=== PATIENT | female | born 1965 | race Caucasian/White ===

== ENCOUNTER 2016-03-31 13:11 | Emergency (ER) | payer OTHER ==
--- NOTE | 2016-03-31 14:16 | ED ---
General Adult HPI - General Chief complaint: Skin/Abscess/Foreign Body Stated complaint: hand pain/swollen Time Seen by Provider: 03/31/16 14:09 Source: patient, RN notes reviewed Mode of arrival: ambulatory Limitations: no limitations - History of Present Illness Initial comments: This is a 50-year-old female presents with right hand redness and swelling 2 days. Patient denies any known injury or hand. Patient states she woke up noticing erythema to the right hand. Patient states the last thing she was doing before she noticed the redness was moving boxes at her basement. Patient states the pain is worse with flexion and extension of the wrist. Patient denies noticing any insect bite. Patient denies any history of MRSA. Patient states she had a stroke in April and has had weakness in the right hand since then but this is not worse. Patient denies any known ALLERGIES except for to Dilaudid. Patient denies any recent fever, chills, shortness breath, chest pain, abdominal pain, nausea/vomiting/diarrhea, back pain, hematuria, headache , or visual changes, or any other complaints. - Related Data Home Medications Medication Instructions Recorded Confirmed OLANZapine [ZyPREXA] 20 mg PO HS 10/22/15 03/31/16 Topiramate [Topamax] 100 mg PO QAM 10/22/15 03/31/16 Cholecalciferol [Vitamin D3] 1,000 unit PO DAILY 02/17/16 03/31/16 Gabapentin [Neurontin] 300 mg PO TID 02/17/16 03/31/16 Insulin Glargine [Lantus] 30 unit SQ BID 02/17/16 03/31/16 metFORMIN HCL [Glucophage] 500 mg PO TID 02/17/16 03/31/16 Venlafaxine HCl [Effexor XR] 300 mg PO QAM 03/31/16 03/31/16 Previous Rx's Medication Instructions Recorded Cephalexin [Keflex] 500 mg PO Q6H 7 Days 03/31/16 Allergies Allergy/AdvReac Type Severity Reaction Status Date / Time hydromorphone HCl Allergy Unknown Rash/Hives Verified 03/31/16 14:03 [From Dilaudid] Review of Systems ROS Statement: Those systems with pertinent positive or pertinent negative responses have been documented in the HPI. ROS Other: All systems not noted in ROS Statement are negative. Past Medical History Past Medical History: CVA/TIA, Diabetes Mellitus, Hyperlipidemia, Hypertension Additional Past Medical History / Comment(s): alcoholism, HEPATITIS, gestational diabetes, stroke in 04/2015 with right sided weakness History of Any Multi-Drug Resistant Organisms: None Reported Past Surgical History: Cholecystectomy, Tonsillectomy, Tubal Ligation Additional Past Surgical History / Comment(s): eshophogus surgery Past Anesthesia/Blood Transfusion Reactions: No Reported Reaction Past Psychological History: Bipolar, Depression, PTSD Smoking Status: Current every day smoker Past Alcohol Use History: None Reported Past Drug Use History: None Reported - Past Family History Mother Additional Family Medical History / Comment(s): "[place] hunington disease" General Exam - General Exam Comments Initial Comments: General: The patient is awake and alert, in no distress, and does not appear acutely ill. Neck: The neck is supple, there is no tenderness or JVD. Cardiovascular: There is a regular rate and rhythm. No murmur, rub or gallop is appreciated. Respiratory: Lungs are clear to auscultation, respirations are non-labored, breath sounds are equal. No wheezes, stridor, rales, or rhonchi. Musculoskeletal: Limited range of motion with flexion and extension of the right wrist. Patient is able to ask next in the digits of the right hand. He is tenderness to palpation over the dorsal aspect of the right hand along the lateral and midline aspects of the right hand. There is erythema localized swelling to these areas as well. There is also erythema and tenderness over the dorsal aspect of the right wrist. Strength 4/5 and Sensation intact. Radial pulses 2+ bilaterally. Capillary refill is normal at less than 2 seconds. Neurological: A&O x 3. CN II-XII intact, There are no obvious motor or sensory deficits. Coordination appears grossly intact. Speech is normal. Skin: There is erythema, swelling, warmth and tenderness to the dorsal aspect of the right wrist and right hand extending to the MCP joints of the third through fifth digits. Skin is warm and dry and no rashes or lesions are noted. Psychiatric: Normal mood and affect. Limitations: no limitations Course Vital Signs 03/31/16 13:43 Temperature 99 F Pulse Rate 74 Respiratory 20 Rate Blood Pressure 125/79 O2 Sat by Pulse 96 Oximetry Medical Decision Making - Medical Decision Making Physical 1-year-old female presents with right hand pain 2 days. On physical exam there is erythema, swelling, warmth and tenderness to the dorsal aspect of the right wrist and right hand extending to the MCP joints of the third through fifth digits. Patient is able to flex and extend the right wrist but with limited range of motion. Strength is 4/5, she has had weakness to the right hand since her past stroke in April 2015. Sensation is intact and radial pulses are 2+ bilaterally. Capillary refill is less than 2 seconds. She is afebrile in the EC today. X-ray of the right hand was done and reviewed showing: No definite acute fracture or dislocation if symptoms persist, follow-up study in 7-10 days would be suggested. Reported by Dr. Segovia. Discussed with patient the results and the patient will be put on a course of Keflex for cellulitis. Redness was traced with a black marker. Discussed over- the-counter Tylenol and/or Motrin as needed for any pain. Asked to rest, ice/ warm compresses, elevation to the right hand. Discussed return parameters. Discussed that patient should follow up with PCP in one to 2 days or return to the [facility] for any worsening symptoms or for any further concerns. Patient was receptive to this plan and patient will be discharged home. Disposition Clinical Impression: Cellulitis Disposition: HOME SELF-CARE Condition: Good Instructions: Cellulitis (ED) Additional Instructions: Please rest, ice/warm compresses, elevate. Please finish entire course of antibiotics. Please use [id number] Tylenol or Motrin as needed for any pain. Please use medication as discussed. Please follow-up with family doctor in the next 2 days of symptoms have not improved. Please return to emergency room if the symptoms increase or worsen or for any other concerns. Prescriptions: Cephalexin [Keflex] 500 mg PO Q6H 7 Days Referrals: None,Stated [Primary Care Provider] - 1-2 days Time of Disposition: 14:45
--- NOTE | 2016-03-31 14:28 | XR ---
EXAMINATION TYPE: XR hand complete RT DATE OF EXAM: 03/31/2016 2:23 PM COMPARISON: NONE HISTORY: Right FINDINGS: The osseous structures are intact. The joint spaces are preserved and there is no acute fracture or dislocation. Diffuse osteopenia noted. IMPRESSION: 1. No definite acute fracture or dislocation if symptoms persist, follow-up study in 7 to 10 days wo uld be suggested
[2016-03-31 14:54] VITALS: RESP 20
[2016-03-31 15:15] VITALS: BP 124/78; PULSE 71; TEMP 98
== END 2016-03-31 15:15 | disposition home or self-care (01) ==
LOC: EC 13:11
DX: L03.113 Cellulitis of right upper limb (principal); I69.351 Hemiplegia and hemiparesis following cerebral infarction affecting right dominant side; Z79.899 Other long term (current) drug therapy; Z79.4 Long term (current) use of insulin; Z79.84 Long term (current) use of oral hypoglycemic drugs; Z88.5 Allergy status to narcotic agent; E11.9 Type 2 diabetes mellitus without complications; F31.9 Bipolar disorder, unspecified; F43.10 Post-traumatic stress disorder, unspecified; F17.200 Nicotine dependence, unspecified, uncomplicated
CPT/HCPCS: 99283

== ENCOUNTER 2016-06-14 19:44 | Inpatient (IN) | payer OTHER ==
[2016-06-14] MEDS: MIDAZOLAM (PF) 1 MG/ML 5 ML VIAL IV STA ×4 (19:57→21:08)
[2016-06-14] MEDS ORDERED: SODIUM CHLORIDE 0.9% 1,000 ML IV STA (20:01)
[2016-06-14] MEDS ORDERED: SODIUM CHLORIDE 0.9% 500 ML IV STA (20:01)
--- NOTE | 2016-06-14 20:07 | ED ---
General Adult HPI - General Chief complaint: Altered Mental Status Stated complaint: unresponsive Time Seen by Provider: 06/14/16 20:01 Source: old records reviewed Mode of arrival: ambulatory Limitations: altered mental status - History of Present Illness Initial comments: This is a Letty Houser dropped off in emergency room after she was found unresponsive at [facility], no history is able to be obtained, Haitians brought in cyanotic apneic and pulseless - Related Data Allergies Allergy/AdvReac Type Severity Reaction Status Date / Time Unable to Assess Allergy Verified 06/14/16 20:06 Review of Systems ROS Statement: Those systems with pertinent positive or pertinent negative responses have been documented in the HPI. ROS Other: All systems not noted in ROS Statement are negative. Past Medical History Past Medical History: Unable to Obtain History of Any Multi-Drug Resistant Organisms: None Reported Past Surgical History: Unable to Obtain Past Psychological History: No Psychological Hx Reported Smoking Status: Unknown if ever smoked Past Drug Use History: Heroin General Exam Limitations: altered mental status General appearance: lethargic, obtunded, in distress Head exam: Present: atraumatic, normocephalic, normal inspection Eye exam: Present: other ([place]) ENT exam: Present: normal exam, mucous membranes moist Neck exam: Present: normal inspection. Absent: tenderness, meningismus, lymphadenopathy Respiratory exam: Present: respiratory distress, other (Apnea). Absent: wheezes , rales, rhonchi, stridor Cardiovascular Exam: Present: regular rate, normal rhythm, normal heart sounds. Absent: systolic murmur, diastolic murmur, rubs, gallop, clicks GI/Abdominal exam: Present: soft, normal bowel sounds. Absent: distended, tenderness, guarding, rebound, rigid Extremities exam: Present: normal inspection, full ROM, normal capillary refill. Absent: tenderness, pedal edema, joint swelling, calf tenderness Back exam: Present: normal inspection Neurological exam: Present: altered Psychiatric exam: Present: depressed Skin exam: Present: cyanosis, pallor, mottled Course Vital Signs 06/14/16 06/14/16 06/14/16 19:50 20:14 20:31 Temperature 97.8 F 97.1 F L Pulse Rate 94 105 H 94 Respiratory 6 L 14 14 Rate Blood Pressure 169/85 122/58 90/54 O2 Sat by Pulse 99 100 100 Oximetry 06/14/16 20:48 Temperature Pulse Rate 98 Respiratory 14 Rate Blood Pressure 114/66 O2 Sat by Pulse 100 Oximetry - Reevaluation(s) Reevaluation #1: 06/14/16 20:04 Patient apneic, cyanotic upon arrival, patient had CPR initiated here in the emergency room secondary loss of pulse and apnea. Patient was intubated as she was not breathing. Reevaluation #2: 06/14/16 20:05 Patient did start to get circulation back with bagging and intubation as well as CPR Reevaluation #3: 06/14/16 20:05 Patient is seem initial response to Narcan Reevaluation #4: 06/14/16 20:57 Patient is not completely awaking the Narcan to be safe to be. Extubate EKG Findings - EKG Comments: EKG Findings:: EKG shows normal sinus rhythm rate of 94, CO 160, QRS 96, QTc 462 Procedures - Intubation Time Out Performed: Yes Laryngoscope: Bala Size: 4 ET Tube Size: 7 ET Tube Uncuffed: Yes Tube Secured Location: teeth Tube Placement Confirmation: visualized tube passing through cords, equal breath sounds bilaterally, no breath sounds over epigastrium Patient Tolerated Procedure: well Intubation Complications: none Medical Decision Making - Medical Decision Making Unknown aged female coming in status post suspected overdose, suspected heroin overdose, patient was apneic and cardiopulmonary arrest and will be admitted for continued monitoring and ICU care, hemodynamic support. - Lab Data Result diagrams: 06/14/16 20:00 06/14/16 20:00 Lab Results 06/14/16 06/14/16 06/14/16 Range/Units 19:50 20:00 20:00 WBC 16.1 H (3.8-10.6) k/uL RBC 4.79 (3.80-5.40) m/uL Hgb 15.0 (11.4-16.0) gm/dL Hct 45.8 (34.0-46.0) % MCV 95.6 (80.0-100.0) fL MCH 31.4 (25.0-35.0) pg MCHC 32.8 (31.0-37.0) g/dL RDW 14.3 (11.5-15.5) % Plt Count 275 (150-450) k/uL Neutrophils % 38 % Lymphocytes % 51 % Monocytes % 5 % Eosinophils % 2 % Basophils % 1 % Neutrophils # 6.1 (1.3-7.7) k/uL Lymphocytes # 8.1 H (1.0-4.8) k/uL Monocytes # 0.8 (0-1.0) k/uL Eosinophils # 0.4 (0-0.7) k/uL Basophils # 0.1 (0-0.2) k/uL PT (9.0-12.0) sec INR (<1.1) APTT (22.0-30.0) sec Sample Site ABG pH (7.35-7.45) ABG pCO2 (35-45) mmHg ABG pO2 (83-108) mmHg ABG HCO3 (21-25) mmol/L ABG Total CO2 (19-24) mmol/L ABG O2 Saturation (94-97) % ABG Base Excess mmol/L FiO2 % Sodium (137-145) mmol/L Potassium (3.5-5.1) mmol/L Chloride (98-107) mmol/L Carbon Dioxide (22-30) mmol/L Anion Gap mmol/L BUN (7-17) mg/dL Creatinine (0.52-1.04) mg/dL Est GFR (MDRD) Af Amer (>60 ml/min/1.73 sqM) Est GFR (MDRD) Non-Af (>60 ml/min/1.73 sqM) Glucose (74-99) mg/dL POC Glucose (mg/dL) 181 H (75-99) mg/dL POC Glu Assistant Professor Of Psychology ID Ani Barrera Calcium (8.4-10.2) mg/dL Phosphorus (2.5-4.5) mg/dL Magnesium (1.6-2.3) mg/dL Total Bilirubin (0.2-1.3) mg/dL AST (14-36) U/L ALT (9-52) U/L Alkaline Phosphatase (38-126) U/L Total Creatine Kinase 130 (30-135) U/L CK-MB (CK-2) 2.1 (0.0-2.4) ng/mL CK-MB (CK-2) Rel Index 1.6 Troponin I <0.012 (0.000-0.034) ng/mL Total Protein (6.3-8.2) g/dL Albumin (3.5-5.0) g/dL Urine Color Urine Appearance (Clear) Urine pH (5.0-8.0) Ur Specific [place] (1.001-1.035) Urine Protein (Negative) Urine Glucose (UA) (Negative) Urine Ketones (Negative) Urine Blood (Negative) Urine Nitrite (Negative) Urine Bilirubin (Negative) Urine Urobilinogen (<2.0) mg/dL Ur Leukocyte Esterase (Negative) Urine RBC (0-5) /hpf Urine WBC (0-5) /hpf Ur Squamous Epith Cells (0-4) /hpf Amorphous Sediment (None) /hpf Hyaline Casts (0-2) /lpf Urine Mucus (None) /hpf 06/14/16 06/14/16 06/14/16 Range/Units 20:00 20:00 20:15 WBC (3.8-10.6) k/uL RBC (3.80-5.40) m/uL Hgb (11.4-16.0) gm/dL Hct (34.0-46.0) % MCV (80.0-100.0) fL MCH (25.0-35.0) pg MCHC (31.0-37.0) g/dL RDW (11.5-15.5) % Plt Count (150-450) k/uL Neutrophils % % Lymphocytes % % Monocytes % % Eosinophils % % Basophils % % Neutrophils # (1.3-7.7) k/uL Lymphocytes # (1.0-4.8) k/uL Monocytes # (0-1.0) k/uL Eosinophils # (0-0.7) k/uL Basophils # (0-0.2) k/uL PT 10.7 (9.0-12.0) sec INR 1.1 (<1.1) APTT 25.9 (22.0-30.0) sec Sample Site LRA ABG pH 7.11 L* (7.35-7.45) ABG pCO2 53 H (35-45) mmHg ABG pO2 329 H (83-108) mmHg ABG HCO3 16 L (21-25) mmol/L ABG Total CO2 18 L (19-24) mmol/L ABG O2 Saturation 99.8 H (94-97) % ABG Base Excess 11.6 mmol/L FiO2 100 % Sodium 138 (137-145) mmol/L Potassium 4.6 (3.5-5.1) mmol/L Chloride 102 (98-107) mmol/L Carbon Dioxide 14 L (22-30) mmol/L Anion Gap 22 mmol/L BUN 16 (7-17) mg/dL Creatinine 0.83 (0.52-1.04) mg/dL Est GFR (MDRD) Af Amer >60 (>60 ml/min/1.73 sqM) Est GFR (MDRD) Non-Af >60 (>60 ml/min/1.73 sqM) Glucose 177 H (74-99) mg/dL POC Glucose (mg/dL) (75-99) mg/dL POC Glu Assistant Professor Of Psychology ID Calcium 8.8 (8.4-10.2) mg/dL Phosphorus 6.4 H (2.5-4.5) mg/dL Magnesium 1.8 (1.6-2.3) mg/dL Total Bilirubin 0.8 (0.2-1.3) mg/dL AST 111 H (14-36) U/L ALT 90 H (9-52) U/L Alkaline Phosphatase 183 H (38-126) U/L Total Creatine Kinase (30-135) U/L CK-MB (CK-2) (0.0-2.4) ng/mL CK-MB (CK-2) Rel Index Troponin I (0.000-0.034) ng/mL Total Protein 7.4 (6.3-8.2) g/dL Albumin 4.1 (3.5-5.0) g/dL Urine Color Urine Appearance (Clear) Urine pH (5.0-8.0) Ur Specific [place] (1.001-1.035) Urine Protein (Negative) Urine Glucose (UA) (Negative) Urine Ketones (Negative) Urine Blood (Negative) Urine Nitrite (Negative) Urine Bilirubin (Negative) Urine Urobilinogen (<2.0) mg/dL Ur Leukocyte Esterase (Negative) Urine RBC (0-5) /hpf Urine WBC (0-5) /hpf Ur Squamous Epith Cells (0-4) /hpf Amorphous Sediment (None) /hpf Hyaline Casts (0-2) /lpf Urine Mucus (None) /hpf 03/19/17 Range/Units 20:22 WBC (3.8-10.6) k/uL RBC (3.80-5.40) m/uL Hgb (11.4-16.0) gm/dL Hct (34.0-46.0) % MCV (80.0-100.0) fL MCH (25.0-35.0) pg MCHC (31.0-37.0) g/dL RDW (11.5-15.5) % Plt Count (150-450) k/uL Neutrophils % % Lymphocytes % % Monocytes % % Eosinophils % % Basophils % % Neutrophils # (1.3-7.7) k/uL Lymphocytes # (1.0-4.8) k/uL Monocytes # (0-1.0) k/uL Eosinophils # (0-0.7) k/uL Basophils # (0-0.2) k/uL PT (9.0-12.0) sec INR (<1.1) APTT (22.0-30.0) sec Sample Site ABG pH (7.35-7.45) ABG pCO2 (35-45) mmHg ABG pO2 (83-108) mmHg ABG HCO3 (21-25) mmol/L ABG Total CO2 (19-24) mmol/L ABG O2 Saturation (94-97) % ABG Base Excess mmol/L FiO2 % Sodium (137-145) mmol/L Potassium (3.5-5.1) mmol/L Chloride (98-107) mmol/L Carbon Dioxide (22-30) mmol/L Anion Gap mmol/L BUN (7-17) mg/dL Creatinine (0.52-1.04) mg/dL Est GFR (MDRD) Af Amer (>60 ml/min/1.73 sqM) Est GFR (MDRD) Non-Af (>60 ml/min/1.73 sqM) Glucose (74-99) mg/dL POC Glucose (mg/dL) (75-99) mg/dL POC Glu Assistant Professor Of Psychology ID Calcium (8.4-10.2) mg/dL Phosphorus (2.5-4.5) mg/dL Magnesium (1.6-2.3) mg/dL Total Bilirubin (0.2-1.3) mg/dL AST (14-36) U/L ALT (9-52) U/L Alkaline Phosphatase (38-126) U/L Total Creatine Kinase (30-135) U/L CK-MB (CK-2) (0.0-2.4) ng/mL CK-MB (CK-2) Rel Index Troponin I (0.000-0.034) ng/mL Total Protein (6.3-8.2) g/dL Albumin (3.5-5.0) g/dL Urine Color Yellow Urine Appearance Cloudy H (Clear) Urine pH 5.5 (5.0-8.0) Ur Specific [place] 1.014 (1.001-1.035) Urine Protein Trace H (Negative) Urine Glucose (UA) Negative (Negative) Urine Ketones Negative (Negative) Urine Blood Negative (Negative) Urine Nitrite Negative (Negative) Urine Bilirubin Negative (Negative) Urine Urobilinogen <2.0 (<2.0) mg/dL Ur Leukocyte Esterase Negative (Negative) Urine RBC <1 (0-5) /hpf Urine WBC 1 (0-5) /hpf Ur Squamous Epith Cells 4 (0-4) /hpf Amorphous Sediment Rare H (None) /hpf Hyaline Casts 53 H (0-2) /lpf Urine Mucus Rare H (None) /hpf - Radiology Data Radiology results: report reviewed (Chest x-ray shows positive ET tube placement ), image reviewed Critical Care Time Critical Care Time: Yes Total Critical Care Time: 65 Disposition Clinical Impression: Altered mental status, Drug overdose, Apnea, Hypoxia, Acute respiratory failure , Heroin overdose, Cardiopulmonary arrest Disposition: ADMITTED IP TO THIS [facility] Condition: Critical Referrals: None,Stated [Primary Care Provider] - 1-2 days
[2016-06-14] MEDS ORDERED: NALOXONE 0.4 MG/ML 10 ML VIAL IM STA (20:09)
[2016-06-14 20:10] LABS: Glucose,Whole Blood 181 mg/dL (75-99)
[2016-06-14 20:13] LABS: Basophils # (A) 0.1 k/uL (0-0.2); Basophils % (A) 1 %; CH 30.8; CHCM 32.4; Eosinophils # (A) 0.4 k/uL (0-0.7); Eosinophils % (A) 2 %; HCT 45.8 % (34.0-46.0); HDW 2.98; Luc # (Auto) 0.54; Luc % (Auto) 3; Lymphocytes # (A) 8.1 k/uL (1.0-4.8); Lymphocytes % (A) 51 %; MCH 31.4 pg (25.0-35.0); MCHC 32.8 g/dL (31.0-37.0); MCV 95.6 fL (80.0-100.0); Mean Platelet Volume 7.3; Monocytes # (A) 0.8 k/uL (0-1.0); Monocytes % (A) 5 %; Neutrophils # (A) 6.1 k/uL (1.3-7.7); Neutrophils % (A) 38 %; RBC 4.79 m/uL (3.80-5.40); RDW 14.3 % (11.5-15.5); WBC 16.1 k/uL (3.8-10.6); WBC (Perox) 15.68
--- NOTE | 2016-06-14 20:17 | XR ---
EXAMINATION TYPE: XR chest 1V portable DATE OF EXAM: 06/14/2016 8:10 PM COMPARISON: NONE HISTORY: Unresponsive had to be intubated TECHNIQUE: Single AP portable frontal supine view of the chest is obtained. FINDINGS: There is endotracheal tube with tip at inferior aortic knob level recommend pulling back 4 to 5 cm. Lungs are grossly clear without pleural effusion or pneumothorax seen bilaterally. Cardiac s ilhouette size is felt within normal limits. There is rib anomaly or fusion posterior right fifth and sixth ribs noted. IMPRESSION: 1. ET tube is just above nickie, recommend pulling back 4 to 5 cm. 2. No acute pulmonary process is evident.
[2016-06-14 20:19] LABS: ALT 90 U/L (9-52); AST 111 U/L (14-36); Alkaline Phosphatase 183 U/L (38-126); Anion Gap 22 mmol/L; Blood Urea Nitrogen 16 mg/dL (7-17); Calcium 8.8 mg/dL (8.4-10.2); Carbon Dioxide 14 mmol/L (22-30); Chloride 102 mmol/L (98-107); Glucose 177 mg/dL (74-99); Magnesium 1.8 mg/dL (1.6-2.3); Non-African American GFR(MDRD) >60 (>60 ml/min/1.73 sqM); Phosphorous 6.4 mg/dL (2.5-4.5); Potassium 4.6 mmol/L (3.5-5.1); Sodium 138 mmol/L (137-145); Total Bilirubin 0.8 mg/dL (0.2-1.3); Total Protein 7.4 g/dL (6.3-8.2)
[2016-06-14] MEDS ORDERED: NALOXONE 0.4 MG/ML 10 ML VIAL IVP STA (20:26)
[2016-06-14 20:30] LABS: Creatine Kinase 130 U/L (30-135)
[2016-06-14 20:32] LABS: INR 1.1 (<1.1); Prothrombin Time 10.7 sec (9.0-12.0)
[2016-06-14 20:33] LABS: Partial Thromboplastin Time 25.9 sec (22.0-30.0)
[2016-06-14 20:41] LABS: Amorphous Sediment,Urine Rare /hpf; Appearance,Urine Cloudy (Clear); Bilirubin,Urine Negative (Negative); Glucose,Urine (UA) Negative (Negative); Ketones,Urine Negative (Negative); Leukocyte Esterase,Urine Negative (Negative); Mucus,Urine Rare /hpf; Nitrite,Urine Negative (Negative); PH, Urine 5.5 (5.0-8.0); Particle Count 8005; Protein,Urine Trace (Negative); RBC,Urine <1 /hpf (0-5); Specific Gravity,Urine 1.014 (1.001-1.035); Squamous Epithelial Cell,Urine 4 /hpf (0-4); UA Billing (MACRO vs. MICRO) MICRO; Urobilinogen,Urine <2.0 mg/dL (<2.0); WBC,Urine 1 /hpf (0-5)
[2016-06-14 20:43] LABS: Creatine Kinase MB 2.1 ng/mL (0.0-2.4); Troponin I <0.012 ng/mL (0.000-0.034)
[2016-06-14] MEDS ORDERED: NALOXONE 0.4 MG/ML 1 ML VIAL IV PRN (20:53)
[2016-06-14 20:55] LABS: ABG Base Excess 11.6 mmol/L; ABG HCO3 16 mmol/L (21-25); ABG Oxygen Saturation 99.8 % (94-97); ABG PCO2 53 mmHg (35-45); ABG PH 7.11 (7.35-7.45); ABG PO2 329 mmHg (83-108); ABG TCO2 18 mmol/L (19-24)
[2016-06-14] MEDS ORDERED: MIDAZOLAM 2 MG/2 ML VIAL IV ONE (20:58)
[2016-06-14] MEDS ORDERED: fentaNYL (PF) 50 MCG/ML 2 ML AMP IV PRN (20:59)
[2016-06-14] MEDS: DEXTROSE 5%-0.45% NACL 1,000 ML IV SCH (21:07)
[2016-06-14 22:01] LABS: Glucose,Whole Blood 170 mg/dL (75-99)
[2016-06-14] MEDS ORDERED: SODIUM CHLORIDE 0.9% 1,000 ML IV ONE (22:56)
[2016-06-15] MEDS ORDERED: PROPOFOL 50 ML IV ONE (00:16)
[2016-06-15] MEDS: PROPOFOL 500 MG in EMPTY BAG 1 BAG IV SCH ×3 (00:45→07:01)
--- NOTE | 2016-06-15 02:52 | CT ---
EXAM: CT Head Without Intravenous Contrast. CLINICAL HISTORY: Altered mental status, unresponsive TECHNIQUE: Axial computed tomography images of the head/brain without intravenous contrast. CTDI is 60.30 mGy and DLP is 1090.40 mGy-cm COMPARISON: No relevant prior studies available. FINDINGS: Brain: No acute intracranial hemorrhage, loss of kamara-white differentiation, or significant mass effect. Encephalomalacia in the left cerebral hemisphere is compatible with remote insult. Subcentimeter foci of hypoattenuation in bilateral basal ganglia are nonspecific, possibly remote lacunar infarcts or prominent perivascular spaces. Ventricles: Unremarkable. No ventriculomegaly. Bones/joints: Unremarkable. No acute fracture. Soft tissues: Unremarkable. Sinuses: Mild mucosal thickening is present in the ethmoid sinuses. Mastoid air cells: Unremarkable. IMPRESSION: No acute intracranial abnormality. Chronic and involutional changes are noted.
[2016-06-15 04:31] VITALS: BMI 29.0
[2016-06-15 05:06] LABS: Basophils % (A) 1 %; CH 31.2; CHCM 33.9; Eosinophils # (A) 0.1 k/uL (0-0.7); Eosinophils % (A) 1 %; HCT 40.3 % (34.0-46.0); HGB 13.3 gm/dL (11.4-16.0); Luc # (Auto) 0.16; Luc % (Auto) 2; Lymphocytes # (A) 1.8 k/uL (1.0-4.8); Lymphocytes % (A) 26 %; MCH 30.4 pg (25.0-35.0); MCHC 32.9 g/dL (31.0-37.0); MCV 92.5 fL (80.0-100.0); Mean Platelet Volume 6.6; Monocytes # (A) 0.3 k/uL (0-1.0); Monocytes % (A) 5 %; Neutrophils # (A) 4.4 k/uL (1.3-7.7); Neutrophils % (A) 65 %; RBC 4.35 m/uL (3.80-5.40); RDW 14.4 % (11.5-15.5); WBC 6.8 k/uL (3.8-10.6); WBC (Perox) 7.01
[2016-06-15 05:20] LABS: ALT 80 U/L (9-52); AST 89 U/L (14-36); Alkaline Phosphatase 148 U/L (38-126); Anion Gap 8 mmol/L; Blood Urea Nitrogen 14 mg/dL (7-17); Calcium 7.9 mg/dL (8.4-10.2); Carbon Dioxide 24 mmol/L (22-30); Chloride 107 mmol/L (98-107); Glucose 163 mg/dL (74-99); Magnesium 1.9 mg/dL (1.6-2.3); Non-African American GFR(MDRD) >60 (>60 ml/min/1.73 sqM); Phosphorous 4.4 mg/dL (2.5-4.5); Potassium 4.2 mmol/L (3.5-5.1); Sodium 139 mmol/L (137-145); Total Bilirubin 0.6 mg/dL (0.2-1.3); Total Protein 5.8 g/dL (6.3-8.2)
[2016-06-15 05:30] LABS: ABG Base Excess -0.3 mmol/L; ABG HCO3 25 mmol/L (21-25); ABG PCO2 46 mmHg (35-45); ABG PH 7.35 (7.35-7.45); ABG PO2 123 mmHg (83-108); ABG TCO2 26 mmol/L (19-24)
[2016-06-15] MEDS: MAGNESIUM SULFATE-D5W PMX 1 GM in DEXTROSE/WATER 1 100ML.BAG IVPB SCH ×2 (06:08→07:01)
[2016-06-15] MEDS: DEXTROSE 5%-0.45% NACL 1,000 ML IV SCH (06:09)
[2016-06-15] MEDS: IPRATROPIUM-ALBUTEROL 3 ML NEB INHALATION SCH ×4 (07:06→20:24)
[2016-06-15] MEDS: PANTOPRAZOLE 40 MG/10 ML VIAL IV SCH (08:17)
[2016-06-15] MEDS: ENOXAPARIN 40 MG/0.4 ML SYRINGE SQ SCH (08:42)
[2016-06-15] MEDS ORDERED: CHLORHEXIDINE GLUCONATE 15 ML CUP MUCOUS MEM SCH (09:00)
[2016-06-15] MEDS ORDERED: LORazepam 2 MG/ML SYRINGE IV PRN ×3 (09:08)
[2016-06-15] MEDS ORDERED: THIAMINE 100 MG/ML 2 ML VIAL IM STA (09:08)
--- NOTE | 2016-06-15 09:17 | XR ---
EXAMINATION TYPE: XR chest 1V DATE OF EXAM: 06/15/2016 6:40 AM COMPARISON: Prior chest x-ray 14 June 2016 HISTORY: Intubated TECHNIQUE: Single frontal view of the chest is obtained. FINDINGS: Endotracheal tube, NG tube and overlying cardiac leads are again noted. There is no pneumo thorax or pleural effusion. Cardiomediastinal silhouette, pulmonary vascularity and trev are within n ormal limits. No focal pneumonia. IMPRESSION: Endotracheal tube is superimposed over an appropriate position.
[2016-06-15] MEDS: SODIUM CHLORIDE 0.9% 1,000 ML IV SCH ×2 (13:21→23:35)
--- NOTE | 2016-06-15 15:35 | P.CNPUL ---
History of Present Illness Consult date: 06/15/16 Requesting physician: Joel Lopez Reason for consult: other (Acute respiratory failure) Chief complaint: Unresponsiveness History of present illness: This is a 50-year-old female with history of alcohol abuse, IV drug abuse, patient was brought into the ER unresponsive. Upon arrival the patient was intubated, and she was positive for opiates. Patient remained on mechanical ventilation overnight, and her initial ABG upon intubation showed a pO2 of 329 pCO2 of 53 pH of 7.11. Follow-up ABG this morning showed a pO2 of 123 pCO2 of 46 pH of 7.35. Patient did not receive any sedation overnight, and upon my evaluation, the patient was arousable, she was given a short weaning trial at bedside, and her weaning parameters were excellent. I reviewed her chest x-ray , her labs, and I recommended extubation. In the meantime patient will be placed on Dilacor withdrawal protocol, and she will need to be monitored at least for the next 24 hours in the intensive care unit setting. No history could be obtained from the patient. Review of Systems ROS unobtainable: due to endotracheal tube Past Medical History Past Medical History: CVA/TIA, Hyperlipidemia, Hypertension, Liver Disease History of Any Multi-Drug Resistant Organisms: None Reported Past Surgical History: Cholecystectomy, Tonsillectomy, Tubal Ligation Additional Past Surgical History / Comment(s): esophageal surgery Past Psychological History: Bipolar, Depression, PTSD Smoking Status: Unknown if ever smoked Past Alcohol Use History: Abuse Past Drug Use History: Heroin Medications and Allergies Allergies Allergy/AdvReac Type Severity Reaction Status Date / Time Unable to Assess Allergy Verified 06/14/16 20:06 Physical Exam Vitals: Vital Signs Temp Pulse Resp BP Pulse Ox 06/15/16 14:00 82 19 113/55 97 06/15/16 13:00 85 17 117/60 97 06/15/16 12:00 98.7 F 86 16 110/54 97 06/15/16 11:10 69 06/15/16 11:00 21 126/63 95 06/15/16 10:57 71 06/15/16 10:50 18 126/63 94 L 06/15/16 10:40 23 126/63 93 L 06/15/16 10:30 83 28 H 117/62 96 06/15/16 10:20 82 16 117/62 97 06/15/16 10:10 93 13 117/62 99 06/15/16 10:00 75 16 124/61 99 06/15/16 09:50 90 13 124/61 99 06/15/16 09:40 75 16 124/61 98 06/15/16 09:30 78 19 114/61 97 06/15/16 09:00 76 16 133/70 96 06/15/16 08:00 99.0 F 85 22 116/59 100 06/15/16 07:25 74 06/15/16 07:07 89 06/15/16 07:00 76 16 102/57 97 06/15/16 06:00 73 16 102/60 97 06/15/16 05:00 74 16 104/62 98 06/15/16 04:00 98.4 F 77 16 101/50 97 06/15/16 03:00 79 16 91/50 96 06/15/16 02:00 105/56 98 06/15/16 01:00 98 20 117/64 97 06/15/16 00:00 98.4 F 84 16 100/52 97 06/14/16 23:00 88 16 90/47 97 06/14/16 22:00 93 20 121/61 100 06/14/16 21:52 93 17 06/14/16 21:13 97.2 F L 92 16 106/55 100 Intake and Output 06/15/16 06/15/16 06/15/16 06:59 14:59 22:59 Intake Total 1743.091 973.611 Output Total 1380 525 Balance 363.091 448.611 Intake: IV 600 800 0.9 NACL 600 Dextrose 5%-0.45% NaCl 1, 600 200 000 ml @ 100 mls/hr IV . Q10H [facility] Rx#:[id number] Intake, IV Titration 1143.091 173.611 Amount Magnesium Sulfate-D5w Pmx 100 100 1 gm In Dextrose/Water 1 100ml.bag @ 100 mls/hr IVPB Q1H [facility] Rx#: [id number] Propofol 500 mg In Empty 43.091 73.611 Bag 1 bag @ Titrate IV . Q0M [facility] Rx#:[id number] Sodium Chloride 0.9% 1, 1000 000 ml @ 999 mls/hr IV . Q1H1M ONE Rx#:[id number] Output: Urine 1380 525 Other: Voiding Method Indwelling Catheter Indwelling Catheter Weight 78.5 kg Physical Exam: Revealed a 50-year-old female in no distress HEENT:[Neck is supple.] [No neck masses.] [No thyromegaly.] [No JVD.] Chest: [Clear throughout, no crackles, no rhonchi, no wheezes.] Cardiac Exam: [Normal S1 and S2, no S3 gallop, no murmur.] Abdomen: [Soft, nontender, no megaly, no rebound, no guarding, normal bowel sounds.] Extremities: [No clubbing, no edema, no cyanosis.] Neurological Exam: Patient is arousable, and she follows simple instructions while on mechanical ventilation. Results - Laboratory Findings CBC and BMP: 06/15/16 04:13 06/15/16 04:13 ABG ABG pH 7.35 (7.35-7.45) 06/15/16 05:28 ABG pCO2 46 mmHg (35-45) H 06/15/16 05:28 ABG pO2 123 mmHg (83-108) H 06/15/16 05:28 ABG O2 Saturation 98.0 % (94-97) H 06/15/16 05:28 PT/INR, D-dimer PT 10.7 sec (9.0-12.0) 06/14/16 20:00 INR 1.1 (<1.1) 06/14/16 20:00 Abnormal lab findings: Abnormal Labs 06/14/16 06/15/16 06/15/16 21:59 04:13 05:28 ABG pCO2 46 H ABG pO2 123 H ABG Total CO2 26 H ABG O2 Saturation 98.0 H Glucose 163 H POC Glucose (mg/dL) 170 H Calcium 7.9 L AST 89 H ALT 80 H Alkaline Phosphatase 148 H Total Protein 5.8 L Albumin 3.0 L - Diagnostic Findings Chest x-ray: image reviewed (No evidence of pneumonia) Additional studies: CT of the brain was also unremarkable Assessment and Plan Plan: Impression: Acute hypercapnic respiratory failure secondary to narcotics overdose. Requiring intubation and mechanical ventilation overnight. History of alcohol abuse and IV drug abuse. Recommendation: Patient will be weaned and extubated today, however we'll continue GI and DVT prophylaxis, continue slab conditioner supervisor withdrawal protocol, and we' ll monitor in the ICU for the next 24 hours. Time with Patient: Greater than 30
[2016-06-15] MEDS: THIAMINE 100 MG TAB PO SCH (18:37)
[2016-06-16] MEDS: MORPHINE SULFATE 4 MG/ML SYRINGE IVP PRN ×5 (00:38→20:38)
[2016-06-16 05:03] LABS: Basophils % (A) 1 %; CHCM 33.5; Eosinophils # (A) 0.1 k/uL (0-0.7); Eosinophils % (A) 2 %; HCT 38.8 % (34.0-46.0); HDW 2.92; HGB 12.7 gm/dL (11.4-16.0); Luc # (Auto) 0.09; Luc % (Auto) 2; Lymphocytes # (A) 1.6 k/uL (1.0-4.8); Lymphocytes % (A) 35 %; MCH 30.5 pg (25.0-35.0); MCHC 32.8 g/dL (31.0-37.0); MCV 92.9 fL (80.0-100.0); Mean Platelet Volume 6.8; Monocytes # (A) 0.3 k/uL (0-1.0); Monocytes % (A) 6 %; Neutrophils # (A) 2.6 k/uL (1.3-7.7); Neutrophils % (A) 55 %; RBC 4.18 m/uL (3.80-5.40); RDW 14.4 % (11.5-15.5); WBC 4.7 k/uL (3.8-10.6); WBC (Perox) 5.18
[2016-06-16 05:19] LABS: ALT 67 U/L (9-52); AST 71 U/L (14-36); Alkaline Phosphatase 121 U/L (38-126); Anion Gap 5 mmol/L; Blood Urea Nitrogen 10 mg/dL (7-17); Calcium 7.8 mg/dL (8.4-10.2); Carbon Dioxide 24 mmol/L (22-30); Chloride 110 mmol/L (98-107); Glucose 168 mg/dL (74-99); Magnesium 1.8 mg/dL (1.6-2.3); Non-African American GFR(MDRD) >60 (>60 ml/min/1.73 sqM); Phosphorous 2.8 mg/dL (2.5-4.5); Potassium 3.7 mmol/L (3.5-5.1); Sodium 139 mmol/L (137-145); Total Bilirubin 0.6 mg/dL (0.2-1.3); Total Protein 5.5 g/dL (6.3-8.2)
[2016-06-16] MEDS ORDERED: Magnesium Replacement Protocol 1 EACH MISC MISCELLANE PRN (05:33)
[2016-06-16] MEDS ORDERED: Potassium Replacement Protocol 1 EACH MISC MISCELLANE PRN (05:33)
[2016-06-16] MEDS: POTASSIUM CHLORIDE 10 MEQ in WATER FOR INJECTION 1 100ML.BAG IVPB SCH ×2 (06:42→10:31)
[2016-06-16] MEDS: MAGNESIUM SULFATE-D5W PMX 1 GM in DEXTROSE/WATER 1 100ML.BAG IVPB SCH ×2 (06:42→10:31)
[2016-06-16] MEDS: IPRATROPIUM-ALBUTEROL 3 ML NEB INHALATION SCH ×4 (07:33→19:44)
[2016-06-16 09:11] LABS: Glucose,Whole Blood 201 mg/dL (75-99)
[2016-06-16] MEDS: SODIUM CHLORIDE 0.9% 1,000 ML IV SCH ×2 (10:31→17:36)
[2016-06-16] MEDS: ENOXAPARIN 40 MG/0.4 ML SYRINGE SQ SCH (10:32)
[2016-06-16] MEDS: AMOXIC-POT CLAV 875-125MG 1 EACH TAB PO SCH ×2 (10:32→20:38)
[2016-06-16] MEDS: PANTOPRAZOLE 40 MG/10 ML VIAL IV SCH (10:32)
[2016-06-16] MEDS: NICOTINE 21MG/24HR PATCH TRANSDERM SCH (10:52)
--- NOTE | 2016-06-16 11:38 | HP ---
A 50-year-old with history of alcohol abuse and IV drug use, although denied any alcohol abuse to me, came into the ER unresponsive and the patient was apparently using heroin and patient was intubated overnight and patient is clinically doing well, subsequently extubated. Today patient is CIWA protocol. I also started her on morphine for heroin withdrawal. Patient does have history of hepatitis C. The patient denied any fever, chills. Patient denied any cough, runny nose, abdominal pain, nausea, vomiting. REVIEW OF SYSTEMS: CONSTITUTIONAL: No fever, no malaise, no fatigue. HEENT: No recent visual problems or hearing problems. Denied any sore throat. CARDIOVASCULAR: No chest pain, orthopnea, PND, no palpitations, no syncope. PULMONARY: No shortness of breath, no cough, no hemoptysis. GASTROINTESTINAL: No diarrhea, no nausea, no vomiting, no abdominal pain. Normoactive bowel sounds. NEUROLOGICAL: No headaches, no weakness, no numbness. HEMATOLOGICAL: Denies any bleeding or petechiae. GENITOURINARY: Denies any burning micturition, frequency, or urgency. MUSCULOSKELETAL/RHEUMATOLOGICAL: Denies any joint pain, swelling, or any muscle pain. ENDOCRINE: Denies any polyuria or polydipsia. The rest of the 14 point review of systems is negative. PAST MEDICAL HISTORY: Significant for hyperlipidemia, hypertension, hepatitis C, chronic liver disease from hepatitis C, cholecystectomy, tonsillectomy, ( ) surgery, bipolar disorder, depression ( ), heroin abuse, although patient said she did use cocaine, but her urine cocaine is negative and alcohol abuse history, although she denied alcohol abuse history to me. FAMILY HISTORY: Significant for psychiatric problems. MEDICATIONS: None at home. ALLERGIES: None. PHYSICAL EXAMINATION: VITAL SIGNS: Temperature 98.2, pulse of 96, respiratory rate of 18, blood pressure 116/63, saturating at 99% on 3L of O2 by nasal cannula now. When I evaluated the patient, patient was on Ventimask post extubation. GENERAL: The patient is not in any acute distress. Well developed, well nourished. HEENT: Pupils are round and equally reacting to light. EOMI. No scleral icterus. No conjunctival pallor. Normocephalic, atraumatic. No pharyngeal erythema. No thyromegaly. CARDIOVASCULAR: S1 and S2 present. No murmurs, rubs, or gallops. PULMONARY: Chest is clear to auscultation, no wheezing or crackles. ABDOMEN: Soft, nontender, nondistended, normoactive bowel sounds. No palpable organomegaly. MUSCULOSKELETAL: No joint swelling or deformity. EXTREMITIES: No cyanosis, clubbing, or pedal edema. NEUROLOGICAL: Gross neurological examination did not reveal any focal deficits. SKIN: No rashes. LABORATORY DATA: CBC, CMP are significant for elevated WBC count yesterday, which is coming down. ( ) signs or symptoms of infection of this point of time and yesterday. AST and ALT are elevated and they are coming down secondary to chronic hepatitis secondary to hepatitis C with a component of acute alcoholic hepatitis. Urine drug screen is positive for opiates. ASSESSMENT AND PLAN: 1. Acute respiratory failure requiring intubation secondary to overdose on heroin. 2. Alcohol abuse. 3. Alcohol withdrawal. 4. History of alcoholic hepatitis. 5. Chronic hepatitis from hepatitis C. 6. Hepatitis C. 7. Toxic encephalopathy due to heroine over dose. PLAN: Continue to monitor the patient. Continue with IV fluids. Patient probably can be discharged tomorrow if she is breathing okay. Patient has a guardian and guarding wanting her to be discharged directly to rehabilitation program. Apparently there are some home issues that her family members themselves aid in her drug use behavior. Leukocytosis appears to be reactive. MTDD
--- NOTE | 2016-06-16 11:52 | P.PN ---
Subjective Principal diagnosis: Unresponsiveness secondary to drug overdose This is a 50-year-old female with history of alcohol abuse, IV drug abuse, patient was brought into the ER unresponsive. Upon arrival the patient was intubated, and she was positive for opiates. Patient remained on mechanical ventilation overnight, and her initial ABG upon intubation showed a pO2 of 329 pCO2 of 53 pH of 7.11. Follow-up ABG this morning showed a pO2 of 123 pCO2 of 46 pH of 7.35. Patient did not receive any sedation overnight, and upon my evaluation, the patient was arousable, she was given a short weaning trial at bedside, and her weaning parameters were excellent. I reviewed her chest x-ray , her labs, and I recommended extubation. In the meantime patient will be placed on Dilacor withdrawal protocol, and she will need to be monitored at least for the next 24 hours in the intensive care unit setting. No history could be obtained from the patient. Patient was reevaluated today on 06/16/2016, she seems to be doing quite well, tolerated the extubation well over the last 24 hours. Labs were reviewed and she had a relatively normal CBC and normal electrolytes and basic metabolic profile. Objective - Vital Signs Vital signs: Vital Signs Temp 99.2 F 06/16/16 08:00 Pulse 73 06/16/16 11:41 Resp 20 06/16/16 11:00 BP 136/67 06/16/16 11:00 Pulse Ox 97 06/16/16 11:00 Intake & Output 06/15/16 06/16/16 06/16/16 18:59 06:59 18:59 Intake Total 3736.235 4819 980 Output Total 900 913 250 Balance 473.611 387 730 Weight 78.5 kg 78.5 kg Intake: IV 1200 1300 300 0.9 NACL 1000 1300 300 Dextrose 5%-0.45% NaCl 1, 200 000 ml @ 100 mls/hr IV . Q10H [facility] Rx#:[id number] Intake, IV Titration 173.611 200 Amount Magnesium Sulfate-D5w Pmx 100 1 gm In Dextrose/Water 1 100ml.bag @ 100 mls/hr IVPB Q1H [facility] Rx#: [id number] Magnesium Sulfate-D5w Pmx 100 1 gm In Dextrose/Water 1 100ml.bag @ 100 mls/hr IVPB Q1H [facility] Rx#: [id number] Potassium Chloride 10 meq 100 In Water For Injection 1 100ml.bag @ 100 mls/hr IVPB Q1H [facility] Rx#: [id number] Propofol 500 mg In Empty 73.611 Bag 1 bag @ Titrate IV . Q0M [facility] Rx#:[id number] Oral 480 Output: Urine 900 913 250 Other: Voiding Method Indwelling Catheter Indwelling Catheter Indwelling Catheter - Exam Physical Exam: Revealed a 50-year-old female in no distress HEENT:[Neck is supple.] [No neck masses.] [No thyromegaly.] [No JVD.] Chest: [Clear throughout, no crackles, no rhonchi, no wheezes.] Cardiac Exam: [Normal S1 and S2, no S3 gallop, no murmur.] Abdomen: [Soft, nontender, no megaly, no rebound, no guarding, normal bowel sounds.] Extremities: [No clubbing, no edema, no cyanosis.] Neurological Exam: [No focal neurologic deficit.] - Labs CBC & Chem 7: 06/16/16 04:26 06/16/16 04:26 Labs: Abnormal Lab Results - Last 24 Hours (Table) 06/16/16 06/16/16 06/16/16 Range/Units 04:26 04:26 09:06 Plt Count 144 L (150-450) k/uL Chloride 110 H (98-107) mmol/L Creatinine 0.50 L (0.52-1.04) mg/dL Glucose 168 H (74-99) mg/dL POC Glucose (mg/dL) 201 H (75-99) mg/dL Calcium 7.8 L (8.4-10.2) mg/dL AST 71 H (14-36) U/L ALT 67 H (9-52) U/L Total Protein 5.5 L (6.3-8.2) g/dL Albumin 2.8 L (3.5-5.0) g/dL Microbiology - Last 24 Hours (Table) 06/15/16 01:25 Gram Stain - Preliminary Sputum Sputum Culture - Preliminary Assessment and Plan Plan: Impression: Acute hypercapnic respiratory failure secondary to narcotics overdose. Requiring intubation and mechanical ventilation overnight. Extubated on 06/15/2016, and she tolerated the extubation quite well. History of alcohol abuse and IV drug abuse. Recommendation: Continue present supportive care measures, transfer patient out of the ICU to a regular medical floor today. And possible discharge planning in the next 24 hours Time with Patient: Less than 30
[2016-06-16] MEDS: THIAMINE 100 MG TAB PO SCH ×2 (12:06→17:36)
[2016-06-16 12:11] LABS: Glucose,Whole Blood 230 mg/dL (75-99)
[2016-06-16] MEDS: INSULIN LISPRO (humaLOG) 300 UNIT/3 ML VIAL SQ SCH ×3 (14:03→20:42)
--- NOTE | 2016-06-16 16:43 | CDI ---
In responding to this query, please exercise your independent professional judgment. The [facility] Coding Staff and Clinical Documentation Specialists appreciate your assistance in clarifying documentation, maintaining compliance with coding guidelines, accurately documenting patients condition and capturing severity of illness. The fact that a question is asked does not imply that any particular answer is desired or expected. Communication forms are a method of clarifying documentation and are not made part of the Legal Health Record. Thank you in advance for your clarification. Last Revision, May 2015 Heydi Willard [address] [facility] [place] [address] Documentation Clarification Form Date: 06/16/2016 4:27:00 PM From: Capri Romero Admit Date: 06/14/2016 8:55:00 PM Patient Name: Denny De Visit Number: [id number] Discharge Date: Dr. Radha Rashid Altered mental status was documented in the ED evaluation. Patient history/risk factors: Hepatic C, Chronic liver disease, Hypertension, Bipolar disorder, Alcohol abuse, IV drug use Clinical Indicators: ED found unresponsive at a bus stop. She was cyanotic, lethargic obtunded, in distress. Vital signs 169/85 94 6 97.8 99 % Labs: wbc 16.1, Urine drug screen positive for Opiates Chest X Ray: No acute pulmonary process CT Brain: No acute intracranial abnormality Treatment: CPR initiated in ER Endotracheal Intubation/Mechanical ventilation ICU Monitoring Monitor Labs Neurovascular assessment per protocol In your professional opinion, please clarify the etiology of the altered mental status, if known. Encephalopathy (specify Type and Underlying Medical Illness) Metabolic Encephalopathy Toxic Encephalopathy Other (Specify) Other condition (please specify) Unable to determine Please document in your progress notes and discharge summary in order to capture severity of illness and risk of mortality. Include clinical findings that support your diagnosis. FYI: Press F11 to launch patient chart. Place X here if this finding has no clinical significance, is not applicable or if you are not able to provide any additional documentation. MTDD
[2016-06-16 17:44] LABS: Glucose,Whole Blood 254 mg/dL (75-99)
--- NOTE | 2016-06-16 20:40 | PN ---
DATE OF SERVICE: 06/16/2016 This 50-year-old woman was admitted with change in mental status and acute respiratory failure secondary to overdose of heroin. She is being closely monitored. Patient is mildly confused. Patient also has weakness on the right side with some history of TIA. Patient is being closely monitored. Multiple consultants, including Dr. Oshea, are following the patient closely. The most recent chest x-ray shows endotracheal tube prior to extubation. Past medical history reviewed. REVIEW OF SYSTEMS: CARDIOVASCULAR SYSTEM: No angina, palpitations. RESPIRATORY SYSTEM: Occasional cough. GI: No nausea, vomiting. : No dysuria. NERVOUS SYSTEM: As mentioned earlier. Current medications are reviewed and include: 1. DuoNeb q.i.d. and p.r.n. 2. Augmentin 875 mg p.o. b.i.d. 3. Lovenox. 4. Ativan. 5. Morphine. 6. Narcan. 7. Habitrol. 8. Vitamin B1. PHYSICAL EXAMINATION: Patient is alert and oriented x2. Pulse is 82, blood pressure 133/60, respiration 14, temperature 97.4, pulse ox 97% on 2 L. HEENT: Conjunctivae normal. Oral mucosa moist. NECK: No jugular venous distention. No carotid bruit. No lymph node enlargement. CARDIOVASCULAR: S1, S2, muffled. No S3. No S4. RESPIRATORY SYSTEM: Breath sounds diminished at the bases. A few scattered rhonchi. No crackles. ABDOMEN: Soft, obese, nontender. LEGS: No edema. No swelling. NERVOUS SYSTEM: Minimal weakness on right side. Otherwise, no other focal weakness. SKIN: No ulcer, rash, bleeding. LYMPHATICS: No lymph node palpable in neck, axilla or groin. LAB INVESTIGATIONS: WBC 4.7, hemoglobin 12.7, platelets 144. Glucose is 168. Albumin is 2.8. ASSESSMENT: 1. Acute hypercapnic hypoxic respiratory failure secondary to narcotic overdosage, status post mechanical ventilation. 2. Change in mental status, acute metabolic encephalopathy secondary to overdose. 3. History of ethanol abuse. 4. History of intravenous drug abuse. 5. Mild thrombocytopenia. 6. Increased random blood sugar and diabetes mellitus, type 2. 7. Increased AST, ALT; possibly secondary to hepatitis secondary to drug-induced. 8. Hypoalbuminemia with mild to moderate protein-calorie malnutrition. 9. History of cerebrovascular accident, transient ischemic attack, with right-sided weakness. 10. Hypertension. 11. Hyperlipidemia. 12. History of chronic liver disease. 13. History of tubal ligation. 14. History of esophageal surgery. 15. Bipolar, depression, post-traumatic stress disorder. 16. Polysubstance abuse. 17. FULL CODE. RECOMMENDATIONS AND DISCUSSION: In this 50-year-old woman who presented with multiple complex medical issues, we will monitor the patient closely, continue the current medications, continue symptomatic treatment. Repeat labs have been recommended. Otherwise, we will closely follow the LFTs and continue with the rest of the medication, including bronchodilators, DVT prophylaxis. Psychiatric consultation. Guarded prognosis because of multiple complex medical issues. Further recommendations to follow. MTDD
[2016-06-16 20:45] LABS: Glucose,Whole Blood 152 mg/dL (75-99)
[2016-06-17 01:04] LABS: Hemoglobin A1C 7.9 % (4.2-6.1)
[2016-06-17 01:54] LABS: Glucose,Whole Blood 167 mg/dL (75-99)
[2016-06-17] MEDS: SODIUM CHLORIDE 0.9% 1,000 ML IV SCH ×2 (04:20→11:30)
[2016-06-17] MEDS: MORPHINE SULFATE 4 MG/ML SYRINGE IVP PRN ×4 (04:20→11:29)
[2016-06-17 06:58] LABS: Glucose,Whole Blood 191 mg/dL (75-99)
[2016-06-17] MEDS ORDERED: PANTOPRAZOLE 40 MG TABLET PO SCH (07:30)
[2016-06-17 07:57] VITALS: BP 143/75; RESP 18; TEMP 96.6
[2016-06-17 07:58] LABS: Basophils % (A) 1 %; CH 31.2; CHCM 33.9; Eosinophils # (A) 0.1 k/uL (0-0.7); Eosinophils % (A) 3 %; HCT 36.5 % (34.0-46.0); HDW 2.85; HGB 12.5 gm/dL (11.4-16.0); Luc # (Auto) 0.11; Luc % (Auto) 3; Lymphocytes # (A) 1.2 k/uL (1.0-4.8); Lymphocytes % (A) 35 %; MCH 31.8 pg (25.0-35.0); MCHC 34.2 g/dL (31.0-37.0); MCV 92.8 fL (80.0-100.0); Mean Platelet Volume 7.6; Monocytes # (A) 0.2 k/uL (0-1.0); Monocytes % (A) 5 %; Neutrophils # (A) 1.9 k/uL (1.3-7.7); Neutrophils % (A) 53 %; RBC 3.93 m/uL (3.80-5.40); RDW 14.2 % (11.5-15.5); WBC 3.5 k/uL (3.8-10.6); WBC (Perox) 3.31
[2016-06-17] MEDS: IPRATROPIUM-ALBUTEROL 3 ML NEB INHALATION SCH ×2 (08:04→12:29)
[2016-06-17] MEDS: ENOXAPARIN 40 MG/0.4 ML SYRINGE SQ SCH (08:06)
[2016-06-17] MEDS: NICOTINE 21MG/24HR PATCH TRANSDERM SCH (08:06)
[2016-06-17] MEDS: INSULIN LISPRO (humaLOG) 300 UNIT/3 ML VIAL SQ SCH ×2 (08:06→12:08)
[2016-06-17] MEDS: AMOXIC-POT CLAV 875-125MG 1 EACH TAB PO SCH (08:06)
[2016-06-17 08:22] LABS: ALT 63 U/L (9-52); AST 64 U/L (14-36); Alkaline Phosphatase 113 U/L (38-126); Anion Gap 6 mmol/L; Blood Urea Nitrogen 9 mg/dL (7-17); Carbon Dioxide 26 mmol/L (22-30); Chloride 110 mmol/L (98-107); Glucose 187 mg/dL (74-99); Magnesium 1.5 mg/dL (1.6-2.3); Non-African American GFR(MDRD) >60 (>60 ml/min/1.73 sqM); Phosphorous 3.6 mg/dL (2.5-4.5); Potassium 3.8 mmol/L (3.5-5.1); Sodium 142 mmol/L (137-145); Total Bilirubin 0.5 mg/dL (0.2-1.3); Total Protein 5.5 g/dL (6.3-8.2)
[2016-06-17] MEDS: THIAMINE 100 MG TAB PO SCH (11:29)
[2016-06-17 12:03] LABS: Glucose,Whole Blood 178 mg/dL (75-99)
[2016-06-17 12:42] VITALS: PULSE 78
--- NOTE | 2016-06-17 17:12 | CONS ---
DATE OF CONSULTATION: REASON FOR CONSULTATION: Patient has history of bipolar disorder versus posttraumatic stress disorder. I did interview the patient medical record and her [facility] record and I did interview the patient. HISTORY OF PRESENT ILLNESS: Patient is 50-year-old white, female with history of polysubstance abuse and mental illness, patient was recently released from [facility] where she was inpatient for at least 2 weeks for rehab for her heroin. Patient stated that she did relapse just 2 days after she was released and she was brought in to the ER unresponsive. At her arrival, she was intubated and she was on mechanical ventilation overnight. I talked to the patient, who stated that she is feeling guilty about her overdose and she did not realize that she will lose her respiration and she said, "I just need to be on my psych medication." Patient stated that she has a guardian her name is Demetrice. Patient is on Social Security disability for the last 5 years, due to mental illness and according to the [facility] record, patient has been seen on a regular basis by Dr. Stockton and her last medication log was: 1. Effexor 300 mg daily. 2. Zyprexa 20 mg for sleep and as mood stabilizer at night. 3. Topamax 100 mg once a day. 4. Vitamin D3. 5. Potassium chloride. 6. Metformin 500 3 times a day. 7. Lisinopril 10 mg once a day. 8. Lasix 20 mg daily. 9. Neurontin 300 mg 3 times a day. 10. Insulin. Today patient complaining of feeling guilty about her relapse, feeling sad, no interest, indecisive. No energy, trouble sleeping at night, change in her appetite, but she denied any suicidal or homicide ideation. She denied any auditory or visual hallucination. She denied any idea of reference or thought broadcasting. She describes that she has high anxiety characterized by racing thoughts, restless feeling, irritability, and feeling on edge. Patient described extensive history of alcohol abuse, but she stated that she stopped drinking one year ago and she started using IV heroin and crack cocaine almost on daily basis. Her urine drug screen is positive for opiate. Regarding past psychiatric history, currently patient is open at [facility] and her outpatient provider is Dr. Rolando Stockton. She has multiple psychiatric hospitalization. Her last psychiatric hospitalization was 2010. Most of her diagnoses are: Major depression, recurrent, with psychotic feature, anxiety disorder. Alcohol use disorder, severe, cocaine use disorder, severe, opiate use disorder, severe, chronic viral hepatitis C, hyperlipidemia, diabetes, vitamin D deficiency and hypertension, and previous suicidal attempts, one suicide attempt with overdose in 2010. Psychotropic tried: Patient tried multiple medication including: Celexa. Wellbutrin and Abilify. Substance abuse history: As I mentioned before she has extensive history of substance abuse between alcohol, cocaine and heroin. She used to drink up to a pint and one half a day up to one year ago. Patient was recently released from [facility]. SOCIAL HISTORY: Patient moved from [place] to [place] in 2010. She has 3 children. She does not have contact with them. Currently she has been staying with her brother for the last 5 months. Patient was in low income housing January 2016 and she lost her housing due to her heroin addiction, currently she is on Social Security disability, but she has a guardian. MENTAL STATUS EXAMINATION: Patient is an overweight white female who is alert, cooperative. Her mood "I am depressed and anxious." She stated that she has been feeling, worthless. Mind is racing, irritability, inability to sleep at night as she has been off her psych medication. She denied any auditory or visual hallucinations, but she stated that she has paranoia and suspicious feeling toward people in general, she denied any active suicidal ideation or homicidal ideation. She is alert, oriented to person, place and time. Her insight and judgment are limited. IMPRESSION: 1. Major depression with psychotic feature. 2. Opium use disorder, severe. 3. Cocaine use disorder, severe. 4. Alcohol use disorder. PLAN/RECOMMENDATION: Patient denied any active suicidal ideation. She does not meet criteria for inpatient for now. However, I will restart her back on her Effexor 300 mg in the morning and Zyprexa 10 mg at bedtime. I will continue to follow up and to adjust the Zyprexa according to the symptoms. If she is medically cleared, patient can be referred [facility]. I did contact her case marriage and family social worker to inform her that the patient has been on the medical floor with overdose of heroin. Her supervisor soakers will pursue dual diagnosis treatment program. Her prognosis is guarded due to her extended history of substance abuse.
[2016-06-17] MEDS ORDERED: OLANZapine ODT 10 MG TAB PO SCH (21:00)
[2016-06-18] MEDS ORDERED: VENLAFAXINE HCL ER 150 MG CAP PO SCH (09:00)
--- NOTE | 2016-06-18 17:03 | DS ---
DATE OF ADMISSION: 06/14/2016 DATE OF DISCHARGE: 06/17/2016 FINAL DIAGNOSES: 1. Acute hypercapnic hypoxic respiratory failure secondary to narcotic overdose, status post mechanical ventilation. 2. Change in mental status, acute metabolic encephalopathy secondary to overdose. 3. History of ethanol abuse. 4. History of intravenous drug abuse. 5. Mild thrombocytopenia. 6. Increased random blood sugar and diabetes mellitus, type 2. 7. Increased AST, ALT, possibly secondary to acute hepatitis secondary to drug-induced. 8. Hypoalbuminemia with mild to moderate protein-calorie malnutrition. 9. History of cerebrovascular accident, transient ischemic attack with right-sided weakness. 10. Hypertension, essential. 11. Hyperlipidemia. 12. History of chronic liver disease. 13. Tubal ligation. 14. History of esophageal surgery. 15. Bipolar depression and post-traumatic stress disorder. 16. Polysubstance abuse. 17. FULL CODE. DISCHARGE DISPOSITION: The patient will be discharged in stable condition with guarded prognosis. HISTORY OF PRESENT ILLNESS: This 50-year-old woman with a past medical history of multiple medical problems was admitted with acute respiratory failure, narcotic overdose and multiple medical issues. Patient was treated symptomatically. Patient improved significantly. The patient had abnormal labs, including hypomagnesemia, elevated LFTs; recommend outpatient followup. The patient was also seen by Psychiatry during the hospitalization, who recommended outpatient followup. [facility] followup has been recommended. On exam, vitals are stable. CARDIOVASCULAR SYSTEM: S1, S2 muffled. ABDOMEN: Soft. NERVOUS SYSTEM: No focal deficit. DISCHARGE ADVICE AND MEDICATIONS: 1. Diet is cardiac. 2. Activity limited until followup. 3. Follow up with Dr. Zabrina Pardo. 4. Follow up with [facility] as recommended. 5. Augmentin 875 mg one p.o. b.i.d. for 5 days. 6. Vitamin D3 1000 daily. 7. Lasix 20 mg daily. 8. Neurontin 300 mg p.o. t.i.d. 9. Lantus 30 units subcutaneously at bedtime. 10. Prinivil 10 mg p.o. daily. 11. Habitrol 21 daily. 12. Zyprexa 20 mg at bedtime. 13. K-Dur 10 mEq p.o. daily. 14. Vitamin B1 100 mg p.o. daily. 15. Effexor XR 150 mg p.o. daily. 16. Glucophage 500 mg p.o. t.i.d. Once again, the patient will be discharged in stable condition with guarded prognosis.
== END 2016-06-17 15:11 | disposition home health service (06) | DRG 917 ==
LOC: EC 19:44 → 6ICU 20:55 → MERGE 20:55 → EDBD 20:55 → 4MS4W 06-16 16:57
PROVIDERS: ADMIT Hospitalist; ATTEND Hospitalist
PROC: 5A1935Z Respiratory Ventilation, Less than 24 Consecutive Hours (ICD-10-PCS; principal; 2016-06-14)
PROC: 0BH17EZ Insertion of Endotracheal Airway into Trachea, Via Natural or Artificial Opening (ICD-10-PCS; 2016-06-14)
DX: T40.1X1A Poisoning by heroin, accidental (unintentional), initial encounter (principal); J96.01 Acute respiratory failure with hypoxia; G93.41 Metabolic encephalopathy; J96.02 Acute respiratory failure with hypercapnia; E44.0 Moderate protein-calorie malnutrition; F33.3 Major depressive disorder, recurrent, severe with psychotic symptoms; F14.20 Cocaine dependence, uncomplicated; F10.239 Alcohol dependence with withdrawal, unspecified; F11.23 Opioid dependence with withdrawal; I69.951 Hemiplegia and hemiparesis following unspecified cerebrovascular disease affecting right dominant side; D69.6 Thrombocytopenia, unspecified; E11.65 Type 2 diabetes mellitus with hyperglycemia; B18.2 Chronic viral hepatitis C; E83.42 Hypomagnesemia; E55.9 Vitamin D deficiency, unspecified; E66.3 Overweight; E78.5 Hyperlipidemia, unspecified; F43.10 Post-traumatic stress disorder, unspecified; G47.00 Insomnia, unspecified; I10 Essential (primary) hypertension; Z68.27 Body mass index [BMI] 27.0-27.9, adult; Z79.899 Other long term (current) drug therapy; Z79.4 Long term (current) use of insulin; Z91.5 Personal history of self-harm
CPT/HCPCS: 31500; 36415; 36600; 43753; 51701; 51702; 70450; 71010; 80053; 80306; 81001; 82550; 82553; 82805; 83036; 83735; 84100; 84484; 85025; 85610; 85730; 87070; 87077; 87086; 87186; 87205; 92950; 93005; 94002; 94003; 94640; 94760; 96361; 96365; 96375; 99291

== ENCOUNTER 2016-08-10 12:54 | Inpatient (IN) | payer OTHER ==
[2016-08-10] MEDS ORDERED: SODIUM CHLORIDE 0.9% 1,000 ML IV STA (14:27)
[2016-08-10] MEDS ORDERED: IV VANCOMYCIN PER PHARMACY 1 EACH MISC MISCELLANE PRN (14:27)
--- NOTE | 2016-08-10 14:30 | ED ---
Skin/Abscess/FB HPI - General Chief complaint: Skin/Abscess/Foreign Body Stated complaint: Hand Infection Time Seen by Provider: 08/10/16 14:24 Source: patient, RN notes reviewed Mode of arrival: ambulatory Limitations: physical limitation - History of Present Illness Initial comments: 50-year-old female who is a heroin abuser presents for abscess to the right hand. Patient states this isn't going on for a bout 5 days. Patient states she has limited motion of the hand pain and swelling. Patient states [facility] was referred her to the hospital. Patient's fever chills this. Patient states that she was concerned due to the continued swelling and pain so she thought that she should be evaluated.Patient denies any recent fever, chills, shortness of breath, chest pain, back pain, abdominal pain, nausea vomiting, numbness or tingling, dysuria or hematuria, constipation or diarrhea, headaches or visual changes, or any other current symptoms. - Related Data Home Medications Medication Instructions Recorded Confirmed Insulin Glargine [Lantus] 30 unit SQ BID 02/17/16 08/10/16 Venlafaxine HCl [Effexor XR] 300 mg PO QAM 03/31/16 08/10/16 Cholecalciferol [Vitamin D3] 1,000 unit PO DAILY 06/16/16 08/10/16 Furosemide [Lasix] 20 mg PO DAILY 06/16/16 08/10/16 Gabapentin [Neurontin] 300 mg PO TID 06/16/16 08/10/16 Lisinopril [Prinivil] 10 mg PO DAILY 06/16/16 08/10/16 OLANZapine [ZyPREXA] 20 mg PO HS 06/16/16 08/10/16 Potassium Chloride ER [K-Dur 10] 10 meq PO DAILY 06/16/16 08/10/16 metFORMIN HCL [Glucophage] 500 mg PO TID 06/16/16 08/10/16 Previous Rx's Medication Instructions Recorded Nicotine 21Mg/24Hr Patch [Habitrol] 1 patch TRANSDERM DAILY #30 patch 06/17/16 Allergies Allergy/AdvReac Type Severity Reaction Status Date / Time hydromorphone HCl Allergy Unknown Rash/Hives Verified 08/10/16 14:33 [From Dilaudid] Review of Systems ROS Statement: Those systems with pertinent positive or pertinent negative responses have been documented in the HPI. ROS Other: All systems not noted in ROS Statement are negative. Past Medical History Past Medical History: CVA/TIA, Diabetes Mellitus, Hyperlipidemia, Hypertension, Liver Disease Additional Past Medical History / Comment(s): alcoholism, HEPATITIS, gestational diabetes, stroke in 04/2015 with right sided weakness History of Any Multi-Drug Resistant Organisms: None Reported Past Surgical History: Cholecystectomy, Tonsillectomy, Tubal Ligation Additional Past Surgical History / Comment(s): esophageal surgery Past Anesthesia/Blood Transfusion Reactions: No Reported Reaction Past Psychological History: Bipolar, Depression, PTSD Smoking Status: Current every day smoker Past Alcohol Use History: Abuse, None Reported Past Drug Use History: Heroin, None Reported - Past Family History Mother Additional Family Medical History / Comment(s): "korea hunington disease" General Exam - General Exam Comments Initial Comments: General: The patient is awake and alert, in no distress, and does not appear acutely ill. Neck: The neck is supple, there is no tenderness. Cardiovascular: There is a regular rate and rhythm. No murmur, rub or gallop is appreciated. Respiratory: Lungs are clear to auscultation, respirations are non-labored, breath sounds are equal. No wheezes, stridor, rales, or rhonchi. Musculoskeletal: Sensation intact with 2+ pulses. Infection. Vital motion of right elbow. Patient limits range of motion of right wrist due to pain with an abscess and again erythematous right hand. Patient was range motion of all fingers due to swelling and pain. Neurological: CN II-XII intact, There are no obvious motor or sensory deficits. Coordination appears grossly intact. Speech is normal. Skin: Skin is warm and dry and no rashes or lesions are noted. Psychiatric: Normal mood and affect. Limitations: physical limitation Course Vital Signs 08/10/16 13:23 Temperature 98.8 F Pulse Rate 88 Respiratory 18 Rate Blood Pressure 109/79 O2 Sat by Pulse 97 Oximetry Procedures - Procedures Initial comment: Procedure: Incision and drainage The skin overlying the abscess was prepped with Betadine, and anesthetized with 1% lidocaine without epinephrine. A #11 scalpel was then used to incise the abscess. Some purulent material was then extracted from the lesion. Wound culture obtained. Gauze dressing placed on top, The patient tolerated the procedure well. Medical Decision Making - Medical Decision Making 50-year-old female presents emergency department with a right hand cellulitis associated abscess. This admission under went I&D. We'll start patient on antibiotics and attempt to the hospital. Discussed return parameters and follow -up and outpatient family's questions. She stated that she understood the plan. - Lab Data Result diagrams: 08/10/16 15:38 Lab Results 08/10/16 Range/Units 15:38 WBC 7.9 (3.8-10.6) k/uL RBC 5.28 (3.80-5.40) m/uL Hgb 16.4 H D (11.4-16.0) gm/dL Hct 48.6 H (34.0-46.0) % MCV 92.1 (80.0-100.0) fL MCH 31.0 (25.0-35.0) pg MCHC 33.7 (31.0-37.0) g/dL RDW 12.9 (11.5-15.5) % Plt Count 126 L (150-450) k/uL Neutrophils % 65 % Lymphocytes % 27 % Monocytes % 5 % Eosinophils % 1 % Basophils % 1 % Neutrophils # 5.1 (1.3-7.7) k/uL Lymphocytes # 2.2 (1.0-4.8) k/uL Monocytes # 0.4 (0-1.0) k/uL Eosinophils # 0.1 (0-0.7) k/uL Basophils # 0.1 (0-0.2) k/uL Disposition Clinical Impression: Cellulitis of right hand, Abscess of right hand Disposition: ADMITTED IP TO THIS HOSP Condition: Stable Referrals: Venessa Marte MD [Primary Care Provider] - 1-2 days Time of Disposition: 16:15 Decision Date: 08/10/16 Decision Time: 16:15
[2016-08-10] MEDS ORDERED: VANCOMYCIN 1,500 MG in SODIUM CHLORIDE 0.9% 250 ML IVPB ONE (15:00)
[2016-08-10 15:43] LABS: Basophils # (A) 0.1 k/uL (0-0.2); Basophils % (A) 1 %; CH 31.4; CHCM 34.3; Eosinophils # (A) 0.1 k/uL (0-0.7); Eosinophils % (A) 1 %; HCT 48.6 % (34.0-46.0); HDW 2.63; Luc # (Auto) 0.12; Luc % (Auto) 2; Lymphocytes # (A) 2.2 k/uL (1.0-4.8); Lymphocytes % (A) 27 %; MCHC 33.7 g/dL (31.0-37.0); MCV 92.1 fL (80.0-100.0); Mean Platelet Volume 7.5; Monocytes # (A) 0.4 k/uL (0-1.0); Monocytes % (A) 5 %; Neutrophils # (A) 5.1 k/uL (1.3-7.7); Neutrophils % (A) 65 %; RBC 5.28 m/uL (3.80-5.40); RDW 12.9 % (11.5-15.5); WBC 7.9 k/uL (3.8-10.6); WBC (Perox) 8.19
[2016-08-10] MEDS ORDERED: NALOXONE 0.4 MG/ML 1 ML VIAL IV PRN (16:15)
[2016-08-10] MEDS ORDERED: ACETAMINOPHEN TAB 325 MG TAB PO PRN (16:15)
--- NOTE | 2016-08-10 16:21 | XR ---
EXAMINATION TYPE: XR hand complete RT DATE OF EXAM: 08/10/2016 4:06 PM CLINICAL HISTORY: Pain swelling and redness right hand for 4 days. TECHNIQUE: Frontal, lateral and oblique images of the right hand are obtained. COMPARISON: Right hand x-ray March 31, 2016 FINDINGS: Osseous structures are demineralized which is noted to lower radiographic sensitivity. The re is no acute fracture/dislocation evident in the right hand. Mild joint space loss throughout the p halanges is redemonstrated. Mild diffuse soft tissue swelling is again seen. IMPRESSION: There is no acute fracture or dislocation in the right hand. No significant change from prior.
[2016-08-10 16:31] LABS: ALT 58 U/L (9-52); AST 67 U/L (14-36); Alkaline Phosphatase 105 U/L (38-126); Anion Gap 7 mmol/L; Blood Urea Nitrogen 6 mg/dL (7-17); Calcium 8.6 mg/dL (8.4-10.2); Carbon Dioxide 28 mmol/L (22-30); Chloride 105 mmol/L (98-107); Glucose 152 mg/dL (74-99); Non-African American GFR(MDRD) >60 (>60 ml/min/1.73 sqM); Potassium 4.2 mmol/L (3.5-5.1); Sodium 140 mmol/L (137-145); Total Bilirubin 1.3 mg/dL (0.2-1.3); Total Protein 6.5 g/dL (6.3-8.2)
[2016-08-10] MEDS: SODIUM CHLORIDE 0.9% 1,000 ML IV SCH (16:39)
[2016-08-10] MEDS: KETOROLAC 30 MG/ML 1 ML VIAL IVP PRN (19:25)
[2016-08-10 20:01] LABS: HGB 16.4 gm/dL (11.4-16.0)
[2016-08-10] MEDS ORDERED: cloNIDine HCL 0.1 MG TAB PO PRN (20:14)
[2016-08-10 21:01] LABS: Glucose,Whole Blood 159 mg/dL (75-99)
[2016-08-10] MEDS: metFORMIN 500 MG TAB PO SCH (21:56)
[2016-08-10] MEDS: OLANZapine 10 MG TAB PO SCH (21:56)
[2016-08-10] MEDS: AMPICILLIN-SULBACTAM 3 GM in SODIUM CHLORIDE 0.9% 100 ML IVPB SCH (21:56)
[2016-08-10] MEDS: INSULIN LISPRO (humaLOG) 300 UNIT/3 ML VIAL SQ SCH (21:57)
[2016-08-10] MEDS: INSULIN GLARGINE 100 UNIT/ML 10 ML VIAL SQ SCH (21:57)
[2016-08-10] MEDS: GABAPENTIN 300 MG CAP PO SCH (21:57)
[2016-08-10] MEDS: HEPARIN SODIUM,PORCINE 5,000 UNIT/ML 1 ML VIAL SQ SCH (21:57)
[2016-08-11] MEDS: VANCOMYCIN 1,250 MG in SODIUM CHLORIDE 0.9% 250 ML IVPB SCH ×3 (00:11→17:21)
[2016-08-11] MEDS: AMPICILLIN-SULBACTAM 3 GM in SODIUM CHLORIDE 0.9% 100 ML IVPB SCH ×3 (05:34→19:27)
[2016-08-11] MEDS: SODIUM CHLORIDE 0.9% 1,000 ML IV SCH ×3 (05:35→17:18)
[2016-08-11 07:22] LABS: Glucose,Whole Blood 113 mg/dL (75-99)
[2016-08-11] MEDS: LISINOPRIL 10 MG TAB PO SCH (07:22)
[2016-08-11] MEDS: NICOTINE 21MG/24HR PATCH TRANSDERM SCH (08:19)
[2016-08-11] MEDS: GABAPENTIN 300 MG CAP PO SCH ×3 (08:21→20:53)
[2016-08-11] MEDS: FUROSEMIDE 20 MG TAB PO SCH (08:21)
[2016-08-11] MEDS: metFORMIN 500 MG TAB PO SCH ×3 (08:22→17:24)
[2016-08-11] MEDS: POTASSIUM CHLORIDE ER 10 MEQ TAB.ER.PRT PO SCH (08:22)
[2016-08-11] MEDS: INSULIN LISPRO (humaLOG) 300 UNIT/3 ML VIAL SQ SCH ×4 (08:23→20:54)
[2016-08-11] MEDS: HEPARIN SODIUM,PORCINE 5,000 UNIT/ML 1 ML VIAL SQ SCH ×2 (08:23→20:54)
[2016-08-11] MEDS: VENLAFAXINE HCL ER 150 MG CAP PO SCH (08:27)
[2016-08-11] MEDS: INSULIN GLARGINE 100 UNIT/ML 10 ML VIAL SQ SCH ×2 (08:34→20:53)
[2016-08-11 09:24] LABS: Basophils % (A) 1 %; CH 31.6; CHCM 34.7; Eosinophils # (A) 0.1 k/uL (0-0.7); Eosinophils % (A) 2 %; HCT 49.2 % (34.0-46.0); HDW 2.77; HGB 16.4 gm/dL (11.4-16.0); Luc # (Auto) 0.07; Luc % (Auto) 1; Lymphocytes # (A) 1.8 k/uL (1.0-4.8); Lymphocytes % (A) 33 %; MCH 30.4 pg (25.0-35.0); MCHC 33.3 g/dL (31.0-37.0); MCV 91.4 fL (80.0-100.0); Mean Platelet Volume 7.4; Monocytes # (A) 0.2 k/uL (0-1.0); Monocytes % (A) 4 %; Neutrophils # (A) 3.3 k/uL (1.3-7.7); Neutrophils % (A) 59 %; RBC 5.38 m/uL (3.80-5.40); RDW 12.6 % (11.5-15.5); WBC 5.6 k/uL (3.8-10.6); WBC (Perox) 5.22
[2016-08-11 09:46] LABS: ALT 66 U/L (9-52); AST 81 U/L (14-36); Alkaline Phosphatase 102 U/L (38-126); Anion Gap 9 mmol/L; Blood Urea Nitrogen 7 mg/dL (7-17); Calcium 8.5 mg/dL (8.4-10.2); Carbon Dioxide 24 mmol/L (22-30); Chloride 111 mmol/L (98-107); Glucose 132 mg/dL (74-99); Non-African American GFR(MDRD) >60 (>60 ml/min/1.73 sqM); Potassium 3.9 mmol/L (3.5-5.1); Sodium 144 mmol/L (137-145); Total Bilirubin 1.3 mg/dL (0.2-1.3); Total Protein 6.5 g/dL (6.3-8.2)
--- NOTE | 2016-08-11 10:15 | P.CNOR ---
History of Present Illness - [facility] Consult date: 08/11/16 Requesting physician: Giuseppe Murray Consult reason: other (Right Hand cellulitis abscess) History of present illness: Patient is a 50-year-old female seen at bedside this morning in consultation for right hand cellulitis and abscess. She is an admitted heroin user where she states she's injected drugs into her hand previously. The erythema and swelling in her right hand started approximately 5 days ago, she states. She last used 2 days ago. She has pain and swelling at the right hand. She is currently denying fever or chills. She was admitted through the emergency department last evening where a small I&D was performed and cultures were taken. Cultures are currently showing few gram-positive cocci and rare gram- negative rods. She has been on IV vancomycin and IV Unasyn since admission. She denies numbness or tingling. She denies intolerable pain. She has no other current complaints. Pertinent positives for her past medical history include insulin-dependent diabetes, hypertension, chronic smoking and substance abuse. Review of Systems All systems: negative Constitutional: Denies chills, Denies fever Eyes: denies blurred vision, denies pain Ears, nose, mouth and throat: Denies headache, Denies sore throat Cardiovascular: Denies chest pain, Denies shortness of breath Respiratory: Denies cough Gastrointestinal: Denies abdominal pain, Denies diarrhea, Denies nausea, Denies vomiting Genitourinary: Denies dysuria, Denies hematuria Musculoskeletal: Denies myalgias Integumentary: Denies pruritus, Denies rash Neurological: Denies numbness, Denies weakness Psychiatric: Denies anxiety, Denies depression Endocrine: Denies deepening of the voice, Denies weight change Past Medical History Past Medical History: CVA/TIA, Diabetes Mellitus, Hyperlipidemia, Hypertension, Liver Disease Additional Past Medical History / Comment(s): "past alcoholism quit year ago when she started heroin" , "hepatitis c", stroke in 04/2015 with right sided weakness, hx fall-most recent 1.5 weeks ago, -2016 resp failure/opiate od History of Any Multi-Drug Resistant Organisms: None Reported Past Surgical History: Cholecystectomy, Tonsillectomy, Tubal Ligation Additional Past Surgical History / Comment(s): esophageal surgery Past Anesthesia/Blood Transfusion Reactions: Motion Sickness Past Psychological History: Bipolar, Depression, PTSD Additional Psychological History / Comment(s): pt stated actually i am homeless- i staying with my brother and his girlfriend Smoking Status: Current every day smoker Past Alcohol Use History: Abuse, None Reported Additional Past Alcohol Use History / Comment(s): started smoking at age 10, smoking 1.5 -2 ppd. past alochol abuse stated quit a year ago but before that had been drinking a fifth of vodka daily for 5 years. Past Drug Use History: Heroin Additional Drug Use History / Comment(s): continues to use heroin-last time used was 08-09-16 - Past Family History Mother Additional Family Medical History / Comment(s): "chorea bill disease" Medications and Allergies Home Medications Medication Instructions Recorded Confirmed Type Insulin Glargine [Lantus] 30 unit SQ BID 02/17/16 08/10/16 History Venlafaxine HCl [Effexor XR] 300 mg PO QAM 03/31/16 08/10/16 History Cholecalciferol [Vitamin D3] 1,000 unit PO DAILY 06/16/16 08/10/16 History Furosemide [Lasix] 20 mg PO DAILY 06/16/16 08/10/16 History Gabapentin [Neurontin] 300 mg PO TID 06/16/16 08/10/16 History Lisinopril [Prinivil] 10 mg PO DAILY 06/16/16 08/10/16 History OLANZapine [ZyPREXA] 20 mg PO HS 06/16/16 08/10/16 History Potassium Chloride ER [K-Dur 10] 10 meq PO DAILY 06/16/16 08/10/16 History metFORMIN HCL [Glucophage] 500 mg PO TID 06/16/16 08/10/16 History Allergies Allergy/AdvReac Type Severity Reaction Status Date / Time hydromorphone HCl Allergy Unknown Rash/Hives Verified 08/10/16 14:33 [From Dilaudid] Physical Examination Inspection of the right hand shows mild edema at the dorsum of the hand. There is moderate erythema across the dorsum of the hand. There is a small opening where a very small I&D was performed between the second and third metacarpal. There is no active bleeding or drainage. The hand is mildly tender to touch and is warm to touch. She has full painless flexion-extension of the wrist and digits. Sensation to light touch is intact throughout the upper extremity, hand and digits. 2+ radial pulse present and less than 2 second cap refill present. Results - Labs Labs: Abnormal Lab Results - Last 24 Hours (Table) 08/10/16 08/10/16 08/10/16 Range/Units 15:38 16:00 20:59 Hgb 16.4 H D (11.4-16.0) gm/dL Hct 48.6 H (34.0-46.0) % Plt Count 126 L (150-450) k/uL Chloride (98-107) mmol/L BUN 6 L (7-17) mg/dL Creatinine 0.50 L (0.52-1.04) mg/dL Glucose 152 H (74-99) mg/dL POC Glucose (mg/dL) 159 H (75-99) mg/dL AST 67 H (14-36) U/L ALT 58 H (9-52) U/L Albumin 3.4 L (3.5-5.0) g/dL 08/11/16 08/11/16 08/11/16 Range/Units 07:15 08:33 08:33 Hgb 16.4 H (11.4-16.0) gm/dL Hct 49.2 H (34.0-46.0) % Plt Count 133 L (150-450) k/uL Chloride 111 H (98-107) mmol/L BUN (7-17) mg/dL Creatinine (0.52-1.04) mg/dL Glucose 132 H (74-99) mg/dL POC Glucose (mg/dL) 113 H (75-99) mg/dL AST 81 H (14-36) U/L ALT 66 H (9-52) U/L Albumin 3.4 L (3.5-5.0) g/dL Microbiology - Last 24 Hours (Table) 08/10/16 15:30 Gram Stain - Preliminary Hand - Right Wound Culture - Preliminary H & H 08/10/16 08/11/16 Range/Units 15:38 08:33 Hgb 16.4 H D 16.4 H (11.4-16.0) gm/dL Hct 48.6 H 49.2 H (34.0-46.0) % Result Diagrams: 08/11/16 08:33 05/16/17 08:33 - Diagnostic results Wrist/Hand x-ray: report reviewed, image reviewed (No fractures or lesions. No evidence of osteomyelitis. Mild soft tissue swelling present) Assessment and Plan (1) Abscess of right hand Status: Acute (2) Cellulitis of right hand Status: Acute Plan: While examining the patient, I was able to express a very small amount of purulent drainage. There is no fluctuance or fluid collection across the dorsum of the hand. I recommended warm soapy soaks for 10-15 minutes twice a day. She'll continue on IV vancomycin and Unasyn. We'll recheck tomorrow for improvement. If the hand worsens, we'll consider more invasive I&D and packing. The patient will be discussed with Dr. Murray. Further recommendations to follow. Time with Patient: Less than 30
--- NOTE | 2016-08-11 10:49 | HP ---
DATE OF ADMISSION: CHIEF COMPLAINT: Pain and swelling of the right dorsum of hand. HISTORY OF PRESENT ILLNESS: This 50-year-old woman with a past medical history of multiple medical problems including diabetes mellitus type 2, hypertension, hyperlipidemia, history of cerebrovascular accident, transient ischemic attack, history of alcohol, hepatitis, stroke, history of bipolar, depression, PTSD, being followed by Dr. Marte in the outpatient setting, is reporting about IV heroin for the last one year. The patient apparently lives with a brother who also uses IV heroin. The patient was noted to have pain and swelling of the right hand ongoing for 5 days. Patient had limited movement of the right hand. Patient came to [facility] and admitted for further evaluation and treatment. There is no history of fever, rigors. No history of headache, loss of consciousness, seizures, chest pain, palpitations, shortness of breath, hematochezia, melena at this time. PAST MEDICAL HISTORY: History of diabetes, hypertension, hyperlipidemia, history of alcohol, history of hepatitis, stroke, history of cholecystectomy, cerebrovascular accident, transient ischemic attack. Home medications are: 1. Effexor XR 300 mg q.a.m. 2. K-Dur 10 mEq p.o. daily. 3. Zyprexa 20 mg q.h.s. 4. Glucophage 500 mg p.o. t.i.d. 5. Habitrol 14 daily. 6. Prinivil 10 mg p.o. daily. 7. Lantus 30 units subcu b.i.d. 8. Neurontin 300 mg t.i.d. 9. Lasix 20 mg p.o. daily. 10. Vitamin D 3,000 daily. ALLERGIES: DILAUDID. FAMILY HISTORY: History of Jones's chorea. SOCIAL HISTORY: History of smoking on a daily basis. History of alcohol. History of substance abuse. REVIEW OF SYSTEMS: ENT: Diminishing vision. No diminished hearing. CARDIOVASCULAR: No angina. RESPIRATORY: No cough or hemoptysis. GI: No nausea. : No dysuria. NERVOUS SYSTEM: No numbness or weakness. ALLERGY/IMMUNOLOGY: No asthma or hayfever. MUSCULOSKELETAL: As mentioned earlier. HEMATOLOGY/ONCOLOGY: No history of anemia. ENDOCRINE: Diabetes. CONSTITUTIONAL: As mentioned earlier. DERMATOLOGY: Negative. RHEUMATOLOGY: Negative. PSYCHIATRY: As mentioned earlier. PHYSICAL EXAMINATION: Patient is alert and oriented x3. Pulse 82, blood pressure 116/81, respirations 16, temperature 99.2, pulse ox 96% on room air. HEENT: Conjunctivae normal. Oral mucosa moist. NECK: No jugular venous distention. No carotid bruit. No lymph node enlargement. CARDIOVASCULAR: S1 and S2, muffled. No S3, no S4. RESPIRATORY: Breath sounds diminished at the bases. No rhonchi, no crackles. ABDOMEN: Soft, obese, nontender. LEGS: No edema, no swelling. NERVOUS SYSTEM: Higher function as mentioned. Cranial nerves II through XII grossly intact. Moves all four limbs. No focal motor or sensory deficits. LYMPHATIC: No lymphadenopathy in the neck, axillae or groin. SKIN: Right hand is swollen and painful, erythematous, difficult to move and with an abscess and point which had incision and drainage in the ER. Lab investigations at this time shows WBC 7.5, hemoglobin 16.4 and platelets 126. Glucose 152. AST 67, ALT 58. ASSESSMENT: 1. Right arm severe abscess with previous cellulitis secondary to IV drug abuse. 2. History of heroin abuse. 3. Thrombocytopenia, multifactorial. 4. Increased hemoglobin. 5. Possibly heroin withdrawal. 6. Diabetes mellitus type 2. 7. Increased AST, ALT, possible hepatitis. 8. Hypoalbuminemia with mild to moderate protein calorie malnutrition. 9. Cerebrovascular accident, transient ischemic attack. 10. Hypertension. 11. Hyperlipidemia. 12. History of chronic liver disease secondary to alcohol and hepatitis. 13. History of cholecystectomy. 14. History of transfusion. 15. History of tubal ligation. 16. History of ( ) surgery. 17. History of bipolar depression, posttraumatic stress disorder, not otherwise specified. 18. History of nicotine dependence. 19. History of polysubstance abuse. 20. History of narcotic overdoses and mechanical ventilation recently. RECOMMENDATIONS AND DISCUSSION: In this 50-year-old woman who presented with multiple complex medical issues, we will monitor the patient closely. Continue the current medications, continue the symptomatic treatment. Otherwise, at this time broad spectrum IV antibiotics. Continue to monitor. The prognosis is extremely guarded because of multiple complex medical issues as described above. The patient has major complications with narcotics earlier. I strongly recommended rehab. shore worker will be consulted. Infectious Disease will also be consulted. Prognosis guarded because of multiple complex medical issues. Further recommendations to follow. Orthopedics will also be consulted. Copy of dictation will be forwarded to Dr. Marte, who is the primary physician.
[2016-08-11 11:26] LABS: Glucose,Whole Blood 154 mg/dL (75-99)
[2016-08-11 12:47] VITALS: BMI 28.4
[2016-08-11] MEDS: CHOLECALCIFEROL 1,000 UNIT TAB PO SCH (12:49)
[2016-08-11] MEDS: IBUPROFEN 400 MG TAB PO PRN ×2 (13:36→21:02)
--- NOTE | 2016-08-11 16:27 | CONS ---
DATE OF CONSULTATION: 08/11/2016 REASON FOR CONSULTATION: Right hand cellulitis and abscess. HISTORY OF PRESENT ILLNESS: The patient is a 50-year-old female whose past medical history is significant for IV drug use because the patient has been doing it for about a year. The patient last used by injecting in her right hand, dorsum area, about 5 days ago. A few days later the area became more swollen, more red and painful; pain described to be throbbing, about 5 out of 10, and no radiation. The patient subsequently was evaluated by the ER physician at [facility]. The patient did have I&D of the area and cultures were obtained. She was started on Unasyn and vancomycin. ID was consulted for further recommendation regarding antibiotic therapy. Patient denies having any swelling or redness in any other part of the body. The patient denies having any chest pain or shortness of breath or cough. No abdominal pain and no diarrhea. REVIEW OF SYSTEMS: CONSTITUTIONAL: Positive for weakness. No high-grade fever. EYES: No complaint. ENT: No complaint. RESPIRATORY: No complaint. CARDIOVASCULAR: No complaint. GENITOURINARY: No complaint. GASTROINTESTINAL: No complaint. MUSCULOSKELETAL: As per HPI. INTEGUMENTARY: As per HPI. PSYCHOLOGIC: No complaint. ENDOCRINE: No complaint. NEUROLOGIC: No complaint. PAST MEDICAL HISTORY: 1. CVA, TIA. 2. Diabetes mellitus. 3. Hypertension. 4. Hyperlipidemia. 5. Liver disease. PAST SURGICAL HISTORY: 1. Cholecystectomy. 2. Tonsillectomy. 3. Tubal ligation. SOCIAL HISTORY: The patient is a current everyday smoker. Denies any drinking, though did admit to IV drug use; last time more than 5 days ago. FAMILY HISTORY: Mother with history of Leelee's disease. ALLERGY: HYDROMORPHONE. CURRENT MEDICATIONS: 1. Tylenol. 2. Unasyn. 3. Vitamin D3. 4. Catapres. 5. Lasix. 6. Neurontin. 7. Heparin. 8. Motrin. 9. Lantus. 10. Humalog. 11. Toradol. 12. Zestril. 13. Glucophage. 14. Narcan. 15. Nicotine patch. 16. Zyprexa. 17. Vancomycin 1250 q.8. On examination, blood pressure is 195/98 with a pulse of 66, temperature 97.7. She is 95% on room air. General description is a middle-aged female up in the bed in no distress. No tachypnea or accessory muscle of respiration use. HEENT examination shows no pallor, no scleral icterus. Oral mucous membrane is dry. NECK: Trachea is central. No thyromegaly. LUNGS: Unlabored breathing. Clear to auscultation anteriorly. HEART: S1, S2. Regular rate and rhythm. ABDOMEN: Soft. No tenderness. EXTREMITIES: No edema of the feet. EXAMINATION OF RIGHT HAND ON DORSUM: Some swelling and redness noticed. No significant purulent drainage was noticed. Neurologically patient is awake, alert, oriented x3. Mood and affect normal. LABS: Hemoglobin is 16.4, white count 5.6 with a BUN of 7, creatinine 0.54. Liver enzymes are slightly elevated. Wound culture currently pending. DIAGNOSTIC IMPRESSION AND PLAN: Patient with right hand dorsum abscess and secondary cellulitis from IV drug use, more likely due to Gram-positive skin gage with high suspicion for possible MRSA infection. Gram-negative less likely but not entirely excluded. PLAN: 1. Vancomycin, Pharmacy to dose. Target trough of 15. To continue while waiting for the culture to finalize. 2. Will reevaluate the patient tomorrow. Depending on the culture report and the clinical response, will adjust antibiotics further. Thank you for this consultation. Will follow this patient along with you. RASHMI
[2016-08-11] MEDS: cloNIDine HCL 0.1 MG TAB PO SCH ×2 (17:21→21:08)
[2016-08-11] MEDS: KETOROLAC 30 MG/ML 1 ML VIAL IVP PRN (17:22)
[2016-08-11 17:43] LABS: Glucose,Whole Blood 118 mg/dL (75-99)
--- NOTE | 2016-08-11 18:48 | PN ---
DATE OF SERVICE: 08/11/2016 This 50-year-old woman who was admitted with a right arm severe abscess also had possible cellulitis. The patient is being closely monitored. The patient is on IV antibiotics. No chest pain. No palpitation. No fever. On examination, alert and oriented x3. Pulse 66, blood pressure 195/98, respiration 18, temperature 97.6, pulse ox 94% on room air. HEENT: Conjunctivae normal. NECK: No jugular venous distention. CARDIOVASCULAR SYSTEM: S1, S2 muffled. RESPIRATORY: Breath sounds diminished at the bases. A few scattered rhonchi and crackles. ABDOMEN: Soft, nontender. LEGS: No edema. No swelling. NERVOUS SYSTEM: No focal deficit. LABS: WBC 5.6, hemoglobin 16.4. Accu-Cheks 154. AST is 81 and ALT is 66. Albumin is 3.4. ASSESSMENT: 1. Right arm severe abscess with cellulitis, possibly secondary to IV drug abuse. 2. History of heroin abuse. 3. Thrombocytopenia, multifactorial. 4. Increased hemoglobin. 5. Possible heroin withdrawal. 6. Diabetes mellitus, type 2. 7. Increased AST, ALT; possible acute hepatitis. 8. Hypoalbuminemia with mild to moderate protein-calorie malnutrition. 9. Cerebrovascular accident, transient ischemic attack. 10. Hypertension, essential, history. 11. Hyperlipidemia. 12. History of chronic liver disease, possibly secondary to alcohol and hepatitis. 13. History of cholecystectomy. 14. History of tubal ligation. 15. History of bipolar, depression, posttraumatic stress disorder not otherwise specified. 16. History of nicotine dependence. 17. History of polysubstance abuse. 18. History of narcotic overdose and mechanical ventilation recently. 19. Hypertension. 20. FULL CODE. RECOMMENDATIONS AND DISCUSSION: I recommend to continue current medications, continue with symptomatic treatment. Otherwise, at this time will continue with IV antibiotics. Closely follow with Orthopedic Surgery. Patient is on Unasyn and vancomycin. Further recommendations to follow. Will initiate clonidine also.
[2016-08-11 20:25] LABS: Glucose,Whole Blood 155 mg/dL (75-99)
[2016-08-11] MEDS: OLANZapine 10 MG TAB PO SCH (20:53)
[2016-08-12] MEDS: AMPICILLIN-SULBACTAM 3 GM in SODIUM CHLORIDE 0.9% 100 ML IVPB SCH ×2 (00:27→05:53)
[2016-08-12] MEDS: VANCOMYCIN 1,250 MG in SODIUM CHLORIDE 0.9% 250 ML IVPB SCH ×3 (01:54→16:48)
[2016-08-12] MEDS: KETOROLAC 30 MG/ML 1 ML VIAL IVP PRN ×3 (04:40→19:28)
[2016-08-12 07:44] LABS: Glucose,Whole Blood 156 mg/dL (75-99)
[2016-08-12] MEDS: SODIUM CHLORIDE 0.9% 1,000 ML IV SCH ×3 (08:13→19:32)
[2016-08-12] MEDS: NICOTINE 21MG/24HR PATCH TRANSDERM SCH (08:15)
[2016-08-12] MEDS: INSULIN LISPRO (humaLOG) 300 UNIT/3 ML VIAL SQ SCH ×4 (08:15→20:49)
[2016-08-12] MEDS: VENLAFAXINE HCL ER 150 MG CAP PO SCH (08:16)
[2016-08-12] MEDS: metFORMIN 500 MG TAB PO SCH ×3 (08:16→17:49)
[2016-08-12] MEDS: LISINOPRIL 10 MG TAB PO SCH (08:16)
[2016-08-12] MEDS: FUROSEMIDE 20 MG TAB PO SCH (08:16)
[2016-08-12] MEDS: HEPARIN SODIUM,PORCINE 5,000 UNIT/ML 1 ML VIAL SQ SCH ×2 (08:17→20:50)
[2016-08-12] MEDS: POTASSIUM CHLORIDE ER 10 MEQ TAB.ER.PRT PO SCH (08:17)
[2016-08-12] MEDS: cloNIDine HCL 0.1 MG TAB PO SCH ×3 (08:17→20:50)
[2016-08-12] MEDS: GABAPENTIN 300 MG CAP PO SCH ×3 (08:17→20:50)
[2016-08-12] MEDS: CHOLECALCIFEROL 1,000 UNIT TAB PO SCH (08:17)
[2016-08-12] MEDS: INSULIN GLARGINE 100 UNIT/ML 10 ML VIAL SQ SCH ×2 (08:31→20:58)
[2016-08-12 09:29] LABS: Basophils % (A) 1 %; CH 31.3; CHCM 33.7; Eosinophils # (A) 0.1 k/uL (0-0.7); Eosinophils % (A) 3 %; HCT 44.3 % (34.0-46.0); HDW 2.67; HGB 14.7 gm/dL (11.4-16.0); Luc # (Auto) 0.09; Luc % (Auto) 2; Lymphocytes # (A) 1.6 k/uL (1.0-4.8); Lymphocytes % (A) 37 %; MCH 30.9 pg (25.0-35.0); MCHC 33.2 g/dL (31.0-37.0); MCV 93.3 fL (80.0-100.0); Mean Platelet Volume 7.3; Monocytes # (A) 0.2 k/uL (0-1.0); Monocytes % (A) 6 %; Neutrophils # (A) 2.2 k/uL (1.3-7.7); Neutrophils % (A) 51 %; RBC 4.75 m/uL (3.80-5.40); RDW 12.7 % (11.5-15.5); WBC 4.3 k/uL (3.8-10.6); WBC (Perox) 4.39
[2016-08-12 10:00] LABS: Anion Gap 11 mmol/L; Blood Urea Nitrogen 11 mg/dL (7-17); Calcium 8.4 mg/dL (8.4-10.2); Carbon Dioxide 23 mmol/L (22-30); Chloride 109 mmol/L (98-107); Glucose 217 mg/dL (74-99); Non-African American GFR(MDRD) >60 (>60 ml/min/1.73 sqM); Potassium 3.5 mmol/L (3.5-5.1); Sodium 143 mmol/L (137-145)
[2016-08-12 11:29] LABS: Glucose,Whole Blood 158 mg/dL (75-99)
--- NOTE | 2016-08-12 12:09 | P.PN ---
Subjective Principal diagnosis: Right hand abcess, cellulitis Patient is seen at bedside this morning. We are following her for right hand cellulitis and abcess. She has been on IV Vancomycin and Unasyn. She feels like the pain and swelling in her hand is improved. She has no new complaints today. She denies numbness or tingling. She is denying fever, chills, chest pain, or shortness of breath Objective - Vital Signs Vital signs: Vital Signs Temp 97.7 F 08/11/16 07:00 Pulse 76 08/12/16 08:00 Resp 18 08/12/16 07:00 BP 168/97 08/12/16 07:00 Pulse Ox 95 08/12/16 07:00 Intake & Output 08/11/16 08/12/16 08/12/16 18:59 06:59 18:59 Intake Total 1430 1620 Balance 1430 1620 Weight 77.6 kg Intake: Intake, IV Titration 1190 1620 Amount Ampicillin-Sulbactam 3 gm 100 300 In Sodium Chloride 0.9% 100 ml @ 100 mls/hr IVPB Q6HR [facility] Rx#:[id number] Sodium Chloride 0.9% 1, 840 1320 000 ml @ 120 mls/hr IV . Q8H20M [facility] Rx#:[id number] Vancomycin 1,250 mg In 250 Sodium Chloride 0.9% 250 ml @ 125 mls/hr IVPB Q8HR [facility] Rx#:[id number] Oral 240 Other: Voiding Method Toilet Toilet Toilet - Exam There is improved erythema and swelling across the dorsum of the hand. There is a small abcess at the area between the 2nd/3rd metacarpal as yesterday. Tenderness improved. No fluctuance or fluid collection. There has been minimal drainage. No active bleeding. Sensation and motor intact throughout the hand and digits. Less than 2 sec cap refill. - Constitutional General appearance: Present: no acute distress - Psychiatric Psychiatric: Present: A&O x's 3, appropriate affect, intact judgment & insight - Labs CBC & Chem 7: 08/12/16 08:14 08/12/16 08:14 Labs: Abnormal Lab Results - Last 24 Hours (Table) 08/11/16 08/11/16 08/12/16 Range/Units 17:41 20:24 07:40 Plt Count (150-450) k/uL Chloride (98-107) mmol/L Creatinine (0.52-1.04) mg/dL Glucose (74-99) mg/dL POC Glucose (mg/dL) 118 H 155 H 156 H (75-99) mg/dL 08/12/16 08/12/16 08/12/16 Range/Units 08:14 08:14 11:03 Plt Count 119 L (150-450) k/uL Chloride 109 H (98-107) mmol/L Creatinine 0.50 L (0.52-1.04) mg/dL Glucose 217 H (74-99) mg/dL POC Glucose (mg/dL) 158 H (75-99) mg/dL Microbiology - Last 24 Hours (Table) 08/10/16 15:30 Blood Culture Gram Stain - Preliminary Blood 08/10/16 15:30 Blood Culture - Preliminary Blood 08/10/16 15:30 Gram Stain - Preliminary Hand - Right Wound Culture - Preliminary Assessment and Plan (1) Abscess of right hand Status: Acute (2) Cellulitis of right hand Status: Acute Plan: Again, while examining the patient, I was able to express a very small amount of purulent drainage. There are signs of cellulitis improvement. She will continue with warm soapy soaks for 10-15 minutes twice a day. She'll continue on IV vancomycin and Unasyn covering the likely bacterial etiology. We'll continue to monitor improvement. If the hand worsens, we'll consider more invasive I&D and packing. Further recommendations to follow. Time with Patient: Less than 30
--- NOTE | 2016-08-12 13:16 | PN ---
A 50-year-old admitted with cellulitis of the right dorsum aspect after using heroin IV and patient is positive for hep C at home. Patient says her redness and abscess improved, although this is the first day I examined her. Cultures are still pending, apparently preliminary Gram stain is showing gram-positive cocci. REVIEW OF SYSTEMS: CARDIOVASCULAR: No chest pain, no orthopnea, no PND, no palpitations. PULMONARY: Denied any shortness of breath. No cough or hemoptysis. GASTROINTESTINAL: No diarrhea, nausea or vomiting. No abdominal pain. Normoactive bowel sounds. NEUROLOGIC: No headaches, no weakness, no numbness. DERMATOLOGIC: As described in HPI. Medications were reviewed. PHYSICAL EXAMINATION: VITAL SIGNS: Temperature 97.7, pulse of 76, respiratory rate of 18, blood pressure is 168/97, saturating at 95% on room air. GENERAL: The patient is alert and oriented x3, not in any acute distress. Well developed, well nourished. HEENT: Pupils are round and equally reacting to light. EOMI. No scleral icterus. No conjunctival pallor. Normocephalic, atraumatic. No pharyngeal erythema. No thyromegaly. CARDIOVASCULAR: S1 and S2 present. No murmurs, rubs, or gallops. PULMONARY: Chest is clear to auscultation, no wheezing or crackles. ABDOMEN: Soft, nontender, nondistended, normoactive bowel sounds. No palpable organomegaly. MUSCULOSKELETAL: No joint swelling or deformity. EXTREMITIES: No cyanosis, clubbing, or pedal edema. NEUROLOGICAL: Gross neurological examination did not reveal any focal deficits. DERMATOLOGIC EXAM: The patient has cellulitis of the right ( ) dorsal aspect with a possible small abscess in that area with surrounding redness localized of temperature. LABORATORY DATA: CBC, CMP essentially within normal limits. ASSESSMENT AND PLAN: 1. Right arm abscess and cellulitis secondary to IV drug use. Continue with vancomycin. Awaiting culture and sensitivities. Possibility of discharge tomorrow. Once we have the cultures and sensitivities, we will switch her to oral antibiotics. For now, we will continue with ( ) vancomycin. 2. History of heroin use, counseling was provided. 3. Thrombocytopenia, probably due to chronic liver disease mild secondary to hepatitis C. 4. Elevated liver enzymes secondary to hepatitis C. 5. History of cerebrovascular accident/transient ischemic attack in the past. 6. Hypertension. 7. Hyperlipidemia. 8. Bipolar disorder. For above mentioned chronic medical problems, I will go ahead and continue her home medications. Patient is on both ketorolac and ibuprofen only on p.r.n. basis because of which I am going ahead and continue those medications. Diabetes mellitus for which patient is on fairly controlled blood sugars at this point of time. Continue with present regimen of metformin and insulin.
--- NOTE | 2016-08-12 15:20 | PN ---
DATE OF SERVICE: 08/12/2016 Reason for followup is right hand cellulitis and abscess. INTERVAL HISTORY: The patient is afebrile. She is currently feeling better. Denies any worsening pain to the right hand area. No further drainage. Denies any chest pain, shortness of breath, cough. No abdominal pain or any diarrhea. On examination, blood pressure is 168/97 with a pulse of 76, temperature 98, she is 95% on room air. General description is a middle-age female, lying in bed in no distress. RESPIRATORY SYSTEM: Unlabored breathing. Clear to auscultation. HEART: S1, S2. Regular rate and rhythm. ABDOMEN: Soft, no tenderness. Right hand dorsum area with small wound, surrounding redness slightly improved. No drainage was noticed. LABS: Hemoglobin is 14.7, white count of 4.2 with a BUN of 11, creatinine 0.50. Would cultures are currently pending. Blood culture now showing a gram-positive cocci. DIAGNOSTIC IMPRESSION AND PLAN: Patient with right hand dorsum abscess from injection drug use, now with a positive blood culture. Patient to continue vancomycin, pharmacy to dose waiting for the culture to finalize. Blood pressure repeated, which showed evidence of any persistent bacteremia discontinue the Unasyn. Local wound care with Aquacel Silver. Continue supportive care.
[2016-08-12 17:27] LABS: Glucose,Whole Blood 137 mg/dL (75-99)
[2016-08-12 20:45] LABS: Glucose,Whole Blood 94 mg/dL (75-99)
[2016-08-12] MEDS: OLANZapine 10 MG TAB PO SCH (20:50)
[2016-08-13] MEDS: ceFAZolin 2 GM in SODIUM CHLORIDE 0.9% 100 ML IVPB SCH ×4 (00:01→23:20)
[2016-08-13] MEDS: KETOROLAC 30 MG/ML 1 ML VIAL IVP PRN ×4 (02:04→22:34)
[2016-08-13] MEDS: SODIUM CHLORIDE 0.9% 1,000 ML IV SCH ×3 (03:05→20:59)
[2016-08-13 07:47] LABS: Glucose,Whole Blood 104 mg/dL (75-99)
[2016-08-13] MEDS: INSULIN LISPRO (humaLOG) 300 UNIT/3 ML VIAL SQ SCH ×4 (07:55→20:57)
[2016-08-13] MEDS: NICOTINE 21MG/24HR PATCH TRANSDERM SCH (07:56)
[2016-08-13] MEDS: cloNIDine HCL 0.1 MG TAB PO SCH ×3 (07:57→20:51)
[2016-08-13] MEDS: FUROSEMIDE 20 MG TAB PO SCH (07:57)
[2016-08-13] MEDS: VENLAFAXINE HCL ER 150 MG CAP PO SCH (07:58)
[2016-08-13] MEDS: INSULIN GLARGINE 100 UNIT/ML 10 ML VIAL SQ SCH ×2 (07:58→20:56)
[2016-08-13] MEDS: GABAPENTIN 300 MG CAP PO SCH ×3 (07:58→20:50)
[2016-08-13] MEDS: LISINOPRIL 10 MG TAB PO SCH (07:58)
[2016-08-13] MEDS: metFORMIN 500 MG TAB PO SCH ×3 (07:58→17:00)
[2016-08-13] MEDS: HEPARIN SODIUM,PORCINE 5,000 UNIT/ML 1 ML VIAL SQ SCH ×2 (07:59→20:51)
[2016-08-13] MEDS: POTASSIUM CHLORIDE ER 10 MEQ TAB.ER.PRT PO SCH (08:00)
[2016-08-13 08:05] LABS: Basophils % (A) 1 %; CH 31.5; CHCM 34.1; Eosinophils # (A) 0.2 k/uL (0-0.7); Eosinophils % (A) 4 %; HCT 46.4 % (34.0-46.0); HDW 2.69; HGB 15.1 gm/dL (11.4-16.0); Luc # (Auto) 0.08; Luc % (Auto) 2; Lymphocytes # (A) 1.9 k/uL (1.0-4.8); Lymphocytes % (A) 42 %; MCH 30.1 pg (25.0-35.0); MCHC 32.5 g/dL (31.0-37.0); MCV 92.7 fL (80.0-100.0); Mean Platelet Volume 6.9; Monocytes # (A) 0.2 k/uL (0-1.0); Monocytes % (A) 5 %; Neutrophils # (A) 2.1 k/uL (1.3-7.7); Neutrophils % (A) 46 %; RDW 12.8 % (11.5-15.5); WBC 4.6 k/uL (3.8-10.6); WBC (Perox) 4.55
[2016-08-13 08:22] LABS: Anion Gap 12 mmol/L; Blood Urea Nitrogen 14 mg/dL (7-17); Calcium 8.8 mg/dL (8.4-10.2); Carbon Dioxide 21 mmol/L (22-30); Chloride 111 mmol/L (98-107); Glucose 106 mg/dL (74-99); Non-African American GFR(MDRD) >60 (>60 ml/min/1.73 sqM); Potassium 3.9 mmol/L (3.5-5.1); Sodium 144 mmol/L (137-145)
--- NOTE | 2016-08-13 09:52 | P.PN ---
Subjective Principal diagnosis: Right hand abcess, cellulitis Patient is seen at bedside this morning. We are following her for right hand cellulitis and abcess. She has been on IV Vancomycin. Unasyn has been discontinued per infectious disease. Cultures have returned with gram positive alpha hemolytic cocci. She feels like the pain and swelling in her hand continues to improve. She has no new complaints today. She denies numbness or tingling. She is denying fever, chills, chest pain, abdominal pain, diarrhea calf pain or shortness of breath. Objective - Vital Signs Vital signs: Vital Signs Temp 97.5 F L 08/13/16 07:00 Pulse 57 L 08/13/16 07:00 Resp 18 08/13/16 07:00 BP 187/86 08/13/16 07:00 Pulse Ox 97 08/13/16 07:00 Intake & Output 08/12/16 08/13/16 08/13/16 18:59 06:59 18:59 Intake Total 850 1510 Balance 850 1510 Intake: IV 100 650 Ampicillin-Sulbactam 3 gm 100 In Sodium Chloride 0.9% 100 ml @ 100 mls/hr IVPB Q6HR [facility] Rx#:[id number] Sodium Chloride 0.9% 1, 550 000 ml @ 120 mls/hr IV . Q8H20M [facility] Rx#:[id number] ceFAZolin 2 gm In Sodium 100 Chloride 0.9% 100 ml @ 100 mls/hr IVPB Q8HR [facility] Rx#:[id number] Intake, IV Titration 750 Amount Sodium Chloride 0.9% 1, 500 000 ml @ 120 mls/hr IV . Q8H20M [facility] Rx#:[id number] Vancomycin 1,250 mg In 250 Sodium Chloride 0.9% 250 ml @ 125 mls/hr IVPB Q8HR [facility] Rx#:[id number] Oral 860 Other: Voiding Method Toilet Toilet # Voids 3 - Exam There continues to be improvement with erythema and swelling across the dorsum of the hand. The erythema appears to be resolved today. New dressing in place. The abcess at the dorsum of the hand appears to be resolving and draining. Tenderness improved. No fluctuance or fluid collection. No active bleeding. Sensation and motor intact throughout the hand and digits. Less than 2 sec cap refill. - Constitutional General appearance: Present: no acute distress - Psychiatric Psychiatric: Present: A&O x's 3, appropriate affect, intact judgment & insight - Labs CBC & Chem 7: 08/13/16 07:43 08/13/16 07:43 Labs: Abnormal Lab Results - Last 24 Hours (Table) 08/12/16 08/12/16 08/12/16 Range/Units 08:14 11:03 17:25 Hct (34.0-46.0) % Plt Count (150-450) k/uL Chloride 109 H (98-107) mmol/L Carbon Dioxide (22-30) mmol/L Creatinine 0.50 L (0.52-1.04) mg/dL Glucose 217 H (74-99) mg/dL POC Glucose (mg/dL) 158 H 137 H (75-99) mg/dL 08/13/16 08/13/16 08/13/16 Range/Units 07:42 07:43 07:43 Hct 46.4 H (34.0-46.0) % Plt Count 124 L (150-450) k/uL Chloride 111 H (98-107) mmol/L Carbon Dioxide 21 L (22-30) mmol/L Creatinine (0.52-1.04) mg/dL Glucose 106 H (74-99) mg/dL POC Glucose (mg/dL) 104 H (75-99) mg/dL Microbiology - Last 24 Hours (Table) 08/10/16 15:30 Blood Culture Gram Stain - Preliminary Blood Blood Culture - Preliminary Alpha Hemolytic Streptococcus 08/10/16 15:30 Gram Stain - Preliminary Hand - Right Wound Culture - Preliminary Alpha Hemolytic Streptococcus Assessment and Plan (1) Abscess of right hand Status: Acute (2) Cellulitis of right hand Status: Acute Plan: The cellulitis across the dorsum of the hand appears to be mostly resolved. The abcess is improving. She will continue with warm soapy soaks for 10-15 minutes twice a day. Wound care/bandage per infectious disease. She'll continue on IV vancomycin per infectious disease. At this point, I don't believe surgical or invasive intervention will be required from orthopedics and thus will sign off. We will be happy to revisit the patient should it be requested. Thank you Time with Patient: Less than 30
[2016-08-13 11:08] LABS: Glucose,Whole Blood 175 mg/dL (75-99)
--- NOTE | 2016-08-13 12:52 | DS ---
DATE OF ADMISSION: 08/13/2016 DATE OF DISCHARGE: This dictation is both Progress Note and Discharge Summary. Patient is a 50-year-old admitted with cellulitis with abscess of the right dorsum aspect leading to bacteremia and sepsis and patient does have history of hepatitis C for which patient will need to follow with Gastroenterology and patient's bacteremia, patient's blood cultures were negative that were drawn from yesterday. If cleared by Infectious Disease, patient will be discharged probably on Keflex for about 10 days completing a 14-day course of therapy for bacteremia. Regarding the hand, hand abscess and cellulitis appear to have improved. Patient is otherwise, clinically doing well. REVIEW OF SYSTEMS: CARDIOVASCULAR: No chest pain, no orthopnea, no PND, no palpitations. PULMONARY: Denied any shortness of breath. No cough or hemoptysis. GASTROINTESTINAL: No diarrhea, nausea or vomiting. No abdominal pain. Normoactive bowel sounds. NEUROLOGIC: No headaches, no weakness, no numbness. Medications were reviewed. PHYSICAL EXAMINATION: Temperature 97.5, pulse of 60, respiratory rate of 18, blood pressure is 187/86, saturating at 97% on room air. GENERAL: The patient is alert and oriented x3, not in any acute distress. Well developed, well nourished. HEENT: Pupils are round and equally reacting to light. EOMI. No scleral icterus. No conjunctival pallor. Normocephalic, atraumatic. No pharyngeal erythema. No thyromegaly. CARDIOVASCULAR: S1 and S2 present. No murmurs, rubs, or gallops. PULMONARY: Chest is clear to auscultation, no wheezing or crackles. ABDOMEN: Soft, nontender, nondistended, normoactive bowel sounds. No palpable organomegaly. MUSCULOSKELETAL: No joint swelling or deformity. NEUROLOGICAL: Gross neurological examination did not reveal any focal deficits. SKIN: No rashes. EXTREMITIES: Right dorsal aspect cellulitis and abscess, significantly improved. LABORATORY DATA: Patient was mildly hyperchloremic because of the IV fluids. ASSESSMENT AND PLAN: 1. The right hand abscess with cellulitis secondary to IV drug use and patient's wound cultures and blood cultures are positive for alpha hemolytic streptococci and repeat blood cultures are so far negative. 2. History of heroin use, counseling was provided and patient will need to follow up with Gastroenterology as an outpatient for her hepatitis C. 3. Thrombocytopenia. 4. Mildly elevated liver enzymes secondary to chronic hepatitis C. 5. History of cerebrovascular accident in the past. 6. Hypertension. 7. Hyperlipidemia. 8. Bipolar disorder. Please refer to my depart summary for the list of discharge medications. DISCHARGE DIET: Cardiac diet and follow Dr. Venessa Marte in [address] to [address] Mariana Goff in about 2 to 4 weeks. Activity as tolerated. Patient will probably go to drug rehabilitation program after this hospitalization. Spent greater than 35 minutes in total discharge process.
[2016-08-13] MEDS: CHOLECALCIFEROL 1,000 UNIT TAB PO SCH (13:00)
--- NOTE | 2016-08-13 16:38 | PN ---
DATE OF SERVICE: 08/13/2016 REASON FOR FOLLOWUP: Right hand abscess cellulitis and bacteremia. INTERVAL HISTORY: The patient is afebrile. She is breathing comfortably. Denies any significant chest pain or cough and no abdominal pain or any diarrhea. On examination, blood pressure is 187/86 with a pulse of 57, temperature 97.5. She is 97% on room air. General description is a middle-aged female up in the chair in no distress. RESPIRATORY SYSTEM: Unlabored breathing. Clear to auscultation anteriorly. HEART: S1, S2. Regular rate and rhythm. ABDOMEN: Soft. No tenderness. Right hand swelling and redness have improved. LABS: Hemoglobin is 15.1, white count 4.6 with a BUN of 14, creatinine 0.56. Blood cultures repeat continue to be so far negative. DIAGNOSTIC IMPRESSION AND PLAN: Patient with alpha hemolytic strep bacteremia. Source is right hand abscess, status post spontaneous drainage. Plan is to continue the patient on cefazolin 2 grams q.8 for another 24 hours to make sure the follow-up blood cultures are negative before discharging her on oral antibiotics. Continue supportive care.
[2016-08-13 17:40] LABS: Glucose,Whole Blood 122 mg/dL (75-99)
[2016-08-13] MEDS: OLANZapine 10 MG TAB PO SCH (20:50)
[2016-08-13 20:55] LABS: Glucose,Whole Blood 148 mg/dL (75-99)
[2016-08-14] MEDS: KETOROLAC 30 MG/ML 1 ML VIAL IVP PRN ×2 (06:04→13:36)
[2016-08-14] MEDS: SODIUM CHLORIDE 0.9% 1,000 ML IV SCH ×2 (06:06→11:40)
[2016-08-14 08:16] LABS: Glucose,Whole Blood 155 mg/dL (75-99)
[2016-08-14] MEDS: cloNIDine HCL 0.1 MG TAB PO SCH (08:18)
[2016-08-14] MEDS: FUROSEMIDE 20 MG TAB PO SCH (08:18)
[2016-08-14] MEDS: INSULIN LISPRO (humaLOG) 300 UNIT/3 ML VIAL SQ SCH ×2 (08:18→11:40)
[2016-08-14] MEDS: metFORMIN 500 MG TAB PO SCH ×2 (08:18→13:37)
[2016-08-14 08:19] VITALS: RESP 18
[2016-08-14] MEDS: HEPARIN SODIUM,PORCINE 5,000 UNIT/ML 1 ML VIAL SQ SCH (08:19)
[2016-08-14] MEDS: NICOTINE 21MG/24HR PATCH TRANSDERM SCH (08:19)
[2016-08-14] MEDS: POTASSIUM CHLORIDE ER 10 MEQ TAB.ER.PRT PO SCH (08:19)
[2016-08-14] MEDS: GABAPENTIN 300 MG CAP PO SCH (08:19)
[2016-08-14] MEDS: LISINOPRIL 10 MG TAB PO SCH (08:19)
[2016-08-14] MEDS: VENLAFAXINE HCL ER 150 MG CAP PO SCH (08:20)
[2016-08-14] MEDS: INSULIN GLARGINE 100 UNIT/ML 10 ML VIAL SQ SCH (08:29)
[2016-08-14] MEDS: ceFAZolin 2 GM in SODIUM CHLORIDE 0.9% 100 ML IVPB SCH (08:29)
[2016-08-14 08:51] LABS: Basophils % (A) 1 %; CH 31.6; CHCM 35.2; Eosinophils # (A) 0.2 k/uL (0-0.7); Eosinophils % (A) 3 %; HCT 46.2 % (34.0-46.0); HDW 2.84; HGB 15.8 gm/dL (11.4-16.0); Luc # (Auto) 0.09; Luc % (Auto) 2; Lymphocytes # (A) 1.8 k/uL (1.0-4.8); Lymphocytes % (A) 36 %; MCH 30.9 pg (25.0-35.0); MCHC 34.3 g/dL (31.0-37.0); MCV 90.1 fL (80.0-100.0); Mean Platelet Volume 7.1; Monocytes # (A) 0.3 k/uL (0-1.0); Monocytes % (A) 6 %; Neutrophils # (A) 2.6 k/uL (1.3-7.7); Neutrophils % (A) 52 %; RBC 5.12 m/uL (3.80-5.40); RDW 12.5 % (11.5-15.5); WBC 4.9 k/uL (3.8-10.6); WBC (Perox) 4.56
[2016-08-14 09:05] LABS: Anion Gap 9 mmol/L; Blood Urea Nitrogen 19 mg/dL (7-17); Calcium 8.8 mg/dL (8.4-10.2); Carbon Dioxide 28 mmol/L (22-30); Chloride 105 mmol/L (98-107); Glucose 186 mg/dL (74-99); Non-African American GFR(MDRD) >60 (>60 ml/min/1.73 sqM); Potassium 4.1 mmol/L (3.5-5.1); Sodium 142 mmol/L (137-145)
[2016-08-14 11:17] LABS: Glucose,Whole Blood 123 mg/dL (75-99)
[2016-08-14] MEDS: CHOLECALCIFEROL 1,000 UNIT TAB PO SCH (13:37)
--- NOTE | 2016-08-14 14:32 | DS ---
DATE OF ADMISSION: 08/13/2016 DATE OF DISCHARGE: Patient was not discharged yesterday because we want to wait until at least 48 hours of repeat blood cultures to see if they are negative. As patient's blood cultures are negative for 2 days, patient will be discharged today. I dictated discharge summary yesterday. Please refer to that for further details. Patient was seen and examined on the day of discharge today. Vitals are stable. Patient has improvement in her cellulitis and abscess even compared to yesterday.
[2016-08-14 15:32] VITALS: BP 136/79; PULSE 68; TEMP 97.7
--- NOTE | 2016-08-14 15:47 | PN ---
DATE OF SERVICE: 08/14/2016 REASON FOR FOLLOWUP: Right hand abscess and cellulitis with bacteremia secondary to alpha hemolytic Streptococcus. INTERVAL HISTORY: The patient is afebrile. She is feeling better, breathing comfortably. Denies significant chest pain. No cough and no abdominal pain. Denies any worsening pain to the right hand area. No drainage. On examination, blood pressure is 136/79 with a pulse of 68, temperature 97.7. She is 97% on room air. General description is a middle-aged female up in the chair in no distress. RESPIRATORY SYSTEM: Unlabored breathing. Clear to auscultation anteriorly. HEART: S1, S2. Regular rate and rhythm. ABDOMEN: Soft. No tenderness. LABS: Hemoglobin is 15.8, white count 4.9. BUN of 19, creatinine 0.65. Follow-up blood culture of 08/12 has been negative. DIAGNOSTIC IMPRESSION AND PLAN: Patient with a right hand abscess and cellulitis from injection drug use. Blood culture as well as local culture positive for alpha hemolytic Strep. Follow-up blood culture has been negative. She is being switched over to Keflex 500 mg daily for another 10 days; prescription was sent to the pharmacy. Aquacel Silver dressing to the wound. Followup in the office in about a week. Continue supportive care.
== END 2016-08-14 15:43 | disposition home or self-care (01) | DRG 603 ==
LOC: EC 12:54 → 3OBS 16:14 → 5MS5E 20:01 → OBSVTOIN 08-13 07:37
PROVIDERS: ADMIT Hospitalist; ATTEND Hospitalist
DX: L02.511 Cutaneous abscess of right hand (principal); D69.6 Thrombocytopenia, unspecified; E44.0 Moderate protein-calorie malnutrition; R78.81 Bacteremia; L03.113 Cellulitis of right upper limb; E11.9 Type 2 diabetes mellitus without complications; I10 Essential (primary) hypertension; F11.10 Opioid abuse, uncomplicated; B95.4 Other streptococcus as the cause of diseases classified elsewhere; B18.2 Chronic viral hepatitis C; E78.5 Hyperlipidemia, unspecified; F10.21 Alcohol dependence, in remission; F17.200 Nicotine dependence, unspecified, uncomplicated; F31.9 Bipolar disorder, unspecified; F43.10 Post-traumatic stress disorder, unspecified; Z86.73 Personal history of transient ischemic attack (TIA), and cerebral infarction without residual deficits; Z79.4 Long term (current) use of insulin; Z79.84 Long term (current) use of oral hypoglycemic drugs; Z79.899 Other long term (current) drug therapy; Z88.5 Allergy status to narcotic agent
CPT/HCPCS: 10060; 36415; 80048; 80053; 80202; 85025; 87040; 87070; 87077; 87186; 87205; 96365; 96366; 99285

== ENCOUNTER 2016-11-02 11:07 | Emergency (ER) | payer OTHER ==
[2016-11-02 11:14] VITALS: RESP 18
[2016-11-02] MEDS ORDERED: AMPICILLIN-SULBACTAM 3 GM in SODIUM CHLORIDE 0.9% 100 ML IVPB STA (12:24)
--- NOTE | 2016-11-02 12:58 | ED ---
Skin/Abscess/FB HPI - General Chief complaint: Skin/Abscess/Foreign Body Stated complaint: hand abcess Time Seen by Provider: 11/02/16 11:35 Source: patient Mode of arrival: ambulatory Limitations: no limitations - History of Present Illness Initial comments: 50 years old lady presents with the right hand swelling, she has this abscess/ cellulitis/infection for last 4 days it has been getting An hour she is having a hard time moving her hand, any movement of the fingers and hand aggravates the pain she denies any fever or chills no drainage from the wound and she denies any trauma. Review of system is otherwise unremarkable - Related Data Home Medications Medication Instructions Recorded Confirmed Insulin Glargine [Lantus] 30 unit SQ BID 02/17/16 11/02/16 Venlafaxine HCl [Effexor XR] 300 mg PO QAM 03/31/16 11/02/16 Cholecalciferol [Vitamin D3] 1,000 unit PO DAILY 06/16/16 11/02/16 Furosemide [Lasix] 20 mg PO DAILY 06/16/16 11/02/16 Gabapentin [Neurontin] 300 mg PO TID 06/16/16 11/02/16 Lisinopril [Prinivil] 10 mg PO DAILY 06/16/16 11/02/16 OLANZapine [ZyPREXA] 20 mg PO HS 06/16/16 11/02/16 Potassium Chloride ER [K-Dur 10] 10 meq PO DAILY 06/16/16 11/02/16 metFORMIN HCL [Glucophage] 500 mg PO TID 06/16/16 11/02/16 Previous Rx's Medication Instructions Recorded Amoxic-Pot Clav 875-125Mg 1 tab PO Q12HR #10 tablet 11/02/16 [Augmentin 875-125] Allergies Allergy/AdvReac Type Severity Reaction Status Date / Time hydromorphone HCl Allergy Unknown Rash/Hives Verified 11/02/16 12:05 [From Dilaudid] Review of Systems ROS Statement: Those systems with pertinent positive or pertinent negative responses have been documented in the HPI. ROS Other: All systems not noted in ROS Statement are negative. Past Medical History Past Medical History: CVA/TIA, Diabetes Mellitus, Hyperlipidemia, Hypertension, Liver Disease Additional Past Medical History / Comment(s): "past alcoholism quit year ago when she started heroin" , "hepatitis c", stroke in 04/2015 with right sided weakness, hx fall-most recent 1.5 weeks ago, resp failure/opiate od History of Any Multi-Drug Resistant Organisms: None Reported Past Surgical History: Cholecystectomy, Tonsillectomy, Tubal Ligation Additional Past Surgical History / Comment(s): esophageal surgery Past Anesthesia/Blood Transfusion Reactions: Motion Sickness Past Psychological History: Bipolar, Depression, PTSD Smoking Status: Current every day smoker Past Alcohol Use History: Abuse, None Reported Past Drug Use History: Heroin - Past Family History Mother Additional Family Medical History / Comment(s): "chorea bill disease" General Exam - General Exam Comments Initial Comments: General: The patient is awake and alert, in no distress, and does not appear acutely ill. Skin: Skin is warm and dry and no rashes or lesions are noted. Notice a large abscess on the dorsal surface of the right hand. She located on the middle of the fourth and left metacarpals is about 4.5 cm in size measures about 5 mm elevated at this swollen, tender, warm. Her range of motion is still pretty currently no neurovascular compromise noticed Eye: Pupils are equal, round and reactive to light, extra-ocular movements are intact; there is normal conjunctiva bilaterally. Ears, nose, mouth and throat: There are moist mucous membranes and no oral lesions. Neck: The neck is supple, there is no tenderness or JVD. Cardiovascular: There is a regular rate and rhythm. No murmur, rub or gallop is appreciated. Respiratory: To auscultation bilateral, no wheezing no rhonchi no distress respiratory granado noticed Gastrointestinal: Soft, non-distended, non-tender abdomen without masses or organomegaly noted. There is no rebound or guarding present. Bowel sounds are unremarkable. Back: There is no tenderness to palpation in the midline. There is no obvious deformity. Musculoskeletal: Normal ROM, no tenderness, There is no pedal edema. There is no calf tenderness or swelling. No cords were appreciated. Neurological: CN II-XII intact, Cranial nerves III through XII are intact. There are no obvious motor or sensory deficits. Coordination appears grossly intact. Speech is normal. Psychiatric: Cooperative, appropriate mood & affect, normal judgment. Limitations: no limitations Course Vital Signs 11/02/16 11:11 Temperature 96.9 F L Pulse Rate 85 Respiratory 18 Rate Blood Pressure 131/80 O2 Sat by Pulse 98 Oximetry Procedures - Incision & Drainage Time Out Performed?: Yes Indication: Large abscess Site: hand Anesthetic Used: lidocaine 1% Amount (mLs): 4 I&D Cleaning Method: Betadine Sterile Field Used?: Yes Scalpel Used: #11 Irrigation Performed?: Yes I&D Drainage Obtained: Pus Culture Obtained?: Yes Complications: pain Patient Tolerated Procedure: well (March amount of yellow pus was squeezed out, though she had no local anesthetic she was still complaining about the pain abscess seemed to loculated, I don't think I got all 100% past. Because the pain she be started on no code given one dose of antibiotics in ER and she'll be gone home on Augmentin) Disposition Clinical Impression: Hand abscess, Encounter for incision and drainage procedure Disposition: HOME SELF-CARE Instructions: Abscess Incision and Drainage (ED) Prescriptions: Amoxic-Pot Clav 875-125Mg [Augmentin 875-125] 1 tab PO Q12HR #10 tablet Referrals: Venessa Marte MD [Primary Care Provider] - 1-2 days
[2016-11-02 14:13] VITALS: BP 130/77; PULSE 81; TEMP 98.1
== END 2016-11-02 14:15 | disposition home or self-care (01) ==
LOC: EC 11:07
DX: L02.511 Cutaneous abscess of right hand (principal); E11.9 Type 2 diabetes mellitus without complications; E78.5 Hyperlipidemia, unspecified; F31.9 Bipolar disorder, unspecified; F17.200 Nicotine dependence, unspecified, uncomplicated; Z86.73 Personal history of transient ischemic attack (TIA), and cerebral infarction without residual deficits; Z88.5 Allergy status to narcotic agent; Z79.4 Long term (current) use of insulin; Z79.84 Long term (current) use of oral hypoglycemic drugs; Z79.899 Other long term (current) drug therapy
CPT/HCPCS: 99283; 10060; 96365; 87070; 87205; 87077; 87186; J0295

== ENCOUNTER 2017-04-02 20:41 | Inpatient (IN) | payer OTHER ==
--- NOTE | 2017-04-02 21:32 | XR ---
EXAMINATION TYPE: XR ankle complete LT DATE OF EXAM: 04/02/2017 COMPARISON: NONE HISTORY: Pain TECHNIQUE: 3 views FINDINGS: There is bimalleolar fracture of the left ankle. There is 1 cm lateral subluxation of the t alus. There is also posterior subluxation of the talus. There is an Achilles calcaneal spur. IMPRESSION: Displaced bimalleolar fracture of the left ankle.
--- NOTE | 2017-04-02 21:51 | ED ---
Lower Extremity Injury HPI - General Chief Complaint: Extremity Injury, Lower Stated Complaint: Fall Time Seen by Provider: 04/02/17 20:44 Source: patient, EMS Mode of arrival: EMS Limitations: no limitations - History of Present Illness Initial Comments: 51-year-old female patient presents to the emergency department today for evaluation of left ankle pain and swelling. Patient is quite intoxicated and is unable to give adequate history. She reports that it started hurting just prior to arrival. She denies any known injury. She states she is unsure why it is hurting. States that she just stood up on it and it started to hurt. She reports it as a throbbing pain. She denies any numbness or tingling to the foot. She denies any other injuries. Patient denies any headache, neck pain, back pain, chest pain, shortness of breath, dizziness, weakness, abdominal pain , nausea, vomiting, or difficulties with bowel movements or urination. - Related Data Home Medications Medication Instructions Recorded Confirmed Venlafaxine HCl [Effexor XR] 300 mg PO QAM 03/31/16 04/02/17 Lisinopril [Prinivil] 10 mg PO DAILY 06/16/16 04/02/17 OLANZapine [ZyPREXA] 20 mg PO HS 06/16/16 04/02/17 metFORMIN HCL [Glucophage] 500 mg PO TID 06/16/16 04/02/17 Albuterol Inhaler [Ventolin Hfa 1 - 2 puff INHALATION Q4-6H PRN 04/02/17 Inhaler] Allergies Allergy/AdvReac Type Severity Reaction Status Date / Time hydromorphone HCl Allergy Unknown Rash/Hives Verified 04/02/17 21:32 [From Dilaudid] Review of Systems ROS Statement: Those systems with pertinent positive or pertinent negative responses have been documented in the HPI. ROS Other: All systems not noted in ROS Statement are negative. Past Medical History Past Medical History: CVA/TIA, Diabetes Mellitus, Hyperlipidemia, Hypertension, Liver Disease Additional Past Medical History / Comment(s): "past alcoholism quit year ago when she started heroin" , "hepatitis c", stroke in 04/2015 with right sided weakness, hx fall-most recent 1.5 weeks ago, resp failure/opiate od History of Any Multi-Drug Resistant Organisms: None Reported Past Surgical History: Cholecystectomy, Tonsillectomy, Tubal Ligation Additional Past Surgical History / Comment(s): esophageal surgery Past Anesthesia/Blood Transfusion Reactions: Motion Sickness Past Psychological History: Bipolar, Depression, PTSD Smoking Status: Current every day smoker Past Alcohol Use History: Abuse Past Drug Use History: Heroin - Past Family History Mother Additional Family Medical History / Comment(s): "chorea bill disease" General Exam Limitations: no limitations General appearance: alert, in no apparent distress, appears intoxicated, other ( This is a well-developed, well-nourished, obviously intoxicated female patient in no acute distress. Vital signs upon presentation are temperature 98.7F, pulse 94, respirations 18, blood pressure 168/108, pulse ox 96% on room air.) Head exam: Present: atraumatic, normocephalic, normal inspection Eye exam: Present: normal appearance, PERRL, EOMI. Absent: scleral icterus, conjunctival injection, periorbital swelling ENT exam: Present: normal exam, normal oropharynx, mucous membranes moist Neck exam: Present: normal inspection, full ROM, other (Nontender, no step-off, no deformity to firm midline palpation of the posterior cervical spine. Full range of motion without pain or limitation.). Absent: tenderness, meningismus, lymphadenopathy Respiratory exam: Present: normal lung sounds bilaterally, wheezes (Faint expiratory wheezing throughout all posterior lung mg). Absent: respiratory distress, rales, rhonchi, stridor Cardiovascular Exam: Present: regular rate, normal rhythm, normal heart sounds. Absent: systolic murmur, diastolic murmur, rubs, gallop, clicks GI/Abdominal exam: Present: soft, normal bowel sounds. Absent: distended, tenderness, guarding, rebound, rigid Extremities exam: Present: tenderness (Tenderness surrounding the left ankle), normal capillary refill, other (There is swelling surrounding the left ankle. Patient is tender to the medial and the lateral aspect surrounding the malleoli. Pedal and posttibial pulses are 2+ and equal bilaterally. Skin is pink, warm, and dry. Cap refills less than 3 seconds.). Absent: normal inspection, full ROM (Decreased range of motion to his left ankle related to increased pain with movement), pedal edema, joint swelling, calf tenderness Neurological exam: Present: alert, oriented X3, CN II-XII intact Psychiatric exam: Present: normal affect, normal mood Skin exam: Present: warm, dry, intact, normal color. Absent: rash Course Vital Signs 04/02/17 04/02/17 20:59 22:19 Temperature 98.7 F Pulse Rate 94 94 Respiratory 18 18 Rate Blood Pressure 168/108 154/84 O2 Sat by Pulse 96 95 Oximetry Medical Decision Making - Medical Decision Making 51-year-old female patient presented to the emergency department today complaining of left ankle pain. Physical examination did reveal some swelling surrounding the left ankle. Patient was tender over the medial and lateral malleoli. X-rays were obtained and did show a displaced bimalleolar fracture of the left ankle. My attending Dr. Carey spoke to Dr. Matt who agrees to admit patient for further evaluation. Labs, EKG, and chest xray will be obtained. Patient is alcohol dependent, we will provide for withdrawal medications. - Radiology Data Radiology results: report reviewed, image reviewed Three-view x-ray of the left ankle shows a bimalleolar fracture of the left ankle. There is 1 cm lateral subluxation of the talus. There is also posterior subluxation of the talus. There is and Achilles calcaneal spur. Impression by Dr. Menchaca shows displaced bimalleolar fracture of the left ankle. Disposition Clinical Impression: Bimalleolar fracture of left ankle Disposition: ADMITTED IP TO THIS [facility] Condition: Serious Referrals: Venessa Marte MD [Primary Care Provider] - 1-2 days Decision to Admit Reason: Admit from EC Decision Date: 04/02/17 Decision Time: 22:42
[2017-04-02] MEDS ORDERED: NALOXONE 0.4 MG/ML 1 ML VIAL IV PRN (22:34)
[2017-04-02] MEDS ORDERED: LORazepam 2 MG/ML INJ IV PRN ×2 (22:36)
[2017-04-02] MEDS ORDERED: THIAMINE 100 MG/ML 2 ML VIAL IM STA (22:36)
[2017-04-02 22:57] LABS: Basophils # (A) 0.1 k/uL (0-0.2); Basophils % (A) 1 %; Eosinophils # (A) 0.1 k/uL (0-0.7); Eosinophils % (A) 1 %; HCT 53.4 % (34.0-46.0); HGB 17.5 gm/dL (11.4-16.0); Lymphocytes # (A) 2.4 k/uL (1.0-4.8); Lymphocytes % (A) 33 %; MCHC 32.8 g/dL (31.0-37.0); MCV 94.7 fL (80.0-100.0); Mean Platelet Volume 7.5; Monocytes # (A) 0.3 k/uL (0-1.0); Monocytes % (A) 4 %; Neutrophils # (A) 4.5 k/uL (1.3-7.7); Neutrophils % (A) 60 %; Platelet Count 149 k/uL (150-450); RBC 5.64 m/uL (3.80-5.40); RDW 14.2 % (11.5-15.5); WBC 7.5 k/uL (3.8-10.6)
[2017-04-02] MEDS ORDERED: KETOROLAC 30 MG/ML 1 ML VIAL IVP STA (22:57)
[2017-04-02 23:05] LABS: INR 1.1 (<1.2); Partial Thromboplastin Time 22.4 sec (22.0-30.0); Prothrombin Time 10.8 sec (9.0-12.0)
[2017-04-02 23:06] LABS: ALT 68 U/L (9-52); AST 52 U/L (14-36); Albumin 4.3 g/dL (3.5-5.0); Alkaline Phosphatase 124 U/L (38-126); Anion Gap 14 mmol/L; Blood Urea Nitrogen 12 mg/dL (7-17); Calcium 9.7 mg/dL (8.4-10.2); Carbon Dioxide 29 mmol/L (22-30); Chloride 98 mmol/L (98-107); Potassium 4.1 mmol/L (3.5-5.1); Sodium 141 mmol/L (137-145); Total Bilirubin 0.6 mg/dL (0.2-1.3); Total Protein 7.6 g/dL (6.3-8.2)
--- NOTE | 2017-04-02 23:13 | XR ---
EXAMINATION TYPE: XR chest 2V DATE OF EXAM: 04/02/2017 COMPARISON: 06/15/2016 HISTORY: Hypertension and diabetes chest pain TECHNIQUE: Frontal and lateral views of the chest are obtained. FINDINGS: Heart and mediastinum are normal. Lungs are clear of consolidation. There is no heart fail ure. There is no pleural effusion. Bony thorax is intact. IMPRESSION: No active cardiopulmonary disease. No change. 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
[2017-04-02] MEDS: 1: MVI, ADULT NO.4 WITH VIT K 10 ML, THIAMINE 100 MG, FOLIC ACID 1 MG in SODIUM CHLORIDE IV SCH ×4 (23:19)
[2017-04-02 23:21] LABS: Alcohol 201 mg/dL
[2017-04-02 23:22] LABS: Glucose 466 mg/dL (74-99)
[2017-04-02 23:42] LABS: Glucose,Whole Blood 421 mg/dL (75-99)
[2017-04-02] MEDS ORDERED: INSULIN ASPART 100 UNIT/ML 1 ML 10 ML VIAL SQ ONE (23:52)
[2017-04-02] MEDS ORDERED: SODIUM CHLORIDE 0.9% 500 ML IV ONE (23:53)
[2017-04-03 01:23] VITALS: BMI 28.3
[2017-04-03] MEDS: MORPHINE SULFATE 5 MG/ML SYRINGE IVP PRN ×5 (01:26→23:05)
[2017-04-03 07:40] LABS: Glucose,Whole Blood 231 mg/dL (75-99)
[2017-04-03] MEDS: INSULIN ASPART 100 UNIT/ML 1 ML 10 ML VIAL SQ SCH ×4 (07:53→23:05)
--- NOTE | 2017-04-03 09:21 | P.HPOR ---
History of Present Illness H&P Date: 04/03/17 Chief Complaint: Left Ankle fracture The patient is a 51-year-old female who presented to the emergency department yesterday, 04/02/2017, with right ankle pain. She states that she fell outside yesterday and had immediate right ankle pain. She states that she may have slipped on ice but cannot remember the mechanism of injury. The patient does have a history of substance abuse with alcohol and heroin. She states that she was scheduled to be admitted to [facility] on Wednesday next week for drug rehab. X-rays were taken in the emergency department and she was found to have a displaced bimalleolar fracture. She was admitted to orthopedics for further evaluation and care. She was placed in a splint in the ER last night. Today, the patient states that her ankle is very painful. The patient states that she fractured her right ankle in the past but did not require surgical intervention. The patient does see a nurse practitioner at [facility] for her medical care and psychiatric care. She denies fever, chills, rigors, shortness breath, chest pain, and abdominal pain at this time. Review of Systems Constitutional: Reports as per HPI, Denies chills, Denies fever, Denies lethargy Cardiovascular: Denies chest pain, Denies shortness of breath Respiratory: Denies cough, Denies dyspnea Gastrointestinal: Denies abdominal pain, Denies diarrhea, Denies nausea, Denies vomiting Genitourinary: Denies urinary frequency Musculoskeletal: Reports fractures Musculoskeletal: left: ankle pain, ankle swelling, as per HPI Psychiatric: Reports as per HPI Past Medical History Past Medical History: CVA/TIA, Diabetes Mellitus, Hyperlipidemia, Hypertension, Liver Disease Additional Past Medical History / Comment(s): "past alcoholism quit year ago when she started heroin" , "hepatitis c", stroke in 04/2015 with right sided weakness, hx fall-most recent 1.5 weeks ago, resp failure/opiate od History of Any Multi-Drug Resistant Organisms: None Reported Past Surgical History: Cholecystectomy, Tonsillectomy, Tubal Ligation Additional Past Surgical History / Comment(s): esophageal surgery Past Anesthesia/Blood Transfusion Reactions: Motion Sickness Past Psychological History: Bipolar, Depression, PTSD Additional Psychological History / Comment(s): pt stated actually i am homeless- i staying with my brother and his girlfriend Smoking Status: Current every day smoker Past Alcohol Use History: Abuse Additional Past Alcohol Use History / Comment(s): started smoking at age 10, smoking 1.5 -2 ppd. past alochol abuse stated quit a year ago but before that had been drinking a fifth of vodka daily for 5 years. Past Drug Use History: Heroin Additional Drug Use History / Comment(s): continues to use heroin-last time used was 08-09-16 - Past Family History Mother Additional Family Medical History / Comment(s): "chorea bill disease" Medications and Allergies Home Medications Medication Instructions Recorded Confirmed Type Venlafaxine HCl [Effexor XR] 300 mg PO QAM 03/31/16 04/02/17 History Lisinopril [Prinivil] 10 mg PO DAILY 06/16/16 04/02/17 History OLANZapine [ZyPREXA] 20 mg PO HS 06/16/16 04/02/17 History metFORMIN HCL [Glucophage] 500 mg PO TID 06/16/16 04/02/17 History Albuterol Inhaler [Ventolin Hfa 1 - 2 puff INHALATION Q4-6H PRN 04/02/17 History Inhaler] Allergies Allergy/AdvReac Type Severity Reaction Status Date / Time hydromorphone HCl Allergy Unknown Rash/Hives Verified 04/02/17 21:32 [From Dilaudid] Physical Examination The patient is a 51-year-old female who is in no acute distress. She is alert and oriented 3. The patient's head is normocephalic atraumatic. Exam of the bilateral upper extremities reveal no deformity or pain upon range of motion. Exam of the right lower extremity reveals no obvious deformity or pain on range of motion. Exam of the left lower extremity reveals a sugar tong splint to the left lower leg. After splint was removed there is swelling and ecchymosis to the left ankle. No open wounds or blister seen. Skin is intact. New well- padded OCL posterior splint was applied. Bilateral calves are soft and nontender. She is able to wiggle her toes on the left foot. Neurological and circulatory status is intact. Results - Labs Labs: Abnormal Lab Results - Last 24 Hours (Table) 04/02/17 04/02/17 04/02/17 Range/Units 22:41 22:41 23:38 RBC 5.64 H (3.80-5.40) m/uL Hgb 17.5 H (11.4-16.0) gm/dL Hct 53.4 H (34.0-46.0) % Plt Count 149 L (150-450) k/uL Glucose 466 H* (74-99) mg/dL POC Glucose (mg/dL) 421 H (75-99) mg/dL AST 52 H (14-36) U/L ALT 68 H (9-52) U/L 04/03/17 Range/Units 06:48 RBC (3.80-5.40) m/uL Hgb (11.4-16.0) gm/dL Hct (34.0-46.0) % Plt Count (150-450) k/uL Glucose (74-99) mg/dL POC Glucose (mg/dL) 231 H (75-99) mg/dL AST (14-36) U/L ALT (9-52) U/L H & H 04/02/17 Range/Units 22:41 Hgb 17.5 H (11.4-16.0) gm/dL Hct 53.4 H (34.0-46.0) % Coagulation 04/02/17 Range/Units 22:41 INR 1.1 (<1.2) Result Diagrams: 04/02/17 22:41 04/02/17 22:41 - Diagnostic results Ankle/Foot x-ray: image reviewed (Displaced bimalleolar fracture of the left ankle there is 1 cm lateral subluxation and posterior subluxation of the talus.) Assessment and Plan (1) Fall Current Visit: Yes Status: Acute Code(s): W19.XXXA - UNSPECIFIED FALL, INITIAL ENCOUNTER SNOMED Code(s): 6210200 (2) Bimalleolar fracture of left ankle Current Visit: Yes Status: Acute Code(s): S82.842A - DISPLACED BIMALLEOLAR FRACTURE OF LEFT LOWER LEG, INIT SNOMED Code(s): 750698866 Plan: The clinical and x-ray findings were discussed with the patient. The case was discussed with Dr. Matt. The patient was placed in a new well-padded posterior OCL splint. The patient's leg is to remain elevated with ice packs. The patient may eat a regular diet today. Patient will remain nonweightbearing to the left lower extremity. Physical therapy has been ordered to assist with ambulation. The patient will require surgical intervention in the future. Depending on swelling, the patient may need rehab placement before surgical intervention can take place. The patient is unable to go home alone at this time and will need skilled rehab.
[2017-04-03] MEDS: LISINOPRIL 10 MG TAB PO SCH (09:39)
[2017-04-03] MEDS: VENLAFAXINE HCL ER 150 MG CAP PO SCH (09:39)
[2017-04-03] MEDS: metFORMIN 500 MG TAB PO SCH ×3 (09:44→23:04)
[2017-04-03] MEDS ORDERED: HYDROcodone/APAP 5-325MG 1 EACH TAB PO PRN (10:10)
[2017-04-03 11:33] LABS: Glucose,Whole Blood 197 mg/dL (75-99)
[2017-04-03] MEDS: NICOTINE 21MG/24HR PATCH TRANSDERM SCH ×2 (12:16→12:17)
[2017-04-03] MEDS: THIAMINE 100 MG TAB PO SCH ×2 (12:17→17:08)
[2017-04-03] MEDS: 1: MVI, ADULT NO.4 WITH VIT K 10 ML, THIAMINE 100 MG, FOLIC ACID 1 MG in SODIUM CHLORIDE IV SCH ×4 (12:17)
[2017-04-03] MEDS: ALBUTEROL NEBULIZED 2.5 MG/3 ML INHALATION PRN (12:27)
[2017-04-03] MEDS: LORazepam 2 MG/ML INJ IV PRN (14:41)
[2017-04-03 14:44] LABS: Hemoglobin A1C 9.3 % (4.0-6.0)
[2017-04-03] MEDS: cloNIDine HCL 0.1 MG TAB PO SCH ×2 (16:26→23:05)
[2017-04-03 16:47] LABS: Glucose,Whole Blood 167 mg/dL (75-99)
[2017-04-03 20:52] LABS: Glucose,Whole Blood 204 mg/dL (75-99)
[2017-04-03] MEDS ORDERED: OLANZapine 10 MG TAB PO SCH (21:00)
--- NOTE | 2017-04-03 22:23 | CONS ---
CONSULTATION DATE OF SERVICE: 04/03/2017. REASON FOR CONSULTATION: Advice regarding EtOH and other medical issues requested by Dr. Matt. HISTORY OF PRESENT ILLNESS: This 51-year-old woman with a past medical history of multiple medical issues, including history of CVA, TIA, diabetes mellitus, hypertension, hyperlipidemia, history of liver disease, history of being followed by Dr. Marte in the outpatient setting, also seeing [facility]. The patient apparently was supposed to be admitted into [facility]; however, the patient was drinking heavily and subsequently the patient fell and suffered a bimalleolar fracture of the left ankle and the patient admitted for further evaluation and treatment. The patient has minimal DTs at this time. There is no history of fever, rigors. No history of headache, loss of consciousness, seizures. PAST MEDICAL HISTORY: History of CVA, TIA, diabetes mellitus, hypertension, hyperlipidemia, liver disease, ETOH. MEDICATIONS PRIOR TO ADMISSION: Include home medications are: 1. Albuterol 1-2 puffs q.4-6h p.r.n. 2. Effexor XR 300 mg daily. 3. Glucophage 500 mg daily. 4. Zyprexa 20 mg. 5. Prinivil 20 mg daily. ALLERGIES: DILAUDID. FAMILY HISTORY: History of Leelee chorea. SOCIAL HISTORY: History of heroin and history of history of smoking, alcohol. REVIEW OF SYSTEMS: ENT: No diminished hearing, diminished vision. CARDIOVASCULAR: No angina, palpitations. RESPIRATORY: No cough or hemoptysis. GI: No nausea, vomiting. : No dysuria. NERVOUS: No numbness or weakness. ALLERGY/IMMUNOLOGY: No asthma or hay fever. MUSCULOSKELETAL: As mentioned earlier. HEMATOLOGY/ONCOLOGY: No history of anemia. ENDOCRINE: Diabetes mellitus. CONSTITUTIONAL: As mentioned earlier. DERMATOLOGY: Negative. RHEUMATOLOGY: Negative. PSYCHIATRY: As mentioned earlier. PHYSICAL EXAMINATION: Alert and oriented x3. Pulse is 88, blood pressure 148/81, respirations 16, temperature 98.2, pulse ox of 93% on room air. HEENT: Conjunctivae normal. Oral mucosa moist. NECK: No jugular venous distention. No carotid bruits. No lymph node enlargement. CARDIOVASCULAR: S1, S2 muffled. RESPIRATORY: Breath sounds diminished in the bases. A few scattered rhonchi. No crackles. ABDOMEN: Soft, nontender. No mass palpable. LEGS: The left leg is in a cast and is status post left ankle fracture. NERVOUS SYSTEM: Higher functions as mentioned earlier. Moves all 4 limbs. No focal motor or sensory deficits. LYMPHATIC: No lymphadenopathy in neck or axillae. SKIN: No ulcer, rash or bleeding. LABS: WBC 7.1, hemoglobin ntd. Glucose of 466. AST is 52 and ALT 68. ASSESSMENT: 1. Acute alcohol intoxication as well as delirium tremens currently. 2. Diabetes mellitus, uncontrolled. 3. Possible noncompliance. 4. Increased AST ALT with possible alcoholic hepatitis. 5. Left ankle malleolar fracture. 6. Hypertension. 7. Hyperlipidemia. 8. History of chronic liver disease. 9. History of heroin and polysubstance abuse. 11.History of bipolar depression and posttraumatic stress disorder. 12.History of nicotine dependence. RECOMMENDATIONS AND DISCUSSION: In this 51-year-old woman who presented with multiple complex medical issues, will monitor the patient closely, continue the current medical management and symptomatic treatment. I would recommend CIWA protocol, supplement vitamins and monitor closely. Otherwise, repeat labs will be ordered. Observe for DT precautions and smoking cessation advised. Patient might be rehab evaluation consult also. I would also recommend evaluation by [facility] because the patient apparently currently is homeless and is in a long term. Once again, the prognosis guarded. See orders for further details. MMODL / IJN: [id number] / RASHMI
[2017-04-03] MEDS: HEPARIN SODIUM,PORCINE 5,000 UNIT/ML 1 ML VIAL SQ SCH (23:04)
[2017-04-03] MEDS ORDERED: OLANZapine 5 MG TAB PO SCH (23:25)
[2017-04-04 00:06] LABS: Amorphous Sediment,Urine Few /hpf; Appearance,Urine Turbid (Clear); Bilirubin,Urine Negative (Negative); Blood,Urine Negative (Negative); Color,Urine Yellow; Glucose,Urine (UA) 1+ (Negative); Ketones,Urine Negative (Negative); Leukocyte Esterase,Urine Negative (Negative); Mucus,Urine Many /hpf; Nitrite,Urine Negative (Negative); PH, Urine 5.5 (5.0-8.0); Protein,Urine Trace (Negative); RBC,Urine 145 /hpf (0-5); Squamous Epithelial Cell,Urine 4 /hpf (0-4); Urobilinogen,Urine <2.0 mg/dL (<2.0)
[2017-04-04] MEDS: LORazepam 2 MG/ML INJ IV PRN ×4 (03:55→19:59)
[2017-04-04 06:50] LABS: Basophils # (A) 0.1 k/uL (0-0.2); Basophils % (A) 1 %; Eosinophils # (A) 0.2 k/uL (0-0.7); Eosinophils % (A) 2 %; HCT 42.5 % (34.0-46.0); Lymphocytes # (A) 2.5 k/uL (1.0-4.8); Lymphocytes % (A) 32 %; MCH 31.9 pg (25.0-35.0); MCHC 33.8 g/dL (31.0-37.0); MCV 94.4 fL (80.0-100.0); Mean Platelet Volume 7.8; Monocytes # (A) 0.4 k/uL (0-1.0); Monocytes % (A) 5 %; Neutrophils # (A) 4.6 k/uL (1.3-7.7); Neutrophils % (A) 58 %; Platelet Count 106 k/uL (150-450); RDW 13.8 % (11.5-15.5); WBC 7.9 k/uL (3.8-10.6)
[2017-04-04 06:56] LABS: HGB 14.4 gm/dL (11.4-16.0)
[2017-04-04 07:15] LABS: ALT 62 U/L (9-52); AST 41 U/L (14-36); Albumin 3.3 g/dL (3.5-5.0); Alkaline Phosphatase 97 U/L (38-126); Anion Gap 7 mmol/L; Blood Urea Nitrogen 10 mg/dL (7-17); Calcium 8.7 mg/dL (8.4-10.2); Carbon Dioxide 27 mmol/L (22-30); Chloride 105 mmol/L (98-107); Glucose 199 mg/dL (74-99); Potassium 4.1 mmol/L (3.5-5.1); Sodium 139 mmol/L (137-145); Total Protein 6.1 g/dL (6.3-8.2)
[2017-04-04 07:20] LABS: Glucose,Whole Blood 217 mg/dL (75-99)
[2017-04-04] MEDS: metFORMIN 500 MG TAB PO SCH ×3 (07:41→23:03)
[2017-04-04] MEDS: HEPARIN SODIUM,PORCINE 5,000 UNIT/ML 1 ML VIAL SQ SCH ×2 (07:41→20:19)
[2017-04-04] MEDS: NICOTINE 21MG/24HR PATCH TRANSDERM SCH ×2 (07:41→14:08)
[2017-04-04] MEDS: VENLAFAXINE HCL ER 150 MG CAP PO SCH (07:42)
[2017-04-04] MEDS: LISINOPRIL 10 MG TAB PO SCH (07:42)
[2017-04-04] MEDS: INSULIN ASPART 100 UNIT/ML 1 ML 10 ML VIAL SQ SCH ×4 (07:42→22:51)
[2017-04-04] MEDS: cloNIDine HCL 0.1 MG TAB PO SCH ×2 (07:42→20:20)
--- NOTE | 2017-04-04 09:25 | P.PN ---
Subjective Progress Note Date: 04/04/17 Principal diagnosis: Left ankle bilmalleolar fracture The patient is a 51-year-old female who we are following for a left bimalleolar fracture. She was placed in a new splint yesterday. The patient is currently in DTs and receiving IV Ativan. The nursing staff states that they found the patient on her knees this morning after she was trying to get out of bed on her own. No new injuries are suspected. No new complaints. Objective - Vital Signs Vital signs: Vital Signs Temp 97.8 F 04/04/17 06:53 Pulse 95 04/04/17 06:53 Resp 16 04/04/17 06:53 BP 172/83 04/04/17 06:53 Pulse Ox 93 L 04/04/17 06:53 Intake & Output 04/03/17 04/04/17 04/04/17 18:59 06:59 18:59 Intake Total 1050 800 Output Total 700 Balance 1050 100 Intake: IV 300 Mvi, Adult No.4 with Vit 300 K 10 ml Thiamine 100 mg Folic Acid 1 mg In Sodium Chloride 0.9% 1,000 ml @ 100 mls/hr IV .BY DURATION BLAIRE Rx#: [id number] Intake, IV Titration 500 800 Amount Sodium Chloride 0.9% 1, 500 800 000 ml @ 100 mls/hr IV . BY DURATION BLAIRE Rx#: [id number] Oral 250 Output: Urine 700 Other: Voiding Method Bedside Commode # Voids 3 # Bowel Movements 1 - Exam The patient does not appear in acute distress. Alert and orientated x1. Splint is clean dry and intact. She is able to wiggle her toes freely. Sensation and circulatory status is intact. No new pain the bilateral knees and mild tenderness on palpation the bilateral lateral hips. - Labs CBC & Chem 7: 04/04/17 06:03 04/04/17 06:03 Labs: Abnormal Lab Results - Last 24 Hours (Table) 04/02/17 04/03/17 04/03/17 Range/Units 22:41 11:27 16:43 Plt Count (150-450) k/uL Glucose (74-99) mg/dL POC Glucose (mg/dL) 197 H 167 H (75-99) mg/dL Hemoglobin A1c 9.3 H (4.0-6.0) % AST (14-36) U/L ALT (9-52) U/L Total Protein (6.3-8.2) g/dL Albumin (3.5-5.0) g/dL Urine Appearance (Clear) Urine Protein (Negative) Urine Glucose (UA) (Negative) Urine RBC (0-5) /hpf Amorphous Sediment (None) /hpf Urine Mucus (None) /hpf 04/03/17 04/03/17 04/04/17 Range/Units 20:42 23:30 06:03 Plt Count 106 L (150-450) k/uL Glucose (74-99) mg/dL POC Glucose (mg/dL) 204 H (75-99) mg/dL Hemoglobin A1c (4.0-6.0) % AST (14-36) U/L ALT (9-52) U/L Total Protein (6.3-8.2) g/dL Albumin (3.5-5.0) g/dL Urine Appearance Turbid H (Clear) Urine Protein Trace H (Negative) Urine Glucose (UA) 1+ H (Negative) Urine RBC 145 H (0-5) /hpf Amorphous Sediment Few H (None) /hpf Urine Mucus Many H (None) /hpf 04/04/17 04/04/17 Range/Units 06:03 07:19 Plt Count (150-450) k/uL Glucose 199 H (74-99) mg/dL POC Glucose (mg/dL) 217 H (75-99) mg/dL Hemoglobin A1c (4.0-6.0) % AST 41 H (14-36) U/L ALT 62 H (9-52) U/L Total Protein 6.1 L (6.3-8.2) g/dL Albumin 3.3 L (3.5-5.0) g/dL Urine Appearance (Clear) Urine Protein (Negative) Urine Glucose (UA) (Negative) Urine RBC (0-5) /hpf Amorphous Sediment (None) /hpf Urine Mucus (None) /hpf Assessment and Plan (1) Fall Current Visit: Yes Status: Acute Code(s): W19.XXXA - UNSPECIFIED FALL, INITIAL ENCOUNTER SNOMED Code(s): 3828141 (2) Bimalleolar fracture of left ankle Current Visit: Yes Status: Acute Code(s): S82.842A - DISPLACED BIMALLEOLAR FRACTURE OF LEFT LOWER LEG, INIT SNOMED Code(s): 821842763 Plan: The clinical and x-ray findings were discussed with the patient. The case was discussed with Dr. Matt. Continue pain control and DT management. The patient' s leg is to remain elevated with ice packs. Patient will remain nonweightbearing to the left lower extremity. Physical therapy was ordered to assist with ambulation. The patient will require surgical intervention in the future, likely on Wednesday. Depending on swelling, the patient may need rehab placement before surgical intervention can take place. The patient is unable to go home alone at this time and will need skilled rehab.
[2017-04-04] MEDS: KETOROLAC 30 MG/ML 1 ML VIAL IVP PRN (11:21)
[2017-04-04 11:24] LABS: Glucose,Whole Blood 170 mg/dL (75-99)
[2017-04-04] MEDS: 1: MVI, ADULT NO.4 WITH VIT K 10 ML, THIAMINE 100 MG, FOLIC ACID 1 MG in SODIUM CHLORIDE IV SCH ×12 (12:45→15:13)
[2017-04-04] MEDS: MORPHINE SULFATE 5 MG/ML SYRINGE IVP PRN (13:43)
[2017-04-04] MEDS: THIAMINE 100 MG TAB PO SCH ×2 (14:59→17:22)
[2017-04-04 17:05] LABS: Glucose,Whole Blood 131 mg/dL (75-99)
[2017-04-04] MEDS ORDERED: cloNIDine HCL 0.1 MG TAB PO PRN (18:48)
[2017-04-04] MEDS: ALBUTEROL NEBULIZED 2.5 MG/3 ML INHALATION PRN (19:56)
[2017-04-04 20:27] LABS: Glucose,Whole Blood 166 mg/dL (75-99)
[2017-04-05 07:10] LABS: Glucose,Whole Blood 167 mg/dL (75-99)
[2017-04-05 07:29] LABS: ALT 51 U/L (9-52); AST 36 U/L (14-36); Albumin 3.1 g/dL (3.5-5.0); Alkaline Phosphatase 88 U/L (38-126); Anion Gap 10 mmol/L; Blood Urea Nitrogen 8 mg/dL (7-17); Calcium 8.7 mg/dL (8.4-10.2); Carbon Dioxide 25 mmol/L (22-30); Chloride 107 mmol/L (98-107); Glucose 173 mg/dL (74-99); Potassium 3.8 mmol/L (3.5-5.1); Sodium 142 mmol/L (137-145); Total Protein 5.9 g/dL (6.3-8.2)
[2017-04-05 08:00] LABS: Basophils % (A) 1 %; Eosinophils # (A) 0.1 k/uL (0-0.7); Eosinophils % (A) 2 %; HCT 41.9 % (34.0-46.0); HGB 14.2 gm/dL (11.4-16.0); Lymphocytes # (A) 1.8 k/uL (1.0-4.8); Lymphocytes % (A) 32 %; MCH 31.3 pg (25.0-35.0); MCHC 33.8 g/dL (31.0-37.0); MCV 92.7 fL (80.0-100.0); Mean Platelet Volume 7.2; Monocytes # (A) 0.3 k/uL (0-1.0); Monocytes % (A) 5 %; Neutrophils # (A) 3.3 k/uL (1.3-7.7); Neutrophils % (A) 59 %; Platelet Count 101 k/uL (150-450); RBC 4.52 m/uL (3.80-5.40); WBC 5.7 k/uL (3.8-10.6)
--- NOTE | 2017-04-05 08:25 | PN ---
PROGRESS NOTE DATE OF SERVICE: 04/04/2017 This is a 51-year-old woman who was admitted with acute alcoholic intoxication, also had left ankle fracture. The patient is being closely monitored. No chest pain. No palpitations. Orthopedic Surgery is following the patient closely. The patient is going through delirium tremens. Patient is on CIWA protocol. The patient is on Ativan. The patient is alert at this time. Surgery is being planned by Orthopedic Surgery. Significant swelling was noted. No chest pain, no palpitation. PHYSICAL EXAM: Patient is arousable, oriented x2. Pulse 84, blood pressure 159/90, respiration 16, temperature 97.8, pulse ox 94% on room air. HEENT: Conjunctivae normal. Oral mucosa moist. Neck is no jugular venous distention. No lymph node enlargement. CARDIOVASCULAR SYSTEM; S1, S2, muffled. RESPIRATORY: Breath sounds diminished at the bases, a few scattered rhonchi. No crackles. ABDOMEN: Soft, nontender. LEGS: Status post fracture. NERVOUS SYSTEM: Higher functions as mentioned earlier. Moves all 4 limbs. No focal motor deficits. LYMPHATICS: No lymph node enlargement in neck or axillae. SKIN: No ulcer, rash or bleeding. LABS: CBC within normal limits. Otherwise, AST, ALT noted. Accu-Cheks are noted. ASSESSMENT: 1. Acute alcohol intoxication as well as delirium tremens, currently. 2. Diabetes mellitus type 2, uncontrolled. 3. Left ankle bimalleolar fracture and fall. 4. History of noncompliance, possibly. 5. Increased AST, ALT, possibly alcoholic hepatitis. 6. Diabetes mellitus type 2, uncontrolled. 7. Hypertension. 8. Hyperlipidemia. 9. History of chronic liver disease. 10.History of heroin and polysubstance abuse in the remote past. 11.History of bipolar depression, posttraumatic stress disorder. 12.History of nicotine dependence. RECOMMENDATION: Recommend to continue with the current management and symptomatic treatment. Otherwise, closely follow with Surgery. Continue with the DT precautions and Ativan. Otherwise, tentative plan is surgery on Wednesday with possible rehab in between to reduce swelling. Will continue to monitor. Prognosis guarded. Further recommendations to follow. MMODL / IJN: [id number] /
--- NOTE | 2017-04-05 09:03 | XR ---
Left ankle HISTORY: Fracture 2 views of the left ankle Patient's fractures and subluxation at the tibiotalar joint are again noted and somewhat obscured by overlying splint. Comminution of the medial malleolar fracture is suspected. impression: Findings are essentially stable.
[2017-04-05] MEDS: 1: MVI, ADULT NO.4 WITH VIT K 10 ML, THIAMINE 100 MG, FOLIC ACID 1 MG in SODIUM CHLORIDE IV SCH ×12 (10:34→21:51)
[2017-04-05] MEDS: HEPARIN SODIUM,PORCINE 5,000 UNIT/ML 1 ML VIAL SQ SCH ×2 (10:34→20:07)
[2017-04-05] MEDS: VENLAFAXINE HCL ER 150 MG CAP PO SCH (10:35)
[2017-04-05] MEDS: metFORMIN 500 MG TAB PO SCH ×3 (10:35→22:04)
[2017-04-05] MEDS: LISINOPRIL 10 MG TAB PO SCH (10:36)
[2017-04-05] MEDS: cloNIDine HCL 0.1 MG TAB PO SCH ×2 (10:36→20:08)
[2017-04-05] MEDS: INSULIN ASPART 100 UNIT/ML 1 ML 10 ML VIAL SQ SCH ×4 (10:58→20:08)
[2017-04-05] MEDS: KETOROLAC 30 MG/ML 1 ML VIAL IVP PRN ×2 (10:59→20:15)
[2017-04-05] MEDS: HYDROcodone/APAP 5-325MG 1 EACH TAB PO PRN ×2 (11:05→18:23)
[2017-04-05 11:40] LABS: Glucose,Whole Blood 216 mg/dL (75-99)
[2017-04-05] MEDS ORDERED: LIDOCAINE 1% INJ 10MG/ML (20 ML MDV) ONE (13:00)
--- NOTE | 2017-04-05 13:25 | P.PN ---
Subjective Progress Note Date: 04/05/17 Principal diagnosis: Bimalleolar fracture dislocation left ankle. Delirium tremens. This is a 51-year-old female who we are following regarding her bimalleolar fracture dislocation of the left ankle. Follow-up x-rays were taken today which show persistent dislocation of the ankle joint. The patient resides at [facility]. It is recommended that she remain in the hospital versus inpatient rehab prior to surgery. Dr. Lopez is recommending inpatient stay. Objective - Vital Signs Vital signs: Vital Signs Temp 97.5 F L 04/05/17 07:00 Pulse 89 04/05/17 07:00 Resp 16 04/05/17 07:00 BP 193/102 04/05/17 07:00 Pulse Ox 93 L 04/05/17 07:00 Intake & Output 04/04/17 04/05/17 04/05/17 18:59 06:59 18:59 Intake Total 120 240 Output Total 1650 Balance 120 -1650 240 Weight 77.111 kg Intake: Oral 120 240 Output: Urine 1050 Stool 600 Other: Voiding Method Bedpan Incontinent # Voids 3 1 # Bowel Movements 2 - Exam This is a 51-year-old female in no acute distress. She is quite sedated day but is arousable. She has difficulty staying awake during the exam. Exam of the left lower extremity reveals that her splint is intact. Her splint is removed today and reduction is performed a bedside. The patient does have a fracture blister about the medial malleolus. Skin is otherwise intact. Pedal pulses +2/4. She has very long, thick toenails. - Labs CBC & Chem 7: 04/05/17 06:42 04/05/17 06:42 Labs: Abnormal Lab Results - Last 24 Hours (Table) 04/04/17 04/04/17 04/05/17 Range/Units 16:46 20:07 06:42 Plt Count 101 L (150-450) k/uL Creatinine (0.52-1.04) mg/dL Glucose (74-99) mg/dL POC Glucose (mg/dL) 131 H 166 H (75-99) mg/dL Total Protein (6.3-8.2) g/dL Albumin (3.5-5.0) g/dL 04/05/17 04/05/17 04/05/17 Range/Units 06:42 06:58 11:35 Plt Count (150-450) k/uL Creatinine 0.51 L (0.52-1.04) mg/dL Glucose 173 H (74-99) mg/dL POC Glucose (mg/dL) 167 H 216 H (75-99) mg/dL Total Protein 5.9 L (6.3-8.2) g/dL Albumin 3.1 L (3.5-5.0) g/dL Microbiology - Last 24 Hours (Table) 04/03/17 23:30 Urine Culture - Final Urine,Clean Catch Assessment and Plan (1) Bimalleolar fracture of left ankle Current Visit: Yes Status: Acute Code(s): S82.842A - DISPLACED BIMALLEOLAR FRACTURE OF LEFT LOWER LEG, INIT SNOMED Code(s): 439412506 (2) Fall Current Visit: Yes Status: Acute Code(s): W19.XXXA - UNSPECIFIED FALL, INITIAL ENCOUNTER SNOMED Code(s): 2538705 Plan: The clinical and x-ray findings are discussed with the patient. As stated above , and other attempt of reduction was performed today. 10 mL of 1% lidocaine was used for hematoma block in the joint. I was able to get her foot and ankle in a more anatomic position. She is placed in a short leg splint. The patient tolerated the reduction well. I have consulted Dr. Castro for evaluation and trimming of her toenails prior to her surgical procedure on Wednesday. Time with Patient: Greater than 30 (Closed reduction performed.)
[2017-04-05] MEDS: THIAMINE 100 MG TAB PO SCH ×2 (13:46→18:21)
[2017-04-05] MEDS: NICOTINE 21MG/24HR PATCH TRANSDERM SCH (13:55)
[2017-04-05 17:27] LABS: Glucose,Whole Blood 118 mg/dL (75-99)
[2017-04-05] MEDS: OLANZapine 10 MG TAB PO SCH (20:08)
[2017-04-05 20:19] LABS: Glucose,Whole Blood 160 mg/dL (75-99)
[2017-04-06] MEDS: HYDROcodone/APAP 5-325MG 1 EACH TAB PO PRN ×2 (03:16→19:25)
[2017-04-06 07:04] LABS: Glucose,Whole Blood 151 mg/dL (75-99)
[2017-04-06] MEDS: HEPARIN SODIUM,PORCINE 5,000 UNIT/ML 1 ML VIAL SQ SCH ×2 (07:51→20:13)
[2017-04-06] MEDS: THIAMINE 100 MG TAB PO SCH ×2 (07:52→15:28)
[2017-04-06] MEDS: cloNIDine HCL 0.1 MG TAB PO SCH ×2 (07:52→20:13)
[2017-04-06] MEDS: metFORMIN 500 MG TAB PO SCH ×3 (07:53→20:13)
[2017-04-06] MEDS: NICOTINE 21MG/24HR PATCH TRANSDERM SCH (07:53)
[2017-04-06] MEDS: VENLAFAXINE HCL ER 150 MG CAP PO SCH (07:53)
[2017-04-06] MEDS: LISINOPRIL 10 MG TAB PO SCH (07:53)
[2017-04-06] MEDS: INSULIN ASPART 100 UNIT/ML 1 ML 10 ML VIAL SQ SCH ×4 (07:56→20:13)
--- NOTE | 2017-04-06 08:10 | P.PN ---
Subjective Principal diagnosis: Bimalleolar fracture dislocation left ankle. Delirium tremens. This is a 51-year-old female who we are following regarding her bimalleolar fracture dislocation of the left ankle. She is placed in a new short leg splint yesterday. The patient resides at [facility]. It is recommended by internal medicine that she remain in the hospital prior to surgery. Dr. Lopez is recommending inpatient stay. The patient has no new complaints or concerns today. States that her pain is slightly improved today. Objective - Vital Signs Vital signs: Vital Signs Temp 97.9 F 04/06/17 07:50 Pulse 72 04/06/17 07:50 Resp 16 04/06/17 07:50 BP 162/87 04/06/17 07:50 Pulse Ox 96 04/06/17 07:50 Intake & Output 04/05/17 04/06/17 04/06/17 18:59 06:59 18:59 Intake Total 990 1900 Output Total 600 3 Balance 390 1897 Weight 77.111 kg Intake: IV 750 1600 Mvi, Adult No.4 with Vit 750 1600 K 10 ml Thiamine 100 mg Folic Acid 1 mg In Sodium Chloride 0.9% 1,000 ml @ 100 mls/hr IV .BY DURATION [facility] Rx#: [id number] Oral 240 Other 300 Output: Urine 3 Stool 600 Other: Voiding Method Incontinent Incontinent # Voids 1 - Exam This is a 51-year-old female in no acute distress. She is more alert today. Exam of the left lower extremity reveals that her splint is intact. Pedal pulses +2/4. She has very long, thick toenails. - Labs CBC & Chem 7: 04/05/17 06:42 04/05/17 06:42 Labs: Abnormal Lab Results - Last 24 Hours (Table) 04/05/17 04/05/17 04/05/17 Range/Units 06:42 11:35 17:20 Plt Count 101 L (150-450) k/uL POC Glucose (mg/dL) 216 H 118 H (75-99) mg/dL 04/05/17 04/06/17 Range/Units 20:04 07:01 Plt Count (150-450) k/uL POC Glucose (mg/dL) 160 H 151 H (75-99) mg/dL Microbiology - Last 24 Hours (Table) 04/03/17 23:30 Urine Culture - Final Urine,Clean Catch Assessment and Plan (1) Bimalleolar fracture of left ankle Current Visit: Yes Status: Acute Code(s): S82.842A - DISPLACED BIMALLEOLAR FRACTURE OF LEFT LOWER LEG, INIT SNOMED Code(s): 425126208 (2) Fall Current Visit: Yes Status: Acute Code(s): W19.XXXA - UNSPECIFIED FALL, INITIAL ENCOUNTER SNOMED Code(s): 7851695 Plan: The clinical and x-ray findings are discussed with the patient. We're planning open reduction internal fixation of the left ankle on Wednesday. I have consulted Dr. Castro for evaluation and trimming of her toenails prior to her surgical procedure on Wednesday.
[2017-04-06 08:12] LABS: Basophils % (A) 1 %; Eosinophils # (A) 0.1 k/uL (0-0.7); Eosinophils % (A) 2 %; HCT 39.4 % (34.0-46.0); HGB 13.4 gm/dL (11.4-16.0); Lymphocytes # (A) 1.7 k/uL (1.0-4.8); Lymphocytes % (A) 33 %; MCH 31.4 pg (25.0-35.0); MCHC 33.9 g/dL (31.0-37.0); MCV 92.8 fL (80.0-100.0); Mean Platelet Volume 7.4; Monocytes # (A) 0.2 k/uL (0-1.0); Monocytes % (A) 5 %; Neutrophils % (A) 59 %; Platelet Count 120 k/uL (150-450); RBC 4.25 m/uL (3.80-5.40); WBC 5.1 k/uL (3.8-10.6)
[2017-04-06] MEDS: MORPHINE SULFATE 5 MG/ML SYRINGE IVP PRN ×4 (08:14→21:07)
[2017-04-06 08:19] LABS: ALT 41 U/L (9-52); AST 34 U/L (14-36); Albumin 2.9 g/dL (3.5-5.0); Alkaline Phosphatase 73 U/L (38-126); Anion Gap 8 mmol/L; Blood Urea Nitrogen 9 mg/dL (7-17); Calcium 8.5 mg/dL (8.4-10.2); Carbon Dioxide 26 mmol/L (22-30); Chloride 108 mmol/L (98-107); Glucose 144 mg/dL (74-99); Sodium 142 mmol/L (137-145); Total Bilirubin 0.7 mg/dL (0.2-1.3); Total Protein 5.6 g/dL (6.3-8.2)
[2017-04-06] MEDS: 1: MVI, ADULT NO.4 WITH VIT K 10 ML, THIAMINE 100 MG, FOLIC ACID 1 MG in SODIUM CHLORIDE IV SCH ×12 (09:12→17:02)
--- NOTE | 2017-04-06 11:05 | PN ---
PROGRESS NOTE DATE OF SERVICE: 04/05/2017 This 51-year-old woman was admitted with ankle fracture also had alcohol intoxication and currently undergoing going thru severe DT. No chest pain. No palpitations. No fever. The patient is sedated with Ativan. EXAM: Pulse 66, blood pressure 150/70, respirations 16, temperature 97.4, pulse ox 94% on room air. HEENT: Conjunctivae normal. Neck: No jugular venous distention. Cardiovascular: S1, S2. RESPIRATORY SYSTEM: Breath sounds diminished at the bases. A few scattered rhonchi and crackles. ABDOMEN: Soft, nontender. Legs status post left ankle surgery. Nervous system: No focal deficits. LABS: Glucose 173, 167. ASSESSMENT: 1. Acute alcohol intoxication as well as acute delirium tremens. 2. Diabetes type 2 uncontrolled. 3. Left ankle bimalleolar fracture and fall. 4. History of noncompliance possibly. 5. Increased AST, ALT, possibly alcoholic hepatitis. 6. Hypertension. 7. Hyperlipidemia. 8. History of chronic liver disease. 9. History of heroin and polysubstance abuse in the remote past. 10.History of bipolar depression, posttraumatic stress disorder. 11.History of nicotine dependence. RECOMMENDATIONS AND DISCUSSION: Recommend to continue current medications, continue with monitoring and symptomatic treatment. Otherwise, at this time, I recommend continue with DT precautions. Ativan. Guarded prognosis because of multiple complex medical issues. Further recommendations to follow. MMODL / MEDHATN: [id number] /
[2017-04-06 11:26] LABS: Glucose,Whole Blood 180 mg/dL (75-99)
[2017-04-06] MEDS ORDERED: IPRATROPIUM-ALBUTEROL 3 ML NEB INHALATION PRN (11:54)
[2017-04-06] MEDS: IPRATROPIUM-ALBUTEROL 3 ML NEB INHALATION SCH ×3 (12:17→20:42)
--- NOTE | 2017-04-06 15:23 | PN ---
PROGRESS NOTE DATE OF SERVICE: 04/06/2017 This is a 51-year-old woman who was admitted with acute alcohol intoxication, also had delirium tremens. The patient also has left ankle fracture. Orthopedics is planning surgery on Wednesday. No chest pain. No palpitations. No fever. Some wheezing was noted in the lungs. PHYSICAL EXAM: Alert and oriented x3. Pulse is 72, blood pressure 162/87, respiration 16, temperature 97.9, pulse ox 98% on room air. HEENT: Conjunctivae are normal. NECK: No jugular venous distension. RESPIRATORY: Breath sound diminished at the bases, a few scattered rhonchi, no crackles. Expiratory wheezing also present. ABDOMEN: Soft, nontender. No mass palpable. LEGS: Left leg fracture in cast. NERVOUS SYSTEM: No focal deficits. LABS: Platelets 120, otherwise glucose 144, albumin is 2.9. ASSESSMENT: 1. Acute alcohol intoxication as well as acute delirium tremens. 2. Acute left ankle bimalleolar fracture and fall present on admission. 3. Diabetes type 2 uncontrolled. 4. History of noncompliance, possibly. 5. Increased AST, ALT, with possible alcoholic hepatitis and possible chronic bronchitis and chronic obstructive pulmonary disease. 6. Hypertension. 7. Hyperlipidemia. 8. History of chronic liver disease. 9. History of heroin and polysubstance abuse in the remote past. 10.History of bipolar depression, posttraumatic stress disorder. 11.History of nicotine dependence. RECOMMENDATION: Recommend to continue with the current medications and symptomatic treatment. At this time, will monitor the patient closely. Otherwise, continue with Ativan protocol, CIWA protocol and surgery per Orthopedic Surgery probably on Wednesday. Further recommendations to follow. Add bronchodilators to regimen. condition for recommendation recommendations to follow. MMODL / IJN: [id number] /
[2017-04-06 17:03] LABS: Glucose,Whole Blood 122 mg/dL (75-99)
[2017-04-06 20:01] LABS: Glucose,Whole Blood 173 mg/dL (75-99)
[2017-04-06] MEDS: OLANZapine 10 MG TAB PO SCH (20:13)
[2017-04-07] MEDS: 1: MVI, ADULT NO.4 WITH VIT K 10 ML, THIAMINE 100 MG, FOLIC ACID 1 MG in SODIUM CHLORIDE IV SCH ×12 (03:25→21:58)
[2017-04-07] MEDS: MORPHINE SULFATE 5 MG/ML SYRINGE IVP PRN ×3 (05:49→21:57)
[2017-04-07 06:59] LABS: Glucose,Whole Blood 134 mg/dL (75-99)
--- NOTE | 2017-04-07 07:58 | P.PN ---
Subjective Progress Note Date: 04/07/17 Principal diagnosis: Bimalleolar fracture dislocation left ankle. Delirium tremens. This is a 51-year-old female who we are following regarding her bimalleolar fracture dislocation of the left ankle. She is placed in a new short leg splint. The patient resides at [facility]. It is recommended by internal medicine that she remain in the hospital prior to surgery. Dr. Lopez is recommending inpatient stay. The patient has no new complaints or concerns today. States that her pain is slightly improved today. Objective - Vital Signs Vital signs: Vital Signs Temp 97.6 F 04/07/17 00:25 Pulse 66 04/07/17 00:25 Resp 16 04/07/17 00:25 BP 134/72 04/07/17 00:25 Pulse Ox 92 L 04/07/17 00:25 Intake & Output 04/06/17 04/07/17 04/07/17 18:59 06:59 18:59 Intake Total 440 Balance 440 Intake: Oral 440 Other: Voiding Method Bedside Commode Bedside Commode Incontinent Incontinent # Voids 1 1 - Exam This is a 51-year-old female in no acute distress. She is more alert today. Exam of the left lower extremity reveals that her splint is intact. Pedal pulses +2/4. She has very long, thick toenails. - Labs CBC & Chem 7: 04/06/17 07:19 04/06/17 07:19 Labs: Abnormal Lab Results - Last 24 Hours (Table) 04/06/17 04/06/17 04/06/17 Range/Units 07:19 07:19 11:24 Plt Count 120 L (150-450) k/uL Chloride 108 H (98-107) mmol/L Glucose 144 H (74-99) mg/dL POC Glucose (mg/dL) 180 H (75-99) mg/dL Total Protein 5.6 L (6.3-8.2) g/dL Albumin 2.9 L (3.5-5.0) g/dL 04/06/17 04/06/17 04/07/17 Range/Units 17:00 19:57 06:57 Plt Count (150-450) k/uL Chloride (98-107) mmol/L Glucose (74-99) mg/dL POC Glucose (mg/dL) 122 H 173 H 134 H (75-99) mg/dL Total Protein (6.3-8.2) g/dL Albumin (3.5-5.0) g/dL Assessment and Plan (1) Bimalleolar fracture of left ankle Current Visit: Yes Status: Acute Code(s): S82.842A - DISPLACED BIMALLEOLAR FRACTURE OF LEFT LOWER LEG, INIT SNOMED Code(s): 492726552 (2) Fall Current Visit: Yes Status: Acute Code(s): W19.XXXA - UNSPECIFIED FALL, INITIAL ENCOUNTER SNOMED Code(s): 9280640 Plan: The clinical and x-ray findings are discussed with the patient. We're planning open reduction internal fixation of the left ankle on Wednesday. I have consulted Dr. Castro for evaluation and trimming of her toenails prior to her surgical procedure on Wednesday.
[2017-04-07 08:02] LABS: ALT 44 U/L (9-52); AST 36 U/L (14-36); Albumin 2.9 g/dL (3.5-5.0); Alkaline Phosphatase 81 U/L (38-126); Anion Gap 8 mmol/L; Blood Urea Nitrogen 7 mg/dL (7-17); Calcium 8.8 mg/dL (8.4-10.2); Carbon Dioxide 28 mmol/L (22-30); Chloride 107 mmol/L (98-107); Glucose 130 mg/dL (74-99); Potassium 4.3 mmol/L (3.5-5.1); Sodium 143 mmol/L (137-145); Total Bilirubin 0.7 mg/dL (0.2-1.3); Total Protein 5.7 g/dL (6.3-8.2)
[2017-04-07] MEDS: HEPARIN SODIUM,PORCINE 5,000 UNIT/ML 1 ML VIAL SQ SCH ×2 (08:18→21:59)
[2017-04-07] MEDS: INSULIN ASPART 100 UNIT/ML 1 ML 10 ML VIAL SQ SCH ×4 (08:18→22:02)
[2017-04-07] MEDS: NICOTINE 21MG/24HR PATCH TRANSDERM SCH (08:18)
[2017-04-07] MEDS: VENLAFAXINE HCL ER 150 MG CAP PO SCH (08:18)
[2017-04-07] MEDS: cloNIDine HCL 0.1 MG TAB PO SCH ×2 (08:19→21:58)
[2017-04-07] MEDS: metFORMIN 500 MG TAB PO SCH ×3 (08:19→21:58)
[2017-04-07] MEDS: LISINOPRIL 10 MG TAB PO SCH (08:19)
[2017-04-07 08:23] LABS: Basophils % (A) 1 %; Eosinophils # (A) 0.1 k/uL (0-0.7); Eosinophils % (A) 2 %; HCT 37.8 % (34.0-46.0); Lymphocytes % (A) 38 %; MCH 31.8 pg (25.0-35.0); MCHC 34.3 g/dL (31.0-37.0); MCV 92.7 fL (80.0-100.0); Mean Platelet Volume 8.2; Monocytes # (A) 0.3 k/uL (0-1.0); Monocytes % (A) 6 %; Neutrophils # (A) 2.7 k/uL (1.3-7.7); Neutrophils % (A) 52 %; Platelet Count 118 k/uL (150-450); RBC 4.08 m/uL (3.80-5.40); RDW 13.8 % (11.5-15.5); WBC 5.2 k/uL (3.8-10.6)
[2017-04-07] MEDS: HYDROcodone/APAP 5-325MG 1 EACH TAB PO PRN ×3 (08:25→20:00)
[2017-04-07] MEDS: IPRATROPIUM-ALBUTEROL 3 ML NEB INHALATION SCH ×4 (08:32→20:49)
[2017-04-07 11:36] LABS: Glucose,Whole Blood 228 mg/dL (75-99)
[2017-04-07] MEDS: THIAMINE 100 MG TAB PO SCH ×2 (13:06→21:58)
--- NOTE | 2017-04-07 15:47 | P.CON ---
Consult Note - . Consult date: 04/07/17 Assessment/Plan:: This consultation was performed per the request of Dr. Matt for elongated thick deformed dystrophic nails. Complaint: Left ankle fracture This patient is a 51-year-old female who presented to the emergency room yesterday 04/02/2017 with right ankle pain that she stated that she fell outside the day before and had immediate right ankle pain. She stated that she may have slipped on the ice not remember the mechanism of injury. The patient does have a history of stents abuse alcohol and heroin. She states that she was scheduled to be admitted to [place] on Wednesday for drug rehab. X-rays were taken in the emergency room department and she was found to have a displaced bimalleolar fracture. She was admitted to orthopedics for further evaluation and care. She was placed in a splint in the emergency room last evening. Today the patient states that her ankle is very painful. The patient states that she fractured her right ankle in the past but it did not require surgical intervention. does see a nurse practitioner at [facility] for her medical care and psychiatric care. Past medical history is significant for CVA/TIA, diabetes mellitus hyperlipidemia hypertension and liver cc. The patient stated that the past history of alcohol problems but quit a year ago when she started using heroin. Positive for hepatitis C [place] April 2015 Extremity physical examination revealed essentially normal color moisture temperature and texture and skin 1-year-old female the patient's nails spell were quite thick deformed very neglected and elongated(been trimmed and over 2 years consistent with onychomycosis were seen to be present one through 5 bilaterally Signs were negative Capillary refill is less than 3 seconds to all digits of both feet pulses of her right foot with regard to the dorsalis pedis and the posterior tibial arteries. The patient's left lower extremity is in a regular your splint and this was not removed during the examination motion of the patient's right foot with regard to ankle subtalar midtarsal and metatarsophalangeal joints were free mentioned unrestricted. Chest: 1. Right ankle fracture 2. 3 of CVA/TIAs 3. Diabetes mellitus 4. Hyperlipidemia 5. Hypertension 6. Liver disease 7. Alohol and heroin abuse 8. Onychomycosis This data reduce the patient's nails 1 through 5 of both feet burring was performed and antiseptic was applied, I did not hemorrhage the patient.
[2017-04-07 17:01] LABS: Glucose,Whole Blood 150 mg/dL (75-99)
--- NOTE | 2017-04-07 17:16 | P.PN ---
Subjective Patient was admitted for alcohol intoxication fall and is being treated for delirium tremens patient had an ankle fracture which is swollen patient will undergo surgical correction on Wednesday. Patient is complaining of pain in the left ankle area. Constitutional: Denied any fatigue denied any fever. Cardio vascular: denied any chest pain, palpitations Gastrointestinal denied any nausea vomiting Pulmonary: Denied any shortness of breath cough Neurologic denied any new focal deficits Objective - Vital Signs Vital signs: Vital Signs Temp 98.0 F 04/07/17 14:48 Pulse 68 04/07/17 17:06 Resp 16 04/07/17 14:48 BP 118/74 04/07/17 14:48 Pulse Ox 95 04/07/17 14:48 Intake & Output 04/06/17 04/07/17 04/07/17 18:59 06:59 18:59 Intake Total 440 800 Balance 440 800 Intake: IV 800 Mvi, Adult No.4 with Vit 800 K 10 ml Thiamine 100 mg Folic Acid 1 mg In Sodium Chloride 0.9% 1,000 ml @ 100 mls/hr IV .BY DURATION [facility] Rx#: [id number] Oral 440 Other: Voiding Method Bedside Commode Bedside Commode Bedside Commode Incontinent Incontinent Incontinent # Voids 1 1 - Exam PHYSICAL EXAMINATION: GENERAL: The patient is alert and oriented x3, not in any acute distress. Well developed, well nourished. HEENT: Pupils are round and equally reacting to light. EOMI. No scleral icterus. No conjunctival pallor. Normocephalic, atraumatic. No pharyngeal erythema. No thyromegaly. CARDIOVASCULAR: S1 and S2 present. No murmurs, rubs, or gallops. PULMONARY: Chest is clear to auscultation, no wheezing or crackles. ABDOMEN: Soft, nontender, nondistended, normoactive bowel sounds. No palpable organomegaly. MUSCULOSKELETAL: No joint swelling or deformity. EXTREMITIES: No cyanosis, clubbing, or pedal edema. NEUROLOGICAL: Gross neurological examination did not reveal any focal deficits. SKIN: No rashes. - Labs CBC & Chem 7: 04/07/17 06:30 04/07/17 06:30 Labs: Abnormal Lab Results - Last 24 Hours (Table) 04/06/17 04/07/17 04/07/17 Range/Units 19:57 06:30 06:30 Plt Count 118 L (150-450) k/uL Glucose 130 H (74-99) mg/dL POC Glucose (mg/dL) 173 H (75-99) mg/dL Total Protein 5.7 L (6.3-8.2) g/dL Albumin 2.9 L (3.5-5.0) g/dL 04/07/17 04/07/17 04/07/17 Range/Units 06:57 11:23 16:51 Plt Count (150-450) k/uL Glucose (74-99) mg/dL POC Glucose (mg/dL) 134 H 228 H 150 H (75-99) mg/dL Total Protein (6.3-8.2) g/dL Albumin (3.5-5.0) g/dL Assessment and Plan Plan: -Acute left ankle bimalleolar fracture: Pain management and DVT prophylaxis as per orthopedic surgery -Alcohol withdrawal: Patient is on Ativan 0 protocol thiamine multivitamin supplementation Hypertension well controlled with clonidine patient is on clonidine because of alcohol withdrawal related hypertension and tachycardia -Hyperlipidemia -Bipolar and depression -Nicotine dependence -History of IV drug use in the past will obtain hepatitis panel
[2017-04-07 20:40] LABS: Glucose,Whole Blood 143 mg/dL (75-99)
[2017-04-07] MEDS: OLANZapine 10 MG TAB PO SCH (21:58)
[2017-04-08] MEDS: HYDROcodone/APAP 5-325MG 1 EACH TAB PO PRN ×4 (02:13→22:21)
[2017-04-08 02:35] LABS: Hepatitis A Antibody IgM Non-Reactive (Non-Reactive); Hepatitis B Core IgM Reactive (Non-Reactive)
[2017-04-08] MEDS: MORPHINE SULFATE 5 MG/ML SYRINGE IVP PRN ×3 (03:43→12:24)
[2017-04-08 07:29] LABS: Glucose,Whole Blood 132 mg/dL (75-99)
[2017-04-08 07:33] LABS: Basophils % (A) 1 %; Eosinophils # (A) 0.1 k/uL (0-0.7); Eosinophils % (A) 1 %; HCT 36.7 % (34.0-46.0); HGB 12.4 gm/dL (11.4-16.0); Lymphocytes # (A) 1.6 k/uL (1.0-4.8); Lymphocytes % (A) 32 %; MCH 31.4 pg (25.0-35.0); MCHC 33.7 g/dL (31.0-37.0); Mean Platelet Volume 7.6; Monocytes # (A) 0.3 k/uL (0-1.0); Monocytes % (A) 6 %; Neutrophils # (A) 2.9 k/uL (1.3-7.7); Neutrophils % (A) 58 %; Platelet Count 120 k/uL (150-450); RBC 3.95 m/uL (3.80-5.40); RDW 13.5 % (11.5-15.5)
[2017-04-08 07:58] LABS: ALT 41 U/L (9-52); AST 27 U/L (14-36); Alkaline Phosphatase 88 U/L (38-126); Anion Gap 8 mmol/L; Blood Urea Nitrogen 6 mg/dL (7-17); Carbon Dioxide 27 mmol/L (22-30); Chloride 106 mmol/L (98-107); Glucose 130 mg/dL (74-99); Potassium 3.7 mmol/L (3.5-5.1); Sodium 141 mmol/L (137-145); Total Bilirubin 0.7 mg/dL (0.2-1.3); Total Protein 5.7 g/dL (6.3-8.2)
[2017-04-08] MEDS: NICOTINE 21MG/24HR PATCH TRANSDERM SCH (08:09)
[2017-04-08] MEDS: LISINOPRIL 10 MG TAB PO SCH (08:09)
[2017-04-08] MEDS: HEPARIN SODIUM,PORCINE 5,000 UNIT/ML 1 ML VIAL SQ SCH ×2 (08:09→19:54)
[2017-04-08] MEDS: cloNIDine HCL 0.1 MG TAB PO SCH ×2 (08:09→19:54)
[2017-04-08] MEDS: metFORMIN 500 MG TAB PO SCH ×3 (08:09→19:55)
[2017-04-08] MEDS: VENLAFAXINE HCL ER 150 MG CAP PO SCH (08:10)
[2017-04-08] MEDS: THIAMINE 100 MG TAB PO SCH ×2 (08:10→17:20)
[2017-04-08] MEDS: INSULIN ASPART 100 UNIT/ML 1 ML 10 ML VIAL SQ SCH ×4 (08:15→19:55)
[2017-04-08] MEDS: 1: MVI, ADULT NO.4 WITH VIT K 10 ML, THIAMINE 100 MG, FOLIC ACID 1 MG in SODIUM CHLORIDE IV SCH ×8 (08:18→09:03)
[2017-04-08] MEDS: IPRATROPIUM-ALBUTEROL 3 ML NEB INHALATION SCH ×4 (08:23→19:21)
--- NOTE | 2017-04-08 08:25 | P.PN ---
Subjective Progress Note Date: 04/08/17 Principal diagnosis: Bimalleolar fracture dislocation left ankle. Delirium tremens. This is a 51-year-old female who we are following regarding her bimalleolar fracture dislocation of the left ankle. She is placed in a new short leg splint. The patient resides at [facility]. It is recommended by internal medicine that she remain in the hospital prior to surgery. Dr. Lopez is recommending inpatient stay. The patient has no new complaints or concerns today. States that her pain is slightly improved today. She is scheduled for open reduction internal fixation of the left ankle tomorrow. Objective - Vital Signs Vital signs: Vital Signs Temp 98.1 F 04/08/17 06:13 Pulse 68 04/08/17 06:13 Resp 16 04/08/17 06:13 BP 145/77 04/08/17 06:13 Pulse Ox 93 L 04/08/17 06:13 Intake & Output 04/07/17 04/08/17 04/08/17 18:59 06:59 18:59 Intake Total 800 800 Balance 800 800 Intake: IV 800 800 Mvi, Adult No.4 with Vit 800 800 K 10 ml Thiamine 100 mg Folic Acid 1 mg In Sodium Chloride 0.9% 1,000 ml @ 100 mls/hr IV .BY DURATION [facility] Rx#: [id number] Other: Voiding Method Bedside Commode Bedside Commode Incontinent # Voids 1 - Exam This is a 51-year-old female in no acute distress. She is more alert today. Exam of the left lower extremity reveals that her splint is intact. Pedal pulses +2/4. She has very long, thick toenails. - Labs CBC & Chem 7: 04/08/17 06:52 04/08/17 06:52 Labs: Abnormal Lab Results - Last 24 Hours (Table) 04/07/17 04/07/17 04/07/17 Range/Units 06:30 06:30 11:23 Plt Count 118 L (150-450) k/uL BUN (7-17) mg/dL Creatinine (0.52-1.04) mg/dL Glucose (74-99) mg/dL POC Glucose (mg/dL) 228 H (75-99) mg/dL Total Protein (6.3-8.2) g/dL Albumin (3.5-5.0) g/dL Hep B Core IgM Ab Reactive H (Non-Reactive) Hep C IgG Ab Reactive H (Non-Reactive) 04/07/17 04/07/17 04/08/17 Range/Units 16:51 20:29 06:52 Plt Count 120 L (150-450) k/uL BUN (7-17) mg/dL Creatinine (0.52-1.04) mg/dL Glucose (74-99) mg/dL POC Glucose (mg/dL) 150 H 143 H (75-99) mg/dL Total Protein (6.3-8.2) g/dL Albumin (3.5-5.0) g/dL Hep B Core IgM Ab (Non-Reactive) Hep C IgG Ab (Non-Reactive) 04/08/17 04/08/17 Range/Units 06:52 07:23 Plt Count (150-450) k/uL BUN 6 L (7-17) mg/dL Creatinine 0.51 L (0.52-1.04) mg/dL Glucose 130 H (74-99) mg/dL POC Glucose (mg/dL) 132 H (75-99) mg/dL Total Protein 5.7 L (6.3-8.2) g/dL Albumin 3.0 L (3.5-5.0) g/dL Hep B Core IgM Ab (Non-Reactive) Hep C IgG Ab (Non-Reactive) Assessment and Plan (1) Bimalleolar fracture of left ankle Current Visit: Yes Status: Acute Code(s): S82.842A - DISPLACED BIMALLEOLAR FRACTURE OF LEFT LOWER LEG, INIT SNOMED Code(s): 051301290 (2) Fall Current Visit: Yes Status: Acute Code(s): W19.XXXA - UNSPECIFIED FALL, INITIAL ENCOUNTER SNOMED Code(s): 4026803 Plan: The clinical and x-ray findings are discussed with the patient. We're planning open reduction internal fixation of the left ankle on Wednesday. I'm planning inpatient rehab postoperatively.
[2017-04-08 11:59] LABS: Glucose,Whole Blood 174 mg/dL (75-99)
--- NOTE | 2017-04-08 11:59 | CT ---
EXAMINATION TYPE: CT ankle LT wo con DATE OF EXAM: 04/08/2017 COMPARISON: NONE HISTORY: Lt ankle fx CT DLP: 258.[address] of the left ankle with reconstruction imaging. TECHNIQUE: Unenhanced CT of the left ankle was performed with bone and soft tissue window settings greco bmitted in the axial coronal and sagittal planes. At a separate workstation 3-D TR imaging was obtai camacho. FINDINGS: Moderately displaced distal fibular fracture with comminution is noted. Displacement is estimated at 4.9 mm. Mildly comminuted medial malleolar fracture is also identified with displacement of at least 6 mm. There is also a posterior malleolar fracture with a displaced fracture component noted of appro ximately 3.9 mm. There is a disruption of the ankle mortise with the distal tibia displaced medially by approximately 9 mm. There is extensive surrounding soft tissue edema. No additional fractures are identified with absolute certainty at this time. IMPRESSION: 1. Trimalleolar fracture with disruption of the ankle mortise as discussed above.
[2017-04-08 16:55] LABS: Glucose,Whole Blood 146 mg/dL (75-99)
[2017-04-08 19:24] LABS: Glucose,Whole Blood 185 mg/dL (75-99)
[2017-04-08] MEDS: OLANZapine 10 MG TAB PO SCH (19:55)
[2017-04-08] MEDS: MORPHINE SULFATE 2 MG/ML SYRINGE IVP PRN (22:24)
[2017-04-09] MEDS: MORPHINE SULFATE 2 MG/ML SYRINGE IVP PRN ×3 (03:50→12:07)
[2017-04-09] MEDS: 1: MVI, ADULT NO.4 WITH VIT K 10 ML, THIAMINE 100 MG, FOLIC ACID 1 MG in SODIUM CHLORIDE IV SCH ×8 (05:41→18:14)
[2017-04-09 07:22] LABS: Glucose,Whole Blood 166 mg/dL (75-99)
[2017-04-09] MEDS: IPRATROPIUM-ALBUTEROL 3 ML NEB INHALATION SCH ×4 (07:59→20:01)
[2017-04-09] MEDS: LISINOPRIL 10 MG TAB PO SCH (08:13)
[2017-04-09] MEDS: VENLAFAXINE HCL ER 150 MG CAP PO SCH (08:13)
[2017-04-09] MEDS: metFORMIN 500 MG TAB PO SCH ×3 (08:13→19:59)
[2017-04-09] MEDS: cloNIDine HCL 0.1 MG TAB PO SCH ×2 (08:13→19:58)
[2017-04-09] MEDS: NICOTINE 21MG/24HR PATCH TRANSDERM SCH (08:28)
[2017-04-09] MEDS: HEPARIN SODIUM,PORCINE 5,000 UNIT/ML 1 ML VIAL SQ SCH ×2 (08:28→19:58)
[2017-04-09] MEDS: INSULIN ASPART 100 UNIT/ML 1 ML 10 ML VIAL SQ SCH ×4 (08:28→20:43)
[2017-04-09 11:12] LABS: Glucose,Whole Blood 146 mg/dL (75-99)
--- NOTE | 2017-04-09 11:48 | P.CONS ---
History of Present Illness - Reason for Consult Consult date: 04/09/17 Hepatitis B hepatitis C Requesting physician: Joel Lopez - History of Present Illness 51-year-old female with a history of alcohol abuse intravenous heroin abuse known chronic hepatitis C without treatment admitted status post fall with a bimalleolar fracture of the left ankle. Patient is scheduled for OR today. Consultation requested for reactive hepatitis C antibody as well as hepatitis B surface antigen. Last usage of heroin was September 2016. She actively drinks alcohol fifth of liquor vodka daily. Hemoglobin 12.4. MCV 93. Platelet 120. White count 5.0. INR 1.1. Total bilirubin 0.7. AST 36. ALT 44. Alkaline phosphatase 81. Hepatitis A IgM antibody nonreactive. Hepatitis B surface antigen reactive. Hepatitis B core IgM antibody reactive. Hepatitis C IgG antibody reactive. Review of previous medical records hepatitis C viral RNA detected September 2015 1, [phone]. Hepatitis B screen negative September 2015. Review of Systems Constitutional: Denies fever, chills, sweats, weight gain, or loss. HEENT: Negative for migraines, blurred vision or loss, earaches, drainage, tinnitus, oral mucosal lesions, dysphagia, or odynophagia. CARDIAC: Hyperlipidemia. Hypertension. Negative for chest pain, arrhythmias, or palpitation. RESPIRATORY: Negative for shortness of breath, hemoptysis, cough, or sputum production. GI: See HPI for pertinent findings. : Negative for hematuria, urgency, frequency, polyuria, or dysuria. GYNc: Denies possibility of . Negative vaginal discharge. MUSCULOSKELETAL: Negative for muscle aches, swelling, arthritis, and arthralgias. NEUROLOGIC: TIA.. ENDOCRINE: Negative for thyroid problems. SKIN: Negative for rash or itching. PSYCHIATRIC: Bipolar depression. PTSD. Past Medical History Past Medical History: CVA/TIA, Diabetes Mellitus, Hyperlipidemia, Hypertension, Liver Disease Additional Past Medical History / Comment(s): "past alcoholism quit year ago when she started heroin" , "hepatitis c", stroke in 04/2015 with right sided weakness, hx fall-most recent 1.5 weeks ago, resp failure/opiate od History of Any Multi-Drug Resistant Organisms: None Reported Past Surgical History: Cholecystectomy, Tonsillectomy, Tubal Ligation Additional Past Surgical History / Comment(s): esophageal surgery Past Anesthesia/Blood Transfusion Reactions: Motion Sickness Past Psychological History: Bipolar, Depression, PTSD Additional Psychological History / Comment(s): pt stated actually i am homeless- i staying with my brother and his girlfriend Smoking Status: Current every day smoker Past Alcohol Use History: Abuse Additional Past Alcohol Use History / Comment(s): started smoking at age 10, smoking 1.5 -2 ppd. past alochol abuse stated quit a year ago but before that had been drinking a fifth of vodka daily for 5 years. Past Drug Use History: Heroin Additional Drug Use History / Comment(s): continues to use heroin-last time used was 08-09-16 - Past Family History Mother Additional Family Medical History / Comment(s): "chorea bill disease" Medications and Allergies Home Medications Medication Instructions Recorded Confirmed Type Venlafaxine HCl [Effexor XR] 300 mg PO QAM 03/31/16 04/02/17 History Lisinopril [Prinivil] 10 mg PO DAILY 06/16/16 04/02/17 History OLANZapine [ZyPREXA] 20 mg PO HS 06/16/16 04/02/17 History metFORMIN HCL [Glucophage] 500 mg PO TID 06/16/16 04/02/17 History Albuterol Inhaler [Ventolin Hfa 1 - 2 puff INHALATION Q4-6H PRN 04/02/17 History Inhaler] Allergies Allergy/AdvReac Type Severity Reaction Status Date / Time hydromorphone HCl Allergy Unknown Rash/Hives Verified 04/02/17 21:32 [From Dilaudid] Physical Exam Vitals: Vital Signs Temp Pulse Pulse Resp BP Pulse Ox 04/09/17 08:10 90 04/09/17 08:00 88 04/09/17 07:00 98.3 F 71 17 157/82 93 L 04/09/17 01:21 98.6 F 77 17 152/76 92 L 04/08/17 20:00 97.9 F 87 18 180/83 92 L 04/08/17 19:33 85 04/08/17 19:21 84 04/08/17 16:03 79 04/08/17 15:53 76 04/08/17 15:00 98.0 F 69 16 142/72 93 L 04/08/17 12:06 80 04/08/17 11:58 79 Intake and Output 04/08/17 04/09/17 04/09/17 22:59 06:59 14:59 Intake Total 450 800 Balance 450 800 Intake: IV 100 800 Mvi, Adult No.4 with Vit 100 K 10 ml Thiamine 100 mg Folic Acid 1 mg In Sodium Chloride 0.9% 1,000 ml @ 100 mls/hr IV .BY DURATION BLAIRE Rx#: [id number] Sodium Chloride 0.9% 1, 800 000 ml @ 100 mls/hr IV . BY DURATION BLAIRE Rx#: [id number] Oral 350 Other: Voiding Method Bedside Commode # Voids 2 3 General appearance: The patient is alert, oriented, in no acute distress. HET: Head is normocephalic and atraumatic. Pupils are equal and reactive. Oropharynx is clear without lesions. Neck: Supple without lymphadenopathy. Trachea midline. Heart: S1 S2. Regular rate and rhythm. Lungs: No crackles or wheezes are heard. Abdomen: Soft, nontender, nondistended with bowel sounds. No peritoneal signs. No palpable organomegaly or masses. Extremities: Left foot casting. Neurological: No focal deficits. Strength and sensation are grossly intact. Results CBC & Chem 7: 04/08/17 06:52 04/08/17 06:52 Labs: Abnormal Lab Results - Last 24 Hours (Table) 04/07/17 04/08/17 04/08/17 Range/Units 06:30 11:54 16:43 POC Glucose (mg/dL) 174 H 146 H (75-99) mg/dL Hep Bs Antigen Reactive H (Non-Reactive) 04/08/17 04/09/17 04/09/17 Range/Units 19:19 07:01 11:00 POC Glucose (mg/dL) 185 H 166 H 146 H (75-99) mg/dL Hep Bs Antigen (Non-Reactive) Assessment and Plan (1) Chronic hepatitis C Narrative/Plan: Possible alcohol liver disease possible cirrhosis Current Visit: Yes Status: Acute Code(s): B18.2 - CHRONIC VIRAL HEPATITIS C SNOMED Code(s): 785690516 (2) Chronic viral hepatitis B Current Visit: Yes Status: Acute Code(s): B18.1 - CHRONIC VIRAL HEPATITIS B WITHOUT DELTA-AGENT SNOMED Code(s): 76636865 (3) ETOH abuse Current Visit: Yes Status: Acute Code(s): F10.10 - ALCOHOL ABUSE, UNCOMPLICATED SNOMED Code(s): 16253009 (4) Homeless Current Visit: Yes Status: Acute Code(s): Z59.0 - HOMELESSNESS SNOMED Code (s): 37637100 (5) Ankle fracture, left Current Visit: Yes Status: Acute Code(s): S82.892A - OTH FRACTURE OF LEFT LOWER LEG, INIT FOR CLOS FX SNOMED Code(s): 47459437 (6) Heroin abuse Current Visit: Yes Status: Chronic Code(s): F11.10 - OPIOID ABUSE, UNCOMPLICATED SNOMED Code(s): 0592290 Plan: 1. Ultrasound abdomen. 2. Will obtain additional serology for hepatitis B/C evaluation. AFP marker. 3. Alcohol heroin abstinence advised. 4. Follow-up in the outpatient setting for reevaluation and discussion of outpatient treatment. Thank you for this kind referral and the opportunity to participate in the care of your patient. This consultation was discussed with Dr. Goff. The impression and plan of care have been directed as dictated.
[2017-04-09] MEDS ORDERED: IV FLUID CONTINUATION 1,000 ML IV ONE (13:34)
[2017-04-09 13:52] LABS: Glucose,Whole Blood 206 mg/dL (75-99)
[2017-04-09] MEDS ORDERED: BUPIVACAINE (PF) 0.5% 30 ML VIAL SQ ONE (14:40)
[2017-04-09] MEDS ORDERED: ceFAZolin 1,000 MG/50 ML BAG (PMX) IVPB ONE (14:51)
[2017-04-09] MEDS ORDERED: PROPOFOL 10 MG/ML 20 ML VIAL IV ONE (14:51)
[2017-04-09] MEDS ORDERED: MIDAZOLAM 2 MG/2 ML VIAL ONE (14:51)
[2017-04-09] MEDS ORDERED: LACTATED RINGERS 1,000 ML IV ONE (15:29)
[2017-04-09] MEDS ORDERED: ceFAZolin 1,000 MG in SODIUM CHLORIDE 0.9% 1,000 ML IRRIGATION ONE (15:30)
--- NOTE | 2017-04-09 16:53 | P.OP ---
Date of Procedure: 04/09/17 Procedure(s) Performed: PREOPERATIVE DIAGNOSES: 1. Left ankle trimalleolar fracture subluxation POSTOPERATIVE DIAGNOSES: Left ankle trimalleolar fracture subluxation PROCEDURES PERFORMED: 1. Left ankle lateral malleolus fracture open reduction and internal fixation. 2. Left ankle medial malleolus fracture open reduction and internal fixation 3. Closed treatment of posterior malleolus fracture (15% of the joint based on CT imaging) ANESTHESIA: [employer]: Ilene Garrison PA-C (assistance with exposure, hemostasis, retraction, fixation, closure, dressing, splint) COMPLICATIONS: None ESTIMATED BLOOD LOSS: Less than 10 mL. TOURNIQUET: approximately 70 minutes DISPOSITION: To post-anesthesia care unit INDICATIONS: The patient is a 51-year-old homeless female with substance abuse problems and hep C, who presents to the operating room today for fixation of ankle fracture. The fracture is a trimalleolar fracture, with a fracture of the lateral malleolus that is high enough to produce talar instability and a posterior malleolus fragment which is approximately 15% of the joint on axial CT images. I have recommended operative fixation of this fracture. I have discussed these issues with the patient, who wishes to proceed with the operative plan. I have explained the details of this surgery thoroughly and also explained the potential risks and complications. These are inclusive of, but not limited to: bleeding, infection, scarring, discomfort, blood vessel and nerve damage, arthritis, stiffness, weakness, hardware failure, need for further surgery, blood clot, pulmonary embolism, , failure to relieve symptoms, persistence or worsening of problems, , and other risks. The patient is aware of these risks and agrees to proceed with surgery. The consent form has been signed. PROCEDURE: After appropriate consent was obtained, the patient was taken to the operating room and placed supine on the operating table. General anesthesia was initiated. The ankle was removed from the splint and examined for any signs of significant fracture blisters or swelling that would prevent continuation of the surgery. One small fracture blister was noted on the anteromedial aspect of the ankle but appeared to be anterior to the planned incision for the medial malleolus fracture fixation. Skin appeared healthy and intact, swellling was moderate but not excessive. The limb was prepped and draped in the usual aseptic fashion with ChloraPrep, and the patient was given IV antibiotics. The tourniquet was then inflated to 350 mmHg after careful exsanguination of the limb. Time out was called, confirming patient identity, side, procedure, and administration of antibiotics. Incision was created laterally, centered over the fracture site, for a length of approximately 4 inches. The incision was carried down through skin and into subcutaneous tissues, and blunt dissection then proceeded down to fascia. Fascia was split in line with the incision and the peroneal muscles were retracted posteriorly. The fracture site was exposed with subperiosteal dissection for as much exposure of the bone as was necessary. Fracture hematoma was evacuated and the interior of the fracture site was meticulously cleansed with irrigation and manual extraction of organizing hematoma and bone debris. The fracture was minimally comminuted and oblique in orientation. The fracture was mobilized using a dumont elevator and reduction was accomplished using a bone clamp, which was also used to secure the fracture. Anatomic reduction was accomplished. An interfragmentary screw, anterior to posterior, was placed using lag technique. Next, a precontoured fibular plate from [employer] was selected for size and side. The proximal holes were filled with fully threaded 3.5 mm cortical screws. One locking screw was placed in the most proximal hole. Distal holes were filled with 4 2.7 mm locking screws. No evidence of joint penetration on the mini-C-arm views was noted. Next, the medial malleolus was evaluated and treated. Fracture was somewhat comminuted but there was a fairly large fragment inferiorly that was a good candidate for screw fixation. An incision was created for approximately 2.5 inches on the medial aspect of the ankle, and carried down through skin sharply and then bluntly using a dissecting scissor down to fascia and periosteum. The fracture fragment was able to be mobilized and secured with a [id number] reduction forceps. Subsequently, a guidepin was placed across the fracture site and several adjustments were made of this guidepin so that the position was perfect on C-arm imaging. The outer cortex was reamed, and appropriately sized 4.0 cannulated cancellus screw(s) with long threads were inserted over the guidepin until they were fully deployed. Final C-arm images were then taken , showing anatomic alignment of the mortise and medial malleolar fracture site. The fracture was noted to be in anatomic position and stress testing under C- arm imaging showed no significant migration, shift, or tilt of the talus with external rotation stress, hindfoot inversion or eversion. Therefore the posterior malleolus fragment, which amounted to approximately 15% of the joint , was treated closed. Screw lengths were noted to be appropriate and the incision was then irrigated thoroughly using normal saline. Tourniquet was deflated and hemostasis was obtained using electrocautery. Fascial closure was performed with 0-Vicryl suture, subcutaneous closure with 2-0 Vicryl suture. Skin was closed with 4-0 Monocryl and cyanoacrylate on the lateral side, and 4- 0 nylon horizontal mattress sutures on the medial side.. Sterile dressing was applied and well padded, well molded short leg splint was applied with the ankle in neutral. Patient tolerated the procedure well and taken to recovery room in stable condition. Sponge and needle counts were correct.
[2017-04-09] MEDS ORDERED: ONDANSETRON 4 MG/2 ML VIAL IVP PRN (17:02)
[2017-04-09] MEDS ORDERED: TEMAZEPAM 15 MG CAP PO PRN (17:02)
[2017-04-09] MEDS ORDERED: MORPHINE SULFATE 2 MG/ML SYRINGE IV PRN ×3 (17:02)
[2017-04-09] MEDS ORDERED: SENNOSIDES-DOCUSATE SODIUM 1 EACH TAB PO PRN (17:02)
[2017-04-09] MEDS ORDERED: diphenhydrAMINE 25 MG CAP PO PRN (17:02)
--- NOTE | 2017-04-09 17:11 | XR ---
Limited left ankle HISTORY: Open reduction internal fixation 2 intraoperative C-arm images document the procedure
--- NOTE | 2017-04-09 17:14 | FL ---
Fluoroscopy HISTORY: Open reduction internal fixation 11 seconds fluoroscopy time supplied to the referring clinician. 2 intraoperative C-arm images docum ent the procedure. See dictated report from orthopedic surgery.
[2017-04-09 17:22] LABS: Glucose,Whole Blood 139 mg/dL (75-99)
--- NOTE | 2017-04-09 18:07 | P.PN ---
Subjective Progress Note Date: 04/08/17 Progress note being dictated for Dr. Rashid Interval history:Patient was admitted for alcohol intoxication fall and is being treated for delirium tremens patient had an ankle fracture which is swollen patient will undergo surgical correction on Wednesday. Patient is complaining of pain in the left ankle area. Constitutional: Denied any fatigue denied any fever. Cardio vascular: denied any chest pain, palpitations Gastrointestinal denied any nausea vomiting Pulmonary: Denied any shortness of breath cough Neurologic denied any new focal deficits 04/08/2017. More alert today. Maintained on CIWA protocol, DTs much improved. Lower leg splint maintained. Pain improving. Scheduled for OR tomorrow. Hepatitis B surface antigen reactive, hepatitis B core IgM antibody reactive, hepatitis C IgG antibody reactive. Objective - Vital Signs Vital signs: Vital Signs Temp 98.0 F 04/08/17 15:00 Pulse 79 04/08/17 16:03 Resp 16 04/08/17 15:00 BP 142/72 04/08/17 15:00 Pulse Ox 93 L 04/08/17 15:00 Intake & Output 04/07/17 04/08/17 04/08/17 18:59 06:59 18:59 Intake Total 749 915 2554.2 Balance 485 032 3580.2 Intake: IV 800 800 Mvi, Adult No.4 with Vit 800 800 K 10 ml Thiamine 100 mg Folic Acid 1 mg In Sodium Chloride 0.9% 1,000 ml @ 100 mls/hr IV .BY DURATION BLAIRE Rx#: [id number] Intake, IV Titration 1011.2 Amount Mvi, Adult No.4 with Vit 1011.2 K 10 ml Thiamine 100 mg Folic Acid 1 mg In Sodium Chloride 0.9% 1,000 ml @ 100 mls/hr IV .BY DURATION BLAIRE Rx#: [id number] Other: Voiding Method Bedside Commode Bedside Commode Incontinent # Voids 1 3 - Exam GENERAL: The patient is alert and oriented x3, not in any acute distress. Well developed, well nourished. HEENT: Pupils are round and equally reacting to light. EOMI. No scleral icterus. No conjunctival pallor. Normocephalic, atraumatic. No pharyngeal erythema. No thyromegaly. CARDIOVASCULAR: S1 and S2 present. No murmurs, rubs, or gallops. PULMONARY: Chest is clear to auscultation, no wheezing or crackles. ABDOMEN: Soft, nontender, nondistended, normoactive bowel sounds. No palpable organomegaly. MUSCULOSKELETAL: No joint swelling or deformity. EXTREMITIES: No cyanosis, clubbing, or pedal edema. NEUROLOGICAL: Gross neurological examination did not reveal any focal deficits. SKIN: No rashes. - Labs CBC & Chem 7: 04/08/17 06:52 04/08/17 06:52 Labs: Abnormal Lab Results - Last 24 Hours (Table) 04/07/17 04/07/17 04/08/17 Range/Units 06:30 20:29 06:52 Plt Count 120 L (150-450) k/uL BUN (7-17) mg/dL Creatinine (0.52-1.04) mg/dL Glucose (74-99) mg/dL POC Glucose (mg/dL) 143 H (75-99) mg/dL Total Protein (6.3-8.2) g/dL Albumin (3.5-5.0) g/dL Hep Bs Antigen Reactive H (Non-Reactive) Hep B Core IgM Ab Reactive H (Non-Reactive) Hep C IgG Ab Reactive H (Non-Reactive) 04/08/17 04/08/17 04/08/17 Range/Units 06:52 07:23 11:54 Plt Count (150-450) k/uL BUN 6 L (7-17) mg/dL Creatinine 0.51 L (0.52-1.04) mg/dL Glucose 130 H (74-99) mg/dL POC Glucose (mg/dL) 132 H 174 H (75-99) mg/dL Total Protein 5.7 L (6.3-8.2) g/dL Albumin 3.0 L (3.5-5.0) g/dL Hep Bs Antigen (Non-Reactive) Hep B Core IgM Ab (Non-Reactive) Hep C IgG Ab (Non-Reactive) 04/08/17 Range/Units 16:43 Plt Count (150-450) k/uL BUN (7-17) mg/dL Creatinine (0.52-1.04) mg/dL Glucose (74-99) mg/dL POC Glucose (mg/dL) 146 H (75-99) mg/dL Total Protein (6.3-8.2) g/dL Albumin (3.5-5.0) g/dL Hep Bs Antigen (Non-Reactive) Hep B Core IgM Ab (Non-Reactive) Hep C IgG Ab (Non-Reactive) Assessment and Plan Assessment: -Acute left ankle bimalleolar fracture -Alcohol withdrawal -Hypertension well controlled with clonidine patient is on clonidine because of alcohol withdrawal related hypertension and tachycardia -Hyperlipidemia -Bipolar and depression -Nicotine dependence -History of IV drug use in the past, positive hepatitis panel; reactive B & C, further outpatient follow-up/treatment with GI Plan: Continue current medication regime ,monitoring. Pain management, DVT prophylaxis as per orthopedic surgery. Maintain CIWA protocol. GI consulted for reactive hepatitis B and C . Social work and case assisting with subacute rehab for discharge. The impression and plan of care has been dictated as directed. : I performed a history and examination of this patient, discussed the same with the dictator. I agree with the dictator's note ,documented as a scribe. Any additional findings or plans will be noted.
--- NOTE | 2017-04-09 18:09 | P.PN ---
Subjective Progress Note Date: 04/09/17 Progress note being dictated for Dr. Rashid Interval history:Patient was admitted for alcohol intoxication fall and is being treated for delirium tremens patient had an ankle fracture which is swollen patient will undergo surgical correction on Wednesday. Patient is complaining of pain in the left ankle area. Constitutional: Denied any fatigue denied any fever. Cardio vascular: denied any chest pain, palpitations Gastrointestinal denied any nausea vomiting Pulmonary: Denied any shortness of breath cough Neurologic denied any new focal deficits 04/08/2017. More alert today. Maintained on CIWA protocol, DTs much improved. Lower leg splint maintained. Pain improving. Scheduled for OR tomorrow. Hepatitis B surface antigen reactive, hepatitis B core IgM antibody reactive, hepatitis C IgG antibody reactive. 04/09/2017. Scheduled for surgery today. Currently no DTs, calm cooperative. Evaluated by GI with workup in progress regarding evaluation of hepatitis B/C. Objective - Vital Signs Vital signs: Vital Signs Temp 98.5 F 04/09/17 17:00 Pulse 87 04/09/17 17:33 Resp 16 04/09/17 17:33 BP 118/56 04/09/17 17:33 Pulse Ox 95 04/09/17 17:33 Intake & Output 04/08/17 04/09/17 04/09/17 18:59 06:59 18:59 Intake Total 1011.2 1250 601 Output Total 13 Balance 1011.2 1250 588 Intake: IV 900 601 Mvi, Adult No.4 with Vit 100 K 10 ml Thiamine 100 mg Folic Acid 1 mg In Sodium Chloride 0.9% 1,000 ml @ 100 mls/hr IV .BY DURATION BLAIRE Rx#: [id number] Sodium Chloride 0.9% 1, 800 000 ml @ 100 mls/hr IV . BY DURATION BLAIRE Rx#: [id number] Intake, IV Titration 1011.2 Amount Mvi, Adult No.4 with Vit 1011.2 K 10 ml Thiamine 100 mg Folic Acid 1 mg In Sodium Chloride 0.9% 1,000 ml @ 100 mls/hr IV .BY DURATION BLAIRE Rx#: [id number] Oral 350 Output: Urine 3 Estimated Blood Loss 10 Other: Voiding Method Bedside Commode # Voids 3 3 3 - Exam GENERAL: The patient is alert and oriented x3, not in any acute distress. Well developed, well nourished. HEENT: Pupils are round and equally reacting to light. EOMI. No scleral icterus. No conjunctival pallor. Normocephalic, atraumatic. No pharyngeal erythema. No thyromegaly. CARDIOVASCULAR: S1 and S2 present. No murmurs, rubs, or gallops. PULMONARY: Chest is clear to auscultation, no wheezing or crackles. ABDOMEN: Soft, nontender, nondistended, normoactive bowel sounds. No palpable organomegaly. MUSCULOSKELETAL: No joint swelling or deformity. EXTREMITIES: No cyanosis, clubbing, or pedal edema. NEUROLOGICAL: Gross neurological examination did not reveal any focal deficits. SKIN: No rashes. - Labs CBC & Chem 7: 04/08/17 06:52 04/08/17 06:52 Labs: Abnormal Lab Results - Last 24 Hours (Table) 04/08/17 04/09/17 04/09/17 Range/Units 19:19 07:01 11:00 POC Glucose (mg/dL) 185 H 166 H 146 H (75-99) mg/dL 04/09/17 04/09/17 Range/Units 13:48 17:16 POC Glucose (mg/dL) 206 H 139 H (75-99) mg/dL Assessment and Plan Assessment: -Acute left ankle bimalleolar fracture -Alcohol withdrawal -Hypertension well controlled with clonidine patient is on clonidine because of alcohol withdrawal related hypertension and tachycardia -Hyperlipidemia -Bipolar and depression -Nicotine dependence -History of IV drug use in the past, positive hepatitis panel; reactive B & C, further outpatient follow-up/treatment with GI Plan: Continue current medication regime ,monitoring. Pain management, DVT prophylaxis as per orthopedic surgery. Maintain CIWA protocol. Hepatitis workup as per GI in progress . Social work and case assisting with subacute rehab for discharge. The impression and plan of care has been dictated as directed. : I performed a history and examination of this patient, discussed the same with the dictator. I agree with the dictator's note ,documented as a scribe. Any additional findings or plans will be noted.
[2017-04-09] MEDS: THIAMINE 100 MG TAB PO SCH (18:12)
[2017-04-09] MEDS: HYDROcodone/APAP 5-325MG 1 EACH TAB PO PRN (19:01)
[2017-04-09] MEDS: hydrOXYzine PAMOATE 25 MG CAP PO PRN (19:01)
[2017-04-09] MEDS: MORPHINE SULFATE 2 MG/ML SYRINGE IV PRN ×2 (19:57→23:09)
[2017-04-09] MEDS: OLANZapine 10 MG TAB PO SCH (19:58)
[2017-04-09 20:05] LABS: Glucose,Whole Blood 164 mg/dL (75-99)
[2017-04-09] MEDS: ceFAZolin IN SWFI 2 GM/20 ML SYRINGE IVP SCH (23:09)
[2017-04-10] MEDS: hydrOXYzine PAMOATE 25 MG CAP PO PRN (00:12)
[2017-04-10] MEDS: HYDROcodone/APAP 5-325MG 1 EACH TAB PO PRN ×2 (00:12→06:37)
[2017-04-10] MEDS: LACTATED RINGERS 1,000 ML IV SCH ×3 (02:08→15:53)
[2017-04-10] MEDS: MORPHINE SULFATE 2 MG/ML SYRINGE IV PRN ×2 (03:20→07:12)
[2017-04-10] MEDS: 1: MVI, ADULT NO.4 WITH VIT K 10 ML, THIAMINE 100 MG, FOLIC ACID 1 MG in SODIUM CHLORIDE IV SCH ×8 (05:21→12:23)
[2017-04-10 06:34] LABS: Glucose,Whole Blood 172 mg/dL (75-99)
[2017-04-10] MEDS ORDERED: HYDROcodone/APAP 10-325MG 1 EACH TAB PO PRN (06:47)
[2017-04-10] MEDS: IPRATROPIUM-ALBUTEROL 3 ML NEB INHALATION SCH ×4 (07:06→21:04)
--- NOTE | 2017-04-10 07:50 | US ---
EXAMINATION TYPE: US abdomen limited DATE OF EXAM: 04/09/2017 COMPARISON: Previous study dated 10/22/2015. CLINICAL HISTORY: hepatitis B/C . EXAM MEASUREMENTS: Liver Length: 17.0 cm Gallbladder Wall: Surgically absent cm CBD: 0.7 cm Right Kidney: 9.4 x 4.2 x 4.9 cm Pancreas: Tail obscured by overlying bowel gas, visualized portions wnl Liver: Measuring upper limits of normal Gallbladder: Surgically absent Evidence for sonographic Murray's sign: No CBD: wnl Right Kidney: No hydronephrosis or masses seen Limited views of the pancreas are unremarkable. The liver is normal in size without biliary dilatation. The gallbladder is been removed. The distal common hepatic duct measures 7 mm. The right kidney is normal. IMPRESSION: STATUS POST CHOLECYSTECTOMY.
[2017-04-10] MEDS: INSULIN ASPART 100 UNIT/ML 1 ML 10 ML VIAL SQ SCH ×4 (07:54→21:23)
[2017-04-10 08:18] LABS: ALT 35 U/L (9-52); AST 28 U/L (14-36); Albumin 3.3 g/dL (3.5-5.0); Alkaline Phosphatase 90 U/L (38-126); Anion Gap 8 mmol/L; Blood Urea Nitrogen 6 mg/dL (7-17); Calcium 9.3 mg/dL (8.4-10.2); Carbon Dioxide 32 mmol/L (22-30); Chloride 101 mmol/L (98-107); Glucose 166 mg/dL (74-99); Potassium 4.3 mmol/L (3.5-5.1); Sodium 141 mmol/L (137-145); Total Bilirubin 0.7 mg/dL (0.2-1.3); Total Protein 6.4 g/dL (6.3-8.2)
[2017-04-10] MEDS: ceFAZolin IN SWFI 2 GM/20 ML SYRINGE IVP SCH (08:47)
[2017-04-10] MEDS: NICOTINE 21MG/24HR PATCH TRANSDERM SCH (08:47)
[2017-04-10] MEDS: HEPARIN SODIUM,PORCINE 5,000 UNIT/ML 1 ML VIAL SQ SCH ×2 (08:47→21:22)
[2017-04-10] MEDS: cloNIDine HCL 0.1 MG TAB PO SCH (08:47)
[2017-04-10] MEDS: metFORMIN 500 MG TAB PO SCH ×3 (08:48→21:23)
[2017-04-10] MEDS: VENLAFAXINE HCL ER 150 MG CAP PO SCH (08:48)
[2017-04-10] MEDS: LISINOPRIL 10 MG TAB PO SCH (09:36)
--- NOTE | 2017-04-10 09:40 | P.PN ---
Subjective Progress Note Date: 04/10/17 This is a 51-year-old female who is being followed by orthopedics for bimalleolar fracture dislocation of the left ankle. Patient is status post ORIF of the left ankle on 04/09/2017. This is postoperative day #1. Patient does complain of pain today. Patient is tolerating the splint well. Patient denies any new symptoms today. Objective - Vital Signs Vital signs: Vital Signs Temp 98.5 F 04/10/17 08:00 Pulse 92 04/10/17 08:00 Resp 17 04/10/17 08:00 BP 150/72 04/10/17 08:00 Pulse Ox 94 L 04/10/17 08:00 Intake & Output 04/09/17 04/10/17 04/10/17 18:59 06:59 18:59 Intake Total 601 Output Total 13 Balance 588 Intake: IV 601 Output: Urine 3 Estimated Blood Loss 10 Other: Voiding Method Bedside Commode Bedside Commode # Voids 3 1 # Bowel Movements 1 - Exam Vital signs are stable. Patient is in no acute distress and is alert and oriented 3. Splint is clean, dry, and intact. Patient is able to wiggle the toes. Capillary refill is normal at less than 2 seconds. Sensation intact. Neurovascular status is circulatory status are intact. - Labs CBC & Chem 7: 04/08/17 06:52 04/10/17 06:22 Labs: Abnormal Lab Results - Last 24 Hours (Table) 04/09/17 04/09/17 04/09/17 Range/Units 11:00 13:48 17:16 Carbon Dioxide (22-30) mmol/L BUN (7-17) mg/dL Glucose (74-99) mg/dL POC Glucose (mg/dL) 146 H 206 H 139 H (75-99) mg/dL Albumin (3.5-5.0) g/dL 04/09/17 04/10/17 04/10/17 Range/Units 19:48 06:22 06:32 Carbon Dioxide 32 H (22-30) mmol/L BUN 6 L (7-17) mg/dL Glucose 166 H (74-99) mg/dL POC Glucose (mg/dL) 164 H 172 H (75-99) mg/dL Albumin 3.3 L (3.5-5.0) g/dL Assessment and Plan (1) Bimalleolar fracture of left ankle Current Visit: Yes Status: Acute Code(s): S82.842A - DISPLACED BIMALLEOLAR FRACTURE OF LEFT LOWER LEG, INIT SNOMED Code(s): 127945948 (2) Fall Current Visit: Yes Status: Acute Code(s): W19.XXXA - UNSPECIFIED FALL, INITIAL ENCOUNTER SNOMED Code(s): 5656238 Plan: #1. Nonweightbearing to the left lower extremity with walker. #2. Maintain splint. #3. Continue routine postoperative care #4. Anticoagulation per medicine. #5. Patient is to follow-up in [address] Matt. We'll continue to follow the patient closely while in hospital.
[2017-04-10] MEDS: THIAMINE 100 MG TAB PO SCH ×2 (10:53→17:32)
[2017-04-10] MEDS: HYDROcodone/APAP 10-325MG 1 EACH TAB PO PRN ×3 (10:53→21:22)
[2017-04-10 11:21] LABS: Glucose,Whole Blood 265 mg/dL (75-99)
--- NOTE | 2017-04-10 13:23 | P.PN ---
Subjective Patient was admitted for alcohol intoxication fall and is being treated for delirium tremens patient had an ankle fracture which is swollen patient will undergo surgical correction on Wednesday. Patient is complaining of pain in the left ankle area. 04/10/2016 Patient is status post ankle surgery no significant overnight events controlled no delirium tremens or alcohol withdrawal symptoms at this time Constitutional: Denied any fatigue denied any fever. Cardio vascular: denied any chest pain, palpitations Gastrointestinal denied any nausea vomiting Pulmonary: Denied any shortness of breath cough Neurologic denied any new focal deficits Objective - Vital Signs Vital signs: Vital Signs Temp 98.5 F 04/10/17 08:00 Pulse 94 04/10/17 11:09 Resp 14 04/10/17 11:09 BP 150/72 04/10/17 08:00 Pulse Ox 94 L 04/10/17 08:00 Intake & Output 04/09/17 04/10/17 04/10/17 18:59 06:59 18:59 Intake Total 601 Output Total 13 Balance 588 Intake: IV 601 Output: Urine 3 Estimated Blood Loss 10 Other: Voiding Method Bedside Commode Bedside Commode # Voids 3 1 # Bowel Movements 1 - Exam PHYSICAL EXAMINATION: GENERAL: The patient is alert and oriented x3, not in any acute distress. Well developed, well nourished. HEENT: Pupils are round and equally reacting to light. EOMI. No scleral icterus. No conjunctival pallor. Normocephalic, atraumatic. No pharyngeal erythema. No thyromegaly. CARDIOVASCULAR: S1 and S2 present. No murmurs, rubs, or gallops. PULMONARY: Chest is clear to auscultation, no wheezing or crackles. ABDOMEN: Soft, nontender, nondistended, normoactive bowel sounds. No palpable organomegaly. MUSCULOSKELETAL: No joint swelling or deformity. EXTREMITIES: No cyanosis, clubbing, or pedal edema. NEUROLOGICAL: Gross neurological examination did not reveal any focal deficits. SKIN: No rashes. - Labs CBC & Chem 7: 04/08/17 06:52 04/10/17 06:22 Labs: Abnormal Lab Results - Last 24 Hours (Table) 04/09/17 04/09/17 04/09/17 Range/Units 13:48 17:16 19:48 Carbon Dioxide (22-30) mmol/L BUN (7-17) mg/dL Glucose (74-99) mg/dL POC Glucose (mg/dL) 206 H 139 H 164 H (75-99) mg/dL Albumin (3.5-5.0) g/dL 04/10/17 04/10/17 04/10/17 Range/Units 06:22 06:32 11:19 Carbon Dioxide 32 H (22-30) mmol/L BUN 6 L (7-17) mg/dL Glucose 166 H (74-99) mg/dL POC Glucose (mg/dL) 172 H 265 H (75-99) mg/dL Albumin 3.3 L (3.5-5.0) g/dL Assessment and Plan Plan: -Acute left ankle bimalleolar fracture: Pain management and DVT prophylaxis as per orthopedic surgery -Alcohol withdrawal: Patient is on Ativan alcohol withdrawl protocol thiamine multivitamin supplementationsymptoms of withdrawal at this time Hypertension well controlled with clonidine patient is on clonidine because of alcohol withdrawal related hypertension and tachycardia -Hyperlipidemia -Bipolar and depression -Nicotine dependence -History of IV drug use, patient does have elevated liver enzymes secondary to chronic hepatitis C patient also has hepatitis B as well from her previous IV drug use f/U with [facility] as out patient.
[2017-04-10 16:56] LABS: Glucose,Whole Blood 138 mg/dL (75-99)
[2017-04-10 20:35] LABS: Glucose,Whole Blood 281 mg/dL (75-99)
[2017-04-10] MEDS: OLANZapine 10 MG TAB PO SCH (21:23)
[2017-04-11] MEDS: 1: MVI, ADULT NO.4 WITH VIT K 10 ML, THIAMINE 100 MG, FOLIC ACID 1 MG in SODIUM CHLORIDE IV SCH ×12 (04:49→15:08)
[2017-04-11] MEDS: LACTATED RINGERS 1,000 ML IV SCH ×3 (04:50→15:09)
[2017-04-11] MEDS: HYDROcodone/APAP 10-325MG 1 EACH TAB PO PRN ×4 (06:51→22:07)
[2017-04-11 07:00] LABS: Glucose,Whole Blood 150 mg/dL (75-99)
[2017-04-11] MEDS: IPRATROPIUM-ALBUTEROL 3 ML NEB INHALATION SCH ×4 (07:11→20:23)
--- NOTE | 2017-04-11 07:53 | P.PN ---
Subjective Progress Note Date: 04/11/17 This is a 51-year-old female who is being followed by orthopedics for bimalleolar fracture dislocation of the left ankle. Patient is status post ORIF of the left ankle on 04/09/2017. This is postoperative day #2. Patient states her pain is well controlled today. Patient is tolerating the splint well. Patient denies any new symptoms today. Objective - Vital Signs Vital signs: Vital Signs Temp 97.5 F L 04/11/17 06:54 Pulse 85 04/11/17 07:22 Resp 16 04/11/17 07:12 BP 167/91 04/11/17 06:54 Pulse Ox 95 04/11/17 06:54 Intake & Output 04/10/17 04/11/17 04/11/17 18:59 06:59 18:59 Intake Total 118 Balance 118 Intake: Oral 118 Other: Voiding Method Bedside Commode Bedside Commode # Voids 2 1 - Exam Vital signs are stable. Patient is in no acute distress and is alert and oriented 3. Splint is clean, dry, and intact. Patient is able to wiggle the toes. Capillary refill is normal at less than 2 seconds. Sensation intact. Neurovascular status is circulatory status are intact. - Labs CBC & Chem 7: 04/08/17 06:52 04/10/17 06:22 Labs: Abnormal Lab Results - Last 24 Hours (Table) 04/10/17 04/10/17 04/10/17 Range/Units 06:22 11:19 16:55 Carbon Dioxide 32 H (22-30) mmol/L BUN 6 L (7-17) mg/dL Glucose 166 H (74-99) mg/dL POC Glucose (mg/dL) 265 H 138 H (75-99) mg/dL Albumin 3.3 L (3.5-5.0) g/dL 04/10/17 04/11/17 Range/Units 20:15 06:57 Carbon Dioxide (22-30) mmol/L BUN (7-17) mg/dL Glucose (74-99) mg/dL POC Glucose (mg/dL) 281 H 150 H (75-99) mg/dL Albumin (3.5-5.0) g/dL Assessment and Plan (1) Bimalleolar fracture of left ankle Current Visit: Yes Status: Acute Code(s): S82.842A - DISPLACED BIMALLEOLAR FRACTURE OF LEFT LOWER LEG, INIT SNOMED Code(s): 032458289 (2) Fall Current Visit: Yes Status: Acute Code(s): W19.XXXA - UNSPECIFIED FALL, INITIAL ENCOUNTER SNOMED Code(s): 7095823 Plan: #1. Nonweightbearing to the left lower extremity with walker. #2. Maintain splint. #3. Continue routine postoperative care #4. Anticoagulation per medicine. #5. Patient is to follow-up in [address] Matt. We'll continue to follow the patient closely while in hospital.
[2017-04-11 08:01] LABS: ALT 36 U/L (9-52); AST 26 U/L (14-36); Albumin 3.3 g/dL (3.5-5.0); Alkaline Phosphatase 75 U/L (38-126); Anion Gap 9 mmol/L; Blood Urea Nitrogen 8 mg/dL (7-17); Calcium 9.1 mg/dL (8.4-10.2); Carbon Dioxide 29 mmol/L (22-30); Chloride 101 mmol/L (98-107); Glucose 155 mg/dL (74-99); Sodium 139 mmol/L (137-145); Total Bilirubin 0.7 mg/dL (0.2-1.3); Total Protein 6.4 g/dL (6.3-8.2)
[2017-04-11] MEDS: INSULIN ASPART 100 UNIT/ML 1 ML 10 ML VIAL SQ SCH ×4 (08:05→22:11)
[2017-04-11] MEDS: VENLAFAXINE HCL ER 150 MG CAP PO SCH (08:06)
[2017-04-11] MEDS: HEPARIN SODIUM,PORCINE 5,000 UNIT/ML 1 ML VIAL SQ SCH ×2 (08:06→22:10)
[2017-04-11 08:07] LABS: Potassium 4.2 mmol/L (3.5-5.1)
[2017-04-11] MEDS: NICOTINE 21MG/24HR PATCH TRANSDERM SCH (08:07)
[2017-04-11] MEDS: THIAMINE 100 MG TAB PO SCH ×2 (08:07→15:08)
[2017-04-11] MEDS: LISINOPRIL 10 MG TAB PO SCH (08:07)
[2017-04-11] MEDS: metFORMIN 500 MG TAB PO SCH ×3 (08:07→22:30)
--- NOTE | 2017-04-11 09:52 | PN ---
PROGRESS NOTE DATE OF SERVICE: 04/11/17 The patient is a 51-year-old pleasant white female admitted to the hospital with left malleolar fracture for which she underwent surgery on Wednesday. While in the hospital, she was noted to have positive hepatitis B serologies and hepatitis B surface antigen was positive and hepatitis B core IgM antibody was positive and hence we are consulted. The patient has history of alcohol abuse and history of hepatitis C infection in the past. She however has normal serum transaminases. She has been complaining of intermittent dysphagia to solids and in the past she had an upper endoscopy with dilation by me. She denies any heartburn. Reports no odynophagia. PHYSICAL EXAMINATION: She appears comfortable. No apparent distress. VITAL SIGNS: Stable. Blood pressure is 167/91, pulse rate 85, temperature 97.5. HEENT examination remarkable. Conjunctivae pink. Sclerae anicteric. Oral cavity no lesions. Neck: No jugular venous distention or lymph node enlargement. Chest was clear to auscultation. HEART: Regular rate and rhythm. ABDOMEN: Soft. Bowel sounds are positive. No organomegaly. Extremities no pedal edema. Cast on the left ankle. NEUROLOGIC: Alert and oriented x3. No focal deficits. LABS: From 2 days ago hepatitis B surface antigen is positive. Hepatitis B core IgM antibody positive. Hepatitis C IgG antibodies positive. ALT, AST, bilirubin and alkaline phosphatase are all within normal limits. IMPRESSION: This is a lady who was admitted to hospital with left ankle fracture for which she underwent surgery 2 days ago. On routine labs, she was noted to have hepatitis B surface antigen that was positive and hepatitis B core IgM antibody that is positive, but in the setting of normal serum transaminases. Often when these 2 tests are positive it indicates an acute hepatitis B infection, but it is always associated with elevated serum transaminases, which is not the case in this particular patient. Hence, to confirm this a hepatitis B viral DNA was ordered and the results are not available at the time of this dictation. She is also positive for hepatitis C antibody IgG and this will be confirmed further with an hepatitis C viral RNA to evaluate for chronic hepatitis C infection and at this time of dictation all labs are still pending. RECOMMENDATIONS: The patient was advised to follow up in the office in a couple of weeks to discuss the labs and further medical management. Thank you for this consultation. MMODL / IJN: [id number] /
--- NOTE | 2017-04-11 10:33 | P.PN ---
Subjective Patient was admitted for alcohol intoxication fall and is being treated for delirium tremens patient had an ankle fracture which is swollen patient will undergo surgical correction on Wednesday. Patient is complaining of pain in the left ankle area. 04/10/2016 Patient is status post ankle surgery no significant overnight events controlled no delirium tremens or alcohol withdrawal symptoms at this time Alena in 2017 No overnight events patient pain is better controlled today Constitutional: Denied any fatigue denied any fever. Cardio vascular: denied any chest pain, palpitations Gastrointestinal denied any nausea vomiting Pulmonary: Denied any shortness of breath cough Neurologic denied any new focal deficits Objective - Vital Signs Vital signs: Vital Signs Temp 97.5 F L 04/11/17 06:54 Pulse 85 04/11/17 07:22 Resp 16 04/11/17 07:12 BP 167/91 04/11/17 06:54 Pulse Ox 95 04/11/17 06:54 Intake & Output 04/10/17 04/11/17 04/11/17 18:59 06:59 18:59 Intake Total 118 240 Balance 118 240 Intake: Oral 118 240 Other: Voiding Method Bedside Commode Bedside Commode # Voids 2 1 - Exam PHYSICAL EXAMINATION: GENERAL: The patient is alert and oriented x3, not in any acute distress. Well developed, well nourished. HEENT: Pupils are round and equally reacting to light. EOMI. No scleral icterus. No conjunctival pallor. Normocephalic, atraumatic. No pharyngeal erythema. No thyromegaly. CARDIOVASCULAR: S1 and S2 present. No murmurs, rubs, or gallops. PULMONARY: Chest is clear to auscultation, no wheezing or crackles. ABDOMEN: Soft, nontender, nondistended, normoactive bowel sounds. No palpable organomegaly. MUSCULOSKELETAL: No joint swelling or deformity. EXTREMITIES: No cyanosis, clubbing, or pedal edema. NEUROLOGICAL: Gross neurological examination did not reveal any focal deficits. SKIN: No rashes. - Labs CBC & Chem 7: 04/08/17 06:52 04/11/17 07:14 Labs: Abnormal Lab Results - Last 24 Hours (Table) 04/10/17 04/10/17 04/10/17 Range/Units 11:19 16:55 20:15 Creatinine (0.52-1.04) mg/dL Glucose (74-99) mg/dL POC Glucose (mg/dL) 265 H 138 H 281 H (75-99) mg/dL Albumin (3.5-5.0) g/dL 04/11/17 04/11/17 Range/Units 06:57 07:14 Creatinine 0.50 L (0.52-1.04) mg/dL Glucose 155 H (74-99) mg/dL POC Glucose (mg/dL) 150 H (75-99) mg/dL Albumin 3.3 L (3.5-5.0) g/dL Assessment and Plan Plan: -Acute left ankle bimalleolar fracture: Pain management and DVT prophylaxis as per orthopedic surgery -Alcohol withdrawal: Patient is on Ativan alcohol withdrawl protocol thiamine multivitamin supplementation, niosymptoms of withdrawal at this time Hypertension well controlled with clonidine patient is on clonidine because of alcohol withdrawal related hypertension and tachycardia -Hyperlipidemia -Bipolar and depression -Nicotine dependence -History of IV drug use, patient does have elevated liver enzymes secondary to chronic hepatitis C patient also has hepatitis B as well from her previous IV drug use f/U with [facility] as out patient.
[2017-04-11 11:58] LABS: Glucose,Whole Blood 193 mg/dL (75-99)
[2017-04-11 16:30] LABS: Glucose,Whole Blood 141 mg/dL (75-99)
[2017-04-11 20:54] LABS: Glucose,Whole Blood 152 mg/dL (75-99)
[2017-04-11] MEDS ORDERED: ONDANSETRON 4 MG/2 ML VIAL IVP ONE (21:47)
[2017-04-11] MEDS ORDERED: MIDAZOLAM 2 MG/2 ML VIAL IV PRN (21:47)
[2017-04-11] MEDS ORDERED: fentaNYL (PF) 50 MCG/ML 2 ML AMP IV PRN (21:47)
[2017-04-11] MEDS ORDERED: HYDROcodone/APAP 10-325MG 1 EACH TAB PO PRN ×2 (21:47)
[2017-04-11] MEDS ORDERED: DEXAMETHASONE SOD PHOSPHATE 10 MG/ML 1 ML VIAL IV ONE (21:47)
[2017-04-11] MEDS: OLANZapine 10 MG TAB PO SCH (22:11)
[2017-04-12] MEDS: HYDROcodone/APAP 10-325MG 1 EACH TAB PO PRN ×4 (05:22→23:08)
[2017-04-12 06:58] LABS: Glucose,Whole Blood 263 mg/dL (75-99)
[2017-04-12] MEDS: IPRATROPIUM-ALBUTEROL 3 ML NEB INHALATION SCH ×4 (07:12→20:19)
[2017-04-12] MEDS: LACTATED RINGERS 1,000 ML IV SCH ×3 (07:39→17:50)
[2017-04-12] MEDS: INSULIN ASPART 100 UNIT/ML 1 ML 10 ML VIAL SQ SCH ×4 (07:44→21:32)
--- NOTE | 2017-04-12 07:56 | P.PN ---
Subjective Progress Note Date: 04/12/17 Principal diagnosis: Bimalleolar fracture dislocation left ankle. Delirium tremens. This is a 51-year-old female who we are following regarding her bimalleolar fracture dislocation of the left ankle. She is status post ORIF left ankle. She has no new complaints or concerns today. We are anticipating rehab placement today. Objective - Vital Signs Vital signs: Vital Signs Temp 98.1 F 04/12/17 07:17 Pulse 78 04/12/17 07:23 Resp 16 04/12/17 07:17 BP 107/68 04/12/17 07:17 Pulse Ox 91 L 04/12/17 07:17 Intake & Output 04/11/17 04/12/17 04/12/17 18:59 06:59 18:59 Intake Total 480 118 Output Total 600 Balance 480 -482 Intake: Oral 480 118 Output: Stool 600 Other: Voiding Method Bedside Commode # Voids 1 1 - Exam This is a 51-year-old female in no acute distress. She is alert and oriented today. Exam of the left lower extremity reveals that her splint is intact. Pedal pulses +2/4. - Labs CBC & Chem 7: 04/08/17 06:52 04/11/17 07:14 Labs: Abnormal Lab Results - Last 24 Hours (Table) 04/11/17 04/11/17 04/11/17 Range/Units 07:14 11:53 16:28 Creatinine 0.50 L (0.52-1.04) mg/dL Glucose 155 H (74-99) mg/dL POC Glucose (mg/dL) 193 H 141 H (75-99) mg/dL Albumin 3.3 L (3.5-5.0) g/dL 04/11/17 04/12/17 Range/Units 20:48 06:56 Creatinine (0.52-1.04) mg/dL Glucose (74-99) mg/dL POC Glucose (mg/dL) 152 H 263 H (75-99) mg/dL Albumin (3.5-5.0) g/dL Assessment and Plan (1) Bimalleolar fracture of left ankle Current Visit: Yes Status: Acute Code(s): S82.842A - DISPLACED BIMALLEOLAR FRACTURE OF LEFT LOWER LEG, INIT SNOMED Code(s): 492368514 (2) Fall Current Visit: Yes Status: Acute Code(s): W19.XXXA - UNSPECIFIED FALL, INITIAL ENCOUNTER SNOMED Code(s): 1463393 Plan: The clinical and x-ray findings are discussed with the patient. We're planning transfer to IP rehab today.
[2017-04-12] MEDS: HEPARIN SODIUM,PORCINE 5,000 UNIT/ML 1 ML VIAL SQ SCH ×2 (08:49→21:32)
[2017-04-12] MEDS: NICOTINE 21MG/24HR PATCH TRANSDERM SCH (08:49)
[2017-04-12] MEDS: LISINOPRIL 10 MG TAB PO SCH (08:49)
[2017-04-12] MEDS: VENLAFAXINE HCL ER 150 MG CAP PO SCH (08:49)
[2017-04-12] MEDS: metFORMIN 500 MG TAB PO SCH ×3 (08:49→21:31)
[2017-04-12] MEDS: 1: MVI, ADULT NO.4 WITH VIT K 10 ML, THIAMINE 100 MG, FOLIC ACID 1 MG in SODIUM CHLORIDE IV SCH ×8 (09:48→17:50)
--- NOTE | 2017-04-12 10:50 | P.DS ---
Providers Date of admission: 04/03/17 10:13 Attending physician: Joel Lopez Consults: 04/03/17 10:10 Consult Physician Routine Consulting Provider: Joel Lopez Consult Reason/Comments: medical management Do you want consulting provider notified?: Yes 04/05/17 08:32 Consult Physician Routine Consulting Provider: Oral Castro Consult Reason/Comments: Eval toe nails for trimming prior to surgery Do you want consulting provider notified?: Yes 04/07/17 07:46 Consult Physician Routine Consulting Provider: Nino Matt Consult Reason/Comments: Left ankle fracture Do you want consulting provider notified?: Already Contacted 04/08/17 17:54 Consult Physician Routine Consulting Provider: Mariana Goff Consult Reason/Comments: Hepatitis B Results Do you want consulting provider notified?: Yes Primary care physician: Venessa [facility] Course: Patient was admitted for alcohol intoxication fall and is being treated for delirium tremens patient had an ankle fracture which is swollen patient will undergo surgical correction on Wednesday. Patient is complaining of pain in the left ankle area. 04/10/2016 Patient is status post ankle surgery no significant overnight events controlled no delirium tremens or alcohol withdrawal symptoms at this time 04/12/2016 Patient if possible will be discharged to subacute rehabilitation today patient still has wheezing on lung exam and rhonchus breath sounds because of which we' ll treat her bronchitis may have COPD which was never diagnosed her the wheezing did not improve with inhalational stress because of which will put her on low-dose steroid taper. Patient is already being discharged on antibiotics. PHYSICAL EXAMINATION: GENERAL: The patient is alert and oriented x3, not in any acute distress. Well developed, well nourished. HEENT: Pupils are round and equally reacting to light. EOMI. No scleral icterus. No conjunctival pallor. Normocephalic, atraumatic. No pharyngeal erythema. No thyromegaly. CARDIOVASCULAR: S1 and S2 present. No murmurs, rubs, or gallops. PULMONARY: Good air entry into bilateral lung mg rhonchus breath sounds and mild expiratory wheezing was appreciated ABDOMEN: Soft, nontender, nondistended, normoactive bowel sounds. No palpable organomegaly. MUSCULOSKELETAL: Foot orthopedic surgery EXTREMITIES: No cyanosis, clubbing, or pedal edema. NEUROLOGICAL: Gross neurological examination did not reveal any focal deficits. SKIN: No rashes. Assessment and Plan Plan: -Acute left ankle bimalleolar fracture: Pain management and DVT prophylaxis as per orthopedic surgery -Alcohol withdrawal: No more withdrawals recommend thiamine supplementation Hypertension well controlled with clonidine patient is on clonidine because of alcohol withdrawal related hypertension and tachycardia -Hyperlipidemia -Bipolar and depression -Nicotine dependence -History of IV drug use, patient does have elevated liver enzymes secondary to chronic hepatitis C patient also has hepatitis B as well from her previous IV drug use f/U with [facility] as out patient. Patient Condition at Discharge: Serious Plan - Discharge Summary New Discharge Prescriptions: New Cefadroxil [Duricef] 500 mg PO Q12HR #14 cap HYDROcodone/APAP 10-325MG [[place] 10-325] 1 - 2 tab PO Q4-6H PRN #90 tab PRN Reason: Pain Sennosides-Docusate Sodium [Senokot-S] 1 tab PO BID #60 tablet Albuterol Inhaler [Ventolin Hfa Inhaler] 1 - 2 puff INHALATION Q6HR PRN #1 inhaler PRN Reason: Shortness Of Breath Or Wheezing Budesonide-Formot 160-4.5 Mcg [Symbicort 160-4.5 Mcg Inhaler] 2 puff INHALATION BID #1 inhaler predniSONE 10 mg PO DAILY #30 tab No Action Venlafaxine HCl [Effexor XR] 300 mg PO QAM metFORMIN HCL [Glucophage] 500 mg PO TID OLANZapine [ZyPREXA] 20 mg PO HS Lisinopril [Prinivil] 10 mg PO DAILY Albuterol Inhaler [Ventolin Hfa Inhaler] 1 - 2 puff INHALATION Q4-6H PRN PRN Reason: Shortness Of Breath Discharge Medication List Venlafaxine HCl [Effexor XR] 300 mg PO QAM 03/31/16 [History] Lisinopril [Prinivil] 10 mg PO DAILY 06/16/16 [History] OLANZapine [ZyPREXA] 20 mg PO HS 06/16/16 [History] metFORMIN HCL [Glucophage] 500 mg PO TID 06/16/16 [History] Albuterol Inhaler [Ventolin Hfa Inhaler] 1 - 2 puff INHALATION Q4-6H PRN [History] Cefadroxil [Duricef] 500 mg PO Q12HR #14 cap 04/09/17 [Rx] HYDROcodone/APAP 10-325MG [[place] 10-325] 1 - 2 tab PO Q4-6H PRN #90 tab [Rx] Sennosides-Docusate Sodium [Senokot-S] 1 tab PO BID #60 tablet 04/09/17 [Rx] Albuterol Inhaler [Ventolin Hfa Inhaler] 1 - 2 puff INHALATION Q6HR PRN #1 inhaler 04/12/17 [Rx] Budesonide-Formot 160-4.5 Mcg [Symbicort 160-4.5 Mcg Inhaler] 2 puff INHALATION BID #1 inhaler 04/12/17 [Rx] predniSONE 10 mg PO DAILY #30 tab 04/12/17 [Rx] Follow up Appointment(s)/Referral(s): Ilene Garrison PAC [PHYSICIAN [employer]OMATION CONTROL TECHNICIAN] - 2 Weeks Venessa Marte MD [Primary Care Provider] - 1-2 days Leatha Fernandez PAC [REFERRING] - 3 Weeks Activity/Diet/Wound Care/Special Instructions: DOUGIE maurer LLE. Keep splint intact. Elevate and ice LLE. Discharge Disposition: TRANSFER TO SNF/ECF
[2017-04-12 11:35] LABS: Glucose,Whole Blood 146 mg/dL (75-99)
[2017-04-12] MEDS: THIAMINE 100 MG TAB PO SCH ×2 (11:49→16:53)
[2017-04-12 15:36] LABS: HCV Quant Log 2.65 (<1.08); HCV Quantitative Result 443 IU/mL (<12)
[2017-04-12 17:08] LABS: Glucose,Whole Blood 222 mg/dL (75-99)
[2017-04-12 20:22] LABS: Glucose,Whole Blood 195 mg/dL (75-99)
[2017-04-12] MEDS: OLANZapine 10 MG TAB PO SCH (21:32)
[2017-04-13] MEDS: 1: MVI, ADULT NO.4 WITH VIT K 10 ML, THIAMINE 100 MG, FOLIC ACID 1 MG in SODIUM CHLORIDE IV SCH ×8 (01:04→12:45)
[2017-04-13] MEDS: LACTATED RINGERS 1,000 ML IV SCH ×2 (01:05→12:45)
[2017-04-13] MEDS: HYDROcodone/APAP 10-325MG 1 EACH TAB PO PRN ×3 (04:15→17:42)
[2017-04-13 06:59] LABS: Glucose,Whole Blood 173 mg/dL (75-99)
[2017-04-13] MEDS: IPRATROPIUM-ALBUTEROL 3 ML NEB INHALATION SCH ×4 (08:30→19:38)
--- NOTE | 2017-04-13 08:45 | P.PN ---
Subjective Progress Note Date: 04/13/17 Principal diagnosis: Status post left ankle ORIF This is a 51 year-old female post left ankle ORIF. This is post-op day 4. The patient was evaluated at the bedside today. The patient denies nausea, vomiting , abdominal pain, shortness of breath, and chest pain this morning. She states her pain is controlled at this time. We awaiting rehab placement today. Objective - Vital Signs Vital signs: Vital Signs Temp 97.5 F L 04/13/17 02:28 Pulse 82 04/13/17 02:28 Resp 17 04/13/17 02:28 BP 119/73 04/13/17 02:28 Pulse Ox 91 L 04/13/17 02:28 Intake & Output 04/12/17 04/13/17 04/13/17 18:59 06:59 18:59 Intake Total 960 500 Output Total 400 Balance 960 100 Weight 77.111 kg Intake: Oral 960 500 Output: Urine 400 Other: Voiding Method Bedside Commode Toilet # Voids 1 4 - Exam The patient does not appear in acute distress. Alert and orientated x3. Dressing and splint are clean dry and intact. She is able to wiggle her toes without difficulty. Sensation and circulatory status is intact. - Labs CBC & Chem 7: 04/08/17 06:52 04/11/17 07:14 Labs: Abnormal Lab Results - Last 24 Hours (Table) 04/10/17 04/12/17 04/12/17 Range/Units 06:22 11:33 17:06 POC Glucose (mg/dL) 146 H 222 H (75-99) mg/dL HCV RNA Qual (PCR) DETECTED H (Not detected) Hepatitis C RNA Quant 443 H (<12) IU/mL HCV RNA PCR log copra processor/ml 2.65 H (<1.08) 04/12/17 04/13/17 Range/Units 20:12 06:55 POC Glucose (mg/dL) 195 H 173 H (75-99) mg/dL HCV RNA Qual (PCR) (Not detected) Hepatitis C RNA Quant (<12) IU/mL HCV RNA PCR log copra processor/ml (<1.08) Assessment and Plan (1) Fall Current Visit: Yes Status: Acute Code(s): W19.XXXA - UNSPECIFIED FALL, INITIAL ENCOUNTER SNOMED Code(s): 3349627 (2) Bimalleolar fracture of left ankle Current Visit: Yes Status: Acute Code(s): S82.842A - DISPLACED BIMALLEOLAR FRACTURE OF LEFT LOWER LEG, INIT SNOMED Code(s): 713892255 Plan: 1. Continue pain control 2. Continue physical therapy and ambulation 3. Anticipate discharge to skilled rehab today
[2017-04-13] MEDS: INSULIN ASPART 100 UNIT/ML 1 ML 10 ML VIAL SQ SCH ×4 (09:26→21:37)
[2017-04-13] MEDS: NICOTINE 21MG/24HR PATCH TRANSDERM SCH (09:26)
[2017-04-13] MEDS: LISINOPRIL 10 MG TAB PO SCH (09:27)
[2017-04-13] MEDS: metFORMIN 500 MG TAB PO SCH ×3 (09:27→21:37)
[2017-04-13] MEDS: VENLAFAXINE HCL ER 150 MG CAP PO SCH (09:27)
[2017-04-13] MEDS: HEPARIN SODIUM,PORCINE 5,000 UNIT/ML 1 ML VIAL SQ SCH ×2 (09:27→21:37)
[2017-04-13 11:49] LABS: Glucose,Whole Blood 153 mg/dL (75-99)
[2017-04-13 12:04] VITALS: RESP 16
[2017-04-13 13:20] LABS: Hepatitis BE Antibody NEG (Negative)
[2017-04-13 13:25] LABS: Hepatitis BE Antigen POS (Negative)
[2017-04-13 14:21] LABS: Hepatitis B Virus DNA DETECTED (Not detected); Log HBV IU/mL 8.03 (<1.00)
[2017-04-13 17:16] LABS: Glucose,Whole Blood 126 mg/dL (75-99)
[2017-04-13] MEDS: THIAMINE 100 MG TAB PO SCH (19:09)
[2017-04-13 20:50] LABS: Glucose,Whole Blood 200 mg/dL (75-99)
[2017-04-13] MEDS: OLANZapine 10 MG TAB PO SCH (21:37)
[2017-04-14] MEDS: HYDROcodone/APAP 10-325MG 1 EACH TAB PO PRN ×4 (01:11→16:47)
[2017-04-14 07:11] LABS: Glucose,Whole Blood 126 mg/dL (75-99)
[2017-04-14] MEDS: INSULIN ASPART 100 UNIT/ML 1 ML 10 ML VIAL SQ SCH ×2 (08:06→12:52)
[2017-04-14] MEDS: IPRATROPIUM-ALBUTEROL 3 ML NEB INHALATION SCH ×3 (08:17→15:10)
[2017-04-14] MEDS: metFORMIN 500 MG TAB PO SCH (08:40)
[2017-04-14] MEDS: NICOTINE 21MG/24HR PATCH TRANSDERM SCH (08:40)
[2017-04-14] MEDS: LISINOPRIL 10 MG TAB PO SCH (08:41)
[2017-04-14] MEDS: HEPARIN SODIUM,PORCINE 5,000 UNIT/ML 1 ML VIAL SQ SCH (08:41)
[2017-04-14] MEDS: VENLAFAXINE HCL ER 150 MG CAP PO SCH (08:41)
[2017-04-14 11:34] LABS: Glucose,Whole Blood 171 mg/dL (75-99)
[2017-04-14] MEDS: THIAMINE 100 MG TAB PO SCH (11:49)
[2017-04-14] MEDS: 1: MVI, ADULT NO.4 WITH VIT K 10 ML, THIAMINE 100 MG, FOLIC ACID 1 MG in SODIUM CHLORIDE IV SCH ×4 (11:57)
[2017-04-14 14:36] VITALS: BP 132/75; TEMP 98.3
[2017-04-14 15:21] VITALS: PULSE 84
== END 2017-04-14 16:53 | DRG 493 ==
LOC: EC 20:41 → 3SUR 22:50 → OBSVTOIN 04-03 10:13
PROVIDERS: ADMIT Hospitalist; ATTEND Hospitalist
PROC: 0QSH04Z Reposition Left Tibia with Internal Fixation Device, Open Approach (ICD-10-PCS; principal; 2017-04-03)
PROC: 0QSK04Z Reposition Left Fibula with Internal Fixation Device, Open Approach (ICD-10-PCS; principal; 2017-04-03)
DX: S82.852A Displaced trimalleolar fracture of left lower leg, initial encounter for closed fracture (principal); F10.231 Alcohol dependence with withdrawal delirium; E11.65 Type 2 diabetes mellitus with hyperglycemia; B18.1 Chronic viral hepatitis B without delta-agent; B35.1 Tinea unguium; F11.10 Opioid abuse, uncomplicated; B18.2 Chronic viral hepatitis C; E78.5 Hyperlipidemia, unspecified; F17.200 Nicotine dependence, unspecified, uncomplicated; F31.9 Bipolar disorder, unspecified; F43.10 Post-traumatic stress disorder, unspecified; I10 Essential (primary) hypertension; Z59.0 Homelessness; Z79.84 Long term (current) use of oral hypoglycemic drugs; Z79.899 Other long term (current) drug therapy; Z86.73 Personal history of transient ischemic attack (TIA), and cerebral infarction without residual deficits; Z91.19 Patient's noncompliance with other medical treatment and regimen; Z88.5 Allergy status to narcotic agent; W00.0XXA Fall on same level due to ice and snow, initial encounter
CPT/HCPCS: 29515; 36415; 71046; 76705; 80053; 80074; 80320; 81001; 82105; 83036; 85025; 85610; 85730; 86707; 87086; 87340; 87350; 87517; 87522; 93005; 94640; 94760; 96365; 96372; 96375; 99285

== ENCOUNTER 2017-04-29 15:30 | Inpatient (IN) | payer OTHER ==
[2017-04-29] MEDS ORDERED: SODIUM CHLORIDE 0.9% 1,000 ML IV STA (15:46)
[2017-04-29 16:23] LABS: Basophils # (A) 0.1 k/uL (0-0.2); Basophils % (A) 1 %; Eosinophils # (A) 0.2 k/uL (0-0.7); Eosinophils % (A) 3 %; HCT 37.5 % (34.0-46.0); HGB 12.8 gm/dL (11.4-16.0); Lymphocytes # (A) 2.7 k/uL (1.0-4.8); Lymphocytes % (A) 37 %; MCH 31.2 pg (25.0-35.0); MCHC 34.1 g/dL (31.0-37.0); MCV 91.5 fL (80.0-100.0); Monocytes # (A) 0.5 k/uL (0-1.0); Monocytes % (A) 7 %; Neutrophils # (A) 3.7 k/uL (1.3-7.7); Neutrophils % (A) 51 %; RDW 14.5 % (11.5-15.5); WBC 7.2 k/uL (3.8-10.6)
[2017-04-29 16:30] LABS: Creatine Kinase <20 U/L (30-135)
[2017-04-29 16:32] LABS: ALT 35 U/L (9-52); AST 29 U/L (14-36); Albumin 3.6 g/dL (3.5-5.0); Alkaline Phosphatase 90 U/L (38-126); Anion Gap 10 mmol/L; Blood Urea Nitrogen 18 mg/dL (7-17); Calcium 9.1 mg/dL (8.4-10.2); Carbon Dioxide 30 mmol/L (22-30); Chloride 99 mmol/L (98-107); Glucose 190 mg/dL (74-99); Magnesium 1.4 mg/dL (1.6-2.3); Sodium 139 mmol/L (137-145); Total Bilirubin 0.4 mg/dL (0.2-1.3); Total Protein 6.8 g/dL (6.3-8.2)
[2017-04-29 16:33] LABS: INR 1.1 (<1.2); Partial Thromboplastin Time 23.4 sec (22.0-30.0); Prothrombin Time 10.6 sec (9.0-12.0)
[2017-04-29 16:43] LABS: Creatine Kinase MB <0.2 ng/mL (0.0-2.4); Platelet Count 11 k/uL (150-450); Troponin I <0.012 ng/mL (0.000-0.034)
--- NOTE | 2017-04-29 16:55 | ED ---
General Adult HPI - General Chief complaint: Recheck/Abnormal Lab/Rx Stated complaint: Abnormal Labs Time Seen by Provider: 04/29/17 15:46 Source: EMS, RN notes reviewed, old records reviewed Mode of arrival: EMS Limitations: no limitations - History of Present Illness Initial comments: This is a 51-year-old female to the ER for evaluation. This patient presents today for evaluation regards to abnormal lab tests. Patient has significant recent medical history for ankle fracture with surgical fixation. Patient states she was receiving heparin on the hospital at the time. She denies nausea vomiting denies change in appetite. Patient has no significant other complaints. Patient outpatient laboratory test that showed abnormal lab values - Related Data Home Medications Medication Instructions Recorded Confirmed Venlafaxine HCl [Effexor XR] 300 mg PO QAM 03/31/16 04/29/17 Lisinopril [Prinivil] 10 mg PO DAILY@0800 06/16/16 04/29/17 OLANZapine [ZyPREXA] 20 mg PO HS 06/16/16 04/29/17 metFORMIN HCL [Glucophage] 500 mg PO BID 06/16/16 04/29/17 Albuterol Inhaler [Ventolin Hfa 1 puff INHALATION RT-Q6H PRN 04/29/17 04/29/17 Inhaler] Albuterol Nebulized [Ventolin 2.5 mg INHALATION RT-Q6H 04/29/17 04/29/17 Nebulized] Fluticasone/Vilanterol [Breo 1 inhalation PO Q24HR 04/29/17 04/29/17 Ellipta 100-25 Mcg Inhaler] HYDROcodone/APAP 10-325MG [[place] 1 - 2 tab PO Q4H PRN 04/29/17 04/29/17 10-325] Nicotine 21Mg/24Hr Patch [Habitrol 1 each TRANSDERM DAILY@0800 04/29/17 04/29/17 21Mg/24Hr Patch] Sennosides [Senokot] 8.6 mg PO BID@0800,1600 04/29/17 04/29/17 Thiamine [Vitamin B-1] 100 mg PO BID@0800,1600 04/29/17 04/29/17 glipiZIDE [Glucotrol] 7.5 mg PO BID@0800,1600 04/29/17 04/29/17 Previous Rx's Medication Instructions Recorded Azithromycin [Zithromax Tri-Guilherme] 500 mg PO DAILY #5 tab 04/30/17 Tiotropium [place] [Spiriva] 1 cap INHALATION DAILY #1 device 04/30/17 predniSONE 10 mg PO DAILY #30 tab 04/30/17 Allergies Allergy/AdvReac Type Severity Reaction Status Date / Time hydromorphone HCl Allergy Unknown Rash/Hives Verified 04/29/17 15:49 [From Dilaudid] Review of Systems ROS Statement: Those systems with pertinent positive or pertinent negative responses have been documented in the HPI. ROS Other: All systems not noted in ROS Statement are negative. Past Medical History Past Medical History: CVA/TIA, Diabetes Mellitus, Hyperlipidemia, Hypertension, Liver Disease Additional Past Medical History / Comment(s): "past alcoholism quit year ago when she started heroin" , "hepatitis b and c", stroke in 04/2015 with right sided weakness, History of Any Multi-Drug Resistant Organisms: None Reported Past Surgical History: Cholecystectomy, Tonsillectomy, Tubal Ligation Additional Past Surgical History / Comment(s): esophageal surgery Past Anesthesia/Blood Transfusion Reactions: Motion Sickness Past Psychological History: Bipolar, Depression, PTSD Smoking Status: Current every day smoker Past Alcohol Use History: Abuse Past Drug Use History: Cocaine, Heroin - Past Family History Mother Additional Family Medical History / Comment(s): "chorea bill disease" Father Family Medical History: Liver Disease Additional Family Medical History / Comment(s): alcoholic General Exam - General Exam Comments Initial Comments: Cast to left leg Limitations: no limitations General appearance: alert, in no apparent distress Head exam: Present: atraumatic, normocephalic, normal inspection Eye exam: Present: normal appearance, PERRL, EOMI. Absent: scleral icterus, conjunctival injection, periorbital swelling ENT exam: Present: normal exam, mucous membranes moist Neck exam: Present: normal inspection. Absent: tenderness, meningismus, lymphadenopathy Respiratory exam: Present: normal lung sounds bilaterally. Absent: respiratory distress, wheezes, rales, rhonchi, stridor Cardiovascular Exam: Present: regular rate, normal rhythm, normal heart sounds. Absent: systolic murmur, diastolic murmur, rubs, gallop, clicks GI/Abdominal exam: Present: soft, normal bowel sounds. Absent: distended, tenderness, guarding, rebound, rigid Extremities exam: Present: normal inspection, full ROM, normal capillary refill. Absent: tenderness, pedal edema, joint swelling, calf tenderness Back exam: Present: normal inspection Neurological exam: Present: alert, oriented X3, CN II-XII intact Psychiatric exam: Present: normal affect, normal mood Skin exam: Present: warm, dry, intact, normal color. Absent: rash Course Vital Signs 04/29/17 04/29/17 04/29/17 15:32 16:38 17:35 Temperature 98.1 F Pulse Rate 92 93 98 Respiratory 18 18 18 Rate Blood Pressure 131/73 138/82 169/83 O2 Sat by Pulse 95 95 95 Oximetry 04/29/17 04/29/17 18:12 19:20 Temperature Pulse Rate 88 90 Respiratory 18 18 Rate Blood Pressure 122/75 136/74 O2 Sat by Pulse 95 94 L Oximetry - Reevaluation(s) Reevaluation #1: Spoke with Dr. Gilbert regarding patient's symptoms, positive lab tests. He is aware Medical Decision Making - Medical Decision Making 51 female sent in for abnormal lab tests positive thrombocytopenia. Patient does have confirmatory test, will be admitted for and evaluation by oncology - Lab Data Result diagrams: 04/29/17 18:07 04/29/17 16:05 Lab Results 04/29/17 04/29/17 04/29/17 Range/Units 16:05 16:05 16:05 WBC 7.2 (3.8-10.6) k/uL RBC 4.10 (3.80-5.40) m/uL Hgb 12.8 (11.4-16.0) gm/dL Hct 37.5 (34.0-46.0) % MCV 91.5 (80.0-100.0) fL MCH 31.2 (25.0-35.0) pg MCHC 34.1 (31.0-37.0) g/dL RDW 14.5 (11.5-15.5) % Plt Count 11 L* (150-450) k/uL Neutrophils % 51 % Lymphocytes % 37 % Monocytes % 7 % Eosinophils % 3 % Basophils % 1 % Neutrophils # 3.7 (1.3-7.7) k/uL Lymphocytes # 2.7 (1.0-4.8) k/uL Monocytes # 0.5 (0-1.0) k/uL Eosinophils # 0.2 (0-0.7) k/uL Basophils # 0.1 (0-0.2) k/uL Manual Slide Review Performed PT (9.0-12.0) sec INR (<1.2) APTT (22.0-30.0) sec Sodium 139 (137-145) mmol/L Potassium 4.0 (3.5-5.1) mmol/L Chloride 99 (98-107) mmol/L Carbon Dioxide 30 (22-30) mmol/L Anion Gap 10 mmol/L BUN 18 H (7-17) mg/dL Creatinine 0.60 (0.52-1.04) mg/dL Est GFR (MDRD) Af Amer >60 (>60 ml/min/1.73 sqM) Est GFR (MDRD) Non-Af >60 (>60 ml/min/1.73 sqM) Glucose 190 H (74-99) mg/dL Calcium 9.1 (8.4-10.2) mg/dL Magnesium 1.4 L (1.6-2.3) mg/dL Total Bilirubin 0.4 (0.2-1.3) mg/dL AST 29 (14-36) U/L ALT 35 (9-52) U/L Alkaline Phosphatase 90 (38-126) U/L Total Creatine Kinase <20 L (30-135) U/L CK-MB (CK-2) <0.2 (0.0-2.4) ng/mL CK-MB (CK-2) Rel Index Troponin I <0.012 (0.000-0.034) ng/mL Total Protein 6.8 (6.3-8.2) g/dL Albumin 3.6 (3.5-5.0) g/dL Blood Type Blood Type Recheck Antibody Screen Spec Expiration Date 04/29/17 04/29/17 04/29/17 Range/Units 16:05 16:05 18:07 WBC 7.1 (3.8-10.6) k/uL RBC 4.21 (3.80-5.40) m/uL Hgb 13.2 (11.4-16.0) gm/dL Hct 39.4 (34.0-46.0) % MCV 93.5 (80.0-100.0) fL MCH 31.4 (25.0-35.0) pg MCHC 33.6 (31.0-37.0) g/dL RDW 14.4 (11.5-15.5) % Plt Count 12 L* (150-450) k/uL Neutrophils % 54 % Lymphocytes % 35 % Monocytes % 6 % Eosinophils % 3 % Basophils % 1 % Neutrophils # 3.5 (1.3-7.7) k/uL Lymphocytes # 2.3 (1.0-4.8) k/uL Monocytes # 0.4 (0-1.0) k/uL Eosinophils # 0.2 (0-0.7) k/uL Basophils # 0.1 (0-0.2) k/uL Manual Slide Review PT 10.6 (9.0-12.0) sec INR 1.1 (<1.2) APTT 23.4 (22.0-30.0) sec Sodium (137-145) mmol/L Potassium (3.5-5.1) mmol/L Chloride (98-107) mmol/L Carbon Dioxide (22-30) mmol/L Anion Gap mmol/L BUN (7-17) mg/dL Creatinine (0.52-1.04) mg/dL Est GFR (MDRD) Af Amer (>60 ml/min/1.73 sqM) Est GFR (MDRD) Non-Af (>60 ml/min/1.73 sqM) Glucose (74-99) mg/dL Calcium (8.4-10.2) mg/dL Magnesium (1.6-2.3) mg/dL Total Bilirubin (0.2-1.3) mg/dL AST (14-36) U/L ALT (9-52) U/L Alkaline Phosphatase (38-126) U/L Total Creatine Kinase (30-135) U/L CK-MB (CK-2) (0.0-2.4) ng/mL CK-MB (CK-2) Rel Index Troponin I (0.000-0.034) ng/mL Total Protein (6.3-8.2) g/dL Albumin (3.5-5.0) g/dL Blood Type O Positive Blood Type Recheck O Pos Antibody Screen NEGATIVE Spec Expiration Date 05/02/20172304 Disposition Clinical Impression: Thrombocytopenia Disposition: ADMITTED IP TO THIS HOSP Condition: Fair
[2017-04-29] MEDS ORDERED: MORPHINE SULFATE 2 MG/ML SYRINGE IVP ONE (17:26)
[2017-04-29 18:17] LABS: Basophils # (A) 0.1 k/uL (0-0.2); Basophils % (A) 1 %; Eosinophils # (A) 0.2 k/uL (0-0.7); Eosinophils % (A) 3 %; Lymphocytes # (A) 2.3 k/uL (1.0-4.8); Lymphocytes % (A) 35 %; MCH 31.4 pg (25.0-35.0); MCHC 33.6 g/dL (31.0-37.0); MCV 93.5 fL (80.0-100.0); Monocytes # (A) 0.4 k/uL (0-1.0); Monocytes % (A) 6 %; Neutrophils # (A) 3.5 k/uL (1.3-7.7); Neutrophils % (A) 54 %; RDW 14.4 % (11.5-15.5)
[2017-04-29 18:21] LABS: WBC 7.1 k/uL (3.8-10.6)
[2017-04-29 18:22] LABS: HCT 39.4 % (34.0-46.0); HGB 13.2 gm/dL (11.4-16.0); RBC 4.21 m/uL (3.80-5.40)
[2017-04-29 18:23] LABS: Platelet Count 12 k/uL (150-450)
[2017-04-29] MEDS ORDERED: methylPREDNISolone SOD SUCCI 40 MG/ML 1 ML VIAL IV STA (19:07)
[2017-04-29 20:14] LABS: Glucose,Whole Blood 271 mg/dL (75-99)
[2017-04-29] MEDS ORDERED: INFLUENZA VACCINE (6 MOS+) 60 MCG/0.5 ML SYRINGE IM ONE (21:06)
[2017-04-29] MEDS ORDERED: PNEUMOCOCCAL VACC-PNEUMOVAX 23 25 MCG/0.5 ML VIAL IM ONE (21:07)
[2017-04-30] MEDS: MORPHINE SULFATE 2 MG/ML SYRINGE IVP PRN ×3 (01:01→09:01)
[2017-04-30] MEDS: methylPREDNISolone SOD SUCCI 40 MG/ML 1 ML VIAL IV SCH ×3 (01:03→17:01)
[2017-04-30 07:31] LABS: Glucose,Whole Blood 223 mg/dL (75-99)
[2017-04-30] MEDS ORDERED: INSULIN ASPART 100 UNIT/ML 1 ML 10 ML VIAL SQ ONE ×3 (08:30→20:44)
[2017-04-30] MEDS: metFORMIN 500 MG TAB PO SCH ×2 (08:53→21:03)
[2017-04-30] MEDS ORDERED: ALBUTEROL NEBULIZED 2.5 MG/3 ML INHALATION PRN ×2 (12:08→19:27)
[2017-04-30 12:23] LABS: Glucose,Whole Blood 111 mg/dL (75-99)
[2017-04-30] MEDS: ALBUTEROL NEBULIZED 2.5 MG/3 ML INHALATION SCH ×3 (13:20→19:37)
[2017-04-30] MEDS: HYDROcodone/APAP 10-325MG 1 EACH TAB PO PRN ×3 (13:57→22:01)
--- NOTE | 2017-04-30 14:20 | P.HPIM ---
History of Present Illness 51-year-old [place] female was admitted to my service because of thrombocytopenia. Patient was sent in to the hospital because of abnormal labs of low platelet count. Patient does have liver disease chronic liver disease from alcohol use and hepatitis C INR is 1.1 patient is not on any medication that causes thrombocytopenia patient is not on any DVD prophylaxis with heparin and aspirin at this time. Patient denied any blood in the stools, hemoglobin is fairly stable compared to yesterday, patient denied any shortness of breath although per exam patient has rhonchus breath sounds patient may have bronchitis patient was recently treated for H influenza patient does have history of COPD is wheezing at this point of time patient will be started on systemic steroids in the form of oral steroids and azithromycin for bronchitis and patient will be discharged back to subacute rehabilitation on home with home care. Patient magnesium is low which will be supplemented because of her previous history of alcoholism. Patient is pain is better controlled at this point of time. Review of Systems REVIEW OF SYSTEMS: CONSTITUTIONAL: No fever, no malaise, no fatigue. HEENT: No recent visual problems or hearing problems. Denied any sore throat. CARDIOVASCULAR: No chest pain, orthopnea, PND, no palpitations, no syncope. PULMONARY: No shortness of breath, no cough, no hemoptysis. GASTROINTESTINAL: No diarrhea, no nausea, no vomiting, no abdominal pain. Normoactive bowel sounds. NEUROLOGICAL: No headaches, no weakness, no numbness. HEMATOLOGICAL: Denies any bleeding or petechiae. GENITOURINARY: Denies any burning micturition, frequency, or urgency. MUSCULOSKELETAL/RHEUMATOLOGICAL: Denies any joint pain, swelling, or any muscle pain. ENDOCRINE: Denies any polyuria or polydipsia. The rest of the 14-point review of systems is negative. Past Medical History Past Medical History: CVA/TIA, Diabetes Mellitus, Hyperlipidemia, Hypertension, Liver Disease Additional Past Medical History / Comment(s): "past alcoholism quit when she started heroin and quit heroin , "hepatitis b and c", stroke in with right sided weakness and stated her rt foot drags a bit. 04-03-17 bimalleolar lt ankle fx(sx) done -no weight bearing on lt foot. History of Any Multi-Drug Resistant Organisms: None Reported Past Surgical History: Cholecystectomy, Tonsillectomy, Tubal Ligation Additional Past Surgical History / Comment(s): esophageal surgery, lt ankle sx Past Anesthesia/Blood Transfusion Reactions: Motion Sickness, Postoperative Nausea & Vomiting (PONV) Smoking Status: Former smoker - Past Family History Mother Additional Family Medical History / Comment(s): "chorea bill disease" Father Family Medical History: Liver Disease Additional Family Medical History / Comment(s): alcoholic Medications and Allergies Home Medications Medication Instructions Recorded Confirmed Type Venlafaxine HCl [Effexor XR] 300 mg PO QAM 03/31/16 04/29/17 History Lisinopril [Prinivil] 10 mg PO DAILY@0800 06/16/16 04/29/17 History OLANZapine [ZyPREXA] 20 mg PO HS 06/16/16 04/29/17 History metFORMIN HCL [Glucophage] 500 mg PO BID 06/16/16 04/29/17 History Albuterol Inhaler [Ventolin Hfa 1 puff INHALATION RT-Q6H PRN 04/29/17 04/29/17 History Inhaler] Albuterol Nebulized [Ventolin 2.5 mg INHALATION RT-Q6H 04/29/17 04/29/17 History Nebulized] Fluticasone/Vilanterol [Breo 1 inhalation PO Q24HR 04/29/17 04/29/17 History Ellipta 100-25 Mcg Inhaler] HYDROcodone/APAP 10-325MG [[place] 1 - 2 tab PO Q4H PRN 04/29/17 04/29/17 History 10-325] Nicotine 21Mg/24Hr Patch [Habitrol 1 each TRANSDERM DAILY@0800 04/29/17 History 21Mg/24Hr Patch] Sennosides [Senokot] 8.6 mg PO BID@0800,1600 04/29/17 04/29/17 History Thiamine [Vitamin B-1] 100 mg PO BID@0800,1600 04/29/17 04/29/17 History glipiZIDE [Glucotrol] 7.5 mg PO BID@0800,1600 04/29/17 04/29/17 History Azithromycin [Zithromax Tri-Guilherme] 500 mg PO DAILY #5 tab 04/30/17 Rx Tiotropium [place] [Spiriva] 1 cap INHALATION DAILY #1 device 02/02/18 Rx predniSONE 10 mg PO DAILY #30 tab 04/30/17 Rx Allergies Allergy/AdvReac Type Severity Reaction Status Date / Time hydromorphone HCl Allergy Unknown Rash/Hives Verified 04/29/17 15:49 [From Dilaudid] Physical Exam Vitals: Vital Signs Temp Pulse Pulse Resp BP BP Pulse Ox 04/30/17 07:00 97.4 F L 91 16 128/70 93 L 04/30/17 00:00 16 04/29/17 23:00 97.8 F 94 16 129/79 92 L 04/29/17 19:20 90 18 136/74 94 L 04/29/17 18:12 88 18 122/75 95 04/29/17 17:35 98 18 169/83 95 04/29/17 16:38 93 18 138/82 95 04/29/17 15:32 98.1 F 92 18 131/73 95 Intake and Output 04/29/17 04/30/17 04/30/17 22:59 06:59 14:59 Intake Total 710 990 Balance 710 990 Intake: Intake, IV Titration 400 Amount Sodium Chloride 0.9% 1, 400 000 ml @ 50 mls/hr IV . Q20H STA Rx#:[id number] Oral 710 590 Other: Voiding Method Bedside Commode Bedside Commode Incontinent Incontinent # Voids 1 4 Weight 77.111 kg PHYSICAL EXAMINATION: GENERAL: The patient is alert and oriented x3, not in any acute distress. Well developed, well nourished. HEENT: Pupils are round and equally reacting to light. EOMI. No scleral icterus. No conjunctival pallor. Normocephalic, atraumatic. No pharyngeal erythema. No thyromegaly. CARDIOVASCULAR: S1 and S2 present. No murmurs, rubs, or gallops. PULMONARY: Rhonchus breath sounds and some expiratory wheezing was appreciated ABDOMEN: Soft, nontender, nondistended, normoactive bowel sounds. No palpable organomegaly. MUSCULOSKELETAL: No joint swelling or deformity. EXTREMITIES: No cyanosis, clubbing, or pedal edema. NEUROLOGICAL: Gross neurological examination did not reveal any focal deficits. SKIN: No rashes. Results CBC & Chem 7: 04/29/17 18:07 04/29/17 16:05 Labs: Abnormal Lab Results - Last 24 Hours (Table) 0204/29/17 04/29/17 Range/Units 16:05 16:05 16:05 Plt Count 11 L* (150-450) k/uL BUN 18 H (7-17) mg/dL Glucose 190 H (74-99) mg/dL POC Glucose (mg/dL) (75-99) mg/dL Magnesium 1.4 L (1.6-2.3) mg/dL Total Creatine Kinase <20 L (30-135) U/L 04/29/17 04/29/17 04/30/17 Range/Units 18:07 20:12 07:30 Plt Count 12 L* (150-450) k/uL BUN (7-17) mg/dL Glucose (74-99) mg/dL POC Glucose (mg/dL) 271 H 223 H (75-99) mg/dL Magnesium (1.6-2.3) mg/dL Total Creatine Kinase (30-135) U/L 04/30/17 Range/Units 12:03 Plt Count (150-450) k/uL BUN (7-17) mg/dL Glucose (74-99) mg/dL POC Glucose (mg/dL) 111 H (75-99) mg/dL Magnesium (1.6-2.3) mg/dL Total Creatine Kinase (30-135) U/L Assessment and Plan Plan: -Thrombocytopenia most probably related to her chronic liver disease but patient will be referred to Dr. Gilbert to assess for ITP as an outpatient patient at present is not bleeding will not require hospitalization. -Severe tracheal bronchitis for which patient will be Started on Azithromycin -COPD with Some Exacerbation -History of chronic liver disease from her alcoholism and hepatitis patient will need to follow with gastroneurology as an outpatient -Recent ankle fracture patient pain is well controlled at this point of time -Type 2 diabetes mellitus -CVAT a -For her psychiatric issues including PTSD and bipolar disorder continue her home medications, reviewed the literature and they're not known to cause thrombocytopenia either
--- NOTE | 2017-04-30 14:21 | P.DS ---
Providers Date of admission: 04/29/17 18:16 Attending physician: Joel Lopez Consults: 04/29/17 18:15 Consult Physician Routine Consulting Provider: Kyle Gilbert Consult Reason/Comments: thrombocytopenia Do you want consulting provider notified?: Yes Primary care physician: [facility] Course: Please refer to my HPI Patient Condition at Discharge: Fair Plan - Discharge Summary Discharge Rx Participant: No New Discharge Prescriptions: New Azithromycin [Zithromax Tri-Guilherme] 500 mg PO DAILY #5 tab predniSONE 10 mg PO DAILY #30 tab Tiotropium [place] [Spiriva] 1 cap INHALATION DAILY #1 device Discontinued Oseltamivir [Tamiflu] 75 mg PO HS No Action Venlafaxine HCl [Effexor XR] 300 mg PO QAM metFORMIN HCL [Glucophage] 500 mg PO BID OLANZapine [ZyPREXA] 20 mg PO HS Lisinopril [Prinivil] 10 mg PO DAILY@0800 Albuterol Nebulized [Ventolin Nebulized] 2.5 mg INHALATION RT-Q6H HYDROcodone/APAP 10-325MG [[place] 10-325] 1 - 2 tab PO Q4H PRN PRN Reason: Pain Thiamine [Vitamin B-1] 100 mg PO BID@0800,1600 Sennosides [Senokot] 8.6 mg PO BID@0800,1600 glipiZIDE [Glucotrol] 7.5 mg PO BID@0800,1600 Nicotine 21Mg/24Hr Patch [Habitrol 21Mg/24Hr Patch] 1 each TRANSDERM DAILY@ 0800 Fluticasone/Vilanterol [Breo Ellipta 100-25 Mcg Inhaler] 1 inhalation PO Q24HR Albuterol Inhaler [Ventolin Hfa Inhaler] 1 puff INHALATION RT-Q6H PRN PRN Reason: Shortness Of Breath Or Wheezing Discharge Medication List Venlafaxine HCl [Effexor XR] 300 mg PO QAM 03/31/16 [History] Lisinopril [Prinivil] 10 mg PO DAILY@0800 06/16/16 [History] OLANZapine [ZyPREXA] 20 mg PO HS 06/16/16 [History] metFORMIN HCL [Glucophage] 500 mg PO BID 06/16/16 [History] Albuterol Inhaler [Ventolin Hfa Inhaler] 1 puff INHALATION RT-Q6H PRN 04/29/17 [ History] Albuterol Nebulized [Ventolin Nebulized] 2.5 mg INHALATION RT-Q6H 04/29/17 [ History] Fluticasone/Vilanterol [Breo Ellipta 100-25 Mcg Inhaler] 1 inhalation PO Q24HR 04/29/17 [History] HYDROcodone/APAP 10-325MG [[place] 10-325] 1 - 2 tab PO Q4H PRN 04/29/17 [History] Nicotine 21Mg/24Hr Patch [Habitrol 21Mg/24Hr Patch] 1 each TRANSDERM DAILY@0800 04/29/17 [History] Sennosides [Senokot] 8.6 mg PO BID@0800,1600 04/29/17 [History] Thiamine [Vitamin B-1] 100 mg PO BID@0800,1600 04/29/17 [History] glipiZIDE [Glucotrol] 7.5 mg PO BID@0800,1600 04/29/17 [History] Azithromycin [Zithromax Tri-Guilherme] 500 mg PO DAILY #5 tab 04/30/17 [Rx] Tiotropium [place] [Spiriva] 1 cap INHALATION DAILY #1 device 04/30/17 [Rx] predniSONE 10 mg PO DAILY #30 tab 04/30/17 [Rx] Follow up Appointment(s)/Referral(s): Kyle Gilbert MD [STAFF PHYSICIAN] - 1 Week Liborio Belle DO [Primary Care Provider] - 3 Days Discharge Disposition: TRANSFER TO SNF/ECF
[2017-04-30] MEDS: MAGNESIUM SULFATE-D5W PMX 1 GM in DEXTROSE/WATER 1 100ML.BAG IVPB SCH ×2 (15:00→16:11)
--- NOTE | 2017-04-30 15:33 | XR ---
EXAMINATION TYPE: XR chest 2V DATE OF EXAM: 04/30/2017 COMPARISON: Prior chest x-ray 04/02/2017 HISTORY: Pneumonia TECHNIQUE: Frontal and lateral views of the chest are obtained. FINDINGS: There is no focal air space opacity, pleural effusion, or pneumothorax seen. The cardiac silhouette size is within normal limits. Patient is rotated. 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 The osseous structures are intact. There is bronchial wall thickening. IMPRESSION: Correlate for bronchitis, reactive airways disease.
[2017-04-30] MEDS: THIAMINE 100 MG TAB PO SCH (16:55)
[2017-04-30 17:17] LABS: Glucose,Whole Blood 306 mg/dL (75-99)
[2017-04-30] MEDS: INSULIN ASPART 100 UNIT/ML 1 ML 10 ML VIAL SQ SCH ×2 (17:23→20:54)
--- NOTE | 2017-04-30 19:06 | P.CONS ---
History of Present Illness - Reason for Consult Consult date: 04/30/17 thrombocytopenia - History of Present Illness the patient is a 51-year-old white female with multiple medical problems. These include a history of alcohol abuse, as well as hepatitis B and C. The patient was admitted in early 04/15 witha left ankle fracture. She underwent surgery and was discharged subsequently. During that hospitalization she did receive heparin. Her platelet countwas slightly lower than normal, but states stable between 100 to 150. repeat CBC as an outpatient on 04/20/17 showed platelet count in the 200 range. The patient was in subacute rehabilitation and had labs drawn which showed a drop in platelet count to 11. she was therefore sent in to the hospital. The case was discussed with the emergency room physician, and platelet count repeated in citrate tube. This confirmed a count of 12. she was therefore admitted, and started on IV steroids. She denied any history of significant bleeding. She states that she is noted small amounts of blood in the stool off and on but that has been a chronic phenomena and has not changed. She denied any prior history of blood related problems.she has not had any additional alcohol since her surgery Review of Systems Constitutional: Reports weakness Eyes: denies blurred vision, denies pain Ears: deny: decreased hearing, ear discharge, earache, tinnitus Ears, nose, mouth and throat: Denies headache, Denies sore throat Cardiovascular: Reports decreased exercise tolerance, Denies chest pain, Denies shortness of breath Respiratory: Denies cough Gastrointestinal: Reports as per HPI, Reports hematochezia (mmild, chronic-- possibly hemorrhoidal) Genitourinary: Denies dysuria, Denies hematuria Menstruation: Reports postmenopausal Musculoskeletal: Reports as per HPI, Reports muscle weakness Musculoskeletal: left: ankle pain, ankle stiffness Integumentary: Denies pruritus, Denies rash Neurological: Denies numbness, Denies weakness Psychiatric: Reports as per HPI (istory of alcohol abuse) Endocrine: Denies fatigue, Denies weight change Hematologic/Lymphatic: Reports as per HPI Past Medical History Past Medical History: CVA/TIA, Diabetes Mellitus, Hyperlipidemia, Hypertension, Liver Disease Additional Past Medical History / Comment(s): "past alcoholism quit when she started heroin and quit heroin , "hepatitis b and c", stroke in with right sided weakness and stated her rt foot drags a bit. 04-03-17 bimalleolar lt ankle fx(sx) done -no weight bearing on lt foot. History of Any Multi-Drug Resistant Organisms: None Reported Past Surgical History: Cholecystectomy, Tonsillectomy, Tubal Ligation Additional Past Surgical History / Comment(s): esophageal surgery, lt ankle sx Past Anesthesia/Blood Transfusion Reactions: Motion Sickness, Postoperative Nausea & Vomiting (PONV) Smoking Status: Former smoker - Past Family History Mother Additional Family Medical History / Comment(s): "chorea bill disease" Father Family Medical History: Liver Disease Additional Family Medical History / Comment(s): alcoholic Medications and Allergies Home Medications Medication Instructions Recorded Confirmed Type Venlafaxine HCl [Effexor XR] 300 mg PO QAM 03/31/16 04/29/17 History Lisinopril [Prinivil] 10 mg PO DAILY@0800 06/16/16 04/29/17 History OLANZapine [ZyPREXA] 20 mg PO HS 06/16/16 04/29/17 History metFORMIN HCL [Glucophage] 500 mg PO BID 06/16/16 04/29/17 History Albuterol Inhaler [Ventolin Hfa 1 puff INHALATION RT-Q6H PRN 04/29/17 04/29/17 History Inhaler] Albuterol Nebulized [Ventolin 2.5 mg INHALATION RT-Q6H 04/29/17 04/29/17 History Nebulized] Fluticasone/Vilanterol [Breo 1 inhalation PO Q24HR 04/29/17 04/29/17 History Ellipta 100-25 Mcg Inhaler] HYDROcodone/APAP 10-325MG [[place] 1 - 2 tab PO Q4H PRN 04/29/17 04/29/17 History 10-325] Nicotine 21Mg/24Hr Patch [Habitrol 1 each TRANSDERM DAILY@0800 04/29/17 History 21Mg/24Hr Patch] Sennosides [Senokot] 8.6 mg PO BID@0800,1600 04/29/17 04/29/17 History Thiamine [Vitamin B-1] 100 mg PO BID@0800,1600 /04/1504/29/17 History glipiZIDE [Glucotrol] 7.5 mg PO BID@0800,1600 04/29/17 04/29/17 History Azithromycin [Zithromax Tri-Guilherme] 500 mg PO DAILY #5 tab 04/30/17 Rx Tiotropium [place] [Spiriva] 1 cap INHALATION DAILY #1 device 04/30/17 Rx predniSONE 10 mg PO DAILY #30 tab 04/30/17 Rx Allergies Allergy/AdvReac Type Severity Reaction Status Date / Time hydromorphone HCl Allergy Unknown Rash/Hives Verified 04/29/17 15:49 [From Dilaudid] Physical Exam Vitals: Vital Signs Temp Pulse Pulse Resp BP BP Pulse Ox 04/30/17 15:00 97.7 F 89 16 120/81 96 04/30/17 07:00 97.4 F L 91 16 128/70 93 L 04/30/17 00:00 16 04/29/17 23:00 97.8 F 94 16 129/79 92 L 04/29/17 19:20 90 18 136/74 94 L Intake and Output 04/30/17 04/30/17 04/30/17 06:59 14:59 22:59 Intake Total 990 580 Balance 990 580 Intake: Intake, IV Titration 400 100 Amount Magnesium Sulfate-D5w Pmx 100 1 gm In Dextrose/Water 1 100ml.bag @ 100 mls/hr IVPB Q1H [facility]LA[facility] Rx#: [id number] Sodium Chloride 0.9% 1, 400 000 ml @ 50 mls/hr IV . Q20H STA Rx#:[id number] Oral 590 480 Other: Voiding Method Bedside Commode Bedside Commode Bedside Commode Incontinent Incontinent # Voids 4 4 4 # Bowel Movements 1 1 Weight 77.111 kg Patient Weight 05/01/17 06:59 Weight 77.111 kg - Constitutional General appearance: no acute distress - EENT Eyes: EOMI, PERRLA ENT: hearing grossly normal, normal oropharynx - Neck Neck: no lymphadenopathy Thyroid: bilateral: normal size - Respiratory Respiratory: bilateral: CTA - Cardiovascular Rhythm: regular Heart sounds: normal: S1, S2 - Gastrointestinal General gastrointestinal: normal bowel sounds, soft - Integumentary mild petechiae noted in the distal lower extremity around the ankle area - Neurologic Neurologic: CNII-XII intact - Musculoskeletal Musculoskeletal: strength equal bilaterally - Psychiatric Psychiatric: A&O x's 3, appropriate affect Results CBC & Chem 7: 04/29/17 18:07 04/29/17 16:05 Labs: Abnormal Lab Results - Last 24 Hours (Table) 04/29/17 04/30/17 04/30/17 Range/Units 20:12 07:30 12:03 POC Glucose (mg/dL) 271 H 223 H 111 H (75-99) mg/dL 04/30/17 Range/Units 17:14 POC Glucose (mg/dL) 306 H (75-99) mg/dL Comments: ankle x-rayreport reviewed Chest x-ray: report reviewed US - abdomen: report reviewed Assessment and Plan (1) Thrombocytopenia Narrative/Plan: the patient has had very mild chronic thrombo-cytopenia previously, likely due to her history of alcohol use and hepatitis C. However she apparently has never had low platelets to this degree before. This represents an acute change from her prior levels within the last few weeks, as noted in the HPI. The patient denies any symptoms. On exam she only had a mild petechial rash around the ankle. The patient was likely exposed to heparin during her previous hospitalization. While the timeline is appropriate, heparin-induced thrombo- cytopenia is unlikely to cause platelet counts below 40-50,000. 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 Case was discussed with the admitting service. The patient has already been started on steroids ( she also has bronchitis, for which steroids were felt to be required anyway). I will order IVIG. As a precaution HIT testing had been recommended to the ER but it does not appear to have been sent. This will be ordered. Her platelet counts currently are in a safe range, since she has no obvious evidence of bleeding. As discussed with the admitting service, DVT prophylaxis will be held until platelet counts increased to an appropriate level. Assuming a reasonable response, the plan is for the patient to be discharged on a steroid taper with follow-up in the outpatient setting. workup for underlying causes will also be ordered Current Visit: Yes Status: Acute Code(s): D69.6 - THROMBOCYTOPENIA, UNSPECIFIED SNOMED Code(s): 490261457
[2017-04-30] MEDS ORDERED: IMMUNE GLOBULIN (HUMAN-IGG) 1 GM/10 ML VIAL IV ONE (19:08)
[2017-04-30] MEDS: SYMBICORT 80-4.5 MCG INHALER INHALATION SCH ×2 (19:19→19:38)
[2017-04-30 19:58] LABS: Glucose,Whole Blood 389 mg/dL (75-99)
[2017-04-30] MEDS ORDERED: IMMUNE GLOBULIN (HUMAN-IGG) 30 GM in EMPTY BAG 1 BAG IV ONE (20:00)
[2017-04-30] MEDS: OLANZapine 10 MG TAB PO SCH (21:03)
[2017-04-30] MEDS ORDERED: IMMUNE GLOBULIN (HUMAN-IGG) 5 GM in EMPTY BAG 1 BAG IV ONE (22:00)
[2017-05-01] MEDS: HYDROcodone/APAP 10-325MG 1 EACH TAB PO PRN ×5 (03:42→20:18)
[2017-05-01 06:58] LABS: Glucose,Whole Blood 132 mg/dL (75-99)
[2017-05-01] MEDS: VENLAFAXINE HCL ER 150 MG CAP PO SCH (07:55)
[2017-05-01] MEDS: metFORMIN 500 MG TAB PO SCH ×2 (07:56→20:21)
[2017-05-01] MEDS: THIAMINE 100 MG TAB PO SCH ×2 (07:56→16:31)
[2017-05-01] MEDS: predniSONE 20 MG TAB PO SCH (07:56)
[2017-05-01] MEDS: LISINOPRIL 10 MG TAB PO SCH (07:56)
[2017-05-01] MEDS: INSULIN ASPART 100 UNIT/ML 1 ML 10 ML VIAL SQ SCH ×4 (07:57→20:21)
[2017-05-01] MEDS: NICOTINE 21MG/24HR PATCH TRANSDERM SCH ×2 (07:57→08:19)
[2017-05-01] MEDS: ALBUTEROL NEBULIZED 2.5 MG/3 ML INHALATION SCH ×3 (08:54→20:17)
[2017-05-01 10:43] LABS: HCT 36.9 % (34.0-46.0); HGB 12.4 gm/dL (11.4-16.0); MCH 31.1 pg (25.0-35.0); MCHC 33.6 g/dL (31.0-37.0); MCV 92.5 fL (80.0-100.0); Mean Platelet Volume 9.8; RBC 3.99 m/uL (3.80-5.40); RDW 14.1 % (11.5-15.5); WBC 5.6 k/uL (3.8-10.6)
[2017-05-01 10:45] LABS: Platelet Count 42 k/uL (150-450)
[2017-05-01 10:48] LABS: Anion Gap 10 mmol/L; Blood Urea Nitrogen 14 mg/dL (7-17); Calcium 8.8 mg/dL (8.4-10.2); Carbon Dioxide 27 mmol/L (22-30); Chloride 104 mmol/L (98-107); Glucose 151 mg/dL (74-99); Sodium 141 mmol/L (137-145)
[2017-05-01 11:23] LABS: Glucose,Whole Blood 394 mg/dL (75-99)
[2017-05-01 11:23] LABS: Glucose,Whole Blood 412 mg/dL (75-99)
[2017-05-01 12:13] LABS: Protein, Total 7.3 g/dL (6.2-8.2); Rheumatoid Factor 9 IU/mL (0-15)
--- NOTE | 2017-05-01 12:14 | P.PN ---
Subjective 51-year-old female admitted for evaluation for thrombocytopenia my suspicion is low for ITP please refer to oncologist dictation for further details. Patient is on systemic steroids for COPD exacerbation patient respiratory status has worsened compared to yesterday patient has severe tracheobronchitis for which patient will be started on doxycycline continue with inhalational treatments. We're awaiting insurance approval for her rehabilitation. Constitutional: Denied any fatigue denied any fever. Cardio vascular: denied any chest pain, palpitations Gastrointestinal denied any nausea vomiting Pulmonary: Denied any shortness of breath cough Neurologic denied any new focal deficits Objective - Vital Signs Vital signs: Vital Signs Temp 97.0 F L 05/01/17 07:00 Pulse 84 05/01/17 12:05 Resp 18 05/01/17 07:00 BP 135/84 05/01/17 07:00 Pulse Ox 96 05/01/17 07:00 Intake & Output 04/30/17 05/01/17 05/01/17 18:59 06:59 18:59 Intake Total 580 Balance 580 Weight 77.111 kg Intake: Intake, IV Titration 100 Amount Magnesium Sulfate-D5w Pmx 100 1 gm In Dextrose/Water 1 100ml.bag @ 100 mls/hr IVPB Q1H [facility] Rx#: [id number] Oral 480 Other: Voiding Method Bedside Commode Bedside Commode Bedside Commode # Voids 4 1 # Bowel Movements 1 - Exam PHYSICAL EXAMINATION: GENERAL: The patient is alert and oriented x3, not in any acute distress. Well developed, well nourished. HEENT: Pupils are round and equally reacting to light. EOMI. No scleral icterus. No conjunctival pallor. Normocephalic, atraumatic. No pharyngeal erythema. No thyromegaly. CARDIOVASCULAR: S1 and S2 present. No murmurs, rubs, or gallops. PULMONARY: Rhonchus breath sounds and some expiratory wheezing was appreciated ABDOMEN: Soft, nontender, nondistended, normoactive bowel sounds. No palpable organomegaly. MUSCULOSKELETAL: No joint swelling or deformity. EXTREMITIES: No cyanosis, clubbing, or pedal edema. NEUROLOGICAL: Gross neurological examination did not reveal any focal deficits. SKIN: No rashes. - Labs CBC & Chem 7: 05/01/17 07:07 05/01/17 07:07 Labs: Abnormal Lab Results - Last 24 Hours (Table) 02/05/1604/30/17 04/30/17 Range/Units 12:03 17:14 19:56 Plt Count (150-450) k/uL Glucose (74-99) mg/dL POC Glucose (mg/dL) 111 H 306 H 389 H (75-99) mg/dL 05/01/17 05/01/17 05/01/17 Range/Units 06:52 07:07 07:07 Plt Count 42 L* D (150-450) k/uL Glucose 151 H (74-99) mg/dL POC Glucose (mg/dL) 132 H (75-99) mg/dL 05/01/17 05/01/17 Range/Units 11:20 11:21 Plt Count (150-450) k/uL Glucose (74-99) mg/dL POC Glucose (mg/dL) 394 H 412 H (75-99) mg/dL Assessment and Plan Plan: -Thrombocytopenia most probably related to her chronic liver disease but patient will be referred to Dr. Gilbert to assess for ITP as an outpatient patient at present is not bleeding will not require hospitalization. -Severe tracheal bronchitis for which patient will be Started on Azithromycin -COPD with acute exacerbation patient was started on doxycycline continue with systemic steroids -History of chronic liver disease from her alcoholism and hepatitis patient will need to follow with gastroneurology as an outpatient -Recent ankle fracture patient pain is well controlled at this point of time -Type 2 diabetes mellitus controlled blood sugars secondary to systemic steroids which we taper down to oral steroids hopefully now blood sugars will improve and patient will be started on Lantus as well. Patient will be started on diabetic diet -CVA in the past -For her psychiatric issues including PTSD and bipolar disorder continue her home medications, reviewed the literature and they're not known to cause thrombocytopenia either
[2017-05-01] MEDS: DOXYCYCLINE 50 MG CAP PO SCH ×2 (12:41→22:06)
[2017-05-01 17:11] LABS: Glucose,Whole Blood 310 mg/dL (75-99)
[2017-05-01 20:03] LABS: Glucose,Whole Blood 346 mg/dL (75-99)
[2017-05-01] MEDS ORDERED: INSULIN ASPART 100 UNIT/ML 1 ML 10 ML VIAL SQ ONE (20:12)
[2017-05-01] MEDS: OLANZapine 10 MG TAB PO SCH (20:21)
[2017-05-01] MEDS: INSULIN DETEMIR 100 UNIT/ML 10 ML VIAL SQ SCH (22:06)
[2017-05-02] MEDS: HYDROcodone/APAP 10-325MG 1 EACH TAB PO PRN ×5 (01:18→20:06)
[2017-05-02 07:00] LABS: Glucose,Whole Blood 111 mg/dL (75-99)
[2017-05-02 07:05] LABS: HCT 37.4 % (34.0-46.0); HGB 12.6 gm/dL (11.4-16.0); MCHC 33.6 g/dL (31.0-37.0); MCV 95.3 fL (80.0-100.0); Mean Platelet Volume 8.2; RBC 3.92 m/uL (3.80-5.40); WBC 7.2 k/uL (3.8-10.6)
[2017-05-02 07:16] LABS: Platelet Count 96 k/uL (150-450)
[2017-05-02] MEDS: ALBUTEROL NEBULIZED 2.5 MG/3 ML INHALATION SCH ×3 (07:23→19:48)
[2017-05-02] MEDS: SYMBICORT 80-4.5 MCG INHALER INHALATION SCH ×2 (07:31→19:48)
[2017-05-02] MEDS: VENLAFAXINE HCL ER 150 MG CAP PO SCH (07:46)
[2017-05-02] MEDS: predniSONE 20 MG TAB PO SCH (07:46)
[2017-05-02] MEDS: metFORMIN 500 MG TAB PO SCH ×2 (07:46→20:07)
[2017-05-02] MEDS: LISINOPRIL 10 MG TAB PO SCH (07:46)
[2017-05-02] MEDS: INSULIN ASPART 100 UNIT/ML 1 ML 10 ML VIAL SQ SCH ×4 (07:47→22:44)
[2017-05-02] MEDS: THIAMINE 100 MG TAB PO SCH ×2 (07:47→17:03)
[2017-05-02] MEDS: DOXYCYCLINE 50 MG CAP PO SCH ×2 (07:47→20:07)
[2017-05-02] MEDS: NICOTINE 21MG/24HR PATCH TRANSDERM SCH (07:47)
[2017-05-02 11:36] LABS: Glucose,Whole Blood 265 mg/dL (75-99)
--- NOTE | 2017-05-02 12:46 | P.PN ---
Subjective 51-year-old female admitted for evaluation for thrombocytopenia my suspicion is low for ITP please refer to oncologist dictation for further details. Patient is on systemic steroids for COPD exacerbation patient respiratory status has worsened compared to yesterday patient has severe tracheobronchitis for which patient will be started on doxycycline continue with inhalational treatments. We're awaiting insurance approval for her rehabilitation. 05/02/2016 Patient respiratory status did improve still rhonchus breath sounds but improved compared to yesterday. Constitutional: Denied any fatigue denied any fever. Cardio vascular: denied any chest pain, palpitations Gastrointestinal denied any nausea vomiting Pulmonary: Denied any shortness of breath cough Neurologic denied any new focal deficits Objective - Vital Signs Vital signs: Vital Signs Temp 98.6 F 05/02/17 05:41 Pulse 84 05/02/17 12:03 Resp 18 05/02/17 05:41 BP 163/85 05/02/17 05:41 Pulse Ox 98 05/02/17 05:41 Intake & Output 05/01/17 05/02/17 05/02/17 18:59 06:59 18:59 Intake Total 1000 Output Total 2 Balance 1000 -2 Intake: Oral 1000 Output: Stool 2 Other: Voiding Method Bedside Commode Bedside Commode Bedside Commode # Voids 3 2 # Bowel Movements 1 - Exam PHYSICAL EXAMINATION: GENERAL: The patient is alert and oriented x3, not in any acute distress. Well developed, well nourished. HEENT: Pupils are round and equally reacting to light. EOMI. No scleral icterus. No conjunctival pallor. Normocephalic, atraumatic. No pharyngeal erythema. No thyromegaly. CARDIOVASCULAR: S1 and S2 present. No murmurs, rubs, or gallops. PULMONARY: Rhonchus breath sounds and some expiratory wheezing was appreciated I believe it's better than yesterday ABDOMEN: Soft, nontender, nondistended, normoactive bowel sounds. No palpable organomegaly. MUSCULOSKELETAL: No joint swelling or deformity. EXTREMITIES: No cyanosis, clubbing, or pedal edema. NEUROLOGICAL: Gross neurological examination did not reveal any focal deficits. SKIN: No rashes. - Labs CBC & Chem 7: 05/02/17 06:49 05/01/17 07:07 Labs: Abnormal Lab Results - Last 24 Hours (Table) 05/01/17 05/01/17 05/01/17 Range/Units 07:07 07:07 17:06 Plt Count (150-450) k/uL POC Glucose (mg/dL) 310 H (75-99) mg/dL Hemoglobin A1c 8.0 H (4.0-6.0) % Vitamin B12 1075.0 H (200.0-944.0) pg/mL GEREMIAS Screen POSITIVE H (NEGATIVE) Free [place] LC, Quant 2.73 H (0.33-1.94) mg/dL 05/01/17 05/02/17 05/02/17 Range/Units 20:00 06:49 06:59 Plt Count 96 L D (150-450) k/uL POC Glucose (mg/dL) 346 H 111 H (75-99) mg/dL Hemoglobin A1c (4.0-6.0) % Vitamin B12 (200.0-944.0) pg/mL GEREMIAS Screen (NEGATIVE) Free [place] LC, Quant (0.33-1.94) mg/dL 05/02/17 Range/Units 11:26 Plt Count (150-450) k/uL POC Glucose (mg/dL) 265 H (75-99) mg/dL Hemoglobin A1c (4.0-6.0) % Vitamin B12 (200.0-944.0) pg/mL GEREMIAS Screen (NEGATIVE) Free [place] LC, Quant (0.33-1.94) mg/dL Assessment and Plan Plan: -Thrombocytopenia most probably related to her chronic liver disease but patient will be referred to Dr. Gilbert to assess for ITP as an outpatient patient at present is not bleeding will not require hospitalization. -Severe tracheal bronchitis for which patient will be Started on Azithromycin -COPD with acute exacerbation patient was started on doxycycline continue with systemic steroids -History of chronic liver disease from her alcoholism and hepatitis patient will need to follow with gastroneurology as an outpatient -Recent ankle fracture patient pain is well controlled at this point of time -Type 2 diabetes mellitus elevated blood sugars due to systemic steroids continue present regimen with the sliding scale. -CVA in the past -For her psychiatric issues including PTSD and bipolar disorder continue her home medications, reviewed the literature and they're not known to cause thrombocytopenia either
[2017-05-02 16:46] LABS: Glucose,Whole Blood 345 mg/dL (75-99)
[2017-05-02] MEDS: OLANZapine 10 MG TAB PO SCH (20:07)
[2017-05-02 20:20] LABS: Glucose,Whole Blood 240 mg/dL (75-99)
--- NOTE | 2017-05-02 22:05 | P.PN ---
Subjective Progress Note Date: 05/01/17 the patient denies any new complaints. No history of any unusual bleeding or bruising, or petechiae. Objective - Vital Signs Vital signs: Vital Signs Temp 97.6 F 05/02/17 21:20 Pulse 90 05/02/17 21:20 Resp 16 05/02/17 21:20 BP 107/70 05/02/17 21:20 Pulse Ox 94 L 05/02/17 21:20 Intake & Output 05/02/17 05/02/17 05/03/17 06:59 18:59 06:59 Intake Total 1000 Output Total 2 Balance -2 1000 Intake: Oral 1000 Output: Stool 2 Other: Voiding Method Bedside Commode Bedside Commode # Voids 2 8 2 # Bowel Movements 1 - Constitutional General appearance: Present: no acute distress - EENT Eyes: Present: PERRLA ENT: Present: hearing grossly normal, normal oropharynx - Respiratory Respiratory: bilateral: CTA - Cardiovascular Rhythm: regular Heart sounds: normal: S1, S2 - Gastrointestinal General gastrointestinal: Present: normal bowel sounds, soft - Integumentary Integumentary: Present: normal - Neurologic Neurologic: Present: CNII-XII intact - Labs CBC & Chem 7: 05/02/17 06:49 05/01/17 07:07 Labs: Abnormal Lab Results - Last 24 Hours (Table) 05/01/17 05/01/17 05/02/17 Range/Units 07:07 07:07 06:49 Plt Count 96 L D (150-450) k/uL POC Glucose (mg/dL) (75-99) mg/dL Hemoglobin A1c 8.0 H (4.0-6.0) % Vitamin B12 1075.0 H (200.0-944.0) pg/mL GEREMIAS Screen POSITIVE H (NEGATIVE) Free [place] LC, Quant 2.73 H (0.33-1.94) mg/dL 05/02/17 05/02/17 05/02/17 Range/Units 06:59 11:26 16:45 Plt Count (150-450) k/uL POC Glucose (mg/dL) 111 H 265 H 345 H (75-99) mg/dL Hemoglobin A1c (4.0-6.0) % Vitamin B12 (200.0-944.0) pg/mL GEREMIAS Screen (NEGATIVE) Free [place] LC, Quant (0.33-1.94) mg/dL 05/02/17 Range/Units 20:14 Plt Count (150-450) k/uL POC Glucose (mg/dL) 240 H (75-99) mg/dL Hemoglobin A1c (4.0-6.0) % Vitamin B12 (200.0-944.0) pg/mL GEREMIAS Screen (NEGATIVE) Free [place] LC, Quant (0.33-1.94) mg/dL Assessment and Plan (1) Thrombocytopenia Narrative/Plan: the patient is tolerating the steroids well. Respiratory status is improved. Platelets have increased to 47. This is indicative of an ITP-type situation. Continue to monitor. Changed to by mouth steroids at the time of discharge and then start to taper with follow-up as an outpatient Current Visit: Yes Status: Acute Code(s): D69.6 - THROMBOCYTOPENIA, UNSPECIFIED SNOMED Code(s): 046836135
[2017-05-02] MEDS: INSULIN DETEMIR 100 UNIT/ML 10 ML VIAL SQ SCH (22:40)
[2017-05-03] MEDS: HYDROcodone/APAP 10-325MG 1 EACH TAB PO PRN ×4 (06:42→20:19)
[2017-05-03 07:36] LABS: Glucose,Whole Blood 94 mg/dL (75-99)
[2017-05-03] MEDS: INSULIN ASPART 100 UNIT/ML 1 ML 10 ML VIAL SQ SCH ×4 (08:55→22:05)
[2017-05-03] MEDS: NICOTINE 21MG/24HR PATCH TRANSDERM SCH (08:59)
[2017-05-03] MEDS: metFORMIN 500 MG TAB PO SCH ×2 (09:00→20:24)
[2017-05-03] MEDS: DOXYCYCLINE 50 MG CAP PO SCH ×2 (09:00→20:24)
[2017-05-03] MEDS: THIAMINE 100 MG TAB PO SCH ×2 (09:00→15:44)
[2017-05-03] MEDS: predniSONE 20 MG TAB PO SCH (09:00)
[2017-05-03] MEDS: LISINOPRIL 10 MG TAB PO SCH (09:00)
[2017-05-03] MEDS: VENLAFAXINE HCL ER 150 MG CAP PO SCH (09:01)
[2017-05-03] MEDS: ALBUTEROL NEBULIZED 2.5 MG/3 ML INHALATION SCH ×3 (09:09→19:53)
[2017-05-03] MEDS: SYMBICORT 80-4.5 MCG INHALER INHALATION SCH ×2 (09:10→19:53)
--- NOTE | 2017-05-03 11:05 | P.DS ---
Providers Date of admission: 04/29/17 18:16 Attending physician: Joel Lopez Consults: 04/29/17 18:15 Consult Physician Routine Consulting Provider: Kyle Gilbert Consult Reason/Comments: thrombocytopenia Do you want consulting provider notified?: Yes Primary care physician: [facility] Course: 51-year-old female admitted for evaluation for thrombocytopenia my suspicion is low for ITP please refer to oncologist dictation for further details. Patient is on systemic steroids for COPD exacerbation patient respiratory status has worsened compared to yesterday patient has severe tracheobronchitis for which patient will be started on doxycycline continue with inhalational treatments. We're awaiting insurance approval for her rehabilitation. 05/02/2016 Patient respiratory status did improve still rhonchus breath sounds but improved compared to yesterday. 05/03/2016 Patient is clinically doing well her respiratory status improved wheezing completely resolved rhonchus breath sounds resolved and the patient thrombocytopenia improved with steroids and hematology believes patient has ITP , idiopathic thrombocytopenic purpura PHYSICAL EXAMINATION: GENERAL: The patient is alert and oriented x3, not in any acute distress. Well developed, well nourished. HEENT: Pupils are round and equally reacting to light. EOMI. No scleral icterus. No conjunctival pallor. Normocephalic, atraumatic. No pharyngeal erythema. No thyromegaly. CARDIOVASCULAR: S1 and S2 present. No murmurs, rubs, or gallops. PULMONARY: Chest is clear to auscultation, no wheezing or crackles. ABDOMEN: Soft, nontender, nondistended, normoactive bowel sounds. No palpable organomegaly. MUSCULOSKELETAL: No joint swelling or deformity. EXTREMITIES: No cyanosis, clubbing, or pedal edema. NEUROLOGICAL: Gross neurological examination did not reveal any focal deficits. SKIN: No rashes. Assessment and Plan Plan: -Thrombocytopenia due to ITP and patient was started on systemic steroids will follow with Dr. Gilbert as an outpatient -Severe tracheal bronchitis for which patient will be Started on Azithromycin -COPD with acute exacerbation patient was started on azithromycin and will be discharged in his demise and systemic steroids -History of chronic liver disease from her alcoholism and hepatitis patient will need to follow with gastroneurology as an outpatient -Recent ankle fracture patient pain is well controlled at this point of time -Type 2 diabetes mellitus elevated blood sugars due to systemic steroids continue present regimen with the sliding scale. -CVA in the past -For her psychiatric issues including PTSD and bipolar disorder continue her home medications, reviewed the literature and they're not known to cause thrombocytopenia either Patient Condition at Discharge: Fair Plan - Discharge Summary Discharge Rx Participant: No New Discharge Prescriptions: New Azithromycin [Zithromax Tri-Guilherme] 500 mg PO DAILY #5 tab Tiotropium [place] [Spiriva] 1 cap INHALATION DAILY #1 device predniSONE 20 mg PO DIRECTED #46 tab HYDROcodone/APAP 10-325MG [[place] 10-325] 1 each PO Q4H PRN #30 tab PRN Reason: Pain Insulin Aspart [NovoLOG (formulary)] 0 unit SQ ACHS vial predniSONE 10 mg PO DAILY #30 tab Continue Venlafaxine HCl [Effexor XR] 300 mg PO QAM metFORMIN HCL [Glucophage] 500 mg PO BID OLANZapine [ZyPREXA] 20 mg PO HS Lisinopril [Prinivil] 10 mg PO DAILY@0800 Albuterol Nebulized [Ventolin Nebulized] 2.5 mg INHALATION RT-Q6H HYDROcodone/APAP 10-325MG [[place] 10-325] 1 - 2 tab PO Q4H PRN PRN Reason: Pain Thiamine [Vitamin B-1] 100 mg PO BID@0800,1600 Sennosides [Senokot] 8.6 mg PO BID@0800,1600 glipiZIDE [Glucotrol] 7.5 mg PO BID@0800,1600 Nicotine 21Mg/24Hr Patch [Habitrol] 1 each TRANSDERM DAILY@0800 Fluticasone/Vilanterol [Breo Ellipta 100-25 Mcg Inhaler] 1 inhalation PO Q24HR Albuterol Inhaler [Ventolin Hfa Inhaler] 1 puff INHALATION RT-Q6H PRN PRN Reason: Shortness Of Breath Or Wheezing Discontinued Oseltamivir [Tamiflu] 75 mg PO HS Discharge Medication List Venlafaxine HCl [Effexor XR] 300 mg PO QAM 03/31/16 [History] Lisinopril [Prinivil] 10 mg PO DAILY@0800 06/16/16 [History] OLANZapine [ZyPREXA] 20 mg PO HS 06/16/16 [History] metFORMIN HCL [Glucophage] 500 mg PO BID 06/16/16 [History] Albuterol Inhaler [Ventolin Hfa Inhaler] 1 puff INHALATION RT-Q6H PRN 04/29/17 [ History] Albuterol Nebulized [Ventolin Nebulized] 2.5 mg INHALATION RT-Q6H 04/29/17 [ History] Fluticasone/Vilanterol [Breo Ellipta 100-25 Mcg Inhaler] 1 inhalation PO Q24HR 04/29/17 [History] HYDROcodone/APAP 10-325MG [[place] 10-325] 1 - 2 tab PO Q4H PRN 04/29/17 [History] Nicotine 21Mg/24Hr Patch [Habitrol] 1 each TRANSDERM DAILY@0800 04/29/17 [ History] Sennosides [Senokot] 8.6 mg PO BID@0800,1600 04/29/17 [History] Thiamine [Vitamin B-1] 100 mg PO BID@0800,1600 04/29/17 [History] glipiZIDE [Glucotrol] 7.5 mg PO BID@0800,1600 04/29/17 [History] Azithromycin [Zithromax Tri-Guilherme] 500 mg PO DAILY #5 tab 04/30/17 [Rx] Tiotropium [place] [Spiriva] 1 cap INHALATION DAILY #1 device 04/30/17 [Rx] HYDROcodone/APAP 10-325MG [[place] 10-325] 1 each PO Q4H PRN #30 tab 05/03/17 [Rx] Insulin Aspart [NovoLOG (formulary)] 0 unit SQ ACHS vial 05/03/17 [Rx] predniSONE 10 mg PO DAILY #30 tab 05/03/17 [Rx] predniSONE 20 mg PO DIRECTED #46 tab 05/03/17 [Rx] Follow up Appointment(s)/Referral(s): Kyle Gilbert MD [STAFF PHYSICIAN] - 3 Weeks Liborio Belle DO [Primary Care Provider] - 3 Days Discharge Disposition: TRANSFER TO SNF/F
[2017-05-03 11:52] LABS: Glucose,Whole Blood 224 mg/dL (75-99)
[2017-05-03 12:45] LABS: ANA Pattern Speckled
[2017-05-03 17:15] LABS: Glucose,Whole Blood 356 mg/dL (75-99)
[2017-05-03] MEDS ORDERED: INSULIN ASPART 100 UNIT/ML 1 ML 10 ML VIAL SQ ONE (17:59)
[2017-05-03 20:17] LABS: Glucose,Whole Blood 290 mg/dL (75-99)
[2017-05-03] MEDS: OLANZapine 10 MG TAB PO SCH (20:24)
[2017-05-03] MEDS: INSULIN DETEMIR 100 UNIT/ML 10 ML VIAL SQ SCH (22:05)
[2017-05-04] MEDS: HYDROcodone/APAP 10-325MG 1 EACH TAB PO PRN ×4 (01:05→14:40)
[2017-05-04 05:27] LABS: Methylmalonic Acid 0.33 umol/L (<0.40)
[2017-05-04 07:29] LABS: Glucose,Whole Blood 123 mg/dL (75-99)
[2017-05-04] MEDS: INSULIN ASPART 100 UNIT/ML 1 ML 10 ML VIAL SQ SCH ×3 (07:38→17:55)
[2017-05-04] MEDS: ALBUTEROL NEBULIZED 2.5 MG/3 ML INHALATION SCH ×2 (07:40→14:20)
[2017-05-04] MEDS: SYMBICORT 80-4.5 MCG INHALER INHALATION SCH (07:40)
[2017-05-04] MEDS: DOXYCYCLINE 50 MG CAP PO SCH (10:43)
[2017-05-04] MEDS: VENLAFAXINE HCL ER 150 MG CAP PO SCH (10:44)
[2017-05-04] MEDS: THIAMINE 100 MG TAB PO SCH ×2 (10:44→15:35)
[2017-05-04] MEDS: predniSONE 20 MG TAB PO SCH (10:44)
[2017-05-04] MEDS: LISINOPRIL 10 MG TAB PO SCH (10:44)
[2017-05-04] MEDS: metFORMIN 500 MG TAB PO SCH (10:44)
[2017-05-04] MEDS: NICOTINE 21MG/24HR PATCH TRANSDERM SCH (11:00)
[2017-05-04 11:20] LABS: Glucose,Whole Blood 228 mg/dL (75-99)
--- NOTE | 2017-05-04 11:37 | P.DS ---
Providers Date of admission: 04/29/17 18:16 Attending physician: Joel Lopez Consults: 04/29/17 18:15 Consult Physician Routine Consulting Provider: Kyle Gilbert Consult Reason/Comments: thrombocytopenia Do you want consulting provider notified?: Yes Primary care physician: Liborio Beaumont Hospital Course: Patient was not discharged yesterday awaiting insurance prior authorization. Patient was seen and examined no overnight events. Please of a 20 dictation of discharge summary from yesterday for further details PHYSICAL EXAMINATION: GENERAL: The patient is alert and oriented x3, not in any acute distress. Well developed, well nourished. HEENT: Pupils are round and equally reacting to light. EOMI. No scleral icterus. No conjunctival pallor. Normocephalic, atraumatic. No pharyngeal erythema. No thyromegaly. CARDIOVASCULAR: S1 and S2 present. No murmurs, rubs, or gallops. PULMONARY: Chest is clear to auscultation, no wheezing minimal bibasilar crackles are appreciated ABDOMEN: Soft, nontender, nondistended, normoactive bowel sounds. No palpable organomegaly. MUSCULOSKELETAL: No joint swelling or deformity. Patient does have postsurgical packing on the left leg and ankle EXTREMITIES: No cyanosis, clubbing, or pedal edema. NEUROLOGICAL: Gross neurological examination did not reveal any focal deficits. SKIN: No rashes. Patient Condition at Discharge: Fair Plan - Discharge Summary Discharge Rx Participant: No New Discharge Prescriptions: New Azithromycin [Zithromax Tri-Guilherme] 500 mg PO DAILY #5 tab Tiotropium [place] [Spiriva] 1 cap INHALATION DAILY #1 device predniSONE 20 mg PO DIRECTED #46 tab HYDROcodone/APAP 10-325MG [[place] 10-325] 1 each PO Q4H PRN #30 tab PRN Reason: Pain Insulin Aspart [NovoLOG (formulary)] 0 unit SQ ACHS vial predniSONE 10 mg PO DAILY #30 tab Continue Venlafaxine HCl [Effexor XR] 300 mg PO QAM metFORMIN HCL [Glucophage] 500 mg PO BID OLANZapine [ZyPREXA] 20 mg PO HS Lisinopril [Prinivil] 10 mg PO DAILY@0800 Albuterol Nebulized [Ventolin Nebulized] 2.5 mg INHALATION RT-Q6H HYDROcodone/APAP 10-325MG [[place] 10-325] 1 - 2 tab PO Q4H PRN PRN Reason: Pain Thiamine [Vitamin B-1] 100 mg PO BID@0800,1600 Sennosides [Senokot] 8.6 mg PO BID@0800,1600 glipiZIDE [Glucotrol] 7.5 mg PO BID@0800,1600 Nicotine 21Mg/24Hr Patch [Habitrol] 1 each TRANSDERM DAILY@0800 Fluticasone/Vilanterol [Breo Ellipta 100-25 Mcg Inhaler] 1 inhalation PO Q24HR Albuterol Inhaler [Ventolin Hfa Inhaler] 1 puff INHALATION RT-Q6H PRN PRN Reason: Shortness Of Breath Or Wheezing Discontinued Oseltamivir [Tamiflu] 75 mg PO HS Discharge Medication List Venlafaxine HCl [Effexor XR] 300 mg PO QAM 03/31/16 [History] Lisinopril [Prinivil] 10 mg PO DAILY@0800 06/16/16 [History] OLANZapine [ZyPREXA] 20 mg PO HS 06/16/16 [History] metFORMIN HCL [Glucophage] 500 mg PO BID 06/16/16 [History] Albuterol Inhaler [Ventolin Hfa Inhaler] 1 puff INHALATION RT-Q6H PRN 04/29/17 [ History] Albuterol Nebulized [Ventolin Nebulized] 2.5 mg INHALATION RT-Q6H 04/29/17 [ History] Fluticasone/Vilanterol [Breo Ellipta 100-25 Mcg Inhaler] 1 inhalation PO Q24HR 04/29/17 [History] HYDROcodone/APAP 10-325MG [[place] 10-325] 1 - 2 tab PO Q4H PRN 04/29/17 [History] Nicotine 21Mg/24Hr Patch [Habitrol] 1 each TRANSDERM DAILY@0800 04/29/17 [ History] Sennosides [Senokot] 8.6 mg PO BID@0800,1600 04/29/17 [History] Thiamine [Vitamin B-1] 100 mg PO BID@0800,1600 04/29/17 [History] glipiZIDE [Glucotrol] 7.5 mg PO BID@0800,1600 04/29/17 [History] Azithromycin [Zithromax Tri-Guilherme] 500 mg PO DAILY #5 tab 04/30/17 [Rx] Tiotropium [place] [Spiriva] 1 cap INHALATION DAILY #1 device 04/30/17 [Rx] HYDROcodone/APAP 10-325MG [[place] 10-325] 1 each PO Q4H PRN #30 tab 05/03/17 [Rx] Insulin Aspart [NovoLOG (formulary)] 0 unit SQ ACHS vial 05/03/17 [Rx] predniSONE 10 mg PO DAILY #30 tab 05/03/17 [Rx] predniSONE 20 mg PO DIRECTED #46 tab 05/03/17 [Rx] Follow up Appointment(s)/Referral(s): Kyle Gilbert MD [STAFF PHYSICIAN] - 05/20/17 11:15 am (THIS APPT IS WITH DR. GILBERT AT [facility] [place][note 3] [email or web address] OFFICE. [phone]) Liborio Belle DO [Primary Care Provider] - 3 Days Activity/Diet/Wound Care/Special Instructions: RX FOR TAPERING STEROIDS SENT TO PT PREFERRED PHARMACY Discharge Disposition: TRANSFER TO SNF/ECF
[2017-05-04 12:34] VITALS: RESP 18
[2017-05-04 14:34] LABS: Albumin 3.64 g/dL (3.80-4.90)
[2017-05-04 14:55] VITALS: BP 124/70; PULSE 92; TEMP 97.4
[2017-05-04 16:55] LABS: Glucose,Whole Blood 349 mg/dL (75-99)
== END 2017-05-04 18:50 | DRG 813 ==
LOC: EC 15:30 → 5MS5E 18:16
PROVIDERS: ADMIT Hospitalist; ATTEND Hospitalist
DX: D69.3 Immune thrombocytopenic purpura (principal); I69.351 Hemiplegia and hemiparesis following cerebral infarction affecting right dominant side; J44.0 Chronic obstructive pulmonary disease with (acute) lower respiratory infection; J44.1 Chronic obstructive pulmonary disease with (acute) exacerbation; B19.10 Unspecified viral hepatitis B without hepatic coma; E11.65 Type 2 diabetes mellitus with hyperglycemia; K70.9 Alcoholic liver disease, unspecified; B19.20 Unspecified viral hepatitis C without hepatic coma; E78.5 Hyperlipidemia, unspecified; F10.21 Alcohol dependence, in remission; J20.9 Acute bronchitis, unspecified; F17.200 Nicotine dependence, unspecified, uncomplicated; F31.9 Bipolar disorder, unspecified; F43.10 Post-traumatic stress disorder, unspecified; I10 Essential (primary) hypertension; T38.0X5A Adverse effect of glucocorticoids and synthetic analogues, initial encounter; Z79.899 Other long term (current) drug therapy; Z79.84 Long term (current) use of oral hypoglycemic drugs; Z88.5 Allergy status to narcotic agent
CPT/HCPCS: 36415; 71046; 80048; 80053; 82550; 82553; 82607; 82747; 83036; 83735; 83883; 83921; 84165; 84484; 85025; 85027; 85610; 85730; 86022; 86038; 86039; 86334; 86431; 86850; 86900; 86901; 90686; 90732; 94640; 96374; 96375; 99284

== ENCOUNTER → 2017-06-01 | Outpatient (CLI) | payer OTHER ==
--- NOTE | 2017-06-01 10:19 | XR ---
EXAMINATION TYPE: XR bone survey complete DATE OF EXAM: 06/01/2017 COMPARISON: NONE HISTORY: Low platelets, monoclonal gammopathy Bony calvarium : 2 views of the bony calvarium demonstrate. No lytic lesions Spine: Two views of the cervical, thoracic and lumbar spines are submitted. Hypertrophic and degener ative disc disease seen throughout the cervical, thoracic vertebral columns. Facet arthropathy and mi ld hypertrophic changes involving the lumbar spine particularly of L4-5 and L5-S1. PELVIS: Single view of the pelvis demonstrates. Mild arthropathy of the hips. No definite lytic lesi ons. SI joints symmetric UPPER EXTREMITIES: Two views of the upper extremities. No osseous lesions. Arthropathy of the AC join ts. LOWER EXTREMITIES: 2 views of the lower extremities. No osseous lesions Frontal view of the chest demonstrates the lungs to be clear. 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 IMPRESSION:
== END | disposition home or self-care (01) ==
LOC: RADXRMAIN 09:18
PROVIDERS: ATTEND Internal Medicine Hematology & Oncology
DX: D47.2 Monoclonal gammopathy (principal)
CPT/HCPCS: 77075

== ENCOUNTER 2020-11-27 19:20 | Emergency (ER) | payer OTHER ==
[2020-11-27 19:49] VITALS: TEMP 98.3
[2020-11-27] MEDS ORDERED: SODIUM CHLORIDE 0.9% 1,000 ML IV STA (20:27)
[2020-11-27 20:58] LABS: Basophils # (A) 0.1 k/uL (0-0.2); Basophils % (A) 1 %; Eosinophils # (A) 0.2 k/uL (0-0.7); Eosinophils % (A) 2 %; HCT 44.4 % (34.0-46.0); Lymphocytes # (A) 2.7 k/uL (1.0-4.8); Lymphocytes % (A) 36 %; MCH 30.3 pg (25.0-35.0); MCHC 33.8 g/dL (31.0-37.0); MCV 89.6 fL (80.0-100.0); Mean Platelet Volume 7.1; Monocytes # (A) 0.3 k/uL (0-1.0); Monocytes % (A) 4 %; Neutrophils # (A) 4.2 k/uL (1.3-7.7); Neutrophils % (A) 55 %; Platelet Count 195 k/uL (150-450); Poikilocytosis Slight; RBC 4.96 m/uL (3.80-5.40); RDW 14.3 % (11.5-15.5); WBC 7.5 k/uL (3.8-10.6)
[2020-11-27 21:05] LABS: Appearance,Urine Cloudy (Clear); Bacteria,Urine Few /hpf; Bilirubin,Urine Negative (Negative); Blood,Urine Negative (Negative); Color,Urine Yellow; Glucose,Urine (UA) 4+ (Negative); Ketones,Urine Negative (Negative); Leukocyte Esterase,Urine Small (Negative); Mucus,Urine Rare /hpf; Nitrite,Urine Positive (Negative); PH, Urine 5.5 (5.0-8.0); Protein,Urine Negative (Negative); RBC,Urine 1 /hpf (0-5); Specific Gravity,Urine 1.028 (1.001-1.035); Squamous Epithelial Cell,Urine 6 /hpf (0-4); WBC,Urine 35 /hpf (0-5)
[2020-11-27 21:07] LABS: ALT 45 U/L (4-34); AST 39 U/L (14-36); African American GFR (CKD) >90 (>60 ml/min/1.73 sqM); Albumin 3.9 g/dL (3.5-5.0); Alkaline Phosphatase 108 U/L (38-126); Anion Gap 9 mmol/L; Blood Urea Nitrogen 5 mg/dL (7-17); Calcium 9.4 mg/dL (8.4-10.2); Carbon Dioxide 32 mmol/L (22-30); Chloride 98 mmol/L (98-107); Glucose 294 mg/dL (74-99); Magnesium 1.5 mg/dL (1.6-2.3); Non-African American GFR(CKD) >90 (>60 ml/min/1.73 sqM); Potassium 3.8 mmol/L (3.5-5.1); Sodium 139 mmol/L (137-145); Total Bilirubin 0.3 mg/dL (0.2-1.3); Total Protein 7.1 g/dL (6.3-8.2)
--- NOTE | 2020-11-27 21:28 | US ---
EXAMINATION TYPE: US venous doppler duplex LE BI DATE OF EXAM: 11/27/2020 8:28 PM COMPARISON: NONE CLINICAL HISTORY: leg swelling. SIDE PERFORMED: Bilateral TECHNIQUE: The lower extremity deep venous system is examined utilizing real time linear array sonog nerissa with graded compression, doppler sonography and color-flow sonography. VESSELS IMAGED: Common Femoral Vein Deep Femoral Vein Greater Saphenous Vein * Femoral Vein Popliteal Vein Small Saphenous Vein * Proximal Calf Veins (* superficial vessels) Right Leg: Negative for DVT Left Leg: Negative for DVT IMPRESSION: No evidence of deep vein thrombosis in both legs.
--- NOTE | 2020-11-27 21:50 | ED ---
Extremity Problem HPI - General Chief complaint: Extremity Problem,Nontraumatic Stated complaint: R Leg Swelling,Diabetic Time Seen by Provider: 11/27/20 19:56 Source: patient Mode of arrival: ambulatory Limitations: no limitations - History of Present Illness Initial comments: 55-year-old female with history of insulin-dependent diabetes presenting to e mergency Department with chief complaint of leg swelling patient reports she has been developing bilateral lower extremity edema over the last week. States it is more on the right versus left. She states it is tender to the touch as well. States her diabetes is not well-controlled. States that she used to take rapid and long-acting insulin but has not been able to over the last year. She has not been able to see her primary care physician for quite some time as well. She denies any abdominal pain chest pain or shortness of breath. Denies any previous history of DVT or PE. No recent surgical interventions her hospital stays. Not taking exogenous estrogens. - Related Data Previous Rx's Medication Instructions Recorded INSULIN ASPART (NovoLOG) [NovoLOG 0 unit SQ ACHS #10 ml 11/27/20 (formulary)] Insulin Glargine [Lantus Vial] 0 unit SQ DAILY #10 ml 11/27/20 Nitrofurantoin Monohyd/M-Cryst 100 mg PO Q12HR #14 cap 11/27/20 [Macrobid] Allergies Allergy/AdvReac Type Severity Reaction Status Date / Time hydromorphone HCl Allergy Unknown Rash/Hives Verified 11/27/20 20:09 [From Dilaudid] Review of Systems ROS Statement: Those systems with pertinent positive or pertinent negative responses have been documented in the HPI. ROS Other: All systems not noted in ROS Statement are negative. Past Medical History Past Medical History: CVA/TIA, Diabetes Mellitus, Hyperlipidemia, Hypertension, Liver Disease Additional Past Medical History / Comment(s): "past alcoholism quit year ago when she started heroin" , "hepatitis b and c", stroke in 04/2015 with right sided weakness, History of Any Multi-Drug Resistant Organisms: None Reported Past Surgical History: Cholecystectomy, Tonsillectomy, Tubal Ligation Additional Past Surgical History / Comment(s): esophageal surgery Past Anesthesia/Blood Transfusion Reactions: Motion Sickness Past Psychological History: Bipolar, Depression, PTSD Smoking Status: Current every day smoker Past Alcohol Use History: Abuse Past Drug Use History: None Reported, Cocaine, Heroin - Past Family History Mother Additional Family Medical History / Comment(s): "chorea bill disease" Father Family Medical History: Liver Disease Additional Family Medical History / Comment(s): alcoholic General Exam Limitations: no limitations General appearance: alert, in no apparent distress Head exam: Present: atraumatic, normocephalic, normal inspection Eye exam: Present: normal appearance Pupils: Present: normal accommodation ENT exam: Present: normal exam, normal oropharynx, mucous membranes moist Neck exam: Present: normal inspection, full ROM. Absent: tenderness Respiratory exam: Present: normal lung sounds bilaterally. Absent: respiratory distress, wheezes, rales, rhonchi, stridor, chest wall tenderness, accessory muscle use Cardiovascular Exam: Present: regular rate, normal rhythm, normal heart sounds. Absent: systolic murmur GI/Abdominal exam: Present: soft. Absent: distended, tenderness, guarding, rebound Extremities exam: Present: normal inspection, full ROM, normal capillary refill, pedal edema (+1 pitting edema right lower stomach.), other (Palpable DP and PT bilaterally). Absent: tenderness Back exam: Present: normal inspection, full ROM. Absent: tenderness Neurological exam: Present: alert, oriented X3 Psychiatric exam: Present: normal affect, normal mood Skin exam: Present: warm, dry, intact, normal color Course Vital Signs 11/27/20 11/27/20 19:46 22:31 Temperature 98.3 F Pulse Rate 92 89 Respiratory 20 18 Rate Blood Pressure 124/70 120/64 O2 Sat by Pulse 99 99 Oximetry Medical Decision Making - Medical Decision Making 55-year-old female with history of insulin-dependent diabetes presenting to emergency Department with chief complaint of leg swelling. On physical examination, +1 pitting edema in the right lower extremity. Ultrasound bilateral lower extremities revealed no signs of DVT. Blood glucose is 300. I will give the patient a prescription for Lantus and Humalog. She has an appointment next month with a new primary care physician. Patient also has a urinary tract infection with positive nitrates, white blood cells as well as leukocyte esterase. Urine culture is pending. I will give the patient 1 g of Rocephin and a course of antibiotics. Return parameters were thoroughly discussed patient is resting ago. Case discussed with - Lab Data Result diagrams: 11/27/20 20:34 11/27/20 20:34 Lab Results 11/27/20 11/27/20 11/27/20 Range/Units 20:34 20:34 20:34 WBC 7.5 (3.8-10.6) k/uL RBC 4.96 (3.80-5.40) m/uL Hgb 15.0 (11.4-16.0) gm/dL Hct 44.4 (34.0-46.0) % MCV 89.6 (80.0-100.0) fL MCH 30.3 (25.0-35.0) pg MCHC 33.8 (31.0-37.0) g/dL RDW 14.3 (11.5-15.5) % Plt Count 195 (150-450) k/uL MPV 7.1 Neutrophils % 55 % Lymphocytes % 36 % Monocytes % 4 % Eosinophils % 2 % Basophils % 1 % Neutrophils # 4.2 (1.3-7.7) k/uL Lymphocytes # 2.7 (1.0-4.8) k/uL Monocytes # 0.3 (0-1.0) k/uL Eosinophils # 0.2 (0-0.7) k/uL Basophils # 0.1 (0-0.2) k/uL Poikilocytosis Slight Sodium 139 (137-145) mmol/L Potassium 3.8 (3.5-5.1) mmol/L Chloride 98 (98-107) mmol/L Carbon Dioxide 32 H (22-30) mmol/L Anion Gap 9 mmol/L BUN 5 L (7-17) mg/dL Creatinine 0.41 L (0.52-1.04) mg/dL Est GFR (CKD-EPI)AfAm >90 (>60 ml/min/1.73 sqM) Est GFR (CKD-EPI)NonAf >90 (>60 ml/min/1.73 sqM) Glucose 294 H (74-99) mg/dL Calcium 9.4 (8.4-10.2) mg/dL Magnesium 1.5 L (1.6-2.3) mg/dL Total Bilirubin 0.3 (0.2-1.3) mg/dL AST 39 H (14-36) U/L ALT 45 H (4-34) U/L Alkaline Phosphatase 108 (38-126) U/L Total Protein 7.1 (6.3-8.2) g/dL Albumin 3.9 (3.5-5.0) g/dL Urine Color Yellow Urine Appearance Cloudy H (Clear) Urine pH 5.5 (5.0-8.0) Ur Specific Many 1.028 (1.001-1.035) Urine Protein Negative (Negative) Urine Glucose (UA) 4+ H (Negative) Urine Ketones Negative (Negative) Urine Blood Negative (Negative) Urine Nitrite Positive H (Negative) Urine Bilirubin Negative (Negative) Urine Urobilinogen 2.0 (<2.0) mg/dL Ur Leukocyte Esterase Small H (Negative) Urine RBC 1 (0-5) /hpf Urine WBC 35 H (0-5) /hpf Ur Squamous Epith Cells 6 H (0-4) /hpf Urine Bacteria Few H (None) /hpf Urine Mucus Rare H (None) /hpf Acetone, Qual Negative (Negative) Disposition Clinical Impression: Urinary tract infection Disposition: HOME SELF-CARE Condition: Stable Instructions (If sedation given, give patient instructions): Urinary Tract Infection in Women (DC) Additional Instructions: Take prescribed medication as directed. Return to emergency department if symptoms worsen. Prescriptions: Insulin Glargine [Lantus Vial] 0 unit SQ DAILY #10 ml Nitrofurantoin Monohyd/M-Cryst [Macrobid] 100 mg PO Q12HR #14 cap INSULIN ASPART (NovoLOG) [NovoLOG (formulary)] 0 unit SQ ACHS #10 ml Is patient prescribed a controlled substance at d/c from ED?: No Referrals: None,Stated [Primary Care Provider] - 1-2 days Time of Disposition: 22:17
[2020-11-27] MEDS ORDERED: cefTRIAXone IN SWFI 1,000 MG/10 ML SYRINGE IVP STA (22:15)
[2020-11-27 22:32] VITALS: BP 120/64; PULSE 89; RESP 18
== END 2020-11-27 22:36 | disposition home or self-care (01) ==
LOC: EC 19:20
DX: N39.0 Urinary tract infection, site not specified (principal); R60.0 Localized edema; E11.9 Type 2 diabetes mellitus without complications; I10 Essential (primary) hypertension; E78.5 Hyperlipidemia, unspecified; F17.200 Nicotine dependence, unspecified, uncomplicated; Z79.4 Long term (current) use of insulin; Z88.5 Allergy status to narcotic agent; Z86.73 Personal history of transient ischemic attack (TIA), and cerebral infarction without residual deficits
CPT/HCPCS: 36415; 80053; 82009; 83735; 85025; 81001; 87086; 93970; 96374; 96361; 99284; J0696

== ENCOUNTER → 2021-06-26 | Outpatient (CLI) | payer OTHER ==
--- NOTE | 2021-06-26 11:31 | US ---
EXAMINATION TYPE: US abdomen complete DATE OF EXAM: 06/26/2021 COMPARISON: NONE CLINICAL HISTORY: 55-year-old female R76.8 ABNORMAL IMMUNOLOGICAL FINDINGS IN SERUM. Hep C and B TECHNIQUE: Multiple sonographic images of the abdomen are obtained. FINDINGS: EXAM MEASUREMENTS: Liver Length: 17.4 cm Gallbladder: Surgically absent CBD: .5 cm Spleen: 12.7 cm Right Kidney: 10.5 x 4.0 x 5.2 cm Left Kidney: 11.1 x 5.8 x cm Pancreas: Obscured by bowel gas Liver: Borderline enlarged. There is some patchy increased echogenicity along the superficial aspect of the liver that could represent some areas of focal fat. Gallbladder: Surgically absent Evidence for sonographic Murray's sign: No CBD: wnl Spleen: wnl Right Kidney: wnl Left Kidney: Transverse images not obtained due to bowel gas and shadowing. No hydronephrosis seen. Upper IVC: wnl Abd Aorta: wnl IMPRESSION: 1. Borderline hepatomegaly (17.4 cm). There may be some scattered areas of focal fat along the anteri or portion of the liver. 2. Status post cholecystectomy. No biliary ductal dilatation. 3. Limited assessment of the left kidney. No evident hydronephrosis.
== END | disposition home or self-care (01) ==
LOC: RADUSWWP 07:37
PROVIDERS: ATTEND Family Medicine
DX: R16.0 Hepatomegaly, not elsewhere classified (principal); Z90.49 Acquired absence of other specified parts of digestive tract
CPT/HCPCS: 76700

== ENCOUNTER → 2021-07-21 | Outpatient (CLI) | payer OTHER ==
--- NOTE | 2021-07-21 22:29 | US ---
EXAMINATION TYPE: US carotid duplex BILAT DATE OF EXAM: 07/21/2021 COMPARISON: NONE CLINICAL HISTORY: R51.9 HEADACHE, G89.29 CHRONIC PAIN, R09.89 CAROTID BRUIT. Left hemispheric TIA 4 y ears ago, smoker x 40 years, now has left hand tingling to elbow EXAM MEASUREMENTS: RIGHT: Peak Systolic Velocity (PSV) cm/sec ----- Right CCA: 89.2 ----- Right ICA: 135.2 ----- Right ECA: 89.9 ICA/CCA ratio: 1.5 RIGHT: End Diastole cm/sec ----- Right CCA: 27.3 ----- Right ICA: 36.5 ----- Right ECA: 23.6 LEFT: Peak Systolic Velocity (PSV) cm/sec ----- Left CCA: 78.5 ----- Left ICA: 156.9 ----- Left ECA: 120.6 ICA/CCA ratio: 2.0 LEFT: End Diastole cm/sec ----- Left CCA: 22.8 ----- Left ICA: 30.8 ----- Left ECA: 30.1 VERTEBRALS (direction of flow): Right Vertebral: Antegrade Left Vertebral: Antegrade Rhythm: Normal Sung scale images show mild to moderate plaque noted at bilateral carotid bifurcation greater on the left with abnormally elevated PSV in Right ICA, Left ICA and in Left ECA. No increased end-diastolic velocities. Left-sided ratio is borderline IMPRESSION: Moderate atherosclerotic changes greater on the left. Stenosis near 50% on the left is likely present. Criteria for Assigning % of Stenosis / Diameter reduction (Estimation based on the indirect measurements of the internal carotid artery velocities (ICA PSV). 1. Normal (no stenosis)=ICA PSV < 125 cm/s: ratio < 2.0: ICA EDV<40 cm/s. 2. Less than 50% stenosis=ICA PSV < 125 cm/s: ratio < 2.0: ICA EDV<40 cm/s. 3. 50 to 69% stenosis=ICA PSV of 125 to 230 cm/s: ration 2.0 ? 4.0: ICA EDV 40-100 cm/s. 4. Greater than 70% stenosis to near occlusion= ICA PSV > 230 cm/s: ratio > 4.0: ICA EDV > 100 cm/s. 5. Near occlusion= ICA PSV velocities may be low or undetectable: variable ratio and ICA EDV. 6. Total occlusion=unable to detect flow.
== END | disposition home or self-care (01) ==
LOC: RADUSWWP 13:04
PROVIDERS: ATTEND Family Medicine
DX: I65.23 Occlusion and stenosis of bilateral carotid arteries (principal); E11.9 Type 2 diabetes mellitus without complications; F17.290 Nicotine dependence, other tobacco product, uncomplicated; Z86.73 Personal history of transient ischemic attack (TIA), and cerebral infarction without residual deficits
CPT/HCPCS: 93880; 93923

== ENCOUNTER → 2021-08-16 | Outpatient (CLI) | payer OTHER ==
--- NOTE | 2021-08-16 13:30 | MR ---
EXAMINATION TYPE: MR brain wo con DATE OF EXAM: 08/16/2021 COMPARISON: NONE HISTORY: Headaches, dizziness, right carotid bruit TECHNIQUE: Multiplanar, multisequence imaging of the brain and brainstem is performed without IV cont rast. FINDINGS: Diffusion weighted images demonstrate no evidence of a recent infarct or other diffusion abnormality. There is mild ventricular and sulcal prominence. Large area of encephalomalacia involving the left fr ontal and parietal lobes extending into the occipital lobe in the MCA distribution. Prominent Virchow -Denny spaces or small lacunar infarcts bilateral posterior basal ganglia axial image 16 are noted. Midline structures demonstrate normal morphology. The craniocervical junction appears within normal limits. Normal vascular flow voids are present. The visualized sinuses are clear and the globes are i ntact. No suspicious flow signal in the mastoid air cells bilaterally. IMPRESSION: No MRI evidence for recent infarct. Large old left-sided infarct is present. Correlation with old outside CT or MRI would be beneficial.
== END | disposition home or self-care (01) ==
LOC: RADMRIMAIN 12:51
PROVIDERS: ATTEND Family Medicine
DX: I63.81 Other cerebral infarction due to occlusion or stenosis of small artery (principal)
CPT/HCPCS: 70551

== ENCOUNTER 2021-09-19 19:14 | Emergency (ER) | payer OTHER ==
[2021-09-19] MEDS ORDERED: SODIUM CHLORIDE 0.9% 1,000 ML IV ONE (19:49)
[2021-09-19 19:51] VITALS: RESP 16
--- NOTE | 2021-09-19 19:56 | ED ---
Extremity Problem HPI - General Stated complaint: Celulitis/leg pain Time Seen by Provider: 09/19/21 19:48 Source: RN notes reviewed - History of Present Illness Initial comments: This is a pleasant 55-year-old female who presents to emergency department with chief complaint of bilateral lower extremity cellulitis. Patient recently diagnosed with peripheral arterial disease. Patient has not followed up with her regular physician since having the arterial Doppler done. Patient was admitted over to [facility] last night and ended up leaving AGAINST MEDICAL ADVICE this morning. Patient states that she started having problems with her legs back late last year. Note that the patient still smoking cigarettes. History of hypertension, diabetes mellitus, and hyperlipidemia. No headache, no fever or chills, no changes in vision or hearing, no sore throat or difficulty with speech, no neck pain, no chest pain or shortness of breath, no abdominal pain, no nausea or vomiting, no changes in urination or bowel movements, no numbness or tingling, no skin rashes or lesions. - Related Data Previous Rx's Medication Instructions Recorded INSULIN ASPART (NovoLOG) [NovoLOG 0 unit SQ ACHS #10 ml 11/27/20 (formulary)] Insulin Glargine [Lantus Vial] 0 unit SQ DAILY #10 ml 11/27/20 Nitrofurantoin Monohyd/M-Cryst 100 mg PO Q12HR #14 cap 11/27/20 [Macrobid] Cephalexin [Keflex] 500 mg PO Q6HR #40 cap 09/20/21 Allergies Allergy/AdvReac Type Severity Reaction Status Date / Time hydromorphone HCl Allergy Unknown Rash/Hives Verified 09/19/21 19:45 [From Dilaudid] Review of Systems ROS Statement: Those systems with pertinent positive or pertinent negative responses have been documented in the HPI. ROS Other: All systems not noted in ROS Statement are negative. Past Medical History Past Medical History: CVA/TIA, Diabetes Mellitus, Hyperlipidemia, Hypertension, Liver Disease Additional Past Medical History / Comment(s): "past alcoholism quit year ago when she started heroin" , "hepatitis b and c", stroke in 04/2015 with right sided weakness, History of Any Multi-Drug Resistant Organisms: None Reported Past Surgical History: Cholecystectomy, Tonsillectomy, Tubal Ligation Additional Past Surgical History / Comment(s): esophageal surgery Past Anesthesia/Blood Transfusion Reactions: Motion Sickness Past Psychological History: Bipolar, Depression, PTSD Smoking Status: Current every day smoker Past Alcohol Use History: Abuse Past Drug Use History: None Reported, Cocaine, Heroin - Past Family History Mother Additional Family Medical History / Comment(s): "chorea bill disease" Father Family Medical History: Liver Disease Additional Family Medical History / Comment(s): alcoholic General Exam General appearance: alert, in no apparent distress Head exam: Present: atraumatic, normocephalic, normal inspection Eye exam: Present: normal appearance, PERRL, EOMI. Absent: scleral icterus, conjunctival injection, periorbital swelling ENT exam: Present: normal exam, mucous membranes moist Neck exam: Present: normal inspection, full ROM. Absent: tenderness, meningismus, lymphadenopathy Respiratory exam: Present: normal lung sounds bilaterally. Absent: respiratory distress, wheezes, rales, rhonchi, stridor, chest wall tenderness, accessory muscle use, decreased breath sounds, prolonged expiratory Cardiovascular Exam: Present: regular rate, normal rhythm, normal heart sounds. Absent: systolic murmur, diastolic murmur, rubs, gallop, clicks GI/Abdominal exam: Present: soft, normal bowel sounds. Absent: distended, tenderness, guarding, rebound, rigid Extremities exam: Present: full ROM, normal capillary refill, other (Patient has chronic appearing skin changes to lower symptoms, below the knee, dusky erythema with hypertrophic skin changes consistent with chronic arterial insu fficiency/venous insufficiency. No open wounds. Pedal pulses are palpable. Capillary refill less than 3 seconds. Full range of motion. ). Absent: normal inspection, tenderness, pedal edema, joint swelling, calf tenderness Back exam: Present: normal inspection Neurological exam: Present: alert, oriented X3, CN II-XII intact. Absent: normal gait, motor sensory deficit, reflexes normal Psychiatric exam: Present: normal affect, normal mood Skin exam: Present: warm, dry, intact, normal color. Absent: rash Course Vital Signs 09/19/21 09/19/21 19:46 22:46 Temperature 98.6 F 98.1 F Pulse Rate 92 87 Respiratory 16 Rate Blood Pressure 176/89 192/88 O2 Sat by Pulse 100 100 Oximetry Medical Decision Making - Medical Decision Making Patient has chronic appearing skin changes likely related to venous stasis dermatitis and possibly arterial insufficiency. However the patient has good pulses. Patient also has a chronic rash to both lower extremities. There is a dusky erythema. Certainly cellulitis could be involved. However the patient has no elevated white blood cell count, no fever, patient's lactic acid was elevated, likely hydration status. Patient is diabetic. I'm going to cover the patient with antibiotics. She has no history of MRSA. Ancef 2 g IV piggyback ordered. I did give the patient the option of being admitted to the hospital. However patient states she feels well enough to go home. Patient choosing outpatient therapy. She states that she will return if anything worsens. Patient discharged to shared decision-making. Patient is of sound mind to make medical decisions. Rest re-x-rays benefits. Patient was told to return to the ER for any signs or symptoms worsen. Told to return immediately if any other problems arise. All questions answered. Treatment plan discussed. Patient in agreement Every effort has been made to ensure accuracy of this dictation. However, due to the limitations of electronic medical records and dictation devices, errors in charting still occur. The case was discussed in detail with ED attending physician. Presentation, findings, treatment plan discussed in detail. Patient also seen and assessed by the ED attending physician, Dr. Guidry - Lab Data Result diagrams: 09/19/21 22:32 09/19/21 22:32 Lab Results 09/19/21 09/19/21 09/19/21 Range/Units 22:32 22:32 22:32 WBC 5.7 (3.8-10.6) k/uL RBC 4.96 (3.80-5.40) m/uL Hgb 15.4 (11.4-16.0) gm/dL Hct 45.3 (34.0-46.0) % MCV 91.5 (80.0-100.0) fL MCH 31.2 (25.0-35.0) pg MCHC 34.1 (31.0-37.0) g/dL RDW 13.3 (11.5-15.5) % Plt Count 146 L (150-450) k/uL MPV 7.7 Neutrophils % 51 % Lymphocytes % 40 % Monocytes % 5 % Eosinophils % 3 % Basophils % 1 % Neutrophils # 2.9 (1.3-7.7) k/uL Lymphocytes # 2.3 (1.0-4.8) k/uL Monocytes # 0.3 (0-1.0) k/uL Eosinophils # 0.2 (0-0.7) k/uL Basophils # 0.0 (0-0.2) k/uL ESR 16 (0-20) mm/hr Sodium 135 L (137-145) mmol/L Potassium 3.6 (3.5-5.1) mmol/L Chloride 98 (98-107) mmol/L Carbon Dioxide 31 H (22-30) mmol/L Anion Gap 6 mmol/L BUN 11 (7-17) mg/dL Creatinine 0.61 (0.52-1.04) mg/dL Est GFR (CKD-EPI)AfAm >90 (>60 ml/min/1.73 sqM) Est GFR (CKD-EPI)NonAf >90 (>60 ml/min/1.73 sqM) Glucose 217 H (74-99) mg/dL Lactic Ac Sepsis Rflx Plasma Lactic Acid Jean (0.7-2.0) mmol/L Calcium 9.2 (8.4-10.2) mg/dL Total Bilirubin 0.5 (0.2-1.3) mg/dL AST 67 H (14-36) U/L ALT 63 H (4-34) U/L Alkaline Phosphatase 84 (38-126) U/L C-Reactive Protein <0.5 (<1.0) mg/dL Total Protein 7.4 (6.3-8.2) g/dL Albumin 3.9 (3.5-5.0) g/dL Urine Color Light Yellow Urine Appearance Clear (Clear) Urine pH 6.0 (5.0-8.0) Ur Specific [place] 1.006 (1.001-1.035) Urine Protein Negative (Negative) Urine Glucose (UA) 1+ H (Negative) Urine Ketones Negative (Negative) Urine Blood Negative (Negative) Urine Nitrite Negative (Negative) Urine Bilirubin Negative (Negative) Urine Urobilinogen <2.0 (<2.0) mg/dL Ur Leukocyte Esterase Negative (Negative) 09/19/21 09/19/21 Range/Units 22:32 23:17 WBC (3.8-10.6) k/uL RBC (3.80-5.40) m/uL Hgb (11.4-16.0) gm/dL Hct (34.0-46.0) % MCV (80.0-100.0) fL MCH (25.0-35.0) pg MCHC (31.0-37.0) g/dL RDW (11.5-15.5) % Plt Count (150-450) k/uL MPV Neutrophils % % Lymphocytes % % Monocytes % % Eosinophils % % Basophils % % Neutrophils # (1.3-7.7) k/uL Lymphocytes # (1.0-4.8) k/uL Monocytes # (0-1.0) k/uL Eosinophils # (0-0.7) k/uL Basophils # (0-0.2) k/uL ESR (0-20) mm/hr Sodium (137-145) mmol/L Potassium (3.5-5.1) mmol/L Chloride (98-107) mmol/L Carbon Dioxide (22-30) mmol/L Anion Gap mmol/L BUN (7-17) mg/dL Creatinine (0.52-1.04) mg/dL Est GFR (CKD-EPI)AfAm (>60 ml/min/1.73 sqM) Est GFR (CKD-EPI)NonAf (>60 ml/min/1.73 sqM) Glucose (74-99) mg/dL Lactic Ac Sepsis Rflx Y Plasma Lactic Acid Jean 2.9 H* (0.7-2.0) mmol/L Calcium (8.4-10.2) mg/dL Total Bilirubin (0.2-1.3) mg/dL AST (14-36) U/L ALT (4-34) U/L Alkaline Phosphatase (38-126) U/L C-Reactive Protein (<1.0) mg/dL Total Protein (6.3-8.2) g/dL Albumin (3.5-5.0) g/dL Urine Color Urine Appearance (Clear) Urine pH (5.0-8.0) Ur Specific [place] (1.001-1.035) Urine Protein (Negative) Urine Glucose (UA) (Negative) Urine Ketones (Negative) Urine Blood (Negative) Urine Nitrite (Negative) Urine Bilirubin (Negative) Urine Urobilinogen (<2.0) mg/dL Ur Leukocyte Esterase (Negative) Disposition Clinical Impression: Bilateral cellulitis of lower leg, Chronic pruritic rash in adult, Uncontrolled hypertension Disposition: HOME SELF-CARE Condition: Good Instructions (If sedation given, give patient instructions): Cellulitis (ED), Hypertension (ED), Dermatitis (ED) Additional Instructions: Follow-up with your primary care physician as planned. Call Wednesday morning for follow-up appointment. He should also make an appointment with the director of it operations as discussed. You might need other outpatient testing or workup. Take antibiotics as directed. Elevate legs whenever possible. Follow-up with your regular physician as directed. Return to the ER immediately if any symptoms worsen, new symptoms arise, or any other problems develop. Prescriptions: Cephalexin [Keflex] 500 mg PO Q6HR #40 cap Is patient prescribed a controlled substance at d/c from ED?: No Referrals: Zabrina Pardo MD [Primary Care Provider] - 09/22/21 8:00 am Jerry Jenkins MD [STAFF PHYSICIAN] - 09/25/21 Time of Disposition: 02:50
[2021-09-19 22:49] VITALS: TEMP 98.1
[2021-09-19 23:01] LABS: Basophils % (A) 1 %; Eosinophils # (A) 0.2 k/uL (0-0.7); Eosinophils % (A) 3 %; HCT 45.3 % (34.0-46.0); HGB 15.4 gm/dL (11.4-16.0); Lymphocytes # (A) 2.3 k/uL (1.0-4.8); Lymphocytes % (A) 40 %; MCH 31.2 pg (25.0-35.0); MCHC 34.1 g/dL (31.0-37.0); MCV 91.5 fL (80.0-100.0); Mean Platelet Volume 7.7; Monocytes # (A) 0.3 k/uL (0-1.0); Monocytes % (A) 5 %; Neutrophils # (A) 2.9 k/uL (1.3-7.7); Neutrophils % (A) 51 %; Platelet Count 146 k/uL (150-450); RBC 4.96 m/uL (3.80-5.40); RDW 13.3 % (11.5-15.5); WBC 5.7 k/uL (3.8-10.6)
[2021-09-19 23:10] LABS: ALT 63 U/L (4-34); AST 67 U/L (14-36); African American GFR (CKD) >90 (>60 ml/min/1.73 sqM); Albumin 3.9 g/dL (3.5-5.0); Alkaline Phosphatase 84 U/L (38-126); Anion Gap 6 mmol/L; Blood Urea Nitrogen 11 mg/dL (7-17); Calcium 9.2 mg/dL (8.4-10.2); Carbon Dioxide 31 mmol/L (22-30); Chloride 98 mmol/L (98-107); Glucose 217 mg/dL (74-99); Non-African American GFR(CKD) >90 (>60 ml/min/1.73 sqM); Potassium 3.6 mmol/L (3.5-5.1); Sodium 135 mmol/L (137-145); Total Bilirubin 0.5 mg/dL (0.2-1.3); Total Protein 7.4 g/dL (6.3-8.2)
[2021-09-19 23:16] LABS: C Reactive Protein <0.5 mg/dL (<1.0)
[2021-09-19 23:39] LABS: Appearance,Urine Clear (Clear); Bilirubin,Urine Negative (Negative); Blood,Urine Negative (Negative); Color,Urine Light Yellow; Erythrocyte Sedimentation Rate 16 mm/hr (0-20); Glucose,Urine (UA) 1+ (Negative); Ketones,Urine Negative (Negative); Leukocyte Esterase,Urine Negative (Negative); Nitrite,Urine Negative (Negative); Protein,Urine Negative (Negative); Specific Gravity,Urine 1.006 (1.001-1.035); Urobilinogen,Urine <2.0 mg/dL (<2.0)
[2021-09-20] MEDS ORDERED: SODIUM CHLORIDE 0.9% 1,000 ML IV ONE (00:23)
[2021-09-20] MEDS ORDERED: Acetaminophen-Codeine 300-30mg TAB PO STA (03:24)
[2021-09-20] MEDS ORDERED: ACET/COD 300 MG/30 MG STARTER PACK 6 TAB BTL PO STA (03:26)
[2021-09-20 05:30] VITALS: BP 167/89; PULSE 77
== END 2021-09-20 05:30 | disposition home or self-care (01) ==
LOC: EC 19:14
DX: L03.116 Cellulitis of left lower limb (principal); L03.115 Cellulitis of right lower limb; E11.9 Type 2 diabetes mellitus without complications; E78.5 Hyperlipidemia, unspecified; I10 Essential (primary) hypertension; Z86.73 Personal history of transient ischemic attack (TIA), and cerebral infarction without residual deficits; F17.200 Nicotine dependence, unspecified, uncomplicated; Z88.5 Allergy status to narcotic agent
CPT/HCPCS: 36415; 80053; 85652; 83605; 85025; 86140; 81003; 87040; 99283; 96365; 96361; J0690

== ENCOUNTER → 2021-10-21 | Outpatient (CLI) | payer OTHER ==
--- NOTE | 2021-10-21 17:14 | US ---
EXAMINATION TYPE: US venous doppler duplex LE BI DATE OF EXAM: 10/21/2021 4:46 PM COMPARISON: NONE CLINICAL HISTORY: M79.89 LEG SWELLING. Bilateral leg pain and edema, worse on the left for 2 months SIDE PERFORMED: bilateral TECHNIQUE: The lower extremity deep venous system is examined utilizing real time linear array sonog nerissa with graded compression, doppler sonography and color-flow sonography. VESSELS IMAGED: Common Femoral Vein Deep Femoral Vein Greater Saphenous Vein * Femoral Vein Popliteal Vein Small Saphenous Vein * Proximal Calf Veins (* superficial vessels) Right Leg: no evidence of DVT. Multiple lymph nodes right groin, largest = 3.2cm with normal renifor m fatty hilum. Left Leg: no evidence of DVT. Multiple lymph nodes left groin, largest = 3.5cm with normal reniform fatty hilum. Grayscale, color doppler, spectral doppler imaging performed of the deep veins of the lower extremiti es. There is normal flow, compressibility, vascular waveforms. IMPRESSION: No evidence of deep vein thrombosis.
== END | disposition home or self-care (01) ==
LOC: RADUSWWP 16:18
PROVIDERS: ATTEND Family Medicine
DX: M79.89 Other specified soft tissue disorders (principal)
CPT/HCPCS: 93970

== ENCOUNTER → 2021-11-10 | Outpatient (CLI) | payer OTHER ==
--- NOTE | 2021-11-10 14:18 | US ---
EXAMINATION TYPE: US liver DATE OF EXAM: 11/10/2021 COMPARISON: Abdominal ultrasound 06/26/2021. CLINICAL HISTORY: B18.2 CHRONIC VIRAL HEP C. Chronic hepatitis C, cholecystectomy TECHNIQUE: Multiple sonographic images of the right upper quadrant are obtained. FINDINGS: EXAM MEASUREMENTS: Liver Length: 18.8 cm Gallbladder Wall: Surgically absent CBD: 0.4 cm Right Kidney: 10.9 x 4.1 x 4.6 cm Pancreas: Obscured by bowel gas Liver: enlarged with coarsened appearance. No focal hepatic lesion. Gallbladder: Surgically absent CBD: wnl Right Kidney: no evidence of hydronephrosis . No shadowing calculi. IMPRESSION: Hepatomegaly with coarsened appearance suggestive of hepatocellular disease. No overt cirrhotic appea lorri or focal lesion.
== END | disposition home or self-care (01) ==
LOC: RADUSWWP 08:59
PROVIDERS: ATTEND Internal Medicine Gastroenterology
DX: R16.0 Hepatomegaly, not elsewhere classified (principal)
CPT/HCPCS: 76705

== ENCOUNTER 2022-02-12 18:17 | Emergency (ER) | payer OTHER ==
[2022-02-12 20:02] LABS: Glucose,Whole Blood 428 mg/dL (70-110)
[2022-02-12 20:05] VITALS: TEMP 97.7
[2022-02-12 21:04] LABS: Basophils # (A) 0.1 k/uL (0-0.2); Basophils % (A) 1 %; Eosinophils # (A) 0.1 k/uL (0-0.7); Eosinophils % (A) 1 %; HCT 46.6 % (34.0-46.0); HGB 16.6 gm/dL (11.4-16.0); Lymphocytes # (A) 2.1 k/uL (1.0-4.8); Lymphocytes % (A) 26 %; MCH 32.5 pg (25.0-35.0); MCHC 35.7 g/dL (31.0-37.0); Monocytes # (A) 0.4 k/uL (0-1.0); Monocytes % (A) 5 %; Neutrophils # (A) 5.4 k/uL (1.3-7.7); Neutrophils % (A) 66 %; RBC 5.12 m/uL (3.80-5.40); RDW 12.9 % (11.5-15.5); WBC 8.2 k/uL (3.8-10.6)
[2022-02-12 21:12] LABS: Platelet Count 94 k/uL (150-450)
[2022-02-12 21:39] LABS: ALT 69 U/L (4-34); AST 53 U/L (14-36); African American GFR (CKD) >90 (>60 ml/min/1.73 sqM); Albumin 3.9 g/dL (3.5-5.0); Alkaline Phosphatase 109 U/L (38-126); Anion Gap 8 mmol/L; Blood Urea Nitrogen 18 mg/dL (7-17); Carbon Dioxide 32 mmol/L (22-30); Chloride 95 mmol/L (98-107); Glucose 319 mg/dL (74-99); Magnesium 1.4 mg/dL (1.6-2.3); Non-African American GFR(CKD) >90 (>60 ml/min/1.73 sqM); Phosphorus 3.7 mg/dL (2.5-4.5); Potassium 4.1 mmol/L (3.5-5.1); Sodium 135 mmol/L (137-145); Total Bilirubin 0.6 mg/dL (0.2-1.3); Total Protein 7.2 g/dL (6.3-8.2)
--- NOTE | 2022-02-12 21:56 | XR ---
EXAMINATION TYPE: XR chest 2V DATE OF EXAM: 02/12/2022 COMPARISON: Chest x-ray April 30, 2017 HISTORY: Lightheadedness. TECHNIQUE: Frontal and lateral views of the chest are obtained. FINDINGS: There is mild chronic parenchymal change without suspicious new focal air space opacity, p leural effusion, or pneumothorax seen. The cardiac silhouette size is stable and within normal limit s. Overlying bra strap. The osseous structures are intact. Cholecystectomy clips are redemonstrated . IMPRESSION: No acute cardiopulmonary process. No significant change from prior.
[2022-02-12] MEDS ORDERED: SODIUM CHLORIDE 0.9% 1,000 ML IV ONE ×2 (21:57→22:48)
[2022-02-12] MEDS ORDERED: Magnesium Replacement Protocol 1 EACH MISC MISCELLANE PRN (21:58)
[2022-02-12] MEDS ORDERED: MAGNESIUM SULFATE-D5W PMX 1 GM in DEXTROSE/WATER 1 100ML.BAG IVPB SCH (22:00)
[2022-02-12 22:30] LABS: Appearance,Urine Clear (Clear); Bilirubin,Urine Negative (Negative); Blood,Urine Negative (Negative); Color,Urine Yellow; Glucose,Urine (UA) 4+ (Negative); Ketones,Urine Negative (Negative); Leukocyte Esterase,Urine Negative (Negative); Nitrite,Urine Negative (Negative); PH, Urine 5.5 (5.0-8.0); Protein,Urine Negative (Negative); Specific Gravity,Urine 1.012 (1.001-1.035); Urobilinogen,Urine <2.0 mg/dL (<2.0)
--- NOTE | 2022-02-12 22:47 | ED ---
Recheck HPI - General Chief Complaint: Recheck/Abnormal Lab/Rx Stated Complaint: Hyperglycemia,Sent by PCP Time Seen by Provider: 02/12/22 20:17 Source: patient Mode of arrival: ambulatory Limitations: no limitations - History of Present Illness Initial Comments: Patient is a 56-year-old female presenting with chief complaint of elevated glucose. Patient states that when checking her glucose at home that he has consistently read over 500. States that she otherwise feels fine, no nausea, vomiting, abdominal pain, chest pain, difficulty breathing, palpitations, weakness, numbness, tingling, dizziness, headache, vision or hearing changes, neck pain or stiffness, dysuria, hematuria, hematochezia, melena. - Related Data Home Medications Medication Instructions Recorded Confirmed Atorvastatin [Lipitor] 10 mg PO DAILY 02/12/22 02/12/22 Ciclopirox 8% Topical Solution 1 applic TOPICAL HS 02/12/22 02/12/22 Furosemide [Lasix] 20 mg PO DAILY 02/12/22 02/12/22 Gabapentin [Neurontin] 400 mg PO TID 02/12/22 02/12/22 Ibuprofen [Motrin] 600 mg PO Q6HR PRN 02/12/22 02/12/22 Insulin Glargine,Hum.rec.anlog 20 unit SQ DAILY 02/12/22 02/12/22 [Lantus Solostar Pen] Ketoconazole 2% Cream [Nizoral 2%] 1 applic TOPICAL BID PRN 02/12/22 02/12/22 Losartan Potassium [Cozaar] 25 mg PO DAILY 02/12/22 02/12/22 Magnesium Oxide 400 mg PO DAILY 02/12/22 02/12/22 Pioglitazone HCl 30 mg PO DAILY 02/12/22 02/12/22 SILVER sulfADIAZINE Cream 1 applic TOPICAL BID PRN 02/12/22 02/12/22 [Silvadene 1% Cream] Triamcinolone 0.1% Ointment 1 applic TOPICAL BID PRN 02/12/22 02/12/22 [Kenalog 0.1% Ointment] metFORMIN HCL 1,000 mg PO BID 02/12/22 02/12/22 Previous Rx's Medication Instructions Recorded Magnesium Oxide 400 mg PO BID 7 Days #14 tablet 02/12/22 Allergies Allergy/AdvReac Type Severity Reaction Status Date / Time hydromorphone HCl Allergy Unknown Rash/Hives Verified 02/12/22 20:55 [From Dilaudid] Review of Systems ROS Statement: Those systems with pertinent positive or pertinent negative responses have been documented in the HPI. ROS Other: All systems not noted in ROS Statement are negative. Past Medical History Past Medical History: Cancer, CVA/TIA, Diabetes Mellitus, Hyperlipidemia, Hypertension, Liver Disease Additional Past Medical History / Comment(s): "past alcoholism quit year ago when she started heroin" , "hepatitis b and c", stroke in 04/2015 with right lisa ed weakness, cervical , previous ETOH abuse , previous IVDA abuse History of Any Multi-Drug Resistant Organisms: None Reported Past Surgical History: Cholecystectomy, Tonsillectomy, Tubal Ligation Additional Past Surgical History / Comment(s): esophageal surgery, cervical biopsy Past Anesthesia/Blood Transfusion Reactions: Motion Sickness Past Psychological History: Bipolar, Depression, PTSD Smoking Status: Current every day smoker Past Alcohol Use History: Rare Past Drug Use History: None Reported - Past Family History Mother Additional Family Medical History / Comment(s): "chorea bill disease" Father Family Medical History: Liver Disease Additional Family Medical History / Comment(s): alcoholic General Exam Limitations: no limitations General appearance: alert, in no apparent distress Head exam: Present: atraumatic, normocephalic, normal inspection Eye exam: Present: normal appearance Neck exam: Present: normal inspection, full ROM Respiratory exam: Present: normal lung sounds bilaterally. Absent: respiratory distress, wheezes, rales, rhonchi, stridor Cardiovascular Exam: Present: regular rate, normal rhythm, normal heart sounds. Absent: systolic murmur, diastolic murmur, rubs, gallop, clicks GI/Abdominal exam: Present: soft. Absent: distended, tenderness, guarding, rebound, rigid Neurological exam: Present: alert, oriented X3, CN II-XII intact Psychiatric exam: Present: normal affect, normal mood Skin exam: Present: warm, dry, intact, normal color. Absent: rash Course Vital Signs 02/12/22 02/12/22 02/12/22 19:58 20:21 21:30 Temperature 97.7 F Pulse Rate 88 82 88 Respiratory 16 16 16 Rate Blood Pressure 169/82 198/98 172/77 O2 Sat by Pulse 100 98 97 Oximetry 02/12/22 02/12/2202/13/22 22:04 22:23 00:55 Temperature Pulse Rate 88 82 Respiratory 16 18 16 Rate Blood Pressure 182/99 152/73 165/71 O2 Sat by Pulse 98 98 Oximetry Medical Decision Making - Medical Decision Making Patient is a 56-year-old female presenting with chief complaint of elevated glucose. Patient states that during her home checks today, her glucose has been persistently elevated reading HIGH all day today. Patient reports that she otherwise feels well, no other symptoms. She reports that she had a cervical biopsy performed yesterday, otherwise no changes in her routine or medications. Physical examination is unremarkable. Glucose in triage was 428. Lab work shows sodium 135, chloride 95, CO2 32, anion gap 8, BUN 18, glucose 319. Plasma lactic acid 3.6. Magnesium 1.4. Mild transaminitis. Urine shows 4+ glucose, otherwise negative. Acetone is negative. Patient appears to be hemoconcentrated, this is likely due to poor oral intake. She is given 2 L fluid bolus here in the ER as well as IV magnesium replacement. She is sent home with oral magnesium supplements and instructed to follow-up with her PCP for magnesium recheck. Patient is agreeable with this plan. Follow-up with PCP. Report back to ER with any new or worsening symptoms. Discussed return parameters and answered all questions. Patient conveyed verbal understanding and agreed to the plan. I discussed this case in detail with my attending Dr. Glover - Lab Data Result diagrams: 02/12/22 20:50 02/12/22 20:50 Lab Results 02/12/22 02/12/22 02/12/22 Range/Units 20:01 20:50 20:50 WBC 8.2 (3.8-10.6) k/uL RBC 5.12 (3.80-5.40) m/uL Hgb 16.6 H (11.4-16.0) gm/dL Hct 46.6 H (34.0-46.0) % MCV 91.0 (80.0-100.0) fL MCH 32.5 (25.0-35.0) pg MCHC 35.7 (31.0-37.0) g/dL RDW 12.9 (11.5-15.5) % Plt Count 94 L (150-450) k/uL MPV 8.0 Neutrophils % 66 % Lymphocytes % 26 % Monocytes % 5 % Eosinophils % 1 % Basophils % 1 % Neutrophils # 5.4 (1.3-7.7) k/uL Lymphocytes # 2.1 (1.0-4.8) k/uL Monocytes # 0.4 (0-1.0) k/uL Eosinophils # 0.1 (0-0.7) k/uL Basophils # 0.1 (0-0.2) k/uL Sodium 135 L (137-145) mmol/L Potassium 4.1 (3.5-5.1) mmol/L Chloride 95 L (98-107) mmol/L Carbon Dioxide 32 H (22-30) mmol/L Anion Gap 8 mmol/L BUN 18 H (7-17) mg/dL Creatinine 0.58 (0.52-1.04) mg/dL Est GFR (CKD-EPI)AfAm >90 (>60 ml/min/1.73 sqM) Est GFR (CKD-EPI)NonAf >90 (>60 ml/min/1.73 sqM) Glucose 319 H (74-99) mg/dL POC Glucose (mg/dL) 428 H (70-110) mg/dL POC Glu Log Scaler ID Bridget Garrison Lactic Ac Sepsis Rflx Plasma Lactic Acid Jean (0.7-2.0) mmol/L Calcium 9.0 (8.4-10.2) mg/dL Phosphorus 3.7 (2.5-4.5) mg/dL Magnesium 1.4 L (1.6-2.3) mg/dL Total Bilirubin 0.6 (0.2-1.3) mg/dL AST 53 H (14-36) U/L ALT 69 H (4-34) U/L Alkaline Phosphatase 109 (38-126) U/L Total Protein 7.2 (6.3-8.2) g/dL Albumin 3.9 (3.5-5.0) g/dL Urine Color Urine Appearance (Clear) Urine pH (5.0-8.0) Ur Specific [place] (1.001-1.035) Urine Protein (Negative) Urine Glucose (UA) (Negative) Urine Ketones (Negative) Urine Blood (Negative) Urine Nitrite (Negative) Urine Bilirubin (Negative) Urine Urobilinogen (<2.0) mg/dL Ur Leukocyte Esterase (Negative) Acetone, Qual Negative (Negative) 02/12/22 02/12/22 02/12/22 Range/Units 20:50 21:41 22:10 WBC (3.8-10.6) k/uL RBC (3.80-5.40) m/uL Hgb (11.4-16.0) gm/dL Hct (34.0-46.0) % MCV (80.0-100.0) fL MCH (25.0-35.0) pg MCHC (31.0-37.0) g/dL RDW (11.5-15.5) % Plt Count (150-450) k/uL MPV Neutrophils % % Lymphocytes % % Monocytes % % Eosinophils % % Basophils % % Neutrophils # (1.3-7.7) k/uL Lymphocytes # (1.0-4.8) k/uL Monocytes # (0-1.0) k/uL Eosinophils # (0-0.7) k/uL Basophils # (0-0.2) k/uL Sodium (137-145) mmol/L Potassium (3.5-5.1) mmol/L Chloride (98-107) mmol/L Carbon Dioxide (22-30) mmol/L Anion Gap mmol/L BUN (7-17) mg/dL Creatinine (0.52-1.04) mg/dL Est GFR (CKD-EPI)AfAm (>60 ml/min/1.73 sqM) Est GFR (CKD-EPI)NonAf (>60 ml/min/1.73 sqM) Glucose (74-99) mg/dL POC Glucose (mg/dL) (70-110) mg/dL POC Glu Log Scaler ID Lactic Ac Sepsis Rflx Y Plasma Lactic Acid Jean 3.6 H* (0.7-2.0) mmol/L Calcium (8.4-10.2) mg/dL Phosphorus (2.5-4.5) mg/dL Magnesium (1.6-2.3) mg/dL Total Bilirubin (0.2-1.3) mg/dL AST (14-36) U/L ALT (4-34) U/L Alkaline Phosphatase (38-126) U/L Total Protein (6.3-8.2) g/dL Albumin (3.5-5.0) g/dL Urine Color Yellow Urine Appearance Clear (Clear) Urine pH 5.5 (5.0-8.0) Ur Specific [place] 1.012 (1.001-1.035) Urine Protein Negative (Negative) Urine Glucose (UA) 4+ H (Negative) Urine Ketones Negative (Negative) Urine Blood Negative (Negative) Urine Nitrite Negative (Negative) Urine Bilirubin Negative (Negative) Urine Urobilinogen <2.0 (<2.0) mg/dL Ur Leukocyte Esterase Negative (Negative) Acetone, Qual (Negative) Disposition Clinical Impression: Hyperglycemia, Hypomagnesemia Disposition: HOME SELF-CARE Condition: Good Instructions (If sedation given, give patient instructions): Hypomagnesemia (ED), Diabetic Hyperglycemia (ED) Additional Instructions: Follow-up with PCP. Report back to ER with any new or worsening symptoms. Take medication as prescribed. Follow-up with your doctor for magnesium recheck Prescriptions: Magnesium Oxide 400 mg PO BID 7 Days #14 tablet Is patient prescribed a controlled substance at d/c from ED?: No Referrals: Zabrina Pardo MD [Primary Care Provider] - 1-2 days Time of Disposition: 22:47
[2022-02-13 00:56] VITALS: BP 165/71; PULSE 82; RESP 16
== END 2022-02-13 00:55 | disposition home or self-care (01) ==
LOC: EC 18:17
DX: E11.65 Type 2 diabetes mellitus with hyperglycemia (principal); E83.42 Hypomagnesemia; E78.5 Hyperlipidemia, unspecified; I10 Essential (primary) hypertension; F32.A Depression, unspecified; F17.200 Nicotine dependence, unspecified, uncomplicated; Z88.5 Allergy status to narcotic agent; Z79.4 Long term (current) use of insulin; Z79.899 Other long term (current) drug therapy
CPT/HCPCS: 36415; 93005; 80053; 82009; 83605; 83735; 84100; 85025; 81003; 71046; 99285; 96365; 96361 ×5; J3475

== ENCOUNTER → 2022-07-02 | Outpatient (CLI) | payer OTHER ==
--- NOTE | 2022-07-02 13:47 | CTL ---
EXAMINATION TYPE: CT Low Dose Lung DATE OF EXAM ORDERED: 07/02/2022 COMPARISON: None HISTORY: . Low Dose CT Lung Screening CT DLP: 79.[address] CTDI: 2.3 mGy IV CONTRAST USED: None. SCREENING VISIT: First visit COMPARISON: None. TECHNIQUE: Low dose computed tomography scan was performed through the chest at 1 millimeter thick se ctions and reconstructed images in the coronal plane at [address] DIAGNOSTIC QUALITY: Satisfactory FINDINGS: LUNG NODULES: 11 mm predominantly solid nodule left upper lobe with surrounding groundglass density i mage 147 sequence 3. Additional small solid nodule adjacent to the fissure right lower lobe measuring 5 mm image 182 sequence 3. LUNGS: COPD: Severity: Mild Fibrosis: Severity:None Lymph nodes: None Other findings: None RIGHT PLEURAL SPACE: Effusion: None Calcification: None Thickening: None Pneumothorax: None LEFT PLEURAL SPACE: Effusion: None Calcification: None Thickening: None Pneumothorax: None HEART: Heart Size: Mildly enlarged Coronary calcification: Mild Pericardial effusion: None OTHER FINDINGS: Upper abdomen: No significant abnormality Bony thorax: Degenerative changes Supraclavicular region: No significant abnormalityOther: No significant abnormalityI IMPRESSION: 1. Suspicious solid nodule left upper lobe. FOLLOW UP CT CHEST RECOMMENDATION: PET CT recommended CT LUNG RAD: LUNG RAD CATEGORY 4A suspicious
== END | disposition home or self-care (01) ==
LOC: RADCTMAIN 12:55
PROVIDERS: ATTEND Family Medicine
DX: Z12.2 Encounter for screening for malignant neoplasm of respiratory organs (principal); F17.210 Nicotine dependence, cigarettes, uncomplicated
CPT/HCPCS: 71271

== ENCOUNTER → 2022-07-03 | Outpatient (CLI) | payer OTHER ==
[2022-07-03 20:14] LABS: Basophils # (A) 0.05 X 10*3/uL (0.00-0.10); Basophils % (A) 0.6 %; Eosinophils # (A) 0.16 X 10*3/uL (0.04-0.35); Eosinophils % (A) 2.1 %; HCT 40.6 % (37.2-46.3); HGB 13.2 g/dL (12.0-15.0); Immature Grans, Automated 0.1 %; Lymphocytes # (A) 2.73 X 10*3/uL (0.90-5.00); MCH 30.2 pg (27.0-32.0); MCHC 32.5 g/dL (32.0-37.0); MCV 92.9 fL (80.0-97.0); Mean Platelet Volume 10.3 fL (9.5-12.2); Monocytes # (A) 0.66 X 10*3/uL (0.20-1.00); Monocytes % (A) 8.5 %; NRBC Per 100 WBC 0 /100 WBCS (0.0-0.0); Neutrophils # (A) 4.18 X 10*3/uL (1.80-7.70); Neutrophils % (A) 53.7 %; Platelet Count 150 X 10*3/uL (140-440); RBC 4.37 X 10*6/uL (4.10-5.20); RDW 13.2 % (11.5-14.5); WBC 7.79 X 10*3/uL (4.50-10.00)
[2022-07-03 20:27] LABS: African American GFR (CKD) 112.5 (60.0-200.0); Albumin 3.8 g/dL (3.8-4.9); Albumin/Globulin Ratio 1.05 (1.60-3.17); Anion Gap 10.3 mmol/L (10.00-18.00); BUN/Creat Ratio 16.07 Ratio (12.00-20.00); Blood Urea Nitrogen 10.7 mg/dL (9.0-27.0); Calcium 9.4 mg/dL (8.7-10.3); Carbon Dioxide 27.3 mmol/L (20.0-27.5); Globulin 3.7 g/dL (1.6-3.3); Non-African American GFR(CKD) 97.1 (60.0-200.0); Potassium 4.4 mmol/L (3.5-5.5); Total Bilirubin 0.6 mg/dL (0.30-1.20); Total Protein 7.5 g/dL (6.2-8.2)
--- NOTE | 2022-07-06 15:28 | MM ---
Reason for Exam: Screening (asymptomatic). Last mammogram was performed 9 year(s) and 9 month(s) ago. Patient History: Menarche at age 11. First Full-Term at age 18. Postmenopausal. Maternal cousin had breast cancer. Maternal aunt had breast cancer. Risk Values: Mima 5 year model risk: 1.2%. NCI Lifetime model risk: 6.9%. Prior Study Comparison: 10/10/2012 Bilateral Screening Mammogram, [facility]. Tissue Density: The breast tissue is heterogeneously dense. This may lower the sensitivity of mammography. Findings: Analyzed By CAD. Nodular density upper outer left breast approximately 8 cm from the nipple measuring 1 cm in size. Ultrasound is recommended. The right breast is free of nodule or mass. No suspicious calcifications present. Overall Assessment: Incomplete: need additional imaging evaluation, BI-RAD 0 Management: Diagnostic Breast Ultrasound of the left breast. A clinical breast exam by your physician is recommended on an annual basis and results should be correlated with mammographic findings. Electronically signed and approved by: Saad Benavides M.D. Radiologis
== END | disposition home or self-care (01) ==
LOC: RADMAMWWP 14:31
PROVIDERS: ATTEND Family Medicine
DX: Z12.31 Encounter for screening mammogram for malignant neoplasm of breast (principal); B18.1 Chronic viral hepatitis B without delta-agent; Z78.0 Asymptomatic menopausal state; Z80.3 Family history of malignant neoplasm of breast
CPT/HCPCS: 77063; 77067; 80053; 85025

== ENCOUNTER → 2022-07-10 | Outpatient (CLI) | payer OTHER ==
--- NOTE | 2022-07-10 13:34 | USB ---
Reason for Exam: Additional evaluation requested from abnormal screening. Patient History: Menarche at age 11. First Full-Term at age 18. Postmenopausal. Maternal cousin had breast cancer. Maternal aunt had breast cancer. Risk Values: Mima 5 year model risk: 1.2%. NCI Lifetime model risk: 6.9%. Technique: Method: Targeted. Patient Position: Supine. Prior Study Comparison: 10/10/2012 Bilateral Screening Mammogram, [facility]. 07/03/2022 Bilateral MG 3D screening mammo w/cad, [facility]. Findings: The upper outer quadrant of the left breast, the axilla of the left breast and the retroareolar of the left breast were scanned. Imaged: Ultrasound imaging of: All 4 quadrants, the retroareolar region and axilla. Irregular shaped hypoechoic mass 8 cm from nipple at 3:00 measuring 8 x 10 x 4 mm. Overall Assessment: Suspicious, BI-RAD 4 Management: Ultrasound Core Biopsy of the left breast. A clinical breast exam by your physician is recommended on an annual basis and results should be correlated with mammographic findings. This exam should not preclude additional follow-up of suspicious palpable abnormalities. Results were given to the patient verbally at the time of exam. Electronically signed and approved by: Yonas Edwards DO
== END | disposition home or self-care (01) ==
LOC: RADUSWWP 13:02
PROVIDERS: ATTEND Family Medicine
DX: R92.8 Other abnormal and inconclusive findings on diagnostic imaging of breast (principal); Z78.0 Asymptomatic menopausal state; Z80.3 Family history of malignant neoplasm of breast

== ENCOUNTER → 2022-07-24 | Outpatient (CLI) | payer OTHER ==
--- NOTE | 2022-07-24 15:51 | PE ---
EXAMINATION TYPE: PET CT fusion skull to thigh DATE OF EXAM: 07/24/2022 COMPARISON: Low-dose lung screening CT July 02 2022 HISTORY: TECHNIQUE: Following the intravenous administration of mCi of F-18 FDG, whole body images are perfor med from the skull base to the midthigh. Images are reviewed on the computer in the coronal, axial, and sagittal planes. Reconstructed rotating images are created on independent workstation and review ed on the computer. A localization and attenuation correction CT is performed in conjunction with t he PET scan. SCAN: Initial Scan FINDINGS: SKULL BASE AND NECK: No areas of abnormal hypermetabolic uptake. CHEST, MEDIASTINUM, AND HILAR REGION: Mild underlying emphysematous change redemonstrated. Focus of g roundglass opacity possible parenchymal postinflammatory scarring redemonstrated anterior left midlun g axial image 88 redemonstrated with adjacent 9 mm nodule or nodular consolidation axial image 87 hav ing mild abnormal hypermetabolic uptake, max SUV is 2.08 on image 87. Finding has similar appearance to recent low-dose lung screening CT. No additional areas of abnormal hypermetabolic uptake. ABDOMEN AND PELVIS: Normal excretion is present. Nonspecific bowel uptake in the left pelvis. No susp icious abnormal hypermetabolic uptake. OSSEOUS STRUCTURES: No abnormal hypermetabolic uptake. OTHER CT: Mild calcified plaque bilateral carotid bulb level. Moderate coronary artery calcification. Cholecystectomy clips are seen. Occasional calcifications scattered throughout the spleen consistent with product of all granulomatous disease. Anteverted uterus. IMPRESSION: No definitive abnormal increased hypermetabolic uptake (Max SUV greater than 2.5) to sugg est malignancy. Findings favor postinflammatory etiology. Neoplasm however cannot be entirely exclude d. Advise at minimum short term CT and/or PET CT follow-up in 3-6 months time to reassess.
== END | disposition home or self-care (01) ==
LOC: RADPETMAIN 10:38
PROVIDERS: ATTEND Family Medicine
DX: R93.89 Abnormal findings on diagnostic imaging of other specified body structures (principal)
CPT/HCPCS: 78815; A9552

== ENCOUNTER → 2022-08-12 | Day surgery (SDC) | payer OTHER ==
--- NOTE | 2022-08-12 12:41 | MM ---
Reason for Exam: Post Procedure Mammogram. Last screening mammogram was performed 1 month(s) ago. Patient History: Menarche at age 11. First Full-Term at age 18. Postmenopausal. Maternal cousin had breast cancer. Maternal aunt had breast cancer. Risk Values: Mima 5 year model risk: 1.2%. NCI Lifetime model risk: 6.9%. Tissue Density: Left: The breast tissue is heterogeneously dense. This may lower the sensitivity of mammography. Overall Assessment: Post procedure mammogram for marker placement Management: Post Mammogram for Omar Placement of the left breast. Electronically signed and approved by: Yonas Edwards DO
--- NOTE | 2022-08-17 08:44 | USB ---
Risk Values: Mima 5 year model risk: 1.2%. NCI Lifetime model risk: 6.9%. Prior Study Comparison: 10/10/2012 Bilateral Screening Mammogram, [facility]. 07/03/2022 Bilateral MG 3D screening mammo w/cad, [facility]. Pathology Description: Location: 3 o'clock. T3 coil hydromark deployed The ultrasound guided cyst aspiration procedure was explained to the patient. The risks, benefits, alternatives were discussed. An informed consent was then obtained. A time out was performed. The patient was placed in supine positioning for imaging and for the procedure. The overlying skin was prepped with chlorhexidine and sterilely draped in usual sterile fashion. 5 ml 1% lidocaine was used as anesthetic into the skin and deeper breast tissue up to area of concern in the left breast 3 o'clock breast, 8 cm from nipple. A 20-gauge spinal needle was used to aspirate the cyst. After this a second cyst was located nearby and this is also aspirated with a 20-gauge spinal needle. A T3 clip was placed. Postprocedure mammogram: The patient was transferred to mammography for physician ordered post procedure mammogram for clip placement verification. The clip is in the expected region of the biopsy. The patient tolerated the procedure well without any immediate complication. The patient was discharged to home in stable condition. Impression: Successful ultrasound guided cyst aspiration left breast. Cytology pending. Pathology Results: Result: Benign, Benign cyst with blood. LEFT BREAST, THREE O'CLOCK, ASPIRATE: Hypocellular specimen consisting of blood. No cytologically malignant cells identified. Overall Assessment: Benign Management: Diagnostic Breast Ultrasound of the left breast in 6 months. Electronically signed and approved by: Yonas Edwards DO
== END ==
LOC: RADUSWWP 10:00
PROVIDERS: ATTEND Family Medicine
DX: R92.8 Other abnormal and inconclusive findings on diagnostic imaging of breast (principal)
CPT/HCPCS: 88305; 88173; 77065; 76942; 19000; A4648

== ENCOUNTER → 2022-12-09 | Outpatient (CLI) | payer OTHER ==
[2022-12-09 12:17] LABS: African American GFR (CKD) >90 (>60 ml/min/1.73 sqM); Blood Urea Nitrogen 9 mg/dL (7-17); Non-African American GFR(CKD) >90 (>60 ml/min/1.73 sqM)
--- NOTE | 2022-12-10 08:57 | CT ---
EXAMINATION TYPE: CT chest w con CT DLP: 350.1 mGycm, Automated exposure control for dose reduction was used. DATE OF EXAM: 12/09/2022 12:55 PM COMPARISON: Pet/CT 07/16/2022 CLINICAL INDICATION:Female, 57 years old with history of R91.1 LUNG NODULE; PHH, lung nodule TECHNIQUE: Multiple axial images were obtained through the chest. Sagittal and coronal reformats were created for review. Contrast used:100 mL of Isovue 300 with IV Contrast (None if empty) Oral contrast used: (None if empty) FINDINGS: LUNGS/ PLEURA: Centrilobular emphysema changes throughout the lungs. Stable nodular densities along t he near the right major fissure. Left upper lung pulmonary nodule now measuring 10 mm previously may have been 8-9 mm and a more solid appearance on today's exam. AIRWAY: Patent and unremarkable. HEART: Size within normal limits. MEDIASTINUM: No gross evidence of adenopathy. VASCULATURE: No aortic aneurysm. MUSCULOSKELETAL: No acute osseous abnormalities SOFT TISSUES/LYMPH NODES: Unremarkable. LOWER NECK: No significant findings. UPPER ABDOMEN: The gallbladder surgically absent. Mild hepatic steatosis. IMPRESSION: 1. Left upper lung pulmonary nodule appears more solid on today's exam. Findings are suspicious for malignancy and tissue sampling should be performed even with low FDG values on prior PET which can be seen in setting of bronchoalveolar carcinoma. 2. Moderate emphysema.
== END | disposition home or self-care (01) ==
LOC: RADCTMAIN 11:06
PROVIDERS: ATTEND Internal Medicine Critical Care Medicine
DX: J43.2 Centrilobular emphysema (principal); R91.1 Solitary pulmonary nodule
CPT/HCPCS: 82565; 84520; 71260; 36415; Q9967

== ENCOUNTER 2023-01-07 10:55 | Day surgery (SDC) | payer OTHER ==
[2022-12-31 15:49] VITALS: BMI 29.9
[~2023-01-07 10:55] MED LIST: DEXAMETHASONE SOD PHOSPHATE 4 MG/ML 1 ML VIAL IV ONE; LACTATED RINGERS 1,000 ML IV SCH; LIDOCAINE 1% (10MG/ML) FOR IV START INTRADERMA PRN; ONDANSETRON 4 MG/2 ML VIAL IVP ONE
[2023-01-07 11:41] LABS: Glucose,Whole Blood 149 mg/dL (70-110)
--- NOTE | 2023-01-07 11:58 | CT ---
EXAMINATION TYPE: CT chest wo con DATE OF EXAM: 01/07/2023 COMPARISON: 12/09/2022 HISTORY: pre-op bronch CT DLP: 378.[address] of the chest was performed with lung and mediastinal window settings submitted. The la ck of contrast limits evaluation of the vascular, mediastinal and parenchymal structures including th e upper abdomen. LUNGS: Left upper lobe pulmonary nodule is redemonstrated and measures 1.3 x 1.2 cm versus 1 cm previ ously. Surrounding groundglass density noted. No additional nodule is seen. The lungs are otherwise c lear. Moderate emphysematous changes noted. MEDIASTINUM/JAGRUTI: Thoracic aorta is of normal caliber with limited evaluation given lack of contrast . The heart is not enlarged. No evidence for mediastinal mass. No lymph nodes greater than 1cm. UPPER ABDOMEN: No significant abnormality is seen. OTHER: No significant other abnormality. IMPRESSION: 1. Suspicious nodule left upper lobe. Tissue diagnosis is recommended.
[2023-01-07] MEDS ORDERED: MIDAZOLAM 2 MG/2 ML VIAL ONE (12:14)
[2023-01-07] MEDS ORDERED: ROCURONIUM 10 MG/ML (5 ML VIAL) IV ONE (12:14)
[2023-01-07] MEDS ORDERED: NEOSTIGMINE 1 MG/ML 10 ML VIAL ONE (12:14)
[2023-01-07] MEDS ORDERED: PROPOFOL 10 MG/ML 20 ML VIAL IV ONE (12:14)
[2023-01-07] MEDS ORDERED: GLYCOPYRROLATE 0.2 MG/ML 2 ML VIAL ONE (12:14)
[2023-01-07] MEDS ORDERED: fentaNYL (PF) 50 MCG/ML 2 ML AMP ONE (12:14)
[2023-01-07] MEDS ORDERED: LIDOCAINE 1% INJ 10MG/ML (20 ML MDV) ONE (12:14)
[2023-01-07] MEDS ORDERED: SUCCINYLCHOLINE CHLORIDE 200 MG/10 ML VIAL IV ONE (12:14)
--- NOTE | 2023-01-07 13:41 | FL ---
EXAMINATION TYPE: FL bronchoscopy DATE OF EXAM: 01/07/2023 CLINICAL HISTORY: BRONCHOSCOPY WITH ION ROBOT TECHNIQUE: Fluoroscopy. COMPARISON: None. FINDINGS: Ion bronch with Artinian. 1 image saved. 2 min 27 sec fluoro time. 10.556 DAP IMPRESSION: As Above.
[2023-01-07 13:46] VITALS: RESP 16; TEMP 97
--- NOTE | 2023-01-07 14:01 | P.PCN ---
Date of Procedure: 01/07/23 Preoperative Diagnosis: DENNISE nodule Operative Findings: Preoperative Diagnosis: Left upper lobe nodule Postoperative Diagnosis: Left upper lobe nodule Procedure(s) Performed: Flexible bronchoscopy Robotic-assisted bronchoscopy and addition to radial ultrasound evaluation of the left upper lobe nodule Robotic-assisted transbronchial needle aspirate, transbronchial biopsies, transbronchial brushing of the left upper lobe nodule in addition to a bronchioloalveolar lavage Anesthesia: DION Surgeon: Michelle Lucia Estimated Blood Loss (ml): 0 Pathology: other Condition: stable Disposition: same day Operative Findings: A physical exam was performed. Informed consent was obtained from the patient after explaining all the risks (pneumothorax, life threatening bleeding, infection and adverse effects due to medications), benefits and alternatives to the procedure which the patient appeared to understand and so stated. The patient was connected to the monitoring devices. General anesthesia was induced and the patient was intubated by anesthesia. A final timeout was performed and the procedure confirmed by the attending staff bronchoscopist. The bronchoscope was inserted and the airway examined. The flexible bronchoscope was removed and the robotic bronchoscope was inserted. Registration was completed. I next guided the robotic bronchoscope using the navigation system into the left upper lobe anterior segment. Once in proper position, the bronchoscope was frozen. The radial EBUS probe was placed through the bronchoscope and confirmed abnormal u/s images vs normal lung. A needle was placed through the working channel and under fluoroscopic guidance, we sampled the area thought to have the mass twice. We then used a cloud biopsy pattern with ultrasound confirmation for 2 additional passes with the needle. U/S evaluation was then used to reconfirm location. Forceps were next introduced through working channel and extended the appropriate distance and 3 transbronchial biopsies were performed using fluoroscopic guidance. The u/s probe was then reinserted to confirm location. When confirmed this process was repeated for a total of 8 transbronchial biopsies. After reassessment with EBUS, a brush was placed through the extendable working channel for 1 pass with fluoroscopic guidance. U/S evaluation was then used to confirm location. 40ml of saline was then instilled into the area of the lesion. The robotic bronchoscope was removed and the airway inspected with a flexible bronchoscope and 10 ml of effluent from the BAL was collected. The aspirate was bloody and ultimately declotted and based on that, the sample was discarded. Fluoroscopic check for pneumothorax was negative upon completion of the procedure. There was 0 ml blood loss with the procedure. Flex bronchoscope was inserted and regular suctioning was done. At the completion of the procedure, no residual secretions or bloody material within the airway. The bronchoscope was removed. The patient was extubated. FINDINGS: 1.The airways appeared normal 2 Successful navigation, ultrasonographic identification, and biopsies of left upper lobe nodule 3.The the radial ultrasound view was (Concentric/Eccentric)}. RECOMMENDATIONS: Await pathology and cytology results The referring physician will be alerted to the results when available. The patient was advised to follow up with the referring physician with the biopsy results Patient will be called with results.
--- NOTE | 2023-01-07 14:30 | XR ---
EXAMINATION TYPE: XR chest 1V portable DATE OF EXAM: 01/07/2023 COMPARISON: 02/13/2020 HISTORY: Post right TECHNIQUE: Single frontal view of the chest is obtained. FINDINGS: A limited inspiration. There is no sizable pneumothorax. There is no pleural effusion or c onsolidation. No overt failure. Left upper lobe pulmonary nodule noted by recent CT chest appears obs cured. IMPRESSION: No pneumothorax. Previously noted left upper lobe pulmonary nodule by CAT scan not as we ll seen by standard x-ray.
[2023-01-07 14:42] VITALS: BP 137/83; PULSE 78
== END 2023-01-07 15:16 | disposition home or self-care (01) ==
LOC: ORWHC2ENDO 10:55
PROVIDERS: ATTEND Internal Medicine Critical Care Medicine
DX: C34.12 Malignant neoplasm of upper lobe, left bronchus or lung (principal)
CPT/HCPCS: 88305; 88173; 88342; 88341; 87070; 87205; 87116; 87102; 87206; 71045; 71250; 31628; 31633; 31623; 31624; J2250; J0330; J2710; J2001; J3010; J2704; S2900

== ENCOUNTER → 2023-01-14 | Outpatient (CLI) | payer OTHER ==
[2023-01-14 14:57] LABS: Partial Thromboplastin Time 24.9 sec (22.0-30.0); Prothrombin Time 11.3 sec (10.0-12.5)
[2023-01-14 21:22] LABS: Appearance,Urine Cloudy (Clear); Bilirubin,Urine Small (Negative); Blood,Urine Negative (Negative); Color,Urine Dark Yellow (Yellow); Ketones,Urine Trace (Negative); Nitrite,Urine Positive (Negative); PH, Urine 5.5; Specific Gravity,Urine 1.017 (1.001-1.030)
[2023-01-14 21:25] LABS: Bacteria,Urine 4+ (None Seen)
[2023-01-14 22:30] LABS: Basophils # (A) 0.06 X 10*3/uL (0.00-0.10); Basophils % (A) 0.9 %; Eosinophils # (A) 0.13 X 10*3/uL (0.04-0.35); Eosinophils % (A) 1.9 %; HCT 45.5 % (37.2-46.3); HGB 14.5 d/dL (12.0-15.0); Lymphocytes # (A) 2.59 X 10*3/uL (0.90-5.00); Lymphocytes % (A) 36.9 %; MCH 31.5 pg (27.0-32.0); MCHC 31.9 d/dL (32.0-37.0); MCV 98.9 FL (80.0-97.0); Mean Platelet Volume 11.5 FL (9.5-12.2); Monocytes # (A) 0.47 X 10*3/uL (0.20-1.00); Monocytes % (A) 6.7 %; NRBC Per 100 WBC 0 X 10*3/uL (0.00-0.01); Neutrophils # (A) 3.75 X 10*3/uL (1.80-7.70); Neutrophils % (A) 53.5 %; Platelet Count 145 X 10*3/uL (140-440); WBC 7.01 X 10*3/uL (4.50-10.00)
[2023-01-14 23:20] LABS: Blood Urea Nitrogen 6.2 mg/dL (9.0-27.0); Chloride 102 mmol/L (96-109); Glucose 182 mg/dL (70-110); Potassium 4.3 mmol/L (3.5-5.5); Sodium 141 mmol/L (135-145)
== END | disposition home or self-care (01) ==
LOC: LABPAT 12:36
PROVIDERS: ATTEND Thoracic Surgery (Cardiothoracic Vascular Surgery)
DX: Z01.818 Encounter for other preprocedural examination (principal); C34.90 Malignant neoplasm of unspecified part of unspecified bronchus or lung; I44.4 Left anterior fascicular block; R94.31 Abnormal electrocardiogram [ECG] [EKG]
CPT/HCPCS: 36415; 80051; 81001; 82565; 82947; 84520; 85025; 85610; 85730; 86850; 86900; 86901; 87077; 87086; 87186; 93005

== ENCOUNTER → 2023-02-11 | Outpatient (CLI) | payer OTHER ==
[~2023-02-11] MED LIST changes: -DEXAMETHASONE SOD PHOSPHATE 4 MG/ML 1 ML VIAL IV ONE; -LACTATED RINGERS 1,000 ML IV SCH; -LIDOCAINE 1% (10MG/ML) FOR IV START INTRADERMA PRN; -ONDANSETRON 4 MG/2 ML VIAL IVP ONE; +REGADENOSON 0.4 MG/5 ML SYRINGE IV PRN
--- NOTE | 2023-02-11 12:27 | CA ---
Lexiscan Nuclear Stress Test Report Name: Denny De Exam Date: 02/11/2023 10:37 Exam Location: [facility] Ht (in): 65 Wt (lb): 180 BSA: 1.89 Ordering Phys: Mike Crooks MD Referring Phys: MORIS,, Technologist: MIKY ZIMMERMAN Age: 57 Gender: F : 1965 Procedure CPT: Indications: Z86.73 PRSNL HX OF TIA (TIA), AND CEREB INFRC W/O ICD-10 Codes: Patient History: KAY, HTN, DM, CVA, CHOL, FAMILY HX, TOB, COPD Medications: LIPITOR Meds past 24 hrs: Pretest Chest Pain: STRESS TEST Lexiscan Protocol Exercise Duration (min:sec): 02:[address] Depressions (mm): Angina Score: Page Score: Resting HR (bpm): 82 Peak HR (bpm): 87 Resting BP (mmHg): 179 / 86 Peak BP (mmHg): 182 / 82 MPHR: 161 Target HR: 137 % MPHR: 54 METS: 1.0 Total Dose: Peak Dose: Atropine: Double Product: 41327 BP Response: Stress Termination: END OF DOSAGE Stress Symptoms: No chest pain or symptoms Stress Summary: ECG ANALYSIS Resting ECG: Stress ECG: CONCLUSIONS Baseline EKG revealed a normal sinus rhythm with minor nonspecific ST abnormality. With Lexiscan administration the heart rate changed from 81-87 bpm and blood pressure changed from 179/86-149/79. Patient was asymptomatic and EKG was unremarkable. By EKG criteria even though there were minor resting changes this is a unremarkable stress test by EKG criteria. The nuclear scan results which are more pertinent will be reported by the radiologist. Dr. Karolyn Perez MD (Electronically Signed) Final Date: 11 February 2023 12:26
--- NOTE | 2023-02-11 14:12 | NM ---
EXAMINATION TYPE: NM stress lexiscan cardiolite DATE OF EXAM: 02/11/2023 COMPARISON: NONE CLINICAL INDICATION: Female, 57 years old with history of Z86.73 PRSNL HX OF TIA (TIA), AND CEREB INF RC W/O; TECHNIQUE: After the intravenous administration of 9.8 mCi Tc 99m Sestamibi - Cardiolite resting SPE CT images acquired 71 minutes post injection. The patient received 0.4mg Lexiscan, 25.4 mCi Tc 99m Sestamibi - Stress images obtained [address] injection FINDINGS: Review of stress and rest SPECT images demonstrates no distinct perfusion abnormality. Gated analysi s shows normal wall motion with an estimated left ventricular ejection fraction of 65 %. IMPRESSION: No scintigraphic evidence for reversible ischemia.
== END | disposition home or self-care (01) ==
LOC: RADNMMAIN 08:48
PROVIDERS: ATTEND Internal Medicine Interventional Cardiology
DX: I10 Essential (primary) hypertension (principal); E11.9 Type 2 diabetes mellitus without complications; J44.9 Chronic obstructive pulmonary disease, unspecified; E78.00 Pure hypercholesterolemia, unspecified; I63.9 Cerebral infarction, unspecified; Z86.73 Personal history of transient ischemic attack (TIA), and cerebral infarction without residual deficits
CPT/HCPCS: 93017; 78452; A9500; J2785

== ENCOUNTER → 2023-03-05 | Outpatient (CLI) | payer OTHER ==
[2023-03-05 13:39] LABS: INR 1.1 (<1.2); Partial Thromboplastin Time 24.4 sec (22.0-30.0); Prothrombin Time 11.9 sec (10.0-12.5)
[2023-03-05 18:27] LABS: Basophils # (A) 0.06 X 10*3/uL (0.00-0.10); Eosinophils # (A) 0.13 X 10*3/uL (0.04-0.35); Eosinophils % (A) 2.2 %; HCT 43.4 % (37.2-46.3); HGB 14.5 g/dL (12.0-15.0); Lymphocytes # (A) 2.17 X 10*3/uL (0.90-5.00); Lymphocytes % (A) 36.6 %; MCHC 33.4 g/dL (32.0-37.0); MCV 95.8 FL (80.0-97.0); Mean Platelet Volume 11.3 FL (9.5-12.2); Monocytes # (A) 0.47 X 10*3/uL (0.20-1.00); Monocytes % (A) 7.9 %; NRBC Per 100 WBC 0 X 10*3/uL (0.00-0.01); Neutrophils # (A) 3.08 X 10*3/uL (1.80-7.70); Platelet Count 112 X 10*3/uL (140-440); RBC 4.53 X 10*6/uL (4.10-5.20); RDW 12.8 % (11.5-14.5); WBC 5.93 X 10*3/uL (4.50-10.00)
[2023-03-05 18:55] LABS: Blood Urea Nitrogen 9.1 mg/dL (9.0-27.0); Carbon Dioxide 26.8 mmol/L (21.6-31.8); Chloride 101 mmol/L (96-109); Glucose 329 mg/dL (70-110); Sodium 136 mmol/L (135-145)
[2023-03-06 00:30] LABS: Appearance,Urine Cloudy (Clear); Color,Urine Yellow; Protein,Urine Negative (Negative); Specific Gravity,Urine 1.015 (1.001-1.035)
[2023-03-06 00:31] LABS: Bilirubin,Urine Negative (Negative); Blood,Urine Negative (Negative); Glucose,Urine (UA) 3+ (Negative); Ketones,Urine Negative (Negative); Leukocyte Esterase,Urine Negative (Negative); Nitrite,Urine Negative (Negative)
[2023-03-06 00:41] LABS: Bacteria,Urine Rare /hpf; Calcium Oxalate Crystals,Urine Occasional /hpf; Mucus,Urine Rare /hpf; RBC,Urine 2 /hpf (0-5); Squamous Epithelial Cell,Urine 21 /hpf (0-4); WBC,Urine 3 /hpf (0-5)
== END | disposition home or self-care (01) ==
LOC: LABWHC1 12:22
PROVIDERS: ATTEND Thoracic Surgery (Cardiothoracic Vascular Surgery)
DX: Z01.818 Encounter for other preprocedural examination (principal); C34.90 Malignant neoplasm of unspecified part of unspecified bronchus or lung; R94.31 Abnormal electrocardiogram [ECG] [EKG]
CPT/HCPCS: 36415; 80051; 81001; 82565; 82947; 84520; 85025; 85610; 85730; 87086; 93005

== ENCOUNTER → 2023-03-09 | Outpatient (CLI) | payer OTHER | END | disposition home or self-care (01) | LOC: LABPAT 12:17 | PROVIDERS: ATTEND Surgery | DX: Z01.812 Encounter for preprocedural laboratory examination (principal); C34.90 Malignant neoplasm of unspecified part of unspecified bronchus or lung | CPT/HCPCS: 36415; 86850; 86900; 86901 ==

== ENCOUNTER 2023-03-11 08:13 | Inpatient (IN) | payer OTHER ==
[2023-03-11 08:41] LABS: Glucose,Whole Blood 471 mg/dL (70-110)
[2023-03-11] MEDS ORDERED: SODIUM CHLORIDE 0.9% 1,000 ML IV STA (08:53)
[2023-03-11] MEDS: IPRATROPIUM-ALBUTEROL 3 ML NEB INHALATION STA ×2 (09:13→11:45)
--- NOTE | 2023-03-11 09:51 | ED ---
General Adult HPI - General Chief complaint: Recheck/Abnormal Lab/Rx Stated complaint: blood sugar Time Seen by Provider: 03/11/23 08:40 Source: patient, RN notes reviewed, old records reviewed Mode of arrival: wheelchair Limitations: no limitations - History of Present Illness Initial comments: Patient is a 57-year-old female presents hematuria department from preop for hyperglycemia. Has a history of lung cancer and was due to have left upper lobe resection by Dr. June. Was sent here due to hypoglycemia with sugars in the 500s. Did not take her normal insulin this morning. Has a history of drug use. Denies any complaints at this time. Presents for further evaluation. Denies fevers, chills, chest pain, shortness breath, abdominal pain, nausea, vomiting. No fevers. - Related Data Home Medications Medication Instructions Recorded Confirmed Atorvastatin [Lipitor] 10 mg PO DAILY 02/12/22 03/11/23 Furosemide [Lasix] 20 mg PO DAILY 02/12/22 03/11/23 Gabapentin 800 mg PO TID 05/22/22 03/11/23 Dulaglutide [Trulicity] 1.5 mg SQ TU 12/31/22 03/11/23 Insulin Glargine,Hum.rec.anlog 15 unit SQ DAILY 12/31/22 03/11/23 [Lantus Solostar Pen] Fluticasone/Umeclidin/Vilanter 1 puff INHALATION RT-DAILY 03/09/23 03/11/23 [Trelegy Ellipta 100-62.5-25] LORazepam [Ativan] 0.5 mg PO BID PRN 03/09/23 03/11/23 Previous Rx's Medication Instructions Recorded Losartan Potassium [Cozaar] 50 mg PO DAILY 30 Days #60 tab 05/27/22 Allergies Allergy/AdvReac Type Severity Reaction Status Date / Time hydromorphone HCl Allergy Unknown Rash/Hives/ Verified 03/11/23 08:35 [From Dilaudid] Itchy Review of Systems ROS Statement: Those systems with pertinent positive or pertinent negative responses have been documented in the HPI. Review of Systems: CONST: Denies fever EYES: Denies blurry vision ENT: Denies nasal congestion C/V: Denies Chest pain RESP: Denies shortness of breath GI: Denies abdominal pain : Denies dysuria SKIN: Denies rash. MSK: Denies joint pain. NEURO: Denies headache ROS Other: All systems not noted in ROS Statement are negative. Past Medical History Past Medical History: Cancer, COPD, CVA/TIA, Diabetes Mellitus, Hyperlipidemia, Hypertension, Liver Disease, Skin Disorder, Vascular Disorder Additional Past Medical History / Comment(s): HX past alcoholism and heroin abuse, "DX hepatitis b and c", stroke in 04/2015 with right sided weakness, recent dx. lung cancer, rash lower legs, circulation issues lower legs-causes leg pain History of Any Multi-Drug Resistant Organisms: None Reported Past Surgical History: Cholecystectomy, Orthopedic Surgery, Tonsillectomy, Tubal Ligation Additional Past Surgical History / Comment(s): esophageal surgery as a baby, cervix biopsy. Left ankle fusion, right ankle, recent bronchoscopy Past Anesthesia/Blood Transfusion Reactions: Motion Sickness, Postoperative Nausea & Vomiting (PONV) Additional Past Anesthesia/Blood Transfusion Reaction / Comment(s): no reaction to blood Past Psychological History: Bipolar, Depression, PTSD Smoking Status: Current every day smoker Past Alcohol Use History: Daily, Heavy Past Drug Use History: Heroin, IV Drug Use - Past Family History Mother Additional Family Medical History / Comment(s): "chorea bill disease" Father Family Medical History: Liver Disease Additional Family Medical History / Comment(s): alcoholic General Exam - General Exam Comments Initial Comments: General: Appears in no acute distress. HEAD: Normal with no signs of head trauma. EYES: PERRLA, EOMI, conjunctiva normal, no discharge. ENT: Hearing grossly intact, normal oropharynx. RESPIRATORY: Clear breath sounds bilaterally. No wheezes, rales, or rhonchi. C/V: Regular rate and rhythm. S1 and S2 auscultated, no edema, peripheral pulses 2+ and intact throughout ABD: Abd is soft, nontender, nondistended EXT: Normal range of motion, no obvious deformity SKIN: No rashes or lesions observed on exposed skin. NEURO: Alert and oriented x 4. Limitations: no limitations Course Vital Signs 03/11/23 03/11/23 03/11/23 08:27 09:14 11:45 Temperature 98.2 F Pulse Rate 84 83 76 Respiratory 16 16 Rate Blood Pressure 161/66 161/74 O2 Sat by Pulse 94 L 95 Oximetry 03/11/23 03/11/23 03/11/23 11:48 11:53 13:00 Temperature Pulse Rate 76 85 Respiratory 20 Rate Blood Pressure 169/76 O2 Sat by Pulse 99 96 Oximetry Medical Decision Making - Medical Decision Making Was pt. sent in by a medical professional or institution ([facility], [facility], urgent care, hospital, or penitentiary...) When possible be specific @ -Sent from preop for further evaluation of hyperglycemia Did you speak to anyone other than the patient for history (EMS, parent, family, police, friend...)? What history was obtained from this source @ -No Did you review nursing and triage notes (agree or disagree)? Why? @ -I reviewed and agree with nursing and triage notes Were old charts reviewed (outside hosp., previous admission, EMS record, old EKG, old radiological studies, urgent care reports/EKG's, penitentiary records)? Report findings @ -Old charts reviewed Differential Diagnosis (chest pain, altered mental status, abdominal pain women, abdominal pain men, vaginal bleeding, weakness, fever, dyspnea, syncope, headache, dizziness, GI bleed, back pain, seizure, CVA, palpatations, mental health, musculoskeletal)? @ -Hyperglycemia, dehydration, medication noncompliance, electrolyte abnormality. This list is not all inclusive. EKG interpreted by me (3pts min.). @ -As above X-rays interpreted by me (1pt min.). @ -Chest x-ray reveals no obvious acute cardiopulmonary process. CT interpreted by me (1pt min.). @ -None done U/S interpreted by me (1pt. min.). @ -None done What testing was considered but not performed or refused? (CT, X-rays, U/S, labs)? Why? @ -None What meds were considered but not given or refused? Why? @ -None Did you discuss the management of the patient with other professionals (professionals i.e. [facility], [facility], lab, RT, psych nurse, social work therapist, supervisor parachute manufacturing, teacher, staff command and control officer, ed case manager)? Give summary @ -Discussed with Dr. June who presented bedside and was asking if patient be admitted as planned is hopefully to have surgery performed on Wednesday. Patient is poorly compliant with medications and surgery has been delayed multiple times so far would like to have good medical management of the patient prior to surgery. I do believe this is reasonable. I updated his MLP Ilene of the workup and they were consulted. I spoke with MLP Rahel of [facility] who accepted the admission. Was smoking cessation discussed for >3mins.? @ -No Was critical care preformed (if so, how long)? @ -No Were there social determinants of health that impacted care today? How? (Homelessness, low income, unemployed, alcoholism, drug addiction, transportation, low edu. Level, literacy, decrease access to med. care, long-term, rehab)? @ -No Was there de-escalation of care discussed even if they declined (Discuss DNR or withdrawal of care, Hospice)? DNR status @ -No What co-morbidities impacted this encounter? (DM, HTN, Smoking, COPD, CAD, Cancer, CVA, ARF, Chemo, Hep., AIDS, mental health diagnosis, sleep apnea, morbid obesity)? @ -None Was patient admitted / discharged? Hospital course, mention meds given and route, prescriptions, significant lab abnormalities, going to OR and other pertinent info. @ -Based on patient's presentation and physical exam, presents for hyperglycemia. Presents from preop where she was due to have a lung resection due to cancer. She is poorly compliant with medications. We will obtain workup. She was given a liter fluid bolus as well as a breathing treatment here in the emergency department. EKG showed no signs of acute ischemia. Chest x-ray shows no obvious acute cardio on her process. Labs remarkable for mild thrombocytopenia of 92. Patient is hyperglycemic as well which should improve with fluids. Patient's hypomagnesemic as well. No evidence of DKA. I discussed with the patient. She will be admitted at this time. I spoke with cardiothoracic surgery Dr. June as well as the admitting team [facility] Rahel. Both were in agreement with the plan. Undiagnosed new problem with uncertain prognosis? @ -No Drug Therapy requiring intensive monitoring for toxicity (Heparin, Nitro, Insulin, Cardizem)? @ -No Were any procedures done? @ -No Diagnosis/symptom? @ -Hyperglycemia, hypomagnesemia, lung cancer Acute, or Chronic, or Acute on Chronic? @ -Acute Uncomplicated (without systemic symptoms) or Complicated (systemic symptoms)? @ -Complicated Side effects of treatment? @ -No Exacerbation, Progression, or Severe Exacerbation? @ -No Poses a threat to life or bodily function? How? (Chest pain, [place], [place], pneumonia, PE, COPD, DKA, ARF, appy, cholecystitis, CVA, Diverticulitis, Homicidal, Suicidal, threat to staff... and all critical care pts) @ -yes - Lab Data Result diagrams: 03/11/23 09:05 03/11/23 09:05 Lab Results 03/11/23 03/11/23 03/11/23 Range/Units 08:39 09:05 09:05 WBC 5.1 (3.8-10.6) k/uL RBC 4.31 (3.80-5.40) m/uL Hgb 13.9 (11.4-16.0) gm/dL Hct 41.5 (34.0-46.0) % MCV 96.4 (80.0-100.0) fL MCH 32.3 (25.0-35.0) pg MCHC 33.5 (31.0-37.0) g/dL RDW 12.8 (11.5-15.5) % Plt Count 92 L (150-450) k/uL MPV 8.7 Neutrophils % 60 % Lymphocytes % 31 % Monocytes % 5 % Eosinophils % 2 % Basophils % 1 % Neutrophils # 3.0 (1.3-7.7) k/uL Lymphocytes # 1.5 (1.0-4.8) k/uL Monocytes # 0.3 (0-1.0) k/uL Eosinophils # 0.1 (0-0.7) k/uL Basophils # 0.1 (0-0.2) k/uL Manual Slide Review Performed Sodium 136 L (137-145) mmol/L Potassium 3.9 (3.5-5.1) mmol/L Chloride 99 (98-107) mmol/L Carbon Dioxide 27 (22-30) mmol/L Anion Gap 10 mmol/L BUN 11 (7-17) mg/dL Creatinine 0.53 (0.52-1.04) mg/dL Est GFR (CKD-EPI)AfAm >90 (>60 ml/min/1.73 sqM) Est GFR (CKD-EPI)NonAf >90 (>60 ml/min/1.73 sqM) Glucose 513 H* (74-99) mg/dL POC Glucose (mg/dL) 471 H (70-110) mg/dL POC Glu Pilot Plant Operator Helper ID Brooke Varela Calcium 9.0 (8.4-10.2) mg/dL Magnesium 1.4 L (1.6-2.3) mg/dL Total Bilirubin 0.8 (0.2-1.3) mg/dL AST 99 H (14-36) U/L ALT 93 H (4-34) U/L Alkaline Phosphatase 94 (38-126) U/L NT-Pro-B Natriuret Pep pg/mL Total Protein 7.1 (6.3-8.2) g/dL Albumin 3.2 L (3.5-5.0) g/dL Acetone, Qual Negative (Negative) Influenza Type A (PCR) (Not Detectd) Influenza Type B (PCR) (Not Detectd) RSV (PCR) (Not Detectd) SARS-CoV-2 (PCR) (Not Detectd) 03/11/23 03/11/23 Range/Units 09:05 09:05 WBC (3.8-10.6) k/uL RBC (3.80-5.40) m/uL Hgb (11.4-16.0) gm/dL Hct (34.0-46.0) % MCV (80.0-100.0) fL MCH (25.0-35.0) pg MCHC (31.0-37.0) g/dL RDW (11.5-15.5) % Plt Count (150-450) k/uL MPV Neutrophils % % Lymphocytes % % Monocytes % % Eosinophils % % Basophils % % Neutrophils # (1.3-7.7) k/uL Lymphocytes # (1.0-4.8) k/uL Monocytes # (0-1.0) k/uL Eosinophils # (0-0.7) k/uL Basophils # (0-0.2) k/uL Manual Slide Review Sodium (137-145) mmol/L Potassium (3.5-5.1) mmol/L Chloride (98-107) mmol/L Carbon Dioxide (22-30) mmol/L Anion Gap mmol/L BUN (7-17) mg/dL Creatinine (0.52-1.04) mg/dL Est GFR (CKD-EPI)AfAm (>60 ml/min/1.73 sqM) Est GFR (CKD-EPI)NonAf (>60 ml/min/1.73 sqM) Glucose (74-99) mg/dL POC Glucose (mg/dL) (70-110) mg/dL POC Glu [employer] Operator Helper ID Calcium (8.4-10.2) mg/dL Magnesium (1.6-2.3) mg/dL Total Bilirubin (0.2-1.3) mg/dL AST (14-36) U/L ALT (4-34) U/L Alkaline Phosphatase (38-126) U/L NT-Pro-B Natriuret Pep 166 pg/mL Total Protein (6.3-8.2) g/dL Albumin (3.5-5.0) g/dL Acetone, Qual (Negative) Influenza Type A (PCR) Not Detected (Not Detectd) Influenza Type B (PCR) Not Detected (Not Detectd) RSV (PCR) Not Detected (Not Detectd) SARS-CoV-2 (PCR) Not Detected (Not Detectd) - EKG Data -: EKG Interpreted by Me EKG Comments: 12-lead Electrocardiogram Interpretation Note EKG was reviewed and interpreted by myself. 12-lead ECG performed at 0905 is interpreted by me as revealing normal sinus rhythm at a rate of 83 beats per minute. [place] is normal. SC interval is 169 ms, QRS duration is 95 ms, QTc is 448 ms.. There were no ST or T wave abnormalities to suggest myocardial ischemia or injury. R wave progression across the precordium was satisfactory. By my interpretation this EKG is non-diagnostic for acute ischemia. Disposition Clinical Impression: Hypomagnesemia, Hyperglycemia, Lung cancer Disposition: ADMITTED IP TO THIS HOSP Condition: Stable Time of Disposition: 10:42
[2023-03-11 09:57] LABS: Basophils # (A) 0.1 k/uL (0-0.2); Basophils % (A) 1 %; Eosinophils # (A) 0.1 k/uL (0-0.7); Eosinophils % (A) 2 %; HCT 41.5 % (34.0-46.0); HGB 13.9 gm/dL (11.4-16.0); Lymphocytes # (A) 1.5 k/uL (1.0-4.8); Lymphocytes % (A) 31 %; MCH 32.3 pg (25.0-35.0); MCHC 33.5 g/dL (31.0-37.0); MCV 96.4 fL (80.0-100.0); Mean Platelet Volume 8.7; Monocytes # (A) 0.3 k/uL (0-1.0); Monocytes % (A) 5 %; Neutrophils % (A) 60 %; RBC 4.31 m/uL (3.80-5.40); RDW 12.8 % (11.5-15.5); WBC 5.1 k/uL (3.8-10.6)
[2023-03-11 09:59] LABS: ALT 93 U/L (4-34); AST 99 U/L (14-36); African American GFR (CKD) >90 (>60 ml/min/1.73 sqM); Albumin 3.2 g/dL (3.5-5.0); Alkaline Phosphatase 94 U/L (38-126); Anion Gap 10 mmol/L; Blood Urea Nitrogen 11 mg/dL (7-17); Carbon Dioxide 27 mmol/L (22-30); Chloride 99 mmol/L (98-107); Magnesium 1.4 mg/dL (1.6-2.3); Non-African American GFR(CKD) >90 (>60 ml/min/1.73 sqM); Potassium 3.9 mmol/L (3.5-5.1); Sodium 136 mmol/L (137-145); Total Bilirubin 0.8 mg/dL (0.2-1.3); Total Protein 7.1 g/dL (6.3-8.2)
--- NOTE | 2023-03-11 10:03 | XR ---
EXAMINATION TYPE: XR chest 2V DATE OF EXAM: 03/11/2023 COMPARISON: 01/07/2023 TECHNIQUE: PA and lateral views submitted. HISTORY: Lethargic FINDINGS: No pleural effusion or pneumothorax. Mild coarsening of the interstitial there are subsegmental denson es at the left lung base. Diffuse osteopenia and AC joint arthropathy. Atherosclerotic change aorta.. Heart size normal and no overt failure. Osseous structures demonstrate hypertrophic and degenerativ e changes of the spine. IMPRESSION: 1. Favor basilar atelectasis over pneumonia correlate clinically. 2. Interstitial upper limits of normal or slightly coarse and could be on the basis of mild bronchiti s or interstitial pneumonitis.
[2023-03-11 10:20] LABS: Glucose 513 mg/dL (74-99)
[2023-03-11] MEDS ORDERED: MAGNESIUM SULFATE-D5W PMX 1 GM in DEXTROSE/WATER 1 100ML.BAG IVPB ONE (10:31)
[2023-03-11] MEDS ORDERED: DEXTROSE 50% SYRINGE 50 ML IVP PRN ×2 (10:55)
[2023-03-11] MEDS ORDERED: NALOXONE 0.4 MG/ML 1 ML VIAL IV PRN (10:55)
[2023-03-11 11:24] LABS: Platelet Count 92 k/uL (150-450)
[2023-03-11 11:41] LABS: Glucose,Whole Blood 390 mg/dL (70-110)
[2023-03-11 12:30] LABS: Glucose,Whole Blood 372 mg/dL (70-110)
[2023-03-11 12:46] LABS: Appearance,Urine Clear (Clear); Bilirubin,Urine Negative (Negative); Blood,Urine Negative (Negative); Color,Urine Orange; Glucose,Urine (UA) 4+ (Negative); Ketones,Urine Negative (Negative); Leukocyte Esterase,Urine Negative (Negative); Nitrite,Urine Negative (Negative); Protein,Urine Negative (Negative); Specific Gravity,Urine 1.015 (1.001-1.035); Urobilinogen,Urine 0.2 mg/dL (<2.0)
[2023-03-11] MEDS: INSULIN ASPART (NovoLOG) 100 UNIT/ML VIAL SQ SCH ×2 (12:57→18:04)
--- NOTE | 2023-03-11 13:15 | P.HPIM ---
History of Present Illness Patient is a 57-year-old female came in for elective pulmonary lobectomy for lung cancer found to have highly elevated blood sugars of 500 because of which patient was admitted patient last hemoglobin A1c was more than a year ago at that time it was 7.5 it appears patient may be noncompliant. Patient admits to drinking vodka with watermelon juice last night. Patient does have history of COPD continues to smoke 5 cigarettes per day is bit hypoxic. Chest x-ray showed some interstitial prominence although clinically patient doesn't appear to be in CHF patient does take 20 mg of Lasix at home patient has chronic venous stasis dermatosis of both legs and will be dermatitis. Patient is on Trulicity, 20 units of long-acting insulin along with metformin at home for diabetes with us. Patient blood sugars is presently about 300. REVIEW OF SYSTEMS: CONSTITUTIONAL: No fever, no malaise, no fatigue. HEENT: No recent visual problems or hearing problems. Denied any sore throat. CARDIOVASCULAR: No chest pain, orthopnea, PND, no palpitations, no syncope. PULMONARY: No shortness of breath, no cough, no hemoptysis. GASTROINTESTINAL: No diarrhea, no nausea, no vomiting, no abdominal pain. NEUROLOGICAL: No headaches, no weakness, no numbness. HEMATOLOGICAL: Denies any bleeding or petechiae. GENITOURINARY: Denies any burning micturition, frequency, or urgency. MUSCULOSKELETAL/RHEUMATOLOGICAL: Denies any joint pain, swelling, or any muscle pain. ENDOCRINE: Denies any polyuria or polydipsia. The rest of the 14-point review of systems is negative. PHYSICAL EXAMINATION: GENERAL: The patient is drowsy and oriented x3, not in any acute distress. Well developed, well nourished. HEENT: Pupils are round and equally reacting to light. EOMI. No scleral icterus. No conjunctival pallor. Normocephalic, atraumatic. No pharyngeal erythema. No thyromegaly. CARDIOVASCULAR: S1 and S2 present. No murmurs, rubs, or gallops. PULMONARY: Chest is clear to auscultation, no wheezing or crackles. ABDOMEN: Soft, nontender, nondistended, normoactive bowel sounds. No palpable organomegaly. MUSCULOSKELETAL: No joint swelling or deformity. EXTREMITIES: No cyanosis, clubbing, or pedal edema. NEUROLOGICAL: Gross neurological examination did not reveal any focal deficits. SKIN: Bilateral chronic venous stasis and will be dermatitis no pitting edema at this time.. Assessment and plan Uncontrolled elevated blood sugars: Secondary to dietary noncompliance. Patient will be resumed on home regimen monitor blood sugars titrated depending on her blood sugars patient will be additionally and sliding scale. Patient is not in DKA hyperosmolar state -Mild hypoxia probably secondary to emphysema patient is presently not in COPD exacerbation we'll obtain a BNP level because of interstitial prominence COPD without any acute exacerbation next and-hyperlipidemia -Hypertension next and hypervascular disease next and hyponatremic with continued nicotine use: Counseling was provided Lung cancer was recently diagnosed will undergo lobectomy in Wednesday DVT prophylaxis: Lovenox Past Medical History Past Medical History: Cancer, COPD, CVA/TIA, Diabetes Mellitus, Hyperlipidemia, Hypertension, Liver Disease, Skin Disorder, Vascular Disorder Additional Past Medical History / Comment(s): HX past alcoholism and heroin abuse, "DX hepatitis b and c", stroke in 04/2015 with right sided weakness, recent dx. lung cancer, rash lower legs, circulation issues lower legs-causes leg pain History of Any Multi-Drug Resistant Organisms: None Reported Past Surgical History: Cholecystectomy, Orthopedic Surgery, Tonsillectomy, Tubal Ligation Additional Past Surgical History / Comment(s): esophageal surgery as a baby, cervix biopsy. Left ankle fusion, right ankle, recent bronchoscopy Past Anesthesia/Blood Transfusion Reactions: Motion Sickness, Postoperative Ezekiel sea & Vomiting (PONV) Additional Past Anesthesia/Blood Transfusion Reaction / Comment(s): no reaction to blood Past Psychological History: Bipolar, Depression, PTSD Smoking Status: Current every day smoker Past Alcohol Use History: Daily, Heavy Past Drug Use History: Heroin, IV Drug Use - Past Family History Mother Additional Family Medical History / Comment(s): "chorea bill disease" Father Family Medical History: Liver Disease Additional Family Medical History / Comment(s): alcoholic Medications and Allergies Home Medications Medication Instructions Recorded Confirmed Type Atorvastatin [Lipitor] 10 mg PO DAILY 02/12/22 03/11/23 History Furosemide [Lasix] 20 mg PO DAILY 02/12/22 03/11/23 History Gabapentin 800 mg PO TID 05/22/22 03/11/23 History Losartan Potassium [Cozaar] 50 mg PO DAILY 30 Days #60 tab 05/27/22 03/11/23 Rx Dulaglutide [Trulicity] 1.5 mg SQ TU 12/31/22 03/11/23 History Insulin Glargine,Hum.rec.anlog 15 unit SQ DAILY 12/31/22 03/11/23 History [Lantus Solostar Pen] Fluticasone/Umeclidin/Vilanter 1 puff INHALATION RT-DAILY 03/09/23 03/11/23 History [Trelegy Ellipta 100-62.5-25] LORazepam [Ativan] 0.5 mg PO BID PRN 03/09/23 03/11/23 History Allergies Allergy/AdvReac Type Severity Reaction Status Date / Time hydromorphone HCl Allergy Unknown Rash/Hives/ Verified 03/11/23 08:35 [From Dilaudid] Itchy Physical Exam Vitals: Vital Signs Temp Pulse Resp BP Pulse Ox 03/11/23 13:00 85 20 169/76 96 03/11/23 11:53 76 03/11/23 11:48 99 03/11/23 11:45 76 03/11/23 09:14 83 16 161/74 95 03/11/23 08:27 98.2 F 84 16 161/66 94 L Intake and Output 03/10/23 03/11/23 03/11/23 22:59 06:59 14:59 Other: Weight 78.925 kg Results CBC & Chem 7: 03/11/23 09:05 03/11/23 09:05 Labs: Abnormal Lab Results - Last 24 Hours (Table) 03/11/23 03/11/23 03/11/23 Range/Units 08:39 09:05 09:05 Plt Count 92 L (150-450) k/uL Sodium 136 L (137-145) mmol/L Glucose 513 H* (74-99) mg/dL POC Glucose (mg/dL) 471 H (70-110) mg/dL Magnesium 1.4 L (1.6-2.3) mg/dL AST 99 H (14-36) U/L ALT 93 H (4-34) U/L Albumin 3.2 L (3.5-5.0) g/dL Urine Glucose (UA) (Negative) 03/11/23 03/11/23 03/11/23 Range/Units 11:39 12:10 12:29 Plt Count (150-450) k/uL Sodium (137-145) mmol/L Glucose (74-99) mg/dL POC Glucose (mg/dL) 390 H 372 H (70-110) mg/dL Magnesium (1.6-2.3) mg/dL AST (14-36) U/L ALT (4-34) U/L Albumin (3.5-5.0) g/dL Urine Glucose (UA) 4+ H (Negative)
[2023-03-11] MEDS: INSULIN DETEMIR (LEVEMIR) 100 UNIT/ML SYR SQ SCH (14:28)
[2023-03-11 14:30] LABS: Glucose,Whole Blood 313 mg/dL (70-110)
--- NOTE | 2023-03-11 15:26 | P.GSCN ---
History of Present Illness Consult date: 03/11/23 Reason for Consult: Known to us, lung cancer, need for lobectomy Requesting physician: Chandrakant Clemons History of present illness: This is a 57-year-old patient follows outpatient with Dr. Pardo for primary care and Dr. Lucia for pulmonology. She has a previous medical history of current tobacco dependence, COPD, current daily EtOH use, hypertension, hyperlipidemia, poorly controlled diabetes, stroke in 2015 with right-sided weakness, hepatitis B and C, bipolar depression, IV heroin use with last use Ju 2018. Apparently she has been trying to quit smoking for quite some time. She had a screening CT in June of last year demonstrating a small mass in the left upper lobe and even smaller mass in the right lower lobe. PET scan was obtained at that time demonstrating uptake in the left upper lobe mass. There was no adenopathy on the CT scan and no evidence of metastasis on the PET scan. She was referred to Dr. Lucia and and another CAT scan was performed in November which demonstrated a persistent mass in the left upper lobe which appeared more solid and less ground-glass in appearance and had not changed much in size. The right lower lobe density was also present but appeared to be just a small area of scar. Again there was no adenopathy noted on the CT scan. She underwent bronchoscopy and transbronchial biopsies of the left upper lobe mass which were positive for well-differentiated adenocarcinoma. Endobronchial ultrasound demonstrated no adenopathy. Subsequently she was referred to Dr. June for surgical recommendations. Dr. June had a long very detailed discussion with the patient as well as her daughter regarding treatment options. She was offered the possibility of radiation therapy versus surgery. She was also informed that lobectomy might significantly impact her breathing and leave her somewhat short of breath and possibly oxygen dependent given her pulmonary function status. The patient and her daughter asked multiple questions, and the patient elected for surgical lobectomy as her treatment choice. Her surgery was rescheduled multiple times but after obtaining cardiac clearance she was finally able to be scheduled today 03/11/2023. Unfortunately when she came in her blood sugar was found to be greater then 500 and surgery was canceled. She is to be admitted to medicine for better control of her blood sugars, with plans for surgical lobectomy this admission once blood sugars are better regulated. Review of Systems Review of systems was completed and was negative except as noted - Respiratory Reports cough, Reports dyspnea - Psychiatric Reports anxiety Past Medical History Past Medical History: Cancer, COPD, CVA/TIA, Diabetes Mellitus, Hyperlipidemia, Hypertension, Liver Disease, Skin Disorder, Vascular Disorder Additional Past Medical History / Comment(s): HX past alcoholism and heroin abuse, "DX hepatitis b and c", stroke in 04/2015 with right sided weakness, recent dx. lung cancer, rash lower legs, circulation issues lower legs-causes leg pain History of Any Multi-Drug Resistant Organisms: None Reported Past Surgical History: Cholecystectomy, Orthopedic Surgery, Tonsillectomy, Tubal Ligation Additional Past Surgical History / Comment(s): esophageal surgery as a baby, cervix biopsy. Left ankle fusion, right ankle, recent bronchoscopy Past Anesthesia/Blood Transfusion Reactions: Motion Sickness, Postoperative Nausea & Vomiting (PONV) Additional Past Anesthesia/Blood Transfusion Reaction / Comm: no reaction to blood Past Psychological History: Bipolar, Depression, PTSD Smoking Status: Current every day smoker Past Alcohol Use History: Daily, Heavy Past Drug Use History: Heroin, IV Drug Use - Past Family History Mother Additional Family Medical History / Comment(s): "chorea bill disease" Father Family Medical History: Liver Disease Additional Family Medical History / Comment(s): alcoholic Medications and Allergies Home Medications Medication Instructions Recorded Confirmed Type Atorvastatin [Lipitor] 10 mg PO DAILY 02/12/22 03/11/23 History Furosemide [Lasix] 20 mg PO DAILY 02/12/22 03/11/23 History Gabapentin 800 mg PO TID 05/22/22 03/11/23 History Losartan Potassium [Cozaar] 50 mg PO DAILY 30 Days #60 tab 05/27/22 03/11/23 Rx Dulaglutide [Trulicity] 1.5 mg SQ TU 12/31/22 03/11/23 History Insulin Glargine,Hum.rec.anlog 15 unit SQ DAILY 12/31/22 03/11/23 History [Lantus Solostar Pen] Fluticasone/Umeclidin/Vilanter 1 puff INHALATION RT-DAILY 03/09/23 03/11/23 History [Trelegy Ellipta 100-62.5-25] LORazepam [Ativan] 0.5 mg PO BID PRN 03/09/23 03/11/23 History Allergies Allergy/AdvReac Type Severity Reaction Status Date / Time hydromorphone HCl Allergy Unknown Rash/Hives/ Verified 03/11/23 08:35 [From Dilaudid] [facility] - Exam Vital Signs Temp Pulse Resp BP Pulse Ox 98.2 F 84 16 161/66 94 L 03/11/23 08:27 03/11/23 08:27 03/11/23 08:27 03/11/23 08:27 03/11/23 08:27 CONSTITUTIONAL: Sleepy but does arouse, appears comfortable, cooperative, no pain, no acute distress EYES: Pupils equal, round, reactive to light, normal ocular movement ENT: Moist mucous membranes without oral lesions present NECK: No masses, no bruits, trachea midline RESPIRATORY: Lungs sounds diminished bilaterally. Respirations even, nonlabored. Currently on 2 LPM NC with oxygen saturation 97%. Strong cough. No chest wall deformities. No clubbing or cyanosis present CARDIOVASCULAR: S1, S2 present. Regular rate and rhythm, sinus rhythm on telemetry. Palpable peripheral pulses bilaterally. No edema present. No calf pain or tenderness noted GASTROINTESTINAL: Abdomen soft, nontender, nondistended without masses or organomegaly noted. There is no rebound or guarding present. Active bowel sounds present 4 quadrants. GENITOURINARY: Deferred INTEGUMENTARY: Skin is warm and dry with evidence of good perfusion. NEUROLOGIC: Cranial nerves II through XII intact, normal coordination, no obvious motor or sensory deficits, speech is normal MUSKULOSKELETAL: Able to move all extremities, strength equal bilaterally, normal posture PSYCHIATRIC: Oriented to person place and time, appropriate affect, intact j udgment and insight Results - Labs 03/11/23 09:05 03/11/23 09:05 Abnormal Lab Results - Last 24 Hours (Table) 03/11/23 03/11/23 03/11/23 Range/Units 08:39 09:05 09:05 Plt Count 92 L (150-450) k/uL Sodium 136 L (137-145) mmol/L Glucose 513 H* (74-99) mg/dL POC Glucose (mg/dL) 471 H (70-110) mg/dL Magnesium 1.4 L (1.6-2.3) mg/dL AST 99 H (14-36) U/L ALT 93 H (4-34) U/L Albumin 3.2 L (3.5-5.0) g/dL Urine Glucose (UA) (Negative) 03/11/23 03/11/23 03/11/23 Range/Units 11:39 12:10 12:29 Plt Count (150-450) k/uL Sodium (137-145) mmol/L Glucose (74-99) mg/dL POC Glucose (mg/dL) 390 H 372 H (70-110) mg/dL Magnesium (1.6-2.3) mg/dL AST (14-36) U/L ALT (4-34) U/L Albumin (3.5-5.0) g/dL Urine Glucose (UA) 4+ H (Negative) Diabetes panel 03/11/23 Range/Units 09:05 Sodium 136 L (137-145) mmol/L Potassium 3.9 (3.5-5.1) mmol/L Chloride 99 (98-107) mmol/L Carbon Dioxide 27 (22-30) mmol/L BUN 11 (7-17) mg/dL Creatinine 0.53 (0.52-1.04) mg/dL Glucose 513 H* (74-99) mg/dL Calcium 9.0 (8.4-10.2) mg/dL AST 99 H (14-36) U/L ALT 93 H (4-34) U/L Alkaline Phosphatase 94 (38-126) U/L Total Protein 7.1 (6.3-8.2) g/dL Albumin 3.2 L (3.5-5.0) g/dL Calcium panel 03/11/23 Range/Units 09:05 Calcium 9.0 (8.4-10.2) mg/dL Albumin 3.2 L (3.5-5.0) g/dL Pituitary panel 03/11/23 Range/Units 09:05 Sodium 136 L (137-145) mmol/L Potassium 3.9 (3.5-5.1) mmol/L Chloride 99 (98-107) mmol/L Carbon Dioxide 27 (22-30) mmol/L BUN 11 (7-17) mg/dL Creatinine 0.53 (0.52-1.04) mg/dL Glucose 513 H* (74-99) mg/dL Calcium 9.0 (8.4-10.2) mg/dL Adrenal panel 03/11/23 Range/Units 09:05 Sodium 136 L (137-145) mmol/L Potassium 3.9 (3.5-5.1) mmol/L Chloride 99 (98-107) mmol/L Carbon Dioxide 27 (22-30) mmol/L BUN 11 (7-17) mg/dL Creatinine 0.53 (0.52-1.04) mg/dL Glucose 513 H* (74-99) mg/dL Calcium 9.0 (8.4-10.2) mg/dL Total Bilirubin 0.8 (0.2-1.3) mg/dL AST 99 H (14-36) U/L ALT 93 H (4-34) U/L Alkaline Phosphatase 94 (38-126) U/L Total Protein 7.1 (6.3-8.2) g/dL Albumin 3.2 L (3.5-5.0) g/dL - Imaging Chest x-ray: report reviewed, image reviewed EKG: image reviewed Assessment and Plan Assessment: Insulin dependent diabetes with poor glycemic control, hyperglycemia Hypomagnesemia Left upper lobe mass positive for well-differentiated adenocarcinoma Current tobacco dependence COPD Current daily EtOH use Hypertension Hyperlipidemia Stroke in 2015 with right-sided weakness Hepatitis B and C Bipolar depression History of IV heroin use with last use August 2018 Plan: The patient was seen and examined in the emergency room with Dr. June. Recommended admittance for control of blood sugars, patient does admit she doesn't check her blood sugars at home and just takes her insulin every day as ordered by her primary care provider. Hemoglobin A1c ordered. Patient will also need to be monitored for nicotine and alcohol withdrawal. CIWA protocol initiated, nicotine patch ordered per internal medicine. Incentive spirometry ordered and should be encouraged. Increase activity as tolerated. Home medications ordered. Smoking cessation counseling and education provided again and will be reinforced throughout her hospital stay. Our plan is for robotic- assisted thoracoscopic left upper lobectomy on March [address] June as long as blood sugars normalize. Medical management of other comorbidities per internal medicine. Thank you for this consult, we will continue to follow along and make further recommendations as appropriate. I have personally seen and examined the patient, performed the documentation and the assessment and plan as written. Number of minutes spent on the visit: 30. CAROLYN Hernandez
[2023-03-11 16:41] LABS: Glucose,Whole Blood 216 mg/dL (70-110)
[2023-03-11 17:56] LABS: Glucose,Whole Blood 254 mg/dL (70-110)
[2023-03-11] MEDS: THIAMINE 100 MG TAB PO SCH (18:01)
[2023-03-11] MEDS: FOLIC ACID 1 MG TAB PO SCH (18:01)
[2023-03-11] MEDS: GABAPENTIN 400 MG CAP PO SCH ×2 (18:02→21:25)
[2023-03-12 07:39] LABS: Glucose,Whole Blood 238 mg/dL (70-110)
[2023-03-12] MEDS: IPRATROPIUM 0.5 MG/2.5 ML NEBU INHALATION SCH ×4 (07:51→19:42)
[2023-03-12] MEDS: SYMBICORT 80-4.5 MCG INHALER INHALATION SCH ×2 (07:51→19:42)
[2023-03-12] MEDS: INSULIN DETEMIR (LEVEMIR) 100 UNIT/ML SYR SQ SCH (08:37)
[2023-03-12] MEDS: NICOTINE 7MG/24HR PATCH TRANSDERM SCH (08:38)
[2023-03-12] MEDS: ENOXAPARIN 40 MG/0.4 ML SYRINGE SQ SCH (08:39)
[2023-03-12] MEDS: INSULIN ASPART (NovoLOG) 100 UNIT/ML VIAL SQ SCH ×6 (08:39→20:21)
[2023-03-12] MEDS: GABAPENTIN 400 MG CAP PO SCH ×3 (08:39→21:00)
[2023-03-12] MEDS: FOLIC ACID 1 MG TAB PO SCH (08:40)
[2023-03-12] MEDS: ATORVASTATIN 10 MG TAB PO SCH (08:40)
[2023-03-12] MEDS: LOSARTAN 50 MG TAB PO SCH (08:40)
[2023-03-12] MEDS: THIAMINE 100 MG TAB PO SCH (08:40)
[2023-03-12 08:47] LABS: Basophils # (A) 0.04 X 10*3/uL (0.00-0.10); Basophils % (A) 0.7 %; Eosinophils # (A) 0.14 X 10*3/uL (0.04-0.35); Eosinophils % (A) 2.5 %; HCT 39.7 % (37.2-46.3); HGB 13.2 g/dL (12.0-15.0); Lymphocytes # (A) 2.14 X 10*3/uL (0.90-5.00); Lymphocytes % (A) 37.5 %; MCH 31.5 pg (27.0-32.0); MCHC 33.2 g/dL (32.0-37.0); MCV 94.7 FL (80.0-97.0); Mean Platelet Volume 10.5 FL (9.5-12.2); Monocytes # (A) 0.39 X 10*3/uL (0.20-1.00); Monocytes % (A) 6.8 %; NRBC Per 100 WBC 0 X 10*3/uL (0.00-0.01); Neutrophils # (A) 2.99 X 10*3/uL (1.80-7.70); Neutrophils % (A) 52.3 %; Platelet Count 100 X 10*3/uL (140-440); RBC 4.19 X 10*6/uL (4.10-5.20); RDW 12.6 % (11.5-14.5); WBC 5.71 X 10*3/uL (4.50-10.00)
[2023-03-12] MEDS ORDERED: FUROSEMIDE 20 MG TAB PO SCH (09:00)
[2023-03-12 09:12] LABS: Blood Urea Nitrogen 13.2 mg/dL (9.0-27.0); Calcium 8.8 mg/dL (8.7-10.3); Carbon Dioxide 27.5 mmol/L (21.6-31.8); Chloride 103 mmol/L (96-109); Glucose 261 mg/dL (70-110); Magnesium 1.5 mg/dL (1.5-2.4); Potassium 4.2 mmol/L (3.5-5.5); Sodium 136 mmol/L (135-145)
--- NOTE | 2023-03-12 09:28 | XR ---
EXAMINATION TYPE: XR chest 2V DATE OF EXAM: 03/12/2023 COMPARISON: 03/11/2023 TECHNIQUE: PA and lateral views submitted. HISTORY: Presurgical FINDINGS: The lungs are clear and there is no pneumothorax, pleural effusion, or focal pneumonia. Heart size normal and no overt failure. Osseous structures demonstrate hypertrophic and degenerative changes of the spine. Mild atherosclerotic change aorta. Arthropathy of the shoulders. Coarsened interstitium. 1 .2 cm left upper lobe pulmonary mass. IMPRESSION: 1. A 1.2 cm left upper lobe pulmonary mass.
[2023-03-12] MEDS ORDERED: INSULIN DETEMIR (LEVEMIR) 100 UNIT/ML SYR SQ ONE (10:10)
--- NOTE | 2023-03-12 10:56 | P.PN ---
Subjective Progress Note Date: 03/12/23 Principal diagnosis: Insulin dependent diabetes with poor glycemic control, hyperglycemia, hypomagnesemia, left upper lobe mass positive for well-differentiated adenocarcinoma. History of current tobacco dependence, COPD, daily EtOH use, hypertension, hyperlipidemia, stroke in 2016 with right-sided weakness, hepatitis B and C, bipolar depression, IV heroin use with last use August 2018 The patient was seen and examined this morning laying in bed in the medical oncology unit in no acute distress. Currently on room air. Blood sugars better controlled although still rather than 200, insulin adjusted by primary. A1c reportedly 9.8%, clearly patient has been uncontrolled. Discussed at length the patient's need for better blood sugar control, also discussed the need to be out of bed for the majority of the day, patient should be up in the chair for all meals, as discussion took place patient closer I's and wants to go back to sleep. She seems to have little motivation to improve her current status. Objective - Vital Signs Vital signs: Vital Signs Temp 98.4 F 03/12/23 07:13 Pulse 84 03/12/23 08:02 Resp 18 03/12/23 07:13 BP 159/76 03/12/23 07:13 Pulse Ox 92 L 03/12/23 07:51 FiO2 21 03/12/23 07:51 Intake & Output 03/11/23 03/12/23 03/12/23 18:59 06:59 18:59 Weight 78.925 kg 78.925 kg Other: Voiding Method Toilet # Voids 2 1 - Exam CONSTITUTIONAL: Appears comfortable, no acute distress RESPIRATORY: Lungs sounds diminished bilaterally. Respirations even, nonlabored. Currently on room air with oxygen saturation 92-96%. Able to achieve 1250 mL on incentive spirometry CARDIOVASCULAR: S1, S2 present. Regular rate and rhythm. Palpable peripheral pulses bilaterally. No edema present. No calf pain or tenderness noted GASTROINTESTINAL: Abdomen soft, nontender, nondistended. Active bowel sounds present 4 quadrants. Tolerating diet. GENITOURINARY: Continues to void although not measured INTEGUMENTARY: Skin is warm and dry NEUROLOGIC: Cranial nerves II through XII intact MUSKULOSKELETAL: Able to move all extremities, slightly weaker on the right which is chronic due to previous stroke PSYCHIATRIC: Sleepy but arouses, oriented to person place and time, flat affect - Allied health notes Allied health notes reviewed: nursing - Labs CBC & Chem 7: 03/12/23 06:06 03/12/23 06:06 Labs: Abnormal Lab Results - Last 24 Hours (Table) 03/11/23 03/11/23 03/11/23 Range/Units 09:05 11:39 12:10 Plt Count 92 L (150-450) k/uL Glucose (70-110) mg/dL POC Glucose (mg/dL) 390 H (70-110) mg/dL Hemoglobin A1c (<=6.0) % Urine Glucose (UA) 4+ H (Negative) 03/11/23 03/11/23 03/11/23 Range/Units 12:29 14:28 16:39 Plt Count (150-450) k/uL Glucose (70-110) mg/dL POC Glucose (mg/dL) 372 H 313 H 216 H (70-110) mg/dL Hemoglobin A1c (<=6.0) % Urine Glucose (UA) (Negative) 03/11/23 03/12/23 03/12/23 Range/Units 17:54 06:06 06:06 Plt Count 100 L (150-450) k/uL Glucose (70-110) mg/dL POC Glucose (mg/dL) 254 H (70-110) mg/dL Hemoglobin A1c 9.8 H (<=6.0) % Urine Glucose (UA) (Negative) 03/12/23 03/12/23 Range/Units 06:06 07:09 Plt Count (150-450) k/uL Glucose 261 H (70-110) mg/dL POC Glucose (mg/dL) 238 H (70-110) mg/dL Hemoglobin A1c (<=6.0) % Urine Glucose (UA) (Negative) - Imaging and Cardiology Chest x-ray: image reviewed Assessment and Plan Assessment: Insulin dependent diabetes with poor glycemic control, hyperglycemia, A1c 9.8% Hypomagnesemia Left upper lobe mass positive for well-differentiated adenocarcinoma Current tobacco dependence Moderate COPD, preoperative FEV1 54% of predicted, DLCO 36% of predicted Current daily EtOH use Hypertension Hyperlipidemia Stroke in 2016 with right-sided weakness Hepatitis B and C Bipolar depression History of IV heroin use with last use August 2018 Plan: Continue to improve blood glucose control, insulin adjustments made by primary service Increase activity, ambulate as tolerated. Patient should be out of bed for all meals, she should be out of bed the majority of the day and use the bed for sleeping at nighttime only Spirometry encouraged Monitor for alcohol withdrawal, thiamine and folic acid ordered, magnesium replaced Nicotine patch in place Smoking cessation counseling and education reinforced Our plan is for robotic-assisted thoracoscopic left upper lobectomy on March [address] June as long as blood sugars normalize Medical management of other comorbidities per internal medicine
[2023-03-12] MEDS: MAGNESIUM SULFATE-D5W PMX 1 GM in DEXTROSE/WATER 1 100ML.BAG IVPB SCH ×2 (11:15→13:21)
[2023-03-12 11:50] LABS: Glucose,Whole Blood 318 mg/dL (70-110)
[2023-03-12 17:35] LABS: Glucose,Whole Blood 370 mg/dL (70-110)
[2023-03-12 20:15] LABS: Glucose,Whole Blood 193 mg/dL (70-110)
[2023-03-13] MEDS ORDERED: INSULIN DETEMIR (LEVEMIR) 100 UNIT/ML SYR SQ SCH (07:00)
[2023-03-13 07:06] LABS: Glucose,Whole Blood 213 mg/dL (70-110)
--- NOTE | 2023-03-13 07:13 | P.PN ---
Subjective Progress Note Date: 03/12/23 Patient is a 57-year-old female came in for elective pulmonary lobectomy for lung cancer found to have highly elevated blood sugars of 500 because of which patient was admitted patient last hemoglobin A1c was more than a year ago at that time it was 7.5 it appears patient may be noncompliant. Patient admits to drinking vodka with watermelon juice last night. Patient does have history of COPD continues to smoke 5 cigarettes per day is bit hypoxic. Chest x-ray showed some interstitial prominence although clinically patient doesn't appear to be in CHF patient does take 20 mg of Lasix at home patient has chronic venous stasis dermatosis of both legs and will be dermatitis. Patient is on Trulicity, 20 units of long-acting insulin along with metformin at home for diabetes with us. Patient blood sugars is presently about 300. Patient had a chest xray showing 1.2 cm let upper lobe pulmonary mass. She will be going for lung resection on Wednesday. 03/12/2023 Patient sitting up in bed today. Needs to be up in the chair for the day. Patient verbalized understanding. Blood glucose remains elevated. Levemir will be increased and scheduled insulin added. REVIEW OF SYSTEMS: CONSTITUTIONAL: No fever, no malaise, no fatigue. HEENT: No recent visual problems or hearing problems. Denied any sore throat. CARDIOVASCULAR: No chest pain, orthopnea, PND, no palpitations, no syncope. PULMONARY: No shortness of breath, no cough, no hemoptysis. GASTROINTESTINAL: No diarrhea, no nausea, no vomiting, no abdominal pain. NEUROLOGICAL: No headaches, no weakness, no numbness. PHYSICAL EXAMINATION: GENERAL: The patient is drowsy and oriented x3, not in any acute distress. Well developed, well nourished. HEENT: Pupils are round and equally reacting to light. EOMI. No scleral icterus. No conjunctival pallor. Normocephalic, atraumatic. No pharyngeal erythema. No thyromegaly. CARDIOVASCULAR: S1 and S2 present. No murmurs, rubs, or gallops. PULMONARY: Chest is clear to auscultation, no wheezing or crackles. ABDOMEN: Soft, nontender, nondistended, normoactive bowel sounds. No palpable organomegaly. MUSCULOSKELETAL: No joint swelling or deformity. EXTREMITIES: No cyanosis, clubbing, or pedal edema. NEUROLOGICAL: Gross neurological examination did not reveal any focal deficits. SKIN: Bilateral chronic venous stasis and will be dermatitis no pitting edema at this time.. Assessment and plan Uncontrolled elevated blood sugars: Secondary to dietary noncompliance. Patient will be resumed on home regimen continue with sliding scale insulin ACHS with scheduled short acting and levemir which was increased today. -Mild hypoxia probably secondary to emphysema patient is presently not in COPD exacerbation, mention of interstitial prominence, BNP was 166 patient is on room air. -COPD without any acute exacerbation next and-hyperlipidemia -Hypertension -hypervascular disease -continued nicotine use: Counseling was provided -Lung cancer was recently diagnosed will undergo lobectomy in Wednesday DVT prophylaxis: Lovenox Full Code The impression and plan of care has been dictated by Joana Diaz Nurse Practitioner as directed. Dr. Gay MD I have performed a history and physical examination and medical decision making of this patient, discussed the same with the dictator, and agree with the dictators assessment and plan as written, documented as a scribe. Based on total visit time, I have performed more than 50% of this visit. Objective - Vital Signs Vital signs: Vital Signs Temp 97.9 F 03/13/23 01:39 Pulse 83 03/13/23 01:39 Resp 18 03/13/23 01:39 BP 149/73 03/13/23 01:39 Pulse Ox 93 L 03/13/23 01:39 FiO2 21 03/12/23 07:51 Intake & Output 03/12/23 03/13/23 03/13/23 18:59 06:59 18:59 Intake Total 540 Balance 540 Intake: Oral 540 Other: Voiding Method Toilet Toilet # Voids 1 3 - Labs CBC & Chem 7: 03/12/23 06:06 03/12/23 06:06 Labs: Abnormal Lab Results - Last 24 Hours (Table) 03/12/23 03/12/23 03/12/23 Range/Units 06:06 06:06 06:06 Plt Count 100 L (140-440) X 10*3/uL Glucose 261 H (70-110) mg/dL POC Glucose (mg/dL) (70-110) mg/dL Hemoglobin A1c 9.8 H (<=6.0) % 03/12/23 03/12/23 03/12/23 Range/Units 07:09 11:49 17:33 Plt Count (140-440) X 10*3/uL Glucose (70-110) mg/dL POC Glucose (mg/dL) 238 H 318 H 370 H (70-110) mg/dL Hemoglobin A1c (<=6.0) % 03/12/23 03/13/23 Range/Units 20:14 07:05 Plt Count (140-440) X 10*3/uL Glucose (70-110) mg/dL POC Glucose (mg/dL) 193 H 213 H (70-110) mg/dL Hemoglobin A1c (<=6.0) %
[2023-03-13] MEDS: SYMBICORT 80-4.5 MCG INHALER INHALATION SCH ×2 (07:23→18:27)
[2023-03-13] MEDS: IPRATROPIUM 0.5 MG/2.5 ML NEBU INHALATION SCH ×4 (07:24→18:27)
--- NOTE | 2023-03-13 07:58 | P.PN ---
Subjective Progress Note Date: 03/13/23 Principal diagnosis: Insulin dependent diabetes with poor glycemic control, hyperglycemia, hypomagnesemia, left upper lobe mass positive for well-differentiated adenocarcinoma. History of current tobacco dependence, COPD, daily EtOH use, hypertension, hyperlipidemia, stroke in 2016 with right-sided weakness, hepatitis B and C, bipolar depression, IV heroin use with last use August 2018 The patient was seen and examined this morning sitting up in a recliner on the medical oncology unit in no acute distress. Currently on room air. Blood sugars better controlled although still over 300 last night, insulin adjusted by primary. A1c reportedly 9.8%, clearly patient has been uncontrolled for quite some time. Patient states she did get up and ambulate yesterday. No signs of alcohol withdrawal yet. No other new concerns. Objective - Vital Signs Vital signs: Vital Signs Temp 97.9 F 03/13/23 01:39 Pulse 83 03/13/23 01:39 Resp 18 03/13/23 01:39 BP 149/73 03/13/23 01:39 Pulse Ox 96 03/13/23 07:25 FiO2 21 03/12/23 07:51 Intake & Output 03/12/23 03/13/23 03/13/23 18:59 06:59 18:59 Intake Total 540 Balance 540 Intake: Oral 540 Other: Voiding Method Toilet Toilet # Voids 1 3 - Exam CONSTITUTIONAL: Appears comfortable, no acute distress RESPIRATORY: Lungs sounds diminished bilaterally. Respirations even, nonlabored. Currently on room air with oxygen saturation 93%. Able to achieve 1500 mL on incentive spirometry CARDIOVASCULAR: S1, S2 present. Regular rate and rhythm. Palpable peripheral pulses bilaterally. No edema present. No calf pain or tenderness noted GASTROINTESTINAL: Abdomen soft, nontender, nondistended. Active bowel sounds present 4 quadrants. Tolerating diet. GENITOURINARY: Continues to void although not measured INTEGUMENTARY: Skin is warm and dry NEUROLOGIC: Cranial nerves II through XII intact MUSKULOSKELETAL: Able to move all extremities, slightly weaker on the right which is chronic due to previous stroke PSYCHIATRIC: Sleepy but arouses, oriented to person place and time, flat affect - Allied health notes Allied health notes reviewed: nursing - Labs CBC & Chem 7: 03/12/23 06:06 03/12/23 06:06 Labs: Abnormal Lab Results - Last 24 Hours (Table) 03/12/23 03/12/23 03/12/23 Range/Units 06:06 06:06 06:06 Plt Count 100 L (140-440) X 10*3/uL Glucose 261 H (70-110) mg/dL POC Glucose (mg/dL) (70-110) mg/dL Hemoglobin A1c 9.8 H (<=6.0) % 03/12/23 03/12/23 03/12/23 Range/Units 11:49 17:33 20:14 Plt Count (140-440) X 10*3/uL Glucose (70-110) mg/dL POC Glucose (mg/dL) 318 H 370 H 193 H (70-110) mg/dL Hemoglobin A1c (<=6.0) % 03/13/23 Range/Units 07:05 Plt Count (140-440) X 10*3/uL Glucose (70-110) mg/dL POC Glucose (mg/dL) 213 H (70-110) mg/dL Hemoglobin A1c (<=6.0) % Assessment and Plan Assessment: Insulin dependent diabetes with poor glycemic control, hyperglycemia, A1c 9.8% Hypomagnesemia Left upper lobe mass positive for well-differentiated adenocarcinoma Current tobacco dependence Moderate COPD, preoperative FEV1 54% of predicted, DLCO 36% of predicted Current daily EtOH use Hypertension Hyperlipidemia Stroke in 2015 with right-sided weakness Hepatitis B and C Bipolar depression History of IV heroin use with last use August 2018 Plan: Continue to improve blood glucose control, insulin adjustments made by primary service Increase activity, ambulate as tolerated. Patient should be out of bed for all meals, she should be out of bed the majority of the day and use the bed for sleeping at nighttime only Spirometry encouraged Monitor for alcohol withdrawal, thiamine and folic acid ordered, magnesium replaced Nicotine patch in place Smoking cessation counseling and education reinforced Our plan is for robotic-assisted thoracoscopic left upper lobectomy on March [address] June as long as blood sugars normalize Medical management of other comorbidities per internal medicine
[2023-03-13] MEDS: ENOXAPARIN 40 MG/0.4 ML SYRINGE SQ SCH (08:45)
[2023-03-13] MEDS: INSULIN ASPART (NovoLOG) 100 UNIT/ML VIAL SQ SCH ×8 (08:45→20:44)
[2023-03-13] MEDS: LOSARTAN 50 MG TAB PO SCH (08:46)
[2023-03-13] MEDS: GABAPENTIN 400 MG CAP PO SCH ×3 (08:46→20:59)
[2023-03-13] MEDS: THIAMINE 100 MG TAB PO SCH (08:46)
[2023-03-13] MEDS: FOLIC ACID 1 MG TAB PO SCH (08:46)
[2023-03-13] MEDS: NICOTINE 7MG/24HR PATCH TRANSDERM SCH (08:47)
[2023-03-13] MEDS: ATORVASTATIN 10 MG TAB PO SCH (08:47)
[2023-03-13 09:24] LABS: HCT 39.9 % (37.2-46.3); HGB 13.1 g/dL (12.0-15.0); MCH 31.3 pg (27.0-32.0); MCHC 32.8 g/dL (32.0-37.0); MCV 95.2 FL (80.0-97.0); Mean Platelet Volume 11.1 FL (9.5-12.2); NRBC Per 100 WBC 0 X 10*3/uL (0.00-0.01); Platelet Count 91 X 10*3/uL (140-440); RBC 4.19 X 10*6/uL (4.10-5.20); RDW 12.3 % (11.5-14.5)
[2023-03-13 09:48] LABS: BUN/Creat Ratio 21.43 Ratio (12.00-20.00); Calcium 8.6 mg/dL (8.7-10.3); Carbon Dioxide 24.7 mmol/L (21.6-31.8); Chloride 103 mmol/L (96-109); Glucose 191 mg/dL (70-110); Potassium 4.1 mmol/L (3.5-5.5); Sodium 137 mmol/L (135-145)
[2023-03-13 11:57] LABS: Glucose,Whole Blood 365 mg/dL (70-110)
[2023-03-13] MEDS ORDERED: INSULIN DETEMIR (LEVEMIR) 100 UNIT/ML SYR SQ ONE (13:00)
[2023-03-13] MEDS ORDERED: LORazepam 1 MG TAB PO PRN ×3 (13:38)
[2023-03-13] MEDS: LORazepam 1 MG TAB PO PRN ×2 (13:43→20:58)
--- NOTE | 2023-03-13 15:14 | P.PN ---
Subjective Progress Note Date: 03/13/23 Patient is a 57-year-old female came in for elective pulmonary lobectomy for lung cancer found to have highly elevated blood sugars of 500 because of which patient was admitted patient last hemoglobin A1c was more than a year ago at that time it was 7.5 it appears patient may be noncompliant. Patient admits to drinking vodka with watermelon juice last night. Patient does have history of COPD continues to smoke 5 cigarettes per day is bit hypoxic. Chest x-ray showed some interstitial prominence although clinically patient doesn't appear to be in CHF patient does take 20 mg of Lasix at home patient has chronic venous stasis dermatosis of both legs and will be dermatitis. Patient is on Trulicity, 20 units of long-acting insulin along with metformin at home for diabetes with us. Patient blood sugars is presently about 300. Patient had a chest xray showing 1.2 cm let upper lobe pulmonary mass. She will be going for lung resection on Wednesday. 03/12/2023 Patient sitting up in bed today. Needs to be up in the chair for the day. Patient verbalized understanding. Blood glucose remains elevated. Levemir will be increased and scheduled insulin added. 03/13/2023 Patient evaluated [facility]. She is sitting up in the chair no acute complaints overnight. She is scheduled to undergo elective lobe resection on Wednesday. Blood glucose remains elevated at this time it has come down into the 190s however back up to 365. She is on a combination of sliding scale insulin as well as 3 units of scheduled and 25 units daily Levemir. These have been increased today. REVIEW OF SYSTEMS: CONSTITUTIONAL: No fever, no malaise, no fatigue. HEENT: No recent visual problems or hearing problems. Denied any sore throat. CARDIOVASCULAR: No chest pain, orthopnea, PND, no palpitations, no syncope. PULMONARY: No shortness of breath, no cough, no hemoptysis. GASTROINTESTINAL: No diarrhea, no nausea, no vomiting, no abdominal pain. NEUROLOGICAL: No headaches, no weakness, no numbness. PHYSICAL EXAMINATION: GENERAL: The patient is drowsy and oriented x3, not in any acute distress. Well developed, well nourished. HEENT: Pupils are round and equally reacting to light. EOMI. No scleral icterus. No conjunctival pallor. Normocephalic, atraumatic. No pharyngeal erythema. No thyromegaly. CARDIOVASCULAR: S1 and S2 present. No murmurs, rubs, or gallops. PULMONARY: Chest is clear to auscultation, no wheezing or crackles. ABDOMEN: Soft, nontender, nondistended, normoactive bowel sounds. No palpable organomegaly. MUSCULOSKELETAL: No joint swelling or deformity. EXTREMITIES: No cyanosis, clubbing, or pedal edema. NEUROLOGICAL: Gross neurological examination did not reveal any focal deficits. SKIN: Bilateral chronic venous stasis and will be dermatitis no pitting edema at this time.. Assessment and plan Uncontrolled elevated blood sugars: Secondary to dietary noncompliance. Patient will be resumed on home regimen continue with sliding scale insulin ACHS with scheduled short acting and levemir which was increased today. -Mild hypoxia probably secondary to emphysema patient is presently not in COPD exacerbation, mention of interstitial prominence, BNP was 166 patient is on room air. -COPD without any acute exacerbation -hyperlipidemia -Hypertension -hypervascular disease -continued nicotine use: Counseling was provided -Lung cancer was recently diagnosed will undergo lobectomy in Wednesday DVT prophylaxis: Lovenox Full Code The impression and plan of care has been dictated by Joana Diaz Nurse Practitioner as directed. Dr. Gay MD I have performed a history and physical examination and medical decision making of this patient, discussed the same with the dictator, and agree with the dictators assessment and plan as written, documented as a scribe. Based on total visit time, I have performed more than 50% of this visit. Objective - Vital Signs Vital signs: Vital Signs Temp 98.0 F 03/13/23 07:07 Pulse 70 03/13/23 09:15 Resp 16 03/13/23 09:15 BP 166/74 03/13/23 07:07 Pulse Ox 96 03/13/23 07:25 FiO2 21 03/12/23 07:51 Intake & Output 03/12/23 03/13/23 03/13/23 18:59 06:59 18:59 Intake Total 540 Balance 540 Intake: Oral 540 Other: Voiding Method Toilet Toilet Toilet # Voids 1 3 - Labs CBC & Chem 7: 03/13/23 04:44 03/13/23 04:44 Labs: Abnormal Lab Results - Last 24 Hours (Table) 03/12/23 03/12/23 03/12/23 Range/Units 06:06 11:49 17:33 Plt Count (140-440) X 10*3/uL POC Glucose (mg/dL) 318 H 370 H (70-110) mg/dL Hemoglobin A1c 9.8 H (<=6.0) % 03/12/23 03/13/23 03/13/23 Range/Units 20:14 04:44 07:05 Plt Count 91 L (140-440) X 10*3/uL POC Glucose (mg/dL) 193 H 213 H (70-110) mg/dL Hemoglobin A1c (<=6.0) % Assessment and Plan Time with Patient: Less than 30
[2023-03-13 17:09] LABS: Glucose,Whole Blood 254 mg/dL (70-110)
[2023-03-13 20:15] LABS: Glucose,Whole Blood 235 mg/dL (70-110)
[2023-03-14 02:00] LABS: Glucose,Whole Blood 198 mg/dL (70-110)
[2023-03-14] MEDS: INSULIN ASPART (NovoLOG) 100 UNIT/ML VIAL SQ SCH ×8 (02:02→20:38)
[2023-03-14 07:12] LABS: Glucose,Whole Blood 188 mg/dL (70-110)
[2023-03-14] MEDS: IPRATROPIUM 0.5 MG/2.5 ML NEBU INHALATION SCH ×4 (07:49→22:13)
[2023-03-14] MEDS: SYMBICORT 80-4.5 MCG INHALER INHALATION SCH ×2 (07:49→22:13)
[2023-03-14] MEDS: ENOXAPARIN 40 MG/0.4 ML SYRINGE SQ SCH (08:10)
[2023-03-14] MEDS: INSULIN DETEMIR (LEVEMIR) 100 UNIT/ML SYR SQ SCH ×2 (08:10→20:37)
[2023-03-14] MEDS: ATORVASTATIN 10 MG TAB PO SCH (08:11)
[2023-03-14] MEDS: LOSARTAN 50 MG TAB PO SCH (08:11)
[2023-03-14] MEDS: NICOTINE 7MG/24HR PATCH TRANSDERM SCH (08:11)
[2023-03-14] MEDS: FOLIC ACID 1 MG TAB PO SCH (08:11)
[2023-03-14] MEDS: GABAPENTIN 400 MG CAP PO SCH ×3 (08:11→20:37)
[2023-03-14] MEDS: THIAMINE 100 MG TAB PO SCH (08:11)
--- NOTE | 2023-03-14 09:34 | P.PN ---
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 Patient was again encouraged to be out of bed all day and in bed to sleep at night only. Currently on room air. Blood sugars better controlled, under 200 this morning although does still have room for improvement and should have insulin continue to be up titrated by primary. A1c reportedly 9.8%, clearly patient has been uncontrolled for quite some time. No signs of alcohol withdrawal although patient is sleeping every time we entered the room. No other new concerns. Objective - Vital Signs Vital signs: Vital Signs Temp 98.3 F 03/14/23 07:13 Pulse 100 03/14/23 08:03 Resp 16 03/14/23 07:13 BP 180/76 03/14/23 07:13 Pulse Ox 95 03/14/23 07:13 FiO2 21 03/12/23 07:51 Intake & Output 03/13/23 03/14/23 03/14/23 18:59 06:59 18:59 Weight 78.925 kg Other: Voiding Method Toilet Toilet Toilet # Voids 1 1 # Bowel Movements 1 1 - Exam CONSTITUTIONAL: Appears comfortable, no acute distress RESPIRATORY: Lungs sounds diminished bilaterally. Respirations even, nonlabor ed. Currently on room air with oxygen saturation 95%. Able to achieve 1500 mL on incentive spirometry CARDIOVASCULAR: S1, S2 present. Regular rate and rhythm. Palpable peripheral pulses bilaterally. No edema present. No calf pain or tenderness noted GASTROINTESTINAL: Abdomen soft, nontender, nondistended. Active bowel sounds present 4 quadrants. Tolerating diet. GENITOURINARY: Continues to void although not measured INTEGUMENTARY: Skin is warm and dry NEUROLOGIC: Cranial nerves II through XII intact MUSKULOSKELETAL: Able to move all extremities, slightly weaker on the right w hich is chronic due to previous stroke PSYCHIATRIC: Sleepy but arouses, oriented to person place and time, flat affect - Allied health notes Allied health notes reviewed: nursing - Labs CBC & Chem 7: 03/13/23 04:44 03/13/23 04:44 Labs: Abnormal Lab Results - Last 24 Hours (Table) 03/13/23 03/13/23 03/13/23 Range/Units 04:44 11:56 17:08 BUN/Creatinine Ratio 21.43 H (12.00-20.00) Ratio Glucose 191 H (70-110) mg/dL POC Glucose (mg/dL) 365 H 254 H (70-110) mg/dL Calcium 8.6 L (8.7-10.3) mg/dL 03/13/23 03/14/23 03/14/23 Range/Units 20:12 01:57 07:11 BUN/Creatinine Ratio (12.00-20.00) Ratio Glucose (70-110) mg/dL POC Glucose (mg/dL) 235 H 198 H 188 H (70-110) mg/dL Calcium (8.7-10.3) mg/dL Assessment and Plan Assessment: Insulin dependent diabetes with poor glycemic control, hyperglycemia, A1c 9.8% Hypomagnesemia Left upper lobe mass positive for well-differentiated adenocarcinoma Current tobacco dependence Moderate COPD, preoperative FEV1 54% of predicted, DLCO 36% of predicted Current daily EtOH use Hypertension Hyperlipidemia Stroke in 2015 with right-sided weakness Hepatitis B and C Bipolar depression History of 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 Patient should be out of bed for all meals, she should be out of bed the majority of the day and use the bed for sleeping at nighttime only Spirometry encouraged Monitor for alcohol withdrawal, thiamine and folic acid ordered, magnesium replaced Nicotine patch in place Smoking cessation counseling and education reinforced Our plan is for robotic-assisted thoracoscopic left upper lobectomy on March [address] June as long as blood sugars normalize Medical management of other comorbidities per internal medicine
[2023-03-14 11:46] LABS: HCT 39.7 % (37.2-46.3); HGB 13.4 g/dL (12.0-15.0); MCH 31.5 pg (27.0-32.0); MCHC 33.8 g/dL (32.0-37.0); MCV 93.2 FL (80.0-97.0); Mean Platelet Volume 10.9 FL (9.5-12.2); NRBC Per 100 WBC 0 X 10*3/uL (0.00-0.01); Platelet Count 96 X 10*3/uL (140-440); RBC 4.26 X 10*6/uL (4.10-5.20); RDW 12.3 % (11.5-14.5); WBC 5.97 X 10*3/uL (4.50-10.00)
[2023-03-14 12:10] LABS: Glucose,Whole Blood 312 mg/dL (70-110)
[2023-03-14 13:18] LABS: ALT 90 U/L (8-44); AST 109 U/L (13-35); Albumin/Globulin Ratio 0.81 Ratio (1.60-3.17); Alkaline Phosphatase 69 U/L (41-126); BUN/Creat Ratio 20.86 Ratio (12.00-20.00); Blood Urea Nitrogen 14.6 mg/dL (9.0-27.0); Calcium 8.9 mg/dL (8.7-10.3); Carbon Dioxide 27.3 mmol/L (21.6-31.8); Chloride 102 mmol/L (96-109); Globulin 3.7 g/dL (1.6-3.3); Glucose 192 mg/dL (70-110); Magnesium 1.5 mg/dL (1.5-2.4); Potassium 4.3 mmol/L (3.5-5.5); Sodium 137 mmol/L (135-145); Total Bilirubin 0.8 mg/dL (0.3-1.2); Total Protein 6.7 g/dL (6.2-8.2)
[2023-03-14 17:08] LABS: Glucose,Whole Blood 256 mg/dL (70-110)
--- NOTE | 2023-03-14 19:16 | P.PN ---
Subjective Progress Note Date: 03/14/23 Patient is a 57-year-old female came in for elective pulmonary lobectomy for lung cancer found to have highly elevated blood sugars of 500 because of which patient was admitted patient last hemoglobin A1c was more than a year ago at that time it was 7.5 it appears patient may be noncompliant. Patient admits to drinking vodka with watermelon juice last night. Patient does have history of COPD continues to smoke 5 cigarettes per day is bit hypoxic. Chest x-ray showed some interstitial prominence although clinically patient doesn't appear to be in CHF patient does take 20 mg of Lasix at home patient has chronic venous stasis dermatosis of both legs and will be dermatitis. Patient is on Trulicity, 20 units of long-acting insulin along with metformin at home for diabetes with us. Patient blood sugars is presently about 300. Patient had a chest xray showing 1.2 cm let upper lobe pulmonary mass. She will be going for lung resection on Wednesday. 03/12/2023 Patient sitting up in bed today. Needs to be up in the chair for the day. Patient verbalized understanding. Blood glucose remains elevated. Levemir will be increased and scheduled insulin added. 03/13/2023 Patient evaluated [facility]. She is sitting up in the chair no acute complaints overnight. She is scheduled to undergo elective lobe resection on Wednesday. Blood glucose remains elevated at this time it has come down into the 190s however back up to 365. She is on a combination of sliding scale insulin as well as 3 units of scheduled and 25 units daily Levemir. These have been increased today. 03/14/2023 Patient is evaluated today, sitting up in chair. Patient to undergo elective lobe resection on wednesday with CT surgery. No acute complaints. Blood glucose remains elevated but overall improved, fluctuating between 188-312 this afternoon. REVIEW OF SYSTEMS: CONSTITUTIONAL: No fever, no malaise, no fatigue. HEENT: No recent visual problems or hearing problems. Denied any sore throat. CARDIOVASCULAR: No chest pain, orthopnea, PND, no palpitations, no syncope. PULMONARY: No shortness of breath, no cough, no hemoptysis. GASTROINTESTINAL: No diarrhea, no nausea, no vomiting, no abdominal pain. NEUROLOGICAL: No headaches, no weakness, no numbness. PHYSICAL EXAMINATION: GENERAL: The patient is drowsy and oriented x3, not in any acute distress. Well developed, well nourished. HEENT: Pupils are round and equally reacting to light. EOMI. No scleral icterus. No conjunctival pallor. Normocephalic, atraumatic. No pharyngeal erythema. No thyromegaly. CARDIOVASCULAR: S1 and S2 present. No murmurs, rubs, or gallops. PULMONARY: Chest is clear to auscultation, no wheezing or crackles. ABDOMEN: Soft, nontender, nondistended, normoactive bowel sounds. No palpable organomegaly. MUSCULOSKELETAL: No joint swelling or deformity. EXTREMITIES: No cyanosis, clubbing, or pedal edema. NEUROLOGICAL: Gross neurological examination did not reveal any focal deficits. SKIN: Bilateral chronic venous stasis and will be dermatitis no pitting edema at this time.. Assessment and plan Uncontrolled elevated blood sugars: Secondary to dietary noncompliance. Patient will be resumed on home regimen continue with sliding scale insulin ACHS with scheduled short acting and levemir which was increased today. -Mild hypoxia probably secondary to emphysema patient is presently not in COPD exacerbation, mention of interstitial prominence, BNP was 166 patient is on room air. -COPD without any acute exacerbation -hyperlipidemia -Hypertension -hypervascular disease -continued nicotine use: Counseling was provided -Lung cancer was recently diagnosed will undergo lobectomy in Wednesday DVT prophylaxis: Lovenox Full Code The impression and plan of care has been dictated by Joana Diaz, Nurse Practitioner as directed. Dr. Gay MD I have performed a history and physical examination and medical decision making of this patient, discussed the same with the dictator, and agree with the dictators assessment and plan as written, documented as a scribe. Based on total visit time, I have performed more than 50% of this visit. Objective - Vital Signs Vital signs: Vital Signs Temp 98.3 F 03/14/23 14:17 Pulse 68 03/14/23 12:54 Resp 16 03/14/23 12:54 BP 144/78 03/14/23 12:54 Pulse Ox 96 03/14/23 12:54 FiO2 21 03/12/23 07:51 Intake & Output 03/13/23 03/14/23 03/14/23 18:59 06:59 18:59 Weight 78.925 kg Other: Voiding Method Toilet Toilet Toilet # Voids 1 1 1 # Bowel Movements 1 1 - Labs CBC & Chem 7: 03/14/23 06:09 03/14/23 06:09 Labs: Abnormal Lab Results - Last 24 Hours (Table) 03/13/23 03/13/23 03/14/23 Range/Units 17:08 20:12 01:57 Plt Count (140-440) X 10*3/uL BUN/Creatinine Ratio (12.00-20.00) Ratio Glucose (70-110) mg/dL POC Glucose (mg/dL) 254 H 235 H 198 H (70-110) mg/dL AST (13-35) U/L ALT (8-44) U/L Albumin (3.8-4.9) g/dL Globulin (1.6-3.3) g/dL Albumin/Globulin Ratio (1.60-3.17) Ratio 03/14/23 03/14/23 03/14/23 Range/Units 06:09 06:09 07:11 Plt Count 96 L (140-440) X 10*3/uL BUN/Creatinine Ratio 20.86 H (12.00-20.00) Ratio Glucose 192 H (70-110) mg/dL POC Glucose (mg/dL) 188 H (70-110) mg/dL AST 109 H (13-35) U/L ALT 90 H (8-44) U/L Albumin 3.0 L (3.8-4.9) g/dL Globulin 3.7 H (1.6-3.3) g/dL Albumin/Globulin Ratio 0.81 L (1.60-3.17) Ratio 03/14/23 Range/Units 12:09 Plt Count (140-440) X 10*3/uL BUN/Creatinine Ratio (12.00-20.00) Ratio Glucose (70-110) mg/dL POC Glucose (mg/dL) 312 H (70-110) mg/dL AST (13-35) U/L ALT (8-44) U/L Albumin (3.8-4.9) g/dL Globulin (1.6-3.3) g/dL Albumin/Globulin Ratio (1.60-3.17) Ratio Assessment and Plan Time with Patient: Less than 30
[2023-03-14 20:32] LABS: Glucose,Whole Blood 256 mg/dL (70-110)
[2023-03-14] MEDS: LORazepam 1 MG TAB PO PRN (20:37)
--- NOTE | 2023-03-14 21:28 | XR ---
EXAMINATION TYPE: XR chest 2V DATE OF EXAM: 03/14/2023 8:05 PM CLINICAL INDICATION:Female, 57 years old with history of fever; [facility] COMPARISON: None TECHNIQUE: XR chest 2V. Frontal PA and lateral views of the chest. FINDINGS: Lines/Tubes: EKG leads overlie the chest. No indwelling lines are seen. Heart/mediastinum: Cardiomediastinal silhouette is well defined. Heart size upper normal. Atheroscl erotic calcifications are seen in the aorta. Pulmonary vascularity: Not increased, Lungs/Pleura: There is no evidence of pleural effusion, focal consolidation, or pneumothorax. Minor linear scarring or atelectasis in the left mid to lower lung zone. Musculoskeletal: No acute osseous abnormality demonstrated in the limits of the exam. Mild degenerat yadira changes. Other findings: None. IMPRESSION: Minor scarring or atelectasis on the left. No focal airspace disease.
[2023-03-15] MEDS: INSULIN ASPART (NovoLOG) 100 UNIT/ML VIAL SQ SCH ×9 (03:11→20:54)
[2023-03-15 03:12] LABS: Glucose,Whole Blood 207 mg/dL (70-110)
[2023-03-15 06:31] LABS: Glucose,Whole Blood 150 mg/dL (70-110)
[2023-03-15] MEDS ORDERED: MIDAZOLAM 2 MG/2 ML VIAL IVP ONE (06:43)
[2023-03-15] MEDS ORDERED: ONDANSETRON 4 MG/2 ML VIAL IVP ONE ×2 (07:00→07:29)
[2023-03-15] MEDS ORDERED: DEXAMETHASONE SOD PHOSPHATE 4 MG/ML 1 ML VIAL IV ONE (07:00)
[2023-03-15] MEDS ORDERED: MIDAZOLAM 2 MG/2 ML VIAL IV PRN (07:00)
[2023-03-15] MEDS ORDERED: fentaNYL (PF) 50 MCG/ML 2 ML AMP IV PRN (07:00)
[2023-03-15] MEDS ORDERED: LACTATED RINGERS 1,000 ML IV SCH (07:00)
[2023-03-15] MEDS ORDERED: LIDOCAINE 1% INJ 10MG/ML (20 ML MDV) ONE (07:28)
[2023-03-15] MEDS ORDERED: GLYCOPYRROLATE 0.2 MG/ML 2 ML VIAL ONE (07:28)
[2023-03-15] MEDS ORDERED: SUGAMMADEX SODIUM 200 MG/2 ML SDV IV ONE (07:28)
[2023-03-15] MEDS ORDERED: DEXAMETHASONE SOD PHOSPHATE 4 MG/ML 1 ML VIAL ONE (07:28)
[2023-03-15] MEDS ORDERED: fentaNYL (PF) 50 MCG/ML 2 ML AMP ONE (07:28)
[2023-03-15] MEDS ORDERED: ROPIVACAINE 5 MG/ML 30 ML VIAL ONE (07:28)
[2023-03-15] MEDS ORDERED: MIDAZOLAM 2 MG/2 ML VIAL ONE (07:28)
[2023-03-15] MEDS ORDERED: NEOSTIGMINE 1 MG/ML 10 ML VIAL ONE (07:28)
[2023-03-15] MEDS ORDERED: SUCCINYLCHOLINE CHLORIDE 200 MG/10 ML VIAL IV ONE (07:28)
[2023-03-15] MEDS ORDERED: ROCURONIUM 10 MG/ML (5 ML VIAL) IV ONE (07:28)
[2023-03-15] MEDS ORDERED: PHENYLEPHRINE-0.9% NACL SYG 1,000 MCG/10 ML SYRINGE ONE (07:28)
[2023-03-15] MEDS ORDERED: PROPOFOL 10 MG/ML 20 ML VIAL IV ONE (07:28)
[2023-03-15] MEDS ORDERED: SODIUM CHLORIDE 0.9% (PF) 10 ML VIAL ONE (07:28)
[2023-03-15] MEDS ORDERED: ceFAZolin 1,000 MG VIAL ONE (08:00)
[2023-03-15] MEDS ORDERED: SODIUM CHLORIDE 0.9% 50 ML with ceFAZolin 2,000 MG IV ONE ×2 (08:00)
[2023-03-15] MEDS: SYMBICORT 80-4.5 MCG INHALER INHALATION SCH ×2 (08:05→19:39)
[2023-03-15] MEDS: IPRATROPIUM 0.5 MG/2.5 ML NEBU INHALATION SCH ×2 (08:05→11:37)
[2023-03-15] MEDS ORDERED: BUPIVACAINE (PF) 0.5% 30 ML VIAL SQ ONE ×3 (08:39→10:28)
[2023-03-15 09:19] LABS: Glucose,Whole Blood 176 mg/dL (70-110)
--- NOTE | 2023-03-15 11:18 | P.OP ---
Date of Procedure: 03/15/23 Preoperative Diagnosis: Non-small cell carcinoma left upper lobe Postoperative Diagnosis: Same Procedure(s) Performed: Robotic-assisted thoracoscopic left upper lobectomy with mediastinal lymph node dissection, fiberoptic bronchoscopy for evacuation of inspissated sputum Anesthesia: DION Surgeon: Beka Juen Vulcanizer #1: Yann Breen Estimated Blood Loss (ml): 15 IV fluids (ml): 1,000 Urine output (ml): 200 Pathology: other (Left upper lobe with frozen section bronchial margin; lymph node stations L5, L6, L9, L 10, L 11, level 7) Condition: stable Disposition: PACU Indications for Procedure: 57-year-old female with multiple medical problems presents with new nodule in the left upper lobe. Bronchoscopic biopsy is positive for squamous cell carcinoma. Nodes are negative by CT, PET and EBUS criteria. Patient has multiple medical problems including active smoking, active alcohol abuse, history of IV drug abuse, really controlled diabetes mellitus, highly abnormal EKG. She underwent workup by Dr. Crooks and was cleared for surgery. Her ECOG level is 1. She was electively admitted for lobectomy on March 12 but her glucose was over 500. Was decided to admit her to the hospital for medical optimization and received with her surgery WednesdayMarch 16. Operative Findings: On initial intubation, there was thick inspissated sputum both the right and left sides.'s was irrigated and suctioned clear. On entering the pleural space, there were fair number of adhesions which were taken down with electrocautery. The fissures were near complete. Frozen section of the bronchial margin was negative. Lymph nodes were anthracotic without evidence of metastatic disease grossly. On reinflating the left lower lobe, initially it would not inflate. F iberoptic bronchoscopy demonstrated a small amount of clot as well as more inspissated sputum. This was irrigated and suctioned free. After chest closure. Removal of the drapes and turning the patient supine, she was reintubated with a 8 tube and re-bronchoscoped and further inspissated sputum was evacuated from both the left and right endobronchial trees. Description of Procedure: Patient was brought to the operating room and placed supine on the operating table. Gen. anesthesia was induced. She was intubated with a double-lumen endotracheal tube. The tube was positioned with fiberoptic bronchoscopy and bronchoscopically guided irrigation and suctioning of the left and right bronchial were performed in order to clear inspissated sputum. Tube was secured and the patient was turned in the right lateral decubitus position. She was appropriately positioned for robotic lobectomy. The left chest was sterilely prepped and draped. Single lung ventilation was initiated. Initial incision was made in the eighth interspace in the anterior axillary line and 8 mm robotic port was placed. After assuring placement of the scope and port in the pleural space, CO2 insufflation was begun. 212 mm ports were placed anterior and posterior to the initial 8 mm port and a second 8 mm port was placed posteriorly in the interspace. A working port was placed between the 2 anteriormost ports at the level of the diaphragm. The robot was docked. Adhesions were taken down with a robotic cautery. The fissure was explored pulmonary artery was exposed at the base of the fissure. L 10 and L 11 lymph nodes were dissected out from the fissure posteriorly and the lingular artery was identified and encircled. The lingular artery was taken with a single firing of a robotic white stapler. Attention was now directed to the inferior pulmonary ligament which was taken down with electrocautery. L 9 lymph nodes were resected. Dissection was carried posteriorly and the inferior and superior limits of the inferior pulmonary vein were identified. Dissection was carried along base of the mainstem bronchus and the level 7 lymph nodes were resected. Dissection was carried more superiorly and the level lymph nodes were resected. Attention was now directed anteriorly. Superior pulmonary vein was dissected out and encircled. Was ligated and divided with a robotic vascular stapler. Dissection was carried onto the bronchus and further L 10 lymph nodes were resected. The bronchus was encircled ligated and divided with a robotic green stapler. Dissection was carried further up onto the pulmonary artery. 2 remaining branches of the pulmonary artery leading to the upper lobe were identified and separately ligated and divided with robotic white staplers. The remaining pleura was resected freeing the left upper lobe which was placed in an Endo Catch bag. The end of the bag was brought out through the working port and the working port was removed. This incision was enlarged to allow exit of the back from the pleural space. The robot was undocked. Specimen was examined on the back table and sent for frozen margin of the bronchial margin which returned negative. Chest cavity was explored. There was no significant bleeding. Bronchial stump was tested under water and noted to not leak. Expansion of the left lower lobe was suboptimal. We re-bronchoscope and reirrigated the patient and were able to reestablish airflow to the lower lobe. 28-Korean chest tube was placed through separate stab incision anteriorly and positioned posterior apically. It was secured with 0 Ethibond suture. Incisions were closed with layers of Vicryl suture. Skin glue and dry sterile dressings were applied. Rib blocks were performed posteriorly with half percent Marcaine. Patient was turned supine on the table and reintubated with a 8 mm endotracheal tube. He is bronchoscoped with the therapeutic Bronk and further irrigation and suctioning of inspissated sputum was performed until the bronchial were clear. Patient was then extubated and transferred to recovery in stable condition.
[2023-03-15] MEDS ORDERED: HYDROmorphone 0.5 MG/0.5 ML SYRINGE IVP ONE (11:23)
[2023-03-15 11:35] LABS: Glucose,Whole Blood 233 mg/dL (70-110)
[2023-03-15] MEDS: IPRATROPIUM-ALBUTEROL 3 ML NEB IH SCH ×3 (11:39→19:38)
[2023-03-15] MEDS ORDERED: ALBUTEROL NEBULIZED 2.5 MG/3 ML INHALATION ONE (11:47)
[2023-03-15] MEDS ORDERED: INSULIN ASPART (NovoLOG) 100 UNIT/ML VIAL SQ ONE (11:56)
--- NOTE | 2023-03-15 12:37 | XR ---
EXAMINATION TYPE: XR chest 1V portable DATE OF EXAM: 03/15/2023 COMPARISON: NONE HISTORY: Post left upper lobe lobectomy TECHNIQUE: Single frontal view of the chest is obtained. FINDINGS: There is no focal air space opacity, pleural effusion, or pneumothorax seen. The cardiac silhouette size is within normal limits. The osseous structures are intact. A left-sided chest tube and subcutaneous air. There is left-sided consolidation and small effusion. 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 IMPRESSION: 1. Left-sided consolidation and small effusion with no sizable pneumothorax. Chest tube in position.
[2023-03-15 12:38] LABS: Glucose,Whole Blood 260 mg/dL (70-110)
[2023-03-15] MEDS: FOLIC ACID 1 MG TAB PO SCH (12:43)
[2023-03-15] MEDS: ATORVASTATIN 10 MG TAB PO SCH (12:43)
[2023-03-15] MEDS: GABAPENTIN 400 MG CAP PO SCH ×3 (12:44→20:54)
[2023-03-15] MEDS: THIAMINE 100 MG TAB PO SCH (12:44)
[2023-03-15] MEDS: LOSARTAN 50 MG TAB PO SCH (12:45)
--- NOTE | 2023-03-15 12:59 | P.ANPRN ---
Procedure Note - Anesthesia - Invasive Line Right Arterial Line Time Out Performed: Yes Date of Procedure: 03/15/23 Time of Procedure: 07:09 Location of Patient: PreOp Preparation: Sterile Prep, Sterile Dressing Arterial Line Location: Radial Ultrasound Used: No Purpose - Visualization and Identification of Vasculature: No Image Stored and Saved: No Narrative: Central line placement per sterile protocol utilized.
--- NOTE | 2023-03-15 13:00 | P.ANPRN ---
Procedure Note - Anesthesia - Nerve Block Performed Left Erector Spinae Single Time Out Performed: Yes Date of Procedure: 03/15/23 Procedure Start Time: 07:13 Procedure Stop Time: 07:15 Location of Patient: PreOp Indication: Acute Post-Operative Pain, Requested by Surgeon Sedation Type: Sedate with meaningful contact maintained Preparation: Sterile Prep Position: Sitting Needle Types: Pajunk Needle Gauge: 21 Ultrasound used to visualize needle placement: Yes Ultrasound used to observe medication spread: Yes Blood Aspirated: No Pain Paresthesia on Injection Noted: No Resistance on Injection: Normal Image Stored and Saved: Yes Events: Uneventful and Well Tolerated (ropi .5% 10ccc plus ns 10cc plus dexamethasone 4mg)
[2023-03-15] MEDS ORDERED: bisacodyL 10 MG SUPP RECTAL PRN (13:06)
[2023-03-15] MEDS ORDERED: SODIUM CHLORIDE 0.9% 1,000 ML IV SCH (13:06)
[2023-03-15] MEDS ORDERED: ONDANSETRON 4 MG/2 ML VIAL IVP PRN (13:06)
[2023-03-15] MEDS ORDERED: IPRATROPIUM-ALBUTEROL 3 ML NEB IH PRN (13:06)
[2023-03-15] MEDS: ENOXAPARIN 40 MG/0.4 ML SYRINGE SQ SCH (13:10)
[2023-03-15] MEDS: NICOTINE 7MG/24HR PATCH TRANSDERM SCH (13:54)
[2023-03-15] MEDS ORDERED: fentaNYL (PF) 50 MCG/ML 2 ML AMP IVP ONE (14:35)
[2023-03-15] MEDS: INSULIN DETEMIR (LEVEMIR) 100 UNIT/ML SYR SQ SCH ×2 (14:46→20:55)
--- NOTE | 2023-03-15 15:50 | P.CNPUL ---
History of Present Illness Consult date: 03/15/23 Requesting physician: Joel Lopez Reason for consult: COPD, lung mass Chief complaint: Lung cancer, status post lobectomy History of present illness: Pulmonary consult dated 03/15/2023. This is a 57-year-old female who was admitted for possible left upper lobectomy, by Dr. June. Initially, the patient had a significant elevation in her blood, and the surgery was delayed. It was finally done today. He did call me after the procedure. In December of this year, my partner, did a flexible bronchoscopy, robotically-assisted bronchoscopy, and biopsies, the lesion, and the left upper lobe. The biopsies were positive for well-differentiated pulmonary adenocarcinoma. Currently, the patient's resting comfortably in the intensive care unit. The patient's on 4 L of oxygen, and getting saline at 50 mL an hour. Again as I mentioned above, I did speak to the surgeon about this patient. He was concerned that she may need bronchoscopy over the next few days, for left lung collapse. Apparently her airways were full of mucus. Currently labs data only includes a glucose of 260. Chest x-ray shows a left- sided consolidation and a small effusion, with no sizable pneumothorax. Chest tube is noted. Labs from yesterday include a white count of 5.9, hemoglobin 13.4, hematocrit 39.7, and a platelet count of 96,000. Sodium 137, potassium 4.3, chlorides 102, CO2 27, UN 15, and creatinine 0.7. N-terminal proBNP was 166. Review of Systems REVIEW OF SYSTEMS: CONSTITUTIONAL: [Negative.] NEUROLOGIC: [ Negative.] HEENT: [ Negative.] CARDIAC: [Negative.] PULMONARY: Chronic shortness of breath. GI: [Negative.] : [Negative.] RHEUMATOLOGIC: [ Negative.] IMMUNOLOGIC: [ Negative.] ENDOCRINE: [Negative. ] DERMATOLOGIC: [Negative.] Past Medical History Past Medical History: Cancer, COPD, CVA/TIA, Diabetes Mellitus, Hyperlipidemia, Hypertension, Liver Disease, Skin Disorder, Vascular Disorder Additional Past Medical History / Comment(s): HX past alcoholism and heroin abuse, "DX hepatitis b and c", stroke in 04/2015 with right sided weakness, recent dx. lung cancer, rash lower legs, circulation issues lower legs-causes leg pain History of Any Multi-Drug Resistant Organisms: None Reported Past Surgical History: Cholecystectomy, Orthopedic Surgery, Tonsillectomy, Tubal Ligation Additional Past Surgical History / Comment(s): esophageal surgery as a baby, cervix biopsy. Left ankle fusion, right ankle, recent bronchoscopy Past Anesthesia/Blood Transfusion Reactions: Motion Sickness, Postoperative Nausea & Vomiting (PONV) Additional Past Anesthesia/Blood Transfusion Reaction / Comment(s): no reaction to blood Past Psychological History: Bipolar, Depression, PTSD Additional Psychological History / Comment(s): pt currently at [facility] since discharged 04-14-17 after having lt ankle sx Smoking Status: Current every day smoker Past Alcohol Use History: Daily, Heavy Additional Past Alcohol Use History / Comment(s): started smoking at age 10,was smoking 1.5 -2., down to <1/2ppd currently, trying to quit, past alcohol. abuse stated quit approx 1.5 years ago but before that had been drinking a fifth of vodka daily for 5 years. has recently started drinking again, 1 pint every other day, states because anxious about new dx. Past Drug Use History: Heroin, IV Drug Use Additional Drug Use History / Comment(s): Hx of heroin use, last time used was august 2018, past hx. IVD abuse - Past Family History Mother Additional Family Medical History / Comment(s): "chorea bill disease" Father Family Medical History: Liver Disease Additional Family Medical History / Comment(s): alcoholic Medications and Allergies Home Medications Medication Instructions Recorded Confirmed Type Atorvastatin [Lipitor] 10 mg PO DAILY 02/12/22 03/11/23 History Furosemide [Lasix] 20 mg PO DAILY 02/12/22 03/11/23 History Gabapentin 800 mg PO TID 05/22/22 03/11/23 History Losartan Potassium [Cozaar] 50 mg PO DAILY 30 Days #60 tab 05/27/22 03/11/23 Rx Dulaglutide [Trulicity] 1.5 mg SQ TU 12/31/22 03/11/23 History Insulin Glargine,Hum.rec.anlog 15 unit SQ DAILY 12/31/22 03/11/23 History [Lantus Solostar Pen] Fluticasone/Umeclidin/Vilanter 1 puff INHALATION RT-DAILY 03/09/23 03/11/23 History [Trelegy Ellipta 100-62.5-25] LORazepam [Ativan] 0.5 mg PO BID PRN 03/09/23 03/11/23 History Allergies Allergy/AdvReac Type Severity Reaction Status Date / Time hydromorphone HCl Allergy Unknown Rash/Hives/ Verified 03/15/23 06:16 [From Dilaudid] Itchy Physical Exam Osteopathic Statement: *. No significant issues noted on an osteopathic structural exam other than those noted in the History and Physical/Consult. Vitals: Vital Signs Temp Pulse Pulse Resp BP BP Pulse Ox 03/15/23 15:00 84 14 95 03/15/23 14:30 88 16 93 L 03/15/23 14:00 86 18 97 03/15/23 13:30 90 12 94 L 03/15/23 13:00 85 16 97 03/15/23 12:30 97.5 F L 86 18 96 03/15/23 11:55 83 18 148/84 99 03/15/23 11:40 83 18 134/69 97 03/15/23 11:30 89 18 148/85 93 L 03/15/23 11:20 82 18 135/63 93 L 03/15/23 11:10 97.4 F L 83 20 115/60 93 L 03/15/23 07:20 71 16 180/70 98 03/15/23 06:30 97.9 F 72 16 166/75 92 L 03/15/23 02:00 98.2 F 76 17 146/75 93 L 03/14/23 22:25 70 03/14/23 22:14 72 03/14/23 20:00 98.5 F 75 16 171/80 99 Intake and Output 03/15/23 03/15/23 03/15/23 06:59 14:59 22:59 Intake Total 950 1400 Output Total 250 Balance 950 1150 Intake: IV 1400 Oral 950 Output: Urine 200 Estimated Blood Loss 50 Other: # Voids 3 # Bowel Movements 1 ABP, PAP, CO, CI - Last 8 Hours Arterial Blood Pressure 117/54 Arterial Blood Pressure 119/59 Arterial Blood Pressure 117/57 Arterial Blood Pressure 119/56 Arterial Blood Pressure 111/55 No acute distress, oriented 3. Currently on 4 L of oxygen. HEENT examination is grossly unremarkable. Mucous membranes are moist. No oral lesions. Neck supple. Full range of motion. No adenopathy thyromegaly or neck vein distention. Cardiovascular examination reveals regular rhythm rate. S1-S2 normal. No S3 or S4. No discernible murmur noted. Heart rate 84 bpm. Lungs reveal diminished bilateral breath sounds, left greater than right. 4 L saturation is 95%. Scattered rhonchi noted primarily on the left side. A left- sided chest tube is noted. Abdomen soft bowel sounds are heard. No masses or tenderness. Extremities are intact. No cyanosis clubbing or edema. Skin is without rash or lesion. Neurologic examination is brief but nonfocal. Results - Laboratory Findings CBC and BMP: 03/14/23 06:09 03/14/23 06:09 Abnormal lab findings: Abnormal Labs 03/11/23 03/11/23 03/11/23 08:39 09:05 09:05 Plt Count 92 L Sodium 136 L BUN/Creatinine Ratio Glucose 513 H* POC Glucose (mg/dL) 471 H Hemoglobin A1c Calcium Magnesium 1.4 L AST 99 H ALT 93 H Albumin 3.2 L Globulin Albumin/Globulin Ratio Urine Glucose (UA) 03/11/23 03/11/23 03/11/23 11:39 12:10 12:29 Plt Count Sodium BUN/Creatinine Ratio Glucose POC Glucose (mg/dL) 390 H 372 H Hemoglobin A1c Calcium Magnesium AST ALT Albumin Globulin Albumin/Globulin Ratio Urine Glucose (UA) 4+ H 03/11/23 03/11/23 03/11/23 14:28 16:39 17:54 Plt Count Sodium BUN/Creatinine Ratio Glucose POC Glucose (mg/dL) 313 H 216 H 254 H Hemoglobin A1c Calcium Magnesium AST ALT Albumin Globulin Albumin/Globulin Ratio Urine Glucose (UA) 03/12/23 03/12/23 03/12/23 06:06 06:06 06:06 Plt Count 100 L Sodium BUN/Creatinine Ratio Glucose 261 H POC Glucose (mg/dL) Hemoglobin A1c 9.8 H Calcium Magnesium AST ALT Albumin Globulin Albumin/Globulin Ratio Urine Glucose (UA) 03/12/23 03/12/23 03/12/23 07:09 11:49 17:33 Plt Count Sodium BUN/Creatinine Ratio Glucose POC Glucose (mg/dL) 238 H 318 H 370 H Hemoglobin A1c Calcium Magnesium AST ALT Albumin Globulin Albumin/Globulin Ratio Urine Glucose (UA) 03/12/23 03/13/23 03/13/23 20:14 04:44 04:44 Plt Count 91 L Sodium BUN/Creatinine Ratio 21.43 H Glucose 191 H POC Glucose (mg/dL) 193 H Hemoglobin A1c Calcium 8.6 L Magnesium AST ALT Albumin Globulin Albumin/Globulin Ratio Urine Glucose (UA) 03/13/23 03/13/23 03/13/23 07:05 11:56 17:08 Plt Count Sodium BUN/Creatinine Ratio Glucose POC Glucose (mg/dL) 213 H 365 H 254 H Hemoglobin A1c Calcium Magnesium AST ALT Albumin Globulin Albumin/Globulin Ratio Urine Glucose (UA) 03/13/23 03/14/23 03/14/23 20:12 01:57 06:09 Plt Count 96 L Sodium BUN/Creatinine Ratio Glucose POC Glucose (mg/dL) 235 H 198 H Hemoglobin A1c Calcium Magnesium AST ALT Albumin Globulin Albumin/Globulin Ratio Urine Glucose (UA) 03/14/23 03/14/23 03/14/23 06:09 07:11 12:09 Plt Count Sodium BUN/Creatinine Ratio 20.86 H Glucose 192 H POC Glucose (mg/dL) 188 H 312 H Hemoglobin A1c Calcium Magnesium AST 109 H ALT 90 H Albumin 3.0 L Globulin 3.7 H Albumin/Globulin Ratio 0.81 L Urine Glucose (UA) 03/14/23 03/14/23 03/15/23 17:07 20:31 03:10 Plt Count Sodium BUN/Creatinine Ratio Glucose POC Glucose (mg/dL) 256 H 256 H 207 H Hemoglobin A1c Calcium Magnesium AST ALT Albumin Globulin Albumin/Globulin Ratio Urine Glucose (UA) 03/15/23 03/15/23 03/15/23 06:29 09:17 11:28 Plt Count Sodium BUN/Creatinine Ratio Glucose POC Glucose (mg/dL) 150 H 176 H 233 H Hemoglobin A1c Calcium Magnesium AST ALT Albumin Globulin Albumin/Globulin Ratio Urine Glucose (UA) 03/15/23 12:29 Plt Count Sodium BUN/Creatinine Ratio Glucose POC Glucose (mg/dL) 260 H Hemoglobin A1c Calcium Magnesium AST ALT Albumin Globulin Albumin/Globulin Ratio Urine Glucose (UA) - Diagnostic Findings Chest x-ray: image reviewed Assessment and Plan Assessment: Postop day #0, status post robotically assisted thoracoscopic left upper lobectomy with mediastinal lymph node dissection. Intraoperative bronchoscopy, for airway secretion control. History of chronic obstructive pulmonary disease. History of CVA. History of diabetes mellitus. History of hypertension. History of hyperlipidemia. History of alcohol abuse and heroin abuse. History of hepatitis B and C. Plan: Plan dated 03/15/2023. Dr. June, was kind enough call me about this patient, and give me a heads up so to speak. The patient required intraoperative bronchoscopy, for airway secretion. He suggested that she may need follow-up bronchoscopy, throughout her hospitalization. The patient was seen in the intensive care unit, room 257. The patient has a left-sided chest tube. She continues on oxygen at 4 L. She's getting saline at 50 mL an hour. Labs, x-rays, and medications are reviewed. We spoke to the nurse about this patient. Additional recommendations and suggestions are forthcoming. Prognosis is guarded. Time with Patient: Greater than 30
[2023-03-15 16:13] LABS: Glucose,Whole Blood 288 mg/dL (70-110)
[2023-03-15] MEDS ORDERED: SODIUM CHLORIDE 0.9% 1,000 ML IV ONE (16:45)
[2023-03-15] MEDS: traMADol 50 MG TAB PO PRN ×2 (17:12→22:16)
[2023-03-15] MEDS ORDERED: hydrALAZINE HCL 20 MG/ML 1 ML VIAL IVP PRN (17:37)
[2023-03-15] MEDS ORDERED: CLEVIDIPINE BUTYRATE 25 MG in EMPTY BAG 1 BAG IV SCH (17:45)
[2023-03-15 18:33] LABS: Glucose,Whole Blood 206 mg/dL (70-110)
[2023-03-15 19:02] LABS: Glucose,Whole Blood 211 mg/dL (70-110)
[2023-03-15] MEDS: ACETAMINOPHEN TAB 325 MG TAB PO PRN (19:08)
[2023-03-15 20:05] LABS: Glucose,Whole Blood 194 mg/dL (70-110)
[2023-03-15 21:04] LABS: Glucose,Whole Blood 207 mg/dL (70-110)
[2023-03-15] MEDS: LORazepam 0.5 MG TAB PO PRN (22:31)
--- NOTE | 2023-03-15 22:36 | P.PN ---
Subjective Progress Note Date: 03/15/23 Patient is a 57-year-old female came in for elective pulmonary lobectomy for lung cancer found to have highly elevated blood sugars of 500 because of which patient was admitted patient last hemoglobin A1c was more than a year ago at that time it was 7.5 it appears patient may be noncompliant. Patient admits to drinking vodka with watermelon juice last night. Patient does have history of COPD continues to smoke 5 cigarettes per day is bit hypoxic. Chest x-ray showed some interstitial prominence although clinically patient doesn't appear to be in CHF patient does take 20 mg of Lasix at home patient has chronic venous stasis dermatosis of both legs and will be dermatitis. Patient is on Trulicity, 20 units of long-acting insulin along with metformin at home for diabetes with us. Patient blood sugars is presently about 300. Patient had a chest xray showing 1.2 cm let upper lobe pulmonary mass. She will be going for lung resection on Wednesday. 03/12/2023 Patient sitting up in bed today. Needs to be up in the chair for the day. Patient verbalized understanding. Blood glucose remains elevated. Levemir will be increased and scheduled insulin added. 03/13/2023 Patient evaluated [facility]. She is sitting up in the chair no acute complaints overnight. She is scheduled to undergo elective lobe resection on Wednesday. Blood glucose remains elevated at this time it has come down into the 190s however back up to 365. She is on a combination of sliding scale insulin as well as 3 units of scheduled and 25 units daily Levemir. These have been increased today. 03/14/2023 Patient is evaluated today, sitting up in chair. Patient to undergo elective lobe resection on wednesday with CT surgery. No acute complaints. Blood glucose remains elevated but overall improved, fluctuating between 188-312 this afternoon. 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 She will be monitored postoperati vely in the ICU. Blood glucose this AM down to 150 and 176. Still fluctuating in to the high 200s. Will continue with current regimen as patient will be NPO for surgery to avoid hypoglycemia. If she remains elevated insulin will be further increased. REVIEW OF SYSTEMS: CONSTITUTIONAL: No fever, no malaise, no fatigue. HEENT: No recent visual problems or hearing problems. Denied any sore throat. CARDIOVASCULAR: No chest pain, orthopnea, PND, no palpitations, no syncope. PULMONARY: No shortness of breath, no cough, no hemoptysis. GASTROINTESTINAL: No diarrhea, no nausea, no vomiting, no abdominal pain. NEUROLOGICAL: No headaches, no weakness, no numbness. PHYSICAL EXAMINATION: GENERAL: The patient is drowsy and oriented x3, not in any acute distress. Well developed, well nourished. HEENT: Pupils are round and equally reacting to light. EOMI. No scleral icterus. No conjunctival pallor. Normocephalic, atraumatic. No pharyngeal erythema. No thyromegaly. CARDIOVASCULAR: S1 and S2 present. No murmurs, rubs, or gallops. PULMONARY: Chest is clear to auscultation, no wheezing or crackles. ABDOMEN: Soft, nontender, nondistended, normoactive bowel sounds. No palpable organomegaly. MUSCULOSKELETAL: No joint swelling or deformity. EXTREMITIES: No cyanosis, clubbing, or pedal edema. NEUROLOGICAL: Gross neurological examination did not reveal any focal deficits. SKIN: Bilateral chronic venous stasis and will be dermatitis no pitting edema at this time.. Assessment and plan Uncontrolled elevated blood sugars: Secondary to dietary noncompliance. Continue with accuchecks ACHS 2 am an continue with levemir, sliding scale and scheduled novolog. -Mild hypoxia probably secondary to emphysema patient is presently not in COPD exacerbation, mention of interstitial prominence, BNP was 166 patient is on room air. -COPD without any acute exacerbation -hyperlipidemia -Hypertension -hypervascular disease -continued nicotine use: Counseling was provided -Lung cancer was recently diagnosed with non small cell and will undergo left upper lobectomy today. Patient will be monitored in the ICU postoperatively. PT/OT consultation needs reinforcement to be up out of bed. DVT prophylaxis: Lovenox Full Code The impression and plan of care has been dictated by Joana Diaz Nurse Practitioner as directed. Dr. Gay MD I have performed a history and physical examination and medical decision making of this patient, discussed the same with the dictator, and agree with the dictators assessment and plan as written, documented as a scribe. Based on total visit time, I have performed more than 50% of this visit. Objective - Vital Signs Vital signs: Vital Signs Temp 97.9 F 12/18/23 20:00 Pulse 90 03/15/23 22:00 Resp 30 H 03/15/23 22:00 BP 135/68 03/15/23 22:00 Pulse Ox 98 03/15/23 22:00 FiO2 21 03/12/23 07:51 Intake & Output 03/15/23 03/15/23 03/16/23 06:59 18:59 06:59 Intake Total 950 1900 100 Output Total 900 210 Balance 950 1000 -110 Intake: IV 1400 Intake, IV Titration 400 100 Amount Sodium Chloride 0.9% 1, 300 100 000 ml @ 999 mls/hr IV . Q1H1M ONE Rx#:[id number] ceFAZolin 2 gm In Sodium 100 Chloride 0.9% 50 ml @ 100 mls/hr IVPB Q8HR [facility] Rx# :[id number] Oral 950 100 Output: Chest Tube Drainage 60 Chest Tube Left 60 Drainage 300 Left 300 Urine 550 150 Estimated Blood Loss 50 Other: Voiding Method Toilet Indwelling Catheter # Voids 3 # Bowel Movements 1 ABP, PAP, CO, CI - Last Documented Arterial Blood Pressure 143/60 - Labs CBC & Chem 7: 03/14/23 06:09 03/14/23 06:09 Labs: Abnormal Lab Results - Last 24 Hours (Table) 03/15/23 03/15/23 03/15/23 Range/Units 03:10 06:29 09:17 POC Glucose (mg/dL) 207 H 150 H 176 H (70-110) mg/dL 03/15/23 03/15/23 03/15/23 Range/Units 11:28 12:29 16:12 POC Glucose (mg/dL) 233 H 260 H 288 H (70-110) mg/dL 03/15/23 03/15/23 03/15/23 Range/Units 18:32 19:01 20:04 POC Glucose (mg/dL) 206 H 211 H 194 H (70-110) mg/dL 03/15/23 Range/Units 21:02 POC Glucose (mg/dL) 207 H (70-110) mg/dL Assessment and Plan Time with Patient: Less than 30
[2023-03-15 22:49] LABS: Glucose,Whole Blood 166 mg/dL (70-110)
[2023-03-15 23:02] LABS: Glucose,Whole Blood 165 mg/dL (70-110)
[2023-03-15] MEDS: MORPHINE SULFATE 2 MG/ML SYRINGE IVP PRN (23:22)
[2023-03-16 00:09] LABS: Glucose,Whole Blood 200 mg/dL (70-110)
[2023-03-16 01:14] LABS: Glucose,Whole Blood 174 mg/dL (70-110)
[2023-03-16 02:15] LABS: Glucose,Whole Blood 170 mg/dL (70-110)
[2023-03-16] MEDS: INSULIN ASPART (NovoLOG) 100 UNIT/ML VIAL SQ SCH ×8 (02:33→21:07)
[2023-03-16] MEDS: MORPHINE SULFATE 2 MG/ML SYRINGE IVP PRN (02:44)
[2023-03-16 03:06] LABS: Glucose,Whole Blood 164 mg/dL (70-110)
[2023-03-16 04:14] LABS: Glucose,Whole Blood 191 mg/dL (70-110)
[2023-03-16 04:41] LABS: Basophils % (A) 0 %; Eosinophils % (A) 0 %; HCT 37.5 % (34.0-46.0); HGB 13.4 gm/dL (11.4-16.0); Lymphocytes # (A) 1.9 k/uL (1.0-4.8); Lymphocytes % (A) 17 %; MCH 33.8 pg (25.0-35.0); MCHC 35.6 g/dL (31.0-37.0); MCV 94.8 fL (80.0-100.0); Mean Platelet Volume 8.8; Monocytes # (A) 0.8 k/uL (0-1.0); Monocytes % (A) 7 %; Neutrophils # (A) 8.4 k/uL (1.3-7.7); Neutrophils % (A) 75 %; Platelet Count 105 k/uL (150-450); RBC 3.96 m/uL (3.80-5.40); RDW 13.1 % (11.5-15.5); WBC 11.2 k/uL (3.8-10.6)
[2023-03-16 04:54] LABS: African American GFR (CKD) >90 (>60 ml/min/1.73 sqM); Anion Gap 8 mmol/L; Blood Urea Nitrogen 14 mg/dL (7-17); Carbon Dioxide 28 mmol/L (22-30); Chloride 99 mmol/L (98-107); Glucose 178 mg/dL (74-99); Magnesium 1.4 mg/dL (1.6-2.3); Non-African American GFR(CKD) >90 (>60 ml/min/1.73 sqM); Potassium 3.9 mmol/L (3.5-5.1); Sodium 135 mmol/L (137-145)
[2023-03-16 05:06] LABS: Glucose,Whole Blood 164 mg/dL (70-110)
[2023-03-16] MEDS: MAGNESIUM SULFATE-D5W PMX 1 GM in DEXTROSE/WATER 1 100ML.BAG IVPB SCH ×4 (05:49→12:47)
[2023-03-16] MEDS: ACETAMINOPHEN TAB 325 MG TAB PO PRN (05:52)
[2023-03-16 06:42] LABS: Glucose,Whole Blood 190 mg/dL (70-110)
[2023-03-16] MEDS: INSULIN DETEMIR (LEVEMIR) 100 UNIT/ML SYR SQ SCH ×2 (06:54→21:07)
[2023-03-16] MEDS: PANTOPRAZOLE 40 MG TABLET PO SCH (07:00)
[2023-03-16] MEDS ORDERED: MORPHINE SULFATE 2 MG/ML SYRINGE IVP PRN (08:29)
[2023-03-16] MEDS: IPRATROPIUM-ALBUTEROL 3 ML NEB IH SCH ×4 (08:40→20:13)
[2023-03-16] MEDS: SYMBICORT 80-4.5 MCG INHALER INHALATION SCH ×2 (08:40→20:13)
--- NOTE | 2023-03-16 08:45 | P.PN ---
Subjective Progress Note Date: 03/16/23 Principal diagnosis: Insulin dependent diabetes with poor glycemic control, hyperglycemia, hypomagnesemia, left upper lobe mass positive for well-differentiated adenocarcinoma. History of current tobacco dependence, COPD, daily EtOH use, hypertension, hyperlipidemia, stroke in 2016 with right-sided weakness, hepatitis B and C, bipolar depression, IV heroin use with last use August 2018 POD#1 Robotic assisted thoracoscopic left upper lobectomy with mediastinal lymph node dissection, fiberoptic bronchoscopy for evacuation of inspissated sputum The patient was seen and examined this morning with Dr. Escobar sitting up in a recliner in the ICU in no acute distress, although she does complain that she had a rough night with pain control. Remains in sinus rhythm and hemodynami ben stable. Left pleural chest tube to continuous wall suction, no air leak present, 500 mL drainage since surgery. CXR, labs reviewed. Blood sugars under better control. No other new concerns. Objective - Vital Signs Vital signs: Vital Signs Temp 99.1 F 03/16/23 04:00 Pulse 90 03/16/23 07:00 Resp 16 03/16/23 07:00 BP 103/61 03/16/23 07:00 Pulse Ox 93 L 03/16/23 07:00 FiO2 21 03/12/23 07:51 Intake & Output 03/15/23 03/16/23 03/16/23 18:59 06:59 18:59 Intake Total 1900 550 50 Output Total 900 640 90 Balance 1000 -90 -40 Weight 84.4 kg Intake: IV 1400 Intake, IV Titration 400 550 50 Amount Sodium Chloride 0.9% 1, 550 50 000 ml @ 50 mls/hr IV . Q20H [facility] Rx#:[id number] Sodium Chloride 0.9% 1, 300 000 ml @ 999 mls/hr IV . Q1H1M ONE Rx#:[id number] ceFAZolin 2 gm In Sodium 100 Chloride 0.9% 50 ml @ 100 mls/hr IVPB Q8HR [facility] Rx# :[id number] Oral 100 Output: Chest Tube Drainage 60 50 Chest Tube Left 60 50 Drainage 300 Left 300 Urine 550 580 40 Estimated Blood Loss 50 Other: Voiding Method Indwelling Catheter ABP, PAP, CO, CI - Last Documented Arterial Blood Pressure 119/49 - Exam CONSTITUTIONAL: Appears comfortable, cooperative, no acute distress RESPIRATORY: Lungs sounds diminished bilaterally. Respirations even, nonlabored. Currently on 2 LPM NC with oxygen saturation 93%. Able to achieve 1000 mL on incentive spirometry. Strong cough. CARDIOVASCULAR: S1, S2 present. Regular rate and rhythm, sinus rhythm on telemetry. Palpable peripheral pulses bilaterally. No edema present. No calf pain or tenderness noted. SCDs present. GASTROINTESTINAL: Abdomen soft, nontender, nondistended. Active bowel sounds present 4 quadrants. Tolerating diet. Denies flatus GENITOURINARY: Cameron present draining clear, yellow urine. Output 1085 mL in the last 24 hours INTEGUMENTARY: Skin is warm and dry NEUROLOGIC: Cranial nerves II through XII intact MUSKULOSKELETAL: Able to move all extremities, strength equal bilaterally PSYCHIATRIC: Alert and oriented to person place and time, flat affect INVASIVE LINES AND TUBES: Left pleural chest tube present and connected to wall suction, no air leaks present, 500 mL serosanguineous drainage since surgery - Allied health notes Allied health notes reviewed: nursing - Labs CBC & Chem 7: 03/16/23 04:28 03/16/23 04:28 Labs: Abnormal Lab Results - Last 24 Hours (Table) 03/15/23 03/15/23 03/15/23 Range/Units 09:17 11:28 12:29 WBC (3.8-10.6) k/uL Plt Count (150-450) k/uL Neutrophils # (1.3-7.7) k/uL Sodium (137-145) mmol/L Creatinine (0.52-1.04) mg/dL Glucose (74-99) mg/dL POC Glucose (mg/dL) 176 H 233 H 260 H (70-110) mg/dL Calcium (8.4-10.2) mg/dL Magnesium (1.6-2.3) mg/dL 03/15/23 03/15/23 03/15/23 Range/Units 16:12 18:32 19:01 WBC (3.8-10.6) k/uL Plt Count (150-450) k/uL Neutrophils # (1.3-7.7) k/uL Sodium (137-145) mmol/L Creatinine (0.52-1.04) mg/dL Glucose (74-99) mg/dL POC Glucose (mg/dL) 288 H 206 H 211 H (70-110) mg/dL Calcium (8.4-10.2) mg/dL Magnesium (1.6-2.3) mg/dL 03/15/23 03/15/23 03/15/23 Range/Units 20:04 21:02 22:47 WBC (3.8-10.6) k/uL Plt Count (150-450) k/uL Neutrophils # (1.3-7.7) k/uL Sodium (137-145) mmol/L Creatinine (0.52-1.04) mg/dL Glucose (74-99) mg/dL POC Glucose (mg/dL) 194 H 207 H 166 H (70-110) mg/dL Calcium (8.4-10.2) mg/dL Magnesium (1.6-2.3) mg/dL 03/15/23 03/16/23 03/16/23 Range/Units 23:00 00:07 01:13 WBC (3.8-10.6) k/uL Plt Count (150-450) k/uL Neutrophils # (1.3-7.7) k/uL Sodium (137-145) mmol/L Creatinine (0.52-1.04) mg/dL Glucose (74-99) mg/dL POC Glucose (mg/dL) 165 H 200 H 174 H (70-110) mg/dL Calcium (8.4-10.2) mg/dL Magnesium (1.6-2.3) mg/dL 03/16/23 03/16/23 03/16/23 Range/Units 02:14 03:05 04:13 WBC (3.8-10.6) k/uL Plt Count (150-450) k/uL Neutrophils # (1.3-7.7) k/uL Sodium (137-145) mmol/L Creatinine (0.52-1.04) mg/dL Glucose (74-99) mg/dL POC Glucose (mg/dL) 170 H 164 H 191 H (70-110) mg/dL Calcium (8.4-10.2) mg/dL Magnesium (1.6-2.3) mg/dL 03/16/23 03/16/23 03/16/23 Range/Units 04:28 04:28 05:04 WBC 11.2 H (3.8-10.6) k/uL Plt Count 105 L (150-450) k/uL Neutrophils # 8.4 H (1.3-7.7) k/uL Sodium 135 L (137-145) mmol/L Creatinine 0.49 L (0.52-1.04) mg/dL Glucose 178 H (74-99) mg/dL POC Glucose (mg/dL) 164 H (70-110) mg/dL Calcium 8.0 L (8.4-10.2) mg/dL Magnesium 1.4 L (1.6-2.3) mg/dL 03/16/23 Range/Units 06:40 WBC (3.8-10.6) k/uL Plt Count (150-450) k/uL Neutrophils # (1.3-7.7) k/uL Sodium (137-145) mmol/L Creatinine (0.52-1.04) mg/dL Glucose (74-99) mg/dL POC Glucose (mg/dL) 190 H (70-110) mg/dL Calcium (8.4-10.2) mg/dL Magnesium (1.6-2.3) mg/dL - Imaging and Cardiology Chest x-ray: image reviewed Assessment and Plan Assessment: Insulin dependent diabetes with poor glycemic control, hyperglycemia, A1c 9.8% Hypomagnesemia Left upper lobe mass positive for well-differentiated adenocarcinoma, status post left upper lobectomy Current tobacco dependence Moderate COPD, preoperative FEV1 54% of predicted, DLCO 36% of predicted Current daily EtOH use Hypertension Hyperlipidemia Stroke in 2016 with right-sided weakness Hepatitis B and C Bipolar depression History of IV heroin use with last use August 2018 Plan: Chest tube placed to water seal, monitor drainage Discontinue arterial line Discontinue Cameron catheter Hep lock IV Continue to improve blood glucose control, insulin adjustments made by primary service, continue to up titrate insulin Increase activity, ambulate as tolerated. Patient should be out of bed for all meals, she should be out of bed the majority of the day and use the bed for sleeping at nighttime only Wean oxygen as tolerated. Encourage incentive spirometry 10x every hour while awake. Bronchodilators per pulmonology Monitor for alcohol withdrawal, thiamine and folic acid ordered, magnesium replaced Nicotine patch in place Smoking cessation counseling and education reinforced Place transfer orders for 3 S. cardiac stepdown unit, may transfer when bed available Medical management of other comorbidities per internal medicine
--- NOTE | 2023-03-16 08:56 | XR ---
EXAMINATION TYPE: XR chest 1V DATE OF EXAM: 03/16/2023 COMPARISON: 03/15/2023 HISTORY: Post left upper lobe lobectomy TECHNIQUE: Single frontal view of the chest is obtained. FINDINGS: There is no focal air space opacity, pleural effusion, or pneumothorax seen. The cardiac s ilhouette size is enlarged. The osseous structures are intact. A left-sided chest tube and subcutaneo us air. There is left-sided consolidation and small effusion. Underlying COPD and chronic interstitia l lung disease. IMPRESSION: Left-sided consolidation and small effusion with no sizable pneumothorax. Chest tube in position.
[2023-03-16] MEDS: ATORVASTATIN 10 MG TAB PO SCH (10:03)
[2023-03-16] MEDS: THIAMINE 100 MG TAB PO SCH (10:03)
[2023-03-16] MEDS: LOSARTAN 50 MG TAB PO SCH (10:03)
[2023-03-16] MEDS: FOLIC ACID 1 MG TAB PO SCH (10:03)
[2023-03-16] MEDS: GABAPENTIN 400 MG CAP PO SCH ×3 (10:03→21:07)
[2023-03-16] MEDS: MAGNESIUM OXIDE 400 MG TAB PO SCH ×2 (10:04→21:07)
[2023-03-16] MEDS: NICOTINE 7MG/24HR PATCH TRANSDERM SCH (10:04)
[2023-03-16] MEDS: ENOXAPARIN 40 MG/0.4 ML SYRINGE SQ SCH (10:04)
[2023-03-16] MEDS: KETOROLAC 15 MG/ML 1 ML VIAL IVP SCH ×4 (10:13→23:32)
[2023-03-16 10:32] LABS: Glucose,Whole Blood 200 mg/dL (70-110)
--- NOTE | 2023-03-16 10:46 | P.PN ---
Subjective Progress Note Date: 03/16/23 Principal diagnosis: Lung cancer. Pulmonary consult dated 03/15/2023. This is a 57-year-old female who was admitted for possible left upper lobectomy, by Dr. June. Initially, the patient had a significant elevation in her blood, and the surgery was delayed. It was finally done today. He did call me after the procedure. In December of this year, my partner, did a flexible bronchoscopy, robotically-assisted bronchoscopy, and biopsies, the lesion, and the left upper lobe. The biopsies were positive for well-differentiated pulmonary adenocarcinoma. Currently, the patient's resting comfortably in the intensive care unit. The patient's on 4 L of oxygen, and getting saline at 50 mL an hour. Again as I mentioned above, I did speak to the surgeon about this patient. He was concerned that she may need bronchoscopy over the next few days, for left lung collapse. Apparently her airways were full of mucus. Currently labs data only includes a glucose of 260. Chest x-ray shows a left- sided consolidation and a small effusion, with no sizable pneumothorax. Chest tube is noted. Labs from yesterday include a white count of 5.9, hemoglobin 13.4, hematocrit 39.7, and a platelet count of 96,000. Sodium 137, potassium 4.3, chlorides 102, CO2 27, UN 15, and creatinine 0.7. N-terminal proBNP was 166. Progress note dated 03/16/2023. 57-year-old female postop day #1, status post robotically assisted thoracoscopic left upper lobectomy for lung cancer. The patient is seen today in room 257. She is on 2 L of oxygen. She's getting saline at 50 mL an hour. According to the nurses, the patient had an uneventful night. The patient's resting comfortably in bed. Again, she is on 2 L, by nasal cannula. White count 11.2, hemoglobin 13.4, and platelet count 105,000. Sodium 135, potassium 3.9, chlorides 99, CO2 28, BUN 14, creatinine 0.49. Magnesium 1.4. Chest x-rays shows some volume loss in the left lung, with some left-sided consolidation, and a small effusion. Objective - Vital Signs Vital signs: Vital Signs Temp 99.1 F 03/16/23 04:00 Pulse 81 03/16/23 08:57 Resp 16 03/16/23 08:57 BP 103/61 03/16/23 07:00 Pulse Ox 99 03/16/23 08:40 FiO2 21 03/12/23 07:51 Intake & Output 03/15/23 03/16/23 03/16/23 18:59 06:59 18:59 Intake Total 1900 550 50 Output Total 900 640 90 Balance 1000 -90 -40 Weight 84.4 kg Intake: IV 1400 Intake, IV Titration 400 550 50 Amount Sodium Chloride 0.9% 1, 550 50 000 ml @ 50 mls/hr IV . Q20H [facility] Rx#:[id number] Sodium Chloride 0.9% 1, 300 000 ml @ 999 mls/hr IV . Q1H1M [facility] Rx#:[id number] ceFAZolin 2 gm In Sodium 100 Chloride 0.9% 50 ml @ 100 mls/hr IVPB Q8HR [facility] Rx# :[id number] Oral 100 Output: Chest Tube Drainage 60 50 Chest Tube Left 60 50 Drainage 300 Left 300 Urine 550 580 40 Estimated Blood Loss 50 Other: Voiding Method Indwelling Catheter ABP, PAP, CO, CI - Last Documented Arterial Blood Pressure 119/49 - Exam No acute distress, oriented 3. Currently on 2 L of oxygen. HEENT examination is grossly unremarkable. Mucous membranes are moist. No oral lesions. Neck supple. Full range of motion. No adenopathy thyromegaly or neck vein distention. Cardiovascular examination reveals regular rhythm rate. S1-S2 normal. No S3 or S4. No discernible murmur noted. Heart rate 81 bpm. Lungs reveal diminished bilateral breath sounds, left greater than right. 2 L saturation is 99%. Scattered rhonchi noted primarily on the left side. A left- sided chest tube is noted. Abdomen soft bowel sounds are heard. No masses or tenderness. Extremities are intact. No cyanosis clubbing or edema. Skin is without rash or lesion. Neurologic examination is brief but nonfocal. - Labs CBC & Chem 7: 03/16/23 04:28 03/16/23 04:28 Labs: Abnormal Lab Results - Last 24 Hours (Table) 03/15/23 03/15/23 03/15/23 Range/Units 11:28 12:29 16:12 WBC (3.8-10.6) k/uL Plt Count (150-450) k/uL Neutrophils # (1.3-7.7) k/uL Sodium (137-145) mmol/L Creatinine (0.52-1.04) mg/dL Glucose (74-99) mg/dL POC Glucose (mg/dL) 233 H 260 H 288 H (70-110) mg/dL Calcium (8.4-10.2) mg/dL Magnesium (1.6-2.3) mg/dL 03/15/23 03/15/23 03/15/23 Range/Units 18:32 19:01 20:04 WBC (3.8-10.6) k/uL Plt Count (150-450) k/uL Neutrophils # (1.3-7.7) k/uL Sodium (137-145) mmol/L Creatinine (0.52-1.04) mg/dL Glucose (74-99) mg/dL POC Glucose (mg/dL) 206 H 211 H 194 H (70-110) mg/dL Calcium (8.4-10.2) mg/dL Magnesium (1.6-2.3) mg/dL 03/15/23 03/15/23 03/15/23 Range/Units 21:02 22:47 23:00 WBC (3.8-10.6) k/uL Plt Count (150-450) k/uL Neutrophils # (1.3-7.7) k/uL Sodium (137-145) mmol/L Creatinine (0.52-1.04) mg/dL Glucose (74-99) mg/dL POC Glucose (mg/dL) 207 H 166 H 165 H (70-110) mg/dL Calcium (8.4-10.2) mg/dL Magnesium (1.6-2.3) mg/dL 03/16/23 03/16/23 03/16/23 Range/Units 00:07 01:13 02:14 WBC (3.8-10.6) k/uL Plt Count (150-450) k/uL Neutrophils # (1.3-7.7) k/uL Sodium (137-145) mmol/L Creatinine (0.52-1.04) mg/dL Glucose (74-99) mg/dL POC Glucose (mg/dL) 200 H 174 H 170 H (70-110) mg/dL Calcium (8.4-10.2) mg/dL Magnesium (1.6-2.3) mg/dL 03/16/23 03/16/23 03/16/23 Range/Units 03:05 04:13 04:28 WBC 11.2 H (3.8-10.6) k/uL Plt Count 105 L (150-450) k/uL Neutrophils # 8.4 H (1.3-7.7) k/uL Sodium (137-145) mmol/L Creatinine (0.52-1.04) mg/dL Glucose (74-99) mg/dL POC Glucose (mg/dL) 164 H 191 H (70-110) mg/dL Calcium (8.4-10.2) mg/dL Magnesium (1.6-2.3) mg/dL 03/16/23 03/16/23 03/16/23 Range/Units 04:28 05:04 06:40 WBC (3.8-10.6) k/uL Plt Count (150-450) k/uL Neutrophils # (1.3-7.7) k/uL Sodium 135 L (137-145) mmol/L Creatinine 0.49 L (0.52-1.04) mg/dL Glucose 178 H (74-99) mg/dL POC Glucose (mg/dL) 164 H 190 H (70-110) mg/dL Calcium 8.0 L (8.4-10.2) mg/dL Magnesium 1.4 L (1.6-2.3) mg/dL 03/16/23 Range/Units 10:21 WBC (3.8-10.6) k/uL Plt Count (150-450) k/uL Neutrophils # (1.3-7.7) k/uL Sodium (137-145) mmol/L Creatinine (0.52-1.04) mg/dL Glucose (74-99) mg/dL POC Glucose (mg/dL) 200 H (70-110) mg/dL Calcium (8.4-10.2) mg/dL Magnesium (1.6-2.3) mg/dL Assessment and Plan Assessment: Postop day #1, status post robotically assisted thoracoscopic left upper lobectomy with mediastinal lymph node dissection. Intraoperative bronchoscopy, for airway secretion control. History of chronic obstructive pulmonary disease. History of CVA. History of diabetes mellitus. History of hypertension. History of hyperlipidemia. History of alcohol abuse and heroin abuse. History of hepatitis B and C. Plan: Plan dated 03/15/2023. Dr. June, was kind enough call me about this patient, and give me a heads up so to speak. The patient required intraoperative bronchoscopy, for airway secretion. He suggested that she may need follow-up bronchoscopy, throughout her hospitalization. The patient was seen in the intensive care unit, room 257. The patient has a left-sided chest tube. She continues on oxygen at 4 L. She's getting saline at 50 mL an hour. Labs, x-rays, and medications are reviewed. We spoke to the nurse about this patient. Additional recommendations and suggestions are forthcoming. Prognosis is guarded. Plan dated 03/16/2023. The patient is seen today in room 257. He's postop day #1. The patient's currently on 2 L. She's getting saline at 50 mL an hour. The patient received some narcotic the night, for pain. It did seem to settle her down. She has a left-sided chest tube. Labs, x-rays, medications are all reviewed. We will continue to follow the patient, make recommendations along the way. We do rec ommend hourly use of the incentive spirometer. The patient has been downgraded by cardiothoracic surgery Time with Patient: Less than 30
[2023-03-16] MEDS: NON FORMULARY DRUG (Dulaglutide [Trulicity] 1.5 MG/0.5 ML Each) SQ SCH (11:07)
[2023-03-16] MEDS ORDERED: AMIODARONE 360 MG in DEXTROSE 5% IN WATER 200 ML IV ONE ×2 (13:09)
[2023-03-16] MEDS ORDERED: DEXTROSE 5% IN WATER 100 ML with AMIODARONE 150 MG IV ONE (13:09)
[2023-03-16] MEDS: traMADol 50 MG TAB PO PRN ×2 (13:21→18:33)
[2023-03-16 16:31] LABS: Glucose,Whole Blood 206 mg/dL (70-110)
[2023-03-16] MEDS: AMIODARONE 450 MG in DEXTROSE 5% IN WATER 250 ML IV SCH ×2 (18:33)
[2023-03-16 21:01] LABS: Glucose,Whole Blood 294 mg/dL (70-110)
--- NOTE | 2023-03-16 22:07 | P.PN ---
Subjective Progress Note Date: 03/16/23 Patient is a 57-year-old female came in for elective pulmonary lobectomy for lung cancer found to have highly elevated blood sugars of 500 because of which patient was admitted patient last hemoglobin A1c was more than a year ago at that time it was 7.5 it appears patient may be noncompliant. Patient admits to drinking vodka with watermelon juice last night. Patient does have history of COPD continues to smoke 5 cigarettes per day is bit hypoxic. Chest x-ray showed some interstitial prominence although clinically patient doesn't appear to be in CHF patient does take 20 mg of Lasix at home patient has chronic venous stasis dermatosis of both legs and will be dermatitis. Patient is on Trulicity, 20 units of long-acting insulin along with metformin at home for diabetes with us. Patient blood sugars is presently about 300. Patient had a chest xray showing 1.2 cm let upper lobe pulmonary mass. She will be going for lung resection on Wednesday. 03/12/2023 Patient sitting up in bed today. Needs to be up in the chair for the day. Patient verbalized understanding. Blood glucose remains elevated. Levemir will be increased and scheduled insulin added. 03/13/2023 Patient evaluated [facility]. She is sitting up in the chair no acute complaints overnight. She is scheduled to undergo elective lobe resection on Wednesday. Blood glucose remains elevated at this time it has come down into the 190s however back up to 365. She is on a combination of sliding scale insulin as well as 3 units of scheduled and 25 units daily Levemir. These have been increased today. 03/14/2023 Patient is evaluated today, sitting up in chair. Patient to undergo elective lobe resection on wednesday with CT surgery. No acute complaints. Blood glucose remains elevated but overall improved, fluctuating between 188-312 this afternoon. 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 She will be monitored postoperati vely in the ICU. Blood glucose this AM down to 150 and 176. Still fluctuating in to the high 200s. Will continue with current regimen as patient will be NPO for surgery to avoid hypoglycemia. If she remains elevated insulin will be further increased. 03/16/2023 Patient is evaluated today in the ICU postoperative day #1 left upper lobectomy. Patient has left CT in place with chest xray today showing left-sided consolidation and small effusion with no sizable pneumothorax. Labs showing white count of 11.2, sodium level of 35. BUN 14, creatinine 0.49. Magnesium 1.4. Glucose has been slowly improving. Patient has been afebrile, heart rate 80s, blood pressure on the lower side 95/38. On 2L of oxygen. REVIEW OF SYSTEMS: CONSTITUTIONAL: No fever, no malaise, Reports fatigue. HEENT: No recent visual problems or hearing problems. Denied any sore throat. CARDIOVASCULAR: No chest pain, orthopnea, PND, no palpitations, no syncope. PULMONARY: Reports shortness of breath, no cough, no hemoptysis. GASTROINTESTINAL: No diarrhea, no nausea, no vomiting, no abdominal pain. NEUROLOGICAL: No headaches, no weakness, no numbness. PHYSICAL EXAMINATION: GENERAL: The patient is drowsy and oriented x3, not in any acute distress. Well developed, well nourished. HEENT: Pupils are round and equally reacting to light. EOMI. No scleral icterus. No conjunctival pallor. Normocephalic, atraumatic. No pharyngeal erythema. No thyromegaly. CARDIOVASCULAR: S1 and S2 present. No murmurs, rubs, or gallops. PULMONARY: Diminished. Scattered rhonchi throughout ABDOMEN: Soft, nontender, nondistended, normoactive bowel sounds. No palpable organomegaly. MUSCULOSKELETAL: No joint swelling or deformity. EXTREMITIES: No cyanosis, clubbing, or pedal edema. NEUROLOGICAL: Gross neurological examination did not reveal any focal deficits. SKIN: Bilateral chronic venous stasis and will be dermatitis no pitting edema at this time.. Assessment and plan Uncontrolled elevated blood sugars: Secondary to dietary noncompliance. Continue with accuchecks ACHS 2 am an continue with levemir, sliding scale and scheduled novolog. -Mild hypoxia probably secondary to emphysema patient is presently not in COPD exacerbation, mention of interstitial prominence, BNP was 166 patient is on room air. -COPD without any acute exacerbation -hyperlipidemia -Hypertension -hypervascular disease -continued nicotine use: Counseling was provided -Lung cancer was recently diagnosed with non small cell and is now status post upper lobectomy with cardiothoracic surgery following closely.. Patient monitored in the ICU postoperatively. -Hypokelemia has been supplemented and will repeat labs in the AM PT/OT consultation needs reinforcement to be up out of bed. Patient likely will need rehab on discharge. DVT prophylaxis: Lovenox Full Code The impression and plan of care has been dictated by Joana Diaz, Nurse Practitioner as directed. Dr. Gay MD I have performed a history and physical examination and medical decision making of this patient, discussed the same with the dictator, and agree with the dictators assessment and plan as written, documented as a scribe. Based on total visit time, I have performed more than 50% of this visit. Objective - Vital Signs Vital signs: Vital Signs Temp 98.4 F 03/16/23 20:00 Pulse 75 03/16/23 21:00 Resp 22 03/16/23 21:00 BP 97/50 03/16/23 21:00 Pulse Ox 96 03/16/23 21:00 FiO2 21 03/12/23 07:51 Intake & Output 03/16/23 03/16/23 03/17/23 06:59 18:59 06:59 Intake Total 550 1590 274 Output Total 640 830 Balance -90 760 274 Weight 84.4 kg Intake: Intake, IV Titration 550 965 249 Amount Amiodarone 450 mg In 165 99 Dextrose 5% in Water 250 ml @ 0.5 MG/MIN 16.667 mls/hr IV .Q15H [facility] Rx#: [id number] Dextrose 5% in Water 100 200 ml @ 618 mls/hr IV .Q10M ONE with Amiodarone 150 mg Rx#:[id number] Sodium Chloride 0.9% 1, 550 600 150 000 ml @ 50 mls/hr IV . Q20H [facility] Rx#:[id number] Oral 625 25 Output: Chest Tube Drainage 60 250 Chest Tube Left 60 250 Urine 580 580 Other: Voiding Method Indwelling Catheter Indwelling Catheter ABP, PAP, CO, CI - Last Documented Arterial Blood Pressure 99/38 - Labs CBC & Chem 7: 03/16/23 04:28 03/16/23 04:28 Labs: Abnormal Lab Results - Last 24 Hours (Table) 03/15/23 03/15/23 03/16/23 Range/Units 22:47 23:00 00:07 WBC (3.8-10.6) k/uL Plt Count (150-450) k/uL Neutrophils # (1.3-7.7) k/uL Sodium (137-145) mmol/L Creatinine (0.52-1.04) mg/dL Glucose (74-99) mg/dL POC Glucose (mg/dL) 166 H 165 H 200 H (70-110) mg/dL Calcium (8.4-10.2) mg/dL Magnesium (1.6-2.3) mg/dL 03/16/23 03/16/23 03/16/23 Range/Units 01:13 02:14 03:05 WBC (3.8-10.6) k/uL Plt Count (150-450) k/uL Neutrophils # (1.3-7.7) k/uL Sodium (137-145) mmol/L Creatinine (0.52-1.04) mg/dL Glucose (74-99) mg/dL POC Glucose (mg/dL) 174 H 170 H 164 H (70-110) mg/dL Calcium (8.4-10.2) mg/dL Magnesium (1.6-2.3) mg/dL 03/16/23 03/16/23 03/16/23 Range/Units 04:13 04:28 04:28 WBC 11.2 H (3.8-10.6) k/uL Plt Count 105 L (150-450) k/uL Neutrophils # 8.4 H (1.3-7.7) k/uL Sodium 135 L (137-145) mmol/L Creatinine 0.49 L (0.52-1.04) mg/dL Glucose 178 H (74-99) mg/dL POC Glucose (mg/dL) 191 H (70-110) mg/dL Calcium 8.0 L (8.4-10.2) mg/dL Magnesium 1.4 L (1.6-2.3) mg/dL 03/16/23 03/16/23 03/16/23 Range/Units 05:04 06:40 10:21 WBC (3.8-10.6) k/uL Plt Count (150-450) k/uL Neutrophils # (1.3-7.7) k/uL Sodium (137-145) mmol/L Creatinine (0.52-1.04) mg/dL Glucose (74-99) mg/dL POC Glucose (mg/dL) 164 H 190 H 200 H (70-110) mg/dL Calcium (8.4-10.2) mg/dL Magnesium (1.6-2.3) mg/dL 03/16/23 03/16/23 Range/Units 16:29 21:00 WBC (3.8-10.6) k/uL Plt Count (150-450) k/uL Neutrophils # (1.3-7.7) k/uL Sodium (137-145) mmol/L Creatinine (0.52-1.04) mg/dL Glucose (74-99) mg/dL POC Glucose (mg/dL) 206 H 294 H (70-110) mg/dL Calcium (8.4-10.2) mg/dL Magnesium (1.6-2.3) mg/dL Assessment and Plan Time with Patient: Less than 30
[2023-03-17 02:04] LABS: Glucose,Whole Blood 198 mg/dL (70-110)
[2023-03-17] MEDS: INSULIN ASPART (NovoLOG) 100 UNIT/ML VIAL SQ SCH ×8 (02:24→23:46)
[2023-03-17] MEDS: KETOROLAC 15 MG/ML 1 ML VIAL IVP SCH ×4 (05:30→23:52)
[2023-03-17 06:05] LABS: Glucose,Whole Blood 206 mg/dL (70-110)
[2023-03-17] MEDS: AMIODARONE 450 MG in DEXTROSE 5% IN WATER 250 ML IV SCH ×2 (06:53)
[2023-03-17] MEDS: PANTOPRAZOLE 40 MG TABLET PO SCH (06:54)
[2023-03-17 07:09] LABS: HGB 13.1 gm/dL (11.4-16.0); MCHC 32.9 g/dL (31.0-37.0); MCV 97.2 fL (80.0-100.0); Mean Platelet Volume 8.8; Platelet Count 108 k/uL (150-450); RBC 4.11 m/uL (3.80-5.40); RDW 12.9 % (11.5-15.5); WBC 10.7 k/uL (3.8-10.6)
[2023-03-17] MEDS: ATORVASTATIN 10 MG TAB PO SCH (07:53)
[2023-03-17] MEDS: THIAMINE 100 MG TAB PO SCH (07:53)
[2023-03-17] MEDS: MAGNESIUM OXIDE 400 MG TAB PO SCH ×2 (07:53→23:46)
[2023-03-17] MEDS: GABAPENTIN 400 MG CAP PO SCH ×3 (07:53→22:02)
[2023-03-17] MEDS: FOLIC ACID 1 MG TAB PO SCH (07:53)
[2023-03-17] MEDS: traMADol 50 MG TAB PO PRN (07:54)
[2023-03-17 07:55] LABS: African American GFR (CKD) >90 (>60 ml/min/1.73 sqM); Anion Gap 8 mmol/L; Blood Urea Nitrogen 31 mg/dL (7-17); Calcium 8.2 mg/dL (8.4-10.2); Carbon Dioxide 25 mmol/L (22-30); Chloride 94 mmol/L (98-107); Glucose 190 mg/dL (74-99); Magnesium 2.2 mg/dL (1.6-2.3); Non-African American GFR(CKD) >90 (>60 ml/min/1.73 sqM); Potassium 4.2 mmol/L (3.5-5.1); Sodium 127 mmol/L (137-145)
[2023-03-17] MEDS: ENOXAPARIN 40 MG/0.4 ML SYRINGE SQ SCH (07:55)
[2023-03-17] MEDS: INSULIN DETEMIR (LEVEMIR) 100 UNIT/ML SYR SQ SCH (07:55)
[2023-03-17] MEDS: NICOTINE 7MG/24HR PATCH TRANSDERM SCH (07:57)
[2023-03-17] MEDS ORDERED: DEXTROSE 5% IN WATER 100 ML with AMIODARONE 150 MG IV ONE (08:00)
--- NOTE | 2023-03-17 08:36 | XR ---
EXAMINATION TYPE: XR chest 1V portable DATE OF EXAM: 03/17/2023 COMPARISON: 03/16/2023 HISTORY: Postop TECHNIQUE: Single frontal view of the chest is obtained. FINDINGS: There is no focal air space opacity, pleural effusion, or pneumothorax seen. The cardiac s ilhouette size is enlarged. The osseous structures are intact. A left-sided chest tube and subcutaneo us air. There is left-sided consolidation and small effusion. Underlying COPD and chronic interstitia l lung disease. IMPRESSION: Postoperative changes with stable left-sided consolidation and small pleural effusion. N o sizable pneumothorax.
[2023-03-17] MEDS ORDERED: HYDROcodone/APAP 5-325MG 1 EACH TAB PO PRN (09:20)
[2023-03-17] MEDS ORDERED: traMADol 50 MG TAB PO STA (09:21)
[2023-03-17] MEDS: LOSARTAN 50 MG TAB PO SCH (09:32)
[2023-03-17] MEDS: AMIODARONE 200 MG TAB PO SCH ×2 (09:33→21:31)
[2023-03-17] MEDS: SYMBICORT 80-4.5 MCG INHALER INHALATION SCH ×2 (09:44→21:29)
[2023-03-17] MEDS ORDERED: traMADol 50 MG TAB PO PRN (09:44)
[2023-03-17] MEDS: IPRATROPIUM-ALBUTEROL 3 ML NEB IH SCH ×4 (09:44→21:29)
[2023-03-17] MEDS: METOPROLOL TARTRATE 25 MG TAB PO SCH ×2 (09:55→21:32)
[2023-03-17] MEDS: SODIUM CHLORIDE TAB 1 GM TAB PO SCH ×2 (09:59→23:46)
--- NOTE | 2023-03-17 10:32 | P.PN ---
Subjective Progress Note Date: 03/17/23 Principal diagnosis: Insulin dependent diabetes with poor glycemic control, hyperglycemia, hypomagnesemia, left upper lobe mass positive for well-differentiated adenocarcinoma. History of current tobacco dependence, COPD, daily EtOH use, hypertension, hyperlipidemia, stroke in 2016 with right-sided weakness, hepatitis B and C, bipolar depression, IV heroin use with last use August 2018 POD#2 Robotic assisted thoracoscopic left upper lobectomy with mediastinal lymph node dissection, fiberoptic bronchoscopy for evacuation of inspissated sputum Paroxysmal atrial fibrillation, known potential complication of lung surgery, currently sinus The patient was seen and examined this morning sitting up in a recliner on the cardiac stepdown unit, she does complain of post surgical pain. Remains in sinus rhythm and hemodynamically stable, did have atrial fibrillation briefly yesterday and early this morning, treated with amiodarone, will start beta ana maría. Left pleural chest tube to water seal, no air leak present, 300 mL drainage in the last 24 hours. CXR, labs reviewed. No other new concerns. Objective - Vital Signs Vital signs: Vital Signs Temp 98.1 F 03/17/23 07:47 Pulse 64 03/17/23 09:54 Resp 18 03/17/23 09:54 BP 104/55 03/17/23 09:54 Pulse Ox 87 L 03/17/23 09:48 FiO2 21 03/12/23 07:51 Intake & Output 03/16/23 03/17/23 03/17/23 18:59 06:59 18:59 Intake Total 1590 479.56 110 Output Total 830 100 Balance 760 379.56 110 Weight 83.1 kg Intake: Intake, IV Titration 965 454.56 Amount Amiodarone 450 mg In 165 304.56 Dextrose 5% in Water 250 ml @ 0.5 MG/MIN 16.667 mls/hr IV .Q15H [facility] Rx#: [id number] Dextrose 5% in Water 100 200 ml @ 618 mls/hr IV .Q10M [facility] with Amiodarone 150 mg Rx#:[id number] Sodium Chloride 0.9% 1, 600 150 000 ml @ 50 mls/hr IV . Q20H [facility] Rx#:[id number] Oral 625 25 110 Output: Chest Tube Drainage 250 Chest Tube Left 250 Urine 580 100 Other: Voiding Method Indwelling Catheter ABP, PAP, CO, CI - Last Documented Arterial Blood Pressure 99/38 - Exam CONSTITUTIONAL: Appears comfortable, cooperative, does complain of surgical pain which is to be expected RESPIRATORY: Lungs sounds diminished bilaterally. Respirations even, nonlabored. Currently on 2 LPM NC with oxygen saturation 95%. Able to achieve 1000 mL on incentive spirometry. Strong cough. CARDIOVASCULAR: S1, S2 present. Regular rate and rhythm, sinus rhythm on telemetry. Palpable peripheral pulses bilaterally. No edema present. No calf pain or tenderness noted. SCDs present. GASTROINTESTINAL: Abdomen soft, nontender, nondistended. Active bowel sounds present 4 quadrants. Tolerating diet. Positive flatus, last documented bowel movement 03/15 prior to surgery GENITOURINARY: Cameron discontinued, patient continues to void INTEGUMENTARY: Skin is warm and dry NEUROLOGIC: Cranial nerves II through XII intact MUSKULOSKELETAL: Able to move all extremities, strength equal bilaterally PSYCHIATRIC: Alert and oriented to person place and time, flat affect INVASIVE LINES AND TUBES: Left pleural chest tube present to water seal, no air leaks present, 300 mL serosanguineous drainage in the last 24 hours - Allied health notes Allied health notes reviewed: nursing - Labs CBC & Chem 7: 03/17/23 06:41 03/17/23 06:41 Labs: Abnormal Lab Results - Last 24 Hours (Table) 03/16/23 03/16/23 03/16/23 Range/Units 10:21 16:29 21:00 WBC (3.8-10.6) k/uL Plt Count (150-450) k/uL Sodium (137-145) mmol/L Chloride (98-107) mmol/L BUN (7-17) mg/dL Glucose (74-99) mg/dL POC Glucose (mg/dL) 200 H 206 H 294 H (70-110) mg/dL Calcium (8.4-10.2) mg/dL 03/17/23 03/17/23 03/17/23 Range/Units 02:03 06:00 06:41 WBC (3.8-10.6) k/uL Plt Count (150-450) k/uL Sodium 127 L (137-145) mmol/L Chloride 94 L (98-107) mmol/L BUN 31 H (7-17) mg/dL Glucose 190 H (74-99) mg/dL POC Glucose (mg/dL) 198 H 206 H (70-110) mg/dL Calcium 8.2 L (8.4-10.2) mg/dL 03/17/23 Range/Units 06:41 WBC 10.7 H (3.8-10.6) k/uL Plt Count 108 L (150-450) k/uL Sodium (137-145) mmol/L Chloride (98-107) mmol/L BUN (7-17) mg/dL Glucose (74-99) mg/dL POC Glucose (mg/dL) (70-110) mg/dL Calcium (8.4-10.2) mg/dL - Imaging and Cardiology Chest x-ray: report reviewed, image reviewed Assessment and Plan Assessment: Insulin dependent diabetes with poor glycemic control, hyperglycemia, A1c 9.8% Hypomagnesemia Left upper lobe mass positive for well-differentiated adenocarcinoma, status post left upper lobectomy Current tobacco dependence Moderate COPD, preoperative FEV1 54% of predicted, DLCO 36% of predicted Current daily EtOH use Hypertension Hyperlipidemia Stroke in 2015 with right-sided weakness Hepatitis B and C Bipolar depression History of IV heroin use with last use August 2018 Paroxysmal atrial fibrillation Plan: Chest tube discontinued without incident Continue to improve blood glucose control, insulin adjustments made by primary service, continue to up titrate insulin Increase activity, ambulate as tolerated. Patient should be out of bed for all meals, she should be out of bed the majority of the day and use the bed for sleeping at nighttime only Wean oxygen as tolerated. Encourage incentive spirometry 10x every hour while awake. Bronchodilators per pulmonology Monitor for alcohol withdrawal, thiamine and folic acid ordered, magnesium replaced Nicotine patch in place Smoking cessation counseling and education reinforced Wean narcotics Transition to oral amiodarone, low dose beta ana maría, no anticoagulation due to recent surgery Repeat CXR in Am, if stable patient should be discharged to home to follow up with Dr. June in 1 week Medical management of other comorbidities per internal medicine
--- NOTE | 2023-03-17 11:08 | P.PN ---
Subjective Progress Note Date: 03/17/23 Principal diagnosis: Lung cancer. Pulmonary consult dated 03/15/2023. This is a 57-year-old female who was admitted for possible left upper lobectomy, by Dr. June. Initially, the patient had a significant elevation in her blood, and the surgery was delayed. It was finally done today. He did call me after the procedure. In December of this year, my partner, did a flexible bronchoscopy, robotically-assisted bronchoscopy, and biopsies, the lesion, and the left upper lobe. The biopsies were positive for well-differentiated pulmonary adenocarcinoma. Currently, the patient's resting comfortably in the intensive care unit. The patient's on 4 L of oxygen, and getting saline at 50 mL an hour. Again as I mentioned above, I did speak to the surgeon about this patient. He was concerned that she may need bronchoscopy over the next few days, for left lung collapse. Apparently her airways were full of mucus. Currently labs data only includes a glucose of 260. Chest x-ray shows a left- sided consolidation and a small effusion, with no sizable pneumothorax. Chest tube is noted. Labs from yesterday include a white count of 5.9, hemoglobin 13.4, hematocrit 39.7, and a platelet count of 96,000. Sodium 137, potassium 4.3, chlorides 102, CO2 27, UN 15, and creatinine 0.7. N-terminal proBNP was 166. Progress note dated 03/16/2023. 57-year-old female postop day #1, status post robotically assisted thoracoscopic left upper lobectomy for lung cancer. The patient is seen today in room 257. She is on 2 L of oxygen. She's getting saline at 50 mL an hour. According to the nurses, the patient had an uneventful night. The patient's resting comfortably in bed. Again, she is on 2 L, by nasal cannula. White count 11.2, hemoglobin 13.4, and platelet count 105,000. Sodium 135, potassium 3.9, chlorides 99, CO2 28, BUN 14, creatinine 0.49. Magnesium 1.4. Chest x-rays shows some volume loss in the left lung, with some left-sided consolidation, and a small effusion. Progress note dated 03/17/2023. 57-year-old female, postop day #2, status post robotically assisted thoracoscopic left upper lobectomy for lung cancer. The patient is seen today in room 362. She's currently on room air, but saturations are only 87%. I asked respiratory therapy to place her on oxygen at 2 L. The left-sided chest tube had been removed. She's getting saline at 10 mL an hour. White count is 10.7, hemoglobin 13.1, hematocrit 40, and platelet count 108,000. Sodium 127, potassium 4.2, chlorides 94, CO2 25, BUN 31, and creatinine 0.71. Calcium is 8.2. Magnesium is 2.2. Chest x-ray from today shows postoperative changes, with stable left-sided consolidation and small pleural effusion. No pneumothorax is seen. Objective - Vital Signs Vital signs: Vital Signs Temp 98.1 F 03/17/23 07:47 Pulse 64 03/17/23 09:54 Resp 18 03/17/23 09:54 BP 104/55 03/17/23 09:54 Pulse Ox 87 L 03/17/23 09:48 FiO2 21 03/12/23 07:51 Intake & Output 03/16/23 03/17/23 03/17/23 18:59 06:59 18:59 Intake Total 1590 479.56 110 Output Total 830 100 Balance 760 379.56 110 Weight 83.1 kg Intake: Intake, IV Titration 965 454.56 Amount Amiodarone 450 mg In 165 304.56 Dextrose 5% in Water 250 ml @ 0.5 MG/MIN 16.667 mls/hr IV .Q15H [facility] Rx#: [id number] Dextrose 5% in Water 100 200 ml @ 618 mls/hr IV .Q10M ONE with Amiodarone 150 mg Rx#:[id number] Sodium Chloride 0.9% 1, 600 150 000 ml @ 50 mls/hr IV . Q20H [facility] Rx#:[id number] Oral 625 25 110 Output: Chest Tube Drainage 250 Chest Tube Left 250 Urine 580 100 Other: Voiding Method Indwelling Catheter # Voids 1 ABP, PAP, CO, CI - Last Documented Arterial Blood Pressure 99/38 - Exam No acute distress, oriented 3. Currently on room air, with saturations of only 87%. HEENT examination is grossly unremarkable. Mucous membranes are moist. No oral lesions. Neck supple. Full range of motion. No adenopathy thyromegaly or neck vein distention. Cardiovascular examination reveals regular rhythm rate. S1-S2 normal. No S3 or S4. No discernible murmur noted. Heart rate 100 bpm. Lungs reveal diminished bilateral breath sounds, left greater than right. Room air saturation is 87%. I've asked respiratory to apply 2 L by nasal cannula. A left-sided chest tube has been removed. Abdomen soft bowel sounds are heard. No masses or tenderness. Extremities are intact. No cyanosis clubbing or edema. Skin is without rash or lesion. Neurologic examination is brief but nonfocal. - Labs CBC & Chem 7: 03/17/23 06:41 03/17/23 06:41 Labs: Abnormal Lab Results - Last 24 Hours (Table) 03/16/23 03/16/23 03/17/23 Range/Units 16:29 21:00 02:03 WBC (3.8-10.6) k/uL Plt Count (150-450) k/uL Sodium (137-145) mmol/L Chloride (98-107) mmol/L BUN (7-17) mg/dL Glucose (74-99) mg/dL POC Glucose (mg/dL) 206 H 294 H 198 H (70-110) mg/dL Calcium (8.4-10.2) mg/dL 03/17/23 03/17/23 03/17/23 Range/Units 06:00 06:41 06:41 WBC 10.7 H (3.8-10.6) k/uL Plt Count 108 L (150-450) k/uL Sodium 127 L (137-145) mmol/L Chloride 94 L (98-107) mmol/L BUN 31 H (7-17) mg/dL Glucose 190 H (74-99) mg/dL POC Glucose (mg/dL) 206 H (70-110) mg/dL Calcium 8.2 L (8.4-10.2) mg/dL Assessment and Plan Assessment: Postop day #2, status post robotically assisted thoracoscopic left upper lobe ctomy with mediastinal lymph node dissection, for early stage NSCLC. Intraoperative bronchoscopy, for airway secretion control. History of chronic obstructive pulmonary disease. History of CVA. History of diabetes mellitus. History of hypertension. History of hyperlipidemia. History of alcohol abuse and heroin abuse. History of hepatitis B and C. Plan: Plan dated 03/15/2023. Dr. June, was kind enough call me about this patient, and give me a heads up so to speak. The patient required intraoperative bronchoscopy, for airway secretion. He suggested that she may need follow-up bronchoscopy, throughout her hospitalization. The patient was seen in the intensive care unit, room 257. The patient has a left-sided chest tube. She continues on oxygen at 4 L. She's getting saline at 50 mL an hour. Labs, x-rays, and medications are reviewed. We spoke to the nurse about this patient. Additional recommendations and suggestions are forthcoming. Prognosis is guarded. Plan dated 03/16/2023. The patient is seen today in room 257. He's postop day #1. The patient's currently on 2 L. She's getting saline at 50 mL an hour. The patient received some narcotic the night, for pain. It did seem to settle her down. She has a left-sided chest tube. Labs, x-rays, medications are all reviewed. We will continue to follow the patient, make recommendations along the way. We do recommend hourly use of the incentive spirometer. The patient has been downgraded by cardiothoracic surgery Plan dated 03/17/2023. The patient is seen today in room 362. She's on room air, but saturations are only 87%. I've asked respiratory to apply oxygen by nasal cannula, at 2 L. The patient currently is on saline at 10 mL an hour. Her chest x-ray stable. Labs, x-rays, and medications are reviewed. We will encourage the patient continue to deep breathe, cough, and clear secretions, and use the incentive spirometer, every hour while awake. The patient is stable, but prognosis is guarded. Time with Patient: Less than 30
[2023-03-17 11:31] LABS: Glucose,Whole Blood 233 mg/dL (70-110)
[2023-03-17 16:21] LABS: Glucose,Whole Blood 240 mg/dL (70-110)
--- NOTE | 2023-03-17 18:34 | P.PN ---
Subjective Patient is a 57-year-old female came in for elective pulmonary lobectomy for lung cancer found to have highly elevated blood sugars of 500 because of which patient was admitted patient last hemoglobin A1c was more than a year ago at that time it was 7.5 it appears patient may be noncompliant. Patient admits to drinking vodka with watermelon juice last night. Patient does have history of COPD continues to smoke 5 cigarettes per day is bit hypoxic. Chest x-ray showed some interstitial prominence although clinically patient doesn't appear to be in CHF patient does take 20 mg of Lasix at home patient has chronic venous stasis dermatosis of both legs and will be dermatitis. Patient is on Trulicity, 20 units of long-acting insulin along with metformin at home for diabetes with us. Patient blood sugars is presently about 300. Patient had a chest xray showing 1.2 cm let upper lobe pulmonary mass. She will be going for lung resection on . 03/12/2023 Patient sitting up in bed today. Needs to be up in the chair for the day. Patien t verbalized understanding. Blood glucose remains elevated. Levemir will be increased and scheduled insulin added. 03/13/2023 Patient evaluated [facility]. She is sitting up in the chair no acute complaints overnight. She is scheduled to undergo elective lobe resection on Wednesday. Blood glucose remains elevated at this time it has come down into the 190s however back up to 365. She is on a combination of sliding scale insulin as well as 3 units of scheduled and 25 units daily Levemir. These have been increased today. 03/14/2023 Patient is evaluated today, sitting up in chair. Patient to undergo elective lobe resection on wednesday with CT surgery. No acute complaints. Blood glucose remains elevated but overall improved, fluctuating between 188-312 this afternoon. 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 She will be monitored postoperatively in the ICU. Blood glucose this AM down to 150 and 176. Still fluctuating in to the high 200s. Will continue with current regimen as patient will be NPO for surgery to avoid hypoglycemia. If she remains elevated insulin will be further increased. 03/16/2023 Patient is evaluated today in the ICU postoperative day #1 left upper lobectomy. Patient has left CT in place with chest xray today showing left-sided consolidation and small effusion with no sizable pneumothorax. Labs showing white count of 11.2, sodium level of 35. BUN 14, creatinine 0.49. Magnesium 1.4. Glucose has been slowly improving. Patient has been afebrile, heart rate 80s, blood pressure on the lower side 95/38. On 2L of oxygen. 03/17/2023 Patient presents with non-small lung cancer of the left upper lobe status post robotic assisted thoracoscopic left upper lobectomy on 03/15. Today postop day #2. Patient was transferred out of the ICU to the select unit today morning. Patient was lying in bed looks tired. Left chest tube in place but later on her chest tube was removed. Chest x-ray showing no sizable pneumothorax but persistent postop changes with a stable left lower lobe consolidation. Patient blood pressure on the low normal side about 88/51, no dizziness. Currently she is on 2 L oxygen via nasal cannula. She had a fever on 03/14 but no more fevers since then. She has mild leukocytosis coming down to 11.2 down to 10.7. Liver enzymes mildly elevated. Sodium 127 Glucose more than 200, she is on Lantus 15 units at home and she was taken here as of yesterday Levemir 25 units daily and 8 units at bedtime, we change and fat to Levemir 30 units daily starting tomorrow. Also she is on insulin sliding scale. We going to increase her NovoLog 5 units with meals up to 9 units and change her Levemir to 30 units daily with close monitoring of her glucose. Her amiodarone drip was stopped and switched to oral amiodarone. Review of systems CONSTITUTIONAL: No fever, no malaise, no fatigue. HEENT: No recent visual problems or hearing problems. Denied any sore throat. CARDIOVASCULAR: No orthopnea, PND, no palpitations, no syncope. PULMONARY: No chest wall tenderness GastrointestiL: No diarrhea, no nausea, no vomiting, no abdominal pain. Normoactive bowel sounds. NEUROLOGICAL: No headaches, no weakness, no numbness. Active Medications Generic Name Dose Route Start Last Admin Trade Name Freq PRN Reason Stop Dose Admin Acetaminophen 650 mg 03/15/23 13:06 03/16/23 05:52 Acetaminophen Tab 325 Mg Tab PO 650 mg Q4HR PRN Administration Mild to Moderate Pain (1 - 6) Albuterol/Ipratropium 3 ml 03/15/23 13:06 Ipratropium-Albuterol 3 Ml Neb IH RT-Q1H PRN Shortness Of Breath Or Wheezing Albuterol/Ipratropium 3 ml 03/15/23 13:06 03/17/23 17:09 Ipratropium-Albuterol 3 Ml Neb IH Not Given RT-QID [facility] Amiodarone HCl 400 mg 03/17/23 09:00 03/17/23 09:33 Amiodarone 200 Mg Tab PO 400 mg BID BLAIRE Administration Atorvastatin Calcium 10 mg 03/12/23 09:00 03/17/23 07:53 Atorvastatin 10 Mg Tab PO 10 mg DAILY B[facility] Administration Bisacodyl 10 mg 03/15/23 13:06 Bisacodyl 10 Mg Supp RECTAL DAILY PRN Constipation Budesonide/Formoterol Fumarate 2 puff 03/12/23 08:00 03/17/23 09:44 Symbicort 80-4.5 Mcg Inhaler INHALATION 2 puff RT-BID [facility] Administration Dextrose/Water 25 ml 03/11/23 10:55 Dextrose 50% Syringe 50 Ml IVP PER PROTOCOL PRN Hypoglycemia Protocol Dextrose/Water 50 ml 03/11/23 10:55 Dextrose 50% Syringe 50 Ml IVP PER PROTOCOL PRN Hypoglycemia Protocol Enoxaparin Sodium 40 mg 03/12/23 09:00 03/17/23 07:55 Enoxaparin 40 Mg/0.4 Ml Syringe SQ 40 mg DAILY [facility] Administration Folic Acid 1 mg 03/11/23 15:30 03/17/23 07:53 Folic Acid 1 Mg Tab PO 1 mg DAILY [facility] Administration Gabapentin 800 mg 03/11/23 16:00 03/17/23 15:23 Gabapentin 400 Mg Cap PO 800 mg TID BLA[facility] Administration Insulin Aspart 0 unit 03/13/23 13:00 03/17/23 17:08 Insulin Aspart (Novolog) 100 Unit/Ml Vial SQ 4 unit [id number] [facility] Administration Protocol Insulin Aspart 9 unit 03/18/23 07:30 Insulin Aspart (Novolog) 100 Unit/Ml Vial SQ AC-TID [facility] Insulin Detemir 30 unit 03/18/23 07:00 Insulin Detemir (Levemir) 100 Unit/Ml Syr SQ DAILY@0700 [facility] Ketorolac Tromethamine 15 mg 03/16/23 08:30 03/17/23 17:09 Ketorolac 15 Mg/Ml 1 Ml Vial IVP 03/21/23 08:28 15 mg Q6HR [facility] Administration Lorazepam 0.5 mg 03/13/23 13:38 03/15/23 22:31 Lorazepam 0.5 Mg Tab PO 0.5 mg Q4HR PRN Administration Ciwa 4 To 5 Lorazepam 1 mg 03/13/23 13:38 03/14/23 20:37 Lorazepam 1 Mg Tab PO 1 mg Q4HR PRN Administration Ciwa 6 To 7 Lorazepam 2 mg 03/13/23 13:38 Lorazepam 1 Mg Tab PO Q2HR PRN Ciwa 10 or greater Lorazepam 2 mg 03/13/23 13:38 Lorazepam 1 Mg Tab PO Q3HR PRN Ciwa 8 To 9 Lorazepam 1 mg 03/13/23 13:38 Lorazepam 1 Mg Tab PO Q1HR PRN Alcohol Withdrawal Losartan Potassium 50 mg 03/12/23 09:00 03/17/23 09:32 Losartan 50 Mg Tab PO Not Given DAILY [facility] Magnesium Oxide 400 mg 03/16/23 09:00 03/17/23 07:53 Magnesium Oxide 400 Mg Tab PO 400 mg BID B[facility] Administration Metoprolol Tartrate 25 mg 03/17/23 09:00 03/17/23 09:55 Metoprolol Tartrate 25 Mg Tab PO 25 mg BID B[facility] Administration Naloxone HCl 0.2 mg 03/11/23 10:55 Naloxone 0.4 Mg/Ml 1 Ml Vial IV Q2M PRN Opioid Reversal Nicotine 1 patch 03/12/23 09:00 03/17/23 07:57 Nicotine 7mg/24hr Patch TRANSDERM 1 patch DAILY [facility] Administration Non-Formulary Medication 1.5 mg 03/16/23 09:00 03/16/23 11:07 Dulaglutide [Trulicity] SQ Not Given TU [facility] Ondansetron HCl 4 mg 03/15/23 13:06 Ondansetron 4 Mg/2 Ml Vial IVP Q8HR PRN Nausea And Vomiting Pantoprazole Sodium 40 mg 03/16/23 07:30 03/17/23 06:54 Pantoprazole 40 Mg Tablet PO 40 mg [id number] BLA[facility] Administration Sodium Chloride 10 ml 03/16/23 09:00 03/17/23 07:56 Sodium Chloride 0.9% Flush 10 Ml Syringe IV 10 ml BID B[facility]IRE Administration Sodium Chloride 1 gm 03/17/23 09:00 03/17/23 09:59 Sodium Chloride Tab 1 Gm Tab PO 1 gm BID B[facility] Administration Thiamine HCl 100 mg 03/11/23 15:30 03/17/23 07:53 Thiamine 100 Mg Tab PO 100 mg DAILY BLAIRE Administration Tramadol HCl 50 mg 03/17/23 09:44 Tramadol 50 Mg Tab PO Q8HR PRN Severe Breakthrough Pain Objective - Vital Signs Vital signs: Vital Signs Temp 98.1 F 03/17/23 07:47 Pulse 67 03/17/23 11:31 Resp 16 03/17/23 11:31 BP 94/52 03/17/23 11:31 Pulse Ox 87 L 03/17/23 09:48 FiO2 21 03/12/23 07:51 Intake & Output 03/16/23 03/17/23 03/17/23 18:59 06:59 18:59 Intake Total 1590 479.56 110 Output Total 830 100 Balance 760 379.56 110 Weight 83.1 kg Intake: Intake, IV Titration 965 454.56 Amount Amiodarone 450 mg In 165 304.56 Dextrose 5% in Water 250 ml @ 0.5 MG/MIN 16.667 mls/hr IV .Q15H [facility] Rx#: [id number] Dextrose 5% in Water 100 200 ml @ 618 mls/hr IV .Q10M ONE with Amiodarone 150 mg Rx#:[id number] Sodium Chloride 0.9% 1, 600 150 000 ml @ 50 mls/hr IV . Q20H [facility] Rx#:[id number] Oral 625 25 110 Output: Chest Tube Drainage 250 Chest Tube Left 250 Urine 580 100 Other: Voiding Method Indwelling Catheter # Voids 1 ABP, PAP, CO, CI - Last Documented Arterial Blood Pressure 99/38 - Exam GENERAL: The patient is alert and oriented x3, not in any acute distress. Well developed, well nourished. HEENT: Pupils are round and equally reacting to light. EOMI. No scleral icterus. No conjunctival pallor. Normocephalic, atraumatic. No pharyngeal erythema. No thyromegaly. CARDIOVASCULAR: S1 and S2 present. No murmurs, rubs, or gallops. -PULMONARY: Chest is clear to auscultation, no wheezing , no crackles. chest tube in place ABDOMEN: Soft, nontender, nondistended, normoactive bowel sounds. No palpable organomegaly. MUSCULOSKELETAL: No joint swelling or deformity. EXTREMITIES: No cyanosis, clubbing, or pedal edema. NEUROLOGICAL: Gross neurological examination did not reveal any focal deficits. SKIN: No rashes. no petechiae. - Labs CBC & Chem 7: 03/17/23 06:41 03/17/23 06:41 Labs: Abnormal Lab Results - Last 24 Hours (Table) 03/16/23 03/16/23 03/17/23 Range/Units 16:29 21:00 02:03 WBC (3.8-10.6) k/uL Plt Count (150-450) k/uL Sodium (137-145) mmol/L Chloride (98-107) mmol/L BUN (7-17) mg/dL Glucose (74-99) mg/dL POC Glucose (mg/dL) 206 H 294 H 198 H (70-110) mg/dL Calcium (8.4-10.2) mg/dL 03/17/23 03/17/23 03/17/23 Range/Units 06:00 06:41 06:41 WBC 10.7 H (3.8-10.6) k/uL Plt Count 108 L (150-450) k/uL Sodium 127 L (137-145) mmol/L Chloride 94 L (98-107) mmol/L BUN 31 H (7-17) mg/dL Glucose 190 H (74-99) mg/dL POC Glucose (mg/dL) 206 H (70-110) mg/dL Calcium 8.2 L (8.4-10.2) mg/dL 03/17/23 Range/Units 11:28 WBC (3.8-10.6) k/uL Plt Count (150-450) k/uL Sodium (137-145) mmol/L Chloride (98-107) mmol/L BUN (7-17) mg/dL Glucose (74-99) mg/dL POC Glucose (mg/dL) 233 H (70-110) mg/dL Calcium (8.4-10.2) mg/dL Assessment and Plan Assessment: Continue with amiodarone for cardiothoracic surgery team Change insulin to Levemir 30 units daily and NovoLog 9 units with meals with insulin sliding scale and close monitoring of sugar. Chest tube was removed by cardiothoracic surgery team Pulmonary consult on the case Labs and medication were reviewed.. Continue same treatment. Continue with symptomatic treatment. Resume home medication. Monitor labs and vitals. DVT a nd GI prophylaxis. Further recommendations as per clinical course of the patient DVT prophylaxis: Subcutaneous Lovenox GI Prophylaxis: Pepcid PT/OT: Home health care Prognosis is guarded
[2023-03-17 19:52] LABS: Glucose,Whole Blood 182 mg/dL (70-110)
[2023-03-17] MEDS ORDERED: SODIUM CHLORIDE 0.9% 500 ML 500 ML IV ONE ×2 (21:44→21:56)
[2023-03-17 22:38] LABS: Glucose,Whole Blood 206 mg/dL (70-110)
--- NOTE | 2023-03-17 23:31 | XR ---
EXAM: XR Chest, 1 View CLINICAL HISTORY: ITS.REASON XR Reason: SOB TECHNIQUE: Frontal view of the chest. COMPARISON: CXR, 03/17/2023. FINDINGS: Lungs: Unremarkable. No consolidation. Pleural space: Moderate left pleural effusion. Heart: Cardiomegaly. Mediastinum: Unremarkable. Normal mediastinal contour. Bones/joints: Unremarkable. No acute fracture. Tubes, lines and devices: Air in the left chest wall from old chest tube. No definite pneumothorax. Continued follow-up recommended. IMPRESSION: Moderate left pleural effusion. Air in the left chest wall from old chest tube. No definite pneumothorax. Continued follow-up recommended.
[2023-03-17 23:37] LABS: HCT 39.9 % (34.0-46.0); HGB 13.2 gm/dL (11.4-16.0); MCH 32.1 pg (25.0-35.0); MCHC 32.9 g/dL (31.0-37.0); MCV 97.3 fL (80.0-100.0); Mean Platelet Volume 8.8; Platelet Count 127 k/uL (150-450); RDW 13.1 % (11.5-15.5); WBC 9.9 k/uL (3.8-10.6)
[2023-03-17] MEDS: ACETAMINOPHEN TAB 325 MG TAB PO PRN (23:46)
[2023-03-18] MEDS: AMIODARONE 200 MG TAB PO SCH (00:38)
[2023-03-18] MEDS ORDERED: DEXTROSE 5% IN WATER 100 ML with AMIODARONE 150 MG IV ONE (01:45)
[2023-03-18 02:05] LABS: Glucose,Whole Blood 246 mg/dL (70-110)
[2023-03-18] MEDS: INSULIN ASPART (NovoLOG) 100 UNIT/ML VIAL SQ SCH ×7 (02:17→20:34)
[2023-03-18 03:53] LABS: Glucose,Whole Blood 237 mg/dL (70-110)
[2023-03-18] MEDS ORDERED: AMIODARONE 360 MG in DEXTROSE 5% IN WATER 200 ML IV ONE ×2 (05:30)
[2023-03-18] MEDS: KETOROLAC 15 MG/ML 1 ML VIAL IVP SCH ×3 (05:39→17:26)
[2023-03-18 06:59] LABS: Glucose,Whole Blood 256 mg/dL (70-110)
[2023-03-18] MEDS: PANTOPRAZOLE 40 MG TABLET PO SCH (07:10)
[2023-03-18] MEDS: INSULIN DETEMIR (LEVEMIR) 100 UNIT/ML SYR SQ SCH (07:10)
[2023-03-18] MEDS ORDERED: INSULIN ASPART (NovoLOG) 100 UNIT/ML VIAL SQ SCH (07:30)
[2023-03-18 08:12] LABS: Basophils % (A) 0 %; Eosinophils # (A) 0.3 k/uL (0-0.7); Eosinophils % (A) 3 %; HCT 38.6 % (34.0-46.0); HGB 12.9 gm/dL (11.4-16.0); Lymphocytes # (A) 2.6 k/uL (1.0-4.8); Lymphocytes % (A) 24 %; MCH 31.9 pg (25.0-35.0); MCHC 33.5 g/dL (31.0-37.0); MCV 95.3 fL (80.0-100.0); Mean Platelet Volume 10.1; Monocytes # (A) 0.8 k/uL (0-1.0); Monocytes % (A) 8 %; Neutrophils # (A) 6.8 k/uL (1.3-7.7); Neutrophils % (A) 63 %; Platelet Count 141 k/uL (150-450); RBC 4.04 m/uL (3.80-5.40); RDW 13.4 % (11.5-15.5); WBC 10.7 k/uL (3.8-10.6)
[2023-03-18 08:25] LABS: ALT 47 U/L (4-34); AST 51 U/L (14-36); African American GFR (CKD) 87 (>60 ml/min/1.73 sqM); Albumin 2.9 g/dL (3.5-5.0); Alkaline Phosphatase 70 U/L (38-126); Anion Gap 11 mmol/L; Blood Urea Nitrogen 50 mg/dL (7-17); Calcium 8.1 mg/dL (8.4-10.2); Carbon Dioxide 22 mmol/L (22-30); Chloride 94 mmol/L (98-107); Glucose 223 mg/dL (74-99); Non-African American GFR(CKD) 76 (>60 ml/min/1.73 sqM); Potassium 4.2 mmol/L (3.5-5.1); Sodium 127 mmol/L (137-145); Total Bilirubin 0.9 mg/dL (0.2-1.3); Total Protein 6.6 g/dL (6.3-8.2)
[2023-03-18] MEDS: GABAPENTIN 400 MG CAP PO SCH ×3 (08:35→20:03)
[2023-03-18] MEDS: ENOXAPARIN 40 MG/0.4 ML SYRINGE SQ SCH (08:35)
[2023-03-18] MEDS: THIAMINE 100 MG TAB PO SCH (08:36)
[2023-03-18] MEDS: FOLIC ACID 1 MG TAB PO SCH (08:36)
[2023-03-18] MEDS: ATORVASTATIN 10 MG TAB PO SCH (08:36)
[2023-03-18] MEDS: MAGNESIUM OXIDE 400 MG TAB PO SCH ×2 (08:36→20:34)
[2023-03-18] MEDS: NICOTINE 7MG/24HR PATCH TRANSDERM SCH (09:10)
[2023-03-18] MEDS: IPRATROPIUM-ALBUTEROL 3 ML NEB IH SCH ×4 (09:15→20:03)
[2023-03-18] MEDS: SODIUM CHLORIDE TAB 1 GM TAB PO SCH ×2 (09:15→20:34)
[2023-03-18] MEDS: SYMBICORT 80-4.5 MCG INHALER INHALATION SCH ×2 (09:15→20:03)
[2023-03-18] MEDS: METOPROLOL TARTRATE 25 MG TAB PO SCH ×2 (09:16→20:09)
--- NOTE | 2023-03-18 09:18 | P.PN ---
Subjective Progress Note Date: 03/18/23 Principal diagnosis: Insulin dependent diabetes with poor glycemic control, hyperglycemia, hypomagnesemia, left upper lobe mass positive for well-differentiated adenocarcinoma. History of current tobacco dependence, COPD, daily EtOH use, hypertension, hyperlipidemia, stroke in 2016 with right-sided weakness, hepatitis B and C, bipolar depression, IV heroin use with last use August 2018 POD#3 Robotic assisted thoracoscopic left upper lobectomy with mediastinal lymph node dissection, fiberoptic bronchoscopy for evacuation of inspissated sputum Paroxysmal atrial fibrillation, known potential complication of lung surgery Hypotension although MAP stable, not requiring pressors The patient was seen and examined this morning, initially laying in bed but got up to recliner in the intensive care unit. She was transferred back to the intensive care unit after going into rapid A. fib with hypotension although mean pressure stable. Her Lopressor was held last night due to blood pressure, was given oral as well as IV bolus of amiodarone and restarted on drip per cardiology who was consulted last night for management. She was also given IV fluid bolus which didn't make any change in her blood pressure but likely contributed to the effusion seen on chest x-ray this morning. Chest x-ray looks a bit worse, patient likely needs bronchoscopy and diuresis once blood pressure stable. O2 demands increase, however using portable pulse oximeter instead of room monitor the patient's pulse ox is 97% on 7 L which can be titrated down. Narcotics discontinued this morning as every time patient was checked and yesterday she was sleeping, chest tube discontinued yesterday. Objective - Vital Signs Vital signs: Vital Signs Temp 97.8 F 03/18/23 04:00 Pulse 127 H 03/18/23 07:00 Resp 28 H 03/18/23 07:00 BP 86/69 03/18/23 07:00 Pulse Ox 94 L 03/18/23 07:00 FiO2 60 03/17/23 22:50 Intake & Output 03/17/23 03/18/23 03/18/23 18:59 06:59 18:59 Intake Total 445 99 33 Output Total 200 Balance 445 -101 33 Intake: IV 99 33 Amiodarone 360 mg In 99 33 Dextrose 5% in Water 200 ml @ 1 MG/MIN 33.333 mls/ hr IV .Q6H ONE Rx#: [id number] Oral 445 Output: Urine 200 Other: Voiding Method Indwelling Catheter # Voids 1 ABP, PAP, CO, CI - Last Documented Arterial Blood Pressure 99/38 - Exam CONSTITUTIONAL: Appears comfortable, cooperative, does complain of surgical pain which is to be expected RESPIRATORY: Lungs sounds diminished bilaterally, left greater than right. Respirations even, nonlabored. Currently on 7 LPM NC with oxygen saturation 97%. Able to achieve 500-750 mL on incentive spirometry. Strong cough. CARDIOVASCULAR: S1, S2 present. Tachycardic, irregular rate and rhythm, rapid A. fib on telemetry. Palpable peripheral pulses bilaterally. No edema present. No calf pain or tenderness noted. SCDs present. GASTROINTESTINAL: Abdomen soft, nontender, nondistended. Active bowel sounds present 4 quadrants. Tolerating diet. Positive flatus, last documented bowel movement 03/15 prior to surgery GENITOURINARY: Patient continues to void INTEGUMENTARY: Skin is warm and dry NEUROLOGIC: Cranial nerves II through XII intact MUSKULOSKELETAL: Able to move all extremities, strength equal bilaterally PSYCHIATRIC: Alert and oriented to person place and time, flat affect - Allied health notes Allied health notes reviewed: nursing - Labs CBC & Chem 7: 03/18/23 07:41 03/18/23 07:41 Labs: Abnormal Lab Results - Last 24 Hours (Table) 03/17/23 03/17/23 03/17/23 Range/Units 11:28 16:16 19:50 WBC (3.8-10.6) k/uL Plt Count (150-450) k/uL Sodium (137-145) mmol/L Chloride (98-107) mmol/L BUN (7-17) mg/dL Glucose (74-99) mg/dL POC Glucose (mg/dL) 233 H 240 H 182 H (70-110) mg/dL Calcium (8.4-10.2) mg/dL AST (14-36) U/L ALT (4-34) U/L Albumin (3.5-5.0) g/dL 03/17/23 03/17/23 03/18/23 Range/Units 22:37 23:02 02:04 WBC (3.8-10.6) k/uL Plt Count 127 L (150-450) k/uL Sodium (137-145) mmol/L Chloride (98-107) mmol/L BUN (7-17) mg/dL Glucose (74-99) mg/dL POC Glucose (mg/dL) 206 H 246 H (70-110) mg/dL Calcium (8.4-10.2) mg/dL AST (14-36) U/L ALT (4-34) U/L Albumin (3.5-5.0) g/dL 03/18/23 03/18/23 03/18/23 Range/Units 03:52 06:57 07:41 WBC 10.7 H (3.8-10.6) k/uL Plt Count 141 L (150-450) k/uL Sodium (137-145) mmol/L Chloride (98-107) mmol/L BUN (7-17) mg/dL Glucose (74-99) mg/dL POC Glucose (mg/dL) 237 H 256 H (70-110) mg/dL Calcium (8.4-10.2) mg/dL AST (14-36) U/L ALT (4-34) U/L Albumin (3.5-5.0) g/dL 03/18/23 Range/Units 07:41 WBC (3.8-10.6) k/uL Plt Count (150-450) k/uL Sodium 127 L (137-145) mmol/L Chloride 94 L (98-107) mmol/L BUN 50 H (7-17) mg/dL Glucose 223 H (74-99) mg/dL POC Glucose (mg/dL) (70-110) mg/dL Calcium 8.1 L (8.4-10.2) mg/dL AST 51 H (14-36) U/L ALT 47 H (4-34) U/L Albumin 2.9 L (3.5-5.0) g/dL - Imaging and Cardiology Chest x-ray: image reviewed Assessment and Plan Assessment: Insulin dependent diabetes with poor glycemic control, hyperglycemia, A1c 9.8% Hypomagnesemia Left upper lobe mass positive for well-differentiated adenocarcinoma, status post left upper lobectomy Current tobacco dependence Moderate COPD, preoperative FEV1 54% of predicted, DLCO 36% of predicted Current daily EtOH use Hypertension, currently hypotensive Hyperlipidemia Stroke in 2016 with right-sided weakness Hepatitis B and C Bipolar depression History of IV heroin use with last use August 2018 Paroxysmal atrial fibrillation Plan: Continue amiodarone, beta ana maría for A. fib. No anticoagulation due to recent surgery Continue to improve blood glucose control, insulin adjustments made by primary service, continue to up titrate insulin Increase activity, ambulate as tolerated. Patient should be out of bed for all meals, she should be out of bed the majority of the day and use the bed for sleeping at nighttime only Wean oxygen as tolerated. Encourage incentive spirometry 10x every hour while awake. Bronchodilators per pulmonology. Possible bronchoscopy tomorrow per pulmonology Monitor for alcohol withdrawal, thiamine and folic acid ordered, magnesium repla bryan Nicotine patch in place Smoking cessation counseling and education reinforced Narcotics discontinued, alternate Tylenol and Toradol for pain control Appreciate recommendations from Dr. Crooks who knows this patient very well Medical management of other comorbidities per internal medicine
[2023-03-18] MEDS: ACETAMINOPHEN TAB 325 MG TAB PO PRN ×3 (09:25→20:03)
--- NOTE | 2023-03-18 10:32 | P.PN ---
Subjective Patient is a 57-year-old female came in for elective pulmonary lobectomy for lung cancer found to have highly elevated blood sugars of 500 because of which patient was admitted patient last hemoglobin A1c was more than a year ago at that time it was 7.5 it appears patient may be noncompliant. Patient admits to drinking vodka with watermelon juice last night. Patient does have history of COPD continues to smoke 5 cigarettes per day is bit hypoxic. Chest x-ray showed some interstitial prominence although clinically patient doesn't appear to be in CHF patient does take 20 mg of Lasix at home patient has chronic venous stasis dermatosis of both legs and will be dermatitis. Patient is on Trulicity, 20 units of long-acting insulin along with metformin at home for diabetes with us. Patient blood sugars is presently about 300. Patient had a chest xray showing 1.2 cm let upper lobe pulmonary mass. She will be going for lung resection on . 03/12/2023 Patient sitting up in bed today. Needs to be up in the chair for the day. Patien t verbalized understanding. Blood glucose remains elevated. Levemir will be increased and scheduled insulin added. 03/13/2023 Patient evaluated [facility]. She is sitting up in the chair no acute complaints overnight. She is scheduled to undergo elective lobe resection on Wednesday. Blood glucose remains elevated at this time it has come down into the 190s however back up to 365. She is on a combination of sliding scale insulin as well as 3 units of scheduled and 25 units daily Levemir. These have been increased today. 03/14/2023 Patient is evaluated today, sitting up in chair. Patient to undergo elective lobe resection on wednesday with CT surgery. No acute complaints. Blood glucose remains elevated but overall improved, fluctuating between 188-312 this afternoon. 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 She will be monitored postoperatively in the ICU. Blood glucose this AM down to 150 and 176. Still fluctuating in to the high 200s. Will continue with current regimen as patient will be NPO for surgery to avoid hypoglycemia. If she remains elevated insulin will be further increased. 03/16/2023 Patient is evaluated today in the ICU postoperative day #1 left upper lobectomy. Patient has left CT in place with chest xray today showing left-sided consolidation and small effusion with no sizable pneumothorax. Labs showing white count of 11.2, sodium level of 35. BUN 14, creatinine 0.49. Magnesium 1.4. Glucose has been slowly improving. Patient has been afebrile, heart rate 80s, blood pressure on the lower side 95/38. On 2L of oxygen. 03/17/2023 Patient presents with non-small lung cancer of the left upper lobe status post robotic assisted thoracoscopic left upper lobectomy on 03/15. Today postop day #2. Patient was transferred out of the ICU to the select unit today morning. Patient was lying in bed looks tired. Left chest tube in place but later on her chest tube was removed. Chest x-ray showing no sizable pneumothorax but persistent postop changes with a stable left lower lobe consolidation. Patient blood pressure on the low normal side about 88/51, no dizziness. Currently she is on 2 L oxygen via nasal cannula. She had a fever on 03/14 but no more fevers since then. She has mild leukocytosis coming down to 11.2 down to 10.7. Liver enzymes mildly elevated. Sodium 127 Glucose more than 200, she is on Lantus 15 units at home and she was taken here as of yesterday Levemir 25 units daily and 8 units at bedtime, we change and fat to Levemir 30 units daily starting tomorrow. Also she is on insulin sliding scale. We going to increase her NovoLog 5 units with meals up to 9 units and change her Levemir to 30 units daily with close monitoring of her glucose. Her amiodarone drip was stopped and switched to oral amiodarone. 03/18/2023 Patient become hypotensive overnight, her night, but time murmurs held her beta ana maría and amiodarone, she developed tachycardia with heart rate was 120-1:30, she was also hypotensive blood pressure 83/73 therefore patient was transferred back to the intensive care unit. This morning she is awake and alert, in mild distress due to severe weakness. She denies chest pain or dyspnea this morning. She was started back on amiodarone drip by control systems eng and blood pressure improved 113/61. Heart rate is also improved but EKG today showed sinus rhythm at 72 with occasional PVCs She received 1 L of normal saline Chest x-ray showing slightly worse consolidation especially on the left side probably due to fluid accumulation. Patient does not have a fever, she has mild leukocytosis which is a stable. No strong evidence of infection patient currently off antibiotic. Sodium 127 most likely hypovolemic hyponatremia. She remains on amiodarone drip, Lovenox for DVT prophylaxis After sugars still more than 200, we will continue with Levemir 30 units and increase NovoLog 9 up to 12 units with meals Chest the tube already removed yesterday from the left side. Review of systems CONSTITUTIONAL: No fever, no malaise, no fatigue. HEENT: No recent visual problems or hearing problems. Denied any sore throat. CARDIOVASCULAR: No orthopnea, PND, no palpitations, no syncope. PULMONARY: No chest wall tenderness GastrointestiL: No diarrhea, no nausea, no vomiting, no abdominal pain. Normoact yadira bowel sounds. NEUROLOGICAL: No headaches, no weakness, no numbness. Active Medications Generic Name Dose Route Start Last Admin Trade Name Freq PRN Reason Stop Dose Admin Acetaminophen 650 mg 03/15/23 13:06 03/18/23 09:25 Acetaminophen Tab 325 Mg Tab PO 650 mg Q4HR PRN Administration Mild to Moderate Pain (1 - 6) Albuterol/Ipratropium 3 ml 03/15/23 13:06 Ipratropium-Albuterol 3 Ml Neb IH RT-Q1H PRN Shortness Of Breath Or Wheezing Albuterol/Ipratropium 3 ml 03/15/23 13:06 03/18/23 09:15 Ipratropium-Albuterol 3 Ml Neb IH 3 ml RT-QID BLAIRE Administration Amiodarone HCl 400 mg 03/17/23 09:00 03/18/23 00:38 Amiodarone 200 Mg Tab PO 400 mg BID BLAIRE Administration Atorvastatin Calcium 10 mg 03/12/23 09:00 03/18/23 08:36 Atorvastatin 10 Mg Tab PO 10 mg DAILY BLAIRE Administration Bisacodyl 10 mg 03/15/23 13:06 03/18/23 08:46 Bisacodyl 10 Mg Supp RECTAL 10 mg DAILY PRN Administration Constipation Budesonide/Formoterol Fumarate 2 puff 03/12/23 08:00 03/18/23 09:15 Symbicort 80-4.5 Mcg Inhaler INHALATION 2 puff RT-BID BLAIRE Administration Dextrose/Water 25 ml 03/11/23 10:55 Dextrose 50% Syringe 50 Ml IVP PER PROTOCOL PRN Hypoglycemia Protocol Dextrose/Water 50 ml 03/11/23 10:55 Dextrose 50% Syringe 50 Ml IVP PER PROTOCOL PRN Hypoglycemia Protocol Enoxaparin Sodium 40 mg 03/12/23 09:00 03/18/23 08:35 Enoxaparin 40 Mg/0.4 Ml Syringe SQ 40 mg DAILY BLAIRE Administration Folic Acid 1 mg 03/11/23 15:30 03/18/23 08:36 Folic Acid 1 Mg Tab PO 1 mg DAILY BLAIRE Administration Gabapentin 800 mg 03/11/23 16:00 03/18/23 08:35 Gabapentin 400 Mg Cap PO 800 mg TID BLAIRE Administration Amiodarone HCl 360 mg/ 200 mls @ 33.333 mls/hr 03/18/23 05:30 03/18/23 05:36 Dextrose/Water IV 03/18/23 11:29 1 mg/min .Q6H ONE 33.333 mls/hr Administration Protocol 1 MG/MIN Amiodarone HCl 450 mg/ 250 mls @ 16.667 mls/hr 03/18/23 11:30 03/18/23 10:15 Dextrose/Water IV 03/19/23 05:29 0.5 mg/min .Q15H BLAIRE 16.667 mls/hr Administration Protocol 0.5 MG/MIN Insulin Aspart 0 unit 03/13/23 13:00 03/18/23 07:10 Insulin Aspart (Novolog) 100 Unit/Ml Vial SQ 6 unit [id number] BLAIRE Administration Protocol Insulin Aspart 12 unit 03/18/23 12:30 Insulin Aspart (Novolog) 100 Unit/Ml Vial SQ AC-TID [facility] Insulin Detemir 30 unit 03/18/23 07:00 03/18/23 07:10 Insulin Detemir (Levemir) 100 Unit/Ml Syr SQ 30 unit DAILY@0700 BLAIRE Administration Ketorolac Tromethamine 15 mg 03/16/23 08:30 03/18/23 05:39 Ketorolac 15 Mg/Ml 1 Ml Vial IVP 03/21/23 08:28 15 mg Q6HR BLAIRE Administration Lorazepam 0.5 mg 03/13/23 13:38 03/15/23 22:31 Lorazepam 0.5 Mg Tab PO 0.5 mg Q4HR PRN Administration Ciwa 4 To 5 Lorazepam 1 mg 03/13/23 13:38 03/14/23 20:37 Lorazepam 1 Mg Tab PO 1 mg Q4HR PRN Administration Ciwa 6 To 7 Lorazepam 2 mg 03/13/23 13:38 Lorazepam 1 Mg Tab PO Q2HR PRN Ciwa 10 or greater Lorazepam 2 mg 03/13/23 13:38 Lorazepam 1 Mg Tab PO Q3HR PRN Ciwa 8 To 9 Lorazepam 1 mg 03/13/23 13:38 Lorazepam 1 Mg Tab PO Q1HR PRN Alcohol Withdrawal Magnesium Oxide 400 mg 03/16/23 09:00 03/18/23 08:36 Magnesium Oxide 400 Mg Tab PO 400 mg BID BLAIRE Administration Metoprolol Tartrate 25 mg 03/17/23 09:00 03/18/23 09:16 Metoprolol Tartrate 25 Mg Tab PO 25 mg BID BLAIRE Administration Naloxone HCl 0.2 mg 03/11/23 10:55 Naloxone 0.4 Mg/Ml 1 Ml Vial IV Q2M PRN Opioid Reversal Nicotine 1 patch 03/12/23 09:00 03/18/23 09:10 Nicotine 7mg/24hr Patch TRANSDERM 1 patch DAILY BLAIRE Administration Non-Formulary Medication 1.5 mg 03/16/23 09:00 03/16/23 11:07 Dulaglutide [Trulicity] SQ Not Given [facility] [place] Ondans[place]ron HCl 4 mg 03/15/23 13:06 Ondansetron 4 Mg/2 Ml Vial IVP Q8HR PRN Nausea And Vomiting Pantoprazole Sodium 40 mg 03/16/23 07:30 03/18/23 07:10 Pantoprazole 40 Mg Tablet PO 40 mg [id number] BLAIRE Administration Sodium Chloride 10 ml 03/16/23 09:00 03/18/23 09:18 Sodium Chloride 0.9% Flush 10 Ml Syringe IV 10 ml BID BLAIRE Administration Sodium Chloride 1 gm 03/17/23 09:00 03/18/23 09:15 Sodium Chloride Tab 1 Gm Tab PO 1 gm BID BLAIRE Administration Thiamine HCl 100 mg 03/11/23 15:30 03/18/23 08:36 Thiamine 100 Mg Tab PO 100 mg DAILY BLAIRE Administration Objective - Vital Signs Vital signs: Vital Signs Temp 97.5 F L 03/18/23 08:00 Pulse 59 L 03/18/23 10:00 Resp 20 03/18/23 10:00 BP 113/61 03/18/23 10:00 Pulse Ox 95 03/18/23 10:00 FiO2 60 03/17/23 22:50 Intake & Output 03/17/23 03/18/23 03/18/23 18:59 06:59 18:59 Intake Total 445 99 115.6 Output Total 200 300 Balance 445 -101 -184.4 Intake: IV 99 99 Amiodarone 360 mg In 99 99 Dextrose 5% in Water 200 ml @ 1 MG/MIN 33.333 mls/ hr IV .Q6H ONE Rx#: [id number] Intake, IV Titration 16.6 Amount Amiodarone 450 mg In 16.6 Dextrose 5% in Water 250 ml @ 0.5 MG/MIN 16.667 mls/hr IV .Q15H BLAIRE Rx#: [id number] Oral 445 Output: Urine 200 300 Other: Voiding Method Indwelling Catheter # Voids 1 ABP, PAP, CO, CI - Last Documented Arterial Blood Pressure 99/38 - Exam GENERAL: The patient is alert and oriented x3, not in any acute distress. Well developed, well nourished. HEENT: Pupils are round and equally reacting to light. EOMI. No scleral icterus. No conjunctival pallor. Normocephalic, atraumatic. No pharyngeal erythema. No thyromegaly. CARDIOVASCULAR: S1 and S2 present. No murmurs, rubs, or gallops. -PULMONARY: Chest is clear to auscultation, no wheezing , no crackles. chest tube in place ABDOMEN: Soft, nontender, nondistended, normoactive bowel sounds. No palpable organomegaly. MUSCULOSKELETAL: No joint swelling or deformity. EXTREMITIES: No cyanosis, clubbing, or pedal edema. NEUROLOGICAL: Gross neurological examination did not reveal any focal deficits. SKIN: No rashes. no petechiae. - Labs CBC & Chem 7: 03/18/23 07:41 03/18/23 07:41 Labs: Abnormal Lab Results - Last 24 Hours (Table) 03/17/23 03/17/23 03/17/23 Range/Units 11:28 16:16 19:50 WBC (3.8-10.6) k/uL Plt Count (150-450) k/uL Sodium (137-145) mmol/L Chloride (98-107) mmol/L BUN (7-17) mg/dL Glucose (74-99) mg/dL POC Glucose (mg/dL) 233 H 240 H 182 H (70-110) mg/dL Calcium (8.4-10.2) mg/dL AST (14-36) U/L ALT (4-34) U/L Albumin (3.5-5.0) g/dL 03/17/23 03/17/23 03/18/23 Range/Units 22:37 23:02 02:04 WBC (3.8-10.6) k/uL Plt Count 127 L (150-450) k/uL Sodium (137-145) mmol/L Chloride (98-107) mmol/L BUN (7-17) mg/dL Glucose (74-99) mg/dL POC Glucose (mg/dL) 206 H 246 H (70-110) mg/dL Calcium (8.4-10.2) mg/dL AST (14-36) U/L ALT (4-34) U/L Albumin (3.5-5.0) g/dL 03/18/23 03/18/23 03/18/23 Range/Units 03:52 06:57 07:41 WBC 10.7 H (3.8-10.6) k/uL Plt Count 141 L (150-450) k/uL Sodium (137-145) mmol/L Chloride (98-107) mmol/L BUN (7-17) mg/dL Glucose (74-99) mg/dL POC Glucose (mg/dL) 237 H 256 H (70-110) mg/dL Calcium (8.4-10.2) mg/dL AST (14-36) U/L ALT (4-34) U/L Albumin (3.5-5.0) g/dL 03/18/23 Range/Units 07:41 WBC (3.8-10.6) k/uL Plt Count (150-450) k/uL Sodium 127 L (137-145) mmol/L Chloride 94 L (98-107) mmol/L BUN 50 H (7-17) mg/dL Glucose 223 H (74-99) mg/dL POC Glucose (mg/dL) (70-110) mg/dL Calcium 8.1 L (8.4-10.2) mg/dL AST 51 H (14-36) U/L ALT 47 H (4-34) U/L Albumin 2.9 L (3.5-5.0) g/dL Assessment and Plan Assessment: -Lung cancer was recently diagnosed with non small cell and is now status post upper lobectomy with cardiothoracic surgery following closely.. Patient monitored in the ICU postoperatively. -Diabetes mellitus with hyperglycemia -Hypotension, improved -Hypovolemic hypernatremia -Mild hypoxia probably secondary to emphysema patient is presently not in COPD exacerbation, mention of interstitial prominence, BNP was 166 patient is on room air. -COPD without any acute exacerbation -hyperlipidemia -Hypertension -hypervascular disease -continued nicotine use: Counseling was provided Plan: Continue with amiodarone for cardiothoracic surgery team Change insulin to Levemir 30 units daily and NovoLog 12 units with meals with insulin sliding scale and close monitoring of sugar. Chest tube was removed by cardiothoracic surgery team Pulmonary consult on the case Patient started on sodium tablets We recommend fluid restriction, currently 1500 per day Labs and medication were reviewed.. Continue same treatment. Continue with symptomatic treatment. Resume home medication. Monitor labs and vitals. DVT and GI prophylaxis. Further recommendations as per clinical course of the patient DVT prophylaxis: Subcutaneous Lovenox GI Prophylaxis: Pepcid PT/OT: Home health care Prognosis is guarded
--- NOTE | 2023-03-18 11:16 | XR ---
EXAMINATION TYPE: XR chest 1V DATE OF EXAM: 03/18/2023 COMPARISON: 03/17/2022 HISTORY: Chest tube TECHNIQUE: Single frontal view of the chest is obtained. FINDINGS: There is increasing left-sided consolidation and small pleural effusion. The cardiac silho uette size is enlarged. The osseous structures are intact. A left-sided subcutaneous air. There is le ft-sided consolidation and small effusion. Underlying COPD and chronic interstitial lung disease. Rig ht basilar subsegmental consolidation. IMPRESSION: 1. There is increasing left-sided consolidation and pleural effusion with volume loss. Cannot exclude a tiny left apical pneumothorax.
--- NOTE | 2023-03-18 11:23 | P.PN ---
Subjective Progress Note Date: 03/18/23 Principal diagnosis: Lung cancer. Pulmonary consult dated 03/15/2023. This is a 57-year-old female who was admitted for possible left upper lobectomy, by Dr. June. Initially, the patient had a significant elevation in her blood, and the surgery was delayed. It was finally done today. He did call me after the procedure. In December of this year, my partner, did a flexible bronchoscopy, robotically-assisted bronchoscopy, and biopsies, the lesion, and the left upper lobe. The biopsies were positive for well-differentiated pulmonary adenocarcinoma. Currently, the patient's resting comfortably in the intensive care unit. The patient's on 4 L of oxygen, and getting saline at 50 mL an hour. Again as I mentioned above, I did speak to the surgeon about this patient. He was concerned that she may need bronchoscopy over the next few days, for left lung collapse. Apparently her airways were full of mucus. Currently labs data only includes a glucose of 260. Chest x-ray shows a left- sided consolidation and a small effusion, with no sizable pneumothorax. Chest tube is noted. Labs from yesterday include a white count of 5.9, hemoglobin 13.4, hematocrit 39.7, and a platelet count of 96,000. Sodium 137, potassium 4.3, chlorides 102, CO2 27, UN 15, and creatinine 0.7. N-terminal proBNP was 166. Progress note dated 03/16/2023. 57-year-old female postop day #1, status post robotically assisted thoracoscopic left upper lobectomy for lung cancer. The patient is seen today in room 257. She is on 2 L of oxygen. She's getting saline at 50 mL an hour. According to the nurses, the patient had an uneventful night. The patient's resting comfortably in bed. Again, she is on 2 L, by nasal cannula. White count 11.2, hemoglobin 13.4, and platelet count 105,000. Sodium 135, potassium 3.9, chlorides 99, CO2 28, BUN 14, creatinine 0.49. Magnesium 1.4. Chest x-rays shows some volume loss in the left lung, with some left-sided consolidation, and a small effusion. Progress note dated 03/17/2023. 57-year-old female, postop day #2, status post robotically assisted thoracoscopic left upper lobectomy for lung cancer. The patient is seen today in room 362. She's currently on room air, but saturations are only 87%. I asked respiratory therapy to place her on oxygen at 2 L. The left-sided chest tube had been removed. She's getting saline at 10 mL an hour. White count is 10.7, hemoglobin 13.1, hematocrit 40, and platelet count 108,000. Sodium 127, potassium 4.2, chlorides 94, CO2 25, BUN 31, and creatinine 0.71. Calcium is 8.2. Magnesium is 2.2. Chest x-ray from today shows postoperative changes, with stable left-sided consolidation and small pleural effusion. No pneumothorax is seen. Progress note dated 03/18/2023. 57-year-old female, postoperative day #3, status post robotically assisted thoracoscopic left upper lobectomy for early stage lung cancer. The patient was outside on the general floor, but came back into the intensive care unit, room 251, because of atrial fibrillation with rapid ventricular response. Currently, she is seen in the ICU, and is currently on 7 L high flow oxygen, and amiodarone at 1 mg/m. We did make her nothing by mouth after midnight, for possible bronchoscopy tomorrow. Her chest x-ray shows partial collapse of the left lung. White count is 10.7, hemoglobin 0.9, hematocrit 38.6, with a platelet count of 141,000. Sodium 127, potassium 4.2, chlorides 94, CO2 22, BUN 50, and creatinine 0.85. Glucose 223. Albumin is 2.9. Chest x-ray shows increasing left-sided consolidation and pleural effusion, with volume loss. There may be a tiny left apical pneumothorax. Objective - Vital Signs Vital signs: Vital Signs Temp 97.5 F L 03/18/23 08:00 Pulse 59 L 03/18/23 10:00 Resp 20 03/18/23 10:00 BP 113/61 03/18/23 10:00 Pulse Ox 95 03/18/23 10:00 FiO2 60 03/17/23 22:50 Intake & Output 03/17/23 03/18/23 03/18/23 18:59 06:59 18:59 Intake Total 445 99 115.6 Output Total 200 500 Balance 445 -101 -384.4 Weight 85.1 kg Intake: IV 99 99 Amiodarone 360 mg In 99 99 Dextrose 5% in Water 200 ml @ 1 MG/MIN 33.333 mls/ hr IV .Q6H ONE Rx#: [id number] Intake, IV Titration 16.6 Amount Amiodarone 450 mg In 16.6 Dextrose 5% in Water 250 ml @ 0.5 MG/MIN 16.667 mls/hr IV .Q15H [facility] Rx#: [id number] Oral 445 Output: Urine 200 500 Other: Voiding Method Indwelling Catheter # Voids 1 ABP, PAP, CO, CI - Last Documented Arterial Blood Pressure 99/38 - Exam No acute distress, oriented 3. Currently on 7 L high flow nasal cannula. HEENT examination is grossly unremarkable. Mucous membranes are moist. No oral lesions. Neck supple. Full range of motion. No adenopathy thyromegaly or neck vein distention. Cardiovascular examination reveals regular rhythm rate. S1-S2 normal. No S3 or S4. No discernible murmur noted. Heart rate 92 bpm. Lungs reveal diminished bilateral breath sounds, left greater than right. 5 L saturation is 95%. Abdomen soft bowel sounds are heard. No masses or tenderness. Extremities are intact. No cyanosis clubbing or edema. Skin is without rash or lesion. Neurologic examination is brief but nonfocal. - Labs CBC & Chem 7: 03/18/23 07:41 03/18/23 07:41 Labs: Abnormal Lab Results - Last 24 Hours (Table) 03/17/23 03/17/23 03/17/23 Range/Units 11:28 16:16 19:50 WBC (3.8-10.6) k/uL Plt Count (150-450) k/uL Sodium (137-145) mmol/L Chloride (98-107) mmol/L BUN (7-17) mg/dL Glucose (74-99) mg/dL POC Glucose (mg/dL) 233 H 240 H 182 H (70-110) mg/dL Calcium (8.4-10.2) mg/dL AST (14-36) U/L ALT (4-34) U/L Albumin (3.5-5.0) g/dL 03/17/23 03/17/23 03/18/23 Range/Units 22:37 23:02 02:04 WBC (3.8-10.6) k/uL Plt Count 127 L (150-450) k/uL Sodium (137-145) mmol/L Chloride (98-107) mmol/L BUN (7-17) mg/dL Glucose (74-99) mg/dL POC Glucose (mg/dL) 206 H 246 H (70-110) mg/dL Calcium (8.4-10.2) mg/dL AST (14-36) U/L ALT (4-34) U/L Albumin (3.5-5.0) g/dL 03/18/23 03/18/23 03/18/23 Range/Units 03:52 06:57 07:41 WBC 10.7 H (3.8-10.6) k/uL Plt Count 141 L (150-450) k/uL Sodium (137-145) mmol/L Chloride (98-107) mmol/L BUN (7-17) mg/dL Glucose (74-99) mg/dL POC Glucose (mg/dL) 237 H 256 H (70-110) mg/dL Calcium (8.4-10.2) mg/dL AST (14-36) U/L ALT (4-34) U/L Albumin (3.5-5.0) g/dL 03/18/23 Range/Units 07:41 WBC (3.8-10.6) k/uL Plt Count (150-450) k/uL Sodium 127 L (137-145) mmol/L Chloride 94 L (98-107) mmol/L BUN 50 H (7-17) mg/dL Glucose 223 H (74-99) mg/dL POC Glucose (mg/dL) (70-110) mg/dL Calcium 8.1 L (8.4-10.2) mg/dL AST 51 H (14-36) U/L ALT 47 H (4-34) U/L Albumin 2.9 L (3.5-5.0) g/dL Assessment and Plan Assessment: Postop day #3, status post robotically assisted thoracoscopic left upper lobectomy with mediastinal lymph node dissection, for early stage NSCLC. Intraoperative bronchoscopy, for airway secretion control. History of chronic obstructive pulmonary disease. History of CVA. History of diabetes mellitus. History of hypertension. History of hyperlipidemia. History of alcohol abuse and heroin abuse. History of hepatitis B and C. Plan: Plan dated 03/15/2023. Dr. June, was kind enough call me about this patient, and give me a heads up s o to speak. The patient required intraoperative bronchoscopy, for airway secretion. He suggested that she may need follow-up bronchoscopy, throughout her hospitalization. The patient was seen in the intensive care unit, room 257. The patient has a left-sided chest tube. She continues on oxygen at 4 L. She's getting saline at 50 mL an hour. Labs, x-rays, and medications are reviewed. We spoke to the nurse about this patient. Additional recommendations and suggestions are forthcoming. Prognosis is guarded. Plan dated 03/16/2023. The patient is seen today in room 257. He's postop day #1. The patient's currently on 2 L. She's getting saline at 50 mL an hour. The patient received some narcotic the night, for pain. It did seem to settle her down. She has a left-sided chest tube. Labs, x-rays, medications are all reviewed. We will continue to follow the patient, make recommendations along the way. We do recommend hourly use of the incentive spirometer. The patient has been downgraded by cardiothoracic surgery Plan dated 03/17/2023. The patient is seen today in room 362. She's on room air, but saturations are only 87%. I've asked respiratory to apply oxygen by nasal cannula, at 2 L. The patient currently is on saline at 10 mL an hour. Her chest x-ray stable. Labs, x-rays, and medications are reviewed. We will encourage the patient continue to deep breathe, cough, and clear secretions, and use the incentive spirometer, every hour while awake. The patient is stable, but prognosis is guarded. Plan dated 03/18/2023. The patient is much more hypoxemic than she was yesterday. The patient's currently on between 5-7 L oxygen, by nasal cannula. In addition, the patient developed atrial fibrillation with RVR, and was transferred back to the intensive care unit. She's currently on amiodarone at 1 mg/m. Labs, x-rays, and medications are reviewed. Chest x-rays a bit worse and it has been. She may require bronchoscopy tomorrow. Labs, x-rays, and medications are reviewed. We will continue to follow the patient, and make recommendations along the way. Prognosis is guarded. Time with Patient: Greater than 30
[2023-03-18 11:24] LABS: Glucose,Whole Blood 186 mg/dL (70-110)
[2023-03-18] MEDS ORDERED: AMIODARONE 450 MG in DEXTROSE 5% IN WATER 250 ML IV SCH ×2 (11:30)
[2023-03-18 16:10] LABS: Glucose,Whole Blood 201 mg/dL (70-110)
[2023-03-18] MEDS: ACETYLCYSTEINE 800 MG/4 ML VIAL INHALATION SCH ×2 (16:17→20:02)
[2023-03-18 20:08] LABS: Glucose,Whole Blood 162 mg/dL (70-110)
--- NOTE | 2023-03-18 23:14 | CONS ---
CONSULTATION SUBJECTIVE: Denny De is a 57-year-old lady who underwent lung surgery that was performed by Dr. June on the 18 of this month. She had a robotic-assisted thorascopic left upper lobectomy for a non-small cell CA. Post procedure, she was doing fine. She was apparently seen by Dr. Crooks and cleared for surgery. However, she developed atrial fibrillation with a rapid ventricular rate, which is new for her last night and was transferred to the ICU, loaded up with amiodarone. She is back in sinus rhythm. She is comfortable, resting. Denies any chest discomfort at the time of my evaluation. She is feeling comfortable. PAST MEDICAL HISTORY: Please refer to the detailed note by Dr. June for other information. 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 MEDICATIONS AT HOME: 1. Insulin. 2. Lasix. 3. Trulicity. 4. Lipitor. 5. Cozaar. 6. Ativan. PHYSICAL EXAMINATION: VITAL SIGNS: Blood pressure is 110/70, pulse rate is 70, sinus. HEENT: Unremarkable. Fundus was not examined by me. NECK: Supple. No JVD. I do not hear a carotid bruit. HEART: Reveals S1, S2. No significant murmurs. LUNGS: Diminished air entry. ABDOMEN: Soft. EXTREMITIES: Lower extremities reveal diminished pulses. NEUROLOGIC: Central nervous system is normal. IMPRESSION: 1. Episode of paroxysmal atrial fibrillation which is not uncommon after a lung surgery. 2. History of hypertension. 3. Hyperlipidemia. 4. Type 2 diabetes mellitus. RECOMMENDATIONS: I am recommending that we obtain echocardiogram to assess LV function and I will request the surgeon to let me know his thoughts on heparinizing the patient and the timing of heparin. Thank you very much for the consult indication. MMODL / IJN: [id number] /
[2023-03-19] MEDS: KETOROLAC 15 MG/ML 1 ML VIAL IVP SCH ×5 (00:01→23:35)
[2023-03-19] MEDS: AMIODARONE 450 MG in DEXTROSE 5% IN WATER 250 ML IV SCH ×4 (01:56→12:04)
[2023-03-19 02:02] LABS: Glucose,Whole Blood 180 mg/dL (70-110)
[2023-03-19] MEDS: INSULIN ASPART (NovoLOG) 100 UNIT/ML VIAL SQ SCH ×8 (02:13→20:15)
[2023-03-19] MEDS: ACETAMINOPHEN TAB 325 MG TAB PO PRN ×3 (03:17→21:20)
[2023-03-19 06:14] LABS: Glucose,Whole Blood 122 mg/dL (70-110)
[2023-03-19] MEDS: INSULIN DETEMIR (LEVEMIR) 100 UNIT/ML SYR SQ SCH (06:19)
[2023-03-19] MEDS: PANTOPRAZOLE 40 MG TABLET PO SCH (06:20)
--- NOTE | 2023-03-19 07:26 | CA ---
Transthoracic Echo Report Name: Denny De Age: 57 Gender: F : 1965 Exam Date: 03/18/2023 15:23 Exam Location: [facility] Ht (in): 65 Wt (lb): 187 Ordering Physician: Karolyn Perez MD ([id number]) Attending/Referring Phys: Systems Integration Engineer Selin Singh [facility] Procedure CPT: Indications: assess heart function Cardiac Hx: Technical Quality: Technically difficult study Contrast 1: Definity Total Dose (mL): 5 Contrast 2: Total Dose (mL): MEASUREMENTS (Male / Female) Normal Values 2D ECHO LV Diastolic Diameter PLAX 4.2 cm 4.2 - 5.9 / 3.9 - 5.3 cm LV Systolic Diameter PLAX 2.9 cm IVS Diastolic Thickness 1.3 cm 0.6 - 1.0 / 0.6 - 0.9 cm LVPW Diastolic Thickness 0.9 cm 0.6 - 1.0 / 0.6 - 0.9 cm LV Relative Wall Thickness 0.5 LVOT Diameter 2.0 cm Ascending Aorta Diameter 2.9 cm M-MODE Aortic Root Diameter MM 2.7 cm LA Systolic Diameter MM 4.0 cm LA Ao Ratio MM 1.5 AV Cusp Separation MM 1.9 cm DOPPLER AV Peak Velocity 116.3 cm/s AV Peak Gradient 5.4 mmHg AV Mean Velocity 77.1 cm/s AV Mean Gradient 2.7 mmHg AV Velocity Time Integral 24.5 cm LVOT Peak Velocity 81.2 cm/s LVOT Peak Gradient 2.6 mmHg LVOT Velocity Time Integral 16.5 cm LVOT Stroke Volume 49.8 cm??? LVOT Stroke Volume Index 25.9 ml/m??? LVOT Cardiac Index 1469.2 cm???/min???m??? AV Area Cont Eq vti 2.0 cm??? AV Area Cont Eq pk 2.1 cm??? Mitral E Point Velocity 78.8 cm/s Mitral A Point Velocity 47.7 cm/s Mitral E to A Ratio 1.7 MV Deceleration Time 107.2 ms LV E' Lateral Velocity 6.1 cm/s Mitral E to LV E' Lateral Ratio 12.8 LV E' Septal Velocity 6.7 cm/s Mitral E to LV E' Septal Ratio 11.8 TR Peak Velocity 288.4 cm/s TR Peak Gradient 33.3 mmHg Right Atrial Pressure 8.0 mmHg Pulmonary Artery Systolic Pressu 41.3 mmHg Right Ventricular Systolic Press 41.3 mmHg FINDINGS Left Ventricle Mildly increased septal wall thickness. Left ventricular cavity size normal. Low normal left ventricular systolic function with no obvious regional wall motion abnormalities. Left ventricular ejection fraction is estimated at 55-60 %. Right Ventricle Right ventricle not well visualized but appears dilated. Right Atrium Right atrium not well visualized. Left Atrium Mild left atrial dilatation. Mitral Valve Structurally normal mitral valve. Mild mitral regurgitation. Aortic Valve Trileaflet aortic valve. Aortic valve sclerosis. No aortic valve stenosis or regurgitation. Tricuspid Valve Tricuspid valve not well visualized. Mild tricuspid regurgitation. Pulmonic Valve Pulmonic valve not well visualized. . Mild pulmonic regurgitation. Pericardium No pericardial effusion. Aorta Normal size aortic root and proximal ascending aorta. CONCLUSIONS Technically difficult study. Definity ECHO contrast used for improved visualization of the endocardial borders (inadequate visualization of two or more contiguous segments). Normal left ventricle size and systolic function Mild mitral, tricuspid and pulmonic regurgitation with mild pulmonary hypertension Previewed by: Dr. Kathia Saldaña MD (Electronically Signed) Final Date: 19 March 2023 07:26
[2023-03-19] MEDS ORDERED: POTASSIUM CHLORIDE ER 20 MEQ TAB.ER PO STA (07:37)
[2023-03-19] MEDS: ACETYLCYSTEINE 800 MG/4 ML VIAL INHALATION SCH ×4 (07:52→19:45)
[2023-03-19] MEDS: IPRATROPIUM-ALBUTEROL 3 ML NEB IH SCH ×4 (07:53→19:46)
[2023-03-19] MEDS: SYMBICORT 80-4.5 MCG INHALER INHALATION SCH ×2 (07:53→19:45)
[2023-03-19] MEDS ORDERED: ACETAMINOPHEN IV (For NPO) 1,000 MG in EMPTY BAG 1 BAG IVPB ONE (08:10)
[2023-03-19 08:15] LABS: Basophils % (A) 0 %; Eosinophils # (A) 0.2 k/uL (0-0.7); Eosinophils % (A) 2 %; HCT 36.6 % (34.0-46.0); HGB 12.9 gm/dL (11.4-16.0); Lymphocytes # (A) 1.8 k/uL (1.0-4.8); Lymphocytes % (A) 22 %; MCH 32.8 pg (25.0-35.0); MCHC 35.3 g/dL (31.0-37.0); MCV 92.9 fL (80.0-100.0); Mean Platelet Volume 10.2; Monocytes # (A) 0.7 k/uL (0-1.0); Monocytes % (A) 8 %; Neutrophils # (A) 5.5 k/uL (1.3-7.7); Neutrophils % (A) 65 %; RBC 3.94 m/uL (3.80-5.40); RDW 12.9 % (11.5-15.5); WBC 8.4 k/uL (3.8-10.6)
[2023-03-19 08:25] LABS: African American GFR (CKD) >90 (>60 ml/min/1.73 sqM); Anion Gap 10 mmol/L; Blood Urea Nitrogen 53 mg/dL (7-17); Calcium 8.2 mg/dL (8.4-10.2); Carbon Dioxide 20 mmol/L (22-30); Chloride 97 mmol/L (98-107); Glucose 142 mg/dL (74-99); Non-African American GFR(CKD) 80 (>60 ml/min/1.73 sqM); Sodium 127 mmol/L (137-145)
--- NOTE | 2023-03-19 08:27 | XR ---
EXAMINATION TYPE: XR chest 1V portable DATE OF EXAM: 03/19/2023 6:01 AM CLINICAL INDICATION:Female, 57 years old with history of post lobectomy; [facility] COMPARISON: 03/18/2023 TECHNIQUE: XR chest 1V portable Frontal view of the chest. FINDINGS: Lungs/Pleura: Large left pleural effusion with near complete opacification of the left hemithorax. No right pleural effusion, pneumothorax or focal consolidation. Pulmonary vascularity: Unremarkable. Heart/mediastinum: Cardiomediastinal silhouette is unremarkable. Musculoskeletal: No acute osseous pathology. Other findings: Subcutaneous gas along the left lateral chest wall likely secondary to surgery. IMPRESSION: Large left pleural effusion with associated atelectasis.
[2023-03-19] MEDS: GABAPENTIN 400 MG CAP PO SCH ×3 (09:09→20:13)
[2023-03-19] MEDS: ENOXAPARIN 40 MG/0.4 ML SYRINGE SQ SCH (09:09)
[2023-03-19 09:19] LABS: Platelet Count 95 k/uL (150-450)
[2023-03-19] MEDS: METOPROLOL TARTRATE 25 MG TAB PO SCH ×3 (09:33→21:05)
[2023-03-19] MEDS: MAGNESIUM OXIDE 400 MG TAB PO SCH ×2 (09:33→20:14)
[2023-03-19] MEDS: FOLIC ACID 1 MG TAB PO SCH (09:33)
[2023-03-19] MEDS: THIAMINE 100 MG TAB PO SCH (09:33)
[2023-03-19] MEDS: ATORVASTATIN 10 MG TAB PO SCH (09:33)
[2023-03-19] MEDS: NICOTINE 7MG/24HR PATCH TRANSDERM SCH (09:35)
[2023-03-19] MEDS: SODIUM CHLORIDE TAB 1 GM TAB PO SCH ×2 (09:45→20:14)
--- NOTE | 2023-03-19 10:01 | P.PN ---
Subjective Progress Note Date: 03/19/23 Principal diagnosis: Insulin dependent diabetes with poor glycemic control, hyperglycemia, hypomagnesemia, left upper lobe mass positive for well-differentiated adenocarcinoma. History of current tobacco dependence, COPD, daily EtOH use, hypertension, hyperlipidemia, stroke in 2016 with right-sided weakness, hepatitis B and C, bipolar depression, IV heroin use with last use August 2018. POD#3 Robotic assisted thoracoscopic left upper lobectomy with mediastinal lymph node dissection, fiberoptic bronchoscopy for evacuation of inspissated sputum. Paroxysmal atrial fibrillation, known potential complication of lung surgery. Hypotension although MAP stable, not requiring pressors. The patient was seen and examined this morning 03/19/2023 at her bedside in the intensive care unit. She is currently sitting up to the bedside recliner, is awake, alert, oriented 3 and is in no acute apparent distress. She is complaining of pain 8 out of 10 on the pain scale to her left chest and denies any complaints of shortness of breath at this time. No further episodes of atrial fibrillation reported, bedside telemetry showing sinus bradycardia heart rate 51 BPM. Oxygen saturations are 97% on 4 L nasal cannula and she is achieving 500 mL on her incentive spirometry with encouragement. Chest x-ray this morning is showing near complete opacification of the left hemithorax, she is scheduled for a bronchoscopy to be performed by Dr. Reynolds from pulmonary/critical care medicine this morning. She remains nothing by mouth in anticipation for the bronchoscopy. Surgical pathology results remain pending. Laboratory results reviewed, obese CBC count 8.4, hemoglobin 12.9, hematocrit 36.6, platelets 95, sodium 127, potassium 5.0, CO2 20, BUN 53 and creatinine 0.81. Objective - Vital Signs Vital signs: Vital Signs Temp 97.7 F 03/19/23 08:00 Pulse 52 L 03/19/23 08:11 Resp 22 03/19/23 08:00 BP 98/49 03/19/23 08:00 Pulse Ox 100 03/19/23 08:00 FiO2 60 03/17/23 22:50 Intake & Output 03/18/23 03/19/23 03/19/23 18:59 06:59 18:59 Intake Total 148.8 474 Output Total 650 700 Balance -501.2 -226 Weight 85.1 kg 85.3 kg Intake: IV 115.6 Amiodarone 360 mg In 99 Dextrose 5% in Water 200 ml @ 1 MG/MIN 33.333 mls/ hr IV .Q6H [facility] Rx#: [id number] Amiodarone 450 mg In 16.6 Dextrose 5% in Water 250 ml @ 0.5 MG/MIN 16.667 mls/hr IV .Q15H [facility] Rx#: [id number] Intake, IV Titration 33.2 Amount Amiodarone 450 mg In 33.2 Dextrose 5% in Water 250 ml @ 0.5 MG/MIN 16.667 mls/hr IV .Q15H [facility] Rx#: [id number] Oral 474 Output: Urine 650 350 Post Void Residual 350 Other: # Voids 1 # Bowel Movements 1 ABP, PAP, CO, CI - Last Documented Arterial Blood Pressure 99/38 - Exam CONSTITUTIONAL: Appears comfortable, cooperative, does complain of surgical type pain which is to be expected, currently rating her pain 8 out of 10 on the pain scale. RESPIRATORY: Lungs sounds diminished to her left lobe, essentially clear to the right lobes. Respirations symmetrical, nonlabored. Currently on 4 LPM NC with oxygen saturation 97%. Able to achieve 500-on incentive spirometry. Strong cough. CARDIOVASCULAR: Regular rhythm and bradycardic rate. S1 and S2 present, negative for S3, gallop or murmur. Bedside telemetry is showing sinus bradycardia heart rate 51 BPM. Palpable peripheral pulses bilaterally. No edema present. No calf pain or tenderness noted. SCDs present. GASTROINTESTINAL: Abdomen soft, nontender, and nondistended. Active bowel sounds present 4 quadrants. Tolerating diet. Passing flatus, last documented bowel movement 03/18/23. GENITOURINARY: Patient continues to void. INTEGUMENTARY: Skin is warm and dry, no clubbing or cyanosis is present. Left chest incisions clean, dry and approximated. NEUROLOGIC: Cranial nerves II through XII intact. No focal deficits. MUSKULOSKELETAL: Able to move all extremities, strength equal bilaterally. PSYCHIATRIC: Alert and oriented to person place and time, flat affect. - Labs CBC & Chem 7: 03/19/23 07:56 03/19/23 07:56 Labs: Abnormal Lab Results - Last 24 Hours (Table) 03/18/23 03/18/23 03/18/23 Range/Units 11:23 16:07 20:07 Sodium (137-145) mmol/L Chloride (98-107) mmol/L Carbon Dioxide (22-30) mmol/L BUN (7-17) mg/dL Glucose (74-99) mg/dL POC Glucose (mg/dL) 186 H 201 H 162 H (70-110) mg/dL Calcium (8.4-10.2) mg/dL 03/19/23 03/19/23 03/19/23 Range/Units 02:00 06:13 07:56 Sodium 127 L (137-145) mmol/L Chloride 97 L (98-107) mmol/L Carbon Dioxide 20 L (22-30) mmol/L BUN 53 H (7-17) mg/dL Glucose 142 H (74-99) mg/dL POC Glucose (mg/dL) 180 H 122 H (70-110) mg/dL Calcium 8.2 L (8.4-10.2) mg/dL - Imaging and Cardiology Chest x-ray: report reviewed, image reviewed Assessment and Plan Assessment: Insulin dependent diabetes with poor glycemic control, hyperglycemia, A1c 9.8% Hypomagnesemia Left upper lobe mass positive for well-differentiated adenocarcinoma, status post left upper lobectomy Current tobacco dependence Moderate COPD, preoperative FEV1 54% of predicted, DLCO 36% of predicted Current daily EtOH use Hypertension, currently hypotensive Hyperlipidemia Stroke in 2016 with right-sided weakness Hepatitis B and C Bipolar depression History of IV heroin use with last use August 2018 Paroxysmal atrial fibrillation, currently sinus bradycardia Plan: Continue metoprolol tartrate with hold parameters. No anticoagulation due to recent surgery. Amiodarone management per cardiology recommendations. Continue to improve blood glucose control, insulin adjustments made by primary service. Patient currently nothing by mouth in anticipation for bronchoscopy today. Increase activity, ambulate as tolerated. Patient should be out of bed for all meals, she should be out of bed the majority of the day and use the bed for sleeping at nighttime only Wean oxygen as tolerated. Encourage incentive spirometry 10x every hour while awake. Bronchodilators per pulmonology. Monitor for alcohol withdrawal, thiamine and folic acid ordered, magnesium replaced. Continue Nicotine patch. Smoking cessation counseling and education reinforced. Continue Tylenol and Toradol for pain control. Medical management of other comorbidities per internal medicine Time with Patient: Less than 30
[2023-03-19 11:05] LABS: Glucose,Whole Blood 142 mg/dL (70-110)
--- NOTE | 2023-03-19 11:24 | P.PN ---
Subjective Progress Note Date: 03/19/23 Principal diagnosis: Lung cancer. Pulmonary consult dated 03/15/2023. This is a 57-year-old female who was admitted for possible left upper lobectomy, by Dr. June. Initially, the patient had a significant elevation in her blood, and the surgery was delayed. It was finally done today. He did call me after the procedure. In December of this year, my partner, did a flexible bronchoscopy, robotically-assisted bronchoscopy, and biopsies, the lesion, and the left upper lobe. The biopsies were positive for well-differentiated pulmonary adenocarcinoma. Currently, the patient's resting comfortably in the intensive care unit. The patient's on 4 L of oxygen, and getting saline at 50 mL an hour. Again as I mentioned above, I did speak to the surgeon about this patient. He was concerned that she may need bronchoscopy over the next few days, for left lung collapse. Apparently her airways were full of mucus. Currently labs data only includes a glucose of 260. Chest x-ray shows a left- sided consolidation and a small effusion, with no sizable pneumothorax. Chest tube is noted. Labs from yesterday include a white count of 5.9, hemoglobin 13.4, hematocrit 39.7, and a platelet count of 96,000. Sodium 137, potassium 4.3, chlorides 102, CO2 27, UN 15, and creatinine 0.7. N-terminal proBNP was 166. Progress note dated 03/16/2023. 57-year-old female postop day #1, status post robotically assisted thoracoscopic left upper lobectomy for lung cancer. The patient is seen today in room 257. She is on 2 L of oxygen. She's getting saline at 50 mL an hour. According to the nurses, the patient had an uneventful night. The patient's resting comfortably in bed. Again, she is on 2 L, by nasal cannula. White count 11.2, hemoglobin 13.4, and platelet count 105,000. Sodium 135, potassium 3.9, chlorides 99, CO2 28, BUN 14, creatinine 0.49. Magnesium 1.4. Chest x-rays shows some volume loss in the left lung, with some left-sided consolidation, and a small effusion. Progress note dated 03/17/2023. 57-year-old female, postop day #2, status post robotically assisted thoracoscopic left upper lobectomy for lung cancer. The patient is seen today in room 362. She's currently on room air, but saturations are only 87%. I asked respiratory therapy to place her on oxygen at 2 L. The left-sided chest tube had been removed. She's getting saline at 10 mL an hour. White count is 10.7, hemoglobin 13.1, hematocrit 40, and platelet count 108,000. Sodium 127, potassium 4.2, chlorides 94, CO2 25, BUN 31, and creatinine 0.71. Calcium is 8.2. Magnesium is 2.2. Chest x-ray from today shows postoperative changes, with stable left-sided consolidation and small pleural effusion. No pneumothorax is seen. Progress note dated 03/18/2023. 57-year-old female, postoperative day #3, status post robotically assisted thoracoscopic left upper lobectomy for early stage lung cancer. The patient was outside on the general floor, but came back into the intensive care unit, room 251, because of atrial fibrillation with rapid ventricular response. Currently, she is seen in the ICU, and is currently on 7 L high flow oxygen, and amiodarone at 1 mg/m. We did make her nothing by mouth after midnight, for possible bronchoscopy tomorrow. Her chest x-ray shows partial collapse of the left lung. White count is 10.7, hemoglobin 0.9, hematocrit 38.6, with a platelet count of 141,000. Sodium 127, potassium 4.2, chlorides 94, CO2 22, BUN 50, and creatinine 0.85. Glucose 223. Albumin is 2.9. Chest x-ray shows increasing left-sided consolidation and pleural effusion, with volume loss. There may be a tiny left apical pneumothorax. Progress note dated 03/19/2023. 57-year-old female postop day #4, status post robotically assisted thoracoscopic left upper lobectomy for early stage lung cancer. The patient was out on the general medical floor, but came back to the intensive care unit, because of atrial fibrillation/RVR. The patient's most recent chest x-ray shows near complete collapse of the left lung, so, the patient will undergo bronchoscopy s ometime today. She's currently seen in the intensive care unit, room 251. The patient is on 4 L of oxygen. She's currently on amiodarone at 0.5 mg/m. The bronchoscopy was done at the bedside, with the aid of anesthesia. White count is 8.4, hemoglobin 12.9, hematocrit 36.6, and lately count 95,000. Sodium 127, potassium 5, chlorides 97, CO2 20, BUN 53, creatinine 0.81. Calcium is 8.2. Chest x-ray shows near complete opacification of the left lung. Objective - Vital Signs Vital signs: Vital Signs Temp 97.7 F 03/19/23 08:00 Pulse 52 L 03/19/23 08:11 Resp 22 03/19/23 08:00 BP 98/49 03/19/23 08:00 Pulse Ox 100 03/19/23 08:00 FiO2 60 03/17/23 22:50 Intake & Output 03/18/23 03/19/23 03/19/23 18:59 06:59 18:59 Intake Total 148.8 474 Output Total 650 700 Balance -501.2 -226 Weight 85.1 kg 85.3 kg Intake: IV 115.6 Amiodarone 360 mg In 99 Dextrose 5% in Water 200 ml @ 1 MG/MIN 33.333 mls/ hr IV .Q6H [facility] Rx#: [id number] Amiodarone 450 mg In 16.6 Dextrose 5% in Water 250 ml @ 0.5 MG/MIN 16.667 mls/hr IV .Q15H [facility] Rx#: [id number] Intake, IV Titration 33.2 Amount Amiodarone 450 mg In 33.2 Dextrose 5% in Water 250 ml @ 0.5 MG/MIN 16.667 mls/hr IV .Q15H [facility] Rx#: [id number] Oral 474 Output: Urine 650 350 Post Void Residual 350 Other: # Voids 1 # Bowel Movements 1 ABP, PAP, CO, CI - Last Documented Arterial Blood Pressure 99/38 - Exam No acute distress, oriented 3. Currently on 4 L high flow nasal cannula. HEENT examination is grossly unremarkable. Mucous membranes are moist. No oral lesions. Neck supple. Full range of motion. No adenopathy thyromegaly or neck vein distention. Cardiovascular examination reveals regular rhythm rate. S1-S2 normal. No S3 or S4. No discernible murmur noted. Heart rate 52 bpm. Lungs reveal diminished bilateral breath sounds, left greater than right. 4 L saturation is 99 %. Abdomen soft bowel sounds are heard. No masses or tenderness. Extremities are intact. No cyanosis clubbing or edema. Skin is without rash or lesion. Neurologic examination is brief but nonfocal. - Labs CBC & Chem 7: 03/19/23 07:56 03/19/23 07:56 Labs: Abnormal Lab Results - Last 24 Hours (Table) 03/18/23 03/18/23 03/18/23 Range/Units 11:23 16:07 20:07 Plt Count (150-450) k/uL Sodium (137-145) mmol/L Chloride (98-107) mmol/L Carbon Dioxide (22-30) mmol/L BUN (7-17) mg/dL Glucose (74-99) mg/dL POC Glucose (mg/dL) 186 H 201 H 162 H (70-110) mg/dL Calcium (8.4-10.2) mg/dL 03/19/23 03/19/23 03/19/23 Range/Units 02:00 06:13 07:56 Plt Count 95 L (150-450) k/uL Sodium (137-145) mmol/L Chloride (98-107) mmol/L Carbon Dioxide (22-30) mmol/L BUN (7-17) mg/dL Glucose (74-99) mg/dL POC Glucose (mg/dL) 180 H 122 H (70-110) mg/dL Calcium (8.4-10.2) mg/dL 03/19/23 03/19/23 Range/Units 07:56 11:04 Plt Count (150-450) k/uL Sodium 127 L (137-145) mmol/L Chloride 97 L (98-107) mmol/L Carbon Dioxide 20 L (22-30) mmol/L BUN 53 H (7-17) mg/dL Glucose 142 H (74-99) mg/dL POC Glucose (mg/dL) 142 H (70-110) mg/dL Calcium 8.2 L (8.4-10.2) mg/dL Assessment and Plan Assessment: Postop day #4, status post robotically assisted thoracoscopic left upper lobectomy with mediastinal lymph node dissection, for early stage NSCLC. Intraoperative bronchoscopy, for airway secretion control. History of chronic obstructive pulmonary disease. History of CVA. History of diabetes mellitus. History of hypertension. History of hyperlipidemia. History of alcohol abuse and heroin abuse. History of hepatitis B and C. Plan: Plan dated 03/15/2023. Dr. June, was kind enough call me about this patient, and give me a heads up so to speak. The patient required intraoperative bronchoscopy, for airway secretion. He suggested that she may need follow-up bronchoscopy, throughout her hospitalization. The patient was seen in the intensive care unit, room 257. The patient has a left-sided chest tube. She continues on oxygen at 4 L. She's getting saline at 50 mL an hour. Labs, x-rays, and medications are reviewed. We spoke to the nurse about this patient. Additional recommendations and suggestions are forthcoming. Prognosis is guarded. Plan dated 03/16/2023. The patient is seen today in room 257. He's postop day #1. The patient's currently on 2 L. She's getting saline at 50 mL an hour. The patient received some narcotic the night, for pain. It did seem to settle her down. She has a left-sided chest tube. Labs, x-rays, medications are all reviewed. We will continue to follow the patient, make recommendations along the way. We do recommend hourly use of the incentive spirometer. The patient has been downgraded by cardiothoracic surgery Plan dated 03/17/2023. The patient is seen today in room 362. She's on room air, but saturations are only 87%. I've asked respiratory to apply oxygen by nasal cannula, at 2 L. The patient currently is on saline at 10 mL an hour. Her chest x-ray stable. Labs, x-rays, and medications are reviewed. We will encourage the patient continue to deep breathe, cough, and clear secretions, and use the incentive spirometer, every hour while awake. The patient is stable, but prognosis is guarded. Plan dated 03/18/2023. The patient is much more hypoxemic than she was yesterday. The patient's curre ntly on between 5-7 L oxygen, by nasal cannula. In addition, the patient developed atrial fibrillation with RVR, and was transferred back to the intensive care unit. She's currently on amiodarone at 1 mg/m. Labs, x-rays, and medications are reviewed. Chest x-rays a bit worse and it has been. She may require bronchoscopy tomorrow. Labs, x-rays, and medications are reviewed. We will continue to follow the patient, and make recommendations along the way. Prognosis is guarded. Plan dated 03/19/2023. The patient's currently on 4 L of oxygen. Her chest x-rays reviewed, and it is decided, to do bronchoscopy bedside, with the aid of anesthesia today. The patient continues on amiodarone at 0.5 mg/m, for atrial fibrillation and RVR. Labs, x-rays, and medications are reviewed. The patient's overall prognosis remains guarded. The patient is postoperative day #4, status post robotically assisted thoracoscopic left upper lobectomy for early stage lung cancer. Prognosis is guarded. Medications are reviewed. We will continue to follow the patient, and make recommendations along the way. Time with Patient: Greater than 30
[2023-03-19] MEDS ORDERED: KETAMINE HCL IN 0.9 % NACL 50 MG/5 ML SYRINGE ONE (13:45)
[2023-03-19] MEDS ORDERED: LIDOCAINE 1% INJ 10MG/ML (20 ML MDV) ONE (13:45)
[2023-03-19] MEDS ORDERED: PROPOFOL 10 MG/ML 20 ML VIAL IV ONE (13:45)
[2023-03-19] MEDS ORDERED: MIDAZOLAM 2 MG/2 ML VIAL ONE (13:45)
--- NOTE | 2023-03-19 16:00 | P.PN ---
Subjective Progress Note Date: 03/19/23 57-year-old female came in for elective pulmonary lobectomy for lung cancer found to have highly elevated blood sugars of 500 because of which patient was admitted patient last hemoglobin A1c was more than a year ago at that time it was 7.5 it appears patient may be noncompliant. Patient admits to drinking vodka with watermelon juice last night. Patient does have history of COPD continues to smoke 5 cigarettes per day is bit hypoxic. Chest x-ray showed some interstitial prominence although clinically patient doesn't appear to be in CHF patient does take 20 mg of Lasix at home patient has chronic venous stasis dermatosis of both legs and will be dermatitis. Patient is on Trulicity, 20 units of long-acting insulin along with metformin at home for diabetes with us. Patient blood sugars is presently about 300. Patient had a chest xray showing 1.2 cm let upper lobe pulmonary mass. She will be going for lung resection on Wednesday. --- postop day #4, status post robotically assisted thoracoscopic left upper lobectomy for early stage lung cancer. The patient was out on the general medical floor, but came back to the intensive care unit, because of atrial fibrillation/RVR. The patient's most recent chest x-ray shows near complete collapse of the left lung, so, the patient will undergo bronchoscopy sometime today. She's currently seen in the intensive care unit, room 251. The patient is on 4 L of oxygen. She's currently on amiodarone at 0.5 mg/m. The bronchoscopy was done at the bedside, with the aid of anesthesia. White count is 8.4, hemoglobin 12.9, hematocrit 36.6, and lately count 95,000. Sodium 127, potassium 5, chlorides 97, CO2 20, BUN 53, creatinine 0.81. Calcium is 8.2. Chest x-ray shows near complete opacification of the left lung. Objective - Vital Signs Vital signs: Vital Signs Temp 97.7 F 03/19/23 08:00 Pulse 52 L 03/19/23 08:11 Resp 22 03/19/23 08:00 BP 98/49 03/19/23 08:00 Pulse Ox 100 03/19/23 08:00 FiO2 60 03/17/23 22:50 Intake & Output 03/18/23 03/19/23 03/19/23 18:59 06:59 18:59 Intake Total 148.8 474 Output Total 650 700 Balance -501.2 -226 Weight 85.1 kg 85.3 kg Intake: IV 115.6 Amiodarone 360 mg In 99 Dextrose 5% in Water 200 ml @ 1 MG/MIN 33.333 mls/ hr IV .Q6H [facility] Rx#: [id number] Amiodarone 450 mg In 16.6 Dextrose 5% in Water 250 ml @ 0.5 MG/MIN 16.667 mls/hr IV .Q15H [facility] Rx#: [id number] Intake, IV Titration 33.2 Amount Amiodarone 450 mg In 33.2 Dextrose 5% in Water 250 ml @ 0.5 MG/MIN 16.667 mls/hr IV .Q15H [facility] Rx#: [id number] Oral 474 Output: Urine 650 350 Post Void Residual 350 Other: # Voids 1 # Bowel Movements 1 ABP, PAP, CO, CI - Last Documented Arterial Blood Pressure 99/38 - Exam GENERAL: The patient is alert and oriented x3, not in any acute distress. Well developed, well nourished. HEENT: Pupils are round and equally reacting to light. EOMI. No scleral icterus. No conjunctival pallor. Normocephalic, atraumatic. No pharyngeal erythema. No thyromegaly. CARDIOVASCULAR: S1 and S2 present. No murmurs, rubs, or gallops. -PULMONARY: Chest is clear to auscultation, no wheezing , no crackles. chest tube in place ABDOMEN: Soft, nontender, nondistended, normoactive bowel sounds. No palpable organomegaly. MUSCULOSKELETAL: No joint swelling or deformity. EXTREMITIES: No cyanosis, clubbing, or pedal edema. NEUROLOGICAL: Gross neurological examination did not reveal any focal deficits. SKIN: No rashes. no petechiae. - Labs CBC & Chem 7: 03/19/23 07:56 03/19/23 07:56 Labs: Abnormal Lab Results - Last 24 Hours (Table) 03/18/23 03/18/23 03/19/23 Range/Units 16:07 20:07 02:00 Plt Count (150-450) k/uL Sodium (137-145) mmol/L Chloride (98-107) mmol/L Carbon Dioxide (22-30) mmol/L BUN (7-17) mg/dL Glucose (74-99) mg/dL POC Glucose (mg/dL) 201 H 162 H 180 H (70-110) mg/dL Calcium (8.4-10.2) mg/dL 03/19/23 03/19/23 03/19/23 Range/Units 06:13 07:56 07:56 Plt Count 95 L (150-450) k/uL Sodium 127 L (137-145) mmol/L Chloride 97 L (98-107) mmol/L Carbon Dioxide 20 L (22-30) mmol/L BUN 53 H (7-17) mg/dL Glucose 142 H (74-99) mg/dL POC Glucose (mg/dL) 122 H (70-110) mg/dL Calcium 8.2 L (8.4-10.2) mg/dL 03/19/23 Range/Units 11:04 Plt Count (150-450) k/uL Sodium (137-145) mmol/L Chloride (98-107) mmol/L Carbon Dioxide (22-30) mmol/L BUN (7-17) mg/dL Glucose (74-99) mg/dL POC Glucose (mg/dL) 142 H (70-110) mg/dL Calcium (8.4-10.2) mg/dL Assessment and Plan Assessment: -Lung cancer was recently diagnosed with non small cell and is now status post upper lobectomy with cardiothoracic surgery following closely.. Patient monitored in the ICU postoperatively. -Diabetes mellitus with hyperglycemia -Hypotension, improved -Hypovolemic hypernatremia -Mild hypoxia probably secondary to emphysema patient is presently not in COPD exacerbation, mention of interstitial prominence, BNP was 166 patient is on room air. -COPD without any acute exacerbation -hyperlipidemia -Hypertension -hypervascular disease -continued nicotine use: Counseling was provided Plan: Continue with amiodarone for cardiothoracic surgery team Change insulin to Levemir 30 units daily and NovoLog 12 units with meals with insulin sliding scale and close monitoring of sugar. Chest tube was removed by cardiothoracic surgery team Pulmonary consult on the case Patient started on sodium tablets We recommend fluid restriction, currently 1500 per day Labs and medication were reviewed.. Continue same treatment. Continue with symptomatic treatment. Resume home medication. Monitor labs and vitals. DVT a nd GI prophylaxis. Further recommendations as per clinical course of the patient DVT prophylaxis: Subcutaneous Lovenox GI Prophylaxis: Pepcid PT/OT: Home health care Prognosis is guarded
[2023-03-19] MEDS ORDERED: DOCUSATE 100 MG CAP PO PRN (17:06)
[2023-03-19] MEDS ORDERED: polyethylene glycoL 3350 17 GM POWD.PACK PO PRN (17:07)
[2023-03-19 17:11] LABS: Glucose,Whole Blood 136 mg/dL (70-110)
[2023-03-19 19:46] LABS: Glucose,Whole Blood 196 mg/dL (70-110)
--- NOTE | 2023-03-19 21:11 | PCN ---
PROCEDURE NOTE PROCEDURES: Bronchoscopy, airway examination, therapeutic lavage, and removal of airway secretions. PREOPERATIVE DIAGNOSES: Left lung collapse, left lung opacification, status post left upper lobectomy. POSTOPERATIVE DIAGNOSES: Left lung collapse, left lung opacification, status post left upper lobectomy. OPERATORS: 1. Dr. Reynolds. 2. Dr. Barba. DESCRIPTION OF PROCEDURE: There was informed consent and universal timeout. The patient's procedure took place in room 251 in the intensive care unit. The patient was being fully monitored and receiving oxygen during the procedure. Anesthesia Services including Dr. Otto provided general anesthesia. After the patient was adequately sedated, the bronchoscope was inserted through the right nostril. It passed through the right nasopharynx into the oropharynx. The hypopharynx was identified. It was topicalized. The hypopharyngeal structures including anterior commissure, true cords, false cords, arytenoids, piriform sinuses right and left, vallecula, and epiglottis all appeared relatively normal. Next, after topicalization of the glottic opening, the bronchoscope was pushed through the glottic opening into the trachea. There were thick mucoid secretions noted throughout the trachea. They were suctioned with some difficulty with the aid of saline lavage. The tracheal nickie was sharp. The right upper lobe and its 3 segments, right middle lobe and its 2 segments, and the right lower lobe and its 5 segments all appeared relatively normal. There was some degree of mucosal erythema and hyperemia. There were some secretions noted on the right side. They suctioned easily. There was no discrete mass or tumor. On the left side, there were thick mucoid secretions impacting and completely obstructing the left mainstem. They were suctioned with some difficulty with the aid of saline. Next, the bronchoscope was used to evaluate the left lower lobe. The 4 segments of the left lower lobe were found to be relatively normal save for diffuse bronchitis. There were thick secretions noted throughout, those secretions were suctioned with the aid of saline lavage. The patient tolerated the procedure well. The area of the left upper lobectomy was noted. It was a blind stump. Minimal secretions were noted in this area. After all the secretions were suctioned, the bronchoscope was withdrawn. The patient tolerated the procedure well. There was no immediate complication. MMODL / IJN: [id number] /
[2023-03-19] MEDS ORDERED: LORazepam 0.5 MG TAB PO STA (21:42)
[2023-03-20] MEDS: ACETAMINOPHEN TAB 325 MG TAB PO PRN ×5 (00:46→21:11)
[2023-03-20 01:31] LABS: Glucose,Whole Blood 176 mg/dL (70-110)
[2023-03-20] MEDS: INSULIN ASPART (NovoLOG) 100 UNIT/ML VIAL SQ SCH ×8 (01:35→21:09)
[2023-03-20] MEDS: KETOROLAC 15 MG/ML 1 ML VIAL IVP SCH ×3 (05:24→18:20)
[2023-03-20 05:42] LABS: Basophils # (A) 0.1 k/uL (0-0.2); Basophils % (A) 1 %; Eosinophils # (A) 0.2 k/uL (0-0.7); Eosinophils % (A) 2 %; HCT 39.8 % (34.0-46.0); HGB 13.2 gm/dL (11.4-16.0); Lymphocytes # (A) 1.9 k/uL (1.0-4.8); Lymphocytes % (A) 18 %; MCH 31.6 pg (25.0-35.0); MCHC 33.1 g/dL (31.0-37.0); MCV 95.4 fL (80.0-100.0); Mean Platelet Volume 9.1; Monocytes # (A) 0.6 k/uL (0-1.0); Monocytes % (A) 6 %; Neutrophils # (A) 7.6 k/uL (1.3-7.7); Neutrophils % (A) 73 %; RBC 4.18 m/uL (3.80-5.40); RDW 13.6 % (11.5-15.5); WBC 10.5 k/uL (3.8-10.6)
[2023-03-20 05:45] LABS: Platelet Count 196 k/uL (150-450)
[2023-03-20 06:33] LABS: African American GFR (CKD) 88 (>60 ml/min/1.73 sqM); Anion Gap 11 mmol/L; Blood Urea Nitrogen 54 mg/dL (7-17); Calcium 8.4 mg/dL (8.4-10.2); Carbon Dioxide 18 mmol/L (22-30); Chloride 98 mmol/L (98-107); Glucose 176 mg/dL (74-99); Non-African American GFR(CKD) 76 (>60 ml/min/1.73 sqM); Potassium 5.3 mmol/L (3.5-5.1); Sodium 127 mmol/L (137-145)
[2023-03-20 06:42] LABS: Glucose,Whole Blood 220 mg/dL (70-110)
[2023-03-20] MEDS: PANTOPRAZOLE 40 MG TABLET PO SCH (07:06)
[2023-03-20] MEDS: INSULIN DETEMIR (LEVEMIR) 100 UNIT/ML SYR SQ SCH (07:06)
[2023-03-20] MEDS: SYMBICORT 80-4.5 MCG INHALER INHALATION SCH ×2 (07:29→19:38)
[2023-03-20] MEDS: IPRATROPIUM-ALBUTEROL 3 ML NEB IH SCH ×4 (07:29→19:37)
[2023-03-20] MEDS: ACETYLCYSTEINE 800 MG/4 ML VIAL INHALATION SCH ×4 (07:30→19:38)
--- NOTE | 2023-03-20 07:31 | XR ---
EXAMINATION TYPE: XR chest 2V DATE OF EXAM: 03/20/2023 5:16 AM CLINICAL INDICATION:Female, 57 years old with history of post op left upper lobectomy; [facility] COMPARISON: Chest radiograph from one day prior. TECHNIQUE: XR chest 2V Frontal and lateral views of the chest. FINDINGS: Lungs/Pleura: Large left pleural effusion with improved aeration of the left lung. There is no eviden ce of right focal consolidation, or pneumothorax. Blunting of the right costophrenic angle. Pulmonary vascularity: Unremarkable. Heart/mediastinum: Cardiomediastinal silhouette is unremarkable. Musculoskeletal: No acute osseous pathology. Other findings: None IMPRESSION: Improved aeration of the left upper lung with persistent large left pleural effusion. Trace right ple ural effusion.
--- NOTE | 2023-03-20 07:44 | PN ---
PROGRESS NOTE SUBJECTIVE: Mrs. De is 57 years of age. She underwent left upper lobectomy. She is going for bronchoscopy today. She was in atrial fibrillation, received IV amiodarone. She is currently in sinus rhythm. This episode of atrial fib happened after her upper lobectomy. I am recommending that we can discontinue amiodarone drip, leave her on the beta ana maría. With regard to long-term anticoagulation, I do not believe it is absolutely necessary based on the clinical picture, but at least for a short term, I would recommend Eliquis 5 mg b.i.d. when okayed by the thoracic/cardiac surgeon. OBJECTIVE: VITALS: Stable. HEART: S1 and S2 heard normally. LUNGS: Revealed decent air entry. ABDOMEN: Unchanged. EXTREMITIES: Lower extremity exam unchanged. PLAN: I will continue to see the patient as needed. MMRAJAN / MEDHATN: [id number] /
[2023-03-20] MEDS: THIAMINE 100 MG TAB PO SCH (09:27)
[2023-03-20] MEDS: METOPROLOL TARTRATE 25 MG TAB PO SCH (09:27)
[2023-03-20] MEDS: GABAPENTIN 400 MG CAP PO SCH ×3 (09:27→21:08)
[2023-03-20] MEDS: FOLIC ACID 1 MG TAB PO SCH (09:27)
[2023-03-20] MEDS: SODIUM CHLORIDE TAB 1 GM TAB PO SCH ×2 (09:27→21:08)
[2023-03-20] MEDS: NICOTINE 7MG/24HR PATCH TRANSDERM SCH ×2 (09:27→14:40)
[2023-03-20] MEDS: ATORVASTATIN 10 MG TAB PO SCH (09:27)
[2023-03-20] MEDS: MAGNESIUM OXIDE 400 MG TAB PO SCH ×2 (09:27→21:08)
[2023-03-20] MEDS: ENOXAPARIN 40 MG/0.4 ML SYRINGE SQ SCH (09:27)
--- NOTE | 2023-03-20 10:22 | P.PN ---
Subjective Progress Note Date: 03/20/23 Principal diagnosis: Insulin dependent diabetes with poor glycemic control, hyperglycemia, hypomagnesemia, left upper lobe mass positive for well-differentiated adenocarcinoma. History of current tobacco dependence, COPD, daily EtOH use, hypertension, hyperlipidemia, stroke in 2016 with right-sided weakness, hepatitis B and C, bipolar depression, IV heroin use with last use August 2018. POD#5 Robotic assisted thoracoscopic left upper lobectomy with mediastinal lymph node dissection, fiberoptic bronchoscopy for evacuation of inspissated sputum. Paroxysmal atrial fibrillation, known potential complication of lung surgery. Hypotension although MAP stable, not requiring pressors. The patient was seen and examined in follow-up today 03/20/2023 at her bedside in the intensive care unit. She is currently sitting up to bedside chair, is awake, alert, oriented 3 and is in no acute distress. Denies any complaints of shortness of breath or pain at this time and states that she feels much improved today than she did yesterday. Oxygen saturation are 95% on 2 L nasal cannula. She underwent a bronchoscopy performed by Dr. Reynolds from pulmonary medicine yesterday with thick mucoid secretions suctioned. The patient reports she has been up ambulating in the intensive care unit hallway with standby assistance from nursing staff. She is achieving 750 mL on her incentive spirometry this morning with encouragement. Bedside telemetry showing normal sinus bradycardia heart rate 53 BPM. Laboratory and chest x-ray results reviewed. Objective - Vital Signs Vital signs: Vital Signs Temp 97.8 F 03/20/23 04:00 Pulse 62 03/20/23 07:43 Resp 18 03/20/23 04:00 BP 114/51 03/20/23 04:00 Pulse Ox 97 03/20/23 07:31 FiO2 60 03/17/23 22:50 Intake & Output 03/19/23 03/20/23 03/20/23 18:59 06:59 18:59 Intake Total 400 674 Output Total 300 Balance 100 674 Weight 86.5 kg Intake: Oral 400 674 Output: Urine 300 Other: Voiding Method Indwelling Catheter # Voids 2 # Bowel Movements 2 ABP, PAP, CO, CI - Last Documented Arterial Blood Pressure 99/38 - Exam CONSTITUTIONAL: Appears comfortable, and cooperative. RESPIRATORY: Lungs sounds diminished to her left lower lobe, essentially clear to the right lobes. Respirations symmetrical, nonlabored. Currently on 2 LPM NC with oxygen saturation 95%. Able to achieve 750 on her incentive spirometry. Strong cough. CARDIOVASCULAR: Regular rhythm and bradycardic rate. S1 and S2 present, negative for S3, gallop or murmur. Bedside telemetry is showing sinus bradycardia heart rate 53 BPM. Palpable peripheral pulses bilaterally. No edema present. No calf pain or tenderness noted. SCDs present. GASTROINTESTINAL: Abdomen soft, nontender, and nondistended. Active bowel sounds present 4 quadrants. Tolerating diet. Passing flatus, last documented bowel movement 03/18/23. GENITOURINARY: Patient continues to void. INTEGUMENTARY: Skin is warm and dry, no clubbing or cyanosis is present. Left chest incisions clean, dry and approximated. NEUROLOGIC: Cranial nerves II through XII intact. No focal deficits. MUSKULOSKELETAL: Able to move all extremities, strength equal bilaterally. PSYCHIATRIC: Alert and oriented to person place and time, flat affect. - Allied health notes Allied health notes reviewed: nursing - Labs CBC & Chem 7: 03/20/23 05:27 03/20/23 05:27 Labs: Abnormal Lab Results - Last 24 Hours (Table) 03/19/23 03/19/23 03/19/23 Range/Units 11:04 17:10 19:45 Sodium (137-145) mmol/L Potassium (3.5-5.1) mmol/L Carbon Dioxide (22-30) mmol/L BUN (7-17) mg/dL Glucose (74-99) mg/dL POC Glucose (mg/dL) 142 H 136 H 196 H (70-110) mg/dL 03/20/23 03/20/23 03/20/23 Range/Units 01:29 05:27 06:40 Sodium 127 L (137-145) mmol/L Potassium 5.3 H (3.5-5.1) mmol/L Carbon Dioxide 18 L (22-30) mmol/L BUN 54 H (7-17) mg/dL Glucose 176 H (74-99) mg/dL POC Glucose (mg/dL) 176 H 220 H (70-110) mg/dL - Imaging and Cardiology Chest x-ray: report reviewed, image reviewed Assessment and Plan Assessment: Insulin dependent diabetes with poor glycemic control, hyperglycemia, A1c 9.8% Hypomagnesemia Left upper lobe mass positive for well-differentiated adenocarcinoma, status post left upper lobectomy Current tobacco dependence Moderate COPD, preoperative FEV1 54% of predicted, DLCO 36% of predicted Current daily EtOH use Hypertension, currently hypotensive Hyperlipidemia Stroke in 2016 with right-sided weakness Hepatitis B and C Bipolar depression History of IV heroin use 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 Reynolds Plan: Decrease metoprolol tartrate 12.5 mg by mouth twice a day with hold parameters. No anticoagulation due to recent surgery. Continue to improve blood glucose control, insulin adjustments made by primary service. Increase activity, ambulate as tolerated. Patient should be out of bed for all meals, she should be out of bed the majority of the day and use the bed for sleeping at nighttime only Wean oxygen as tolerated. Encourage incentive spirometry 10x every hour while awake. Bronchodilators per pulmonology. Monitor for alcohol withdrawal, thiamine and folic acid ordered, magnesium replaced. Continue Nicotine patch. Smoking cessation counseling and education reinforced. Continue Tylenol and Toradol for pain control. Continue to monitor daily chest x-rays and labs. Computed tomography scan of the chest without contrast today. Nothing by mouth after midnight for possible bronchoscopy tomorrow. Medical management of other comorbidities per internal medicine Time with Patient: Greater than 30
--- NOTE | 2023-03-20 10:36 | P.PN ---
Subjective Progress Note Date: 03/20/23 Principal diagnosis: Lung cancer. Pulmonary consult dated 03/15/2023. This is a 57-year-old female who was admitted for possible left upper lobectomy, by Dr. June. Initially, the patient had a significant elevation in her blood, and the surgery was delayed. It was finally done today. He did call me after the procedure. In December of this year, my partner, did a flexible bronchoscopy, robotically-assisted bronchoscopy, and biopsies, the lesion, and the left upper lobe. The biopsies were positive for well-differentiated pulmonary adenocarcinoma. Currently, the patient's resting comfortably in the intensive care unit. The patient's on 4 L of oxygen, and getting saline at 50 mL an hour. Again as I mentioned above, I did speak to the surgeon about this patient. He was concerned that she may need bronchoscopy over the next few days, for left lung collapse. Apparently her airways were full of mucus. Currently labs data only includes a glucose of 260. Chest x-ray shows a left- sided consolidation and a small effusion, with no sizable pneumothorax. Chest tube is noted. Labs from yesterday include a white count of 5.9, hemoglobin 13.4, hematocrit 39.7, and a platelet count of 96,000. Sodium 137, potassium 4.3, chlorides 102, CO2 27, UN 15, and creatinine 0.7. N-terminal proBNP was 166. Progress note dated 03/16/2023. 57-year-old female postop day #1, status post robotically assisted thoracoscopic left upper lobectomy for lung cancer. The patient is seen today in room 257. She is on 2 L of oxygen. She's getting saline at 50 mL an hour. According to the nurses, the patient had an uneventful night. The patient's resting comfortably in bed. Again, she is on 2 L, by nasal cannula. White count 11.2, hemoglobin 13.4, and platelet count 105,000. Sodium 135, potassium 3.9, chlorides 99, CO2 28, BUN 14, creatinine 0.49. Magnesium 1.4. Chest x-rays shows some volume loss in the left lung, with some left-sided consolidation, and a small effusion. Progress note dated 03/17/2023. 57-year-old female, postop day #2, status post robotically assisted thoracoscopic left upper lobectomy for lung cancer. The patient is seen today in room 362. She's currently on room air, but saturations are only 87%. I asked respiratory therapy to place her on oxygen at 2 L. The left-sided chest tube had been removed. She's getting saline at 10 mL an hour. White count is 10.7, hemoglobin 13.1, hematocrit 40, and platelet count 108,000. Sodium 127, potassium 4.2, chlorides 94, CO2 25, BUN 31, and creatinine 0.71. Calcium is 8.2. Magnesium is 2.2. Chest x-ray from today shows postoperative changes, with stable left-sided consolidation and small pleural effusion. No pneumothorax is seen. Progress note dated 03/18/2023. 57-year-old female, postoperative day #3, status post robotically assisted thoracoscopic left upper lobectomy for early stage lung cancer. The patient was outside on the general floor, but came back into the intensive care unit, room 251, because of atrial fibrillation with rapid ventricular response. Currently, she is seen in the ICU, and is currently on 7 L high flow oxygen, and amiodarone at 1 mg/m. We did make her nothing by mouth after midnight, for possible bronchoscopy tomorrow. Her chest x-ray shows partial collapse of the left lung. White count is 10.7, hemoglobin 0.9, hematocrit 38.6, with a platelet count of 141,000. Sodium 127, potassium 4.2, chlorides 94, CO2 22, BUN 50, and creatinine 0.85. Glucose 223. Albumin is 2.9. Chest x-ray shows increasing left-sided consolidation and pleural effusion, with volume loss. There may be a tiny left apical pneumothorax. Progress note dated 03/19/2023. 57-year-old female postop day #4, status post robotically assisted thoracoscopic left upper lobectomy for early stage lung cancer. The patient was out on the general medical floor, but came back to the intensive care unit, because of atrial fibrillation/RVR. The patient's most recent chest x-ray shows near complete collapse of the left lung, so, the patient will undergo bronchoscopy s ometime today. She's currently seen in the intensive care unit, room 251. The patient is on 4 L of oxygen. She's currently on amiodarone at 0.5 mg/m. The bronchoscopy was done at the bedside, with the aid of anesthesia. White count is 8.4, hemoglobin 12.9, hematocrit 36.6, and lately count 95,000. Sodium 127, potassium 5, chlorides 97, CO2 20, BUN 53, creatinine 0.81. Calcium is 8.2. Chest x-ray shows near complete opacification of the left lung. Progress note dated 03/20/2023. 57-year-old female, postop day #5, status post robotically assisted thoracoscopic left upper lobectomy for early stage lung cancer. The patient is seen today in room 251. Yesterday, because of left lung collapse, she underwent bronchoscopy. It was done at the bedside, with the help of anesthesia. [facility] othoracic surgery setting her for a CAT scan without contrast today. She is a 3 S. overflow patient. He is on 2 L. She's not receiving any IV fluids. White count 10.5, hemoglobin 13.2, hematocrit 39.8, and platelet count is normal. Sodium 127, potassium 5.3, chlorides 98, CO2 18, BUN 54, creatinine 0.84. Calcium is 8.4. Chest x-ray shows improved aeration, left upper lobe. Objective - Vital Signs Vital signs: Vital Signs Temp 97.8 F 03/20/23 04:00 Pulse 62 03/20/23 07:43 Resp 18 03/20/23 04:00 BP 114/51 03/20/23 04:00 Pulse Ox 97 03/20/23 07:31 FiO2 60 03/17/23 22:50 Intake & Output 03/19/23 03/20/23 03/20/23 18:59 06:59 18:59 Intake Total 400 674 Output Total 300 Balance 100 674 Weight 86.5 kg Intake: Oral 400 674 Output: Urine 300 Other: Voiding Method Indwelling Catheter # Voids 2 # Bowel Movements 2 ABP, PAP, CO, CI - Last Documented Arterial Blood Pressure 99/38 - Exam No acute distress, oriented 3. Currently on 2 L high flow nasal cannula. HEENT examination is grossly unremarkable. Mucous membranes are moist. No oral lesions. Neck supple. Full range of motion. No adenopathy thyromegaly or neck vein distention. Cardiovascular examination reveals regular rhythm rate. S1-S2 normal. No S3 or S4. No discernible murmur noted. Heart rate 54 bpm. Lungs reveal diminished bilateral breath sounds, left greater than right. 2 L saturation is 97%. Abdomen soft bowel sounds are heard. No masses or tenderness. Extremities are intact. No cyanosis clubbing or edema. Skin is without rash or lesion. Neurologic examination is brief but nonfocal. - Labs CBC & Chem 7: 03/20/23 05:27 03/20/23 05:27 Labs: Abnormal Lab Results - Last 24 Hours (Table) 03/19/23 03/19/23 03/19/23 Range/Units 11:04 17:10 19:45 Sodium (137-145) mmol/L Potassium (3.5-5.1) mmol/L Carbon Dioxide (22-30) mmol/L BUN (7-17) mg/dL Glucose (74-99) mg/dL POC Glucose (mg/dL) 142 H 136 H 196 H (70-110) mg/dL 03/20/23 03/20/23 03/20/23 Range/Units 01:29 05:27 06:40 Sodium 127 L (137-145) mmol/L Potassium 5.3 H (3.5-5.1) mmol/L Carbon Dioxide 18 L (22-30) mmol/L BUN 54 H (7-17) mg/dL Glucose 176 H (74-99) mg/dL POC Glucose (mg/dL) 176 H 220 H (70-110) mg/dL Assessment and Plan Assessment: Postop day #5, status post robotically assisted thoracoscopic left upper lobectomy with mediastinal lymph node dissection, for early stage NSCLC. S/P bronchoscopy, 03/19/2023, secondary to lung collapse, and removal of airway secretions. Intraoperative bronchoscopy, for airway secretion control. History of chronic obstructive pulmonary disease. History of CVA. History of diabetes mellitus. History of hypertension. History of hyperlipidemia. History of alcohol abuse and heroin abuse. History of hepatitis B and C. Plan: Plan dated 03/15/2023. Dr. June, was kind enough call me about this patient, and give me a heads up so to speak. The patient required intraoperative bronchoscopy, for airway secre tion. He suggested that she may need follow-up bronchoscopy, throughout her hospitalization. The patient was seen in the intensive care unit, room 257. The patient has a left-sided chest tube. She continues on oxygen at 4 L. She's getting saline at 50 mL an hour. Labs, x-rays, and medications are reviewed. We spoke to the nurse about this patient. Additional recommendations and suggestions are forthcoming. Prognosis is guarded. Plan dated 03/16/2023. The patient is seen today in room 257. He's postop day #1. The patient's currently on 2 L. She's getting saline at 50 mL an hour. The patient received some narcotic the night, for pain. It did seem to settle her down. She has a left-sided chest tube. Labs, x-rays, medications are all reviewed. We will continue to follow the patient, make recommendations along the way. We do recommend hourly use of the incentive spirometer. The patient has been downgraded by cardiothoracic surgery Plan dated 03/17/2023. The patient is seen today in room 362. She's on room air, but saturations are only 87%. I've asked respiratory to apply oxygen by nasal cannula, at 2 L. The patient currently is on saline at 10 mL an hour. Her chest x-ray stable. Labs, x-rays, and medications are reviewed. We will encourage the patient continue to deep breathe, cough, and clear secretions, and use the incentive spirometer, every hour while awake. The patient is stable, but prognosis is guarded. Plan dated 03/18/2023. The patient is much more hypoxemic than she was yesterday. The patient's currently on between 5-7 L oxygen, by nasal cannula. In addition, the patient developed atrial fibrillation with RVR, and was transferred back to the intensive care unit. She's currently on amiodarone at 1 mg/m. Labs, x-rays, and medications are reviewed. Chest x-rays a bit worse and it has been. She may require bronchoscopy tomorrow. Labs, x-rays, and medications are reviewed. We will continue to follow the patient, and make recommendations along the way. Prognosis is guarded. Plan dated 03/19/2023. The patient's currently on 4 L of oxygen. Her chest x-rays reviewed, and it is decided, to do bronchoscopy bedside, with the aid of anesthesia today. The patient continues on amiodarone at 0.5 mg/m, for atrial fibrillation and RVR. Labs, x-rays, and medications are reviewed. The patient's overall prognosis remains guarded. The patient is postoperative day #4, status post robotically assisted thoracoscopic left upper lobectomy for early stage lung cancer. Prognosis is guarded. Medications are reviewed. We will continue to follow the patient, and make recommendations along the way. Plan dated 03/20/2023. The patient has been weaned down to 2 L. She's feeling much better. She sitting in a chair, next to her hospital bed. Patient's on 2 L. No IV fluids. The patient is going for a CAT scan of the chest today, ordered by cardiothoracic surgery, without contrast. The patient had bronchoscopy, and BAL yesterday, at the bedside. She is postop day #5. Labs, x-rays, and medications are reviewed. Prognosis is guarded. We encourage the patient to deep breathe, cough, clear secretions, and use the incentive spirometer, every hour. Time with Patient: Less than 30
--- NOTE | 2023-03-20 10:57 | CT ---
EXAMINATION TYPE: CT chest wo con CT DLP: 449.8 mGycm, Automated exposure control for dose reduction was used. DATE OF EXAM: 03/20/2023 10:23 AM COMPARISON: 01/07/2023.. CLINICAL INDICATION:Female, 57 years old with history of Status post left upper lobectomy; PHH, post upper left lobectomy TECHNIQUE: Multiple axial images were obtained through the chest. Sagittal and coronal reformats were created for review. Contrast used: mL of (None if empty) Oral contrast used: (None if empty) FINDINGS: LUNGS/ PLEURA: Postsurgical change with lobectomy noted. Trace hydropneumothorax with consolidation c hanges in the left lower lung. There is mucous plugging within the large airways leading to the left lower lung series 201 image 50. This opacities in the right upper lung are new. Trace right pleural e ffusion. Mild centrilobular emphysema changes seen throughout the lungs. AIRWAY: Opacified large airways leading to the left lower lobe likely representing retained secretion s. HEART: Size the heart is mildly enlarged for size. There is coronary artery atherosclerosis. There is leftward shift of the mediastinum. MEDIASTINUM: No gross evidence of adenopathy. VASCULATURE: Atherosclerotic calcifications are present throughout the aorta and its branches. MUSCULOSKELETAL: Moderate disc degeneration changes are present throughout the thoracolumbar spine. SOFT TISSUES/LYMPH NODES: Subcutaneous emphysema seen along the left lateral chest wall deformity fro m prior thoracotomy tube. LOWER NECK: No significant findings. UPPER ABDOMEN: The gallbladder surgically absent. Nodular contour to liver parenchyma. IMPRESSION: 1. Postsurgical changes with trace hydropneumothorax. 2. Consolidation changes in the left lower lung with debris in the airway suggestive of postobstruct yadira atelectasis with superimposed infection not entirely excluded. 3. Groundglass opacities in the right upper lung are new suggestive of infectious/inflammatory proce ss versus pulmonary vascular congestion. Trace right pleural effusion. 4. Nodular liver border correlate for cirrhosis.
[2023-03-20] MEDS: LORazepam 0.5 MG TAB PO PRN (11:04)
[2023-03-20 11:38] LABS: Glucose,Whole Blood 255 mg/dL (70-110)
--- NOTE | 2023-03-20 14:19 | P.PN ---
Subjective Progress Note Date: 03/20/23 57-year-old female came in for elective pulmonary lobectomy for lung cancer found to have highly elevated blood sugars of 500 because of which patient was admitted patient last hemoglobin A1c was more than a year ago at that time it was 7.5 it appears patient may be noncompliant. Patient admits to drinking vodka with watermelon juice last night. Patient does have history of COPD continues to smoke 5 cigarettes per day is bit hypoxic. Chest x-ray showed some interstitial prominence although clinically patient doesn't appear to be in CHF patient does take 20 mg of Lasix at home patient has chronic venous stasis dermatosis of both legs and will be dermatitis. Patient is on Trulicity, 20 units of long-acting insulin along with metformin at home for diabetes with us. Patient blood sugars is presently about 300. Patient had a chest xray showing 1.2 cm let upper lobe pulmonary mass. She will be going for lung resection on Wednesday. --- postop day #4, status post robotically assisted thoracoscopic left upper lobectomy for early stage lung cancer. The patient was out on the general medical floor, but came back to the intensive care unit, because of atrial fibrillation/RVR. The patient's most recent chest x-ray shows near complete collapse of the left lung, so, the patient will undergo bronchoscopy sometime today. She's currently seen in the intensive care unit, room 251. The patient is on 4 L of oxygen. She's currently on amiodarone at 0.5 mg/m. The bronchoscopy was done at the bedside, with the aid of anesthesia. White count is 8.4, hemoglobin 12.9, hematocrit 36.6, and lately count 95,000. Sodium 127, potassium 5, chlorides 97, CO2 20, BUN 53, creatinine 0.81. Calcium is 8.2. Chest x-ray shows near complete opacification of the left lung. 03/20/2023 Patient is seen and evaluated members at bedside; postop day #5, status post robotically assisted thoracoscopic left upper lobectomy for early stage lung cancer. --Patient underwent bronchoscopy yesterday, because of left lung collapse. It was done at the bedside, with the help of anesthesia. Cardiothoracic surgery setting her for a CAT scan without contrast today. She is a 3 S. overflow patient. He is on 2 L. She's not receiving any IV fluids. White count 10.5, hemoglobin 13.2, hematocrit 39.8, and platelet count is normal. Sodium 127, potassium 5.3, chlorides 98, CO2 18, BUN 54, creatinine 0.84. Calcium is 8.4. Chest x-ray shows improved aeration, left upper lobe. Prognosis remains guarded Objective - Vital Signs Vital signs: Vital Signs Temp 97.8 F 03/20/23 04:00 Pulse 62 03/20/23 07:43 Resp 18 03/20/23 04:00 BP 114/51 03/20/23 04:00 Pulse Ox 97 03/20/23 07:31 FiO2 60 03/17/23 22:50 Intake & Output 03/19/23 03/20/23 03/20/23 18:59 06:59 18:59 Intake Total 400 674 Output Total 300 Balance 100 674 Weight 86.5 kg Intake: Oral 400 674 Output: Urine 300 Other: Voiding Method Indwelling Catheter # Voids 2 # Bowel Movements 2 ABP, PAP, CO, CI - Last Documented Arterial Blood Pressure 99/38 - Exam GENERAL: The patient is alert and oriented x3, not in any acute distress. Well developed, well nourished. HEENT: Pupils are round and equally reacting to light. EOMI. No scleral icterus. No conjunctival pallor. Normocephalic, atraumatic. No pharyngeal erythema. No thyromegaly. CARDIOVASCULAR: S1 and S2 present. No murmurs, rubs, or gallops. -PULMONARY: Chest is clear to auscultation, no wheezing , no crackles. chest tube in place ABDOMEN: Soft, nontender, nondistended, normoactive bowel sounds. No palpable organomegaly. MUSCULOSKELETAL: No joint swelling or deformity. EXTREMITIES: No cyanosis, clubbing, or pedal edema. NEUROLOGICAL: Gross neurological examination did not reveal any focal deficits. SKIN: No rashes. no petechiae. - Labs CBC & Chem 7: 03/20/23 05:27 03/20/23 05:27 Labs: Abnormal Lab Results - Last 24 Hours (Table) 03/19/23 03/19/23 03/19/23 Range/Units 11:04 17:10 19:45 Sodium (137-145) mmol/L Potassium (3.5-5.1) mmol/L Carbon Dioxide (22-30) mmol/L BUN (7-17) mg/dL Glucose (74-99) mg/dL POC Glucose (mg/dL) 142 H 136 H 196 H (70-110) mg/dL 03/20/23 03/20/23 03/20/23 Range/Units 01:29 05:27 06:40 Sodium 127 L (137-145) mmol/L Potassium 5.3 H (3.5-5.1) mmol/L Carbon Dioxide 18 L (22-30) mmol/L BUN 54 H (7-17) mg/dL Glucose 176 H (74-99) mg/dL POC Glucose (mg/dL) 176 H 220 H (70-110) mg/dL Assessment and Plan Assessment: -Lung cancer was recently diagnosed with non small cell and is now status post upper lobectomy with cardiothoracic surgery following closely.. Patient monitored in the ICU postoperatively. -Diabetes mellitus with hyperglycemia -Hypotension, improved -Hypovolemic hypernatremia -Mild hypoxia probably secondary to emphysema patient is presently not in COPD exacerbation, mention of interstitial prominence, BNP was 166 patient is on room air. -COPD without any acute exacerbation -hyperlipidemia -Hypertension -hypervascular disease -continued nicotine use: Counseling was provided Plan: Continue with amiodarone for cardiothoracic surgery team Change insulin to Levemir 30 units daily and NovoLog 12 units with meals with insulin sliding scale and close monitoring of sugar. Chest tube was removed by cardiothoracic surgery team Pulmonary consult on the case Patient started on sodium tablets We recommend fluid restriction, currently 1500 per day Labs and medication were reviewed.. Continue same treatment. Continue with symptomatic treatment. Resume home medication. Monitor labs and vitals. DVT and GI prophylaxis. Further recommendations as per clinical course of the patient DVT prophylaxis: Subcutaneous Lovenox GI Prophylaxis: Pepcid PT/OT: Home health care Prognosis is guarded
[2023-03-20 16:08] LABS: Glucose,Whole Blood 155 mg/dL (70-110)
[2023-03-20 20:17] LABS: Glucose,Whole Blood 180 mg/dL (70-110)
[2023-03-20] MEDS: METOPROLOL TARTRATE 12.5 MG TAB PO SCH (21:09)
[2023-03-21] MEDS: KETOROLAC 15 MG/ML 1 ML VIAL IVP SCH ×2 (00:51→06:38)
[2023-03-21 01:42] LABS: Glucose,Whole Blood 180 mg/dL (70-110)
[2023-03-21] MEDS: INSULIN ASPART (NovoLOG) 100 UNIT/ML VIAL SQ SCH ×8 (01:46→20:54)
[2023-03-21] MEDS: ACETAMINOPHEN TAB 325 MG TAB PO PRN ×4 (01:46→22:29)
[2023-03-21 06:08] LABS: Glucose,Whole Blood 139 mg/dL (70-110)
[2023-03-21] MEDS: PANTOPRAZOLE 40 MG TABLET PO SCH (06:38)
[2023-03-21] MEDS: INSULIN DETEMIR (LEVEMIR) 100 UNIT/ML SYR SQ SCH (06:39)
[2023-03-21] MEDS: SYMBICORT 80-4.5 MCG INHALER INHALATION SCH ×2 (07:34→19:35)
[2023-03-21] MEDS: ACETYLCYSTEINE 800 MG/4 ML VIAL INHALATION SCH ×4 (07:34→19:35)
[2023-03-21] MEDS: IPRATROPIUM-ALBUTEROL 3 ML NEB IH SCH ×4 (07:34→19:35)
--- NOTE | 2023-03-21 07:52 | XR ---
EXAMINATION TYPE: XR chest 2V DATE OF EXAM: 03/21/2023 5:29 AM CLINICAL INDICATION:Female, 57 years old with history of Post op left upper lobectomy; [facility] COMPARISON: Chest radiograph from one day prior. TECHNIQUE: XR chest 2V Frontal and lateral views of the chest. FINDINGS: Lungs/Pleura: Large left pleural effusion with improved aeration of the left lung. Trace left apical pneumothorax not well appreciated. There is no evidence of right focal consolidation, or right pneumo thorax. Blunting of the right costophrenic angle. Pulmonary vascularity: Unremarkable. Heart/mediastinum: Cardiomediastinal silhouette is unremarkable. Musculoskeletal: No acute osseous pathology. Other findings: None IMPRESSION: Decrease in aeration of the left upper lung with persistent large left pleural effusion. Trace right pleural effusion. Trace apical pneumothorax not well appreciated.
[2023-03-21] MEDS ORDERED: LORazepam 2 MG/ML INJ IV PRN (08:39)
--- NOTE | 2023-03-21 09:20 | P.PN ---
Subjective Progress Note Date: 03/21/23 Principal diagnosis: Insulin dependent diabetes with poor glycemic control, hyperglycemia, hypomagnesemia, left upper lobe mass positive for well-differentiated adenocarcinoma. History of current tobacco dependence, COPD, daily EtOH use, hypertension, hyperlipidemia, stroke in 2016 with right-sided weakness, hepatitis B and C, bipolar depression, IV heroin use with last use August 2018. POD#6 Robotic assisted thoracoscopic left upper lobectomy with mediastinal lymph node dissection, fiberoptic bronchoscopy for evacuation of inspissated sputum. Paroxysmal atrial fibrillation, known potential complication of lung surgery. Hypotension although MAP stable, not requiring pressors. The patient was seen and examined in follow-up today 03/21/2023 at her bedside in the intensive care unit. She is sitting up to bedside chair, is awake, alert, oriented 3 and is in no acute apparent distress. Denies any complaints of pain at this time or shortness of breath. Oxygen saturations are 95% on 2 L nasal cannula and she is achieving 750 mL on her incentive spirometry with enco uragement. Bedside telemetry showing sinus bradycardia heart rate 56 BPM. She reports she has been up ambulating in the intensive care unit hallway with standby assistance from nursing staff, and tolerating well. She remains hemodynamically stable and is currently on no inotropic pressor support. A computed tomography scan of her chest without contrast was completed yesterday which shows postsurgical changes with trace hydropneumothorax, consolidation changes in the left lower lung with debris in the airway suggestive of postobstructive atelectasis with superimposed infection not entirely excluded, groundglass opacities in the right upper lung, trace right pleural effusion and nodular liver border correlate for cirrhosis. The patient has been nothing by mouth since midnight in anticipation for bronchoscopy today to be performed by Dr. Reynolds from pulmonary/critical care medicine. Laboratory and chest x-ray results reviewed. Objective - Vital Signs Vital signs: Vital Signs Temp 97.6 F 03/21/23 04:00 Pulse 86 03/21/23 07:52 Resp 12 03/21/23 04:00 BP 102/40 03/21/23 04:00 Pulse Ox 95 03/21/23 04:00 FiO2 60 03/17/23 22:50 Intake & Output 03/20/23 03/21/23 03/21/23 18:59 06:59 18:59 Output Total 200 Balance -200 Weight 87.3 kg Output: Urine 200 Other: Voiding Method Toilet Toilet # Voids 1 2 # Bowel Movements 1 2 ABP, PAP, CO, CI - Last Documented Arterial Blood Pressure 99/38 - Exam CONSTITUTIONAL: Appears comfortable, and cooperative. RESPIRATORY: Lungs sounds diminished to her left lower lobe, essentially clear to the right lobes. Respirations symmetrical, nonlabored. Currently on 2 LPM NC with oxygen saturation 95%. Able to achieve 750 on her incentive spirometry. Strong cough. CARDIOVASCULAR: Regular rhythm and bradycardic rate. S1 and S2 present, negative for S3, gallop or murmur. Bedside telemetry is showing sinus bradycardia heart rate 56 BPM. Palpable peripheral pulses bilaterally. No edema present. No calf pain or tenderness noted. SCDs present. GASTROINTESTINAL: Abdomen soft, nontender, and nondistended. Active bowel sounds present 4 quadrants. Tolerating diet. Passing flatus. GENITOURINARY: Patient continues to void. INTEGUMENTARY: Skin is warm and dry, no clubbing or cyanosis is present. Left chest incisions clean, dry and approximated. NEUROLOGIC: Cranial nerves II through XII intact. No focal deficits. MUSKULOSKELETAL: Able to move all extremities, strength equal bilaterally. PSYCHIATRIC: Alert and oriented to person place and time, flat affect. - Allied health notes Allied health notes reviewed: nursing - Labs CBC & Chem 7: 03/20/23 05:27 03/20/23 05:27 Labs: Abnormal Lab Results - Last 24 Hours (Table) 03/20/23 03/20/23 03/20/23 Range/Units 11:34 16:06 20:16 POC Glucose (mg/dL) 255 H 155 H 180 H (70-110) mg/dL 03/21/23 03/21/23 Range/Units 01:40 06:08 POC Glucose (mg/dL) 180 H 139 H (70-110) mg/dL - Imaging and Cardiology Chest x-ray: report reviewed, image reviewed Assessment and Plan Assessment: Insulin dependent diabetes with poor glycemic control, hyperglycemia, A1c 9.8% Hypomagnesemia Left upper lobe mass positive for well-differentiated adenocarcinoma, status post left upper lobectomy Current tobacco dependence Moderate COPD, preoperative FEV1 54% of predicted, DLCO 36% of predicted Current daily EtOH use Hypertension, currently hypotensive Hyperlipidemia Stroke in 2016 with right-sided weakness Hepatitis B and C Bipolar depression History of IV heroin use 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 Reynolds Plan: Continue metoprolol tartrate 12.5 mg by mouth twice a day with hold parameters. No anticoagulation due to recent surgery. Continue to improve blood glucose control, insulin adjustments made by primary service. Increase activity, ambulate as tolerated. Patient should be out of bed for all meals, she should be out of bed the majority of the day and use the bed for sleeping at nighttime only Wean oxygen as tolerated. Encourage incentive spirometry 10x every hour while awake. Bronchodilators per pulmonology. Monitor for alcohol withdrawal, thiamine and folic acid ordered, magnesium replaced. Continue Nicotine patch. Smoking cessation counseling and education reinforced. Continue Tylenol and Toradol for pain control. Continue to monitor daily chest x-rays and labs. Send sputum for Gram stain and C&S. Nothing by mouth since midnight for bronchoscopy to be completed by Dr. Reynolds. Medical management of other comorbidities per internal medicine Time with Patient: Greater than 30
--- NOTE | 2023-03-21 09:39 | P.PN ---
Subjective Progress Note Date: 03/21/23 Principal diagnosis: Lung cancer. Pulmonary consult dated 03/15/2023. This is a 57-year-old female who was admitted for possible left upper lobectomy, by Dr. June. Initially, the patient had a significant elevation in her blood, and the surgery was delayed. It was finally done today. He did call me after the procedure. In December of this year, my partner, did a flexible bronchoscopy, robotically-assisted bronchoscopy, and biopsies, the lesion, and the left upper lobe. The biopsies were positive for well-differentiated pulmonary adenocarcinoma. Currently, the patient's resting comfortably in the intensive care unit. The patient's on 4 L of oxygen, and getting saline at 50 mL an hour. Again as I mentioned above, I did speak to the surgeon about this patient. He was concerned that she may need bronchoscopy over the next few days, for left lung collapse. Apparently her airways were full of mucus. Currently labs data only includes a glucose of 260. Chest x-ray shows a left- sided consolidation and a small effusion, with no sizable pneumothorax. Chest tube is noted. Labs from yesterday include a white count of 5.9, hemoglobin 13.4, hematocrit 39.7, and a platelet count of 96,000. Sodium 137, potassium 4.3, chlorides 102, CO2 27, UN 15, and creatinine 0.7. N-terminal proBNP was 166. Progress note dated 03/16/2023. 57-year-old female postop day #1, status post robotically assisted thoracoscopic left upper lobectomy for lung cancer. The patient is seen today in room 257. She is on 2 L of oxygen. She's getting saline at 50 mL an hour. According to the nurses, the patient had an uneventful night. The patient's resting comfortably in bed. Again, she is on 2 L, by nasal cannula. White count 11.2, hemoglobin 13.4, and platelet count 105,000. Sodium 135, potassium 3.9, chlorides 99, CO2 28, BUN 14, creatinine 0.49. Magnesium 1.4. Chest x-rays shows some volume loss in the left lung, with some left-sided consolidation, and a small effusion. Progress note dated 03/17/2023. 57-year-old female, postop day #2, status post robotically assisted thoracoscopic left upper lobectomy for lung cancer. The patient is seen today in room 362. She's currently on room air, but saturations are only 87%. I asked respiratory therapy to place her on oxygen at 2 L. The left-sided chest tube had been removed. She's getting saline at 10 mL an hour. White count is 10.7, hemoglobin 13.1, hematocrit 40, and platelet count 108,000. Sodium 127, potassium 4.2, chlorides 94, CO2 25, BUN 31, and creatinine 0.71. Calcium is 8.2. Magnesium is 2.2. Chest x-ray from today shows postoperative changes, with stable left-sided consolidation and small pleural effusion. No pneumothorax is seen. Progress note dated 03/18/2023. 57-year-old female, postoperative day #3, status post robotically assisted thoracoscopic left upper lobectomy for early stage lung cancer. The patient was outside on the general floor, but came back into the intensive care unit, room 251, because of atrial fibrillation with rapid ventricular response. Currently, she is seen in the ICU, and is currently on 7 L high flow oxygen, and amiodarone at 1 mg/m. We did make her nothing by mouth after midnight, for possible bronchoscopy tomorrow. Her chest x-ray shows partial collapse of the left lung. White count is 10.7, hemoglobin 0.9, hematocrit 38.6, with a platelet count of 141,000. Sodium 127, potassium 4.2, chlorides 94, CO2 22, BUN 50, and creatinine 0.85. Glucose 223. Albumin is 2.9. Chest x-ray shows increasing left-sided consolidation and pleural effusion, with volume loss. There may be a tiny left apical pneumothorax. Progress note dated 03/19/2023. 57-year-old female postop day #4, status post robotically assisted thoracoscopic left upper lobectomy for early stage lung cancer. The patient was out on the general medical floor, but came back to the intensive care unit, because of atrial fibrillation/RVR. The patient's most recent chest x-ray shows near complete collapse of the left lung, so, the patient will undergo bronchoscopy s ometime today. She's currently seen in the intensive care unit, room 251. The patient is on 4 L of oxygen. She's currently on amiodarone at 0.5 mg/m. The bronchoscopy was done at the bedside, with the aid of anesthesia. White count is 8.4, hemoglobin 12.9, hematocrit 36.6, and lately count 95,000. Sodium 127, potassium 5, chlorides 97, CO2 20, BUN 53, creatinine 0.81. Calcium is 8.2. Chest x-ray shows near complete opacification of the left lung. Progress note dated 03/20/2023. 57-year-old female, postop day #5, status post robotically assisted thoracoscopic left upper lobectomy for early stage lung cancer. The patient is seen today in room 251. Yesterday, because of left lung collapse, she underwent bronchoscopy. It was done at the bedside, with the help of anesthesia. [facility] othoracic surgery setting her for a CAT scan without contrast today. She is a 3 S. overflow patient. He is on 2 L. She's not receiving any IV fluids. White count 10.5, hemoglobin 13.2, hematocrit 39.8, and platelet count is normal. Sodium 127, potassium 5.3, chlorides 98, CO2 18, BUN 54, creatinine 0.84. Calcium is 8.4. Chest x-ray shows improved aeration, left upper lobe. Progress note dated 03/21/2023. 57-year-old female, postop day #6, status post robotically assisted thoracoscopic left upper lobectomy for early stage lung cancer. The patient's chest x-ray today shows a developing infiltrate in the right lung, also seen on computed tomography scan, and nearly complete left lung collapse. The patient has had previous bronchoscopy, and will have another one today. He's currently on 2 L. No IV fluids. We did send in a pro-calcitonin level. She is currently not on any antibiotics. No new labs today. Objective - Vital Signs Vital signs: Vital Signs Temp 97.6 F 03/21/23 04:00 Pulse 86 03/21/23 07:52 Resp 12 03/21/23 04:00 BP 102/40 03/21/23 04:00 Pulse Ox 95 03/21/23 04:00 FiO2 60 03/17/23 22:50 Intake & Output 03/20/23 03/21/23 03/21/23 18:59 06:59 18:59 Output Total 200 Balance -200 Weight 87.3 kg Output: Urine 200 Other: Voiding Method Toilet Toilet # Voids 1 2 # Bowel Movements 1 2 ABP, PAP, CO, CI - Last Documented Arterial Blood Pressure 99/38 - Exam No acute distress, oriented 3. Currently on 2 L high flow nasal cannula. HEENT examination is grossly unremarkable. Mucous membranes are moist. No oral lesions. Neck supple. Full range of motion. No adenopathy thyromegaly or neck vein distention. Cardiovascular examination reveals regular rhythm rate. S1-S2 normal. No S3 or S4. No discernible murmur noted. Heart rate 86 bpm. Lungs reveal diminished bilateral breath sounds, left greater than right. 2 L saturation is 95 %. Abdomen soft bowel sounds are heard. No masses or tenderness. Extremities are intact. No cyanosis clubbing or edema. Skin is without rash or lesion. Neurologic examination is brief but nonfocal. - Labs CBC & Chem 7: 03/20/23 05:27 03/20/23 05:27 Labs: Abnormal Lab Results - Last 24 Hours (Table) 03/20/23 03/20/23 03/20/23 Range/Units 11:34 16:06 20:16 POC Glucose (mg/dL) 255 H 155 H 180 H (70-110) mg/dL 03/21/23 03/21/23 Range/Units 01:40 06:08 POC Glucose (mg/dL) 180 H 139 H (70-110) mg/dL Assessment and Plan Assessment: Postop day #6, status post robotically assisted thoracoscopic left upper lobectomy with mediastinal lymph node dissection, for early stage NSCLC. S/P bronchoscopy, 03/19/2023, secondary to lung collapse, and removal of airway secretions. Anticipated repeat bronchoscopy, 03/21/2023. Intraoperative bronchoscopy, for airway secretion control. History of chronic obstructive pulmonary disease. History of CVA. History of diabetes mellitus. History of hypertension. History of hyperlipidemia. History of alcohol abuse and heroin abuse. History of hepatitis B and C. Plan: Plan dated 03/15/2023. Dr. June, was kind enough call me about this patient, and give me a heads up so to speak. The patient required intraoperative bronchoscopy, for airway secretion. He suggested that she may need follow-up bronchoscopy, throughout her hospitalization. The patient was seen in the intensive care unit, room 257. The patient has a left-sided chest tube. She continues on oxygen at 4 L. She's getting saline at 50 mL an hour. Labs, x-rays, and medications are reviewed. We spoke to the nurse about this patient. Additional recommendations and suggestions are forthcoming. Prognosis is guarded. Plan dated 03/16/2023. The patient is seen today in room 257. He's postop day #1. The patient's currently on 2 L. She's getting saline at 50 mL an hour. The patient received some narcotic the night, for pain. It did seem to settle her down. She has a left-sided chest tube. Labs, x-rays, medications are all reviewed. We will continue to follow the patient, make recommendations along the way. We do recommend hourly use of the incentive spirometer. The patient has been downgraded by cardiothoracic surgery Plan dated 03/17/2023. The patient is seen today in room 362. She's on room air, but saturations are only 87%. I've asked respiratory to apply oxygen by nasal cannula, at 2 L. The patient currently is on saline at 10 mL an hour. Her chest x-ray stable. Labs, x-rays, and medications are reviewed. We will encourage the patient continue to deep breathe, cough, and clear secretions, and use the incentive spirometer, every hour while awake. The patient is stable, but prognosis is guarded. Plan dated 03/18/2023. The patient is much more hypoxemic than she was yesterday. The patient's currently on between 5-7 L oxygen, by nasal cannula. In addition, the patient developed atrial fibrillation with RVR, and was transferred back to the intensive care unit. She's currently on amiodarone at 1 mg/m. Labs, x-rays, and medications are reviewed. Chest x-rays a bit worse and it has been. She may require bronchoscopy tomorrow. Labs, x-rays, and medications are reviewed. We will continue to follow the patient, and make recommendations along the way. Prognosis is guarded. Plan dated 03/19/2023. The patient's currently on 4 L of oxygen. Her chest x-rays reviewed, and it is decided, to do bronchoscopy bedside, with the aid of anesthesia today. The patient continues on amiodarone at 0.5 mg/m, for atrial fibrillation and RVR. Labs, x-rays, and medications are reviewed. The patient's overall prognosis remains guarded. The patient is postoperative day #4, status post robotically assisted thoracoscopic left upper lobectomy for early stage lung cancer. Prognosis is guarded. Medications are reviewed. We will continue to follow the patient, and make recommendations along the way. Plan dated 03/20/2023. The patient has been weaned down to 2 L. She's feeling much better. She sitting in a chair, next to her hospital bed. Patient's on 2 L. No IV fluids. The patient is going for a CAT scan of the chest today, ordered by cardioth oracic surgery, without contrast. The patient had bronchoscopy, and BAL yesterday, at the bedside. She is postop day #5. Labs, x-rays, and medications are reviewed. Prognosis is guarded. We encourage the patient to deep breathe, cough, clear secretions, and use the incentive spirometer, every hour. Plan dated 03/21/2023. The patient's currently on 2 L of oxygen. Saturations in the mid 90s. Chest x- ray shows near complete opacification of the left lung. Computed tomography scan of the chest shows developing infiltrate in the right lung. We did send out a pro-calcitonin level. Labs, x-rays, and medications are reviewed. Overall prognosis remains guarded. The patient is not doing well on her incentive spirometer. We will continue to follow make recommendations along the way. Time with Patient: Less than 30
[2023-03-21] MEDS: NICOTINE 7MG/24HR PATCH TRANSDERM SCH (09:47)
[2023-03-21 10:29] LABS: Basophils % (A) 0 %; Eosinophils # (A) 0.2 k/uL (0-0.7); Eosinophils % (A) 2 %; HCT 39.6 % (34.0-46.0); HGB 13.7 gm/dL (11.4-16.0); Lymphocytes # (A) 2.6 k/uL (1.0-4.8); Lymphocytes % (A) 28 %; MCH 33.6 pg (25.0-35.0); MCHC 34.6 g/dL (31.0-37.0); MCV 97.2 fL (80.0-100.0); Mean Platelet Volume 9.5; Monocytes # (A) 0.6 k/uL (0-1.0); Monocytes % (A) 7 %; Neutrophils # (A) 5.6 k/uL (1.3-7.7); Neutrophils % (A) 61 %; Platelet Count 207 k/uL (150-450); RBC 4.07 m/uL (3.80-5.40); RDW 13.2 % (11.5-15.5); WBC 9.2 k/uL (3.8-10.6)
[2023-03-21] MEDS: GABAPENTIN 400 MG CAP PO SCH ×3 (10:33→22:30)
[2023-03-21 10:48] LABS: African American GFR (CKD) >90 (>60 ml/min/1.73 sqM); Anion Gap 11 mmol/L; Blood Urea Nitrogen 50 mg/dL (7-17); Calcium 8.4 mg/dL (8.4-10.2); Carbon Dioxide 23 mmol/L (22-30); Chloride 99 mmol/L (98-107); Glucose 162 mg/dL (74-99); Non-African American GFR(CKD) 81 (>60 ml/min/1.73 sqM); Potassium 5.5 mmol/L (3.5-5.1); Sodium 133 mmol/L (137-145)
[2023-03-21 11:20] LABS: Glucose,Whole Blood 231 mg/dL (70-110)
[2023-03-21] MEDS: ENOXAPARIN 40 MG/0.4 ML SYRINGE SQ SCH (12:59)
[2023-03-21] MEDS: METOPROLOL TARTRATE 12.5 MG TAB PO SCH ×2 (13:00→21:49)
[2023-03-21] MEDS: THIAMINE 100 MG TAB PO SCH (13:00)
[2023-03-21] MEDS: ATORVASTATIN 10 MG TAB PO SCH (13:00)
[2023-03-21] MEDS: SODIUM CHLORIDE TAB 1 GM TAB PO SCH ×2 (13:00→20:55)
[2023-03-21] MEDS: FOLIC ACID 1 MG TAB PO SCH (13:00)
[2023-03-21] MEDS: MAGNESIUM OXIDE 400 MG TAB PO SCH ×2 (13:00→20:54)
[2023-03-21] MEDS: LORazepam 0.5 MG TAB PO PRN ×2 (15:59→20:54)
--- NOTE | 2023-03-21 16:05 | P.PN ---
Subjective Progress Note Date: 03/21/23 57-year-old female came in for elective pulmonary lobectomy for lung cancer found to have highly elevated blood sugars of 500 because of which patient was admitted patient last hemoglobin A1c was more than a year ago at that time it was 7.5 it appears patient may be noncompliant. Patient admits to drinking vodka with watermelon juice last night. Patient does have history of COPD continues to smoke 5 cigarettes per day is bit hypoxic. Chest x-ray showed some interstitial prominence although clinically patient doesn't appear to be in CHF patient does take 20 mg of Lasix at home patient has chronic venous stasis dermatosis of both legs and will be dermatitis. Patient is on Trulicity, 20 units of long-acting insulin along with metformin at home for diabetes with us. Patient blood sugars is presently about 300. Patient had a chest xray showing 1.2 cm let upper lobe pulmonary mass. She will be going for lung resection on Wednesday. --- postop day #4, status post robotically assisted thoracoscopic left upper lobectomy for early stage lung cancer. The patient was out on the general medical floor, but came back to the intensive care unit, because of atrial fibrillation/RVR. The patient's most recent chest x-ray shows near complete collapse of the left lung, so, the patient will undergo bronchoscopy sometime today. She's currently seen in the intensive care unit, room 251. The patient is on 4 L of oxygen. She's currently on amiodarone at 0.5 mg/m. The bronchoscopy was done at the bedside, with the aid of anesthesia. White count is 8.4, hemoglobin 12.9, hematocrit 36.6, and lately count 95,000. Sodium 127, potassium 5, chlorides 97, CO2 20, BUN 53, creatinine 0.81. Calcium is 8.2. Chest x-ray shows near complete opacification of the left lung. 03/20/2023 Patient is seen and evaluated members at bedside; postop day #5, status post robotically assisted thoracoscopic left upper lobectomy for early stage lung cancer. --Patient underwent bronchoscopy yesterday, because of left lung collapse. It was done at the bedside, with the help of anesthesia. Cardiothoracic surgery setting her for a CAT scan without contrast today. She is a 3 S. overflow patient. He is on 2 L. She's not receiving any IV fluids. White count 10.5, hemoglobin 13.2, hematocrit 39.8, and platelet count is normal. Sodium 127, potassium 5.3, chlorides 98, CO2 18, BUN 54, creatinine 0.84. Calcium is 8.4. Chest x-ray shows improved aeration, left upper lobe. Prognosis remains guarded 03/21/2023 Patient is seen and evaluated in room at bedside; postop day #6, status post robotically assisted thoracoscopic left upper lobectomy for early stage lung cancer. The patient's chest x-ray today shows a developing infiltrate in the right lung, also seen on computed tomography scan, and nearly complete left lung collapse. The patient has had previous bronchoscopy, and will have another one today. He's currently on 2 L. No IV fluids. We did send in a pro-calcitonin level. She is currently not on any antibiotics. Objective - Vital Signs Vital signs: Vital Signs Temp 97.4 F L 03/21/23 08:00 Pulse 58 L 03/21/23 11:23 Resp 16 03/21/23 08:00 BP 108/77 03/21/23 08:00 Pulse Ox 99 03/21/23 08:00 FiO2 60 03/17/23 22:50 Intake & Output 03/20/23 03/21/23 03/21/23 18:59 06:59 18:59 Output Total 200 200 Balance -200 -200 Weight 87.3 kg Output: Urine 200 200 Other: Voiding Method Toilet Toilet Toilet # Voids 1 2 # Bowel Movements 1 2 ABP, PAP, CO, CI - Last Documented Arterial Blood Pressure 99/38 - Exam GENERAL: The patient is alert and oriented x3, not in any acute distress. Well developed, well nourished. HEENT: Pupils are round and equally reacting to light. EOMI. No scleral icterus. No conjunctival pallor. Normocephalic, atraumatic. No pharyngeal erythema. No thyromegaly. CARDIOVASCULAR: S1 and S2 present. No murmurs, rubs, or gallops. -PULMONARY: Chest is clear to auscultation, no wheezing , no crackles. chest tube in place ABDOMEN: Soft, nontender, nondistended, normoactive bowel sounds. No palpable organomegaly. MUSCULOSKELETAL: No joint swelling or deformity. EXTREMITIES: No cyanosis, clubbing, or pedal edema. NEUROLOGICAL: Gross neurological examination did not reveal any focal deficits. SKIN: No rashes. no petechiae. - Labs CBC & Chem 7: 03/21/23 09:30 03/21/23 13:05 Labs: Abnormal Lab Results - Last 24 Hours (Table) 03/20/23 03/20/23 03/20/23 Range/Units 11:34 16:06 20:16 Sodium (137-145) mmol/L Potassium (3.5-5.1) mmol/L BUN (7-17) mg/dL Glucose (74-99) mg/dL POC Glucose (mg/dL) 255 H 155 H 180 H (70-110) mg/dL 03/21/23 03/21/23 03/21/23 Range/Units 01:40 06:08 09:30 Sodium 133 L (137-145) mmol/L Potassium 5.5 H (3.5-5.1) mmol/L BUN 50 H (7-17) mg/dL Glucose 162 H (74-99) mg/dL POC Glucose (mg/dL) 180 H 139 H (70-110) mg/dL 03/21/23 Range/Units 11:18 Sodium (137-145) mmol/L Potassium (3.5-5.1) mmol/L BUN (7-17) mg/dL Glucose (74-99) mg/dL POC Glucose (mg/dL) 231 H (70-110) mg/dL Assessment and Plan Assessment: -Lung cancer was recently diagnosed with non small cell and is now status post upper lobectomy with cardiothoracic surgery following closely.. Patient monitored in the ICU postoperatively. -Diabetes mellitus with hyperglycemia -Hypotension, improved -Hypovolemic hypernatremia -Mild hypoxia probably secondary to emphysema patient is presently not in COPD exacerbation, mention of interstitial prominence, BNP was 166 patient is on room air. -COPD without any acute exacerbation -hyperlipidemia -Hypertension -hypervascular disease -continued nicotine use: Counseling was provided Plan: Continue with amiodarone for cardiothoracic surgery team Change insulin to Levemir 30 units daily and NovoLog 12 units with meals with insulin sliding scale and close monitoring of sugar. Chest tube was removed by cardiothoracic surgery team Pulmonary consult on the case Patient started on sodium tablets We recommend fluid restriction, currently 1500 per day Labs and medication were reviewed.. Continue same treatment. Continue with symptomatic treatment. Resume home medication. Monitor labs and vitals. DVT and GI prophylaxis. Further recommendations as per clinical course of the patient DVT prophylaxis: Subcutaneous Lovenox GI Prophylaxis: Pepcid PT/OT: Home health care Prognosis is guarded
[2023-03-21 16:38] LABS: Glucose,Whole Blood 192 mg/dL (70-110)
[2023-03-21 20:10] LABS: Glucose,Whole Blood 263 mg/dL (70-110)
[2023-03-22] MEDS: LORazepam 0.5 MG TAB PO PRN ×2 (00:19→04:32)
[2023-03-22 02:14] LABS: Glucose,Whole Blood 196 mg/dL (70-110)
[2023-03-22] MEDS: INSULIN ASPART (NovoLOG) 100 UNIT/ML VIAL SQ SCH ×8 (02:49→20:32)
[2023-03-22 03:43] LABS: Basophils % (A) 0 %; Eosinophils # (A) 0.1 k/uL (0-0.7); Eosinophils % (A) 2 %; HCT 36.3 % (34.0-46.0); HGB 11.8 gm/dL (11.4-16.0); Lymphocytes # (A) 1.8 k/uL (1.0-4.8); Lymphocytes % (A) 24 %; MCH 31.8 pg (25.0-35.0); MCHC 32.6 g/dL (31.0-37.0); MCV 97.6 fL (80.0-100.0); Mean Platelet Volume 8.3; Monocytes # (A) 0.6 k/uL (0-1.0); Monocytes % (A) 7 %; Neutrophils # (A) 4.9 k/uL (1.3-7.7); Neutrophils % (A) 65 %; Platelet Count 216 k/uL (150-450); RBC 3.72 m/uL (3.80-5.40); RDW 12.9 % (11.5-15.5); WBC 7.5 k/uL (3.8-10.6)
[2023-03-22 03:56] LABS: African American GFR (CKD) >90 (>60 ml/min/1.73 sqM); Anion Gap 9 mmol/L; Blood Urea Nitrogen 36 mg/dL (7-17); Carbon Dioxide 26 mmol/L (22-30); Chloride 99 mmol/L (98-107); Glucose 169 mg/dL (74-99); Non-African American GFR(CKD) >90 (>60 ml/min/1.73 sqM); Potassium 5.3 mmol/L (3.5-5.1); Sodium 134 mmol/L (137-145)
[2023-03-22] MEDS: ACETAMINOPHEN TAB 325 MG TAB PO PRN ×3 (04:31→15:52)
[2023-03-22] MEDS ORDERED: INSULIN REGULAR 100 UNIT/ML VIAL (IV) IV ONE (05:08)
[2023-03-22] MEDS ORDERED: DEXTROSE 50% SYRINGE 50 ML IVP ONE (05:08)
[2023-03-22] MEDS ORDERED: ALBUTEROL NEB (CONC) 2.5 MG/0.5 ML INHALATION ONE (05:08)
[2023-03-22 06:43] LABS: Glucose,Whole Blood 159 mg/dL (70-110)
[2023-03-22] MEDS: INSULIN DETEMIR (LEVEMIR) 100 UNIT/ML SYR SQ SCH (06:52)
[2023-03-22] MEDS: PANTOPRAZOLE 40 MG TABLET PO SCH (06:52)
[2023-03-22] MEDS: IPRATROPIUM-ALBUTEROL 3 ML NEB IH SCH ×4 (07:57→19:54)
[2023-03-22] MEDS: SYMBICORT 80-4.5 MCG INHALER INHALATION SCH ×2 (07:58→19:55)
[2023-03-22] MEDS: ACETYLCYSTEINE 800 MG/4 ML VIAL INHALATION SCH ×4 (07:58→19:55)
--- NOTE | 2023-03-22 08:16 | P.PN ---
Subjective Progress Note Date: 03/22/23 Principal diagnosis: Insulin dependent diabetes with poor glycemic control, hyperglycemia, hypomagnesemia, left upper lobe mass positive for well-differentiated adenocarcinoma. History of current tobacco dependence, COPD, daily EtOH use, hypertension, hyperlipidemia, stroke in 2016 with right-sided weakness, hepatitis B and C, bipolar depression, IV heroin use with last use August 2018. POD#7 Robotic assisted thoracoscopic left upper lobectomy with mediastinal lymph node dissection, fiberoptic bronchoscopy for evacuation of inspissated sputum. Paroxysmal atrial fibrillation, known potential complication of lung surgery. Hypotension although MAP stable, not requiring pressors. Patient was seen and examined in follow-up today 03/22/2023 at her bedside in the intensive care unit. She is currently sitting up to the bedside chair, is awake, alert, oriented 3 and is in no acute apparent distress. She denies any complaints of pain or shortness of breath at this time, although states she has a productive cough. Oxygen saturations are 92% on room air and she is achieving 1000 mL on her incentive spirometry with encouragement. She reports she has been up ambulating in the intensive care unit hallway with standby assistance from nursing staff and tolerating well. Bedside telemetry showing normal sinus rhythm heart rate 67 BPM. She was scheduled for a bedside bronchoscopy yesterday to be performed by pulmonary/critical care medicine although was rescheduled for today due to some elevated potassium. Laboratory and chest x- ray results reviewed. She has been afebrile the last 24 hours. Objective - Vital Signs Vital signs: Vital Signs Temp 97.5 F L 03/22/23 04:00 Pulse 65 03/22/23 05:42 Resp 20 03/22/23 04:00 BP 137/72 03/22/23 04:00 Pulse Ox 97 03/22/23 04:00 FiO2 60 03/17/23 22:50 Intake & Output 03/21/23 03/22/23 03/22/23 18:59 06:59 18:59 Output Total 500 650 Balance -500 -650 Output: Urine 500 650 Other: Voiding Method Toilet Toilet Bedside Commode # Voids 2 1 # Bowel Movements 2 2 ABP, PAP, CO, CI - Last Documented Arterial Blood Pressure 99/38 - Exam CONSTITUTIONAL: Appears comfortable, and cooperative. RESPIRATORY: Lungs sounds diminished to her left lower lobe, essentially clear to the right lobes. Respirations symmetrical, nonlabored. Currently on room air with oxygen saturation 92%. Able to achieve 1000 ml on her incentive spirometry. Strong cough. CARDIOVASCULAR: Regular rhythm and bradycardic rate. S1 and S2 present, negative for S3, gallop or murmur. Bedside telemetry is showing normal sinus rhythm heart rate 67 BPM. Palpable peripheral pulses bilaterally. No edema present. No calf pain or tenderness noted. SCDs present. GASTROINTESTINAL: Abdomen soft, nontender, and nondistended. Active bowel sounds present 4 quadrants. Tolerating diet. Passing flatus. Bowel movement yesterday 03/21/2023 GENITOURINARY: Patient continues to void. INTEGUMENTARY: Skin is warm and dry, no clubbing or cyanosis is present. Left chest incisions clean, dry and approximated. NEUROLOGIC: Cranial nerves II through XII intact. No focal deficits. MUSKULOSKELETAL: Able to move all extremities, strength equal bilaterally. PSYCHIATRIC: Alert and oriented to person place and time, flat affect. - Allied health notes Allied health notes reviewed: nursing - Labs CBC & Chem 7: 03/22/23 03:25 03/22/23 03:25 Labs: Abnormal Lab Results - Last 24 Hours (Table) 03/21/23 03/21/23 03/21/23 Range/Units 09:30 09:30 11:18 RBC (3.80-5.40) m/uL Sodium 133 L (137-145) mmol/L Potassium 5.5 H (3.5-5.1) mmol/L BUN 50 H (7-17) mg/dL Glucose 162 H (74-99) mg/dL POC Glucose (mg/dL) 231 H (70-110) mg/dL Calcium (8.4-10.2) mg/dL Procalcitonin 0.56 H (0.02-0.09) ng/mL 03/21/23 03/21/23 03/22/23 Range/Units 16:38 20:09 02:12 RBC (3.80-5.40) m/uL Sodium (137-145) mmol/L Potassium (3.5-5.1) mmol/L BUN (7-17) mg/dL Glucose (74-99) mg/dL POC Glucose (mg/dL) 192 H 263 H 196 H (70-110) mg/dL Calcium (8.4-10.2) mg/dL Procalcitonin (0.02-0.09) ng/mL 03/22/23 03/22/23 03/22/23 Range/Units 03:25 03:25 06:41 RBC 3.72 L (3.80-5.40) m/uL Sodium 134 L (137-145) mmol/L Potassium 5.3 H (3.5-5.1) mmol/L BUN 36 H (7-17) mg/dL Glucose 169 H (74-99) mg/dL POC Glucose (mg/dL) 159 H (70-110) mg/dL Calcium 8.0 L (8.4-10.2) mg/dL Procalcitonin (0.02-0.09) ng/mL - Imaging and Cardiology Chest x-ray: report reviewed, image reviewed Assessment and Plan Assessment: Insulin dependent diabetes with poor glycemic control, hyperglycemia, A1c 9.8% Hypomagnesemia Left upper lobe mass positive for well-differentiated adenocarcinoma, status post left upper lobectomy Current tobacco dependence Moderate COPD, preoperative FEV1 54% of predicted, DLCO 36% of predicted Current daily EtOH use Hypertension, currently hypotensive Hyperlipidemia Stroke in 2016 with right-sided weakness Hepatitis B and C Bipolar depression History of IV heroin use 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 Reynolds Plan: Continue metoprolol tartrate 12.5 mg by mouth twice a day with hold parameters. No anticoagulation due to recent surgery. Continue to improve blood glucose control, insulin adjustments made by primary service. Potassium level 5.3 this morning, the patient was given 1 amp of D50 and 10 units of regular insulin IV 1 by internal medicine. We will repeat a potassium level in 1 hour post D50 and regular insulin. Increase activity, ambulate as tolerated. Patient should be out of bed for all meals, she should be out of bed the majority of the day and use the bed for sleeping at nighttime only Encourage incentive spirometry 10x every hour while awake. Bronchodilators per pulmonology. Monitor for alcohol withdrawal, thiamine and folic acid ordered. Continue Nicotine patch. Smoking cessation counseling and education reinforced. Continue Tylenol for pain control. Continue to monitor daily chest x-rays and labs. Send sputum for Gram stain and C&S. Nothing by mouth since midnight for bronchoscopy to be completed by Dr. Reynolds. Medical management of other comorbidities per internal medicine Time with Patient: Greater than 30
--- NOTE | 2023-03-22 09:59 | P.PN ---
Subjective Progress Note Date: 03/22/23 Principal diagnosis: Lung cancer. Pulmonary consult dated 03/15/2023. This is a 57-year-old female who was admitted for possible left upper lobectomy, by Dr. June. Initially, the patient had a significant elevation in her blood, and the surgery was delayed. It was finally done today. He did call me after the procedure. In December of this year, my partner, did a flexible bronchoscopy, robotically-assisted bronchoscopy, and biopsies, the lesion, and the left upper lobe. The biopsies were positive for well-differentiated pulmonary adenocarcinoma. Currently, the patient's resting comfortably in the intensive care unit. The patient's on 4 L of oxygen, and getting saline at 50 mL an hour. Again as I mentioned above, I did speak to the surgeon about this patient. He was concerned that she may need bronchoscopy over the next few days, for left lung collapse. Apparently her airways were full of mucus. Currently labs data only includes a glucose of 260. Chest x-ray shows a left- sided consolidation and a small effusion, with no sizable pneumothorax. Chest tube is noted. Labs from yesterday include a white count of 5.9, hemoglobin 13.4, hematocrit 39.7, and a platelet count of 96,000. Sodium 137, potassium 4.3, chlorides 102, CO2 27, UN 15, and creatinine 0.7. N-terminal proBNP was 166. Progress note dated 03/16/2023. 57-year-old female postop day #1, status post robotically assisted thoracoscopic left upper lobectomy for lung cancer. The patient is seen today in room 257. She is on 2 L of oxygen. She's getting saline at 50 mL an hour. According to the nurses, the patient had an uneventful night. The patient's resting comfortably in bed. Again, she is on 2 L, by nasal cannula. White count 11.2, hemoglobin 13.4, and platelet count 105,000. Sodium 135, potassium 3.9, chlorides 99, CO2 28, BUN 14, creatinine 0.49. Magnesium 1.4. Chest x-rays shows some volume loss in the left lung, with some left-sided consolidation, and a small effusion. Progress note dated 03/17/2023. 57-year-old female, postop day #2, status post robotically assisted thoracoscopic left upper lobectomy for lung cancer. The patient is seen today in room 362. She's currently on room air, but saturations are only 87%. I asked respiratory therapy to place her on oxygen at 2 L. The left-sided chest tube had been removed. She's getting saline at 10 mL an hour. White count is 10.7, hemoglobin 13.1, hematocrit 40, and platelet count 108,000. Sodium 127, potassium 4.2, chlorides 94, CO2 25, BUN 31, and creatinine 0.71. Calcium is 8.2. Magnesium is 2.2. Chest x-ray from today shows postoperative changes, with stable left-sided consolidation and small pleural effusion. No pneumothorax is seen. Progress note dated 03/18/2023. 57-year-old female, postoperative day #3, status post robotically assisted thoracoscopic left upper lobectomy for early stage lung cancer. The patient was outside on the general floor, but came back into the intensive care unit, room 251, because of atrial fibrillation with rapid ventricular response. Currently, she is seen in the ICU, and is currently on 7 L high flow oxygen, and amiodarone at 1 mg/m. We did make her nothing by mouth after midnight, for possible bronchoscopy tomorrow. Her chest x-ray shows partial collapse of the left lung. White count is 10.7, hemoglobin 0.9, hematocrit 38.6, with a platelet count of 141,000. Sodium 127, potassium 4.2, chlorides 94, CO2 22, BUN 50, and creatinine 0.85. Glucose 223. Albumin is 2.9. Chest x-ray shows increasing left-sided consolidation and pleural effusion, with volume loss. There may be a tiny left apical pneumothorax. Progress note dated 03/19/2023. 57-year-old female postop day #4, status post robotically assisted thoracoscopic left upper lobectomy for early stage lung cancer. The patient was out on the general medical floor, but came back to the intensive care unit, because of atrial fibrillation/RVR. The patient's most recent chest x-ray shows near complete collapse of the left lung, so, the patient will undergo bronchoscopy s ometime today. She's currently seen in the intensive care unit, room 251. The patient is on 4 L of oxygen. She's currently on amiodarone at 0.5 mg/m. The bronchoscopy was done at the bedside, with the aid of anesthesia. White count is 8.4, hemoglobin 12.9, hematocrit 36.6, and lately count 95,000. Sodium 127, potassium 5, chlorides 97, CO2 20, BUN 53, creatinine 0.81. Calcium is 8.2. Chest x-ray shows near complete opacification of the left lung. Progress note dated 03/20/2023. 57-year-old female, postop day #5, status post robotically assisted thoracoscopic left upper lobectomy for early stage lung cancer. The patient is seen today in room 251. Yesterday, because of left lung collapse, she underwent bronchoscopy. It was done at the bedside, with the help of anesthesia. [facility] othoracic surgery setting her for a CAT scan without contrast today. She is a 3 S. overflow patient. He is on 2 L. She's not receiving any IV fluids. White count 10.5, hemoglobin 13.2, hematocrit 39.8, and platelet count is normal. Sodium 127, potassium 5.3, chlorides 98, CO2 18, BUN 54, creatinine 0.84. Calcium is 8.4. Chest x-ray shows improved aeration, left upper lobe. Progress note dated 03/21/2023. 57-year-old female, postop day #6, status post robotically assisted thoracoscopic left upper lobectomy for early stage lung cancer. The patient's chest x-ray today shows a developing infiltrate in the right lung, also seen on computed tomography scan, and nearly complete left lung collapse. The patient has had previous bronchoscopy, and will have another one today. He's currently on 2 L. No IV fluids. We did send in a pro-calcitonin level. She is currently not on any antibiotics. No new labs today. Progress note dated 03/22/2023. 57-year-old female, postoperative day #7, status post robotically assisted thoracoscopic left upper lobectomy, for stage I lung cancer. The patient's chest x-ray, is showing a abnormality, in the left lung, consistent with collapse, as well, as an infiltrate, and the right lung, potentially consistent with pneumonia. This is best seen on the most recent computed tomography scan. The patient was to have bronchoscopy yesterday, but it was canceled by anesthesia because of a potassium of 5.5. This morning, her potassium was 5.3, repeat after dextrose and insulin was 5. Unfortunately, the patient has also developed atrial fibrillation with a rapid ventricular response. Anesthesia will decide whether or not move forward with a bronchoscopy. Currently labs include a white count 7.5, hemoglobin 11.8, hematocrit 36.3, and a normal platelet count. Sodium 134, potassium 5, chlorides 99, CO2 26, BUN 36, creatinine 0.71. Calcium is 8.0. The patient's chest x-ray is unchanged. Objective - Vital Signs Vital signs: Vital Signs Temp 98.3 F 03/22/23 08:00 Pulse 68 03/22/23 08:13 Resp 18 03/22/23 08:00 BP 120/57 03/22/23 08:00 Pulse Ox 93 L 03/22/23 07:59 FiO2 60 03/17/23 22:50 Intake & Output 03/21/23 03/22/23 03/22/23 18:59 06:59 18:59 Output Total 500 650 Balance -500 -650 Output: Urine 500 650 Other: Voiding Method Toilet Toilet Bedside Commode # Voids 2 1 # Bowel Movements 2 2 ABP, PAP, CO, CI - Last Documented Arterial Blood Pressure 99/38 - Exam No acute distress, oriented 3. Currently on 2 L high flow nasal cannula. HEENT examination is grossly unremarkable. Mucous membranes are moist. No oral lesions. Neck supple. Full range of motion. No adenopathy thyromegaly or neck vein distention. Cardiovascular examination reveals regular rhythm rate. S1-S2 normal. No S3 or S4. No discernible murmur noted. Heart rate 68 bpm. Lungs reveal diminished bilateral breath sounds, left greater than right. 2 L saturation is 93 %. Abdomen soft bowel sounds are heard. No masses or tenderness. Extremities are intact. No cyanosis clubbing or edema. Skin is without rash or lesion. Neurologic examination is brief but nonfocal. - Labs CBC & Chem 7: 03/22/23 03:25 03/22/23 09:06 Labs: Abnormal Lab Results - Last 24 Hours (Table) 03/21/23 03/21/23 03/21/23 Range/Units 09:30 09:30 11:18 RBC (3.80-5.40) m/uL Sodium 133 L (137-145) mmol/L Potassium 5.5 H (3.5-5.1) mmol/L BUN 50 H (7-17) mg/dL Glucose 162 H (74-99) mg/dL POC Glucose (mg/dL) 231 H (70-110) mg/dL Calcium (8.4-10.2) mg/dL Procalcitonin 0.56 H (0.02-0.09) ng/mL 03/21/23 03/21/23 03/22/23 Range/Units 16:38 20:09 02:12 RBC (3.80-5.40) m/uL Sodium (137-145) mmol/L Potassium (3.5-5.1) mmol/L BUN (7-17) mg/dL Glucose (74-99) mg/dL POC Glucose (mg/dL) 192 H 263 H 196 H (70-110) mg/dL Calcium (8.4-10.2) mg/dL Procalcitonin (0.02-0.09) ng/mL 03/22/23 03/22/23 03/22/23 Range/Units 03:25 03:25 06:41 RBC 3.72 L (3.80-5.40) m/uL Sodium 134 L (137-145) mmol/L Potassium 5.3 H (3.5-5.1) mmol/L BUN 36 H (7-17) mg/dL Glucose 169 H (74-99) mg/dL POC Glucose (mg/dL) 159 H (70-110) mg/dL Calcium 8.0 L (8.4-10.2) mg/dL Procalcitonin (0.02-0.09) ng/mL Assessment and Plan Assessment: Postop day #7, status post robotically assisted thoracoscopic left upper lobectomy with mediastinal lymph node dissection, for early stage NSCLC. S/P bronchoscopy, 03/19/2023, secondary to lung collapse, and removal of airway secretions. New-onset atrial fibrillation with rapid ventricular response, 03/22/2023. Intraoperative bronchoscopy, for airway secretion control. History of chronic obstructive pulmonary disease. History of CVA. History of diabetes mellitus. History of hypertension. History of hyperlipidemia. History of alcohol abuse and heroin abuse. History of hepatitis B and C. Plan: Plan dated 03/15/2023. Dr. June, was kind enough call me about this patient, and give me a heads up so to speak. The patient required intraoperative bronchoscopy, for airway secretion. He suggested that she may need follow-up bronchoscopy, throughout her hospitalization. The patient was seen in the intensive care unit, room 257. The patient has a left-sided chest tube. She continues on oxygen at 4 L. She's getting saline at 50 mL an hour. Labs, x-rays, and medications are reviewed. We spoke to the nurse about this patient. Additional recommendations and suggestions are forthcoming. Prognosis is guarded. Plan dated 03/16/2023. The patient is seen today in room 257. He's postop day #1. The patient's currently on 2 L. She's getting saline at 50 mL an hour. The patient received some narcotic the night, for pain. It did seem to settle her down. She has a left-sided chest tube. Labs, x-rays, medications are all reviewed. We will continue to follow the patient, make recommendations along the way. We do recommend hourly use of the incentive spirometer. The patient has been downgraded by cardiothoracic surgery Plan dated 03/17/2023. The patient is seen today in room 362. She's on room air, but saturations are only 87%. I've asked respiratory to apply oxygen by nasal cannula, at 2 L. The patient currently is on saline at 10 mL an hour. Her chest x-ray stable. Labs, x-rays, and medications are reviewed. We will encourage the patient continue to deep breathe, cough, and clear secretions, and use the incentive spirometer, every hour while awake. The patient is stable, but prognosis is guarded. Plan dated 03/18/2023. The patient is much more hypoxemic than she was yesterday. The patient's currently on between 5-7 L oxygen, by nasal cannula. In addition, the patient developed atrial fibrillation with RVR, and was transferred back to the intens yadira care unit. She's currently on amiodarone at 1 mg/m. Labs, x-rays, and medications are reviewed. Chest x-rays a bit worse and it has been. She may require bronchoscopy tomorrow. Labs, x-rays, and medications are reviewed. We will continue to follow the patient, and make recommendations along the way. Prognosis is guarded. Plan dated 03/19/2023. The patient's currently on 4 L of oxygen. Her chest x-rays reviewed, and it is decided, to do bronchoscopy bedside, with the aid of anesthesia today. The patient continues on amiodarone at 0.5 mg/m, for atrial fibrillation and RVR. Labs, x-rays, and medications are reviewed. The patient's overall prognosis remains guarded. The patient is postoperative day #4, status post robotically assisted thoracoscopic left upper lobectomy for early stage lung cancer. Prognosis is guarded. Medications are reviewed. We will continue to follow the patient, and make recommendations along the way. Plan dated 03/20/2023. The patient has been weaned down to 2 L. She's feeling much better. She sitting in a chair, next to her hospital bed. Patient's on 2 L. No IV fluids. The patient is going for a CAT scan of the chest today, ordered by cardiothoracic surgery, without contrast. The patient had bronchoscopy, and BAL yesterday, at the bedside. She is postop day #5. Labs, x-rays, and medications are reviewed. Prognosis is guarded. We encourage the patient to deep breathe, cough, clear secretions, and use the incentive spirometer, every hour. Plan dated 03/21/2023. The patient's currently on 2 L of oxygen. Saturations in the mid 90s. Chest x- ray shows near complete opacification of the left lung. Computed tomography scan of the chest shows developing infiltrate in the right lung. We did send out a pro-calcitonin level. Labs, x-rays, and medications are reviewed. Overall prognosis remains guarded. The patient is not doing well on her incentive spirometer. We will continue to follow make recommendations along the way. Plan dated 03/22/2023. This patient has been nothing but difficult after her robotically-assisted left upper lobectomy. She developed collapse of the left lung, and required bronchoscopy a few days ago. In addition, the most recent computed tomography scan shows a developing infiltrate in the right lung. In addition, yesterday she developed hyperkalemia, and today, atrial fibrillation with RVR. Labs, x- rays, and medications are reviewed. The patient has not been really doing very well on her incentive spirometry, or deep breathing. We will continue to follow make recommendations along the way. Anesthesia has not made a decision about whether or not to proceed with bronchoscopy today. Prognosis is guarded. Time with Patient: Greater than 30
[2023-03-22] MEDS ORDERED: DEXTROSE 5% IN WATER 250 ML with AMIODARONE 300 MG IV ONE (10:00)
[2023-03-22] MEDS: ENOXAPARIN 40 MG/0.4 ML SYRINGE SQ SCH (10:07)
[2023-03-22] MEDS: SODIUM CHLORIDE TAB 1 GM TAB PO SCH ×2 (11:11→21:05)
[2023-03-22] MEDS: GABAPENTIN 400 MG CAP PO SCH ×3 (11:11→21:05)
[2023-03-22] MEDS: METOPROLOL TARTRATE 12.5 MG TAB PO SCH ×2 (11:11→21:05)
[2023-03-22] MEDS: FOLIC ACID 1 MG TAB PO SCH (11:12)
[2023-03-22] MEDS: THIAMINE 100 MG TAB PO SCH (11:12)
[2023-03-22] MEDS: MAGNESIUM OXIDE 400 MG TAB PO SCH ×2 (11:12→21:05)
[2023-03-22] MEDS: ATORVASTATIN 10 MG TAB PO SCH (11:12)
[2023-03-22] MEDS: NICOTINE 7MG/24HR PATCH TRANSDERM SCH (11:12)
--- NOTE | 2023-03-22 11:16 | XR ---
EXAMINATION TYPE: XR chest 1V portable DATE OF EXAM: 03/22/2023 Comparison: 03/21/2023 Clinical History: 57-year-old female Status post left upper lobectomy Findings: Ongoing near complete white out of the left hemithorax. Aeration is slightly improving at the apex no w. Volume loss in the left hemithorax with shift of the heart into the left hemithorax is unchanged. Impression: Similar shift of the heart into the left hemithorax secondary to volume loss and near complete white out of the left hemithorax. Aeration is slightly improving at the left apex.
--- NOTE | 2023-03-22 11:32 | P.PN ---
Subjective Progress Note Date: 03/22/23 The patient is a 57-year-old female who underwent left upper lobe lobectomy on 03/15 for non-small cell lung carcinoma. Cardiology was consulted postoperatively for episodes of atrial fibrillation. She had received an amiodarone bolus and drip, where she converted back to sinus mechanism. She had maintain on low-dose beta blockers while in the ICU with baseline sinus bradycardia in the 40s. Nursing staff recontacted our service today for A. fib with RVR. Heart rates are in the 150s. Patient was interviewed and examined resting comfortably in bed. She denies any chest discomfort or shortness of breath. GENERAL: Well-appearing, well-nourished and in no acute distress. NECK: Supple without JVD or thyromegaly. LUNGS: Breath sounds diminished to auscultation bilaterally. Respiration equal and unlabored. No wheezes, rales or rhonchi. HEART: Irregular rate and rhythm without murmurs, rubs or gallops. S1 and S2 heard. EXTREMITIES: Normal range of motion, no edema. No clubbing or cyanosis. P eripheral pulses intact and strong. VITALS: Blood pressure 97/69, heart rate 160, respiratory rate 18, SpO2 95% on 2 L nasal cannula TELEMETRY: A. fib with RVR LABS: WBC 7.5, hemoglobin 11.8, hematocrit 36.3, platelet 216, sodium 134, potassium 5.0, BUN 36, creatinine 0.71 IMPRESSION: None small cell lung carcinoma Status post lobectomy Postoperative paroxysmal atrial fibrillation Hypertension Hyperlipidemia Diabetes, type II PLAN: 300 mg amiodarone bolus, slow administration followed by continuous infusion per protocol Continue low-dose beta blockers Monitor for bradycardia postconversion Further recommendations to be based on clinical course I am dictating on behalf of Dr Ozzie Herman's history/physical and assessment/plan. Objective - Vital Signs Vital signs: Vital Signs Temp 98.3 F 03/22/23 08:00 Pulse 160 H 03/22/23 10:17 Resp 18 03/22/23 10:17 BP 97/69 03/22/23 10:17 Pulse Ox 95 03/22/23 10:17 FiO2 60 03/17/23 22:50 Intake & Output 03/21/23 03/22/23 03/22/23 18:59 06:59 18:59 Output Total 500 650 Balance -500 -650 Output: Urine 500 650 Other: Voiding Method Toilet Toilet Bedside Commode # Voids 2 1 # Bowel Movements 2 2 ABP, PAP, CO, CI - Last Documented Arterial Blood Pressure 99/38 - Labs CBC & Chem 7: 03/22/23 03:25 03/22/23 09:06 Labs: Abnormal Lab Results - Last 24 Hours (Table) 03/21/23 03/21/23 03/21/23 Range/Units 09:30 16:38 20:09 RBC (3.80-5.40) m/uL Sodium (137-145) mmol/L Potassium (3.5-5.1) mmol/L BUN (7-17) mg/dL Glucose (74-99) mg/dL POC Glucose (mg/dL) 192 H 263 H (70-110) mg/dL Calcium (8.4-10.2) mg/dL Procalcitonin 0.56 H (0.02-0.09) ng/mL 03/22/23 03/22/23 03/22/23 Range/Units 02:12 03:25 03:25 RBC 3.72 L (3.80-5.40) m/uL Sodium 134 L (137-145) mmol/L Potassium 5.3 H (3.5-5.1) mmol/L BUN 36 H (7-17) mg/dL Glucose 169 H (74-99) mg/dL POC Glucose (mg/dL) 196 H (70-110) mg/dL Calcium 8.0 L (8.4-10.2) mg/dL Procalcitonin (0.02-0.09) ng/mL 03/22/23 Range/Units 06:41 RBC (3.80-5.40) m/uL Sodium (137-145) mmol/L Potassium (3.5-5.1) mmol/L BUN (7-17) mg/dL Glucose (74-99) mg/dL POC Glucose (mg/dL) 159 H (70-110) mg/dL Calcium (8.4-10.2) mg/dL Procalcitonin (0.02-0.09) ng/mL
[2023-03-22] MEDS ORDERED: AMIODARONE 360 MG in DEXTROSE 5% IN WATER 200 ML IV ONE ×2 (12:00)
[2023-03-22 12:19] LABS: Glucose,Whole Blood 227 mg/dL (70-110)
--- NOTE | 2023-03-22 14:54 | P.PN ---
Subjective Progress Note Date: 03/22/23 57-year-old female came in for elective pulmonary lobectomy for lung cancer found to have highly elevated blood sugars of 500 because of which patient was admitted patient last hemoglobin A1c was more than a year ago at that time it was 7.5 it appears patient may be noncompliant. Patient admits to drinking vodka with watermelon juice last night. Patient does have history of COPD continues to smoke 5 cigarettes per day is bit hypoxic. Chest x-ray showed some interstitial prominence although clinically patient doesn't appear to be in CHF patient does take 20 mg of Lasix at home patient has chronic venous stasis dermatosis of both legs and will be dermatitis. Patient is on Trulicity, 20 units of long-acting insulin along with metformin at home for diabetes with us. Patient blood sugars is presently about 300. Patient had a chest xray showing 1.2 cm let upper lobe pulmonary mass. She will be going for lung resection on Wednesday. --- postop day #4, status post robotically assisted thoracoscopic left upper lobectomy for early stage lung cancer. The patient was out on the general medical floor, but came back to the intensive care unit, because of atrial fibrillation/RVR. The patient's most recent chest x-ray shows near complete collapse of the left lung, so, the patient will undergo bronchoscopy sometime today. She's currently seen in the intensive care unit, room 251. The patient is on 4 L of oxygen. She's currently on amiodarone at 0.5 mg/m. The bronchoscopy was done at the bedside, with the aid of anesthesia. White count is 8.4, hemoglobin 12.9, hematocrit 36.6, and lately count 95,000. Sodium 127, potassium 5, chlorides 97, CO2 20, BUN 53, creatinine 0.81. Calcium is 8.2. Chest x-ray shows near complete opacification of the left lung. 03/20/2023 Patient is seen and evaluated members at bedside; postop day #5, status post robotically assisted thoracoscopic left upper lobectomy for early stage lung cancer. --Patient underwent bronchoscopy yesterday, because of left lung collapse. It was done at the bedside, with the help of anesthesia. Cardiothoracic surgery setting her for a CAT scan without contrast today. She is a 3 S. overflow patient. He is on 2 L. She's not receiving any IV fluids. White count 10.5, hemoglobin 13.2, hematocrit 39.8, and platelet count is normal. Sodium 127, potassium 5.3, chlorides 98, CO2 18, BUN 54, creatinine 0.84. Calcium is 8.4. Chest x-ray shows improved aeration, left upper lobe. Prognosis remains guarded 03/21/2023 Patient is seen and evaluated in room at bedside; postop day #6, status post robotically assisted thoracoscopic left upper lobectomy for early stage lung cancer. The patient's chest x-ray today shows a developing infiltrate in the right lung, also seen on computed tomography scan, and nearly complete left lung collapse. The patient has had previous bronchoscopy, and will have another one today. He's currently on 2 L. No IV fluids. We did send in a pro-calcitonin level. She is currently not on any antibiotics. 24 hour interval change 03/22/2023 Patient is seen and evaluated in room at bedside; sitting up in bedside chair; postoperative day #7, status post robotically assisted thoracoscopic left upper lobectomy, for stage I lung cancer. -- chest x-ray, is showing a abnormality, in the left lung, consistent with collapse, as well, as an infiltrate, and the right lung, potentially consistent with pneumonia, confirmed on computed tomography scan. The patient was scheduled for bronchoscopy yesterday, but it was canceled by anesthesia because of a potassium of 5.5. This morning, her potassium was 5.3, repeat after dextrose and insulin was 5. Unfortunately, the patient has also developed atrial fibrillation with a rapid ventricular response. Anesthesia will decide whether or not move forward with a bronchoscopy. -- labs include a white count 7.5, hemoglobin 11.8, hematocrit 36.3, and a normal platelet count. Sodium 134, potassium 5, chlorides 99, CO2 26, BUN 36, creatinine 0.71. Calcium is 8.0. The patient's chest x-ray is unchanged. Objective - Vital Signs Vital signs: Vital Signs Temp 98.3 F 03/22/23 08:00 Pulse 160 H 03/22/23 10:17 Resp 18 03/22/23 10:17 BP 97/69 03/22/23 10:17 Pulse Ox 95 03/22/23 10:17 FiO2 60 03/17/23 22:50 Intake & Output 03/21/23 03/22/23 03/22/23 18:59 06:59 18:59 Output Total 500 650 Balance -500 -650 Output: Urine 500 650 Other: Voiding Method Toilet Toilet Bedside Commode # Voids 2 1 # Bowel Movements 2 2 ABP, PAP, CO, CI - Last Documented Arterial Blood Pressure 99/38 - Exam GENERAL: The patient is alert and oriented x3, not in any acute distress. Well developed, well nourished. HEENT: Pupils are round and equally reacting to light. EOMI. No scleral icterus. No conjunctival pallor. Normocephalic, atraumatic. No pharyngeal erythema. No thyromegaly. CARDIOVASCULAR: S1 and S2 present. No murmurs, rubs, or gallops. -PULMONARY: Chest is clear to auscultation, no wheezing , no crackles. chest tube in place ABDOMEN: Soft, nontender, nondistended, normoactive bowel sounds. No palpable organomegaly. MUSCULOSKELETAL: No joint swelling or deformity. EXTREMITIES: No cyanosis, clubbing, or pedal edema. NEUROLOGICAL: Gross neurological examination did not reveal any focal deficits. SKIN: No rashes. no petechiae. - Labs CBC & Chem 7: 03/22/23 03:25 03/22/23 09:06 Labs: Abnormal Lab Results - Last 24 Hours (Table) 03/21/23 03/21/23 03/21/23 Range/Units 09:30 16:38 20:09 RBC (3.80-5.40) m/uL Sodium (137-145) mmol/L Potassium (3.5-5.1) mmol/L BUN (7-17) mg/dL Glucose (74-99) mg/dL POC Glucose (mg/dL) 192 H 263 H (70-110) mg/dL Calcium (8.4-10.2) mg/dL Procalcitonin 0.56 H (0.02-0.09) ng/mL 03/22/23 03/22/23 03/22/23 Range/Units 02:12 03:25 03:25 RBC 3.72 L (3.80-5.40) m/uL Sodium 134 L (137-145) mmol/L Potassium 5.3 H (3.5-5.1) mmol/L BUN 36 H (7-17) mg/dL Glucose 169 H (74-99) mg/dL POC Glucose (mg/dL) 196 H (70-110) mg/dL Calcium 8.0 L (8.4-10.2) mg/dL Procalcitonin (0.02-0.09) ng/mL 03/22/23 Range/Units 06:41 RBC (3.80-5.40) m/uL Sodium (137-145) mmol/L Potassium (3.5-5.1) mmol/L BUN (7-17) mg/dL Glucose (74-99) mg/dL POC Glucose (mg/dL) 159 H (70-110) mg/dL Calcium (8.4-10.2) mg/dL Procalcitonin (0.02-0.09) ng/mL Assessment and Plan Assessment: -Lung cancer was recently diagnosed with non small cell and is now status post upper lobectomy with cardiothoracic surgery following closely.. Patient monitored in the ICU postoperatively. -Diabetes mellitus with hyperglycemia -Hypotension, improved -Hypovolemic hypernatremia -Mild hypoxia probably secondary to emphysema patient is presently not in COPD exacerbation, mention of interstitial prominence, BNP was 166 patient is on room air. -COPD without any acute exacerbation -hyperlipidemia -Hypertension -hypervascular disease -continued nicotine use: Counseling was provided Plan: Continue with amiodarone for cardiothoracic surgery team Change insulin to Levemir 30 units daily and NovoLog 12 units with meals with insulin sliding scale and close monitoring of sugar. Chest tube was removed by cardiothoracic surgery team Pulmonary consult on the case Patient started on sodium tablets We recommend fluid restriction, currently 1500 per day Labs and medication were reviewed.. Continue same treatment. Continue with symptomatic treatment. Resume home medication. Monitor labs and vitals. DVT and GI prophylaxis. Further recommendations as per clinical course of the tj best DVT prophylaxis: Subcutaneous Lovenox GI Prophylaxis: Pepcid PT/OT: Home health care Prognosis is guarded
[2023-03-22 16:35] LABS: Glucose,Whole Blood 143 mg/dL (70-110)
[2023-03-22] MEDS: AMIODARONE 450 MG in DEXTROSE 5% IN WATER 250 ML IV SCH ×2 (17:48)
[2023-03-22 19:56] LABS: Glucose,Whole Blood 103 mg/dL (70-110)
[2023-03-23] MEDS: ACETAMINOPHEN TAB 325 MG TAB PO PRN ×3 (00:10→08:26)
[2023-03-23 02:04] LABS: Glucose,Whole Blood 180 mg/dL (70-110)
[2023-03-23] MEDS: INSULIN ASPART (NovoLOG) 100 UNIT/ML VIAL SQ SCH ×8 (02:06→20:33)
[2023-03-23 06:15] LABS: Glucose,Whole Blood 134 mg/dL (70-110)
[2023-03-23] MEDS: INSULIN DETEMIR (LEVEMIR) 100 UNIT/ML SYR SQ SCH (06:33)
[2023-03-23] MEDS: HYDROcodone/APAP 5-325MG 1 EACH TAB PO PRN ×3 (06:35→21:10)
[2023-03-23] MEDS: PANTOPRAZOLE 40 MG TABLET PO SCH (06:35)
--- NOTE | 2023-03-23 07:48 | XR ---
EXAM: XR chest 1V portable CLINICAL INDICATION:Female, 57 years old with history of left upper lobectomy; [facility] COMPARISON: 03/22/2023 and before TECHNIQUE: Chest single view. FINDINGS: Lines/tubes/devices: EKG leads overlie the chest. No indwelling lines are seen. Cardiomediastinum: Cardiomediastinal silhouette is obscured on the left. Cardiac silhouette size is indeterminate. Mediastinal silhouette appears shifted and the trachea katharina d towards the left. Cut-off appearance of the left mid to distal mainstem bronchus. Atherosclerotic c alcifications of the aorta. Vasculature: No increased pulmonary vasculature. Lungs/pleura: Right lung appears hyperinflated with mild interstitial coarsening. Hazy right basilar opacity with b lunting of the right costophrenic angle. No right-sided pneumothorax. Evidence of volume loss of the left with near complete opacification of the left hemithorax, slightly worse than the last study. Min imal residual aerated lung towards left lung apex, a small amount of pneumothorax cannot be excluded. Bones/soft tissues: Bony thorax appears grossly unchanged as seen. Regional soft tissues appear unremarkable. IMPRESSION: 1. Near complete opacification of the left hemithorax. Likely considerations include atelectasis, pa renchymal consolidation, and/or pleural effusion. 2. Mildly hyperinflated right lung with right basilar pleural/parenchymal opacity suggesting small t o moderate pleural effusion with atelectasis/airspace disease.
[2023-03-23] MEDS: NON FORMULARY DRUG (Dulaglutide [Trulicity] 1.5 MG/0.5 ML Each) SQ SCH (08:09)
[2023-03-23] MEDS: AMIODARONE 450 MG in DEXTROSE 5% IN WATER 250 ML IV SCH ×4 (08:15→09:51)
[2023-03-23] MEDS: ATORVASTATIN 10 MG TAB PO SCH (08:25)
[2023-03-23] MEDS: NICOTINE 7MG/24HR PATCH TRANSDERM SCH (08:25)
[2023-03-23] MEDS: SODIUM CHLORIDE TAB 1 GM TAB PO SCH ×2 (08:26→20:41)
[2023-03-23] MEDS: ENOXAPARIN 40 MG/0.4 ML SYRINGE SQ SCH (08:26)
[2023-03-23] MEDS: GABAPENTIN 400 MG CAP PO SCH ×3 (08:26→21:08)
[2023-03-23] MEDS: FOLIC ACID 1 MG TAB PO SCH (08:26)
[2023-03-23] MEDS: MAGNESIUM OXIDE 400 MG TAB PO SCH ×2 (08:26→20:41)
[2023-03-23] MEDS: METOPROLOL TARTRATE 12.5 MG TAB PO SCH ×3 (08:26→20:38)
[2023-03-23] MEDS: THIAMINE 100 MG TAB PO SCH (08:26)
[2023-03-23] MEDS: IPRATROPIUM-ALBUTEROL 3 ML NEB IH SCH ×4 (08:53→21:16)
[2023-03-23] MEDS: SYMBICORT 80-4.5 MCG INHALER INHALATION SCH ×2 (08:53→21:16)
[2023-03-23] MEDS: ACETYLCYSTEINE 800 MG/4 ML VIAL INHALATION SCH ×4 (08:54→21:17)
[2023-03-23 09:14] LABS: Basophils % (A) 0 %; Eosinophils # (A) 0.1 k/uL (0-0.7); Eosinophils % (A) 2 %; HCT 37.5 % (34.0-46.0); Hypochromasia Slight; Lymphocytes % (A) 26 %; MCH 31.3 pg (25.0-35.0); MCHC 32.1 g/dL (31.0-37.0); MCV 97.6 fL (80.0-100.0); Mean Platelet Volume 8.4; Monocytes # (A) 0.6 k/uL (0-1.0); Monocytes % (A) 7 %; Neutrophils % (A) 63 %; Platelet Count 258 k/uL (150-450); RBC 3.84 m/uL (3.80-5.40); WBC 7.9 k/uL (3.8-10.6)
--- NOTE | 2023-03-23 10:16 | P.PN ---
Subjective Progress Note Date: 03/23/23 Principal diagnosis: Insulin dependent diabetes with poor glycemic control, hyperglycemia, hypomagnesemia, left upper lobe mass positive for well-differentiated adenocarcinoma. History of current tobacco dependence, COPD, daily EtOH use, hypertension, hyperlipidemia, stroke in 2016 with right-sided weakness, hepatitis B and C, bipolar depression, IV heroin use with last use August 2018. POD#8 Robotic assisted thoracoscopic left upper lobectomy with mediastinal lymph node dissection, fiberoptic bronchoscopy for evacuation of inspissated sputum. Paroxysmal atrial fibrillation, known potential complication of lung surgery. Hypotension although MAP stable, not requiring pressors. The patient was seen and examined in follow-up today 03/23/2023 at her bedside on the third floor cardiac stepdown unit. She is currently sitting up to bedside chair, is awake, alert, oriented 3 and is in no acute apparent distress. She denies any complaints of pain or shortness of breath at this time. She reports she has been up ambulating in the intensive care unit hallway yesterday and in the cardiac stepdown unit hallway this morning. Oxygen saturations are 100% on 3 L nasal cannula and she is achieving 1000 mL on her incentive spirometry with encouragement. She was scheduled for a bedside bronchoscopy yesterday to be performed by Dr. Reynolds from pulmonary/critical care medicine, although the patient went into atrial fibrillation with RVR and the procedure was delayed. She is scheduled today for a bronchoscopy to be performed at her bedside by Dr. Lucia around noon. Bedside telemetry is currently showing sinus bradycardia heart rate 58 BPM, no atrial fibrillation r eported at this time. She remains on amiodarone drip at 0.5 mg/m per protocol managed by cardiology. She remained hemodynamically stable and is currently on no inotropic pressor support. Laboratory and chest x-ray results reviewed. Patient has had a productive cough with sputum Gram stain sent which currently shows telemetry report of few polymorphonuclear leukocytes, rare epithelial cells, moderate gram-positive cocci in chains, few yeast, few gram-negative bacilli. WBC count this morning is 7.9 and she has been afebrile in the last 24 hours. Objective - Vital Signs Vital signs: Vital Signs Temp 97.7 F 03/23/23 08:00 Pulse 122 H 03/23/23 09:59 Resp 18 03/23/23 08:00 BP 121/63 03/23/23 08:00 Pulse Ox 97 03/23/23 08:54 FiO2 60 03/17/23 22:50 Intake & Output 03/22/23 03/23/23 03/23/23 18:59 06:59 18:59 Intake Total 400 250 Output Total 400 Balance 0 250 Weight 87.6 kg Intake: Intake, IV Titration 250 Amount Amiodarone 450 mg In 250 Dextrose 5% in Water 250 ml @ 0.5 MG/MIN 16.667 mls/hr IV .Q15H [facility] Rx#: [id number] Oral 400 Output: Urine 400 Other: Voiding Method Toilet Toilet Toilet Bedside Commode Bedside Commode Bedside Commode # Voids 1 1 # Bowel Movements 1 ABP, PAP, CO, CI - Last Documented Arterial Blood Pressure 99/38 - Exam CONSTITUTIONAL: Appears comfortable, and cooperative. RESPIRATORY: Lungs sounds diminished to her left lower lobe, essentially clear to the right lobes. Respirations symmetrical, nonlabored. Currently on 3 L nasal cannula with oxygen saturation 100%. Able to achieve 1000 ml on her incentive spirometry. Strong cough. CARDIOVASCULAR: Regular rhythm and bradycardic rate. S1 and S2 present, negati ve for S3, gallop or murmur. Bedside telemetry is showing sinus bradycardia heart rate 58 BPM. Palpable peripheral pulses bilaterally. No edema present. No calf pain or tenderness noted. SCDs present. GASTROINTESTINAL: Abdomen soft, nontender, and nondistended. Active bowel sounds present 4 quadrants. Tolerating diet. Passing flatus. Bowel movement 03/21/2023 GENITOURINARY: Patient continues to void. INTEGUMENTARY: Skin is warm and dry, no clubbing or cyanosis is present. Left chest incisions clean, dry and approximated. NEUROLOGIC: Cranial nerves II through XII intact. No focal deficits. MUSKULOSKELETAL: Able to move all extremities, strength equal bilaterally. PSYCHIATRIC: Alert and oriented to person place and time, flat affect. - Allied health notes Allied health notes reviewed: nursing - Labs CBC & Chem 7: 03/23/23 07:37 03/22/23 09:06 Labs: Abnormal Lab Results - Last 24 Hours (Table) 03/22/23 03/22/23 03/23/23 Range/Units 12:18 16:33 01:59 POC Glucose (mg/dL) 227 H 143 H 180 H (70-110) mg/dL 03/23/23 Range/Units 06:13 POC Glucose (mg/dL) 134 H (70-110) mg/dL Microbiology - Last 24 Hours (Table) 03/22/23 00:33 Gram Stain - Preliminary Sputum - Imaging and Cardiology Chest x-ray: report reviewed, image reviewed Assessment and Plan Assessment: Insulin dependent diabetes with poor glycemic control, hyperglycemia, A1c 9.8% Hypomagnesemia Left upper lobe mass positive for well-differentiated adenocarcinoma, status post left upper lobectomy Current tobacco dependence Moderate COPD, preoperative FEV1 54% of predicted, DLCO 36% of predicted Current daily EtOH use Hypertension, currently hypotensive Hyperlipidemia Stroke in 2016 with right-sided weakness Hepatitis B and C Bipolar depression History of IV heroin use 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 Reynolds Plan: Continue metoprolol tartrate 12.5 mg by mouth twice a day with hold parameters. No anticoagulation due to recent surgery. Amiodarone infusing per protocol, amiodarone management per cardiology recommendations. Continue to improve blood glucose control, insulin adjustments made by primary service. Increase activity, ambulate as tolerated. Patient should be out of bed for all meals, she should be out of bed the majority of the day and use the bed for s leeping at nighttime only Encourage incentive spirometry and flutter valve 10x every hour while awake. Bronchodilators per pulmonology. Monitor for alcohol withdrawal, continue thiamine and folic acid. Continue Nicotine patch. Smoking cessation counseling and education reinforced. Continue Tylenol for pain control. Continue to monitor daily chest x-rays and labs. Sputum for Gram stain and C&S pulmonary results show few polymorphonuclear leukocytes, rare epithelial cells, moderate gram-positive cocci in chains, few yeast, few gram-negative bacilli. Nothing by mouth since midnight for bronchoscopy to be completed by Dr. Lucia today. Medical management of other comorbidities per internal medicine Time with Patient: Greater than 30
[2023-03-23] MEDS ORDERED: DEXTROSE 5% IN WATER 100 ML with AMIODARONE 150 MG IV ONE (10:24)
[2023-03-23] MEDS ORDERED: PROPOFOL 10 MG/ML 20 ML VIAL IV ONE (10:40)
[2023-03-23] MEDS ORDERED: fentaNYL (PF) 50 MCG/ML 2 ML AMP ONE (10:40)
[2023-03-23] MEDS ORDERED: LIDOCAINE 2% (PF) 20 MG/ML 5 ML VIAL ONE (10:40)
[2023-03-23] MEDS ORDERED: SODIUM CHLORIDE 0.9% 500 ML 500 ML IV ONE (10:43)
[2023-03-23 11:03] LABS: African American GFR (CKD) >90 (>60 ml/min/1.73 sqM); Anion Gap 9 mmol/L; Blood Urea Nitrogen 20 mg/dL (7-17); Carbon Dioxide 26 mmol/L (22-30); Chloride 100 mmol/L (98-107); Glucose 139 mg/dL (74-99); Non-African American GFR(CKD) >90 (>60 ml/min/1.73 sqM); Sodium 135 mmol/L (137-145)
[2023-03-23 11:29] LABS: Glucose,Whole Blood 188 mg/dL (70-110)
--- NOTE | 2023-03-23 11:52 | P.PN ---
Subjective Progress Note Date: 03/23/23 This is a pleasant 57-year-old female who underwent left upper lobe lobectomy on 1217 for non-small cell lung cancer. She has a history of nicotine dependence, hypertension and diabetes as well as hyperlipidemia. We were consulted postoperatively for atrial fibrillation. She was initiated on IV amiodarone with a bolus and drip. She remains on amiodarone drip was in sinus mechanism until this morning and went into atrial fibrillation with RVR. She has not been anticoagulated due to bronchoscopy scheduled for this morning. Remains in atrial fibrillation. At the time of my examination she is resting comfortably in a recliner at the bedside. Complains of her chest feeling sore. She does have some very mild shortness of breath. She is on 2 L nasal cannula. Denies any orthopnea or PND. Objective - Vital Signs Vital signs: Vital Signs Temp 97.7 F 03/23/23 08:00 Pulse 122 H 03/23/23 09:59 Resp 18 03/23/23 08:00 BP 121/63 03/23/23 08:00 Pulse Ox 97 03/23/23 08:54 FiO2 60 03/17/23 22:50 Intake & Output 03/22/23 03/23/23 03/23/23 18:59 06:59 18:59 Intake Total 400 450 Output Total 400 300 Balance 0 150 Weight 87.6 kg Intake: IV 200 Intake, IV Titration 250 Amount Amiodarone 450 mg In 250 Dextrose 5% in Water 250 ml @ 0.5 MG/MIN 16.667 mls/hr IV .Q15H [facility] Rx#: [id number] Oral 400 Output: Urine 400 300 Other: Voiding Method Toilet Toilet Toilet Bedside Commode Bedside Commode Bedside Commode # Voids 1 1 1 # Bowel Movements 1 ABP, PAP, CO, CI - Last Documented Arterial Blood Pressure 99/38 - Exam GENERAL: Well-appearing, well-nourished and in no acute distress. NECK: Supple without JVD or thyromegaly. LUNGS: Breath sounds diminished to auscultation bilaterally. Respiration equal and unlabored. No wheezes, rales or rhonchi. HEART: Irregular rate and rhythm without murmurs, rubs or gallops. S1 and S2 heard. EXTREMITIES: Normal range of motion, no edema. No clubbing or cyanosis. Peripheral pulses intact. - Labs CBC & Chem 7: 03/23/23 07:37 03/23/23 07:37 Labs: Abnormal Lab Results - Last 24 Hours (Table) 03/22/23 03/22/23 03/23/23 Range/Units 12:18 16:33 01:59 Sodium (137-145) mmol/L BUN (7-17) mg/dL Glucose (74-99) mg/dL POC Glucose (mg/dL) 227 H 143 H 180 H (70-110) mg/dL Calcium (8.4-10.2) mg/dL 03/23/23 03/23/23 03/23/23 Range/Units 06:13 07:37 11:27 Sodium 135 L (137-145) mmol/L BUN 20 H (7-17) mg/dL Glucose 139 H (74-99) mg/dL POC Glucose (mg/dL) 134 H 188 H (70-110) mg/dL Calcium 8.0 L (8.4-10.2) mg/dL Microbiology - Last 24 Hours (Table) 03/22/23 00:33 Gram Stain - Preliminary Sputum Assessment and Plan Assessment: Non small cell lung carcinoma Status post lobectomy paroxysmal atrial fibrillation Hypertension Hyperlipidemia Diabetes, type II Plan: From cardiology's perspective continue beta ana maría. We will switch her to by mouth amiodarone 400 mg by mouth twice a day. Her [id number] score is at least 3. She will require long-term anticoagulation. This will be initiated once okayed by cardiothoracic surgery post bronchoscopy. We will continue to follow the patient provide further recommendations accordingly. [employer] note has been reviewed, I agree with a documented findings and plan of care. Patient was seen and examined.
--- NOTE | 2023-03-23 11:59 | P.PN ---
Subjective Patient is a 57-year-old female came in for elective pulmonary lobectomy for lung cancer found to have highly elevated blood sugars of 500 because of which patient was admitted patient last hemoglobin A1c was more than a year ago at that time it was 7.5 it appears patient may be noncompliant. Patient admits to drinking vodka with watermelon juice last night. Patient does have history of COPD continues to smoke 5 cigarettes per day is bit hypoxic. Chest x-ray showed some interstitial prominence although clinically patient doesn't appear to be in CHF patient does take 20 mg of Lasix at home patient has chronic venous stasis dermatosis of both legs and will be dermatitis. Patient is on Trulicity, 20 units of long-acting insulin along with metformin at home for diabetes with us. Patient blood sugars is presently about 300. Patient had a chest xray showing 1.2 cm let upper lobe pulmonary mass. She will be going for lung resection on . 03/12/2023 Patient sitting up in bed today. Needs to be up in the chair for the day. Patien t verbalized understanding. Blood glucose remains elevated. Levemir will be increased and scheduled insulin added. 03/13/2023 Patient evaluated [facility]. She is sitting up in the chair no acute complaints overnight. She is scheduled to undergo elective lobe resection on Wednesday. Blood glucose remains elevated at this time it has come down into the 190s however back up to 365. She is on a combination of sliding scale insulin as well as 3 units of scheduled and 25 units daily Levemir. These have been increased today. 03/14/2023 Patient is evaluated today, sitting up in chair. Patient to undergo elective lobe resection on wednesday with CT surgery. No acute complaints. Blood glucose remains elevated but overall improved, fluctuating between 188-312 this afternoon. 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 She will be monitored postoperatively in the ICU. Blood glucose this AM down to 150 and 176. Still fluctuating in to the high 200s. Will continue with current regimen as patient will be NPO for surgery to avoid hypoglycemia. If she remains elevated insulin will be further increased. 03/16/2023 Patient is evaluated today in the ICU postoperative day #1 left upper lobectomy. Patient has left CT in place with chest xray today showing left-sided consolidation and small effusion with no sizable pneumothorax. Labs showing white count of 11.2, sodium level of 35. BUN 14, creatinine 0.49. Magnesium 1.4. Glucose has been slowly improving. Patient has been afebrile, heart rate 80s, blood pressure on the lower side 95/38. On 2L of oxygen. 03/17/2023 Patient presents with non-small lung cancer of the left upper lobe status post robotic assisted thoracoscopic left upper lobectomy on 03/15. Today postop day #2. Patient was transferred out of the ICU to the select unit today morning. Patient was lying in bed looks tired. Left chest tube in place but later on her chest tube was removed. Chest x-ray showing no sizable pneumothorax but persistent postop changes with a stable left lower lobe consolidation. Patient blood pressure on the low normal side about 88/51, no dizziness. Currently she is on 2 L oxygen via nasal cannula. She had a fever on 03/14 but no more fevers since then. She has mild leukocytosis coming down to 11.2 down to 10.7. Liver enzymes mildly elevated. Sodium 127 Glucose more than 200, she is on Lantus 15 units at home and she was taken here as of yesterday Levemir 25 units daily and 8 units at bedtime, we change and fat to Levemir 30 units daily starting tomorrow. Also she is on insulin sliding scale. We going to increase her NovoLog 5 units with meals up to 9 units and change her Levemir to 30 units daily with close monitoring of her glucose. Her amiodarone drip was stopped and switched to oral amiodarone. 03/18/2023 Patient become hypotensive overnight, her night, but time murmurs held her beta ana maría and amiodarone, she developed tachycardia with heart rate was 120-1:30, she was also hypotensive blood pressure 83/73 therefore patient was transferred back to the intensive care unit. This morning she is awake and alert, in mild distress due to severe weakness. She denies chest pain or dyspnea this morning. She was started back on amiodarone drip by greens picker and blood pressure improved 113/61. Heart rate is also improved but EKG today showed sinus rhythm at 72 with occasional PVCs She received 1 L of normal saline Chest x-ray showing slightly worse consolidation especially on the left side probably due to fluid accumulation. Patient does not have a fever, she has mild leukocytosis which is a stable. No strong evidence of infection patient currently off antibiotic. Sodium 127 most likely hypovolemic hyponatremia. She remains on amiodarone drip, Lovenox for DVT prophylaxis After sugars still more than 200, we will continue with Levemir 30 units and increase NovoLog 9 up to 12 units with meals Chest the tube already removed yesterday from the left side. Review of systems CONSTITUTIONAL: No fever, no malaise, no fatigue. HEENT: No recent visual problems or hearing problems. Denied any sore throat. CARDIOVASCULAR: No orthopnea, PND, no palpitations, no syncope. PULMONARY: No chest wall tenderness GastrointestiL: No diarrhea, no nausea, no vomiting, no abdominal pain. Normoact yadira bowel sounds. NEUROLOGICAL: No headaches, no weakness, no numbness. 03/23/2023 Patient transferred from the ICU yesterday. She isn't select unit complaining of from mild tachypnea. Chest decreased breath sounds on the left side Chest x-ray showing near complete opacification of the left lung. Plan for repeat bronchoscopy of the left side with incentive spirometry encouraged. May resume anticoagulation was cleared by cardiothoracic surgery after the scope. She is currently on 3 L oxygen via nasal cannula, she is not on oxygen at home. Amiodarone is admitted today by cardiology team as well and continue metoprolol 12.5 mg Objective - Vital Signs Vital signs: Vital Signs Temp 97.7 F 03/23/23 08:00 Pulse 122 H 03/23/23 09:59 Resp 18 03/23/23 08:00 BP 121/63 03/23/23 08:00 Pulse Ox 97 03/23/23 08:54 FiO2 60 03/17/23 22:50 Intake & Output 03/22/23 03/23/23 03/23/23 18:59 06:59 18:59 Intake Total 400 450 Output Total 400 300 Balance 0 150 Weight 87.6 kg Intake: IV 200 Intake, IV Titration 250 Amount Amiodarone 450 mg In 250 Dextrose 5% in Water 250 ml @ 0.5 MG/MIN 16.667 mls/hr IV .Q15H [facility] Rx#: [id number] Oral 400 Output: Urine 400 300 Other: Voiding Method Toilet Toilet Toilet Bedside Commode Bedside Commode Bedside Commode # Voids 1 1 1 # Bowel Movements 1 ABP, PAP, CO, CI - Last Documented Arterial Blood Pressure 99/38 - Exam GENERAL: The patient is alert and oriented x3, not in any acute distress. Well developed, well nourished. HEENT: Pupils are round and equally reacting to light. EOMI. No scleral icterus. No conjunctival pallor. Normocephalic, atraumatic. No pharyngeal erythema. No thyromegaly. CARDIOVASCULAR: S1 and S2 present. No murmurs, rubs, or gallops. -PULMONARY: Chest is clear to auscultation, no wheezing , no crackles. chest tube in place ABDOMEN: Soft, nontender, nondistended, normoactive bowel sounds. No palpable organomegaly. MUSCULOSKELETAL: No joint swelling or deformity. EXTREMITIES: No cyanosis, clubbing, or pedal edema. NEUROLOGICAL: Gross neurological examination did not reveal any focal deficits. SKIN: No rashes. no petechiae. - Labs CBC & Chem 7: 03/23/23 07:37 03/23/23 07:37 Labs: Abnormal Lab Results - Last 24 Hours (Table) 03/22/23 03/22/23 03/23/23 Range/Units 12:18 16:33 01:59 Sodium (137-145) mmol/L BUN (7-17) mg/dL Glucose (74-99) mg/dL POC Glucose (mg/dL) 227 H 143 H 180 H (70-110) mg/dL Calcium (8.4-10.2) mg/dL 03/23/23 03/23/23 03/23/23 Range/Units 06:13 07:37 11:27 Sodium 135 L (137-145) mmol/L BUN 20 H (7-17) mg/dL Glucose 139 H (74-99) mg/dL POC Glucose (mg/dL) 134 H 188 H (70-110) mg/dL Calcium 8.0 L (8.4-10.2) mg/dL Microbiology - Last 24 Hours (Table) 03/22/23 00:33 Gram Stain - Preliminary Sputum Assessment and Plan Assessment: -Lung cancer was recently diagnosed with non small cell and is now status post upper lobectomy with cardiothoracic surgery following closely.. Patient monitored in the ICU postoperatively and transferred to the general medical floor at [facility] -Near-complete opacification of the left lung -Acute hypoxic respiratory failure -Diabetes mellitus with hyperglycemia -Hypotension, improved -Hypovolemic hypernatremia -COPD without any acute exacerbation -hyperlipidemia -Hypertension -hypervascular disease -continued nicotine use: Counseling was provided Plan: Patient will require bronchoscopy Continue with amiodarone for cardiothoracic surgery team Change insulin to Levemir 30 units daily and NovoLog 12 units with meals with insulin sliding scale and close monitoring of sugar. Chest tube was removed by cardiothoracic surgery team Pulmonary consult on the case Patient started on sodium tablets We recommend fluid restriction, currently 1500 per day Labs and medication were reviewed.. Continue same treatment. Continue with symptomatic treatment. Resume home medication. Monitor labs and vitals. DVT and GI prophylaxis. Further recommendations as per clinical course of the patient DVT prophylaxis: Subcutaneous Lovenox GI Prophylaxis: Pepcid PT/OT: Home health care Prognosis is guarded
--- NOTE | 2023-03-23 13:48 | XR ---
EXAMINATION TYPE: XR chest 1V portable DATE OF EXAM: 03/23/2023 12:43 PM CLINICAL INDICATION:Female, 57 years old with history of post bronch; [facility] COMPARISON: Chest radiograph from same day TECHNIQUE: XR chest 1V portable Frontal view of the chest. FINDINGS: Lungs/Pleura: Similar lung findings with near-complete opacification of the left lung. There is no ev idence for focal consolidation pneumothorax or pleural effusion within the right lung. There is no ev idence of pleural effusion, focal consolidation, or pneumothorax. Pulmonary vascularity: Unremarkable. Heart/mediastinum: Cardiomediastinal silhouette is unremarkable. Musculoskeletal: No acute osseous pathology. IMPRESSION: Persistent near complete opacification of the left lung likely secondary to atelectasis and large ple ural effusion. The right lung is clear. 03/23/2023. No pneumothorax visualized.
[2023-03-23] MEDS: PIPERACILLIN-TAZOBACTAM 3.375 GM in SODIUM CHLORIDE 0.9% 100 ML IVPB SCH (15:25)
--- NOTE | 2023-03-23 16:11 | P.PN ---
Subjective Progress Note Date: 03/23/23 This is a 57-year-old female who was admitted for possible left upper lobectomy, by Dr. June. Initially, the patient had a significant elevation in her blood, and the surgery was delayed. It was finally done today. He did call me after the procedure. In December of this year, my partner, did a flexible bronchoscopy, robotically-assisted bronchoscopy, and biopsies, the lesion, and the left upper lobe. The biopsies were positive for well-differentiated pulmonary adenocarcinoma. Currently, the patient's resting comfortably in the intensive care unit. The patient's on 4 L of oxygen, and getting saline at 50 mL an hour. Again as I mentioned above, I did speak to the surgeon about this patient. He was concerned that she may need bronchoscopy over the next few days, for left lung collapse. Apparently her airways were full of mucus. Currently labs data only includes a glucose of 260. Chest x-ray shows a left- sided consolidation and a small effusion, with no sizable pneumothorax. Chest tube is noted. Labs from yesterday include a white count of 5.9, hemoglobin 13.4, hematocrit 39.7, and a platelet count of 96,000. Sodium 137, potassium 4.3, chlorides 102, CO2 27, UN 15, and creatinine 0.7. N-terminal proBNP was 166. Progress note dated 03/16/2023. 57-year-old female postop day #1, status post robotically assisted thoracoscopic left upper lobectomy for lung cancer. The patient is seen today in room 257. She is on 2 L of oxygen. She's getting saline at 50 mL an hour. According to the nurses, the patient had an uneventful night. The patient's resting comfortably in bed. Again, she is on 2 L, by nasal cannula. White count 11.2, hemoglobin 13.4, and platelet count 105,000. Sodium 135, potassium 3.9, chlorides 99, CO2 28, BUN 14, creatinine 0.49. Magnesium 1.4. Chest x-rays shows some volume loss in the left lung, with some left-sided consolidation, and a small effusion. Progress note dated 03/17/2023. 57-year-old female, postop day #2, status post robotically assisted thoracoscopic left upper lobectomy for lung cancer. The patient is seen today in room 362. She's currently on room air, but saturations are only 87%. I asked respiratory therapy to place her on oxygen at 2 L. The left-sided chest tube had been removed. She's getting saline at 10 mL an hour. White count is 10.7, hemoglobin 13.1, hematocrit 40, and platelet count 108,000. Sodium 127, potassium 4.2, chlorides 94, CO2 25, BUN 31, and creatinine 0.71. Calcium is 8.2. Magnesium is 2.2. Chest x-ray from today shows postoperative changes, with stable left-sided consolidation and small pleural effusion. No pneumothorax is seen. Progress note dated 03/18/2023. 57-year-old female, postoperative day #3, status post robotically assisted thoracoscopic left upper lobectomy for early stage lung cancer. The patient was outside on the general floor, but came back into the intensive care unit, room 251, because of atrial fibrillation with rapid ventricular response. Currently, she is seen in the ICU, and is currently on 7 L high flow oxygen, and amiodarone at 1 mg/m. We did make her nothing by mouth after midnight, for possible bronchoscopy tomorrow. Her chest x-ray shows partial collapse of the left lung. White count is 10.7, hemoglobin 0.9, hematocrit 38.6, with a platelet count of 141,000. Sodium 127, potassium 4.2, chlorides 94, CO2 22, BUN 50, and creatinine 0.85. Glucose 223. Albumin is 2.9. Chest x-ray shows increasing left-sided consolidation and pleural effusion, with volume loss. There may be a tiny left apical pneumothorax. Progress note dated 03/19/2023. 57-year-old female postop day #4, status post robotically assisted thoracoscopic left upper lobectomy for early stage lung cancer. The patient was out on the general medical floor, but came back to the intensive care unit, because of atrial fibrillation/RVR. The patient's most recent chest x-ray shows near complete collapse of the left lung, so, the patient will undergo bronchoscopy sometime today. She's currently seen in the intensive care unit, room 251. The patient is on 4 L of oxygen. She's currently on amiodarone at 0.5 mg/m. The bronchoscopy was done at the bedside, with the aid of anesthesia. White count is 8.4, hemoglobin 12.9, hematocrit 36.6, and lately count 95,000. Sodium 127, potassium 5, chlorides 97, CO2 20, BUN 53, creatinine 0.81. Calcium is 8.2. Ch est x-ray shows near complete opacification of the left lung. Progress note dated 03/20/2023. 57-year-old female, postop day #5, status post robotically assisted thoracoscopic left upper lobectomy for early stage lung cancer. The patient is seen today in room 251. Yesterday, because of left lung collapse, she underwent bronchoscopy. It was done at the bedside, with the help of anesthesia. Ca rdiothoracic surgery setting her for a CAT scan without contrast today. She is a 3 S. overflow patient. He is on 2 L. She's not receiving any IV fluids. White count 10.5, hemoglobin 13.2, hematocrit 39.8, and platelet count is normal. Sodium 127, potassium 5.3, chlorides 98, CO2 18, BUN 54, creatinine 0.84. Calcium is 8.4. Chest x-ray shows improved aeration, left upper lobe. Progress note dated 03/21/2023. 57-year-old female, postop day #6, status post robotically assisted thoracoscopi c left upper lobectomy for early stage lung cancer. The patient's chest x-ray today shows a developing infiltrate in the right lung, also seen on computed tomography scan, and nearly complete left lung collapse. The patient has had previous bronchoscopy, and will have another one today. He's currently on 2 L. No IV fluids. We did send in a pro-calcitonin level. She is currently not on any antibiotics. No new labs today. Progress note dated 03/22/2023. 57-year-old female, postoperative day #7, status post robotically assisted thoracoscopic left upper lobectomy, for stage I lung cancer. The patient's chest x-ray, is showing a abnormality, in the left lung, consistent with collapse, as well, as an infiltrate, and the right lung, potentially consistent with pneumonia. This is best seen on the most recent computed tomography scan. The patient was to have bronchoscopy yesterday, but it was canceled by anesthesia because of a potassium of 5.5. This morning, her potassium was 5.3, repeat after dextrose and insulin was 5. Unfortunately, the patient has also developed atrial fibrillation with a rapid ventricular response. Anesthesia will decide whether or not move forward with a bronchoscopy. Currently labs include a white count 7.5, hemoglobin 11.8, hematocrit 36.3, and a normal platelet count. Sodium 134, potassium 5, chlorides 99, CO2 26, BUN 36, creatinine 0.71. Calcium is 8.0. The patient's chest x-ray is unchanged. On today's evaluation of 03/23/2023, the patient is being seen for a follow-up. The patient is postop day #8 as the patient underwent a robotic-assisted left upper lobectomy. The patient continues to have significant amount of opacification of the left lung and today's chest x-ray along with volume loss and this is consistent with mucus plugging. Based on that, I performed a bronchoscopy on the patient. There was copious amount of thick purulent blister secretions occupying the left mainstem bronchus and the trachea and the various segments of the left lower lobe. Therapeutic airway suctioning was done. A bronchial lavage was done. The patient was started on IV antibiotics. She is afebrile for now. She was having issues with atrial fibrillation current rhythm is sinus and the patient remains on amiodarone 0.5 mg/m. No fever. No chills. No chest pain. Recommended utilization of CPAP was bronchoscopy to achieve better expansion of the left lung. The patient's white cell count at 7.0 with a hemoglobin 12 and a platelet count of 258. Sodium is at 135 potassium is at 5 the enzymes at 20 with a creatinine of 0.5 Objective - Vital Signs Vital signs: Vital Signs Temp 97.1 F L 03/23/23 12:00 Pulse 58 L 03/23/23 12:00 Resp 20 03/23/23 12:00 BP 116/72 03/23/23 12:00 Pulse Ox 98 03/23/23 12:00 FiO2 40 03/23/23 12:12 Intake & Output 03/22/23 03/23/23 03/23/23 18:59 06:59 18:59 Intake Total 400 450 Output Total 400 300 Balance 0 150 Weight 87.6 kg Intake: IV 200 Intake, IV Titration 250 Amount Amiodarone 450 mg In 250 Dextrose 5% in Water 250 ml @ 0.5 MG/MIN 16.667 mls/hr IV .Q15H [facility] Rx#: [id number] Oral 400 Output: Urine 400 300 Other: Voiding Method Toilet Toilet Toilet Bedside Commode Bedside Commode Bedside Commode # Voids 1 1 1 # Bowel Movements 1 ABP, PAP, CO, CI - Last Documented Arterial Blood Pressure 99/38 - Exam No acute distress, oriented 3. Currently on 2 L high flow nasal cannula. HEENT examination is grossly unremarkable. Mucous membranes are moist. No oral lesions. Neck supple. Full range of motion. No adenopathy thyromegaly or neck vein distention. Cardiovascular examination reveals regular rhythm rate. S1-S2 normal. No S3 or S4. No discernible murmur noted. Lungs reveal diminished bilateral breath sounds, left greater than right. Dimin ished breath on the left lung compared to the right. Surgical once is striking and intact. Abdomen soft bowel sounds are heard. No masses or tenderness. Extremities are intact. No cyanosis clubbing or edema. Skin is without rash or lesion. Neurologic examination is brief but nonfocal. - Labs CBC & Chem 7: 03/23/23 07:37 03/23/23 07:37 Labs: Abnormal Lab Results - Last 24 Hours (Table) 03/22/23 03/23/23 03/23/23 Range/Units 16:33 01:59 06:13 Sodium (137-145) mmol/L BUN (7-17) mg/dL Glucose (74-99) mg/dL POC Glucose (mg/dL) 143 H 180 H 134 H (70-110) mg/dL Calcium (8.4-10.2) mg/dL 03/23/23 03/23/23 Range/Units 07:37 11:27 Sodium 135 L (137-145) mmol/L BUN 20 H (7-17) mg/dL Glucose 139 H (74-99) mg/dL POC Glucose (mg/dL) 188 H (70-110) mg/dL Calcium 8.0 L (8.4-10.2) mg/dL Microbiology - Last 24 Hours (Table) 03/22/23 00:33 Gram Stain - Preliminary Sputum Sputum Culture - Preliminary Assessment and Plan Plan: Postop day #8, status post robotically assisted thoracoscopic left upper lobectomy with mediastinal lymph node dissection, for early stage NSCLC. Left lung collapse, essentially the left lower lobe secondary to mucous plugs. Bronchoscopy was done, a vigorous suctioning of the mucous plugs was performed. Cultures were sent and the patient was placed on CPAP. 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 New-onset atrial fibrillation with rapid ventricular response, 03/22/2023. The patient's current rhythm is sinus History of chronic obstructive pulmonary disease. History of CVA. History of diabetes mellitus. History of hypertension. History of hyperlipidemia. History of alcohol abuse and heroin abuse. History of hepatitis B and C. Plan: Repeat bronchoscopy was done. The bronchial lavage was supplemented with cu ltures and analysis. Start the patient was recommended by his IV Zosyn Utilize CPAP at a pressure of 8 cm of water to achieve event especially on the left lung Daily chest x-ray Bronchodilators with DuoNeb updrafts Continue Symbicort Continue rest of the medical management including Lovenox for DVT prophylaxis. We'll continue to follow. Aggressive pulmonary toileting. Use of incentive spirometer is recommended
--- NOTE | 2023-03-23 16:14 | P.PCN ---
Date of Procedure: 03/23/23 Preoperative Diagnosis: Left lower lobe atelectasis Postoperative Diagnosis: Mucus plugg occupying the left mainstem bronchus and the left lower lobe bronchus Tracheobronchomalacia Procedure(s) Performed: Flexible bronchoscopy, bronchial lavage of the left lower lobe Anesthesia: MAC Surgeon: Michelle Lucia Estimated Blood Loss (ml): 0 Pathology: other Condition: stable Disposition: floor Operative Findings: This procedure was done in the endoscopy suite. A consent was obtained and a timeout was done. Following that, the patient was given anesthetic medication by anesthesia. After achieving adequate sedation, the flexible scope was introduced through the left nostril and was advanced into the upper airway. Examination of the posterior pharynx, larynx, epiglottis, vallecula and the cords were all within normal limits. Vocal cord function and mobility was within normal limits. A total of 2 mL of 1% lidocaine was applied to the vocal cord and following that the bronchoscope was advanced into the upper trachea. There was copious amount of mucous plugs overlying the trachea and those were suctioned out. More plugs were identified and the left mainstem bronchus and the left lower lobe bronchus. Therapeutic airway suctioning was done. I was able to visualize the entire trachea and there was evidence of tracheal bronchomalacia. The patient had therapeutic airway suctioning. Left mainstem bronchus patency was achieved. Following that, the stumps to the left upper lobe was seen and was friable. Healthy and intact. The bronchoscope was then removed to the left lower lobe and segmental washing of the posterior segment and anterior and lateral segment was done. A bronchial lavage of the left lower lobe was done with a total 40 mL of fluid was infused and 10 mL was suctioned back. Following that, the bronchoscope was normal to the right side and airway examination of the right side showed no significant abnormalities. Right mainstem bronchus, right upper lobe bronchus, bronchus intermedius, right middle lobe bronchus and the right lower lobe bronchus were all patent and within normal limits. No significant abnormalities were noted on on the right side of the lung.
[2023-03-23] MEDS: LORazepam 1 MG TAB PO PRN (16:26)
[2023-03-23 17:06] LABS: Glucose,Whole Blood 381 mg/dL (70-110)
[2023-03-23 20:16] LABS: Glucose,Whole Blood 123 mg/dL (70-110)
[2023-03-23] MEDS: AMIODARONE 200 MG TAB PO SCH (21:03)
[2023-03-24] MEDS: PIPERACILLIN-TAZOBACTAM 3.375 GM in SODIUM CHLORIDE 0.9% 100 ML IVPB SCH ×4 (00:31→23:11)
[2023-03-24] MEDS: ACETAMINOPHEN TAB 325 MG TAB PO PRN ×4 (00:32→20:42)
[2023-03-24 03:06] LABS: Glucose,Whole Blood 91 mg/dL (70-110)
[2023-03-24] MEDS: INSULIN ASPART (NovoLOG) 100 UNIT/ML VIAL SQ SCH ×8 (04:06→20:40)
[2023-03-24] MEDS: HYDROcodone/APAP 5-325MG 1 EACH TAB PO PRN ×3 (05:23→18:19)
[2023-03-24 06:19] LABS: Glucose,Whole Blood 100 mg/dL (70-110)
[2023-03-24] MEDS: INSULIN DETEMIR (LEVEMIR) 100 UNIT/ML SYR SQ SCH (06:41)
[2023-03-24] MEDS: PANTOPRAZOLE 40 MG TABLET PO SCH (06:41)
[2023-03-24] MEDS: IPRATROPIUM-ALBUTEROL 3 ML NEB IH SCH ×4 (08:09→21:06)
[2023-03-24] MEDS: ACETYLCYSTEINE 800 MG/4 ML VIAL INHALATION SCH ×4 (08:09→21:06)
[2023-03-24] MEDS: SYMBICORT 80-4.5 MCG INHALER INHALATION SCH ×2 (08:10→21:07)
[2023-03-24] MEDS: AMIODARONE 200 MG TAB PO SCH ×2 (08:12→20:41)
[2023-03-24] MEDS: GABAPENTIN 400 MG CAP PO SCH ×3 (08:12→20:41)
[2023-03-24] MEDS: ATORVASTATIN 10 MG TAB PO SCH (08:12)
[2023-03-24] MEDS: MAGNESIUM OXIDE 400 MG TAB PO SCH ×2 (08:12→20:41)
[2023-03-24] MEDS: THIAMINE 100 MG TAB PO SCH (08:12)
[2023-03-24] MEDS: SODIUM CHLORIDE TAB 1 GM TAB PO SCH ×2 (08:12→20:41)
[2023-03-24] MEDS: ENOXAPARIN 40 MG/0.4 ML SYRINGE SQ SCH (08:12)
[2023-03-24] MEDS: FOLIC ACID 1 MG TAB PO SCH (08:12)
[2023-03-24] MEDS: METOPROLOL TARTRATE 12.5 MG TAB PO SCH ×3 (08:13→22:29)
[2023-03-24] MEDS: NICOTINE 7MG/24HR PATCH TRANSDERM SCH (08:13)
--- NOTE | 2023-03-24 08:29 | XR ---
EXAMINATION TYPE: XR chest 1V portable DATE OF EXAM: 03/24/2023 7:14 AM CLINICAL INDICATION:Female, 57 years old with history of post left upper lobectomy; [facility] COMPARISON: Chest radiograph from one day prior. TECHNIQUE: XR chest 1V portable Frontal view of the chest. FINDINGS: Lungs/Pleura: Similar lung findings with near-complete opacification of the left lung. There is no ev idence for focal consolidation or pneumothorax. There is now a small right pleural effusion. Pulmonary vascularity: Unremarkable. Heart/mediastinum: Cardiomediastinal silhouette is partially obscured due to overlying and adjacent o pacities. Musculoskeletal: No acute osseous pathology. IMPRESSION: 1. Persistent near complete opacification of the left lung likely secondary to atelectasis and large pleural effusion. No pneumothorax visualized. 2. Small right effusion now present.
[2023-03-24 09:57] LABS: Basophils % (A) 1 %; Eosinophils # (A) 0.1 k/uL (0-0.7); Eosinophils % (A) 2 %; HCT 34.9 % (34.0-46.0); HGB 11.3 gm/dL (11.4-16.0); Hypochromasia Slight; Lymphocytes % (A) 28 %; MCH 31.3 pg (25.0-35.0); MCHC 32.3 g/dL (31.0-37.0); Mean Platelet Volume 8.6; Monocytes # (A) 0.4 k/uL (0-1.0); Monocytes % (A) 5 %; Neutrophils # (A) 4.3 k/uL (1.3-7.7); Neutrophils % (A) 62 %; Platelet Count 221 k/uL (150-450); RDW 13.3 % (11.5-15.5)
[2023-03-24 10:06] LABS: African American GFR (CKD) >90 (>60 ml/min/1.73 sqM); Anion Gap 8 mmol/L; Blood Urea Nitrogen 17 mg/dL (7-17); Calcium 7.9 mg/dL (8.4-10.2); Carbon Dioxide 25 mmol/L (22-30); Chloride 100 mmol/L (98-107); Glucose 157 mg/dL (74-99); Non-African American GFR(CKD) >90 (>60 ml/min/1.73 sqM); Potassium 4.7 mmol/L (3.5-5.1); Sodium 133 mmol/L (137-145)
--- NOTE | 2023-03-24 10:28 | P.PN ---
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 History of current tobacco dependence, COPD, daily EtOH use, hypertension, hyperlipidemia, stroke in 2016 with right-sided weakness, hepatitis B and C, bipolar depression, IV heroin use with last use August 2018 POD#9 Robotic assisted thoracoscopic left upper lobectomy with mediastinal lymph node dissection, fiberoptic bronchoscopy for evacuation of inspissated sputum Paroxysmal atrial fibrillation, known potential complication of lung surgery Hypotension although MAP stable, not requiring pressors, resolved Left lower lobe atelectasis, mucus plug occupying the left mainstem bronchus and the left lower lobe bronchus, tracheobronchomalacia POD #1 flexible bronchoscopy, bronchial lavage of the left lower lobe The patient was seen and examined this morning with Dr. June sitting up in a recliner in no acute distress. Denies significant pain, denies shortness of breath at rest. Remains in sinus rhythm, hemodynamically stable. Currently on 2LPM NC with oxygen saturation in the mid 90s. States she has been ambulatory in the garcia without difficulty, has showered. Underwent bronch yesterday, no significant change in CXR this morning. Likely will undergo repeat bronch tomorrow with Dr. Lucia, although we did encourage her to keep trying to cough up phlegm. No other new concerns. Objective - Vital Signs Vital signs: Vital Signs Temp 97.9 F 03/23/23 20:00 Pulse 62 03/24/23 04:00 Resp 16 03/24/23 04:00 BP 140/83 03/24/23 04:00 Pulse Ox 97 03/24/23 04:00 FiO2 40 03/23/23 21:31 Intake & Output 03/23/23 03/24/23 03/24/23 18:59 06:59 18:59 Intake Total 1170 Output Total 600 Balance 570 Intake: IV 200 Intake, IV Titration 250 Amount Amiodarone 450 mg In 250 Dextrose 5% in Water 250 ml @ 0.5 MG/MIN 16.667 mls/hr IV .Q15H [facility] Rx#: [id number] Oral 720 Output: Urine 600 Other: Voiding Method Toilet Toilet Bedside Commode Bedside Commode # Voids 1 1 # Bowel Movements 1 ABP, PAP, CO, CI - Last Documented Arterial Blood Pressure 99/38 - Exam CONSTITUTIONAL: Appears comfortable, cooperative, no acute distress RESPIRATORY: Lungs sounds diminished on the left. Respirations even, nonlabored. Currently on 2 LPM NC with oxygen saturation 96%. Able to achieve 4002-3521 mL on incentive spirometry. Strong cough. CARDIOVASCULAR: S1, S2 present. Regular rate and rhythm, sinus rhythm on telemetry. Palpable peripheral pulses bilaterally. No edema present. No calf pain or tenderness noted GASTROINTESTINAL: Abdomen soft, nontender, nondistended. Active bowel sounds present 4 quadrants. Tolerating diet. Positive bowel movement 03/24 INTEGUMENTARY: Skin is warm and dry NEUROLOGIC: Cranial nerves II through XII intact MUSKULOSKELETAL: Able to move all extremities, strength equal bilaterally PSYCHIATRIC: Alert and oriented to person place and time, flat affect - Allied health notes Allied health notes reviewed: nursing - Labs CBC & Chem 7: 03/24/23 09:13 03/24/23 09:13 Labs: Abnormal Lab Results - Last 24 Hours (Table) 03/23/23 03/23/23 03/23/23 Range/Units 07:37 11: 17:05 Sodium 135 L (137-145) mmol/L BUN 20 H (7-17) mg/dL Glucose 139 H (74-99) mg/dL POC Glucose (mg/dL) 188 H 381 H (70-110) mg/dL Calcium 8.0 L (8.4-10.2) mg/dL 03/23/23 Range/Units 20:12 Sodium (137-145) mmol/L BUN (7-17) mg/dL Glucose (74-99) mg/dL POC Glucose (mg/dL) 123 H (70-110) mg/dL Calcium (8.4-10.2) mg/dL Microbiology - Last 24 Hours (Table) 03/22/23 00:33 Gram Stain - Preliminary Sputum Sputum Culture - Preliminary - Imaging and Cardiology Chest x-ray: report reviewed, image reviewed Assessment and Plan Assessment: Insulin dependent diabetes with poor glycemic control, hyperglycemia, A1c 9.8% Hypomagnesemia Left upper lobe mass positive for well-differentiated adenocarcinoma, status post left upper lobectomy Current tobacco dependence Moderate COPD, preoperative FEV1 54% of predicted, DLCO 36% of predicted Current daily EtOH use Hypertension Hyperlipidemia Stroke in 2016 with right-sided weakness Hepatitis B and C Bipolar depression History of IV heroin use with last use August 2018 Paroxysmal atrial fibrillation, currently sinus rhythm Left lung collapse, left lung opacification, status post bronchoscopy performed by Dr. Reynolds 03/19/23 Left lower lobe atelectasis, mucus plug occupying the left mainstem bronchus and the left lower lobe bronchus, tracheobronchomalacia, status post flexible bronchoscopy, bronchial lavage of the left lower lobe by Dr. Lucia 03/23/23 Plan: Continue amiodarone, beta ana maría for A. fib per cardiology recommendation. No anticoagulation due to recent surgery Continue to improve blood glucose control, insulin adjustments made by primary service, continue to up titrate insulin Increase activity, ambulate as tolerated. Patient should be out of bed for all meals, she should be out of bed the majority of the day and use the bed for sleeping at nighttime only Wean oxygen as tolerated. Encourage incentive spirometry 10x every hour while awake. Bronchodilators per pulmonology. Possible repeat bronchoscopy tomorrow per Dr. Lucia Monitor for alcohol withdrawal, thiamine and folic acid ordered, magnesium replaced Nicotine patch in place Smoking cessation counseling and education reinforced Continue Tylenol for pain control Will continue to monitor daily CXR, labs Medical management of other comorbidities per internal medicine
--- NOTE | 2023-03-24 10:32 | P.PN ---
Subjective Patient is a 57-year-old female came in for elective pulmonary lobectomy for lung cancer found to have highly elevated blood sugars of 500 because of which patient was admitted patient last hemoglobin A1c was more than a year ago at that time it was 7.5 it appears patient may be noncompliant. Patient admits to drinking vodka with watermelon juice last night. Patient does have history of COPD continues to smoke 5 cigarettes per day is bit hypoxic. Chest x-ray showed some interstitial prominence although clinically patient doesn't appear to be in CHF patient does take 20 mg of Lasix at home patient has chronic venous stasis dermatosis of both legs and will be dermatitis. Patient is on Trulicity, 20 units of long-acting insulin along with metformin at home for diabetes with us. Patient blood sugars is presently about 300. Patient had a chest xray showing 1.2 cm let upper lobe pulmonary mass. She will be going for lung resection on . 03/12/2023 Patient sitting up in bed today. Needs to be up in the chair for the day. Patien t verbalized understanding. Blood glucose remains elevated. Levemir will be increased and scheduled insulin added. 03/13/2023 Patient evaluated [facility]. She is sitting up in the chair no acute complaints overnight. She is scheduled to undergo elective lobe resection on Wednesday. Blood glucose remains elevated at this time it has come down into the 190s however back up to 365. She is on a combination of sliding scale insulin as well as 3 units of scheduled and 25 units daily Levemir. These have been increased today. 03/14/2023 Patient is evaluated today, sitting up in chair. Patient to undergo elective lobe resection on wednesday with CT surgery. No acute complaints. Blood glucose remains elevated but overall improved, fluctuating between 188-312 this afternoon. 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 She will be monitored postoperatively in the ICU. Blood glucose this AM down to 150 and 176. Still fluctuating in to the high 200s. Will continue with current regimen as patient will be NPO for surgery to avoid hypoglycemia. If she remains elevated insulin will be further increased. 03/16/2023 Patient is evaluated today in the ICU postoperative day #1 left upper lobectomy. Patient has left CT in place with chest xray today showing left-sided consolidation and small effusion with no sizable pneumothorax. Labs showing white count of 11.2, sodium level of 35. BUN 14, creatinine 0.49. Magnesium 1.4. Glucose has been slowly improving. Patient has been afebrile, heart rate 80s, blood pressure on the lower side 95/38. On 2L of oxygen. 03/17/2023 Patient presents with non-small lung cancer of the left upper lobe status post robotic assisted thoracoscopic left upper lobectomy on 03/15. Today postop day #2. Patient was transferred out of the ICU to the select unit today morning. Patient was lying in bed looks tired. Left chest tube in place but later on her chest tube was removed. Chest x-ray showing no sizable pneumothorax but persistent postop changes with a stable left lower lobe consolidation. Patient blood pressure on the low normal side about 88/51, no dizziness. Currently she is on 2 L oxygen via nasal cannula. She had a fever on 03/14 but no more fevers since then. She has mild leukocytosis coming down to 11.2 down to 10.7. Liver enzymes mildly elevated. Sodium 127 Glucose more than 200, she is on Lantus 15 units at home and she was taken here as of yesterday Levemir 25 units daily and 8 units at bedtime, we change and fat to Levemir 30 units daily starting tomorrow. Also she is on insulin sliding scale. We going to increase her NovoLog 5 units with meals up to 9 units and change her Levemir to 30 units daily with close monitoring of her glucose. Her amiodarone drip was stopped and switched to oral amiodarone. 03/18/2023 Patient become hypotensive overnight, her night, but time murmurs held her beta ana maría and amiodarone, she developed tachycardia with heart rate was 120-1:30, she was also hypotensive blood pressure 83/73 therefore patient was transferred back to the intensive care unit. This morning she is awake and alert, in mild distress due to severe weakness. She denies chest pain or dyspnea this morning. She was started back on amiodarone drip by java scala developer and blood pressure improved 113/61. Heart rate is also improved but EKG today showed sinus rhythm at 72 with occasional PVCs She received 1 L of normal saline Chest x-ray showing slightly worse consolidation especially on the left side probably due to fluid accumulation. Patient does not have a fever, she has mild leukocytosis which is a stable. No strong evidence of infection patient currently off antibiotic. Sodium 127 most likely hypovolemic hyponatremia. She remains on amiodarone drip, Lovenox for DVT prophylaxis After sugars still more than 200, we will continue with Levemir 30 units and increase NovoLog 9 up to 12 units with meals Chest the tube already removed yesterday from the left side. Review of systems CONSTITUTIONAL: No fever, no malaise, no fatigue. HEENT: No recent visual problems or hearing problems. Denied any sore throat. CARDIOVASCULAR: No orthopnea, PND, no palpitations, no syncope. PULMONARY: No chest wall tenderness GastrointestiL: No diarrhea, no nausea, no vomiting, no abdominal pain. Normoact yadira bowel sounds. NEUROLOGICAL: No headaches, no weakness, no numbness. 03/23/2023 Patient transferred from the ICU yesterday. She isn't select unit complaining of from mild tachypnea. Chest decreased breath sounds on the left side Chest x-ray showing near complete opacification of the left lung. Plan for repeat bronchoscopy of the left side with incentive spirometry encouraged. May resume anticoagulation was cleared by cardiothoracic surgery after the scope. She is currently on 3 L oxygen via nasal cannula, she is not on oxygen at home. Amiodarone is admitted today by cardiology team as well and continue metoprolol 12.5 mg 03/24/2023 pt is s/p bronchoscopy yesterday for near complete opcification of the left lung thought secondary to mucous plug, today she has the same problem yesterday with near complete opacification of the left flank with exertional dyspnea although she saturating 96% while at rest No chest pain no significant coughing, does not look in respiratory distress. She was started on Zosyn for possible pneumonia competent. Procal. was elevated 0.56 and 03/21. No signs of alcohol withdrawal Currently on amiodarone 400 mg Cardiology following for A. fib, currently and the cartilage remaining on hold Patient agreement to [facility] and continue treatment for an Objective - Vital Signs Vital signs: Vital Signs Temp 97.8 F 03/24/23 08:00 Pulse 68 03/24/23 08:29 Resp 18 03/24/23 08:00 BP 127/54 03/24/23 08:00 Pulse Ox 96 03/24/23 08:11 FiO2 40 03/23/23 21:31 Intake & Output 03/23/23 03/24/23 03/24/23 18:59 06:59 18:59 Intake Total 1170 240 Output Total 600 600 Balance 570 -360 Intake: IV 200 Intake, IV Titration 250 Amount Amiodarone 450 mg In 250 Dextrose 5% in Water 250 ml @ 0.5 MG/MIN 16.667 mls/hr IV .Q15H [facility] Rx#: [id number] Oral 720 240 Output: Urine 600 600 Other: Voiding Method Toilet Toilet Toilet Bedside Commode Bedside Commode # Voids 1 1 1 # Bowel Movements 1 ABP, PAP, CO, CI - Last Documented Arterial Blood Pressure 99/38 - Exam GENERAL: The patient is alert and oriented x3, not in any acute distress. Well developed, well nourished. HEENT: Pupils are round and equally reacting to light. EOMI. No scleral icterus. No conjunctival pallor. Normocephalic, atraumatic. No pharyngeal erythema. No thyromegaly. CARDIOVASCULAR: S1 and S2 present. No murmurs, rubs, or gallops. -PULMONARY: Chest is clear to auscultation, no wheezing , no crackles. chest tube in place ABDOMEN: Soft, nontender, nondistended, normoactive bowel sounds. No palpable organomegaly. MUSCULOSKELETAL: No joint swelling or deformity. EXTREMITIES: No cyanosis, clubbing, or pedal edema. NEUROLOGICAL: Gross neurological examination did not reveal any focal deficits. SKIN: No rashes. no petechiae. - Labs CBC & Chem 7: 03/24/23 09:13 03/24/23 09:13 Labs: Abnormal Lab Results - Last 24 Hours (Table) 03/23/23 03/23/23 03/23/23 Range/Units 07:37 11: 17:05 RBC (3.80-5.40) m/uL Hgb (11.4-16.0) gm/dL Sodium 135 L (137-145) mmol/L BUN 20 H (7-17) mg/dL Glucose 139 H (74-99) mg/dL POC Glucose (mg/dL) 188 H 381 H (70-110) mg/dL Calcium 8.0 L (8.4-10.2) mg/dL 03/23/23 03/24/23 03/24/23 Range/Units 20:12 09:13 09:13 RBC 3.60 L (3.80-5.40) m/uL Hgb 11.3 L (11.4-16.0) gm/dL Sodium 133 L (137-145) mmol/L BUN (7-17) mg/dL Glucose 157 H (74-99) mg/dL POC Glucose (mg/dL) 123 H (70-110) mg/dL Calcium 7.9 L (8.4-10.2) mg/dL Microbiology - Last 24 Hours (Table) 03/22/23 00:33 Gram Stain - Final Sputum Sputum Culture - Final Assessment and Plan Assessment: -Lung cancer was recently diagnosed with non small cell and is now status post upper lobectomy with cardiothoracic surgery following closely.. Patient monitore d in the ICU postoperatively and transferred to the general medical floor at [facility] -Near-complete opacification of the left lung -Acute hypoxic respiratory failure -Diabetes mellitus with hyperglycemia -Hypotension, improved -Hypovolemic hypernatremia -COPD without any acute exacerbation -hyperlipidemia -Hypertension -hypervascular disease -continued nicotine use: Counseling was provided Plan: Patient will require bronchoscopy Continue with amiodarone for cardiothoracic surgery team Change insulin to Levemir 30 units daily and NovoLog 12 units with meals with insulin sliding scale and close monitoring of sugar. Chest tube was removed by cardiothoracic surgery team continue Zosyn Pulmonary consult on the case Patient started on sodium tablets We recommend fluid restriction, currently 1500 per day Labs and medication were reviewed.. Continue same treatment. Continue with symptomatic treatment. Resume home medication. Monitor labs and vitals. DVT and GI prophylaxis. Further recommendations as per clinical course of the patient DVT prophylaxis: Subcutaneous Lovenox GI Prophylaxis: Pepcid PT/OT: Home health care Prognosis is guarded
[2023-03-24 11:38] LABS: Glucose,Whole Blood 120 mg/dL (70-110)
[2023-03-24] MEDS ORDERED: METOPROLOL TARTRATE 25 MG TAB PO STA (11:43)
--- NOTE | 2023-03-24 12:43 | P.PN ---
Subjective HISTORY OF PRESENT ILLNESS: 03/23/23 This is a pleasant 57-year-old female who underwent left upper lobe lobectomy on 1217 for non-small cell lung cancer. She has a history of nicotine dependence, hypertension and diabetes as well as hyperlipidemia. We were consulted postoperatively for atrial fibrillation. She was initiated on IV amiodarone with a bolus and drip. She remains on amiodarone drip was in sinus mechanism until this morning and went into atrial fibrillation with RVR. She has not been anticoagulated due to bronchoscopy scheduled for this morning. Remains in atrial fibrillation. At the time of my examination she is resting comfortably in a recliner at the bedside. Complains of her chest feeling sore. She does have some very mild shortness of breath. She is on 2 L nasal cannula. Denies any orthopnea or PND. 03/24/2023 Patient examined this morning at the bedside. Patient denies chest pain or pressure. She currently denies shortness of breath. Patient was in sinus mechanism this morning with a heart rate in the 50s to 60s. However upon examination she has been back into A. fib with RVR with heart rate of 130. She denies any palpitations. PHYSICAL EXAM: VITAL SIGNS: Reviewed. GENERAL: Well-developed in no acute distress. NECK: Supple. No JVD or thyromegaly LUNGS: Respirations even and unlabored. Lungs diminished to auscultation bila terally. HEART: Tachycardic. Irregular rate and rhythm. S1 and S2 heard. EXTREMITIES: Normal range of motion. No clubbing or cyanosis. Peripheral pulses intact. No lower extremity edema ASSESSMENT: Paroxysmal atrial fibrillation with RVR Sinus bradycardia Left upper lobe mass, positive for well-differentiated adenocarcinoma, status post left upper lobectomy Left lung collapse, left lung opacification, status post bronchoscopy 03/19/2023 Left lower lobe atelectasis with mucous plugging, status post bronchoscopy, 03/23/2023 Hypertension Hyperlipidemia Diabetes PLAN: Continue oral amiodarone Continue current dose of metoprolol Give an additional dose of metoprolol tartrate 25 mg 1 dose Continue telemetry monitoring Recommend anticoagulation when/if okay with cardiothoracic surgery Further recommendations pending patient's course Nurse practitioner note has been reviewed by physician. Signing provider agrees with the documented findings, assessment, and plan of care. Objective - Vital Signs Vital signs: Vital Signs Temp 97.8 F 03/24/23 08:00 Pulse 119 H 03/24/23 11:52 Resp 18 03/24/23 08:00 BP 127/54 03/24/23 08:00 Pulse Ox 96 03/24/23 08:11 FiO2 40 03/23/23 21:31 Intake & Output 03/23/23 03/24/23 03/24/23 18:59 06:59 18:59 Intake Total 1170 240 Output Total 600 1000 Balance 570 -760 Intake: IV 200 Intake, IV Titration 250 Amount Amiodarone 450 mg In 250 Dextrose 5% in Water 250 ml @ 0.5 MG/MIN 16.667 mls/hr IV .Q15H [facility] Rx#: [id number] Oral 720 240 Output: Urine 600 1000 Other: Voiding Method Toilet Toilet Toilet Bedside Commode Bedside Commode # Voids 1 1 1 # Bowel Movements 1 ABP, PAP, CO, CI - Last Documented Arterial Blood Pressure 99/38 - Labs CBC & Chem 7: 03/24/23 09:13 03/24/23 09:13 Labs: Abnormal Lab Results - Last 24 Hours (Table) 03/23/23 03/23/23 03/24/23 Range/Units 17:05 20:12 09:13 RBC 3.60 L (3.80-5.40) m/uL Hgb 11.3 L (11.4-16.0) gm/dL Sodium (137-145) mmol/L Glucose (74-99) mg/dL POC Glucose (mg/dL) 381 H 123 H (70-110) mg/dL Calcium (8.4-10.2) mg/dL 03/24/23 03/24/23 Range/Units 09:13 11:34 RBC (3.80-5.40) m/uL Hgb (11.4-16.0) gm/dL Sodium 133 L (137-145) mmol/L Glucose 157 H (74-99) mg/dL POC Glucose (mg/dL) 120 H (70-110) mg/dL Calcium 7.9 L (8.4-10.2) mg/dL Microbiology - Last 24 Hours (Table) 03/22/23 00:33 Gram Stain - Final Sputum Sputum Culture - Final
--- NOTE | 2023-03-24 13:03 | P.PN ---
Subjective Progress Note Date: 03/24/23 This is a 57-year-old female who was admitted for possible left upper lobectomy, by Dr. June. Initially, the patient had a significant elevation in her blood, and the surgery was delayed. It was finally done today. He did call me after the procedure. In December of this year, my partner, did a flexible bronchoscopy, robotically-assisted bronchoscopy, and biopsies, the lesion, and the left upper lobe. The biopsies were positive for well-differentiated pulmonary adenocarcinoma. Currently, the patient's resting comfortably in the intensive care unit. The patient's on 4 L of oxygen, and getting saline at 50 mL an hour. Again as I mentioned above, I did speak to the surgeon about this patient. He was concerned that she may need bronchoscopy over the next few days, for left lung collapse. Apparently her airways were full of mucus. Currently labs data only includes a glucose of 260. Chest x-ray shows a left- sided consolidation and a small effusion, with no sizable pneumothorax. Chest tube is noted. Labs from yesterday include a white count of 5.9, hemoglobin 13.4, hematocrit 39.7, and a platelet count of 96,000. Sodium 137, potassium 4.3, chlorides 102, CO2 27, UN 15, and creatinine 0.7. N-terminal proBNP was 166. Progress note dated 03/16/2023. 57-year-old female postop day #1, status post robotically assisted thoracoscopic left upper lobectomy for lung cancer. The patient is seen today in room 257. She is on 2 L of oxygen. She's getting saline at 50 mL an hour. According to the nurses, the patient had an uneventful night. The patient's resting comfortably in bed. Again, she is on 2 L, by nasal cannula. White count 11.2, hemoglobin 13.4, and platelet count 105,000. Sodium 135, potassium 3.9, chlorides 99, CO2 28, BUN 14, creatinine 0.49. Magnesium 1.4. Chest x-rays shows some volume loss in the left lung, with some left-sided consolidation, and a small effusion. Progress note dated 03/17/2023. 57-year-old female, postop day #2, status post robotically assisted thoracoscopic left upper lobectomy for lung cancer. The patient is seen today in room 362. She's currently on room air, but saturations are only 87%. I asked respiratory therapy to place her on oxygen at 2 L. The left-sided chest tube had been removed. She's getting saline at 10 mL an hour. White count is 10.7, hemoglobin 13.1, hematocrit 40, and platelet count 108,000. Sodium 127, potassium 4.2, chlorides 94, CO2 25, BUN 31, and creatinine 0.71. Calcium is 8.2. Magnesium is 2.2. Chest x-ray from today shows postoperative changes, with stable left-sided consolidation and small pleural effusion. No pneumothorax is seen. Progress note dated 03/18/2023. 57-year-old female, postoperative day #3, status post robotically assisted thoracoscopic left upper lobectomy for early stage lung cancer. The patient was outside on the general floor, but came back into the intensive care unit, room 251, because of atrial fibrillation with rapid ventricular response. Currently, she is seen in the ICU, and is currently on 7 L high flow oxygen, and amiodarone at 1 mg/m. We did make her nothing by mouth after midnight, for possible bronchoscopy tomorrow. Her chest x-ray shows partial collapse of the left lung. White count is 10.7, hemoglobin 0.9, hematocrit 38.6, with a platelet count of 141,000. Sodium 127, potassium 4.2, chlorides 94, CO2 22, BUN 50, and creatinine 0.85. Glucose 223. Albumin is 2.9. Chest x-ray shows increasing left-sided consolidation and pleural effusion, with volume loss. There may be a tiny left apical pneumothorax. Progress note dated 03/19/2023. 57-year-old female postop day #4, status post robotically assisted thoracoscopic left upper lobectomy for early stage lung cancer. The patient was out on the general medical floor, but came back to the intensive care unit, because of atrial fibrillation/RVR. The patient's most recent chest x-ray shows near complete collapse of the left lung, so, the patient will undergo bronchoscopy sometime today. She's currently seen in the intensive care unit, room 251. The patient is on 4 L of oxygen. She's currently on amiodarone at 0.5 mg/m. The bronchoscopy was done at the bedside, with the aid of anesthesia. White count is 8.4, hemoglobin 12.9, hematocrit 36.6, and lately count 95,000. Sodium 127, potassium 5, chlorides 97, CO2 20, BUN 53, creatinine 0.81. Calcium is 8.2. Ch est x-ray shows near complete opacification of the left lung. Progress note dated 03/20/2023. 57-year-old female, postop day #5, status post robotically assisted thoracoscopic left upper lobectomy for early stage lung cancer. The patient is seen today in room 251. Yesterday, because of left lung collapse, she underwent bronchoscopy. It was done at the bedside, with the help of anesthesia. Ca rdiothoracic surgery setting her for a CAT scan without contrast today. She is a 3 S. overflow patient. He is on 2 L. She's not receiving any IV fluids. White count 10.5, hemoglobin 13.2, hematocrit 39.8, and platelet count is normal. Sodium 127, potassium 5.3, chlorides 98, CO2 18, BUN 54, creatinine 0.84. Calcium is 8.4. Chest x-ray shows improved aeration, left upper lobe. Progress note dated 03/21/2023. 57-year-old female, postop day #6, status post robotically assisted thoracoscopi c left upper lobectomy for early stage lung cancer. The patient's chest x-ray today shows a developing infiltrate in the right lung, also seen on computed tomography scan, and nearly complete left lung collapse. The patient has had previous bronchoscopy, and will have another one today. He's currently on 2 L. No IV fluids. We did send in a pro-calcitonin level. She is currently not on any antibiotics. No new labs today. Progress note dated 03/22/2023. 57-year-old female, postoperative day #7, status post robotically assisted thoracoscopic left upper lobectomy, for stage I lung cancer. The patient's chest x-ray, is showing a abnormality, in the left lung, consistent with collapse, as well, as an infiltrate, and the right lung, potentially consistent with pneumonia. This is best seen on the most recent computed tomography scan. The patient was to have bronchoscopy yesterday, but it was canceled by anesthesia because of a potassium of 5.5. This morning, her potassium was 5.3, repeat after dextrose and insulin was 5. Unfortunately, the patient has also developed atrial fibrillation with a rapid ventricular response. Anesthesia will decide whether or not move forward with a bronchoscopy. Currently labs include a white count 7.5, hemoglobin 11.8, hematocrit 36.3, and a normal platelet count. Sodium 134, potassium 5, chlorides 99, CO2 26, BUN 36, creatinine 0.71. Calcium is 8.0. The patient's chest x-ray is unchanged. On today's evaluation of 03/23/2023, the patient is being seen for a follow-up. The patient is postop day #8 as the patient underwent a robotic-assisted left upper lobectomy. The patient continues to have significant amount of opacification of the left lung and today's chest x-ray along with volume loss and this is consistent with mucus plugging. Based on that, I performed a bronchoscopy on the patient. There was copious amount of thick purulent blister secretions occupying the left mainstem bronchus and the trachea and the various segments of the left lower lobe. Therapeutic airway suctioning was done. A bronchial lavage was done. The patient was started on IV antibiotics. She is afebrile for now. She was having issues with atrial fibrillation current rhythm is sinus and the patient remains on amiodarone 0.5 mg/m. No fever. No chills. No chest pain. Recommended utilization of CPAP was bronchoscopy to achieve better expansion of the left lung. The patient's white cell count at 7.0 with a hemoglobin 12 and a platelet count of 258. Sodium is at 135 potassium is at 5 the enzymes at 20 with a creatinine of 0.5 On today's evaluation of 03/24/2023, the patient is postop day #9. The patient underwent a robotic-assisted left upper lobe lobectomy. The patient encounter with complete atelectasis of the left lower lobe. I performed a bronchoscopy yesterday on her. There was significant amount of mucus plugging as described and therapeutic airway suctioning was done and the bronchial lavage of the left lower lobe was done. There was limited expansion of the left left lung and the subsequent chest x-ray from today shows complete opacification. The bronchial lavage was sent for microbial cultures and the patient was started on antibiotics and the patient is currently on IV Zosyn. The white cycles at 7 wit h a hemoglobin of 11.3. BUN is at 70 with a creatinine of 0.5. She has been on 2 L of Oxymizer nasal cannula with a pulse ox of 96%. In terms of her cardiac status, the patient went into atrial fibrillation with RVR this morning. She remains in atrial fibrillation fibrillation for now. Cardiology is managing the A. fib. The patient is on metoprolol 12.5 mg twice a day and amiodarone 400 mg by mouth twice a day. She is on Lovenox for DVT prophylaxis. Nontender guidance for now. Recycle Driver on the case. Echocardiogram was done and the patient had an ejection fraction of 55-60%. No other significant abnormalities of the notice. Objective - Vital Signs Vital signs: Vital Signs Temp 97.8 F 03/24/23 08:00 Pulse 68 03/24/23 08:29 Resp 18 03/24/23 08:00 BP 127/54 03/24/23 08:00 Pulse Ox 96 03/24/23 08:11 FiO2 40 03/23/23 21:31 Intake & Output 03/23/23 03/24/23 03/24/23 18:59 06:59 18:59 Intake Total 1170 240 Output Total 600 600 Balance 570 -360 Intake: IV 200 Intake, IV Titration 250 Amount Amiodarone 450 mg In 250 Dextrose 5% in Water 250 ml @ 0.5 MG/MIN 16.667 mls/hr IV .Q15H [facility] Rx#: [id number] Oral 720 240 Output: Urine 600 600 Other: Voiding Method Toilet Toilet Toilet Bedside Commode Bedside Commode # Voids 1 1 1 # Bowel Movements 1 ABP, PAP, CO, CI - Last Documented Arterial Blood Pressure 99/38 - Exam No acute distress, oriented 3. Currently on 2 L high flow nasal cannula. HEENT examination is grossly unremarkable. Mucous membranes are moist. No oral lesions. Neck supple. Full range of motion. No adenopathy thyromegaly or neck vein distention. Cardiovascular examination reveals regular rhythm rate. S1-S2 normal. No S3 or S4. No discernible murmur noted. Lungs reveal diminished bilateral breath sounds, left greater than right. Diminished breath on the left lung compared to the right. Surgical once is striking and intact. Abdomen soft bowel sounds are heard. No masses or tenderness. Extremities are intact. No cyanosis clubbing or edema. Skin is without rash or lesion. Neurologic examination is brief but nonfocal. - Labs CBC & Chem 7: 03/24/23 09:13 03/24/23 09:13 Labs: Abnormal Lab Results - Last 24 Hours (Table) 03/23/23 03/23/23 03/24/23 Range/Units 17:05 20:12 09:13 RBC 3.60 L (3.80-5.40) m/uL Hgb 11.3 L (11.4-16.0) gm/dL Sodium (137-145) mmol/L Glucose (74-99) mg/dL POC Glucose (mg/dL) 381 H 123 H (70-110) mg/dL Calcium (8.4-10.2) mg/dL 03/24/23 03/24/23 Range/Units 09:13 11:34 RBC (3.80-5.40) m/uL Hgb (11.4-16.0) gm/dL Sodium 133 L (137-145) mmol/L Glucose 157 H (74-99) mg/dL POC Glucose (mg/dL) 120 H (70-110) mg/dL Calcium 7.9 L (8.4-10.2) mg/dL Microbiology - Last 24 Hours (Table) 03/22/23 00:33 Gram Stain - Final Sputum Sputum Culture - Final Assessment and Plan Plan: Postop day # 9, status post robotically assisted thoracoscopic left upper lobectomy with mediastinal lymph node dissection, for early stage NSCLC. Left lung collapse, essentially the left lower lobe secondary to mucous plugs. Bronchoscopy was done, a vigorous suctioning of the mucous plugs was performed. Cultures were sent and the patient was placed on CPAP. 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 Unfortunately, the especially left lung was minimal and that is persistent opacification of the left chest on today's chest x-ray. There is only a small left-sided pleural effusion and the left lung base. As such, the patient may need another bronchoscopy. As mentioned, she has tracheal bronchomalacia and significant mucus plugging and she was thought on IV antibiotics. Is also s ignificant consolidation of the left lung base on the CAT scan findings. Small left-sided pleural effusion Tracheal bronchomalacia New-onset atrial fibrillation with rapid ventricular response, 03/22/2023. The patient is being managed by cardiology and the patient is currently on oral metoprolol and amiodarone. No anticoagulants for now. History of chronic obstructive pulmonary disease. History of CVA. History of diabetes mellitus. History of hypertension. History of hyperlipidemia. History of alcohol abuse and heroin abuse. History of hepatitis B and C. Plan: Repeat bronchoscopy is to be done tomorrow Awaiting the results of the bronchial alveolar lavage from the left lower lobe Continue Zosyn Encourage the use of CPAP for battery expansion of the left lung No need for thoracentesis of pleural fluid the small Daily chest x-rays Bronchodilators Symbicort Lovenox portably prophylaxis Incentive spirometer Currently on oxygen at 2 L with nasal cannula We'll continue to follow.
[2023-03-24 17:07] LABS: Glucose,Whole Blood 140 mg/dL (70-110)
[2023-03-24 20:21] LABS: Glucose,Whole Blood 176 mg/dL (70-110)
[2023-03-25] MEDS: HYDROcodone/APAP 5-325MG 1 EACH TAB PO PRN ×3 (00:13→12:39)
[2023-03-25 02:06] LABS: Glucose,Whole Blood 108 mg/dL (70-110)
[2023-03-25] MEDS: INSULIN ASPART (NovoLOG) 100 UNIT/ML VIAL SQ SCH ×8 (02:48→22:11)
[2023-03-25] MEDS: PANTOPRAZOLE 40 MG TABLET PO SCH (06:37)
[2023-03-25 07:06] LABS: HCT 35.4 % (34.0-46.0); HGB 11.3 gm/dL (11.4-16.0); Hypochromasia Slight; MCH 31.4 pg (25.0-35.0); MCV 98.1 fL (80.0-100.0); Platelet Count 232 k/uL (150-450); RBC 3.61 m/uL (3.80-5.40); RDW 13.1 % (11.5-15.5); WBC 7.4 k/uL (3.8-10.6)
[2023-03-25 07:18] LABS: African American GFR (CKD) >90 (>60 ml/min/1.73 sqM); Anion Gap 11 mmol/L; Blood Urea Nitrogen 19 mg/dL (7-17); Calcium 7.9 mg/dL (8.4-10.2); Carbon Dioxide 26 mmol/L (22-30); Chloride 99 mmol/L (98-107); Glucose 100 mg/dL (74-99); Non-African American GFR(CKD) >90 (>60 ml/min/1.73 sqM); Sodium 136 mmol/L (137-145)
[2023-03-25 07:29] LABS: Potassium 4.8 mmol/L (3.5-5.1)
[2023-03-25 07:43] LABS: Glucose,Whole Blood 131 mg/dL (70-110)
[2023-03-25] MEDS: SYMBICORT 80-4.5 MCG INHALER INHALATION SCH ×2 (08:42→22:15)
[2023-03-25] MEDS: IPRATROPIUM-ALBUTEROL 3 ML NEB IH SCH ×4 (08:42→22:15)
[2023-03-25] MEDS: ACETYLCYSTEINE 800 MG/4 ML VIAL INHALATION SCH ×4 (08:42→22:15)
--- NOTE | 2023-03-25 09:01 | P.PN ---
Subjective Progress Note Date: 03/25/23 Principal diagnosis: Insulin dependent diabetes with poor glycemic control, hyperglycemia, hypomagnesemia, left upper lobe mass positive for well-differentiated adenocarcinoma. History of current tobacco dependence, COPD, daily EtOH use, hypertension, hyperlipidemia, stroke in 2016 with right-sided weakness, hepatitis B and C, bipolar depression, IV heroin use with last use August 2018 POD#10 Robotic assisted thoracoscopic left upper lobectomy with mediastinal lymph node dissection, fiberoptic bronchoscopy for evacuation of inspissated sputum Paroxysmal atrial fibrillation, known potential complication of lung surgery Hypotension although MAP stable, not requiring pressors, resolved Left lower lobe atelectasis, mucus plug occupying the left mainstem bronchus and the left lower lobe bronchus, tracheobronchomalacia POD #2 flexible bronchoscopy, bronchial lavage of the left lower lobe The patient was seen and examined this morning sitting up in a recliner in no acute distress. Complains of pain on her left side since removal of CPAP this morning, denies shortness of breath at rest. Currently in sinus rhythm, hemodynamically stable, did have a brief run of A. fib RVR yesterday and was given extra dose of Lopressor. Currently on 3LPM NC with oxygen saturation in the mid 90s. States she has been ambulatory in the garcia without difficulty, has showered. Scheduled to undergo repeat bronch today with Dr. Lucia, we did encourage her to keep trying to cough and deep breathe. No other new concerns. Objective - Vital Signs Vital signs: Vital Signs Temp 98.2 F 03/25/23 03:17 Pulse 60 03/25/23 08:43 Resp 18 03/25/23 03:17 BP 142/60 03/25/23 03:17 Pulse Ox 99 03/25/23 03:17 FiO2 40 03/23/23 21:31 Intake & Output 03/24/23 03/25/23 03/25/23 18:59 06:59 18:59 Intake Total 480 240 Output Total 1250 200 Balance -770 40 Intake: Oral 480 240 Output: Urine 1250 200 Other: Voiding Method Toilet Toilet # Voids 1 1 ABP, PAP, CO, CI - Last Documented Arterial Blood Pressure 99/38 - Exam CONSTITUTIONAL: Appears comfortable, cooperative, no acute distress RESPIRATORY: Lungs sounds diminished on the left. Respirations even, nonlabored. Currently on 3 LPM NC with oxygen saturation 96%. Able to achieve 1000 mL on incentive spirometry. Strong cough. CARDIOVASCULAR: S1, S2 present. Regular rate and rhythm, sinus rhythm on telemetry. Palpable peripheral pulses bilaterally. No edema present. No calf pain or tenderness noted GASTROINTESTINAL: Abdomen soft, nontender, nondistended. Active bowel sounds present 4 quadrants. Tolerating diet. Positive bowel movement 03/24 INTEGUMENTARY: Skin is warm and dry. Thoracic incisions well approximated NEUROLOGIC: Cranial nerves II through XII intact MUSKULOSKELETAL: Able to move all extremities, strength equal bilaterally PSYCHIATRIC: Alert and oriented to person place and time, flat affect - Allied health notes Allied health notes reviewed: nursing - Labs CBC & Chem 7: 03/25/23 06:25 03/25/23 06:25 Labs: Abnormal Lab Results - Last 24 Hours (Table) 03/24/23 03/24/23 03/24/23 Range/Units 09:13 09:13 09:13 RBC 3.60 L (3.80-5.40) m/uL Hgb 11.3 L (11.4-16.0) gm/dL Sodium 133 L (137-145) mmol/L BUN (7-17) mg/dL Glucose 157 H (74-99) mg/dL POC Glucose (mg/dL) (70-110) mg/dL Calcium 7.9 L (8.4-10.2) mg/dL Procalcitonin 0.19 H (0.02-0.09) ng/mL 03/24/23 03/24/23 03/24/23 Range/Units 11:34 17:05 20:18 RBC (3.80-5.40) m/uL Hgb (11.4-16.0) gm/dL Sodium (137-145) mmol/L BUN (7-17) mg/dL Glucose (74-99) mg/dL POC Glucose (mg/dL) 120 H 140 H 176 H (70-110) mg/dL Calcium (8.4-10.2) mg/dL Procalcitonin (0.02-0.09) ng/mL 03/25/23 03/25/23 03/25/23 Range/Units 06:25 06:25 07:40 RBC 3.61 L (3.80-5.40) m/uL Hgb 11.3 L (11.4-16.0) gm/dL Sodium 136 L (137-145) mmol/L BUN 19 H (7-17) mg/dL Glucose 100 H (74-99) mg/dL POC Glucose (mg/dL) 131 H (70-110) mg/dL Calcium 7.9 L (8.4-10.2) mg/dL Procalcitonin (0.02-0.09) ng/mL Microbiology - Last 24 Hours (Table) 03/23/23 11:00 Acid Fast Bacilli Smear - Preliminary Bronchoalviolar Lavage - Left 03/22/23 00:33 Gram Stain - Final Sputum Sputum Culture - Final - Imaging and Cardiology Chest x-ray: image reviewed Assessment and Plan Assessment: Insulin dependent diabetes with poor glycemic control, hyperglycemia, A1c 9.8% Hypomagnesemia Left upper lobe mass positive for well-differentiated adenocarcinoma, status post left upper lobectomy Current tobacco dependence Moderate COPD, preoperative FEV1 54% of predicted, DLCO 36% of predicted Current daily EtOH use Hypertension Hyperlipidemia Stroke in 2016 with right-sided weakness Hepatitis B and C Bipolar depression History of IV heroin use with last use August 2018 Paroxysmal atrial fibrillation, currently sinus rhythm Left lung collapse, left lung opacification, status post bronchoscopy performed by Dr. Reynolds 03/19/23 Left lower lobe atelectasis, mucus plug occupying the left mainstem bronchus and the left lower lobe bronchus, tracheobronchomalacia, status post flexible bronchoscopy, bronchial lavage of the left lower lobe by Dr. Lucia 03/23/23 Plan: Continue amiodarone, beta ana maría for A. fib per cardiology recommendation. No anticoagulation due to recent surgery, repeated bronchoscopies Continue to improve blood glucose control, insulin adjustments made by primary service, continue to up titrate insulin Increase activity, ambulate as tolerated. Patient should be out of bed for all meals, she should be out of bed the majority of the day and use the bed for sleeping at nighttime only Wean oxygen as tolerated. Encourage incentive spirometry 10x every hour while awake. Bronchodilators per pulmonology. Repeat bronchoscopy today per Dr. Lucia Monitor for alcohol withdrawal, unlikely now the patient has been in the hospit al for 14 [address] Nicotine patch in place Smoking cessation counseling and education reinforced Continue Tylenol for pain control Will continue to monitor daily CXR, labs Medical management of other comorbidities per internal medicine
[2023-03-25] MEDS: PIPERACILLIN-TAZOBACTAM 3.375 GM in SODIUM CHLORIDE 0.9% 100 ML IVPB SCH ×2 (09:28→17:20)
[2023-03-25] MEDS: ENOXAPARIN 40 MG/0.4 ML SYRINGE SQ SCH (09:28)
[2023-03-25] MEDS: FOLIC ACID 1 MG TAB PO SCH (09:28)
[2023-03-25] MEDS: MAGNESIUM OXIDE 400 MG TAB PO SCH ×2 (09:28→22:11)
[2023-03-25] MEDS: THIAMINE 100 MG TAB PO SCH (09:28)
[2023-03-25] MEDS: GABAPENTIN 400 MG CAP PO SCH ×3 (09:28→22:10)
[2023-03-25] MEDS: METOPROLOL TARTRATE 12.5 MG TAB PO SCH ×2 (09:28→22:11)
[2023-03-25] MEDS: ATORVASTATIN 10 MG TAB PO SCH (09:28)
[2023-03-25] MEDS: AMIODARONE 200 MG TAB PO SCH ×2 (09:28→22:10)
[2023-03-25] MEDS: NICOTINE 7MG/24HR PATCH TRANSDERM SCH (09:35)
[2023-03-25] MEDS: SODIUM CHLORIDE TAB 1 GM TAB PO SCH ×2 (09:35→22:11)
--- NOTE | 2023-03-25 09:45 | XR ---
EXAMINATION TYPE: XR chest 2V DATE OF EXAM: 03/25/2023 6:20 AM CLINICAL INDICATION:Female, 57 years old with history of post lobectomy; [facility] COMPARISON: Chest radiograph from one day prior. TECHNIQUE: XR chest 2V Frontal and lateral views of the chest. FINDINGS: Lungs/Pleura: Complete opacification of the left lung. There is no evidence for focal consolidation o r pneumothorax. Similar small right pleural effusion. Pulmonary vascularity: Unremarkable. Heart/mediastinum: Cardiomediastinal silhouette is partially obscured due to overlying and adjacent o pacities. Musculoskeletal: No acute osseous pathology. IMPRESSION: 1. Likely complete opacification of the left lung likely secondary to atelectasis and large pleural effusion. No pneumothorax visualized. 2. Small right effusion
[2023-03-25 11:23] LABS: Glucose,Whole Blood 136 mg/dL (70-110)
--- NOTE | 2023-03-25 11:46 | P.PN ---
Subjective HISTORY OF PRESENT ILLNESS: 03/23/23 This is a pleasant 57-year-old female who underwent left upper lobe lobectomy on 1217 for non-small cell lung cancer. She has a history of nicotine dependence, hypertension and diabetes as well as hyperlipidemia. We were consulted postoperatively for atrial fibrillation. She was initiated on IV amiodarone with a bolus and drip. She remains on amiodarone drip was in sinus mechanism until this morning and went into atrial fibrillation with RVR. She has not been anticoagulated due to bronchoscopy scheduled for this morning. Remains in atrial fibrillation. At the time of my examination she is resting comfortably in a recliner at the bedside. Complains of her chest feeling sore. She does have some very mild shortness of breath. She is on 2 L nasal cannula. Denies any orthopnea or PND. 03/24/2023 Patient examined this morning at the bedside. Patient denies chest pain or pressure. She currently denies shortness of breath. Patient was in sinus mechanism this morning with a heart rate in the 50s to 60s. However upon examination she has been back into A. fib with RVR with heart rate of 130. She denies any palpitations. 03/17/2023 Patient examined this morning. Patient is sitting up in the chair. She denies chest pain or pressure. She reports shortness of breath today and states she is having pain around her ribs secondary to excessive coughing. At the time of examination the patient was in sinus mechanism with heart rate in the 50s. However she has went back into atrial fibrillation with heart rate between [id number]. PHYSICAL EXAM: VITAL SIGNS: Reviewed. GENERAL: Well-developed in no acute distress. NECK: Supple. No JVD or thyromegaly LUNGS: Respirations even and unlabored. Lungs diminished to auscultation bilaterally. HEART: Tachycardic. Irregular rate and rhythm. S1 and S2 heard. EXTREMITIES: Normal range of motion. No clubbing or cyanosis. Peripheral pulses intact. No lower extremity edema ASSESSMENT: Paroxysmal atrial fibrillation with RVR Sinus bradycardia Left upper lobe mass, positive for well-differentiated adenocarcinoma, status post left upper lobectomy Left lung collapse, left lung opacification, status post bronchoscopy 03/19/2023 Left lower lobe atelectasis with mucous plugging, status post bronchoscopy, 03/23/2023 Hypertension Hyperlipidemia Diabetes PLAN: Patient scheduled for repeat bronchoscopy today with pulmonary services Continue oral amiodarone Patient currently in atrial fibrillation with a heart rate around 110. We will continue with current dose of metoprolol at this time as patient has been going in and out of atrial fibrillation and is bradycardic with a heart rate in the 40s50s when she is in sinus mechanism. Continue telemetry monitoring Recommend anticoagulation when/if okay with cardiothoracic surgery Further recommendations pending patient's course Nurse practitioner note has been reviewed by physician. Signing provider agrees with the documented findings, assessment, and plan of care. Objective - Vital Signs Vital signs: Vital Signs Temp 98.2 F 03/25/23 03:17 Pulse 111 H 03/25/23 10:48 Resp 18 03/25/23 10:48 BP 101/68 03/25/23 09:23 Pulse Ox 98 03/25/23 09:23 FiO2 40 03/23/23 21:31 Intake & Output 03/24/23 03/25/23 03/25/23 18:59 06:59 18:59 Intake Total 480 240 Output Total 1250 200 300 Balance -770 40 -300 Intake: Oral 480 240 Output: Urine 1250 200 300 Other: Voiding Method Toilet Toilet Toilet # Voids 1 1 ABP, PAP, CO, CI - Last Documented Arterial Blood Pressure 99/38 - Labs CBC & Chem 7: 03/25/23 06:25 03/25/23 06:25 Labs: Abnormal Lab Results - Last 24 Hours (Table) 03/24/23 03/24/23 03/24/23 Range/Units 09:13 17:05 20:18 RBC (3.80-5.40) m/uL Hgb (11.4-16.0) gm/dL Sodium (137-145) mmol/L BUN (7-17) mg/dL Glucose (74-99) mg/dL POC Glucose (mg/dL) 140 H 176 H (70-110) mg/dL Calcium (8.4-10.2) mg/dL Procalcitonin 0.19 H (0.02-0.09) ng/mL 03/25/23 03/25/23 03/25/23 Range/Units 06:25 06:25 07:40 RBC 3.61 L (3.80-5.40) m/uL Hgb 11.3 L (11.4-16.0) gm/dL Sodium 136 L (137-145) mmol/L BUN 19 H (7-17) mg/dL Glucose 100 H (74-99) mg/dL POC Glucose (mg/dL) 131 H (70-110) mg/dL Calcium 7.9 L (8.4-10.2) mg/dL Procalcitonin (0.02-0.09) ng/mL 03/25/23 Range/Units 11:18 RBC (3.80-5.40) m/uL Hgb (11.4-16.0) gm/dL Sodium (137-145) mmol/L BUN (7-17) mg/dL Glucose (74-99) mg/dL POC Glucose (mg/dL) 136 H (70-110) mg/dL Calcium (8.4-10.2) mg/dL Procalcitonin (0.02-0.09) ng/mL Microbiology - Last 24 Hours (Table) 03/23/23 11:00 Gram Stain - Preliminary Bronchoalviolar Lavage - Left 03/23/23 11:00 Acid Fast Bacilli Smear - Preliminary Bronchoalviolar Lavage - Left 03/22/23 00:33 Gram Stain - Final Sputum Sputum Culture - Final
--- NOTE | 2023-03-25 12:21 | P.PN ---
Subjective Patient is a 57-year-old female came in for elective pulmonary lobectomy for lung cancer found to have highly elevated blood sugars of 500 because of which patient was admitted patient last hemoglobin A1c was more than a year ago at that time it was 7.5 it appears patient may be noncompliant. Patient admits to drinking vodka with watermelon juice last night. Patient does have history of COPD continues to smoke 5 cigarettes per day is bit hypoxic. Chest x-ray showed some interstitial prominence although clinically patient doesn't appear to be in CHF patient does take 20 mg of Lasix at home patient has chronic venous stasis dermatosis of both legs and will be dermatitis. Patient is on Trulicity, 20 units of long-acting insulin along with metformin at home for diabetes with us. Patient blood sugars is presently about 300. Patient had a chest xray showing 1.2 cm let upper lobe pulmonary mass. She will be going for lung resection on . 03/12/2023 Patient sitting up in bed today. Needs to be up in the chair for the day. Patien t verbalized understanding. Blood glucose remains elevated. Levemir will be increased and scheduled insulin added. 03/13/2023 Patient evaluated [facility]. She is sitting up in the chair no acute complaints overnight. She is scheduled to undergo elective lobe resection on Wednesday. Blood glucose remains elevated at this time it has come down into the 190s however back up to 365. She is on a combination of sliding scale insulin as well as 3 units of scheduled and 25 units daily Levemir. These have been increased today. 03/14/2023 Patient is evaluated today, sitting up in chair. Patient to undergo elective lobe resection on wednesday with CT surgery. No acute complaints. Blood glucose remains elevated but overall improved, fluctuating between 188-312 this afternoon. 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 She will be monitored postoperatively in the ICU. Blood glucose this AM down to 150 and 176. Still fluctuating in to the high 200s. Will continue with current regimen as patient will be NPO for surgery to avoid hypoglycemia. If she remains elevated insulin will be further increased. 03/16/2023 Patient is evaluated today in the ICU postoperative day #1 left upper lobectomy. Patient has left CT in place with chest xray today showing left-sided consolidation and small effusion with no sizable pneumothorax. Labs showing white count of 11.2, sodium level of 35. BUN 14, creatinine 0.49. Magnesium 1.4. Glucose has been slowly improving. Patient has been afebrile, heart rate 80s, blood pressure on the lower side 95/38. On 2L of oxygen. 03/17/2023 Patient presents with non-small lung cancer of the left upper lobe status post robotic assisted thoracoscopic left upper lobectomy on 03/15. Today postop day #2. Patient was transferred out of the ICU to the select unit today morning. Patient was lying in bed looks tired. Left chest tube in place but later on her chest tube was removed. Chest x-ray showing no sizable pneumothorax but persistent postop changes with a stable left lower lobe consolidation. Patient blood pressure on the low normal side about 88/51, no dizziness. Currently she is on 2 L oxygen via nasal cannula. She had a fever on 03/14 but no more fevers since then. She has mild leukocytosis coming down to 11.2 down to 10.7. Liver enzymes mildly elevated. Sodium 127 Glucose more than 200, she is on Lantus 15 units at home and she was taken here as of yesterday Levemir 25 units daily and 8 units at bedtime, we change and fat to Levemir 30 units daily starting tomorrow. Also she is on insulin sliding scale. We going to increase her NovoLog 5 units with meals up to 9 units and change her Levemir to 30 units daily with close monitoring of her glucose. Her amiodarone drip was stopped and switched to oral amiodarone. 03/18/2023 Patient become hypotensive overnight, her night, but time murmurs held her beta ana maría and amiodarone, she developed tachycardia with heart rate was 120-1:30, she was also hypotensive blood pressure 83/73 therefore patient was transferred back to the intensive care unit. This morning she is awake and alert, in mild distress due to severe weakness. She denies chest pain or dyspnea this morning. She was started back on amiodarone drip by drop hammer operator helper and blood pressure improved 113/61. Heart rate is also improved but EKG today showed sinus rhythm at 72 with occasional PVCs She received 1 L of normal saline Chest x-ray showing slightly worse consolidation especially on the left side probably due to fluid accumulation. Patient does not have a fever, she has mild leukocytosis which is a stable. No strong evidence of infection patient currently off antibiotic. Sodium 127 most likely hypovolemic hyponatremia. She remains on amiodarone drip, Lovenox for DVT prophylaxis After sugars still more than 200, we will continue with Levemir 30 units and increase NovoLog 9 up to 12 units with meals Chest the tube already removed yesterday from the left side. Review of systems CONSTITUTIONAL: No fever, no malaise, no fatigue. HEENT: No recent visual problems or hearing problems. Denied any sore throat. CARDIOVASCULAR: No orthopnea, PND, no palpitations, no syncope. PULMONARY: No chest wall tenderness GastrointestiL: No diarrhea, no nausea, no vomiting, no abdominal pain. Normoact yadira bowel sounds. NEUROLOGICAL: No headaches, no weakness, no numbness. 03/23/2023 Patient transferred from the ICU yesterday. She isn't select unit complaining of from mild tachypnea. Chest decreased breath sounds on the left side Chest x-ray showing near complete opacification of the left lung. Plan for repeat bronchoscopy of the left side with incentive spirometry encouraged. May resume anticoagulation was cleared by cardiothoracic surgery after the scope. She is currently on 3 L oxygen via nasal cannula, she is not on oxygen at home. Amiodarone is admitted today by cardiology team as well and continue metoprolol 12.5 mg 03/24/2023 pt is s/p bronchoscopy yesterday for near complete opcification of the left lung thought secondary to mucous plug, today she has the same problem yesterday with near complete opacification of the left flank with exertional dyspnea although she saturating 96% while at rest No chest pain no significant coughing, does not look in respiratory distress. She was started on Zosyn for possible pneumonia competent. Procal. was elevated 0.56 and 03/21. No signs of alcohol withdrawal Currently on amiodarone 400 mg Cardiology following for A. fib, currently and the cartilage remaining on hold Patient agreement to [facility] and continue treatment for an 03/25/2023 Patient still complaining of from dyspnea, chest x-ray shows some persistent complete opacification of the left lung with collapse. Plan for bronchoscopy today. Eliquis remains on hold. Continue with amiodarone and metoprolol for control of A. fib rate Objective - Vital Signs Vital signs: Vital Signs Temp 98.2 F 03/25/23 03:17 Pulse 103 H 03/25/23 12:07 Resp 18 03/25/23 12:07 BP 103/69 03/25/23 12:07 Pulse Ox 96 03/25/23 12:07 FiO2 40 03/23/23 21:31 Intake & Output 03/24/23 03/25/23 03/25/23 18:59 06:59 18:59 Intake Total 480 240 Output Total 1250 200 300 Balance -770 40 -300 Intake: Oral 480 240 Output: Urine 1250 200 300 Other: Voiding Method Toilet Toilet Toilet # Voids 1 1 ABP, PAP, CO, CI - Last Documented Arterial Blood Pressure 99/38 - Exam GENERAL: The patient is alert and oriented x3, not in any acute distress. Well developed, well nourished. HEENT: Pupils are round and equally reacting to light. EOMI. No scleral icterus. No conjunctival pallor. Normocephalic, atraumatic. No pharyngeal erythema. No thyromegaly. CARDIOVASCULAR: S1 and S2 present. No murmurs, rubs, or gallops. -PULMONARY: Chest is clear to auscultation, no wheezing , no crackles. chest t ube in place ABDOMEN: Soft, nontender, nondistended, normoactive bowel sounds. No palpable organomegaly. MUSCULOSKELETAL: No joint swelling or deformity. EXTREMITIES: No cyanosis, clubbing, or pedal edema. NEUROLOGICAL: Gross neurological examination did not reveal any focal deficits. SKIN: No rashes. no petechiae. - Labs CBC & Chem 7: 03/25/23 06:25 03/25/23 06:25 Labs: Abnormal Lab Results - Last 24 Hours (Table) 03/24/23 03/24/23 03/24/23 Range/Units 09:13 17:05 20:18 RBC (3.80-5.40) m/uL Hgb (11.4-16.0) gm/dL Sodium (137-145) mmol/L BUN (7-17) mg/dL Glucose (74-99) mg/dL POC Glucose (mg/dL) 140 H 176 H (70-110) mg/dL Calcium (8.4-10.2) mg/dL Procalcitonin 0.19 H (0.02-0.09) ng/mL 03/25/23 03/25/23 03/25/23 Range/Units 06:25 06:25 07:40 RBC 3.61 L (3.80-5.40) m/uL Hgb 11.3 L (11.4-16.0) gm/dL Sodium 136 L (137-145) mmol/L BUN 19 H (7-17) mg/dL Glucose 100 H (74-99) mg/dL POC Glucose (mg/dL) 131 H (70-110) mg/dL Calcium 7.9 L (8.4-10.2) mg/dL Procalcitonin (0.02-0.09) ng/mL 03/25/23 Range/Units 11:18 RBC (3.80-5.40) m/uL Hgb (11.4-16.0) gm/dL Sodium (137-145) mmol/L BUN (7-17) mg/dL Glucose (74-99) mg/dL POC Glucose (mg/dL) 136 H (70-110) mg/dL Calcium (8.4-10.2) mg/dL Procalcitonin (0.02-0.09) ng/mL Microbiology - Last 24 Hours (Table) 03/23/23 11:00 Gram Stain - Preliminary Bronchoalviolar Lavage - Left 03/23/23 11:00 Acid Fast Bacilli Smear - Preliminary Bronchoalviolar Lavage - Left 03/22/23 00:33 Gram Stain - Final Sputum Sputum Culture - Final Assessment and Plan Assessment: -Lung cancer was recently diagnosed with non small cell and is now status post upper lobectomy with cardiothoracic surgery following closely.. Patient monitored in the ICU postoperatively and transferred to the general medical floor at [facility] [place] -Near-complete opacification of the left lung -Acute hypoxic respiratory failure -Diabetes mellitus with hyperglycemia -Hypotension, improved -Hypovolemic hypernatremia -COPD without any acute exacerbation -hyperlipidemia -Hypertension -hypervascular disease -continued nicotine use: Counseling was provided Plan: Patient will require bronchoscopy Continue with amiodarone for cardiothoracic surgery team Change insulin to Levemir 30 units daily and NovoLog 12 units with meals with insulin sliding scale and close monitoring of sugar. Chest tube was removed by cardiothoracic surgery team continue Zosyn Pulmonary consult on the case Patient started on sodium tablets We recommend fluid restriction, currently 1500 per day Labs and medication were reviewed.. Continue same treatment. Continue with symptomatic treatment. Resume home medication. Monitor labs and vitals. DVT and GI prophylaxis. Further recommendations as per clinical course of the patie nt DVT prophylaxis: Subcutaneous Lovenox GI Prophylaxis: Pepcid PT/OT: Home health care Prognosis is guarded
--- NOTE | 2023-03-25 12:40 | P.PN ---
Subjective Progress Note Date: 03/25/23 This is a 57-year-old female who was admitted for possible left upper lobectomy, by Dr. June. Initially, the patient had a significant elevation in her blood, and the surgery was delayed. It was finally done today. He did call me after the procedure. In December of this year, my partner, did a flexible bronchoscopy, robotically-assisted bronchoscopy, and biopsies, the lesion, and the left upper lobe. The biopsies were positive for well-differentiated pulmonary adenocarcinoma. Currently, the patient's resting comfortably in the intensive care unit. The patient's on 4 L of oxygen, and getting saline at 50 mL an hour. Again as I mentioned above, I did speak to the surgeon about this patient. He was concerned that she may need bronchoscopy over the next few days, for left lung collapse. Apparently her airways were full of mucus. Currently labs data only includes a glucose of 260. Chest x-ray shows a left- sided consolidation and a small effusion, with no sizable pneumothorax. Chest tube is noted. Labs from yesterday include a white count of 5.9, hemoglobin 13.4, hematocrit 39.7, and a platelet count of 96,000. Sodium 137, potassium 4.3, chlorides 102, CO2 27, UN 15, and creatinine 0.7. N-terminal proBNP was 166. Progress note dated 03/16/2023. 57-year-old female postop day #1, status post robotically assisted thoracoscopic left upper lobectomy for lung cancer. The patient is seen today in room 257. She is on 2 L of oxygen. She's getting saline at 50 mL an hour. According to the nurses, the patient had an uneventful night. The patient's resting comfortably in bed. Again, she is on 2 L, by nasal cannula. White count 11.2, hemoglobin 13.4, and platelet count 105,000. Sodium 135, potassium 3.9, chlorides 99, CO2 28, BUN 14, creatinine 0.49. Magnesium 1.4. Chest x-rays shows some volume loss in the left lung, with some left-sided consolidation, and a small effusion. Progress note dated 03/17/2023. 57-year-old female, postop day #2, status post robotically assisted thoracoscopic left upper lobectomy for lung cancer. The patient is seen today in room 362. She's currently on room air, but saturations are only 87%. I asked respiratory therapy to place her on oxygen at 2 L. The left-sided chest tube had been removed. She's getting saline at 10 mL an hour. White count is 10.7, hemoglobin 13.1, hematocrit 40, and platelet count 108,000. Sodium 127, potassium 4.2, chlorides 94, CO2 25, BUN 31, and creatinine 0.71. Calcium is 8.2. Magnesium is 2.2. Chest x-ray from today shows postoperative changes, with stable left-sided consolidation and small pleural effusion. No pneumothorax is seen. Progress note dated 03/18/2023. 57-year-old female, postoperative day #3, status post robotically assisted thoracoscopic left upper lobectomy for early stage lung cancer. The patient was outside on the general floor, but came back into the intensive care unit, room 251, because of atrial fibrillation with rapid ventricular response. Currently, she is seen in the ICU, and is currently on 7 L high flow oxygen, and amiodarone at 1 mg/m. We did make her nothing by mouth after midnight, for possible bronchoscopy tomorrow. Her chest x-ray shows partial collapse of the left lung. White count is 10.7, hemoglobin 0.9, hematocrit 38.6, with a platelet count of 141,000. Sodium 127, potassium 4.2, chlorides 94, CO2 22, BUN 50, and creatinine 0.85. Glucose 223. Albumin is 2.9. Chest x-ray shows increasing left-sided consolidation and pleural effusion, with volume loss. There may be a tiny left apical pneumothorax. Progress note dated 03/19/2023. 57-year-old female postop day #4, status post robotically assisted thoracoscopic left upper lobectomy for early stage lung cancer. The patient was out on the general medical floor, but came back to the intensive care unit, because of atrial fibrillation/RVR. The patient's most recent chest x-ray shows near complete collapse of the left lung, so, the patient will undergo bronchoscopy sometime today. She's currently seen in the intensive care unit, room 251. The patient is on 4 L of oxygen. She's currently on amiodarone at 0.5 mg/m. The bronchoscopy was done at the bedside, with the aid of anesthesia. White count is 8.4, hemoglobin 12.9, hematocrit 36.6, and lately count 95,000. Sodium 127, potassium 5, chlorides 97, CO2 20, BUN 53, creatinine 0.81. Calcium is 8.2. Ch est x-ray shows near complete opacification of the left lung. Progress note dated 03/20/2023. 57-year-old female, postop day #5, status post robotically assisted thoracoscopic left upper lobectomy for early stage lung cancer. The patient is seen today in room 251. Yesterday, because of left lung collapse, she underwent bronchoscopy. It was done at the bedside, with the help of anesthesia. Ca rdiothoracic surgery setting her for a CAT scan without contrast today. She is a 3 S. overflow patient. He is on 2 L. She's not receiving any IV fluids. White count 10.5, hemoglobin 13.2, hematocrit 39.8, and platelet count is normal. Sodium 127, potassium 5.3, chlorides 98, CO2 18, BUN 54, creatinine 0.84. Calcium is 8.4. Chest x-ray shows improved aeration, left upper lobe. Progress note dated 03/21/2023. 57-year-old female, postop day #6, status post robotically assisted thoracoscopi c left upper lobectomy for early stage lung cancer. The patient's chest x-ray today shows a developing infiltrate in the right lung, also seen on computed tomography scan, and nearly complete left lung collapse. The patient has had previous bronchoscopy, and will have another one today. He's currently on 2 L. No IV fluids. We did send in a pro-calcitonin level. She is currently not on any antibiotics. No new labs today. Progress note dated 03/22/2023. 57-year-old female, postoperative day #7, status post robotically assisted thoracoscopic left upper lobectomy, for stage I lung cancer. The patient's chest x-ray, is showing a abnormality, in the left lung, consistent with collapse, as well, as an infiltrate, and the right lung, potentially consistent with pneumonia. This is best seen on the most recent computed tomography scan. The patient was to have bronchoscopy yesterday, but it was canceled by anesthesia because of a potassium of 5.5. This morning, her potassium was 5.3, repeat after dextrose and insulin was 5. Unfortunately, the patient has also developed atrial fibrillation with a rapid ventricular response. Anesthesia will decide whether or not move forward with a bronchoscopy. Currently labs include a white count 7.5, hemoglobin 11.8, hematocrit 36.3, and a normal platelet count. Sodium 134, potassium 5, chlorides 99, CO2 26, BUN 36, creatinine 0.71. Calcium is 8.0. The patient's chest x-ray is unchanged. On today's evaluation of 03/23/2023, the patient is being seen for a follow-up. The patient is postop day #8 as the patient underwent a robotic-assisted left upper lobectomy. The patient continues to have significant amount of opacification of the left lung and today's chest x-ray along with volume loss and this is consistent with mucus plugging. Based on that, I performed a bronchoscopy on the patient. There was copious amount of thick purulent blister secretions occupying the left mainstem bronchus and the trachea and the various segments of the left lower lobe. Therapeutic airway suctioning was done. A bronchial lavage was done. The patient was started on IV antibiotics. She is afebrile for now. She was having issues with atrial fibrillation current rhythm is sinus and the patient remains on amiodarone 0.5 mg/m. No fever. No chills. No chest pain. Recommended utilization of CPAP was bronchoscopy to achieve better expansion of the left lung. The patient's white cell count at 7.0 with a hemoglobin 12 and a platelet count of 258. Sodium is at 135 potassium is at 5 the enzymes at 20 with a creatinine of 0.5 On today's evaluation of 03/24/2023, the patient is postop day #9. The patient underwent a robotic-assisted left upper lobe lobectomy. The patient encounter with complete atelectasis of the left lower lobe. I performed a bronchoscopy yesterday on her. There was significant amount of mucus plugging as described and therapeutic airway suctioning was done and the bronchial lavage of the left lower lobe was done. There was limited expansion of the left left lung and the subsequent chest x-ray from today shows complete opacification. The bronchial lavage was sent for microbial cultures and the patient was started on antibiotics and the patient is currently on IV Zosyn. The white cycles at 7 wit h a hemoglobin of 11.3. BUN is at 70 with a creatinine of 0.5. She has been on 2 L of Oxymizer nasal cannula with a pulse ox of 96%. In terms of her cardiac status, the patient went into atrial fibrillation with RVR this morning. She remains in atrial fibrillation fibrillation for now. Cardiology is managing the A. fib. The patient is on metoprolol 12.5 mg twice a day and amiodarone 400 mg by mouth twice a day. She is on Lovenox for DVT prophylaxis. Nontender guidance for now. Urgent Care Technician on the case. Echocardiogram was done and the patient had an ejection fraction of 55-60%. No other significant abnormalities of the notice. On today's evaluation of 03/17/2023, the patient is postop day #10 pH is scheduled to undergo another bronchoscopy today. She is a CPAP overnight. Chest x-ray findings are unchanged in the left lung is still opacified. His sputum sample was negative. The bronchoalveolar lavage yielded gram-negative bacillus and the patient awaiting final cultures and meanwhile she is covered with IV Zosyn. No fever. No chills. No significant respiratory distress at rest. The white cell count at 7.4, hemoglobin 11.3 and a platelet count of 232. BUN is at 19 with a creatinine of 0.6. The plan is to undergo another bronchoscopy today. Noted the patient had tracheal bronchomalacia, significant mucus plugging and narrowing of the left lower lobe bronchus. The stump to the left upper lobe bronchus was within normal limits. Objective - Vital Signs Vital signs: Vital Signs Temp 98.2 F 03/25/23 03:17 Pulse 111 H 03/25/23 10:48 Resp 18 03/25/23 10:48 BP 101/68 03/25/23 09:23 Pulse Ox 98 03/25/23 09:23 FiO2 40 03/23/23 21:31 Intake & Output 03/24/23 03/25/23 03/25/23 18:59 06:59 18:59 Intake Total 480 240 Output Total 1250 200 300 Balance -770 40 -300 Intake: Oral 480 240 Output: Urine 1250 200 300 Other: Voiding Method Toilet Toilet Toilet # Voids 1 1 ABP, PAP, CO, CI - Last Documented Arterial Blood Pressure 99/38 - Exam No acute distress, oriented 3. Currently on 2 L high flow nasal cannula. HEENT examination is grossly unremarkable. Mucous membranes are moist. No oral lesions. Neck supple. Full range of motion. No adenopathy thyromegaly or neck vein distention. Cardiovascular examination reveals regular rhythm rate. S1-S2 normal. No S3 or S4. No discernible murmur noted. Lungs reveal diminished bilateral breath sounds, left greater than right. Diminished breath on the left lung compared to the right. Surgical once is striking and intact. Abdomen soft bowel sounds are heard. No masses or tenderness. Extremities are intact. No cyanosis clubbing or edema. Skin is without rash or lesion. Neurologic examination is brief but nonfocal. - Labs CBC & Chem 7: 03/25/23 06:25 03/25/23 06:25 Labs: Abnormal Lab Results - Last 24 Hours (Table) 03/24/23 03/24/23 03/24/23 Range/Units 09:13 11:34 17:05 RBC (3.80-5.40) m/uL Hgb (11.4-16.0) gm/dL Sodium (137-145) mmol/L BUN (7-17) mg/dL Glucose (74-99) mg/dL POC Glucose (mg/dL) 120 H 140 H (70-110) mg/dL Calcium (8.4-10.2) mg/dL Procalcitonin 0.19 H (0.02-0.09) ng/mL 03/24/23 03/25/23 03/25/23 Range/Units 20:18 06:25 06:25 RBC 3.61 L (3.80-5.40) m/uL Hgb 11.3 L (11.4-16.0) gm/dL Sodium 136 L (137-145) mmol/L BUN 19 H (7-17) mg/dL Glucose 100 H (74-99) mg/dL POC Glucose (mg/dL) 176 H (70-110) mg/dL Calcium 7.9 L (8.4-10.2) mg/dL Procalcitonin (0.02-0.09) ng/mL 03/25/23 03/25/23 Range/Units 07:40 11:18 RBC (3.80-5.40) m/uL Hgb (11.4-16.0) gm/dL Sodium (137-145) mmol/L BUN (7-17) mg/dL Glucose (74-99) mg/dL POC Glucose (mg/dL) 131 H 136 H (70-110) mg/dL Calcium (8.4-10.2) mg/dL Procalcitonin (0.02-0.09) ng/mL Microbiology - Last 24 Hours (Table) 03/23/23 11:00 Gram Stain - Preliminary Bronchoalviolar Lavage - Left 03/23/23 11:00 Acid Fast Bacilli Smear - Preliminary Bronchoalviolar Lavage - Left 03/22/23 00:33 Gram Stain - Final Sputum Sputum Culture - Final Assessment and Plan Plan: Postop day # 10, status post robotically assisted thoracoscopic left upper lobectomy with mediastinal lymph node dissection, for early stage NSCLC. Left lung collapse, essentially the left lower lobe secondary to mucous plugs. Bronchoscopy was done, a vigorous suctioning of the mucous plugs was performed. Cultures were sent and the patient was placed on CPAP. 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 Unfortunately, the especially left lung was minimal and that is persistent opacification of the left chest on today's chest x-ray. There is only a small left-sided pleural effusion and the left lung base. As such, the patient may need another bronchoscopy. As mentioned, she has tracheal bronchomalacia and significant mucus plugging and she was thought on IV antibiotics. Is also significant consolidation of the left lung base on the CAT scan findings. Acute hypoxic respiratory failure currently on 2 L of Oxymizer nasal cannula Small left-sided pleural effusion Tracheal bronchomalacia New-onset atrial fibrillation with rapid ventricular response, 03/22/2023. The patient is being managed by cardiology and the patient is currently on oral metoprolol and amiodarone. No anticoagulants for now. The patient is back into sinus mechanism History of chronic obstructive pulmonary disease. History of CVA. History of diabetes mellitus. History of hypertension. History of hyperlipidemia. History of alcohol abuse and heroin abuse. History of hepatitis B and C. Plan: Chest x-ray findings of essentially unchanged Repeat bronchoscopy to be done today Awaiting the results of the bronchial alveolar lavage from the left lower lobe, there is suspicion for gram-negative infection as the bronchial lavage showing gram-negative bacillus Continue Zosyn Encourage the use of CPAP for battery expansion of the left lung No need for thoracentesis of pleural fluid the small Daily chest x-rays Bronchodilators Symbicort Lovenox portably prophylaxis Incentive spirometer Currently on oxygen at 2 L with nasal cannula We'll continue to follow.
[2023-03-25 13:26] VITALS: BMI 32.1
[2023-03-25] MEDS ORDERED: PROPOFOL 10 MG/ML 20 ML VIAL IV ONE (15:23)
[2023-03-25] MEDS ORDERED: MIDAZOLAM 2 MG/2 ML VIAL ONE (15:23)
[2023-03-25] MEDS ORDERED: LIDOCAINE 1% INJ 10MG/ML (20 ML MDV) ONE (15:23)
[2023-03-25] MEDS ORDERED: KETAMINE HCL IN 0.9 % NACL 50 MG/5 ML SYRINGE ONE (15:23)
[2023-03-25] MEDS ORDERED: LACTATED RINGERS 1,000 ML IV ONE (15:53)
--- NOTE | 2023-03-25 16:05 | P.PCN ---
Date of Procedure: 03/25/23 Description of Procedure: Preoperative Diagnosis: Left lower lobe atelectasis Postoperative Diagnosis: Mucus plugg occupying the left mainstem bronchus and the left lower lobe bronchus Tracheobronchomalacia Because inflammatory changes level of the left upper lobe stump Narrowing of the left lower lobe bronchus Patent subsegments post removal of mucous plugs Procedure(s) Performed: Flexible bronchoscopy, removal of mucous plugs Anesthesia: MAC Surgeon: Michelle Lucia Estimated Blood Loss (ml): 0 Pathology: other Condition: stable Disposition: floor Operative Findings: This procedure was done in the endoscopy suite. A consent was obtained and a timeout was done. Following that, the patient was given anesthetic medication by anesthesia. After achieving adequate sedation, the flexible scope was introduced through the left nostril and was advanced into the upper airway. Examination of the posterior pharynx, larynx, epiglottis, vallecula and the cords were all within normal limits. Vocal cord function and mobility was within normal limits. A total of 2 mL of 1% lidocaine was applied to the vocal cord and following that the bronchoscope was advanced into the upper trachea. There was copious amount of mucous plugs overlying the trachea and those were suctioned out. More plugs were identified and the left mainstem bronchus and the left lower lobe bronchus. Therapeutic airway suctioning was done. I was able to visualize the entire trachea and there was evidence of tracheal bronchomalacia. The patient had therapeutic airway suctioning. Left mainstem bronchus patency was achieved. Following that, the stumps to the left upper lobe was seen and was friable. The stump itself looked inflamed yet intact. The bronchoscope was then removed to the left lower lobe and segmental washing of the posterior segment and anterior and lateral segment was done. I noticed that the left lower lobe bronchus orifice was quite narrowed and easily collapsible with exhalation maneuvers. I was able to do segmental washing of the various segments of the lower lobes and remove mucous plugging much as possible. At the completion of the procedure, the airway was free of any respiratory secretions. We'll continue the antibiotics for now. Awaiting final cultures from the earlier bronchial lavage. May add some steroids for its anti- inflammatory properties. We'll do a follow-up chest x-ray. We'll continue to follow.
[2023-03-25] MEDS: ACETAMINOPHEN TAB 325 MG TAB PO PRN (16:37)
[2023-03-25 17:10] LABS: Glucose,Whole Blood 198 mg/dL (70-110)
[2023-03-25] MEDS: INSULIN DETEMIR (LEVEMIR) 100 UNIT/ML SYR SQ SCH (17:20)
[2023-03-25 21:09] LABS: Glucose,Whole Blood 189 mg/dL (70-110)
[2023-03-26] MEDS: PIPERACILLIN-TAZOBACTAM 3.375 GM in SODIUM CHLORIDE 0.9% 100 ML IVPB SCH ×3 (01:09→17:48)
[2023-03-26] MEDS: HYDROcodone/APAP 5-325MG 1 EACH TAB PO PRN ×2 (01:10→21:21)
[2023-03-26 03:37] LABS: Glucose,Whole Blood 128 mg/dL (70-110)
[2023-03-26] MEDS: INSULIN ASPART (NovoLOG) 100 UNIT/ML VIAL SQ SCH ×8 (03:47→22:12)
[2023-03-26 06:32] LABS: Glucose,Whole Blood 229 mg/dL (70-110)
[2023-03-26] MEDS: INSULIN DETEMIR (LEVEMIR) 100 UNIT/ML SYR SQ SCH (07:02)
[2023-03-26] MEDS: PANTOPRAZOLE 40 MG TABLET PO SCH (07:02)
--- NOTE | 2023-03-26 08:22 | P.PN ---
Subjective Progress Note Date: 03/26/23 Principal diagnosis: Insulin dependent diabetes with poor glycemic control, hyperglycemia, hypomagnesemia, left upper lobe mass positive for well-differentiated adenocarcinoma. History of current tobacco dependence, COPD, daily EtOH use, hypertension, hyperlipidemia, stroke in 2016 with right-sided weakness, hepatitis B and C, bipolar depression, IV heroin use with last use August 2018 POD#11 Robotic assisted thoracoscopic left upper lobectomy with mediastinal lymph node dissection, fiberoptic bronchoscopy for evacuation of inspissated sputum Paroxysmal atrial fibrillation, known potential complication of lung surgery Hypotension although MAP stable, not requiring pressors, resolved Left lower lobe atelectasis, mucus plug occupying the left mainstem bronchus and the left lower lobe bronchus, tracheobronchomalacia Flexible bronchoscopy, bronchial lavage of the left lower lobe completed 03/19/[address] Reynolds, and 03/23/23 and 03/25/[address] Lucia The patient was seen and examined this morning sitting up in a recliner in no acute distress. States she is feeling much better and wants to go home. Discussed with patient is not safe to be discharged yet as we are still working on improving her lung function. Patient adamantly states she is leaving today, even if it's AGAINST MEDICAL ADVICE. She was counseled regarding the risks of leaving AMA, still insists on leaving. Discussed with Dr. June and Dr. Lucia, who both feel she needs to be on antibiotics. Discussed with nursing that she needs a home oxygen evaluation as she is still on 2 L nasal cannula. Informed patient she will need to wait until we determine if she needs oxygen and can set up follow-up appointments. She does seem at least agreeable to this. Sent message to primary. Objective - Vital Signs Vital signs: Vital Signs Temp 98.2 F 03/25/23 03:17 Pulse 55 L 03/26/23 04:00 Resp 20 03/26/23 04:00 BP 133/67 03/26/23 04:00 Pulse Ox 99 03/26/23 04:00 FiO2 40 03/23/23 21:31 Intake & Output 03/25/23 03/26/23 03/26/23 18:59 06:59 18:59 Intake Total 200 Output Total 300 450 Balance -100 -450 Weight 87.6 kg Intake: IV 200 Output: Urine 300 450 Other: Voiding Method Toilet Toilet # Voids 1 2 ABP, PAP, CO, CI - Last Documented Arterial Blood Pressure 99/38 - Exam CONSTITUTIONAL: Appears comfortable, cooperative, no acute distress RESPIRATORY: Lungs sounds diminished on the left. Respirations even, nonlabored. Currently on 2 LPM NC with oxygen saturation 99%. Able to achieve 1000 mL on incentive spirometry. Strong cough. CARDIOVASCULAR: S1, S2 present. Regular rate and rhythm, sinus rhythm on telemetry. Palpable peripheral pulses bilaterally. No edema present. No calf pain or tenderness noted GASTROINTESTINAL: Abdomen soft, nontender, nondistended. Active bowel sounds present 4 quadrants. Tolerating diet. Positive bowel movement 03/24 INTEGUMENTARY: Skin is warm and dry. Thoracic incisions well approximated NEUROLOGIC: Cranial nerves II through XII intact MUSKULOSKELETAL: Able to move all extremities, strength equal bilaterally PSYCHIATRIC: Alert and oriented to person place and time, flat affect - Allied health notes Allied health notes reviewed: nursing - Labs CBC & Chem 7: 03/25/23 06:25 03/25/23 06:25 Labs: Abnormal Lab Results - Last 24 Hours (Table) 03/25/23 03/25/23 03/25/23 Range/Units 06:25 11:18 17:08 POC Glucose (mg/dL) 136 H 198 H (70-110) mg/dL Procalcitonin 0.18 H (0.02-0.09) ng/mL 03/25/23 03/26/23 03/26/23 Range/Units 21:08 03:25 06:30 POC Glucose (mg/dL) 189 H 128 H 229 H (70-110) mg/dL Procalcitonin (0.02-0.09) ng/mL Microbiology - Last 24 Hours (Table) 03/23/23 11:00 Gram Stain - Preliminary Bronchoalviolar Lavage - Left - Imaging and Cardiology Chest x-ray: image reviewed Assessment and Plan Assessment: Insulin dependent diabetes with poor glycemic control, hyperglycemia, A1c 9.8% Hypomagnesemia Left upper lobe mass positive for well-differentiated adenocarcinoma, status post left upper lobectomy Current tobacco dependence Moderate COPD, preoperative FEV1 54% of predicted, DLCO 36% of predicted Current daily EtOH use Hypertension Hyperlipidemia Stroke in 2016 with right-sided weakness Hepatitis B and C Bipolar depression History of IV heroin use with last use August 2018 Paroxysmal atrial fibrillation, currently sinus rhythm Left lung collapse, left lung opacification, status post bronchoscopy performed by Dr. Reynolds 03/19/23 Left lower lobe atelectasis, mucus plug occupying the left mainstem bronchus and the left lower lobe bronchus, tracheobronchomalacia, status post flexible bronchoscopy, bronchial lavage of the left lower lobe by Dr. Lucia 03/23/23 and again 03/25/2023 Plan: Continue amiodarone, beta ana maría for A. fib per cardiology recommendation. No anticoagulation due to recent surgery, repeated bronchoscopies Continue to improve blood glucose control, insulin adjustments made by primary service, continue to up titrate insulin Increase activity, ambulate as tolerated. Patient should be out of bed for all meals, she should be out of bed the majority of the day and use the bed for sleeping at nighttime only Wean oxygen as tolerated. Encourage incentive spirometry 10x every hour while awake. Bronchodilators per pulmonology Monitor for alcohol withdrawal, unlikely now the patient has been in the hospital for 14 [address] Nicotine patch in place Smoking cessation counseling and education reinforced Continue Tylenol for pain control Patient insisted on leaving AGAINST MEDICAL ADVICE, discussed with surgeon, solar consultant, primary Will make a follow-up appointments, needs antibiotics at discharge, preferably Levaquin per Dr. Lucia
[2023-03-26 08:38] LABS: HCT 34.1 % (34.0-46.0); HGB 11.2 gm/dL (11.4-16.0); Hypochromasia Slight; MCH 32.1 pg (25.0-35.0); MCHC 32.8 g/dL (31.0-37.0); MCV 98.1 fL (80.0-100.0); Mean Platelet Volume 7.9; Platelet Count 246 k/uL (150-450); Poikilocytosis Slight; RBC 3.48 m/uL (3.80-5.40); RDW 13.5 % (11.5-15.5); WBC 8.1 k/uL (3.8-10.6)
--- NOTE | 2023-03-26 08:41 | XR ---
EXAMINATION TYPE: XR chest 2V DATE OF EXAM: 03/26/2023 6:28 AM CLINICAL INDICATION:Female, 57 years old with history of post lobectomy; COMPARISON: Chest radiograph from one day prior. TECHNIQUE: XR chest 2V Frontal and lateral views of the chest. FINDINGS: Lungs/Pleura: Complete opacification of the left lung. There is no evidence for focal consolidation o r pneumothorax. Similar small right pleural effusion. Pulmonary vascularity: Unremarkable. Heart/mediastinum: Cardiomediastinal silhouette is partially obscured due to overlying and adjacent o pacities. Musculoskeletal: No acute osseous pathology. IMPRESSION: 1. Complete opacification of the left lung likely secondary to atelectasis and large pleural effusio n. No pneumothorax visualized. 2. Small right effusion
[2023-03-26 09:00] LABS: African American GFR (CKD) >90 (>60 ml/min/1.73 sqM); Anion Gap 11 mmol/L; Blood Urea Nitrogen 16 mg/dL (7-17); Calcium 8.1 mg/dL (8.4-10.2); Carbon Dioxide 28 mmol/L (22-30); Chloride 99 mmol/L (98-107); Glucose 184 mg/dL (74-99); Non-African American GFR(CKD) 87 (>60 ml/min/1.73 sqM); Potassium 5.6 mmol/L (3.5-5.1); Sodium 138 mmol/L (137-145)
[2023-03-26] MEDS: GABAPENTIN 400 MG CAP PO SCH ×3 (09:24→22:11)
[2023-03-26] MEDS: FOLIC ACID 1 MG TAB PO SCH (09:24)
[2023-03-26] MEDS: METOPROLOL TARTRATE 12.5 MG TAB PO SCH ×2 (09:24→22:11)
[2023-03-26] MEDS: AMIODARONE 200 MG TAB PO SCH ×2 (09:24→22:12)
[2023-03-26] MEDS: ATORVASTATIN 10 MG TAB PO SCH (09:24)
[2023-03-26] MEDS: MAGNESIUM OXIDE 400 MG TAB PO SCH ×2 (09:24→22:11)
[2023-03-26] MEDS: THIAMINE 100 MG TAB PO SCH (09:24)
[2023-03-26] MEDS: NICOTINE 7MG/24HR PATCH TRANSDERM SCH (09:25)
[2023-03-26] MEDS: SODIUM CHLORIDE TAB 1 GM TAB PO SCH (09:25)
[2023-03-26] MEDS: ENOXAPARIN 40 MG/0.4 ML SYRINGE SQ SCH (09:30)
[2023-03-26] MEDS: IPRATROPIUM-ALBUTEROL 3 ML NEB IH SCH ×4 (09:47→21:15)
[2023-03-26] MEDS: ACETYLCYSTEINE 800 MG/4 ML VIAL INHALATION SCH ×4 (09:47→21:15)
[2023-03-26] MEDS: SYMBICORT 80-4.5 MCG INHALER INHALATION SCH ×2 (09:47→21:15)
[2023-03-26 11:25] LABS: Glucose,Whole Blood 89 mg/dL (70-110)
--- NOTE | 2023-03-26 12:55 | P.PN ---
Subjective HISTORY OF PRESENT ILLNESS: 03/23/23 This is a pleasant 57-year-old female who underwent left upper lobe lobectomy on 1217 for non-small cell lung cancer. She has a history of nicotine dependence, hypertension and diabetes as well as hyperlipidemia. We were consulted postoperatively for atrial fibrillation. She was initiated on IV amiodarone with a bolus and drip. She remains on amiodarone drip was in sinus mechanism until this morning and went into atrial fibrillation with RVR. She has not been anticoagulated due to bronchoscopy scheduled for this morning. Remains in atrial fibrillation. At the time of my examination she is resting comfortably in a recliner at the bedside. Complains of her chest feeling sore. She does have some very mild shortness of breath. She is on 2 L nasal cannula. Denies any orthopnea or PND. 03/24/2023 Patient examined this morning at the bedside. Patient denies chest pain or pressure. She currently denies shortness of breath. Patient was in sinus mechanism this morning with a heart rate in the 50s to 60s. However upon examination she has been back into A. fib with RVR with heart rate of 130. She denies any palpitations. 03/25/2023 Patient examined this morning. Patient is sitting up in the chair. She denies chest pain or pressure. She reports shortness of breath today and states she is having pain around her ribs secondary to excessive coughing. At the time of examination the patient was in sinus mechanism with heart rate in the 50s. However she has went back into atrial fibrillation with heart rate between [id number]. 03/26/2023 Patient examined this morning. She is sitting up in the chair. Patient is upset this morning and is wanting to leave the hospital. She is contemplating leaving AMA. She underwent repeat bronchoscopy yesterday. She is maintaining sinus mechanism this morning. PHYSICAL EXAM: VITAL SIGNS: Reviewed. GENERAL: Well-developed in no acute distress. NECK: Supple. No JVD or thyromegaly LUNGS: Respirations even and unlabored. Lungs diminished to auscultation bilaterally. HEART: Regular rate and rhythm. S1 and S2 heard. EXTREMITIES: Normal range of motion. No clubbing or cyanosis. Peripheral pulses intact. No lower extremity edema ASSESSMENT: Paroxysmal atrial fibrillation with RVR Sinus bradycardia Left upper lobe mass, positive for well-differentiated adenocarcinoma, status post left upper lobectomy Left lung collapse, left lung opacification, status post bronchoscopy 03/19/2023 Left lower lobe atelectasis with mucous plugging, status post bronchoscopy, 03/23/2023 Hypertension Hyperlipidemia Diabetes PLAN: Continue oral amiodarone We will continue with current dose of metoprolol at this time as patient has been going in and out of atrial fibrillation and is bradycardic with a heart rate in the 40s50s when she is in sinus mechanism. Continue telemetry monitoring Recommend anticoagulation when/if okay with cardiothoracic surgery Currently stable from a cardiac perspective We will sign off. Please reconsult if needed. Nurse practitioner note has been reviewed by physician. Signing provider agrees with the documented findings, assessment, and plan of care. Objective - Vital Signs Vital signs: Vital Signs Temp 98.2 F 03/25/23 03:17 Pulse 58 L 03/26/23 08:00 Resp 20 03/26/23 08:00 BP 117/68 03/26/23 08:00 Pulse Ox 100 03/26/23 08:00 FiO2 40 03/23/23 21:31 Intake & Output 03/25/23 03/26/23 03/26/23 18:59 06:59 18:59 Intake Total 200 120 Output Total 300 450 Balance -100 -450 120 Weight 87.6 kg Intake: IV 200 Oral 120 Output: Urine 300 450 Other: Voiding Method Toilet Toilet Toilet # Voids 1 2 ABP, PAP, CO, CI - Last Documented Arterial Blood Pressure 99/38 - Labs CBC & Chem 7: 03/26/23 08:14 03/26/23 08:14 Labs: Abnormal Lab Results - Last 24 Hours (Table) 03/25/23 03/25/23 03/25/23 Range/Units 06:25 17:08 21:08 RBC (3.80-5.40) m/uL Hgb (11.4-16.0) gm/dL Potassium (3.5-5.1) mmol/L Glucose (74-99) mg/dL POC Glucose (mg/dL) 198 H 189 H (70-110) mg/dL Calcium (8.4-10.2) mg/dL Procalcitonin 0.18 H (0.02-0.09) ng/mL 12/03/26/23 03/26/23 Range/Units 03:25 06:30 08:14 RBC 3.48 L (3.80-5.40) m/uL Hgb 11.2 L (11.4-16.0) gm/dL Potassium (3.5-5.1) mmol/L Glucose (74-99) mg/dL POC Glucose (mg/dL) 128 H 229 H (70-110) mg/dL Calcium (8.4-10.2) mg/dL Procalcitonin (0.02-0.09) ng/mL 03/26/23 Range/Units 08:14 RBC (3.80-5.40) m/uL Hgb (11.4-16.0) gm/dL Potassium 5.6 H (3.5-5.1) mmol/L Glucose 184 H (74-99) mg/dL POC Glucose (mg/dL) (70-110) mg/dL Calcium 8.1 L (8.4-10.2) mg/dL Procalcitonin (0.02-0.09) ng/mL Microbiology - Last 24 Hours (Table) 03/23/23 11:00 Gram Stain - Final Bronchoalviolar Lavage - Left Bronchial Washings Culture - Final Haemophilus influenzae
--- NOTE | 2023-03-26 13:08 | P.PN ---
Subjective Patient is a 57-year-old female came in for elective pulmonary lobectomy for lung cancer found to have highly elevated blood sugars of 500 because of which patient was admitted patient last hemoglobin A1c was more than a year ago at that time it was 7.5 it appears patient may be noncompliant. Patient admits to drinking vodka with watermelon juice last night. Patient does have history of COPD continues to smoke 5 cigarettes per day is bit hypoxic. Chest x-ray showed some interstitial prominence although clinically patient doesn't appear to be in CHF patient does take 20 mg of Lasix at home patient has chronic venous stasis dermatosis of both legs and will be dermatitis. Patient is on Trulicity, 20 units of long-acting insulin along with metformin at home for diabetes with us. Patient blood sugars is presently about 300. Patient had a chest xray showing 1.2 cm let upper lobe pulmonary mass. She will be going for lung resection on . 03/12/2023 Patient sitting up in bed today. Needs to be up in the chair for the day. Patien t verbalized understanding. Blood glucose remains elevated. Levemir will be increased and scheduled insulin added. 03/13/2023 Patient evaluated [facility]. She is sitting up in the chair no acute complaints overnight. She is scheduled to undergo elective lobe resection on Wednesday. Blood glucose remains elevated at this time it has come down into the 190s however back up to 365. She is on a combination of sliding scale insulin as well as 3 units of scheduled and 25 units daily Levemir. These have been increased today. 03/14/2023 Patient is evaluated today, sitting up in chair. Patient to undergo elective lobe resection on wednesday with CT surgery. No acute complaints. Blood glucose remains elevated but overall improved, fluctuating between 188-312 this afternoon. 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 She will be monitored postoperatively in the ICU. Blood glucose this AM down to 150 and 176. Still fluctuating in to the high 200s. Will continue with current regimen as patient will be NPO for surgery to avoid hypoglycemia. If she remains elevated insulin will be further increased. 03/16/2023 Patient is evaluated today in the ICU postoperative day #1 left upper lobectomy. Patient has left CT in place with chest xray today showing left-sided consolidation and small effusion with no sizable pneumothorax. Labs showing white count of 11.2, sodium level of 35. BUN 14, creatinine 0.49. Magnesium 1.4. Glucose has been slowly improving. Patient has been afebrile, heart rate 80s, blood pressure on the lower side 95/38. On 2L of oxygen. 03/17/2023 Patient presents with non-small lung cancer of the left upper lobe status post robotic assisted thoracoscopic left upper lobectomy on 03/15. Today postop day #2. Patient was transferred out of the ICU to the select unit today morning. Patient was lying in bed looks tired. Left chest tube in place but later on her chest tube was removed. Chest x-ray showing no sizable pneumothorax but persistent postop changes with a stable left lower lobe consolidation. Patient blood pressure on the low normal side about 88/51, no dizziness. Currently she is on 2 L oxygen via nasal cannula. She had a fever on 03/14 but no more fevers since then. She has mild leukocytosis coming down to 11.2 down to 10.7. Liver enzymes mildly elevated. Sodium 127 Glucose more than 200, she is on Lantus 15 units at home and she was taken here as of yesterday Levemir 25 units daily and 8 units at bedtime, we change and fat to Levemir 30 units daily starting tomorrow. Also she is on insulin sliding scale. We going to increase her NovoLog 5 units with meals up to 9 units and change her Levemir to 30 units daily with close monitoring of her glucose. Her amiodarone drip was stopped and switched to oral amiodarone. 03/18/2023 Patient become hypotensive overnight, her night, but time murmurs held her beta ana maría and amiodarone, she developed tachycardia with heart rate was 120-1:30, she was also hypotensive blood pressure 83/73 therefore patient was transferred back to the intensive care unit. This morning she is awake and alert, in mild distress due to severe weakness. She denies chest pain or dyspnea this morning. She was started back on amiodarone drip by [employer] network analyst and blood pressure improved 113/61. Heart rate is also improved but EKG today showed sinus rhythm at 72 with occasional PVCs She received 1 L of normal saline Chest x-ray showing slightly worse consolidation especially on the left side probably due to fluid accumulation. Patient does not have a fever, she has mild leukocytosis which is a stable. No strong evidence of infection patient currently off antibiotic. Sodium 127 most likely hypovolemic hyponatremia. She remains on amiodarone drip, Lovenox for DVT prophylaxis After sugars still more than 200, we will continue with Levemir 30 units and increase NovoLog 9 up to 12 units with meals Chest the tube already removed yesterday from the left side. Review of systems CONSTITUTIONAL: No fever, no malaise, no fatigue. HEENT: No recent visual problems or hearing problems. Denied any sore throat. CARDIOVASCULAR: No orthopnea, PND, no palpitations, no syncope. PULMONARY: No chest wall tenderness GastrointestiL: No diarrhea, no nausea, no vomiting, no abdominal pain. Normoact yadira bowel sounds. NEUROLOGICAL: No headaches, no weakness, no numbness. 03/23/2023 Patient transferred from the ICU yesterday. She isn't select unit complaining of from mild tachypnea. Chest decreased breath sounds on the left side Chest x-ray showing near complete opacification of the left lung. Plan for repeat bronchoscopy of the left side with incentive spirometry encouraged. May resume anticoagulation was cleared by cardiothoracic surgery after the scope. She is currently on 3 L oxygen via nasal cannula, she is not on oxygen at home. Amiodarone is admitted today by cardiology team as well and continue metoprolol 12.5 mg 03/24/2023 pt is s/p bronchoscopy yesterday for near complete opcification of the left lung thought secondary to mucous plug, today she has the same problem yesterday with near complete opacification of the left flank with exertional dyspnea although she saturating 96% while at rest No chest pain no significant coughing, does not look in respiratory distress. She was started on Zosyn for possible pneumonia competent. Procal. was elevated 0.56 and 03/21. No signs of alcohol withdrawal Currently on amiodarone 400 mg Cardiology following for A. fib, currently and the cartilage remaining on hold Patient agreement to [facility] and continue treatment for an 03/25/2023 Patient still complaining of from dyspnea, chest x-ray shows some persistent complete opacification of the left lung with collapse. Plan for bronchoscopy today. Eliquis remains on hold. Continue with amiodarone and metoprolol for control of A. fib rate 03/26/2023 Patient is still complaining of from mild tachypnea, mainly at rest. She is on 23 L oxygen via nasal cannula. She denies chest pain or any other symptoms. Patient looks tired and mildly lethargic but she is fully awake oriented to time place and person and she has insight into her illness. Hemodynamically she is a stable Labs are stable, hemoglobin 11.2, potassium slightly elevated at 5.6. Chest x-ray showed left lung complete opacification Patient is status post second bronchoscopy yesterday showing tracheomalacia and mucus plugging of the left lung which was removed and released. she remains on Zosyn. Cardiology team recommended to continue with the same medication and to resume blood thinner when appropriate per cardiothoracic surgery team This this morning patient wanted to leave AGAINST MEDICAL ADVICE, this is the second episode when she wanted to leave AMA about 2-3 days ago but then she change her mind and decided to stay. When as the patient was she was evaluated she asked that because she got tired of saline in the hospital to lung. She didn't give any other reason. Risks of deep and antibiotics. For the patient extensively more than once including but not limited to the risk of worsening infection, renal infection, renal failure, respiratory failure , permanent organ damage and/or and she verbalized understanding and she stayed back to me the risk factors. However she still wanted to leave. However patient will require oxygen upon discharge and she was made aware about this issue examination will be without oxygen. I told the patient if there is anything i can do to prevent her from leaving AMA and she said "no" Based upon my evaluation patient has capacity to make medical decision. Active Medications Generic Name Dose Route Start Last Admin Trade Name Freq PRN Reason Stop Dose Admin Acetaminophen 650 mg 03/15/23 13:06 03/25/23 16:37 Acetaminophen Tab 325 Mg Tab PO 650 mg Q4HR PRN Administration Mild to Moderate Pain (1 - 6) Hydrocodone Bitart/Acetaminophen 1 each 03/23/23 05:14 03/26/23 01:10 Hydrocodone/Apap 5-325mg 1 Each Tab PO 1 each Q6HR PRN Administration Pain Acetylcysteine 200 mg 03/18/23 16:00 03/26/23 13:04 Acetylcysteine 800 Mg/4 Ml Vial INHALATION 200 mg RT-QID BLAIRE Administration Albuterol/Ipratropium 3 ml 03/15/23 13:06 Ipratropium-Albuterol 3 Ml Neb IH RT-Q1H PRN Shortness Of Breath Or Wheezing Albuterol/Ipratropium 3 ml 03/15/23 13:06 03/26/23 13:05 Ipratropium-Albuterol 3 Ml Neb IH 3 ml RT-QID BLAIRE Administration Amiodarone HCl 400 mg 03/23/23 21:00 03/26/23 09:24 Amiodarone 200 Mg Tab PO 400 mg BID BLAIRE Administration Atorvastatin Calcium 10 mg 03/12/23 09:00 03/26/23 09:24 Atorvastatin 10 Mg Tab PO 10 mg DAILY BLAIRE Administration Bisacodyl 10 mg 03/15/23 13:06 03/18/23 08:46 Bisacodyl 10 Mg Supp RECTAL 10 mg DAILY PRN Administration Constipation Budesonide/Formoterol Fumarate 2 puff 03/12/23 08:00 03/26/23 09:47 Symbicort 80-4.5 Mcg Inhaler INHALATION Not Given RT-BID BLAIRE Dextrose/Water 25 ml 03/11/23 10:55 Dextrose 50% Syringe 50 Ml IVP PER PROTOCOL PRN Hypoglycemia Protocol Dextrose/Water 50 ml 03/11/23 10:55 Dextrose 50% Syringe 50 Ml IVP PER PROTOCOL PRN Hypoglycemia Protocol Docusate Sodium 100 mg 03/19/23 17:06 03/19/23 18:18 Docusate 100 Mg Cap PO 100 mg DAILY PRN Administration Constipation Enoxaparin Sodium 40 mg 03/12/23 09:00 03/26/23 09:30 Enoxaparin 40 Mg/0.4 Ml Syringe SQ Not Given DAILY BLAIRE Folic Acid 1 mg 03/11/23 15:30 03/26/23 09:24 Folic Acid 1 Mg Tab PO 1 mg DAILY BLAIRE Administration Gabapentin 800 mg 03/11/23 16:00 03/26/23 09:24 Gabapentin 400 Mg Cap PO 800 mg TID BLAIRE Administration Piperacillin Sod/Tazobactam 100 mls @ 25 mls/hr 03/23/23 16:00 03/26/23 09:31 Sod 3.375 gm/ Sodium Chloride IVPB 25 mls/hr Q8HR BLAIRE Administration Protocol Insulin Aspart 0 unit 03/13/23 13:00 03/26/23 11:49 Insulin Aspart (Novolog) 100 Unit/Ml Vial SQ Not Given [id number] [facility] Protocol Insulin Aspart 12 unit 03/18/23 12:30 03/26/23 07:02 Insulin Aspart (Novolog) 100 Unit/Ml Vial SQ 12 unit AC-TID BLAIRE Administration Insulin Detemir 30 unit 03/18/23 07:00 03/26/23 07:02 Insulin Detemir (Levemir) 100 Unit/Ml Syr SQ 30 unit DAILY@0700 BLAIRE Administration Lorazepam 0.5 mg 03/13/23 13:38 03/22/23 04:32 Lorazepam 0.5 Mg Tab PO 0.5 mg Q4HR PRN Administration Ciwa 4 To 5 Lorazepam 1 mg 03/13/23 13:38 03/23/23 16:26 Lorazepam 1 Mg Tab PO 1 mg Q4HR PRN Administration Ciwa 6 To 7 Lorazepam 2 mg 03/13/23 13:38 03/26/23 09:25 Lorazepam 1 Mg Tab PO 2 mg Q2HR PRN Administration Ciwa 10 or greater Lorazepam 2 mg 03/13/23 13:38 Lorazepam 1 Mg Tab PO Q3HR PRN Ciwa 8 To 9 Lorazepam 1 mg 03/13/23 13:38 Lorazepam 1 Mg Tab PO Q1HR PRN Alcohol Withdrawal Magnesium Oxide 400 mg 03/16/23 09:00 03/26/23 09:24 Magnesium Oxide 400 Mg Tab PO 400 mg BID [facility] Administration Metoprolol Tartrate 12.5 mg 03/20/23 21:00 03/26/23 09:24 Metoprolol Tartrate 12.5 Mg Tab PO 12.5 mg BID [facility] Administration Naloxone HCl 0.2 mg 03/11/23 10:55 Naloxone 0.4 Mg/Ml 1 Ml Vial IV Q2M PRN Opioid Reversal Nicotine 1 patch 03/12/23 09:00 03/26/23 09:25 Nicotine 7mg/24hr Patch TRANSDERM 1 patch DAILY [facility] Administration Non-Formulary Medication 1.5 mg 03/16/23 09:00 03/23/23 08:09 Dulaglutide [Trulicity] SQ Not Given TU [facility] Ondansetron HCl 4 mg 03/15/23 13:06 Ondansetron 4 Mg/2 Ml Vial IVP Q8HR PRN Nausea And Vomiting Pantoprazole Sodium 40 mg 03/16/23 07:30 03/26/23 07:02 Pantoprazole 40 Mg Tablet PO 40 mg [id number]-[id number] BLAIRE Administration Sodium Chloride 10 ml 03/16/23 09:00 03/26/23 09:25 Sodium Chloride 0.9% Flush 10 Ml Syringe IV 10 ml BID BLAIRE Administration Sodium Chloride 1 gm 03/17/23 09:00 03/26/23 09:25 Sodium Chloride Tab 1 Gm Tab PO 1 gm BID BLAIRE Administration Thiamine HCl 100 mg 03/11/23 15:30 03/26/23 09:24 Thiamine 100 Mg Tab PO 100 mg DAILY BLAIRE Administration Objective - Vital Signs Vital signs: Vital Signs Temp 98.2 F 03/25/23 03:17 Pulse 58 L 03/26/23 08:00 Resp 20 03/26/23 08:00 BP 117/68 03/26/23 08:00 Pulse Ox 100 03/26/23 08:00 FiO2 40 03/23/23 21:31 Intake & Output 03/25/23 03/26/23 03/26/23 18:59 06:59 18:59 Intake Total 200 120 Output Total 300 450 Balance -100 -450 120 Weight 87.6 kg Intake: IV 200 Oral 120 Output: Urine 300 450 Other: Voiding Method Toilet Toilet Toilet # Voids 1 2 ABP, PAP, CO, CI - Last Documented Arterial Blood Pressure 99/38 - Exam GENERAL: The patient is alert and oriented x3, not in any acute distress. Well developed, well nourished. HEENT: Pupils are round and equally reacting to light. EOMI. No scleral icterus. No conjunctival pallor. Normocephalic, atraumatic. No pharyngeal erythema. No thyromegaly. CARDIOVASCULAR: S1 and S2 present. No murmurs, rubs, or gallops. -PULMONARY: Chest is clear to auscultation, no wheezing , no crackles. chest tube in place ABDOMEN: Soft, nontender, nondistended, normoactive bowel sounds. No palpable organomegaly. MUSCULOSKELETAL: No joint swelling or deformity. EXTREMITIES: No cyanosis, clubbing, or pedal edema. NEUROLOGICAL: Gross neurological examination did not reveal any focal deficits. SKIN: No rashes. no petechiae. - Labs CBC & Chem 7: 03/26/23 08:14 03/26/23 08:14 Labs: Abnormal Lab Results - Last 24 Hours (Table) 03/25/23 03/25/23 03/25/23 Range/Units 06:25 17:08 21:08 RBC (3.80-5.40) m/uL Hgb (11.4-16.0) gm/dL Potassium (3.5-5.1) mmol/L Glucose (74-99) mg/dL POC Glucose (mg/dL) 198 H 189 H (70-110) mg/dL Calcium (8.4-10.2) mg/dL Procalcitonin 0.18 H (0.02-0.09) ng/mL 03/26/23 03/26/23 03/26/23 Range/Units 03:25 06:30 08:14 RBC 3.48 L (3.80-5.40) m/uL Hgb 11.2 L (11.4-16.0) gm/dL Potassium (3.5-5.1) mmol/L Glucose (74-99) mg/dL POC Glucose (mg/dL) 128 H 229 H (70-110) mg/dL Calcium (8.4-10.2) mg/dL Procalcitonin (0.02-0.09) ng/mL 03/26/23 Range/Units 08:14 RBC (3.80-5.40) m/uL Hgb (11.4-16.0) gm/dL Potassium 5.6 H (3.5-5.1) mmol/L Glucose 184 H (74-99) mg/dL POC Glucose (mg/dL) (70-110) mg/dL Calcium 8.1 L (8.4-10.2) mg/dL Procalcitonin (0.02-0.09) ng/mL Microbiology - Last 24 Hours (Table) 03/23/23 11:00 Gram Stain - Final Bronchoalviolar Lavage - Left Bronchial Washings Culture - Final Haemophilus influenzae Assessment and Plan Assessment: -Lung cancer was recently diagnosed with non small cell and is now status post upper lobectomy with cardiothoracic surgery following closely.. Patient monitored in the ICU postoperatively and transferred to the general medical floor at the [facility] -Near-complete opacification of the left lung, recurrent -Acute hypoxic respiratory failure -Diabetes mellitus with hyperglycemia -Hypotension, improved -Nonadherent, patient was living -Hypovolemic hypernatremia -COPD without any acute exacerbation -hyperlipidemia -Hypertension -hypervascular disease -continued nicotine use: Counseling was provided Plan: Patient will require bronchoscopy Continue with amiodarone for cardiothoracic surgery team Change insulin to Levemir 30 units daily and NovoLog 12 units with meals with insulin sliding scale and close monitoring of sugar. Chest tube was removed by cardiothoracic surgery team continue Zosyn Pulmonary consult on the case Patient started on sodium tablets We recommend fluid restriction, currently 1500 per day Labs and medication were reviewed.. Continue same treatment. Continue with symptomatic treatment. Resume home medication. Monitor labs and vitals. DVT and GI prophylaxis. Further recommendations as per clinical course of the patient DVT prophylaxis: Subcutaneous Lovenox GI Prophylaxis: Pepcid PT/OT: Home health care Prognosis is guarded
--- NOTE | 2023-03-26 16:35 | P.PN ---
Subjective Progress Note Date: 03/26/23 This is a 57-year-old female who was admitted for possible left upper lobectomy, by Dr. June. Initially, the patient had a significant elevation in her blood, and the surgery was delayed. It was finally done today. He did call me after the procedure. In December of this year, my partner, did a flexible bronchoscopy, robotically-assisted bronchoscopy, and biopsies, the lesion, and the left upper lobe. The biopsies were positive for well-differentiated pulmonary adenocarcinoma. Currently, the patient's resting comfortably in the intensive care unit. The patient's on 4 L of oxygen, and getting saline at 50 mL an hour. Again as I mentioned above, I did speak to the surgeon about this patient. He was concerned that she may need bronchoscopy over the next few days, for left lung collapse. Apparently her airways were full of mucus. Currently labs data only includes a glucose of 260. Chest x-ray shows a left- sided consolidation and a small effusion, with no sizable pneumothorax. Chest tube is noted. Labs from yesterday include a white count of 5.9, hemoglobin 13.4, hematocrit 39.7, and a platelet count of 96,000. Sodium 137, potassium 4.3, chlorides 102, CO2 27, UN 15, and creatinine 0.7. N-terminal proBNP was 166. Progress note dated 03/16/2023. 57-year-old female postop day #1, status post robotically assisted thoracoscopic left upper lobectomy for lung cancer. The patient is seen today in room 257. She is on 2 L of oxygen. She's getting saline at 50 mL an hour. According to the nurses, the patient had an uneventful night. The patient's resting comfortably in bed. Again, she is on 2 L, by nasal cannula. White count 11.2, hemoglobin 13.4, and platelet count 105,000. Sodium 135, potassium 3.9, chlorides 99, CO2 28, BUN 14, creatinine 0.49. Magnesium 1.4. Chest x-rays shows some volume loss in the left lung, with some left-sided consolidation, and a small effusion. Progress note dated 03/17/2023. 57-year-old female, postop day #2, status post robotically assisted thoracoscopic left upper lobectomy for lung cancer. The patient is seen today in room 362. She's currently on room air, but saturations are only 87%. I asked respiratory therapy to place her on oxygen at 2 L. The left-sided chest tube had been removed. She's getting saline at 10 mL an hour. White count is 10.7, hemoglobin 13.1, hematocrit 40, and platelet count 108,000. Sodium 127, potassium 4.2, chlorides 94, CO2 25, BUN 31, and creatinine 0.71. Calcium is 8.2. Magnesium is 2.2. Chest x-ray from today shows postoperative changes, with stable left-sided consolidation and small pleural effusion. No pneumothorax is seen. Progress note dated 03/18/2023. 57-year-old female, postoperative day #3, status post robotically assisted thoracoscopic left upper lobectomy for early stage lung cancer. The patient was outside on the general floor, but came back into the intensive care unit, room 251, because of atrial fibrillation with rapid ventricular response. Currently, she is seen in the ICU, and is currently on 7 L high flow oxygen, and amiodarone at 1 mg/m. We did make her nothing by mouth after midnight, for possible bronchoscopy tomorrow. Her chest x-ray shows partial collapse of the left lung. White count is 10.7, hemoglobin 0.9, hematocrit 38.6, with a platelet count of 141,000. Sodium 127, potassium 4.2, chlorides 94, CO2 22, BUN 50, and creatinine 0.85. Glucose 223. Albumin is 2.9. Chest x-ray shows increasing left-sided consolidation and pleural effusion, with volume loss. There may be a tiny left apical pneumothorax. Progress note dated 03/19/2023. 57-year-old female postop day #4, status post robotically assisted thoracoscopic left upper lobectomy for early stage lung cancer. The patient was out on the general medical floor, but came back to the intensive care unit, because of atrial fibrillation/RVR. The patient's most recent chest x-ray shows near complete collapse of the left lung, so, the patient will undergo bronchoscopy sometime today. She's currently seen in the intensive care unit, room 251. The patient is on 4 L of oxygen. She's currently on amiodarone at 0.5 mg/m. The bronchoscopy was done at the bedside, with the aid of anesthesia. White count is 8.4, hemoglobin 12.9, hematocrit 36.6, and lately count 95,000. Sodium 127, potassium 5, chlorides 97, CO2 20, BUN 53, creatinine 0.81. Calcium is 8.2. Ch est x-ray shows near complete opacification of the left lung. Progress note dated 03/20/2023. 57-year-old female, postop day #5, status post robotically assisted thoracoscopic left upper lobectomy for early stage lung cancer. The patient is seen today in room 251. Yesterday, because of left lung collapse, she underwent bronchoscopy. It was done at the bedside, with the help of anesthesia. Ca rdiothoracic surgery setting her for a CAT scan without contrast today. She is a 3 S. overflow patient. He is on 2 L. She's not receiving any IV fluids. White count 10.5, hemoglobin 13.2, hematocrit 39.8, and platelet count is normal. Sodium 127, potassium 5.3, chlorides 98, CO2 18, BUN 54, creatinine 0.84. Calcium is 8.4. Chest x-ray shows improved aeration, left upper lobe. Progress note dated 03/21/2023. 57-year-old female, postop day #6, status post robotically assisted thoracoscopi c left upper lobectomy for early stage lung cancer. The patient's chest x-ray today shows a developing infiltrate in the right lung, also seen on computed tomography scan, and nearly complete left lung collapse. The patient has had previous bronchoscopy, and will have another one today. He's currently on 2 L. No IV fluids. We did send in a pro-calcitonin level. She is currently not on any antibiotics. No new labs today. Progress note dated 03/22/2023. 57-year-old female, postoperative day #7, status post robotically assisted thoracoscopic left upper lobectomy, for stage I lung cancer. The patient's chest x-ray, is showing a abnormality, in the left lung, consistent with collapse, as well, as an infiltrate, and the right lung, potentially consistent with pneumonia. This is best seen on the most recent computed tomography scan. The patient was to have bronchoscopy yesterday, but it was canceled by anesthesia because of a potassium of 5.5. This morning, her potassium was 5.3, repeat after dextrose and insulin was 5. Unfortunately, the patient has also developed atrial fibrillation with a rapid ventricular response. Anesthesia will decide whether or not move forward with a bronchoscopy. Currently labs include a white count 7.5, hemoglobin 11.8, hematocrit 36.3, and a normal platelet count. Sodium 134, potassium 5, chlorides 99, CO2 26, BUN 36, creatinine 0.71. Calcium is 8.0. The patient's chest x-ray is unchanged. On today's evaluation of 03/23/2023, the patient is being seen for a follow-up. The patient is postop day #8 as the patient underwent a robotic-assisted left upper lobectomy. The patient continues to have significant amount of opacification of the left lung and today's chest x-ray along with volume loss and this is consistent with mucus plugging. Based on that, I performed a bronchoscopy on the patient. There was copious amount of thick purulent blister secretions occupying the left mainstem bronchus and the trachea and the various segments of the left lower lobe. Therapeutic airway suctioning was done. A bronchial lavage was done. The patient was started on IV antibiotics. She is afebrile for now. She was having issues with atrial fibrillation current rhythm is sinus and the patient remains on amiodarone 0.5 mg/m. No fever. No chills. No chest pain. Recommended utilization of CPAP was bronchoscopy to achieve better expansion of the left lung. The patient's white cell count at 7.0 with a hemoglobin 12 and a platelet count of 258. Sodium is at 135 potassium is at 5 the enzymes at 20 with a creatinine of 0.5 On today's evaluation of 03/24/2023, the patient is postop day #9. The patient underwent a robotic-assisted left upper lobe lobectomy. The patient encounter with complete atelectasis of the left lower lobe. I performed a bronchoscopy yesterday on her. There was significant amount of mucus plugging as described and therapeutic airway suctioning was done and the bronchial lavage of the left lower lobe was done. There was limited expansion of the left left lung and the subsequent chest x-ray from today shows complete opacification. The bronchial lavage was sent for microbial cultures and the patient was started on antibiotics and the patient is currently on IV Zosyn. The white cycles at 7 wit h a hemoglobin of 11.3. BUN is at 70 with a creatinine of 0.5. She has been on 2 L of Oxymizer nasal cannula with a pulse ox of 96%. In terms of her cardiac status, the patient went into atrial fibrillation with RVR this morning. She remains in atrial fibrillation fibrillation for now. Cardiology is managing the A. fib. The patient is on metoprolol 12.5 mg twice a day and amiodarone 400 mg by mouth twice a day. She is on Lovenox for DVT prophylaxis. Nontender guidance for now. [employer] Operations Manager on the case. Echocardiogram was done and the patient had an ejection fraction of 55-60%. No other significant abnormalities of the notice. On today's evaluation of 03/17/2023, the patient is postop day #10 pH is scheduled to undergo another bronchoscopy today. She is a CPAP overnight. Chest x-ray findings are unchanged in the left lung is still opacified. His sputum sample was negative. The bronchoalveolar lavage yielded gram-negative bacillus and the patient awaiting final cultures and meanwhile she is covered with IV Zosyn. No fever. No chills. No significant respiratory distress at rest. The white cell count at 7.4, hemoglobin 11.3 and a platelet count of 232. BUN is at 19 with a creatinine of 0.6. The plan is to undergo another bronchoscopy today. Noted the patient had tracheal bronchomalacia, significant mucus plugging and narrowing of the left lower lobe bronchus. The stump to the left upper lobe bronchus was within normal limits. On today's evaluation the patient is postop day #11 and the patient is being seen in follow-up on 03/26/2023. The patient has completed a total of 4 bronchoscopies. The left lung continues to be opacified. Bronchomalacia mucus plugging and the patient underwent a computed bronchoscopies and therapeutic airway suctioning. The culture was positive for Haemophilus influenza. The patient is adamant in going home. I think it's possible as long as the patient is on antibiotics and using incentive spirometer and I can do a short-term follow-up on this patient. She will obviously need home O2 at 2 L. She has a white cell count of 8.1, hemoglobin 11.2, BUN is at 60 with a creatinine of 0.7 and a sodium levels of 138 with a potassium level of 5.6. She was on IV Zosyn and she'll be switched to Levaquin at time of discharge. The rest of the medications remain unchanged. Cardiac rhythm is sinus. Objective - Vital Signs Vital signs: Vital Signs Temp 98.2 F 03/25/23 03:17 Pulse 61 03/26/23 14:00 Resp 20 03/26/23 14:00 BP 145/65 03/26/23 12:00 Pulse Ox 98 03/26/23 12:00 FiO2 40 03/23/23 21:31 Intake & Output 03/25/23 03/26/23 03/26/23 18:59 06:59 18:59 Intake Total 200 460 Output Total 300 450 Balance -100 -450 460 Weight 87.6 kg Intake: IV 200 Intake, IV Titration 100 Amount Piperacillin-Tazobactam 3 100 .375 gm In Sodium Chloride 0.9% 100 ml @ 25 mls/hr IVPB Q8HR [facility] Rx# :[id number] Oral 360 Output: Urine 300 450 Other: Voiding Method Toilet Toilet Toilet # Voids 1 2 ABP, PAP, CO, CI - Last Documented Arterial Blood Pressure 99/38 - Exam No acute distress, oriented 3. Currently on 2 L high flow nasal cannula. HEENT examination is grossly unremarkable. Mucous membranes are moist. No oral lesions. Neck supple. Full range of motion. No adenopathy thyromegaly or neck vein distention. Cardiovascular examination reveals regular rhythm rate. S1-S2 normal. No S3 or S4. No discernible murmur noted. Lungs reveal diminished bilateral breath sounds, left greater than right. Diminished breath on the left lung compared to the right. Surgical once is striking and intact. Abdomen soft bowel sounds are heard. No masses or tenderness. Extremities are intact. No cyanosis clubbing or edema. Skin is without rash or lesion. Neurologic examination is brief but nonfocal. - Labs CBC & Chem 7: 03/26/23 08:14 03/26/23 08:14 Labs: Abnormal Lab Results - Last 24 Hours (Table) 03/25/23 03/25/23 03/26/23 Range/Units 17:08 21:08 03:25 RBC (3.80-5.40) m/uL Hgb (11.4-16.0) gm/dL Potassium (3.5-5.1) mmol/L Glucose (74-99) mg/dL POC Glucose (mg/dL) 198 H 189 H 128 H (70-110) mg/dL Calcium (8.4-10.2) mg/dL 03/26/23 03/26/23 03/26/23 Range/Units 06:30 08:14 08:14 RBC 3.48 L (3.80-5.40) m/uL Hgb 11.2 L (11.4-16.0) gm/dL Potassium 5.6 H (3.5-5.1) mmol/L Glucose 184 H (74-99) mg/dL POC Glucose (mg/dL) 229 H (70-110) mg/dL Calcium 8.1 L (8.4-10.2) mg/dL Microbiology - Last 24 Hours (Table) 03/23/23 11:00 Gram Stain - Final Bronchoalviolar Lavage - Left Bronchial Washings Culture - Final Haemophilus influenzae Assessment and Plan Plan: Postop day # 11 status post robotically assisted thoracoscopic left upper lobectomy with mediastinal lymph node dissection, for early stage NSCLC. Left lung collapse, essentially the left lower lobe secondary to mucous plugs. Bronchoscopy was done, a vigorous suctioning of the mucous plugs was performed. Cultures were sent and the patient was placed on CPAP. 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 Unfortunately, the especially left lung was minimal and that is persistent opacification of the left chest on today's chest x-ray. There is only a small left-sided pleural effusion and the left lung base. As such, the patient may need another bronchoscopy. As mentioned, she has tracheal bronchomalacia and significant mucus plugging and she was thought on IV antibiotics. Is also significant consolidation of the left lung base on the CAT scan findings. A total of 4 bronchoscopies was done during this current admission. Left lung remains opacified. There is also Haemophilus influenza and the bronchial lavage, consider superinfections/pneumonia complicating the postoperative course with development of significant mucus plugging Acute hypoxic respiratory failure currently on 2 L of oxygen nasal cannula Small left-sided pleural effusion Tracheal bronchomalacia New-onset atrial fibrillation with rapid ventricular response, 03/22/2023. The patient is being managed by cardiology and the patient is currently on oral metoprolol and amiodarone. No anticoagulants for now. The patient is back into sinus mechanism History of chronic obstructive pulmonary disease. History of CVA. History of diabetes mellitus. History of hypertension. History of hyperlipidemia. History of alcohol abuse and heroin abuse. History of hepatitis B and C. Plan: Chest x-ray findings of essentially unchanged Continue IV Zosyn and switch this patient on Levaquin at time of discharge Range home O2 Encourage the use of CPAP for battery expansion of the left lung No need for thoracentesis of pleural fluid the small Continue bronchodilators Symbicort Lovenox portably prophylaxis Incentive spirometer Currently on oxygen at 2 L with nasal cannula Arrange home O2 and the patient is likely going home within next 24 hours on home O2, antibiotics, bronchodilators, incentive spirometer and aggressive pulmonary toileting.
[2023-03-26 16:42] LABS: Glucose,Whole Blood 161 mg/dL (70-110)
[2023-03-26 20:13] LABS: Glucose,Whole Blood 160 mg/dL (70-110)
[2023-03-27] MEDS: PIPERACILLIN-TAZOBACTAM 3.375 GM in SODIUM CHLORIDE 0.9% 100 ML IVPB SCH ×3 (00:47→16:52)
[2023-03-27 02:06] LABS: Glucose,Whole Blood 149 mg/dL (70-110)
[2023-03-27] MEDS: INSULIN ASPART (NovoLOG) 100 UNIT/ML VIAL SQ SCH ×7 (02:30→16:51)
[2023-03-27] MEDS: HYDROcodone/APAP 5-325MG 1 EACH TAB PO PRN (05:35)
[2023-03-27 06:22] LABS: Glucose,Whole Blood 166 mg/dL (70-110)
[2023-03-27] MEDS: PANTOPRAZOLE 40 MG TABLET PO SCH (07:22)
[2023-03-27] MEDS: INSULIN DETEMIR (LEVEMIR) 100 UNIT/ML SYR SQ SCH (07:22)
--- NOTE | 2023-03-27 07:23 | P.PN ---
Subjective Progress Note Date: 03/27/23 Principal diagnosis: Insulin dependent diabetes with poor glycemic control, hyperglycemia, hypomagnesemia, left upper lobe mass positive for well-differentiated adenocarcinoma. History of current tobacco dependence, COPD, daily EtOH use, hypertension, hyperlipidemia, stroke in 2016 with right-sided weakness, hepatitis B and C, bipolar depression, IV heroin use with last use August 2018 POD#12 Robotic assisted thoracoscopic left upper lobectomy with mediastinal lymph node dissection, fiberoptic bronchoscopy for evacuation of inspissated sputum Paroxysmal atrial fibrillation, known potential complication of lung surgery Hypotension although MAP stable, not requiring pressors, resolved Left lower lobe atelectasis, mucus plug occupying the left mainstem bronchus and the left lower lobe bronchus, tracheobronchomalacia Flexible bronchoscopy, bronchial lavage of the left lower lobe completed 03/19/[address] Reynolds, and 03/23/23 and 03/25/[address] Lucia The patient was seen and examined this morning sitting up in a recliner in no acute distress. States she is feeling much better and wants to go home. Yesterday morning the patient was adamant she was leaving AGAINST MEDICAL ADVICE, however patient chose to stay after being given Ativan yesterday morning and being allowed to sleep for several hours. Home oxygen evaluation was completed and patient will need oxygen at home due to COPD. Bronchoalveolar lavage specimen sent 03/23 came back positive for Haemophilus influenza, patient remains on IV antibiotics and will need to be transitioned to oral Lasix at discharge. Objective - Vital Signs Vital signs: Vital Signs Temp 98.2 F 03/25/23 03:17 Pulse 55 L 03/27/23 04:00 Resp 16 03/27/23 04:00 BP 116/69 03/27/23 04:00 Pulse Ox 94 L 03/27/23 04:00 FiO2 40 03/23/23 21:31 Intake & Output 03/26/23 03/27/23 03/27/23 18:59 06:59 18:59 Intake Total 1000 Output Total 330 Balance 1000 -330 Intake: Intake, IV Titration 100 Amount Piperacillin-Tazobactam 3 100 .375 gm In Sodium Chloride 0.9% 100 ml @ 25 mls/hr IVPB Q8HR [facility] Rx# :[id number] Oral 900 Output: Urine 330 Other: Voiding Method Toilet Toilet # Bowel Movements 1 ABP, PAP, CO, CI - Last Documented Arterial Blood Pressure 99/38 - Exam CONSTITUTIONAL: Appears comfortable, cooperative, no acute distress RESPIRATORY: Lungs sounds diminished on the left. Respirations even, nonlabored. Currently on 2 LPM NC with oxygen saturation 94%. Able to achieve 1000 mL on incentive spirometry, continues to use flutter valve. Strong cough. CARDIOVASCULAR: S1, S2 present. Regular rate and rhythm, sinus rhythm on telemetry. Palpable peripheral pulses bilaterally. No edema present. No calf pain or tenderness noted GASTROINTESTINAL: Abdomen soft, nontender, nondistended. Active bowel sounds present 4 quadrants. Tolerating diet. Positive bowel movement 03/27 INTEGUMENTARY: Skin is warm and dry. Thoracic incisions well approximated NEUROLOGIC: Cranial nerves II through XII intact MUSKULOSKELETAL: Able to move all extremities, strength equal bilaterally PSYCHIATRIC: Alert and oriented to person place and time, flat affect - Allied health notes Allied health notes reviewed: nursing - Labs CBC & Chem 7: 03/26/23 08:14 03/26/23 08:14 Labs: Abnormal Lab Results - Last 24 Hours (Table) 03/26/23 03/26/23 03/26/23 Range/Units 08:14 08:14 16:41 RBC 3.48 L (3.80-5.40) m/uL Hgb 11.2 L (11.4-16.0) gm/dL Potassium 5.6 H (3.5-5.1) mmol/L Glucose 184 H (74-99) mg/dL POC Glucose (mg/dL) 161 H (70-110) mg/dL Calcium 8.1 L (8.4-10.2) mg/dL 03/26/23 03/27/23 03/27/23 Range/Units 20:11 02:03 06:20 RBC (3.80-5.40) m/uL Hgb (11.4-16.0) gm/dL Potassium (3.5-5.1) mmol/L Glucose (74-99) mg/dL POC Glucose (mg/dL) 160 H 149 H 166 H (70-110) mg/dL Calcium (8.4-10.2) mg/dL Microbiology - Last 24 Hours (Table) 03/23/23 11:00 Gram Stain - Final Bronchoalviolar Lavage - Left Bronchial Washings Culture - Final Haemophilus influenzae - Imaging and Cardiology Chest x-ray: image reviewed Assessment and Plan Assessment: Insulin dependent diabetes with poor glycemic control, hyperglycemia, A1c 9.8% Hypomagnesemia Left upper lobe mass positive for well-differentiated adenocarcinoma, status post left upper lobectomy Current tobacco dependence Moderate COPD, preoperative FEV1 54% of predicted, DLCO 36% of predicted Current daily EtOH use Hypertension Hyperlipidemia Stroke in 2016 with right-sided weakness Hepatitis B and C Bipolar depression History of IV heroin use with last use August 2018 Paroxysmal atrial fibrillation, currently sinus rhythm Left lung collapse, left lung opacification, status post bronchoscopy performed by Dr. Reynolds 03/19/23 Left lower lobe atelectasis, mucus plug occupying the left mainstem bronchus and the left lower lobe bronchus, tracheobronchomalacia, status post flexible bronchoscopy, bronchial lavage of the left lower lobe by Dr. Lucia 03/23/23 and again 03/25/2023 Plan: Continue amiodarone, beta ana maría for A. fib per cardiology recommendation. No anticoagulation due to recent surgery, repeated bronchoscopies, regular alcohol use at home Continue to improve blood glucose control, insulin adjustments made by primary service Increase activity, ambulate as tolerated. Patient should be out of bed for all meals, she should be out of bed the majority of the day and use the bed for sleeping at nighttime only Wean oxygen as tolerated. Encourage incentive spirometry 10x every hour while awake. Bronchodilators per pulmonology Nicotine patch in place Smoking cessation counseling and education reinforced Continue Tylenol for pain control Patient may shower daily Discharge follow-up appointments made for Drs. June and Khari, needs antibiotics at discharge, preferably Levaquin per Dr. Lucia
[2023-03-27] MEDS: IPRATROPIUM-ALBUTEROL 3 ML NEB IH SCH ×3 (08:44→16:20)
[2023-03-27] MEDS: SYMBICORT 80-4.5 MCG INHALER INHALATION SCH (08:44)
[2023-03-27] MEDS: ACETYLCYSTEINE 800 MG/4 ML VIAL INHALATION SCH ×3 (08:44→16:20)
[2023-03-27] MEDS: METOPROLOL TARTRATE 12.5 MG TAB PO SCH (09:24)
[2023-03-27] MEDS: ATORVASTATIN 10 MG TAB PO SCH (09:24)
[2023-03-27] MEDS: NICOTINE 7MG/24HR PATCH TRANSDERM SCH (09:25)
[2023-03-27] MEDS: MAGNESIUM OXIDE 400 MG TAB PO SCH (09:25)
[2023-03-27] MEDS: AMIODARONE 200 MG TAB PO SCH (09:25)
[2023-03-27] MEDS: THIAMINE 100 MG TAB PO SCH (09:25)
[2023-03-27] MEDS: FOLIC ACID 1 MG TAB PO SCH (09:25)
[2023-03-27] MEDS: GABAPENTIN 400 MG CAP PO SCH ×2 (09:25→16:51)
[2023-03-27] MEDS: ENOXAPARIN 40 MG/0.4 ML SYRINGE SQ SCH (09:32)
[2023-03-27 11:32] LABS: Glucose,Whole Blood 147 mg/dL (70-110)
--- NOTE | 2023-03-27 12:43 | P.PN ---
Subjective Progress Note Date: 03/27/23 This is a 57-year-old female who was admitted for possible left upper lobectomy, by Dr. June. Initially, the patient had a significant elevation in her blood, and the surgery was delayed. It was finally done today. He did call me after the procedure. In December of this year, my partner, did a flexible bronchoscopy, robotically-assisted bronchoscopy, and biopsies, the lesion, and the left upper lobe. The biopsies were positive for well-differentiated pulmonary adenocarcinoma. Currently, the patient's resting comfortably in the intensive care unit. The patient's on 4 L of oxygen, and getting saline at 50 mL an hour. Again as I mentioned above, I did speak to the surgeon about this patient. He was concerned that she may need bronchoscopy over the next few days, for left lung collapse. Apparently her airways were full of mucus. Currently labs data only includes a glucose of 260. Chest x-ray shows a left- sided consolidation and a small effusion, with no sizable pneumothorax. Chest tube is noted. Labs from yesterday include a white count of 5.9, hemoglobin 13.4, hematocrit 39.7, and a platelet count of 96,000. Sodium 137, potassium 4.3, chlorides 102, CO2 27, UN 15, and creatinine 0.7. N-terminal proBNP was 166. Progress note dated 03/16/2023. 57-year-old female postop day #1, status post robotically assisted thoracoscopic left upper lobectomy for lung cancer. The patient is seen today in room 257. She is on 2 L of oxygen. She's getting saline at 50 mL an hour. According to the nurses, the patient had an uneventful night. The patient's resting comfortably in bed. Again, she is on 2 L, by nasal cannula. White count 11.2, hemoglobin 13.4, and platelet count 105,000. Sodium 135, potassium 3.9, chlorides 99, CO2 28, BUN 14, creatinine 0.49. Magnesium 1.4. Chest x-rays shows some volume loss in the left lung, with some left-sided consolidation, and a small effusion. Progress note dated 03/17/2023. 57-year-old female, postop day #2, status post robotically assisted thoracoscopic left upper lobectomy for lung cancer. The patient is seen today in room 362. She's currently on room air, but saturations are only 87%. I asked respiratory therapy to place her on oxygen at 2 L. The left-sided chest tube had been removed. She's getting saline at 10 mL an hour. White count is 10.7, hemoglobin 13.1, hematocrit 40, and platelet count 108,000. Sodium 127, potassium 4.2, chlorides 94, CO2 25, BUN 31, and creatinine 0.71. Calcium is 8.2. Magnesium is 2.2. Chest x-ray from today shows postoperative changes, with stable left-sided consolidation and small pleural effusion. No pneumothorax is seen. Progress note dated 03/18/2023. 57-year-old female, postoperative day #3, status post robotically assisted thoracoscopic left upper lobectomy for early stage lung cancer. The patient was outside on the general floor, but came back into the intensive care unit, room 251, because of atrial fibrillation with rapid ventricular response. Currently, she is seen in the ICU, and is currently on 7 L high flow oxygen, and amiodarone at 1 mg/m. We did make her nothing by mouth after midnight, for possible bronchoscopy tomorrow. Her chest x-ray shows partial collapse of the left lung. White count is 10.7, hemoglobin 0.9, hematocrit 38.6, with a platelet count of 141,000. Sodium 127, potassium 4.2, chlorides 94, CO2 22, BUN 50, and creatinine 0.85. Glucose 223. Albumin is 2.9. Chest x-ray shows increasing left-sided consolidation and pleural effusion, with volume loss. There may be a tiny left apical pneumothorax. Progress note dated 03/19/2023. 57-year-old female postop day #4, status post robotically assisted thoracoscopic left upper lobectomy for early stage lung cancer. The patient was out on the general medical floor, but came back to the intensive care unit, because of atrial fibrillation/RVR. The patient's most recent chest x-ray shows near complete collapse of the left lung, so, the patient will undergo bronchoscopy sometime today. She's currently seen in the intensive care unit, room 251. The patient is on 4 L of oxygen. She's currently on amiodarone at 0.5 mg/m. The bronchoscopy was done at the bedside, with the aid of anesthesia. White count is 8.4, hemoglobin 12.9, hematocrit 36.6, and lately count 95,000. Sodium 127, potassium 5, chlorides 97, CO2 20, BUN 53, creatinine 0.81. Calcium is 8.2. Ch est x-ray shows near complete opacification of the left lung. Progress note dated 03/20/2023. 57-year-old female, postop day #5, status post robotically assisted thoracoscopic left upper lobectomy for early stage lung cancer. The patient is seen today in room 251. Yesterday, because of left lung collapse, she underwent bronchoscopy. It was done at the bedside, with the help of anesthesia. Ca rdiothoracic surgery setting her for a CAT scan without contrast today. She is a 3 S. overflow patient. He is on 2 L. She's not receiving any IV fluids. White count 10.5, hemoglobin 13.2, hematocrit 39.8, and platelet count is normal. Sodium 127, potassium 5.3, chlorides 98, CO2 18, BUN 54, creatinine 0.84. Calcium is 8.4. Chest x-ray shows improved aeration, left upper lobe. Progress note dated 03/21/2023. 57-year-old female, postop day #6, status post robotically assisted thoracoscopi c left upper lobectomy for early stage lung cancer. The patient's chest x-ray today shows a developing infiltrate in the right lung, also seen on computed tomography scan, and nearly complete left lung collapse. The patient has had previous bronchoscopy, and will have another one today. He's currently on 2 L. No IV fluids. We did send in a pro-calcitonin level. She is currently not on any antibiotics. No new labs today. Progress note dated 03/22/2023. 57-year-old female, postoperative day #7, status post robotically assisted thoracoscopic left upper lobectomy, for stage I lung cancer. The patient's chest x-ray, is showing a abnormality, in the left lung, consistent with collapse, as well, as an infiltrate, and the right lung, potentially consistent with pneumonia. This is best seen on the most recent computed tomography scan. The patient was to have bronchoscopy yesterday, but it was canceled by anesthesia because of a potassium of 5.5. This morning, her potassium was 5.3, repeat after dextrose and insulin was 5. Unfortunately, the patient has also developed atrial fibrillation with a rapid ventricular response. Anesthesia will decide whether or not move forward with a bronchoscopy. Currently labs include a white count 7.5, hemoglobin 11.8, hematocrit 36.3, and a normal platelet count. Sodium 134, potassium 5, chlorides 99, CO2 26, BUN 36, creatinine 0.71. Calcium is 8.0. The patient's chest x-ray is unchanged. On today's evaluation of 03/23/2023, the patient is being seen for a follow-up. The patient is postop day #8 as the patient underwent a robotic-assisted left upper lobectomy. The patient continues to have significant amount of opacification of the left lung and today's chest x-ray along with volume loss and this is consistent with mucus plugging. Based on that, I performed a bronchoscopy on the patient. There was copious amount of thick purulent blister secretions occupying the left mainstem bronchus and the trachea and the various segments of the left lower lobe. Therapeutic airway suctioning was done. A bronchial lavage was done. The patient was started on IV antibiotics. She is afebrile for now. She was having issues with atrial fibrillation current rhythm is sinus and the patient remains on amiodarone 0.5 mg/m. No fever. No chills. No chest pain. Recommended utilization of CPAP was bronchoscopy to achieve better expansion of the left lung. The patient's white cell count at 7.0 with a hemoglobin 12 and a platelet count of 258. Sodium is at 135 potassium is at 5 the enzymes at 20 with a creatinine of 0.5 On today's evaluation of 03/24/2023, the patient is postop day #9. The patient underwent a robotic-assisted left upper lobe lobectomy. The patient encounter with complete atelectasis of the left lower lobe. I performed a bronchoscopy yesterday on her. There was significant amount of mucus plugging as described and therapeutic airway suctioning was done and the bronchial lavage of the left lower lobe was done. There was limited expansion of the left left lung and the subsequent chest x-ray from today shows complete opacification. The bronchial lavage was sent for microbial cultures and the patient was started on antibiotics and the patient is currently on IV Zosyn. The white cycles at 7 wit h a hemoglobin of 11.3. BUN is at 70 with a creatinine of 0.5. She has been on 2 L of Oxymizer nasal cannula with a pulse ox of 96%. In terms of her cardiac status, the patient went into atrial fibrillation with RVR this morning. She remains in atrial fibrillation fibrillation for now. Cardiology is managing the A. fib. The patient is on metoprolol 12.5 mg twice a day and amiodarone 400 mg by mouth twice a day. She is on Lovenox for DVT prophylaxis. Nontender guidance for now. Observation Assistant on the case. Echocardiogram was done and the patient had an ejection fraction of 55-60%. No other significant abnormalities of the notice. On today's evaluation of 03/17/2023, the patient is postop day #10 pH is scheduled to undergo another bronchoscopy today. She is a CPAP overnight. Chest x-ray findings are unchanged in the left lung is still opacified. His sputum sample was negative. The bronchoalveolar lavage yielded gram-negative bacillus and the patient awaiting final cultures and meanwhile she is covered with IV Zosyn. No fever. No chills. No significant respiratory distress at rest. The white cell count at 7.4, hemoglobin 11.3 and a platelet count of 232. BUN is at 19 with a creatinine of 0.6. The plan is to undergo another bronchoscopy today. Noted the patient had tracheal bronchomalacia, significant mucus plugging and narrowing of the left lower lobe bronchus. The stump to the left upper lobe bronchus was within normal limits. On today's evaluation the patient is postop day #11 and the patient is being seen in follow-up on 03/26/2023. The patient has completed a total of 4 bronchoscopies. The left lung continues to be opacified. Bronchomalacia mucus plugging and the patient underwent a computed bronchoscopies and therapeutic airway suctioning. The culture was positive for Haemophilus influenza. The patient is adamant in going home. I think it's possible as long as the patient is on antibiotics and using incentive spirometer and I can do a short-term follow-up on this patient. She will obviously need home O2 at 2 L. She has a white cell count of 8.1, hemoglobin 11.2, BUN is at 60 with a creatinine of 0.7 and a sodium levels of 138 with a potassium level of 5.6. She was on IV Zosyn and she'll be switched to Levaquin at time of discharge. The rest of the medications remain unchanged. Cardiac rhythm is sinus. On today's evaluation of 03/27/2023, the patient continues to have a completely opacified left lung. As mentioned, she has ongoing the left lower lobe bronchus orifice along with tracheal bronchomalacia which is severe and copious amount of respiratory secretions. I discussed the case with the cardiothoracic surgeon. We will going to discharge this patient home on Augmentin to be followed up on outpatient basis patient will need home O2. His very much like it and the patient may need further evaluation including the potential of a pneumonectomy with a completion pneumonectomy on the left specially of the left lung remains atelectatic and becomes a source of infection. For now, she is to strengthen and she'll be discharged home on 2 L of oxygen nasal cannula. She was diagnosed having a Haemophilus influenza infection. She is afebrile. She is in with intermittent stable. She is weak. Objective - Vital Signs Vital signs: Vital Signs Temp 98.2 F 03/27/23 08:20 Pulse 64 03/27/23 08:57 Resp 16 03/27/23 08:20 BP 113/72 03/27/23 08:20 Pulse Ox 99 03/27/23 08:20 FiO2 40 03/23/23 21:31 Intake & Output 03/26/23 03/27/23 03/27/23 18:59 06:59 18:59 Intake Total 1000 240 Output Total 330 Balance 1000 -330 240 Intake: Intake, IV Titration 100 Amount Piperacillin-Tazobactam 3 100 .375 gm In Sodium Chloride 0.9% 100 ml @ 25 mls/hr IVPB Q8HR [facility] Rx# :[id number] Oral 900 240 Output: Urine 330 Other: Voiding Method Toilet Toilet # Bowel Movements 1 ABP, PAP, CO, CI - Last Documented Arterial Blood Pressure 99/38 - Exam No acute distress, oriented 3. Currently on 2 L high flow nasal cannula. HEENT examination is grossly unremarkable. Mucous membranes are moist. No oral lesions. Neck supple. Full range of motion. No adenopathy thyromegaly or neck vein distention. Cardiovascular examination reveals regular rhythm rate. S1-S2 normal. No S3 or S4. No discernible murmur noted. Lungs reveal diminished bilateral breath sounds, left greater than right. Diminished breath on the left lung compared to the right. Surgical once is striking and intact. Abdomen soft bowel sounds are heard. No masses or tenderness. Extremities are intact. No cyanosis clubbing or edema. Skin is without rash or lesion. Neurologic examination is brief but nonfocal. - Labs CBC & Chem 7: 03/26/23 08:14 03/26/23 08:14 Labs: Abnormal Lab Results - Last 24 Hours (Table) 03/26/23 03/26/23 03/27/23 Range/Units 16:41 20:11 02:03 POC Glucose (mg/dL) 161 H 160 H 149 H (70-110) mg/dL 03/27/23 03/27/23 Range/Units 06:20 11:31 POC Glucose (mg/dL) 166 H 147 H (70-110) mg/dL Microbiology - Last 24 Hours (Table) 03/23/23 11:00 Gram Stain - Final Bronchoalviolar Lavage - Left Bronchial Washings Culture - Final Haemophilus influenzae Assessment and Plan Plan: Postop day # 11 status post robotically assisted thoracoscopic left upper lobectomy with mediastinal lymph node dissection, for early stage NSCLC. Left lung collapse, essentially the left lower lobe secondary to mucous plugs. Bronchoscopy was done, a vigorous suctioning of the mucous plugs was performed. Cultures were sent and the patient was placed on CPAP. 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 Unfortunately, the especially left lung was minimal and that is persistent opacification of the left chest on today's chest x-ray. There is only a small left-sided pleural effusion and the left lung base. As such, the patient may need another bronchoscopy. As mentioned, she has tracheal bronchomalacia and significant mucus plugging and she was thought on IV antibiotics. Is also significant consolidation of the left lung base on the CAT scan findings. A total of 4 bronchoscopies was done during this current admission. Left lung remains opacified. There is also Haemophilus influenza and the bronchial lavage, consider superinfections/pneumonia complicating the postoperative course with development of significant mucus plugging Acute hypoxic respiratory failure currently on 2 L of oxygen nasal cannula Small left-sided pleural effusion Tracheal bronchomalacia New-onset atrial fibrillation with rapid ventricular response, 03/22/2023. The patient is being managed by cardiology and the patient is currently on oral metoprolol and amiodarone. No anticoagulants for now. The patient is back into sinus mechanism History of chronic obstructive pulmonary disease. History of CVA. History of diabetes mellitus. History of hypertension. History of hyperlipidemia. History of alcohol abuse and heroin abuse. History of hepatitis B and C. Plan: Chest x-ray findings of essentially unchanged Discussed the case with cardiothoracic surgery. We agreed on discharging this patient home on oxygen and antibiotics. We decided to syndrome on Augmentin. Outpatient follow-up will be needed to assess the progression of the left lung. At the left lung remains atelectatic and the patient continues to lung collapse, she may need a completion pneumonectomy. Noted the patient has significant tracheal bronchomalacia which along with mucous plug is preventing the the especially the left lung. The left-sided pleural effusion is small. Arrange home oxygen at 2 L a minute nasal cannula Continue bronchodilators Symbicort Lovenox portably prophylaxis Incentive spirometer Currently on oxygen at 2 L with nasal cannula Smoking cessation Discharge planning is in progress
--- NOTE | 2023-03-27 14:13 | XR ---
EXAMINATION TYPE: XR chest 2V DATE OF EXAM: 03/27/2023 6:58 AM CLINICAL INDICATION:Female, 57 years old with history of post lobectomy; [facility] COMPARISON: 03/26/2023 and before TECHNIQUE: XR chest 2V. Frontal PA and lateral views of the chest. FINDINGS: EKG leads overlie the chest. No indwelling lines are seen. Redemonstration of volume loss with near complete white out appearance throughout the left hemithorax, with minimal aerated lung suggested tow ards the apex. The last study shows the faint suggestion of an air fluid level superolaterally sugges ting hydropneumothorax (which was also demonstrated on prior CT 03/20/2023), but this is not conspicu ous on this study, either due to a true decrease in size/gaseous component or differences in patient positioning. Right lung appears stable, with interstitial coarsening throughout and some vague hazy o pacity which could be due to edema or pneumonitis. Small to moderate right pleural effusion shows christina e interval increase from the last exam. Cardiomediastinal silhouette is unchanged, shifted slightly t owards the left and the trachea bows towards the left, consistent with volume loss. Osseous structure s appear grossly unchanged. No significant subcutaneous emphysema is appreciated. IMPRESSION: 1. Redemonstration of volume loss with near complete white out of the left hemithorax, likely due to a combination of postoperative changes, pleural fluid, lung consolidation/atelectasis. 2. Decreased conspicuity of left hydropneumothorax, either due to a true decrease in size/gaseous co mponent or differences in patient positioning. 3. Right lung appears stable, with interstitial coarsening throughout and some vague hazy opacity wh ich could be due to edema or pneumonitis. 4. Small to moderate right pleural effusion, with some interval increase from the last exam.
[2023-03-27 16:23] LABS: Glucose,Whole Blood 88 mg/dL (70-110)
[2023-03-27 17:26] VITALS: BP 134/78; PULSE 106; RESP 16; TEMP 98.5
--- NOTE | 2023-03-27 23:14 | P.DS ---
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 Patient monitored in the ICU postoperatively and transferred to the general medical floor at [facility] - Current postoperative left lung collapse despite several bronchoscopy proce dures. Stable for discharge with recommendation for left pneumonectomy if no improvement patient informed and agreed -Near-complete opacification of the left lung, recurrent, as of the -Acute hypoxic respiratory failure , patient discharged on home oxygen -Diabetes mellitus with hyperglycemia, better controlled but she -Hypotension, improved -Nonadherent, patient was living -Hypovolemic hypernatremia -COPD without any acute exacerbation -hyperlipidemia -Hypertension -hypervascular disease -continued nicotine use: Counseling was provided Hospital course: Patient is a 57-year-old female came in for elective pulmonary lobectomy for lung cancer . She has a diagnosis of NSCLC, after the procedure her course was complicated with new onset atrial fibrillation and she was started on metoprolol but no anticoagulation because of her recent surgery and per recommendation of cardioversions and cardia thoracic surgeon this will be deferred to outpatient in 1-2 weeks and patient informed and she agrees. She had recurrent collapse of the left lung with complete or near complete opacification on the chest x-rays. She underwent more than one procedure a bronchoscopy to open her lung before it collapses again. As such I discussed the case with cardiothoracic surgery team and Dr. June who did her for discharge, he recommended one month of Augmentin and close outpatient follow-up to check for recurrent prolapse, next a separate be left pneumonectomy. Pulmonary team also to the patient for discharge with similar recommendations. Patient herself was very eager to go home today. Over the last 3 days she wanted to leave AMA twice. Patient denies any new complaints. No significant change in urine or bowel habits. No fever. No chest pain. Patient is high-risk for complication and preadmission. Patient was cleared for discharge by all consultants including cardiothoracic surgery, front office representative, chronograph operator Patient is discharged on Regimen of insulin, patient informed and she agrees. Also she told me she has glucometer at home and she agrees to check her sugar as instructed. Also she was educated about hypo-and hyperglycemia and how to deal with it extensively and she agrees. Problems and management plan were discussed with the patient and he verbalized understanding and acceptance Patient was found stable and can be discharged home in guarded prognosis however he needs follow-up as an outpatient. Patient was instructed to follow up with PCP Dr. lau within one week and patient agrees Patient was instructed to follow up with Dr. Slade Ireland and she agrees and Dr. Lucia on 04/06 and she agrees. Was instructed to follow up with front office representative Dr. Villavicencio in 1-2 weeks and she agrees Physical exam Gen: patient is a AAOx3, no distress CVS: S1-S2, RRR, no murmur -Lungs: B/L CTA, no wheezing on 2 L oxygen via nasal cannula Abdomen: soft, no distention, no tenderness, positive bowel sounds Extremity: no leg edema or induration Time spent more than 35 minutes Patient Condition at Discharge: Stable Plan - Discharge Summary Discharge Rx Participant: Yes New Discharge Prescriptions: New Amiodarone [Cordarone] 400 mg PO BID #120 tab Magnesium Oxide [Mag-Ox] 400 mg PO BID 5 Days #10 tab INSULIN ASPART (NovoLOG) [NovoLOG (formulary)] 12 unit SQ AC-TID #8 gm INSULIN ASPART (NovoLOG) [NovoLOG (formulary)] 0 unit SQ [id number] #8 gm Thiamine [Vitamin B-1] 100 mg PO DAILY #30 tab Amoxic-Pot Clav 875-125Mg [Augmentin 875-125] 1 tab PO BID 30 Days #60 tab Docusate [Colace] 100 mg PO DAILY PRN 7 Days #20 cap PRN Reason: Constipation Folic Acid 1 mg PO DAILY #30 tab Nicotine 7Mg/24Hr Patch [Habitrol] 1 patch TRANSDERM DAILY #7 patch HYDROcodone/APAP 5-325MG [[place] 5-325] 1 each PO Q6HR PRN 15 Days #60 tab PRN Reason: Pain Pantoprazole [Protonix] 40 mg PO DAILY #30 tab Continue Atorvastatin [Lipitor] 10 mg PO DAILY Furosemide [Lasix] 20 mg PO DAILY Gabapentin 800 mg PO TID Fluticasone/Umeclidin/Vilanter [Trelegy Ellipta 100-62.5-25] 1 puff INHALATION RT-DAILY Losartan Potassium [Cozaar] 50 mg PO DAILY 30 Days #60 tab LORazepam [Ativan] 0.5 mg PO BID PRN PRN Reason: Anxiety Discontinued Dulaglutide [Trulicity] 1.5 mg SQ TU Insulin Glargine,Hum.rec.anlog [Lantus Solostar Pen] 15 unit SQ DAILY Discharge Medication List Atorvastatin [Lipitor] 10 mg PO DAILY 02/12/22 [History] Furosemide [Lasix] 20 mg PO DAILY 02/12/22 [History] Gabapentin 800 mg PO TID 05/22/22 [History] Losartan Potassium [Cozaar] 50 mg PO DAILY 30 Days #60 tab 05/27/22 [Rx] Fluticasone/Umeclidin/Vilanter [Trelegy Ellipta 100-62.5-25] 1 puff INHALATION RT-DAILY 03/09/23 [History] LORazepam [Ativan] 0.5 mg PO BID PRN 03/09/23 [History] Amiodarone [Cordarone] 400 mg PO BID #120 tab 03/27/23 [Rx] Amoxic-Pot Clav 875-125Mg [Augmentin 875-125] 1 tab PO BID 30 Days #60 tab 03/27/23 [Rx] Docusate [Colace] 100 mg PO DAILY PRN 7 Days #20 cap 03/27/23 [Rx] Folic Acid 1 mg PO DAILY #30 tab 03/27/23 [Rx] HYDROcodone/APAP 5-325MG [[place] 5-325] 1 each PO Q6HR PRN 15 Days #60 tab 03/27/23 [Rx] INSULIN ASPART (NovoLOG) [NovoLOG (formulary)] 0 unit SQ [id number] #8 gm 03/27/23 [Rx] INSULIN ASPART (NovoLOG) [NovoLOG (formulary)] 12 unit SQ AC-TID #8 gm 03/27/23 [Rx] Magnesium Oxide [Mag-Ox] 400 mg PO BID 5 Days #10 tab 03/27/23 [Rx] Nicotine 7Mg/24Hr Patch [Habitrol] 1 patch TRANSDERM DAILY #7 patch 03/27/23 [Rx] Pantoprazole [Protonix] 40 mg PO DAILY #30 tab 03/27/23 [Rx] Thiamine [Vitamin B-1] 100 mg PO DAILY #30 tab 03/27/23 [Rx] Follow up Appointment(s)/Referral(s): Mike Crooks MD [STAFF PHYSICIAN] - 2 Weeks Beka June MD [STAFF PHYSICIAN] - 04/08/23 2:30 pm [facility], [NON-STAFF] - 1 Week Zabrina Pardo MD [Primary Care Provider] - 1-2 days Michelle Lucia MD [STAFF PHYSICIAN] - 04/06/23 11:15 am Patient Instructions/Handouts: Lung Lobectomy (DC), Hypoglycemia in a Person with Diabetes (DC), Hypoglycemia in a Person with Diabetes (GEN), Diabetic Hyperglycemia (ED), Diabetic Hyperglycemia (DC) Activity/Diet/Wound Care/Special Instructions: DISCHARGE INSTRUCTIONS: 1. No driving for 2 weeks, or until physician gives their ok. 2. No lifting, pushing, or pulling more than 10 pounds for 2 weeks. The physician will advise of any restriction changes. 3. Continue pain control per as needed orders. Alternate acetaminophen (Ty lenol) and ibuprofen (Motrin/Advil) for pain. 4. Continue with incentive spirometry and splinting until otherwise directed by the physician. 5. Shower daily. 6. Routine incision care. No powders, lotions, ointments on incisions. 7. Please call surgeon/GIS DATABASE ADMINISTRATOR for temp greater than 101 F or purulent drainage from incisions. 8. Smoking cessation counseling and program information provided. NO SMOKIN G!!!! Quitting smoking is the most important step you can take to improve your health. For additional information and assistance to quit smoking, please call the [place] tobacco quit line (1-548-QQMI-NOW/ ) or online: [email or web address] [email or web address]/[email or web address]-to-qu it-tobacco we recommend to check your glucose 4 times a day before each meal and at bed time , keep the results in a log book and bring it to your doctor upon your appointment date if your glucose is less than 70 or more than 400 then call 911 and come to emergency room heart healthy diet activity is restricted till you see your doctor We recommend you follow-up with your front office representative Dr. Villavicencio and cardiothoracic surgeon Dr. Ireland in your primary care doctor many about starting anticoagulation for your heart arrhythmia of atrial fibrillation. Also discuss dozing of your amiodarone pills please Discharge Disposition: HOME WITH HOME HEALTH SERVICES
== END 2023-03-27 18:27 | disposition home health service (06) | DRG 120 ==
LOC: EC 08:13 → 5NMEDONC 10:55 → 2SICU 03-15 11:14 → 3SCARD 03-16 22:00 → 2SICU 03-18 04:41 → 3SCARD 03-22 23:47
PROVIDERS: ADMIT Hospitalist; ATTEND Hospitalist
PROC: 8E0W4CZ Robotic Assisted Procedure of Trunk Region, Percutaneous Endoscopic Approach (ICD-10-PCS; 2023-03-15)
PROC: 07B70ZX Excision of Thorax Lymphatic, Open Approach, Diagnostic (ICD-10-PCS; principal; 2023-03-15 07:30)
PROC: 0BTG4ZZ Resection of Left Upper Lung Lobe, Percutaneous Endoscopic Approach (ICD-10-PCS; 2023-03-15 07:30)
PROC: 0WCQ8ZZ Extirpation of Matter from Respiratory Tract, Via Natural or Artificial Opening Endoscopic (ICD-10-PCS; 2023-03-19)
PROC: 0B9J8ZX Drainage of Left Lower Lung Lobe, Via Natural or Artificial Opening Endoscopic, Diagnostic (ICD-10-PCS; 2023-03-23)
PROC: 0BCB8ZZ Extirpation of Matter from Left Lower Lobe Bronchus, Via Natural or Artificial Opening Endoscopic (ICD-10-PCS; 2023-03-23)
PROC: 0BC18ZZ Extirpation of Matter from Trachea, Via Natural or Artificial Opening Endoscopic (ICD-10-PCS; 2023-03-23)
PROC: 0BC78ZZ Extirpation of Matter from Left Main Bronchus, Via Natural or Artificial Opening Endoscopic (ICD-10-PCS; 2023-03-23)
PROC: 0WCQ8ZZ Extirpation of Matter from Respiratory Tract, Via Natural or Artificial Opening Endoscopic (ICD-10-PCS; 2023-03-25)
DX: C34.12 Malignant neoplasm of upper lobe, left bronchus or lung (principal); D69.6 Thrombocytopenia, unspecified; B19.10 Unspecified viral hepatitis B without hepatic coma; R00.1 Bradycardia, unspecified; I69.351 Hemiplegia and hemiparesis following cerebral infarction affecting right dominant side; J44.9 Chronic obstructive pulmonary disease, unspecified; E86.0 Dehydration; I48.0 Paroxysmal atrial fibrillation; Z79.01 Long term (current) use of anticoagulants; E11.65 Type 2 diabetes mellitus with hyperglycemia; I10 Essential (primary) hypertension; B19.20 Unspecified viral hepatitis C without hepatic coma; F31.30 Bipolar disorder, current episode depressed, mild or moderate severity, unspecified; Z79.4 Long term (current) use of insulin; E78.5 Hyperlipidemia, unspecified; E83.42 Hypomagnesemia; F17.210 Nicotine dependence, cigarettes, uncomplicated; F43.10 Post-traumatic stress disorder, unspecified; Z53.9 Procedure and treatment not carried out, unspecified reason; Z91.119 Patient's noncompliance with dietary regimen due to unspecified reason; Z91.148 Patient's other noncompliance with medication regimen for other reason; Z98.1 Arthrodesis status; E86.1 Hypovolemia; E87.1 Hypo-osmolality and hyponatremia; I49.3 Ventricular premature depolarization; J90 Pleural effusion, not elsewhere classified; J96.01 Acute respiratory failure with hypoxia; I87.8 Other specified disorders of veins; J98.19 Other pulmonary collapse; E66.9 Obesity, unspecified; J43.9 Emphysema, unspecified; I95.9 Hypotension, unspecified; E87.0 Hyperosmolality and hypernatremia; I08.3 Combined rheumatic disorders of mitral, aortic and tricuspid valves; Z68.32 Body mass index [BMI] 32.0-32.9, adult; T17.890A Other foreign object in other parts of respiratory tract causing asphyxiation, initial encounter; J98.09 Other diseases of bronchus, not elsewhere classified; Z88.5 Allergy status to narcotic agent; Z71.6 Tobacco abuse counseling; Z79.899 Other long term (current) drug therapy; Z98.51 Tubal ligation status
CPT/HCPCS: 31624; 31645; 36410; 36415; 64999; 71045; 71046; 71250; 76937; 80048; 80053; 81003; 82009; 83036; 83735; 83880; 84132; 84145; 85025; 85027; 86850; 86900; 86901; 87070; 87102; 87116; 87205; 87206; 87496; 87498; 87502; 87529; 87634; 87635; 87636; 87798; 88305; 88309; 88331; 93005; 93306; 94640; 94660; 94664; 94667; 94760; 96361; 96365; 99285

== ENCOUNTER 2023-03-29 11:20 | Inpatient (IN) | payer OTHER ==
--- NOTE | 2023-03-29 11:36 | ED ---
SOB HPI - General Chief Complaint: Shortness of Breath Stated Complaint: sob Time Seen by Provider: 03/29/23 11:23 Source: patient, EMS, RN notes reviewed Mode of arrival: EMS Limitations: no limitations - History of Present Illness Initial Comments: Patient is a 57-year-old female presenting to the ER via EMS with chief complaint shortness of breath. She reports she started having increasing shortness of breath last night. Patient usually wears 2-3L oxygen at home and has increased to 4-5L due to shortness of breath. Patient recently underwent a left upper lobe lung resection due to cancer on 03/15/[address] June. Patient states she has been having chills recently. Patient also is endorsing abdominal pain. Patient's last bowel movement was last night. Patient denies any urinary symptoms. - Related Data Home Medications Medication Instructions Recorded Confirmed Atorvastatin [Lipitor] 10 mg PO DAILY 02/12/22 03/11/23 Furosemide [Lasix] 20 mg PO DAILY 02/12/22 03/11/23 Gabapentin 800 mg PO TID 05/22/22 03/11/23 Fluticasone/Umeclidin/Vilanter 1 puff INHALATION RT-DAILY 03/09/23 03/11/23 [Trelegy Ellipta 100-62.5-25] LORazepam [Ativan] 0.5 mg PO BID PRN 03/09/23 03/11/23 Previous Rx's Medication Instructions Recorded Losartan Potassium [Cozaar] 50 mg PO DAILY 30 Days #60 tab 05/27/22 Amiodarone [Cordarone] 400 mg PO BID #120 tab 03/27/23 Amoxic-Pot Clav 875-125Mg 1 tab PO BID 30 Days #60 tab 03/27/23 [Augmentin 875-125] Docusate [Colace] 100 mg PO DAILY PRN 7 Days #20 cap 03/27/23 Folic Acid 1 mg PO DAILY #30 tab 03/27/23 HYDROcodone/APAP 5-325MG [[place] 1 each PO Q6HR PRN 15 Days #60 tab 03/27/23 5-325] INSULIN ASPART (NovoLOG) [NovoLOG 0 unit SQ [id number] #8 gm 03/27/23 (formulary)] INSULIN ASPART (NovoLOG) [NovoLOG 12 unit SQ AC-TID #8 gm 03/27/23 (formulary)] Magnesium Oxide [Mag-Ox] 400 mg PO BID 5 Days #10 tab 03/27/23 Nicotine 7Mg/24Hr Patch [Habitrol] 1 patch TRANSDERM DAILY #7 patch 03/27/23 Pantoprazole [Protonix] 40 mg PO DAILY #30 tab 03/27/23 Thiamine [Vitamin B-1] 100 mg PO DAILY #30 tab 03/27/23 Allergies Allergy/AdvReac Type Severity Reaction Status Date / Time hydromorphone HCl Allergy Unknown Rash/Hives/ Verified 03/29/23 11:32 [From Dilaudid] Itchy Review of Systems ROS Statement: Those systems with pertinent positive or pertinent negative responses have been documented in the HPI. ROS Other: All systems not noted in ROS Statement are negative. Past Medical History Past Medical History: Cancer, COPD, CVA/TIA, Diabetes Mellitus, Hyperlipidemia, Hypertension, Liver Disease, Skin Disorder, Vascular Disorder Additional Past Medical History / Comment(s): HX past alcoholism and heroin abuse, "DX hepatitis b and c", stroke in 04/2015 with right sided weakness, recent dx. lung cancer, rash lower legs, circulation issues lower legs-causes leg pain, left upper lobectomy (feb 2023) History of Any Multi-Drug Resistant Organisms: None Reported Past Surgical History: Cholecystectomy, Orthopedic Surgery, Tonsillectomy, Tubal Ligation Additional Past Surgical History / Comment(s): esophageal surgery as a baby, cervix biopsy. Left ankle fusion, right ankle, recent bronchoscopy, left upper lobectomy (feb 2023) Past Anesthesia/Blood Transfusion Reactions: Motion Sickness, Postoperative Nausea & Vomiting (PONV) Additional Past Anesthesia/Blood Transfusion Reaction / Comment(s): no reaction to blood Past Psychological History: Bipolar, Depression, PTSD Smoking Status: Current every day smoker Past Alcohol Use History: None Reported Past Drug Use History: None Reported - Past Family History Mother Additional Family Medical History / Comment(s): "chorea bill disease" Father Family Medical History: Liver Disease Additional Family Medical History / Comment(s): alcoholic General Exam Limitations: no limitations General appearance: alert, in no apparent distress Head exam: Present: atraumatic, normocephalic, normal inspection Neck exam: Present: normal inspection. Absent: tenderness, meningismus, lymphadenopathy Respiratory exam: Present: rhonchi, decreased breath sounds. Absent: respiratory distress, wheezes, rales, stridor Cardiovascular Exam: Present: irregular rhythm, normal heart sounds GI/Abdominal exam: Present: soft, distended (mild), tenderness (generalized), normal bowel sounds Extremities exam: Present: other (1+ pretibial pitting edema) Back exam: Present: other (surgical incisions with surrounding erythema no drainage) Neurological exam: Present: alert, oriented X3, CN II-XII intact Psychiatric exam: Present: normal affect, normal mood Skin exam: Present: other (Multiple surgical incisions noted on left lateral ) Course Vital Signs 03/29/23 03/29/23 11:23 11:35 Temperature 98.1 F Pulse Rate 119 H Respiratory 22 Rate Blood Pressure 141/109 126/98 O2 Sat by Pulse 98 Oximetry Disposition Referrals: Zabrina Pardo MD [Primary Care Provider] - 1-2 days
[2023-03-29 11:38] LABS: Glucose,Whole Blood 257 mg/dL (70-110)
--- NOTE | 2023-03-29 11:44 | ED ---
General Adult HPI - General Chief complaint: Shortness of Breath Stated complaint: sob Time Seen by Provider: 03/29/23 11:23 Source: patient, EMS, RN notes reviewed Mode of arrival: EMS Limitations: no limitations - History of Present Illness Initial comments: Patient is a pleasant 57-year-old female presenting to the emergency department with difficulty breathing. Onset of symptoms was progressive over the past day or 2. Patient states she was just discharged from the hospital 2 days ago. No cough. No fever. Patient does have history of COPD. Patient does have recent new neck to be secondary to history of lung cancer. Patient does have some leg edema however feel this is chronic for her. - Related Data Home Medications Medication Instructions Recorded Confirmed Atorvastatin [Lipitor] 10 mg PO DAILY 02/12/22 03/29/23 Furosemide [Lasix] 20 mg PO DAILY 02/12/22 03/29/23 Fluticasone/Umeclidin/Vilanter 1 puff INHALATION RT-DAILY 03/09/23 03/29/23 [Trelegy Ellipta 100-62.5-25] LORazepam [Ativan] 0.5 mg PO BID PRN 03/09/23 03/29/23 Dulaglutide [Trulicity] 1.5 mg SQ MO 03/29/23 03/29/23 Gabapentin 800 mg PO TID 03/29/23 03/29/23 HYDROcodone/APAP 5-325MG [[place] 1 tab PO Q6HR PRN 03/29/23 03/29/23 5-325] INSULIN ASPART (NovoLOG) [NovoLOG 12 unit SQ DIRECTED 03/29/23 03/29/23 (formulary)] INSULIN ASPART (NovoLOG) [NovoLOG See Protocol SQ DIRECTED 03/29/23 03/29/23 (formulary)] Insulin Glargine,Hum.rec.anlog 15 units SQ DAILY 03/29/23 03/29/23 [Lantus Solostar Pen] Pioglitazone [Actos] 15 mg PO DAILY 03/29/23 03/29/23 Previous Rx's Medication Instructions Recorded Amiodarone [Cordarone] 400 mg PO BID #120 tab 03/27/23 Amoxic-Pot Clav 875-125Mg 1 tab PO BID 30 Days #60 tab 03/27/23 [Augmentin 875-125] Docusate [Colace] 100 mg PO DAILY PRN 7 Days #20 cap 03/27/23 Folic Acid 1 mg PO DAILY #30 tab 03/27/23 Magnesium Oxide [Mag-Ox] 400 mg PO BID 5 Days #10 tab 03/27/23 Nicotine 7Mg/24Hr Patch [Habitrol] 1 patch TRANSDERM DAILY #7 patch 03/27/23 Pantoprazole [Protonix] 40 mg PO DAILY #30 tab 03/27/23 Thiamine [Vitamin B-1] 100 mg PO DAILY #30 tab 03/27/23 Allergies Allergy/AdvReac Type Severity Reaction Status Date / Time hydromorphone HCl Allergy Unknown Rash/Hives/ Verified 03/29/23 12:18 [From Dilaudid] Itchy Review of Systems ROS Statement: Those systems with pertinent positive or pertinent negative responses have been documented in the HPI. ROS Other: All systems not noted in ROS Statement are negative. Constitutional: Denies: fever Eyes: Denies: eye pain ENT: Denies: ear pain Respiratory: Reports: as per HPI, dyspnea Cardiovascular: Denies: chest pain, palpitations Endocrine: Denies: fatigue Gastrointestinal: Denies: abdominal pain Genitourinary: Denies: dysuria Musculoskeletal: Denies: back pain Skin: Denies: rash Neurological: Denies: weakness Past Medical History Past Medical History: Cancer, COPD, CVA/TIA, Diabetes Mellitus, Hyperlipidemia, Hypertension, Liver Disease, Skin Disorder, Vascular Disorder Additional Past Medical History / Comment(s): HX past alcoholism and heroin abuse, "DX hepatitis b and c", stroke in 04/2015 with right sided weakness, recent dx. lung cancer, rash lower legs, circulation issues lower legs-causes leg pain, left upper lobectomy (feb 2023) History of Any Multi-Drug Resistant Organisms: None Reported Past Surgical History: Cholecystectomy, Orthopedic Surgery, Tonsillectomy, Tubal Ligation Additional Past Surgical History / Comment(s): esophageal surgery as a baby, cervix biopsy. Left ankle fusion, right ankle, recent bronchoscopy, left upper lobectomy (feb 2023) Past Anesthesia/Blood Transfusion Reactions: Motion Sickness, Postoperative Nausea & Vomiting (PONV) Additional Past Anesthesia/Blood Transfusion Reaction / Comment(s): no reaction to blood Past Psychological History: Bipolar, Depression, PTSD Smoking Status: Current every day smoker Past Alcohol Use History: None Reported Past Drug Use History: None Reported - Past Family History Mother Additional Family Medical History / Comment(s): "chorea bill disease" Father Family Medical History: Liver Disease Additional Family Medical History / Comment(s): alcoholic General Exam Limitations: no limitations General appearance: alert, in no apparent distress Head exam: Present: normocephalic Eye exam: Present: normal appearance Neck exam: Present: normal inspection Respiratory exam: Present: wheezes, decreased breath sounds Cardiovascular Exam: Present: tachycardia, irregular rhythm GI/Abdominal exam: Present: soft. Absent: tenderness Extremities exam: Present: pedal edema. Absent: calf tenderness Neurological exam: Present: alert Psychiatric exam: Present: normal affect, normal mood Skin exam: Present: normal color Course Vital Signs 03/29/23 03/29/23 03/29/23 11:23 11:35 11:48 Temperature 98.1 F Pulse Rate 119 H Respiratory 22 22 Rate Blood Pressure 141/109 126/98 O2 Sat by Pulse 98 Oximetry 03/29/23 12:30 Temperature Pulse Rate 110 H Respiratory 23 Rate Blood Pressure 116/85 O2 Sat by Pulse 99 Oximetry EKG Findings - EKG Results: EKG: interpreted by ERMD (Left axis. Septal Q waves.), normal ST/T EKG shows: tachycardia, atrial fibrillation Medical Decision Making - Medical Decision Making Was pt. sent in by a medical professional or institution (ROMEL Herrera, PROJECT CONTROLLER, urgent care, hospital, or alf...) When possible be specific @ -No Did you speak to anyone other than the patient for history (EMS, parent, family, police, friend...)? What history was obtained from this source @ -No Did you review nursing and triage notes (agree or disagree)? Why? @ -I reviewed and agree with nursing and triage notes Were old charts reviewed (outside hosp., previous admission, EMS record, old EKG, old radiological studies, urgent care reports/EKG's, alf records)? Report findings @ -Previous x-ray and discharge summary review Differential Diagnosis (chest pain, altered mental status, abdominal pain women, abdominal pain men, vaginal bleeding, weakness, fever, dyspnea, syncope, headache, dizziness, GI bleed, back pain, seizure, CVA, palpatations, mental health, musculoskeletal)? @ -Differential Dyspnea: Coronary syndrome, arrhythmia, tamponade, asthma, COPD, pulmonary embolism, pneumonia, pneumothorax, pulmonary effusion, anaphylaxis, diabetic ketoacidosis, flailed chest, pulmonary contusion, diaphragmatic rupture, anemia, neuromuscular, this is not meant to be an all-inclusive list. EKG interpreted by me (3pts min.). @ -As above X-rays interpreted by me (1pt min.). @ -Chest x-ray shows opacification left lung CT interpreted by me (1pt min.). @ -None done U/S interpreted by me (1pt. min.). @ -None done What testing was considered but not performed or refused? (CT, X-rays, U/S, labs)? Why? @ -None What meds were considered but not given or refused? Why? @ -None Did you discuss the management of the patient with other professionals (professionals i.e. , PA, PROJECT CONTROLLER, lab, RT, psych nurse, social media project manager, mirror fabrication supervisor, teacher, production officer, outpatient case manager)? Give summary @ -Case was discussed with Dr. Lucia who is familiar with this patient and will consult. Case also discussed with Dr. Mendoza, who will admit covering Dr. Davila. Was smoking cessation discussed for >3mins.? @ -No Was critical care preformed (if so, how long)? @ -No Were there social determinants of health that impacted care today? How? (Homeles sness, low income, unemployed, alcoholism, drug addiction, transportation, low edu. Level, literacy, decrease access to med. care, residential, rehab)? @ -No Was there de-escalation of care discussed even if they declined (Discuss DNR or withdrawal of care, Hospice)? DNR status @ -No What co-morbidities impacted this encounter? (DM, HTN, Smoking, COPD, CAD, Cancer, CVA, ARF, Chemo, Hep., AIDS, mental health diagnosis, sleep apnea, morbid obesity)? @ -None Was patient admitted / discharged? Hospital course, mention meds given and route, prescriptions, significant lab abnormalities, going to OR and other pertinent info. @ -Patient reevaluated without much change. Patient will be admitted with consults with pulmonary and cardiothoracic. Admission orders written. Patient updated Undiagnosed new problem with uncertain prognosis? @ -No Drug Therapy requiring intensive monitoring for toxicity (Heparin, Nitro, Insulin, Cardizem)? @ -No Were any procedures done? @ -No Diagnosis/symptom? @ -Dyspnea Acute, or Chronic, or Acute on Chronic? @ -Acute Uncomplicated (without systemic symptoms) or Complicated (systemic symptoms)? @ -default Side effects of treatment? @ -No Exacerbation, Progression, or Severe Exacerbation? @ -No Poses a threat to life or bodily function? How? (Chest pain, [place], [place], pneumonia, PE, COPD, DKA, ARF, appy, cholecystitis, CVA, Diverticulitis, Homicidal, Suicidal, threat to staff... and all critical care pts) @ -No - Lab Data Result diagrams: 03/29/23 11:39 03/29/23 11:39 Lab Results 03/29/23 03/29/23 03/29/23 Range/Units 11:36 11:39 11:39 WBC 7.7 (3.8-10.6) k/uL RBC 3.84 (3.80-5.40) m/uL Hgb 11.9 (11.4-16.0) gm/dL Hct 36.7 (34.0-46.0) % MCV 95.7 (80.0-100.0) fL MCH 31.1 (25.0-35.0) pg MCHC 32.4 (31.0-37.0) g/dL RDW 13.4 (11.5-15.5) % Plt Count 186 (150-450) k/uL MPV 7.8 Neutrophils % 79 % Lymphocytes % 14 % Monocytes % 4 % Eosinophils % 1 % Basophils % 0 % Neutrophils # 6.1 (1.3-7.7) k/uL Lymphocytes # 1.1 (1.0-4.8) k/uL Monocytes # 0.3 (0-1.0) k/uL Eosinophils # 0.1 (0-0.7) k/uL Basophils # 0.0 (0-0.2) k/uL Hypochromasia Slight Poikilocytosis Slight PT 11.4 (10.0-12.5) sec INR 1.1 (<1.2) APTT 23.7 (22.0-30.0) sec Sample Site ABG pH (7.35-7.45) ABG pCO2 (35-45) mmHg ABG pO2 (83-108) mmHg ABG HCO3 (21-25) mmol/L ABG Total CO2 (19-24) mmol/L ABG O2 Saturation (94-97) % ABG Base Excess mmol/L Skyler Test FiO2 % Sodium (137-145) mmol/L Potassium (3.5-5.1) mmol/L Chloride (98-107) mmol/L Carbon Dioxide (22-30) mmol/L Anion Gap mmol/L BUN (7-17) mg/dL Creatinine (0.52-1.04) mg/dL Est GFR (CKD-EPI)AfAm (>60 ml/min/1.73 sqM) Est GFR (CKD-EPI)NonAf (>60 ml/min/1.73 sqM) Glucose (74-99) mg/dL POC Glucose (mg/dL) 257 H (70-110) mg/dL POC Glu [employer] ID Bernie Gutierrez Plasma Lactic Acid Jean (0.7-2.0) mmol/L Calcium (8.4-10.2) mg/dL Magnesium (1.6-2.3) mg/dL Total Bilirubin (0.2-1.3) mg/dL AST (14-36) U/L ALT (4-34) U/L Alkaline Phosphatase (38-126) U/L Troponin I (0.000-0.034) ng/mL NT-Pro-B Natriuret Pep pg/mL Total Protein (6.3-8.2) g/dL Albumin (3.5-5.0) g/dL Influenza Type A (PCR) (Not Detectd) Influenza Type B (PCR) (Not Detectd) RSV (PCR) (Not Detectd) SARS-CoV-2 (PCR) (Not Detectd) 03/29/23 03/29/23 03/29/23 Range/Units 11:39 11:39 11:39 WBC (3.8-10.6) k/uL RBC (3.80-5.40) m/uL Hgb (11.4-16.0) gm/dL Hct (34.0-46.0) % MCV (80.0-100.0) fL MCH (25.0-35.0) pg MCHC (31.0-37.0) g/dL RDW (11.5-15.5) % Plt Count (150-450) k/uL MPV Neutrophils % % Lymphocytes % % Monocytes % % Eosinophils % % Basophils % % Neutrophils # (1.3-7.7) k/uL Lymphocytes # (1.0-4.8) k/uL Monocytes # (0-1.0) k/uL Eosinophils # (0-0.7) k/uL Basophils # (0-0.2) k/uL Hypochromasia Poikilocytosis PT (10.0-12.5) sec INR (<1.2) APTT (22.0-30.0) sec Sample Site ABG pH (7.35-7.45) ABG pCO2 (35-45) mmHg ABG pO2 (83-108) mmHg ABG HCO3 (21-25) mmol/L ABG Total CO2 (19-24) mmol/L ABG O2 Saturation (94-97) % ABG Base Excess mmol/L Skyler Test FiO2 % Sodium 136 L (137-145) mmol/L Potassium 4.5 (3.5-5.1) mmol/L Chloride 99 (98-107) mmol/L Carbon Dioxide 30 (22-30) mmol/L Anion Gap 7 mmol/L BUN 12 (7-17) mg/dL Creatinine 0.47 L (0.52-1.04) mg/dL Est GFR (CKD-EPI)AfAm >90 (>60 ml/min/1.73 sqM) Est GFR (CKD-EPI)NonAf >90 (>60 ml/min/1.73 sqM) Glucose 237 H (74-99) mg/dL POC Glucose (mg/dL) (70-110) mg/dL POC Glu Supervisor [employer] ID Plasma Lactic Acid Jean 1.7 (0.7-2.0) mmol/L Calcium 7.9 L (8.4-10.2) mg/dL Magnesium 1.6 (1.6-2.3) mg/dL Total Bilirubin 0.7 (0.2-1.3) mg/dL AST 48 H (14-36) U/L ALT 30 (4-34) U/L Alkaline Phosphatase 103 (38-126) U/L Troponin I <0.012 (0.000-0.034) ng/mL NT-Pro-B Natriuret Pep 3090 pg/mL Total Protein 6.5 (6.3-8.2) g/dL Albumin 2.9 L (3.5-5.0) g/dL Influenza Type A (PCR) (Not Detectd) Influenza Type B (PCR) (Not Detectd) RSV (PCR) (Not Detectd) SARS-CoV-2 (PCR) (Not Detectd) 03/29/23 03/29/23 Range/Units 11:39 12:02 WBC (3.8-10.6) k/uL RBC (3.80-5.40) m/uL Hgb (11.4-16.0) gm/dL Hct (34.0-46.0) % MCV (80.0-100.0) fL MCH (25.0-35.0) pg MCHC (31.0-37.0) g/dL RDW (11.5-15.5) % Plt Count (150-450) k/uL MPV Neutrophils % % Lymphocytes % % Monocytes % % Eosinophils % % Basophils % % Neutrophils # (1.3-7.7) k/uL Lymphocytes # (1.0-4.8) k/uL Monocytes # (0-1.0) k/uL Eosinophils # (0-0.7) k/uL Basophils # (0-0.2) k/uL Hypochromasia Poikilocytosis PT (10.0-12.5) sec INR (<1.2) APTT (22.0-30.0) sec Sample Site LBRAC ABG pH 7.41 (7.35-7.45) ABG pCO2 49 H (35-45) mmHg ABG pO2 105 (83-108) mmHg ABG HCO3 31 H (21-25) mmol/L ABG Total CO2 33 H (19-24) mmol/L ABG O2 Saturation 98.5 H (94-97) % ABG Base Excess 6.6 mmol/L Skyler Test Yes FiO2 36 % Sodium (137-145) mmol/L Potassium (3.5-5.1) mmol/L Chloride (98-107) mmol/L Carbon Dioxide (22-30) mmol/L Anion Gap mmol/L BUN (7-17) mg/dL Creatinine (0.52-1.04) mg/dL Est GFR (CKD-EPI)AfAm (>60 ml/min/1.73 sqM) Est GFR (CKD-EPI)NonAf (>60 ml/min/1.73 sqM) Glucose (74-99) mg/dL POC Glucose (mg/dL) (70-110) mg/dL POC Glu Supervisor [employer] ID Plasma Lactic Acid Jean (0.7-2.0) mmol/L Calcium (8.4-10.2) mg/dL Magnesium (1.6-2.3) mg/dL Total Bilirubin (0.2-1.3) mg/dL AST (14-36) U/L ALT (4-34) U/L Alkaline Phosphatase (38-126) U/L Troponin I (0.000-0.034) ng/mL NT-Pro-B Natriuret Pep pg/mL Total Protein (6.3-8.2) g/dL Albumin (3.5-5.0) g/dL Influenza Type A (PCR) Not Detected (Not Detectd) Influenza Type B (PCR) Not Detected (Not Detectd) RSV (PCR) Not Detected (Not Detectd) SARS-CoV-2 (PCR) Not Detected (Not Detectd) Disposition Clinical Impression: Lung cancer, Dyspnea Disposition: ADMITTED IP TO THIS HOSP Is patient prescribed a controlled substance at d/c from ED?: No Referrals: Zabrina Pardo MD [Primary Care Provider] - 1-2 days Time of Disposition: 13:34
--- NOTE | 2023-03-29 12:04 | XR ---
EXAMINATION TYPE: XR chest 2V DATE OF EXAM: 03/29/2023 11:52 AM CLINICAL INDICATION:Female, 57 years old with history of difficulty breathing; [facility] COMPARISON: Chest radiograph from one day prior. TECHNIQUE: XR chest 2V Frontal and lateral views of the chest. FINDINGS: Lungs/Pleura: Complete opacification of the left lung. There is no evidence for focal consolidation o r pneumothorax. Similar small right pleural effusion. Pulmonary vascularity: Unremarkable. Heart/mediastinum: Cardiomediastinal silhouette is partially obscured due to overlying and adjacent o pacities. Musculoskeletal: No acute osseous pathology. IMPRESSION: 1. Similar opacification of the left lung likely secondary to atelectasis and large pleural effusion . No pneumothorax visualized. 2. Small right effusion
[2023-03-29 12:07] LABS: ABG Base Excess 6.6 mmol/L; ABG HCO3 31 mmol/L (21-25); ABG Oxygen Saturation 98.5 % (94-97); ABG PCO2 49 mmHg (35-45); ABG PH 7.41 (7.35-7.45); ABG PO2 105 mmHg (83-108); ABG TCO2 33 mmol/L (19-24); Allen Test Performed? Yes
[2023-03-29 12:25] LABS: Basophils % (A) 0 %; Eosinophils # (A) 0.1 k/uL (0-0.7); Eosinophils % (A) 1 %; HCT 36.7 % (34.0-46.0); HGB 11.9 gm/dL (11.4-16.0); Hypochromasia Slight; Lymphocytes # (A) 1.1 k/uL (1.0-4.8); Lymphocytes % (A) 14 %; MCH 31.1 pg (25.0-35.0); MCHC 32.4 g/dL (31.0-37.0); MCV 95.7 fL (80.0-100.0); Mean Platelet Volume 7.8; Monocytes # (A) 0.3 k/uL (0-1.0); Monocytes % (A) 4 %; Neutrophils # (A) 6.1 k/uL (1.3-7.7); Neutrophils % (A) 79 %; Platelet Count 186 k/uL (150-450); Poikilocytosis Slight; RBC 3.84 m/uL (3.80-5.40); RDW 13.4 % (11.5-15.5); WBC 7.7 k/uL (3.8-10.6)
[2023-03-29] MEDS ORDERED: FAMOTIDINE 20 MG/2 ML VIAL IV STA (12:27)
[2023-03-29 12:30] LABS: ALT 30 U/L (4-34); AST 48 U/L (14-36); African American GFR (CKD) >90 (>60 ml/min/1.73 sqM); Albumin 2.9 g/dL (3.5-5.0); Alkaline Phosphatase 103 U/L (38-126); Anion Gap 7 mmol/L; Blood Urea Nitrogen 12 mg/dL (7-17); Calcium 7.9 mg/dL (8.4-10.2); Carbon Dioxide 30 mmol/L (22-30); Chloride 99 mmol/L (98-107); Glucose 237 mg/dL (74-99); Magnesium 1.6 mg/dL (1.6-2.3); Non-African American GFR(CKD) >90 (>60 ml/min/1.73 sqM); Sodium 136 mmol/L (137-145); Total Bilirubin 0.7 mg/dL (0.2-1.3); Total Protein 6.5 g/dL (6.3-8.2)
[2023-03-29 12:35] LABS: INR 1.1 (<1.2); Partial Thromboplastin Time 23.7 sec (22.0-30.0); Prothrombin Time 11.4 sec (10.0-12.5)
[2023-03-29 12:38] LABS: NT-Pro-B-Type Natriuretic Pept 3090 pg/mL
[2023-03-29 12:48] LABS: Potassium 4.5 mmol/L (3.5-5.1)
[2023-03-29] MEDS ORDERED: NALOXONE 0.4 MG/ML 1 ML VIAL IVP PRN (13:34)
[2023-03-29] MEDS ORDERED: DEXTROSE 50% SYRINGE 50 ML IVP PRN ×2 (14:49)
[2023-03-29] MEDS ORDERED: DOCUSATE 100 MG CAP PO PRN (14:49)
[2023-03-29] MEDS: IPRATROPIUM-ALBUTEROL 3 ML NEB INHALATION SCH ×2 (15:01→20:18)
--- NOTE | 2023-03-29 15:13 | P.CNPUL ---
History of Present Illness Consult date: 03/29/23 Reason for consult: dyspnea History of present illness: 57-year-old female patient with known history of non-small cell lung cancer who underwent a left upper lobe resection and this was complicated by persistent left lower lobe atelectasis requiring multiple bronchoscopies during cardiac hospitalizations without any success in the left lower lobe remained atelectatic. Several CAT scans were done and the patient continued to have small left-sided pleural effusion with complete atelectatic/consolidated left lower lobe. The third bronchoscopies was done yielded a positive microbial growth of Haemophilus influenza and the patient was kept on Augmentin. She was found to have severe tracheal bronchomalacia, mucus plugging, narrowing of the left lower lobe bronchus orifice which was complicated into her left lower lobe collapse. It's possible also that the left lower lobe was consolidated/infected. The patient did some progress during hospital stay, she was weaned down to 2 L of O2 nasal cannula. However, the left lung remains u nchanged. She was discharged home upon request on Augmentin. We will consider getting a completion lobectomy of the left lower lobe based on the persistent atelectasis and failure for reexpansion. However, the patient was quite weak and she was having issues with atrial fibrillation that started during her hospital stay. She was not placed on any anticoagulants. She was placed on amiodarone. She was discharged home on O2 at 2 L. She is coming back with worsening shortness of breath. She was in A. fib. Slightly tachycardic. Chest x-ray is unchanged. The white cell count remains low at 7.7 with a hemoglobin of 11.9. Blood gas on 36% FiO2 showed a pH of 7.41 with episodes of 49 and pO2 of 105. The BUN is at 12 with a creatinine of 0.4 and sodium levels of 139. ProBNP level was elevated. The viral screen was negative. Echo was done during her earlier hospitalization that showed a preserved LV function with an ejection fraction of 55%. The patient's final pathology was consistent with moderate/poorly differentiated pulmonary adenocarcinoma. The tumor size was 1.5 cm. This was located left upper lobe. The patient had 1 lymph node in the hilum that was positive. The rest of the lymph nodes involving the station 10, 6, 11, 9, 7 and 5 were all negative. As such, the patient was given a [id number] disease Review of Systems ROS Other: All systems not noted in ROS Statement are negative., The patient has generalized weakness and ongoing shortness of breath since his surgery Constitutional: Denies: fever Eyes: Denies: eye pain ENT: Denies: ear pain Respiratory: Reports: as per HPI, dyspnea Cardiovascular: Denies: chest pain, palpitations Endocrine: Denies: fatigue Gastrointestinal: Denies: abdominal pain Genitourinary: Denies: dysuria Musculoskeletal: Denies: back pain Skin: Denies: rash Neurological: Denies: weakness Past Medical History Past Medical History: Cancer, COPD, CVA/TIA, Diabetes Mellitus, Hyperlipidemia, Hypertension, Liver Disease, Skin Disorder, Vascular Disorder Additional Past Medical History / Comment(s): HX past alcoholism and heroin abuse, "DX hepatitis b and c", stroke in 04/2015 with right sided weakness, recent dx. lung cancer, rash lower legs, circulation issues lower legs-causes leg pain, left upper lobectomy (feb 2023) History of Any Multi-Drug Resistant Organisms: None Reported Past Surgical History: Cholecystectomy, Orthopedic Surgery, Tonsillectomy, Tubal Ligation Additional Past Surgical History / Comment(s): esophageal surgery as a baby, cervix biopsy. Left ankle fusion, right ankle, recent bronchoscopy, left upper lobectomy (feb 2023) Past Anesthesia/Blood Transfusion Reactions: Motion Sickness, Postoperative Nausea & Vomiting (PONV) Additional Past Anesthesia/Blood Transfusion Reaction / Comment(s): no reaction to blood Past Psychological History: Bipolar, Depression, PTSD Smoking Status: Current every day smoker Past Alcohol Use History: None Reported Past Drug Use History: None Reported - Past Family History Mother Additional Family Medical History / Comment(s): "chorea bill disease" Father Family Medical History: Liver Disease Additional Family Medical History / Comment(s): alcoholic Medications and Allergies Home Medications Medication Instructions Recorded Confirmed Type Atorvastatin [Lipitor] 10 mg PO DAILY 02/12/22 03/29/23 History Furosemide [Lasix] 20 mg PO DAILY 02/12/22 03/29/23 History Fluticasone/Umeclidin/Vilanter 1 puff INHALATION RT-DAILY 03/09/23 03/29/23 History [Trelegy Ellipta 100-62.5-25] LORazepam [Ativan] 0.5 mg PO BID PRN 03/09/23 03/29/23 History Amiodarone [Cordarone] 400 mg PO BID #120 tab 03/27/23 03/29/23 Rx Amoxic-Pot Clav 875-125Mg 1 tab PO BID 30 Days #60 tab 03/27/23 03/29/23 Rx [Augmentin 875-125] Docusate [Colace] 100 mg PO DAILY PRN 7 Days #20 cap 03/27/23 03/29/23 Rx Folic Acid 1 mg PO DAILY #30 tab 03/27/23 03/29/23 Rx Magnesium Oxide [Mag-Ox] 400 mg PO BID 5 Days #10 tab 03/27/23 03/29/23 Rx Nicotine 7Mg/24Hr Patch [Habitrol] 1 patch TRANSDERM DAILY #7 patch 03/27/23 03/29/23 Rx Pantoprazole [Protonix] 40 mg PO DAILY #30 tab 03/27/23 03/29/23 Rx Thiamine [Vitamin B-1] 100 mg PO DAILY #30 tab 03/27/23 03/29/23 Rx Dulaglutide [Trulicity] 1.5 mg SQ MO 03/29/23 03/29/23 History Gabapentin 800 mg PO TID 03/29/23 03/29/23 History HYDROcodone/APAP 5-325MG [[place] 1 tab PO Q6HR PRN 03/29/23 03/29/23 History 5-325] INSULIN ASPART (NovoLOG) [NovoLOG 12 unit SQ DIRECTED 03/29/23 03/29/23 History (formulary)] INSULIN ASPART (NovoLOG) [NovoLOG See Protocol SQ DIRECTED 03/29/23 03/29/23 History (formulary)] Insulin Glargine,Hum.rec.anlog 15 units SQ DAILY 03/29/23 03/29/23 History [Lantus Solostar Pen] Pioglitazone [Actos] 15 mg PO DAILY 03/29/23 03/29/23 History Allergies Allergy/AdvReac Type Severity Reaction Status Date / Time hydromorphone HCl Allergy Unknown Rash/Hives/ Verified 03/29/23 12:18 [From Dilaudid] Itchy Physical Exam Vitals: Vital Signs Temp Pulse Resp BP Pulse Ox 03/29/23 14:30 101 H 24 146/87 03/29/23 14:00 105 H 32 H 147/96 01/01/24 13:30 59 L 17 126/101 03/29/23 13:00 63 16 112/94 03/29/23 12:30 110 H 23 116/85 99 03/29/23 11:48 22 03/29/23 11:35 126/98 03/29/23 11:23 98.1 F 119 H 22 141/109 98 Intake and Output 03/28/23 03/29/23 03/29/23 22:59 06:59 14:59 Other: Weight 83.915 kg No acute distress, oriented 3. Currently on 2 L high flow nasal cannula., Body mass index is 30.8 Head exam was generally normal. There was no scleral icterus or corneal arcus. Mucous membranes were moist. Neck was supple and without jugular venous distension, thyromegaly, or carotid bruits. Carotids were easily palpable bilaterally. There was no adenopathy. Cardiovascular examination reveals a regular S1-S2 consistent with atrial fibrillation. Lungs reveal diminished bilateral breath sounds, left greater than right. Diminished breath on the left lung compared to the right. Surgical once is striking and intact. Abdomen soft bowel sounds are heard. No masses or tenderness. Examination of the extremities revealed easily palpable radial, femoral and pedal pulses. There was no cyanosis, clubbing or edema. Examination of the skin revealed no evidence of significant rashes, suspicious appearing nevi or other concerning lesions. Neurologically, the patient is awake and alert and the patient does not have any focal neurological deficit. Cranial nerves are essentially intact. Results - Laboratory Findings CBC and BMP: 03/29/23 11:39 03/29/23 11:39 ABG ABG pH 7.41 (7.35-7.45) 03/29/23 12:02 ABG pCO2 49 mmHg (35-45) H 03/29/23 12:02 ABG pO2 105 mmHg (83-108) 03/29/23 12:02 ABG O2 Saturation 98.5 % (94-97) H 03/29/23 12:02 PT/INR, D-dimer PT 11.4 sec (10.0-12.5) 03/29/23 11:39 INR 1.1 (<1.2) 03/29/23 11:39 Abnormal lab findings: Abnormal Labs 03/29/23 03/29/23 03/29/23 11:36 11:39 12:02 ABG pCO2 49 H ABG HCO3 31 H ABG Total CO2 33 H ABG O2 Saturation 98.5 H Sodium 136 L Creatinine 0.47 L Glucose 237 H POC Glucose (mg/dL) 257 H Calcium 7.9 L AST 48 H Albumin 2.9 L - Diagnostic Findings Chest x-ray: image reviewed Assessment and Plan Plan: Acute on chronic shortness of breath without any worsening in her hypoxemia. The patient's shortness of breath is multifactorial. Obviously she has undergone a left upper lobe resection. She has also complete atelectasis of left lower lobe and several attempts to reexpand the lung on the left has failed as the patient has significant tracheal bronchomalacia, mucus, Haemophilus influenza pneumonia and narrowing of the left lower lobe orifice as noted on several bronchoscopies. The left lung remains unchanged. The acute decompensation could be related to A. fib which is paroxysmal and the patient may have some interval worsening in her volume status. As such, the patient was hospitalized. ProBNP level is elevated. In regards to the persistent left lower lobe atelectasis, the patient may benefit from the completion left lower lobectomy which will end up being a complete pneumonectomy on the left and this can be done once the patient's more recovered and stable. This was discussed with the cardiothoracic surgeon. Pulmonary adenocarcinoma with a 1.5 cm mass in the left upper lobe. The patient is post robotic-assisted left upper lobectomy. Postop day # 13 status post robotically assisted thoracoscopic left upper lobectomy with mediastinal lymph node dissection, for early stage NSCLC. The final pathologic staging is T1b N1 M0 disease. Left lung collapse, essentially the left lower lobe secondary to mucous plugs. Bronchoscopy was done during the early hospitalization the patient was found to have mucous plugs, significant tracheal bronchomalacia, narrowing of the left lower lobe bronchial orifice. There is only a small left-sided pleural effusion and the left lung base. As such, the patient has undergone a total of 4 bronchoscopies without any success.. There is also Haemophilus influenza and the bronchial lavage, consider superinfections/pneumonia complicating the postoperative course with development of significant mucus plugging, the patient was been taken Augmentin an outpatient basis. Acute hypoxic respiratory failure currently on 4 L of oxygen nasal cannula, pulse ox 97% Small left-sided pleural effusion Tracheal bronchomalacia, severe New-onset atrial fibrillation with rapid ventricular response, started on 03/22/2023. The patient continued to have episodes of PAF and currently she is presenting with the same. No anticoagulants per surgical recommendations. Patient is seeing a rate control, with amiodarone 400 mg by mouth twice a day. History of chronic obstructive pulmonary disease. History of CVA. History of diabetes mellitus. History of hypertension. History of hyperlipidemia. History of alcohol abuse and heroin abuse. History of hepatitis B and C. Plan We'll put the patient on IV Lasix Titrate oxygen flow to maintain saturation above 90% Continue the course of Augmentin We'll discuss the case with cardiothoracic surgery
[2023-03-29] MEDS ORDERED: ALPRAZolam 0.5 MG TAB PO PRN (15:27)
[2023-03-29] MEDS: GABAPENTIN 400 MG CAP PO SCH ×2 (16:54→19:57)
[2023-03-29] MEDS: ALPRAZolam 0.5 MG TAB PO SCH ×2 (16:54→19:58)
[2023-03-29] MEDS: FUROSEMIDE 10 MG/ML 2 ML VIAL IV SCH (17:00)
[2023-03-29 17:08] LABS: Glucose,Whole Blood 219 mg/dL (70-110)
[2023-03-29] MEDS: INSULIN ASPART (NovoLOG) 100 UNIT/ML VIAL SQ SCH ×2 (17:19→23:07)
[2023-03-29] MEDS: AMIODARONE 200 MG TAB PO SCH (19:58)
[2023-03-29] MEDS: AMOXIC-POT CLAV 875-125MG 1 EACH TAB PO SCH (19:58)
[2023-03-29 21:41] LABS: Glucose,Whole Blood 192 mg/dL (70-110)
--- NOTE | 2023-03-29 23:51 | P.HPIM ---
History of Present Illness H&P Date: 03/29/23 Chief Complaint: Shortness of breath Patient is a 57-year-old female with a past medical history of hypertension, hyperlipidemia, diabetes type 2, history of CVA/TIA with right-sided weakness, recent history of lung cancer, left upper lobectomy in February 2023, bipolar/depression and currently everyday smoker presents to ER with complaints of difficulty in breathing and chest pain. Patient was recently discharged from the hospital on 03/27/2023. Does have a history of non-small cell lung cancer underwent left upper lobectomy complicated by persistent left lower lobe atelectasis requiring multiple bronchoscopies during recent hospitalization. Valve cultures from 07/22/2022 showed haemophilus influenza. Patient was discharged home on Augmentin. On admission chest x-ray showed similar opacification of the left lung likely secondary to atelectasis and large pleural effusion. No pneumothorax visualized. Small right effusion. EKG showed atrial fibrillation with rapid ventricular response with heart rate 117. Patient is currently not on any anticoagulation. Continued on amiodarone. Laboratory data showed WBC 7.7 hemoglobin 11.9 and platelets 186 ABG showed pH 7.41 pCO2 49 and pO2 105 Sodium 136 potassium 4.5 chloride 99 bicarb is 30 BUN 12 and creatinine 0.47 blood sugar 257 and lactic acid 1.7 and calcium 7.9 ESR not elevated. Troponin x 1 negative and proBNP 3090. Influenza A, B, RSV and COVID-19 PCR not detected. Lung resection on 03/15/2023 with final pathology showing moderate to poorly differentiated pulmonary adenocarcinoma. All margins negative for malignancy. 1 of 3 hilar lymph nodes positive for metastatic carcinoma. Review of Systems Constitutional: Patient denies any fever or chills . no Generalized weakness. Abdomen: Patient denied any nausea or vomiting or abd. pain Cardiovascular: Patient complains of pleuritic chest pain and short of breath no palpitations. No worsening leg swelling. Respiratory: patient cough but unable to bring out any sputum.. Positive for shortness of breath Neurologic: Patient denied any numbness or tingling or headache. Musculoskeletal: Patient denies any complaints of joint swelling or deformity. Skin: Negative Psychiatric: Negative Endocrine: No heat or cold intolerance. No recent weight gain. Genitourinary: No dysuria or hematuria. All other 14 point ROS negative except the above Past Medical History Past Medical History: Cancer, COPD, CVA/TIA, Diabetes Mellitus, Hyperlipidemia, Hypertension, Liver Disease, Skin Disorder, Vascular Disorder Additional Past Medical History / Comment(s): HX past alcoholism and heroin abuse, "DX hepatitis b and c", stroke in 04/2015 with right sided weakness, recent dx. lung cancer, rash lower legs, circulation issues lower legs-causes leg pain, left upper lobectomy (feb 2023) History of Any Multi-Drug Resistant Organisms: None Reported Past Surgical History: Cholecystectomy, Orthopedic Surgery, Tonsillectomy, Tubal Ligation Additional Past Surgical History / Comment(s): esophageal surgery as a baby, cervix biopsy. Left ankle fusion, right ankle, recent bronchoscopy, left upper lobectomy (feb 2023) Past Anesthesia/Blood Transfusion Reactions: Motion Sickness, Postoperative Nausea & Vomiting (PONV) Additional Past Anesthesia/Blood Transfusion Reaction / Comment(s): no reaction to blood Past Psychological History: Bipolar, Depression, PTSD Smoking Status: Current every day smoker Past Alcohol Use History: None Reported Past Drug Use History: None Reported - Past Family History Mother Additional Family Medical History / Comment(s): "chorea bill disease" Father Family Medical History: Liver Disease Additional Family Medical History / Comment(s): alcoholic Medications and Allergies Home Medications Medication Instructions Recorded Confirmed Type Atorvastatin [Lipitor] 10 mg PO DAILY 02/12/22 03/29/23 History Furosemide [Lasix] 20 mg PO DAILY 02/12/22 03/29/23 History Fluticasone/Umeclidin/Vilanter 1 puff INHALATION RT-DAILY 03/09/23 03/29/23 History [Trelegy Ellipta 100-62.5-25] LORazepam [Ativan] 0.5 mg PO BID PRN 03/09/23 03/29/23 History Amiodarone [Cordarone] 400 mg PO BID #120 tab 03/27/23 03/29/23 Rx Amoxic-Pot Clav 875-125Mg 1 tab PO BID 30 Days #60 tab 03/27/23 03/29/23 Rx [Augmentin 875-125] Docusate [Colace] 100 mg PO DAILY PRN 7 Days #20 cap 03/27/23 03/29/23 Rx Folic Acid 1 mg PO DAILY #30 tab 03/27/23 03/29/23 Rx Magnesium Oxide [Mag-Ox] 400 mg PO BID 5 Days #10 tab 03/27/23 03/29/23 Rx Nicotine 7Mg/24Hr Patch [Habitrol] 1 patch TRANSDERM DAILY #7 patch 03/27/23 03/29/23 Rx Pantoprazole [Protonix] 40 mg PO DAILY #30 tab 03/27/23 03/29/23 Rx Thiamine [Vitamin B-1] 100 mg PO DAILY #30 tab 03/27/23 03/29/23 Rx Dulaglutide [Trulicity] 1.5 mg SQ MO 03/29/23 03/29/23 History Gabapentin 800 mg PO TID 03/29/23 03/29/23 History HYDROcodone/APAP 5-325MG [[place] 1 tab PO Q6HR PRN 03/29/23 03/29/23 History 5-325] INSULIN ASPART (NovoLOG) [NovoLOG 12 unit SQ DIRECTED 03/29/23 03/29/23 History (formulary)] INSULIN ASPART (NovoLOG) [NovoLOG See Protocol SQ DIRECTED 03/29/23 03/29/23 History (formulary)] Insulin Glargine,Hum.rec.anlog 15 units SQ DAILY 03/29/23 03/29/23 History [Lantus Solostar Pen] Pioglitazone [Actos] 15 mg PO DAILY 03/29/23 03/29/23 History Allergies Allergy/AdvReac Type Severity Reaction Status Date / Time hydromorphone HCl Allergy Unknown Rash/Hives/ Verified 03/29/23 12:18 [From Dilaudid] Itchy Physical Exam Vitals: Vital Signs Temp Pulse Resp BP Pulse Ox 03/29/23 14:30 101 H 24 146/87 03/29/23 14:00 105 H 32 H 147/96 03/29/23 13:30 59 L 17 126/101 03/29/23 13:00 63 16 112/94 03/29/23 12:30 110 H 23 116/85 99 03/29/23 11:48 22 03/29/23 11:35 126/98 03/29/23 11:23 98.1 F 119 H 22 141/109 98 Intake and Output 03/28/23 03/29/23 03/29/23 22:59 06:59 14:59 Other: Weight 83.915 kg PHYSICAL EXAMINATION: Patient is lying in the bed, mild distress due to pain,, awake alert and oriented.. HEENT: Normocephalic. Neck is supple. Pupils reactive. Nostrils clear. Oral cavity is moist. Neck reveals no JVD, carotid bruits, or thyromegaly. CHEST EXAMINATION: Trachea is central. Symmetrical expansion. Left basilar diminished sounds. No wheezing or rhonchi. CARDIAC: Normal S1, S2 with no gallops. No murmurs ABDOMEN: Soft. Bowel sounds present. Nontender. No organomegaly. No abdominal bruits. Extremities: Lower extremity trace edema. No clubbing or cyanosis Neurologically awake, alert, oriented x3, right-sided weakness. Able to move extremities while in bed. Skin: No rash or skin lesions. Psychiatric: Coperative. Nonsuicidal, Musculoskeletal: No joint swelling or deformity. Results CBC & Chem 7: 03/29/23 11:39 03/29/23 11:39 Labs: Abnormal Lab Results - Last 24 Hours (Table) 03/29/23 03/29/23 03/29/23 Range/Units 11:36 11:39 12:02 ABG pCO2 49 H (35-45) mmHg ABG HCO3 31 H (21-25) mmol/L ABG Total CO2 33 H (19-24) mmol/L ABG O2 Saturation 98.5 H (94-97) % Sodium 136 L (137-145) mmol/L Creatinine 0.47 L (0.52-1.04) mg/dL Glucose 237 H (74-99) mg/dL POC Glucose (mg/dL) 257 H (70-110) mg/dL Calcium 7.9 L (8.4-10.2) mg/dL AST 48 H (14-36) U/L Albumin 2.9 L (3.5-5.0) g/dL Thrombosis Risk Factor Assmnt - DVT/VTE Prophylaxis DVT/VTE Prophylaxis: Pharmacologic Prophylaxis ordered Assessment and Plan Assessment: Worsening shortness of breath secondary to persistent left lower lobe atelectasis/collapse despite multiple bronchoscopies during recent admission and Pleural effusion. Haemophilus influenza pneumonia. Recent BAL culture showed haemophilus. Continue with Augmentin course as per recent admission. Paroxysmal atrial fibrillation with rapid ventricular rate. Patient has new onset A-fib on 03/21/2023. Continued on amiodarone. Not on anticoagulation Pulmonary adenocarcinoma with recent left upper lobe resection on 03/15/2023 Acute on chronic hypoxic respiratory failure requiring 4 L oxygen via nasal cannula on admission. Patient is at 2 L during recent discharge. Severe tracheal bronchomalacia COPD History of CVA with right-sided weakness Diabetes type 2 Hypertension Hyperlipidemia History of hepatitis B&C History of alcohol abuse and hide abuse Anxiety/depression and PTSD/bipolar. Currently everyday smoker GI and DVT prophylaxis Plan: Patient will be continued on telemonitoring. Continue with amiodarone. Patient is currently not on anticoagulation as per surgical recommendation. CT surgery is on board. Started on IV Lasix 20 mg every 12. Patient was given 20 mg IV Lasix x 1 in the ER. Continue with DuoNebs and Pulmicort and insulin regimen and sliding scale. Continue with pain management and follow-up closely. Pulmonary and CT surgery is on board. Prognosis is guarded. Time with Patient: Greater than 30
[2023-03-30] MEDS: HEPARIN SODIUM,PORCINE 5,000 UNIT/ML 1 ML VIAL SQ SCH ×4 (00:24→21:25)
[2023-03-30] MEDS: IPRATROPIUM-ALBUTEROL 3 ML NEB INHALATION PRN (02:32)
[2023-03-30] MEDS: FUROSEMIDE 10 MG/ML 2 ML VIAL IV SCH ×2 (06:02→17:32)
[2023-03-30 06:05] LABS: Glucose,Whole Blood 231 mg/dL (70-110)
[2023-03-30] MEDS: INSULIN ASPART (NovoLOG) 100 UNIT/ML VIAL SQ SCH ×4 (06:18→21:25)
[2023-03-30] MEDS: IPRATROPIUM-ALBUTEROL 3 ML NEB INHALATION SCH ×4 (08:09→19:57)
[2023-03-30] MEDS: ATORVASTATIN 10 MG TAB PO SCH (08:19)
[2023-03-30] MEDS: PANTOPRAZOLE 40 MG TABLET PO SCH (08:19)
[2023-03-30] MEDS: AMOXIC-POT CLAV 875-125MG 1 EACH TAB PO SCH (08:19)
[2023-03-30] MEDS: GABAPENTIN 400 MG CAP PO SCH ×3 (08:20→21:25)
[2023-03-30] MEDS: FOLIC ACID 1 MG TAB PO SCH (08:20)
[2023-03-30] MEDS: INSULIN DETEMIR (LEVEMIR) 100 UNIT/ML SYR SQ SCH (08:20)
[2023-03-30] MEDS: THIAMINE 100 MG TAB PO SCH (08:20)
[2023-03-30] MEDS: ALPRAZolam 0.5 MG TAB PO SCH ×3 (08:20→21:25)
[2023-03-30] MEDS: AMIODARONE 200 MG TAB PO SCH ×2 (08:39→21:25)
[2023-03-30 08:48] LABS: Basophils # (A) 0.06 X 10*3/uL (0.00-0.10); Basophils % (A) 0.6 %; Eosinophils # (A) 0.12 X 10*3/uL (0.04-0.35); Eosinophils % (A) 1.2 %; HCT 35.3 % (37.2-46.3); HGB 10.9 g/dL (12.0-15.0); Lymphocytes # (A) 1.79 X 10*3/uL (0.90-5.00); MCH 30.5 pg (27.0-32.0); MCHC 30.9 g/dL (32.0-37.0); MCV 98.9 FL (80.0-97.0); Mean Platelet Volume 9.7 FL (9.5-12.2); NRBC Per 100 WBC 0 X 10*3/uL (0.00-0.01); Neutrophils # (A) 7.15 X 10*3/uL (1.80-7.70); Neutrophils % (A) 71.8 %; Platelet Count 186 X 10*3/uL (140-440); RBC 3.57 X 10*6/uL (4.10-5.20); RDW 13.5 % (11.5-14.5); WBC 9.96 X 10*3/uL (4.50-10.00)
[2023-03-30] MEDS ORDERED: FUROSEMIDE 20 MG TAB PO SCH (09:00)
[2023-03-30 09:02] LABS: BUN/Creat Ratio 13.29 Ratio (12.00-20.00); Blood Urea Nitrogen 9.3 mg/dL (9.0-27.0); Calcium 8.6 mg/dL (8.7-10.3); Carbon Dioxide 32.7 mmol/L (21.6-31.8); Chloride 100 mmol/L (96-109); Glucose 221 mg/dL (70-110); Potassium 5.1 mmol/L (3.5-5.5); Sodium 141 mmol/L (135-145)
--- NOTE | 2023-03-30 10:46 | P.GSCN ---
History of Present Illness Consult date: 03/30/23 Reason for Consult: Shortness of breath, known to our service from recent lobectomy Requesting physician: Frank Willson History of present illness: This is a 57-year-old patient who follows outpatient with Dr. Pardo for primary care and Dr. Lucia for pulmonology. She has a previous medical history of moderate to poorly differentiated pulmonary adenocarcinoma with 13 hilar lymph nodes positive for metastatic carcinoma status post robotic-assisted thoracoscopic left upper lobectomy with mediastinal lymph node dissection with subsequent paroxysmal atrial fibrillation, left lower lobe atelectasis and mucous plugging with tracheobronchial malacia status post bronchoscopy 3, current tobacco dependence with recent cessation before prior admission, COPD, current daily EtOH use, hypertension, hyperlipidemia, poorly controlled diabetes, stroke in 2015 with right-sided weakness, hepatitis B and C, bipolar depression, IV heroin use with last use August 2018. Apparently she had been trying to quit smoking for quite some time. She had a screening CT in June of last year demonstrating a small mass in the left upper lobe and even smaller mass in the right lower lobe. PET scan was obtained at that time demonstrating uptake in the left upper lobe mass. There was no adenopathy on the CT scan and no evidence of metastasis on the PET scan. She was referred to Dr. Lucia and and another CAT scan was performed in November which demonstrated a persistent mass in the left upper lobe which appeared more solid and less ground-glass in appearance and had not changed much in size. The right lower lobe density was also present but appeared to be just a small area of scar. Again there was no adenopathy noted on the CT scan. She underwent bronchoscopy and transbronchial biopsies of the left upper lobe mass which were positive for well-differentiated adenocarcinoma. Endobronchial ultrasound demonstrated no adenopathy. Subsequently she was referred to Dr. June for surgical recommendations. Dr. Deloris soto had a long very detailed discussion with the patient as well as her daughter regarding treatment options. She was offered the possibility of radiation therapy versus surgery. She was also informed that lobectomy might significantly impact her breathing and leave her somewhat short of breath and possibly oxygen dependent given her pulmonary function status. The patient and her daughter asked multiple questions, and the patient elected for surgical lobectomy as her treatment choice. Her surgery was rescheduled multiple times but after obtaining cardiac clearance she was finally able to be scheduled today 03/11/2023. Unfortunately when she came in her blood sugar was found to be grea ter then 500 and surgery was canceled. She was admitted to medicine for better control of her blood sugars, and surgical lobectomy was completed 03/15/23. Her post surgery was complicated by paroxysmal atrial fibrillation, left lower lobe atelectasis and collapse with mucous plug and tracheobronchial malacia, and she had bronchoscopy completed 3 times without any success, left lung remained whit ed out on chest x-ray. Bronchoalveolar lavage completed March 23 grew Haemophilus influenza, the patient was placed on antibiotics. She did threatened to leave AGAINST MEDICAL ADVICE but was talked into staying to continue treatment. She was discharged home on March 27 on antibiotics and home oxygen, she was counseled many times regarding the need for complete smoking cessation, and she was to follow-up this , April 01 in the office with Dr. June to discuss plans for possible completion pneumonectomy. Unfortunately the patient came back to the emergency room yesterday with complaints of significant shortness of breath. EKG demonstrated atrial fibrillation with rapid response. Lab work revealed WBC 7.7, hemoglobin 11.9, INR 1.1, creatinine 0.47, lactic acid 1.7, AST 48, ALT 30, negative troponin, and BNP 3090. ABGs were drawn revealing 7.41/49/105/31/98%/6.6. She was placed in observation and home medications were ordered including her amiodarone, Augmentin, and Lasix 20 mg IV push every 12 hours. Consultation was placed to pulmonology and cardiothoracic surgery. Review of Systems Review of systems was completed and was negative except as noted - Respiratory Reports as per HPI, Reports dyspnea Past Medical History Past Medical History: Atrial Fibrillation, Cancer, COPD, CVA/TIA, Diabetes Mellitus, Hyperlipidemia, Hypertension, Liver Disease, Skin Disorder, Vascular Disorder Additional Past Medical History / Comment(s): HX past alcoholism and heroin abuse, "DX hepatitis b and c", stroke in 04/2015 with right sided weakness, recent dx. lung cancer, rash lower legs, circulation issues lower legs-causes leg pain History of Any Multi-Drug Resistant Organisms: None Reported Past Surgical History: Cholecystectomy, Orthopedic Surgery, Tonsillectomy, Tubal Ligation Additional Past Surgical History / Comment(s): esophageal surgery as a baby, cervix biopsy. Left ankle fusion, right ankle, recent bronchoscopy, left upper lobectomy (feb 2023) Past Anesthesia/Blood Transfusion Reactions: Motion Sickness, Postoperative Nausea & Vomiting (PONV) Additional Past Anesthesia/Blood Transfusion Reaction / Comm: no reaction to blood Past Psychological History: Bipolar, Depression, PTSD Smoking Status: Current every day smoker Past Alcohol Use History: None Reported Past Drug Use History: Heroin Additional Drug Use History / Comment(s): Last heroin injection 2018 - Past Family History Mother Additional Family Medical History / Comment(s): "chorea bill disease" Father Family Medical History: Liver Disease Additional Family Medical History / Comment(s): alcoholic Medications and Allergies Home Medications Medication Instructions Recorded Confirmed Type Atorvastatin [Lipitor] 10 mg PO DAILY 02/12/22 03/29/23 History Furosemide [Lasix] 20 mg PO DAILY 02/12/22 03/29/23 History Fluticasone/Umeclidin/Vilanter 1 puff INHALATION RT-DAILY 03/09/23 03/29/23 History [Trelegy Ellipta 100-62.5-25] LORazepam [Ativan] 0.5 mg PO BID PRN 03/09/23 03/29/23 History Amiodarone [Cordarone] 400 mg PO BID #120 tab 03/27/23 03/29/23 Rx Amoxic-Pot Clav 875-125Mg 1 tab PO BID 30 Days #60 tab 03/27/23 03/29/23 Rx [Augmentin 875-125] Docusate [Colace] 100 mg PO DAILY PRN 7 Days #20 cap 03/27/23 03/29/23 Rx Folic Acid 1 mg PO DAILY #30 tab 03/27/23 03/29/23 Rx Magnesium Oxide [Mag-Ox] 400 mg PO BID 5 Days #10 tab 03/27/23 03/29/23 Rx Nicotine 7Mg/24Hr Patch [Habitrol] 1 patch TRANSDERM DAILY #7 patch 03/27/23 03/29/23 Rx Pantoprazole [Protonix] 40 mg PO DAILY #30 tab 03/27/23 03/29/23 Rx Thiamine [Vitamin B-1] 100 mg PO DAILY #30 tab 03/27/23 03/29/23 Rx Dulaglutide [Trulicity] 1.5 mg SQ MO 03/29/23 03/29/23 History Gabapentin 800 mg PO TID 03/29/23 03/29/23 History HYDROcodone/APAP 5-325MG [[place] 1 tab PO Q6HR PRN 03/29/23 03/29/23 History 5-325] INSULIN ASPART (NovoLOG) [NovoLOG 12 unit SQ DIRECTED 03/29/23 03/29/23 History (formulary)] INSULIN ASPART (NovoLOG) [NovoLOG See Protocol SQ DIRECTED 03/29/23 03/29/23 History (formulary)] Insulin Glargine,Hum.rec.anlog 15 units SQ DAILY 03/29/23 03/29/23 History [Lantus Solostar Pen] Pioglitazone [Actos] 15 mg PO DAILY 03/29/23 03/29/23 History Allergies Allergy/AdvReac Type Severity Reaction Status Date / Time hydromorphone HCl Allergy Unknown Rash/Hives/ Verified 03/29/23 12:18 [From Dilaudid] [facility] - Exam Vital Signs Temp Pulse Resp BP Pulse Ox 98.1 F 119 H 22 141/109 98 03/29/23 11:23 03/29/23 11:23 03/29/23 11:23 03/29/23 11:23 03/29/23 11:23 CONSTITUTIONAL: Awake and alert, appears anxious, cooperative, no pain, no acute distress EYES: Pupils equal, round, reactive to light, normal ocular movement ENT: Moist mucous membranes without oral lesions present NECK: No masses, no bruits, trachea midline RESPIRATORY: Lungs sounds very diminished on the left. Respirations even, nonlabored. Currently on 4 L nasal cannula with oxygen saturation 99%. Strong cough CARDIOVASCULAR: S1, S2 present. Irregular rate and rhythm, atrial fibrillation on EKG. Palpable peripheral pulses bilaterally. No edema present. No calf pain or tenderness noted. No significant lower extremity varicosities noted. Left radial Skyler's test less than 8 seconds. GASTROINTESTINAL: Abdomen soft, nontender, nondistended without masses or organomegaly noted. There is no rebound or guarding present. Active bowel sounds present 4 quadrants. GENITOURINARY: Deferred INTEGUMENTARY: Skin is warm and dry with evidence of good perfusion. NEUROLOGIC: Cranial nerves II through XII intact, normal coordination, no obvious motor or sensory deficits, speech is normal MUSKULOSKELETAL: Able to move all extremities, strength equal bilaterally, normal posture PSYCHIATRIC: Alert and oriented to person place and time, flat affect, intact judgment and insight Results - Labs 03/30/23 05:35 03/30/23 05:35 Abnormal Lab Results - Last 24 Hours (Table) 03/29/23 03/29/23 03/29/23 Range/Units 11:36 11:39 12:02 RBC (4.10-5.20) X 10*6/uL Hgb (12.0-15.0) g/dL Hct (37.2-46.3) % MCV (80.0-97.0) FL MCHC (32.0-37.0) g/dL ABG pCO2 49 H (35-45) mmHg ABG HCO3 31 H (21-25) mmol/L ABG Total CO2 33 H (19-24) mmol/L ABG O2 Saturation 98.5 H (94-97) % Sodium 136 L (137-145) mmol/L Creatinine 0.47 L (0.52-1.04) mg/dL Glucose 237 H (74-99) mg/dL POC Glucose (mg/dL) 257 H (70-110) mg/dL Hemoglobin A1c (<=6.0) % Calcium 7.9 L (8.4-10.2) mg/dL AST 48 H (14-36) U/L Albumin 2.9 L (3.5-5.0) g/dL 03/29/23 03/29/23 03/30/23 Range/Units 17:07 21:39 05:35 RBC (4.10-5.20) X 10*6/uL Hgb (12.0-15.0) g/dL Hct (37.2-46.3) % MCV (80.0-97.0) FL MCHC (32.0-37.0) g/dL ABG pCO2 (35-45) mmHg ABG HCO3 (21-25) mmol/L ABG Total CO2 (19-24) mmol/L ABG O2 Saturation (94-97) % Sodium (137-145) mmol/L Creatinine (0.52-1.04) mg/dL Glucose (74-99) mg/dL POC Glucose (mg/dL) 219 H 192 H (70-110) mg/dL Hemoglobin A1c 8.8 H (<=6.0) % Calcium (8.4-10.2) mg/dL AST (14-36) U/L Albumin (3.5-5.0) g/dL 03/30/23 03/30/23 Range/Units 05:35 06:04 RBC 3.57 L (4.10-5.20) X 10*6/uL Hgb 10.9 L (12.0-15.0) g/dL Hct 35.3 L (37.2-46.3) % MCV 98.9 H (80.0-97.0) FL MCHC 30.9 L (32.0-37.0) g/dL ABG pCO2 (35-45) mmHg ABG HCO3 (21-25) mmol/L ABG Total CO2 (19-24) mmol/L ABG O2 Saturation (94-97) % Sodium (137-145) mmol/L Creatinine (0.52-1.04) mg/dL Glucose (74-99) mg/dL POC Glucose (mg/dL) 231 H (70-110) mg/dL Hemoglobin A1c (<=6.0) % Calcium (8.4-10.2) mg/dL AST (14-36) U/L Albumin (3.5-5.0) g/dL Diabetes panel 03/29/23 03/30/23 Range/Units 11:39 05:35 Sodium 136 L (137-145) mmol/L Potassium 4.5 (3.5-5.1) mmol/L Chloride 99 (98-107) mmol/L Carbon Dioxide 30 (22-30) mmol/L BUN 12 (7-17) mg/dL Creatinine 0.47 L (0.52-1.04) mg/dL Glucose 237 H (74-99) mg/dL Hemoglobin A1c 8.8 H (<=6.0) % Calcium 7.9 L (8.4-10.2) mg/dL AST 48 H (14-36) U/L ALT 30 (4-34) U/L Alkaline Phosphatase 103 (38-126) U/L Total Protein 6.5 (6.3-8.2) g/dL Albumin 2.9 L (3.5-5.0) g/dL Calcium panel 03/29/23 Range/Units 11:39 Calcium 7.9 L (8.4-10.2) mg/dL Albumin 2.9 L (3.5-5.0) g/dL Pituitary panel 03/29/23 Range/Units 11:39 Sodium 136 L (137-145) mmol/L Potassium 4.5 (3.5-5.1) mmol/L Chloride 99 (98-107) mmol/L Carbon Dioxide 30 (22-30) mmol/L BUN 12 (7-17) mg/dL Creatinine 0.47 L (0.52-1.04) mg/dL Glucose 237 H (74-99) mg/dL Calcium 7.9 L (8.4-10.2) mg/dL Adrenal panel 03/29/23 Range/Units 11:39 Sodium 136 L (137-145) mmol/L Potassium 4.5 (3.5-5.1) mmol/L Chloride 99 (98-107) mmol/L Carbon Dioxide 30 (22-30) mmol/L BUN 12 (7-17) mg/dL Creatinine 0.47 L (0.52-1.04) mg/dL Glucose 237 H (74-99) mg/dL Calcium 7.9 L (8.4-10.2) mg/dL Total Bilirubin 0.7 (0.2-1.3) mg/dL AST 48 H (14-36) U/L ALT 30 (4-34) U/L Alkaline Phosphatase 103 (38-126) U/L Total Protein 6.5 (6.3-8.2) g/dL Albumin 2.9 L (3.5-5.0) g/dL - Imaging Chest x-ray: report reviewed, image reviewed EKG: image reviewed Assessment and Plan Assessment: Moderate to poorly differentiated pulmonary adenocarcinoma with 13 hilar lymph nodes positive for metastatic carcinoma status post robotic-assisted thoracoscopic left upper lobectomy with mediastinal lymph node dissection Postoperative paroxysmal atrial fibrillation, left lower lobe atelectasis and mucous plugging with tracheobronchial malacia status post bronchoscopy 3 Insulin dependent diabetes with poor glycemic control, hyperglycemia, A1c 8.8% Hypomagnesemia Current tobacco dependence with cessation prior to previous admission Moderate COPD, preoperative FEV1 54% of predicted, DLCO 36% of predicted Current daily EtOH use Hypertension Hyperlipidemia Stroke in 2016 with right-sided weakness Hepatitis B and C Bipolar depression History of IV heroin use with last use August 2018 Left lung collapse, left lung opacification, status post bronchoscopy performed by Dr. Reynolds 03/19/23 Left lower lobe atelectasis, mucus plug occupying the left mainstem bronchus and the left lower lobe bronchus, tracheobronchomalacia, status post flexible bronchoscopy, bronchial lavage of the left lower lobe by Dr. Lucia 03/23/23 and again 03/25/2023 Plan: The patient was seen and examined sitting up in a recliner in the observation unit in no acute distress. She denies any pain at this time, shortness of breath appears better. She is currently on 4 L nasal cannula with oxygen in the high 90s. She does appear quite nervous and anxious. Heart rate remains elevated. The case was discussed in detail with Dr. Lucia last night as well as Dr. June this morning. Recommend continuing current medical management, including diuresis. Dr. June will discuss timing of completion pneumonectomy with the patient. Wean O2 as tolerated. Encourage incentive spirometry use. Increase activity as tolerated. Continue antibiotics. Medical management with the comorbidities per internal medicine, pulmonology. Thank you for this consult. We will continue to follow along and make further recommendations as appropriate. I have personally seen and examined the patient, performed the documentation and the assessment and plan as written. Number of minutes spent on the visit: 30. CAROLYN Hernandez
[2023-03-30 12:09] LABS: Glucose,Whole Blood 199 mg/dL (70-110)
--- NOTE | 2023-03-30 12:54 | P.PN ---
Subjective Progress Note Date: 03/30/23 57-year-old female patient with known history of non-small cell lung cancer who underwent a left upper lobe resection and this was complicated by persistent left lower lobe atelectasis requiring multiple bronchoscopies during cardiac hospitalizations without any success in the left lower lobe remained ate lectatic. Several CAT scans were done and the patient continued to have small left-sided pleural effusion with complete atelectatic/consolidated left lower lobe. The third bronchoscopies was done yielded a positive microbial growth of Haemophilus influenza and the patient was kept on Augmentin. She was found to have severe tracheal bronchomalacia, mucus plugging, narrowing of the left lower lobe bronchus orifice which was complicated into her left lower lobe collapse. It's possible also that the left lower lobe was consolidated/infected. The patient did some progress during hospital stay, she was weaned down to 2 L of O2 nasal cannula. However, the left lung remains unchanged. She was discharged home upon request on Augmentin. We will consider getting a completion lobectomy of the left lower lobe based on the persistent atelectasis and failure for reexpansion. However, the patient was quite weak and she was having issues with atrial fibrillation that started during her hospital stay. She was not placed on any anticoagulants. She was placed on amiodarone. She was discharged home on O2 at 2 L. She is coming back with worsening shortness of breath. She was in A. fib. Slightly tachycardic. Chest x-ray is unchanged. The white cell count remains low at 7.7 with a hemoglobin of 11.9. Blood gas on 36% FiO2 showed a pH of 7.41 with episodes of 49 and pO2 of 105. The BUN is at 12 with a creatinine of 0.4 and sodium levels of 139. ProBNP level was elevated. The viral screen was negative. Echo was done during her earlier hospitalization that showed a preserved LV function with an ejection fraction of 55%. The patient's final pathology was consistent with moderate/poorly differentiated pulmonary adenocarcinoma. The tumor size was 1.5 cm. This was located left upper lobe. The patient had 1 lymph node in the hilum that was positive. The rest of the lymph nodes involving the station 10, 6, 11, 9, 7 and 5 were all negative. As such, the patient was given a [id number] disease. The patient is seen today 03/30/2023 in follow-up on the regular medical floor. She is currently awake and alert in no acute distress. Sitting up in a chair at the bedside. She is having ongoing issues with some shortness of breath and left-sided chest discomfort. She also has complaints of anxiety. She is currently maintaining O2 saturations in the high 90s on 4 L/m per nasal cannula. She's afebrile. Hemodynamically stable. White count 9.9. Hemoglobin 10.9. Platelets 186. Sodium 141 potassium 5.1. Bicarb 33. BUN 9. Creatinine 0.7. Glucose 221. She is continued on DuoNeb inhalations, Symbicort, IV diuretics. Heparin for DVT prophylaxis. Antibiotics in the form of Augmentin. Objective - Vital Signs Vital signs: Vital Signs Temp 97.6 F 03/30/23 07:00 Pulse 112 H 03/30/23 11:48 Resp 16 03/30/23 08:34 BP 110/74 03/30/23 08:34 Pulse Ox 99 03/30/23 08:34 FiO2 Intake & Output 03/29/23 03/30/23 03/30/23 18:59 06:59 18:59 Intake Total 118 Balance 118 Weight 83.915 kg Intake: Oral 118 Other: # Voids 2 1 - Exam GENERAL EXAM: Alert, pleasant 57-year-old female, up in a chair, on 3 L nasal cannula, fairly comfortable in no apparent distress. HEAD: Normocephalic. EYES: Normal reaction of pupils, equal size. NOSE: Clear with pink turbinates. THROAT: No erythema or exudates. NECK: No masses, no JVD. CHEST: No chest wall deformity. Previous surgical incision dry and intact LUNGS: Equal air entry with scattered crackles in the left lung base. Diminished in the left lung. CVS: S1 and S2 normal with no audible murmur, regular rhythm. ABDOMEN: No hepatosplenomegaly, normal bowel sounds, no guarding or rigidity. SPINE: No scoliosis or deformity SKIN: No rashes CENTRAL NERVOUS SYSTEM: No focal deficits, tone is normal in all 4 extremities. EXTREMITIES: There is no peripheral edema. No clubbing, no cyanosis. Peripheral pulses are intact. - Labs CBC & Chem 7: 03/30/23 05:35 03/30/23 05:35 Labs: Abnormal Lab Results - Last 24 Hours (Table) 03/29/23 03/29/23 03/29/23 Range/Units 11:39 17:07 21:39 RBC (4.10-5.20) X 10*6/uL Hgb (12.0-15.0) g/dL Hct (37.2-46.3) % MCV (80.0-97.0) FL MCHC (32.0-37.0) g/dL Sodium 136 L (137-145) mmol/L Carbon Dioxide (21.6-31.8) mmol/L Creatinine 0.47 L (0.52-1.04) mg/dL Glucose 237 H (74-99) mg/dL POC Glucose (mg/dL) 219 H 192 H (70-110) mg/dL Hemoglobin A1c (<=6.0) % Calcium 7.9 L (8.4-10.2) mg/dL AST 48 H (14-36) U/L Albumin 2.9 L (3.5-5.0) g/dL 03/30/23 03/30/23 03/30/23 Range/Units 05:35 05:35 05:35 RBC 3.57 L (4.10-5.20) X 10*6/uL Hgb 10.9 L (12.0-15.0) g/dL Hct 35.3 L (37.2-46.3) % MCV 98.9 H (80.0-97.0) FL MCHC 30.9 L (32.0-37.0) g/dL Sodium (137-145) mmol/L Carbon Dioxide 32.7 H (21.6-31.8) mmol/L Creatinine (0.52-1.04) mg/dL Glucose 221 H (74-99) mg/dL POC Glucose (mg/dL) (70-110) mg/dL Hemoglobin A1c 8.8 H (<=6.0) % Calcium 8.6 L (8.4-10.2) mg/dL AST (14-36) U/L Albumin (3.5-5.0) g/dL 03/30/23 03/30/23 Range/Units 06:04 12:08 RBC (4.10-5.20) X 10*6/uL Hgb (12.0-15.0) g/dL Hct (37.2-46.3) % MCV (80.0-97.0) FL MCHC (32.0-37.0) g/dL Sodium (137-145) mmol/L Carbon Dioxide (21.6-31.8) mmol/L Creatinine (0.52-1.04) mg/dL Glucose (74-99) mg/dL POC Glucose (mg/dL) 231 H 199 H (70-110) mg/dL Hemoglobin A1c (<=6.0) % Calcium (8.4-10.2) mg/dL AST (14-36) U/L Albumin (3.5-5.0) g/dL Assessment and Plan Assessment: Acute on chronic shortness of breath without any worsening in her hypoxemia. The patient's shortness of breath is multifactorial. Obviously she has undergone a left upper lobe resection. She has also complete atelectasis of left lower lobe and several attempts to reexpand the lung on the left has failed as the patient has significant tracheal bronchomalacia, mucus, Haemophilus influ mathieu pneumonia and narrowing of the left lower lobe orifice as noted on several bronchoscopies. The left lung remains unchanged. The acute decompensation could be related to A. fib which is paroxysmal and the patient may have some interval worsening in her volume status. As such, the patient was hospitalized. ProBNP level is elevated. In regards to the persistent left lower lobe atelectasis, the patient may benefit from the completion left lower lobectomy which will end up being a complete pneumonectomy on the left and this can be done once the patient's more recovered and stable. This was discussed with the cardiothoracic surgeon. Pulmonary adenocarcinoma with a 1.5 cm mass in the left upper lobe. Postop day # 14 status post robotically assisted thoracoscopic left upper lobectomy with mediastinal lymph node dissection, for early stage NSCLC. The final pathologic staging is T1b N1 M0 disease. Left lung collapse, essentially the left lower lobe secondary to mucous plugs. Bronchoscopy was done during the earlier hospitalization the patient was found to have mucous plugs, significant tracheal bronchomalacia, narrowing of the left lower lobe bronchial orifice. There is only a small left-sided pleural effusion and the left lung base. As such, the patient has undergone a total of 4 bronchoscopies without any success. There is also Haemophilus influenza and the bronchial lavage, consider superinfections/pneumonia complicating the postoperative course with development of significant mucus plugging, the patient was been taken Augmentin an outpatient basis. Acute hypoxic respiratory failure currently on 4 L of oxygen nasal cannula, pulse ox 99% Small left-sided pleural effusion Tracheal bronchomalacia, severe New-onset atrial fibrillation with rapid ventricular response, started on 03/22/2023. The patient continued to have episodes of PAF and currently she is presenting with the same. No anticoagulants per surgical recommendations. Patient is seeing a rate control, with amiodarone 400 mg by mouth twice a day History of chronic obstructive pulmonary disease Chronic tobacco dependence History of CVA History of diabetes mellitus History of hypertension History of hyperlipidemia History of alcohol abuse and heroin abuse History of hepatitis B and C Plan: The patient was seen and evaluated Medications and labs reviewed Patient may require left-sided pneumonectomy Cardiothoracic services are following Continue bronchodilators Continue Augmentin Continue IV diuretics Heparin for DVT prophylaxis Titrate down the FiO2 as tolerated Again educated regarding importance of complete smoking cessation We will continue to follow I have personally seen and examined the patient, performed the documentation and the assessment and plan as written. Number of minutes spent on the visit: 10.
[2023-03-30] MEDS ORDERED: RX INFO: IV CONTRAST WAS GIVEN 1 EACH MISC MISCELLANE PRN (16:00)
[2023-03-30 17:11] LABS: Glucose,Whole Blood 270 mg/dL (70-110)
[2023-03-30 20:47] LABS: Glucose,Whole Blood 234 mg/dL (70-110)
[2023-03-30] MEDS: AMPICILLIN-SULBACTAM 1.5 GM in SODIUM CHLORIDE 0.9% 50 ML IVPB SCH (21:24)
--- NOTE | 2023-03-30 22:10 | CT ---
EXAMINATION TYPE: CT chest wo/w con CT DLP: 1056.2 mGycm, Automated exposure control for dose reduction was used. DATE OF EXAM: 03/30/2023 5:02 PM COMPARISON: CT chest without 03/20/2023. CLINICAL INDICATION:Female, 57 years old with history of S/P left upper lobectomy r/o bronchopleural fistul; PHH, left upper lobectomy, r/o bronchopleural fistula, SOB TECHNIQUE: Multiple axial images were obtained through the chest both with without and with IV contra st. Sagittal and coronal reformats were created for review. Contrast used:100ml mL of Isovue 300 without and with IV Contrast (None if empty) Oral contrast used: (None if empty) FINDINGS: LUNGS/ PLEURA: Status post left upper lobectomy changes. Consolidation and collapse throughout the le ft lower lobe has progressed, with essentially no residual aerated lung seen. Small to moderate size left pleural effusion is similar in overall volume, however the pneumothorax component of this has es sentially resolved. There are several punctate foci of gaseous density seen within the consolidated l eft lower lobe, these are judged more likely to represent some residual aerated bronchi than trace re maining pneumothorax. There is a moderate right pleural effusion which has increased in size, and the re are greater adjacent lung opacities consistent with atelectasis. While the right upper lobe ground glass infiltrates seen before appear essentially resolved, there is increased interstitial line thick ening throughout the lung and some fluid tracking along the fissures compared to previous; some of th e fluid has a pseudotumor-like configuration. There is no definite split pleural enhancement seen on the left or right to suggest the presence of empyema, however the sterility of the pleural fluid alber ot be guaranteed. AIRWAY: Small mucous secretions noted along the right wall of the trachea at the level of the thoraci c inlets. Trachea is otherwise patent, as are the right lung larger airways. Again there is a cut off appearance of the left mainstem bronchus with debris in its lumen, this appears slightly worse from prior and now fills the lumen closer to the nickie than before. This spot also has a somewhat nodular appearance, 8.4 mm in size. HEART: Heart is mildly enlarged. Small volume pericardial fluid is similar to prior. Moderate coronar y artery calcifications. MEDIASTINUM: Nonenlarged and borderline enlarged mediastinal nodes, especially anterior, precarinal, and subcarinal, as well as right hilar adenopathy measuring 2.5 x 1.6 cm, likely were present before but not well seen without contrast. No gross change is suspected. There is a similar mild shift of me diastinal structures to the left, in keeping with the volume loss. VASCULATURE: Atherosclerotic calcifications are present throughout the aorta and its branches. There is moderate narrowing of the origins of the great vessels from the arch, however likely not hemodyna mically significant. No aortic aneurysm or dissection. Atherosclerotic disease of the upper abdominal aorta with mild/moderate stenosis of the celiac, SMA, bilateral renal arteries. The pulmonary trunk is borderline enlarged at 2.95 cm. There are no clear-cut intraluminal filling defects to suggest pul monary emboli but evaluation of the smaller peripheral vessels is limited by the lung opacities. MUSCULOSKELETAL: Moderate degenerative disk disease of the thoracic spine redemonstrated. No clearly acute bony abnormalities. SOFT TISSUES/LYMPH NODES: Previous mild subcutaneous emphysema seen in the left chest wall has resolv ed. No new/acute finding. Mild body wall edema. LOWER NECK: No significant findings. UPPER ABDOMEN: Status post cholecystectomy redemonstrated. Slightly nodular hepatic contour can be se en with early cirrhosis. IMPRESSION: 1. Status post left upper lobectomy changes. 2. Increased consolidation and collapse of the left lower lobe, with essentially no residual aerated lung seen. 3. Small to moderate size left pleural effusion is similar in overall volume, however the pneumothor ax component of this has essentially resolved. 4. Small mucous secretions along the tracheal wall at the thoracic inlet. Trachea is otherwise paten t, as are the right lung larger airways. There is increased intraluminal debris with cut off of the l eft mainstem bronchus, now filling the lumen closer to the nickie than before. This area also has a s omewhat nodular appearance. This could relate to mucous secretions/mucous plugging with aspiration al so considered. 5. Right hilar adenopathy, likely present on the prior unenhanced study and judged to be grossly unc hanged. Small mediastinal nodes are otherwise grossly stable. 6. Moderate right pleural effusion has increased, with greater adjacent atelectasis. 7. Previous right upper lobe groundglass infiltrates have essentially resolved. There is now increas ed interstitial line thickening throughout the lung and some fluid tracking along the fissures sugges tive of edema. 8. Previous mild subcutaneous emphysema in the left chest wall has resolved. There is mild body wall edema.
[2023-03-31] MEDS: HYDROcodone/APAP 5-325MG 1 EACH TAB PO PRN ×2 (03:12→18:33)
--- NOTE | 2023-03-31 06:11 | P.PN ---
Subjective Progress Note Date: 03/30/23 Patient is a 57-year-old female with a past medical history of hypertension, hyperlipidemia, diabetes type 2, history of CVA/TIA with right-sided weakness, recent history of lung cancer, left upper lobectomy in February 2023, bipolar/depression and currently everyday smoker presents to ER with complaints of difficulty in breathing and chest pain. Patient was recently discharged from the hospital on 03/27/2023. Does have a history of non-small cell lung cancer underwent left upper lobectomy complicated by persistent left lower lobe atelectasis requiring multiple bronchoscopies during recent hospitalization. Valve cultures from 07/22/2022 showed haemophilus influenza. Patient was discharged home on Augmentin. On admission chest x-ray showed similar opacification of the left lung likely secondary to atelectasis and large pleural effusion. No pneumothorax visualized. Small right effusion. EKG showed atrial fibrillation with rapid ventricular response with heart rate 117. Patient is currently not on any anticoagulation. Continued on amiodarone. Laboratory data showed WBC 7.7 hemoglobin 11.9 and platelets 186 ABG showed pH 7.41 pCO2 49 and pO2 105 Sodium 136 potassium 4.5 chloride 99 bicarb is 30 BUN 12 and creatinine 0.47 blood sugar 257 and lactic acid 1.7 and calcium 7.9 ESR not elevated. Troponin x 1 negative and proBNP 3090. Influenza A, B, RSV and COVID-19 PCR not detected. Lung resection on 03/15/2023 with final pathology showing moderate to poorly differentiated pulmonary adenocarcinoma. All margins negative for malignancy. 1 of 3 hilar lymph nodes positive for metastatic carcinoma. 03/30/2023 Patient is seen in follow up today with pulmonary following as well as cardiology and adjustments to medications being done. Home medications reviewed and resumed. CT surgery consulted and discussing with surgery about complete lobectomy of the left. Patient continues with pleural effusions noted and has been started on IV lasix 20mg bid and will continue. Labs reviewed and within normal limits. Will follow up on repeat labs and monitor electrolytes and kidney functions closely. Patient is currently afebrile and denies worsening shortness of breath. Patient is continued on 4L and was sent home on this previously last week. Blood sugars elevated and will continue accuchecks achs and adjust medications accordingly. Review of systems: Constitutional: No reports of fatigue, fever, or chills Cardiovascular: No reports of chest pain or palpitations Respiratory: No reports of worsening shortness of breath or cough GI: No reports of nausea, vomiting, or diarrhea : No reports of dysuria or retention Neurovascular: No reports of weakness or numbness All medications have been reviewed PHYSICAL EXAMINATION: Patient is sitting up in bed,, awake alert and oriented.. obese HEENT: Normocephalic. Neck is supple. Pupils reactive. Nostrils clear. Oral cavity is moist. Neck reveals no JVD, carotid bruits, or thyromegaly. CHEST EXAMINATION: Trachea is central. Symmetrical expansion. Left basilar diminished sounds. No wheezing or rhonchi. CARDIAC: Normal S1, S2 with no gallops. No murmurs ABDOMEN: Soft. Bowel sounds present. Nontender. No organomegaly. No abdominal bruits. Extremities: Lower extremity trace edema. No clubbing or cyanosis Neurologically awake, alert, oriented x3, right-sided weakness. Able to move extremities while in bed. Skin: No rash or skin lesions. Psychiatric: Cooperative. Non-suicidal, anxious Musculoskeletal: No joint swelling or deformity. Assessment: Worsening shortness of breath secondary to persistent left lower lobe atelectasis/collapse despite multiple bronchoscopies during recent admission and Pleural effusion. Haemophilus influenza pneumonia. Recent BAL culture showed haemophilus. Continue with Augmentin course as per recent admission. Paroxysmal atrial fibrillation with rapid ventricular rate. Patient has new onset A-fib on 03/21/2023. Continued on amiodarone. Not on anticoagulation Pulmonary adenocarcinoma with recent left upper lobe resection on 03/15/2023 Acute on chronic hypoxic respiratory failure requiring 4 L oxygen via nasal cannula on admission. Patient was at 2 L during recent discharge. Severe tracheal bronchomalacia COPD History of CVA with right-sided weakness Diabetes type 2 Hypertension Hyperlipidemia History of hepatitis B&C History of alcohol abuse and hides abuse Anxiety/depression and PTSD/bipolar. Currently everyday smoker, reports to quitting on last admission obesity with a bmi of 30.8 GI and DVT prophylaxis Plan: Patient will be continued on telemonitoring. Continue with amiodarone. Patient is currently not on anticoagulation as per surgical recommendation. CT surgery is on board and discussing about lobectomy. Chest ultrasound ordered. Continued on IV Lasix 20 mg every 12. Will follow up on repeat labs and monitor electrolytes closely. chest xray ordered for am. Continue with DuoNebs and Pulmicort and insulin regimen and sliding scale. needs tight glycemic control Continue with pain management and encouraged increased activity as tolerated Due to multiple complex medical issues, Prognosis is guarded. The impression and plan of care has been dictated by Rahel Crabtree, Nurse Practitioner as directed. Dr. Kelly MD I have performed a history and examination and MDM of this patient, discussed the same with the dictator, and agree with the dictator's assessment and plan as written ,documented as a scribe. Based on total visit time, I have performed more than 50% of the visit. Objective - Vital Signs Vital signs: Vital Signs Temp 97.6 F 03/30/23 07:00 Pulse 119 H 03/30/23 08:34 Resp 16 03/30/23 08:34 BP 110/74 03/30/23 08:34 Pulse Ox 99 03/30/23 08:34 FiO2 Intake & Output 03/29/23 03/30/23 03/30/23 18:59 06:59 18:59 Intake Total 118 Balance 118 Weight 83.915 kg Intake: Oral 118 Other: # Voids 2 1 - Labs CBC & Chem 7: 03/30/23 05:35 03/30/23 05:35 Labs: Abnormal Lab Results - Last 24 Hours (Table) 03/29/23 03/29/23 03/29/23 Range/Units 11:36 11:39 12:02 RBC (4.10-5.20) X 10*6/uL Hgb (12.0-15.0) g/dL Hct (37.2-46.3) % MCV (80.0-97.0) FL MCHC (32.0-37.0) g/dL ABG pCO2 49 H (35-45) mmHg ABG HCO3 31 H (21-25) mmol/L ABG Total CO2 33 H (19-24) mmol/L ABG O2 Saturation 98.5 H (94-97) % Sodium 136 L (137-145) mmol/L Carbon Dioxide (21.6-31.8) mmol/L Creatinine 0.47 L (0.52-1.04) mg/dL Glucose 237 H (74-99) mg/dL POC Glucose (mg/dL) 257 H (70-110) mg/dL Hemoglobin A1c (<=6.0) % Calcium 7.9 L (8.4-10.2) mg/dL AST 48 H (14-36) U/L Albumin 2.9 L (3.5-5.0) g/dL 03/29/23 03/29/23 03/30/23 Range/Units 17:07 21:39 05:35 RBC (4.10-5.20) X 10*6/uL Hgb (12.0-15.0) g/dL Hct (37.2-46.3) % MCV (80.0-97.0) FL MCHC (32.0-37.0) g/dL ABG pCO2 (35-45) mmHg ABG HCO3 (21-25) mmol/L ABG Total CO2 (19-24) mmol/L ABG O2 Saturation (94-97) % Sodium (137-145) mmol/L Carbon Dioxide (21.6-31.8) mmol/L Creatinine (0.52-1.04) mg/dL Glucose (74-99) mg/dL POC Glucose (mg/dL) 219 H 192 H (70-110) mg/dL Hemoglobin A1c 8.8 H (<=6.0) % Calcium (8.4-10.2) mg/dL AST (14-36) U/L Albumin (3.5-5.0) g/dL 03/30/23 03/30/23 03/30/23 Range/Units 05:35 05:35 06:04 RBC 3.57 L (4.10-5.20) X 10*6/uL Hgb 10.9 L (12.0-15.0) g/dL Hct 35.3 L (37.2-46.3) % MCV 98.9 H (80.0-97.0) FL MCHC 30.9 L (32.0-37.0) g/dL ABG pCO2 (35-45) mmHg ABG HCO3 (21-25) mmol/L ABG Total CO2 (19-24) mmol/L ABG O2 Saturation (94-97) % Sodium (137-145) mmol/L Carbon Dioxide 32.7 H (21.6-31.8) mmol/L Creatinine (0.52-1.04) mg/dL Glucose 221 H (74-99) mg/dL POC Glucose (mg/dL) 231 H (70-110) mg/dL Hemoglobin A1c (<=6.0) % Calcium 8.6 L (8.4-10.2) mg/dL AST (14-36) U/L Albumin (3.5-5.0) g/dL
[2023-03-31] MEDS: FUROSEMIDE 10 MG/ML 2 ML VIAL IV SCH ×2 (06:14→18:27)
[2023-03-31 06:17] LABS: Glucose,Whole Blood 280 mg/dL (70-110)
[2023-03-31] MEDS: INSULIN ASPART (NovoLOG) 100 UNIT/ML VIAL SQ SCH ×4 (06:20→20:28)
[2023-03-31] MEDS: AMPICILLIN-SULBACTAM 1.5 GM in SODIUM CHLORIDE 0.9% 50 ML IVPB SCH ×3 (08:09→20:25)
[2023-03-31] MEDS: INSULIN DETEMIR (LEVEMIR) 100 UNIT/ML SYR SQ SCH ×2 (08:11→20:26)
[2023-03-31] MEDS: PANTOPRAZOLE 40 MG TABLET PO SCH (08:11)
[2023-03-31] MEDS: HEPARIN SODIUM,PORCINE 5,000 UNIT/ML 1 ML VIAL SQ SCH ×3 (08:11→20:24)
[2023-03-31] MEDS: FOLIC ACID 1 MG TAB PO SCH (08:11)
[2023-03-31] MEDS: AMIODARONE 200 MG TAB PO SCH ×2 (08:11→20:24)
[2023-03-31] MEDS: ATORVASTATIN 10 MG TAB PO SCH (08:12)
[2023-03-31] MEDS: GABAPENTIN 400 MG CAP PO SCH ×2 (08:12→15:57)
[2023-03-31] MEDS: ALPRAZolam 0.5 MG TAB PO SCH (08:12)
[2023-03-31] MEDS: THIAMINE 100 MG TAB PO SCH (08:12)
[2023-03-31] MEDS: IPRATROPIUM-ALBUTEROL 3 ML NEB INHALATION SCH ×4 (08:25→19:17)
--- NOTE | 2023-03-31 09:37 | XR ---
EXAMINATION TYPE: XR chest 1V portable DATE OF EXAM: 03/31/2023 7:07 AM CLINICAL INDICATION:Female, 57 years old with history of s/p left upper lobectomy; [facility] COMPARISON: Chest radiographs from 03/29/2023 TECHNIQUE: XR chest 1V portable Frontal view of the chest. FINDINGS: FINDINGS: Lungs/Pleura: Complete opacification of the left lung. There is no evidence for focal consolidation o r pneumothorax. Increasing right pleural effusion. Pulmonary vascularity: Unremarkable. Heart/mediastinum: Cardiomediastinal silhouette is partially obscured due to overlying and adjacent o pacities. Musculoskeletal: No acute osseous pathology. IMPRESSION: 1. Similar opacification of the left lung likely secondary to atelectasis and large pleural effusion . No pneumothorax visualized. 2. Enlarging right pleural effusion now small to moderate
[2023-03-31] MEDS: SYMBICORT 80-4.5 MCG INHALER INHALATION SCH ×2 (10:00→10:01)
--- NOTE | 2023-03-31 11:05 | P.PN ---
Subjective Progress Note Date: 03/31/23 Principal diagnosis: Shortness of breath, rapid atrial fibrillation present on admission. History of moderate to poorly differentiated pulmonary adenocarcinoma with 13 hilar lymph nodes positive for metastatic carcinoma status post robotic-assisted thoracoscopic left upper lobectomy with mediastinal lymph node dissection, postoperative paroxysmal atrial fibrillation, left lower lobe atelectasis and mucous plugging with tracheobronchial malacia status post bronchoscopy 3, ins ulin dependent diabetes with poor glycemic control, hypomagnesemia, current tobacco dependence with cessation prior to previous admission, moderate COPD, current daily EtOH use, hypertension, hyperlipidemia, stroke in 2016 with right- sided weakness, hepatitis B and C, bipolar depression, IV heroin use with last use August 2018 The patient was seen and examined sitting up in the recliner very drowsy. Denies pain or shortness of breath at this time. Per nursing patient has been going from bed to chair and commode only, not giving much effort in increasing activity. Currently on 3 LPM NC with documented oxygen saturations in the high 90s. Patient has been receiving scheduled xanax/neurontin and PRN norco which may be causing her drowsiness and poor effort. Patient was seen yesterday by Dr. Escobar who ordered CT scan. Objective - Vital Signs Vital signs: Vital Signs Temp 97.7 F 03/31/23 07:47 Pulse 61 03/31/23 07:47 Resp 18 03/31/23 07:47 BP 111/64 03/31/23 07:47 Pulse Ox 99 03/31/23 07:47 FiO2 Intake & Output 03/30/23 03/31/23 03/31/23 18:59 06:59 18:59 Intake Total 944 236 Balance 944 236 Intake: Oral 944 236 Other: Voiding Method Bedside Commode Bedside Commode Bedside Commode # Voids 4 2 - Exam CONSTITUTIONAL: Drowsy but arousable, cooperative, no pain, no acute distress RESPIRATORY: Lungs sounds very diminished on the left. Respirations even, nonlabored. Currently on 3 L nasal cannula with oxygen saturation 99%. Strong cough. Achieving 1000 mL on incentive spirometry CARDIOVASCULAR: S1, S2 present. Regular rate and rhythm. Palpable peripheral pulses bilaterally. No edema present GASTROINTESTINAL: Abdomen soft, nontender, nondistended without masses or organomegaly noted. There is no rebound or guarding present. Active bowel sounds present 4 quadrants. GENITOURINARY: Continues to void INTEGUMENTARY: Skin is warm and dry, left chest surgical incisions well approximated NEUROLOGIC: Cranial nerves II through XII intact, normal coordination, no obvious motor or sensory deficits, speech is normal MUSKULOSKELETAL: Able to move all extremities, strength equal bilaterally, normal posture PSYCHIATRIC: Arousable, oriented to person place and time, flat affect - Labs CBC & Chem 7: 03/30/23 05:35 03/30/23 05:35 Labs: Abnormal Lab Results - Last 24 Hours (Table) 03/30/23 03/30/23 03/30/23 Range/Units 12:08 17:10 20:43 POC Glucose (mg/dL) 199 H 270 H 234 H (70-110) mg/dL 03/31/23 Range/Units 06:16 POC Glucose (mg/dL) 280 H (70-110) mg/dL - Imaging and Cardiology Chest x-ray: image reviewed CT scan - chest: report reviewed, image reviewed Assessment and Plan Assessment: Moderate to poorly differentiated pulmonary adenocarcinoma with 13 hilar lymph nodes positive for metastatic carcinoma status post robotic-assisted thoracoscopic left upper lobectomy with mediastinal lymph node dissection Postoperative paroxysmal atrial fibrillation, left lower lobe atelectasis and mucous plugging with tracheobronchial malacia status post bronchoscopy 3 Insulin dependent diabetes with poor glycemic control, hyperglycemia, A1c 8.8% Hypomagnesemia Current tobacco dependence with cessation prior to previous admission Moderate COPD, preoperative FEV1 54% of predicted, DLCO 36% of predicted Current daily EtOH use Hypertension Hyperlipidemia Stroke in 2016 with right-sided weakness Hepatitis B and C Bipolar depression History of IV heroin use with last use August 2018 Left lung collapse, left lung opacification, status post bronchoscopy performed by Dr. Reynolds 03/19/23 Left lower lobe atelectasis, mucus plug occupying the left mainstem bronchus and the left lower lobe bronchus, tracheobronchomalacia, status post flexible bronchoscopy, bronchial lavage of the left lower lobe by Dr. Lucia 03/23/23 and again 03/25/2023 Plan: Recommend decreasing/discontinuing Xanax Recommend continuing current medical management, including diuresis Wean O2 as tolerated Encourage incentive spirometry use Increase activity as tolerated, shower daily Continue antibiotics Dr. June will discuss timing of completion pneumonectomy with the patient Medical management of other comorbidities per internal medicine, pulmonology
[2023-03-31 11:11] LABS: HCT 33.8 % (37.2-46.3); HGB 10.6 g/dL (12.0-15.0); MCH 30.3 pg (27.0-32.0); MCHC 31.4 g/dL (32.0-37.0); MCV 96.6 FL (80.0-97.0); Mean Platelet Volume 10.2 FL (9.5-12.2); NRBC Per 100 WBC 0 X 10*3/uL (0.00-0.01); Platelet Count 160 X 10*3/uL (140-440); RDW 13.7 % (11.5-14.5); WBC 9.25 X 10*3/uL (4.50-10.00)
[2023-03-31 11:12] LABS: Basophils # (A) 0.04 X 10*3/uL (0.00-0.10); Basophils % (A) 0.4 %; Eosinophils # (A) 0.13 X 10*3/uL (0.04-0.35); Eosinophils % (A) 1.4 %; Lymphocytes # (A) 1.98 X 10*3/uL (0.90-5.00); Lymphocytes % (A) 21.4 %; Monocytes # (A) 0.99 X 10*3/uL (0.20-1.00); Monocytes % (A) 10.7 %; Neutrophils # (A) 6.08 X 10*3/uL (1.80-7.70); Neutrophils % (A) 65.8 %
[2023-03-31 11:20] LABS: BUN/Creat Ratio 13.12 Ratio (12.00-20.00); Blood Urea Nitrogen 10.5 mg/dL (9.0-27.0); Calcium 8.3 mg/dL (8.7-10.3); Carbon Dioxide 30.2 mmol/L (21.6-31.8); Chloride 96 mmol/L (96-109); Glucose 218 mg/dL (70-110); Potassium 4.1 mmol/L (3.5-5.5); Sodium 136 mmol/L (135-145)
--- NOTE | 2023-03-31 11:54 | P.PN ---
Subjective Progress Note Date: 03/31/23 57-year-old female patient with known history of non-small cell lung cancer who underwent a left upper lobe resection and this was complicated by persistent left lower lobe atelectasis requiring multiple bronchoscopies during cardiac hospitalizations without any success in the left lower lobe remained ate lectatic. Several CAT scans were done and the patient continued to have small left-sided pleural effusion with complete atelectatic/consolidated left lower lobe. The third bronchoscopies was done yielded a positive microbial growth of Haemophilus influenza and the patient was kept on Augmentin. She was found to have severe tracheal bronchomalacia, mucus plugging, narrowing of the left lower lobe bronchus orifice which was complicated into her left lower lobe collapse. It's possible also that the left lower lobe was consolidated/infected. The patient did some progress during hospital stay, she was weaned down to 2 L of O2 nasal cannula. However, the left lung remains unchanged. She was discharged home upon request on Augmentin. We will consider getting a completion lobectomy of the left lower lobe based on the persistent atelectasis and failure for reexpansion. However, the patient was quite weak and she was having issues with atrial fibrillation that started during her hospital stay. She was not placed on any anticoagulants. She was placed on amiodarone. She was discharged home on O2 at 2 L. She is coming back with worsening shortness of breath. She was in A. fib. Slightly tachycardic. Chest x-ray is unchanged. The white cell count remains low at 7.7 with a hemoglobin of 11.9. Blood gas on 36% FiO2 showed a pH of 7.41 with episodes of 49 and pO2 of 105. The BUN is at 12 with a creatinine of 0.4 and sodium levels of 139. ProBNP level was elevated. The viral screen was negative. Echo was done during her earlier hospitalization that showed a preserved LV function with an ejection fraction of 55%. The patient's final pathology was consistent with moderate/poorly differentiated pulmonary adenocarcinoma. The tumor size was 1.5 cm. This was located left upper lobe. The patient had 1 lymph node in the hilum that was positive. The rest of the lymph nodes involving the station 10, 6, 11, 9, 7 and 5 were all negative. As such, the patient was given a [id number] disease. The patient is seen today 03/30/2023 in follow-up on the regular medical floor. She is currently awake and alert in no acute distress. Sitting up in a chair at the bedside. She is having ongoing issues with some shortness of breath and left-sided chest discomfort. She also has complaints of anxiety. She is currently maintaining O2 saturations in the high 90s on 4 L/m per nasal cannula. She's afebrile. Hemodynamically stable. White count 9.9. Hemoglobin 10.9. Platelets 186. Sodium 141 potassium 5.1. Bicarb 33. BUN 9. Creatinine 0.7. Glucose 221. She is continued on DuoNeb inhalations, Symbicort, IV diuretics. Heparin for DVT prophylaxis. Antibiotics in the form of Augmentin. The patient seen today 03/31/2023 in follow-up on the regular medical floor. She is awake and somewhat drowsy in no acute distress. Maintaining O2 saturations up to 100% on 3 L/m per nasal cannula. She's been afebrile. Hemodynamically stable. Computed tomography scan of the chest revealed increased consolidation and collapse of the left lower lobe with essentially no residual aerated lung seen. Small to moderate size left pleural effusion however pneumothorax component of this has essentially resolved. Small mucous secretions along the tracheal wall and thoracic inlet. Right hilar adenopathy likely present on prior unenhanced study and suspected unchanged. Moderate right pleural effusions. Previous right upper lobe groundglass infiltrates have resolved. Today's chest x-ray reveals similar opacification of the left lung likely secondary to atelectasis and large pleural effusion. No pneumothorax visualized. Enlarging right pleural effusion now small to moderate. White count 9.2. Hemoglobin 10.6. Platelets 160. Sodium 136. Potassium 4.1. Bicarb 30. BUN 10. Creatinine 0.8. Glucose 218. Remains on Symbicort, DuoNeb inhalations, IV diuretics. Heparin for DVT prophylaxis. Antibiotics in the form of Unasyn. Increased encouragement regarding the use of the incentive spirometer and increased activity. Objective - Vital Signs Vital signs: Vital Signs Temp 97.7 F 03/31/23 07:47 Pulse 61 03/31/23 07:47 Resp 14 03/31/23 11:07 BP 111/64 03/31/23 07:47 Pulse Ox 98 03/31/23 11:07 FiO2 Intake & Output 03/30/23 03/31/23 03/31/23 18:59 06:59 18:59 Intake Total 944 236 Balance 944 236 Intake: Oral 944 236 Other: Voiding Method Bedside Commode Bedside Commode Bedside Commode # Voids 4 2 - Exam GENERAL EXAM: Awake but somewhat drowsy 57-year-old female, on 3 L nasal cannula , fairly comfortable in no apparent distress. HEAD: Normocephalic. EYES: Normal reaction of pupils, equal size. NOSE: Clear with pink turbinates. THROAT: No erythema or exudates. NECK: No masses, no JVD. CHEST: No chest wall deformity. Previous surgical incision dry and intact LUNGS: Equal air entry with scattered crackles in the left lung base. Diminished in the left lung. CVS: S1 and S2 normal with no audible murmur, regular rhythm. ABDOMEN: No hepatosplenomegaly, normal bowel sounds, no guarding or rigidity. SPINE: No scoliosis or deformity SKIN: No rashes CENTRAL NERVOUS SYSTEM: No focal deficits, tone is normal in all 4 extremities. EXTREMITIES: There is no peripheral edema. No clubbing, no cyanosis. Peripheral pulses are intact. - Labs CBC & Chem 7: 03/31/23 05:37 03/31/23 05:37 Labs: Abnormal Lab Results - Last 24 Hours (Table) 03/30/23 03/30/23 03/30/23 Range/Units 12:08 17:10 20:43 RBC (4.10-5.20) X 10*6/uL Hgb (12.0-15.0) g/dL Hct (37.2-46.3) % MCHC (32.0-37.0) g/dL Glucose (70-110) mg/dL POC Glucose (mg/dL) 199 H 270 H 234 H (70-110) mg/dL Calcium (8.7-10.3) mg/dL 03/31/23 03/31/23 03/31/23 Range/Units 05:37 05:37 06:16 RBC 3.50 L (4.10-5.20) X 10*6/uL Hgb 10.6 L (12.0-15.0) g/dL Hct 33.8 L (37.2-46.3) % MCHC 31.4 L (32.0-37.0) g/dL Glucose 218 H (70-110) mg/dL POC Glucose (mg/dL) 280 H (70-110) mg/dL Calcium 8.3 L (8.7-10.3) mg/dL Assessment and Plan Assessment: Acute on chronic shortness of breath without any worsening in her hypoxemia. The patient's shortness of breath is multifactorial. Obviously she has undergone a left upper lobe resection. She has also complete atelectasis of left lower lobe and several attempts to reexpand the lung on the left has failed as the patient has significant tracheal bronchomalacia, mucus, Haemophilus influenza pneumonia and narrowing of the left lower lobe orifice as noted on several bronchoscopies. The left lung remains unchanged. The acute decompensation could be related to A. fib which is paroxysmal and the patient may have some interval worsening in her volume status. As such, the patient was hospitalized. ProBNP level is elevated. In regards to the persistent left lower lobe atelectasis, the patient may benefit from the completion pneumonectomy on the left. Computed tomography scan of the chest 03/30/2023 revealed increased consolidation and collapse of the left lower lobe with essentially no residual aerated lung seen. Small to moderate size left pleural effusion however pneumothorax component of this has essentially resolved. Small mucous secretions along the tracheal wall and thoracic inlet. Right hilar adenopathy likely present on prior unenhanced study and suspected unchanged. Moderate right pleural effusions. Previous right upper lobe groundglass infiltrates have resolved. Today's chest x-ray 03/31/2023 reveals similar opacification of the left lung likely secondary to atelectasis and large pleural effusion. No pneumothorax visualized. Enlarging right pleural effusion now small to moderate. Pulmonary adenocarcinoma with a 1.5 cm mass in the left upper lobe. On 03/15/2023 she had undergone a robotically assisted thoracoscopic left upper lobectomy with mediastinal lymph node dissection, for early stage NSCLC. The final pathologic staging is T1b N1 M0 disease. Left lung collapse, essentially the left lower lobe secondary to mucous plugs. Bronchoscopy was done during the earlier hospitalization the patient was found to have mucous plugs, significant tracheal bronchomalacia, narrowing of the left lower lobe bronchial orifice. There is only a small left-sided pleural effusion and the left lung base. As such, the patient has undergone a total of 4 bronchoscopies without any success. There is also Haemophilus influenza and the bronchial lavage, consider superinfections/pneumonia complicating the postoperative course with development of significant mucus plugging, the patient was been taken Augmentin an outpatient basis. Currently on Unasyn. Acute hypoxic respiratory failure currently on 3 L of oxygen nasal cannula, pulse ox 100% Tracheobronchomalacia, severe Paroxysmal atrial fibrillation. No anticoagulants per surgical recommendations. Patient is currently in sinus rhythm with amiodarone 400 mg by mouth twice a day History of chronic obstructive pulmonary disease Chronic tobacco dependence History of CVA History of diabetes mellitus History of hypertension History of hyperlipidemia History of alcohol abuse and heroin abuse History of hepatitis B and C Plan: The patient was seen and evaluated CT scan of the chest, chest x-ray, medications and labs reviewed Patient may require left-sided completion pneumonectomy Continue the current treatment plan Titrate down the FiO2 as tolerated Encouraged to increase her activity as tolerated Encouraged to increase her use of the incentive spirometer We will continue to follow I have personally seen and examined the patient, performed the documentation and the assessment and plan as written. Number of minutes spent on the visit: 10.
[2023-03-31 12:19] LABS: Glucose,Whole Blood 249 mg/dL (70-110)
[2023-03-31] MEDS ORDERED: ALPRAZolam 0.25 MG TAB PO PRN (13:47)
--- NOTE | 2023-03-31 15:13 | P.PN ---
Subjective Progress Note Date: 03/31/23 Patient is a 57-year-old female with a past medical history of hypertension, hyperlipidemia, diabetes type 2, history of CVA/TIA with right-sided weakness, recent history of lung cancer, left upper lobectomy in February 2023, bipolar/depression and currently everyday smoker presents to ER with complaints of difficulty in breathing and chest pain. Patient was recently discharged from the hospital on 03/27/2023. Does have a history of non-small cell lung cancer underwent left upper lobectomy complicated by persistent left lower lobe atelectasis requiring multiple bronchoscopies during recent hospitalization. Valve cultures from 07/22/2022 showed haemophilus influenza. Patient was discharged home on Augmentin. On admission chest x-ray showed similar opacification of the left lung likely secondary to atelectasis and large pleural effusion. No pneumothorax visualized. Small right effusion. EKG showed atrial fibrillation with rapid ventricular response with heart rate 117. Patient is currently not on any anticoagulation. Continued on amiodarone. Laboratory data showed WBC 7.7 hemoglobin 11.9 and platelets 186 ABG showed pH 7.41 pCO2 49 and pO2 105 Sodium 136 potassium 4.5 chloride 99 bicarb is 30 BUN 12 and creatinine 0.47 blood sugar 257 and lactic acid 1.7 and calcium 7.9 ESR not elevated. Troponin x 1 negative and proBNP 3090. Influenza A, B, RSV and COVID-19 PCR not detected. Lung resection on 03/15/2023 with final pathology showing moderate to poorly differentiated pulmonary adenocarcinoma. All margins negative for malignancy. 1 of 3 hilar lymph nodes positive for metastatic carcinoma. 03/30/2023 Patient is seen in follow up today with pulmonary following as well as cardiology and adjustments to medications being done. Home medications reviewed and resumed. CT surgery consulted and discussing with surgery about complete lobectomy of the left. Patient continues with pleural effusions noted and has been started on IV lasix 20mg bid and will continue. Labs reviewed and within normal limits. Will follow up on repeat labs and monitor electrolytes and kidney functions closely. Patient is currently afebrile and denies worsening shortness of breath. Patient is continued on 4L and was sent home on this previously last week. Blood sugars elevated and will continue accuchecks achs and adjust medications accordingly. 03/31/2023 Patient seen and evaluated in follow-up today with pulmonary along with cardiothoracic surgery following. Discussing further about possible complete lobectomy of the left with cardiothoracic. Patient per nursing staff is lethargic and has been receiving scheduled Xanax along with Neurontin and pain medications and will decrease the dose of Xanax admitted as needed as well as decreasing the dose of Neurontin. Patient encouraged to increase activity as tolerated and get up more frequently out of the bed and sit up in the chair and work with physical therapy daily. Blood sugars remained elevated and will adjust and make long acting twice daily and continue with sliding scale. Patient continues on 2-3 L via nasal cannula and weaning FiO2 as tolerated. Patient is currently afebrile denies chest pain or palpitations and denies worsening shortness of breath. Patient continues to use incentive spirometer and needs encouragement to do so. Patient is receiving breathing inhalational treatments as well. Review of systems: Constitutional: No reports of fatigue, fever, or chills Cardiovascular: No reports of chest pain or palpitations Respiratory: No reports of worsening shortness of breath or cough GI: No reports of nausea, vomiting, or diarrhea : No reports of dysuria or retention Neurovascular: reports of generalized weakness All medications have been reviewed PHYSICAL EXAMINATION: Patient is sitting up in chair,, awake alert and oriented. Appears lethargic and somewhat sedated. obese HEENT: Normocephalic. Neck is supple. Pupils reactive. Nostrils clear. Oral cavity is moist. Neck reveals no JVD, carotid bruits, or thyromegaly. CHEST EXAMINATION: Trachea is central. Symmetrical expansion. Left basilar diminished sounds. No wheezing or rhonchi. CARDIAC: Normal S1, S2 with no gallops. No murmurs ABDOMEN: Soft. Bowel sounds present. Nontender. No organomegaly. No abdominal bruits. Extremities: Lower extremity trace edema. No clubbing or cyanosis Neurologically awake, alert, oriented x3, right-sided weakness. Able to move extremities while in bed. Skin: No rash or skin lesions. Psychiatric: Cooperative. Non-suicidal, anxious Musculoskeletal: No joint swelling or deformity. Assessment: Worsening shortness of breath secondary to persistent left lower lobe atelectasis/collapse despite multiple bronchoscopies during recent admission and Pleural effusion. Haemophilus influenza pneumonia. Recent BAL culture showed haemophilus. Continue with Augmentin course as per recent admission. Paroxysmal atrial fibrillation with rapid ventricular rate. Patient has new onset A-fib on 03/21/2023. Continued on amiodarone. Not on anticoagulation Pulmonary adenocarcinoma with recent left upper lobe resection on 03/15/2023 Acute on chronic hypoxic respiratory failure requiring 3-4 L oxygen via nasal cannula on admission. Patient was at 2 L during recent discharge. Severe tracheal bronchomalacia COPD History of CVA with right-sided weakness Diabetes type 2 Hypertension Hyperlipidemia History of hepatitis B&C History of alcohol abuse and hides abuse Anxiety/depression and PTSD/bipolar. Currently everyday smoker, reports to quitting on last admission obesity with a bmi of 30.8 GI and DVT prophylaxis Plan: Patient will be continued on telemetry monitoring. Continue with amiodarone. Patient is currently not on anticoagulation as per surgical recommendation. CT surgery is on board and discussing about lobectomy. Chest CT ordered and continues to show complete opacification on the left Continued on IV Lasix 20 mg every 12. Will follow up on repeat labs and monitor electrolytes closely. chest xray ordered for am with no significant change. Continue with DuoNebs and Pulmicort and insulin regimen and sliding scale. needs tight glycemic control Blood sugars remain elevated and will increase the long-acting and continue with sliding scale Recommend PT/OT therapy daily as patient has been mostly sitting and laying in bed and has not been up in motivating and walking to the bathroom. Encouraged continue incentive spirometer use at least 10 times every hour while awake Patient appears lethargic and somewhat sedated and will adjust medications and make Xanax only as needed and decrease some of the Neurontin and continue with [place] as needed for pain Due to multiple complex medical issues, Prognosis is guarded. The impression and plan of care has been dictated by Rahel Crabtree, Nurse Practitioner as directed. Dr. Kelly MD I have performed a history and examination and MDM of this patient, discussed the same with the dictator, and agree with the dictator's assessment and plan as written ,documented as a scribe. Based on total visit time, I have performed more than 50% of the visit. Objective - Vital Signs Vital signs: Vital Signs Temp 97.7 F 03/31/23 07:47 Pulse 61 03/31/23 07:47 Resp 18 03/31/23 07:47 BP 111/64 03/31/23 07:47 Pulse Ox 99 03/31/23 07:47 FiO2 Intake & Output 03/30/23 03/31/23 03/31/23 18:59 06:59 18:59 Intake Total 944 236 Balance 944 236 Intake: Oral 944 236 Other: Voiding Method Bedside Commode Bedside Commode Bedside Commode # Voids 4 2 - Labs CBC & Chem 7: 03/31/23 05:37 03/31/23 05:37 Labs: Abnormal Lab Results - Last 24 Hours (Table) 03/30/23 03/30/23 03/30/23 Range/Units 12:08 17:10 20:43 POC Glucose (mg/dL) 199 H 270 H 234 H (70-110) mg/dL 03/31/23 Range/Units 06:16 POC Glucose (mg/dL) 280 H (70-110) mg/dL
[2023-03-31 17:27] LABS: Glucose,Whole Blood 284 mg/dL (70-110)
[2023-03-31 20:27] LABS: Glucose,Whole Blood 314 mg/dL (70-110)
[2023-04-01] MEDS: GABAPENTIN 400 MG CAP PO SCH ×4 (01:30→20:13)
[2023-04-01] MEDS: FUROSEMIDE 10 MG/ML 2 ML VIAL IV SCH ×2 (06:47→20:13)
[2023-04-01 06:50] LABS: Glucose,Whole Blood 208 mg/dL (70-110)
[2023-04-01] MEDS: INSULIN ASPART (NovoLOG) 100 UNIT/ML VIAL SQ SCH ×4 (06:53→20:48)
[2023-04-01] MEDS: INSULIN DETEMIR (LEVEMIR) 100 UNIT/ML SYR SQ SCH ×2 (07:43→20:48)
[2023-04-01] MEDS: IPRATROPIUM-ALBUTEROL 3 ML NEB INHALATION SCH ×4 (08:51→18:31)
[2023-04-01] MEDS ORDERED: LIDOCAINE 2% INJ 20 MG/ML INTRATRACH ONE ×2 (09:25→10:33)
[2023-04-01] MEDS: AMIODARONE 200 MG TAB PO SCH ×2 (10:14→20:13)
[2023-04-01] MEDS: AMPICILLIN-SULBACTAM 1.5 GM in SODIUM CHLORIDE 0.9% 50 ML IVPB SCH ×3 (10:14→23:19)
[2023-04-01] MEDS: ATORVASTATIN 10 MG TAB PO SCH (10:14)
[2023-04-01] MEDS: PANTOPRAZOLE 40 MG TABLET PO SCH (10:15)
[2023-04-01] MEDS ORDERED: IV FLUID CONTINUATION 1,000 ML IV ONE (10:27)
[2023-04-01] MEDS ORDERED: LIDOCAINE 1% INJ 10MG/ML (20 ML MDV) ONE (10:30)
[2023-04-01] MEDS ORDERED: MIDAZOLAM 2 MG/2 ML VIAL ONE (10:30)
[2023-04-01] MEDS ORDERED: fentaNYL (PF) 50 MCG/ML 2 ML AMP ONE (10:30)
[2023-04-01] MEDS ORDERED: PROPOFOL 10 MG/ML 20 ML VIAL IV ONE (10:30)
[2023-04-01] MEDS ORDERED: LIDOCAINE 2% GLYDO JELLY 6 ML APPL TOPICAL ONE (10:33)
[2023-04-01] MEDS ORDERED: polyethylene glycoL 3350 17 GM POWD.PACK PO PRN (11:39)
[2023-04-01] MEDS: HEPARIN SODIUM,PORCINE 5,000 UNIT/ML 1 ML VIAL SQ SCH ×3 (11:50→23:19)
[2023-04-01] MEDS: FOLIC ACID 1 MG TAB PO SCH ×2 (11:56→15:06)
[2023-04-01] MEDS: THIAMINE 100 MG TAB PO SCH ×2 (11:56→15:06)
[2023-04-01] MEDS: SYMBICORT 80-4.5 MCG INHALER INHALATION SCH ×2 (11:56→19:53)
[2023-04-01] MEDS: ACETYLCYSTEINE 800 MG/4 ML VIAL INHALATION SCH ×2 (12:00→18:30)
--- NOTE | 2023-04-01 12:04 | XR ---
EXAMINATION TYPE: XR chest 1V portable DATE OF EXAM: 04/01/2023 COMPARISON: 03/31/2023 INDICATION: Post bronchoscopy TECHNIQUE: Single frontal view of the chest is obtained. FINDINGS: The heart size is enlarged. The pulmonary vasculature is normal. There is opacification to the right lung. Some partial improved aeration of the mid and upper lung fi elds present. Right lower lobe infiltrate is present. Small right pleural effusion is evident. No pne umothorax is identified. Deformed. IMPRESSION: 1. Improvement in left mid and upper lung field infiltrate and opacification. 2. Mild right lower lobe infiltrate. 3. Small right pleural effusion
[2023-04-01 12:14] LABS: Glucose,Whole Blood 190 mg/dL (70-110)
--- NOTE | 2023-04-01 17:32 | P.PN ---
Subjective Progress Note Date: 04/01/23 Principal diagnosis: Left lung atelectasis and opacification with acute hypoxic respiratory failure 57-year-old female patient with known history of non-small cell lung cancer who underwent a left upper lobe resection and this was complicated by persistent left lower lobe atelectasis requiring multiple bronchoscopies during cardiac hospitalizations without any success in the left lower lobe remained atelectatic. Several CAT scans were done and the patient continued to have small left-sided pleural effusion with complete atelectatic/consolidated left lower lobe. The third bronchoscopies was done yielded a positive microbial growth of Haemophilus influenza and the patient was kept on Augmentin. She was found to have severe tracheal bronchomalacia, mucus plugging, narrowing of the left lower lobe bronchus orifice which was complicated into her left lower lobe collapse. It's possible also that the left lower lobe was consolidated/infected. The patient did some progress during hospital stay, she was weaned down to 2 L of O2 nasal cannula. However, the left lung remains unchanged. She was discharged home upon request on Augmentin. We will consider getting a completion lobectomy of the left lower lobe based on the persistent atelectasis and failure for reexpansion. However, the patient was quite weak and she was having issues with atrial fibrillation that started during her hospital stay. She was not placed on any anticoagulants. She was placed on ami odarone. She was discharged home on O2 at 2 L. She is coming back with worsening shortness of breath. She was in A. fib. Slightly tachycardic. Chest x-ray is unchanged. The white cell count remains low at 7.7 with a hemoglobin of 11.9. Blood gas on 36% FiO2 showed a pH of 7.41 with episodes of 49 and pO2 of 105. The BUN is at 12 with a creatinine of 0.4 and sodium levels of 139. ProBNP level was elevated. The viral screen was negative. Echo was done during her earlier hospitalization that showed a preserved LV function with an ejection fraction of 55%. The patient's final pathology was consistent with moderate/poorly differentiated pulmonary adenocarcinoma. The tumor size was 1.5 cm. This was located left upper lobe. The patient had 1 lymph node in the hilum that was positive. The rest of the lymph nodes involving the station 10, 6, 11, 9, 7 and 5 were all negative. As such, the patient was given a [id number] disease. The patient is seen today 03/31/2023 in follow-up on the regular medical floor. She is currently awake and alert in no acute distress. Sitting up in a chair at the bedside. She is having ongoing issues with some shortness of breath and left-sided chest discomfort. She also has complaints of anxiety. She is currently maintaining O2 saturations in the high 90s on 4 L/m per nasal cannula. She's afebrile. Hemodynamically stable. White count 9.9. Hemoglobin 10.9. Platelets 186. Sodium 141 potassium 5.1. Bicarb 33. BUN 9. Creatinine 0.7. Glucose 221. She is continued on DuoNeb inhalations, Symbicort, IV diuretics. Heparin for DVT prophylaxis. Antibiotics in the form of Augmentin. Patient was evaluated today on 04/01/23, a is basically about the same, patient was seen by thoracic surgery and she was told that she will undergo bronchoscopy today. Patient is comfortable, chest x-ray all along has been showing complete opacification of the left lung, hopefully this bronchoscopy would be better than previous bronchoscopy and more beneficial however considering the patient already had 4 bronchoscopies and did not improve her lung condition, I doubt that this will. However this bronchoscopy is being done by thoracic surgery/Dr. June Objective - Vital Signs Vital signs: Vital Signs Temp 97.7 F 04/01/23 11:22 Pulse 84 04/01/23 16:05 Resp 20 04/01/23 16:05 BP 125/65 04/01/23 15:21 Pulse Ox 98 04/01/23 15:21 FiO2 Intake & Output 03/31/23 04/01/23 04/01/23 18:59 06:59 18:59 Intake Total 236 150 Balance 236 150 Intake: IV 150 Oral 236 Other: Voiding Method Bedside Commode Bedside Commode # Voids 1 1 - Exam Physical Exam: Revealed 57-year-old female in no distress, on 4 L nasal cannula Head: Atraumatic normocephalic HEENT:[Neck is supple.] [No neck masses.] [No thyromegaly.] [No JVD.] Chest: [Williams breath sounds on the left side, right side is clear Cardiac Exam: [Normal S1 and S2, no S3 gallop, no murmur.] Abdomen: [Soft, nontender, no megaly, no rebound, no guarding, normal bowel sounds.] Extremities: [No clubbing, no edema, no cyanosis.] Neurological Exam: [No focal neurologic deficit.] Alert oriented 3 Creatinine: Normal mood affect and normal mental status examination Skin: No rash - Labs CBC & Chem 7: 03/31/23 05:37 03/31/23 05:37 Labs: Abnormal Lab Results - Last 24 Hours (Table) 03/31/23 03/31/23 04/01/23 Range/Units 17:26 20:26 06:48 POC Glucose (mg/dL) 284 H 314 H 208 H (70-110) mg/dL 04/01/23 Range/Units 12:12 POC Glucose (mg/dL) 190 H (70-110) mg/dL Assessment and Plan Assessment: Impression: Acute hypoxic respiratory failure Left lung collapse and consolidation following left upper lobectomy History of adenocarcinoma and she is status post left upper lobectomy with mediastinal node dissection postoperative day #15 Tracheobronchomalacia Chronic obstructive lung disease Paroxysmal atrial fibrillation Type 2 diabetes History of CVA Dyslipidemia History of alcohol and heroin abuse History of hepatitis C and B Recommendation: Continue present supportive care measures Awaiting findings from bronchoscopy which is scheduled to be done today Continue bronchodilators Continue diuretics Continue DVT prophylaxis We'll continue to follow Time with Patient: Less than 30
[2023-04-01] MEDS: SENNOSIDES 8.6 MG TAB PO SCH (20:13)
[2023-04-01] MEDS: guaiFENesin 600 MG TABLET.ER PO SCH (20:13)
[2023-04-01 20:21] LABS: Glucose,Whole Blood 235 mg/dL (70-110)
[2023-04-02] MEDS: FUROSEMIDE 10 MG/ML 2 ML VIAL IV SCH ×2 (06:24→18:39)
[2023-04-02 06:40] LABS: Glucose,Whole Blood 234 mg/dL (70-110)
[2023-04-02] MEDS: IPRATROPIUM-ALBUTEROL 3 ML NEB INHALATION PRN (06:41)
[2023-04-02] MEDS: INSULIN ASPART (NovoLOG) 100 UNIT/ML VIAL SQ SCH ×4 (06:48→21:11)
[2023-04-02] MEDS: PANTOPRAZOLE 40 MG TABLET PO SCH (08:39)
[2023-04-02] MEDS: INSULIN DETEMIR (LEVEMIR) 100 UNIT/ML SYR SQ SCH ×2 (08:39→21:10)
[2023-04-02] MEDS: AMIODARONE 200 MG TAB PO SCH ×2 (08:39→19:39)
[2023-04-02] MEDS: THIAMINE 100 MG TAB PO SCH (08:40)
[2023-04-02] MEDS: HYDROcodone/APAP 5-325MG 1 EACH TAB PO PRN ×2 (08:40→17:32)
[2023-04-02] MEDS: guaiFENesin 600 MG TABLET.ER PO SCH ×2 (08:40→19:39)
[2023-04-02] MEDS: ATORVASTATIN 10 MG TAB PO SCH (08:40)
[2023-04-02] MEDS: FOLIC ACID 1 MG TAB PO SCH (08:40)
[2023-04-02] MEDS: GABAPENTIN 400 MG CAP PO SCH ×3 (08:40→19:39)
[2023-04-02 08:43] LABS: Basophils # (A) 0.03 X 10*3/uL (0.00-0.10); Basophils % (A) 0.4 %; Eosinophils # (A) 0.14 X 10*3/uL (0.04-0.35); Eosinophils % (A) 1.7 %; HCT 32.4 % (37.2-46.3); HGB 10.4 g/dL (12.0-15.0); Lymphocytes % (A) 20.9 %; MCH 30.4 pg (27.0-32.0); MCHC 32.1 g/dL (32.0-37.0); MCV 94.7 FL (80.0-97.0); Monocytes # (A) 0.76 X 10*3/uL (0.20-1.00); Monocytes % (A) 9.3 %; NRBC Per 100 WBC 0 X 10*3/uL (0.00-0.01); Neutrophils # (A) 5.48 X 10*3/uL (1.80-7.70); Neutrophils % (A) 67.5 %; Platelet Count 160 X 10*3/uL (140-440); RBC 3.42 X 10*6/uL (4.10-5.20); RDW 13.7 % (11.5-14.5); WBC 8.13 X 10*3/uL (4.50-10.00)
[2023-04-02 08:47] LABS: BUN/Creat Ratio 18.86 Ratio (12.00-20.00); Blood Urea Nitrogen 13.2 mg/dL (9.0-27.0); Calcium 8.2 mg/dL (8.7-10.3); Carbon Dioxide 31.8 mmol/L (21.6-31.8); Chloride 94 mmol/L (96-109); Glucose 164 mg/dL (70-110); Potassium 3.8 mmol/L (3.5-5.5); Sodium 135 mmol/L (135-145)
[2023-04-02] MEDS: ACETYLCYSTEINE 800 MG/4 ML VIAL INHALATION SCH ×3 (09:11→19:44)
[2023-04-02] MEDS: IPRATROPIUM-ALBUTEROL 3 ML NEB INHALATION SCH ×4 (09:12→19:43)
--- NOTE | 2023-04-02 09:25 | XR ---
EXAMINATION TYPE: XR chest 1V portable DATE OF EXAM: 04/02/2023 9:08 AM CLINICAL INDICATION:Female, 57 years old with history of Dyspnea; [facility] COMPARISON: Chest radiographs from 04/01/2023. TECHNIQUE: XR chest 1V portable Frontal view of the chest. FINDINGS: Lungs/Pleura: Complete opacification of the left lung. There is no evidence for focal consolidation o r pneumothorax. Increasing right pleural effusion. Pulmonary vascularity: Unremarkable. Heart/mediastinum: Cardiomediastinal silhouette is partially obscured due to overlying and adjacent o pacities. Musculoskeletal: No acute osseous pathology. IMPRESSION: 1. Similar opacification of the left lung likely secondary to atelectasis and large pleural effusion . No pneumothorax visualized. 2. Enlarging right pleural effusion now small to moderate
[2023-04-02] MEDS: SENNOSIDES 8.6 MG TAB PO SCH ×2 (09:52→19:39)
[2023-04-02] MEDS: AMPICILLIN-SULBACTAM 1.5 GM in SODIUM CHLORIDE 0.9% 50 ML IVPB SCH ×2 (09:52→17:51)
[2023-04-02] MEDS: HEPARIN SODIUM,PORCINE 5,000 UNIT/ML 1 ML VIAL SQ SCH ×2 (09:52→17:25)
--- NOTE | 2023-04-02 10:23 | P.PN ---
Subjective Progress Note Date: 04/01/23 Patient is a 57-year-old female with a past medical history of hypertension, hyperlipidemia, diabetes type 2, history of CVA/TIA with right-sided weakness, recent history of lung cancer, left upper lobectomy in February 2023, bipolar/depression and currently everyday smoker presents to ER with complaints of difficulty in breathing and chest pain. Patient was recently discharged from the hospital on 03/27/2023. Does have a history of non-small cell lung cancer underwent left upper lobectomy complicated by persistent left lower lobe atelectasis requiring multiple bronchoscopies during recent hospitalization. Valve cultures from 07/22/2022 showed haemophilus influenza. Patient was discharged home on Augmentin. On admission chest x-ray showed similar opacification of the left lung likely secondary to atelectasis and large pleural effusion. No pneumothorax visualized. Small right effusion. EKG showed atrial fibrillation with rapid ventricular response with heart rate 117. Patient is currently not on any anticoagulation. Continued on amiodarone. Laboratory data showed WBC 7.7 hemoglobin 11.9 and platelets 186 ABG showed pH 7.41 pCO2 49 and pO2 105 Sodium 136 potassium 4.5 chloride 99 bicarb is 30 BUN 12 and creatinine 0.47 blood sugar 257 and lactic acid 1.7 and calcium 7.9 ESR not elevated. Troponin x 1 negative and proBNP 3090. Influenza A, B, RSV and COVID-19 PCR not detected. Lung resection on 03/15/2023 with final pathology showing moderate to poorly differentiated pulmonary adenocarcinoma. All margins negative for malignancy. 1 of 3 hilar lymph nodes positive for metastatic carcinoma. 03/30/2023 Patient is seen in follow up today with pulmonary following as well as cardiology and adjustments to medications being done. Home medications reviewed and resumed. CT surgery consulted and discussing with surgery about complete lobectomy of the left. Patient continues with pleural effusions noted and has been started on IV lasix 20mg bid and will continue. Labs reviewed and within normal limits. Will follow up on repeat labs and monitor electrolytes and kidney functions closely. Patient is currently afebrile and denies worsening shortness of breath. Patient is continued on 4L and was sent home on this previously last week. Blood sugars elevated and will continue accuchecks achs and adjust medications accordingly. 03/31/2023 Patient seen and evaluated in follow-up today with pulmonary along with cardiothoracic surgery following. Discussing further about possible complete lobectomy of the left with cardiothoracic. Patient per nursing staff is lethargic and has been receiving scheduled Xanax along with Neurontin and pain medications and will decrease the dose of Xanax admitted as needed as well as decreasing the dose of Neurontin. Patient encouraged to increase activity as tolerated and get up more frequently out of the bed and sit up in the chair and work with physical therapy daily. Blood sugars remained elevated and will adjust and make long acting twice daily and continue with sliding scale. Patient continues on 2-3 L via nasal cannula and weaning FiO2 as tolerated. Patient is currently afebrile denies chest pain or palpitations and denies worsening shortness of breath. Patient continues to use incentive spirometer and needs encouragement to do so. Patient is receiving breathing inhalational treatments as well. 04/01/2023 Patient is seen in follow-up today scheduled to undergo bronchoscopy with pulmonary and cardiothoracic surgery following closely. Chest x-ray ordered for post bronchoscopy which is pending. Patient's blood sugars slightly improved and have added long-acting twice daily along with sliding scale. Encouraged increase activity as tolerated. Patient to be evaluated by physical therapy and would recommend daily. Patient also with incentive spirometer at the bedside encouraged to use at least 10 times every hour while awake. Patient reports not feeling she is having worsening shortness of breath although continues to have shortness of breath. Review of systems: Constitutional: No reports of fatigue, fever, or chills Cardiovascular: No reports of chest pain or palpitations Respiratory: No reports of worsening shortness of breath or cough GI: No reports of nausea, vomiting, or diarrhea : No reports of dysuria or retention Neurovascular: reports of generalized weakness All medications have been reviewed PHYSICAL EXAMINATION: Patient is sitting up in chair,, awake alert and oriented. More awake today and less drowsy on conversation. obese HEENT: Normocephalic. Neck is supple. Pupils reactive. Nostrils clear. Oral cavity is moist. Neck reveals no JVD, carotid bruits, or thyromegaly. CHEST EXAMINATION: Trachea is central. Symmetrical expansion. Left basilar diminished sounds. No wheezing or rhonchi. CARDIAC: Normal S1, S2 with no gallops. No murmurs ABDOMEN: Soft. Bowel sounds present. Nontender. No organomegaly. No abdominal bruits. Extremities: Lower extremity trace edema. No clubbing or cyanosis Neurologically awake, alert, oriented x3, right-sided weakness. Able to move extremities while in bed. Skin: No rash or skin lesions. Psychiatric: Cooperative. Non-suicidal, anxious Musculoskeletal: No joint swelling or deformity. Assessment: Worsening shortness of breath secondary to persistent left lower lobe atelectasis/collapse despite multiple bronchoscopies during recent admission and Pleural effusion. Haemophilus influenza pneumonia. Recent BAL culture showed haemophilus. Continue with Augmentin course as per recent admission. Paroxysmal atrial fibrillation with rapid ventricular rate. Patient has new onset A-fib on 03/21/2023. Continued on amiodarone. Not on anticoagulation Pulmonary adenocarcinoma with recent left upper lobe resection on 03/15/2023 Acute on chronic hypoxic respiratory failure requiring 3-4 L oxygen via nasal cannula on admission. Patient was at 2 L during recent discharge. Severe tracheal bronchomalacia COPD History of CVA with right-sided weakness Diabetes type 2 Hypertension Hyperlipidemia History of hepatitis B&C History of alcohol abuse and hides abuse Anxiety/depression and PTSD/bipolar. Currently everyday smoker, reports to quitting on last admission obesity with a bmi of 30.8 GI and DVT prophylaxis Plan: Patient will be continued on telemetry monitoring. Continue with amiodarone. Patient is currently not on anticoagulation as per surgical recommendation. CT surgery is on board and discussing about lobectomy. Chest CT ordered and continues to show complete opacification on the left. Patient is scheduled to undergo bronchoscopy today which is pending at this time with follow-up chest x- ray ordered. Will follow up on report Continued on IV Lasix 20 mg every 12. Will follow up on repeat labs and monitor electrolytes closely Continue with Karoline and insulin regimen and sliding scale. needs tight glycemic control Blood sugars remain elevated above improved and have added long-acting to twice daily along with sliding scale. We'll continue to monitor closely. Recommend PT/OT therapy daily as patient has been mostly sitting and laying in bed and has not been up in motivating and walking to the bathroom. Patient was able to walk a few steps in the room today. Encouraged continue incentive spirometer use at least 10 times every hour while awake Recommend holding LOCKMAKER and narcotic agents if patient is lethargic. Medications have been adjusted to lesser doses Due to multiple complex medical issues, Prognosis is guarded. The impression and plan of care has been dictated by Rahel Crabtree, Nurse Practitioner as directed. Dr. Kelly MD I have performed a history and examination and MDM of this patient, discussed the same with the dictator, and agree with the dictator's assessment and plan as written ,documented as a scribe. Based on total visit time, I have performed more than 50% of the visit. Objective - Vital Signs Vital signs: Vital Signs Temp 98.1 F 04/01/23 07:30 Pulse 75 04/01/23 09:01 Resp 20 04/01/23 07:30 BP 125/57 04/01/23 07:30 Pulse Ox 97 04/01/23 08:53 FiO2 Intake & Output 03/31/23 04/01/23 04/01/23 18:59 06:59 18:59 Intake Total 236 150 Balance 236 150 Intake: IV 150 Oral 236 Other: Voiding Method Bedside Commode Bedside Commode # Voids 1 1 - Labs CBC & Chem 7: 04/02/23 05:37 04/02/23 05:37 Labs: Abnormal Lab Results - Last 24 Hours (Table) 03/31/23 03/31/23 03/31/23 Range/Units 12:17 17:26 20:26 POC Glucose (mg/dL) 249 H 284 H 314 H (70-110) mg/dL 04/01/23 Range/Units 06:48 POC Glucose (mg/dL) 208 H (70-110) mg/dL
[2023-04-02 12:04] LABS: Glucose,Whole Blood 289 mg/dL (70-110)
--- NOTE | 2023-04-02 14:03 | P.PN ---
Subjective Progress Note Date: 04/02/23 57-year-old female patient with known history of non-small cell lung cancer who underwent a left upper lobe resection and this was complicated by persistent left lower lobe atelectasis requiring multiple bronchoscopies during cardiac hospitalizations without any success in the left lower lobe remained ate lectatic. Several CAT scans were done and the patient continued to have small left-sided pleural effusion with complete atelectatic/consolidated left lower lobe. The third bronchoscopies was done yielded a positive microbial growth of Haemophilus influenza and the patient was kept on Augmentin. She was found to have severe tracheal bronchomalacia, mucus plugging, narrowing of the left lower lobe bronchus orifice which was complicated into her left lower lobe collapse. It's possible also that the left lower lobe was consolidated/infected. The patient did some progress during hospital stay, she was weaned down to 2 L of O2 nasal cannula. However, the left lung remains unchanged. She was discharged home upon request on Augmentin. We will consider getting a completion lobectomy of the left lower lobe based on the persistent atelectasis and failure for reexpansion. However, the patient was quite weak and she was having issues with atrial fibrillation that started during her hospital stay. She was not placed on any anticoagulants. She was placed on amiodarone. She was discharged home on O2 at 2 L. She is coming back with worsening shortness of breath. She was in A. fib. Slightly tachycardic. Chest x-ray is unchanged. The white cell count remains low at 7.7 with a hemoglobin of 11.9. Blood gas on 36% FiO2 showed a pH of 7.41 with episodes of 49 and pO2 of 105. The BUN is at 12 with a creatinine of 0.4 and sodium levels of 139. ProBNP level was elevated. The viral screen was negative. Echo was done during her earlier hospitalization that showed a preserved LV function with an ejection fraction of 55%. The patient's final pathology was consistent with moderate/poorly differentiated pulmonary adenocarcinoma. The tumor size was 1.5 cm. This was located left upper lobe. The patient had 1 lymph node in the hilum that was positive. The rest of the lymph nodes involving the station 10, 6, 11, 9, 7 and 5 were all negative. As such, the patient was given a [id number] disease. The patient is seen today 03/30/2023 in follow-up on the regular medical floor. She is currently awake and alert in no acute distress. Sitting up in a chair at the bedside. She is having ongoing issues with some shortness of breath and left-sided chest discomfort. She also has complaints of anxiety. She is currently maintaining O2 saturations in the high 90s on 4 L/m per nasal cannula. She's afebrile. Hemodynamically stable. White count 9.9. Hemoglobin 10.9. Platelets 186. Sodium 141 potassium 5.1. Bicarb 33. BUN 9. Creatinine 0.7. Glucose 221. She is continued on DuoNeb inhalations, Symbicort, IV diuretics. Heparin for DVT prophylaxis. Antibiotics in the form of Augmentin. The patient seen today 03/31/2023 in follow-up on the regular medical floor. She is awake and somewhat drowsy in no acute distress. Maintaining O2 saturations up to 100% on 3 L/m per nasal cannula. She's been afebrile. Hemodynamically stable. Computed tomography scan of the chest revealed increased consolidation and collapse of the left lower lobe with essentially no residual aerated lung seen. Small to moderate size left pleural effusion however pneumothorax component of this has essentially resolved. Small mucous secretions along the tracheal wall and thoracic inlet. Right hilar adenopathy likely present on prior unenhanced study and suspected unchanged. Moderate right pleural effusions. Previous right upper lobe groundglass infiltrates have resolved. Today's chest x-ray reveals similar opacification of the left lung likely secondary to atelectasis and large pleural effusion. No pneumothorax visualized. Enlarging right pleural effusion now small to moderate. White count 9.2. Hemoglobin 10.6. Platelets 160. Sodium 136. Potassium 4.1. Bicarb 30. BUN 10. Creatinine 0.8. Glucose 218. Remains on Symbicort, DuoNeb inhalations, IV diuretics. Heparin for DVT prophylaxis. Antibiotics in the form of Unasyn. Increased encouragement regarding the use of the incentive spirometer and increased activity. Patient was evaluated today on 04/01/23, a is basically about the same, patient was seen by thoracic surgery and she was told that she will undergo bronchoscopy today. Patient is comfortable, chest x-ray all along has been showing complete opacification of the left lung, hopefully this bronchoscopy would be better than previous bronchoscopy and more beneficial however considering the patient already had 4 bronchoscopies and did not improve her lung condition, I doubt that this will. However this bronchoscopy is being done by thoracic surgery/Dr. June The patient is seen today 04/02/2023 in follow-up on the regular medical floor. She is currently sitting up in a chair. Awake and alert in no acute distress. She is maintaining good O2 saturations in the 90s on 2 L/m per nasal cannula. White count 8.1. Hemoglobin 10.4. Platelets 160. Sodium 135. Potassium 3.8. Bicarb 32. BUN 13. Creatinine 0.7. Glucose 164. Chest x-ray continues to show similar opacification of left lung will occur rectal secondary to atelectas is and large pleural effusion. No pneumothorax visualized. Enlarging right pleural effusion now small to moderate. She did undergo bronchoscopy yesterday with Dr. June and the plan is to return for another bronchoscopy again today. She is continued on DuoNeb inhalations, Symbicort, Mucinex, Mucomyst, antibiotics in the form of Unasyn. Heparin for DVT prophylaxis. Objective - Vital Signs Vital signs: Vital Signs Temp 98.3 F 04/02/23 08:00 Pulse 62 04/02/23 12:13 Resp 16 04/02/23 08:00 BP 114/60 04/02/23 08:00 Pulse Ox 92 L 04/02/23 09:13 FiO2 Intake & Output 04/01/23 04/02/23 04/02/23 18:59 06:59 18:59 Intake Total 200 360 Balance 200 360 Intake: IV 150 Intake, IV Titration 50 Amount Ampicillin-Sulbactam 1.5 50 gm In Sodium Chloride 0.9 % 50 ml @ 100 mls/hr IVPB Q8HR [facility] Rx#:[id number] Oral 360 Other: Voiding Method Bedside Commode # Voids 1 1 1 - Exam GENERAL EXAM: Awake, alert, pleasant 57-year-old female, on 3 L nasal cannula, sitting up in a chair, fairly comfortable in no apparent distress. HEAD: Normocephalic. EYES: Normal reaction of pupils, equal size. NOSE: Clear with pink turbinates. THROAT: No erythema or exudates. NECK: No masses, no JVD. CHEST: No chest wall deformity. Previous surgical incision dry and intact LUNGS: Equal air entry with scattered crackles in the bases left greater than right. Diminished in the left lung. CVS: S1 and S2 normal with no audible murmur, regular rhythm. ABDOMEN: No hepatosplenomegaly, normal bowel sounds, no guarding or rigidity. SPINE: No scoliosis or deformity SKIN: No rashes CENTRAL NERVOUS SYSTEM: No focal deficits, tone is normal in all 4 extremities. EXTREMITIES: There is no peripheral edema. No clubbing, no cyanosis. Peripheral pulses are intact. - Labs CBC & Chem 7: 04/02/23 05:37 04/02/23 05:37 Labs: Abnormal Lab Results - Last 24 Hours (Table) 04/01/23 04/02/23 04/02/23 Range/Units 20:19 05:37 05:37 RBC 3.42 L (4.10-5.20) X 10*6/uL Hgb 10.4 L (12.0-15.0) g/dL Hct 32.4 L (37.2-46.3) % Chloride 94 L (96-109) mmol/L Glucose 164 H (70-110) mg/dL POC Glucose (mg/dL) 235 H (70-110) mg/dL Calcium 8.2 L (8.7-10.3) mg/dL 04/02/23 04/02/23 Range/Units 06:38 12:03 RBC (4.10-5.20) X 10*6/uL Hgb (12.0-15.0) g/dL Hct (37.2-46.3) % Chloride (96-109) mmol/L Glucose (70-110) mg/dL POC Glucose (mg/dL) 234 H 289 H (70-110) mg/dL Calcium (8.7-10.3) mg/dL Assessment and Plan Assessment: Acute on chronic shortness of breath without any worsening in her hypoxemia. The patient's shortness of breath is multifactorial. Obviously she has undergone a left upper lobe resection. She has also complete atelectasis of left lower lobe and several attempts to reexpand the lung on the left has failed as the patient has significant tracheal bronchomalacia, mucus, Haemophilus i nfluenza pneumonia and narrowing of the left lower lobe orifice as noted on several bronchoscopies. The left lung remains unchanged. The acute decompensation could be related to A. fib which is paroxysmal and the patient may have some interval worsening in her volume status. As such, the patient was hospitalized. ProBNP level is elevated. Vanita on IV diuretics. In regards to the persistent left lower lobe atelectasis, the patient may benefit from the completion pneumonectomy on the left. Computed tomography scan of the chest 03/30/2023 revealed increased consolidation and collapse of the left lower lobe with essentially no residual aerated lung seen. Small to moderate size left pleural effusion however pneumothorax component of this has essentially resolved. Small mucous secretions along the tracheal wall and thoracic inlet. Right hilar adenopathy likely present on prior unenhanced study and suspected unchanged. Moderate right pleural effusions. Previous right upper lobe groundglass infiltrates have resolved. Today's chest x-ray 04/02/2023 reveals similar opacification of the left lung likely secondary to atelectasis and large pleural effusion. No pneumothorax visualized. Right pleural effusion now small to moderate. Pulmonary adenocarcinoma with a 1.5 cm mass in the left upper lobe. On 03/15/2023 she had undergone a robotically assisted thoracoscopic left upper lobectomy with mediastinal lymph node dissection, for early stage NSCLC. The final pathologic staging is T1b N1 M0 disease. Left lung collapse, essentially the left lower lobe secondary to mucous plugs. Bronchoscopy was done during the earlier hospitalization the patient was found to have mucous plugs, significant tracheal bronchomalacia, narrowing of the left lower lobe bronchial orifice. There is only a small left-sided pleural effusion and the left lung base. As such, the patient has undergone a total of 5 bronchoscopies without any success. There is also Haemophilus influenza and the bronchial lavage, consider superinfections/pneumonia complicating the postoperative course with development of significant mucus plugging, the patient was been taken Augmentin an outpatient basis. Currently on Unasyn. Plan is for another bronchoscopy today by CT services Acute hypoxic respiratory failure currently on 2 L of oxygen nasal cannula, pulse ox 92% Tracheobronchomalacia, severe Paroxysmal atrial fibrillation. No anticoagulants per surgical recommendations. Patient is currently in sinus rhythm with amiodarone 400 mg by mouth twice a day History of chronic obstructive pulmonary disease Chronic tobacco dependence History of CVA History of diabetes mellitus History of hypertension History of hyperlipidemia History of alcohol abuse and heroin abuse History of hepatitis B and C Plan: The patient was seen and evaluated Chest x-ray, medications and labs reviewed Patient did undergo another bronchoscopy yesterday by CT services Plan is for repeat bronchoscopy again today Mucomyst and Mucinex had been added Titrate down the FiO2 as tolerated Encouraged to increase her activity as tolerated Encouraged to increase her use of the incentive spirometer We will continue to follow I have personally seen and examined the patient, performed the documentation and the assessment and plan as written. Number of minutes spent on the visit: 10.
[2023-04-02] MEDS ORDERED: fentaNYL (PF) 50 MCG/ML 2 ML AMP ONE (14:24)
[2023-04-02] MEDS ORDERED: KETAMINE HCL IN 0.9 % NACL 50 MG/5 ML SYRINGE ONE (14:24)
[2023-04-02] MEDS ORDERED: MIDAZOLAM 2 MG/2 ML VIAL ONE (14:24)
[2023-04-02] MEDS ORDERED: GLYCOPYRROLATE 0.2 MG/ML 2 ML VIAL ONE (14:24)
[2023-04-02] MEDS ORDERED: IV FLUID CONTINUATION 1,000 ML IV ONE (14:26)
[2023-04-02] MEDS ORDERED: LIDOCAINE 2% (PF) 20 MG/ML 2 ML VIAL INHALATION ONE ×2 (14:32)
--- NOTE | 2023-04-02 14:47 | P.OP ---
Date of Procedure: 04/01/23 Preoperative Diagnosis: Mucus plugging left mainstem bronchus Postoperative Diagnosis: Same, foreign body right mainstem bronchus Procedure(s) Performed: Fiberoptic bronchoscopy with clearing of mucous plug and removal of foreign body Anesthesia: MARGARITA ASHLEY Surgeon: Beka June Pathology: other (Foreign body right mainstem bronchus) Condition: stable Disposition: floor Indications for Procedure: 57-year-old female status post left upper lobectomy with recurrent left mainstem bronchus mucous plugging and complete white out of left chest. Computed tomography scan consistent with mucous plugging of the left mainstem bronchus. Operative Findings: Hyper collapsible airway, thick tenacious mucus present throughout the bronchial tree completely occluding the left mainstem bronchus distally, incidental finding of a foreign body in the right mainstem bronchus consistent with a pea. Description of Procedure: Patient was placed supine on the table and IV sedation was administered. Oxygen was administered through a mask. Interventional bronchoscope was placed through the mouth and the cords were visualized and anesthetized with topical lidocaine. Bronchoscope was passed into the trachea and advanced to the bronchial bifurcation. Tenacious white sputum was present. This was suctioned free. The bronchoscope had to be removed on several occasions and be cleared of obstructing mucus and then replaced. In exploring the right Endo bronchial tree a foreign body was noted. This was grasped with a snare and removed. It seemed consistent with a green pea. It was sent for pathology. On clearing the majority of the thick mucus, bronchoalveolar lavage of the right mainstem bronchus was performed with 20 mL of normal saline. This was then cleared and the endobronchial tree was clear throughout. Bronchoscope was removed and the patient was awakened.
--- NOTE | 2023-04-02 14:51 | P.OP ---
Date of Procedure: 04/02/23 Preoperative Diagnosis: Mucus plugging left mainstem bronchus. Postoperative Diagnosis: Same Procedure(s) Performed: Fiberoptic bronchoscopy with clearing of mucous Anesthesia: MAC Surgeon: Beka June Pathology: none sent Condition: stable Disposition: floor Indications for Procedure: 57-year-old female status post left upper lobectomy with recurrent left mainstem bronchus obstruction from tenacious mucus. Fiberoptic bronchoscopy was performed on the day prior and the airway was cleared. Postoperative chest x- ray appeared slightly improved with some aeration of the left lower lobe. Repeat x-ray in the morning again showed white out of the chest. Repeat bronchoscopy was therefore indicated. Operative Findings: The airway was hyper collapsible. There was thick mucus present in the left mainstem bronchus was quite tenacious but not of the same volume as the day prior. Description of Procedure: Patient was brought to the endoscopy suite and placed supine. IV sedation was given. Oxygen was administered via mask. Interventional bronchoscope was passed through the mouth to the level of the cords which were anesthetized with topical lidocaine. Copious passed easily into the trachea. The trach Na was hyper collapsible. On reaching the nickie there was evidence of thick mucus obstructing the left main stem bronchus. This was suctioned free. We had to remove the scope and clear it once and then replaced the scope. Now the mucus was much less. We were able to suction out all free. Irrigated copiously with 20 mL of saline and sucked this out. Patient had a brief period of desaturation. Bronchoscope was removed. She was briefly bagged and saturations rapidly returned.
[2023-04-02 15:48] LABS: Glucose,Whole Blood 176 mg/dL (70-110)
--- NOTE | 2023-04-02 16:18 | XR ---
EXAMINATION TYPE: XR chest 1V portable DATE OF EXAM: 04/02/2023 4:11 PM CLINICAL INDICATION:Female, 57 years old with history of post bronchoscopy; [facility] COMPARISON: Chest radiographs from same day. TECHNIQUE: XR chest 1V portable Frontal view of the chest. FINDINGS/IMPRESSION: Improved aeration of the left lung compared to immediate prior. There remains large left and small ri ght pleural effusion associated atelectasis. No evidence of pneumothorax.
[2023-04-02 17:15] LABS: Glucose,Whole Blood 162 mg/dL (70-110)
[2023-04-02] MEDS: SYMBICORT 80-4.5 MCG INHALER INHALATION SCH (18:27)
[2023-04-02 20:38] LABS: Glucose,Whole Blood 174 mg/dL (70-110)
[2023-04-03] MEDS: HEPARIN SODIUM,PORCINE 5,000 UNIT/ML 1 ML VIAL SQ SCH ×3 (01:09→17:41)
[2023-04-03] MEDS: AMPICILLIN-SULBACTAM 1.5 GM in SODIUM CHLORIDE 0.9% 50 ML IVPB SCH ×3 (01:09→17:27)
--- NOTE | 2023-04-03 04:11 | P.PN ---
Subjective Progress Note Date: 04/02/23 Patient is a 57-year-old female with a past medical history of hypertension, hyperlipidemia, diabetes type 2, history of CVA/TIA with right-sided weakness, recent history of lung cancer, left upper lobectomy in February 2023, bipolar/depression and currently everyday smoker presents to ER with complaints of difficulty in breathing and chest pain. Patient was recently discharged from the hospital on 03/27/2023. Does have a history of non-small cell lung cancer underwent left upper lobectomy complicated by persistent left lower lobe atelectasis requiring multiple bronchoscopies during recent hospitalization. Valve cultures from 07/22/2022 showed haemophilus influenza. Patient was discharged home on Augmentin. On admission chest x-ray showed similar opacification of the left lung likely secondary to atelectasis and large pleural effusion. No pneumothorax visualized. Small right effusion. EKG showed atrial fibrillation with rapid ventricular response with heart rate 117. Patient is currently not on any anticoagulation. Continued on amiodarone. Laboratory data showed WBC 7.7 hemoglobin 11.9 and platelets 186 ABG showed pH 7.41 pCO2 49 and pO2 105 Sodium 136 potassium 4.5 chloride 99 bicarb is 30 BUN 12 and creatinine 0.47 blood sugar 257 and lactic acid 1.7 and calcium 7.9 ESR not elevated. Troponin x 1 negative and proBNP 3090. Influenza A, B, RSV and COVID-19 PCR not detected. Lung resection on 03/15/2023 with final pathology showing moderate to poorly differentiated pulmonary adenocarcinoma. All margins negative for malignancy. 1 of 3 hilar lymph nodes positive for metastatic carcinoma. 03/30/2023 Patient is seen in follow up today with pulmonary following as well as cardiology and adjustments to medications being done. Home medications reviewed and resumed. CT surgery consulted and discussing with surgery about complete lobectomy of the left. Patient continues with pleural effusions noted and has been started on IV lasix 20mg bid and will continue. Labs reviewed and within normal limits. Will follow up on repeat labs and monitor electrolytes and kidney functions closely. Patient is currently afebrile and denies worsening shortness of breath. Patient is continued on 4L and was sent home on this previously last week. Blood sugars elevated and will continue accuchecks achs and adjust medications accordingly. 03/31/2023 Patient seen and evaluated in follow-up today with pulmonary along with cardiothoracic surgery following. Discussing further about possible complete lobectomy of the left with cardiothoracic. Patient per nursing staff is lethargic and has been receiving scheduled Xanax along with Neurontin and pain medications and will decrease the dose of Xanax admitted as needed as well as decreasing the dose of Neurontin. Patient encouraged to increase activity as tolerated and get up more frequently out of the bed and sit up in the chair and work with physical therapy daily. Blood sugars remained elevated and will adjust and make long acting twice daily and continue with sliding scale. Patient continues on 2-3 L via nasal cannula and weaning FiO2 as tolerated. Patient is currently afebrile denies chest pain or palpitations and denies worsening shortness of breath. Patient continues to use incentive spirometer and needs encouragement to do so. Patient is receiving breathing inhalational treatments as well. 04/01/2023 Patient is seen in follow-up today scheduled to undergo bronchoscopy with pulmonary and cardiothoracic surgery following closely. Chest x-ray ordered for post bronchoscopy which is pending. Patient's blood sugars slightly improved and have added long-acting twice daily along with sliding scale. Encouraged increase activity as tolerated. Patient to be evaluated by physical therapy and would recommend daily. Patient also with incentive spirometer at the bedside encouraged to use at least 10 times every hour while awake. Patient reports not feeling she is having worsening shortness of breath although continues to have shortness of breath. 04/02/2023 Patient seen in follow-up this morning currently nothing by mouth and scheduled to undergo repeat bronchoscopy as follow-up chest x-ray showed near complete opacification on the left as well status post bronchoscopy yesterday. Patient is lethargic but arousable and will adjust the medications again and will discontinue Xanax. Patient worked with physical therapy this patient is significantly weak and has had multiple prolonged hospitalizations would likely be going to [facility] on discharge. Will await clearance from CT surgery pulmonary to discuss discharge planning. Patient is afebrile with no reports of worsening shortness of breath. Patient tolerating diet although given patient's lethargy will recommend aspiration precautions. Review of systems: Constitutional: No reports of fatigue, fever, or chills Cardiovascular: No reports of chest pain or palpitations Respiratory: No reports of worsening shortness of breath or cough GI: No reports of nausea, vomiting, or diarrhea : No reports of dysuria or retention Neurovascular: reports of generalized weakness All medications have been reviewed PHYSICAL EXAMINATION: Patient is sitting up in chair,, asleep but arousable, alert and oriented. Well-developed, well-nourished. Elderly-appearing. obese HEENT: Normocephalic. Neck is supple. Pupils reactive. Nostrils clear. Oral cavity is moist. Neck reveals no JVD, carotid bruits, or thyromegaly. CHEST EXAMINATION: Trachea is central. Symmetrical expansion with weak inspiration. Left basilar diminished sounds. No wheezing or rhonchi. CARDIAC: Normal S1, S2 with no gallops. No murmurs ABDOMEN: Soft. Bowel sounds present. Nontender. No organomegaly. No abdominal bruits. Extremities: Lower extremity trace edema. No clubbing or cyanosis Neurologically awake, alert, oriented x3, right-sided weakness. Able to move extremities while in bed. Skin: No rash or skin lesions. Psychiatric: Cooperative. Non-suicidal, anxious Musculoskeletal: No joint swelling or deformity. Assessment: Worsening shortness of breath secondary to persistent left lower lobe atelectasis/collapse despite multiple bronchoscopies during recent admission and Pleural effusion. Patient is status post 2 bronchoscopies this admission Haemophilus influenza pneumonia. Recent BAL culture showed haemophilus. Paroxysmal atrial fibrillation with rapid ventricular rate. Patient has new onset A-fib on 03/21/2023. Continued on amiodarone. Not on anticoagulation Pulmonary adenocarcinoma with recent left upper lobe resection on 03/15/2023 Acute on chronic hypoxic respiratory failure requiring 3-4 L oxygen via nasal cannula on admission. Patient was at 2 L during recent discharge. Severe tracheal bronchomalacia COPD History of CVA with right-sided weakness Diabetes type 2 Hypertension Hyperlipidemia History of hepatitis B&C History of alcohol abuse and hides abuse Anxiety/depression and PTSD/bipolar. Currently everyday smoker, reports to quitting on last admission obesity with a bmi of 30.8 GI and DVT prophylaxis Plan: Patient will be continued on telemetry monitoring. Continue with amiodarone. Patient is currently not on anticoagulation as per surgical recommendation. CT surgery is on board and discussing about lobectomy. Chest CT ordered and continues to show complete opacification on the left. Patient is scheduled to undergo bronchoscopy again today as follow-up chest x-ray this morning shows near complete opacification on the left and there was noted to be significant mucus plugging and secretions noted on yesterday's bronchoscopy. Repeat chest x-ray ordered for a.m. Continued on IV Lasix 20 mg every 12. Will follow up on repeat labs and monitor electrolytes and kidney functions closely Continue with DuoNebs and Pulmicort with Mucomyst being added Blood sugars remain elevated above improved and have added long-acting to twice daily along with sliding scale. We'll continue to monitor closely. Recommend PT/OT therapy daily as patient has been mostly sitting and laying in bed and has not been up in motivating and walking to the bathroom. Patient was able to walk a few steps in the room today. Case management planning on ECF once stabilized and cleared by consultations Encouraged continued incentive spirometer use at least 10 times every hour while awake Recommend holding [employer] and narcotic agents if patient is lethargic. Medications have been adjusted to lesser dose and Xanax has been discontinued Overall Prognosis is guarded. The impression and plan of care has been dictated by Rahel Crabtree, Nurse Practitioner as directed. Dr. Gay MD I have performed a history and examination and MDM of this patient, discussed the same with the dictator, and agree with the dictator's assessment and plan as written ,documented as a scribe. Based on total visit time, I have performed more than 50% of the visit. Objective - Vital Signs Vital signs: Vital Signs Temp 98.3 F 04/02/23 08:00 Pulse 58 L 04/02/23 08:00 Resp 16 04/02/23 08:00 BP 114/60 04/02/23 08:00 Pulse Ox 92 L 04/02/23 09:13 FiO2 Intake & Output 04/01/23 04/02/23 04/02/23 18:59 06:59 18:59 Intake Total 200 Balance 200 Intake: IV 150 Intake, IV Titration 50 Amount Ampicillin-Sulbactam 1.5 50 gm In Sodium Chloride 0.9 % 50 ml @ 100 mls/hr IVPB Q8HR [facility] Rx#:[id number] Other: Voiding Method Bedside Commode # Voids 1 1 1 - Labs CBC & Chem 7: 04/02/23 05:37 04/02/23 05:37 Labs: Abnormal Lab Results - Last 24 Hours (Table) 04/01/23 04/01/23 04/02/23 Range/Units 12:12 20:19 05:37 RBC 3.42 L (4.10-5.20) X 10*6/uL Hgb 10.4 L (12.0-15.0) g/dL Hct 32.4 L (37.2-46.3) % Chloride (96-109) mmol/L Glucose (70-110) mg/dL POC Glucose (mg/dL) 190 H 235 H (70-110) mg/dL Calcium (8.7-10.3) mg/dL 04/02/23 04/02/23 Range/Units 05:37 06:38 RBC (4.10-5.20) X 10*6/uL Hgb (12.0-15.0) g/dL Hct (37.2-46.3) % Chloride 94 L (96-109) mmol/L Glucose 164 H (70-110) mg/dL POC Glucose (mg/dL) 234 H (70-110) mg/dL Calcium 8.2 L (8.7-10.3) mg/dL
[2023-04-03 05:48] LABS: HCT 35.3 % (34.0-46.0); HGB 11.7 gm/dL (11.4-16.0); Hypochromasia Moderate; MCH 31.4 pg (25.0-35.0); MCHC 33.2 g/dL (31.0-37.0); MCV 94.4 fL (80.0-100.0); Mean Platelet Volume 8.4; Platelet Count 127 k/uL (150-450); Poikilocytosis Moderate; RBC 3.74 m/uL (3.80-5.40); RDW 14.3 % (11.5-15.5); WBC 6.8 k/uL (3.8-10.6)
[2023-04-03 06:20] LABS: Glucose,Whole Blood 151 mg/dL (70-110)
[2023-04-03] MEDS: INSULIN ASPART (NovoLOG) 100 UNIT/ML VIAL SQ SCH ×4 (06:31→20:39)
[2023-04-03] MEDS: INSULIN DETEMIR (LEVEMIR) 100 UNIT/ML SYR SQ SCH ×2 (06:31→20:39)
[2023-04-03] MEDS: FUROSEMIDE 10 MG/ML 2 ML VIAL IV SCH ×2 (06:42→17:27)
--- NOTE | 2023-04-03 07:14 | XR ---
EXAMINATION TYPE: XR chest 2V DATE OF EXAM: 04/03/2023 COMPARISON: 04/02/2023 HISTORY: 57-year-old female with pleural effusion TECHNIQUE: Frontal and lateral views FINDINGS: Ongoing obscuration of the left heart margin. There is ongoing volume loss and near complete white ou t of the left hemithorax which has worsened in the interval. Only minimal lung in the upper left fede thorax remains aerated bowel. Ongoing small right pleural effusion with adjacent right basilar opacit y. IMPRESSION: Ongoing and interval worsening in volume loss and near complete white out of the left hemithorax. Sridevi oing small right pleural effusion with adjacent atelectasis and/or consolidation.
[2023-04-03] MEDS: SENNOSIDES 8.6 MG TAB PO SCH ×2 (08:33→20:40)
[2023-04-03] MEDS: ATORVASTATIN 10 MG TAB PO SCH (08:34)
[2023-04-03] MEDS: FOLIC ACID 1 MG TAB PO SCH (08:34)
[2023-04-03] MEDS: PANTOPRAZOLE 40 MG TABLET PO SCH (08:34)
[2023-04-03] MEDS: THIAMINE 100 MG TAB PO SCH (08:34)
[2023-04-03] MEDS: AMIODARONE 200 MG TAB PO SCH ×2 (08:34→20:40)
[2023-04-03] MEDS: guaiFENesin 600 MG TABLET.ER PO SCH ×2 (08:34→20:40)
[2023-04-03] MEDS: SYMBICORT 80-4.5 MCG INHALER INHALATION SCH ×2 (08:35→17:41)
[2023-04-03] MEDS: GABAPENTIN 400 MG CAP PO SCH ×3 (08:44→20:40)
[2023-04-03] MEDS: HYDROcodone/APAP 5-325MG 1 EACH TAB PO PRN ×2 (08:44→17:41)
[2023-04-03] MEDS: IPRATROPIUM-ALBUTEROL 3 ML NEB INHALATION SCH ×4 (09:12→19:49)
[2023-04-03] MEDS: ACETYLCYSTEINE 800 MG/4 ML VIAL INHALATION SCH ×3 (09:12→19:49)
[2023-04-03 09:55] LABS: BUN/Creat Ratio 15.12 Ratio (12.00-20.00); Blood Urea Nitrogen 12.1 mg/dL (9.0-27.0); Calcium 8.3 mg/dL (8.7-10.3); Carbon Dioxide 31.8 mmol/L (21.6-31.8); Chloride 95 mmol/L (96-109); Glucose 149 mg/dL (70-110); Magnesium 1.5 mg/dL (1.5-2.4); Potassium 4.1 mmol/L (3.5-5.5); Sodium 136 mmol/L (135-145)
[2023-04-03] MEDS ORDERED: IV FLUID CONTINUATION 1,000 ML IV ONE (10:24)
[2023-04-03] MEDS ORDERED: KETAMINE HCL IN 0.9 % NACL 50 MG/5 ML SYRINGE ONE (10:29)
[2023-04-03] MEDS ORDERED: LIDOCAINE 1% INJ 10MG/ML (20 ML MDV) ONE (10:29)
[2023-04-03] MEDS ORDERED: PROPOFOL 10 MG/ML 20 ML VIAL IV ONE (10:29)
[2023-04-03] MEDS ORDERED: LIDOCAINE 2% INJ 20 MG/ML INTRATRACH ONE (10:32)
--- NOTE | 2023-04-03 11:29 | XR ---
EXAMINATION TYPE: XR chest 1V portable DATE OF EXAM: 04/03/2023 Comparison: 04/03/2023 Clinical History: 57-year-old female post bronchoscopy Findings: Ongoing volume loss left hemithorax with underlying moderate to large effusion and extensive pleural- parenchymal opacity. Aeration is improving at the left upper lung. Worsening, now small to moderate r ight pleural effusion with adjacent right basilar opacity. There may be old right-sided thoracotomy c hange or posttraumatic rib deformity. The left heart margin remains obscured. Impression: 1. Redemonstrated extensive pleural parenchymal opacity left hemithorax but with some interval improv ing aeration at the left upper lung. 2. Worsening [id number] right pleural effusion with adjacent atelectasis and/or consolidation.
[2023-04-03] MEDS ORDERED: LORazepam 0.5 MG TAB PO ONE (11:44)
[2023-04-03 12:09] LABS: Glucose,Whole Blood 149 mg/dL (70-110)
--- NOTE | 2023-04-03 13:06 | P.PN ---
Subjective Progress Note Date: 04/03/23 57-year-old female patient with known history of non-small cell lung cancer who underwent a left upper lobe resection and this was complicated by persistent left lower lobe atelectasis requiring multiple bronchoscopies during cardiac hospitalizations without any success in the left lower lobe remained ate lectatic. Several CAT scans were done and the patient continued to have small left-sided pleural effusion with complete atelectatic/consolidated left lower lobe. The third bronchoscopies was done yielded a positive microbial growth of Haemophilus influenza and the patient was kept on Augmentin. She was found to have severe tracheal bronchomalacia, mucus plugging, narrowing of the left lower lobe bronchus orifice which was complicated into her left lower lobe collapse. It's possible also that the left lower lobe was consolidated/infected. The patient did some progress during hospital stay, she was weaned down to 2 L of O2 nasal cannula. However, the left lung remains unchanged. She was discharged home upon request on Augmentin. We will consider getting a completion lobectomy of the left lower lobe based on the persistent atelectasis and failure for reexpansion. However, the patient was quite weak and she was having issues with atrial fibrillation that started during her hospital stay. She was not placed on any anticoagulants. She was placed on amiodarone. She was discharged home on O2 at 2 L. She is coming back with worsening shortness of breath. She was in A. fib. Slightly tachycardic. Chest x-ray is unchanged. The white cell count remains low at 7.7 with a hemoglobin of 11.9. Blood gas on 36% FiO2 showed a pH of 7.41 with episodes of 49 and pO2 of 105. The BUN is at 12 with a creatinine of 0.4 and sodium levels of 139. ProBNP level was elevated. The viral screen was negative. Echo was done during her earlier hospitalization that showed a preserved LV function with an ejection fraction of 55%. The patient's final pathology was consistent with moderate/poorly differentiated pulmonary adenocarcinoma. The tumor size was 1.5 cm. This was located left upper lobe. The patient had 1 lymph node in the hilum that was positive. The rest of the lymph nodes involving the station 10, 6, 11, 9, 7 and 5 were all negative. As such, the patient was given a [id number] disease. The patient is seen today 03/30/2023 in follow-up on the regular medical floor. She is currently awake and alert in no acute distress. Sitting up in a chair at the bedside. She is having ongoing issues with some shortness of breath and left-sided chest discomfort. She also has complaints of anxiety. She is currently maintaining O2 saturations in the high 90s on 4 L/m per nasal cannula. She's afebrile. Hemodynamically stable. White count 9.9. Hemoglobin 10.9. Platelets 186. Sodium 141 potassium 5.1. Bicarb 33. BUN 9. Creatinine 0.7. Glucose 221. She is continued on DuoNeb inhalations, Symbicort, IV diuretics. Heparin for DVT prophylaxis. Antibiotics in the form of Augmentin. The patient seen today 03/31/2023 in follow-up on the regular medical floor. She is awake and somewhat drowsy in no acute distress. Maintaining O2 saturations up to 100% on 3 L/m per nasal cannula. She's been afebrile. Hemodynamically stable. Computed tomography scan of the chest revealed increased consolidation and collapse of the left lower lobe with essentially no residual aerated lung seen. Small to moderate size left pleural effusion however pneumothorax component of this has essentially resolved. Small mucous secretions along the tracheal wall and thoracic inlet. Right hilar adenopathy likely present on prior unenhanced study and suspected unchanged. Moderate right pleural effusions. Previous right upper lobe groundglass infiltrates have resolved. Today's chest x-ray reveals similar opacification of the left lung likely secondary to atelectasis and large pleural effusion. No pneumothorax visualized. Enlarging right pleural effusion now small to moderate. White count 9.2. Hemoglobin 10.6. Platelets 160. Sodium 136. Potassium 4.1. Bicarb 30. BUN 10. Creatinine 0.8. Glucose 218. Remains on Symbicort, DuoNeb inhalations, IV diuretics. Heparin for DVT prophylaxis. Antibiotics in the form of Unasyn. Increased encouragement regarding the use of the incentive spirometer and increased activity. Patient was evaluated today on 04/01/23, a is basically about the same, patient was seen by thoracic surgery and she was told that she will undergo bronchoscopy today. Patient is comfortable, chest x-ray all along has been showing complete opacification of the left lung, hopefully this bronchoscopy would be better than previous bronchoscopy and more beneficial however considering the patient already had 4 bronchoscopies and did not improve her lung condition, I doubt that this will. However this bronchoscopy is being done by thoracic surgery/Dr. June The patient is seen today 04/02/2023 in follow-up on the regular medical floor. She is currently sitting up in a chair. Awake and alert in no acute distress. She is maintaining good O2 saturations in the 90s on 2 L/m per nasal cannula. White count 8.1. Hemoglobin 10.4. Platelets 160. Sodium 135. Potassium 3.8. Bicarb 32. BUN 13. Creatinine 0.7. Glucose 164. Chest x-ray continues to show similar opacification of left lung will occur rectal secondary to atelectas is and large pleural effusion. No pneumothorax visualized. Enlarging right pleural effusion now small to moderate. She did undergo bronchoscopy yesterday with Dr. June and the plan is to return for another bronchoscopy again today. She is continued on DuoNeb inhalations, Symbicort, Mucinex, Mucomyst, antibiotics in the form of Unasyn. Heparin for DVT prophylaxis. The patient is seen today 04/03/2023 in follow-up on the regular medical floor. She is currently sitting up in a chair at the bedside. Awake and alert in no acute distress. She is maintaining good O2 saturations in the 90s on 2 L/m per nasal cannula. Blood cultures reveal no growth. White count 6.8. Hemoglobin 11.7. Platelets 127. Sodium 136. Potassium 4.1. Bicarb 32. BUN 12. Creatinine 0.8. Glucose 149. Remains on antibiotics in the form of Unasyn. Continued on bronchodilators, Mucomyst, Mucinex. Continued on IV diuretics. Heparin for DVT prophylaxis. Objective - Vital Signs Vital signs: Vital Signs Temp 97.5 F L 04/03/23 07:21 Pulse 59 L 04/03/23 12:07 Resp 18 04/03/23 07:21 BP 122/55 04/03/23 07:21 Pulse Ox 94 L 04/03/23 09:16 FiO2 30 04/03/23 11:06 Intake & Output 04/02/23 04/03/23 04/03/23 18:59 06:59 18:59 Intake Total 828 50 Balance 828 50 Intake: IV 350 50 Oral 478 Other: Voiding Method Bedside Commode Bedside Commode # Voids 2 2 # Bowel Movements 1 - Exam GENERAL EXAM: Awake, 57-year-old female, on 3 L nasal cannula, sitting up in a chair, comfortable in no apparent distress. HEAD: Normocephalic. EYES: Normal reaction of pupils, equal size. NOSE: Clear with pink turbinates. THROAT: No erythema or exudates. NECK: No masses, no JVD. CHEST: No chest wall deformity. Previous surgical incision dry and intact LUNGS: Equal air entry with scattered crackles in the bases left greater than right. Diminished in the left lung. CVS: S1 and S2 normal with no audible murmur, regular rhythm. ABDOMEN: No hepatosplenomegaly, normal bowel sounds, no guarding or rigidity. SPINE: No scoliosis or deformity SKIN: No rashes CENTRAL NERVOUS SYSTEM: No focal deficits, tone is normal in all 4 extremities. EXTREMITIES: There is no peripheral edema. No clubbing, no cyanosis. Peripheral pulses are intact. - Labs CBC & Chem 7: 04/03/23 05:21 04/03/23 05:21 Labs: Abnormal Lab Results - Last 24 Hours (Table) 04/02/23 04/02/23 04/02/23 Range/Units 15:40 17:13 20:37 RBC (3.80-5.40) m/uL Plt Count (150-450) k/uL Chloride (96-109) mmol/L Glucose (70-110) mg/dL POC Glucose (mg/dL) 176 H 162 H 174 H (70-110) mg/dL Calcium (8.7-10.3) mg/dL 04/03/23 04/03/23 04/03/23 Range/Units 05:21 05:21 06:19 RBC 3.74 L (3.80-5.40) m/uL Plt Count 127 L (150-450) k/uL Chloride 95 L (96-109) mmol/L Glucose 149 H (70-110) mg/dL POC Glucose (mg/dL) 151 H (70-110) mg/dL Calcium 8.3 L (8.7-10.3) mg/dL 04/03/23 Range/Units 12:08 RBC (3.80-5.40) m/uL Plt Count (150-450) k/uL Chloride (96-109) mmol/L Glucose (70-110) mg/dL POC Glucose (mg/dL) 149 H (70-110) mg/dL Calcium (8.7-10.3) mg/dL Microbiology - Last 24 Hours (Table) 04/01/23 10:48 Gram Stain - Preliminary Sputum Assessment and Plan Assessment: Acute on chronic shortness of breath without any worsening in her hypoxemia. The patient's shortness of breath is multifactorial. Obviously she has undergone a left upper lobe resection. She has also complete atelectasis of left lower lobe and several attempts to reexpand the lung on the left has failed as the patient has significant tracheal bronchomalacia, mucus, Haemophilus influenza pneumonia and narrowing of the left lower lobe orifice as noted on several bronchoscopies. The left lung remains unchanged. The acute decomp ensation could be related to A. fib which is paroxysmal and the patient may have some interval worsening in her volume status. As such, the patient was hospitalized. ProBNP level is elevated. Remains on IV diuretics. Persistent left lower lobe atelectasis. Computed tomography scan of the chest 03/30/2023 revealed increased consolidation and collapse of the left lower lobe with essentially no residual aerated lung seen. Small to moderate size left pleural effusion however pneumothorax component of this has essentially resolved. Small mucous secretions along the tracheal wall and thoracic inlet. Right hilar adenopathy likely present on prior unenhanced study and suspected unchanged. Moderate right pleural effusions. Previous right upper lobe groundglass infiltrates have resolved. Pulmonary adenocarcinoma with a 1.5 cm mass in the left upper lobe. On 03/15/2023 she had undergone a robotically assisted thoracoscopic left upper lobectomy with mediastinal lymph node dissection, for early stage NSCLC. The final pathologic staging is T1b N1 M0 disease. Left lung collapse, essentially the left lower lobe secondary to mucous plugs. Bronchoscopy was done during the earlier hospitalization the patient was found to have mucous plugs, significant tracheal bronchomalacia, narrowing of the left lower lobe bronchial orifice. There is only a small left-sided pleural effusion and the left lung base. Currently on Unasyn. Plan is for daily bronchoscopy per CT services and placed on BiPAP today. Acute hypoxic respiratory failure currently on 2 L of oxygen nasal cannula, pulse ox 92% Tracheobronchomalacia, severe Paroxysmal atrial fibrillation. No anticoagulants per surgical recommendations. Patient is currently in sinus rhythm with amiodarone 400 mg by mouth twice a day History of chronic obstructive pulmonary disease Chronic tobacco dependence History of CVA History of diabetes mellitus History of hypertension History of hyperlipidemia History of alcohol abuse and heroin abuse History of hepatitis B and C Plan: The patient was seen and evaluated Chest x-ray, medications and labs reviewed Patient did undergo bronchoscopy today by CT services Plan is for bronchoscopy daily until left lung expands Initiated on BiPAP We will continue to follow I have personally seen and examined the patient, performed the documentation and the assessment and plan as written. Number of minutes spent on the visit: 10.
[2023-04-03] MEDS ORDERED: Magnesium Replacement Protocol 1 EACH MISC MISCELLANE PRN (17:01)
[2023-04-03 17:03] LABS: Glucose,Whole Blood 269 mg/dL (70-110)
--- NOTE | 2023-04-03 17:04 | P.PN ---
Subjective Progress Note Date: 04/03/23 Patient is a 57-year-old female with a past medical history of hypertension, hyperlipidemia, diabetes type 2, history of CVA/TIA with right-sided weakness, recent history of lung cancer, left upper lobectomy in February 2023, bipolar/depression and currently everyday smoker presents to ER with complaints of difficulty in breathing and chest pain. Patient was recently discharged from the hospital on 03/27/2023. Does have a history of non-small cell lung cancer underwent left upper lobectomy complicated by persistent left lower lobe atelectasis requiring multiple bronchoscopies during recent hospitalization. Valve cultures from 07/22/2022 showed haemophilus influenza. Patient was discharged home on Augmentin. On admission chest x-ray showed similar opacification of the left lung likely secondary to atelectasis and large pleural effusion. No pneumothorax visualized. Small right effusion. EKG showed atrial fibrillation with rapid ventricular response with heart rate 117. Patient is currently not on any anticoagulation. Continued on amiodarone. Laboratory data showed WBC 7.7 hemoglobin 11.9 and platelets 186 ABG showed pH 7.41 pCO2 49 and pO2 105 Sodium 136 potassium 4.5 chloride 99 bicarb is 30 BUN 12 and creatinine 0.47 blood sugar 257 and lactic acid 1.7 and calcium 7.9 ESR not elevated. Troponin x 1 negative and proBNP 3090. Influenza A, B, RSV and COVID-19 PCR not detected. Lung resection on 03/15/2023 with final pathology showing moderate to poorly differentiated pulmonary adenocarcinoma. All margins negative for malignancy. 1 of 3 hilar lymph nodes positive for metastatic carcinoma. 03/30/2023 Patient is seen in follow up today with pulmonary following as well as car diology and adjustments to medications being done. Home medications reviewed and resumed. CT surgery consulted and discussing with surgery about complete lobectomy of the left. Patient continues with pleural effusions noted and has been started on IV lasix 20mg bid and will continue. Labs reviewed and within normal limits. Will follow up on repeat labs and monitor electrolytes and kidney functions closely. Patient is currently afebrile and denies worsening shortness of breath. Patient is continued on 4L and was sent home on this previously last week. Blood sugars elevated and will continue accuchecks achs and adjust medications accordingly. 03/31/2023 Patient seen and evaluated in follow-up today with pulmonary along with cardiothoracic surgery following. Discussing further about possible complete lobectomy of the left with cardiothoracic. Patient per nursing staff is lethargic and has been receiving scheduled Xanax along with Neurontin and pain medications and will decrease the dose of Xanax admitted as needed as well as decreasing the dose of Neurontin. Patient encouraged to increase activity as tolerated and get up more frequently out of the bed and sit up in the chair and work with physical therapy daily. Blood sugars remained elevated and will adjust and make long acting twice daily and continue with sliding scale. Patient continues on 2-3 L via nasal cannula and weaning FiO2 as tolerated. Patient is currently afebrile denies chest pain or palpitations and denies worsening shortness of breath. Patient continues to use incentive spirometer and needs encouragement to do so. Patient is receiving breathing inhalational treatments as well. 04/01/2023 Patient is seen in follow-up today scheduled to undergo bronchoscopy with pulmonary and cardiothoracic surgery following closely. Chest x-ray ordered for post bronchoscopy which is pending. Patient's blood sugars slightly improved and have added long-acting twice daily along with sliding scale. Encouraged increase activity as tolerated. Patient to be evaluated by physical therapy and would recommend daily. Patient also with incentive spirometer at the bedside encouraged to use at least 10 times every hour while awake. Patient reports not feeling she is having worsening shortness of breath although continues to have shortness of breath. 04/02/2023 Patient seen in follow-up this morning currently nothing by mouth and scheduled to undergo repeat bronchoscopy as follow-up chest x-ray showed near complete opacification on the left as well status post bronchoscopy yesterday. Patient is lethargic but arousable and will adjust the medications again and will discontinue Xanax. Patient worked with physical therapy this patient is significantly weak and has had multiple prolonged hospitalizations would likely be going to [facility] on discharge. Will await clearance from CT surgery pulmonary to discuss discharge planning. Patient is afebrile with no reports of worsening shortness of breath. Patient tolerating diet although given patient's lethargy will recommend aspiration precautions. 04/03/2023 Patient is evaluated today sitting up in the chair, currently wearing BiPAP. Patient underwent bronchoscopy today with Dr. Oshea pending surgical report. Chest xray reveals extensive pleural parenchymal opacity left hemithorax some interval improvement of the aeration of the left lung. Worsening small - to moderate right pleural effusion with adjacent atelectasis and or consolidation. Patient continues on IV lasix 20 mg IV Q12h. Magnesium today 1.5. Review of systems: Constitutional: No reports of fatigue, fever, or chills Cardiovascular: No reports of chest pain or palpitations Respiratory: No reports of worsening shortness of breath or cough GI: No reports of nausea, vomiting, or diarrhea : No reports of dysuria or retention Neurovascular: reports of generalized weakness All medications have been reviewed PHYSICAL EXAMINATION: Patient is sitting up in chair,, asleep but arousable, alert and oriented. Well-developed, well-nourished. Elderly-appearing. obese HEENT: Normocephalic. Neck is supple. Pupils reactive. Nostrils clear. Oral cavity is moist. Neck reveals no JVD, carotid bruits, or thyromegaly. CHEST EXAMINATION: Trachea is central. Symmetrical expansion with weak inspiration. Left basilar diminished sounds. No wheezing or rhonchi. CARDIAC: Normal S1, S2 with no gallops. No murmurs ABDOMEN: Soft. Bowel sounds present. Nontender. No organomegaly. No abdominal bruits. Extremities: Lower extremity trace edema. No clubbing or cyanosis Neurologically awake, alert, oriented x3, right-sided weakness. Able to move extremities while in bed. Skin: No rash or skin lesions. Psychiatric: Cooperative. Non-suicidal, anxious Musculoskeletal: No joint swelling or deformity. Assessment: Worsening shortness of breath secondary to persistent left lower lobe atelectasis/collapse despite multiple bronchoscopies during recent admission and Pleural effusion. Patient is status post 2 bronchoscopies this admission Haemophilus influenza pneumonia. Recent BAL culture showed haemophilus. Paroxysmal atrial fibrillation with rapid ventricular rate. Patient has new onset A-fib on 03/21/2023. Continued on amiodarone. Not on anticoagulation Pulmonary adenocarcinoma with recent left upper lobe resection on 03/15/2023 Acute on chronic hypoxic respiratory failure requiring 3-4 L oxygen via nasal cannula on admission. Patient was at 2 L during recent discharge. Severe tracheal bronchomalacia COPD History of CVA with right-sided weakness Diabetes type 2 Hypertension Hyperlipidemia History of hepatitis B&C History of alcohol abuse and hides abuse Anxiety/depression and PTSD/bipolar. Currently everyday smoker, reports to quitting on last admission obesity with a bmi of 30.8 GI and DVT prophylaxis Plan: Patient will be continued on telemetry monitoring. Continue with amiodarone. Patient is currently not on anticoagulation as per surgical recommendation. CT surgery is on board and discussing about lobectomy. Chest CT ordered and continues to show complete opacification on the left. Follow-up chest x-ray shows near complete opacification on the left and there was noted to be significant mucus plugging and secretions noted on yesterday's bronchoscopy. Patient underwent bronchoscopy today. Operative notes pending. Continued on IV Lasix 20 mg every 12. Will follow up on repeat labs and monitor electrolytes and kidney functions closely Continue with DuoNebs and Pulmicort with Mucomyst being added Blood sugars remain elevated above improved and have added long-acting to twice daily along with sliding scale. We'll continue to monitor closely. Recommend PT/OT therapy daily as patient has been mostly sitting and laying in bed and has not been up in motivating and walking to the bathroom. Patient was able to walk a few steps in the room today. Case management planning on ECF once stabilized and cleared by consultations Encouraged continued incentive spirometer use at least 10 times every hour while awake Recommend holding [employer] and narcotic agents if patient is lethargic. Medications have been adjusted to lesser dose and Xanax has been discontinued Overall Prognosis is guarded. The impression and plan of care has been dictated by Joana Diaz, Nurse Practitioner as directed. Dr. Gay MD I have performed a history and physical examination and medical decision making of this patient, discussed the same with the dictator, and agree with the dictators assessment and plan as written, documented as a scribe. Based on total visit time, I have performed more than 50% of this visit. Objective - Vital Signs Vital signs: Vital Signs Temp 97.5 F L 04/03/23 07:21 Pulse 54 L 04/03/23 09:28 Resp 18 04/03/23 07:21 BP 122/55 04/03/23 07:21 Pulse Ox 94 L 04/03/23 09:16 FiO2 Intake & Output 04/02/23 04/03/23 04/03/23 18:59 06:59 18:59 Intake Total 828 Balance 828 Intake: IV 350 Oral 478 Other: Voiding Method Bedside Commode # Voids 2 2 # Bowel Movements 1 - Labs CBC & Chem 7: 04/03/23 05:21 04/03/23 05:21 Labs: Abnormal Lab Results - Last 24 Hours (Table) 04/02/23 04/02/23 04/02/23 Range/Units 12:03 15:40 17:13 RBC (3.80-5.40) m/uL Plt Count (150-450) k/uL Chloride (96-109) mmol/L Glucose (70-110) mg/dL POC Glucose (mg/dL) 289 H 176 H 162 H (70-110) mg/dL Calcium (8.7-10.3) mg/dL 04/02/23 04/03/23 04/03/23 Range/Units 20:37 05:21 05:21 RBC 3.74 L (3.80-5.40) m/uL Plt Count 127 L (150-450) k/uL Chloride 95 L (96-109) mmol/L Glucose 149 H (70-110) mg/dL POC Glucose (mg/dL) 174 H (70-110) mg/dL Calcium 8.3 L (8.7-10.3) mg/dL 04/03/23 Range/Units 06:19 RBC (3.80-5.40) m/uL Plt Count (150-450) k/uL Chloride (96-109) mmol/L Glucose (70-110) mg/dL POC Glucose (mg/dL) 151 H (70-110) mg/dL Calcium (8.7-10.3) mg/dL Microbiology - Last 24 Hours (Table) 04/01/23 10:48 Gram Stain - Preliminary Sputum
[2023-04-03] MEDS: MAGNESIUM SULFATE-D5W PMX 1 GM in DEXTROSE/WATER 1 100ML.BAG IVPB SCH ×2 (17:28→17:43)
[2023-04-03 20:27] LABS: Glucose,Whole Blood 305 mg/dL (70-110)
[2023-04-04] MEDS: HEPARIN SODIUM,PORCINE 5,000 UNIT/ML 1 ML VIAL SQ SCH ×4 (00:36→23:34)
[2023-04-04] MEDS: AMPICILLIN-SULBACTAM 1.5 GM in SODIUM CHLORIDE 0.9% 50 ML IVPB SCH ×4 (00:36→23:34)
[2023-04-04] MEDS: FUROSEMIDE 10 MG/ML 2 ML VIAL IV SCH ×2 (05:35→17:01)
[2023-04-04 05:50] LABS: African American GFR (CKD) >90 (>60 ml/min/1.73 sqM); Anion Gap 7 mmol/L; Blood Urea Nitrogen 13 mg/dL (7-17); Calcium 8.1 mg/dL (8.4-10.2); Carbon Dioxide 31 mmol/L (22-30); Chloride 97 mmol/L (98-107); Glucose 154 mg/dL (74-99); Magnesium 1.8 mg/dL (1.6-2.3); Non-African American GFR(CKD) >90 (>60 ml/min/1.73 sqM); Sodium 135 mmol/L (137-145)
[2023-04-04 06:01] LABS: Glucose,Whole Blood 149 mg/dL (70-110)
[2023-04-04 06:07] LABS: Potassium 4.6 mmol/L (3.5-5.1)
[2023-04-04] MEDS: INSULIN DETEMIR (LEVEMIR) 100 UNIT/ML SYR SQ SCH ×2 (06:07→20:44)
[2023-04-04] MEDS: INSULIN ASPART (NovoLOG) 100 UNIT/ML VIAL SQ SCH ×6 (06:07→20:44)
[2023-04-04] MEDS ORDERED: LIDOCAINE 2% INJ 20 MG/ML INTRATRACH ONE ×2 (07:28→08:02)
[2023-04-04] MEDS: SYMBICORT 80-4.5 MCG INHALER INHALATION SCH ×2 (07:29→12:55)
[2023-04-04] MEDS ORDERED: KETAMINE HCL IN 0.9 % NACL 50 MG/5 ML SYRINGE ONE (07:55)
[2023-04-04] MEDS ORDERED: LIDOCAINE 1% INJ 10MG/ML (20 ML MDV) ONE (07:55)
[2023-04-04] MEDS ORDERED: MIDAZOLAM 2 MG/2 ML VIAL ONE (07:55)
[2023-04-04] MEDS ORDERED: PROPOFOL 10 MG/ML 20 ML VIAL IV ONE (07:55)
[2023-04-04] MEDS ORDERED: IV FLUID CONTINUATION 1,000 ML IV ONE (07:55)
--- NOTE | 2023-04-04 08:16 | P.OP ---
Date of Procedure: 04/04/23 Preoperative Diagnosis: Mucus plugging left main stem bronchus Postoperative Diagnosis: Same Procedure(s) Performed: Fiberoptic bronchoscopy with removal of mucous and bronchial lavage Anesthesia: MAC Surgeon: Beka June Pathology: none sent Disposition: floor Indications for Procedure: Status post left upper lobectomy with persistent recurrent mucus plugging of left mainstem bronchus and subsequent atelectasis of the left lower lobe Operative Findings: Tenacious white sputum present in both the left and right mainstem bronchial and distal trachea. This was suctioned free. There was considerable irritation of the endobronchial mucosa from the repeated bronchoscopy. Description of Procedure: Patient was brought to the endoscopy suite and IV sedation was given. Patient was placed supine and the bronchoscope was introduced through the mouth. The vocal cords were anesthetized with lidocaine. Bronchoscope was advanced into the endobronchial tree. Endobronchial tree was cleared of mucus with suctioning. We then irrigated out the endobronchial tree was several 20 mL aliquots of normal saline. This was suctioned free. Bronchoscope was removed.
--- NOTE | 2023-04-04 08:20 | P.OP ---
Date of Procedure: 04/03/23 Preoperative Diagnosis: Mucus plugging left mainstem bronchus Postoperative Diagnosis: Same Procedure(s) Performed: Fiberoptic bronchoscopy with clearing of mucous and endobronchial lavage Anesthesia: MAC Surgeon: Beka June Pathology: none sent Condition: stable Disposition: floor Indications for Procedure: 57-year-old female who is status post left upper lobectomy. Postoperatively she developed recurrent obstruction of the left mainstem bronchus with tenacious mucus. Serial bronchoscopy has been necessary. Operative Findings: I was plugging of the left mainstem bronchus with very thick yellow sputum plug. This would not suction up the suction port of the interventional scope and had to be removed by pulling the scope out with the mucous plug at the end of the scope with the suction. Once the endobronchial tree was completely freed of mucus, performed endobronchial lavage. There was considerable irritation of the endobronchial mucosa from the repeated bronchoscopy. The airway was hypercollapsible. Description of Procedure: Patient was brought to the endoscopy suite. It IV sedation was given. She was turned supine and the interventional bronchoscope was passed through the mouth to the level of the cords. The cords were anesthetized with lidocaine. Scope was passed into the endobronchial tree. There was dense thick mucus completely filling the left mainstem bronchus. This was yellowish in color. It was suctioned free. Once we had cleared the left mainstem bronchus we completely explored the endobronchial tree suctioning out all the sputum we could find. We then performed an endobronchial lavage with 20 mL of saline. This was suctioned free. Scope was then removed. Patient tolerated the procedure well.
--- NOTE | 2023-04-04 08:41 | XR ---
EXAMINATION TYPE: XR chest 1V portable DATE OF EXAM: 04/04/2023 Comparison: 04/03/2023 Clinical History: 57-year-old female post bronch Findings: Near complete white out of left hemithorax with only a small portion of the left upper lung aerated. Aeration slightly worsened from prior exam. Ongoing small to moderate right pleural effusion. Interst itial density right lung persists. Impression: 1. Near complete white out of the left hemithorax, aeration worsening from yesterday. A small portion of the left upper lung remains aerated now. 2. Ongoing small to moderate right effusion with adjacent atelectasis and/or consolidation.
[2023-04-04] MEDS: IPRATROPIUM-ALBUTEROL 3 ML NEB INHALATION SCH ×4 (09:06→21:32)
[2023-04-04] MEDS: ACETYLCYSTEINE 800 MG/4 ML VIAL INHALATION SCH ×3 (09:06→21:31)
[2023-04-04] MEDS: guaiFENesin 600 MG TABLET.ER PO SCH ×2 (09:23→20:44)
[2023-04-04] MEDS: GABAPENTIN 400 MG CAP PO SCH ×3 (09:23→20:45)
[2023-04-04] MEDS: AMIODARONE 200 MG TAB PO SCH ×2 (09:24→20:44)
[2023-04-04] MEDS: PANTOPRAZOLE 40 MG TABLET PO SCH (09:24)
[2023-04-04] MEDS: SENNOSIDES 8.6 MG TAB PO SCH ×2 (09:24→20:44)
[2023-04-04] MEDS: FOLIC ACID 1 MG TAB PO SCH (09:24)
[2023-04-04] MEDS: methylPREDNISolone SOD SUCCI 125 MG/2 ML VIAL IV SCH ×2 (09:24→20:45)
[2023-04-04] MEDS: ATORVASTATIN 10 MG TAB PO SCH (09:24)
[2023-04-04] MEDS: THIAMINE 100 MG TAB PO SCH (09:24)
[2023-04-04] MEDS: HYDROcodone/APAP 5-325MG 1 EACH TAB PO PRN ×2 (09:36→20:52)
[2023-04-04 12:15] LABS: Glucose,Whole Blood 228 mg/dL (70-110)
--- NOTE | 2023-04-04 12:20 | P.PN ---
Subjective Progress Note Date: 04/04/23 57-year-old female patient with known history of non-small cell lung cancer who underwent a left upper lobe resection and this was complicated by persistent left lower lobe atelectasis requiring multiple bronchoscopies during cardiac hospitalizations without any success in the left lower lobe remained ate lectatic. Several CAT scans were done and the patient continued to have small left-sided pleural effusion with complete atelectatic/consolidated left lower lobe. The third bronchoscopies was done yielded a positive microbial growth of Haemophilus influenza and the patient was kept on Augmentin. She was found to have severe tracheal bronchomalacia, mucus plugging, narrowing of the left lower lobe bronchus orifice which was complicated into her left lower lobe collapse. It's possible also that the left lower lobe was consolidated/infected. The patient did some progress during hospital stay, she was weaned down to 2 L of O2 nasal cannula. However, the left lung remains unchanged. She was discharged home upon request on Augmentin. We will consider getting a completion lobectomy of the left lower lobe based on the persistent atelectasis and failure for reexpansion. However, the patient was quite weak and she was having issues with atrial fibrillation that started during her hospital stay. She was not placed on any anticoagulants. She was placed on amiodarone. She was discharged home on O2 at 2 L. She is coming back with worsening shortness of breath. She was in A. fib. Slightly tachycardic. Chest x-ray is unchanged. The white cell count remains low at 7.7 with a hemoglobin of 11.9. Blood gas on 36% FiO2 showed a pH of 7.41 with episodes of 49 and pO2 of 105. The BUN is at 12 with a creatinine of 0.4 and sodium levels of 139. ProBNP level was elevated. The viral screen was negative. Echo was done during her earlier hospitalization that showed a preserved LV function with an ejection fraction of 55%. The patient's final pathology was consistent with moderate/poorly differentiated pulmonary adenocarcinoma. The tumor size was 1.5 cm. This was located left upper lobe. The patient had 1 lymph node in the hilum that was positive. The rest of the lymph nodes involving the station 10, 6, 11, 9, 7 and 5 were all negative. As such, the patient was given a [id number] disease. The patient is seen today 03/30/2023 in follow-up on the regular medical floor. She is currently awake and alert in no acute distress. Sitting up in a chair at the bedside. She is having ongoing issues with some shortness of breath and left-sided chest discomfort. She also has complaints of anxiety. She is currently maintaining O2 saturations in the high 90s on 4 L/m per nasal cannula. She's afebrile. Hemodynamically stable. White count 9.9. Hemoglobin 10.9. Platelets 186. Sodium 141 potassium 5.1. Bicarb 33. BUN 9. Creatinine 0.7. Glucose 221. She is continued on DuoNeb inhalations, Symbicort, IV diuretics. Heparin for DVT prophylaxis. Antibiotics in the form of Augmentin. The patient seen today 03/31/2023 in follow-up on the regular medical floor. She is awake and somewhat drowsy in no acute distress. Maintaining O2 saturations up to 100% on 3 L/m per nasal cannula. She's been afebrile. Hemodynamically stable. Computed tomography scan of the chest revealed increased consolidation and collapse of the left lower lobe with essentially no residual aerated lung seen. Small to moderate size left pleural effusion however pneumothorax component of this has essentially resolved. Small mucous secretions along the tracheal wall and thoracic inlet. Right hilar adenopathy likely present on prior unenhanced study and suspected unchanged. Moderate right pleural effusions. Previous right upper lobe groundglass infiltrates have resolved. Today's chest x-ray reveals similar opacification of the left lung likely secondary to atelectasis and large pleural effusion. No pneumothorax visualized. Enlarging right pleural effusion now small to moderate. White count 9.2. Hemoglobin 10.6. Platelets 160. Sodium 136. Potassium 4.1. Bicarb 30. BUN 10. Creatinine 0.8. Glucose 218. Remains on Symbicort, DuoNeb inhalations, IV diuretics. Heparin for DVT prophylaxis. Antibiotics in the form of Unasyn. Increased encouragement regarding the use of the incentive spirometer and increased activity. Patient was evaluated today on 04/01/23, a is basically about the same, patient was seen by thoracic surgery and she was told that she will undergo bronchoscopy today. Patient is comfortable, chest x-ray all along has been showing complete opacification of the left lung, hopefully this bronchoscopy would be better than previous bronchoscopy and more beneficial however considering the patient already had 4 bronchoscopies and did not improve her lung condition, I doubt that this will. However this bronchoscopy is being done by thoracic surgery/Dr. June The patient is seen today 04/02/2023 in follow-up on the regular medical floor. She is currently sitting up in a chair. Awake and alert in no acute distress. She is maintaining good O2 saturations in the 90s on 2 L/m per nasal cannula. White count 8.1. Hemoglobin 10.4. Platelets 160. Sodium 135. Potassium 3.8. Bicarb 32. BUN 13. Creatinine 0.7. Glucose 164. Chest x-ray continues to show similar opacification of left lung will occur rectal secondary to atelectas is and large pleural effusion. No pneumothorax visualized. Enlarging right pleural effusion now small to moderate. She did undergo bronchoscopy yesterday with Dr. June and the plan is to return for another bronchoscopy again today. She is continued on DuoNeb inhalations, Symbicort, Mucinex, Mucomyst, antibiotics in the form of Unasyn. Heparin for DVT prophylaxis. The patient is seen today 04/03/2023 in follow-up on the regular medical floor. She is currently sitting up in a chair at the bedside. Awake and alert in no acute distress. She is maintaining good O2 saturations in the 90s on 2 L/m per nasal cannula. Blood cultures reveal no growth. White count 6.8. Hemoglobin 11.7. Platelets 127. Sodium 136. Potassium 4.1. Bicarb 32. BUN 12. Creatinine 0.8. Glucose 149. Remains on antibiotics in the form of Unasyn. Continued on bronchodilators, Mucomyst, Mucinex. Continued on IV diuretics. Heparin for DVT prophylaxis. The patient is seen today 04/04/2023 in follow-up on the regular medical floor. She did utilize BiPAP through the night / and 30% FiO2. Otherwise utilizing oxygen at 3 L/m per nasal cannula. She did undergo another bronchoscopy with BAL per CT services today. Chest x-ray continues to show near complete white out of the left hemithorax. Small portion left upper lung mass remains aerated now. Ongoing small to moderate right effusion with adjacent atelectasis. She is encouraged regarding increased use the incentive spirometer. Increase activity as tolerated. Remains on antibiotics in the form of Unasyn. Remains on Symbicort, DuoNeb inhalations, Solu-Medrol, Mucinex and Mucomyst. Heparin for DVT prophylaxis. Remains on IV diuretics. Sodium 135. Potassium 4.6. Bicarb 31. BUN 13. Creatinine 0.55. Glucose 154. ProBNP 2910. Objective - Vital Signs Vital signs: Vital Signs Temp 98.1 F 04/04/23 08:00 Pulse 68 04/04/23 12:00 Resp 28 H 04/04/23 09:04 BP 126/54 04/04/23 09:04 Pulse Ox 93 L 04/04/23 09:04 FiO2 30 04/04/23 05:04 Intake & Output 04/03/23 04/04/23 04/04/23 18:59 06:59 18:59 Intake Total 50 400 Balance 50 400 Intake: IV 50 400 Other: Voiding Method Bedside Commode Bedside Commode Bedside Commode # Voids 2 # Bowel Movements 1 - Exam GENERAL EXAM: Awake, 57-year-old female, on 3 L nasal cannula, alternating with BiPAP, comfortable in no apparent distress. HEAD: Normocephalic. EYES: Normal reaction of pupils, equal size. NOSE: Clear with pink turbinates. THROAT: No erythema or exudates. NECK: No masses, no JVD. CHEST: No chest wall deformity. LUNGS: Equal air entry with scattered crackles in the bases left greater than right. Diminished in the left lung. CVS: S1 and S2 normal with no audible murmur, regular rhythm. ABDOMEN: No hepatosplenomegaly, normal bowel sounds, no guarding or rigidity. SPINE: No scoliosis or deformity SKIN: No rashes CENTRAL NERVOUS SYSTEM: No focal deficits, tone is normal in all 4 extremities. EXTREMITIES: There is no peripheral edema. No clubbing, no cyanosis. Peripheral pulses are intact. - Labs CBC & Chem 7: 04/03/23 05:21 04/04/23 05:21 Labs: Abnormal Lab Results - Last 24 Hours (Table) 04/03/23 04/03/23 04/03/23 Range/Units 12:08 17:01 20:25 Sodium (137-145) mmol/L Chloride (98-107) mmol/L Carbon Dioxide (22-30) mmol/L Glucose (74-99) mg/dL POC Glucose (mg/dL) 149 H 269 H 305 H (70-110) mg/dL Calcium (8.4-10.2) mg/dL 04/04/23 04/04/23 Range/Units 05:21 05:59 Sodium 135 L (137-145) mmol/L Chloride 97 L (98-107) mmol/L Carbon Dioxide 31 H (22-30) mmol/L Glucose 154 H (74-99) mg/dL POC Glucose (mg/dL) 149 H (70-110) mg/dL Calcium 8.1 L (8.4-10.2) mg/dL Microbiology - Last 24 Hours (Table) 04/01/23 10:48 Gram Stain - Final Sputum Sputum Culture - Final Assessment and Plan Assessment: Left lung collapse, essentially the left lower lobe secondary to mucous plugs. Bronchoscopy was done during the earlier hospitalization the patient was found to have mucous plugs, significant tracheal bronchomalacia, narrowing of the left lower lobe bronchial orifice. Currently on Unasyn. Plan is for daily bronchoscopy per CT services and placed on BiPAP 04/03/2023. Acute on chronic shortness of breath without any worsening in her hypoxemia. The patient's shortness of breath is multifactorial. Obviously she has undergone a left upper lobe resection. She has also complete atelectasis of left lower lobe and several attempts to reexpand the lung on the left has failed as the patient has significant tracheal bronchomalacia, mucus, Haemophilus influenza pneumonia and narrowing of the left lower lobe orifice as noted on several bronchoscopies. The left lung remains unchanged. The acute decompensation could be related to A. fib which is paroxysmal and the patient may have some interval worsening in her volume status. As such, the patient was hospitalized. ProBNP level is elevated. Remains on IV diuretics. Persistent left lower lobe atelectasis. Computed tomography scan of the chest 03/30/2023 revealed increased consolidation and collapse of the left lower lobe with essentially no residual aerated lung seen. Small to moderate size left pleural effusion however pneumothorax component of this has essentially resolved. Small mucous secretions along the tracheal wall and thoracic inlet. Right hilar adenopathy likely present on prior unenhanced study and suspected unchanged. Moderate right pleural effusions. Previous right upper lobe groundglass infiltrates have resolved. Pulmonary adenocarcinoma with a 1.5 cm mass in the left upper lobe. On 03/15/2023 she had undergone a robotically assisted thoracoscopic left upper lobectomy with mediastinal lymph node dissection, for early stage NSCLC. The final pathologic staging is T1b N1 M0 disease. Acute hypoxic respiratory failure currently on 3 L of oxygen nasal cannula, pulse ox 92% Tracheobronchomalacia, severe Paroxysmal atrial fibrillation. No anticoagulants per surgical recommendations. Patient is currently in sinus rhythm with amiodarone 400 mg by mouth twice a day History of chronic obstructive pulmonary disease Chronic tobacco dependence History of CVA History of diabetes mellitus History of hypertension History of hyperlipidemia History of alcohol abuse and heroin abuse History of hepatitis B and C Plan: The patient was seen and evaluated Chest x-ray, medications and labs reviewed Patient did undergo bronchoscopy today by CT services Plan is for bronchoscopy daily until left lung expands Continue to utilize BiPAP as tolerated Increase activity as tolerated Increase the use of the incentive spirometer Remains on Unasyn, bronchodilators, steroids We will continue to follow I have personally seen and examined the patient, performed the documentation and the assessment and plan as written. Number of minutes spent on the visit: 10.
[2023-04-04] MEDS ORDERED: MAGNESIUM SULFATE-D5W PMX 1 GM in DEXTROSE/WATER 1 100ML.BAG IVPB ONE (14:16)
--- NOTE | 2023-04-04 14:18 | P.PN ---
Subjective Progress Note Date: 04/04/23 Patient is a 57-year-old female with a past medical history of hypertension, hyperlipidemia, diabetes type 2, history of CVA/TIA with right-sided weakness, recent history of lung cancer, left upper lobectomy in February 2023, bipolar/depression and currently everyday smoker presents to ER with complaints of difficulty in breathing and chest pain. Patient was recently discharged from the hospital on 03/27/2023. Does have a history of non-small cell lung cancer underwent left upper lobectomy complicated by persistent left lower lobe atelectasis requiring multiple bronchoscopies during recent hospitalization. Valve cultures from 07/22/2022 showed haemophilus influenza. Patient was discharged home on Augmentin. On admission chest x-ray showed similar opacification of the left lung likely secondary to atelectasis and large pleural effusion. No pneumothorax visualized. Small right effusion. EKG showed atrial fibrillation with rapid ventricular response with heart rate 117. Patient is currently not on any anticoagulation. Continued on amiodarone. Laboratory data showed WBC 7.7 hemoglobin 11.9 and platelets 186 ABG showed pH 7.41 pCO2 49 and pO2 105 Sodium 136 potassium 4.5 chloride 99 bicarb is 30 BUN 12 and creatinine 0.47 blood sugar 257 and lactic acid 1.7 and calcium 7.9 ESR not elevated. Troponin x 1 negative and proBNP 3090. Influenza A, B, RSV and COVID-19 PCR not detected. Lung resection on 03/15/2023 with final pathology showing moderate to poorly differentiated pulmonary adenocarcinoma. All margins negative for malignancy. 1 of 3 hilar lymph nodes positive for metastatic carcinoma. 03/30/2023 Patient is seen in follow up today with pulmonary following as well as car diology and adjustments to medications being done. Home medications reviewed and resumed. CT surgery consulted and discussing with surgery about complete lobectomy of the left. Patient continues with pleural effusions noted and has been started on IV lasix 20mg bid and will continue. Labs reviewed and within normal limits. Will follow up on repeat labs and monitor electrolytes and kidney functions closely. Patient is currently afebrile and denies worsening shortness of breath. Patient is continued on 4L and was sent home on this previously last week. Blood sugars elevated and will continue accuchecks achs and adjust medications accordingly. 03/31/2023 Patient seen and evaluated in follow-up today with pulmonary along with cardiothoracic surgery following. Discussing further about possible complete lobectomy of the left with cardiothoracic. Patient per nursing staff is lethargic and has been receiving scheduled Xanax along with Neurontin and pain medications and will decrease the dose of Xanax admitted as needed as well as decreasing the dose of Neurontin. Patient encouraged to increase activity as tolerated and get up more frequently out of the bed and sit up in the chair and work with physical therapy daily. Blood sugars remained elevated and will adjust and make long acting twice daily and continue with sliding scale. Patient continues on 2-3 L via nasal cannula and weaning FiO2 as tolerated. Patient is currently afebrile denies chest pain or palpitations and denies worsening shortness of breath. Patient continues to use incentive spirometer and needs encouragement to do so. Patient is receiving breathing inhalational treatments as well. 04/01/2023 Patient is seen in follow-up today scheduled to undergo bronchoscopy with pulmonary and cardiothoracic surgery following closely. Chest x-ray ordered for post bronchoscopy which is pending. Patient's blood sugars slightly improved and have added long-acting twice daily along with sliding scale. Encouraged increase activity as tolerated. Patient to be evaluated by physical therapy and would recommend daily. Patient also with incentive spirometer at the bedside encouraged to use at least 10 times every hour while awake. Patient reports not feeling she is having worsening shortness of breath although continues to have shortness of breath. 04/02/2023 Patient seen in follow-up this morning currently nothing by mouth and scheduled to undergo repeat bronchoscopy as follow-up chest x-ray showed near complete opacification on the left as well status post bronchoscopy yesterday. Patient is lethargic but arousable and will adjust the medications again and will discontinue Xanax. Patient worked with physical therapy this patient is significantly weak and has had multiple prolonged hospitalizations would likely be going to [facility] on discharge. Will await clearance from CT surgery pulmonary to discuss discharge planning. Patient is afebrile with no reports of worsening shortness of breath. Patient tolerating diet although given patient's lethargy will recommend aspiration precautions. 04/03/2023 Patient is evaluated today sitting up in the chair, currently wearing BiPAP. Patient underwent bronchoscopy today with Dr. Oshea pending surgical report. Chest xray reveals extensive pleural parenchymal opacity left hemithorax some interval improvement of the aeration of the left lung. Worsening small - to moderate right pleural effusion with adjacent atelectasis and or consolidation. Patient continues on IV lasix 20 mg IV Q12h. Magnesium today 1.5. 04/04/2023 Patient evaluated today sitting up in the chair. Currently on nasal cannula wanting to try and eat breakfast. She is tachypneic using accessory muscles to take a deep breath. She has minimal aeration over the left lung with chest xray today showing near complete white out of the left hemithorax, aeration worsening from yesterday. A small portion of the left upper lung remains aerated now. Ongoing small to moderate left pleural effusion adjacent atelectasis and or consolidation. Patient underwent bronchoscopy again this morning due to the mucus plugging of the left mainstem bronchus. Patient had thick yellow sputum suctioned from the left main bronchus. Continues on IV lasix 20 mg Q12h, and additionally, has been started on IV steroids toda by pulmonary team. proBNP 2910. Sodium 135, potassium 4.6, BUN 13, creatinine 0.55, magnesium 1.8, glucose 228. Review of systems: Constitutional: No reports of fatigue, fever, or chills Cardiovascular: No reports of chest pain or palpitations Respiratory: No reports of worsening shortness of breath or cough GI: No reports of nausea, vomiting, or diarrhea : No reports of dysuria or retention Neurovascular: reports of generalized weakness All medications have been reviewed PHYSICAL EXAMINATION: Patient is sitting up in chair,, asleep but arousable, alert and oriented. Well-developed, well-nourished. Elderly-appearing. obese HEENT: Normocephalic. Neck is supple. Pupils reactive. Nostrils clear. Oral cavity is moist. Neck reveals no JVD, carotid bruits, or thyromegaly. CHEST EXAMINATION: Trachea is central. Symmetrical expansion with weak inspiration. Left basilar diminished sounds. No wheezing or rhonchi. CARDIAC: Normal S1, S2 with no gallops. No murmurs ABDOMEN: Soft. Bowel sounds present. Nontender. No organomegaly. No abdominal bruits. Extremities: Lower extremity trace edema. No clubbing or cyanosis Neurologically awake, alert, oriented x3, right-sided weakness. Able to move extremities while in bed. Skin: No rash or skin lesions. Psychiatric: Cooperative. Non-suicidal, anxious Musculoskeletal: No joint swelling or deformity. Assessment: Worsening shortness of breath secondary to persistent left lower lobe atelectasis/collapse despite multiple bronchoscopies during recent admission and Pleural effusion. Patient is status post 2 bronchoscopies this admission and underwent bronchoscopy again today 04/04/23 with suctioning of thick yellow secretions. Haemophilus influenza pneumonia. Recent BAL culture showed haemophilus. Paroxysmal atrial fibrillation with rapid ventricular rate. Patient has new onset A-fib on 03/21/2023. Continued on amiodarone. Not on anticoagulation Pulmonary adenocarcinoma with recent left upper lobe resection on 03/15/2023 Acute on chronic hypoxic respiratory failure requiring 3-4 L oxygen via nasal cannula on admission. Patient was at 2 L during recent discharge. Severe tracheal bronchomalacia COPD History of CVA with right-sided weakness Diabetes type 2 Hypertension Hyperlipidemia History of hepatitis B&C History of alcohol abuse and hides abuse Anxiety/depression and PTSD/bipolar. Currently everyday smoker, reports to quitting on last admission obesity with a bmi of 30.8 GI and DVT prophylaxis Plan: Patient will be continued on telemetry monitoring. Continue with amiodarone. Patient is currently not on anticoagulation as per surgical recommendation. CT surgery is on board and discussing about lobectomy. Chest CT ordered and continues to show complete opacification on the left. Follow-up chest x-ray shows near complete opacification on the left and there was noted to be significant mucus plugging and secretions noted on yesterday's bronchoscopy. Patient underwent bronchoscopy on 04/02 and again on 04/04. Continued on IV Lasix 20 mg every 12. Will follow up on repeat labs and monitor electrolytes and kidney functions closely Continue with DuLópezbs and Pulmicort with Mucomyst being added Blood sugars remain elevated above improved and have added long-acting to twice daily along with sliding scale. We'll continue to monitor closely. May need further adjustments patient has been started on IV steroids. Recommend PT/OT therapy daily as patient has been mostly sitting and laying in bed and has not been up in motivating and walking to the bathroom. Patient was able to walk a few steps in the room today. Case management planning on ECF once stabilized and cleared by consultations Encouraged continued incentive spirometer use at least 10 times every hour while awake Recommend holding [employer] and narcotic agents if patient is lethargic. Medications have been adjusted to lesser dose and Xanax has been discontinued Overall Prognosis is guarded. Patient is being upgraded to the stepdown unit. The impression and plan of care has been dictated by Joana Diaz, Nurse Practitioner as directed. Dr. Gay MD I have performed a history and physical examination and medical decision making of this patient, discussed the same with the dictator, and agree with the dictators assessment and plan as written, documented as a scribe. Based on total visit time, I have performed more than 50% of this visit. Objective - Vital Signs Vital signs: Vital Signs Temp 98.1 F 04/04/23 08:00 Pulse 60 04/04/23 09:04 Resp 28 H 04/04/23 09:04 BP 126/54 04/04/23 09:04 Pulse Ox 93 L 04/04/23 09:04 FiO2 30 04/04/23 05:04 Intake & Output 04/03/23 04/04/23 04/04/23 18:59 06:59 18:59 Intake Total 50 400 Balance 50 400 Intake: IV 50 400 Other: Voiding Method Bedside Commode Bedside Commode # Voids 2 # Bowel Movements 1 - Labs CBC & Chem 7: 04/03/23 05:21 04/04/23 05:21 Labs: Abnormal Lab Results - Last 24 Hours (Table) 04/03/23 04/03/23 04/03/23 Range/Units 05:21 12:08 17:01 Sodium (137-145) mmol/L Chloride 95 L (96-109) mmol/L Carbon Dioxide (22-30) mmol/L Glucose 149 H (70-110) mg/dL POC Glucose (mg/dL) 149 H 269 H (70-110) mg/dL Calcium 8.3 L (8.7-10.3) mg/dL 04/03/23 04/04/23 04/04/23 Range/Units 20:25 05:21 05:59 Sodium 135 L (137-145) mmol/L Chloride 97 L (96-109) mmol/L Carbon Dioxide 31 H (22-30) mmol/L Glucose 154 H (70-110) mg/dL POC Glucose (mg/dL) 305 H 149 H (70-110) mg/dL Calcium 8.1 L (8.7-10.3) mg/dL Microbiology - Last 24 Hours (Table) 04/01/23 10:48 Gram Stain - Preliminary Sputum Assessment and Plan Time with Patient: Less than 30
[2023-04-04 16:19] LABS: Glucose,Whole Blood 315 mg/dL (70-110)
[2023-04-04] MEDS ORDERED: LORazepam 0.5 MG TAB PO STA (16:46)
[2023-04-04 20:15] LABS: Glucose,Whole Blood 477 mg/dL (70-110)
[2023-04-05] MEDS: HYDROcodone/APAP 5-325MG 1 EACH TAB PO PRN ×4 (02:56→20:02)
[2023-04-05] MEDS: FUROSEMIDE 10 MG/ML 2 ML VIAL IV SCH ×2 (05:10→15:36)
[2023-04-05 06:12] LABS: Glucose,Whole Blood 234 mg/dL (70-110)
[2023-04-05] MEDS: INSULIN ASPART (NovoLOG) 100 UNIT/ML VIAL SQ SCH ×3 (06:51→12:16)
[2023-04-05] MEDS: INSULIN DETEMIR (LEVEMIR) 100 UNIT/ML SYR SQ SCH (06:51)
--- NOTE | 2023-04-05 08:04 | P.PN ---
Subjective Progress Note Date: 04/05/23 Principal diagnosis: Shortness of breath, rapid atrial fibrillation present on admission. History of moderate to poorly differentiated pulmonary adenocarcinoma with 13 hilar lymph nodes positive for metastatic carcinoma status post robotic-assisted thoracoscopic left upper lobectomy with mediastinal lymph node dissection, postoperative paroxysmal atrial fibrillation, left lower lobe atelectasis and mucous plugging with tracheobronchial malacia status post bronchoscopy 3, ins ulin dependent diabetes with poor glycemic control, hypomagnesemia, current tobacco dependence with cessation prior to previous admission, moderate COPD, current daily EtOH use, hypertension, hyperlipidemia, stroke in 2016 with right- sided weakness, hepatitis B and C, bipolar depression, IV heroin use with last use August 2018 The patient was seen and examined at her bedside today 04/05/2023 on the third floor cardiac stepdown unit. She is currently sitting up to the bedside chair, is awake, alert, oriented 3 and is in no acute apparent distress. She denies any complaints of shortness of breath or pain at this time. Oxygen saturation are 95% on 4 L nasal cannula. She has undergone a bronchoscopy performed by Dr. June over the last 4 days and tolerated well. She continues on Unasyn IV piggyback for a bronchial lavage Gram stain and culture showing Haemophilus influenzae. She has been afebrile the last 24 hours. Continue to encourage use of her incentive spirometry 10 times every hour while awake. Encourage ambulation. She was started on Solu-Medrol 60 mg IV every 12 hours yesterday. Chest x-ray results reviewed. Objective - Vital Signs Vital signs: Vital Signs Temp 97.7 F 04/05/23 04:00 Pulse 60 04/05/23 04:00 Resp 19 04/05/23 04:00 BP 144/67 04/05/23 04:00 Pulse Ox 94 L 04/05/23 04:00 FiO2 30 04/04/23 05:04 Intake & Output 04/04/23 04/05/23 04/05/23 18:59 06:59 18:59 Intake Total 750 120 Output Total 200 Balance 750 -80 Weight 94 kg Intake: IV 400 Oral 350 120 Output: Urine 200 Other: Voiding Method Bedside Commode Bedside Commode - Exam CONSTITUTIONAL: Alert, cooperative, no pain, no acute distress RESPIRATORY: Lungs sounds diminished on the left, essentially clear to her right lobes. Respirations are symmetrical, nonlabored. Currently on 4 L nasal cannula with oxygen saturation 95%. Strong cough. Achieving 1000 mL on incentive spirometry CARDIOVASCULAR: S1, S2 present. Regular rate and rhythm. Palpable peripheral pulses bilaterally. No edema present GASTROINTESTINAL: Abdomen soft, nontender, nondistended without masses or organomegaly noted. There is no rebound or guarding present. Active bowel sounds present 4 quadrants. GENITOURINARY: Continues to void. INTEGUMENTARY: Skin is warm and dry, left chest surgical incisions well appro ximated NEUROLOGIC: Cranial nerves II through XII intact, normal coordination, no obvious motor or sensory deficits, speech is normal MUSKULOSKELETAL: Able to move all extremities, strength equal bilaterally, normal posture PSYCHIATRIC: Alert, oriented to person place and time, flat affect - Allied health notes Allied health notes reviewed: nursing - Labs CBC & Chem 7: 04/03/23 05:21 04/04/23 05:21 Labs: Abnormal Lab Results - Last 24 Hours (Table) 04/04/23 04/04/23 04/04/23 Range/Units 12:14 16:12 20:14 POC Glucose (mg/dL) 228 H 315 H 477 H (70-110) mg/dL 04/05/23 Range/Units 06:10 POC Glucose (mg/dL) 234 H (70-110) mg/dL Microbiology - Last 24 Hours (Table) 04/01/23 10:48 Gram Stain - Final Sputum Sputum Culture - Final - Imaging and Cardiology Chest x-ray: report reviewed, image reviewed Assessment and Plan Assessment: Moderate to poorly differentiated pulmonary adenocarcinoma with 13 hilar lymph nodes positive for metastatic carcinoma status post robotic-assisted thoracoscopic left upper lobectomy with mediastinal lymph node dissection Postoperative paroxysmal atrial fibrillation, left lower lobe atelectasis and mucous plugging with tracheobronchial malacia status post bronchoscopy 3 Insulin dependent diabetes with poor glycemic control, hyperglycemia, A1c 8.8% Hypomagnesemia Current tobacco dependence with cessation prior to previous admission Moderate COPD, preoperative FEV1 54% of predicted, DLCO 36% of predicted Current daily EtOH use Hypertension Hyperlipidemia Stroke in 2016 with right-sided weakness Hepatitis B and C Bipolar depression History of IV heroin use with last use August 2018 Left lung collapse, left lung opacification, status post bronchoscopy performed by Dr. Reynolds 03/19/23 Left lower lobe atelectasis, mucus plug occupying the left mainstem bronchus and the left lower lobe bronchus, tracheobronchomalacia, status post flexible bronchoscopy, bronchial lavage of the left lower lobe by Dr. Lucia 03/23/23 and again 03/25/2023, bronchoscopy completed by Dr. June on 04/01/2023, 04/02/2023, 04/03/2023 and 04/04/2023 Plan: She will be made nothing by mouth after midnight, we will reevaluate her chest x-ray in the morning and determine need for bronchoscopy to be performed by Dr. June. Medical management and other comorbidities per primary care service. Wean O2 as tolerated. Encourage use of incentive spirometry 10 times every hour while awake. Increase activity as tolerated, shower daily Continue antibiotics, currently on Unasyn. Diabetes management per primary care service. Continue Solu-Medrol 60 mg IV every 12 hours, we will reevaluate decreasing steroids tomorrow 04/06/2023 Recommendations follow based on patient's clinical course. Time with Patient: Less than 30
[2023-04-05] MEDS: IPRATROPIUM-ALBUTEROL 3 ML NEB INHALATION SCH ×4 (08:07→21:35)
[2023-04-05] MEDS: ACETYLCYSTEINE 800 MG/4 ML VIAL INHALATION SCH ×3 (08:07→21:35)
[2023-04-05] MEDS: FOLIC ACID 1 MG TAB PO SCH (08:59)
[2023-04-05] MEDS: AMIODARONE 200 MG TAB PO SCH ×2 (08:59→20:01)
[2023-04-05] MEDS: HEPARIN SODIUM,PORCINE 5,000 UNIT/ML 1 ML VIAL SQ SCH ×3 (08:59→23:50)
[2023-04-05] MEDS: guaiFENesin 600 MG TABLET.ER PO SCH ×2 (08:59→20:01)
[2023-04-05] MEDS: PANTOPRAZOLE 40 MG TABLET PO SCH (08:59)
[2023-04-05] MEDS: ATORVASTATIN 10 MG TAB PO SCH (08:59)
[2023-04-05] MEDS: GABAPENTIN 400 MG CAP PO SCH ×3 (09:00→20:01)
[2023-04-05] MEDS: THIAMINE 100 MG TAB PO SCH (09:00)
[2023-04-05] MEDS: AMPICILLIN-SULBACTAM 1.5 GM in SODIUM CHLORIDE 0.9% 50 ML IVPB SCH ×2 (09:00→16:03)
[2023-04-05] MEDS: methylPREDNISolone SOD SUCCI 125 MG/2 ML VIAL IV SCH ×2 (09:00→20:01)
[2023-04-05] MEDS: SENNOSIDES 8.6 MG TAB PO SCH ×2 (09:00→20:01)
--- NOTE | 2023-04-05 09:20 | XR ---
EXAMINATION TYPE: XR chest 2V DATE OF EXAM: 04/05/2023 COMPARISON: 04/04/2023 HISTORY: 57-year-old female postop left upper lobectomy TECHNIQUE: PA and lateral views FINDINGS: Volume loss left hemithorax. Improving aeration left upper lung with extensive opacification continui ng along the medial left upper lung and throughout the left mid and lower lung. Similar small to mode rate right pleural effusion. Some underlying interstitial densities persist. IMPRESSION: 1. Postsurgical volume loss left hemithorax. 2. Slight improving aeration within the periphery of the left upper lung but otherwise extensive pleu ral parenchymal opacities persist on the left. 3. Similar small to moderate right pleural effusion with adjacent atelectasis and/or consolidation.
[2023-04-05 10:37] LABS: African American GFR (CKD) >90 (>60 ml/min/1.73 sqM); Anion Gap 9 mmol/L; Blood Urea Nitrogen 15 mg/dL (7-17); Calcium 8.2 mg/dL (8.4-10.2); Carbon Dioxide 31 mmol/L (22-30); Chloride 96 mmol/L (98-107); Glucose 198 mg/dL (74-99); Magnesium 1.8 mg/dL (1.6-2.3); Non-African American GFR(CKD) >90 (>60 ml/min/1.73 sqM); Potassium 3.9 mmol/L (3.5-5.1); Sodium 136 mmol/L (137-145)
[2023-04-05 11:15] LABS: Glucose,Whole Blood 500 mg/dL (70-110)
[2023-04-05] MEDS ORDERED: INSULIN ASPART (NovoLOG) 100 UNIT/ML VIAL SQ SCH (12:30)
[2023-04-05] MEDS ORDERED: SODIUM CHLORIDE 0.9% 1,000 ML IV SCH (12:45)
--- NOTE | 2023-04-05 12:55 | P.PN ---
Subjective Progress Note Date: 04/05/23 Principal diagnosis: Shortness of breath. Patient was evaluated today on 04/01/23, a is basically about the same, patient was seen by thoracic surgery and she was told that she will undergo bronchoscopy today. Patient is comfortable, chest x-ray all along has been showing complete opacification of the left lung, hopefully this bronchoscopy would be better than previous bronchoscopy and more beneficial however considering the patient already had 4 bronchoscopies and did not improve her lung condition, I doubt that this will. However this bronchoscopy is being done by thoracic surgery/Dr. June The patient is seen today 04/02/2023 in follow-up on the regular medical floor. She is currently sitting up in a chair. Awake and alert in no acute distress. She is maintaining good O2 saturations in the 90s on 2 L/m per nasal cannula. White count 8.1. Hemoglobin 10.4. Platelets 160. Sodium 135. Potassium 3.8. Bicarb 32. BUN 13. Creatinine 0.7. Glucose 164. Chest x-ray continues to show similar opacification of left lung will occur rectal secondary to atelecta sis and large pleural effusion. No pneumothorax visualized. Enlarging right pleural effusion now small to moderate. She did undergo bronchoscopy yesterday with Dr. June and the plan is to return for another bronchoscopy again today. She is continued on DuoNeb inhalations, Symbicort, Mucinex, Mucomyst, antibiotics in the form of Unasyn. Heparin for DVT prophylaxis. The patient is seen today 04/03/2023 in follow-up on the regular medical floor. She is currently sitting up in a chair at the bedside. Awake and alert in no acute distress. She is maintaining good O2 saturations in the 90s on 2 L/m per nasal cannula. Blood cultures reveal no growth. White count 6.8. Hemoglobin 11.7. Platelets 127. Sodium 136. Potassium 4.1. Bicarb 32. BUN 12. Creatinine 0.8. Glucose 149. Remains on antibiotics in the form of Unasyn. Continued on bronchodilators, Mucomyst, Mucinex. Continued on IV diuretics. Heparin for DVT prophylaxis. The patient is seen today 04/04/2023 in follow-up on the regular medical floor. She did utilize BiPAP through the night 10/5 and 30% FiO2. Otherwise utilizing oxygen at 3 L/m per nasal cannula. She did undergo another bronchoscopy with BAL per CT services today. Chest x-ray continues to show near complete white out of the left hemithorax. Small portion left upper lung mass remains aerated now. Ongoing small to moderate right effusion with adjacent atelectasis. She is encouraged regarding increased use the incentive spirometer. Increase activity as tolerated. Remains on antibiotics in the form of Unasyn. Remains on Symbicort, DuoNeb inhalations, Solu-Medrol, Mucinex and Mucomyst. Heparin for DVT prophylaxis. Remains on IV diuretics. Sodium 135. Potassium 4.6. Bicarb 31. BUN 13. Creatinine 0.55. Glucose 154. ProBNP 2910. Progress note dated 04/05/2023. 57-year-old female with a previous recent history of left upper lobectomy for lung cancer. The patient has been in and out of the hospital multiple times, is required multiple bronchoscopies, for left lung collapse. Currently, the patient is seen today in room 364. She is on 4 L of oxygen. She's getting saline at 10 mL an hour. Her most recent chest x-ray shows partial left lung collapse. Current labs include a sodium 136, potassium 3.9, chlorides 96, CO2 31, BUN 15, creatinine 0.56. Glucose is 198. Calcium is 8.2. Chest x-ray shows postsurgical volume loss, left hemithorax, with slight improvement overall. Objective - Vital Signs Vital signs: Vital Signs Temp 97.8 F 04/05/23 08:00 Pulse 64 04/05/23 12:39 Resp 16 04/05/23 12:39 BP 144/73 04/05/23 12:39 Pulse Ox 97 04/05/23 12:39 FiO2 30 04/04/23 05:04 Intake & Output 04/04/23 04/05/23 04/05/23 18:59 06:59 18:59 Intake Total 750 120 110 Output Total 200 Balance 750 -80 110 Weight 94 kg 94 kg Intake: IV 400 Oral 350 120 110 Output: Urine 200 Other: Voiding Method Bedside Commode Bedside Commode Bedside Commode - Exam No acute distress, oriented 3. No respiratory distress. Currently on 4 L. HEENT examination is grossly unremarkable. Mucous membranes are moist. No oral lesions. Neck supple. Full range of motion. No adenopathy thyromegaly or neck vein distention. Cardiovascular examination reveals regular rhythm rate. S1-S2 normal. No S3 or S4. No discernible murmur noted. Heart rate 89 bpm. Lungs reveal diminished breath sounds on the left. Mild scattered rhonchi are noted. No wheezes or crackles. Right lung is clear. Abdomen soft bowel sounds are heard. No masses or tenderness. Extremities are intact. No cyanosis clubbing or edema. Skin is without rash or lesion. Neurologic examination is brief but nonfocal. - Labs CBC & Chem 7: 04/03/23 05:21 04/05/23 08:31 Labs: Abnormal Lab Results - Last 24 Hours (Table) 04/04/23 04/04/23 04/05/23 Range/Units 16:12 20:14 06:10 Sodium (137-145) mmol/L Chloride (98-107) mmol/L Carbon Dioxide (22-30) mmol/L Glucose (74-99) mg/dL POC Glucose (mg/dL) 315 H 477 H 234 H (70-110) mg/dL Calcium (8.4-10.2) mg/dL 04/05/23 04/05/23 Range/Units 08:31 11:13 Sodium 136 L (137-145) mmol/L Chloride 96 L (98-107) mmol/L Carbon Dioxide 31 H (22-30) mmol/L Glucose 198 H (74-99) mg/dL POC Glucose (mg/dL) 500 H (70-110) mg/dL Calcium 8.2 L (8.4-10.2) mg/dL Microbiology - Last 24 Hours (Table) 04/01/23 10:48 Gram Stain - Final Sputum Sputum Culture - Final Assessment and Plan Assessment: Left lung collapse, essentially the left lower lobe secondary to mucous plugs. Bronchoscopy was done during the earlier hospitalization the patient was found to have mucous plugs, significant tracheobronchomalacia, narrowing of the left lower lobe bronchial orifice. Currently on Unasyn. Plan is for daily bronchoscopy per CT services and placed on BiPAP 04/03/2023. Acute on chronic shortness of breath without any worsening in her hypoxemia. The patient's shortness of breath is multifactorial. Obviously she has undergone a left upper lobe resection. She has also complete atelectasis of left lower lobe and several attempts to reexpand the lung on the left has failed as the patient has significant tracheal bronchomalacia, mucus, Haemophilus influenza pneumonia and narrowing of the left lower lobe orifice as noted on several bronchoscopies. The left lung remains unchanged. The acute decompensation could be related to A. fib which is paroxysmal and the patient may have some interval worsening in her volume status. As such, the patient was hospitalized. ProBNP level is elevated. Remains on IV diuretics. Persistent left lower lobe atelectasis. Computed tomography scan of the chest 03/30/2023 revealed increased consolidation and collapse of the left lower lobe with essentially no residual aerated lung seen. Small to moderate size left pleural effusion however pneumothorax component of this has essentially resolved. Small mucous secretions along the tracheal wall and thoracic inlet. Right hilar adenopathy likely present on prior unenhanced study and suspected unchanged. Moderate right pleural effusions. Previous right upper lobe groundglass infiltrates have resolved. Pulmonary adenocarcinoma with a 1.5 cm mass in the left upper lobe. On 03/15/2023 she had undergone a robotically assisted thoracoscopic left upper lobectomy with mediastinal lymph node dissection, for early stage NSCLC. The final pathologic staging is T1b N1 M0 disease. Acute hypoxic respiratory failure currently on 4 L of oxygen nasal cannula. Tracheobronchomalacia, severe. Paroxysmal atrial fibrillation. History of chronic obstructive pulmonary disease. Chronic tobacco dependence. History of CVA. History of diabetes mellitus. History of hypertension. History of hyperlipidemia. History of alcohol abuse and heroin abuse. History of hepatitis B and C. Plan: Plan dated 04/05/2023. The patient was seen and evaluated. The patient is currently on 4 L of oxygen. Saturations are 96%. The patient is receiving saline at 10 mL an hour. Labs, and x-rays are evaluated. Chest x-ray is about the same, or mildly improved. W e will continue to follow make recommendations along the way. The patient will continue on bronchodilators, and BiPAP, as tolerated. The patient should also do incentive spirometer, every hour while awake, and be encouraged to deep breathe, cough, and clear secretions. We will continue to follow make recommendations where appropriate. Prognosis is guarded. Time with Patient: Less than 30
[2023-04-05 13:28] LABS: Glucose,Whole Blood 447 mg/dL (70-110)
[2023-04-05] MEDS: INSULIN REGULAR 100 UNIT in SODIUM CHLORIDE 0.9% 100 ML IV SCH (13:30)
[2023-04-05 14:31] LABS: Glucose,Whole Blood 252 mg/dL (70-110)
[2023-04-05] MEDS: BUDESONIDE 1 MG/2 ML NEBU INHALATION SCH ×2 (15:21→21:35)
[2023-04-05] MEDS: FORMOTEROL FUMARATE 20 MCG/2 ML NEBU INHALATION SCH ×2 (15:21→21:35)
[2023-04-05 15:31] LABS: Glucose,Whole Blood 203 mg/dL (70-110)
--- NOTE | 2023-04-05 15:33 | P.PN ---
Subjective Progress Note Date: 04/05/23 Patient is a 57-year-old female with a past medical history of hypertension, hyperlipidemia, diabetes type 2, history of CVA/TIA with right-sided weakness, recent history of lung cancer, left upper lobectomy in February 2023, bipolar/depression and currently everyday smoker presents to ER with complaints of difficulty in breathing and chest pain. Patient was recently discharged from the hospital on 03/27/2023. Does have a history of non-small cell lung cancer underwent left upper lobectomy complicated by persistent left lower lobe atelectasis requiring multiple bronchoscopies during recent hospitalization. Valve cultures from 07/22/2022 showed haemophilus influenza. Patient was discharged home on Augmentin. On admission chest x-ray showed similar opacification of the left lung likely secondary to atelectasis and large pleural effusion. No pneumothorax visualized. Small right effusion. EKG showed atrial fibrillation with rapid ventricular response with heart rate 117. Patient is currently not on any anticoagulation. Continued on amiodarone. Laboratory data showed WBC 7.7 hemoglobin 11.9 and platelets 186 ABG showed pH 7.41 pCO2 49 and pO2 105 Sodium 136 potassium 4.5 chloride 99 bicarb is 30 BUN 12 and creatinine 0.47 blood sugar 257 and lactic acid 1.7 and calcium 7.9 ESR not elevated. Troponin x 1 negative and proBNP 3090. Influenza A, B, RSV and COVID-19 PCR not detected. Lung resection on 03/15/2023 with final pathology showing moderate to poorly differentiated pulmonary adenocarcinoma. All margins negative for malignancy. 1 of 3 hilar lymph nodes positive for metastatic carcinoma. 03/30/2023 Patient is seen in follow up today with pulmonary following as well as cardiology and adjustments to medications being done. Home medications reviewed and resumed. CT surgery consulted and discussing with surgery about complete lobectomy of the left. Patient continues with pleural effusions noted and has been started on IV lasix 20mg bid and will continue. Labs reviewed and within normal limits. Will follow up on repeat labs and monitor electrolytes and kidney functions closely. Patient is currently afebrile and denies worsening shortness of breath. Patient is continued on 4L and was sent home on this previously last week. Blood sugars elevated and will continue accuchecks achs and adjust medications accordingly. 03/31/2023 Patient seen and evaluated in follow-up today with pulmonary along with cardiothoracic surgery following. Discussing further about possible complete lobectomy of the left with cardiothoracic. Patient per nursing staff is lethargic and has been receiving scheduled Xanax along with Neurontin and pain medications and will decrease the dose of Xanax admitted as needed as well as decreasing the dose of Neurontin. Patient encouraged to increase activity as tolerated and get up more frequently out of the bed and sit up in the chair and work with physical therapy daily. Blood sugars remained elevated and will adjust and make long acting twice daily and continue with sliding scale. Patient continues on 2-3 L via nasal cannula and weaning FiO2 as tolerated. Patient is currently afebrile denies chest pain or palpitations and denies worsening shortness of breath. Patient continues to use incentive spirometer and needs encouragement to do so. Patient is receiving breathing inhalational treatments as well. 04/01/2023 Patient is seen in follow-up today scheduled to undergo bronchoscopy with pulmonary and cardiothoracic surgery following closely. Chest x-ray ordered for post bronchoscopy which is pending. Patient's blood sugars slightly improved and have added long-acting twice daily along with sliding scale. Encouraged increase activity as tolerated. Patient to be evaluated by physical therapy and would recommend daily. Patient also with incentive spirometer at the bedside encouraged to use at least 10 times every hour while awake. Patient reports not feeling she is having worsening shortness of breath although continues to have shortness of breath. 04/02/2023 Patient seen in follow-up this morning currently nothing by mouth and scheduled to undergo repeat bronchoscopy as follow-up chest x-ray showed near complete opacification on the left as well status post bronchoscopy yesterday. Patient is lethargic but arousable and will adjust the medications again and will discontinue Xanax. Patient worked with physical therapy this patient is significantly weak and has had multiple prolonged hospitalizations would likely be going to [facility] on discharge. Will await clearance from CT surgery pulmonary to discuss discharge planning. Patient is afebrile with no reports of worsening shortness of breath. Patient tolerating diet although given patient's lethargy will recommend aspiration precautions. 04/03/2023 Patient is evaluated today sitting up in the chair, currently wearing BiPAP. Patient underwent bronchoscopy today with Dr. Oshea pending surgical report. Chest xray reveals extensive pleural parenchymal opacity left hemithorax some interval improvement of the aeration of the left lung. Worsening small - to moderate right pleural effusion with adjacent atelectasis and or consolidation. Patient continues on IV lasix 20 mg IV Q12h. Magnesium today 1.5. 04/04/2023 Patient evaluated today sitting up in the chair. Currently on nasal cannula wanting to try and eat breakfast. She is tachypneic using accessory muscles to take a deep breath. She has minimal aeration over the left lung with chest xray today showing near complete white out of the left hemithorax, aeration worsening from yesterday. A small portion of the left upper lung remains aerated now. Ongoing small to moderate left pleural effusion adjacent atelectasis and or consolidation. Patient underwent bronchoscopy again this morning due to the mucus plugging of the left mainstem bronchus. Patient had thick yellow sputum s uctioned from the left main bronchus. Continues on IV lasix 20 mg Q12h, and additionally, has been started on IV steroids toda by pulmonary team. proBNP 2910. Sodium 135, potassium 4.6, BUN 13, creatinine 0.55, magnesium 1.8, glucose 228. 04/05/2023 Patient is seen in follow-up today currently awaiting to undergo bronchoscopy again with cardiothoracic surgery on 04/06/2023. Chest x-ray continues to show near complete opacification on the left. Patient continues with ongoing bilateral pleural effusions and is maintained on IV Lasix. Patient started on IV steroids with pulmonary following closely and blood sugars are completely uncontrolled in the 500s. Will initiate insulin drip and continue with protocol and Accu-Cheks every hour and tighter glycemic control. Patient will be nothing by mouth at midnight again for bronchoscopy and will await report. Will discuss further with CT surgery regarding overall treatment plan. Patient with significant weakness recommend physical therapy daily. Patient needs Encouraged increased activity as tolerated as patient has been mostly sitting and sleeping throughout most of hospitalization. Review of systems: Constitutional: No reports of fatigue, fever, or chills Cardiovascular: No reports of chest pain or palpitations Respiratory: No reports of worsening shortness of breath or cough GI: No reports of nausea, vomiting, or diarrhea : No reports of dysuria or retention Neurovascular: reports of generalized weakness All medications have been reviewed PHYSICAL EXAMINATION: Patient is sitting up in chair,, asleep but arousable, alert and oriented. Well-developed, well-nourished. Elderly-appearing. obese HEENT: Normocephalic. Neck is supple. Pupils reactive. Nostrils clear. Oral cavity is moist. Neck reveals no JVD, carotid bruits, or thyromegaly. CHEST EXAMINATION: Trachea is central. Symmetrical expansion with weak inspiration. Left basilar diminished sounds. No wheezing or rhonchi. CARDIAC: Normal S1, S2 with no gallops. No murmurs ABDOMEN: Soft. Bowel sounds present. Nontender. No organomegaly. No abdominal bruits. Extremities: Lower extremity trace edema. No clubbing or cyanosis Neurologically awake, alert, oriented x3, right-sided weakness. Able to move extremities while in bed. Skin: No rash or skin lesions. Psychiatric: Cooperative. Non-suicidal, anxious Musculoskeletal: No joint swelling or deformity. Assessment: Worsening shortness of breath secondary to persistent left lower lobe at electasis/collapse despite multiple bronchoscopies during recent admission and Pleural effusion. Patient is status post 2 bronchoscopies this admission and underwent bronchoscopy repeat 04/04/23 with suctioning of thick yellow secretions. Patient scheduled for bronchoscopy on 04/06/[address] surgery. Haemophilus influenza pneumonia. Recent BAL culture showed haemophilus. Paroxysmal atrial fibrillation with rapid ventricular rate. Patient has new onset A-fib on 03/21/2023. Continued on amiodarone. Not on anticoagulation Pulmonary adenocarcinoma with recent left upper lobe resection on 03/15/2023 Acute on chronic hypoxic respiratory failure requiring 3-4 L oxygen via nasal cannula on admission. Patient was at 2 L during recent discharge. Severe tracheal bronchomalacia COPD History of CVA with right-sided weakness Diabetes type 2 Hypertension Hyperlipidemia History of hepatitis B&C History of alcohol abuse and hides abuse Anxiety/depression and PTSD/bipolar. Currently everyday smoker, reports to quitting on last admission obesity with a bmi of 30.8 GI and DVT prophylaxis Plan: Patient will be continued on telemetry monitoring. Continue with amiodarone. Patient is currently not on anticoagulation as per surgical recommendation. CT surgery is on board and discussing about lobectomy. Chest CT ordered and continues to show complete opacification on the left. Follow-up chest x-ray shows near complete opacification on the left and there was noted to be significant mucus plugging and secretions noted on yesterday's bronchoscopy. Patient underwent bronchoscopy on 04/02 and again on 04/04. scheduled for bronchoscopy with CT surgery again on 04/06/2023 Continued on IV Lasix 20 mg every 12. Will follow up on repeat labs and monitor electrolytes and kidney functions closely Continue with DuoNebs and Pulmicort with Mucomyst Blood sugars remain elevated above improved and have added long-acting to twice daily along with sliding scale. We'll continue to monitor closely. Blood sugars are at [address] the patient on insulin drip and continue with Accu-Cheks every hour per protocol. Patient will be nothing by mouth at midnight and will monitor closely after resumption of diet Recommend PT/OT therapy daily as patient has been mostly sitting and laying in bed and has not been up in motivating and walking to the bathroom. Patient was able to walk a few steps in the room today. Case management planning on ECF once stabilized and cleared by consultations Encouraged continued incentive spirometer use at least 10 times every hour while awake Recommend holding [employer] and narcotic agents if patient is lethargic. Medications have been adjusted to lesser dose and Xanax has been discontinued Due to Multiple complex medical issues, Overall Prognosis is guarded. The impression and plan of care has been dictated by Rahel Crabtree, Nurse Practitioner as directed. Dr. John MD I have performed a history and examination and MDM of this patient, discussed the same with the dictator, and agree with the dictator's assessment and plan as written ,documented as a scribe. Based on total visit time, I have performed more than 50% of the visit. Objective - Vital Signs Vital signs: Vital Signs Temp 97.7 F 04/05/23 04:00 Pulse 56 L 04/05/23 08:22 Resp 19 04/05/23 04:00 BP 144/67 04/05/23 04:00 Pulse Ox 94 L 04/05/23 04:00 FiO2 30 04/04/23 05:04 Intake & Output 04/04/23 04/05/23 04/05/23 18:59 06:59 18:59 Intake Total 750 120 110 Output Total 200 Balance 750 -80 110 Weight 94 kg Intake: IV 400 Oral 350 120 110 Output: Urine 200 Other: Voiding Method Bedside Commode Bedside Commode - Labs CBC & Chem 7: 04/03/23 05:21 04/05/23 08:31 Labs: Abnormal Lab Results - Last 24 Hours (Table) 04/04/23 04/04/23 04/04/23 Range/Units 12:14 16:12 20:14 POC Glucose (mg/dL) 228 H 315 H 477 H (70-110) mg/dL 04/05/23 Range/Units 06:10 POC Glucose (mg/dL) 234 H (70-110) mg/dL Microbiology - Last 24 Hours (Table) 04/01/23 10:48 Gram Stain - Final Sputum Sputum Culture - Final
[2023-04-05 16:33] LABS: Glucose,Whole Blood 159 mg/dL (70-110)
[2023-04-05 17:30] LABS: Glucose,Whole Blood 144 mg/dL (70-110)
[2023-04-05 18:33] LABS: Glucose,Whole Blood 172 mg/dL (70-110)
[2023-04-05 19:34] LABS: Glucose,Whole Blood 291 mg/dL (70-110)
[2023-04-05] MEDS ORDERED: FORMOTEROL FUMARATE 20 MCG/2 ML NEBU INHALATION SCH (20:00)
[2023-04-05 20:31] LABS: Glucose,Whole Blood 222 mg/dL (70-110)
[2023-04-05] MEDS ORDERED: INSULIN DETEMIR (LEVEMIR) 100 UNIT/ML SYR SQ SCH (21:00)
[2023-04-05 21:45] LABS: Glucose,Whole Blood 210 mg/dL (70-110)
[2023-04-05 22:40] LABS: Glucose,Whole Blood 329 mg/dL (70-110)
[2023-04-05 23:41] LABS: Glucose,Whole Blood 176 mg/dL (70-110)
[2023-04-06 00:32] LABS: Glucose,Whole Blood 198 mg/dL (70-110)
[2023-04-06] MEDS: AMPICILLIN-SULBACTAM 1.5 GM in SODIUM CHLORIDE 0.9% 50 ML IVPB SCH ×4 (00:46→23:43)
[2023-04-06 01:32] LABS: Glucose,Whole Blood 196 mg/dL (70-110)
[2023-04-06] MEDS: HYDROcodone/APAP 5-325MG 1 EACH TAB PO PRN (02:19)
[2023-04-06 02:39] LABS: Glucose,Whole Blood 137 mg/dL (70-110)
[2023-04-06 03:34] LABS: Glucose,Whole Blood 133 mg/dL (70-110)
[2023-04-06 04:33] LABS: Glucose,Whole Blood 211 mg/dL (70-110)
[2023-04-06 05:55] LABS: Glucose,Whole Blood 196 mg/dL (70-110)
[2023-04-06 05:55] LABS: Glucose,Whole Blood 199 mg/dL (70-110)
[2023-04-06] MEDS: FUROSEMIDE 10 MG/ML 2 ML VIAL IV SCH ×2 (06:36→17:31)
[2023-04-06 06:57] LABS: Glucose,Whole Blood 172 mg/dL (70-110)
[2023-04-06 08:02] LABS: Glucose,Whole Blood 166 mg/dL (70-110)
[2023-04-06] MEDS: ACETYLCYSTEINE 800 MG/4 ML VIAL INHALATION SCH ×3 (08:13→20:27)
[2023-04-06] MEDS: BUDESONIDE 1 MG/2 ML NEBU INHALATION SCH ×2 (08:14→20:26)
[2023-04-06] MEDS: IPRATROPIUM-ALBUTEROL 3 ML NEB INHALATION SCH ×4 (08:14→20:26)
[2023-04-06] MEDS: FORMOTEROL FUMARATE 20 MCG/2 ML NEBU INHALATION SCH ×2 (08:14→20:26)
[2023-04-06] MEDS: FOLIC ACID 1 MG TAB PO SCH (08:45)
[2023-04-06] MEDS: guaiFENesin 600 MG TABLET.ER PO SCH ×2 (08:45→21:18)
[2023-04-06] MEDS: ATORVASTATIN 10 MG TAB PO SCH (08:45)
[2023-04-06] MEDS: GABAPENTIN 400 MG CAP PO SCH ×3 (08:45→21:18)
[2023-04-06] MEDS: SENNOSIDES 8.6 MG TAB PO SCH ×2 (08:45→21:18)
[2023-04-06] MEDS: AMIODARONE 200 MG TAB PO SCH ×2 (08:45→21:18)
[2023-04-06] MEDS: HEPARIN SODIUM,PORCINE 5,000 UNIT/ML 1 ML VIAL SQ SCH ×3 (08:46→23:43)
[2023-04-06] MEDS: methylPREDNISolone SOD SUCCI 125 MG/2 ML VIAL IV SCH (08:46)
[2023-04-06] MEDS: PANTOPRAZOLE 40 MG TABLET PO SCH (08:46)
[2023-04-06] MEDS: ACETAMINOPHEN TAB 325 MG TAB PO PRN (08:46)
--- NOTE | 2023-04-06 08:46 | XR ---
EXAMINATION TYPE: XR chest 1V portable DATE OF EXAM: 04/06/2023 Comparison: 04/05/2023 Clinical History: 57-year-old female s/p left upper lobectomy Findings: Ongoing volume loss left hemithorax but now with worsening aeration and now complete white out of the left hemithorax. Ongoing small right pleural effusion with right basilar opacity, slightly improved. Mild interstitial density throughout the right lung better appreciated. Left heart margin entirely o bscured. Impression: 1. Worsening aeration on the left now with complete whiteout. 2. A small right pleural effusion with adjacent atelectasis and/or consolidation may be slightly impr sade.
[2023-04-06] MEDS: THIAMINE 100 MG TAB PO SCH (08:47)
[2023-04-06 09:04] LABS: Glucose,Whole Blood 131 mg/dL (70-110)
[2023-04-06 10:05] LABS: Glucose,Whole Blood 176 mg/dL (70-110)
[2023-04-06 11:07] LABS: Glucose,Whole Blood 176 mg/dL (70-110)
[2023-04-06] MEDS ORDERED: LIDOCAINE 2% INJ 20 MG/ML INTRATRACH ONE ×2 (11:45→12:20)
[2023-04-06 12:06] LABS: Glucose,Whole Blood 207 mg/dL (70-110)
[2023-04-06] MEDS ORDERED: KETAMINE HCL IN 0.9 % NACL 50 MG/5 ML SYRINGE ONE (12:14)
[2023-04-06] MEDS ORDERED: LIDOCAINE 1% INJ 10MG/ML (20 ML MDV) ONE (12:14)
[2023-04-06] MEDS ORDERED: PROPOFOL 10 MG/ML 20 ML VIAL IV ONE (12:14)
[2023-04-06] MEDS ORDERED: SODIUM CHLORIDE 0.9% 250 ML IV ONE (12:15)
--- NOTE | 2023-04-06 12:44 | P.OP ---
Date of Procedure: 04/06/23 Preoperative Diagnosis: Plugging left mainstem bronchus Postoperative Diagnosis: Same Procedure(s) Performed: Fiberoptic bronchoscopy with aspiration of mucous plugging from left mainstem bronchus Anesthesia: MAC Surgeon: Beka June Pathology: none sent Condition: stable Disposition: PACU Indications for Procedure: 57-year-old female with recurrent mucus plugging of the left mainstem bronchus status post left upper lobectomy Operative Findings: Thick mucoid secretions in the left mainstem bronchus. These were suctioned free. There was some brownish tint to the mucus. Description of Procedure: Patient was brought to the endoscopy suite. She was in mild respiratory distress. Oxygen was administered very via mask and IV sedation was given. She was moved to a supine position. Interventional bronchoscope was placed through the mouth to the level of the cords. The cords were anesthetized with 2% lidocaine. Bronchoscope was passed into the trachea. Bronchoscope was advanced to the nickie. There was a thick white secretions present at the nickie going down both the right and left mainstem bronchial. We first cleared the right endobronchial tree which was only mildly involved with mucus. We next addressed the left mainstem bronchus which was completely occluded with very thick mucus. Was not possible to suck the mucous through the working port of the interventional scope and we pulled the scope out with the mucous at the end of the scope and evacuated into a cup. Bronchoscope was replaced in the endobronchial tree and we continued suctioning more mucus from the left mainstem bronchus until clear. We then irrigated with 20 mL of saline suction this free and removed the bronchoscope. The patient tolerated the procedure well.
[2023-04-06] MEDS ORDERED: MIDAZOLAM 2 MG/2 ML VIAL IVP ONE ×2 (13:00→13:32)
--- NOTE | 2023-04-06 13:17 | XR ---
EXAMINATION TYPE: XR chest 1V portable DATE OF EXAM: 04/06/2023 Comparison: 04/06/2023 earlier today Clinical History: 57-year-old female post bronchoscopy Findings: Postsurgical volume loss left hemithorax. Suspected underlying moderate persistent pleural effusion. Improving aeration left upper lung. Interstitial persists and is slightly increased on the right. Sma [id number] right pleural effusion also increased. Impression: 1. Increased small to moderate right pleural effusion. Interstitial density on the right also slightl y increased. Correlate to exclude pulmonary vascular congestion. 2. Interval improvement in aeration within the left upper lung. Ongoing postsurgical volume loss left hemithorax. Suspect a moderate pleural effusion here.
[2023-04-06] MEDS ORDERED: ALBUTEROL NEBULIZED 2.5 MG/3 ML INHALATION STA (13:31)
[2023-04-06] MEDS ORDERED: fentaNYL (PF) 50 MCG/ML 2 ML AMP IVP ONE (13:32)
--- NOTE | 2023-04-06 13:36 | XR ---
EXAMINATION TYPE: XR chest 1V DATE OF EXAM: 04/06/2023 COMPARISON: Earlier today HISTORY: 57-year-old female G2 placement TECHNIQUE: Single frontal view of the chest is obtained. FINDINGS: ET tube tip at the level of the clavicular heads. Supine positioning shows partial layerin g of the patient's right pleural effusion. Interstitial densities on the right. Partial clearing of t he patient's left pleural effusion as well with less aerated left upper lung on supine image. IMPRESSION: 1. Supine image shows partially layering bilateral pleural effusions. There is decreased aeration of the left upper lung on supine imaging. Redemonstrated postoperative volume loss left hemithorax. 2. Interstitial densities persist on the right. Consider pulmonary vascular congestion.
--- NOTE | 2023-04-06 13:38 | P.PN ---
Progress Note - Text Progress Note Date: 04/06/23 Called to recovery stat around 1253. Upon arrival patient was being bagged after her bronchoscopy. Patient was stable talking about a minute before. Patient started complaining of difficulty breathing and quickly decompensated. Assisted ventilation with Ambu and patient was then intubated a 8.0 tube at 23 cm. A stat portable chest with step. No pneumo. Awaiting transfer to ICU
[2023-04-06] MEDS ORDERED: propofoL 100 ML IV ONE (13:40)
[2023-04-06] MEDS: SODIUM CHLORIDE 0.9% 1,000 ML IV SCH (14:00)
[2023-04-06 14:32] LABS: Glucose,Whole Blood 271 mg/dL (70-110)
--- NOTE | 2023-04-06 15:00 | P.PN ---
Subjective Progress Note Date: 04/06/23 Patient is a 57-year-old female with a past medical history of hypertension, hyperlipidemia, diabetes type 2, history of CVA/TIA with right-sided weakness, recent history of lung cancer, left upper lobectomy in February 2023, bipolar/depression and currently everyday smoker presents to ER with complaints of difficulty in breathing and chest pain. Patient was recently discharged from the hospital on 03/27/2023. Does have a history of non-small cell lung cancer underwent left upper lobectomy complicated by persistent left lower lobe atelectasis requiring multiple bronchoscopies during recent hospitalization. Valve cultures from 07/22/2022 showed haemophilus influenza. Patient was discharged home on Augmentin. On admission chest x-ray showed similar opacification of the left lung likely secondary to atelectasis and large pleural effusion. No pneumothorax visualized. Small right effusion. EKG showed atrial fibrillation with rapid ventricular response with heart rate 117. Patient is currently not on any anticoagulation. Continued on amiodarone. Laboratory data showed WBC 7.7 hemoglobin 11.9 and platelets 186 ABG showed pH 7.41 pCO2 49 and pO2 105 Sodium 136 potassium 4.5 chloride 99 bicarb is 30 BUN 12 and creatinine 0.47 blood sugar 257 and lactic acid 1.7 and calcium 7.9 ESR not elevated. Troponin x 1 negative and proBNP 3090. Influenza A, B, RSV and COVID-19 PCR not detected. Lung resection on 03/15/2023 with final pathology showing moderate to poorly differentiated pulmonary adenocarcinoma. All margins negative for malignancy. 1 of 3 hilar lymph nodes positive for metastatic carcinoma. 03/30/2023 Patient is seen in follow up today with pulmonary following as well as cardiology and adjustments to medications being done. Home medications reviewed and resumed. CT surgery consulted and discussing with surgery about complete lobectomy of the left. Patient continues with pleural effusions noted and has been started on IV lasix 20mg bid and will continue. Labs reviewed and within normal limits. Will follow up on repeat labs and monitor electrolytes and kidney functions closely. Patient is currently afebrile and denies worsening shortness of breath. Patient is continued on 4L and was sent home on this previously last week. Blood sugars elevated and will continue accuchecks achs and adjust medications accordingly. 03/31/2023 Patient seen and evaluated in follow-up today with pulmonary along with cardiothoracic surgery following. Discussing further about possible complete lobectomy of the left with cardiothoracic. Patient per nursing staff is lethargic and has been receiving scheduled Xanax along with Neurontin and pain medications and will decrease the dose of Xanax admitted as needed as well as decreasing the dose of Neurontin. Patient encouraged to increase activity as tolerated and get up more frequently out of the bed and sit up in the chair and work with physical therapy daily. Blood sugars remained elevated and will adjust and make long acting twice daily and continue with sliding scale. Patient continues on 2-3 L via nasal cannula and weaning FiO2 as tolerated. Patient is currently afebrile denies chest pain or palpitations and denies worsening shortness of breath. Patient continues to use incentive spirometer and needs encouragement to do so. Patient is receiving breathing inhalational treatments as well. 04/01/2023 Patient is seen in follow-up today scheduled to undergo bronchoscopy with pulmonary and cardiothoracic surgery following closely. Chest x-ray ordered for post bronchoscopy which is pending. Patient's blood sugars slightly improved and have added long-acting twice daily along with sliding scale. Encouraged increase activity as tolerated. Patient to be evaluated by physical therapy and would recommend daily. Patient also with incentive spirometer at the bedside encouraged to use at least 10 times every hour while awake. Patient reports not feeling she is having worsening shortness of breath although continues to have shortness of breath. 04/02/2023 Patient seen in follow-up this morning currently nothing by mouth and scheduled to undergo repeat bronchoscopy as follow-up chest x-ray showed near complete opacification on the left as well status post bronchoscopy yesterday. Patient is lethargic but arousable and will adjust the medications again and will discontinue Xanax. Patient worked with physical therapy this patient is significantly weak and has had multiple prolonged hospitalizations would likely be going to [facility] on discharge. Will await clearance from CT surgery pulmonary to discuss discharge planning. Patient is afebrile with no reports of worsening shortness of breath. Patient tolerating diet although given patient's lethargy will recommend aspiration precautions. 04/03/2023 Patient is evaluated today sitting up in the chair, currently wearing BiPAP. Patient underwent bronchoscopy today with Dr. Oshea pending surgical report. Chest xray reveals extensive pleural parenchymal opacity left hemithorax some interval improvement of the aeration of the left lung. Worsening small - to moderate right pleural effusion with adjacent atelectasis and or consolidation. Patient continues on IV lasix 20 mg IV Q12h. Magnesium today 1.5. 04/04/2023 Patient evaluated today sitting up in the chair. Currently on nasal cannula wanting to try and eat breakfast. She is tachypneic using accessory muscles to take a deep breath. She has minimal aeration over the left lung with chest xray today showing near complete white out of the left hemithorax, aeration worsening from yesterday. A small portion of the left upper lung remains aerated now. Ongoing small to moderate left pleural effusion adjacent atelectasis and or consolidation. Patient underwent bronchoscopy again this morning due to the mucus plugging of the left mainstem bronchus. Patient had thick yellow sputum s uctioned from the left main bronchus. Continues on IV lasix 20 mg Q12h, and additionally, has been started on IV steroids toda by pulmonary team. proBNP 2910. Sodium 135, potassium 4.6, BUN 13, creatinine 0.55, magnesium 1.8, glucose 228. 04/05/2023 Patient is seen in follow-up today currently awaiting to undergo bronchoscopy again with cardiothoracic surgery on 04/06/2023. Chest x-ray continues to show near complete opacification on the left. Patient continues with ongoing bilateral pleural effusions and is maintained on IV Lasix. Patient started on IV steroids with pulmonary following closely and blood sugars are completely uncontrolled in the 500s. Will initiate insulin drip and continue with protocol and Accu-Cheks every hour and tighter glycemic control. Patient will be nothing by mouth at midnight again for bronchoscopy and will await report. Will discuss further with CT surgery regarding overall treatment plan. Patient with significant weakness recommend physical therapy daily. Patient needs Encouraged increased activity as tolerated as patient has been mostly sitting and sleeping throughout most of hospitalization. 04/06/2023 Patient is seen in follow-up today currently sitting up in the chair awaiting to undergo repeat bronchoscopy with CT surgery today. Patient continues on 4-5 L via nasal cannula reporting continued shortness of breath. Patient's blood sugars are more controlled and patient is maintained on insulin drip and was currently nothing by mouth for the procedure. Will await surgical report and continue insulin drip for now with close monitoring to monitor for any episodes of hypoglycemia. Patient is afebrile denies chest pain or palpitations. Review of systems: Constitutional: No reports of fatigue, fever, or chills Cardiovascular: No reports of chest pain or palpitations Respiratory: No reports of worsening shortness of breath or cough, but reports continued shortness of breath with minimal exertion GI: No reports of nausea, vomiting, or diarrhea : No reports of dysuria or retention Neurovascular: reports of generalized weakness All medications have been reviewed PHYSICAL EXAMINATION: Patient is sitting up in chair,, awake, alert and oriented. Well-developed, well-nourished. Elderly-appearing. obese HEENT: Normocephalic. Neck is supple. Pupils reactive. Nostrils clear. Oral cavity is moist. Neck reveals no JVD, carotid bruits, or thyromegaly. CHEST EXAMINATION: Trachea is central. Symmetrical expansion with weak inspiration. Left basilar diminished sounds. No wheezing or rhonchi. CARDIAC: Normal S1, S2 with no gallops. No murmurs ABDOMEN: Soft. Bowel sounds present. Nontender. No organomegaly. No abdominal bruits. Extremities: Lower extremity trace edema. No clubbing or cyanosis Neurologically awake, alert, oriented x3, right-sided weakness. Able to move extremities while in bed. Skin: No rash or skin lesions. Psychiatric: Cooperative. Non-suicidal, anxious Musculoskeletal: No joint swelling or deformity. Assessment: Worsening shortness of breath secondary to persistent left lower lobe atelectasis/collapse despite multiple bronchoscopies during recent admission and Pleural effusion. Patient is status post 2 bronchoscopies this admission and underwent bronchoscopy repeat 04/04/23 with suctioning of thick yellow secretions. Patient scheduled for bronchoscopy today with CT surgery. Haemophilus influenza pneumonia. Recent BAL culture showed haemophilus. Paroxysmal atrial fibrillation with rapid ventricular rate. Patient has new onset A-fib on 03/21/2023. Continued on amiodarone. Not on anticoagulation Pulmonary adenocarcinoma with recent left upper lobe resection on 03/15/2023 Acute on chronic hypoxic respiratory failure requiring 3-4 L oxygen via nasal cannula on admission. Patient was at 2 L during recent discharge. Severe tracheal bronchomalacia COPD History of CVA with right-sided weakness Diabetes type 2 Hypertension Hyperlipidemia History of hepatitis B&C History of alcohol abuse and hides abuse Anxiety/depression and PTSD/bipolar. Currently everyday smoker, reports to quitting on last admission obesity with a bmi of 30.8 GI and DVT prophylaxis Plan: Patient will be continued on telemetry monitoring. Continue with amiodarone. Patient is currently not on anticoagulation as per surgical recommendation. CT surgery is on board and discussing about lobectomy. Chest CT ordered and continues to show complete opacification on the left. Follow-up chest x-ray shows near complete opacification on the left and there was noted to be significant mucus plugging and secretions noted on yesterday's bronchoscopy. Patient underwent bronchoscopy on 04/02 and again on 04/04. scheduled for bronchoscopy with CT surgery again today which is pending at this time. Continued on IV Lasix 20 mg every 12. Will follow up on repeat labs and monitor electrolytes and kidney functions closely Continue with DuoNebs and Pulmicort with Mucomyst Blood sugars remain elevated will continue on insulin drip for now and monitor patient closely as she is nothing by mouth for bronchoscopy today. continue with Accu-Cheks every hour per protocol. Recommend PT/OT therapy daily as patient has been mostly sitting and laying in bed and has not been up in motivating and walking to the bathroom. Case management planning on ECF once stabilized and cleared by consultations Encouraged continued incentive spirometer use at least 10 times every hour while awake Recommend holding SILK FOLDER and narcotic agents if patient is lethargic. Medications have been adjusted to lesser dose and Xanax has been discontinued Due to Multiple complex medical issues, Overall Prognosis is guarded. The impression and plan of care has been dictated by Raehl Crabtree, Nurse Practitioner as directed. Dr. John MD I have performed a history and examination and MDM of this patient, discussed the same with the dictator, and agree with the dictator's assessment and plan as written ,documented as a scribe. Based on total visit time, I have performed more than 50% of the visit. Objective - Vital Signs Vital signs: Vital Signs Temp 97.9 F 04/06/23 11:11 Pulse 59 L 04/06/23 13:40 Resp 20 04/06/23 13:40 BP 139/60 04/06/23 13:40 Pulse Ox 90 L 04/06/23 13:40 FiO2 50 04/06/23 13:26 Intake & Output 04/05/23 04/06/23 04/06/23 18:59 06:59 18:59 Intake Total 237.227 291.899 406.583 Output Total 250 350 Balance 237.227 41.899 56.583 Weight 94 kg 95.3 kg Intake: IV 400 Intake, IV Titration 17.227 51.899 6.583 Amount Insulin Regular 100 unit 17.227 51.899 6.583 In Sodium Chloride 0.9% 100 ml @ Titrate IV .Q0M [facility] Rx#:[id number] Oral 220 240 Output: Urine 250 350 Other: Voiding Method Bedside Commode Toilet Toilet Bedside Commode Bedside Commode # Voids 1 1 - Labs CBC & Chem 7: 04/03/23 05:21 04/05/23 08:31 Labs: Abnormal Lab Results - Last 24 Hours (Table) 04/05/23 04/05/23 04/05/23 Range/Units 15:30 16:31 17:29 POC Glucose (mg/dL) 203 H 159 H 144 H (70-110) mg/dL 04/05/23 04/05/23 04/05/23 Range/Units 18:31 19:33 20:30 POC Glucose (mg/dL) 172 H 291 H 222 H (70-110) mg/dL 04/05/23 04/05/23 04/05/23 Range/Units 21:44 22:39 23:39 POC Glucose (mg/dL) 210 H 329 H 176 H (70-110) mg/dL 04/06/23 04/06/23 04/06/23 Range/Units 00:31 01:31 02:38 POC Glucose (mg/dL) 198 H 196 H 137 H (70-110) mg/dL 04/06/23 04/06/23 04/06/23 Range/Units 03:33 04:29 05:34 POC Glucose (mg/dL) 133 H 211 H 199 H (70-110) mg/dL 04/06/23 04/06/23 04/06/23 Range/Units 05:53 06:56 07:59 POC Glucose (mg/dL) 196 H 172 H 166 H (70-110) mg/dL 04/06/23 04/06/23 04/06/23 Range/Units 09:03 10:04 11:06 POC Glucose (mg/dL) 131 H 176 H 176 H (70-110) mg/dL 04/06/23 04/06/23 Range/Units 12:04 14:30 POC Glucose (mg/dL) 207 H 271 H (70-110) mg/dL
[2023-04-06 15:23] LABS: Basophils % (A) 0 %; Eosinophils # (A) 0.1 k/uL (0-0.7); Eosinophils % (A) 1 %; HCT 32.3 % (34.0-46.0); HGB 10.7 gm/dL (11.4-16.0); Hypochromasia Moderate; Lymphocytes # (A) 0.5 k/uL (1.0-4.8); Lymphocytes % (A) 7 %; MCH 31.7 pg (25.0-35.0); MCHC 33.3 g/dL (31.0-37.0); MCV 95.3 fL (80.0-100.0); Monocytes # (A) 0.2 k/uL (0-1.0); Monocytes % (A) 2 %; Neutrophils # (A) 6.3 k/uL (1.3-7.7); Neutrophils % (A) 89 %; Platelet Count 156 k/uL (150-450); Poikilocytosis Slight; RBC 3.39 m/uL (3.80-5.40); RDW 13.9 % (11.5-15.5); WBC 7.1 k/uL (3.8-10.6)
[2023-04-06 15:44] LABS: ABG Base Excess 9.3 mmol/L; ABG HCO3 34 mmol/L (21-25); ABG PCO2 54 mmHg (35-45); ABG PH 7.41 (7.35-7.45); ABG TCO2 36 mmol/L (19-24); Allen Test Performed? Yes
[2023-04-06 15:46] LABS: ABG PO2 58 mmHg (83-108)
[2023-04-06 15:52] LABS: African American GFR (CKD) >90 (>60 ml/min/1.73 sqM); Anion Gap 8 mmol/L; Blood Urea Nitrogen 20 mg/dL (7-17); Calcium 7.6 mg/dL (8.4-10.2); Carbon Dioxide 31 mmol/L (22-30); Chloride 96 mmol/L (98-107); Glucose 254 mg/dL (74-99); Magnesium 1.6 mg/dL (1.6-2.3); Non-African American GFR(CKD) >90 (>60 ml/min/1.73 sqM); Potassium 3.8 mmol/L (3.5-5.1); Sodium 135 mmol/L (137-145)
[2023-04-06 16:07] LABS: Glucose,Whole Blood 293 mg/dL (70-110)
--- NOTE | 2023-04-06 16:16 | P.PN ---
Subjective Progress Note Date: 04/06/23 Principal diagnosis: Shortness of breath. Patient was evaluated today on 04/01/23, a is basically about the same, patient was seen by thoracic surgery and she was told that she will undergo bronchoscopy today. Patient is comfortable, chest x-ray all along has been showing complete opacification of the left lung, hopefully this bronchoscopy would be better than previous bronchoscopy and more beneficial however considering the patient already had 4 bronchoscopies and did not improve her lung condition, I doubt that this will. However this bronchoscopy is being done by thoracic surgery/Dr. June The patient is seen today 04/02/2023 in follow-up on the regular medical floor. She is currently sitting up in a chair. Awake and alert in no acute distress. She is maintaining good O2 saturations in the 90s on 2 L/m per nasal cannula. White count 8.1. Hemoglobin 10.4. Platelets 160. Sodium 135. Potassium 3.8. Bicarb 32. BUN 13. Creatinine 0.7. Glucose 164. Chest x-ray continues to show similar opacification of left lung will occur rectal secondary to atelecta sis and large pleural effusion. No pneumothorax visualized. Enlarging right pleural effusion now small to moderate. She did undergo bronchoscopy yesterday with Dr. June and the plan is to return for another bronchoscopy again today. She is continued on DuoNeb inhalations, Symbicort, Mucinex, Mucomyst, antibiotics in the form of Unasyn. Heparin for DVT prophylaxis. The patient is seen today 04/03/2023 in follow-up on the regular medical floor. She is currently sitting up in a chair at the bedside. Awake and alert in no acute distress. She is maintaining good O2 saturations in the 90s on 2 L/m per nasal cannula. Blood cultures reveal no growth. White count 6.8. Hemoglobin 11.7. Platelets 127. Sodium 136. Potassium 4.1. Bicarb 32. BUN 12. Creatinine 0.8. Glucose 149. Remains on antibiotics in the form of Unasyn. Continued on bronchodilators, Mucomyst, Mucinex. Continued on IV diuretics. Heparin for DVT prophylaxis. The patient is seen today 04/04/2023 in follow-up on the regular medical floor. She did utilize BiPAP through the night 10/5 and 30% FiO2. Otherwise utilizing oxygen at 3 L/m per nasal cannula. She did undergo another bronchoscopy with BAL per CT services today. Chest x-ray continues to show near complete white out of the left hemithorax. Small portion left upper lung mass remains aerated now. Ongoing small to moderate right effusion with adjacent atelectasis. She is encouraged regarding increased use the incentive spirometer. Increase activity as tolerated. Remains on antibiotics in the form of Unasyn. Remains on Symbicort, DuoNeb inhalations, Solu-Medrol, Mucinex and Mucomyst. Heparin for DVT prophylaxis. Remains on IV diuretics. Sodium 135. Potassium 4.6. Bicarb 31. BUN 13. Creatinine 0.55. Glucose 154. ProBNP 2910. Progress note dated 04/05/2023. 57-year-old female with a previous recent history of left upper lobectomy for lung cancer. The patient has been in and out of the hospital multiple times, is required multiple bronchoscopies, for left lung collapse. Currently, the patient is seen today in room 364. She is on 4 L of oxygen. She's getting saline at 10 mL an hour. Her most recent chest x-ray shows partial left lung collapse. Current labs include a sodium 136, potassium 3.9, chlorides 96, CO2 31, BUN 15, creatinine 0.56. Glucose is 198. Calcium is 8.2. Chest x-ray shows postsurgical volume loss, left hemithorax, with slight improvement overall. Progress note dated 04/06/2023. 57-year-old female, who is seen today in room 263. The patient was previously room 364. She underwent bronchoscopy today, with Dr. June, and came back, to the intensive care unit, on the mechanical ventilator. She's getting saline at 125 mL an hour. She is on propofol at 45 mcg/kg/m. Her ventilator settings include the volume assist control, rate 20, tidal volume 350, FiO2 50%, and PEEP of 5. I've asked the nurse, to have respiratory bump up the PEEP from 5 to 8 cm water, and increase the FiO2 up to 60%. Blood gases, on the previous setting show pO2 of 58, pCO2 54, and a pH is 7.41. That was on 50% FiO2, and 5 of PEEP. Additional labs include a white count of 7.1, hemoglobin 10.7, hematocrit 32.3, and a normal platelet count. Sodium 135, potassium 3.8, chlorides 96, CO2 31, BUN 20, creatinine 0.59. Objective - Vital Signs Vital signs: Vital Signs Temp 97.9 F 04/06/23 11:11 Pulse 50 L 04/06/23 15:49 Resp 20 04/06/23 15:00 BP 111/51 04/06/23 15:00 Pulse Ox 93 L 04/06/23 15:00 FiO2 50 04/06/23 15:30 Intake & Output 04/05/23 04/06/23 04/06/23 18:59 06:59 18:59 Intake Total 237.227 291.899 614.445 Output Total 250 385 Balance 237.227 41.899 229.445 Weight 94 kg 95.3 kg Intake: IV 600 Ampicillin-Sulbactam 1.5 50 gm In Sodium Chloride 0.9 % 50 ml @ 100 mls/hr IVPB Q8HR [facility] Rx#:[id number] Sodium Chloride 0.9% 1, 150 000 ml @ 75 mls/hr IV . [id number] [facility] Rx#:[id number] Intake, IV Titration 17.227 51.899 14.445 Amount Insulin Regular 100 unit 17.227 51.899 6.583 In Sodium Chloride 0.9% 100 ml @ Titrate IV .Q0M [facility] Rx#:[id number] propofoL 1,000 mg In 7.862 Empty Bag 1 bag @ 15 MCG/ KG/MIN 8.577 mls/hr IV . [id number] [facility] Rx#:[id number] Oral 220 240 Output: Urine 250 385 Other: Voiding Method Bedside Commode Toilet Indwelling Catheter Bedside Commode # Voids 1 1 - Exam No acute distress, sedated, with an orally placed endotracheal tube, and NG t ube. HEENT examination is grossly unremarkable. Neck supple. Full range of motion. No adenopathy thyromegaly or neck vein distention. Cardiovascular examination reveals regular rhythm rate. S1-S2 normal. No S3 or S4. No discernible murmur noted. Heart rate is 71 bpm. Lungs reveal diminished breath sounds on the left. Mild scattered rhonchi are noted. No wheezes or crackles. Right lung is clear. Abdomen soft bowel sounds are heard. No masses or tenderness. Extremities are intact. No cyanosis clubbing or edema. Skin is without rash or lesion. Neurologic examination cannot be currently assessed. - Labs CBC & Chem 7: 04/06/23 15:09 04/06/23 15:09 Labs: Abnormal Lab Results - Last 24 Hours (Table) 04/05/23 04/05/23 04/05/23 Range/Units 16:31 17:29 18:31 RBC (3.80-5.40) m/uL Hgb (11.4-16.0) gm/dL Hct (34.0-46.0) % Lymphocytes # (1.0-4.8) k/uL ABG pCO2 (35-45) mmHg ABG pO2 (83-108) mmHg ABG HCO3 (21-25) mmol/L ABG Total CO2 (19-24) mmol/L ABG O2 Saturation (94-97) % Sodium (137-145) mmol/L Chloride (98-107) mmol/L Carbon Dioxide (22-30) mmol/L BUN (7-17) mg/dL Glucose (74-99) mg/dL POC Glucose (mg/dL) 159 H 144 H 172 H (70-110) mg/dL Calcium (8.4-10.2) mg/dL 04/05/23 04/05/23 04/05/23 Range/Units 19:33 20:30 21:44 RBC (3.80-5.40) m/uL Hgb (11.4-16.0) gm/dL Hct (34.0-46.0) % Lymphocytes # (1.0-4.8) k/uL ABG pCO2 (35-45) mmHg ABG pO2 (83-108) mmHg ABG HCO3 (21-25) mmol/L ABG Total CO2 (19-24) mmol/L ABG O2 Saturation (94-97) % Sodium (137-145) mmol/L Chloride (98-107) mmol/L Carbon Dioxide (22-30) mmol/L BUN (7-17) mg/dL Glucose (74-99) mg/dL POC Glucose (mg/dL) 291 H 222 H 210 H (70-110) mg/dL Calcium (8.4-10.2) mg/dL 04/05/23 04/05/23 04/06/23 Range/Units 22:39 23:39 00:31 RBC (3.80-5.40) m/uL Hgb (11.4-16.0) gm/dL Hct (34.0-46.0) % Lymphocytes # (1.0-4.8) k/uL ABG pCO2 (35-45) mmHg ABG pO2 (83-108) mmHg ABG HCO3 (21-25) mmol/L ABG Total CO2 (19-24) mmol/L ABG O2 Saturation (94-97) % Sodium (137-145) mmol/L Chloride (98-107) mmol/L Carbon Dioxide (22-30) mmol/L BUN (7-17) mg/dL Glucose (74-99) mg/dL POC Glucose (mg/dL) 329 H 176 H 198 H (70-110) mg/dL Calcium (8.4-10.2) mg/dL 04/06/23 04/06/23 04/06/23 Range/Units 01:31 02:38 03:33 RBC (3.80-5.40) m/uL Hgb (11.4-16.0) gm/dL Hct (34.0-46.0) % Lymphocytes # (1.0-4.8) k/uL ABG pCO2 (35-45) mmHg ABG pO2 (83-108) mmHg ABG HCO3 (21-25) mmol/L ABG Total CO2 (19-24) mmol/L ABG O2 Saturation (94-97) % Sodium (137-145) mmol/L Chloride (98-107) mmol/L Carbon Dioxide (22-30) mmol/L BUN (7-17) mg/dL Glucose (74-99) mg/dL POC Glucose (mg/dL) 196 H 137 H 133 H (70-110) mg/dL Calcium (8.4-10.2) mg/dL 04/06/23 04/06/23 04/06/23 Range/Units 04:29 05:34 05:53 RBC (3.80-5.40) m/uL Hgb (11.4-16.0) gm/dL Hct (34.0-46.0) % Lymphocytes # (1.0-4.8) k/uL ABG pCO2 (35-45) mmHg ABG pO2 (83-108) mmHg ABG HCO3 (21-25) mmol/L ABG Total CO2 (19-24) mmol/L ABG O2 Saturation (94-97) % Sodium (137-145) mmol/L Chloride (98-107) mmol/L Carbon Dioxide (22-30) mmol/L BUN (7-17) mg/dL Glucose (74-99) mg/dL POC Glucose (mg/dL) 211 H 199 H 196 H (70-110) mg/dL Calcium (8.4-10.2) mg/dL 04/06/23 04/06/23 04/06/23 Range/Units 06:56 07:59 09:03 RBC (3.80-5.40) m/uL Hgb (11.4-16.0) gm/dL Hct (34.0-46.0) % Lymphocytes # (1.0-4.8) k/uL ABG pCO2 (35-45) mmHg ABG pO2 (83-108) mmHg ABG HCO3 (21-25) mmol/L ABG Total CO2 (19-24) mmol/L ABG O2 Saturation (94-97) % Sodium (137-145) mmol/L Chloride (98-107) mmol/L Carbon Dioxide (22-30) mmol/L BUN (7-17) mg/dL Glucose (74-99) mg/dL POC Glucose (mg/dL) 172 H 166 H 131 H (70-110) mg/dL Calcium (8.4-10.2) mg/dL 04/06/23 04/06/23 04/06/23 Range/Units 10:04 11:06 12:04 RBC (3.80-5.40) m/uL Hgb (11.4-16.0) gm/dL Hct (34.0-46.0) % Lymphocytes # (1.0-4.8) k/uL ABG pCO2 (35-45) mmHg ABG pO2 (83-108) mmHg ABG HCO3 (21-25) mmol/L ABG Total CO2 (19-24) mmol/L ABG O2 Saturation (94-97) % Sodium (137-145) mmol/L Chloride (98-107) mmol/L Carbon Dioxide (22-30) mmol/L BUN (7-17) mg/dL Glucose (74-99) mg/dL POC Glucose (mg/dL) 176 H 176 H 207 H (70-110) mg/dL Calcium (8.4-10.2) mg/dL 04/06/23 04/06/23 04/06/23 Range/Units 14:30 15:09 15:09 RBC 3.39 L (3.80-5.40) m/uL Hgb 10.7 L (11.4-16.0) gm/dL Hct 32.3 L (34.0-46.0) % Lymphocytes # 0.5 L (1.0-4.8) k/uL ABG pCO2 (35-45) mmHg ABG pO2 (83-108) mmHg ABG HCO3 (21-25) mmol/L ABG Total CO2 (19-24) mmol/L ABG O2 Saturation (94-97) % Sodium 135 L (137-145) mmol/L Chloride 96 L (98-107) mmol/L Carbon Dioxide 31 H (22-30) mmol/L BUN 20 H (7-17) mg/dL Glucose 254 H (74-99) mg/dL POC Glucose (mg/dL) 271 H (70-110) mg/dL Calcium 7.6 L (8.4-10.2) mg/dL 04/06/23 04/06/23 Range/Units 15:41 15:54 RBC (3.80-5.40) m/uL Hgb (11.4-16.0) gm/dL Hct (34.0-46.0) % Lymphocytes # (1.0-4.8) k/uL ABG pCO2 54 H (35-45) mmHg ABG pO2 58 L* (83-108) mmHg ABG HCO3 34 H (21-25) mmol/L ABG Total CO2 36 H (19-24) mmol/L ABG O2 Saturation 90.0 L (94-97) % Sodium (137-145) mmol/L Chloride (98-107) mmol/L Carbon Dioxide (22-30) mmol/L BUN (7-17) mg/dL Glucose (74-99) mg/dL POC Glucose (mg/dL) 293 H (70-110) mg/dL Calcium (8.4-10.2) mg/dL Assessment and Plan Assessment: Status post bronchoscopy, with suctioning of airway secretions, currently requiring intubation, and mechanical ventilation, 04/06/2023. Left lung collapse, essentially the left lower lobe secondary to mucous plugs. Bronchoscopy was done during the earlier hospitalization the patient was found to have mucous plugs, significant tracheobronchomalacia, narrowing of the left lower lobe bronchial orifice. Currently on Unasyn. Plan is for daily bronchoscopy per CT services and placed on BiPAP 04/03/2023. Acute on chronic shortness of breath without any worsening in her hypoxemia. The patient's shortness of breath is multifactorial. Obviously she has underg one a left upper lobe resection. She has also complete atelectasis of left lower lobe and several attempts to reexpand the lung on the left has failed as the patient has significant tracheal bronchomalacia, mucus, Haemophilus influenza pneumonia and narrowing of the left lower lobe orifice as noted on several bronchoscopies. The left lung remains unchanged. The acute decompensation could be related to A. fib which is paroxysmal and the patient may have some interval worsening in her volume status. As such, the patient was hospitalized. ProBNP level is elevated. Remains on IV diuretics. Persistent left lower lobe atelectasis. Computed tomography scan of the chest 03/30/2023 revealed increased consolidation and collapse of the left lower lobe with essentially no residual aerated lung seen. Small to moderate size left pleural effusion however pneumothorax component of this has essentially resolved. Small mucous secretions along the tracheal wall and thoracic inlet. Right hilar adenopathy likely present on prior unenhanced study and suspected unchanged. Moderate right pleural effusions. Previous right upper lobe groundglass infiltrates have resolved. Pulmonary adenocarcinoma with a 1.5 cm mass in the left upper lobe. On 03/15/2023 she had undergone a robotically assisted thoracoscopic left upper lobectomy with mediastinal lymph node dissection, for early stage NSCLC. The final pathologic staging is T1b N1 M0 disease. Acute hypoxic respiratory failure currently on 4 L of oxygen nasal cannula. Tracheobronchomalacia, severe. Paroxysmal atrial fibrillation. History of chronic obstructive pulmonary disease. Chronic tobacco dependence. History of CVA. History of diabetes mellitus. History of hypertension. History of hyperlipidemia. History of alcohol abuse and heroin abuse. History of hepatitis B and C. Plan: Plan dated 04/05/2023. The patient was seen and evaluated. The patient is currently on 4 L of oxygen. Saturations are 96%. The patient is receiving saline at 10 mL an hour. Labs, and x-rays are evaluated. Chest x-ray is about the same, or mildly improved. We will continue to follow make recommendations along the way. The patient will continue on bronchodilators, and BiPAP, as tolerated. The patient should also do incentive spirometer, every hour while awake, and be encouraged to deep breathe, cough, and clear secretions. We will continue to follow make recommendations where appropriate. Prognosis is guarded. Plan dated 04/06/2023. The patient returned back to the intensive care unit, on the mechanical vent ilator. Ventilator changes have been made. Gases have been evaluated. The patient is currently on propofol for sedation, at 45 mcg/kg/m. The patient's on saline at 125 mL an hour. Morning labs, x-rays, and blood gases will be done. Cardiothoracic surgery may wish to do bronchoscopy on this patient again tomorrow, and it will be easily facilitated, while the patient is on chemical ventilation. Additional recommendations and suggestions are forthcoming. Labs, x-rays, and medications are reviewed. Time with Patient: Greater than 30
[2023-04-06] MEDS ORDERED: Magnesium Replacement Protocol 1 EACH MISC MISCELLANE PRN ×2 (16:24)
[2023-04-06] MEDS ORDERED: MAGNESIUM SULFATE-D5W PMX 1 GM in DEXTROSE/WATER 1 100ML.BAG IVPB ONE (16:24)
[2023-04-06] MEDS ORDERED: Potassium Replacement Protocol 1 EACH MISC MISCELLANE PRN (16:25)
[2023-04-06] MEDS: MAGNESIUM SULFATE-D5W PMX 1 GM in DEXTROSE/WATER 1 100ML.BAG IVPB SCH ×2 (16:37→18:38)
[2023-04-06] MEDS ORDERED: POTASSIUM BICARBONATE/CIT AC 20 MEQ TABLET.EFF NG-TUBE SCH (17:00)
[2023-04-06 17:06] LABS: Glucose,Whole Blood 240 mg/dL (70-110)
[2023-04-06] MEDS: INSULIN REGULAR 100 UNIT in SODIUM CHLORIDE 0.9% 100 ML IV SCH (17:08)
[2023-04-06 18:01] LABS: Glucose,Whole Blood 249 mg/dL (70-110)
[2023-04-06 19:05] LABS: Glucose,Whole Blood 203 mg/dL (70-110)
[2023-04-06 20:04] LABS: Glucose,Whole Blood 238 mg/dL (70-110)
[2023-04-06 21:11] LABS: Glucose,Whole Blood 180 mg/dL (70-110)
[2023-04-06] MEDS: CHLORHEXIDINE GLUCONATE 15 ML CUP MUCOUS MEM SCH (21:18)
[2023-04-06 22:02] LABS: Glucose,Whole Blood 150 mg/dL (70-110)
[2023-04-06 23:04] LABS: Glucose,Whole Blood 112 mg/dL (70-110)
[2023-04-06] MEDS: IPRATROPIUM-ALBUTEROL 3 ML NEB INHALATION PRN (23:48)
[2023-04-06 23:58] LABS: Glucose,Whole Blood 98 mg/dL (70-110)
[2023-04-07 01:06] LABS: Glucose,Whole Blood 147 mg/dL (70-110)
[2023-04-07 01:56] LABS: Glucose,Whole Blood 142 mg/dL (70-110)
[2023-04-07] MEDS: HYDROcodone/APAP 5-325MG 1 EACH TAB PO PRN ×3 (02:26→21:10)
[2023-04-07 03:00] LABS: Glucose,Whole Blood 121 mg/dL (70-110)
[2023-04-07] MEDS: IPRATROPIUM-ALBUTEROL 3 ML NEB INHALATION PRN (03:45)
[2023-04-07 04:01] LABS: Glucose,Whole Blood 156 mg/dL (70-110)
[2023-04-07 05:03] LABS: Glucose,Whole Blood 195 mg/dL (70-110)
[2023-04-07 05:46] LABS: HCT 36.7 % (34.0-46.0); Hypochromasia Moderate; MCH 31.1 pg (25.0-35.0); MCHC 32.6 g/dL (31.0-37.0); MCV 95.3 fL (80.0-100.0); Mean Platelet Volume 8.6; Platelet Count 148 k/uL (150-450); Poikilocytosis Slight; RBC 3.85 m/uL (3.80-5.40); WBC 7.5 k/uL (3.8-10.6)
[2023-04-07 06:00] LABS: Glucose,Whole Blood 180 mg/dL (70-110)
[2023-04-07] MEDS: SODIUM CHLORIDE 0.9% 1,000 ML IV SCH ×2 (06:04→20:57)
[2023-04-07] MEDS: FUROSEMIDE 10 MG/ML 2 ML VIAL IV SCH ×2 (06:05→17:48)
[2023-04-07 06:07] LABS: ALT 26 U/L (4-34); AST 39 U/L (14-36); African American GFR (CKD) >90 (>60 ml/min/1.73 sqM); Albumin 2.7 g/dL (3.5-5.0); Alkaline Phosphatase 71 U/L (38-126); Anion Gap 8 mmol/L; Blood Urea Nitrogen 21 mg/dL (7-17); Calcium 8.1 mg/dL (8.4-10.2); Carbon Dioxide 32 mmol/L (22-30); Chloride 98 mmol/L (98-107); Glucose 150 mg/dL (74-99); Non-African American GFR(CKD) >90 (>60 ml/min/1.73 sqM); Potassium 3.9 mmol/L (3.5-5.1); Sodium 138 mmol/L (137-145); Total Bilirubin 0.6 mg/dL (0.2-1.3); Total Protein 6.1 g/dL (6.3-8.2)
[2023-04-07 06:21] LABS: ABG Base Excess 10.2 mmol/L; ABG HCO3 35 mmol/L (21-25); ABG PCO2 52 mmHg (35-45); ABG PH 7.43 (7.35-7.45); ABG PO2 73 mmHg (83-108); ABG TCO2 36 mmol/L (19-24); Allen Test Performed? Yes
[2023-04-07 06:47] LABS: Glucose,Whole Blood 179 mg/dL (70-110)
[2023-04-07 07:04] LABS: Anisocytosis (M) Present; Band Neutrophils % 3 %; Lymphocytes # (M) 0.98 k/uL (1.0-4.8); Monocytes # (M) 0.45 k/uL (0-1.0); Neutrophils % (M) 78 %; Nucleated Red Blood Cells 0 /100 WBC (0-0); Total Cells Counted 100
--- NOTE | 2023-04-07 08:18 | P.PN ---
Subjective Progress Note Date: 04/07/23 Principal diagnosis: Shortness of breath, rapid atrial fibrillation present on admission. History of moderate to poorly differentiated pulmonary adenocarcinoma with 13 hilar lymph nodes positive for metastatic carcinoma status post robotic-assisted thoracoscopic left upper lobectomy with mediastinal lymph node dissection, postoperative paroxysmal atrial fibrillation, left lower lobe atelectasis and mucous plugging with tracheobronchial malacia status post bronchoscopy 3, ins ulin dependent diabetes with poor glycemic control, hypomagnesemia, current tobacco dependence with cessation prior to previous admission, moderate COPD, current daily EtOH use, hypertension, hyperlipidemia, stroke in 2016 with right- sided weakness, hepatitis B and C, bipolar depression, IV heroin use 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 Remains intubated and sedated. Currently sinus bradycardia with heart rate in the 50s, hemodynamically stable. Patient has undergone bronchoscopy 6 out of the last 7 days, extensive thick mucus has been removed each time. Decision was made yesterday to leave the patient intubated on the ventilator to continue to allow daily bronchoscopy. No other new conc erns. Objective - Vital Signs Vital signs: Vital Signs Temp 97.2 F L 04/07/23 04:00 Pulse 50 L 04/07/23 07:00 Resp 18 04/07/23 07:00 BP 128/59 04/07/23 07:00 Pulse Ox 99 04/07/23 07:00 FiO2 60 04/07/23 04:00 Intake & Output 04/06/23 04/07/23 04/07/23 18:59 06:59 18:59 Intake Total 316.358 1097.704 Output Total 510 1265 Balance 437.104 76.704 Weight 98.7 kg Intake: IV 850 1050 Ampicillin-Sulbactam 1.5 150 50 gm In Sodium Chloride 0.9 % 50 ml @ 100 mls/hr IVPB Q8HR [facility] Rx#:[id number] Magnesium Sulfate-D5w Pmx 100 1 gm In Dextrose/Water 1 100ml.bag @ 100 mls/hr IVPB ONCE ONE Rx#: [id number] Sodium Chloride 0.9% 1, 150 000 ml @ 75 mls/hr IV . [id number] [facility] Rx#:[id number] Sodium Chloride 0.9% 1, 150 900 000 ml @ 75 mls/hr IV . [id number] [facility] Rx#:[id number] Intake, IV Titration 97.104 291.704 Amount Insulin Regular 100 unit 14.670 33.918 In Sodium Chloride 0.9% 100 ml @ Titrate IV .Q0M [facility] Rx#:[id number] propofoL 1,000 mg In 82.434 257.786 Empty Bag 1 bag @ 15 MCG/ KG/MIN 8.577 mls/hr IV . [id number] [facility] Rx#:[id number] Output: Urine 510 1265 Other: Voiding Method Indwelling Catheter Indwelling Catheter - Exam CONSTITUTIONAL: Remains sedated and intubated, no acute distress RESPIRATORY: Lungs sounds diminished on the left. Respirations even, nonlabored on mechanical ventilation. Current ventilator settings FiO2 60%, PEEP 8, tidal volume 350, respiratory rate 20. 8.0 ET tube present, 23 at the lip CARDIOVASCULAR: S1, S2 present. Slow but regular rate and rhythm, sinus bradycardia on telemetry. Palpable peripheral pulses bilaterally. No edema present. No calf pain or tenderness noted. SCDs present. GASTROINTESTINAL: Abdomen soft, nontender, nondistended. Active bowel sounds present 4 quadrants. OG tube present to low intermittent suction GENITOURINARY: Cameron catheter present draining clear yellow urine, output 1645 mL in the last 24 hours INTEGUMENTARY: Skin is warm and dry NEUROLOGIC: Currently sedated with propofol - Allied health notes Allied health notes reviewed: nursing - Labs CBC & Chem 7: 04/07/23 04:44 04/07/23 04:44 Labs: Abnormal Lab Results - Last 24 Hours (Table) 04/06/23 04/06/23 04/06/23 Range/Units 07:59 09:03 10:04 RBC (3.80-5.40) m/uL Hgb (11.4-16.0) gm/dL Hct (34.0-46.0) % Plt Count (150-450) k/uL Lymphocytes # (1.0-4.8) k/uL Lymphocytes # (Manual) (1.0-4.8) k/uL ABG pCO2 (35-45) mmHg ABG pO2 (83-108) mmHg ABG HCO3 (21-25) mmol/L ABG Total CO2 (19-24) mmol/L ABG O2 Saturation (94-97) % Sodium (137-145) mmol/L Chloride (98-107) mmol/L Carbon Dioxide (22-30) mmol/L BUN (7-17) mg/dL Glucose (74-99) mg/dL POC Glucose (mg/dL) 166 H 131 H 176 H (70-110) mg/dL Calcium (8.4-10.2) mg/dL AST (14-36) U/L Total Protein (6.3-8.2) g/dL Albumin (3.5-5.0) g/dL 04/06/23 04/06/23 04/06/23 Range/Units 11:06 12:04 14:30 RBC (3.80-5.40) m/uL Hgb (11.4-16.0) gm/dL Hct (34.0-46.0) % Plt Count (150-450) k/uL Lymphocytes # (1.0-4.8) k/uL Lymphocytes # (Manual) (1.0-4.8) k/uL ABG pCO2 (35-45) mmHg ABG pO2 (83-108) mmHg ABG HCO3 (21-25) mmol/L ABG Total CO2 (19-24) mmol/L ABG O2 Saturation (94-97) % Sodium (137-145) mmol/L Chloride (98-107) mmol/L Carbon Dioxide (22-30) mmol/L BUN (7-17) mg/dL Glucose (74-99) mg/dL POC Glucose (mg/dL) 176 H 207 H 271 H (70-110) mg/dL Calcium (8.4-10.2) mg/dL AST (14-36) U/L Total Protein (6.3-8.2) g/dL Albumin (3.5-5.0) g/dL 04/06/23 04/06/23 04/06/23 Range/Units 15:09 15:09 15:41 RBC 3.39 L (3.80-5.40) m/uL Hgb 10.7 L (11.4-16.0) gm/dL Hct 32.3 L (34.0-46.0) % Plt Count (150-450) k/uL Lymphocytes # 0.5 L (1.0-4.8) k/uL Lymphocytes # (Manual) (1.0-4.8) k/uL ABG pCO2 54 H (35-45) mmHg ABG pO2 58 L* (83-108) mmHg ABG HCO3 34 H (21-25) mmol/L ABG Total CO2 36 H (19-24) mmol/L ABG O2 Saturation 90.0 L (94-97) % Sodium 135 L (137-145) mmol/L Chloride 96 L (98-107) mmol/L Carbon Dioxide 31 H (22-30) mmol/L BUN 20 H (7-17) mg/dL Glucose 254 H (74-99) mg/dL POC Glucose (mg/dL) (70-110) mg/dL Calcium 7.6 L (8.4-10.2) mg/dL AST (14-36) U/L Total Protein (6.3-8.2) g/dL Albumin (3.5-5.0) g/dL 04/06/23 04/06/23 04/06/23 Range/Units 15:54 17:05 17:59 RBC (3.80-5.40) m/uL Hgb (11.4-16.0) gm/dL Hct (34.0-46.0) % Plt Count (150-450) k/uL Lymphocytes # (1.0-4.8) k/uL Lymphocytes # (Manual) (1.0-4.8) k/uL ABG pCO2 (35-45) mmHg ABG pO2 (83-108) mmHg ABG HCO3 (21-25) mmol/L ABG Total CO2 (19-24) mmol/L ABG O2 Saturation (94-97) % Sodium (137-145) mmol/L Chloride (98-107) mmol/L Carbon Dioxide (22-30) mmol/L BUN (7-17) mg/dL Glucose (74-99) mg/dL POC Glucose (mg/dL) 293 H 240 H 249 H (70-110) mg/dL Calcium (8.4-10.2) mg/dL AST (14-36) U/L Total Protein (6.3-8.2) g/dL Albumin (3.5-5.0) g/dL 04/06/23 04/06/23 04/06/23 Range/Units 19:03 20:03 21:10 RBC (3.80-5.40) m/uL Hgb (11.4-16.0) gm/dL Hct (34.0-46.0) % Plt Count (150-450) k/uL Lymphocytes # (1.0-4.8) k/uL Lymphocytes # (Manual) (1.0-4.8) k/uL ABG pCO2 (35-45) mmHg ABG pO2 (83-108) mmHg ABG HCO3 (21-25) mmol/L ABG Total CO2 (19-24) mmol/L ABG O2 Saturation (94-97) % Sodium (137-145) mmol/L Chloride (98-107) mmol/L Carbon Dioxide (22-30) mmol/L BUN (7-17) mg/dL Glucose (74-99) mg/dL POC Glucose (mg/dL) 203 H 238 H 180 H (70-110) mg/dL Calcium (8.4-10.2) mg/dL AST (14-36) U/L Total Protein (6.3-8.2) g/dL Albumin (3.5-5.0) g/dL 04/06/23 04/06/23 04/07/23 Range/Units 22:01 23:01 00:51 RBC (3.80-5.40) m/uL Hgb (11.4-16.0) gm/dL Hct (34.0-46.0) % Plt Count (150-450) k/uL Lymphocytes # (1.0-4.8) k/uL Lymphocytes # (Manual) (1.0-4.8) k/uL ABG pCO2 (35-45) mmHg ABG pO2 (83-108) mmHg ABG HCO3 (21-25) mmol/L ABG Total CO2 (19-24) mmol/L ABG O2 Saturation (94-97) % Sodium (137-145) mmol/L Chloride (98-107) mmol/L Carbon Dioxide (22-30) mmol/L BUN (7-17) mg/dL Glucose (74-99) mg/dL POC Glucose (mg/dL) 150 H 112 H 147 H (70-110) mg/dL Calcium (8.4-10.2) mg/dL AST (14-36) U/L Total Protein (6.3-8.2) g/dL Albumin (3.5-5.0) g/dL 04/07/23 04/07/23 04/07/23 Range/Units 01:55 02:59 04:00 RBC (3.80-5.40) m/uL Hgb (11.4-16.0) gm/dL Hct (34.0-46.0) % Plt Count (150-450) k/uL Lymphocytes # (1.0-4.8) k/uL Lymphocytes # (Manual) (1.0-4.8) k/uL ABG pCO2 (35-45) mmHg ABG pO2 (83-108) mmHg ABG HCO3 (21-25) mmol/L ABG Total CO2 (19-24) mmol/L ABG O2 Saturation (94-97) % Sodium (137-145) mmol/L Chloride (98-107) mmol/L Carbon Dioxide (22-30) mmol/L BUN (7-17) mg/dL Glucose (74-99) mg/dL POC Glucose (mg/dL) 142 H 121 H 156 H (70-110) mg/dL Calcium (8.4-10.2) mg/dL AST (14-36) U/L Total Protein (6.3-8.2) g/dL Albumin (3.5-5.0) g/dL 04/07/23 04/07/23 04/07/23 Range/Units 04:44 04:44 05:01 RBC (3.80-5.40) m/uL Hgb (11.4-16.0) gm/dL Hct (34.0-46.0) % Plt Count 148 L (150-450) k/uL Lymphocytes # (1.0-4.8) k/uL Lymphocytes # (Manual) 0.98 L (1.0-4.8) k/uL ABG pCO2 (35-45) mmHg ABG pO2 (83-108) mmHg ABG HCO3 (21-25) mmol/L ABG Total CO2 (19-24) mmol/L ABG O2 Saturation (94-97) % Sodium (137-145) mmol/L Chloride (98-107) mmol/L Carbon Dioxide 32 H (22-30) mmol/L BUN 21 H (7-17) mg/dL Glucose 150 H (74-99) mg/dL POC Glucose (mg/dL) 195 H (70-110) mg/dL Calcium 8.1 L (8.4-10.2) mg/dL AST 39 H (14-36) U/L Total Protein 6.1 L (6.3-8.2) g/dL Albumin 2.7 L (3.5-5.0) g/dL 04/07/23 04/07/23 04/07/23 Range/Units 05:59 06:05 06:46 RBC (3.80-5.40) m/uL Hgb (11.4-16.0) gm/dL Hct (34.0-46.0) % Plt Count (150-450) k/uL Lymphocytes # (1.0-4.8) k/uL Lymphocytes # (Manual) (1.0-4.8) k/uL ABG pCO2 52 H (35-45) mmHg ABG pO2 73 L (83-108) mmHg ABG HCO3 35 H (21-25) mmol/L ABG Total CO2 36 H (19-24) mmol/L ABG O2 Saturation (94-97) % Sodium (137-145) mmol/L Chloride (98-107) mmol/L Carbon Dioxide (22-30) mmol/L BUN (7-17) mg/dL Glucose (74-99) mg/dL POC Glucose (mg/dL) 180 H 179 H (70-110) mg/dL Calcium (8.4-10.2) mg/dL AST (14-36) U/L Total Protein (6.3-8.2) g/dL Albumin (3.5-5.0) g/dL - Imaging and Cardiology Chest x-ray: image reviewed Assessment and Plan Assessment: Moderate to poorly differentiated pulmonary adenocarcinoma with 13 hilar lymph nodes positive for metastatic carcinoma status post robotic-assisted thoracoscopic left upper lobectomy with mediastinal lymph node dissection Postoperative paroxysmal atrial fibrillation currently sinus bradycardia Left lower lobe atelectasis and mucous plugging with tracheobronchial malacia status post multiple bronchoscopies Insulin dependent diabetes with poor glycemic control, hyperglycemia, A1c 8.8% Hypomagnesemia Current tobacco dependence with cessation prior to previous admission Moderate COPD, preoperative FEV1 54% of predicted, DLCO 36% of predicted Current daily EtOH use Hypertension Hyperlipidemia Stroke in 2016 with right-sided weakness Hepatitis B and C Bipolar depression History of IV heroin use with last use August 2018 Plan: Will plan to continue daily bronchoscopies, patient likely will remain intubated for the next few days to aid with bronchoscopy Ventilator management, steroids per pulmonology Continue Mucomyst, bronchodilators, Pulmicort Antibiotics stopped yesterday as they reached their stop date, monitor clinical course off antibiotics Diabetic management per internal medicine, patient needs tight blood sugar control Amiodarone decreased per protocol Medical management of other comorbidities per primary care service. More recommendations to follow based on patient's progress
[2023-04-07 08:23] LABS: Glucose,Whole Blood 144 mg/dL (70-110)
[2023-04-07] MEDS: ACETYLCYSTEINE 800 MG/4 ML VIAL INHALATION SCH ×3 (09:02→20:01)
[2023-04-07] MEDS: IPRATROPIUM-ALBUTEROL 3 ML NEB INHALATION SCH ×4 (09:03→20:01)
[2023-04-07] MEDS: BUDESONIDE 1 MG/2 ML NEBU INHALATION SCH ×2 (09:03→20:01)
[2023-04-07 09:05] LABS: Glucose,Whole Blood 102 mg/dL (70-110)
[2023-04-07] MEDS: FORMOTEROL FUMARATE 20 MCG/2 ML NEBU INHALATION SCH ×2 (09:06→20:01)
[2023-04-07 09:07] LABS: Glucose,Whole Blood 117 mg/dL (70-110)
[2023-04-07] MEDS ORDERED: CISATRACURIUM 2 MG/ML 5 ML VIAL IV ONE ×2 (09:18→09:38)
[2023-04-07] MEDS: HEPARIN SODIUM,PORCINE 5,000 UNIT/ML 1 ML VIAL SQ SCH ×2 (09:54→15:15)
[2023-04-07] MEDS: methylPREDNISolone SOD SUCCI 125 MG/2 ML VIAL IV SCH (09:55)
[2023-04-07] MEDS: PANTOPRAZOLE 40 MG TABLET PO SCH (09:56)
[2023-04-07] MEDS: THIAMINE 100 MG TAB PO SCH (09:56)
[2023-04-07] MEDS: AMIODARONE 200 MG TAB PO SCH ×2 (09:56→21:10)
[2023-04-07] MEDS: CHLORHEXIDINE GLUCONATE 15 ML CUP MUCOUS MEM SCH ×2 (09:56→21:10)
[2023-04-07] MEDS: guaiFENesin 600 MG TABLET.ER PO SCH ×2 (09:56→21:11)
[2023-04-07] MEDS: GABAPENTIN 400 MG CAP PO SCH ×3 (09:59→21:10)
[2023-04-07] MEDS: FOLIC ACID 1 MG TAB PO SCH (09:59)
[2023-04-07] MEDS: ATORVASTATIN 10 MG TAB PO SCH (09:59)
[2023-04-07] MEDS: SENNOSIDES 8.6 MG TAB PO SCH ×2 (09:59→21:11)
[2023-04-07 10:14] LABS: Glucose,Whole Blood 108 mg/dL (70-110)
--- NOTE | 2023-04-07 10:30 | PCN ---
PROCEDURE NOTE PROCEDURES PERFORMED: Bronchoscopy, airway examination, therapeutic lavage, BAL. DESCRIPTION OF PROCEDURE: There was informed consent and universal timeout. The patient's procedure was done in room 263. The patient was on the mechanical ventilator. There was informed consent and universal timeout. The gill box operator was Dr. Reynolds. The first surgical garment inspector was Dr. Nataly Barba. The patient was placed on 100% oxygen on the ventilator. The bronchoscope adapter was connected to the endotracheal tube. Once completed, once the patient back was sedated and paralyzed with Nimbex, the bronchoscope was inserted through the bronchoscope adapter, connected to the endotracheal tube. The bronchoscope was taken through the endotracheal tube, and out into the distal trachea. Next, there were significant secretions noted in the left lower lung. They were suctioned with the aid of saline lavage. The mucus plugs were removed without difficulty. The patient tolerated the procedure well. On the right side, there were some mucus plugging, and also, they were suctioned with the aid of saline. All the secretions were removed without difficulty. The bronchoscope was withdrawn. There was no immediate complication. The patient tolerated the procedure well. Respiratory therapy will start to wean down the FiO2 as the patient was on 100% during the procedure. There was no immediate complication. The patient tolerated the procedure well without difficulty. MMODL / IJN: [id number] /
--- NOTE | 2023-04-07 10:36 | XR ---
EXAMINATION TYPE: XR chest 1V portable DATE OF EXAM: 04/07/2023 Comparison: 04/06/2023 Clinical History: 57-year-old female left upper lobectomy Findings: ET tube tip just below the medial clavicular heads. NG tube courses below the diaphragm. Slight impro ving aeration left lung status post left temporal lobectomy. Ongoing moderate left effusion. Ongoing to slightly increased small right pleural effusion. Worsening diffuse interstitial densities in the r ight lung. Impression: 1. Post surgical volume loss left hemithorax. Underlying moderate left pleural effusion with adjacent atelectasis and or consolidation. Aeration in the left upper lung is slightly removed. 2. Similar to slight increasing small right pleural effusion. 3. Note continued worsening interstitial opacities throughout the right lung.
[2023-04-07 11:04] LABS: Glucose,Whole Blood 109 mg/dL (70-110)
--- NOTE | 2023-04-07 11:44 | P.PN ---
Subjective Progress Note Date: 04/07/23 Principal diagnosis: Shortness of breath. Patient was evaluated today on 04/01/23, a is basically about the same, patient was seen by thoracic surgery and she was told that she will undergo bronchoscopy today. Patient is comfortable, chest x-ray all along has been showing complete opacification of the left lung, hopefully this bronchoscopy would be better than previous bronchoscopy and more beneficial however considering the patient already had 4 bronchoscopies and did not improve her lung condition, I doubt that this will. However this bronchoscopy is being done by thoracic surgery/Dr. June The patient is seen today 04/02/2023 in follow-up on the regular medical floor. She is currently sitting up in a chair. Awake and alert in no acute distress. She is maintaining good O2 saturations in the 90s on 2 L/m per nasal cannula. White count 8.1. Hemoglobin 10.4. Platelets 160. Sodium 135. Potassium 3.8. Bicarb 32. BUN 13. Creatinine 0.7. Glucose 164. Chest x-ray continues to show similar opacification of left lung will occur rectal secondary to atelecta sis and large pleural effusion. No pneumothorax visualized. Enlarging right pleural effusion now small to moderate. She did undergo bronchoscopy yesterday with Dr. June and the plan is to return for another bronchoscopy again today. She is continued on DuoNeb inhalations, Symbicort, Mucinex, Mucomyst, antibiotics in the form of Unasyn. Heparin for DVT prophylaxis. The patient is seen today 04/03/2023 in follow-up on the regular medical floor. She is currently sitting up in a chair at the bedside. Awake and alert in no acute distress. She is maintaining good O2 saturations in the 90s on 2 L/m per nasal cannula. Blood cultures reveal no growth. White count 6.8. Hemoglobin 11.7. Platelets 127. Sodium 136. Potassium 4.1. Bicarb 32. BUN 12. Creatinine 0.8. Glucose 149. Remains on antibiotics in the form of Unasyn. Continued on bronchodilators, Mucomyst, Mucinex. Continued on IV diuretics. Heparin for DVT prophylaxis. The patient is seen today 04/04/2023 in follow-up on the regular medical floor. She did utilize BiPAP through the night 10/5 and 30% FiO2. Otherwise utilizing oxygen at 3 L/m per nasal cannula. She did undergo another bronchoscopy with BAL per CT services today. Chest x-ray continues to show near complete white out of the left hemithorax. Small portion left upper lung mass remains aerated now. Ongoing small to moderate right effusion with adjacent atelectasis. She is encouraged regarding increased use the incentive spirometer. Increase activity as tolerated. Remains on antibiotics in the form of Unasyn. Remains on Symbicort, DuoNeb inhalations, Solu-Medrol, Mucinex and Mucomyst. Heparin for DVT prophylaxis. Remains on IV diuretics. Sodium 135. Potassium 4.6. Bicarb 31. BUN 13. Creatinine 0.55. Glucose 154. ProBNP 2910. Progress note dated 04/05/2023. 57-year-old female with a previous recent history of left upper lobectomy for lung cancer. The patient has been in and out of the hospital multiple times, is required multiple bronchoscopies, for left lung collapse. Currently, the patient is seen today in room 364. She is on 4 L of oxygen. She's getting saline at 10 mL an hour. Her most recent chest x-ray shows partial left lung collapse. Current labs include a sodium 136, potassium 3.9, chlorides 96, CO2 31, BUN 15, creatinine 0.56. Glucose is 198. Calcium is 8.2. Chest x-ray shows postsurgical volume loss, left hemithorax, with slight improvement overall. Progress note dated 04/06/2023. 57-year-old female, who is seen today in room 263. The patient was previously room 364. She underwent bronchoscopy today, with Dr. June, and came back, to the intensive care unit, on the mechanical ventilator. She's getting saline at 125 mL an hour. She is on propofol at 45 mcg/kg/m. Her ventilator settings include the volume assist control, rate 20, tidal volume 350, FiO2 50%, and PEEP of 5. I've asked the nurse, to have respiratory bump up the PEEP from 5 to 8 cm water, and increase the FiO2 up to 60%. Blood gases, on the previous setting show pO2 of 58, pCO2 54, and a pH is 7.41. That was on 50% FiO2, and 5 of PEEP. Additional labs include a white count of 7.1, hemoglobin 10.7, hematocrit 32.3, and a normal platelet count. Sodium 135, potassium 3.8, chlorides 96, CO2 31, BUN 20, creatinine 0.59. Progress note dated 04/07/2023. 57 year old female seen today in room 263. The patient had bronchoscopy done yesterday, by Dr. June. She came back to the intensive care unit, on the mechanical ventilator. This morning, I do another bronchoscopy on the patient, and remove thick mucus and secretions from the left lung area. Currently, the patient remains on the volume assist control, rate 20, tidal volume 350, FiO2 60%, and PEEP of 8. Blood gases show pO2 73, pCO2 of 52, and a pH is 7.43. The patient is currently on saline at 75 mL an hour, and propofol at 35 mcg/kg/m. In addition, the patient is on insulin at 2.05 units an hour. Prior to the bronchoscopy, the patient did receive paralytic common form of Nimbex, 15 mg. The patient will stay on the ventilator overnight, and have another bronchoscopy tomorrow, and one again on Wednesday. Current labs included a white count 7.5, hemoglobin 12, hematocrit 36.7, platelet count 148,000. Sodium 138, potassium 3.9, chlorides 98, CO2 32, BUN 21, creatinine 0.58. Albumin is 2.7. Chest x-ray shows volume loss in the left lung, infiltrate in the right lung, and an effusion on the left side. Objective - Vital Signs Vital signs: Vital Signs Temp 97.5 F L 04/07/23 08:00 Pulse 52 L 04/07/23 11:00 Resp 25 H 04/07/23 11:00 BP 125/53 04/07/23 11:00 Pulse Ox 90 L 04/07/23 11:00 FiO2 60 04/07/23 09:39 Intake & Output 04/06/23 04/07/23 04/07/23 18:59 06:59 18:59 Intake Total 105.292 5500.704 523.391 Output Total 510 1265 570 Balance 437.104 76.704 -46.609 Weight 98.7 kg 98.7 kg Intake: IV 850 1050 300 Ampicillin-Sulbactam 1.5 150 50 gm In Sodium Chloride 0.9 % 50 ml @ 100 mls/hr IVPB Q8HR [facility] Rx#:[id number] Magnesium Sulfate-D5w Pmx 100 1 gm In Dextrose/Water 1 100ml.bag @ 100 mls/hr IVPB ONCE ONE Rx#: [id number] Sodium Chloride 0.9% 1, 150 000 ml @ 75 mls/hr IV . [id number] [facility] Rx#:[id number] Sodium Chloride 0.9% 1, 150 900 300 000 ml @ 75 mls/hr IV . [id number] [facility] Rx#:[id number] Intake, IV Titration 97.104 291.704 88.391 Amount Insulin Regular 100 unit 14.670 33.918 In Sodium Chloride 0.9% 100 ml @ Titrate IV .Q0M [facility] Rx#:[id number] propofoL 1,000 mg In 82.434 257.786 88.391 Empty Bag 1 bag @ 15 MCG/ KG/MIN 8.577 mls/hr IV . [id number] [facility] Rx#:[id number] Oral 135 Output: Urine 510 1265 570 Other: Voiding Method Indwelling Catheter Indwelling Catheter Indwelling Catheter - Exam No acute distress, sedated, with an orally placed endotracheal tube, and NG tube. HEENT examination is grossly unremarkable. Neck supple. Full range of motion. No adenopathy thyromegaly or neck vein distention. Cardiovascular examination reveals regular rhythm rate. S1-S2 normal. No S3 or S4. No discernible murmur noted. Heart rate is 52 bpm. Lungs reveal diminished breath sounds on the left. Mild scattered rhonchi are noted. No wheezes or crackles. Right lung is clear. Abdomen soft bowel sounds are heard. No masses or tenderness. Extremities are intact. No cyanosis clubbing or edema. Skin is without rash or lesion. Neurologic examination cannot be currently assessed. - Labs CBC & Chem 7: 04/07/23 04:44 04/07/23 04:44 Labs: Abnormal Lab Results - Last 24 Hours (Table) 04/06/23 04/06/23 04/06/23 Range/Units 12:04 14:30 15:09 RBC 3.39 L (3.80-5.40) m/uL Hgb 10.7 L (11.4-16.0) gm/dL Hct 32.3 L (34.0-46.0) % Plt Count (150-450) k/uL Lymphocytes # 0.5 L (1.0-4.8) k/uL Lymphocytes # (Manual) (1.0-4.8) k/uL ABG pCO2 (35-45) mmHg ABG pO2 (83-108) mmHg ABG HCO3 (21-25) mmol/L ABG Total CO2 (19-24) mmol/L ABG O2 Saturation (94-97) % Sodium (137-145) mmol/L Chloride (98-107) mmol/L Carbon Dioxide (22-30) mmol/L BUN (7-17) mg/dL Glucose (74-99) mg/dL POC Glucose (mg/dL) 207 H 271 H (70-110) mg/dL Calcium (8.4-10.2) mg/dL AST (14-36) U/L Total Protein (6.3-8.2) g/dL Albumin (3.5-5.0) g/dL 04/06/23 04/06/23 04/06/23 Range/Units 15:09 15:41 15:54 RBC (3.80-5.40) m/uL Hgb (11.4-16.0) gm/dL Hct (34.0-46.0) % Plt Count (150-450) k/uL Lymphocytes # (1.0-4.8) k/uL Lymphocytes # (Manual) (1.0-4.8) k/uL ABG pCO2 54 H (35-45) mmHg ABG pO2 58 L* (83-108) mmHg ABG HCO3 34 H (21-25) mmol/L ABG Total CO2 36 H (19-24) mmol/L ABG O2 Saturation 90.0 L (94-97) % Sodium 135 L (137-145) mmol/L Chloride 96 L (98-107) mmol/L Carbon Dioxide 31 H (22-30) mmol/L BUN 20 H (7-17) mg/dL Glucose 254 H (74-99) mg/dL POC Glucose (mg/dL) 293 H (70-110) mg/dL Calcium 7.6 L (8.4-10.2) mg/dL AST (14-36) U/L Total Protein (6.3-8.2) g/dL Albumin (3.5-5.0) g/dL 04/06/23 04/06/23 04/06/23 Range/Units 17:05 17:59 19:03 RBC (3.80-5.40) m/uL Hgb (11.4-16.0) gm/dL Hct (34.0-46.0) % Plt Count (150-450) k/uL Lymphocytes # (1.0-4.8) k/uL Lymphocytes # (Manual) (1.0-4.8) k/uL ABG pCO2 (35-45) mmHg ABG pO2 (83-108) mmHg ABG HCO3 (21-25) mmol/L ABG Total CO2 (19-24) mmol/L ABG O2 Saturation (94-97) % Sodium (137-145) mmol/L Chloride (98-107) mmol/L Carbon Dioxide (22-30) mmol/L BUN (7-17) mg/dL Glucose (74-99) mg/dL POC Glucose (mg/dL) 240 H 249 H 203 H (70-110) mg/dL Calcium (8.4-10.2) mg/dL AST (14-36) U/L Total Protein (6.3-8.2) g/dL Albumin (3.5-5.0) g/dL 04/06/23 04/06/23 04/06/23 Range/Units 20:03 21:10 22:01 RBC (3.80-5.40) m/uL Hgb (11.4-16.0) gm/dL Hct (34.0-46.0) % Plt Count (150-450) k/uL Lymphocytes # (1.0-4.8) k/uL Lymphocytes # (Manual) (1.0-4.8) k/uL ABG pCO2 (35-45) mmHg ABG pO2 (83-108) mmHg ABG HCO3 (21-25) mmol/L ABG Total CO2 (19-24) mmol/L ABG O2 Saturation (94-97) % Sodium (137-145) mmol/L Chloride (98-107) mmol/L Carbon Dioxide (22-30) mmol/L BUN (7-17) mg/dL Glucose (74-99) mg/dL POC Glucose (mg/dL) 238 H 180 H 150 H (70-110) mg/dL Calcium (8.4-10.2) mg/dL AST (14-36) U/L Total Protein (6.3-8.2) g/dL Albumin (3.5-5.0) g/dL 04/06/23 04/07/23 04/07/23 Range/Units 23:01 00:51 01:55 RBC (3.80-5.40) m/uL Hgb (11.4-16.0) gm/dL Hct (34.0-46.0) % Plt Count (150-450) k/uL Lymphocytes # (1.0-4.8) k/uL Lymphocytes # (Manual) (1.0-4.8) k/uL ABG pCO2 (35-45) mmHg ABG pO2 (83-108) mmHg ABG HCO3 (21-25) mmol/L ABG Total CO2 (19-24) mmol/L ABG O2 Saturation (94-97) % Sodium (137-145) mmol/L Chloride (98-107) mmol/L Carbon Dioxide (22-30) mmol/L BUN (7-17) mg/dL Glucose (74-99) mg/dL POC Glucose (mg/dL) 112 H 147 H 142 H (70-110) mg/dL Calcium (8.4-10.2) mg/dL AST (14-36) U/L Total Protein (6.3-8.2) g/dL Albumin (3.5-5.0) g/dL 04/07/23 04/07/23 04/07/23 Range/Units 02:59 04:00 04:44 RBC (3.80-5.40) m/uL Hgb (11.4-16.0) gm/dL Hct (34.0-46.0) % Plt Count (150-450) k/uL Lymphocytes # (1.0-4.8) k/uL Lymphocytes # (Manual) (1.0-4.8) k/uL ABG pCO2 (35-45) mmHg ABG pO2 (83-108) mmHg ABG HCO3 (21-25) mmol/L ABG Total CO2 (19-24) mmol/L ABG O2 Saturation (94-97) % Sodium (137-145) mmol/L Chloride (98-107) mmol/L Carbon Dioxide 32 H (22-30) mmol/L BUN 21 H (7-17) mg/dL Glucose 150 H (74-99) mg/dL POC Glucose (mg/dL) 121 H 156 H (70-110) mg/dL Calcium 8.1 L (8.4-10.2) mg/dL AST 39 H (14-36) U/L Total Protein 6.1 L (6.3-8.2) g/dL Albumin 2.7 L (3.5-5.0) g/dL 04/07/23 04/07/23 04/07/23 Range/Units 04:44 05:01 05:59 RBC (3.80-5.40) m/uL Hgb (11.4-16.0) gm/dL Hct (34.0-46.0) % Plt Count 148 L (150-450) k/uL Lymphocytes # (1.0-4.8) k/uL Lymphocytes # (Manual) 0.98 L (1.0-4.8) k/uL ABG pCO2 (35-45) mmHg ABG pO2 (83-108) mmHg ABG HCO3 (21-25) mmol/L ABG Total CO2 (19-24) mmol/L ABG O2 Saturation (94-97) % Sodium (137-145) mmol/L Chloride (98-107) mmol/L Carbon Dioxide (22-30) mmol/L BUN (7-17) mg/dL Glucose (74-99) mg/dL POC Glucose (mg/dL) 195 H 180 H (70-110) mg/dL Calcium (8.4-10.2) mg/dL AST (14-36) U/L Total Protein (6.3-8.2) g/dL Albumin (3.5-5.0) g/dL 04/07/23 04/07/23 04/07/23 Range/Units 06:05 06:46 08:11 RBC (3.80-5.40) m/uL Hgb (11.4-16.0) gm/dL Hct (34.0-46.0) % Plt Count (150-450) k/uL Lymphocytes # (1.0-4.8) k/uL Lymphocytes # (Manual) (1.0-4.8) k/uL ABG pCO2 52 H (35-45) mmHg ABG pO2 73 L (83-108) mmHg ABG HCO3 35 H (21-25) mmol/L ABG Total CO2 36 H (19-24) mmol/L ABG O2 Saturation (94-97) % Sodium (137-145) mmol/L Chloride (98-107) mmol/L Carbon Dioxide (22-30) mmol/L BUN (7-17) mg/dL Glucose (74-99) mg/dL POC Glucose (mg/dL) 179 H 144 H (70-110) mg/dL Calcium (8.4-10.2) mg/dL AST (14-36) U/L Total Protein (6.3-8.2) g/dL Albumin (3.5-5.0) g/dL 04/07/23 Range/Units 09:06 RBC (3.80-5.40) m/uL Hgb (11.4-16.0) gm/dL Hct (34.0-46.0) % Plt Count (150-450) k/uL Lymphocytes # (1.0-4.8) k/uL Lymphocytes # (Manual) (1.0-4.8) k/uL ABG pCO2 (35-45) mmHg ABG pO2 (83-108) mmHg ABG HCO3 (21-25) mmol/L ABG Total CO2 (19-24) mmol/L ABG O2 Saturation (94-97) % Sodium (137-145) mmol/L Chloride (98-107) mmol/L Carbon Dioxide (22-30) mmol/L BUN (7-17) mg/dL Glucose (74-99) mg/dL POC Glucose (mg/dL) 117 H (70-110) mg/dL Calcium (8.4-10.2) mg/dL AST (14-36) U/L Total Protein (6.3-8.2) g/dL Albumin (3.5-5.0) g/dL Assessment and Plan Assessment: Status post bronchoscopy, with suctioning of airway secretions, currently requiring intubation, and mechanical ventilation, 04/06/2023 and 04/07/2023. Left lung collapse, essentially the left lower lobe secondary to mucous plugs. Bronchoscopy was done during the earlier hospitalization the patient was found to have mucous plugs, significant tracheobronchomalacia, narrowing of the left lower lobe bronchial orifice. Currently on Unasyn. Plan is for daily bronchoscopy per CT services and placed on BiPAP 04/03/2023. Acute on chronic shortness of breath without any worsening in her hypoxemia. The patient's shortness of breath is multifactorial. Obviously she has undergone a left upper lobe resection. She has also complete atelectasis of left lower lobe and several attempts to reexpand the lung on the left has failed as the patient has significant tracheal bronchomalacia, mucus, Haemophilus influenza pneumonia and narrowing of the left lower lobe orifice as noted on several bronchoscopies. The left lung remains unchanged. The acute decompensation could be related to A. fib which is paroxysmal and the patient may have some interval worsening in her volume status. As such, the patient was hospitalized. ProBNP level is elevated. Remains on IV diuretics. Persistent left lower lobe atelectasis. Computed tomography scan of the chest 03/30/2023 revealed increased consolidation and collapse of the left lower lobe with essentially no residual aerated lung seen. Small to moderate size left pleural effusion however pneumothorax component of this has essentially resolved. Small mucous secretions along the tracheal wall and thoracic inlet. Right hilar adenopathy likely present on prior unenhanced study and suspected unchanged. Moderate right pleural effusions. Previous right upper lobe groundglass infiltrates have resolved. Pulmonary adenocarcinoma with a 1.5 cm mass in the left upper lobe. On 3 she had undergone a robotically assisted thoracoscopic left upper lobectomy with mediastinal lymph node dissection, for early stage NSCLC. The final pathologic staging is T1b N1 M0 disease. Acute hypoxic respiratory failure currently on 4 L of oxygen nasal cannula. Tracheobronchomalacia, severe. Paroxysmal atrial fibrillation. History of chronic obstructive pulmonary disease. Chronic tobacco dependence. History of CVA. History of diabetes mellitus. History of hypertension. History of hyperlipidemia. History of alcohol abuse and heroin abuse. History of hepatitis B and C. Plan: Plan dated 04/05/2023. The patient was seen and evaluated. The patient is currently on 4 L of oxygen. Saturations are 96%. The patient is receiving saline at 10 mL an hour. Labs, and x-rays are evaluated. Chest x-ray is about the same, or mildly improved. We will continue to follow make recommendations along the way. The patient will continue on bronchodilators, and BiPAP, as tolerated. The patient should also do incentive spirometer, every hour while awake, and be encouraged to deep breathe, cough, and clear secretions. We will continue to follow make recommendations where appropriate. Prognosis is guarded. Plan dated 04/06/2023. The patient returned back to the intensive care unit, on the mechanical ventilator. Ventilator changes have been made. Gases have been evaluated. The patient is currently on propofol for sedation, at 45 mcg/kg/m. The patient's on saline at 125 mL an hour. Morning labs, x-rays, and blood gases will be done. Cardiothoracic surgery may wish to do bronchoscopy on this patient again tomorrow, and it will be easily facilitated, while the patient is on chemical ventilation. Additional recommendations and suggestions are forthcoming. Labs, x-rays, and medications are reviewed. Plan dated 04/07/2023. The patient had bronchoscopy today, in the intensive care unit, room 263. She was placed on a 100% oxygen. She received some Nimbex before the procedure. I think secretions from the left mainstem bronchus, and the left lower lobe bronchi. The patient tolerated the procedure well. The plan is to keep her on the ventilator, and Vincent or tomorrow, i.e. , as well as Wednesday. In addition, I will check an ultrasound of the left chest, consider thoracentesis, depending on whether or not there is enough fluid, to do the procedure safely. Labs, x-rays, and medications are reviewed. The patient remains on the venti lator. He is on propofol at 35 mcg/kg/m, and insulin at 2.05 units an hour. She's getting saline at 75 mL an hour. We will start tube feedings today. Additional recommendations and suggestions are forthcoming. Prognosis is guarded. Time with Patient: Greater than 30
[2023-04-07 12:09] LABS: Glucose,Whole Blood 109 mg/dL (70-110)
--- NOTE | 2023-04-07 13:05 | US ---
EXAMINATION TYPE: US chest DATE OF EXAM: 04/07/2023 COMPARISON: Radiograph same day CLINICAL INDICATION: Female, 57 years old with history of Left pleural effusion.; TECHNIQUE: Targeted ultrasound of the posterior lower left hemithorax EXAM MEASUREMENTS: Left Pleural Effusion pocket size: 7.8 cm Left skin surface to fluid distance: 3.4 cm Left side marked for possible thoracentesis outside the dept. Pulmonologists are able to review the images in the patient?s EMR. IMPRESSIONS: At least a moderate left pleural effusion.
[2023-04-07] MEDS ORDERED: DEXTROSE 50% SYRINGE 50 ML IVP PRN ×2 (13:55)
[2023-04-07] MEDS ORDERED: POTASSIUM BICARBONATE/CIT AC 20 MEQ TABLET.EFF NG-TUBE SCH (14:00)
[2023-04-07] MEDS ORDERED: INSULIN ASPART (NovoLOG) 100 UNIT/ML VIAL SQ SCH (17:30)
[2023-04-07 18:03] LABS: Glucose,Whole Blood 279 mg/dL (70-110)
[2023-04-07] MEDS: INSULIN ASPART (NovoLOG) 100 UNIT/ML VIAL SQ SCH (18:07)
[2023-04-07 23:55] LABS: Glucose,Whole Blood 264 mg/dL (70-110)
[2023-04-08] MEDS: INSULIN ASPART (NovoLOG) 100 UNIT/ML VIAL SQ SCH ×4 (00:35→19:33)
[2023-04-08] MEDS: HEPARIN SODIUM,PORCINE 5,000 UNIT/ML 1 ML VIAL SQ SCH (00:35)
[2023-04-08] MEDS: IPRATROPIUM-ALBUTEROL 3 ML NEB INHALATION PRN ×2 (00:48→04:45)
[2023-04-08] MEDS: HYDROcodone/APAP 5-325MG 1 EACH TAB PO PRN ×3 (02:10→18:08)
[2023-04-08 04:18] LABS: Glucose,Whole Blood 196 mg/dL (70-110)
[2023-04-08] MEDS: FUROSEMIDE 10 MG/ML 2 ML VIAL IV SCH ×4 (05:14→22:28)
[2023-04-08 05:45] LABS: ABG Base Excess 9.2 mmol/L; ABG HCO3 35 mmol/L (21-25); ABG Oxygen Saturation 87.3 % (94-97); ABG PCO2 60 mmHg (35-45); ABG PH 7.37 (7.35-7.45); ABG TCO2 36 mmol/L (19-24); Allen Test Performed? Yes
[2023-04-08 05:47] LABS: ABG PO2 54 mmHg (83-108)
--- NOTE | 2023-04-08 06:11 | P.PN ---
Subjective Progress Note Date: 04/07/23 Patient is a 57-year-old female with a past medical history of hypertension, hyperlipidemia, diabetes type 2, history of CVA/TIA with right-sided weakness, recent history of lung cancer, left upper lobectomy in February 2023, bipolar/depression and currently everyday smoker presents to ER with complaints of difficulty in breathing and chest pain. Patient was recently discharged from the hospital on 03/27/2023. Does have a history of non-small cell lung cancer underwent left upper lobectomy complicated by persistent left lower lobe atelectasis requiring multiple bronchoscopies during recent hospitalization. Valve cultures from 07/22/2022 showed haemophilus influenza. Patient was discharged home on Augmentin. On admission chest x-ray showed similar opacification of the left lung likely secondary to atelectasis and large pleural effusion. No pneumothorax visualized. Small right effusion. EKG showed atrial fibrillation with rapid ventricular response with heart rate 117. Patient is currently not on any anticoagulation. Continued on amiodarone. Laboratory data showed WBC 7.7 hemoglobin 11.9 and platelets 186 ABG showed pH 7.41 pCO2 49 and pO2 105 Sodium 136 potassium 4.5 chloride 99 bicarb is 30 BUN 12 and creatinine 0.47 blood sugar 257 and lactic acid 1.7 and calcium 7.9 ESR not elevated. Troponin x 1 negative and proBNP 3090. Influenza A, B, RSV and COVID-19 PCR not detected. Lung resection on 03/15/2023 with final pathology showing moderate to poorly differentiated pulmonary adenocarcinoma. All margins negative for malignancy. 1 of 3 hilar lymph nodes positive for metastatic carcinoma. 03/30/2023 Patient is seen in follow up today with pulmonary following as well as cardiology and adjustments to medications being done. Home medications reviewed and resumed. CT surgery consulted and discussing with surgery about complete lobectomy of the left. Patient continues with pleural effusions noted and has been started on IV lasix 20mg bid and will continue. Labs reviewed and within normal limits. Will follow up on repeat labs and monitor electrolytes and kidney functions closely. Patient is currently afebrile and denies worsening shortness of breath. Patient is continued on 4L and was sent home on this previously last week. Blood sugars elevated and will continue accuchecks achs and adjust medications accordingly. 03/31/2023 Patient seen and evaluated in follow-up today with pulmonary along with cardiothoracic surgery following. Discussing further about possible complete lobectomy of the left with cardiothoracic. Patient per nursing staff is lethargic and has been receiving scheduled Xanax along with Neurontin and pain medications and will decrease the dose of Xanax admitted as needed as well as decreasing the dose of Neurontin. Patient encouraged to increase activity as tolerated and get up more frequently out of the bed and sit up in the chair and work with physical therapy daily. Blood sugars remained elevated and will adjust and make long acting twice daily and continue with sliding scale. Patient continues on 2-3 L via nasal cannula and weaning FiO2 as tolerated. Patient is currently afebrile denies chest pain or palpitations and denies worsening shortness of breath. Patient continues to use incentive spirometer and needs encouragement to do so. Patient is receiving breathing inhalational treatments as well. 04/01/2023 Patient is seen in follow-up today scheduled to undergo bronchoscopy with pulmonary and cardiothoracic surgery following closely. Chest x-ray ordered for post bronchoscopy which is pending. Patient's blood sugars slightly improved and have added long-acting twice daily along with sliding scale. Encouraged increase activity as tolerated. Patient to be evaluated by physical therapy and would recommend daily. Patient also with incentive spirometer at the bedside encouraged to use at least 10 times every hour while awake. Patient reports not feeling she is having worsening shortness of breath although continues to have shortness of breath. 04/02/2023 Patient seen in follow-up this morning currently nothing by mouth and scheduled to undergo repeat bronchoscopy as follow-up chest x-ray showed near complete opacification on the left as well status post bronchoscopy yesterday. Patient is lethargic but arousable and will adjust the medications again and will discontinue Xanax. Patient worked with physical therapy this patient is significantly weak and has had multiple prolonged hospitalizations would likely be going to [facility] on discharge. Will await clearance from CT surgery pulmonary to discuss discharge planning. Patient is afebrile with no reports of worsening shortness of breath. Patient tolerating diet although given patient's lethargy will recommend aspiration precautions. 04/03/2023 Patient is evaluated today sitting up in the chair, currently wearing BiPAP. Patient underwent bronchoscopy today with Dr. Oshea pending surgical report. Chest xray reveals extensive pleural parenchymal opacity left hemithorax some interval improvement of the aeration of the left lung. Worsening small - to moderate right pleural effusion with adjacent atelectasis and or consolidation. Patient continues on IV lasix 20 mg IV Q12h. Magnesium today 1.5. 04/04/2023 Patient evaluated today sitting up in the chair. Currently on nasal cannula wanting to try and eat breakfast. She is tachypneic using accessory muscles to take a deep breath. She has minimal aeration over the left lung with chest xray today showing near complete white out of the left hemithorax, aeration worsening from yesterday. A small portion of the left upper lung remains aerated now. Ongoing small to moderate left pleural effusion adjacent atelectasis and or consolidation. Patient underwent bronchoscopy again this morning due to the mucus plugging of the left mainstem bronchus. Patient had thick yellow sputum s uctioned from the left main bronchus. Continues on IV lasix 20 mg Q12h, and additionally, has been started on IV steroids toda by pulmonary team. proBNP 2910. Sodium 135, potassium 4.6, BUN 13, creatinine 0.55, magnesium 1.8, glucose 228. 04/05/2023 Patient is seen in follow-up today currently awaiting to undergo bronchoscopy again with cardiothoracic surgery on 04/06/2023. Chest x-ray continues to show near complete opacification on the left. Patient continues with ongoing bilateral pleural effusions and is maintained on IV Lasix. Patient started on IV steroids with pulmonary following closely and blood sugars are completely uncontrolled in the 500s. Will initiate insulin drip and continue with protocol and Accu-Cheks every hour and tighter glycemic control. Patient will be nothing by mouth at midnight again for bronchoscopy and will await report. Will discuss further with CT surgery regarding overall treatment plan. Patient with significant weakness recommend physical therapy daily. Patient needs Encouraged increased activity as tolerated as patient has been mostly sitting and sleeping throughout most of hospitalization. 04/06/2023 Patient is seen in follow-up today currently sitting up in the chair awaiting to undergo repeat bronchoscopy with CT surgery today. Patient continues on 4-5 L via nasal cannula reporting continued shortness of breath. Patient's blood sugars are more controlled and patient is maintained on insulin drip and was currently nothing by mouth for the procedure. Will await surgical report and continue insulin drip for now with close monitoring to monitor for any episodes of hypoglycemia. Patient is afebrile denies chest pain or palpitations. 04/07/2023 Patient is seen and evaluated in follow-up currently in the ICU as of yesterday post bronchoscopy this patient had some increased respiratory distress requiring mechanical ventilation and is currently maintained on FiO2 of 60% with a PEEP of 8. Plan is for repeat bronchoscopy today with pulmonary and tentatively scheduled for repeat bronchoscopies on and Wednesday. Patient remains on insulin drip and blood sugars are more controlled and patient is being started on tube feedings and will adjust the medications and continue sliding scale and add long-acting if needed. Patient is a poorly controlled diabetic with hyperglycemia. Patient is currently afebrile showing A. fib on the monitor. Patient does have history of atrial fibrillation and cardiology has been consulted. Prognosis remains extremely guarded at this time. Review of systems: Unable to assess as patient is on mechanical ventilation and sedated Active Medications Acetaminophen (Acetaminophen Tab 325 Mg Tab) 650 mg PO Q4HR PRN PRN Reason: Mild Pain or Fever > 100.5 Last Admin: 04/06/23 08:46 Dose: 650 mg Hydrocodone Bitart/Acetaminophen (Hydrocodone/Apap 5-325mg 1 Each Tab) 1 each PO Q6HR PRN PRN Reason: Pain Last Admin: 04/08/23 02:10 Dose: 1 each Acetylcysteine (Acetylcysteine 800 Mg/4 Ml Vial) 200 mg INHALATION RT-TID [facility] Last Admin: 04/07/23 20:01 Dose: 200 mg Albuterol/Ipratropium (Ipratropium-Albuterol 3 Ml Neb) 3 ml INHALATION RT-QID [facility] Last Admin: 04/07/23 20:01 Dose: 3 ml Albuterol/Ipratropium (Ipratropium-Albuterol 3 Ml Neb) 3 ml INHALATION RT-Q2H PRN PRN Reason: Shortness Of Breath Or Wheezing Last Admin: 04/08/23 04:45 Dose: 3 ml Amiodarone HCl (Amiodarone 200 Mg Tab) 200 mg PO BID [facility] Last Admin: 04/07/23 21:10 Dose: 200 mg Atorvastatin Calcium (Atorvastatin 10 Mg Tab) 10 mg PO DAILY [facility] Last Admin: 04/07/23 09:59 Dose: 10 mg Budesonide (Budesonide 1 Mg/2 Ml Nebu) 1 mg INHALATION RT-BID [facility] Last Admin: 04/07/23 20:01 Dose: 1 mg Chlorhexidine Gluconate (Chlorhexidine Gluconate 15 Ml Cup) 15 ml MUCOUS MEM BID [facility] Last Admin: 04/07/23 21:10 Dose: 15 ml Dextrose/Water (Dextrose 50% Syringe 50 Ml) 25 ml IVP PER PROTOCOL PRN; Protocol PRN Reason: Hypoglycemia Dextrose/Water (Dextrose 50% Syringe 50 Ml) 50 ml IVP PER PROTOCOL PRN; Protocol PRN Reason: Hypoglycemia Docusate Sodium (Docusate 100 Mg Cap) 100 mg PO DAILY PRN PRN Reason: Constipation Last Admin: 04/01/23 23:37 Dose: 100 mg Folic Acid (Folic Acid 1 Mg Tab) 1 mg PO DAILY [facility] Last Admin: 04/07/23 09:59 Dose: 1 mg Formoterol Fumarate (Formoterol Fumarate 20 Mcg/2 Ml Nebu) 20 mcg INHALATION RT-BID [facility] Last Admin: 04/07/23 20:01 Dose: 20 mcg Furosemide (Furosemide 10 Mg/Ml 2 Ml Vial) 20 mg IV Q12H [facility] Last Admin: 04/08/23 05:14 Dose: 20 mg Gabapentin (Gabapentin 400 Mg Cap) 400 mg PO TID [facility] Last Admin: 04/07/23 21:10 Dose: 400 mg Guaifenesin (Guaifenesin 600 Mg Tablet.Er) 1,200 mg PO Q12HR [facility] Last Admin: 04/07/23 21:11 Dose: 1,200 mg Heparin Sodium (Porcine) (Heparin Sodium,Porcine 5,000 Unit/Ml 1 Ml Vial) 5,000 unit SQ Q8HR [facility] Last Admin: 04/08/23 00:35 Dose: 5,000 unit Propofol 1,000 mg/ IV Solution 100 mls @ 8.577 mls/hr IV .[id number] [facility]; Protocol Last Admin: 04/08/23 03:08 Dose: 50 mcg/kg/min, 28.59 mls/hr Sodium Chloride (Saline 0.9%) 1,000 mls @ 75 mls/hr IV .[id number] [facility] Last Admin: 04/07/23 20:57 Dose: Not Given Insulin Aspart (Insulin Aspart (Novolog) 100 Unit/Ml Vial) 0 unit SQ Q6HR [facility]; Protocol Last Admin: 04/08/23 05:14 Dose: 2 unit Methylprednisolone Sodium Succinate (Methylprednisolone Sod Succi 125 Mg/2 Ml Vial) 60 mg IV DAILY [facility] Last Admin: 04/07/23 09:55 Dose: 60 mg Miscellaneous Information (Magnesium Replacement Protocol 1 Each Mis) 1 each MISCELLANE DAILY PRN; Protocol PRN Reason: Per Protocol Miscellaneous Information (Potassium Replacement Protocol 1 Each Misc) 1 each MISCELLANE DAILY PRN; Protocol PRN Reason: Per Protocol Naloxone HCl (Naloxone 0.4 Mg/Ml 1 Ml Vial) 0.2 mg IVP Q2M PRN PRN Reason: Opioid Reversal Pantoprazole Sodium (Pantoprazole 40 Mg Tablet) 40 mg PO DAILY [facility] Last Admin: 04/07/23 09:56 Dose: 40 mg Polyethylene Glycol (Polyethylene Glycol 3350 17 Gm Powd.Pack) 17 gm PO HS PRN PRN Reason: Constipation Senna (Sennosides 8.6 Mg Tab) 8.6 mg PO BID [facility] Last Admin: 04/07/23 21:11 Dose: 8.6 mg Thiamine HCl (Thiamine 100 Mg Tab) 100 mg PO DAILY [facility] Last Admin: 04/07/23 09:56 Dose: 100 mg PHYSICAL EXAMINATION: Patient is a 57-year-old female was currently on mechanical ventilation and intubated and sedated Well-developed, well-nourished. Elderly-appearing. obese HEENT: Normocephalic. Neck is supple. Pupils reactive. Nostrils clear. Oral cavity is moist. Neck reveals no JVD, carotid bruits, or thyromegaly. CHEST EXAMINATION: Trachea is central. Symmetrical expansion . Left basilar diminished sounds. No wheezing or rhonchi. CARDIAC: S1, S2 muffled, irregular ABDOMEN: Soft. Bowel sounds present. Nontender. No organomegaly. No abdominal bruits. Extremities: Lower extremity trace edema. No clubbing or cyanosis Neurologically sedated on mechanical ventilation at this time Skin: No rash or skin lesions. Musculoskeletal: No joint swelling or deformity. Assessment: Worsening shortness of breath secondary to persistent left lower lobe atelectasis/collapse despite multiple bronchoscopies during recent admission and Pleural effusion. Patient is status post 4 bronchoscopies this admission and underwent bronchoscopy repeat 04/04/23 with suctioning of thick yellow secretions. Patient underwent bronchoscopy yesterday with multiple mucous plugs and secretions removed and had some respiratory difficulty post bronchoscopy requiring mechanical ventilation. FiO2 is 60% with a PEEP of 8 and will remain on mechanical ventilation if there are plans for repeat bronchoscopies on and Wednesday. Pulmonary quantitative consultant and CT surgery following closely Haemophilus influenza pneumonia. Recent BAL culture showed haemophilus. Paroxysmal atrial fibrillation with rapid ventricular rate. Patient has new onset A-fib on 03/21/2023. Continued on amiodarone. Not on anticoagulation. Patient in uncontrolled rate and cardiology has been consulted and appreciate input recommendations Pulmonary adenocarcinoma with recent left upper lobe resection on 03/15/2023 Acute on chronic hypoxic respiratory failure requiring 3-4 L oxygen via nasal cannula on admission. Patient was at 2 L during recent discharge. Severe tracheal bronchomalacia COPD History of CVA with right-sided weakness Diabetes type 2, uncontrolled with hyperglycemia Hypertension Hyperlipidemia History of hepatitis B&C History of alcohol abuse and hides abuse Anxiety/depression and PTSD/bipolar. Currently everyday smoker, reports to quitting on last admission obesity with a bmi of 36.4 GI and DVT prophylaxis Full code Plan: Patient had repeat bronchoscopy yesterday experiencing some increased and respiratory demands and some respiratory distress requiring mechanical venti lation and is currently in the ICU with multiple medical consultations following. Patient will remain on mechanical ventilation for now as patient is scheduled to undergo repeat bronchoscopies on and Wednesday Blood sugars continue to be elevated and was maintained on insulin drip although being started on tube feedings and having nightly recurrences of nothing by mouth status for repeat bronchoscopy scheduled for the next few days and will adjust medications to sliding scale and long-acting if needed Patient currently on telemetry monitoring showing atrial fibrillation with RVR and cardiology has been re-consulted. Patient is not currently on any anticoagulation Follow-up on repeat labs and repeat chest x-ray in the a.m. Patient is continued on IV steroids as well and we'll continue to monitor Accu- Cheks before meals and at bedtime Due to multiple complex medical issues, overall prognosis is extremely guarded at this time The impression and plan of care has been dictated by Rahel Crabtree, Nurse Practitioner as directed. Dr. John MD I have performed a history and examination and MDM of this patient, discussed the same with the dictator, and agree with the dictator's assessment and plan as written ,documented as a scribe. Based on total visit time, I have performed more than 50% of the visit. Objective - Vital Signs Vital signs: Vital Signs Temp 97.7 F 04/08/23 04:00 Pulse 57 L 04/08/23 05:08 Resp 19 04/08/23 05:00 BP 133/64 04/08/23 05:00 Pulse Ox 96 04/08/23 05:00 FiO2 60 04/08/23 04:45 Intake & Output 04/07/23 04/07/23 04/08/23 06:59 18:59 06:59 Intake Total 9637.996 0769.240 1224.952 Output Total 1265 1275 1000 Balance 76.704 404.240 224.952 Weight 98.7 kg 98.7 kg 99.3 kg Intake: IV 1050 900 750 Ampicillin-Sulbactam 1.5 50 gm In Sodium Chloride 0.9 % 50 ml @ 100 mls/hr IVPB Q8HR [facility] Rx#:[id number] Magnesium Sulfate-D5w Pmx 100 1 gm In Dextrose/Water 1 100ml.bag @ 100 mls/hr IVPB ONCE ONE Rx#: [id number] Sodium Chloride 0.9% 1, 900 900 750 000 ml @ 75 mls/hr IV . [id number] [facility] Rx#:[id number] Intake, IV Titration 291.704 222.240 271.952 Amount Insulin Regular 100 unit 33.918 In Sodium Chloride 0.9% 100 ml @ Titrate IV .Q0M [facility] Rx#:[id number] propofoL 1,000 mg In 257.786 222.240 271.952 Empty Bag 1 bag @ 15 MCG/ KG/MIN 8.577 mls/hr IV . [id number] [facility] Rx#:[id number] Oral 265 Tube Feeding 232 203 Other 60 Output: Urine 1265 1275 1000 Other: Voiding Method Indwelling Catheter Indwelling Catheter Indwelling Catheter # Bowel Movements 1 - Labs CBC & Chem 7: 04/07/23 04:44 04/07/23 04:44 Labs: Abnormal Lab Results - Last 24 Hours (Table) 04/07/23 04/07/23 04/07/23 Range/Units 04:44 04:44 06:05 Plt Count 148 L (150-450) k/uL Lymphocytes # (Manual) 0.98 L (1.0-4.8) k/uL ABG pCO2 52 H (35-45) mmHg ABG pO2 73 L (83-108) mmHg ABG HCO3 35 H (21-25) mmol/L ABG Total CO2 36 H (19-24) mmol/L ABG O2 Saturation (94-97) % Carbon Dioxide 32 H (22-30) mmol/L BUN 21 H (7-17) mg/dL Glucose 150 H (74-99) mg/dL POC Glucose (mg/dL) (70-110) mg/dL Calcium 8.1 L (8.4-10.2) mg/dL AST 39 H (14-36) U/L Total Protein 6.1 L (6.3-8.2) g/dL Albumin 2.7 L (3.5-5.0) g/dL 04/07/23 04/07/23 04/07/23 Range/Units 06:46 08:11 09:06 Plt Count (150-450) k/uL Lymphocytes # (Manual) (1.0-4.8) k/uL ABG pCO2 (35-45) mmHg ABG pO2 (83-108) mmHg ABG HCO3 (21-25) mmol/L ABG Total CO2 (19-24) mmol/L ABG O2 Saturation (94-97) % Carbon Dioxide (22-30) mmol/L BUN (7-17) mg/dL Glucose (74-99) mg/dL POC Glucose (mg/dL) 179 H 144 H 117 H (70-110) mg/dL Calcium (8.4-10.2) mg/dL AST (14-36) U/L Total Protein (6.3-8.2) g/dL Albumin (3.5-5.0) g/dL 04/07/23 04/07/23 04/08/23 Range/Units 18:02 23:54 04:16 Plt Count (150-450) k/uL Lymphocytes # (Manual) (1.0-4.8) k/uL ABG pCO2 (35-45) mmHg ABG pO2 (83-108) mmHg ABG HCO3 (21-25) mmol/L ABG Total CO2 (19-24) mmol/L ABG O2 Saturation (94-97) % Carbon Dioxide (22-30) mmol/L BUN (7-17) mg/dL Glucose (74-99) mg/dL POC Glucose (mg/dL) 279 H 264 H 196 H (70-110) mg/dL Calcium (8.4-10.2) mg/dL AST (14-36) U/L Total Protein (6.3-8.2) g/dL Albumin (3.5-5.0) g/dL 04/08/23 Range/Units 05:39 Plt Count (150-450) k/uL Lymphocytes # (Manual) (1.0-4.8) k/uL ABG pCO2 60 H (35-45) mmHg ABG pO2 54 L* (83-108) mmHg ABG HCO3 35 H (21-25) mmol/L ABG Total CO2 36 H (19-24) mmol/L ABG O2 Saturation 87.3 L (94-97) % Carbon Dioxide (22-30) mmol/L BUN (7-17) mg/dL Glucose (74-99) mg/dL POC Glucose (mg/dL) (70-110) mg/dL Calcium (8.4-10.2) mg/dL AST (14-36) U/L Total Protein (6.3-8.2) g/dL Albumin (3.5-5.0) g/dL
[2023-04-08 06:51] LABS: African American GFR (CKD) >90 (>60 ml/min/1.73 sqM); Anion Gap 11 mmol/L; Blood Urea Nitrogen 25 mg/dL (7-17); Calcium 7.9 mg/dL (8.4-10.2); Carbon Dioxide 31 mmol/L (22-30); Chloride 99 mmol/L (98-107); Glucose 216 mg/dL (74-99); Non-African American GFR(CKD) >90 (>60 ml/min/1.73 sqM); Potassium 3.9 mmol/L (3.5-5.1); Sodium 141 mmol/L (137-145)
[2023-04-08 06:58] LABS: HGB 11.1 gm/dL (11.4-16.0); Hypochromasia Marked; MCH 30.9 pg (25.0-35.0); MCHC 31.9 g/dL (31.0-37.0); MCV 96.9 fL (80.0-100.0); Mean Platelet Volume 8.5; Platelet Count 166 k/uL (150-450); Poikilocytosis Slight; RBC 3.61 m/uL (3.80-5.40); WBC 8.5 k/uL (3.8-10.6)
--- NOTE | 2023-04-08 07:46 | P.CRDCN ---
History of Present Illness Consult date: 04/08/23 History of present illness: The patient is a 57-year-old female patient who is currently intubated and she is on mechanical ventilation and we requested to see the patient for paroxysmal atrial fibrillation. The history was taken from the chart. Apparently the patient does have history of paroxysmal atrial fibrillation and she was receiving amiodarone orally and also she does have history of stroke and diabetes and hypertension and dyslipidemia and chronic obstructive pulmonary disease and drug abuse. The patient has been in the hospital for few days. 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 She was admitted to the hospital this time with what it seems to be related to pneumonia. Also she underwent bronchoscopy multiple times because of the collapse of the left lung. Currently she is intubated and she is on mechanical ventilation. We consulted to see the patient because she did have an episode of tachycardia yesterday. I did get the EKG which seems to be somewhat concerning for atrial fibrillation which is known to the patient from before. Currently she is back in normal sinus mechanism. For some reason the patient is not on any anticoagulation. Her hemoglobin is stable. I am going to consider starting the patient on heparin IV at this point and consider switching her to oral anticoagulation unless there is any contraindication from another aspects. Beside that continue the current medical regimen including the current dose of amiodarone. The examination is remarkable for stable vital signs with regular rhythm and distant heart sounds and imaged breathing sounds and mild bilateral lower extremity edema noted. Assessment Acute respiratory failure Paroxysmal atrial fibrillation Hypertension/dyslipidemia/diabetes History of drug abuse Chronic obstructive pulmonary disease Plan Continue the current medical regimen Consider adding heparin to the current medical regimen Follow-up with the patient Past Medical History Past Medical History: Atrial Fibrillation, Cancer, COPD, CVA/TIA, Diabetes Mellitus, Hyperlipidemia, Hypertension, Liver Disease, Skin Disorder, Vascular Disorder Additional Past Medical History / Comment(s): HX past alcoholism and heroin abuse, "DX hepatitis b and c", stroke in 04/2015 with right sided weakness, recent dx. lung cancer, rash lower legs, circulation issues lower legs-causes leg pain History of Any Multi-Drug Resistant Organisms: None Reported Past Surgical History: Cholecystectomy, Orthopedic Surgery, Tonsillectomy, Tubal Ligation Additional Past Surgical History / Comment(s): esophageal surgery as a baby, cervix biopsy. Left ankle fusion, right ankle, recent bronchoscopy, left upper lobectomy (feb 2023) Past Anesthesia/Blood Transfusion Reactions: Motion Sickness, Postoperative Nausea & Vomiting (PONV) Additional Past Anesthesia/Blood Transfusion Reaction / Comment(s): no reaction to blood Past Psychological History: Bipolar, Depression, PTSD Smoking Status: Current every day smoker Past Alcohol Use History: None Reported Past Drug Use History: Heroin Additional Drug Use History / Comment(s): Last heroin injection 2018 - Past Family History Mother Additional Family Medical History / Comment(s): "chorea bill disease" Father Family Medical History: Liver Disease Additional Family Medical History / Comment(s): alcoholic Medications and Allergies Home Medications Medication Instructions Recorded Confirmed Type Atorvastatin [Lipitor] 10 mg PO DAILY 02/12/22 03/29/23 History Furosemide [Lasix] 20 mg PO DAILY 02/12/22 03/29/23 History Fluticasone/Umeclidin/Vilanter 1 puff INHALATION RT-DAILY 03/09/23 03/29/23 History [Trelegy Ellipta 100-62.5-25] LORazepam [Ativan] 0.5 mg PO BID PRN 03/09/23 03/29/23 History Amiodarone [Cordarone] 400 mg PO BID #120 tab 03/27/23 03/29/23 Rx Amoxic-Pot Clav 875-125Mg 1 tab PO BID 30 Days #60 tab 03/27/23 03/29/23 Rx [Augmentin 875-125] Docusate [Colace] 100 mg PO DAILY PRN 7 Days #20 cap 03/27/23 03/29/23 Rx Folic Acid 1 mg PO DAILY #30 tab 03/27/23 03/29/23 Rx Magnesium Oxide [Mag-Ox] 400 mg PO BID 5 Days #10 tab 03/27/23 03/29/23 Rx Nicotine 7Mg/24Hr Patch [Habitrol] 1 patch TRANSDERM DAILY #7 patch 03/27/23 03/29/23 Rx Pantoprazole [Protonix] 40 mg PO DAILY #30 tab 03/27/23 03/29/23 Rx Thiamine [Vitamin B-1] 100 mg PO DAILY #30 tab 03/27/23 03/29/23 Rx Dulaglutide [Trulicity] 1.5 mg SQ MO 03/29/23 03/29/23 History Gabapentin 800 mg PO TID 03/29/23 03/29/23 History HYDROcodone/APAP 5-325MG [S [place] 1 tab PO Q6HR PRN 03/29/23 03/29/23 History 5-325] INSULIN ASPART (NovoLOG) [NovoLOG 12 unit SQ DIRECTED 03/29/23 03/29/23 History (formulary)] INSULIN ASPART (NovoLOG) [NovoLOG See Protocol SQ DIRECTED 03/29/23 03/29/23 History (formulary)] Insulin Glargine,Hum.rec.anlog 15 units SQ DAILY 03/29/23 03/29/23 History [Lantus Solostar Pen] Pioglitazone [Actos] 15 mg PO DAILY 03/29/23 03/29/23 History Allergies Allergy/AdvReac Type Severity Reaction Status Date / Time hydromorphone HCl Allergy Unknown Rash/Hives/ Verified 03/29/23 12:18 [From Dilaudid] Itchy Physical Exam Vitals: Vital Signs Temp Pulse Resp BP Pulse Ox FiO2 04/08/23 07:00 60 15 138/62 94 L 04/08/23 06:00 60 28 H 135/101 93 L 04/08/23 05:08 57 L 04/08/23 05:00 59 L 19 133/64 96 04/08/23 04:45 57 L 60 04/08/23 04:00 97.7 F 58 L 23 123/57 95 60 04/08/23 03:00 58 L 26 H 122/59 95 04/08/23 02:00 109 H 21 125/66 95 04/08/23 01:02 104 H 04/08/23 01:00 107 H 19 142/74 96 04/08/23 00:48 104 H 04/08/23 00:47 60 04/08/23 00:00 97.8 F 98 21 136/63 97 60 04/07/23 23:00 104 H 23 132/66 96 04/07/23 22:00 63 24 135/66 95 04/07/23 21:00 64 30 H 119/57 91 L 04/07/23 20:25 95 04/07/23 20:12 57 L 04/07/23 20:04 60 04/07/23 20:01 95 04/07/23 20:00 97.9 F 98 23 127/60 97 60 04/07/23 19:00 112 H 24 136/73 94 L 04/07/23 18:00 58 L 25 H 125/62 94 L 04/07/23 17:01 102 H 04/07/23 17:00 107 H 22 123/60 93 L 04/07/23 16:56 60 04/07/23 16:00 97.6 F 92 29 H 123/64 93 L 60 04/07/23 15:32 60 04/07/23 15:00 53 L 25 H 125/57 95 04/07/23 14:00 53 L 25 H 137/65 93 L 04/07/23 13:00 53 L 24 135/63 91 L 04/07/23 12:29 52 L 04/07/23 12:25 60 04/07/23 12:14 49 L 04/07/23 12:00 97.5 F L 50 L 23 145/64 96 60 04/07/23 11:53 60 04/07/23 11:00 52 L 25 H 125/53 90 L 04/07/23 10:00 56 L 20 124/53 93 L 04/07/23 09:39 60 04/07/23 09:22 100 04/07/23 09:20 49 L 04/07/23 09:08 60 04/07/23 09:06 47 L 14 04/07/23 09:00 49 L 20 121/59 98 04/07/23 08:00 97.5 F L 49 L 23 114/51 97 60 Intake and Output 04/07/23 04/08/23 04/08/23 22:59 06:59 14:59 Intake Total 1147.655 887.952 75 Output Total 1225 495 125 Balance -77.345 392.952 -50 Intake: IV 600 600 75 Sodium Chloride 0.9% 1, 600 600 75 000 ml @ 75 mls/hr IV . [id number] [facility] Rx#:[id number] Intake, IV Titration 155.655 171.952 Amount propofoL 1,000 mg In 155.655 171.952 Empty Bag 1 bag @ 15 MCG/ KG/MIN 8.577 mls/hr IV . [id number] [facility] Rx#:[id number] Oral 130 Tube Feeding 232 116 Other 30 Output: Urine 1225 495 125 Other: Voiding Method Indwelling Catheter Indwelling Catheter # Bowel Movements 1 Weight 99.3 kg Results 04/08/23 05:58 04/08/23 05:58 CBC 04/08/23 Range/Units 05:58 WBC 8.5 (3.8-10.6) k/uL RBC 3.61 L (3.80-5.40) m/uL Hgb 11.1 L (11.4-16.0) gm/dL Hct 35.0 (34.0-46.0) % Plt Count 166 (150-450) k/uL Comprehensive Metabolic Panel 04/08/23 Range/Units 05:58 Sodium 141 (137-145) mmol/L Potassium 3.9 (3.5-5.1) mmol/L Chloride 99 (98-107) mmol/L Carbon Dioxide 31 H (22-30) mmol/L BUN 25 H (7-17) mg/dL Creatinine 0.69 (0.52-1.04) mg/dL Glucose 216 H (74-99) mg/dL Calcium 7.9 L (8.4-10.2) mg/dL Current Medications Generic Name Dose Route Start Last Admin Trade Name Freq PRN Reason Stop Dose Admin Acetaminophen 650 mg 03/29/23 13:34 04/06/23 08:46 Acetaminophen Tab 325 Mg Tab PO 650 mg Q4HR PRN Administration Mild Pain or Fever > 100.5 Hydrocodone Bitart/Acetaminophen 1 each 03/29/23 14:49 04/08/23 02:10 Hydrocodone/Apap 5-325mg 1 Each Tab PO 1 each Q6HR PRN Administration Pain Acetylcysteine 200 mg 04/01/23 13:00 04/07/23 20:01 Acetylcysteine 800 Mg/4 Ml Vial INHALATION 200 mg RT-TID [facility] Administration Albuterol/Ipratropium 3 ml 03/29/23 16:00 04/07/23 20:01 Ipratropium-Albuterol 3 Ml Neb INHALATION 3 ml RT-QID [facility] Administration Albuterol/Ipratropium 3 ml 03/29/23 13:34 04/08/23 04:45 Ipratropium-Albuterol 3 Ml Neb INHALATION 3 ml RT-Q2H PRN Administration Shortness Of Breath Or Wheezing Amiodarone HCl 200 mg 04/07/23 09:00 04/07/23 21:10 Amiodarone 200 Mg Tab PO 200 mg BID [facility] Administration Atorvastatin Calcium 10 mg 03/30/23 09:00 04/07/23 09:59 Atorvastatin 10 Mg Tab PO 10 mg DAILY [facility] Administration Budesonide 1 mg 04/05/23 13:15 04/07/23 20:01 Budesonide 1 Mg/2 Ml Nebu INHALATION 1 mg RT-BID [facility] Administration Chlorhexidine Gluconate 15 ml 04/06/23 21:00 04/07/23 21:10 Chlorhexidine Gluconate 15 Ml Cup MUCOUS MEM 15 ml BID [facility] Administration Dextrose/Water 25 ml 04/07/23 13:55 Dextrose 50% Syringe 50 Ml IVP PER PROTOCOL PRN Hypoglycemia Protocol Dextrose/Water 50 ml 04/07/23 13:55 Dextrose 50% Syringe 50 Ml IVP PER PROTOCOL PRN Hypoglycemia Protocol Docusate Sodium 100 mg 03/29/23 14:49 04/01/23 23:37 Docusate 100 Mg Cap PO 100 mg DAILY PRN Administration Constipation Folic Acid 1 mg 03/30/23 09:00 04/07/23 09:59 Folic Acid 1 Mg Tab PO 1 mg DAILY [facility] Administration Formoterol Fumarate 20 mcg 04/05/23 13:15 04/07/23 20:01 Formoterol Fumarate 20 Mcg/2 Ml Nebu INHALATION 20 mcg RT-BID [facility] Administration Furosemide 20 mg 04/08/23 07:30 Furosemide 10 Mg/Ml 2 Ml Vial IV Q8H [facility] Gabapentin 400 mg 03/31/23 16:00 04/07/23 21:10 Gabapentin 400 Mg Cap PO 400 mg TID [facility] Administration Guaifenesin 1,200 mg 04/01/23 21:00 04/07/23 21:11 Guaifenesin 600 Mg Tablet.Er PO 1,200 mg Q12HR [facility] Administration Heparin Sodium (Porcine) 5,000 unit 03/30/23 00:00 04/08/23 00:35 Heparin Sodium,Porcine 5,000 Unit/Ml 1 Ml Vial SQ 5,000 unit Q8HR [facility] Administration Propofol 1,000 mg/ IV Solution 100 mls @ 8.577 mls/hr 04/06/23 13:45 04/08/23 03:08 IV 50 mcg/kg/min .[id number] [facility] 28.59 mls/hr Administration Protocol 15 MCG/KG/MIN Sodium Chloride 1,000 mls @ 75 mls/hr 04/06/23 15:45 04/07/23 20:57 Saline 0.9% IV Not Given .[id number] [facility] Insulin Aspart 0 unit 04/07/23 18:00 04/08/23 05:14 Insulin Aspart (Novolog) 100 Unit/Ml Vial SQ 2 unit Q6HR [facility] Administration Protocol Methylprednisolone Sodium Succinate 60 mg 04/07/23 09:00 04/07/23 09:55 Methylprednisolone Sod Succi 125 Mg/2 Ml Vial IV 60 mg DAILY [facility] Administration Miscellaneous Information 1 each 04/03/23 17:01 Magnesium Replacement Protocol 1 Each Misc MISCELLANE DAILY PRN Per Protocol Protocol Miscellaneous Information 1 each 04/06/23 16:24 Magnesium Replacement Protocol 1 Each Misc MISCELLANE DAILY PRN Per Protocol Protocol Miscellaneous Information 1 each 04/06/23 16:24 Magnesium Replacement Protocol 1 Each Mis MISCELLANE DAILY PRN Per Protocol Protocol Miscellaneous Information 1 each 04/06/23 16:25 Potassium Replacement Protocol 1 Each Misc MISCELLANE DAILY PRN Per Protocol Protocol Naloxone HCl 0.2 mg 03/29/23 13:34 Naloxone 0.4 Mg/Ml 1 Ml Vial IVP Q2M PRN Opioid Reversal Pantoprazole Sodium 40 mg 03/30/23 09:00 04/07/23 09:56 Pantoprazole 40 Mg Tablet PO 40 mg DAILY [facility] Administration Polyethylene Glycol 17 gm 04/01/23 11:39 Polyethylene Glycol 3350 17 Gm Powd.Pack PO HS PRN Constipation Senna 8.6 mg 04/01/23 21:00 04/07/23 21:11 Sennosides 8.6 Mg Tab PO 8.6 mg BID [facility] Administration Thiamine HCl 100 mg 03/30/23 09:00 04/07/23 09:56 Thiamine 100 Mg Tab PO 100 mg DAILY [facility] Administration Intake and Output 04/07/23 04/08/23 04/08/23 22:59 06:59 14:59 Intake Total 1147.655 887.952 75 Output Total 1225 495 125 Balance -77.345 392.952 -50 Intake: IV 600 600 75 Sodium Chloride 0.9% 1, 600 600 75 000 ml @ 75 mls/hr IV . [id number] [facility] Rx#:[id number] Intake, IV Titration 155.655 171.952 Amount propofoL 1,000 mg In 155.655 171.952 Empty Bag 1 bag @ 15 MCG/ KG/MIN 8.577 mls/hr IV . [id number] [facility] Rx#:[id number] Oral 130 Tube Feeding 232 116 Other 30 Output: Urine 1225 495 125 Other: Voiding Method Indwelling Catheter Indwelling Catheter # Bowel Movements 1 Weight 99.3 kg 04/08/23 05:58 04/08/23 05:58
[2023-04-08] MEDS ORDERED: HEPARIN SODIUM 1,000 UN/ML (10ML VL) IV PRN (07:47)
[2023-04-08] MEDS: CHLORHEXIDINE GLUCONATE 15 ML CUP MUCOUS MEM SCH ×2 (08:04→20:07)
[2023-04-08] MEDS: THIAMINE 100 MG TAB PO SCH (08:04)
[2023-04-08] MEDS: methylPREDNISolone SOD SUCCI 125 MG/2 ML VIAL IV SCH (08:04)
[2023-04-08] MEDS: SENNOSIDES 8.6 MG TAB PO SCH ×2 (08:04→20:07)
[2023-04-08] MEDS: PANTOPRAZOLE 40 MG TABLET PO SCH (08:04)
[2023-04-08] MEDS: GABAPENTIN 400 MG CAP PO SCH ×3 (08:05→20:07)
[2023-04-08] MEDS: AMIODARONE 200 MG TAB PO SCH ×2 (08:10→20:07)
[2023-04-08] MEDS: guaiFENesin 600 MG TABLET.ER PO SCH ×2 (08:10→20:07)
[2023-04-08] MEDS: ATORVASTATIN 10 MG TAB PO SCH (08:10)
[2023-04-08] MEDS: FOLIC ACID 1 MG TAB PO SCH (08:11)
[2023-04-08] MEDS: HEPARIN SOD,PORK IN 0.45% NACL 25,000 UNIT in 0.45% NACL 1 250ML.BAG IV SCH (08:23)
[2023-04-08] MEDS: BUDESONIDE 1 MG/2 ML NEBU INHALATION SCH ×2 (08:32→19:44)
[2023-04-08] MEDS: ACETYLCYSTEINE 800 MG/4 ML VIAL INHALATION SCH ×3 (08:32→19:43)
[2023-04-08] MEDS: IPRATROPIUM-ALBUTEROL 3 ML NEB INHALATION SCH ×4 (08:32→19:44)
[2023-04-08] MEDS: FORMOTEROL FUMARATE 20 MCG/2 ML NEBU INHALATION SCH ×2 (08:32→19:44)
[2023-04-08] MEDS: SODIUM CHLORIDE 0.9% 1,000 ML IV SCH (09:19)
[2023-04-08] MEDS ORDERED: CISATRACURIUM 2 MG/ML 5 ML VIAL IV ONE (09:34)
--- NOTE | 2023-04-08 09:43 | OP ---
OPERATIVE REPORT DATE OF SERVICE : PROCEDURE: Left-sided thoracentesis. PREOPERATIVE DIAGNOSIS: Left pleural effusion. POSTOPERATIVE DIAGNOSIS: Left pleural effusion. The left posterior chest was marked by ultrasound. The palletiser operator was Dr. Reynolds, the first surgical sales representative was Dr. Nataly Barba. The patient's procedure took place in the ICU, room 263. INDICATION: Pleural effusion. DESCRIPTION OF PROCEDURE: A time-out was completed verifying correct patient, procedure, site, positioning, and implant (s) or special equipment if applicable. Ultrasound guidance was used and appropriate fluid pocket was identified and marked. Patient was positioned, prepped and draped in usual sterile fashion. Lidocaine was used to anesthetize the area. A Thoracentesis catheter was introduced into the pleural space and fluid was removed. Blood loss was none. A chest x-ray was ordered to evaluate for pneumothorax. Total Fluid Removed: Roughly 750 mL of brown bloody fluid was removed from the left pleural space. The patient tolerated procedure well. A chest x-ray will be ordered. There was no immediate complication. The fluid will be sent to the laboratory for analysis. This will include both cytology, and microbiology. MMODL / IJN: [id number] /
--- NOTE | 2023-04-08 10:16 | P.PN ---
Subjective Progress Note Date: 04/08/23 Principal diagnosis: Shortness of breath, rapid atrial fibrillation present on admission. History of moderate to poorly differentiated pulmonary adenocarcinoma with 13 hilar lymph nodes positive for metastatic carcinoma status post robotic-assisted thoracoscopic left upper lobectomy with mediastinal lymph node dissection, postoperative paroxysmal atrial fibrillation, left lower lobe atelectasis and mucous plugging with tracheobronchial malacia status post bronchoscopy 3, ins ulin dependent diabetes with poor glycemic control, hypomagnesemia, current tobacco dependence with cessation prior to previous admission, moderate COPD, current daily EtOH use, hypertension, hyperlipidemia, stroke in 2016 with right- sided weakness, hepatitis B and C, bipolar depression, IV heroin use 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 Remains intubated and sedated. Currently sinus bradycardia with heart rate in the 50s, hemodynamically stable. Patient has undergone bronchoscopy daily, extensive thick mucus has been removed each time. Decision was made yesterday to leave the patient intubated on the ventilator to continue to allow daily bronchoscopy. Patient appears to have gone into ARDS, CXR looks worse today, ventilator adjustments made by prospect manager. Objective - Vital Signs Vital signs: Vital Signs Temp 97.7 F 04/08/23 04:00 Pulse 60 04/08/23 07:00 Resp 15 04/08/23 07:00 BP 138/62 04/08/23 07:00 Pulse Ox 94 L 04/08/23 07:00 FiO2 60 04/08/23 04:45 Intake & Output 04/07/23 04/08/23 04/08/23 18:59 06:59 18:59 Intake Total 2383.154 2434.952 75 Output Total 1275 1150 125 Balance 404.240 249.952 -50 Weight 98.7 kg 99.3 kg Intake: IV 900 825 75 Sodium Chloride 0.9% 1, 900 825 75 000 ml @ 75 mls/hr IV . [id number] [facility] Rx#:[id number] Intake, IV Titration 222.240 371.952 Amount propofoL 1,000 mg In 222.240 371.952 Empty Bag 1 bag @ 15 MCG/ KG/MIN 8.577 mls/hr IV . [id number] [facility] Rx#:[id number] Oral 265 Tube Feeding 232 203 Other 60 Output: Urine 1275 1150 125 Other: Voiding Method Indwelling Catheter Indwelling Catheter # Bowel Movements 1 - Exam CONSTITUTIONAL: Remains sedated and intubated, no acute distress RESPIRATORY: Lungs sounds diminished on the left, expiratory wheezes present on the left. Respirations even, nonlabored on mechanical ventilation. Current ventilator settings FiO2 60%, PEEP 10, tidal volume 350, respiratory rate 20. 8.0 ET tube present, 23 at the lip CARDIOVASCULAR: S1, S2 present. Slow but regular rate and rhythm, sinus bradycardia on telemetry. Doppler lower extremity pulses bilaterally. Bilateral lower extremity pitting edema present. GASTROINTESTINAL: Abdomen soft, nontender, nondistended. Active bowel sounds present 4 quadrants. OG tube present, TF infusing at 29 mL/hr GENITOURINARY: Cameron catheter present draining clear yellow urine, output 2275 mL in the last 24 hours INTEGUMENTARY: Skin is warm and dry NEUROLOGIC: Currently sedated with propofol - Allied health notes Allied health notes reviewed: nursing - Labs CBC & Chem 7: 04/08/23 05:58 04/08/23 05:58 Labs: Abnormal Lab Results - Last 24 Hours (Table) 04/07/23 04/07/23 04/07/23 Range/Units 08:11 09:06 18:02 RBC (3.80-5.40) m/uL Hgb (11.4-16.0) gm/dL ABG pCO2 (35-45) mmHg ABG pO2 (83-108) mmHg ABG HCO3 (21-25) mmol/L ABG Total CO2 (19-24) mmol/L ABG O2 Saturation (94-97) % Carbon Dioxide (22-30) mmol/L BUN (7-17) mg/dL Glucose (74-99) mg/dL POC Glucose (mg/dL) 144 H 117 H 279 H (70-110) mg/dL Calcium (8.4-10.2) mg/dL 04/07/23 04/08/23 04/08/23 Range/Units 23:54 04:16 05:39 RBC (3.80-5.40) m/uL Hgb (11.4-16.0) gm/dL ABG pCO2 60 H (35-45) mmHg ABG pO2 54 L* (83-108) mmHg ABG HCO3 35 H (21-25) mmol/L ABG Total CO2 36 H (19-24) mmol/L ABG O2 Saturation 87.3 L (94-97) % Carbon Dioxide (22-30) mmol/L BUN (7-17) mg/dL Glucose (74-99) mg/dL POC Glucose (mg/dL) 264 H 196 H (70-110) mg/dL Calcium (8.4-10.2) mg/dL 04/08/23 04/08/23 Range/Units 05:58 05:58 RBC 3.61 L (3.80-5.40) m/uL Hgb 11.1 L (11.4-16.0) gm/dL ABG pCO2 (35-45) mmHg ABG pO2 (83-108) mmHg ABG HCO3 (21-25) mmol/L ABG Total CO2 (19-24) mmol/L ABG O2 Saturation (94-97) % Carbon Dioxide 31 H (22-30) mmol/L BUN 25 H (7-17) mg/dL Glucose 216 H (74-99) mg/dL POC Glucose (mg/dL) (70-110) mg/dL Calcium 7.9 L (8.4-10.2) mg/dL - Imaging and Cardiology Chest x-ray: image reviewed Assessment and Plan Assessment: Moderate to poorly differentiated pulmonary adenocarcinoma with 13 hilar lymph nodes positive for metastatic carcinoma status post robotic-assisted thoracoscopic left upper lobectomy with mediastinal lymph node dissection Postoperative paroxysmal atrial fibrillation currently sinus bradycardia Left lower lobe atelectasis and mucous plugging with tracheobronchial malacia status post multiple bronchoscopies, ARDS Insulin dependent diabetes with poor glycemic control, hyperglycemia, A1c 8.8% Hypomagnesemia Current tobacco dependence with cessation prior to previous admission Moderate COPD, preoperative FEV1 54% of predicted, DLCO 36% of predicted Current daily EtOH use Hypertension Hyperlipidemia Stroke in 2016 with right-sided weakness Hepatitis B and C Bipolar depression History of IV heroin use with last use August 2018 ADDENDUM: Patient on vent. Continued mucous plugging. Left thoracentesis today yielded 750cc. Continue [facility] vent and daily bronchoscopy Has had very brief episodes of a fib, self limiting. Overall burden of a fib is low. In my opinion, given severity of overall pulmonary illness, need for repeated interventions, fall risk (eventually, once off ventilator and again ambulatory) risk for anticoagulation exceeds risk of a fib. Plan: Will plan to continue daily bronchoscopies, patient likely will remain intubated for the next few days to aid with bronchoscopy Ventilator management, steroids per pulmonology Patient may need tracheostomy next week to aid recovery Continue Mucomyst, bronchodilators, Pulmicort Antibiotics stopped yesterday as they reached their stop date, monitor clinical course off antibiotics Diabetic management per internal medicine, patient needs tight blood sugar control Continue Amiodarone, started on IV heparin by cardiology Medical management of other comorbidities per primary care service, pulmonology More recommendations to follow based on patient's progress
--- NOTE | 2023-04-08 10:37 | PCN ---
PROCEDURE NOTE PROCEDURES PERFORMED: Bronchoscopy, airway examination, therapeutic lavage, BAL. PREOPERATIVE DIAGNOSIS: Left lung collapse. POSTOPERATIVE DIAGNOSIS: Left lung collapse. VESSEL WELDER: First surgical territory manager; Dr. Nataly Barba. DESCRIPTION OF PROCEDURE: The patient's procedure was done in the intensive care unit, room 263. The patient was on the mechanical ventilator. She was on 100% oxygen and 10 of PEEP. The patient received Nimbex prior to the procedure. She was already on propofol for sedation. After the patient was adequately sedated on 100% oxygen, the bronchoscope was inserted through the bronchoscope adapter connected to the endotracheal tube. It was taken through the endotracheal tube out into the distal trachea. The distal trachea appeared relatively normal. There were some secretions noted on the right side. It involved right upper lobe, right middle lobe, and right lower lobe. With the aid of saline lavage, they were suctioned. The patient tolerated this portion of the procedure well. On the left side, there was no left upper lobe because of previous left upper lobectomy. There was a left lower lobe, especially in particular the superior basal segment of the left lower lobe as well as the anterior, medial, lateral and posterior basilar segment of the left lower lobe. A saline lavage was used to suction the areas thoroughly. There were secretions noted. They were thick. They were viscid in appearance. The patient has tolerated the procedure well. No fluid was sent for analysis today. We have done that before. The patient tolerated the procedure well. The bronchoscope was withdrawn. There was no immediate complication. A chest x-ray will be ordered. No additional recommendations are made. MMODL / IJN: [id number] /
[2023-04-08] MEDS ORDERED: FUROSEMIDE 10 MG/ML 4 ML VIAL IV STA (11:06)
[2023-04-08 11:16] LABS: Glucose,Whole Blood 267 mg/dL (70-110)
[2023-04-08] MEDS ORDERED: POTASSIUM BICARBONATE/CIT AC 20 MEQ TABLET.EFF PO ONE (11:20)
--- NOTE | 2023-04-08 11:45 | XR ---
EXAMINATION TYPE: XR chest 1V portable DATE OF EXAM: 04/08/2023 Comparison: 04/08/2023 Clinical History: 57-year-old female post bronch Findings: ET tube satisfactory. NG tube tip just below the GE junction level. Recommend further advancement by approximately 5 cm. Heart is enlarged. Hyperinflation. There has been significant interval evacuation of the patient's left pleural effusion with a moderate sized basilar pneumothorax measuring 6.6 cm. Patient status post left upper lobectomy. Diffuse interstitial opacities persist throughout the right lung. Small effusion on the right. Impression: 1. Evacuation of much of the previous left pleural effusion revealing a moderate sized left basilar p neumothorax measuring up to 6.6 cm. Called to nurse Garcia MARTINEZU at 11:40 AM 2. The NG tube appears to have been pulled back. Advancement by 5 cm. 3. Diffuse interstitial lung disease throughout on the right persists. Small right effusion.
--- NOTE | 2023-04-08 12:09 | XR ---
EXAMINATION TYPE: XR chest 1V portable DATE OF EXAM: 04/08/2023 Comparison: 04/07/2023 Clinical History: 57-year-old female trapped lung Findings: Worsening aeration now with complete whiteout of the left hemithorax. ET tube and NG tube are satisfa ctory. Ongoing small right effusion with diffuse interstitial opacities on the right. Impression: Interval worsening aeration now with complete whiteout left hemithorax. Similar small right effusion and diffuse interstitial opacities on the right.
--- NOTE | 2023-04-08 12:22 | XR ---
EXAMINATION TYPE: XR chest 1V portable DATE OF EXAM: 04/08/2023 Comparison: 04/08/2023 Clinical History: 57-year-old female Hypoxemia Findings: ET and NG tube are satisfactory. Moderate size left-sided pneumothorax redemonstrated measuring 5.8 c m at the base versus 6.6 cm, previously. There does appear to be some reaccumulating effusion at the left base. Multiple pleural edges are noted at the left upper lung both medially and laterally sugges ting multiple pleural edges. Diffuse interstitial opacities persist on the right. Trace right effusio n. Impression: 1. Interval satisfactory repositioning of the NG tube. 2. Ongoing moderate sized left pneumothorax. Measuring 5.8 cm at the bases versus 6.6 cm earlier. A c ouple pleural edges are now better seen at the upper lung. 3. Reaccumulating pleural effusion on the left. 4. Persistent diffuse interstitial opacity throughout the right lung with underlying small right effu patti.
--- NOTE | 2023-04-08 12:34 | P.PN ---
Subjective Progress Note Date: 04/08/23 Principal diagnosis: Shortness of breath. Patient was evaluated today on 04/01/23, a is basically about the same, patient was seen by thoracic surgery and she was told that she will undergo bronchoscopy today. Patient is comfortable, chest x-ray all along has been showing complete opacification of the left lung, hopefully this bronchoscopy would be better than previous bronchoscopy and more beneficial however considering the patient already had 4 bronchoscopies and did not improve her lung condition, I doubt that this will. However this bronchoscopy is being done by thoracic surgery/Dr. June The patient is seen today 04/02/2023 in follow-up on the regular medical floor. She is currently sitting up in a chair. Awake and alert in no acute distress. She is maintaining good O2 saturations in the 90s on 2 L/m per nasal cannula. White count 8.1. Hemoglobin 10.4. Platelets 160. Sodium 135. Potassium 3.8. Bicarb 32. BUN 13. Creatinine 0.7. Glucose 164. Chest x-ray continues to show similar opacification of left lung will occur rectal secondary to atelecta sis and large pleural effusion. No pneumothorax visualized. Enlarging right pleural effusion now small to moderate. She did undergo bronchoscopy yesterday with Dr. June and the plan is to return for another bronchoscopy again today. She is continued on DuoNeb inhalations, Symbicort, Mucinex, Mucomyst, antibiotics in the form of Unasyn. Heparin for DVT prophylaxis. The patient is seen today 04/03/2023 in follow-up on the regular medical floor. She is currently sitting up in a chair at the bedside. Awake and alert in no acute distress. She is maintaining good O2 saturations in the 90s on 2 L/m per nasal cannula. Blood cultures reveal no growth. White count 6.8. Hemoglobin 11.7. Platelets 127. Sodium 136. Potassium 4.1. Bicarb 32. BUN 12. Creatinine 0.8. Glucose 149. Remains on antibiotics in the form of Unasyn. Continued on bronchodilators, Mucomyst, Mucinex. Continued on IV diuretics. Heparin for DVT prophylaxis. The patient is seen today 04/04/2023 in follow-up on the regular medical floor. She did utilize BiPAP through the night 10/5 and 30% FiO2. Otherwise utilizing oxygen at 3 L/m per nasal cannula. She did undergo another bronchoscopy with BAL per CT services today. Chest x-ray continues to show near complete white out of the left hemithorax. Small portion left upper lung mass remains aerated now. Ongoing small to moderate right effusion with adjacent atelectasis. She is encouraged regarding increased use the incentive spirometer. Increase activity as tolerated. Remains on antibiotics in the form of Unasyn. Remains on Symbicort, DuoNeb inhalations, Solu-Medrol, Mucinex and Mucomyst. Heparin for DVT prophylaxis. Remains on IV diuretics. Sodium 135. Potassium 4.6. Bicarb 31. BUN 13. Creatinine 0.55. Glucose 154. ProBNP 2910. Progress note dated 04/05/2023. 57-year-old female with a previous recent history of left upper lobectomy for lung cancer. The patient has been in and out of the hospital multiple times, is required multiple bronchoscopies, for left lung collapse. Currently, the patient is seen today in room 364. She is on 4 L of oxygen. She's getting saline at 10 mL an hour. Her most recent chest x-ray shows partial left lung collapse. Current labs include a sodium 136, potassium 3.9, chlorides 96, CO2 31, BUN 15, creatinine 0.56. Glucose is 198. Calcium is 8.2. Chest x-ray shows postsurgical volume loss, left hemithorax, with slight improvement overall. Progress note dated 04/06/2023. 57-year-old female, who is seen today in room 263. The patient was previously room 364. She underwent bronchoscopy today, with Dr. June, and came back, to the intensive care unit, on the mechanical ventilator. She's getting saline at 125 mL an hour. She is on propofol at 45 mcg/kg/m. Her ventilator settings include the volume assist control, rate 20, tidal volume 350, FiO2 50%, and PEEP of 5. I've asked the nurse, to have respiratory bump up the PEEP from 5 to 8 cm water, and increase the FiO2 up to 60%. Blood gases, on the previous setting show pO2 of 58, pCO2 54, and a pH is 7.41. That was on 50% FiO2, and 5 of PEEP. Additional labs include a white count of 7.1, hemoglobin 10.7, hematocrit 32.3, and a normal platelet count. Sodium 135, potassium 3.8, chlorides 96, CO2 31, BUN 20, creatinine 0.59. Progress note dated 04/07/2023. 57 year old female seen today in room 263. The patient had bronchoscopy done yesterday, by Dr. June. She came back to the intensive care unit, on the mechanical ventilator. This morning, I do another bronchoscopy on the patient, and remove thick mucus and secretions from the left lung area. Currently, the patient remains on the volume assist control, rate 20, tidal volume 350, FiO2 60%, and PEEP of 8. Blood gases show pO2 73, pCO2 of 52, and a pH is 7.43. The patient is currently on saline at 75 mL an hour, and propofol at 35 mcg/kg/m. In addition, the patient is on insulin at 2.05 units an hour. Prior to the bronchoscopy, the patient did receive paralytic common form of Nimbex, 15 mg. The patient will stay on the ventilator overnight, and have another bronchoscopy tomorrow, and one again on Wednesday. Current labs included a white count 7.5, hemoglobin 12, hematocrit 36.7, platelet count 148,000. Sodium 138, potassium 3.9, chlorides 98, CO2 32, BUN 21, creatinine 0.58. Albumin is 2.7. Chest x-ray shows volume loss in the left lung, infiltrate in the right lung, and an effusion on the left side. Progress note dated 04/08/2023. The patient is seen today in room 263. The patient had to procedure today, including a left-sided thoracentesis, were biceps 56 fluid was removed. Also, the patient had a repeat bronchoscopy. Currently, the patient remains on mechanical ventilator, with settings of volume assist control, rate 20, tidal volume 350, FiO2 60%, PEEP of 10. Blood gases done on the same settings, but instead, 5 of PEEP, show pO2 of 54, pCO2 60, pH is 7.37. The patient's on propofol, at 50 mcg/kg/m, saline at 75 mL an hour, and heparin, which was discontinued briefly, for the thoracentesis. She is also on vital high protein, at 10 mL an hour. White count is 8.5, hemoglobin 11.1, hematocrit 35, and platelet count is normal. Sodium 141, potassium 3.9, chlorides 99, CO2 31, BUN 25, creatinine 0.69. Glucose 267. Calcium 7.9, and magnesium is 2. Chest x- rays are reviewed. Objective - Vital Signs Vital signs: Vital Signs Temp 98.2 F 04/08/23 12:00 Pulse 60 04/08/23 12:00 Resp 22 04/08/23 12:00 BP 138/57 04/08/23 12:00 Pulse Ox 100 04/08/23 12:00 FiO2 60 04/08/23 12:00 Intake & Output 04/07/23 04/08/23 04/08/23 18:59 06:59 18:59 Intake Total 0322.533 1642.952 395 Output Total 1275 1150 725 Balance 404.240 249.952 -330 Weight 98.7 kg 99.3 kg 98.2 kg Intake: IV 900 825 395 Sodium Chloride 0.9% 1, 900 825 395 000 ml @ 20 mls/hr IV . Q24H [facility] Rx#:[id number] Intake, IV Titration 222.240 371.952 Amount propofoL 1,000 mg In 222.240 371.952 Empty Bag 1 bag @ 15 MCG/ KG/MIN 8.577 mls/hr IV . [id number] [facility] Rx#:[id number] Oral 265 Tube Feeding 232 203 Other 60 Output: Urine 1275 1150 725 Other: Voiding Method Indwelling Catheter Indwelling Catheter Indwelling Catheter # Bowel Movements 1 - Exam No acute distress, sedated, with an orally placed endotracheal tube, and NG tube. HEENT examination is grossly unremarkable. Neck supple. Full range of motion. No adenopathy thyromegaly or neck vein distention. Cardiovascular examination reveals regular rhythm rate. S1-S2 normal. No S3 or S4. No discernible murmur noted. Heart rate is 60 bpm. Lungs reveal diminished breath sounds on the left. Mild scattered rhonchi are noted. No wheezes or crackles. Right lung is clear. Abdomen soft bowel sounds are heard. No masses or tenderness. Extremities are intact. No cyanosis clubbing or edema. Skin is without rash or lesion. Neurologic examination cannot be currently assessed. - Labs CBC & Chem 7: 04/08/23 05:58 04/08/23 05:58 Labs: Abnormal Lab Results - Last 24 Hours (Table) 04/07/23 04/07/23 04/08/23 Range/Units 18:02 23:54 04:16 RBC (3.80-5.40) m/uL Hgb (11.4-16.0) gm/dL ABG pCO2 (35-45) mmHg ABG pO2 (83-108) mmHg ABG HCO3 (21-25) mmol/L ABG Total CO2 (19-24) mmol/L ABG O2 Saturation (94-97) % Carbon Dioxide (22-30) mmol/L BUN (7-17) mg/dL Glucose (74-99) mg/dL POC Glucose (mg/dL) 279 H 264 H 196 H (70-110) mg/dL Calcium (8.4-10.2) mg/dL 04/08/23 04/08/23 04/08/23 Range/Units 05:39 05:58 05:58 RBC 3.61 L (3.80-5.40) m/uL Hgb 11.1 L (11.4-16.0) gm/dL ABG pCO2 60 H (35-45) mmHg ABG pO2 54 L* (83-108) mmHg ABG HCO3 35 H (21-25) mmol/L ABG Total CO2 36 H (19-24) mmol/L ABG O2 Saturation 87.3 L (94-97) % Carbon Dioxide 31 H (22-30) mmol/L BUN 25 H (7-17) mg/dL Glucose 216 H (74-99) mg/dL POC Glucose (mg/dL) (70-110) mg/dL Calcium 7.9 L (8.4-10.2) mg/dL 04/08/23 Range/Units 11:14 RBC (3.80-5.40) m/uL Hgb (11.4-16.0) gm/dL ABG pCO2 (35-45) mmHg ABG pO2 (83-108) mmHg ABG HCO3 (21-25) mmol/L ABG Total CO2 (19-24) mmol/L ABG O2 Saturation (94-97) % Carbon Dioxide (22-30) mmol/L BUN (7-17) mg/dL Glucose (74-99) mg/dL POC Glucose (mg/dL) 267 H (70-110) mg/dL Calcium (8.4-10.2) mg/dL Assessment and Plan Assessment: Status post bronchoscopy, with suctioning of airway secretions, currently requiring intubation, and mechanical ventilation, 04/06/2023 and 04/07/2023, 04/08/2023, and left-sided thoracentesis on 04/08/2023. Left lung collapse, essentially the left lower lobe secondary to mucous plugs. Bronchoscopy was done during the earlier hospitalization the patient was found to have mucous plugs, significant tracheobronchomalacia, narrowing of the left lower lobe bronchial orifice. Currently on Unasyn. Plan is for daily bronchoscopy per CT services and placed on BiPAP 04/03/2023. Acute on chronic shortness of breath without any worsening in her hypoxemia. The patient's shortness of breath is multifactorial. Obviously she has undergone a left upper lobe resection. She has also complete atelectasis of left lower lobe and several attempts to reexpand the lung on the left has failed as the patient has significant tracheal bronchomalacia, mucus, Haemophilus influenza pneumonia and narrowing of the left lower lobe orifice as noted on several bronchoscopies. The left lung remains unchanged. The acute decompensation could be related to A. fib which is paroxysmal and the patient may have some interval worsening in her volume status. As such, the patient was hospitalized. ProBNP level is elevated. Remains on IV diuretics. Persistent left lower lobe atelectasis. Computed tomography scan of the chest 03/30/2023 revealed increased consolidation and collapse of the left lower lobe with essentially no residual aerated lung seen. Small to moderate size left ple ural effusion however pneumothorax component of this has essentially resolved. Small mucous secretions along the tracheal wall and thoracic inlet. Right hilar adenopathy likely present on prior unenhanced study and suspected unchanged. Moderate right pleural effusions. Previous right upper lobe groundglass infiltrates have resolved. Pulmonary adenocarcinoma with a 1.5 cm mass in the left upper lobe. On 03/15/2023 she had undergone a robotically assisted thoracoscopic left upper lobectomy with mediastinal lymph node dissection, for early stage NSCLC. The final pathologic staging is T1b N1 M0 disease. Acute hypoxic respiratory failure currently on 4 L of oxygen nasal cannula. Tracheobronchomalacia, severe. Paroxysmal atrial fibrillation. History of chronic obstructive pulmonary disease. Chronic tobacco dependence. History of CVA. History of diabetes mellitus. History of hypertension. History of hyperlipidemia. History of alcohol abuse and heroin abuse. History of hepatitis B and C. Plan: Plan dated 04/05/2023. The patient was seen and evaluated. The patient is currently on 4 L of oxygen. Saturations are 96%. The patient is receiving saline at 10 mL an hour. Labs, and x-rays are evaluated. Chest x-ray is about the same, or mildly improved. We will continue to follow make recommendations along the way. The patient will continue on bronchodilators, and BiPAP, as tolerated. The patient should also do incentive spirometer, every hour while awake, and be encouraged to deep breathe, cough, and clear secretions. We will continue to follow make recommendations where appropriate. Prognosis is guarded. Plan dated 04/06/2023. The patient returned back to the intensive care unit, on the mechanical ventilator. Ventilator changes have been made. Gases have been evaluated. The patient is currently on propofol for sedation, at 45 mcg/kg/m. The patient's on saline at 125 mL an hour. Morning labs, x-rays, and blood gases will be done. Cardiothoracic surgery may wish to do bronchoscopy on this patient again tomorrow, and it will be easily facilitated, while the patient is on chemical ventilation. Additional recommendations and suggestions are forthcoming. Labs, x-rays, and medications are reviewed. Plan dated 04/07/2023. The patient had bronchoscopy today, in the intensive care unit, room 263. She was placed on a 100% oxygen. She received some Nimbex before the procedure. I think secretions from the left mainstem bronchus, and the left lower lobe bronchi. The patient tolerated the procedure well. The plan is to keep her on the ventilator, and Vincent or tomorrow, i.e. , as well as Wednesday. In addition, I will check an ultrasound of the left chest, consider thoracentesis, depending on whether or not there is enough fluid, to do the procedure safely. Labs, x-rays, and medications are reviewed. The patient remains on the ventilator. He is on propofol at 35 mcg/kg/m, and insulin at 2.05 units an hour. She's getting saline at 75 mL an hour. We will start tube feedings today. Additional recommendations and suggestions are forthcoming. Prognosis is guarded. Plan dated 04/08/2023. The patient has had bronchoscopy, pretty much every day. I did yesterday and again today. Secretions were suctioned from the left lung. In addition, the patient had a left-sided thoracentesis today was 750 mL of fluid removed. The fluid was sent to laboratory for analysis. The patient tolerated the procedure well. The left lung does not fully expanded. The chest x-ray, though in my opinion, looks improved. We will continue to follow make recommendations along the way. Labs, x-rays, medications are reviewed. Gnosis is guarded. The patient continues on propofol, heparin, and tube feedings. The patient's also receiving saline at 75 mL an hour. Time with Patient: Greater than 30
[2023-04-08 16:45] LABS: Appearance,BF Cloudy (Clear)
[2023-04-08 17:54] LABS: Glucose,Whole Blood 312 mg/dL (70-110)
[2023-04-09 00:33] LABS: Glucose,Whole Blood 213 mg/dL (70-110)
[2023-04-09] MEDS: INSULIN ASPART (NovoLOG) 100 UNIT/ML VIAL SQ SCH ×5 (00:40→23:35)
[2023-04-09 05:00] LABS: HCT 33.3 % (34.0-46.0); HGB 10.6 gm/dL (11.4-16.0); Hypochromasia Marked; MCHC 31.8 g/dL (31.0-37.0); MCV 97.5 fL (80.0-100.0); Mean Platelet Volume 8.3; Platelet Count 159 k/uL (150-450); Poikilocytosis Slight; RBC 3.42 m/uL (3.80-5.40); RDW 13.6 % (11.5-15.5); WBC 7.2 k/uL (3.8-10.6)
--- NOTE | 2023-04-09 05:03 | P.PN ---
Subjective Progress Note Date: 04/08/23 Patient is a 57-year-old female with a past medical history of hypertension, hyperlipidemia, diabetes type 2, history of CVA/TIA with right-sided weakness, recent history of lung cancer, left upper lobectomy in February 2023, bipolar/depression and currently everyday smoker presents to ER with complaints of difficulty in breathing and chest pain. Patient was recently discharged from the hospital on 03/27/2023. Does have a history of non-small cell lung cancer underwent left upper lobectomy complicated by persistent left lower lobe atelectasis requiring multiple bronchoscopies during recent hospitalization. Valve cultures from 07/22/2022 showed haemophilus influenza. Patient was discharged home on Augmentin. On admission chest x-ray showed similar opacification of the left lung likely secondary to atelectasis and large pleural effusion. No pneumothorax visualized. Small right effusion. EKG showed atrial fibrillation with rapid ventricular response with heart rate 117. Patient is currently not on any anticoagulation. Continued on amiodarone. Laboratory data showed WBC 7.7 hemoglobin 11.9 and platelets 186 ABG showed pH 7.41 pCO2 49 and pO2 105 Sodium 136 potassium 4.5 chloride 99 bicarb is 30 BUN 12 and creatinine 0.47 blood sugar 257 and lactic acid 1.7 and calcium 7.9 ESR not elevated. Troponin x 1 negative and proBNP 3090. Influenza A, B, RSV and COVID-19 PCR not detected. Lung resection on 03/15/2023 with final pathology showing moderate to poorly differentiated pulmonary adenocarcinoma. All margins negative for malignancy. 1 of 3 hilar lymph nodes positive for metastatic carcinoma. 03/30/2023 Patient is seen in follow up today with pulmonary following as well as cardiology and adjustments to medications being done. Home medications reviewed and resumed. CT surgery consulted and discussing with surgery about complete lobectomy of the left. Patient continues with pleural effusions noted and has been started on IV lasix 20mg bid and will continue. Labs reviewed and within normal limits. Will follow up on repeat labs and monitor electrolytes and kidney functions closely. Patient is currently afebrile and denies worsening shortness of breath. Patient is continued on 4L and was sent home on this previously last week. Blood sugars elevated and will continue accuchecks achs and adjust medications accordingly. 03/31/2023 Patient seen and evaluated in follow-up today with pulmonary along with cardiothoracic surgery following. Discussing further about possible complete lobectomy of the left with cardiothoracic. Patient per nursing staff is lethargic and has been receiving scheduled Xanax along with Neurontin and pain medications and will decrease the dose of Xanax admitted as needed as well as decreasing the dose of Neurontin. Patient encouraged to increase activity as tolerated and get up more frequently out of the bed and sit up in the chair and work with physical therapy daily. Blood sugars remained elevated and will adjust and make long acting twice daily and continue with sliding scale. Patient continues on 2-3 L via nasal cannula and weaning FiO2 as tolerated. Patient is currently afebrile denies chest pain or palpitations and denies worsening shortness of breath. Patient continues to use incentive spirometer and needs encouragement to do so. Patient is receiving breathing inhalational treatments as well. 04/01/2023 Patient is seen in follow-up today scheduled to undergo bronchoscopy with pulmonary and cardiothoracic surgery following closely. Chest x-ray ordered for post bronchoscopy which is pending. Patient's blood sugars slightly improved and have added long-acting twice daily along with sliding scale. Encouraged increase activity as tolerated. Patient to be evaluated by physical therapy and would recommend daily. Patient also with incentive spirometer at the bedside encouraged to use at least 10 times every hour while awake. Patient reports not feeling she is having worsening shortness of breath although continues to have shortness of breath. 04/02/2023 Patient seen in follow-up this morning currently nothing by mouth and scheduled to undergo repeat bronchoscopy as follow-up chest x-ray showed near complete opacification on the left as well status post bronchoscopy yesterday. Patient is lethargic but arousable and will adjust the medications again and will discontinue Xanax. Patient worked with physical therapy this patient is significantly weak and has had multiple prolonged hospitalizations would likely be going to [facility] on discharge. Will await clearance from CT surgery pulmonary to discuss discharge planning. Patient is afebrile with no reports of worsening shortness of breath. Patient tolerating diet although given patient's lethargy will recommend aspiration precautions. 04/03/2023 Patient is evaluated today sitting up in the chair, currently wearing BiPAP. Patient underwent bronchoscopy today with Dr. Oshea pending surgical report. Chest xray reveals extensive pleural parenchymal opacity left hemithorax some interval improvement of the aeration of the left lung. Worsening small - to moderate right pleural effusion with adjacent atelectasis and or consolidation. Patient continues on IV lasix 20 mg IV Q12h. Magnesium today 1.5. 04/04/2023 Patient evaluated today sitting up in the chair. Currently on nasal cannula wanting to try and eat breakfast. She is tachypneic using accessory muscles to take a deep breath. She has minimal aeration over the left lung with chest xray today showing near complete white out of the left hemithorax, aeration worsening from yesterday. A small portion of the left upper lung remains aerated now. Ongoing small to moderate left pleural effusion adjacent atelectasis and or consolidation. Patient underwent bronchoscopy again this morning due to the mucus plugging of the left mainstem bronchus. Patient had thick yellow sputum s uctioned from the left main bronchus. Continues on IV lasix 20 mg Q12h, and additionally, has been started on IV steroids toda by pulmonary team. proBNP 2910. Sodium 135, potassium 4.6, BUN 13, creatinine 0.55, magnesium 1.8, glucose 228. 04/05/2023 Patient is seen in follow-up today currently awaiting to undergo bronchoscopy again with cardiothoracic surgery on 04/06/2023. Chest x-ray continues to show near complete opacification on the left. Patient continues with ongoing bilateral pleural effusions and is maintained on IV Lasix. Patient started on IV steroids with pulmonary following closely and blood sugars are completely uncontrolled in the 500s. Will initiate insulin drip and continue with protocol and Accu-Cheks every hour and tighter glycemic control. Patient will be nothing by mouth at midnight again for bronchoscopy and will await report. Will discuss further with CT surgery regarding overall treatment plan. Patient with significant weakness recommend physical therapy daily. Patient needs Encouraged increased activity as tolerated as patient has been mostly sitting and sleeping throughout most of hospitalization. 04/06/2023 Patient is seen in follow-up today currently sitting up in the chair awaiting to undergo repeat bronchoscopy with CT surgery today. Patient continues on 4-5 L via nasal cannula reporting continued shortness of breath. Patient's blood sugars are more controlled and patient is maintained on insulin drip and was currently nothing by mouth for the procedure. Will await surgical report and continue insulin drip for now with close monitoring to monitor for any episodes of hypoglycemia. Patient is afebrile denies chest pain or palpitations. 04/07/2023 Patient is seen and evaluated in follow-up currently in the ICU as of yesterday post bronchoscopy this patient had some increased respiratory distress requiring mechanical ventilation and is currently maintained on FiO2 of 60% with a PEEP of 8. Plan is for repeat bronchoscopy today with pulmonary and tentatively scheduled for repeat bronchoscopies on and Wednesday. Patient remains on insulin drip and blood sugars are more controlled and patient is being started on tube feedings and will adjust the medications and continue sliding scale and add long-acting if needed. Patient is a poorly controlled diabetic with hyperglycemia. Patient is currently afebrile showing A. fib on the monitor. Patient does have history of atrial fibrillation and cardiology has been consulted. Prognosis remains extremely guarded at this time. 04/08/2023 Patient is seen in follow-up today remains in the ICU on mechanical ventilation. Follow-up chest x-ray continues to show complete opacification medication on the left and scheduled for bronchoscopy again today. Patient to also undergo left side thoracentesis. Patient is afebrile and current settings on the vent are FI02 of 60% and peep is 10. Patient prognosis is extremely guarded. Review of systems: Unable to assess as patient is on mechanical ventilation and sedated Active Medications Acetaminophen (Acetaminophen Tab 325 Mg Tab) 650 mg PO Q4HR PRN PRN Reason: Mild Pain or Fever > 100.5 Last Admin: 04/06/23 08:46 Dose: 650 mg Hydrocodone Bitart/Acetaminophen (Hydrocodone/Apap 5-325mg 1 Each Tab) 1 each PO Q6HR PRN PRN Reason: Pain Last Admin: 04/08/23 18:08 Dose: 1 each Acetylcysteine (Acetylcysteine 800 Mg/4 Ml Vial) 200 mg INHALATION RT-TID [facility] Last Admin: 04/08/23 19:43 Dose: 200 mg Albuterol/Ipratropium (Ipratropium-Albuterol 3 Ml Neb) 3 ml INHALATION RT-QID [facility] Last Admin: 04/08/23 19:44 Dose: 3 ml Albuterol/Ipratropium (Ipratropium-Albuterol 3 Ml Neb) 3 ml INHALATION RT-Q2H PRN PRN Reason: Shortness Of Breath Or Wheezing Last Admin: 04/08/23 04:45 Dose: 3 ml Amiodarone HCl (Amiodarone 200 Mg Tab) 200 mg PO BID [facility] Last Admin: 04/08/23 20:07 Dose: 200 mg Atorvastatin Calcium (Atorvastatin 10 Mg Tab) 10 mg PO DAILY [facility] Last Admin: 04/08/23 08:10 Dose: 10 mg Budesonide (Budesonide 1 Mg/2 Ml Nebu) 1 mg INHALATION RT-BID [facility] Last Admin: 04/08/23 19:44 Dose: 1 mg Chlorhexidine Gluconate (Chlorhexidine Gluconate 15 Ml Cup) 15 ml MUCOUS MEM BID [facility] Last Admin: 04/08/23 20:07 Dose: 15 ml Dextrose/Water (Dextrose 50% Syringe 50 Ml) 25 ml IVP PER PROTOCOL PRN; Protocol PRN Reason: Hypoglycemia Dextrose/Water (Dextrose 50% Syringe 50 Ml) 50 ml IVP PER PROTOCOL PRN; Protocol PRN Reason: Hypoglycemia Docusate Sodium (Docusate 100 Mg Cap) 100 mg PO DAILY PRN PRN Reason: Constipation Last Admin: 04/01/23 23:37 Dose: 100 mg Folic Acid (Folic Acid 1 Mg Tab) 1 mg PO DAILY [facility] Last Admin: 04/08/23 08:11 Dose: 1 mg Formoterol Fumarate (Formoterol Fumarate 20 Mcg/2 Ml Nebu) 20 mcg INHALATION RT-BID [facility] Last Admin: 04/08/23 19:44 Dose: 20 mcg Furosemide (Furosemide 10 Mg/Ml 2 Ml Vial) 20 mg IV Q8H [facility] Last Admin: 04/08/23 22:28 Dose: 20 mg Gabapentin (Gabapentin 400 Mg Cap) 400 mg PO TID [facility] Last Admin: 04/08/23 20:07 Dose: 400 mg Guaifenesin (Guaifenesin 600 Mg Tablet.Er) 1,200 mg PO Q12HR [facility] Last Admin: 04/08/23 20:07 Dose: 1,200 mg Heparin Sodium (Porcine) (Heparin Sodium 1,000 Un/Ml (10ml Vl)) 0 unit IV PER PROTOCOL PRN; Protocol PRN Reason: Low PTT Propofol 1,000 mg/ IV Solution 100 mls @ 8.577 mls/hr IV .[id number] [facility]; Protocol Last Admin: 04/08/23 22:28 Dose: 45 mcg/kg/min, 25.731 mls/hr Sodium Chloride (Saline 0.9%) 1,000 mls @ 20 mls/hr IV .Q24H [facility] Last Admin: 04/08/23 09:19 Dose: Not Given Heparin Sodium/Sodium Chloride (25,000 unit/ Sodium Chloride) 250 mls @ 10 mls/hr IV .Q24H [facility]; Protocol Last Admin: 04/08/23 08:23 Dose: 10.07 units/kg/hr, 10 mls/hr Insulin Aspart (Insulin Aspart (Novolog) 100 Unit/Ml Vial) 0 unit SQ Q6HR [facility]; Protocol Last Admin: 04/09/23 00:40 Dose: 4 unit Methylprednisolone Sodium Succinate (Methylprednisolone Sod Succi 125 Mg/2 Ml Vial) 60 mg IV DAILY [facility] Last Admin: 04/08/23 08:04 Dose: 60 mg Miscellaneous Information (Magnesium Replacement Protocol 1 Each Misc) 1 each MISCELLANE DAILY PRN; Protocol PRN Reason: Per Protocol Miscellaneous Information (Potassium Replacement Protocol 1 Each Misc) 1 each MISCELLANE DAILY PRN; Protocol PRN Reason: Per Protocol Naloxone HCl (Naloxone 0.4 Mg/Ml 1 Ml Vial) 0.2 mg IVP Q2M PRN PRN Reason: Opioid Reversal Pantoprazole Sodium (Pantoprazole 40 Mg Tablet) 40 mg PO DAILY [facility] Last Admin: 04/08/23 08:04 Dose: 40 mg Polyethylene Glycol (Polyethylene Glycol 3350 17 Gm Powd.Pack) 17 gm PO HS PRN PRN Reason: Constipation Senna (Sennosides 8.6 Mg Tab) 8.6 mg PO BID [facility] Last Admin: 04/08/23 20:07 Dose: 8.6 mg Thiamine HCl (Thiamine 100 Mg Tab) 100 mg PO DAILY [facility] Last Admin: 04/08/23 08:04 Dose: 100 mg PHYSICAL EXAMINATION: Patient is a 57-year-old female was currently on mechanical ventilation and intubated and sedated Well-developed, well-nourished. Elderly-appearing. obese HEENT: Normocephalic. Neck is supple. Pupils reactive. Nostrils clear. Oral cavity is moist. Neck reveals no JVD, carotid bruits, or thyromegaly. CHEST EXAMINATION: Trachea is central. Symmetrical expansion . Left basilar diminished sounds. No wheezing or rhonchi. CARDIAC: S1, S2 muffled, irregular ABDOMEN: Soft. Bowel sounds present. Nontender. No organomegaly. No abdominal bruits. Extremities: Lower extremity trace edema. No clubbing or cyanosis Neurologically sedated on mechanical ventilation at this time Skin: No rash or skin lesions. Musculoskeletal: No joint swelling or deformity. Assessment: Worsening shortness of breath secondary to persistent left lower lobe atelectasis/collapse despite multiple bronchoscopies during recent admission and Pleural effusion. Patient is status post 4 bronchoscopies this admission and underwent bronchoscopy repeat 04/04/23 with suctioning of thick yellow secretions. Patient underwent bronchoscopy yesterday with multiple mucous plugs and secretions removed and had some respiratory difficulty post bronchoscopy requiring mechanical ventilation. FiO2 is 60% with a PEEP of 8 and will remain on mechanical ventilation if there are plans for repeat bronchoscopies today and Wednesday. 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 Haemophilus influenza pneumonia. Recent BAL culture showed haemophilus. Paroxysmal atrial fibrillation with rapid ventricular rate. Patient has new onset A-fib on 03/21/2023. Continued on amiodarone. Not on anticoagulation. Patient in uncontrolled rate and cardiology following and making adjustments to medications Pulmonary adenocarcinoma with recent left upper lobe resection on 03/15/2023 Acute on chronic hypoxic respiratory failure requiring 3-4 L oxygen via nasal cannula on admission. Patient was at 2 L during recent discharge. Severe tracheal bronchomalacia COPD History of CVA with right-sided weakness Diabetes type 2, uncontrolled with hyperglycemia Hypertension Hyperlipidemia History of hepatitis B&C History of alcohol abuse and hides abuse Anxiety/depression and PTSD/bipolar. Currently everyday smoker, reports to quitting on last admission obesity with a bmi of 36.4 GI and DVT prophylaxis Full code Plan: Patient had repeat bronchoscopy yesterday experiencing some increased and respiratory demands and some respiratory distress requiring mechanical ventilation and is currently in the ICU with multiple medical consultations following. Patient will remain on mechanical ventilation for now as patient is scheduled to undergo repeat bronchoscopies today as well as thoracentesis on the left. Repeat bronch tentatively on Wednesday Blood sugars continue to be elevated and was maintained on insulin drip although being started on tube feedings and having nightly recurrences of nothing by mouth status for repeat bronchoscopy scheduled for the next few days and will adjust medications to sliding scale and long-acting if needed Patient to continue on telemetry monitoring for afib and cardiology following and adjusting medications. Patient is not currently on any anticoagulation Follow-up on repeat labs and repeat chest x-ray in the a.m. Patient is continued on IV steroids as well and we'll continue to monitor Accu- Cheks before meals and at bedtime Due to multiple complex medical issues, overall prognosis is extremely guarded at this time The impression and plan of care has been dictated by Rahel Crabtree, Nurse Practitioner as directed. Dr. John MD I have performed a history and examination and MDM of this patient, discussed the same with the dictator, and agree with the dictator's assessment and plan as written ,documented as a scribe. Based on total visit time, I have performed more than 50% of the visit. Objective - Vital Signs Vital signs: Vital Signs Temp 97.7 F 04/08/23 08:00 Pulse 66 04/08/23 11:18 Resp 23 04/08/23 11:18 BP 128/92 04/08/23 09:00 Pulse Ox 92 L 04/08/23 09:00 FiO2 100 04/08/23 11:05 Intake & Output 04/07/23 04/08/23 04/08/23 18:59 06:59 18:59 Intake Total 8951.504 4582.952 375 Output Total 1275 1150 650 Balance 404.240 249.952 -275 Weight 98.7 kg 99.3 kg 98.2 kg Intake: IV 900 825 375 Sodium Chloride 0.9% 1, 900 825 375 000 ml @ 20 mls/hr IV . Q24H [facility] Rx#:[id number] Intake, IV Titration 222.240 371.952 Amount propofoL 1,000 mg In 222.240 371.952 Empty Bag 1 bag @ 15 MCG/ KG/MIN 8.577 mls/hr IV . [id number] [facility] Rx#:[id number] Oral 265 Tube Feeding 232 203 Other 60 Output: Urine 1275 1150 650 Other: Voiding Method Indwelling Catheter Indwelling Catheter Indwelling Catheter # Bowel Movements 1 - Labs CBC & Chem 7: 04/08/23 05:58 04/08/23 05:58 Labs: Abnormal Lab Results - Last 24 Hours (Table) 04/07/23 04/07/23 04/08/23 Range/Units 18:02 23:54 04:16 RBC (3.80-5.40) m/uL Hgb (11.4-16.0) gm/dL ABG pCO2 (35-45) mmHg ABG pO2 (83-108) mmHg ABG HCO3 (21-25) mmol/L ABG Total CO2 (19-24) mmol/L ABG O2 Saturation (94-97) % Carbon Dioxide (22-30) mmol/L BUN (7-17) mg/dL Glucose (74-99) mg/dL POC Glucose (mg/dL) 279 H 264 H 196 H (70-110) mg/dL Calcium (8.4-10.2) mg/dL 04/08/23 04/08/23 04/08/23 Range/Units 05:39 05:58 05:58 RBC 3.61 L (3.80-5.40) m/uL Hgb 11.1 L (11.4-16.0) gm/dL ABG pCO2 60 H (35-45) mmHg ABG pO2 54 L* (83-108) mmHg ABG HCO3 35 H (21-25) mmol/L ABG Total CO2 36 H (19-24) mmol/L ABG O2 Saturation 87.3 L (94-97) % Carbon Dioxide 31 H (22-30) mmol/L BUN 25 H (7-17) mg/dL Glucose 216 H (74-99) mg/dL POC Glucose (mg/dL) (70-110) mg/dL Calcium 7.9 L (8.4-10.2) mg/dL 04/08/23 Range/Units 11:14 RBC (3.80-5.40) m/uL Hgb (11.4-16.0) gm/dL ABG pCO2 (35-45) mmHg ABG pO2 (83-108) mmHg ABG HCO3 (21-25) mmol/L ABG Total CO2 (19-24) mmol/L ABG O2 Saturation (94-97) % Carbon Dioxide (22-30) mmol/L BUN (7-17) mg/dL Glucose (74-99) mg/dL POC Glucose (mg/dL) 267 H (70-110) mg/dL Calcium (8.4-10.2) mg/dL
[2023-04-09 05:26] LABS: ALT 22 U/L (4-34); AST 26 U/L (14-36); African American GFR (CKD) >90 (>60 ml/min/1.73 sqM); Albumin 2.7 g/dL (3.5-5.0); Alkaline Phosphatase 71 U/L (38-126); Blood Urea Nitrogen 23 mg/dL (7-17); Calcium 7.7 mg/dL (8.4-10.2); Chloride 97 mmol/L (98-107); Glucose 169 mg/dL (74-99); Magnesium 1.8 mg/dL (1.6-2.3); Non-African American GFR(CKD) >90 (>60 ml/min/1.73 sqM); Potassium 3.7 mmol/L (3.5-5.1); Sodium 139 mmol/L (137-145); Total Bilirubin 0.4 mg/dL (0.2-1.3); Total Protein 5.8 g/dL (6.3-8.2)
[2023-04-09 05:32] LABS: Anion Gap 9 mmol/L; Carbon Dioxide 33 mmol/L (22-30)
[2023-04-09] MEDS: HEPARIN SOD,PORK IN 0.45% NACL 25,000 UNIT in 0.45% NACL 1 250ML.BAG IV SCH (06:04)
[2023-04-09 06:09] LABS: Glucose,Whole Blood 226 mg/dL (70-110)
[2023-04-09] MEDS: FUROSEMIDE 10 MG/ML 2 ML VIAL IV SCH ×3 (06:14→23:35)
[2023-04-09] MEDS: INSULIN DETEMIR (LEVEMIR) 100 UNIT/ML SYR SQ SCH ×2 (06:14→20:18)
[2023-04-09 06:15] LABS: ABG Base Excess 14.5 mmol/L; ABG HCO3 39 mmol/L (21-25); ABG Oxygen Saturation 89.8 % (94-97); ABG PCO2 64 mmHg (35-45); ABG TCO2 41 mmol/L (19-24); Allen Test Performed? Yes
[2023-04-09 06:17] LABS: ABG PO2 56 mmHg (83-108)
[2023-04-09] MEDS ORDERED: MAGNESIUM SULFATE-D5W PMX 1 GM in DEXTROSE/WATER 1 100ML.BAG IVPB ONE (07:34)
--- NOTE | 2023-04-09 07:45 | P.PN ---
Subjective Progress Note Date: 04/09/23 Principal diagnosis: The patient is a 57-year-old female patient who is currently intubated and she is on mechanical ventilation and we requested to see the patient for paroxysmal atrial fibrillation. The history was taken from the chart. Apparently the patient does have history of paroxysmal atrial fibrillation and she was receiving amiodarone orally and also she does have history of stroke and diabetes and hypertension and dyslipidemia and chronic obstructive pulmonary di sease and drug abuse. The patient has been in the hospital for few days. 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 She was admitted to the hospital this time with what it seems to be related to pneumonia. Also she underwent bronchoscopy multiple times because of the collapse of the left lung. Currently she is intubated and she is on mechanical ventilation. We consulted to see the patient because she did have an episode of tachycardia yesterday. I did get the EKG which seems to be somewhat concerning for atrial fibrillation which is known to the patient from before. Currently she is back in normal sinus mechanism. For some reason the patient is not on any anticoagulation. Her hemoglobin is stable. I am going to consider starting the patient on heparin IV at this point and consider switching her to oral anticoagulation unless there is any contraindication from another aspects. Beside that continue the current medical regimen including the current dose of amiodarone. The examination is remarkable for stable vital signs with regular rhythm and distant heart sounds and imaged breathing sounds and mild bilateral lower extremity edema noted. 04/09/2023 The patient was seen and evaluated this morning. She continues to be intubated on mechanical ventilation but she is hemodynamically stable but she underwent bronchoscopy yesterday and she is possibly need to undergo another one today beach she has been maintaining normal sinus mechanism. She was started on he gregory which we will continue at this point and consider switching the patient to oral anticoagulation once she does not need any other surgical/invasive procedures. The examination is remarkable for regular rhythm with distant heart sounds and bilateral expiratory wheezing and mild bilateral lower extremities edema noted. Assessment Acute respiratory failure Paroxysmal atrial fibrillation Hypertension/dyslipidemia/diabetes History of drug abuse Chronic obstructive pulmonary disease Plan Continue the current medical regimen Follow-up with the patient Objective - Vital Signs Vital signs: Vital Signs Temp 97.7 F 04/09/23 04:00 Pulse 55 L 04/09/23 07:00 Resp 25 H 04/09/23 07:00 BP 127/64 04/09/23 07:00 Pulse Ox 95 04/09/23 07:00 FiO2 70 04/09/23 06:15 Intake & Output 04/08/23 04/09/23 04/09/23 18:59 06:59 18:59 Intake Total 240.031 2635.783 Output Total 1100 975 Balance -253.563 165.783 Weight 98.2 kg 99.2 kg Intake: IV 515 260 Sodium Chloride 0.9% 1, 515 260 000 ml @ 20 mls/hr IV . Q24H [facility] Rx#:[id number] Intake, IV Titration 186.437 413.783 Amount Heparin Sod,Pork in 0.45% 216.833 NaCl 25,000 unit In 0.45 % NaCl 1 250ml.bag @ 10. 07 UNITS/KG/HR 10 mls/hr IV .Q24H [facility] Rx#: [id number] propofoL 1,000 mg In 186.437 196.95 Empty Bag 1 bag @ 15 MCG/ KG/MIN 8.577 mls/hr IV . [id number] [facility] Rx#:[id number] Tube Feeding 145 377 Other 90 Output: Urine 1100 975 Other: Voiding Method Indwelling Catheter Indwelling Catheter - Labs CBC & Chem 7: 04/09/23 04:31 04/09/23 04:31 Labs: Abnormal Lab Results - Last 24 Hours (Table) 04/08/23 04/08/23 04/08/23 Range/Units 09:00 10:57 11:14 RBC (3.80-5.40) m/uL Hgb (11.4-16.0) gm/dL Hct (34.0-46.0) % APTT (22.0-30.0) sec ABG pCO2 (35-45) mmHg ABG pO2 (83-108) mmHg ABG HCO3 (21-25) mmol/L ABG Total CO2 (19-24) mmol/L ABG O2 Saturation (94-97) % Chloride (98-107) mmol/L Carbon Dioxide (22-30) mmol/L BUN (7-17) mg/dL Glucose (74-99) mg/dL POC Glucose (mg/dL) 267 H (70-110) mg/dL Calcium (8.4-10.2) mg/dL Total Protein (6.3-8.2) g/dL Albumin (3.5-5.0) g/dL Procalcitonin 0.12 H (0.02-0.09) ng/mL Fluid Appearance Cloudy A (Clear) 04/08/23 04/08/23 04/09/23 Range/Units 14:58 17:53 00:32 RBC (3.80-5.40) m/uL Hgb (11.4-16.0) gm/dL Hct (34.0-46.0) % APTT 47.2 H (22.0-30.0) sec ABG pCO2 (35-45) mmHg ABG pO2 (83-108) mmHg ABG HCO3 (21-25) mmol/L ABG Total CO2 (19-24) mmol/L ABG O2 Saturation (94-97) % Chloride (98-107) mmol/L Carbon Dioxide (22-30) mmol/L BUN (7-17) mg/dL Glucose (74-99) mg/dL POC Glucose (mg/dL) 312 H 213 H (70-110) mg/dL Calcium (8.4-10.2) mg/dL Total Protein (6.3-8.2) g/dL Albumin (3.5-5.0) g/dL Procalcitonin (0.02-0.09) ng/mL Fluid Appearance (Clear) 04/09/23 04/09/23 04/09/23 Range/Units 04:31 04:31 04:31 RBC 3.42 L (3.80-5.40) m/uL Hgb 10.6 L (11.4-16.0) gm/dL Hct 33.3 L (34.0-46.0) % APTT 63.4 H (22.0-30.0) sec ABG pCO2 (35-45) mmHg ABG pO2 (83-108) mmHg ABG HCO3 (21-25) mmol/L ABG Total CO2 (19-24) mmol/L ABG O2 Saturation (94-97) % Chloride 97 L (98-107) mmol/L Carbon Dioxide 33 H (22-30) mmol/L BUN 23 H (7-17) mg/dL Glucose 169 H (74-99) mg/dL POC Glucose (mg/dL) (70-110) mg/dL Calcium 7.7 L (8.4-10.2) mg/dL Total Protein 5.8 L (6.3-8.2) g/dL Albumin 2.7 L (3.5-5.0) g/dL Procalcitonin (0.02-0.09) ng/mL Fluid Appearance (Clear) 04/09/23 04/09/23 Range/Units 06:07 06:13 RBC (3.80-5.40) m/uL Hgb (11.4-16.0) gm/dL Hct (34.0-46.0) % APTT (22.0-30.0) sec ABG pCO2 64 H (35-45) mmHg ABG pO2 56 L* (83-108) mmHg ABG HCO3 39 H (21-25) mmol/L ABG Total CO2 41 H (19-24) mmol/L ABG O2 Saturation 89.8 L (94-97) % Chloride (98-107) mmol/L Carbon Dioxide (22-30) mmol/L BUN (7-17) mg/dL Glucose (74-99) mg/dL POC Glucose (mg/dL) 226 H (70-110) mg/dL Calcium (8.4-10.2) mg/dL Total Protein (6.3-8.2) g/dL Albumin (3.5-5.0) g/dL Procalcitonin (0.02-0.09) ng/mL Fluid Appearance (Clear)
[2023-04-09] MEDS: methylPREDNISolone SOD SUCCI 125 MG/2 ML VIAL IV SCH (07:55)
[2023-04-09] MEDS: CHLORHEXIDINE GLUCONATE 15 ML CUP MUCOUS MEM SCH ×2 (07:55→19:50)
[2023-04-09] MEDS: PANTOPRAZOLE 40 MG TABLET PO SCH (07:56)
[2023-04-09] MEDS: HYDROcodone/APAP 5-325MG 1 EACH TAB PO PRN (07:56)
[2023-04-09] MEDS: ATORVASTATIN 10 MG TAB PO SCH (07:56)
[2023-04-09] MEDS: AMIODARONE 200 MG TAB PO SCH ×2 (07:56→19:49)
[2023-04-09] MEDS: GABAPENTIN 400 MG CAP PO SCH ×3 (07:56→19:49)
[2023-04-09] MEDS: guaiFENesin 600 MG TABLET.ER PO SCH ×2 (07:56→19:49)
[2023-04-09] MEDS: THIAMINE 100 MG TAB PO SCH (07:56)
[2023-04-09] MEDS: FOLIC ACID 1 MG TAB PO SCH (07:56)
[2023-04-09] MEDS: SENNOSIDES 8.6 MG TAB PO SCH ×2 (07:56→19:49)
[2023-04-09] MEDS ORDERED: POTASSIUM BICARBONATE/CIT AC 20 MEQ TABLET.EFF NG-TUBE SCH (08:00)
--- NOTE | 2023-04-09 08:26 | P.PN ---
Subjective Progress Note Date: 04/09/23 Principal diagnosis: Shortness of breath, rapid atrial fibrillation present on admission. History of moderate to poorly differentiated pulmonary adenocarcinoma with 13 hilar lymph nodes positive for metastatic carcinoma status post robotic-assisted thoracoscopic left upper lobectomy with mediastinal lymph node dissection, postoperative paroxysmal atrial fibrillation, left lower lobe atelectasis and mucous plugging with tracheobronchial malacia status post bronchoscopy 3, ins ulin dependent diabetes with poor glycemic control, hypomagnesemia, current tobacco dependence with cessation prior to previous admission, moderate COPD, current daily EtOH use, hypertension, hyperlipidemia, stroke in 2016 with right- sided weakness, hepatitis B and C, bipolar depression, IV heroin use 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 Remains intubated and sedated. Currently sinus bradycardia with heart rate in the 50s, hemodynamically stable. Patient has undergone bronchoscopy daily, extensive thick mucus has been removed each time. In addition she had a left-sided thoracentesis yesterday with removal of 750 mL fluid which was sent for cytology and culture. No definitive ARDS, CXR rev iewed, patient does have underlying trapped left lung with accumulation of pleural fluid and persistent diffuse interstitial opacities throughout the right lung. Ventilator adjustments made by radiographer mammographer. Remains off antibiotics, remains afebrile, CBC normal. Currently receiving IV Solu-Medrol. Was started on IV heparin due to paroxysmal atrial fibrillation, will continue for now after discussion with Dr. Crooks and Dr. Reynolds. Objective - Vital Signs Vital signs: Vital Signs Temp 97.7 F 04/09/23 04:00 Pulse 55 L 04/09/23 07:00 Resp 25 H 04/09/23 07:00 BP 127/64 04/09/23 07:00 Pulse Ox 95 04/09/23 07:00 FiO2 70 04/09/23 06:15 Intake & Output 04/08/23 04/09/23 04/09/23 18:59 06:59 18:59 Intake Total 177.730 5373.783 217.616 Output Total 1100 975 225 Balance -253.563 165.783 -7.384 Weight 98.2 kg 99.2 kg Intake: IV 515 260 20 Sodium Chloride 0.9% 1, 515 260 20 000 ml @ 20 mls/hr IV . Q24H [facility] Rx#:[id number] Intake, IV Titration 186.437 413.783 168.616 Amount Heparin Sod,Pork in 0.45% 216.833 NaCl 25,000 unit In 0.45 % NaCl 1 250ml.bag @ 10. 07 UNITS/KG/HR 10 mls/hr IV .Q24H [facility] Rx#: [id number] Magnesium Sulfate-D5w Pmx 100 1 gm In Dextrose/Water 1 100ml.bag @ 100 mls/hr IVPB ONCE ONE Rx#: [id number] propofoL 1,000 mg In 186.437 196.95 68.616 Empty Bag 1 bag @ 15 MCG/ KG/MIN 8.577 mls/hr IV . [id number] [facility] Rx#:[id number] Tube Feeding 145 377 29 Other 90 Output: Urine 1100 975 225 Other: Voiding Method Indwelling Catheter Indwelling Catheter - Exam CONSTITUTIONAL: Remains sedated and intubated, no acute distress RESPIRATORY: Lungs sounds diminished on the left, expiratory wheezes present throughout both lungs. Respirations even, nonlabored on mechanical ventilation. Current ventilator settings FiO2 70%, PEEP 10, tidal volume 350, respiratory rate 20. 8.0 ET tube present, 23 at the lip CARDIOVASCULAR: S1, S2 present. Slow but regular rate and rhythm, sinus bradycardia on telemetry. Doppler lower extremity pulses bilaterally. Bilateral lower extremity pitting edema present, [place] wraps present from toes to knees, SCDs present. GASTROINTESTINAL: Abdomen soft, nontender, nondistended. Active bowel sounds present 4 quadrants. Positive bowel movement yesterday. OG tube present, TF infusing at 29 mL/hr, no residual per nursing GENITOURINARY: Cameron catheter present draining clear yellow urine, output 1965 mL in the last 24 hours INTEGUMENTARY: Skin is warm and dry NEUROLOGIC: Currently sedated with propofol - Allied health notes Allied health notes reviewed: nursing - Labs CBC & Chem 7: 04/09/23 04:31 04/09/23 04:31 Labs: Abnormal Lab Results - Last 24 Hours (Table) 04/08/23 04/08/23 04/08/23 Range/Units 09:00 10:57 11:14 RBC (3.80-5.40) m/uL Hgb (11.4-16.0) gm/dL Hct (34.0-46.0) % APTT (22.0-30.0) sec ABG pCO2 (35-45) mmHg ABG pO2 (83-108) mmHg ABG HCO3 (21-25) mmol/L ABG Total CO2 (19-24) mmol/L ABG O2 Saturation (94-97) % Chloride (98-107) mmol/L Carbon Dioxide (22-30) mmol/L BUN (7-17) mg/dL Glucose (74-99) mg/dL POC Glucose (mg/dL) 267 H (70-110) mg/dL Calcium (8.4-10.2) mg/dL Total Protein (6.3-8.2) g/dL Albumin (3.5-5.0) g/dL Procalcitonin 0.12 H (0.02-0.09) ng/mL Fluid Appearance Cloudy A (Clear) 04/08/23 04/08/23 04/09/23 Range/Units 14:58 17:53 00:32 RBC (3.80-5.40) m/uL Hgb (11.4-16.0) gm/dL Hct (34.0-46.0) % APTT 47.2 H (22.0-30.0) sec ABG pCO2 (35-45) mmHg ABG pO2 (83-108) mmHg ABG HCO3 (21-25) mmol/L ABG Total CO2 (19-24) mmol/L ABG O2 Saturation (94-97) % Chloride (98-107) mmol/L Carbon Dioxide (22-30) mmol/L BUN (7-17) mg/dL Glucose (74-99) mg/dL POC Glucose (mg/dL) 312 H 213 H (70-110) mg/dL Calcium (8.4-10.2) mg/dL Total Protein (6.3-8.2) g/dL Albumin (3.5-5.0) g/dL Procalcitonin (0.02-0.09) ng/mL Fluid Appearance (Clear) 04/09/23 04/09/23 04/09/23 Range/Units 04:31 04:31 04:31 RBC 3.42 L (3.80-5.40) m/uL Hgb 10.6 L (11.4-16.0) gm/dL Hct 33.3 L (34.0-46.0) % APTT 63.4 H (22.0-30.0) sec ABG pCO2 (35-45) mmHg ABG pO2 (83-108) mmHg ABG HCO3 (21-25) mmol/L ABG Total CO2 (19-24) mmol/L ABG O2 Saturation (94-97) % Chloride 97 L (98-107) mmol/L Carbon Dioxide 33 H (22-30) mmol/L BUN 23 H (7-17) mg/dL Glucose 169 H (74-99) mg/dL POC Glucose (mg/dL) (70-110) mg/dL Calcium 7.7 L (8.4-10.2) mg/dL Total Protein 5.8 L (6.3-8.2) g/dL Albumin 2.7 L (3.5-5.0) g/dL Procalcitonin (0.02-0.09) ng/mL Fluid Appearance (Clear) 04/09/23 04/09/23 Range/Units 06:07 06:13 RBC (3.80-5.40) m/uL Hgb (11.4-16.0) gm/dL Hct (34.0-46.0) % APTT (22.0-30.0) sec ABG pCO2 64 H (35-45) mmHg ABG pO2 56 L* (83-108) mmHg ABG HCO3 39 H (21-25) mmol/L ABG Total CO2 41 H (19-24) mmol/L ABG O2 Saturation 89.8 L (94-97) % Chloride (98-107) mmol/L Carbon Dioxide (22-30) mmol/L BUN (7-17) mg/dL Glucose (74-99) mg/dL POC Glucose (mg/dL) 226 H (70-110) mg/dL Calcium (8.4-10.2) mg/dL Total Protein (6.3-8.2) g/dL Albumin (3.5-5.0) g/dL Procalcitonin (0.02-0.09) ng/mL Fluid Appearance (Clear) Microbiology - Last 24 Hours (Table) 04/08/23 09:00 Gram Stain - Preliminary Pleural Fluid - Imaging and Cardiology Chest x-ray: image reviewed Assessment and Plan Assessment: Moderate to poorly differentiated pulmonary adenocarcinoma with 13 hilar lymph nodes positive for metastatic carcinoma status post robotic-assisted thoracoscopic left upper lobectomy with mediastinal lymph node dissection Postoperative paroxysmal atrial fibrillation currently sinus bradycardia Acute hypoxemic respiratory failure Left lower lobe atelectasis and mucous plugging with tracheobronchial malacia status post multiple bronchoscopies Insulin dependent diabetes with poor glycemic control, hyperglycemia, A1c 8.8% Hypomagnesemia Current tobacco dependence with cessation prior to previous admission Moderate COPD, preoperative FEV1 54% of predicted, DLCO 36% of predicted Current daily EtOH use Hypertension Hyperlipidemia Stroke in 2016 with right-sided weakness Hepatitis B and C Bipolar depression History of IV heroin use with last use August 2018 Plan: Will plan to continue daily bronchoscopies Ventilator management, steroids per pulmonology, will extubate when able, may need tracheostomy if unable to extubate Continue Mucomyst, bronchodilators, Pulmicort Continue to monitor clinical course off antibiotics Diabetic management per internal medicine, patient needs tighter blood sugar control Continue Amiodarone, IV heparin Medical management of other comorbidities per primary care service, pulmonology Guarded prognosis More recommendations to follow based on patient's progress
[2023-04-09] MEDS: ACETYLCYSTEINE 800 MG/4 ML VIAL INHALATION SCH ×3 (08:39→20:19)
[2023-04-09] MEDS: FORMOTEROL FUMARATE 20 MCG/2 ML NEBU INHALATION SCH ×2 (08:41→20:20)
[2023-04-09] MEDS: IPRATROPIUM-ALBUTEROL 3 ML NEB INHALATION SCH ×4 (08:41→20:20)
[2023-04-09] MEDS: BUDESONIDE 1 MG/2 ML NEBU INHALATION SCH ×2 (08:41→20:20)
[2023-04-09] MEDS ORDERED: CISATRACURIUM 2 MG/ML 5 ML VIAL IV ONE (08:41)
--- NOTE | 2023-04-09 10:16 | P.PN ---
Subjective Progress Note Date: 04/09/23 Principal diagnosis: Shortness of breath. Patient was evaluated today on 04/01/23, a is basically about the same, patient was seen by thoracic surgery and she was told that she will undergo bronchoscopy today. Patient is comfortable, chest x-ray all along has been showing complete opacification of the left lung, hopefully this bronchoscopy would be better than previous bronchoscopy and more beneficial however considering the patient already had 4 bronchoscopies and did not improve her lung condition, I doubt that this will. However this bronchoscopy is being done by thoracic surgery/Dr. June The patient is seen today 04/02/2023 in follow-up on the regular medical floor. She is currently sitting up in a chair. Awake and alert in no acute distress. She is maintaining good O2 saturations in the 90s on 2 L/m per nasal cannula. White count 8.1. Hemoglobin 10.4. Platelets 160. Sodium 135. Potassium 3.8. Bicarb 32. BUN 13. Creatinine 0.7. Glucose 164. Chest x-ray continues to show similar opacification of left lung will occur rectal secondary to atelecta sis and large pleural effusion. No pneumothorax visualized. Enlarging right pleural effusion now small to moderate. She did undergo bronchoscopy yesterday with Dr. June and the plan is to return for another bronchoscopy again today. She is continued on DuoNeb inhalations, Symbicort, Mucinex, Mucomyst, antibiotics in the form of Unasyn. Heparin for DVT prophylaxis. The patient is seen today 04/03/2023 in follow-up on the regular medical floor. She is currently sitting up in a chair at the bedside. Awake and alert in no acute distress. She is maintaining good O2 saturations in the 90s on 2 L/m per nasal cannula. Blood cultures reveal no growth. White count 6.8. Hemoglobin 11.7. Platelets 127. Sodium 136. Potassium 4.1. Bicarb 32. BUN 12. Creatinine 0.8. Glucose 149. Remains on antibiotics in the form of Unasyn. Continued on bronchodilators, Mucomyst, Mucinex. Continued on IV diuretics. Heparin for DVT prophylaxis. The patient is seen today 04/04/2023 in follow-up on the regular medical floor. She did utilize BiPAP through the night 10/5 and 30% FiO2. Otherwise utilizing oxygen at 3 L/m per nasal cannula. She did undergo another bronchoscopy with BAL per CT services today. Chest x-ray continues to show near complete white out of the left hemithorax. Small portion left upper lung mass remains aerated now. Ongoing small to moderate right effusion with adjacent atelectasis. She is encouraged regarding increased use the incentive spirometer. Increase activity as tolerated. Remains on antibiotics in the form of Unasyn. Remains on Symbicort, DuoNeb inhalations, Solu-Medrol, Mucinex and Mucomyst. Heparin for DVT prophylaxis. Remains on IV diuretics. Sodium 135. Potassium 4.6. Bicarb 31. BUN 13. Creatinine 0.55. Glucose 154. ProBNP 2910. Progress note dated 04/05/2023. 57-year-old female with a previous recent history of left upper lobectomy for lung cancer. The patient has been in and out of the hospital multiple times, is required multiple bronchoscopies, for left lung collapse. Currently, the patient is seen today in room 364. She is on 4 L of oxygen. She's getting saline at 10 mL an hour. Her most recent chest x-ray shows partial left lung collapse. Current labs include a sodium 136, potassium 3.9, chlorides 96, CO2 31, BUN 15, creatinine 0.56. Glucose is 198. Calcium is 8.2. Chest x-ray shows postsurgical volume loss, left hemithorax, with slight improvement overall. Progress note dated 04/06/2023. 57-year-old female, who is seen today in room 263. The patient was previously room 364. She underwent bronchoscopy today, with Dr. June, and came back, to the intensive care unit, on the mechanical ventilator. She's getting saline at 125 mL an hour. She is on propofol at 45 mcg/kg/m. Her ventilator settings include the volume assist control, rate 20, tidal volume 350, FiO2 50%, and PEEP of 5. I've asked the nurse, to have respiratory bump up the PEEP from 5 to 8 cm water, and increase the FiO2 up to 60%. Blood gases, on the previous setting show pO2 of 58, pCO2 54, and a pH is 7.41. That was on 50% FiO2, and 5 of PEEP. Additional labs include a white count of 7.1, hemoglobin 10.7, hematocrit 32.3, and a normal platelet count. Sodium 135, potassium 3.8, chlorides 96, CO2 31, BUN 20, creatinine 0.59. Progress note dated 04/07/2023. 57 year old female seen today in room 263. The patient had bronchoscopy done yesterday, by Dr. June. She came back to the intensive care unit, on the mechanical ventilator. This morning, I do another bronchoscopy on the patient, and remove thick mucus and secretions from the left lung area. Currently, the patient remains on the volume assist control, rate 20, tidal volume 350, FiO2 60%, and PEEP of 8. Blood gases show pO2 73, pCO2 of 52, and a pH is 7.43. The patient is currently on saline at 75 mL an hour, and propofol at 35 mcg/kg/m. In addition, the patient is on insulin at 2.05 units an hour. Prior to the bronchoscopy, the patient did receive paralytic common form of Nimbex, 15 mg. The patient will stay on the ventilator overnight, and have another bronchoscopy tomorrow, and one again on Wednesday. Current labs included a white count 7.5, hemoglobin 12, hematocrit 36.7, platelet count 148,000. Sodium 138, potassium 3.9, chlorides 98, CO2 32, BUN 21, creatinine 0.58. Albumin is 2.7. Chest x-ray shows volume loss in the left lung, infiltrate in the right lung, and an effusion on the left side. Progress note dated 04/08/2023. The patient is seen today in room 263. The patient had to procedure today, including a left-sided thoracentesis, were biceps 56 fluid was removed. Also, the patient had a repeat bronchoscopy. Currently, the patient remains on mechanical ventilator, with settings of volume assist control, rate 20, tidal volume 350, FiO2 60%, PEEP of 10. Blood gases done on the same settings, but instead, 5 of PEEP, show pO2 of 54, pCO2 60, pH is 7.37. The patient's on propofol, at 50 mcg/kg/m, saline at 75 mL an hour, and heparin, which was discontinued briefly, for the thoracentesis. She is also on vital high protein, at 10 mL an hour. White count is 8.5, hemoglobin 11.1, hematocrit 35, and platelet count is normal. Sodium 141, potassium 3.9, chlorides 99, CO2 31, BUN 25, creatinine 0.69. Glucose 267. Calcium 7.9, and magnesium is 2. Chest x- rays are reviewed. Progress note dated 04/09/2023. 57-year-old female seen again in the intensive care unit, room 263. The patient will have another bronchoscopy today. Yesterday, she had bronchoscopy, and left thoracentesis. I did speak to Dr. June about her. She remains on the ventilator. Ventilator settings include the volume assist control, rate 20, tidal volume 350, FiO2 70%, and PEEP of 10. Blood gases, on the same settings, but 60%, she'll pO2 of 56, pCO2 64, pH is 7.40. The patient remains on propofol at 45 mcg/kg/m, and heparin via weightbase protocol. The patient's getting saline at 20 mL an hour, and vital high protein at 29 mL an hour, which is goal. Her chest x-ray today shows evidence of recurrent left-sided effusion. White count 7.2, heme him 10.6, hematocrit 33.3, with a normal platelet count. Sodium 139, potassium 3.7, chlorides 97, CO2 33, BUN 23, and creatinine 0.69. Albumin is 2.7. Objective - Vital Signs Vital signs: Vital Signs Temp 98.2 F 04/09/23 08:00 Pulse 56 L 04/09/23 09:04 Resp 28 H 04/09/23 08:00 BP 136/66 04/09/23 08:00 Pulse Ox 95 04/09/23 08:00 FiO2 80 04/09/23 09:18 Intake & Output 04/08/23 04/09/23 04/09/23 18:59 06:59 18:59 Intake Total 057.234 6188.783 217.616 Output Total 1100 975 225 Balance -253.563 165.783 -7.384 Weight 98.2 kg 99.2 kg 99.2 kg Intake: IV 515 260 20 Sodium Chloride 0.9% 1, 515 260 20 000 ml @ 20 mls/hr IV . Q24H COUNT INCLUDES THE [facility] Rx#:[id number] Intake, IV Titration 186.437 413.783 168.616 Amount Heparin Sod,Pork in 0.45% 216.833 NaCl 25,000 unit In 0.45 % NaCl 1 250ml.bag @ 10. 07 UNITS/KG/HR 10 mls/hr IV .Q24H COUNT INCLUDES THE [facility] Rx#: [id number] Magnesium Sulfate-D5w Pmx 100 1 gm In Dextrose/Water 1 100ml.bag @ 100 mls/hr IVPB ONCE ONE Rx#: [id number] propofoL 1,000 mg In 186.437 196.95 68.616 Empty Bag 1 bag @ 15 MCG/ KG/MIN 8.577 mls/hr IV . [id number] COUNT INCLUDES THE [facility] Rx#:[id number] Tube Feeding 145 377 29 Other 90 Output: Urine 1100 975 225 Other: Voiding Method Indwelling Catheter Indwelling Catheter Indwelling Catheter - Exam No acute distress, sedated, with an orally placed endotracheal tube, and NG tube. HEENT examination is grossly unremarkable. Neck supple. Full range of motion. No adenopathy thyromegaly or neck vein distention. Cardiovascular examination reveals regular rhythm rate. S1-S2 normal. No S3 or S4. No discernible murmur noted. Heart rate is 56 bpm. Lungs reveal diminished breath sounds on the left. Mild scattered rhonchi are noted. No wheezes or crackles. Right lung is clear. Abdomen soft bowel sounds are heard. No masses or tenderness. Extremities are intact. No cyanosis clubbing or edema. Skin is without rash or lesion. Neurologic examination cannot be currently assessed. - Labs CBC & Chem 7: 04/09/23 04:31 04/09/23 04:31 Labs: Abnormal Lab Results - Last 24 Hours (Table) 04/08/23 04/08/23 04/08/23 Range/Units 09:00 10:57 11:14 RBC (3.80-5.40) m/uL Hgb (11.4-16.0) gm/dL Hct (34.0-46.0) % APTT (22.0-30.0) sec ABG pCO2 (35-45) mmHg ABG pO2 (83-108) mmHg ABG HCO3 (21-25) mmol/L ABG Total CO2 (19-24) mmol/L ABG O2 Saturation (94-97) % Chloride (98-107) mmol/L Carbon Dioxide (22-30) mmol/L BUN (7-17) mg/dL Glucose (74-99) mg/dL POC Glucose (mg/dL) 267 H (70-110) mg/dL Calcium (8.4-10.2) mg/dL Total Protein (6.3-8.2) g/dL Albumin (3.5-5.0) g/dL Procalcitonin 0.12 H (0.02-0.09) ng/mL Fluid Appearance Cloudy A (Clear) 04/08/23 04/08/23 04/09/23 Range/Units 14:58 17:53 00:32 RBC (3.80-5.40) m/uL Hgb (11.4-16.0) gm/dL Hct (34.0-46.0) % APTT 47.2 H (22.0-30.0) sec ABG pCO2 (35-45) mmHg ABG pO2 (83-108) mmHg ABG HCO3 (21-25) mmol/L ABG Total CO2 (19-24) mmol/L ABG O2 Saturation (94-97) % Chloride (98-107) mmol/L Carbon Dioxide (22-30) mmol/L BUN (7-17) mg/dL Glucose (74-99) mg/dL POC Glucose (mg/dL) 312 H 213 H (70-110) mg/dL Calcium (8.4-10.2) mg/dL Total Protein (6.3-8.2) g/dL Albumin (3.5-5.0) g/dL Procalcitonin (0.02-0.09) ng/mL Fluid Appearance (Clear) 04/09/23 04/09/23 04/09/23 Range/Units 04:31 04:31 04:31 RBC 3.42 L (3.80-5.40) m/uL Hgb 10.6 L (11.4-16.0) gm/dL Hct 33.3 L (34.0-46.0) % APTT 63.4 H (22.0-30.0) sec ABG pCO2 (35-45) mmHg ABG pO2 (83-108) mmHg ABG HCO3 (21-25) mmol/L ABG Total CO2 (19-24) mmol/L ABG O2 Saturation (94-97) % Chloride 97 L (98-107) mmol/L Carbon Dioxide 33 H (22-30) mmol/L BUN 23 H (7-17) mg/dL Glucose 169 H (74-99) mg/dL POC Glucose (mg/dL) (70-110) mg/dL Calcium 7.7 L (8.4-10.2) mg/dL Total Protein 5.8 L (6.3-8.2) g/dL Albumin 2.7 L (3.5-5.0) g/dL Procalcitonin (0.02-0.09) ng/mL Fluid Appearance (Clear) 04/09/23 04/09/23 Range/Units 06:07 06:13 RBC (3.80-5.40) m/uL Hgb (11.4-16.0) gm/dL Hct (34.0-46.0) % APTT (22.0-30.0) sec ABG pCO2 64 H (35-45) mmHg ABG pO2 56 L* (83-108) mmHg ABG HCO3 39 H (21-25) mmol/L ABG Total CO2 41 H (19-24) mmol/L ABG O2 Saturation 89.8 L (94-97) % Chloride (98-107) mmol/L Carbon Dioxide (22-30) mmol/L BUN (7-17) mg/dL Glucose (74-99) mg/dL POC Glucose (mg/dL) 226 H (70-110) mg/dL Calcium (8.4-10.2) mg/dL Total Protein (6.3-8.2) g/dL Albumin (3.5-5.0) g/dL Procalcitonin (0.02-0.09) ng/mL Fluid Appearance (Clear) Microbiology - Last 24 Hours (Table) 04/08/23 09:00 Gram Stain - Preliminary Pleural Fluid Body Fluid Culture - Preliminary Assessment and Plan Assessment: Status post bronchoscopy, with suctioning of airway secretions, currently requiring intubation, and mechanical ventilation, 04/06/2023 and 04/07/2023, 04/08/2023, 04/09/2023 and left-sided thoracentesis on 04/08/2023. Left lung collapse, essentially the left lower lobe secondary to mucous plugs. Bronchoscopy was done during the earlier hospitalization the patient was found to have mucous plugs, significant tracheobronchomalacia, narrowing of the left lower lobe bronchial orifice. Currently on Unasyn. Plan is for daily bronchoscopy per CT services and placed on BiPAP 04/03/2023. Acute on chronic shortness of breath without any worsening in her hypoxemia. The patient's shortness of breath is multifactorial. Obviously she has undergone a left upper lobe resection. She has also complete atelectasis of left lower lobe and several attempts to reexpand the lung on the left has failed as the patient has significant tracheal bronchomalacia, mucus, Haemophilus influenza pneumonia and narrowing of the left lower lobe orifice as noted on several bronchoscopies. The left lung remains unchanged. The acute decompensation could be related to A. fib which is paroxysmal and the patient may have some interval worsening in her volume status. As such, the patient was hospitalized. ProBNP level is elevated. Remains on IV diuretics. Persistent left lower lobe atelectasis. Computed tomography scan of the chest 03/30/2023 revealed increased consolidation and collapse of the left lower lobe with essentially no residual aerated lung seen. Small to moderate size left pleural effusion however pneumothorax component of this has essentially resolved. Small mucous secretions along the tracheal wall and thoracic inlet. Right hilar adenopathy likely present on prior unenhanced study and suspected unchanged. Moderate right pleural effusions. Previous right upper lobe groundglass infiltrates have resolved. Pulmonary adenocarcinoma with a 1.5 cm mass in the left upper lobe. On 03/15/2023 she had undergone a robotically assisted thoracoscopic left upper lobectomy with mediastinal lymph node dissection, for early stage NSCLC. The final pathologic staging is T1b N1 M0 disease. Acute hypoxic respiratory failure currently on 4 L of oxygen nasal cannula. Tracheobronchomalacia, severe. Paroxysmal atrial fibrillation. History of chronic obstructive pulmonary disease. Chronic tobacco dependence. History of CVA. History of diabetes mellitus. History of hypertension. History of hyperlipidemia. History of alcohol abuse and heroin abuse. History of hepatitis B and C. Plan: Plan dated 04/05/2023. The patient was seen and evaluated. The patient is currently on 4 L of oxygen. Saturations are 96%. The patient is receiving saline at 10 mL an hour. Labs, and x-rays are evaluated. Chest x-ray is about the same, or mildly improved. W e will continue to follow make recommendations along the way. The patient will continue on bronchodilators, and BiPAP, as tolerated. The patient should also do incentive spirometer, every hour while awake, and be encouraged to deep breathe, cough, and clear secretions. We will continue to follow make recommendations where appropriate. Prognosis is guarded. Plan dated 04/06/2023. The patient returned back to the intensive care unit, on the mechanical ventilator. Ventilator changes have been made. Gases have been evaluated. The patient is currently on propofol for sedation, at 45 mcg/kg/m. The patient's on saline at 125 mL an hour. Morning labs, x-rays, and blood gases will be done. Cardiothoracic surgery may wish to do bronchoscopy on this patient again tomorrow, and it will be easily facilitated, while the patient is on chemical ventilation. Additional recommendations and suggestions are forthcoming. Labs, x-rays, and medications are reviewed. Plan dated 04/07/2023. The patient had bronchoscopy today, in the intensive care unit, room 263. She was placed on a 100% oxygen. She received some Nimbex before the procedure. I think secretions from the left mainstem bronchus, and the left lower lobe bronchi. The patient tolerated the procedure well. The plan is to keep her on the ventilator, and Vincent or tomorrow, i.e. , as well as Wednesday. In addition, I will check an ultrasound of the left chest, consider thoracentesis, depending on whether or not there is enough fluid, to do the procedure safely. Labs, x-rays, and medications are reviewed. The patient remains on the ventilator. He is on propofol at 35 mcg/kg/m, and insulin at 2.05 units an hour. She's getting saline at 75 mL an hour. We will start tube feedings today. Additional recommendations and suggestions are forthcoming. Prognosis is guarded. Plan dated 04/08/2023. The patient has had bronchoscopy, pretty much every day. I did yesterday and again today. Secretions were suctioned from the left lung. In addition, the patient had a left-sided thoracentesis today was 750 mL of fluid removed. The fluid was sent to laboratory for analysis. The patient tolerated the procedure well. The left lung does not fully expanded. The chest x-ray, though in my opinion, looks improved. We will continue to follow make recommendations along the way. Labs, x-rays, medications are reviewed. Gnosis is guarded. The patient continues on propofol, heparin, and tube feedings. The patient's also receiving saline at 75 mL an hour. Plan dated 04/09/2023. The patient will have another bronchoscopy today. Hopefully, the patient can be extubated this weekend. Cardiothoracic surgery is considering the possibility of placing a left-sided chest tube. Labs, x-rays, medications are reviewed. The patient had a left-sided thoracentesis yesterday, and 750 mL of fluid was removed. We will continue to follow the patient, make recommendations along the way. Prognosis is certainly guarded. The patient continues on appropriate medications including heparin, propofol, and tube feedings. Time with Patient: Greater than 30
[2023-04-09] MEDS: SODIUM CHLORIDE 0.9% 1,000 ML IV SCH (10:36)
--- NOTE | 2023-04-09 11:38 | PCN ---
PROCEDURE NOTE PROCEDURES PERFORMED: Bronchoscopy airway examination, therapeutic lavage, BAL. PREOPERATIVE DIAGNOSIS: Left lung collapse. POSTOPERATIVE DIAGNOSES: Left lung collapse, mucus plugging, pneumonia. CONTINUOUS LOFT OPERATOR: First human resources office assistant was Dr. Nataly Barba. DESCRIPTION OF PROCEDURE: The patient's procedure was done in the ICU, room 263. The patient was on 100% oxygen, 10 of PEEP on the ventilator. She received Nimbex 10 mg prior to the procedure. The bronchoscope was inserted through the bronchoscope adapter connected to the endotracheal tube. The bronchoscope was pushed through the endotracheal tube out into the trachea. The trachea itself appeared normal. There was mucus noted over the top of the tracheal nickie. The right lung was evaluated first. The right upper lobe and its 3 segments, right middle lobe and its 2 segments, right lower lobe and its 5 segments, had similar findings of diffuse bronchitis, and mucus plugging. The secretions were suctioned with the aid of saline lavage. There was no dominant mass or tumor. There was no bleeding. On the left side, there was no left upper lobe as the patient had a previous left upper lobectomy. In the left lower lobe, there were mucus plugs, they were also suctioned with the aid of saline lavage. The patient tolerated the procedure well. The bronchoscope was withdrawn. There was no immediate complication. MMODL / IJN: [id number] /
[2023-04-09 12:00] LABS: Glucose,Whole Blood 246 mg/dL (70-110)
--- NOTE | 2023-04-09 12:20 | XR ---
EXAMINATION TYPE: XR chest 1V portable DATE OF EXAM: 04/09/2023 Comparison: 04/08/2023 Clinical History: 57-year-old female trapped lung Findings: Diffuse interstitial changes continue to progress within the right lung. Increasing moderate left and increasing small right pleural effusions. Left basilar pneumothorax not well seen. A pleural edge is still noted at the medial left upper lung. ET tube satisfactory. NG tube courses below the diaphragm . Impression: 1. Postsurgical change on the left with ongoing left hydropneumothorax. There is progressive filling of the left basilar pleural cavity with now a moderate effusion. A pleural edge remains at the medial left upper lung as well. 2. Worsening interstitial changes throughout the right lung, now fairly severe. Slight worsening smal l right pleural effusion.
[2023-04-09 17:16] LABS: Glucose,Whole Blood 294 mg/dL (70-110)
[2023-04-09 23:32] LABS: Glucose,Whole Blood 232 mg/dL (70-110)
[2023-04-10 01:59] LABS: Glucose,Whole Blood 179 mg/dL (70-110)
[2023-04-10] MEDS: HEPARIN SOD,PORK IN 0.45% NACL 25,000 UNIT in 0.45% NACL 1 250ML.BAG IV SCH (05:04)
--- NOTE | 2023-04-10 05:37 | P.PN ---
Subjective Progress Note Date: 04/09/23 Patient is a 57-year-old female with a past medical history of hypertension, hyperlipidemia, diabetes type 2, history of CVA/TIA with right-sided weakness, recent history of lung cancer, left upper lobectomy in February 2023, bipolar/depression and currently everyday smoker presents to ER with complaints of difficulty in breathing and chest pain. Patient was recently discharged from the hospital on 03/27/2023. Does have a history of non-small cell lung cancer underwent left upper lobectomy complicated by persistent left lower lobe atelectasis requiring multiple bronchoscopies during recent hospitalization. Valve cultures from 07/22/2022 showed haemophilus influenza. Patient was discharged home on Augmentin. On admission chest x-ray showed similar opacification of the left lung likely secondary to atelectasis and large pleural effusion. No pneumothorax visualized. Small right effusion. EKG showed atrial fibrillation with rapid ventricular response with heart rate 117. Patient is currently not on any anticoagulation. Continued on amiodarone. Laboratory data showed WBC 7.7 hemoglobin 11.9 and platelets 186 ABG showed pH 7.41 pCO2 49 and pO2 105 Sodium 136 potassium 4.5 chloride 99 bicarb is 30 BUN 12 and creatinine 0.47 blood sugar 257 and lactic acid 1.7 and calcium 7.9 ESR not elevated. Troponin x 1 negative and proBNP 3090. Influenza A, B, RSV and COVID-19 PCR not detected. Lung resection on 03/15/2023 with final pathology showing moderate to poorly differentiated pulmonary adenocarcinoma. All margins negative for malignancy. 1 of 3 hilar lymph nodes positive for metastatic carcinoma. 03/30/2023 Patient is seen in follow up today with pulmonary following as well as cardiology and adjustments to medications being done. Home medications reviewed and resumed. CT surgery consulted and discussing with surgery about complete lobectomy of the left. Patient continues with pleural effusions noted and has been started on IV lasix 20mg bid and will continue. Labs reviewed and within normal limits. Will follow up on repeat labs and monitor electrolytes and kidney functions closely. Patient is currently afebrile and denies worsening shortness of breath. Patient is continued on 4L and was sent home on this previously last week. Blood sugars elevated and will continue accuchecks achs and adjust medications accordingly. 03/31/2023 Patient seen and evaluated in follow-up today with pulmonary along with cardiothoracic surgery following. Discussing further about possible complete lobectomy of the left with cardiothoracic. Patient per nursing staff is lethargic and has been receiving scheduled Xanax along with Neurontin and pain medications and will decrease the dose of Xanax admitted as needed as well as decreasing the dose of Neurontin. Patient encouraged to increase activity as tolerated and get up more frequently out of the bed and sit up in the chair and work with physical therapy daily. Blood sugars remained elevated and will adjust and make long acting twice daily and continue with sliding scale. Patient continues on 2-3 L via nasal cannula and weaning FiO2 as tolerated. Patient is currently afebrile denies chest pain or palpitations and denies worsening shortness of breath. Patient continues to use incentive spirometer and needs encouragement to do so. Patient is receiving breathing inhalational treatments as well. 04/01/2023 Patient is seen in follow-up today scheduled to undergo bronchoscopy with pulmonary and cardiothoracic surgery following closely. Chest x-ray ordered for post bronchoscopy which is pending. Patient's blood sugars slightly improved and have added long-acting twice daily along with sliding scale. Encouraged increase activity as tolerated. Patient to be evaluated by physical therapy and would recommend daily. Patient also with incentive spirometer at the bedside encouraged to use at least 10 times every hour while awake. Patient reports not feeling she is having worsening shortness of breath although continues to have shortness of breath. 04/02/2023 Patient seen in follow-up this morning currently nothing by mouth and scheduled to undergo repeat bronchoscopy as follow-up chest x-ray showed near complete opacification on the left as well status post bronchoscopy yesterday. Patient is lethargic but arousable and will adjust the medications again and will discontinue Xanax. Patient worked with physical therapy this patient is significantly weak and has had multiple prolonged hospitalizations would likely be going to [facility] on discharge. Will await clearance from CT surgery pulmonary to discuss discharge planning. Patient is afebrile with no reports of worsening shortness of breath. Patient tolerating diet although given patient's lethargy will recommend aspiration precautions. 04/03/2023 Patient is evaluated today sitting up in the chair, currently wearing BiPAP. Patient underwent bronchoscopy today with Dr. Oshea pending surgical report. Chest xray reveals extensive pleural parenchymal opacity left hemithorax some interval improvement of the aeration of the left lung. Worsening small - to moderate right pleural effusion with adjacent atelectasis and or consolidation. Patient continues on IV lasix 20 mg IV Q12h. Magnesium today 1.5. 04/04/2023 Patient evaluated today sitting up in the chair. Currently on nasal cannula wanting to try and eat breakfast. She is tachypneic using accessory muscles to take a deep breath. She has minimal aeration over the left lung with chest xray today showing near complete white out of the left hemithorax, aeration worsening from yesterday. A small portion of the left upper lung remains aerated now. Ongoing small to moderate left pleural effusion adjacent atelectasis and or consolidation. Patient underwent bronchoscopy again this morning due to the mucus plugging of the left mainstem bronchus. Patient had thick yellow sputum s uctioned from the left main bronchus. Continues on IV lasix 20 mg Q12h, and additionally, has been started on IV steroids toda by pulmonary team. proBNP 2910. Sodium 135, potassium 4.6, BUN 13, creatinine 0.55, magnesium 1.8, glucose 228. 04/05/2023 Patient is seen in follow-up today currently awaiting to undergo bronchoscopy again with cardiothoracic surgery on 04/06/2023. Chest x-ray continues to show near complete opacification on the left. Patient continues with ongoing bilateral pleural effusions and is maintained on IV Lasix. Patient started on IV steroids with pulmonary following closely and blood sugars are completely uncontrolled in the 500s. Will initiate insulin drip and continue with protocol and Accu-Cheks every hour and tighter glycemic control. Patient will be nothing by mouth at midnight again for bronchoscopy and will await report. Will discuss further with CT surgery regarding overall treatment plan. Patient with significant weakness recommend physical therapy daily. Patient needs Encouraged increased activity as tolerated as patient has been mostly sitting and sleeping throughout most of hospitalization. 04/06/2023 Patient is seen in follow-up today currently sitting up in the chair awaiting to undergo repeat bronchoscopy with CT surgery today. Patient continues on 4-5 L via nasal cannula reporting continued shortness of breath. Patient's blood sugars are more controlled and patient is maintained on insulin drip and was currently nothing by mouth for the procedure. Will await surgical report and continue insulin drip for now with close monitoring to monitor for any episodes of hypoglycemia. Patient is afebrile denies chest pain or palpitations. 04/07/2023 Patient is seen and evaluated in follow-up currently in the ICU as of yesterday post bronchoscopy this patient had some increased respiratory distress requiring mechanical ventilation and is currently maintained on FiO2 of 60% with a PEEP of 8. Plan is for repeat bronchoscopy today with pulmonary and tentatively scheduled for repeat bronchoscopies on and Wednesday. Patient remains on insulin drip and blood sugars are more controlled and patient is being started on tube feedings and will adjust the medications and continue sliding scale and add long-acting if needed. Patient is a poorly controlled diabetic with hyperglycemia. Patient is currently afebrile showing A. fib on the monitor. Patient does have history of atrial fibrillation and cardiology has been consulted. Prognosis remains extremely guarded at this time. 04/08/2023 Patient is seen in follow-up today remains in the ICU on mechanical ventilation. Follow-up chest x-ray continues to show complete opacification medication on the left and scheduled for bronchoscopy again today. Patient to also undergo left side thoracentesis. Patient is afebrile and current settings on the vent are FI02 of 60% and peep is 10. Patient prognosis is extremely guarded. 04/09/2023 Patient seen and evaluated in follow-up continues to be in the ICU mechanical ventilation. FiO2 is 100% and PEEP has been increased to 10. Plan is for repeat bronchoscopy with pulmonary chuck wagon driver today. Patient has been having daily bronchoscopies for continued mucus plugging. Patient's chest x-rays continue to show left hemithorax and complete opacification. Patient is currently afebrile. Patient maintained on tube feeds and recommend monitoring residuals. Per nursing staff there were some residual noted and patient reported not to have a bowel movement in the last few days. Continue bowel regimen and monitoring of residuals with aspiration precautions. Overall prognosis remains extremely guarded at this time. Blood sugars are becoming slightly more elevated and have added long-acting twice daily and will adjust accordingly. Review of systems: Unable to assess as patient is on mechanical ventilation and sedated Active Medications Acetaminophen (Acetaminophen Tab 325 Mg Tab) 650 mg PO Q4HR PRN PRN Reason: Mild Pain or Fever > 100.5 Last Admin: 04/06/23 08:46 Dose: 650 mg Hydrocodone Bitart/Acetaminophen (Hydrocodone/Apap 5-325mg 1 Each Tab) 1 each PO Q6HR PRN PRN Reason: Pain Last Admin: 04/09/23 07:56 Dose: 1 each Acetylcysteine (Acetylcysteine 800 Mg/4 Ml Vial) 200 mg INHALATION RT-TID [facility] Last Admin: 04/09/23 20:19 Dose: 200 mg Albuterol/Ipratropium (Ipratropium-Albuterol 3 Ml Neb) 3 ml INHALATION RT-QID [facility] Last Admin: 04/09/23 20:20 Dose: 3 ml Albuterol/Ipratropium (Ipratropium-Albuterol 3 Ml Neb) 3 ml INHALATION RT-Q2H PRN PRN Reason: Shortness Of Breath Or Wheezing Last Admin: 04/08/23 04:45 Dose: 3 ml Amiodarone HCl (Amiodarone 200 Mg Tab) 200 mg PO BID [facility] Last Admin: 04/09/23 19:49 Dose: 200 mg Atorvastatin Calcium (Atorvastatin 10 Mg Tab) 10 mg PO DAILY [facility] Last Admin: 04/09/23 07:56 Dose: 10 mg Budesonide (Budesonide 1 Mg/2 Ml Nebu) 1 mg INHALATION RT-BID [facility] Last Admin: 04/09/23 20:20 Dose: 1 mg Chlorhexidine Gluconate (Chlorhexidine Gluconate 15 Ml Cup) 15 ml MUCOUS MEM BID [facility] Last Admin: 04/09/23 19:50 Dose: 15 ml Dextrose/Water (Dextrose 50% Syringe 50 Ml) 50 ml IVP PER PROTOCOL PRN; Protocol PRN Reason: Hypoglycemia Docusate Sodium (Docusate 100 Mg Cap) 100 mg PO DAILY PRN PRN Reason: Constipation Last Admin: 04/01/23 23:37 Dose: 100 mg Folic Acid (Folic Acid 1 Mg Tab) 1 mg PO DAILY [facility] Last Admin: 04/09/23 07:56 Dose: 1 mg Formoterol Fumarate (Formoterol Fumarate 20 Mcg/2 Ml Nebu) 20 mcg INHALATION RT-BID [facility] Last Admin: 04/09/23 20:20 Dose: 20 mcg Furosemide (Furosemide 10 Mg/Ml 2 Ml Vial) 20 mg IV Q8H [facility] Last Admin: 04/09/23 23:35 Dose: 20 mg Gabapentin (Gabapentin 400 Mg Cap) 400 mg PO TID [facility] Last Admin: 04/09/23 19:49 Dose: 400 mg Guaifenesin (Guaifenesin 600 Mg Tablet.Er) 1,200 mg PO Q12HR [facility] Last Admin: 04/09/23 19:49 Dose: 1,200 mg Heparin Sodium (Porcine) (Heparin Sodium 1,000 Un/Ml (10ml Vl)) 0 unit IV PER PROTOCOL PRN; Protocol PRN Reason: Low PTT Propofol 1,000 mg/ IV Solution 100 mls @ 8.577 mls/hr IV .[id number] [facility]; Protocol Last Admin: 04/10/23 05:04 Dose: 50 mcg/kg/min, 28.59 mls/hr Sodium Chloride (Saline 0.9%) 1,000 mls @ 20 mls/hr IV .Q24H [facility] Last Admin: 04/09/23 10:36 Dose: Not Given Heparin Sodium/Sodium Chloride (25,000 unit/ Sodium Chloride) 250 mls @ 10 mls/hr IV .Q24H [facility]; Protocol Last Admin: 04/10/23 05:04 Dose: 10.07 units/kg/hr, 10 mls/hr Insulin Aspart (Insulin Aspart (Novolog) 100 Unit/Ml Vial) 0 unit SQ Q6HR [facility]; Protocol Last Admin: 04/09/23 23:35 Dose: 4 unit Insulin Detemir (Insulin Detemir (Levemir) 100 Unit/Ml Syr) 5 unit SQ BID@0700,2100 [facility] Last Admin: 04/09/23 20:18 Dose: 5 unit Methylprednisolone Sodium Succinate (Methylprednisolone Sod Succi 40 Mg/Ml 1 Ml Vial) 30 mg IV DAILY [facility] Miscellaneous Information (Magnesium Replacement Protocol 1 Each Misc) 1 each MISCELLANE DAILY PRN; Protocol PRN Reason: Per Protocol Miscellaneous Information (Potassium Replacement Protocol 1 Each Misc) 1 each MISCELLANE DAILY PRN; Protocol PRN Reason: Per Protocol Naloxone HCl (Naloxone 0.4 Mg/Ml 1 Ml Vial) 0.2 mg IVP Q2M PRN PRN Reason: Opioid Reversal Pantoprazole Sodium (Pantoprazole 40 Mg Tablet) 40 mg PO DAILY [facility] Last Admin: 04/09/23 07:56 Dose: 40 mg Polyethylene Glycol (Polyethylene Glycol 3350 17 Gm Powd.Pack) 17 gm PO HS PRN PRN Reason: Constipation Senna (Sennosides 8.6 Mg Tab) 8.6 mg PO BID [facility] Last Admin: 04/09/23 19:49 Dose: 8.6 mg Thiamine HCl (Thiamine 100 Mg Tab) 100 mg PO DAILY [facility] Last Admin: 04/09/23 07:56 Dose: 100 mg PHYSICAL EXAMINATION: Patient is a 57-year-old female was currently on mechanical ventilation and intubated and sedated Well-developed, well-nourished. Elderly-appearing. obese HEENT: Normocephalic. Neck is supple. Pupils reactive. Nostrils clear. Oral cavity is moist. Neck reveals no JVD, carotid bruits, or thyromegaly. CHEST EXAMINATION: Trachea is central. Symmetrical expansion . Left basilar diminished sounds. No wheezing or rhonchi. CARDIAC: S1, S2 muffled, irregular ABDOMEN: Soft. Bowel sounds present. Nontender. No organomegaly. No abdominal bruits. Extremities: Lower extremity trace edema. No clubbing or cyanosis Neurologically sedated on mechanical ventilation at this time Skin: No rash or skin lesions. Musculoskeletal: No joint swelling or deformity. Assessment: Worsening shortness of breath secondary to persistent left lower lobe atelectasis/collapse despite multiple bronchoscopies during recent admission and Pleural effusion. Patient is status post 4 bronchoscopies this admission and underwent bronchoscopy repeat 04/04/23 with suctioning of thick yellow secretions. Patient underwent bronchoscopy yesterday with multiple mucous plugs and secretions removed and had some respiratory difficulty post bronchoscopy requiring mechanical ventilation. FiO2 is 100% with a PEEP of 10 and will remain on mechanical ventilation as there are plans for repeat bronchoscopies today. Pulmonary chuck wagon driver and CT surgery following closely with plans of th oracentesis today as well. Haemophilus influenza pneumonia. Recent BAL culture showed haemophilus. Paroxysmal atrial fibrillation with rapid ventricular rate. Patient has new onset A-fib on 03/21/2023. Continued on amiodarone. Not on anticoagulation. Patient in uncontrolled rate and cardiology following and making adjustments to medications Pulmonary adenocarcinoma with recent left upper lobe resection on 03/15/2023 Acute on chronic hypoxic respiratory failure requiring 3-4 L oxygen via nasal cannula on admission. Patient was at 2 L during recent discharge. Severe tracheal bronchomalacia COPD History of CVA with right-sided weakness Diabetes type 2, uncontrolled with hyperglycemia Hypertension Hyperlipidemia History of hepatitis B&C History of alcohol abuse and hides abuse Anxiety/depression and PTSD/bipolar. Currently everyday smoker, reports to quitting on last admission obesity with a bmi of 36.4 GI and DVT prophylaxis Full code Plan: Patient had repeat bronchoscopy yesterday experiencing some increased and respiratory demands and some respiratory distress requiring mechanical ventilation and is currently in the ICU with multiple medical consultations following. FiO2 is currently 100% and PEEP increased at 10. Patient will remain on mechanical ventilation for now as patient is scheduled to undergo repeat bronchoscopies today as well as possible thoracentesis on the left. Blood sugars continue to be elevated and is currently also on IV steroids and will continue sliding scale and have added long-acting twice daily and will adjust accordingly Patient to continue on telemetry monitoring for afib and cardiology following and adjusting medications. Patient is not currently on any anticoagulation Follow-up on repeat labs and repeat chest x-ray in the a.m. Continue tube feeds and monitoring for residuals with aspiration precautions and head of the bed elevated 30-45 at all times. Continue bowel regimen Due to multiple complex medical issues, overall prognosis is extremely guarded at this time The impression and plan of care has been dictated by Rahel Crabtree, Nurse Practitioner as directed. Dr. John MD I have performed a history and examination and MDM of this patient, discussed the same with the dictator, and agree with the dictator's assessment and plan as written ,documented as a scribe. Based on total visit time, I have performed more than 50% of the visit. Objective - Vital Signs Vital signs: Vital Signs Temp 98.6 F 04/10/23 04:00 Pulse 51 L 04/10/23 05:00 Resp 26 H 04/10/23 05:00 BP 148/66 04/10/23 05:00 Pulse Ox 100 04/10/23 05:00 FiO2 80 04/10/23 04:00 Intake & Output 04/09/23 04/09/23 04/10/23 06:59 18:59 06:59 Intake Total 1666.786 4770.616 942.756 Output Total 975 1275 1480 Balance 165.783 281.616 -537.244 Weight 99.2 kg 99.2 kg Intake: IV 260 240 200 Sodium Chloride 0.9% 1, 260 240 200 000 ml @ 20 mls/hr IV . Q24H [facility] Rx#:[id number] Intake, IV Titration 413.783 968.616 566.756 Amount Heparin Sod,Pork in 0.45% 216.833 230 NaCl 25,000 unit In 0.45 % NaCl 1 250ml.bag @ 10. 07 UNITS/KG/HR 10 mls/hr IV .Q24H [facility] Rx#: [id number] Magnesium Sulfate-D5w Pmx 700 1 gm In Dextrose/Water 1 100ml.bag @ 100 mls/hr IVPB ONCE ONE Rx#: [id number] propofoL 1,000 mg In 196.95 268.616 336.756 Empty Bag 1 bag @ 15 MCG/ KG/MIN 8.577 mls/hr IV . [id number] [facility] Rx#:[id number] Tube Feeding 377 348 116 Other 90 60 Output: Urine 975 1275 1480 Other: Voiding Method Indwelling Catheter Indwelling Catheter Indwelling Catheter - Labs CBC & Chem 7: 04/09/23 04:31 04/09/23 04:31 Labs: Abnormal Lab Results - Last 24 Hours (Table) 04/09/23 04/09/23 04/09/23 Range/Units 04:31 04:31 06:07 APTT 63.4 H (22.0-30.0) sec ABG pCO2 (35-45) mmHg ABG pO2 (83-108) mmHg ABG HCO3 (21-25) mmol/L ABG Total CO2 (19-24) mmol/L ABG O2 Saturation (94-97) % Chloride 97 L (98-107) mmol/L Carbon Dioxide 33 H (22-30) mmol/L BUN 23 H (7-17) mg/dL Glucose 169 H (74-99) mg/dL POC Glucose (mg/dL) 226 H (70-110) mg/dL Calcium 7.7 L (8.4-10.2) mg/dL Total Protein 5.8 L (6.3-8.2) g/dL Albumin 2.7 L (3.5-5.0) g/dL 04/09/23 04/09/23 04/09/23 Range/Units 06:13 11:59 17:15 APTT (22.0-30.0) sec ABG pCO2 64 H (35-45) mmHg ABG pO2 56 L* (83-108) mmHg ABG HCO3 39 H (21-25) mmol/L ABG Total CO2 41 H (19-24) mmol/L ABG O2 Saturation 89.8 L (94-97) % Chloride (98-107) mmol/L Carbon Dioxide (22-30) mmol/L BUN (7-17) mg/dL Glucose (74-99) mg/dL POC Glucose (mg/dL) 246 H 294 H (70-110) mg/dL Calcium (8.4-10.2) mg/dL Total Protein (6.3-8.2) g/dL Albumin (3.5-5.0) g/dL 04/09/23 04/10/23 Range/Units 23:30 01:57 APTT (22.0-30.0) sec ABG pCO2 (35-45) mmHg ABG pO2 (83-108) mmHg ABG HCO3 (21-25) mmol/L ABG Total CO2 (19-24) mmol/L ABG O2 Saturation (94-97) % Chloride (98-107) mmol/L Carbon Dioxide (22-30) mmol/L BUN (7-17) mg/dL Glucose (74-99) mg/dL POC Glucose (mg/dL) 232 H 179 H (70-110) mg/dL Calcium (8.4-10.2) mg/dL Total Protein (6.3-8.2) g/dL Albumin (3.5-5.0) g/dL Microbiology - Last 24 Hours (Table) 04/08/23 09:00 Acid Fast Bacilli Smear - Preliminary Pleural Fluid 04/08/23 09:00 Gram Stain - Preliminary Pleural Fluid Body Fluid Culture - Preliminary
[2023-04-10 05:53] LABS: Glucose,Whole Blood 151 mg/dL (70-110)
[2023-04-10] MEDS: INSULIN ASPART (NovoLOG) 100 UNIT/ML VIAL SQ SCH ×3 (05:53→18:42)
[2023-04-10 06:14] LABS: ABG Oxygen Saturation 99.7 % (94-97); ABG PCO2 54 mmHg (35-45); ABG PH 7.49 (7.35-7.45); ABG PO2 177 mmHg (83-108); ABG TCO2 43 mmol/L (19-24); Allen Test Performed? Yes
[2023-04-10 06:18] LABS: ABG HCO3 41 mmol/L (21-25)
[2023-04-10] MEDS: SODIUM CHLORIDE 0.9% 1,000 ML IV SCH (06:34)
[2023-04-10] MEDS: FUROSEMIDE 10 MG/ML 2 ML VIAL IV SCH ×2 (06:47→15:38)
[2023-04-10 06:58] LABS: HCT 35.2 % (34.0-46.0); HGB 11.4 gm/dL (11.4-16.0); Hypochromasia Marked; MCH 31.2 pg (25.0-35.0); MCHC 32.4 g/dL (31.0-37.0); MCV 96.1 fL (80.0-100.0); Mean Platelet Volume 8.5; Platelet Count 160 k/uL (150-450); Poikilocytosis Slight; RBC 3.66 m/uL (3.80-5.40); RDW 13.6 % (11.5-15.5); WBC 8.7 k/uL (3.8-10.6)
[2023-04-10] MEDS: INSULIN DETEMIR (LEVEMIR) 100 UNIT/ML SYR SQ SCH ×2 (06:59→20:52)
--- NOTE | 2023-04-10 07:51 | P.PN ---
Subjective Progress Note Date: 04/10/23 Principal diagnosis: Shortness of breath, rapid atrial fibrillation present on admission, worsening right lung possibly from aspiration. History of moderate to poorly differentiate d pulmonary adenocarcinoma with 13 hilar lymph nodes positive for metastatic carcinoma status post robotic-assisted thoracoscopic left upper lobectomy with mediastinal lymph node dissection, postoperative paroxysmal atrial fibrillation, left lower lobe atelectasis and mucous plugging with tracheobronchial malacia status post bronchoscopy 3, insulin dependent diabetes with poor glycemic control, hypomagnesemia, current tobacco dependence with cessation prior to previous admission, moderate COPD, current daily EtOH use, hypertension, hyperlipidemia, stroke in 2016 with right-sided weakness, hepatitis B and C, bipolar depression, IV heroin use 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 Remains intubated and sedated. Currently sinus bradycardia with heart rate in the 50s, hemodynamically stable. Patient has undergone bronchoscopy daily, extensive thick mucus has been removed each time. During yesterday's bronchoscopy patient became hypoxic requiring increase in FiO2 and PEEP, FiO2 was weaned back down to 80%, PEEP remains 13, oxygen saturation remains at 100%. In addition she had a left-sided thoracentesis with removal of 750 mL fluid which was sent for cytology and culture, luminary Gram stain. CXR reviewed, patient does have underlying trapped left lung with accumulation of pleural fluid and persistent diffuse interstitial opacities throughout the right lung, potentially from aspiration. Ventilator adjustments made by tool and die assembler. Remains off antibiotics, remains afebrile, CBC normal. Currently receiving IV Solu-Medrol which was decreased yesterday. Continues on IV heparin due to paroxysmal atrial fibrillation. Tube feeding infusing, patient did have 250 mL residual last night requiring holding tube feeding for a couple of hours. Objective - Vital Signs Vital signs: Vital Signs Temp 98.6 F 04/10/23 04:00 Pulse 49 L 04/10/23 07:00 Resp 26 H 04/10/23 07:00 BP 140/62 04/10/23 07:00 Pulse Ox 100 04/10/23 07:00 FiO2 80 04/10/23 04:00 Intake & Output 04/09/23 04/10/23 04/10/23 18:59 06:59 18:59 Intake Total 1022.712 2403.756 Output Total 1275 1560 Balance 281.616 -519.244 Weight 99.2 kg Intake: IV 240 240 Sodium Chloride 0.9% 1, 240 240 000 ml @ 20 mls/hr IV . Q24H [facility] Rx#:[id number] Intake, IV Titration 968.616 566.756 Amount Heparin Sod,Pork in 0.45% 230 NaCl 25,000 unit In 0.45 % NaCl 1 250ml.bag @ 10. 07 UNITS/KG/HR 10 mls/hr IV .Q24H [facility] Rx#: [id number] Magnesium Sulfate-D5w Pmx 700 1 gm In Dextrose/Water 1 100ml.bag @ 100 mls/hr IVPB ONCE ONE Rx#: [id number] propofoL 1,000 mg In 268.616 336.756 Empty Bag 1 bag @ 15 MCG/ KG/MIN 8.577 mls/hr IV . [id number] [facility] Rx#:[id number] Tube Feeding 348 174 Other 60 Output: Urine 1275 1560 Other: Voiding Method Indwelling Catheter Indwelling Catheter - Exam CONSTITUTIONAL: Remains sedated and intubated, no acute distress RESPIRATORY: Lungs sounds coarse with expiratory wheezes present throughout both lungs. Respirations even, nonlabored on mechanical ventilation. Current ventilator settings FiO2 80%, PEEP 13, tidal volume 350, respiratory rate 26. 8.0 ET tube present, 23 at the lip CARDIOVASCULAR: S1, S2 present. Slow but regular rate and rhythm, sinus bradycardia on telemetry. Doppler lower extremity pulses bilaterally. Bilateral lower extremity pitting edema present, Anson wraps present from toes to knees, SCDs present. GASTROINTESTINAL: Abdomen soft, nontender, nondistended. Active bowel sounds present 4 quadrants. Positive bowel movement 04/08/23. OG tube present, TF infusing at 29 mL/hr, 250 ml residual last night per nursing GENITOURINARY: Cameron catheter present draining clear yellow urine, output 2795 mL in the last 24 hours INTEGUMENTARY: Skin is warm and dry NEUROLOGIC: Currently sedated with propofol. Per nursing patient does squeeze hands and move all extremities despite propofol - Allied health notes Allied health notes reviewed: nursing - Labs CBC & Chem 7: 04/10/23 06:24 04/09/23 04:31 Labs: Abnormal Lab Results - Last 24 Hours (Table) 04/09/23 04/09/23 04/09/23 Range/Units 11:59 17:15 23:30 RBC (3.80-5.40) m/uL APTT (22.0-30.0) sec ABG pH (7.35-7.45) ABG pCO2 (35-45) mmHg ABG pO2 (83-108) mmHg ABG HCO3 (21-25) mmol/L ABG Total CO2 (19-24) mmol/L ABG O2 Saturation (94-97) % POC Glucose (mg/dL) 246 H 294 H 232 H (70-110) mg/dL 04/10/23 04/10/23 04/10/23 Range/Units 01:57 05:52 06:14 RBC (3.80-5.40) m/uL APTT (22.0-30.0) sec ABG pH 7.49 H (7.35-7.45) ABG pCO2 54 H (35-45) mmHg ABG pO2 177 H (83-108) mmHg ABG HCO3 41 H* (21-25) mmol/L ABG Total CO2 43 H (19-24) mmol/L ABG O2 Saturation 99.7 H (94-97) % POC Glucose (mg/dL) 179 H 151 H (70-110) mg/dL 04/10/23 04/10/23 Range/Units 06:24 06:24 RBC 3.66 L (3.80-5.40) m/uL APTT 34.0 H (22.0-30.0) sec ABG pH (7.35-7.45) ABG pCO2 (35-45) mmHg ABG pO2 (83-108) mmHg ABG HCO3 (21-25) mmol/L ABG Total CO2 (19-24) mmol/L ABG O2 Saturation (94-97) % POC Glucose (mg/dL) (70-110) mg/dL Microbiology - Last 24 Hours (Table) 04/08/23 09:00 Acid Fast Bacilli Smear - Preliminary Pleural Fluid 04/08/23 09:00 Gram Stain - Preliminary Pleural Fluid Body Fluid Culture - Preliminary - Imaging and Cardiology Chest x-ray: image reviewed Assessment and Plan Assessment: Moderate to poorly differentiated pulmonary adenocarcinoma with 13 hilar lymph nodes positive for metastatic carcinoma status post robotic-assisted thoracoscopic left upper lobectomy with mediastinal lymph node dissection Postoperative paroxysmal atrial fibrillation currently sinus bradycardia Acute hypoxemic respiratory failure Worsening right lung possibly from aspiration Left lower lobe atelectasis and mucous plugging with tracheobronchial malacia status post multiple bronchoscopies Insulin dependent diabetes with poor glycemic control, hyperglycemia, A1c 8.8% Hypomagnesemia Current tobacco dependence with cessation prior to previous admission Moderate COPD, preoperative FEV1 54% of predicted, DLCO 36% of predicted Current daily EtOH use Hypertension Hyperlipidemia Stroke in 2016 with right-sided weakness Hepatitis B and C Bipolar depression History of IV heroin use with last use August 2018 Plan: Will plan to continue daily bronchoscopies. Patient may eventually need Pleurx catheter for continued drainage of the left pleural space Ventilator management, will extubate when able, may need tracheostomy if unable to extubate Continue Mucomyst, bronchodilators, Pulmicort Daily sedation holiday Continue to monitor clinical course off antibiotics Will monitor daily labs and x-rays, monitor for final cultures and pathology GI/DVT prophylaxis Diabetic management per internal medicine, patient needs tighter blood sugar control Continue Amiodarone, will taper weekly, continue IV heparin Medical management of other comorbidities per primary care service, pulmonology Guarded prognosis More recommendations to follow based on patient's progress
[2023-04-10 07:53] LABS: African American GFR (CKD) >90 (>60 ml/min/1.73 sqM); Anion Gap 7 mmol/L; Blood Urea Nitrogen 25 mg/dL (7-17); Calcium 8.1 mg/dL (8.4-10.2); Carbon Dioxide 36 mmol/L (22-30); Chloride 97 mmol/L (98-107); Glucose 138 mg/dL (74-99); Magnesium 1.9 mg/dL (1.6-2.3); Non-African American GFR(CKD) >90 (>60 ml/min/1.73 sqM); Sodium 140 mmol/L (137-145)
[2023-04-10 07:54] LABS: Potassium 4.3 mmol/L (3.5-5.1)
[2023-04-10 08:00] LABS: NT-Pro-B-Type Natriuretic Pept 4540 pg/mL
[2023-04-10] MEDS: FORMOTEROL FUMARATE 20 MCG/2 ML NEBU INHALATION SCH ×2 (08:16→20:06)
[2023-04-10] MEDS: IPRATROPIUM-ALBUTEROL 3 ML NEB INHALATION SCH ×4 (08:16→20:06)
[2023-04-10] MEDS: ACETYLCYSTEINE 800 MG/4 ML VIAL INHALATION SCH ×3 (08:16→20:05)
[2023-04-10] MEDS: BUDESONIDE 1 MG/2 ML NEBU INHALATION SCH ×2 (08:17→20:05)
[2023-04-10] MEDS: CHLORHEXIDINE GLUCONATE 15 ML CUP MUCOUS MEM SCH ×2 (08:31→20:20)
[2023-04-10] MEDS: SENNOSIDES 8.6 MG TAB PO SCH ×2 (08:32→20:21)
[2023-04-10] MEDS: methylPREDNISolone SOD SUCCI 40 MG/ML 1 ML VIAL IV SCH (08:32)
[2023-04-10] MEDS: guaiFENesin 600 MG TABLET.ER PO SCH ×2 (08:32→20:20)
[2023-04-10] MEDS: FOLIC ACID 1 MG TAB PO SCH (08:32)
[2023-04-10] MEDS: ATORVASTATIN 10 MG TAB PO SCH (08:32)
[2023-04-10] MEDS: GABAPENTIN 400 MG CAP PO SCH ×3 (08:32→20:20)
[2023-04-10] MEDS: AMIODARONE 200 MG TAB PO SCH ×2 (08:32→20:20)
[2023-04-10] MEDS: PANTOPRAZOLE 40 MG TABLET PO SCH (08:32)
[2023-04-10] MEDS: THIAMINE 100 MG TAB PO SCH (08:32)
--- NOTE | 2023-04-10 09:15 | P.PN ---
Subjective Progress Note Date: 04/10/23 Principal diagnosis: Paroxysmal atrial fibrillation The patient is a 57-year-old female patient who is currently intubated and she is on mechanical ventilation and we requested to see the patient for paroxysmal atrial fibrillation. The history was taken from the chart. Apparently the patient does have history of paroxysmal atrial fibrillation and she was receiving amiodarone orally and also she does have history of stroke and diabetes and hypertension and dyslipidemia and chronic obstructive pulmonary disease and drug abuse. The patient has been in the hospital for few days. 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 She was admitted to the hospital this time with what it seems to be related to pneumonia. Also she underwent bronchoscopy multiple times because of the collapse of the left lung. Currently she is intubated and she is on mechanical ventilation. We consulted to see the patient because she did have an episode of tachycardia yesterday. I did get the EKG which seems to be somewhat concerning for atrial fibrillation which is known to the patient from before. Currently she is back in normal sinus mechanism. For some reason the patient is not on any anticoagulation. Her hemoglobin is stable. I am going to consider starting the patient on heparin IV at this point and consider switching her to oral anticoagulation unless there is any contraindication from another aspects. Beside that continue the current medical regimen including the current dose of amiodarone. The examination is remarkable for stable vital signs with regular rhythm and distant heart sounds and imaged breathing sounds and mild bilateral lower extremity edema noted. 04/09/2023 The patient was seen and evaluated this morning. She continues to be intubated on mechanical ventilation but she is hemodynamically stable but she underwent bronchoscopy yesterday and she is possibly need to undergo another one today beach she has been maintaining normal sinus mechanism. She was started on heparin which we will continue at this point and consider switching the patient to oral anticoagulation once she does not need any other surgical/invasive procedures. The examination is remarkable for regular rhythm with distant heart sounds and bilateral expiratory wheezing and mild bilateral lower extremities edema noted. April 102023 The patient was seen and evaluated this morning she continues to be intubated on mechanical ventilation but she's hemodynamics is stable and she continues to be on heparin IV. We'll continue the current medical regimen beach she has been maintaining normal sinus mechanism. Consider starting the patient on oral anticoagulation was 10 she doesn't need any further procedures. The examination is remarkable for intubated patient with regular rhythm and soft systolic murmur and diminished breathing sounds bilaterally and no edema in the lower extremity is Assessment Acute respiratory failure Paroxysmal atrial fibrillation Hypertension/dyslipidemia/diabetes History of drug abuse Chronic obstructive pulmonary disease Plan Continue the current medical regimen Follow-up with the patient Objective - Vital Signs Vital signs: Vital Signs Temp 98.4 F 04/10/23 08:00 Pulse 53 L 04/10/23 08:44 Resp 20 04/10/23 08:00 BP 141/60 04/10/23 08:00 Pulse Ox 100 04/10/23 08:00 FiO2 70 04/10/23 08:28 Intake & Output 04/09/23 04/10/23 04/10/23 18:59 06:59 18:59 Intake Total 7712.097 5327.756 81.333 Output Total 1275 1560 275 Balance 281.616 -519.244 -193.667 Weight 99.2 kg 96.3 kg Intake: IV 240 240 20 Sodium Chloride 0.9% 1, 240 240 20 000 ml @ 20 mls/hr IV . Q24H [facility] Rx#:[id number] Intake, IV Titration 968.616 566.756 32.333 Amount Heparin Sod,Pork in 0.45% 230 32.333 NaCl 25,000 unit In 0.45 % NaCl 1 250ml.bag @ 10. 07 UNITS/KG/HR 10 mls/hr IV .Q24H [facility] Rx#: [id number] Magnesium Sulfate-D5w Pmx 700 1 gm In Dextrose/Water 1 100ml.bag @ 100 mls/hr IVPB ONCE ONE Rx#: [id number] propofoL 1,000 mg In 268.616 336.756 Empty Bag 1 bag @ 15 MCG/ KG/MIN 8.577 mls/hr IV . [id number] [facility] Rx#:[id number] Tube Feeding 348 174 29 Other 60 Output: Urine 1275 1560 275 Other: Voiding Method Indwelling Catheter Indwelling Catheter Indwelling Catheter - Labs CBC & Chem 7: 04/10/23 06:24 04/10/23 06:24 Labs: Abnormal Lab Results - Last 24 Hours (Table) 04/09/23 04/09/23 04/09/23 Range/Units 11:59 17:15 23:30 RBC (3.80-5.40) m/uL APTT (22.0-30.0) sec ABG pH (7.35-7.45) ABG pCO2 (35-45) mmHg ABG pO2 (83-108) mmHg ABG HCO3 (21-25) mmol/L ABG Total CO2 (19-24) mmol/L ABG O2 Saturation (94-97) % Chloride (98-107) mmol/L Carbon Dioxide (22-30) mmol/L BUN (7-17) mg/dL Glucose (74-99) mg/dL POC Glucose (mg/dL) 246 H 294 H 232 H (70-110) mg/dL Calcium (8.4-10.2) mg/dL 04/10/23 04/10/23 04/10/23 Range/Units 01:57 05:52 06:14 RBC (3.80-5.40) m/uL APTT (22.0-30.0) sec ABG pH 7.49 H (7.35-7.45) ABG pCO2 54 H (35-45) mmHg ABG pO2 177 H (83-108) mmHg ABG HCO3 41 H* (21-25) mmol/L ABG Total CO2 43 H (19-24) mmol/L ABG O2 Saturation 99.7 H (94-97) % Chloride (98-107) mmol/L Carbon Dioxide (22-30) mmol/L BUN (7-17) mg/dL Glucose (74-99) mg/dL POC Glucose (mg/dL) 179 H 151 H (70-110) mg/dL Calcium (8.4-10.2) mg/dL 04/10/23 04/10/23 04/10/23 Range/Units 06:24 06:24 06:24 RBC 3.66 L (3.80-5.40) m/uL APTT 34.0 H (22.0-30.0) sec ABG pH (7.35-7.45) ABG pCO2 (35-45) mmHg ABG pO2 (83-108) mmHg ABG HCO3 (21-25) mmol/L ABG Total CO2 (19-24) mmol/L ABG O2 Saturation (94-97) % Chloride 97 L (98-107) mmol/L Carbon Dioxide 36 H (22-30) mmol/L BUN 25 H (7-17) mg/dL Glucose 138 H (74-99) mg/dL POC Glucose (mg/dL) (70-110) mg/dL Calcium 8.1 L (8.4-10.2) mg/dL Microbiology - Last 24 Hours (Table) 04/08/23 09:00 Gram Stain - Preliminary Pleural Fluid Body Fluid Culture - Preliminary 04/08/23 09:00 Acid Fast Bacilli Smear - Preliminary Pleural Fluid
--- NOTE | 2023-04-10 11:41 | P.PN ---
Subjective Progress Note Date: 04/10/23 Principal diagnosis: Shortness of breath. Patient was evaluated today on 04/01/23, a is basically about the same, patient was seen by thoracic surgery and she was told that she will undergo bronchoscopy today. Patient is comfortable, chest x-ray all along has been showing complete opacification of the left lung, hopefully this bronchoscopy would be better than previous bronchoscopy and more beneficial however considering the patient already had 4 bronchoscopies and did not improve her lung condition, I doubt that this will. However this bronchoscopy is being done by thoracic surgery/Dr. June The patient is seen today 04/02/2023 in follow-up on the regular medical floor. She is currently sitting up in a chair. Awake and alert in no acute distress. She is maintaining good O2 saturations in the 90s on 2 L/m per nasal cannula. White count 8.1. Hemoglobin 10.4. Platelets 160. Sodium 135. Potassium 3.8. Bicarb 32. BUN 13. Creatinine 0.7. Glucose 164. Chest x-ray continues to show similar opacification of left lung will occur rectal secondary to atelecta sis and large pleural effusion. No pneumothorax visualized. Enlarging right pleural effusion now small to moderate. She did undergo bronchoscopy yesterday with Dr. June and the plan is to return for another bronchoscopy again today. She is continued on DuoNeb inhalations, Symbicort, Mucinex, Mucomyst, antibiotics in the form of Unasyn. Heparin for DVT prophylaxis. The patient is seen today 04/03/2023 in follow-up on the regular medical floor. She is currently sitting up in a chair at the bedside. Awake and alert in no acute distress. She is maintaining good O2 saturations in the 90s on 2 L/m per nasal cannula. Blood cultures reveal no growth. White count 6.8. Hemoglobin 11.7. Platelets 127. Sodium 136. Potassium 4.1. Bicarb 32. BUN 12. Creatinine 0.8. Glucose 149. Remains on antibiotics in the form of Unasyn. Continued on bronchodilators, Mucomyst, Mucinex. Continued on IV diuretics. Heparin for DVT prophylaxis. The patient is seen today 04/04/2023 in follow-up on the regular medical floor. She did utilize BiPAP through the night 10/5 and 30% FiO2. Otherwise utilizing oxygen at 3 L/m per nasal cannula. She did undergo another bronchoscopy with BAL per CT services today. Chest x-ray continues to show near complete white out of the left hemithorax. Small portion left upper lung mass remains aerated now. Ongoing small to moderate right effusion with adjacent atelectasis. She is encouraged regarding increased use the incentive spirometer. Increase activity as tolerated. Remains on antibiotics in the form of Unasyn. Remains on Symbicort, DuoNeb inhalations, Solu-Medrol, Mucinex and Mucomyst. Heparin for DVT prophylaxis. Remains on IV diuretics. Sodium 135. Potassium 4.6. Bicarb 31. BUN 13. Creatinine 0.55. Glucose 154. ProBNP 2910. Progress note dated 04/05/2023. 57-year-old female with a previous recent history of left upper lobectomy for lung cancer. The patient has been in and out of the hospital multiple times, is required multiple bronchoscopies, for left lung collapse. Currently, the patient is seen today in room 364. She is on 4 L of oxygen. She's getting saline at 10 mL an hour. Her most recent chest x-ray shows partial left lung collapse. Current labs include a sodium 136, potassium 3.9, chlorides 96, CO2 31, BUN 15, creatinine 0.56. Glucose is 198. Calcium is 8.2. Chest x-ray shows postsurgical volume loss, left hemithorax, with slight improvement overall. Progress note dated 04/06/2023. 57-year-old female, who is seen today in room 263. The patient was previously room 364. She underwent bronchoscopy today, with Dr. June, and came back, to the intensive care unit, on the mechanical ventilator. She's getting saline at 125 mL an hour. She is on propofol at 45 mcg/kg/m. Her ventilator settings include the volume assist control, rate 20, tidal volume 350, FiO2 50%, and PEEP of 5. I've asked the nurse, to have respiratory bump up the PEEP from 5 to 8 cm water, and increase the FiO2 up to 60%. Blood gases, on the previous setting show pO2 of 58, pCO2 54, and a pH is 7.41. That was on 50% FiO2, and 5 of PEEP. Additional labs include a white count of 7.1, hemoglobin 10.7, hematocrit 32.3, and a normal platelet count. Sodium 135, potassium 3.8, chlorides 96, CO2 31, BUN 20, creatinine 0.59. Progress note dated 04/07/2023. 57 year old female seen today in room 263. The patient had bronchoscopy done yesterday, by Dr. June. She came back to the intensive care unit, on the mechanical ventilator. This morning, I do another bronchoscopy on the patient, and remove thick mucus and secretions from the left lung area. Currently, the patient remains on the volume assist control, rate 20, tidal volume 350, FiO2 60%, and PEEP of 8. Blood gases show pO2 73, pCO2 of 52, and a pH is 7.43. The patient is currently on saline at 75 mL an hour, and propofol at 35 mcg/kg/m. In addition, the patient is on insulin at 2.05 units an hour. Prior to the bronchoscopy, the patient did receive paralytic common form of Nimbex, 15 mg. The patient will stay on the ventilator overnight, and have another bronchoscopy tomorrow, and one again on Wednesday. Current labs included a white count 7.5, hemoglobin 12, hematocrit 36.7, platelet count 148,000. Sodium 138, potassium 3.9, chlorides 98, CO2 32, BUN 21, creatinine 0.58. Albumin is 2.7. Chest x-ray shows volume loss in the left lung, infiltrate in the right lung, and an effusion on the left side. Progress note dated 04/08/2023. The patient is seen today in room 263. The patient had to procedure today, including a left-sided thoracentesis, were biceps 56 fluid was removed. Also, the patient had a repeat bronchoscopy. Currently, the patient remains on mechanical ventilator, with settings of volume assist control, rate 20, tidal volume 350, FiO2 60%, PEEP of 10. Blood gases done on the same settings, but instead, 5 of PEEP, show pO2 of 54, pCO2 60, pH is 7.37. The patient's on propofol, at 50 mcg/kg/m, saline at 75 mL an hour, and heparin, which was discontinued briefly, for the thoracentesis. She is also on vital high protein, at 10 mL an hour. White count is 8.5, hemoglobin 11.1, hematocrit 35, and platelet count is normal. Sodium 141, potassium 3.9, chlorides 99, CO2 31, BUN 25, creatinine 0.69. Glucose 267. Calcium 7.9, and magnesium is 2. Chest x- rays are reviewed. Progress note dated 04/09/2023. 57-year-old female seen again in the intensive care unit, room 263. The patient will have another bronchoscopy today. Yesterday, she had bronchoscopy, and left thoracentesis. I did speak to Dr. June about her. She remains on the ventilator. Ventilator settings include the volume assist control, rate 20, tidal volume 350, FiO2 70%, and PEEP of 10. Blood gases, on the same settings, but 60%, she'll pO2 of 56, pCO2 64, pH is 7.40. The patient remains on propofol at 45 mcg/kg/m, and heparin via weightbase protocol. The patient's getting saline at 20 mL an hour, and vital high protein at 29 mL an hour, which is goal. Her chest x-ray today shows evidence of recurrent left-sided effusion. White count 7.2, heme him 10.6, hematocrit 33.3, with a normal platelet count. Sodium 139, potassium 3.7, chlorides 97, CO2 33, BUN 23, and creatinine 0.69. Albumin is 2.7. Progress note dated 04/10/2023. 57-year-old female, seen again in room 263. The patient had a bronchoscopy y esterday. We had to increase the FiO2 up to 100%, and increase the PEEP up to 13, after the procedure, because of persistent and prolonged desaturation. Currently, she is on volume assist control, rate 26, tidal volume 350, FiO2 of 80%, brought down to 60%, and a PEEP of 13. Blood gases done on the 80% show pO2 177, pCO2 54, and a pH is 7.49. Patient remains on propofol at 50 mcg/kg/m, and heparin via weightbase protocol. The patient's also getting saline at KVO, and vital HP at 29 mL an hour, which is goal. White count 8.7, hemoglobin 11.4, hematocrit 35.2, with a normal platelet count. Sodium 140, potassium 4.3, chlorides 97, CO2 36, BUN 25, creatinine 0.57. Pro-calcitonin level is 0.18. N-terminal proBNP is 4540. Chest x-ray shows interstitial infiltrates throughout the right lung. There is an ongoing left hydropneumothorax. Objective - Vital Signs Vital signs: Vital Signs Temp 98.4 F 04/10/23 08:00 Pulse 52 L 04/10/23 11:32 Resp 20 04/10/23 08:00 BP 141/60 04/10/23 08:00 Pulse Ox 100 04/10/23 08:00 FiO2 60 04/10/23 11:32 Intake & Output 04/09/23 04/10/23 04/10/23 18:59 06:59 18:59 Intake Total 2114.693 1270.756 130.333 Output Total 1275 1560 450 Balance 281.616 -519.244 -319.667 Weight 99.2 kg 96.3 kg Intake: IV 240 240 40 Sodium Chloride 0.9% 1, 240 240 40 000 ml @ 20 mls/hr IV . Q24H [facility] Rx#:[id number] Intake, IV Titration 968.616 566.756 32.333 Amount Heparin Sod,Pork in 0.45% 230 32.333 NaCl 25,000 unit In 0.45 % NaCl 1 250ml.bag @ 10. 07 UNITS/KG/HR 10 mls/hr IV .Q24H [facility] Rx#: [id number] Magnesium Sulfate-D5w Pmx 700 1 gm In Dextrose/Water 1 100ml.bag @ 100 mls/hr IVPB ONCE ONE Rx#: [id number] propofoL 1,000 mg In 268.616 336.756 Empty Bag 1 bag @ 15 MCG/ KG/MIN 8.577 mls/hr IV . [id number] [facility] Rx#:[id number] Tube Feeding 348 174 58 Other 60 Output: Urine 1275 1560 450 Other: Voiding Method Indwelling Catheter Indwelling Catheter Indwelling Catheter - Exam No acute distress, sedated, with an orally placed endotracheal tube, and NG tube. HEENT examination is grossly unremarkable. Neck supple. Full range of motion. No adenopathy thyromegaly or neck vein distention. Cardiovascular examination reveals regular rhythm rate. S1-S2 normal. No S3 or S4. No discernible murmur noted. Heart rate is 52 bpm. Lungs reveal diminished breath sounds on the left. Mild scattered rhonchi are noted. No wheezes or crackles. Right lung is clear. Saturations are 97%. Abdomen soft bowel sounds are heard. No masses or tenderness. Extremities are intact. No cyanosis clubbing or edema. Skin is without rash or lesion. Neurologic examination cannot be currently assessed. - Labs CBC & Chem 7: 04/10/23 06:24 04/10/23 06:24 Labs: Abnormal Lab Results - Last 24 Hours (Table) 04/09/23 04/09/23 04/09/23 Range/Units 11:59 17:15 23:30 RBC (3.80-5.40) m/uL APTT (22.0-30.0) sec ABG pH (7.35-7.45) ABG pCO2 (35-45) mmHg ABG pO2 (83-108) mmHg ABG HCO3 (21-25) mmol/L ABG Total CO2 (19-24) mmol/L ABG O2 Saturation (94-97) % Chloride (98-107) mmol/L Carbon Dioxide (22-30) mmol/L BUN (7-17) mg/dL Glucose (74-99) mg/dL POC Glucose (mg/dL) 246 H 294 H 232 H (70-110) mg/dL Calcium (8.4-10.2) mg/dL Procalcitonin (0.02-0.09) ng/mL 04/10/23 04/10/23 04/10/23 Range/Units 01:57 05:52 06:14 RBC (3.80-5.40) m/uL APTT (22.0-30.0) sec ABG pH 7.49 H (7.35-7.45) ABG pCO2 54 H (35-45) mmHg ABG pO2 177 H (83-108) mmHg ABG HCO3 41 H* (21-25) mmol/L ABG Total CO2 43 H (19-24) mmol/L ABG O2 Saturation 99.7 H (94-97) % Chloride (98-107) mmol/L Carbon Dioxide (22-30) mmol/L BUN (7-17) mg/dL Glucose (74-99) mg/dL POC Glucose (mg/dL) 179 H 151 H (70-110) mg/dL Calcium (8.4-10.2) mg/dL Procalcitonin (0.02-0.09) ng/mL 04/10/23 04/10/23 04/10/23 Range/Units 06:24 06:24 06:24 RBC 3.66 L (3.80-5.40) m/uL APTT 34.0 H (22.0-30.0) sec ABG pH (7.35-7.45) ABG pCO2 (35-45) mmHg ABG pO2 (83-108) mmHg ABG HCO3 (21-25) mmol/L ABG Total CO2 (19-24) mmol/L ABG O2 Saturation (94-97) % Chloride (98-107) mmol/L Carbon Dioxide (22-30) mmol/L BUN (7-17) mg/dL Glucose (74-99) mg/dL POC Glucose (mg/dL) (70-110) mg/dL Calcium (8.4-10.2) mg/dL Procalcitonin 0.18 H (0.02-0.09) ng/mL 04/10/23 Range/Units 06:24 RBC (3.80-5.40) m/uL APTT (22.0-30.0) sec ABG pH (7.35-7.45) ABG pCO2 (35-45) mmHg ABG pO2 (83-108) mmHg ABG HCO3 (21-25) mmol/L ABG Total CO2 (19-24) mmol/L ABG O2 Saturation (94-97) % Chloride 97 L (98-107) mmol/L Carbon Dioxide 36 H (22-30) mmol/L BUN 25 H (7-17) mg/dL Glucose 138 H (74-99) mg/dL POC Glucose (mg/dL) (70-110) mg/dL Calcium 8.1 L (8.4-10.2) mg/dL Procalcitonin (0.02-0.09) ng/mL Microbiology - Last 24 Hours (Table) 04/08/23 09:00 Gram Stain - Preliminary Pleural Fluid Body Fluid Culture - Preliminary 04/08/23 09:00 Acid Fast Bacilli Smear - Preliminary Pleural Fluid Assessment and Plan Assessment: Status post bronchoscopy, with suctioning of airway secretions, currently requiring intubation, and mechanical ventilation, 04/06/2023 and 04/07/2023, 04/08/2023, 04/09/2023 and left-sided thoracentesis on 04/08/2023. Left lung collapse, essentially the left lower lobe secondary to mucous plugs. Bronchoscopy was done during the earlier hospitalization the patient was found to have mucous plugs, significant tracheobronchomalacia, narrowing of the left lower lobe bronchial orifice. Currently on Unasyn. Plan is for daily bronchoscopy per CT services and placed on BiPAP 04/03/2023. Acute on chronic shortness of breath without any worsening in her hypoxemia. The patient's shortness of breath is multifactorial. Obviously she has undergone a left upper lobe resection. She has also complete atelectasis of left lower lobe and several attempts to reexpand the lung on the left has failed as the patient has significant tracheal bronchomalacia, mucus, Haemophilus influenza pneumonia and narrowing of the left lower lobe orifice as noted on several bronchoscopies. The left lung remains unchanged. The acute decompensation could be related to A. fib which is paroxysmal and the patient may have some interval worsening in her volume status. As such, the patient was hospitalized. ProBNP level is elevated. Remains on IV diuretics. Persistent left lower lobe atelectasis. Computed tomography scan of the chest 03/30/2023 revealed increased consolidation and collapse of the left lower lobe with essentially no residual aerated lung seen. Small to moderate size left pleural effusion however pneumothorax component of this has essentially resolved. Small mucous secretions along the tracheal wall and thoracic inlet. Right hilar adenopathy likely present on prior unenhanced study and suspected unchanged. Moderate right pleural effusions. Previous right upper lobe grou ndglass infiltrates have resolved. Pulmonary adenocarcinoma with a 1.5 cm mass in the left upper lobe. On 03/15/2023 she had undergone a robotically assisted thoracoscopic left upper lobectomy with mediastinal lymph node dissection, for early stage NSCLC. The final pathologic staging is T1b N1 M0 disease. Acute hypoxic respiratory failure currently on 4 L of oxygen nasal cannula. Tracheobronchomalacia, severe. Paroxysmal atrial fibrillation. History of chronic obstructive pulmonary disease. Chronic tobacco dependence. History of CVA. History of diabetes mellitus. History of hypertension. History of hyperlipidemia. History of alcohol abuse and heroin abuse. History of hepatitis B and C. Plan: Plan dated 04/05/2023. The patient was seen and evaluated. The patient is currently on 4 L of oxygen. Saturations are 96%. The patient is receiving saline at 10 mL an hour. Labs, and x-rays are evaluated. Chest x-ray is about the same, or mildly improved. We will continue to follow make recommendations along the way. The patient will continue on bronchodilators, and BiPAP, as tolerated. The patient should also do incentive spirometer, every hour while awake, and be encouraged to deep breathe, cough, and clear secretions. We will continue to follow make re commendations where appropriate. Prognosis is guarded. Plan dated 04/06/2023. The patient returned back to the intensive care unit, on the mechanical ventilator. Ventilator changes have been made. Gases have been evaluated. The patient is currently on propofol for sedation, at 45 mcg/kg/m. The patient's on saline at 125 mL an hour. Morning labs, x-rays, and blood gases will be done. Cardiothoracic surgery may wish to do bronchoscopy on this patient again tomorrow, and it will be easily facilitated, while the patient is on chemical ventilation. Additional recommendations and suggestions are forthcoming. Labs, x-rays, and medications are reviewed. Plan dated 04/07/2023. The patient had bronchoscopy today, in the intensive care unit, room 263. She was placed on a 100% oxygen. She received some Nimbex before the procedure. I think secretions from the left mainstem bronchus, and the left lower lobe bronchi. The patient tolerated the procedure well. The plan is to keep her on the ventilator, and Vincent or tomorrow, i.e. , as well as Wednesday. In addition, I will check an ultrasound of the left chest, consider thoracentesis, depending on whether or not there is enough fluid, to do the procedure safely. Labs, x-rays, and medications are reviewed. The patient remains on the ventilator. He is on propofol at 35 mcg/kg/m, and insulin at 2.05 units an hour. She's getting saline at 75 mL an hour. We will start tube feedings today. Additional recommendations and suggestions are forthcoming. Prognosis is guarded. Plan dated 04/08/2023. The patient has had bronchoscopy, pretty much every day. I did yesterday and again today. Secretions were suctioned from the left lung. In addition, the patient had a left-sided thoracentesis today was 750 mL of fluid removed. The fluid was sent to laboratory for analysis. The patient tolerated the procedure well. The left lung does not fully expanded. The chest x-ray, though in my opinion, looks improved. We will continue to follow make recommendations along the way. Labs, x-rays, medications are reviewed. Gnosis is guarded. The patient continues on propofol, heparin, and tube feedings. The patient's also receiving saline at 75 mL an hour. Plan dated 04/09/2023. The patient will have another bronchoscopy today. Hopefully, the patient can be extubated this weekend. Cardiothoracic surgery is considering the possibility of placing a left-sided chest tube. Labs, x-rays, medications are reviewed. The patient had a left-sided thoracentesis yesterday, and 750 mL of fluid was removed. We will continue to follow the patient, make recommendations along the way. Prognosis is certainly guarded. The patient continues on appropriate medications including heparin, propofol, and tube feedings. Plan dated 04/10/2023. The patient's blood gases this morning were much improved, and the FiO2 was r educed down from 80%, down to 60%. We will continue to reduce the FiO2, to which it was safe level, at 50%. At that point, we'll start reducing the PEEP levels. Labs, x-rays, and medications are reviewed. The patient is receiving vital high protein at 29 mL an hour. The patient continues on propofol at 50 mcg/kg/m. Blood gases are reviewed. Labs, x-rays, and medications are reviewed. Prognosis is certainly guarded. Time with Patient: Greater than 30
--- NOTE | 2023-04-10 12:31 | XR ---
EXAMINATION TYPE: XR chest 1V portable DATE OF EXAM: 04/10/2023 COMPARISON: 04/09/2023 INDICATION: Post bronchoscopy TECHNIQUE: Single frontal view of the chest is obtained. FINDINGS: The heart size is indistinct. The pulmonary vasculature is prominent. Diffuse increased lung markings into the right lung. Correlate for edema. This may be improved over t he interval. Focal infiltrate at the right base. Consider developing pneumonia. Moderate left pleural effusion is present. Left pneumothorax is present. Endotracheal tube tip is above the nickie. Nasogastric tube transverses the thorax. IMPRESSION: 1. Appears to be stable pneumothorax left lung. 2. Moderate left pleural effusion. 3. Pulmonary edema through the right lung. 4. Worsening infiltrate more focal at the right base can be developing pneumonia. Follow-up is recomm ended.
[2023-04-10 12:32] LABS: Glucose,Whole Blood 260 mg/dL (70-110)
[2023-04-10 18:40] LABS: Glucose,Whole Blood 296 mg/dL (70-110)
[2023-04-10] MEDS: HEPARIN SODIUM,PORCINE 5,000 UNIT/ML 1 ML VIAL SQ SCH (20:27)
[2023-04-10] MEDS: SYMBICORT 80-4.5 MCG INHALER INHALATION SCH (20:28)
--- NOTE | 2023-04-10 23:53 | PN ---
PROGRESS NOTE DATE OF SERVICE: 04/10/2023 SUBJECTIVE: This is a 57-year-old woman who was admitted with acute respiratory failure, also had multiple underlying pathologies. The patient had multiple bronchoscopies. The patient had left lung collapse secondary to mucus plugs. The patient is still on mechanical ventilation. Currently, the patient is on assist control of 350, PEEP of 13, and FiO2 of 60%, which is slightly better than yesterday, which was 100%. Multiple consultants are following the patient closely. The most recent chest x-ray, which was reviewed personally, showed significant bilateral pleural effusions, left more than the right, as well as pulmonary opacities also. PAST MEDICAL HISTORY: Reviewed. REVIEW OF SYSTEMS: Could not be taken. CURRENT MEDICATIONS: Reviewed and include DuoNeb. Doses and rest of the medications noted. PHYSICAL EXAMINATION: VITAL SIGNS: Pulse is 53, blood pressure 130/60, respirations 26. HEENT: Conjunctivae normal. NECK: No jugular venous distention. CARDIOVASCULAR: S1, S2. RESPIRATIONS: Diminished at the bases. Bilateral scattered rhonchi and crackles. ABDOMEN: Soft. NERVOUS SYSTEM: No focal deficits. LABORATORY DATA: ABGs noted, otherwise, glucose 138 and procalcitonin 0.18. ASSESSMENT: 1. Acute respiratory failure, multifactorial, on mechanical ventilation. 2. Left lung collapse. 3. Bilateral pleural effusion, left more than the right. 4. Acute hypoxic respiratory failure. 5. Paroxysmal atrial fibrillation. 6. Chronic obstructive pulmonary disease, acute exacerbation. 7. Pulmonary adenocarcinoma. 8. Possible infiltrates on the right side. 9. Elevated procalcitonin. RECOMMENDATIONS: This is a 57-year-old woman who presented with multiple complex medical issues. We will monitor the patient closely, continue the current medications, continue symptomatic treatment, otherwise, at this time. Continue the mechanical ventilation. The patient might benefit from a course of antibiotics otherwise. Chest x-ray was reviewed. Closely follow with multiple consultants. Prognosis guarded. Further recommendations to follow. MMODL / IJN: [id number] /
[2023-04-11] MEDS: FUROSEMIDE 10 MG/ML 2 ML VIAL IV SCH ×2 (00:11→06:10)
[2023-04-11] MEDS: INSULIN ASPART (NovoLOG) 100 UNIT/ML VIAL SQ SCH ×5 (00:14→23:49)
[2023-04-11 00:16] LABS: Glucose,Whole Blood 133 mg/dL (70-110)
[2023-04-11] MEDS: HEPARIN SOD,PORK IN 0.45% NACL 25,000 UNIT in 0.45% NACL 1 250ML.BAG IV SCH (00:16)
[2023-04-11] MEDS: SYMBICORT 80-4.5 MCG INHALER INHALATION SCH (02:15)
[2023-04-11 04:30] LABS: African American GFR (CKD) >90 (>60 ml/min/1.73 sqM); Anion Gap 6 mmol/L; Blood Urea Nitrogen 28 mg/dL (7-17); Calcium 8.1 mg/dL (8.4-10.2); Carbon Dioxide 37 mmol/L (22-30); Chloride 95 mmol/L (98-107); Glucose 123 mg/dL (74-99); Non-African American GFR(CKD) >90 (>60 ml/min/1.73 sqM); Sodium 138 mmol/L (137-145)
[2023-04-11 04:32] LABS: Magnesium 1.8 mg/dL (1.6-2.3)
[2023-04-11 04:41] LABS: HCT 32.1 % (34.0-46.0); HGB 10.7 gm/dL (11.4-16.0); Hypochromasia Slight; MCH 30.2 pg (25.0-35.0); MCHC 33.3 g/dL (31.0-37.0); Mean Platelet Volume 10.3; Platelet Count 120 k/uL (150-450); Poikilocytosis Slight; RBC 3.54 m/uL (3.80-5.40); RDW 13.9 % (11.5-15.5); WBC 7.9 k/uL (3.8-10.6)
[2023-04-11 04:43] LABS: MCV 90.8 fL (80.0-100.0)
[2023-04-11] MEDS ORDERED: MAGNESIUM SULFATE-D5W PMX 1 GM in DEXTROSE/WATER 1 100ML.BAG IVPB ONE (05:35)
[2023-04-11 05:54] LABS: Glucose,Whole Blood 140 mg/dL (70-110)
[2023-04-11] MEDS: SODIUM CHLORIDE 0.9% 1,000 ML IV SCH (06:10)
[2023-04-11] MEDS: INSULIN DETEMIR (LEVEMIR) 100 UNIT/ML SYR SQ SCH ×2 (06:10→19:54)
[2023-04-11 06:31] LABS: ABG Base Excess 18.6 mmol/L; ABG PCO2 42 mmHg (35-45); ABG PO2 184 mmHg (83-108); ABG TCO2 42 mmol/L (19-24); Allen Test Performed? Yes
[2023-04-11 06:32] LABS: ABG PH 7.59 (7.35-7.45)
[2023-04-11 06:33] LABS: ABG HCO3 40 mmol/L (21-25)
--- NOTE | 2023-04-11 07:59 | XR ---
EXAMINATION TYPE: XR chest 1V portable DATE OF EXAM: 04/11/2023 COMPARISON: 04/10/2023 INDICATION: Respiratory failure TECHNIQUE: Single frontal view of the chest is obtained. FINDINGS: The heart size is normal. The pulmonary vasculature is prominent. Mild increased lung markings are through the right lung greatest at the right lung base. Findings are improved over the interval. Moderate left pleural effusion is stable small left apical pneumothorax may be present. Endotracheal tube tip is above the nickie. Nasogastric tube transverses the thorax. IMPRESSION: 1. Moderate left pleural effusion. Pulmonary edema, minimal left apical pneumothorax likely present.
[2023-04-11] MEDS: FORMOTEROL FUMARATE 20 MCG/2 ML NEBU INHALATION SCH ×2 (08:11→20:21)
[2023-04-11] MEDS: ACETYLCYSTEINE 800 MG/4 ML VIAL INHALATION SCH ×3 (08:12→20:20)
[2023-04-11] MEDS: IPRATROPIUM-ALBUTEROL 3 ML NEB INHALATION SCH ×4 (08:12→20:21)
[2023-04-11] MEDS: BUDESONIDE 1 MG/2 ML NEBU INHALATION SCH ×2 (08:12→20:21)
[2023-04-11] MEDS: SENNOSIDES 8.6 MG TAB PO SCH ×2 (08:22→19:54)
--- NOTE | 2023-04-11 09:34 | P.PN ---
Subjective Progress Note Date: 04/11/23 Principal diagnosis: Shortness of breath, rapid atrial fibrillation present on admission, worsening right lung possibly from aspiration. History of moderate to poorly differentiate d pulmonary adenocarcinoma with 13 hilar lymph nodes positive for metastatic carcinoma status post robotic-assisted thoracoscopic left upper lobectomy with mediastinal lymph node dissection, postoperative paroxysmal atrial fibrillation, left lower lobe atelectasis and mucous plugging with tracheobronchial malacia status post bronchoscopy 3, insulin dependent diabetes with poor glycemic control, hypomagnesemia, current tobacco dependence with cessation prior to previous admission, moderate COPD, current daily EtOH use, hypertension, hyperlipidemia, stroke in 2016 with right-sided weakness, hepatitis B and C, bipolar depression, IV heroin use 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 Remains intubated and sedated. Remains sinus bradycardia with heart rate in the 50s, hemodynamically stable. Patient has undergone bronchoscopy daily, last bronch was Wednesday during which patient became hypoxic requiring increase in FiO2 and PEEP, FiO2 has been weaned back down to 60%, PEEP remains 13, oxygen saturation remains in the high 90s. In addition she had a left-sided thoracentesis with removal of 750 mL fluid which was sent for cytology and culture, preliminary Gram stain negative. CXR r eviewed, patient does have underlying trapped left lung with accumulation of pleural fluid and persistent diffuse interstitial opacities throughout the right lung, potentially from aspiration, does appear slightly better today. Ventilator adjustments made by instructional facilitator. Remains off antibiotics, remains afebrile, CBC normal. Currently receiving IV Solu-Medrol which will be decreased again. Continues on IV heparin due to paroxysmal atrial fibrillation. Tube feeding infusing at goal. No other new concerns. Objective - Vital Signs Vital signs: Vital Signs Temp 98.6 F 04/11/23 04:00 Pulse 56 L 04/11/23 08:32 Resp 26 H 04/11/23 07:00 BP 139/62 04/11/23 07:00 Pulse Ox 100 04/11/23 07:00 FiO2 60 04/11/23 08:17 Intake & Output 04/10/23 04/11/23 04/11/23 18:59 06:59 18:59 Intake Total 439.498 1913.008 49 Output Total 1620 1120 200 Balance -736.214 19.008 -151 Weight 96.3 kg 98.3 kg Intake: IV 220 240 20 Sodium Chloride 0.9% 1, 220 240 20 000 ml @ 20 mls/hr IV . Q24H [facility] Rx#:[id number] Intake, IV Titration 315.786 403.008 Amount Heparin Sod,Pork in 0.45% 32.333 207.231 NaCl 25,000 unit In 0.45 % NaCl 1 250ml.bag @ 10. 07 UNITS/KG/HR 10 mls/hr IV .Q24H [facility] Rx#: [id number] propofoL 1,000 mg In 283.453 195.777 Empty Bag 1 bag @ 15 MCG/ KG/MIN 8.577 mls/hr IV . [id number] [facility] Rx#:[id number] Tube Feeding 348 406 29 Other 90 Output: Urine 1620 1120 200 Other: Voiding Method Indwelling Catheter Indwelling Catheter # Bowel Movements 1 - Exam CONSTITUTIONAL: Remains sedated and intubated, no acute distress RESPIRATORY: Lungs sounds coarse throughout both lungs. Respirations even, nonlabored on mechanical ventilation. Current ventilator settings FiO2 60%, PEEP 13, tidal volume 350, respiratory rate 26. 8.0 ET tube present, 23 at the lip CARDIOVASCULAR: S1, S2 present. Slow but regular rate and rhythm, sinus bradycardia on telemetry. Doppler lower extremity pulses bilaterally. Bilateral lower extremity pitting edema present, Anson wraps present from toes to knees, SCDs present. GASTROINTESTINAL: Abdomen soft, nontender, nondistended. Active bowel sounds present 4 quadrants. Positive bowel movement 04/10/23. OG tube present, TF infusing at 29 mL/hr GENITOURINARY: Cameron catheter present draining clear yellow urine, output 2740 mL in the last 24 hours INTEGUMENTARY: Skin is warm and dry NEUROLOGIC: Currently sedated with propofol. Per nursing patient does squeeze hands and move all extremities despite propofol - Allied health notes Allied health notes reviewed: nursing - Labs CBC & Chem 7: 04/11/23 03:31 04/11/23 03:31 Labs: Abnormal Lab Results - Last 24 Hours (Table) 04/10/23 04/10/23 04/10/23 Range/Units 06:24 12:30 13:53 RBC (3.80-5.40) m/uL Hgb (11.4-16.0) gm/dL Hct (34.0-46.0) % Plt Count (150-450) k/uL APTT 56.3 H (22.0-30.0) sec ABG pH (7.35-7.45) ABG pO2 (83-108) mmHg ABG HCO3 (21-25) mmol/L ABG Total CO2 (19-24) mmol/L ABG O2 Saturation (94-97) % Chloride (98-107) mmol/L Carbon Dioxide (22-30) mmol/L BUN (7-17) mg/dL Glucose (74-99) mg/dL POC Glucose (mg/dL) 260 H (70-110) mg/dL Calcium (8.4-10.2) mg/dL Procalcitonin 0.18 H (0.02-0.09) ng/mL 04/10/23 04/11/23 04/11/23 Range/Units 18:38 00:14 03:31 RBC 3.54 L (3.80-5.40) m/uL Hgb 10.7 L (11.4-16.0) gm/dL Hct 32.1 L (34.0-46.0) % Plt Count 120 L (150-450) k/uL APTT (22.0-30.0) sec ABG pH (7.35-7.45) ABG pO2 (83-108) mmHg ABG HCO3 (21-25) mmol/L ABG Total CO2 (19-24) mmol/L ABG O2 Saturation (94-97) % Chloride (98-107) mmol/L Carbon Dioxide (22-30) mmol/L BUN (7-17) mg/dL Glucose (74-99) mg/dL POC Glucose (mg/dL) 296 H 133 H (70-110) mg/dL Calcium (8.4-10.2) mg/dL Procalcitonin (0.02-0.09) ng/mL 04/11/23 04/11/23 04/11/23 Range/Units 03:31 03:54 05:53 RBC (3.80-5.40) m/uL Hgb (11.4-16.0) gm/dL Hct (34.0-46.0) % Plt Count (150-450) k/uL APTT 66.4 H (22.0-30.0) sec ABG pH (7.35-7.45) ABG pO2 (83-108) mmHg ABG HCO3 (21-25) mmol/L ABG Total CO2 (19-24) mmol/L ABG O2 Saturation (94-97) % Chloride 95 L (98-107) mmol/L Carbon Dioxide 37 H (22-30) mmol/L BUN 28 H (7-17) mg/dL Glucose 123 H (74-99) mg/dL POC Glucose (mg/dL) 140 H (70-110) mg/dL Calcium 8.1 L (8.4-10.2) mg/dL Procalcitonin (0.02-0.09) ng/mL 04/11/23 Range/Units 06:29 RBC (3.80-5.40) m/uL Hgb (11.4-16.0) gm/dL Hct (34.0-46.0) % Plt Count (150-450) k/uL APTT (22.0-30.0) sec ABG pH 7.59 H* (7.35-7.45) ABG pO2 184 H (83-108) mmHg ABG HCO3 40 H* (21-25) mmol/L ABG Total CO2 42 H (19-24) mmol/L ABG O2 Saturation 100.0 H (94-97) % Chloride (98-107) mmol/L Carbon Dioxide (22-30) mmol/L BUN (7-17) mg/dL Glucose (74-99) mg/dL POC Glucose (mg/dL) (70-110) mg/dL Calcium (8.4-10.2) mg/dL Procalcitonin (0.02-0.09) ng/mL Microbiology - Last 24 Hours (Table) 04/08/23 09:00 Anaerobic Culture - Preliminary Pleural Fluid 04/08/23 09:00 Gram Stain - Preliminary Pleural Fluid Body Fluid Culture - Preliminary - Imaging and Cardiology Chest x-ray: report reviewed, image reviewed Assessment and Plan Assessment: Moderate to poorly differentiated pulmonary adenocarcinoma with 13 hilar lymph nodes positive for metastatic carcinoma status post robotic-assisted thoracoscopic left upper lobectomy with mediastinal lymph node dissection Postoperative paroxysmal atrial fibrillation currently sinus bradycardia Acute hypoxemic respiratory failure Worsening right lung possibly from aspiration Left lower lobe atelectasis and mucous plugging with tracheobronchial malacia status post multiple bronchoscopies Insulin dependent diabetes with poor glycemic control, hyperglycemia, A1c 8.8% Hypomagnesemia Current tobacco dependence with cessation prior to previous admission Moderate COPD, preoperative FEV1 54% of predicted, DLCO 36% of predicted Current daily EtOH use Hypertension Hyperlipidemia Stroke in 2016 with right-sided weakness Hepatitis B and C Bipolar depression History of IV heroin use with last use August 2018 Plan: Patient may eventually need Pleurx catheter for continued drainage of the left pleural space Ventilator management, will extubate when able, may need tracheostomy if unable to extubate Continue Mucomyst, bronchodilators, Pulmicort Daily sedation holiday Continue to monitor clinical course off antibiotics Will monitor daily labs and x-rays, monitor for final cultures and pathology GI/DVT prophylaxis Diabetic management per internal medicine, patient needs tighter blood sugar control Continue Amiodarone, will taper weekly, continue IV heparin Medical management of other comorbidities per primary care service, pulmonology Guarded prognosis More recommendations to follow based on patient's progress
[2023-04-11] MEDS: ATORVASTATIN 10 MG TAB PO SCH (09:40)
[2023-04-11] MEDS: CHLORHEXIDINE GLUCONATE 15 ML CUP MUCOUS MEM SCH ×2 (09:40→19:53)
[2023-04-11] MEDS: AMIODARONE 200 MG TAB PO SCH ×2 (09:40→19:53)
[2023-04-11] MEDS: PANTOPRAZOLE 40 MG TABLET PO SCH (09:40)
[2023-04-11] MEDS: guaiFENesin 600 MG TABLET.ER PO SCH ×2 (09:40→19:53)
[2023-04-11] MEDS: methylPREDNISolone SOD SUCCI 40 MG/ML 1 ML VIAL IV SCH (09:40)
[2023-04-11] MEDS: THIAMINE 100 MG TAB PO SCH (09:40)
[2023-04-11] MEDS: FOLIC ACID 1 MG TAB PO SCH (09:41)
[2023-04-11] MEDS: GABAPENTIN 400 MG CAP PO SCH ×3 (09:41→19:53)
[2023-04-11 11:53] LABS: Glucose,Whole Blood 225 mg/dL (70-110)
--- NOTE | 2023-04-11 12:04 | P.PN ---
Subjective Progress Note Date: 04/11/23 Principal diagnosis: Shortness of breath. Patient was evaluated today on 04/01/23, a is basically about the same, patient was seen by thoracic surgery and she was told that she will undergo bronchoscopy today. Patient is comfortable, chest x-ray all along has been showing complete opacification of the left lung, hopefully this bronchoscopy would be better than previous bronchoscopy and more beneficial however considering the patient already had 4 bronchoscopies and did not improve her lung condition, I doubt that this will. However this bronchoscopy is being done by thoracic surgery/Dr. June The patient is seen today 04/02/2023 in follow-up on the regular medical floor. She is currently sitting up in a chair. Awake and alert in no acute distress. She is maintaining good O2 saturations in the 90s on 2 L/m per nasal cannula. White count 8.1. Hemoglobin 10.4. Platelets 160. Sodium 135. Potassium 3.8. Bicarb 32. BUN 13. Creatinine 0.7. Glucose 164. Chest x-ray continues to show similar opacification of left lung will occur rectal secondary to atelecta sis and large pleural effusion. No pneumothorax visualized. Enlarging right pleural effusion now small to moderate. She did undergo bronchoscopy yesterday with Dr. June and the plan is to return for another bronchoscopy again today. She is continued on DuoNeb inhalations, Symbicort, Mucinex, Mucomyst, antibiotics in the form of Unasyn. Heparin for DVT prophylaxis. The patient is seen today 04/03/2023 in follow-up on the regular medical floor. She is currently sitting up in a chair at the bedside. Awake and alert in no acute distress. She is maintaining good O2 saturations in the 90s on 2 L/m per nasal cannula. Blood cultures reveal no growth. White count 6.8. Hemoglobin 11.7. Platelets 127. Sodium 136. Potassium 4.1. Bicarb 32. BUN 12. Creatinine 0.8. Glucose 149. Remains on antibiotics in the form of Unasyn. Continued on bronchodilators, Mucomyst, Mucinex. Continued on IV diuretics. Heparin for DVT prophylaxis. The patient is seen today 04/04/2023 in follow-up on the regular medical floor. She did utilize BiPAP through the night 10/5 and 30% FiO2. Otherwise utilizing oxygen at 3 L/m per nasal cannula. She did undergo another bronchoscopy with BAL per CT services today. Chest x-ray continues to show near complete white out of the left hemithorax. Small portion left upper lung mass remains aerated now. Ongoing small to moderate right effusion with adjacent atelectasis. She is encouraged regarding increased use the incentive spirometer. Increase activity as tolerated. Remains on antibiotics in the form of Unasyn. Remains on Symbicort, DuoNeb inhalations, Solu-Medrol, Mucinex and Mucomyst. Heparin for DVT prophylaxis. Remains on IV diuretics. Sodium 135. Potassium 4.6. Bicarb 31. BUN 13. Creatinine 0.55. Glucose 154. ProBNP 2910. Progress note dated 04/05/2023. 57-year-old female with a previous recent history of left upper lobectomy for lung cancer. The patient has been in and out of the hospital multiple times, is required multiple bronchoscopies, for left lung collapse. Currently, the patient is seen today in room 364. She is on 4 L of oxygen. She's getting saline at 10 mL an hour. Her most recent chest x-ray shows partial left lung collapse. Current labs include a sodium 136, potassium 3.9, chlorides 96, CO2 31, BUN 15, creatinine 0.56. Glucose is 198. Calcium is 8.2. Chest x-ray shows postsurgical volume loss, left hemithorax, with slight improvement overall. Progress note dated 04/06/2023. 57-year-old female, who is seen today in room 263. The patient was previously room 364. She underwent bronchoscopy today, with Dr. June, and came back, to the intensive care unit, on the mechanical ventilator. She's getting saline at 125 mL an hour. She is on propofol at 45 mcg/kg/m. Her ventilator settings include the volume assist control, rate 20, tidal volume 350, FiO2 50%, and PEEP of 5. I've asked the nurse, to have respiratory bump up the PEEP from 5 to 8 cm water, and increase the FiO2 up to 60%. Blood gases, on the previous setting show pO2 of 58, pCO2 54, and a pH is 7.41. That was on 50% FiO2, and 5 of PEEP. Additional labs include a white count of 7.1, hemoglobin 10.7, hematocrit 32.3, and a normal platelet count. Sodium 135, potassium 3.8, chlorides 96, CO2 31, BUN 20, creatinine 0.59. Progress note dated 04/07/2023. 57 year old female seen today in room 263. The patient had bronchoscopy done yesterday, by Dr. June. She came back to the intensive care unit, on the mechanical ventilator. This morning, I do another bronchoscopy on the patient, and remove thick mucus and secretions from the left lung area. Currently, the patient remains on the volume assist control, rate 20, tidal volume 350, FiO2 60%, and PEEP of 8. Blood gases show pO2 73, pCO2 of 52, and a pH is 7.43. The patient is currently on saline at 75 mL an hour, and propofol at 35 mcg/kg/m. In addition, the patient is on insulin at 2.05 units an hour. Prior to the bronchoscopy, the patient did receive paralytic common form of Nimbex, 15 mg. The patient will stay on the ventilator overnight, and have another bronchoscopy tomorrow, and one again on Wednesday. Current labs included a white count 7.5, hemoglobin 12, hematocrit 36.7, platelet count 148,000. Sodium 138, potassium 3.9, chlorides 98, CO2 32, BUN 21, creatinine 0.58. Albumin is 2.7. Chest x-ray shows volume loss in the left lung, infiltrate in the right lung, and an effusion on the left side. Progress note dated 04/08/2023. The patient is seen today in room 263. The patient had to procedure today, including a left-sided thoracentesis, were biceps 56 fluid was removed. Also, the patient had a repeat bronchoscopy. Currently, the patient remains on mechanical ventilator, with settings of volume assist control, rate 20, tidal volume 350, FiO2 60%, PEEP of 10. Blood gases done on the same settings, but instead, 5 of PEEP, show pO2 of 54, pCO2 60, pH is 7.37. The patient's on propofol, at 50 mcg/kg/m, saline at 75 mL an hour, and heparin, which was discontinued briefly, for the thoracentesis. She is also on vital high protein, at 10 mL an hour. White count is 8.5, hemoglobin 11.1, hematocrit 35, and platelet count is normal. Sodium 141, potassium 3.9, chlorides 99, CO2 31, BUN 25, creatinine 0.69. Glucose 267. Calcium 7.9, and magnesium is 2. Chest x- rays are reviewed. Progress note dated 04/09/2023. 57-year-old female seen again in the intensive care unit, room 263. The patient will have another bronchoscopy today. Yesterday, she had bronchoscopy, and left thoracentesis. I did speak to Dr. June about her. She remains on the ventilator. Ventilator settings include the volume assist control, rate 20, tidal volume 350, FiO2 70%, and PEEP of 10. Blood gases, on the same settings, but 60%, she'll pO2 of 56, pCO2 64, pH is 7.40. The patient remains on propofol at 45 mcg/kg/m, and heparin via weightbase protocol. The patient's getting saline at 20 mL an hour, and vital high protein at 29 mL an hour, which is goal. Her chest x-ray today shows evidence of recurrent left-sided effusion. White count 7.2, heme him 10.6, hematocrit 33.3, with a normal platelet count. Sodium 139, potassium 3.7, chlorides 97, CO2 33, BUN 23, and creatinine 0.69. Albumin is 2.7. Progress note dated 04/10/2023. 57-year-old female, seen again in room 263. The patient had a bronchoscopy y esterday. We had to increase the FiO2 up to 100%, and increase the PEEP up to 13, after the procedure, because of persistent and prolonged desaturation. Currently, she is on volume assist control, rate 26, tidal volume 350, FiO2 of 80%, brought down to 60%, and a PEEP of 13. Blood gases done on the 80% show pO2 177, pCO2 54, and a pH is 7.49. Patient remains on propofol at 50 mcg/kg/m, and heparin via weightbase protocol. The patient's also getting saline at KVO, and vital HP at 29 mL an hour, which is goal. White count 8.7, hemoglobin 11.4, hematocrit 35.2, with a normal platelet count. Sodium 140, potassium 4.3, chlorides 97, CO2 36, BUN 25, creatinine 0.57. Pro-calcitonin level is 0.18. N-terminal proBNP is 4540. Chest x-ray shows interstitial infiltrates throughout the right lung. There is an ongoing left hydropneumothorax. Progress note dated 04/11/2023. 57-year-old female, seen again in room 263. Currently, the patient remains on mechanical ventilator. Settings include the volume assist control, rate 26, tidal volume 350, FiO2 60%, PEEP of 13. Arterial blood gases are pO2 184, pCO2 42, and pH is 7.59. These blood gases revealed a post hypercapnic alkalosis. The patient's tidal volume will be unchanged, the rate is dropping 26, down to 20, he FiO2 was dropped to 60% down to 50%, dropped from 13, down to 10. We will do a daily interruption of sedation, and a spontaneous breathing trial, on pressure support of 10, CPAP of 5. The patient remains on saline at 20 mL an hour, propofol at 50 mcg/kg/m, and heparin via weightbase protocol. In addition, the patient's getting vital high protein at 29 mL an hour, which is goal. White count 7.9, hemoglobin 10.7, hematocrit 32 weight 1, platelet count is 120,000. PTT is 66.4. Sodium 138, potassium 4, chlorides 95, CO2 37, BUN 28, and creatinine 0.59. Glucose 225. Calcium is 8.1. Magnesium is 1.8. Ch est x-ray continues to show a moderate left-sided pleural effusion. Objective - Vital Signs Vital signs: Vital Signs Temp 98.8 F 04/11/23 08:00 Pulse 62 04/11/23 11:43 Resp 21 04/11/23 10:00 BP 141/56 04/11/23 10:00 Pulse Ox 97 04/11/23 10:00 FiO2 50 04/11/23 11:25 Intake & Output 04/10/23 04/11/23 04/11/23 18:59 06:59 18:59 Intake Total 157.267 6535.008 226 Output Total 1620 1120 625 Balance -736.214 19.008 -399 Weight 96.3 kg 98.3 kg Intake: IV 220 240 80 Sodium Chloride 0.9% 1, 220 240 80 000 ml @ 20 mls/hr IV . Q24H [facility] Rx#:[id number] Intake, IV Titration 315.786 403.008 Amount Heparin Sod,Pork in 0.45% 32.333 207.231 NaCl 25,000 unit In 0.45 % NaCl 1 250ml.bag @ 10. 07 UNITS/KG/HR 10 mls/hr IV .Q24H [facility] Rx#: [id number] propofoL 1,000 mg In 283.453 195.777 Empty Bag 1 bag @ 15 MCG/ KG/MIN 8.577 mls/hr IV . [id number] [facility] Rx#:[id number] Tube Feeding 348 406 116 Other 90 30 Output: Urine 1620 1120 625 Other: Voiding Method Indwelling Catheter Indwelling Catheter Indwelling Catheter # Bowel Movements 1 - Exam No acute distress, sedated, with an orally placed endotracheal tube, and NG tube. HEENT examination is grossly unremarkable. Neck supple. Full range of motion. No adenopathy thyromegaly or neck vein distention. Cardiovascular examination reveals regular rhythm rate. S1-S2 normal. No S3 or S4. No discernible murmur noted. Heart rate is 62 bpm. Lungs reveal diminished breath sounds on the left. Mild scattered rhonchi are noted. No wheezes or crackles. Right lung is clear. Saturations are 96 %. Abdomen soft bowel sounds are heard. No masses or tenderness. Extremities are intact. No cyanosis clubbing or edema. Skin is without rash or lesion. Neurologic examination cannot be currently assessed. - Labs CBC & Chem 7: 04/11/23 03:31 04/11/23 03:31 Labs: Abnormal Lab Results - Last 24 Hours (Table) 04/10/23 04/10/23 04/10/23 Range/Units 12:30 13:53 18:38 RBC (3.80-5.40) m/uL Hgb (11.4-16.0) gm/dL Hct (34.0-46.0) % Plt Count (150-450) k/uL APTT 56.3 H (22.0-30.0) sec ABG pH (7.35-7.45) ABG pO2 (83-108) mmHg ABG HCO3 (21-25) mmol/L ABG Total CO2 (19-24) mmol/L ABG O2 Saturation (94-97) % Chloride (98-107) mmol/L Carbon Dioxide (22-30) mmol/L BUN (7-17) mg/dL Glucose (74-99) mg/dL POC Glucose (mg/dL) 260 H 296 H (70-110) mg/dL Calcium (8.4-10.2) mg/dL 04/11/23 04/11/23 04/11/23 Range/Units 00:14 03:31 03:31 RBC 3.54 L (3.80-5.40) m/uL Hgb 10.7 L (11.4-16.0) gm/dL Hct 32.1 L (34.0-46.0) % Plt Count 120 L (150-450) k/uL APTT (22.0-30.0) sec ABG pH (7.35-7.45) ABG pO2 (83-108) mmHg ABG HCO3 (21-25) mmol/L ABG Total CO2 (19-24) mmol/L ABG O2 Saturation (94-97) % Chloride 95 L (98-107) mmol/L Carbon Dioxide 37 H (22-30) mmol/L BUN 28 H (7-17) mg/dL Glucose 123 H (74-99) mg/dL POC Glucose (mg/dL) 133 H (70-110) mg/dL Calcium 8.1 L (8.4-10.2) mg/dL 04/11/23 04/11/23 04/11/23 Range/Units 03:54 05:53 06:29 RBC (3.80-5.40) m/uL Hgb (11.4-16.0) gm/dL Hct (34.0-46.0) % Plt Count (150-450) k/uL APTT 66.4 H (22.0-30.0) sec ABG pH 7.59 H* (7.35-7.45) ABG pO2 184 H (83-108) mmHg ABG HCO3 40 H* (21-25) mmol/L ABG Total CO2 42 H (19-24) mmol/L ABG O2 Saturation 100.0 H (94-97) % Chloride (98-107) mmol/L Carbon Dioxide (22-30) mmol/L BUN (7-17) mg/dL Glucose (74-99) mg/dL POC Glucose (mg/dL) 140 H (70-110) mg/dL Calcium (8.4-10.2) mg/dL 04/11/23 Range/Units 11:50 RBC (3.80-5.40) m/uL Hgb (11.4-16.0) gm/dL Hct (34.0-46.0) % Plt Count (150-450) k/uL APTT (22.0-30.0) sec ABG pH (7.35-7.45) ABG pO2 (83-108) mmHg ABG HCO3 (21-25) mmol/L ABG Total CO2 (19-24) mmol/L ABG O2 Saturation (94-97) % Chloride (98-107) mmol/L Carbon Dioxide (22-30) mmol/L BUN (7-17) mg/dL Glucose (74-99) mg/dL POC Glucose (mg/dL) 225 H (70-110) mg/dL Calcium (8.4-10.2) mg/dL Microbiology - Last 24 Hours (Table) 04/08/23 09:00 Anaerobic Culture - Preliminary Pleural Fluid 04/08/23 09:00 Gram Stain - Preliminary Pleural Fluid Body Fluid Culture - Preliminary Assessment and Plan Assessment: Status post bronchoscopy, with suctioning of airway secretions, currently requiring intubation, and mechanical ventilation, 04/06/2023 and 04/07/2023, 04/08/2023, 04/09/2023 and left-sided thoracentesis on 04/08/2023. Left lung collapse, essentially the left lower lobe secondary to mucous plugs. Bronchoscopy was done during the earlier hospitalization the patient was found to have mucous plugs, significant tracheobronchomalacia, narrowing of the left lower lobe bronchial orifice. Currently on Unasyn. Plan is for daily bronchoscopy per CT services and placed on BiPAP 04/03/2023. Acute on chronic shortness of breath without any worsening in her hypoxemia. The patient's shortness of breath is multifactorial. Obviously she has undergone a left upper lobe resection. She has also complete atelectasis of left lower lobe and several attempts to reexpand the lung on the left has failed as the patient has significant tracheal bronchomalacia, mucus, Haemophilus influenza pneumonia and narrowing of the left lower lobe orifice as noted on several bronchoscopies. The left lung remains unchanged. The acute dec ompensation could be related to A. fib which is paroxysmal and the patient may have some interval worsening in her volume status. As such, the patient was hospitalized. ProBNP level is elevated. Persistent left lower lobe atelectasis. Computed tomography scan of the chest 03/30/2023 revealed increased consolidation and collapse of the left lower lobe with essentially no residual aerated lung seen. Small to moderate size left pleural effusion however pneumothorax component of this has essentially resolved. Small mucous secretions along the tracheal wall and thoracic inlet. Right hilar adenopathy likely present on prior unenhanced study and suspected unchanged. Moderate right pleural effusions. Previous right upper lobe groundglass infiltrates have resolved. Pulmonary adenocarcinoma with a 1.5 cm mass in the left upper lobe. On 03/15/2023 she had undergone a robotically assisted thoracoscopic left upper lobectomy with mediastinal lymph node dissection, for early stage NSCLC. The final pathologic staging is T1b N1 M0 disease. Acute hypoxic respiratory failure currently on 4 L of oxygen nasal cannula. Tracheobronchomalacia, severe. Paroxysmal atrial fibrillation. History of chronic obstructive pulmonary disease. Chronic tobacco dependence. History of CVA. History of diabetes mellitus. History of hypertension. History of hyperlipidemia. History of alcohol abuse and heroin abuse. History of hepatitis B and C. Plan: Plan dated 04/05/2023. The patient was seen and evaluated. The patient is currently on 4 L of oxygen. Saturations are 96%. The patient is receiving saline at 10 mL an hour. Labs, and x-rays are evaluated. Chest x-ray is about the same, or mildly improved. We will continue to follow make recommendations along the way. The patient will continue on bronchodilators, and BiPAP, as tolerated. The patient should also do incentive spirometer, every hour while awake, and be encouraged to deep breathe, cough, and clear secretions. We will continue to follow make recommendations where appropriate. Prognosis is guarded. Plan dated 04/06/2023. The patient returned back to the intensive care unit, on the mechanical ventil ator. Ventilator changes have been made. Gases have been evaluated. The patient is currently on propofol for sedation, at 45 mcg/kg/m. The patient's on saline at 125 mL an hour. Morning labs, x-rays, and blood gases will be done. Cardiothoracic surgery may wish to do bronchoscopy on this patient again tomorrow, and it will be easily facilitated, while the patient is on chemical ventilation. Additional recommendations and suggestions are forthcoming. Labs, x-rays, and medications are reviewed. Plan dated 04/07/2023. The patient had bronchoscopy today, in the intensive care unit, room 263. She was placed on a 100% oxygen. She received some Nimbex before the procedure. I think secretions from the left mainstem bronchus, and the left lower lobe bronchi. The patient tolerated the procedure well. The plan is to keep her on the ventilator, and Vincent or tomorrow, i.e. , as well as Wednesday. In addition, I will check an ultrasound of the left chest, consider thoracentesis, depending on whether or not there is enough fluid, to do the procedure safely. Labs, x-rays, and medications are reviewed. The patient remains on the ventilator. He is on propofol at 35 mcg/kg/m, and insulin at 2.05 units an hour. She's getting saline at 75 mL an hour. We will start tube feedings today. Additional recommendations and suggestions are forthcoming. Prognosis is guarded. Plan dated 04/08/2023. The patient has had bronchoscopy, pretty much every day. I did yesterday and ag ain today. Secretions were suctioned from the left lung. In addition, the patient had a left-sided thoracentesis today was 750 mL of fluid removed. The fluid was sent to laboratory for analysis. The patient tolerated the procedure well. The left lung does not fully expanded. The chest x-ray, though in my opinion, looks improved. We will continue to follow make recommendations along the way. Labs, x-rays, medications are reviewed. Gnosis is guarded. The patient continues on propofol, heparin, and tube feedings. The patient's also receiving saline at 75 mL an hour. Plan dated 04/09/2023. The patient will have another bronchoscopy today. Hopefully, the patient can be extubated this weekend. Cardiothoracic surgery is considering the possibility of placing a left-sided chest tube. Labs, x-rays, medications are reviewed. The patient had a left-sided thoracentesis yesterday, and 750 mL of fluid was removed. We will continue to follow the patient, make recommendations along the way. Prognosis is certainly guarded. The patient continues on appropriate medications including heparin, propofol, and tube feedings. Plan dated 04/10/2023. The patient's blood gases this morning were much improved, and the FiO2 was reduced down from 80%, down to 60%. We will continue to reduce the FiO2, to which it was safe level, at 50%. At that point, we'll start reducing the PEEP levels. Labs, x-rays, and medications are reviewed. The patient is receiving vital high protein at 29 mL an hour. The patient continues on propofol at 50 mcg/kg/m. Blood gases are reviewed. Labs, x-rays, and medications are reviewed. Prognosis is certainly guarded. Plan dated 04/11/2023. The patient did have a daily interruption of sedation today, and a spontaneous breathing trial, on 10 of pressure support, and 5 of CPAP. Unfortunately, according to the nurse, the patient became very agitated, very tachypnea, hypertensive, and saturations dropped down to the mid 80s. Hence, the patient was re-sedated. We will continue to follow the patient, make additional recommendations. Today, because of improved blood gases, the rate was dropping 26, down to 20, the FiO2 from 60% down to 50%, and the PEEP from 13, down to 10 cm water. The patient continues on heparin, and propofol. The patient also continues on tube feeds. Additional recommendations and suggestions are forthcoming. The patient may benefit from a chest tube on the left side. We'll leave that up to cardiothoracic surgery. Time with Patient: Greater than 30
--- NOTE | 2023-04-11 13:58 | P.PN ---
Subjective Progress Note Date: 04/11/23 Principal diagnosis: Paroxysmal atrial fibrillation The patient is a 57-year-old female patient who is currently intubated and she is on mechanical ventilation and we requested to see the patient for paroxysmal atrial fibrillation. The history was taken from the chart. Apparently the patient does have history of paroxysmal atrial fibrillation and she was receiving amiodarone orally and also she does have history of stroke and diabetes and hypertension and dyslipidemia and chronic obstructive pulmonary disease and drug abuse. The patient has been in the hospital for few days. 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 She was admitted to the hospital this time with what it seems to be related to pneumonia. Also she underwent bronchoscopy multiple times because of the collapse of the left lung. Currently she is intubated and she is on mechanical ventilation. We consulted to see the patient because she did have an episode of tachycardia yesterday. I did get the EKG which seems to be somewhat concerning for atrial fibrillation which is known to the patient from before. Currently she is back in normal sinus mechanism. For some reason the patient is not on any anticoagulation. Her hemoglobin is stable. I am going to consider starting the patient on heparin IV at this point and consider switching her to oral anticoagulation unless there is any contraindication from another aspects. Beside that continue the current medical regimen including the current dose of amiodarone. The examination is remarkable for stable vital signs with regular rhythm and distant heart sounds and imaged breathing sounds and mild bilateral lower extremity edema noted. 04/09/2023 The patient was seen and evaluated this morning. She continues to be intubated on mechanical ventilation but she is hemodynamically stable but she underwent bronchoscopy yesterday and she is possibly need to undergo another one today beach she has been maintaining normal sinus mechanism. She was started on heparin which we will continue at this point and consider switching the patient to oral anticoagulation once she does not need any other surgical/invasive procedures. The examination is remarkable for regular rhythm with distant heart sounds and bilateral expiratory wheezing and mild bilateral lower extremities edema noted. April 102023 The patient was seen and evaluated this morning she continues to be intubated on mechanical ventilation but she's hemodynamics is stable and she continues to be on heparin IV. We'll continue the current medical regimen beach she has been maintaining normal sinus mechanism. Consider starting the patient on oral anticoagulation was 10 she doesn't need any further procedures. The examination is remarkable for intubated patient with regular rhythm and soft systolic murmur and diminished breathing sounds bilaterally and no edema in the lower extremity edema April [id number] The patient was seen and evaluated this morning. She continues to be intubated on mechanical ventilation that she is definitely having upper and lower extremity edema and the chest x-ray showed at least moderate left pleural effusion. Currently she is on Lasix IV which I am going to increase at this point. Kidney function remains stable but she continues to be on heparin IV. The hemoglobin remained stable. The examination is remarkable for bilateral upper and lower extremity is edema. Assessment Acute respiratory failure Paroxysmal atrial fibrillation Hypertension/dyslipidemia/diabetes History of drug abuse Chronic obstructive pulmonary disease Plan Increase the dose of Lasix Continue current dose of heparin IV Continue the current medical regimen Follow-up with the patient Objective - Vital Signs Vital signs: Vital Signs Temp 98.6 F 04/11/23 12:00 Pulse 63 04/11/23 13:00 Resp 28 H 04/11/23 13:00 BP 142/64 04/11/23 13:00 Pulse Ox 94 L 04/11/23 13:00 FiO2 50 04/11/23 12:00 Intake & Output 04/10/23 04/11/23 04/11/23 18:59 06:59 18:59 Intake Total 558.630 8405.008 403 Output Total 1620 1120 875 Balance -736.214 19.008 -472 Weight 96.3 kg 98.3 kg Intake: IV 220 240 140 Sodium Chloride 0.9% 1, 220 240 140 000 ml @ 20 mls/hr IV . Q24H [facility] Rx#:[id number] Intake, IV Titration 315.786 403.008 Amount Heparin Sod,Pork in 0.45% 32.333 207.231 NaCl 25,000 unit In 0.45 % NaCl 1 250ml.bag @ 10. 07 UNITS/KG/HR 10 mls/hr IV .Q24H [facility] Rx#: [id number] propofoL 1,000 mg In 283.453 195.777 Empty Bag 1 bag @ 15 MCG/ KG/MIN 8.577 mls/hr IV . [id number] [facility] Rx#:[id number] Tube Feeding 348 406 203 Other 90 60 Output: Urine 1620 1120 875 Other: Voiding Method Indwelling Catheter Indwelling Catheter Indwelling Catheter # Bowel Movements 1 - Labs CBC & Chem 7: 01/14/24 03:31 04/11/23 03:31 Labs: Abnormal Lab Results - Last 24 Hours (Table) 04/10/23 04/10/23 04/11/23 Range/Units 13:53 18:38 00:14 RBC (3.80-5.40) m/uL Hgb (11.4-16.0) gm/dL Hct (34.0-46.0) % Plt Count (150-450) k/uL APTT 56.3 H (22.0-30.0) sec ABG pH (7.35-7.45) ABG pO2 (83-108) mmHg ABG HCO3 (21-25) mmol/L ABG Total CO2 (19-24) mmol/L ABG O2 Saturation (94-97) % Chloride (98-107) mmol/L Carbon Dioxide (22-30) mmol/L BUN (7-17) mg/dL Glucose (74-99) mg/dL POC Glucose (mg/dL) 296 H 133 H (70-110) mg/dL Calcium (8.4-10.2) mg/dL 04/11/23 04/11/23 04/11/23 Range/Units 03:31 03:31 03:54 RBC 3.54 L (3.80-5.40) m/uL Hgb 10.7 L (11.4-16.0) gm/dL Hct 32.1 L (34.0-46.0) % Plt Count 120 L (150-450) k/uL APTT 66.4 H (22.0-30.0) sec ABG pH (7.35-7.45) ABG pO2 (83-108) mmHg ABG HCO3 (21-25) mmol/L ABG Total CO2 (19-24) mmol/L ABG O2 Saturation (94-97) % Chloride 95 L (98-107) mmol/L Carbon Dioxide 37 H (22-30) mmol/L BUN 28 H (7-17) mg/dL Glucose 123 H (74-99) mg/dL POC Glucose (mg/dL) (70-110) mg/dL Calcium 8.1 L (8.4-10.2) mg/dL 04/11/23 04/11/23 04/11/23 Range/Units 05:53 06:29 11:50 RBC (3.80-5.40) m/uL Hgb (11.4-16.0) gm/dL Hct (34.0-46.0) % Plt Count (150-450) k/uL APTT (22.0-30.0) sec ABG pH 7.59 H* (7.35-7.45) ABG pO2 184 H (83-108) mmHg ABG HCO3 40 H* (21-25) mmol/L ABG Total CO2 42 H (19-24) mmol/L ABG O2 Saturation 100.0 H (94-97) % Chloride (98-107) mmol/L Carbon Dioxide (22-30) mmol/L BUN (7-17) mg/dL Glucose (74-99) mg/dL POC Glucose (mg/dL) 140 H 225 H (70-110) mg/dL Calcium (8.4-10.2) mg/dL Microbiology - Last 24 Hours (Table) 04/08/23 09:00 Anaerobic Culture - Preliminary Pleural Fluid
[2023-04-11] MEDS: FUROSEMIDE 10 MG/ML 4 ML VIAL IV SCH ×2 (15:25→19:53)
[2023-04-11] MEDS ORDERED: DILTIAZEM 125 MG in SODIUM CHLORIDE 0.9% 100 ML IV SCH (16:45)
[2023-04-11 18:04] LABS: Glucose,Whole Blood 257 mg/dL (70-110)
[2023-04-11 23:48] LABS: Glucose,Whole Blood 189 mg/dL (70-110)
[2023-04-12 02:38] LABS: Glucose,Whole Blood 136 mg/dL (70-110)
[2023-04-12 04:03] LABS: HGB 10.7 gm/dL (11.4-16.0); Hypochromasia Moderate; MCH 30.8 pg (25.0-35.0); MCHC 32.6 g/dL (31.0-37.0); MCV 94.7 fL (80.0-100.0); Platelet Count 161 k/uL (150-450); Poikilocytosis Slight; RBC 3.48 m/uL (3.80-5.40); RDW 13.5 % (11.5-15.5); WBC 7.7 k/uL (3.8-10.6)
[2023-04-12 04:04] LABS: ABG Base Excess 20.3 mmol/L; ABG Oxygen Saturation 93.7 % (94-97); ABG PCO2 52 mmHg (35-45); ABG PH 7.53 (7.35-7.45); ABG PO2 61 mmHg (83-108); ABG TCO2 45 mmol/L (19-24); Allen Test Performed? Yes
[2023-04-12 04:21] LABS: ABG HCO3 43 mmol/L (21-25)
[2023-04-12] MEDS: FUROSEMIDE 10 MG/ML 4 ML VIAL IV SCH ×3 (05:09→20:49)
[2023-04-12 05:36] LABS: Glucose,Whole Blood 158 mg/dL (70-110)
[2023-04-12] MEDS: INSULIN ASPART (NovoLOG) 100 UNIT/ML VIAL SQ SCH ×3 (05:38→18:13)
[2023-04-12 06:05] LABS: African American GFR (CKD) >90 (>60 ml/min/1.73 sqM); Anion Gap 5 mmol/L; Blood Urea Nitrogen 26 mg/dL (7-17); Carbon Dioxide 39 mmol/L (22-30); Chloride 96 mmol/L (98-107); Glucose 144 mg/dL (74-99); Magnesium 1.8 mg/dL (1.6-2.3); Non-African American GFR(CKD) >90 (>60 ml/min/1.73 sqM); Potassium 3.5 mmol/L (3.5-5.1); Sodium 140 mmol/L (137-145)
[2023-04-12] MEDS ORDERED: MAGNESIUM SULFATE-D5W PMX 1 GM in DEXTROSE/WATER 1 100ML.BAG IVPB ONE (06:25)
[2023-04-12] MEDS: POTASSIUM CHLORIDE 20 MEQ in WATER FOR INJECTION 1 100ML.BAG IVPB SCH ×2 (06:40→09:59)
[2023-04-12] MEDS: INSULIN DETEMIR (LEVEMIR) 100 UNIT/ML SYR SQ SCH ×2 (06:48→20:49)
[2023-04-12] MEDS: FORMOTEROL FUMARATE 20 MCG/2 ML NEBU INHALATION SCH ×2 (07:41→20:07)
[2023-04-12] MEDS: ACETYLCYSTEINE 800 MG/4 ML VIAL INHALATION SCH ×3 (07:41→20:07)
[2023-04-12] MEDS: BUDESONIDE 1 MG/2 ML NEBU INHALATION SCH ×2 (07:41→20:07)
[2023-04-12] MEDS: IPRATROPIUM-ALBUTEROL 3 ML NEB INHALATION SCH ×4 (07:41→20:07)
--- NOTE | 2023-04-12 07:44 | PN ---
PROGRESS NOTE DATE OF SERVICE: 04/11/2023 SUBJECTIVE: This is a 57-year-old woman, who was admitted with acute hypoxic respiratory failure, is on mechanical ventilation, patient had multiple bronchoscopies, and the patient also had a pneumothorax also, the most recent chest x-ray showed some pleural effusion on the left side. PAST MEDICAL HISTORY: Reviewed. REVIEW OF SYSTEMS: Could not be taken, the patient is on mechanical ventilation at tidal volume 350 and 60% FiO2 and 13 of PEEP. CURRENT MEDICATIONS: Reviewed. PHYSICAL EXAMINATION: VITAL SIGNS: Pulse is n respirations 26. CHEST: Few scattered rhonchi. ABDOMEN: Soft. NERVOUS SYSTEM: The patient is sedated. LABS: ABGs, pH of 7.59, rest of the labs are noted. ASSESSMENT: 1. Acute hypoxic respiratory failure, multifactorial, on mechanical ventilation. 2. Left lung collapse. 3. Bilateral pleural effusion, left more than the right. 4. Acute hypoxic respiratory failure. 5. Paroxysmal atrial fibrillation. 6. Chronic obstructive pulmonary disease, acute exacerbation. 7. Pulmonary adenocarcinoma. 8. Possible infiltrates on the right side. 9. Elevated procalcitonin. RECOMMENDATIONS: Recommend to continue current management, continue symptomatic treatment, otherwise, at this time I would recommend continue with current medications. Continue with bronchodilators. Closely follow with Pulmonary. Chest x-ray reviewed. The prognosis is guarded. Further recommendations to follow. MMMALIKL / IJN: [id number] / MTDD
--- NOTE | 2023-04-12 07:53 | P.PN ---
Subjective Progress Note Date: 04/12/23 Principal diagnosis: Shortness of breath, rapid atrial fibrillation present on admission, worsening right lung possibly from aspiration. History of moderate to poorly differentiate d pulmonary adenocarcinoma with 13 hilar lymph nodes positive for metastatic carcinoma status post robotic-assisted thoracoscopic left upper lobectomy with mediastinal lymph node dissection, postoperative paroxysmal atrial fibrillation, left lower lobe atelectasis and mucous plugging with tracheobronchial malacia status post bronchoscopy 3, insulin dependent diabetes with poor glycemic control, hypomagnesemia, current tobacco dependence with cessation prior to previous admission, moderate COPD, current daily EtOH use, hypertension, hyperlipidemia, stroke in 2016 with right-sided weakness, hepatitis B and C, bipolar depression, IV heroin use 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 Remains intubated and sedated. Remains sinus bradycardia with heart rate in the 50s, hemodynamically stable. Did have a very brief episode of rapid A. fib yesterday which was treated with Cardizem by cardiology. Patient has undergone multiple bronchoscopies, last bronch was Wednesday during which patient became hypoxic requiring increase in FiO2 and PEEP, FiO2 has been weaned back down, currently FiO2 50%, PEEP @ 10, oxygen saturation in the low 90s. In addition she had a left-sided thoracentesis with removal of 750 mL fluid which was sent for cytology and culture, preliminary Gram stain negative, final results. CXR reviewed, patient does have underlying trapped left lung with accumulation of pleural fluid and persistent diffuse interstitial opacities throughout the right lung, potentially from aspiration, left effusion appears worse today. IV Lasix increased yesterday by cardiology with more than 4 L urine output in the last 24 hours. Ventilator adjustments made by pain medicine physician, patient was given sedation holiday yesterday and attempted CPAP however patient became agitated, tachypneic, hypoxic so she was placed back to full vent support. Steroids being tapered. Continues on IV heparin due to paroxysmal atrial fibrillation, remains on oral amiodarone which is being tapered. Tube feeding infusing at goal. No other new concerns. Objective - Vital Signs Vital signs: Vital Signs Temp 99.4 F 04/12/23 04:00 Pulse 61 04/12/23 07:00 Resp 20 04/12/23 07:00 BP 138/56 04/12/23 07:00 Pulse Ox 92 L 01/15/24 07:00 FiO2 50 04/12/23 04:00 Intake & Output 04/11/23 04/12/23 04/12/23 18:59 06:59 18:59 Intake Total 982.250 829.492 20 Output Total 2240 2465 300 Balance -1257.750 -1635.508 -280 Weight 91.8 kg Intake: IV 240 440 20 Magnesium Sulfate-D5w Pmx 100 1 gm In Dextrose/Water 1 100ml.bag @ 100 mls/hr IVPB ONCE ONE Rx#: [id number] Potassium Chloride 20 meq 100 In Water For Injection 1 100ml.bag @ 50 mls/hr IVPB Q2H [facility] Rx#: [id number] Sodium Chloride 0.9% 1, 240 240 20 000 ml @ 20 mls/hr IV . Q24H [facility] Rx#:[id number] Intake, IV Titration 304.250 243.492 Amount Diltiazem 125 mg In 4.25 Sodium Chloride 0.9% 100 ml @ Per Protocol IV .Q0M [facility] Rx#:[id number] propofoL 1,000 mg In 300.000 243.492 Empty Bag 1 bag @ 15 MCG/ KG/MIN 8.577 mls/hr IV . [id number] [facility] Rx#:[id number] Tube Feeding 348 116 Other 90 30 Output: Urine 2240 2465 300 Other: Voiding Method Indwelling Catheter Indwelling Catheter - Exam CONSTITUTIONAL: Remains sedated and intubated, no acute distress RESPIRATORY: Lungs sounds diminished in the left lung base. Respirations even, nonlabored on mechanical ventilation. Current ventilator settings FiO2 50%, PEEP 10, tidal volume 350, respiratory rate 20. Patient is breathing over the ventilator. 8.0 ET tube present, 23 at the lip CARDIOVASCULAR: S1, S2 present. Slow but regular rate and rhythm, sinus bradycardia on telemetry. Doppler lower extremity pulses bilaterally. Bilateral lower extremity pitting edema present, Anson wraps present from toes to knees, SCDs present. GASTROINTESTINAL: Abdomen soft, nontender, nondistended. Active bowel sounds present 4 quadrants. Positive bowel movement 04/10/23. OG tube present, TF infusing at 29 mL/hr GENITOURINARY: Cameron catheter present draining clear yellow urine, output 4355 mL in the last 24 hours INTEGUMENTARY: Skin is warm and dry NEUROLOGIC: Currently sedated with propofol. Patient does open her eyes, moving left arm and leg to command, not moving right side currently although per nursing she does move the right side off sedation - Allied health notes Allied health notes reviewed: nursing - Labs CBC & Chem 7: 04/12/23 03:16 04/12/23 03:16 Labs: Abnormal Lab Results - Last 24 Hours (Table) 04/11/23 04/11/23 04/11/23 Range/Units 11:50 18:02 23:45 RBC (3.80-5.40) m/uL Hgb (11.4-16.0) gm/dL Hct (34.0-46.0) % APTT (22.0-30.0) sec ABG pH (7.35-7.45) ABG pCO2 (35-45) mmHg ABG pO2 (83-108) mmHg ABG HCO3 (21-25) mmol/L ABG Total CO2 (19-24) mmol/L ABG O2 Saturation (94-97) % Chloride (98-107) mmol/L Carbon Dioxide (22-30) mmol/L BUN (7-17) mg/dL Glucose (74-99) mg/dL POC Glucose (mg/dL) 225 H 257 H 189 H (70-110) mg/dL Calcium (8.4-10.2) mg/dL 04/12/23 04/12/23 04/12/23 Range/Units 02:36 03:16 03:16 RBC (3.80-5.40) m/uL Hgb (11.4-16.0) gm/dL Hct (34.0-46.0) % APTT 51.4 H (22.0-30.0) sec ABG pH (7.35-7.45) ABG pCO2 (35-45) mmHg ABG pO2 (83-108) mmHg ABG HCO3 (21-25) mmol/L ABG Total CO2 (19-24) mmol/L ABG O2 Saturation (94-97) % Chloride 96 L (98-107) mmol/L Carbon Dioxide 39 H (22-30) mmol/L BUN 26 H (7-17) mg/dL Glucose 144 H (74-99) mg/dL POC Glucose (mg/dL) 136 H (70-110) mg/dL Calcium 8.0 L (8.4-10.2) mg/dL 04/12/23 04/12/23 04/12/23 Range/Units 03:16 04:00 05:34 RBC 3.48 L (3.80-5.40) m/uL Hgb 10.7 L (11.4-16.0) gm/dL Hct 33.0 L (34.0-46.0) % APTT (22.0-30.0) sec ABG pH 7.53 H (7.35-7.45) ABG pCO2 52 H (35-45) mmHg ABG pO2 61 L (83-108) mmHg ABG HCO3 43 H* (21-25) mmol/L ABG Total CO2 45 H (19-24) mmol/L ABG O2 Saturation 93.7 L (94-97) % Chloride (98-107) mmol/L Carbon Dioxide (22-30) mmol/L BUN (7-17) mg/dL Glucose (74-99) mg/dL POC Glucose (mg/dL) 158 H (70-110) mg/dL Calcium (8.4-10.2) mg/dL Microbiology - Last 24 Hours (Table) 04/10/23 13:53 Blood Culture - Preliminary Blood 04/08/23 09:00 Gram Stain - Preliminary Pleural Fluid Body Fluid Culture - Preliminary - Imaging and Cardiology Chest x-ray: image reviewed Assessment and Plan Assessment: Moderate to poorly differentiated pulmonary adenocarcinoma with 13 hilar lymph nodes positive for metastatic carcinoma status post robotic-assisted thoracoscopic left upper lobectomy with mediastinal lymph node dissection Postoperative paroxysmal atrial fibrillation currently sinus bradycardia Acute hypoxemic respiratory failure Worsening right lung possibly from aspiration Left lower lobe atelectasis and mucous plugging with tracheobronchial malacia status post multiple bronchoscopies Insulin dependent diabetes with poor glycemic control, hyperglycemia, A1c 8.8% Hypomagnesemia Current tobacco dependence with cessation prior to previous admission Moderate COPD, preoperative FEV1 54% of predicted, DLCO 36% of predicted Current daily EtOH use Hypertension Hyperlipidemia Stroke in 2016 with right-sided weakness Hepatitis B and C Bipolar depression History of IV heroin use with last use August 2018 Plan: Patient likely will need Pleurx catheter for continued drainage of the left pleural space Ventilator management, will extubate when able, may need tracheostomy if unable to extubate Continue Mucomyst, bronchodilators, Pulmicort Daily sedation holiday Continue to monitor clinical course off antibiotics Will monitor daily labs and x-rays, monitor for final cultures and pathology GI/DVT prophylaxis Diabetic management per internal medicine, patient needs tight blood sugar control Continue Amiodarone, will taper weekly, continue IV heparin Medical management of other comorbidities per primary care service, pulmonology Guarded prognosis More recommendations to follow based on patient's progress
--- NOTE | 2023-04-12 08:21 | XR ---
EXAMINATION TYPE: XR chest 1V portable DATE OF EXAM: 04/12/2023 COMPARISON: 04/11/1999 HISTORY: Shortness TECHNIQUE: Single frontal view of the chest is obtained. FINDINGS: ET and NG tube stable. There is a increasing pleural fluid on the left with a large effusi on now seen. Calcified granuloma right hilum. Bilateral consolidation and pleural effusion. Bilateral shoulder arthropathy. Degenerative change of the spine. IMPRESSION: 1. Increasing right-sided pleural effusion with a large effusion now seen in near complete opacity in the thorax. 2. Correlate for CHF.
--- NOTE | 2023-04-12 08:52 | P.PN ---
Subjective Progress Note Date: 04/12/23 04/12/2023, the patient is being seen for a follow-up. Note that the patient had a very complicated postoperative course following resection of a left upper lobe adenocarcinoma. The patient was noted to have adenocarcinoma of the left upper lobe and the patient underwent a robotic assisted thoracoscopic left upper lobe lobectomy along with mediastinal lymph node dissection. The patient was found to have T1b N1 M0 disease. Postoperative course was complicated by recurrent atelectasis of the left lower lobe which was attributed to pneumonia, mucous plugs, COPD and severe tracheobronchomalacia. The patient required multiple bronchoscopies with some partial reexpansion of the left lung. The patient was also covered with a broad-spectrum antibiotics. She is known to have COPD, tracheobronchomalacia, hypertension, hyperlipidemia and previous history of CVA back in 2016 that the resultant right-sided weakness. The patient also has hepatitis B, hepatitis C, bipolar disorder and history of depression. She has previous history of IV heroin use and her last usage was in August 2018. She was briefly discharged home to be readmitted for worsening shortness of breath. She ultimately went into respiratory failure during the second hospitalization and for now, the patient remains intubated and mechanically ventilated. On today's evaluation, the patient is on propofol and the patient is also on assist-control mode of mechanical ventilation with a rate of 20, tidal volume of 350, FiO2 of 5 0% with a PEEP of 10. Propofol is running at 50 mcg/kg/min. Chest x-ray shows evidence of a left upper lobe lobectomy, moderate left-sided pleural effusion along with a small right-sided pleural effusion. ET tube is in a good location. NG tube also in good location. The blood gas from this morning shows a pH of 7.53 with a pCO2 of 52 and pO2 of 61. She is currently in normal sinus rhythm. She remains on IV heparin. In terms of cultures, most of the bronchial cultures came back negative with exception of a lavage that was obtained back in 03/23/2023 that showed haemophilus influenza. The patient is currently not on DuoNeb updrafts, Mucomyst, in addition to a combination of budesonide and Pulmicort. She is not receiving any antibiotics for now. She remains on IV Solu-Medrol 30 mg every 24 hours. SHe was having atrial fibrillation and she is back to sinus, she remains on IV heparin, amiodarone 200 mg p.o. daily and Cardizem dripn is off . The patient is also on Levemir insulin 8 units twice daily and NovoLog sliding scale coverage. She is afebrile. She remains of antibiotics for now. She is receiving enteral feeding for nutritional support. The patient is receiving vital high-protein at the rate of 29 mL an hour. IV fluids are in the form of 0.9 at 20 mL an hour. Sodium is at 140, potassium 3.5, bicarbonate 36, BUN is at 26 and a creatinine of 0.6. Nevertheless, 7.7, hemoglobin was at 10.7 and a platelet count is at 161. She is on no pressors. Objective - Vital Signs Vital signs: Vital Signs Temp 99.4 F 04/12/23 04:00 Pulse 64 04/12/23 08:11 Resp 20 04/12/23 07:00 BP 138/56 04/12/23 07:00 Pulse Ox 92 L 04/12/23 07:00 FiO2 50 04/12/23 07:50 Intake & Output 04/11/23 04/12/23 04/12/23 18:59 06:59 18:59 Intake Total 982.250 829.492 20 Output Total 2240 2465 300 Balance -1257.750 -1635.508 -280 Weight 91.8 kg Intake: IV 240 440 20 Magnesium Sulfate-D5w Pmx 100 1 gm In Dextrose/Water 1 100ml.bag @ 100 mls/hr IVPB ONCE ONE Rx#: [id number] Potassium Chloride 20 meq 100 In Water For Injection 1 100ml.bag @ 50 mls/hr IVPB Q2H [facility] Rx#: [id number] Sodium Chloride 0.9% 1, 240 240 20 000 ml @ 20 mls/hr IV . Q24H [facility] Rx#:[id number] Intake, IV Titration 304.250 243.492 Amount Diltiazem 125 mg In 4.25 Sodium Chloride 0.9% 100 ml @ Per Protocol IV .Q0M [facility] Rx#:[id number] propofoL 1,000 mg In 300.000 243.492 Empty Bag 1 bag @ 15 MCG/ KG/MIN 8.577 mls/hr IV . [id number] [facility] Rx#:[id number] Tube Feeding 348 116 Other 90 30 Output: Urine 2240 2465 300 Other: Voiding Method Indwelling Catheter Indwelling Catheter - Exam No acute distress, sedated, with an orally placed endotracheal tube, and NG tube. HEENT examination is grossly unremarkable. Neck supple. Full range of motion. No adenopathy thyromegaly or neck vein distention. Cardiovascular examination reveals regular rhythm rate. S1-S2 normal. No S3 or S4. No discernible murmur noted. Lungs reveal diminished breath sounds on the left. Mild scattered rhonchi are noted. No wheezes or crackles. Right lung is clear. Abdomen soft bowel sounds are heard. No masses or tenderness. Extremities are intact. No cyanosis clubbing or edema. Skin is without rash or lesion. Neurologic examination cannot be currently assessed. - Labs CBC & Chem 7: 04/12/23 03:16 04/12/23 03:16 Labs: Abnormal Lab Results - Last 24 Hours (Table) 04/11/23 04/11/23 04/11/23 Range/Units 11:50 18:02 23:45 RBC (3.80-5.40) m/uL Hgb (11.4-16.0) gm/dL Hct (34.0-46.0) % APTT (22.0-30.0) sec ABG pH (7.35-7.45) ABG pCO2 (35-45) mmHg ABG pO2 (83-108) mmHg ABG HCO3 (21-25) mmol/L ABG Total CO2 (19-24) mmol/L ABG O2 Saturation (94-97) % Chloride (98-107) mmol/L Carbon Dioxide (22-30) mmol/L BUN (7-17) mg/dL Glucose (74-99) mg/dL POC Glucose (mg/dL) 225 H 257 H 189 H (70-110) mg/dL Calcium (8.4-10.2) mg/dL 04/12/23 04/12/23 04/12/23 Range/Units 02:36 03:16 03:16 RBC (3.80-5.40) m/uL Hgb (11.4-16.0) gm/dL Hct (34.0-46.0) % APTT 51.4 H (22.0-30.0) sec ABG pH (7.35-7.45) ABG pCO2 (35-45) mmHg ABG pO2 (83-108) mmHg ABG HCO3 (21-25) mmol/L ABG Total CO2 (19-24) mmol/L ABG O2 Saturation (94-97) % Chloride 96 L (98-107) mmol/L Carbon Dioxide 39 H (22-30) mmol/L BUN 26 H (7-17) mg/dL Glucose 144 H (74-99) mg/dL POC Glucose (mg/dL) 136 H (70-110) mg/dL Calcium 8.0 L (8.4-10.2) mg/dL 04/12/23 04/12/23 04/12/23 Range/Units 03:16 04:00 05:34 RBC 3.48 L (3.80-5.40) m/uL Hgb 10.7 L (11.4-16.0) gm/dL Hct 33.0 L (34.0-46.0) % APTT (22.0-30.0) sec ABG pH 7.53 H (7.35-7.45) ABG pCO2 52 H (35-45) mmHg ABG pO2 61 L (83-108) mmHg ABG HCO3 43 H* (21-25) mmol/L ABG Total CO2 45 H (19-24) mmol/L ABG O2 Saturation 93.7 L (94-97) % Chloride (98-107) mmol/L Carbon Dioxide (22-30) mmol/L BUN (7-17) mg/dL Glucose (74-99) mg/dL POC Glucose (mg/dL) 158 H (70-110) mg/dL Calcium (8.4-10.2) mg/dL Microbiology - Last 24 Hours (Table) 04/08/23 09:00 Gram Stain - Final Pleural Fluid Body Fluid Culture - Final 04/10/23 13:53 Blood Culture - Preliminary Blood Assessment and Plan Plan: Acute on chronic shortness of breath without any worsening in her hypoxemia. The patient's shortness of breath is multifactorial. The patient is post op for a left upper lobe resection. She has also complete atelectasis of left lower lobe and several attempts to reexpand the lung on the left has failed as the patient has significant tracheal bronchomalacia, mucus, Haemophilus influenza pneumonia and narrowing of the left lower lobe orifice as noted on several bronchoscopies. The patient was reintubated on 04/06/2023 and she has been on a mechanical ventilator since. The last bronchoscopy was done on 04/09/2023, cultures are negative Pulmonary adenocarcinoma with a 1.5 cm mass in the left upper lobe. Surgery was done on and the patient has a final pathologic staging is T1b N1 M0 disease. Left lung collapse, essentially the left lower lobe secondary to mucous plugs. Bronchoscopy was done during the early hospitalization the patient was found to have mucous plugs, significant tracheal bronchomalacia, narrowing of the left lower lobe bronchial orifice. There is only a small left-sided pleural effusion and the left lung base. left-sided pleural effusion, Postthoracentesis done on 04/08/2023 with removal of 750 cc of pleural fluid, awaiting final cytology. Tracheobronchomalacia, severe New-onset atrial fibrillation with rapid ventricular response, started on 03/22/2023. The patient continued to have episodes of PAF and currently she is presenting with the same. She is in sinus History of chronic obstructive pulmonary disease. History of CVA. History of diabetes mellitus. History of hypertension. History of hyperlipidemia. History of alcohol abuse and heroin abuse. History of hepatitis B and C. Plan Continue ventilator support, no changes for today Chest x-ray was noted and the patient has small right-sided pleural effusion, left lung is atelectatic and doesn't Of the Left Mainstem Bronchus. Minimal A mount of aeration of the left lung. There is also pleural fluid on the left lung base. Most recent cultures from the lungs are negative Cardiac rhythm is sinus Failed the weaning attempts yesterday Keep the patient has sedation for now Keep the patient off Cardizem drip Continue Lasix 40 mg every 8 hours and the fluid balance is -2.8 L over the past 24 hours IV fluids to KVO We will discuss the need for a left-sided chest tube insertion with cardiothoracic team Condition is critical and will continue to follow Continue supportive care Critical care evaluation was done in more than 30 minutes Time with Patient: Greater than 30
[2023-04-12] MEDS: CHLORHEXIDINE GLUCONATE 15 ML CUP MUCOUS MEM SCH ×2 (09:58→20:48)
[2023-04-12] MEDS: GABAPENTIN 400 MG CAP PO SCH ×3 (09:58→20:49)
[2023-04-12] MEDS: SODIUM CHLORIDE 0.9% 1,000 ML IV SCH (09:59)
[2023-04-12] MEDS: THIAMINE 100 MG TAB PO SCH (09:59)
[2023-04-12] MEDS: SENNOSIDES 8.6 MG TAB PO SCH ×2 (09:59→20:45)
[2023-04-12] MEDS: predniSONE 20 MG TAB PO SCH (09:59)
[2023-04-12] MEDS: FOLIC ACID 1 MG TAB PO SCH (09:59)
[2023-04-12] MEDS: AMIODARONE 200 MG TAB PO SCH ×2 (09:59→20:49)
[2023-04-12] MEDS: guaiFENesin 600 MG TABLET.ER PO SCH ×2 (09:59→20:49)
[2023-04-12] MEDS: ATORVASTATIN 10 MG TAB PO SCH (09:59)
[2023-04-12] MEDS: HEPARIN SOD,PORK IN 0.45% NACL 25,000 UNIT in 0.45% NACL 1 250ML.BAG IV SCH (10:00)
[2023-04-12] MEDS: PANTOPRAZOLE 40 MG TABLET PO SCH (10:00)
[2023-04-12 11:39] LABS: Glucose,Whole Blood 248 mg/dL (70-110)
--- NOTE | 2023-04-12 15:14 | P.PN ---
Subjective Progress Note Date: 04/12/23 HPI The patient is a 57-year-old female patient who is currently intubated and she is on mechanical ventilation and we requested to see the patient for paroxysmal atrial fibrillation. The history was taken from the chart. Apparently the patient does have history of paroxysmal atrial fibrillation and she was receiving amiodarone orally and also she does have history of stroke and diabetes and hypertension and dyslipidemia and chronic obstructive pulmonary disease and drug abuse. The patient has been in the hospital for few days. 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 She was admitted to the hospital this time with what it seems to be related to pneumonia. Also she underwent bronchoscopy multiple times because of the collapse of the left lung. Currently she is intubated and she is on mechanical ventilation. We consulted to see the patient because she did have an episode of tachycardia yesterday. I did get the EKG which seems to be somewhat concerning for atrial fibrillation which is known to the patient from before. Currently she is back in normal sinus mechanism. For some reason the patient is not on any anticoagulation. Her hemoglobin is stable. I am going to consider starting the patient on heparin IV at this point and consider switching her to oral anticoagulation unless there is any contraindication from another aspects. Beside that continue the current medical regimen including the current dose of amiodarone. The examination is remarkable for stable vital signs with regular rhythm and distant heart sounds and imaged breathing sounds and mild bilateral lower extremity edema noted. 04/09/2023 The patient was seen and evaluated this morning. She continues to be intubated on mechanical ventilation but she is hemodynamically stable but she underwent bronchoscopy yesterday and she is possibly need to undergo another one today beach she has been maintaining normal sinus mechanism. She was started on heparin which we will continue at this point and consider switching the patient to oral anticoagulation once she does not need any other surgical/invasive procedures. The examination is remarkable for regular rhythm with distant heart sounds and bilateral expiratory wheezing and mild bilateral lower extremities edema noted. April [id number] The patient was seen and evaluated this morning she continues to be intubated on mechanical ventilation but she's hemodynamics is stable and she continues to be on heparin IV. We'll continue the current medical regimen beach she has been maintaining normal sinus mechanism. Consider starting the patient on oral anticoagulation was 10 she doesn't need any further procedures. The examination is remarkable for intubated patient with regular rhythm and soft systolic murmur and diminished breathing sounds bilaterally and no edema in the lower extremity edema April [id number] The patient was seen and evaluated this morning. She continues to be intubated on mechanical ventilation that she is definitely having upper and lower extremity edema and the chest x-ray showed at least moderate left pleural effusion. Currently she is on Lasix IV which I am going to increase at this point. Kidney function remains stable but she continues to be on heparin IV. The hemoglobin remained stable. The examination is remarkable for bilateral upper and lower extremity is edema. 04/12/23 Patient is seen and examined at bedside the same. Patient continues to be intubated and on mechanical ventilator. Patient continues to be in IV Lasix. Telemetry shows sinus rhythm. Hemoglobin 10.6, creatinine 0.6 Assessment Acute respiratory failure Paroxysmal atrial fibrillation, currently in sinus rhythm Hypertension/dyslipidemia/diabetes History of drug abuse Chronic obstructive pulmonary disease Plan Continue IV Lasix Continue heparin IV. Once extubated, but transition to by mouth intake taya morfin Follow-up with the patient Objective - Vital Signs Vital signs: Vital Signs Temp 100.0 F H 04/12/23 12:00 Pulse 63 04/12/23 14:29 Resp 25 H 04/12/23 12:00 BP 127/50 04/12/23 12:00 Pulse Ox 94 L 04/12/23 12:00 FiO2 50 04/12/23 12:00 Intake & Output 04/11/23 04/12/23 04/12/23 18:59 06:59 18:59 Intake Total 529.279 9484.492 185.28 Output Total 2240 2465 300 Balance -1257.750 -1385.508 -114.72 Weight 91.8 kg 91.8 kg Intake: IV 240 440 20 Magnesium Sulfate-D5w Pmx 100 1 gm In Dextrose/Water 1 100ml.bag @ 100 mls/hr IVPB ONCE ONE Rx#: [id number] Potassium Chloride 20 meq 100 In Water For Injection 1 100ml.bag @ 50 mls/hr IVPB Q2H [facility] Rx#: [id number] Sodium Chloride 0.9% 1, 240 240 20 000 ml @ 20 mls/hr IV . Q24H [facility] Rx#:[id number] Intake, IV Titration 304.250 493.492 165.28 Amount Diltiazem 125 mg In 4.25 Sodium Chloride 0.9% 100 ml @ Per Protocol IV .Q0M [facility] Rx#:[id number] Heparin Sod,Pork in 0.45% 250 NaCl 25,000 unit In 0.45 % NaCl 1 250ml.bag @ 10. 07 UNITS/KG/HR 10 mls/hr IV .Q24H [facility] Rx#: [id number] propofoL 1,000 mg In 300.000 243.492 165.28 Empty Bag 1 bag @ 15 MCG/ KG/MIN 8.577 mls/hr IV . [id number] [facility] Rx#:[id number] Tube Feeding 348 116 Other 90 30 Output: Urine 2240 2465 300 Other: Voiding Method Indwelling Catheter Indwelling Catheter - Labs CBC & Chem 7: 04/12/23 03:16 04/12/23 03:16 Labs: Abnormal Lab Results - Last 24 Hours (Table) 04/11/23 04/11/23 04/12/23 Range/Units 18:02 23:45 02:36 RBC (3.80-5.40) m/uL Hgb (11.4-16.0) gm/dL Hct (34.0-46.0) % APTT (22.0-30.0) sec ABG pH (7.35-7.45) ABG pCO2 (35-45) mmHg ABG pO2 (83-108) mmHg ABG HCO3 (21-25) mmol/L ABG Total CO2 (19-24) mmol/L ABG O2 Saturation (94-97) % Chloride (98-107) mmol/L Carbon Dioxide (22-30) mmol/L BUN (7-17) mg/dL Glucose (74-99) mg/dL POC Glucose (mg/dL) 257 H 189 H 136 H (70-110) mg/dL Calcium (8.4-10.2) mg/dL 04/12/23 04/12/23 04/12/23 Range/Units 03:16 03:16 03:16 RBC 3.48 L (3.80-5.40) m/uL Hgb 10.7 L (11.4-16.0) gm/dL Hct 33.0 L (34.0-46.0) % APTT 51.4 H (22.0-30.0) sec ABG pH (7.35-7.45) ABG pCO2 (35-45) mmHg ABG pO2 (83-108) mmHg ABG HCO3 (21-25) mmol/L ABG Total CO2 (19-24) mmol/L ABG O2 Saturation (94-97) % Chloride 96 L (98-107) mmol/L Carbon Dioxide 39 H (22-30) mmol/L BUN 26 H (7-17) mg/dL Glucose 144 H (74-99) mg/dL POC Glucose (mg/dL) (70-110) mg/dL Calcium 8.0 L (8.4-10.2) mg/dL 04/12/23 04/12/23 04/12/23 Range/Units 04:00 05:34 11:38 RBC (3.80-5.40) m/uL Hgb (11.4-16.0) gm/dL Hct (34.0-46.0) % APTT (22.0-30.0) sec ABG pH 7.53 H (7.35-7.45) ABG pCO2 52 H (35-45) mmHg ABG pO2 61 L (83-108) mmHg ABG HCO3 43 H* (21-25) mmol/L ABG Total CO2 45 H (19-24) mmol/L ABG O2 Saturation 93.7 L (94-97) % Chloride (98-107) mmol/L Carbon Dioxide (22-30) mmol/L BUN (7-17) mg/dL Glucose (74-99) mg/dL POC Glucose (mg/dL) 158 H 248 H (70-110) mg/dL Calcium (8.4-10.2) mg/dL Microbiology - Last 24 Hours (Table) 04/10/23 13:53 Urine Culture - Preliminary Urine,Catheterized Gram Neg Bacilli 04/11/23 03:00 Gram Stain - Preliminary Sputum Sputum Culture - Preliminary Gram Neg Bacilli 04/08/23 09:00 Anaerobic Culture - Final Pleural Fluid 04/08/23 09:00 Gram Stain - Final Pleural Fluid Body Fluid Culture - Final 04/10/23 13:53 Blood Culture - Preliminary Blood
[2023-04-12 17:52] LABS: Glucose,Whole Blood 266 mg/dL (70-110)
[2023-04-12 23:42] LABS: Glucose,Whole Blood 161 mg/dL (70-110)
[2023-04-13] LABS: Glucose,Whole Blood 165 mg/dL (70-110)
[2023-04-13] MEDS: INSULIN ASPART (NovoLOG) 100 UNIT/ML VIAL SQ SCH ×4 (00:43→18:25)
[2023-04-13 02:38] LABS: Glucose,Whole Blood 166 mg/dL (70-110)
[2023-04-13 04:25] LABS: ABG Base Excess 20.2 mmol/L; ABG Oxygen Saturation 96.7 % (94-97); ABG PCO2 55 mmHg (35-45); ABG PO2 78 mmHg (83-108); ABG TCO2 45 mmol/L (19-24); Allen Test Performed? Yes
[2023-04-13] MEDS: HEPARIN SOD,PORK IN 0.45% NACL 25,000 UNIT in 0.45% NACL 1 250ML.BAG IV SCH (04:38)
[2023-04-13 04:42] LABS: ABG HCO3 43 mmol/L (21-25)
[2023-04-13] MEDS: FUROSEMIDE 10 MG/ML 4 ML VIAL IV SCH ×2 (05:17→08:45)
[2023-04-13 06:24] LABS: Glucose,Whole Blood 170 mg/dL (70-110)
--- NOTE | 2023-04-13 06:29 | P.PN ---
Subjective Progress Note Date: 04/12/23 Patient is a 57-year-old female with a past medical history of hypertension, hyperlipidemia, diabetes type 2, history of CVA/TIA with right-sided weakness, recent history of lung cancer, left upper lobectomy in February 2023, bipolar/depression and currently everyday smoker presents to ER with complaints of difficulty in breathing and chest pain. Patient was recently discharged from the hospital on 03/27/2023. Does have a history of non-small cell lung cancer underwent left upper lobectomy complicated by persistent left lower lobe atelectasis requiring multiple bronchoscopies during recent hospitalization. Valve cultures from 07/22/2022 showed haemophilus influenza. Patient was discharged home on Augmentin. On admission chest x-ray showed similar opacification of the left lung likely secondary to atelectasis and large pleural effusion. No pneumothorax visualized. Small right effusion. EKG showed atrial fibrillation with rapid ventricular response with heart rate 117. Patient is currently not on any anticoagulation. Continued on amiodarone. Laboratory data showed WBC 7.7 hemoglobin 11.9 and platelets 186 ABG showed pH 7.41 pCO2 49 and pO2 105 Sodium 136 potassium 4.5 chloride 99 bicarb is 30 BUN 12 and creatinine 0.47 blood sugar 257 and lactic acid 1.7 and calcium 7.9 ESR not elevated. Troponin x 1 negative and proBNP 3090. Influenza A, B, RSV and COVID-19 PCR not detected. Lung resection on 03/15/2023 with final pathology showing moderate to poorly differentiated pulmonary adenocarcinoma. All margins negative for malignancy. 1 of 3 hilar lymph nodes positive for metastatic carcinoma. 03/30/2023 Patient is seen in follow up today with pulmonary following as well as cardiology and adjustments to medications being done. Home medications reviewed and resumed. CT surgery consulted and discussing with surgery about complete lobectomy of the left. Patient continues with pleural effusions noted and has been started on IV lasix 20mg bid and will continue. Labs reviewed and within normal limits. Will follow up on repeat labs and monitor electrolytes and kidney functions closely. Patient is currently afebrile and denies worsening shortness of breath. Patient is continued on 4L and was sent home on this previously last week. Blood sugars elevated and will continue accuchecks achs and adjust medications accordingly. 03/31/2023 Patient seen and evaluated in follow-up today with pulmonary along with cardiothoracic surgery following. Discussing further about possible complete lobectomy of the left with cardiothoracic. Patient per nursing staff is lethargic and has been receiving scheduled Xanax along with Neurontin and pain medications and will decrease the dose of Xanax admitted as needed as well as decreasing the dose of Neurontin. Patient encouraged to increase activity as tolerated and get up more frequently out of the bed and sit up in the chair and work with physical therapy daily. Blood sugars remained elevated and will adjust and make long acting twice daily and continue with sliding scale. Patient continues on 2-3 L via nasal cannula and weaning FiO2 as tolerated. Patient is currently afebrile denies chest pain or palpitations and denies worsening shortness of breath. Patient continues to use incentive spirometer and needs encouragement to do so. Patient is receiving breathing inhalational treatments as well. 04/01/2023 Patient is seen in follow-up today scheduled to undergo bronchoscopy with pulmonary and cardiothoracic surgery following closely. Chest x-ray ordered for post bronchoscopy which is pending. Patient's blood sugars slightly improved and have added long-acting twice daily along with sliding scale. Encouraged increase activity as tolerated. Patient to be evaluated by physical therapy and would recommend daily. Patient also with incentive spirometer at the bedside encouraged to use at least 10 times every hour while awake. Patient reports not feeling she is having worsening shortness of breath although continues to have shortness of breath. 04/02/2023 Patient seen in follow-up this morning currently nothing by mouth and scheduled to undergo repeat bronchoscopy as follow-up chest x-ray showed near complete opacification on the left as well status post bronchoscopy yesterday. Patient is lethargic but arousable and will adjust the medications again and will discontinue Xanax. Patient worked with physical therapy this patient is significantly weak and has had multiple prolonged hospitalizations would likely be going to [facility] on discharge. Will await clearance from CT surgery pulmonary to discuss discharge planning. Patient is afebrile with no reports of worsening shortness of breath. Patient tolerating diet although given patient's lethargy will recommend aspiration precautions. 04/03/2023 Patient is evaluated today sitting up in the chair, currently wearing BiPAP. Patient underwent bronchoscopy today with Dr. Oshea pending surgical report. Chest xray reveals extensive pleural parenchymal opacity left hemithorax some interval improvement of the aeration of the left lung. Worsening small - to moderate right pleural effusion with adjacent atelectasis and or consolidation. Patient continues on IV lasix 20 mg IV Q12h. Magnesium today 1.5. 04/04/2023 Patient evaluated today sitting up in the chair. Currently on nasal cannula wanting to try and eat breakfast. She is tachypneic using accessory muscles to take a deep breath. She has minimal aeration over the left lung with chest xray today showing near complete white out of the left hemithorax, aeration worsening from yesterday. A small portion of the left upper lung remains aerated now. Ongoing small to moderate left pleural effusion adjacent atelectasis and or consolidation. Patient underwent bronchoscopy again this morning due to the mucus plugging of the left mainstem bronchus. Patient had thick yellow sputum s uctioned from the left main bronchus. Continues on IV lasix 20 mg Q12h, and additionally, has been started on IV steroids toda by pulmonary team. proBNP 2910. Sodium 135, potassium 4.6, BUN 13, creatinine 0.55, magnesium 1.8, glucose 228. 04/05/2023 Patient is seen in follow-up today currently awaiting to undergo bronchoscopy again with cardiothoracic surgery on 04/06/2023. Chest x-ray continues to show near complete opacification on the left. Patient continues with ongoing bilateral pleural effusions and is maintained on IV Lasix. Patient started on IV steroids with pulmonary following closely and blood sugars are completely uncontrolled in the 500s. Will initiate insulin drip and continue with protocol and Accu-Cheks every hour and tighter glycemic control. Patient will be nothing by mouth at midnight again for bronchoscopy and will await report. Will discuss further with CT surgery regarding overall treatment plan. Patient with significant weakness recommend physical therapy daily. Patient needs Encouraged increased activity as tolerated as patient has been mostly sitting and sleeping throughout most of hospitalization. 04/06/2023 Patient is seen in follow-up today currently sitting up in the chair awaiting to undergo repeat bronchoscopy with CT surgery today. Patient continues on 4-5 L via nasal cannula reporting continued shortness of breath. Patient's blood sugars are more controlled and patient is maintained on insulin drip and was currently nothing by mouth for the procedure. Will await surgical report and continue insulin drip for now with close monitoring to monitor for any episodes of hypoglycemia. Patient is afebrile denies chest pain or palpitations. 04/07/2023 Patient is seen and evaluated in follow-up currently in the ICU as of yesterday post bronchoscopy this patient had some increased respiratory distress requiring mechanical ventilation and is currently maintained on FiO2 of 60% with a PEEP of 8. Plan is for repeat bronchoscopy today with pulmonary and tentatively scheduled for repeat bronchoscopies on and Wednesday. Patient remains on insulin drip and blood sugars are more controlled and patient is being started on tube feedings and will adjust the medications and continue sliding scale and add long-acting if needed. Patient is a poorly controlled diabetic with hyperglycemia. Patient is currently afebrile showing A. fib on the monitor. Patient does have history of atrial fibrillation and cardiology has been consulted. Prognosis remains extremely guarded at this time. 04/08/2023 Patient is seen in follow-up today remains in the ICU on mechanical ventilation. Follow-up chest x-ray continues to show complete opacification medication on the left and scheduled for bronchoscopy again today. Patient to also undergo left side thoracentesis. Patient is afebrile and current settings on the vent are FI02 of 60% and peep is 10. Patient prognosis is extremely guarded. 04/09/2023 Patient seen and evaluated in follow-up continues to be in the ICU mechanical ventilation. FiO2 is 100% and PEEP has been increased to 10. Plan is for repeat bronchoscopy with pulmonary fiber artist today. Patient has been having daily bronchoscopies for continued mucus plugging. Patient's chest x-rays continue to show left hemithorax and complete opacification. Patient is currently afebrile. Patient maintained on tube feeds and recommend monitoring residuals. Per nursing staff there were some residual noted and patient reported not to have a bowel movement in the last few days. Continue bowel regimen and monitoring of residuals with aspiration precautions. Overall prognosis remains extremely guarded at this time. Blood sugars are becoming slightly more elevated and have added long-acting twice daily and will adjust accordingly. 04/12/2023 Patient was seen and evaluated in follow-up this morning continues to be in the ICU on mechanical ventilation. FiO2 is 50% with a PEEP of 10. Failed weaning trials today. Patietn being followed by multiple medical consultations with plans of possible chest tube insertion with CT surgery. Follow up chest xray continues to show pleural effusions and opacities on the left. Patient is being followed by cardiology and currently off the cardizem drip. Afebrile and tolerating tube feeds. Repeat sputum and urine cultures pending. Review of systems: Unable to assess as patient is on mechanical ventilation and sedated PHYSICAL EXAMINATION: Patient is a 57-year-old female was currently on mechanical ventilation and intubated and sedated Well-developed, well-nourished. Elderly-appearing. obese HEENT: Normocephalic. Neck is supple. Pupils reactive. Nostrils clear. Oral cavity is moist. Neck reveals no JVD, carotid bruits, or thyromegaly. CHEST EXAMINATION: Trachea is central. Symmetrical expansion . Left basilar diminished sounds. No wheezing or rhonchi. CARDIAC: S1, S2 muffled, irregular ABDOMEN: Soft. Bowel sounds present. Nontender. No organomegaly. No abdominal bruits. Extremities: Lower extremity trace edema. No clubbing or cyanosis Neurologically sedated on mechanical ventilation at this time Skin: No rash or skin lesions. Musculoskeletal: No joint swelling or deformity. Assessment: Worsening shortness of breath secondary to persistent left lower lobe atelectasis/collapse despite multiple bronchoscopies during recent admission and Pleural effusion. Patient is status post 4 bronchoscopies this admission and underwent bronchoscopy repeat 04/04/23 with suctioning of thick yellow secretions. Patient underwent bronchoscopy yesterday with multiple mucous plugs and secretions removed and had some respiratory difficulty post bronchoscopy requiring mechanical ventilation. FiO2 is 50% with a PEEP of 10 and will remain on mechanical ventilation as there are plans for repeat bronchoscopies today. Pulmonary fiber artist and CT surgery following closely with plans of possible chest tube insertion today Haemophilus influenza pneumonia. Recent BAL culture showed haemophilus. Repeat sputum and urine cultures were taken and pending. Paroxysmal atrial fibrillation with rapid ventricular rate. Patient has new onset A-fib on 03/21/2023. Continued on amiodarone. Not on anticoagulation. Patient in uncontrolled rate and cardiology following and making adjustments to medications, currently off cardizem drip. Pulmonary adenocarcinoma with recent left upper lobe resection on 03/15/2023 Acute on chronic hypoxic respiratory failure requiring 3-4 L oxygen via nasal cannula on admission. Patient was at 2 L during recent discharge. Severe tracheal bronchomalacia COPD History of CVA with right-sided weakness Diabetes type 2, uncontrolled with hyperglycemia Hypertension Hyperlipidemia History of hepatitis B&C History of alcohol abuse and hides abuse Anxiety/depression and PTSD/bipolar. Currently everyday smoker, reports to quitting on last admission obesity with a bmi of 36.4 GI and DVT prophylaxis Full code Plan: Patient had multiple bronchoscopy this admission and currently in the ICU on mechanical ventilation FiO2 is currently 50% and PEEP increased at 10. Failed weaning trials today Patient will remain on mechanical ventilation for now as patient is scheduled to undergo possible chest tube placement with ct surgery Blood sugars being monitored and will continue current regimen and adjust accordingly Patient to continue on telemetry monitoring for afib and cardiology following and adjusting medications. Patient is not currently on any anticoagulation. currently back off cardizem drip Follow-up on repeat labs and repeat chest x-ray in the a.m. Continue tube feeds and monitoring for residuals with aspiration precautions and head of the bed elevated 30-45 at all times. Continue bowel regimen Due to multiple complex medical issues, overall prognosis is extremely guarded at this time The impression and plan of care has been dictated by Rahel Crabtree, Nurse Practitioner as directed. Dr. John MD I have performed a history and examination and MDM of this patient, discussed the same with the dictator, and agree with the dictator's assessment and plan as written ,documented as a scribe. Based on total visit time, I have performed more than 50% of the visit. Objective - Vital Signs Vital signs: Vital Signs Temp 100.0 F H 04/12/23 12:00 Pulse 63 04/12/23 14:29 Resp 25 H 04/12/23 12:00 BP 127/50 04/12/23 12:00 Pulse Ox 94 L 04/12/23 12:00 FiO2 50 04/12/23 12:00 Intake & Output 04/11/23 04/12/23 04/12/23 18:59 06:59 18:59 Intake Total 415.794 6750.492 185.28 Output Total 2240 2465 300 Balance -1257.750 -1385.508 -114.72 Weight 91.8 kg 91.8 kg Intake: IV 240 440 20 Magnesium Sulfate-D5w Pmx 100 1 gm In Dextrose/Water 1 100ml.bag @ 100 mls/hr IVPB ONCE ONE Rx#: [id number] Potassium Chloride 20 meq 100 In Water For Injection 1 100ml.bag @ 50 mls/hr IVPB Q2H [facility] Rx#: [id number] Sodium Chloride 0.9% 1, 240 240 20 000 ml @ 20 mls/hr IV . Q24H [facility] Rx#:[id number] Intake, IV Titration 304.250 493.492 165.28 Amount Diltiazem 125 mg In 4.25 Sodium Chloride 0.9% 100 ml @ Per Protocol IV .Q0M [facility] Rx#:[id number] Heparin Sod,Pork in 0.45% 250 NaCl 25,000 unit In 0.45 % NaCl 1 250ml.bag @ 10. 07 UNITS/KG/HR 10 mls/hr IV .Q24H [facility] Rx#: [id number] propofoL 1,000 mg In 300.000 243.492 165.28 Empty Bag 1 bag @ 15 MCG/ KG/MIN 8.577 mls/hr IV . [id number] [facility] Rx#:[id number] Tube Feeding 348 116 Other 90 30 Output: Urine 2240 2465 300 Other: Voiding Method Indwelling Catheter Indwelling Catheter - Labs CBC & Chem 7: 04/12/23 03:16 04/12/23 03:16 Labs: Abnormal Lab Results - Last 24 Hours (Table) 04/11/23 04/11/23 04/12/23 Range/Units 18:02 23:45 02:36 RBC (3.80-5.40) m/uL Hgb (11.4-16.0) gm/dL Hct (34.0-46.0) % APTT (22.0-30.0) sec ABG pH (7.35-7.45) ABG pCO2 (35-45) mmHg ABG pO2 (83-108) mmHg ABG HCO3 (21-25) mmol/L ABG Total CO2 (19-24) mmol/L ABG O2 Saturation (94-97) % Chloride (98-107) mmol/L Carbon Dioxide (22-30) mmol/L BUN (7-17) mg/dL Glucose (74-99) mg/dL POC Glucose (mg/dL) 257 H 189 H 136 H (70-110) mg/dL Calcium (8.4-10.2) mg/dL 04/12/23 04/12/23 04/12/23 Range/Units 03:16 03:16 03:16 RBC 3.48 L (3.80-5.40) m/uL Hgb 10.7 L (11.4-16.0) gm/dL Hct 33.0 L (34.0-46.0) % APTT 51.4 H (22.0-30.0) sec ABG pH (7.35-7.45) ABG pCO2 (35-45) mmHg ABG pO2 (83-108) mmHg ABG HCO3 (21-25) mmol/L ABG Total CO2 (19-24) mmol/L ABG O2 Saturation (94-97) % Chloride 96 L (98-107) mmol/L Carbon Dioxide 39 H (22-30) mmol/L BUN 26 H (7-17) mg/dL Glucose 144 H (74-99) mg/dL POC Glucose (mg/dL) (70-110) mg/dL Calcium 8.0 L (8.4-10.2) mg/dL 04/12/23 04/12/23 04/12/23 Range/Units 04:00 05:34 11:38 RBC (3.80-5.40) m/uL Hgb (11.4-16.0) gm/dL Hct (34.0-46.0) % APTT (22.0-30.0) sec ABG pH 7.53 H (7.35-7.45) ABG pCO2 52 H (35-45) mmHg ABG pO2 61 L (83-108) mmHg ABG HCO3 43 H* (21-25) mmol/L ABG Total CO2 45 H (19-24) mmol/L ABG O2 Saturation 93.7 L (94-97) % Chloride (98-107) mmol/L Carbon Dioxide (22-30) mmol/L BUN (7-17) mg/dL Glucose (74-99) mg/dL POC Glucose (mg/dL) 158 H 248 H (70-110) mg/dL Calcium (8.4-10.2) mg/dL Microbiology - Last 24 Hours (Table) 04/10/23 13:53 Urine Culture - Preliminary Urine,Catheterized Gram Neg Bacilli 04/11/23 03:00 Gram Stain - Preliminary Sputum Sputum Culture - Preliminary Gram Neg Bacilli 04/08/23 09:00 Anaerobic Culture - Final Pleural Fluid 04/08/23 09:00 Gram Stain - Final Pleural Fluid Body Fluid Culture - Final 04/10/23 13:53 Blood Culture - Preliminary Blood
[2023-04-13 06:33] LABS: Glucose,Whole Blood 156 mg/dL (70-110)
[2023-04-13] MEDS: INSULIN DETEMIR (LEVEMIR) 100 UNIT/ML SYR SQ SCH ×2 (06:41→21:22)
[2023-04-13 06:42] LABS: HCT 32.7 % (34.0-46.0); HGB 10.9 gm/dL (11.4-16.0); Hypochromasia Moderate; MCH 31.3 pg (25.0-35.0); MCHC 33.4 g/dL (31.0-37.0); MCV 93.9 fL (80.0-100.0); Mean Platelet Volume 8.4; Platelet Count 156 k/uL (150-450); Poikilocytosis Slight; RBC 3.49 m/uL (3.80-5.40); RDW 13.6 % (11.5-15.5); WBC 7.5 k/uL (3.8-10.6)
--- NOTE | 2023-04-13 07:03 | P.PN ---
Subjective Progress Note Date: 04/13/23 Principal diagnosis: Shortness of breath, rapid atrial fibrillation present on admission, worsening right lung possibly from aspiration. History of moderate to poorly differentiate d pulmonary adenocarcinoma with 13 hilar lymph nodes positive for metastatic carcinoma status post robotic-assisted thoracoscopic left upper lobectomy with mediastinal lymph node dissection, postoperative paroxysmal atrial fibrillation, left lower lobe atelectasis and mucous plugging with tracheobronchial malacia status post bronchoscopy 3, insulin dependent diabetes with poor glycemic control, hypomagnesemia, current tobacco dependence with cessation prior to previous admission, moderate COPD, current daily EtOH use, hypertension, hyperlipidemia, stroke in 2016 with right-sided weakness, hepatitis B and C, bipolar depression, IV heroin use 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 Remains intubated and sedated. Remains sinus bradycardia with heart rate in the 50s, hemodynamically stable. Patient has undergone multiple bronchoscopies, last bronch was Wednesday during which patient became hypoxic requiring increase in FiO2 and PEEP, FiO2 has been weaned back down, currently FiO2 50%, PEEP @ 10, oxygen saturation in the mid 90s. In addition she had a left-sided thoracentesis with removal of 750 mL fluid which was sent for cytology and culture, cytology negative for malignance, positive for inflammatory cells, culture negative. CXR reviewed, patient does have underlying trapped left lung with accumulation of pleural fluid and persistent diffuse interstitial opacities throughout the right lung, potentially from aspiration, left effusion appears worse today. Sputum culture from 04/11/23 preliminarily growing gram negative bacilli, urine culture from 04/10/23 preliminarily growing gram negative bacilli, WBC remains normal at 7.5, patient did have single incidence of low grade fever of 100F yesterday. Ventilator adjustments made by [employer] reading teacher, no weaning trial done yesterday due to poor performance Wednesday with weaning trial. Recommend attempt at weaning trial today, if no success will need trach. Plan for bronchoscopy and left pleurx catheter placement tomorrow as well as possible tracheostomy. Steroids being tapered. Continues on IV heparin due to paroxysmal atrial fibrillation, remains on oral amiodarone which is being tapered. Tube feeding infusing at goal. Will update family today. Objective - Vital Signs Vital signs: Vital Signs Temp 98.3 F 01/16/24 04:00 Pulse 53 L 04/13/23 06:00 Resp 31 H 04/13/23 06:00 BP 124/55 04/13/23 06:00 Pulse Ox 95 04/13/23 06:00 FiO2 50 04/13/23 04:12 Intake & Output 04/12/23 04/12/23 04/13/23 06:59 18:59 06:59 Intake Total 1079.492 827.28 956.328 Output Total 2465 1905 1655 Balance -1385.508 -1077.72 -698.672 Weight 91.8 kg 91.8 kg 89.2 kg Intake: IV 440 270 120 Magnesium Sulfate-D5w Pmx 100 1 gm In Dextrose/Water 1 100ml.bag @ 100 mls/hr IVPB ONCE ONE Rx#: [id number] Potassium Chloride 20 meq 100 100 In Water For Injection 1 100ml.bag @ 50 mls/hr IVPB Q2H [facility] Rx#: [id number] Sodium Chloride 0.9% 1, 240 170 120 000 ml @ 20 mls/hr IV . Q24H [facility] Rx#:[id number] Intake, IV Titration 493.492 265.28 504.328 Amount Heparin Sod,Pork in 0.45% 250 241.842 NaCl 25,000 unit In 0.45 % NaCl 1 250ml.bag @ 10. 07 UNITS/KG/HR 10 mls/hr IV .Q24H [facility] Rx#: [id number] propofoL 1,000 mg In 243.492 265.28 262.486 Empty Bag 1 bag @ 15 MCG/ KG/MIN 8.577 mls/hr IV . [id number] [facility] Rx#:[id number] Tube Feeding 116 232 242 Other 30 60 90 Output: Urine 2465 1905 1655 Other: Voiding Method Indwelling Catheter Indwelling Catheter Indwelling Catheter - Exam CONSTITUTIONAL: Remains sedated and intubated, no acute distress RESPIRATORY: Lungs sounds diminished in the left lung base. Respirations even, nonlabored on mechanical ventilation. Current ventilator settings FiO2 50%, PEEP 10, tidal volume 350, respiratory rate 20. 8.0 ET tube present, 23 at the lip CARDIOVASCULAR: S1, S2 present. Slow but regular rate and rhythm, sinus bradycardia on telemetry. Doppler lower extremity pulses bilaterally. Bilateral lower extremity pitting edema present, Anson wraps present from toes to knees, SCDs present. GASTROINTESTINAL: Abdomen soft, nontender, nondistended. Active bowel sounds present 4 quadrants. Positive bowel movement 04/10/23. OG tube present, TF infusing at 22 mL/hr GENITOURINARY: Cameron catheter present draining clear yellow urine, output 3560 mL in the last 24 hours INTEGUMENTARY: Skin is warm and dry NEUROLOGIC: Currently sedated with propofol. Patient does open her eyes, moving extremities to command - Allied health notes Allied health notes reviewed: nursing - Labs CBC & Chem 7: 04/13/23 06:18 04/12/23 03:16 Labs: Abnormal Lab Results - Last 24 Hours (Table) 04/12/23 04/12/23 04/12/23 Range/Units 11:38 17:51 23:39 RBC (3.80-5.40) m/uL Hgb (11.4-16.0) gm/dL Hct (34.0-46.0) % ABG pH (7.35-7.45) ABG pCO2 (35-45) mmHg ABG pO2 (83-108) mmHg ABG HCO3 (21-25) mmol/L ABG Total CO2 (19-24) mmol/L POC Glucose (mg/dL) 248 H 266 H 161 H (70-110) mg/dL 04/12/23 04/13/23 04/13/23 Range/Units 23:57 02:36 04:20 RBC (3.80-5.40) m/uL Hgb (11.4-16.0) gm/dL Hct (34.0-46.0) % ABG pH 7.50 H (7.35-7.45) ABG pCO2 55 H (35-45) mmHg ABG pO2 78 L (83-108) mmHg ABG HCO3 43 H* (21-25) mmol/L ABG Total CO2 45 H (19-24) mmol/L POC Glucose (mg/dL) 165 H 166 H (70-110) mg/dL 04/13/23 04/13/23 04/13/23 Range/Units 06:18 06:22 06:32 RBC 3.49 L (3.80-5.40) m/uL Hgb 10.9 L (11.4-16.0) gm/dL Hct 32.7 L (34.0-46.0) % ABG pH (7.35-7.45) ABG pCO2 (35-45) mmHg ABG pO2 (83-108) mmHg ABG HCO3 (21-25) mmol/L ABG Total CO2 (19-24) mmol/L POC Glucose (mg/dL) 170 H 156 H (70-110) mg/dL Microbiology - Last 24 Hours (Table) 04/10/23 13:53 Blood Culture - Preliminary Blood 04/10/23 13:53 Urine Culture - Preliminary Urine,Catheterized Gram Neg Bacilli 04/11/23 03:00 Gram Stain - Preliminary Sputum Sputum Culture - Preliminary Gram Neg Bacilli 04/08/23 09:00 Anaerobic Culture - Final Pleural Fluid 04/08/23 09:00 Gram Stain - Final Pleural Fluid Body Fluid Culture - Final - Imaging and Cardiology Chest x-ray: image reviewed Assessment and Plan Assessment: Moderate to poorly differentiated pulmonary adenocarcinoma with 13 hilar lymph nodes positive for metastatic carcinoma status post robotic-assisted thoracoscopic left upper lobectomy with mediastinal lymph node dissection Postoperative paroxysmal atrial fibrillation currently sinus bradycardia Acute hypoxemic respiratory failure Worsening right lung possibly from aspiration Left lower lobe atelectasis and mucous plugging with tracheobronchial malacia status post multiple bronchoscopies Insulin dependent diabetes with poor glycemic control, hyperglycemia, A1c 8.8% Hypomagnesemia Current tobacco dependence with cessation prior to previous admission Moderate COPD, preoperative FEV1 54% of predicted, DLCO 36% of predicted Current daily EtOH use Hypertension Hyperlipidemia Stroke in 2016 with right-sided weakness Hepatitis B and C Bipolar depression History of IV heroin use with last use August 2018 Plan: Plan is for bronchoscopy with left pleurx placement, possible tracheostomy tommorrow by Dr. June Stop tube feeding at midnight, stop heparin gtt at 10 am for surgery tomorrow afternoon Ventilator management, recommend weaning trial today Continue Mucomyst, bronchodilators, Pulmicort Daily sedation holiday Will monitor daily labs and x-rays, final path and culture from pleural fluid negative, monitor for final sputum and urine cultures GI/DVT prophylaxis Diabetic management per internal medicine, patient needs tight blood sugar control Continue Amiodarone, will taper weekly, continue IV heparin Continue tube feeding Medical management of other comorbidities per primary care service, pulmonology Guarded prognosis, will update family today More recommendations to follow based on patient's progress
[2023-04-13 07:05] LABS: African American GFR (CKD) >90 (>60 ml/min/1.73 sqM); Anion Gap 0 mmol/L; Blood Urea Nitrogen 22 mg/dL (7-17); Calcium 7.9 mg/dL (8.4-10.2); Chloride 96 mmol/L (98-107); Glucose 160 mg/dL (74-99); Magnesium 1.6 mg/dL (1.6-2.3); Non-African American GFR(CKD) >90 (>60 ml/min/1.73 sqM); Potassium 3.4 mmol/L (3.5-5.1); Sodium 136 mmol/L (137-145)
[2023-04-13 07:28] LABS: Carbon Dioxide 35 mmol/L (22-30)
[2023-04-13] MEDS: FORMOTEROL FUMARATE 20 MCG/2 ML NEBU INHALATION SCH ×2 (08:06→20:36)
[2023-04-13] MEDS: BUDESONIDE 1 MG/2 ML NEBU INHALATION SCH ×2 (08:06→20:36)
[2023-04-13] MEDS: ACETYLCYSTEINE 800 MG/4 ML VIAL INHALATION SCH ×3 (08:06→20:36)
[2023-04-13] MEDS: IPRATROPIUM-ALBUTEROL 3 ML NEB INHALATION SCH ×4 (08:06→20:36)
--- NOTE | 2023-04-13 08:15 | P.PN ---
Subjective Progress Note Date: 04/13/23 04/12/2023, the patient is being seen for a follow-up. Note that the patient had a very complicated postoperative course following resection of a left upper lobe adenocarcinoma. The patient was noted to have adenocarcinoma of the left upper lobe and the patient underwent a robotic assisted thoracoscopic left upper lobe lobectomy along with mediastinal lymph node dissection. The patient was found to have T1b N1 M0 disease. Postoperative course was complicated by recurrent atelectasis of the left lower lobe which was attributed to pneumonia, mucous plugs, COPD and severe tracheobronchomalacia. The patient required multiple bronchoscopies with some partial reexpansion of the left lung. The patient was also covered with a broad-spectrum antibiotics. She is known to have COPD, tracheobronchomalacia, hypertension, hyperlipidemia and previous history of CVA back in 2016 that the resultant right-sided weakness. The patient also has hepatitis B, hepatitis C, bipolar disorder and history of depression. She has previous history of IV heroin use and her last usage was in August 2018. She was briefly discharged home to be readmitted for worsening shortness of breath. She ultimately went into respiratory failure during the second hospitalization and for now, the patient remains intubated and mechanically ventilated. On today's evaluation, the patient is on propofol and the patient is also on assist-control mode of mechanical ventilation with a rate of 20, tidal volume of 350, FiO2 of 5 0% with a PEEP of 10. Propofol is running at 50 mcg/kg/min. Chest x-ray shows evidence of a left upper lobe lobectomy, moderate left-sided pleural effusion along with a small right-sided pleural effusion. ET tube is in a good location. NG tube also in good location. The blood gas from this morning shows a pH of 7.53 with a pCO2 of 52 and pO2 of 61. She is currently in normal sinus rhythm. She remains on IV heparin. In terms of cultures, most of the bronchial cultures came back negative with exception of a lavage that was obtained back in 03/23/2023 that showed haemophilus influenza. The patient is currently not on DuoNeb updrafts, Mucomyst, in addition to a combination of budesonide and Pulmicort. She is not receiving any antibiotics for now. She remains on IV Solu-Medrol 30 mg every 24 hours. SHe was having atrial fibrillation and she is back to sinus, she remains on IV heparin, amiodarone 200 mg p.o. daily and Cardizem dripn is off . The patient is also on Levemir insulin 8 units twice daily and NovoLog sliding scale coverage. She is afebrile. She remains of antibiotics for now. She is receiving enteral feeding for nutritional support. The patient is receiving vital high-protein at the rate of 29 mL an hour. IV fluids are in the form of 0.9 at 20 mL an hour. Sodium is at 140, potassium 3.5, bicarbonate 36, BUN is at 26 and a creatinine of 0.6. Nevertheless, 7.7, hemoglobin was at 10.7 and a platelet count is at 161. She is on no pressors. On 04/13/2023, the patient is being seen for a follow-up. The patient remains intubated on a mechanical ventilator. She remains sedated on propofol which is running at 50 mcg/kg/m and the patient is adequately sedated. She remains on a mechanical ventilator on assist control mode at the rate of 20, tidal volumes of 350, FiO2 50% with a PEEP of 10. Current pulse ox is 95%. The blood gas from today shows a pH of 7.5 with a pCO2 of 55 and pO2 of 78. The chest x-ray shows complete opacification of the left lung. This is related to a combination of atelectasis, consolidation and possibly a small left-sided pleural effusion. Most recent bronchoscopy that was done on 04/11/2022 is yielding gram-negative bacillus and the patient will be covered with broad-spectrum antibiotics. Suggest IV meropenem. Clinically stable. Hemodynamically stable. Cardiac rhythm is A. fib with a controlled rate. The patient remains on IV heparin. The patient is off Cardizem. For the time being. Also, her white cell count is at 7.5, hemoglobin is at 10.9 with a platelet count of 156. Sodium level is at 136, potassium levels at 3.4, serum bicarb is at 35 with a BUN of 22 and a creatinine of 0.6. The patient is on enteral feeding for nutritional support and she is receiving vital high-protein at the rate of 22 mL an hour. The patient is on bronchodilators. The patient is oral prednisone at a dose of 20 mg by mouth daily as part of her breast taper. She is on Lasix 40 mg IV every 8 hours and her fluids balance is -1.7 L over the past 24 hours. She has been on Levemir insulin for blood sugar control and the patient is receiving 8 units twice a day along with a sliding scale coverage. In terms of her A. fib, she is on IV heparin and she is also on amiodarone 200 mg by mouth twice a day. Cardizem drip is off. Rate is adequately controlled at this point. No fever. Objective - Vital Signs Vital signs: Vital Signs Temp 98.3 F 04/13/23 04:00 Pulse 55 L 04/13/23 07:00 Resp 53 H 04/13/23 07:00 BP 129/55 04/13/23 07:00 Pulse Ox 95 04/13/23 07:00 FiO2 50 04/13/23 04:12 Intake & Output 04/12/23 04/13/23 04/13/23 18:59 06:59 18:59 Intake Total 827.28 956.328 32 Output Total 1905 1655 270 Balance -1077.72 -698.672 -238 Weight 91.8 kg 89.2 kg Intake: IV 270 120 10 Potassium Chloride 20 meq 100 In Water For Injection 1 100ml.bag @ 50 mls/hr IVPB Q2H [facility] Rx#: [id number] Sodium Chloride 0.9% 1, 170 120 10 000 ml @ 20 mls/hr IV . Q24H [facility] Rx#:[id number] Intake, IV Titration 265.28 504.328 Amount Heparin Sod,Pork in 0.45% 241.842 NaCl 25,000 unit In 0.45 % NaCl 1 250ml.bag @ 10. 07 UNITS/KG/HR 10 mls/hr IV .Q24H [facility] Rx#: [id number] propofoL 1,000 mg In 265.28 262.486 Empty Bag 1 bag @ 15 MCG/ KG/MIN 8.577 mls/hr IV . [id number] [facility] Rx#:[id number] Tube Feeding 232 242 22 Other 60 90 Output: Urine 1905 1655 270 Other: Voiding Method Indwelling Catheter Indwelling Catheter - Exam CONSTITUTIONAL: Remains sedated and intubated, no acute distress RESPIRATORY: Lungs sounds diminished in the left lung base. Respirations even, nonlabored on mechanical ventilation. Current ventilator settings FiO2 50%, PEEP 10, tidal volume 350, respiratory rate 20. Patient is breathing over the ventilator. 8.0 ET tube present, 23 at the lip CARDIOVASCULAR: S1, S2 present. Slow but regular rate and rhythm, sinus bradycardia on telemetry. Doppler lower extremity pulses bilaterally. Bilateral lower extremity pitting edema present, Anson wraps present from toes to knees, SCDs present. Lungs sounds are diminished in the left lung base. Breasts on the right than adequate. No significant alcohol or wheezes. GASTROINTESTINAL: Abdomen soft, nontender, nondistended. Active bowel sounds present 4 quadrants. GENITOURINARY: Cameron catheter present draining clear yellow urine, INTEGUMENTARY: Skin is warm and dry NEUROLOGIC: Currently sedated with propofol. Patient does open her eyes, moving left arm and leg to command, not moving right side currently although per nursing she does move the right side off sedation - Labs CBC & Chem 7: 04/13/23 06:18 04/13/23 06:18 Labs: Abnormal Lab Results - Last 24 Hours (Table) 04/12/23 04/12/23 04/12/23 Range/Units 11:38 17:51 23:39 RBC (3.80-5.40) m/uL Hgb (11.4-16.0) gm/dL Hct (34.0-46.0) % APTT (22.0-30.0) sec ABG pH (7.35-7.45) ABG pCO2 (35-45) mmHg ABG pO2 (83-108) mmHg ABG HCO3 (21-25) mmol/L ABG Total CO2 (19-24) mmol/L Sodium (137-145) mmol/L Potassium (3.5-5.1) mmol/L Chloride (98-107) mmol/L Carbon Dioxide (22-30) mmol/L BUN (7-17) mg/dL Glucose (74-99) mg/dL POC Glucose (mg/dL) 248 H 266 H 161 H (70-110) mg/dL Calcium (8.4-10.2) mg/dL 04/12/23 04/13/23 04/13/23 Range/Units 23:57 02:36 04:20 RBC (3.80-5.40) m/uL Hgb (11.4-16.0) gm/dL Hct (34.0-46.0) % APTT (22.0-30.0) sec ABG pH 7.50 H (7.35-7.45) ABG pCO2 55 H (35-45) mmHg ABG pO2 78 L (83-108) mmHg ABG HCO3 43 H* (21-25) mmol/L ABG Total CO2 45 H (19-24) mmol/L Sodium (137-145) mmol/L Potassium (3.5-5.1) mmol/L Chloride (98-107) mmol/L Carbon Dioxide (22-30) mmol/L BUN (7-17) mg/dL Glucose (74-99) mg/dL POC Glucose (mg/dL) 165 H 166 H (70-110) mg/dL Calcium (8.4-10.2) mg/dL 04/13/23 04/13/23 04/13/23 Range/Units 06:18 06:18 06:18 RBC 3.49 L (3.80-5.40) m/uL Hgb 10.9 L (11.4-16.0) gm/dL Hct 32.7 L (34.0-46.0) % APTT 45.6 H (22.0-30.0) sec ABG pH (7.35-7.45) ABG pCO2 (35-45) mmHg ABG pO2 (83-108) mmHg ABG HCO3 (21-25) mmol/L ABG Total CO2 (19-24) mmol/L Sodium 136 L (137-145) mmol/L Potassium 3.4 L (3.5-5.1) mmol/L Chloride 96 L (98-107) mmol/L Carbon Dioxide 35 H (22-30) mmol/L BUN 22 H (7-17) mg/dL Glucose 160 H (74-99) mg/dL POC Glucose (mg/dL) (70-110) mg/dL Calcium 7.9 L (8.4-10.2) mg/dL 04/13/23 04/13/23 Range/Units 06:22 06:32 RBC (3.80-5.40) m/uL Hgb (11.4-16.0) gm/dL Hct (34.0-46.0) % APTT (22.0-30.0) sec ABG pH (7.35-7.45) ABG pCO2 (35-45) mmHg ABG pO2 (83-108) mmHg ABG HCO3 (21-25) mmol/L ABG Total CO2 (19-24) mmol/L Sodium (137-145) mmol/L Potassium (3.5-5.1) mmol/L Chloride (98-107) mmol/L Carbon Dioxide (22-30) mmol/L BUN (7-17) mg/dL Glucose (74-99) mg/dL POC Glucose (mg/dL) 170 H 156 H (70-110) mg/dL Calcium (8.4-10.2) mg/dL Microbiology - Last 24 Hours (Table) 04/10/23 13:53 Blood Culture - Preliminary Blood 04/10/23 13:53 Urine Culture - Preliminary Urine,Catheterized Gram Neg Bacilli 04/11/23 03:00 Gram Stain - Preliminary Sputum Sputum Culture - Preliminary Gram Neg Bacilli 04/08/23 09:00 Anaerobic Culture - Final Pleural Fluid 04/08/23 09:00 Gram Stain - Final Pleural Fluid Body Fluid Culture - Final Assessment and Plan Plan: Acute on chronic shortness of breath without any worsening in her hypoxemia. The patient's shortness of breath is multifactorial. The patient is post op for a left upper lobe resection. She has also complete atelectasis of left lower lobe and several attempts to reexpand the lung on the left has failed as the patient has significant tracheal bronchomalacia, mucus, Haemophilus influenza pneumonia and narrowing of the left lower lobe orifice as noted on several bronchoscopies. The patient was reintubated on 04/06/2023 and she has been on a mechanical ventilator since. The last bronchoscopy was done on 04/09/2023, cultures are showing gram-negative bacillus and subsequent chest x-ray from today showing complete opacification of the left lung which is a combination of consolidation, effusion and atelectasis. Based on the most recent gram-negative growth, the patient will be covered with broad-spectrum antibiotics. Note that earlier, she was receiving IV Zosyn and she is currently off antibiotics. I will suggest covering her with IV meropenem coverage for hospital-acquired pathogens/infections. Pulmonary adenocarcinoma with a 1.5 cm mass in the left upper lobe. Surgery was done on and the patient has a final pathologic staging is T1b N1 M0 disease. Left lung collapse, essentially the left lower lobe secondary to mucous plugs. Bronchoscopy was done during the early hospitalization the patient was found to have mucous plugs, significant tracheal bronchomalacia, narrowing of the left lower lobe bronchial orifice. There is only a small left-sided pleural effusion and the left lung base. left-sided pleural effusion, Postthoracentesis done on 04/08/2023 with removal of 750 cc of pleural fluid, awaiting final cytology. Tracheobronchomalacia, severe New-onset atrial fibrillation with rapid ventricular response, started on 03/22/2023. The patient continued to have episodes of PAF and currently she is presenting with the same. She is in sinus History of chronic obstructive pulmonary disease. History of CVA. History of diabetes mellitus. History of hypertension. History of hyperlipidemia. History of alcohol abuse and heroin abuse. History of hepatitis B and C. Plan Continue ventilator support, no changes for today Chest x-ray was noted and the patient has small right-sided pleural effusion, left lung is atelectatic and there is interval worsening of the consolidation of the left lung. In fact left lung is completely opacified at this point in time. Most recent cultures from the lungs are showing gram-negative bacillus and the patient will be covered with IV meropenem Cardiac rhythm is atrial fibrillation with a controlled rate and the patient remains on IV heparin Failed the weaning attempts yesterday, no weaning attempts for today. The plan is to do a tracheostomy tube and the Pleurx catheter insertion on the left tomorrow by cardiothoracic surgery. Keep the patient has sedation for now Keep the patient off Cardizem drip Change the Lasix to 40 mg every 24 hours as the patient was becoming progressively more alkalotic and she is already in negative fluid balance IV fluids to KVO Continue enteral feeding for nutritional support Condition is critical and will continue to follow Continue supportive care Critical care evaluation was done in more than 30 minutes Time with Patient: Greater than 30
--- NOTE | 2023-04-13 08:32 | XR ---
EXAMINATION TYPE: XR chest 1V portable DATE OF EXAM: 04/13/2023 COMPARISON: 04/12/2023 HISTORY: ET tube placement TECHNIQUE: Single frontal view of the chest is obtained. FINDINGS: ET and NG tube stable. There is a increasing pleural fluid on the left with a large effusi on now seen. Calcified granuloma right hilum. Bilateral consolidation and pleural effusion. Bilateral shoulder arthropathy. Degenerative change of the spine. IMPRESSION: 1. Near complete opacification left hemithorax likely representing combination of consolidation and p leural effusion. There is abrupt cut off of the left mainstem bronchus which may represent endobronch ial lesion or mucous plug.. 2. Correlate for CHF.
[2023-04-13] MEDS: FOLIC ACID 1 MG TAB PO SCH (08:34)
[2023-04-13] MEDS: THIAMINE 100 MG TAB PO SCH (08:34)
[2023-04-13] MEDS: ATORVASTATIN 10 MG TAB PO SCH (08:34)
[2023-04-13] MEDS: AMIODARONE 200 MG TAB PO SCH ×2 (08:34→21:21)
[2023-04-13] MEDS: GABAPENTIN 400 MG CAP PO SCH ×3 (08:34→21:21)
[2023-04-13] MEDS: CHLORHEXIDINE GLUCONATE 15 ML CUP MUCOUS MEM SCH ×2 (08:35→21:21)
[2023-04-13] MEDS: SENNOSIDES 8.6 MG TAB PO SCH ×2 (08:35→21:21)
[2023-04-13] MEDS: guaiFENesin 600 MG TABLET.ER PO SCH ×2 (08:35→21:20)
[2023-04-13] MEDS: predniSONE 20 MG TAB PO SCH (08:35)
[2023-04-13] MEDS: PANTOPRAZOLE 40 MG TABLET PO SCH (08:35)
[2023-04-13] MEDS: MEROPENEM 1 GM in SODIUM CHLORIDE 0.9% 100 ML IVPB SCH ×2 (08:45→15:36)
[2023-04-13] MEDS: SODIUM CHLORIDE 0.9% 1,000 ML IV SCH (08:59)
[2023-04-13 12:06] LABS: Glucose,Whole Blood 245 mg/dL (70-110)
--- NOTE | 2023-04-13 15:40 | P.PN ---
Subjective Progress Note Date: 04/13/23 HPI The patient is a 57-year-old female patient who is currently intubated and she is on mechanical ventilation and we requested to see the patient for paroxysmal atrial fibrillation. The history was taken from the chart. Apparently the patient does have history of paroxysmal atrial fibrillation and she was receiving amiodarone orally and also she does have history of stroke and diabetes and hypertension and dyslipidemia and chronic obstructive pulmonary disease and drug abuse. The patient has been in the hospital for few days. 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 She was admitted to the hospital this time with what it seems to be related to pneumonia. Also she underwent bronchoscopy multiple times because of the collapse of the left lung. Currently she is intubated and she is on mechanical ventilation. We consulted to see the patient because she did have an episode of tachycardia yesterday. I did get the EKG which seems to be somewhat concerning for atrial fibrillation which is known to the patient from before. Currently she is back in normal sinus mechanism. For some reason the patient is not on any anticoagulation. Her hemoglobin is stable. I am going to consider starting the patient on heparin IV at this point and consider switching her to oral anticoagulation unless there is any contraindication from another aspects. Beside that continue the current medical regimen including the current dose of amiodarone. The examination is remarkable for stable vital signs with regular rhythm and distant heart sounds and imaged breathing sounds and mild bilateral lower extremity edema noted. 04/09/2023 The patient was seen and evaluated this morning. She continues to be intubated on mechanical ventilation but she is hemodynamically stable but she underwent bronchoscopy yesterday and she is possibly need to undergo another one today beach she has been maintaining normal sinus mechanism. She was started on heparin which we will continue at this point and consider switching the patient to oral anticoagulation once she does not need any other surgical/invasive procedures. The examination is remarkable for regular rhythm with distant heart sounds and bilateral expiratory wheezing and mild bilateral lower extremities edema noted. April 102023 The patient was seen and evaluated this morning she continues to be intubated on mechanical ventilation but she's hemodynamics is stable and she continues to be on heparin IV. We'll continue the current medical regimen beach she has been maintaining normal sinus mechanism. Consider starting the patient on oral anticoagulation was 10 she doesn't need any further procedures. The examination is remarkable for intubated patient with regular rhythm and soft systolic murmur and diminished breathing sounds bilaterally and no edema in the lower extremity edema April [id number] The patient was seen and evaluated this morning. She continues to be intubated on mechanical ventilation that she is definitely having upper and lower extremity edema and the chest x-ray showed at least moderate left pleural effusion. Currently she is on Lasix IV which I am going to increase at this point. Kidney function remains stable but she continues to be on heparin IV. The hemoglobin remained stable. The examination is remarkable for bilateral upper and lower extremity is edema. 04/12/23 Patient is seen and examined at bedside the same. Patient continues to be intubated and on mechanical ventilator. Patient continues to be in IV Lasix. Telemetry shows sinus rhythm. Hemoglobin 10.6, creatinine 0.6 04/13/2023 Patient continues to be on ventilator support. She failed weaning trial yesterday. She continues to be normal sinus rhythm on by mouth amiodarone. There is a possible plan of getting tracheostomy to placed because patient has been failing to be weaned off the ventilator. Assessment Acute respiratory failure Paroxysmal atrial fibrillation, currently in sinus rhythm Hypertension/dyslipidemia/diabetes History of drug abuse Chronic obstructive pulmonary disease Plan Continue IV Lasix. Reduce to once daily Continue by mouth amiodarone 200 mg daily for rhythm control Continue heparin IV. Once the decision is made for tracheostomy, we will decide for long-term anticoagulation thereafter. Overall prognosis is guarded Objective - Vital Signs Vital signs: Vital Signs Temp 99.2 F 04/13/23 12:00 Pulse 56 L 04/13/23 15:34 Resp 60 H 04/13/23 15:00 BP 119/51 04/13/23 15:00 Pulse Ox 96 04/13/23 15:00 FiO2 50 04/13/23 15:21 Intake & Output 04/12/23 04/13/23 04/13/23 18:59 06:59 18:59 Intake Total 827.28 956.328 519.394 Output Total 1905 1655 1270 Balance -1077.72 -698.672 -750.606 Weight 91.8 kg 89.2 kg 89.2 kg Intake: IV 270 120 190 Meropenem 1 gm In Sodium 100 Chloride 0.9% 100 ml @ 33 .3 mls/hr IVPB Q8HR [facility] Rx#:[id number] Potassium Chloride 20 meq 100 In Water For Injection 1 100ml.bag @ 50 mls/hr IVPB Q2H [facility] Rx#: [id number] Sodium Chloride 0.9% 1, 170 120 90 000 ml @ 20 mls/hr IV . Q24H [facility] Rx#:[id number] Intake, IV Titration 265.28 504.328 93.394 Amount Heparin Sod,Pork in 0.45% 241.842 NaCl 25,000 unit In 0.45 % NaCl 1 250ml.bag @ 10. 07 UNITS/KG/HR 10 mls/hr IV .Q24H [facility] Rx#: [id number] propofoL 1,000 mg In 265.28 262.486 93.394 Empty Bag 1 bag @ 15 MCG/ KG/MIN 8.577 mls/hr IV . [id number] [facility] Rx#:[id number] Tube Feeding 232 242 176 Other 60 90 60 Output: Urine 1905 1655 1270 Other: Voiding Method Indwelling Catheter Indwelling Catheter Indwelling Catheter - Labs CBC & Chem 7: 04/13/23 06:18 04/13/23 06:18 Labs: Abnormal Lab Results - Last 24 Hours (Table) 04/12/23 04/12/23 04/12/23 Range/Units 17:51 23:39 23:57 RBC (3.80-5.40) m/uL Hgb (11.4-16.0) gm/dL Hct (34.0-46.0) % APTT (22.0-30.0) sec ABG pH (7.35-7.45) ABG pCO2 (35-45) mmHg ABG pO2 (83-108) mmHg ABG HCO3 (21-25) mmol/L ABG Total CO2 (19-24) mmol/L Sodium (137-145) mmol/L Potassium (3.5-5.1) mmol/L Chloride (98-107) mmol/L Carbon Dioxide (22-30) mmol/L BUN (7-17) mg/dL Glucose (74-99) mg/dL POC Glucose (mg/dL) 266 H 161 H 165 H (70-110) mg/dL Calcium (8.4-10.2) mg/dL 04/13/23 04/13/23 04/13/23 Range/Units 02:36 04:20 06:18 RBC (3.80-5.40) m/uL Hgb (11.4-16.0) gm/dL Hct (34.0-46.0) % APTT (22.0-30.0) sec ABG pH 7.50 H (7.35-7.45) ABG pCO2 55 H (35-45) mmHg ABG pO2 78 L (83-108) mmHg ABG HCO3 43 H* (21-25) mmol/L ABG Total CO2 45 H (19-24) mmol/L Sodium 136 L (137-145) mmol/L Potassium 3.4 L (3.5-5.1) mmol/L Chloride 96 L (98-107) mmol/L Carbon Dioxide 35 H (22-30) mmol/L BUN 22 H (7-17) mg/dL Glucose 160 H (74-99) mg/dL POC Glucose (mg/dL) 166 H (70-110) mg/dL Calcium 7.9 L (8.4-10.2) mg/dL 04/13/23 04/13/23 04/13/23 Range/Units 06:18 06:18 06:22 RBC 3.49 L (3.80-5.40) m/uL Hgb 10.9 L (11.4-16.0) gm/dL Hct 32.7 L (34.0-46.0) % APTT 45.6 H (22.0-30.0) sec ABG pH (7.35-7.45) ABG pCO2 (35-45) mmHg ABG pO2 (83-108) mmHg ABG HCO3 (21-25) mmol/L ABG Total CO2 (19-24) mmol/L Sodium (137-145) mmol/L Potassium (3.5-5.1) mmol/L Chloride (98-107) mmol/L Carbon Dioxide (22-30) mmol/L BUN (7-17) mg/dL Glucose (74-99) mg/dL POC Glucose (mg/dL) 170 H (70-110) mg/dL Calcium (8.4-10.2) mg/dL 04/13/23 04/13/23 Range/Units 06:32 12:05 RBC (3.80-5.40) m/uL Hgb (11.4-16.0) gm/dL Hct (34.0-46.0) % APTT (22.0-30.0) sec ABG pH (7.35-7.45) ABG pCO2 (35-45) mmHg ABG pO2 (83-108) mmHg ABG HCO3 (21-25) mmol/L ABG Total CO2 (19-24) mmol/L Sodium (137-145) mmol/L Potassium (3.5-5.1) mmol/L Chloride (98-107) mmol/L Carbon Dioxide (22-30) mmol/L BUN (7-17) mg/dL Glucose (74-99) mg/dL POC Glucose (mg/dL) 156 H 245 H (70-110) mg/dL Calcium (8.4-10.2) mg/dL Microbiology - Last 24 Hours (Table) 04/10/23 13:53 Urine Culture - Final Urine,Catheterized Klebsiella pneumoniae Escherichia coli 04/11/23 03:00 Gram Stain - Final Sputum Sputum Culture - Final Klebsiella pneumoniae 04/10/23 13:53 Blood Culture - Preliminary Blood 04/08/23 09:00 Anaerobic Culture - Final Pleural Fluid
[2023-04-13 18:13] LABS: Glucose,Whole Blood 230 mg/dL (70-110)
[2023-04-13] MEDS ORDERED: DEXAMETHASONE SOD PHOSPHATE 4 MG/ML 1 ML VIAL IV ONE (19:48)
[2023-04-13] MEDS ORDERED: ONDANSETRON 4 MG/2 ML VIAL IVP ONE (19:48)
--- NOTE | 2023-04-13 20:31 | P.PN ---
Subjective Progress Note Date: 04/13/23 Patient is a 57-year-old female with a past medical history of hypertension, hyperlipidemia, diabetes type 2, history of CVA/TIA with right-sided weakness, recent history of lung cancer, left upper lobectomy in February 2023, bipolar/depression and currently everyday smoker presents to ER with complaints of difficulty in breathing and chest pain. Patient was recently discharged from the hospital on 03/27/2023. Does have a history of non-small cell lung cancer underwent left upper lobectomy complicated by persistent left lower lobe atelectasis requiring multiple bronchoscopies during recent hospitalization. Valve cultures from 07/22/2022 showed haemophilus influenza. Patient was discharged home on Augmentin. On admission chest x-ray showed similar opacification of the left lung likely secondary to atelectasis and large pleural effusion. No pneumothorax visualized. Small right effusion. EKG showed atrial fibrillation with rapid ventricular response with heart rate 117. Patient is currently not on any anticoagulation. Continued on amiodarone. Laboratory data showed WBC 7.7 hemoglobin 11.9 and platelets 186 ABG showed pH 7.41 pCO2 49 and pO2 105 Sodium 136 potassium 4.5 chloride 99 bicarb is 30 BUN 12 and creatinine 0.47 blood sugar 257 and lactic acid 1.7 and calcium 7.9 ESR not elevated. Troponin x 1 negative and proBNP 3090. Influenza A, B, RSV and COVID-19 PCR not detected. Lung resection on 03/15/2023 with final pathology showing moderate to poorly differentiated pulmonary adenocarcinoma. All margins negative for malignancy. 1 of 3 hilar lymph nodes positive for metastatic carcinoma. 03/30/2023 Patient is seen in follow up today with pulmonary following as well as cardiology and adjustments to medications being done. Home medications reviewed and resumed. CT surgery consulted and discussing with surgery about complete lobectomy of the left. Patient continues with pleural effusions noted and has been started on IV lasix 20mg bid and will continue. Labs reviewed and within normal limits. Will follow up on repeat labs and monitor electrolytes and kidney functions closely. Patient is currently afebrile and denies worsening shortness of breath. Patient is continued on 4L and was sent home on this previously last week. Blood sugars elevated and will continue accuchecks achs and adjust medications accordingly. 03/31/2023 Patient seen and evaluated in follow-up today with pulmonary along with cardiothoracic surgery following. Discussing further about possible complete lobectomy of the left with cardiothoracic. Patient per nursing staff is lethargic and has been receiving scheduled Xanax along with Neurontin and pain medications and will decrease the dose of Xanax admitted as needed as well as decreasing the dose of Neurontin. Patient encouraged to increase activity as tolerated and get up more frequently out of the bed and sit up in the chair and work with physical therapy daily. Blood sugars remained elevated and will adjust and make long acting twice daily and continue with sliding scale. Patient continues on 2-3 L via nasal cannula and weaning FiO2 as tolerated. Patient is currently afebrile denies chest pain or palpitations and denies worsening shortness of breath. Patient continues to use incentive spirometer and needs encouragement to do so. Patient is receiving breathing inhalational treatments as well. 04/01/2023 Patient is seen in follow-up today scheduled to undergo bronchoscopy with pulmonary and cardiothoracic surgery following closely. Chest x-ray ordered for post bronchoscopy which is pending. Patient's blood sugars slightly improved and have added long-acting twice daily along with sliding scale. Encouraged increase activity as tolerated. Patient to be evaluated by physical therapy and would recommend daily. Patient also with incentive spirometer at the bedside encouraged to use at least 10 times every hour while awake. Patient reports not feeling she is having worsening shortness of breath although continues to have shortness of breath. 04/02/2023 Patient seen in follow-up this morning currently nothing by mouth and scheduled to undergo repeat bronchoscopy as follow-up chest x-ray showed near complete opacification on the left as well status post bronchoscopy yesterday. Patient is lethargic but arousable and will adjust the medications again and will discontinue Xanax. Patient worked with physical therapy this patient is significantly weak and has had multiple prolonged hospitalizations would likely be going to [facility] on discharge. Will await clearance from CT surgery pulmonary to discuss discharge planning. Patient is afebrile with no reports of worsening shortness of breath. Patient tolerating diet although given patient's lethargy will recommend aspiration precautions. 04/03/2023 Patient is evaluated today sitting up in the chair, currently wearing BiPAP. Patient underwent bronchoscopy today with Dr. Oshea pending surgical report. Chest xray reveals extensive pleural parenchymal opacity left hemithorax some interval improvement of the aeration of the left lung. Worsening small - to moderate right pleural effusion with adjacent atelectasis and or consolidation. Patient continues on IV lasix 20 mg IV Q12h. Magnesium today 1.5. 04/04/2023 Patient evaluated today sitting up in the chair. Currently on nasal cannula wanting to try and eat breakfast. She is tachypneic using accessory muscles to take a deep breath. She has minimal aeration over the left lung with chest xray today showing near complete white out of the left hemithorax, aeration worsening from yesterday. A small portion of the left upper lung remains aerated now. Ongoing small to moderate left pleural effusion adjacent atelectasis and or consolidation. Patient underwent bronchoscopy again this morning due to the mucus plugging of the left mainstem bronchus. Patient had thick yellow sputum s uctioned from the left main bronchus. Continues on IV lasix 20 mg Q12h, and additionally, has been started on IV steroids toda by pulmonary team. proBNP 2910. Sodium 135, potassium 4.6, BUN 13, creatinine 0.55, magnesium 1.8, glucose 228. 04/05/2023 Patient is seen in follow-up today currently awaiting to undergo bronchoscopy again with cardiothoracic surgery on 04/06/2023. Chest x-ray continues to show near complete opacification on the left. Patient continues with ongoing bilateral pleural effusions and is maintained on IV Lasix. Patient started on IV steroids with pulmonary following closely and blood sugars are completely uncontrolled in the 500s. Will initiate insulin drip and continue with protocol and Accu-Cheks every hour and tighter glycemic control. Patient will be nothing by mouth at midnight again for bronchoscopy and will await report. Will discuss further with CT surgery regarding overall treatment plan. Patient with significant weakness recommend physical therapy daily. Patient needs Encouraged increased activity as tolerated as patient has been mostly sitting and sleeping throughout most of hospitalization. 04/06/2023 Patient is seen in follow-up today currently sitting up in the chair awaiting to undergo repeat bronchoscopy with CT surgery today. Patient continues on 4-5 L via nasal cannula reporting continued shortness of breath. Patient's blood sugars are more controlled and patient is maintained on insulin drip and was currently nothing by mouth for the procedure. Will await surgical report and continue insulin drip for now with close monitoring to monitor for any episodes of hypoglycemia. Patient is afebrile denies chest pain or palpitations. 04/07/2023 Patient is seen and evaluated in follow-up currently in the ICU as of yesterday post bronchoscopy this patient had some increased respiratory distress requiring mechanical ventilation and is currently maintained on FiO2 of 60% with a PEEP of 8. Plan is for repeat bronchoscopy today with pulmonary and tentatively scheduled for repeat bronchoscopies on and Wednesday. Patient remains on insulin drip and blood sugars are more controlled and patient is being started on tube feedings and will adjust the medications and continue sliding scale and add long-acting if needed. Patient is a poorly controlled diabetic with hyperglycemia. Patient is currently afebrile showing A. fib on the monitor. Patient does have history of atrial fibrillation and cardiology has been consulted. Prognosis remains extremely guarded at this time. 04/08/2023 Patient is seen in follow-up today remains in the ICU on mechanical ventilation. Follow-up chest x-ray continues to show complete opacification medication on the left and scheduled for bronchoscopy again today. Patient to also undergo left side thoracentesis. Patient is afebrile and current settings on the vent are FI02 of 60% and peep is 10. Patient prognosis is extremely guarded. 04/09/2023 Patient seen and evaluated in follow-up continues to be in the ICU mechanical ventilation. FiO2 is 100% and PEEP has been increased to 10. Plan is for repeat bronchoscopy with pulmonary well services operator today. Patient has been having daily bronchoscopies for continued mucus plugging. Patient's chest x-rays continue to show left hemithorax and complete opacification. Patient is currently afebrile. Patient maintained on tube feeds and recommend monitoring residuals. Per nursing staff there were some residual noted and patient reported not to have a bowel movement in the last few days. Continue bowel regimen and monitoring of residuals with aspiration precautions. Overall prognosis remains extremely guarded at this time. Blood sugars are becoming slightly more elevated and have added long-acting twice daily and will adjust accordingly. 04/12/2023 Patient was seen and evaluated in follow-up this morning continues to be in the ICU on mechanical ventilation. FiO2 is 50% with a PEEP of 10. Failed weaning trials today. Patietn being followed by multiple medical consultations with plans of possible chest tube insertion with CT surgery. Follow up chest xray continues to show pleural effusions and opacities on the left. Patient is being followed by cardiology and currently off the cardizem drip. Afebrile and tolerating tube feeds. Repeat sputum and urine cultures pending. 04/13/2023 Patient is seen in follow-up continues on mechanical ventilation with difficulty in weaning FiO2 is 50% and PEEP is 5. Multiple medical consultations following including CT surgery with discussion being have a family at the bedside about possible repeat bronchoscopy and possible tracheostomy on 04/14/2023. Patient repeat preliminary urine showing Klebsiella as well as E. coli and patient is being started on meropenem. Patient is currently afebrile and maintained on sedation. Prognosis continues to remain guarded at this time. Review of systems: Unable to assess as patient is on mechanical ventilation and sedated PHYSICAL EXAMINATION: Patient is a 57-year-old female was currently on mechanical ventilation and intubated and sedated Well-developed, well-nourished. Elderly-appearing. obese HEENT: Normocephalic. Neck is supple. Pupils reactive. Nostrils clear. Oral cavity is moist. Neck reveals no JVD, carotid bruits, or thyromegaly. CHEST EXAMINATION: Trachea is central. Symmetrical expansion . Left basilar diminished sounds. No wheezing or rhonchi. CARDIAC: S1, S2 muffled, irregular ABDOMEN: Soft. Bowel sounds present. Nontender. No organomegaly. No abdominal bruits. Extremities: Lower extremity trace edema. No clubbing or cyanosis Neurologically sedated on mechanical ventilation at this time Skin: No rash or skin lesions. Musculoskeletal: No joint swelling or deformity. Assessment: Worsening shortness of breath secondary to persistent left lower lobe atelectasis/collapse despite multiple bronchoscopies during recent admission and Pleural effusion. Patient is status post 4 bronchoscopies this admission and underwent bronchoscopy repeat 04/04/23 with suctioning of thick yellow secretions. Patient underwent bronchoscopy early last week and had some respiratory difficulty post bronchoscopy requiring mechanical ventilation. FiO2 is 50% with a PEEP of 10 and will remain on mechanical ventilation as there are plans for repeat bronchoscopies tomorrow. Patient having difficulty in weaning and not tolerating weaning trials is being considered for tracheostomy and PEG tube placement. Discussion of Pleurx catheter as well to be placed on the left. Haemophilus influenza pneumonia. Recent BAL culture showed haemophilus. Repeat sputum and urine cultures were taken and showing Klebsiella along with E. coli with sensitivities and patient was started on Merrem Paroxysmal atrial fibrillation with rapid ventricular rate. Patient has new onset A-fib on 03/21/2023. Continued on amiodarone. Not on anticoagulation. Patient is off the Cardizem drip and currently rate controlled and cardiology remains to be following Pulmonary adenocarcinoma with recent left upper lobe resection on 03/15/2023 Acute on chronic hypoxic respiratory failure requiring 3-4 L oxygen via nasal cannula on admission. Patient was at 2 L during recent discharge. Severe tracheal bronchomalacia COPD History of CVA with right-sided weakness Diabetes type 2, uncontrolled with hyperglycemia Hypertension Hyperlipidemia History of hepatitis B&C History of alcohol abuse and hides abuse Anxiety/depression and PTSD/bipolar. Currently everyday smoker, reports to quitting on last admission obesity with a bmi of 32.7 GI and DVT prophylaxis Full code Plan: Patient had multiple bronchoscopy this admission and currently in the ICU on mechanical ventilation FiO2 is currently 50% and PEEP increased at 10. Failed weaning trials and there is discussion of tracheostomy with Pleurx catheter with CT surgery tomorrow. Possible PEG tube placement as well. Blood sugars being monitored and will continue current regimen and adjust accordingly Patient to continue on telemetry monitoring for afib and cardiology following and adjusting medications. Patient is not currently on any anticoagulation. Currently rate controlled with cardiology following Follow-up on repeat labs and repeat chest x-ray in the a.m. Continue tube feeds and monitoring for residuals with aspiration precautions and head of the bed elevated 30-45 at all times. Continue bowel regimen. Patient will have tube feedings held for procedure tomorrow. Due to multiple complex medical issues, overall prognosis is extremely guarded at this time The impression and plan of care has been dictated by Rahel Crabtree, Nurse Practitioner as directed. Dr. Gay MD I have performed a history and examination and MDM of this patient, discussed the same with the dictator, and agree with the dictator's assessment and plan as written ,documented as a scribe. Based on total visit time, I have performed more than 50% of the visit. Objective - Vital Signs Vital signs: Vital Signs Temp 99.2 F 04/13/23 12:00 Pulse 58 L 04/13/23 19:00 Resp 21 04/13/23 19:00 BP 126/54 04/13/23 19:00 Pulse Ox 96 04/13/23 19:00 FiO2 50 04/13/23 15:21 Intake & Output 04/13/23 04/13/23 04/14/23 06:59 18:59 06:59 Intake Total 956.328 877.394 Output Total 1655 1520 Balance -698.672 -642.606 Weight 89.2 kg 89.2 kg Intake: IV 120 330 Meropenem 1 gm In Sodium 200 Chloride 0.9% 100 ml @ 33 .3 mls/hr IVPB Q8HR [facility] Rx#:[id number] Sodium Chloride 0.9% 1, 120 130 000 ml @ 20 mls/hr IV . Q24H [facility] Rx#:[id number] Intake, IV Titration 504.328 193.394 Amount Heparin Sod,Pork in 0.45% 241.842 NaCl 25,000 unit In 0.45 % NaCl 1 250ml.bag @ 10. 07 UNITS/KG/HR 10 mls/hr IV .Q24H [facility] Rx#: [id number] propofoL 1,000 mg In 262.486 193.394 Empty Bag 1 bag @ 15 MCG/ KG/MIN 8.577 mls/hr IV . [id number] [facility] Rx#:[id number] Tube Feeding 242 264 Other 90 90 Output: Urine 1655 1520 Other: Voiding Method Indwelling Catheter Indwelling Catheter - Labs CBC & Chem 7: 04/13/23 06:18 04/13/23 06:18 Labs: Abnormal Lab Results - Last 24 Hours (Table) 04/12/23 04/12/23 04/13/23 Range/Units 23:39 23:57 02:36 RBC (3.80-5.40) m/uL Hgb (11.4-16.0) gm/dL Hct (34.0-46.0) % APTT (22.0-30.0) sec ABG pH (7.35-7.45) ABG pCO2 (35-45) mmHg ABG pO2 (83-108) mmHg ABG HCO3 (21-25) mmol/L ABG Total CO2 (19-24) mmol/L Sodium (137-145) mmol/L Potassium (3.5-5.1) mmol/L Chloride (98-107) mmol/L Carbon Dioxide (22-30) mmol/L BUN (7-17) mg/dL Glucose (74-99) mg/dL POC Glucose (mg/dL) 161 H 165 H 166 H (70-110) mg/dL Calcium (8.4-10.2) mg/dL 04/13/23 04/13/23 04/13/23 Range/Units 04:20 06:18 06:18 RBC 3.49 L (3.80-5.40) m/uL Hgb 10.9 L (11.4-16.0) gm/dL Hct 32.7 L (34.0-46.0) % APTT (22.0-30.0) sec ABG pH 7.50 H (7.35-7.45) ABG pCO2 55 H (35-45) mmHg ABG pO2 78 L (83-108) mmHg ABG HCO3 43 H* (21-25) mmol/L ABG Total CO2 45 H (19-24) mmol/L Sodium 136 L (137-145) mmol/L Potassium 3.4 L (3.5-5.1) mmol/L Chloride 96 L (98-107) mmol/L Carbon Dioxide 35 H (22-30) mmol/L BUN 22 H (7-17) mg/dL Glucose 160 H (74-99) mg/dL POC Glucose (mg/dL) (70-110) mg/dL Calcium 7.9 L (8.4-10.2) mg/dL 04/13/23 04/13/23 04/13/23 Range/Units 06:18 06:22 06:32 RBC (3.80-5.40) m/uL Hgb (11.4-16.0) gm/dL Hct (34.0-46.0) % APTT 45.6 H (22.0-30.0) sec ABG pH (7.35-7.45) ABG pCO2 (35-45) mmHg ABG pO2 (83-108) mmHg ABG HCO3 (21-25) mmol/L ABG Total CO2 (19-24) mmol/L Sodium (137-145) mmol/L Potassium (3.5-5.1) mmol/L Chloride (98-107) mmol/L Carbon Dioxide (22-30) mmol/L BUN (7-17) mg/dL Glucose (74-99) mg/dL POC Glucose (mg/dL) 170 H 156 H (70-110) mg/dL Calcium (8.4-10.2) mg/dL 04/13/23 04/13/23 Range/Units 12:05 18:12 RBC (3.80-5.40) m/uL Hgb (11.4-16.0) gm/dL Hct (34.0-46.0) % APTT (22.0-30.0) sec ABG pH (7.35-7.45) ABG pCO2 (35-45) mmHg ABG pO2 (83-108) mmHg ABG HCO3 (21-25) mmol/L ABG Total CO2 (19-24) mmol/L Sodium (137-145) mmol/L Potassium (3.5-5.1) mmol/L Chloride (98-107) mmol/L Carbon Dioxide (22-30) mmol/L BUN (7-17) mg/dL Glucose (74-99) mg/dL POC Glucose (mg/dL) 245 H 230 H (70-110) mg/dL Calcium (8.4-10.2) mg/dL Microbiology - Last 24 Hours (Table) 04/10/23 13:53 Urine Culture - Final Urine,Catheterized Klebsiella pneumoniae Escherichia coli 04/11/23 03:00 Gram Stain - Final Sputum Sputum Culture - Final Klebsiella pneumoniae 04/10/23 13:53 Blood Culture - Preliminary Blood
[2023-04-13] MEDS: LACTATED RINGERS 1,000 ML IV SCH (21:22)
[2023-04-13] MEDS ORDERED: Potassium Replacement Protocol 1 EACH MISC MISCELLANE PRN (23:04)
[2023-04-14 01:00] LABS: Glucose,Whole Blood 116 mg/dL (70-110)
[2023-04-14] MEDS: MEROPENEM 1 GM in SODIUM CHLORIDE 0.9% 100 ML IVPB SCH ×3 (01:07→16:53)
[2023-04-14] MEDS: POTASSIUM BICARBONATE/CIT AC 20 MEQ TABLET.EFF NG-TUBE SCH ×2 (01:07→02:38)
[2023-04-14] MEDS: INSULIN ASPART (NovoLOG) 100 UNIT/ML VIAL SQ SCH ×4 (01:08→17:15)
[2023-04-14] MEDS: HEPARIN SOD,PORK IN 0.45% NACL 25,000 UNIT in 0.45% NACL 1 250ML.BAG IV SCH ×2 (01:11→23:44)
[2023-04-14 04:29] LABS: ABG Base Excess 20.4 mmol/L; ABG Oxygen Saturation 95.4 % (94-97); ABG PCO2 54 mmHg (35-45); ABG PH 7.52 (7.35-7.45); ABG PO2 68 mmHg (83-108); ABG TCO2 45 mmol/L (19-24); Allen Test Performed? Yes
[2023-04-14 04:56] LABS: ABG HCO3 43 mmol/L (21-25)
[2023-04-14] MEDS: INSULIN DETEMIR (LEVEMIR) 100 UNIT/ML SYR SQ SCH ×2 (08:17→20:29)
[2023-04-14] MEDS: FUROSEMIDE 10 MG/ML 4 ML VIAL IV SCH (08:23)
[2023-04-14] MEDS: predniSONE 20 MG TAB PO SCH (08:23)
[2023-04-14] MEDS: guaiFENesin 600 MG TABLET.ER PO SCH (08:23)
[2023-04-14] MEDS: THIAMINE 100 MG TAB PO SCH (08:23)
[2023-04-14] MEDS: GABAPENTIN 400 MG CAP PO SCH ×3 (08:23→22:20)
[2023-04-14] MEDS: AMIODARONE 200 MG TAB PO SCH (08:23)
[2023-04-14] MEDS: ATORVASTATIN 10 MG TAB PO SCH (08:23)
[2023-04-14] MEDS: FOLIC ACID 1 MG TAB PO SCH (08:23)
[2023-04-14] MEDS: CHLORHEXIDINE GLUCONATE 15 ML CUP MUCOUS MEM SCH ×2 (08:23→20:30)
[2023-04-14] MEDS: PANTOPRAZOLE 40 MG TABLET PO SCH (08:23)
[2023-04-14] MEDS: SENNOSIDES 8.6 MG TAB PO SCH ×2 (08:24→22:20)
[2023-04-14] MEDS: SODIUM CHLORIDE 0.9% 1,000 ML IV SCH (08:24)
[2023-04-14 08:26] LABS: Basophils % (A) 0 %; Eosinophils # (A) 0.1 k/uL (0-0.7); Eosinophils % (A) 1 %; HCT 32.3 % (34.0-46.0); HGB 10.6 gm/dL (11.4-16.0); Hypochromasia Moderate; Lymphocytes # (A) 1.4 k/uL (1.0-4.8); Lymphocytes % (A) 14 %; MCH 30.3 pg (25.0-35.0); MCHC 32.9 g/dL (31.0-37.0); MCV 92.3 fL (80.0-100.0); Monocytes # (A) 0.5 k/uL (0-1.0); Monocytes % (A) 5 %; Neutrophils # (A) 7.6 k/uL (1.3-7.7); Neutrophils % (A) 79 %; Platelet Count 128 k/uL (150-450); Poikilocytosis Slight; RBC 3.49 m/uL (3.80-5.40); RDW 13.9 % (11.5-15.5); WBC 9.6 k/uL (3.8-10.6)
--- NOTE | 2023-04-14 08:29 | XR ---
EXAMINATION TYPE: XR chest 1V portable DATE OF EXAM: 04/14/2023 COMPARISON: 04/13/2023 HISTORY: Respiratory failure TECHNIQUE: Single frontal view of the chest is obtained. FINDINGS: ET and NG tube stable. There is a increasing pleural fluid on the left with a large effusi on now seen. Calcified granuloma right hilum. Bilateral consolidation and pleural effusion. Bilateral shoulder arthropathy. Degenerative change of the spine. IMPRESSION: 1. Near complete opacification left hemithorax likely representing combination of consolidation and p leural effusion. There is abrupt cut off of the left mainstem bronchus which may represent endobronch ial lesion or mucous plug.. 2. Correlate for CHF.
[2023-04-14] MEDS: ACETAMINOPHEN TAB 325 MG TAB PO PRN (08:42)
[2023-04-14 08:57] LABS: ALT 20 U/L (4-34); AST 35 U/L (14-36); African American GFR (CKD) >90 (>60 ml/min/1.73 sqM); Albumin 2.6 g/dL (3.5-5.0); Alkaline Phosphatase 60 U/L (38-126); Anion Gap 5 mmol/L; Blood Urea Nitrogen 21 mg/dL (7-17); Calcium 7.9 mg/dL (8.4-10.2); Carbon Dioxide 39 mmol/L (22-30); Chloride 95 mmol/L (98-107); Glucose 119 mg/dL (74-99); Magnesium 1.7 mg/dL (1.6-2.3); Non-African American GFR(CKD) >90 (>60 ml/min/1.73 sqM); Potassium 3.8 mmol/L (3.5-5.1); Sodium 139 mmol/L (137-145); Total Bilirubin 0.9 mg/dL (0.2-1.3); Total Protein 5.6 g/dL (6.3-8.2)
[2023-04-14] MEDS ORDERED: MAGNESIUM SULFATE-D5W PMX 1 GM in DEXTROSE/WATER 1 100ML.BAG IVPB ONE (09:01)
--- NOTE | 2023-04-14 09:02 | P.PN ---
Subjective Progress Note Date: 04/14/23 04/12/2023, the patient is being seen for a follow-up. Note that the patient had a very complicated postoperative course following resection of a left upper lobe adenocarcinoma. The patient was noted to have adenocarcinoma of the left upper lobe and the patient underwent a robotic assisted thoracoscopic left upper lobe lobectomy along with mediastinal lymph node dissection. The patient was found to have T1b N1 M0 disease. Postoperative course was complicated by recurrent atelectasis of the left lower lobe which was attributed to pneumonia, mucous plugs, COPD and severe tracheobronchomalacia. The patient required multiple bronchoscopies with some partial reexpansion of the left lung. The patient was also covered with a broad-spectrum antibiotics. She is known to have COPD, tracheobronchomalacia, hypertension, hyperlipidemia and previous history of CVA back in 2016 that the resultant right-sided weakness. The patient also has hepatitis B, hepatitis C, bipolar disorder and history of depression. She has previous history of IV heroin use and her last usage was in August 2018. She was briefly discharged home to be readmitted for worsening shortness of breath. She ultimately went into respiratory failure during the second hospitalization and for now, the patient remains intubated and mechanically ventilated. On today's evaluation, the patient is on propofol and the patient is also on assist-control mode of mechanical ventilation with a rate of 20, tidal volume of 350, FiO2 of 5 0% with a PEEP of 10. Propofol is running at 50 mcg/kg/min. Chest x-ray shows evidence of a left upper lobe lobectomy, moderate left-sided pleural effusion along with a small right-sided pleural effusion. ET tube is in a good location. NG tube also in good location. The blood gas from this morning shows a pH of 7.53 with a pCO2 of 52 and pO2 of 61. She is currently in normal sinus rhythm. She remains on IV heparin. In terms of cultures, most of the bronchial cultures came back negative with exception of a lavage that was obtained back in 03/23/2023 that showed haemophilus influenza. The patient is currently not on DuoNeb updrafts, Mucomyst, in addition to a combination of budesonide and Pulmicort. She is not receiving any antibiotics for now. She remains on IV Solu-Medrol 30 mg every 24 hours. SHe was having atrial fibrillation and she is back to sinus, she remains on IV heparin, amiodarone 200 mg p.o. daily and Cardizem dripn is off . The patient is also on Levemir insulin 8 units twice daily and NovoLog sliding scale coverage. She is afebrile. She remains of antibiotics for now. She is receiving enteral feeding for nutritional support. The patient is receiving vital high-protein at the rate of 29 mL an hour. IV fluids are in the form of 0.9 at 20 mL an hour. Sodium is at 140, potassium 3.5, bicarbonate 36, BUN is at 26 and a creatinine of 0.6. Nevertheless, 7.7, hemoglobin was at 10.7 and a platelet count is at 161. She is on no pressors. On 04/13/2023, the patient is being seen for a follow-up. The patient remains intubated on a mechanical ventilator. She remains sedated on propofol which is running at 50 mcg/kg/m and the patient is adequately sedated. She remains on a mechanical ventilator on assist control mode at the rate of 20, tidal volumes of 350, FiO2 50% with a PEEP of 10. Current pulse ox is 95%. The blood gas from today shows a pH of 7.5 with a pCO2 of 55 and pO2 of 78. The chest x-ray shows complete opacification of the left lung. This is related to a combination of atelectasis, consolidation and possibly a small left-sided pleural effusion. Most recent bronchoscopy that was done on 04/11/2022 is yielding gram-negative bacillus and the patient will be covered with broad-spectrum antibiotics. Suggest IV meropenem. Clinically stable. Hemodynamically stable. Cardiac rhythm is A. fib with a controlled rate. The patient remains on IV heparin. The patient is off Cardizem. For the time being. Also, her white cell count is at 7.5, hemoglobin is at 10.9 with a platelet count of 156. Sodium level is at 136, potassium levels at 3.4, serum bicarb is at 35 with a BUN of 22 and a creatinine of 0.6. The patient is on enteral feeding for nutritional support and she is receiving vital high-protein at the rate of 22 mL an hour. The patient is on bronchodilators. The patient is oral prednisone at a dose of 20 mg by mouth daily as part of her breast taper. She is on Lasix 40 mg IV every 8 hours and her fluids balance is -1.7 L over the past 24 hours. She has been on Levemir insulin for blood sugar control and the patient is receiving 8 units twice a day along with a sliding scale coverage. In terms of her A. fib, she is on IV heparin and she is also on amiodarone 200 mg by mouth twice a day. Cardizem drip is off. Rate is adequately controlled at this point. No fever. 04/14/2023, I'm seeing the patient for a follow-up. He remains intubated on a mechanical ventilator. Remains on propofol at 50 g and she is calm and comfortable. No major change in her condition. Of significance is development of the fever with temperature of 102 and the patient had another sample of respiratory culture that came back positive for Klebsiella. I have cover this patient with IV meropenem. Cultures were also sent. The plan was to proceed with a tracheostomy tube and a Pleurx catheter insertion. I'm not sure the family has given consent for both procedures. The left lung remains completely opacified. The cardiothoracic surgery is intending to do another bronchoscopy today as the patient is complete collapse of the left lung. Remains on a mechanical ventilator on assist control mode with a rate of 20, tidal volume of 50, FiO2 of 50% with a PEEP of 10. Blood gas from today shows a pH of 7.52 with a pCO2 of 54 and pO2 of 68. The patient is having limited distally secretions. She is on no pressors at this point in time. She is maintaining her own blood pressure. The white suppositive 9.6. Hemoglobin 10.6. Electrolytes are still pending from today and the yesterday's electrolytes and renal function was within normal limits pH is still receiving enteral feeding for nutritional sup port. She remains on IV Lasix. Fluid balance is -407 mL over the past 24 hours. IV fluids are in the form of lactated Ringer at the rate of 20 mL an hour. Cardiac rhythm is sinus as the patient is currently on amiodarone 200 mg daily and she is also on IV heparin. Prednisone is currently at a dose of 20 mg by mouth daily. Objective - Vital Signs Vital signs: Vital Signs Temp 102 F H 04/14/23 08:00 Pulse 63 04/14/23 08:00 Resp 26 H 04/14/23 08:00 BP 126/45 04/14/23 08:00 Pulse Ox 98 04/14/23 08:00 FiO2 50 04/14/23 08:00 Intake & Output 04/13/23 04/14/23 04/14/23 18:59 06:59 18:59 Intake Total 877.394 950 20 Output Total 1520 715 50 Balance -642.606 235 -30 Weight 89.2 kg 89.7 kg Intake: IV 330 300 20 Lactated Ringers 1,000 ml 200 20 @ 20 mls/hr IV .Q24H [facility] Rx#:[id number] Meropenem 1 gm In Sodium 200 100 Chloride 0.9% 100 ml @ 33 .3 mls/hr IVPB Q8HR [facility] Rx#:[id number] Sodium Chloride 0.9% 1, 130 000 ml @ 20 mls/hr IV . Q24H [facility] Rx#:[id number] Intake, IV Titration 193.394 550 Amount Heparin Sod,Pork in 0.45% 250 NaCl 25,000 unit In 0.45 % NaCl 1 250ml.bag @ 10. 07 UNITS/KG/HR 10 mls/hr IV .Q24H [facility] Rx#: [id number] propofoL 1,000 mg In 193.394 300 Empty Bag 1 bag @ 15 MCG/ KG/MIN 8.577 mls/hr IV . [id number] [facility] Rx#:[id number] Tube Feeding 264 0 Other 90 100 Output: Urine 1520 715 50 Other: Voiding Method Indwelling Catheter Indwelling Catheter - Exam CONSTITUTIONAL: Remains sedated and intubated, no acute distress RESPIRATORY: Lungs sounds diminished in the left lung base. Respirations even, nonlabored on mechanical ventilation. Current ventilator settings FiO2 50%, PEEP 10, tidal volume 350, respiratory rate 20. Patient is breathing over the ventilator. 8.0 ET tube present, 23 at the lip CARDIOVASCULAR: S1, S2 present. Slow but regular rate and rhythm, sinus bradycardia on telemetry. Doppler lower extremity pulses bilaterally. Bilateral lower extremity pitting edema present, Anson wraps present from toes to knees, SCDs present. Lungs sounds are diminished in the left lung base. Breasts on the right than adequate. No significant alcohol or wheezes. GASTROINTESTINAL: Abdomen soft, nontender, nondistended. Active bowel sounds present 4 quadrants. GENITOURINARY: Cameron catheter present draining clear yellow urine, INTEGUMENTARY: Skin is warm and dry NEUROLOGIC: Currently sedated with propofol. Patient does open her eyes, moving left arm and leg to command, not moving right side currently although per nursing she does move the right side off sedation - Labs CBC & Chem 7: 04/14/23 08:01 04/13/23 21:38 Labs: Abnormal Lab Results - Last 24 Hours (Table) 04/13/23 04/13/23 04/13/23 Range/Units 12:05 18:12 21:38 RBC (3.80-5.40) m/uL Hgb (11.4-16.0) gm/dL Hct (34.0-46.0) % Plt Count (150-450) k/uL APTT (22.0-30.0) sec ABG pH (7.35-7.45) ABG pCO2 (35-45) mmHg ABG pO2 (83-108) mmHg ABG HCO3 (21-25) mmol/L ABG Total CO2 (19-24) mmol/L Potassium 3.4 L (3.5-5.1) mmol/L POC Glucose (mg/dL) 245 H 230 H (70-110) mg/dL 04/14/23 04/14/23 04/14/23 Range/Units 00:59 04:28 08:01 RBC (3.80-5.40) m/uL Hgb (11.4-16.0) gm/dL Hct (34.0-46.0) % Plt Count (150-450) k/uL APTT 31.1 H (22.0-30.0) sec ABG pH 7.52 H (7.35-7.45) ABG pCO2 54 H (35-45) mmHg ABG pO2 68 L (83-108) mmHg ABG HCO3 43 H* (21-25) mmol/L ABG Total CO2 45 H (19-24) mmol/L Potassium (3.5-5.1) mmol/L POC Glucose (mg/dL) 116 H (70-110) mg/dL 04/14/23 Range/Units 08:01 RBC 3.49 L (3.80-5.40) m/uL Hgb 10.6 L (11.4-16.0) gm/dL Hct 32.3 L (34.0-46.0) % Plt Count 128 L (150-450) k/uL APTT (22.0-30.0) sec ABG pH (7.35-7.45) ABG pCO2 (35-45) mmHg ABG pO2 (83-108) mmHg ABG HCO3 (21-25) mmol/L ABG Total CO2 (19-24) mmol/L Potassium (3.5-5.1) mmol/L POC Glucose (mg/dL) (70-110) mg/dL Microbiology - Last 24 Hours (Table) 04/10/23 13:53 Blood Culture - Preliminary Blood 04/10/23 13:53 Urine Culture - Final Urine,Catheterized Klebsiella pneumoniae Escherichia coli 04/11/23 03:00 Gram Stain - Final Sputum Sputum Culture - Final Klebsiella pneumoniae Assessment and Plan Plan: Acute on chronic shortness of breath without any worsening in her hypoxemia. The patient's shortness of breath is multifactorial. The patient is post op for a left upper lobe resection. She has also complete atelectasis of left lower lobe and several attempts to reexpand the lung on the left has failed as the patient has significant tracheal bronchomalacia, mucus, Haemophilus influenza pneumonia and narrowing of the left lower lobe orifice as noted on several bronchoscopies. The patient was reintubated on 04/06/2023 and she has been on a mechanical ventilator since. The last bronchoscopy was done on 04/09/2023, the cultures from respiratory samples collected on 04/10/2023 showed Saline E. coli. Subsequent cultures from 04/11/2023 showed Klebsiella and the patient is currently on IV meropenem. Fever, likely secondary to an underlying pneumonia Complete opacification of the left lung/left lower lobe, combination of consolidation/pneumonia/pleural effusion Pulmonary adenocarcinoma with a 1.5 cm mass in the left upper lobe. Surgery was done on and the patient has a final pathologic staging is T1b N1 M0 disease. Left lung collapse, essentially the left lower lobe secondary to mucous plugs. Bronchoscopy was done during the early hospitalization the patient was found to have mucous plugs, significant tracheal bronchomalacia, narrowing of the left lower lobe bronchial orifice. There is only a small left-sided pleural effusion and the left lung base. left-sided pleural effusion, Postthoracentesis done on 04/08/2023 with removal of 750 cc of pleural fluid, awaiting final cytology. Tracheobronchomalacia, severe New-onset atrial fibrillation with rapid ventricular response, started on 03/22. The patient continued to have episodes of PAF and currently she is presenting with the same. She is in sinus History of chronic obstructive pulmonary disease. History of CVA. History of diabetes mellitus. History of hypertension. History of hyperlipidemia. History of alcohol abuse and heroin abuse. History of hepatitis B and C. Plan Continue ventilator support, no changes for today Chest x-ray was noted and the patient has small right-sided pleural effusion, left lung is completely phillip out Continue IV meropenem IV meropenem Cardiac rhythm is sinus this morning although the patient continues to have episodes of A. fib patient remains on IV heparin and amiodarone Failed the weaning attempts yesterday, no weaning attempts for today. The plan is to do a tracheostomy tube once is consent obtained from family Pleurx catheter will be placed on hold as long as there is a suspicion for a pleural space infection/pneumonia Keep the patient has sedation for now Keep the patient off Cardizem drip Change the Lasix to 40 mg every 24 hours as the patient was becoming progressi vely more alkalotic and she is already in negative fluid balance IV fluids to KVO Continue enteral feeding for nutritional support Condition is critical and will continue to follow Continue supportive care Critical care evaluation was done in more than 30 minutes Time with Patient: Greater than 30
[2023-04-14] MEDS: IPRATROPIUM-ALBUTEROL 3 ML NEB INHALATION SCH ×4 (09:10→20:18)
[2023-04-14] MEDS: BUDESONIDE 1 MG/2 ML NEBU INHALATION SCH ×2 (09:10→20:18)
[2023-04-14] MEDS: ACETYLCYSTEINE 800 MG/4 ML VIAL INHALATION SCH ×4 (09:12→20:17)
[2023-04-14] MEDS: FORMOTEROL FUMARATE 20 MCG/2 ML NEBU INHALATION SCH ×2 (09:12→20:18)
[2023-04-14] MEDS ORDERED: POTASSIUM BICARBONATE/CIT AC 20 MEQ TABLET.EFF NG-TUBE SCH ×2 (10:00→22:00)
[2023-04-14] MEDS ORDERED: IBUPROFEN ORAL SUSP 100 MG/5 ML CUP PO ONE (11:01)
[2023-04-14 12:38] LABS: Glucose,Whole Blood 208 mg/dL (70-110)
[2023-04-14] MEDS ORDERED: fentaNYL (PF) 50 MCG/ML 2 ML AMP ONE (13:34)
[2023-04-14 14:27] LABS: Glucose,Whole Blood 240 mg/dL (70-110)
--- NOTE | 2023-04-14 14:27 | FL ---
EXAMINATION TYPE: FL guidance operating room DATE OF EXAM: 04/14/2023 HISTORY: Fluoroscopy time Total dose area product (DAP) in uGy*m?, mGy*cm? (or similar): 0.19911 IMPRESSION: 1. Fluoroscopy time.
--- NOTE | 2023-04-14 14:28 | P.OP ---
Date of Procedure: 04/14/23 Preoperative Diagnosis: Left mainstem bronchus occlusion, left pleural effusion, status post left upper lobectomy. Postoperative Diagnosis: Same Procedure(s) Performed: Fiberoptic bronchoscopy with evacuation of left mainstem bronchus mucous plug, placement of left Pleurx catheter with fluoroscopic guidance. Implants: Pleurx catheter Anesthesia: DION Surgeon: Beka June Estimated Blood Loss (ml): 5 Pathology: none sent Condition: stable Disposition: ICU Indications for Procedure: 57-year-old female is status post left upper lobectomy. She has had recurrent mucus plugging in the left mainstem bronchus. She has had multiple bronchoscopies. Following a bronchoscopy last week, she aspirated and had respiratory arrest. She developed infiltrate in the right lung. She was treated with pulmonary support as well as antibiotics. She had further serial bronchoscopy and left thoracentesis with improvement in the left lung. She has not had a bronchoscopy in the last 5 days and has complete occlusion of the left mainstem bronchus with recurrent pleural effusion. Operative Findings: Thick mucus plugging the distal left mainstem bronchus. Serous fluid in the left pleural space. Description of Procedure: She was brought to the operating room and placed supine on the table. She was already intubated from the ICU. Fiberoptic bronchoscopy was performed with findings of a left mainstem bronchus mucous plug which was suctioned free. The endobronchial tree was explored infarct suctioned free of all mucous. Irrigation of the left side was performed with 20 mL of saline. The left chest was sterilely prepped and draped along with the left upper quadrant. 18-gauge needle was used to function pleural space in the posterior axillary line in the seventh interspace. Serous fluid was obtained and a guidewire threaded into the left chest under fluoroscopic guidance. This site was sized to 1.5 cm and a counterincision was made in the left upper quadrant a 1 cm. Pleurx catheter was tunneled from the abdominal incision to the chest incision. Introducer and dilator were placed over the wire and the Pleurx catheter was threaded into the chest cavity under fluoroscopic guidance. It was connected to suction and clear serous fluid was drained. Upon completion of the drainage of the pleural space the Pleurx catheter was connected to a Pleur-evac drainage unit. Pleurx catheter was secured at the exit site with 2-0 silk. The thoracic incision was closed with 4-0 Vicryl in 2 layers. Skin glue was applied to this incision in a standard Pleurx dressing was applied to the Pleurx exit site. Fluoroscopy demonstrated good expansion of the lung. Patient was transferred back to ICU in stable condition.
--- NOTE | 2023-04-14 15:05 | XR ---
EXAMINATION TYPE: XR chest 1V portable DATE OF EXAM: 04/14/2023 Comparison: 04/14/2023 Clinical History: 57-year-old female post bronch Findings: ETT and NG tubes are satisfactory. Left basilar chest tube is present. There is improvement in the pr evious white out of the left hemithorax. A moderate sized basilar pneumothorax is noted measuring up to 4.0 cm. Opacity along the medial left upper lung was seen previously the patient's white out. Inte rstitial density similar to slightly worsened on the right. Some hazy density at the right base persi sts. Impression: 1. Interval placement of left sided chest tube. Improvement in the previous white out of the left hem ithorax but with residual [id number] effusion and moderate sized left basilar pneumothorax gina suring up to 4.0 cm. 2. Possible underlying pulmonary vascular congestion similar to slightly worsened from earlier today. Small right pleural effusion persists.
[2023-04-14 17:17] LABS: Glucose,Whole Blood 253 mg/dL (70-110)
[2023-04-14] MEDS ORDERED: Potassium Replacement Protocol 1 EACH MISC MISCELLANE PRN (20:10)
[2023-04-14 20:27] LABS: Glucose,Whole Blood 162 mg/dL (70-110)
[2023-04-14 20:55] LABS: ABG Base Excess 18.3 mmol/L; ABG Oxygen Saturation 93.2 % (94-97); ABG PCO2 52 mmHg (35-45); ABG PH 7.51 (7.35-7.45); ABG PO2 62 mmHg (83-108); ABG TCO2 43 mmol/L (19-24); Allen Test Performed? Yes
[2023-04-14 20:57] LABS: ABG HCO3 41 mmol/L (21-25)
[2023-04-14] MEDS: guaiFENesin SYRUP 100MG/5ML 200 MG/10 ML CUP PO SCH (22:20)
[2023-04-14] MEDS: LACTATED RINGERS 1,000 ML IV SCH (22:21)
--- NOTE | 2023-04-14 23:09 | P.CONS ---
History of Present Illness - Reason for Consult Consult date: 04/14/23 Pneumonia, continued fever Requesting physician: Radha Rashid - Chief Complaint Fever x 2 days - History of Present Illness Patient is a 57-year-old female with a past medical history significant for non-small cell lung cancer in this patient who is status post left upper lobe resection, presenting to the hospital more than 2 weeks ago for evaluation of increasing shortness of breath getting progressively worse due to before presentation to the hospital apparently patient was just discharged from hospital before readmitted within 48 hours patient has been managed by pulmonary and CT surgery in this patient who did have a multiple bronchoscopy during this hospital stay including clearing of the mucous plug removal of foreign body on 04/01/2023 patient did have worsening of respiratory status requiring intubation and has been on the ventilator patient on presentation to the hospital was afebrile did have a low-grade fever of 99.8 F on 04/11/2023 low-grade fever on 04/12/2023 as well as yesterday and this morning the patient spiked a fever of 102 F patient did have a sputum and pleural fluid culture during this admission as well as blood cultures has been negative she did have urine culture done on 04/10/2023 that grew Klebsiella and E. coli in sputum grew Klebsiella on 04/11/2023 patient was started on meropenem yesterday because of this new fever infectious disease was consulted today for further management. At the time of my evaluation patient is afebrile patient is hemodynamically stable not requiring any pressor support patient is currently on 50% FiO2 and no significant purulent secretions through the ET has been reported patient has been tolerating her tube feeds did have some diarrhea she did have a Cameron catheter since her intubation and per the nursing staff did have a significant foul-smelling urine patient did have influenza RSV and COVID testing negative test, patient chest x-ray this morning need to be done with the patient on the left hemothorax likely combination of consolidation and effusion correlate for CHF, patient is status post bronchoscopy with diminution of the left mainstem bronchus mucous plugging and placement of laparoscopic guided fluoroscopy guidance, All of the information has been obtained from review of the chart and diagnostic studies the patient is currently intubated on the vent and cannot provide any History patient did have medical peripheral IVs currently denies of any swelling redness Review of Systems Positive points has been mentioned in HPI complete review could not be obtained because patient intubated on the vent Past Medical History Past Medical History: Atrial Fibrillation, Cancer, COPD, CVA/TIA, Diabetes Mellitus, Hyperlipidemia, Hypertension, Liver Disease, Skin Disorder, Vascular Disorder Additional Past Medical History / Comment(s): HX past alcoholism and heroin abuse, "DX hepatitis b and c", stroke in 04/2015 with right sided weakness, recent dx. lung cancer, rash lower legs, circulation issues lower legs-causes leg pain History of Any Multi-Drug Resistant Organisms: None Reported Past Surgical History: Cholecystectomy, Orthopedic Surgery, Tonsillectomy, Tubal Ligation Additional Past Surgical History / Comment(s): esophageal surgery as a baby, cervix biopsy. Left ankle fusion, right ankle, recent bronchoscopy, left upper lobectomy (feb 2023) Past Anesthesia/Blood Transfusion Reactions: Motion Sickness, Postoperative Nausea & Vomiting (PONV) Additional Past Anesthesia/Blood Transfusion Reaction / Comm: no reaction to blood Past Psychological History: Bipolar, Depression, PTSD Smoking Status: Current every day smoker Past Alcohol Use History: None Reported Past Drug Use History: Heroin Additional Drug Use History / Comment(s): Last heroin injection 2018 - Past Family History Mother Additional Family Medical History / Comment(s): "chorea bill disease" Father Family Medical History: Liver Disease Additional Family Medical History / Comment(s): alcoholic Medications and Allergies Home Medications Medication Instructions Recorded Confirmed Type Atorvastatin [Lipitor] 10 mg PO DAILY 02/12/22 03/29/23 History Furosemide [Lasix] 20 mg PO DAILY 02/12/22 03/29/23 History Fluticasone/Umeclidin/Vilanter 1 puff INHALATION RT-DAILY 03/09/23 03/29/23 History [Trelegy Ellipta 100-62.5-25] LORazepam [Ativan] 0.5 mg PO BID PRN 03/09/23 03/29/23 History Amiodarone [Cordarone] 400 mg PO BID #120 tab 03/27/23 03/29/23 Rx Amoxic-Pot Clav 875-125Mg 1 tab PO BID 30 Days #60 tab 03/27/23 03/29/23 Rx [Augmentin 875-125] Docusate [Colace] 100 mg PO DAILY PRN 7 Days #20 cap 03/27/23 03/29/23 Rx Folic Acid 1 mg PO DAILY #30 tab 03/27/23 03/29/23 Rx Magnesium Oxide [Mag-Ox] 400 mg PO BID 5 Days #10 tab 03/27/23 03/29/23 Rx Nicotine 7Mg/24Hr Patch [Habitrol] 1 patch TRANSDERM DAILY #7 patch 03/27/23 03/29/23 Rx Pantoprazole [Protonix] 40 mg PO DAILY #30 tab 03/27/23 03/29/23 Rx Thiamine [Vitamin B-1] 100 mg PO DAILY #30 tab 03/27/23 03/29/23 Rx Dulaglutide [Trulicity] 1.5 mg SQ MO 03/29/23 03/29/23 History Gabapentin 800 mg PO TID 03/29/23 03/29/23 History HYDROcodone/APAP 5-325MG [[place] 1 tab PO Q6HR PRN 03/29/23 03/29/23 History 5-325] INSULIN ASPART (NovoLOG) [NovoLOG 12 unit SQ DIRECTED 03/29/23 03/29/23 History (formulary)] INSULIN ASPART (NovoLOG) [NovoLOG See Protocol SQ DIRECTED 03/29/23 03/29/23 History (formulary)] Insulin Glargine,Hum.rec.anlog 15 units SQ DAILY 03/29/23 03/29/23 History [Lantus Solostar Pen] Pioglitazone [Actos] 15 mg PO DAILY 03/29/23 03/29/23 History Allergies Allergy/AdvReac Type Severity Reaction Status Date / Time hydromorphone HCl Allergy Unknown Rash/Hives/ Verified 03/29/23 12:18 [From Dilaudid] Itchy Physical Exam Vitals: Vital Signs Temp Pulse Resp BP Pulse Ox FiO2 04/14/23 16:21 110 H 04/14/23 15:59 110 H 04/14/23 15:50 50 04/14/23 15:00 99.4 F 118 H 20 89/58 98 04/14/23 14:17 50 04/14/23 13:00 65 24 114/47 97 04/14/23 12:59 64 04/14/23 12:49 64 04/14/23 12:00 101.7 F H 68 45 H 128/44 95 50 04/14/23 11:54 50 04/14/23 11:33 50 04/14/23 11:31 50 04/14/23 11:00 102.2 F H 66 22 121/46 96 04/14/23 10:00 68 26 H 162/61 98 04/14/23 09:35 60 04/14/23 09:24 60 04/14/23 09:23 60 04/14/23 09:13 60 04/14/23 09:00 65 25 H 122/52 98 04/14/23 08:00 102 F H 63 26 H 126/45 98 50 04/14/23 07:54 50 04/14/23 07:00 61 25 H 127/49 97 04/14/23 06:00 62 23 134/50 99 04/14/23 05:00 63 23 134/50 04/14/23 04:44 64 20 140/53 98 04/14/23 04:00 50 04/14/23 03:56 50 04/14/23 03:35 50 04/14/23 03:00 61 22 135/56 97 04/14/23 02:00 62 25 H 129/53 98 04/14/23 01:00 61 21 130/56 98 04/14/23 00:05 50 04/14/23 00:00 99.5 F 62 23 129/58 97 50 04/13/23 23:03 59 L 22 115/49 96 04/13/23 23:00 59 L 23 118/51 96 04/13/23 22:00 63 20 117/49 95 04/13/23 21:00 65 20 117/53 94 L 04/13/23 20:51 58 L 04/13/23 20:50 58 L 04/13/23 20:36 57 L 04/13/23 20:34 50 04/13/23 20:00 100.1 F H 57 L 20 119/55 95 50 04/13/23 19:00 58 L 21 126/54 96 04/13/23 18:00 58 L 34 H 116/49 97 Intake and Output 04/14/23 04/14/23 04/14/23 06:59 14:59 22:59 Intake Total 770 384.866 20 Output Total 470 1680 Balance 300 -1295.134 20 Intake: IV 260 200 20 Lactated Ringers 1,000 ml 160 100 20 @ 20 mls/hr IV .Q24H [facility] Rx#:[id number] Meropenem 1 gm In Sodium 100 100 Chloride 0.9% 100 ml @ 33 .3 mls/hr IVPB Q8HR [facility] Rx#:[id number] Intake, IV Titration 450 184.866 Amount Heparin Sod,Pork in 0.45% 250 115.297 NaCl 25,000 unit In 0.45 % NaCl 1 250ml.bag @ 10. 07 UNITS/KG/HR 10 mls/hr IV .Q24H [facility] Rx#: [id number] propofoL 1,000 mg In 200 69.569 Empty Bag 1 bag @ 15 MCG/ KG/MIN 8.577 mls/hr IV . [id number] [facility] Rx#:[id number] Other 60 Output: Urine 470 1125 Pleural Fluid 550 Estimated Blood Loss 5 Other: Voiding Method Indwelling Catheter Indwelling Catheter Weight 89.7 kg GENERAL DESCRIPTION: Middle-age female intubated on the vent HEENT: Shows Pallor , no scleral icterus. Oral mucous membrane is dry. NECK: Trachea central, no thyromegaly. LUNGS: Unlabored breathing. Decreased breath sounds at the base HEART: S1, S2, regular rate and rhythm. No loud murmur ABDOMEN: Soft, no tenderness , guarding or rigidity, no organomegaly EXTREMITIES: No edema of feet. SKIN: No rash, no masses palpable. NEUROLOGICAL: The patient is sedated on the vent Results CBC & Chem 7: 04/16/23 04:27 04/16/23 04:27 Labs: Abnormal Lab Results - Last 24 Hours (Table) 04/13/23 04/13/23 04/14/23 Range/Units 18:12 21:38 00:59 RBC (3.80-5.40) m/uL Hgb (11.4-16.0) gm/dL Hct (34.0-46.0) % Plt Count (150-450) k/uL APTT (22.0-30.0) sec ABG pH (7.35-7.45) ABG pCO2 (35-45) mmHg ABG pO2 (83-108) mmHg ABG HCO3 (21-25) mmol/L ABG Total CO2 (19-24) mmol/L Potassium 3.4 L (3.5-5.1) mmol/L Chloride (98-107) mmol/L Carbon Dioxide (22-30) mmol/L BUN (7-17) mg/dL Glucose (74-99) mg/dL POC Glucose (mg/dL) 230 H 116 H (70-110) mg/dL Calcium (8.4-10.2) mg/dL Total Protein (6.3-8.2) g/dL Albumin (3.5-5.0) g/dL 04/14/23 04/14/23 04/14/23 Range/Units 04:28 08:01 08:01 RBC 3.49 L (3.80-5.40) m/uL Hgb 10.6 L (11.4-16.0) gm/dL Hct 32.3 L (34.0-46.0) % Plt Count 128 L (150-450) k/uL APTT 31.1 H (22.0-30.0) sec ABG pH 7.52 H (7.35-7.45) ABG pCO2 54 H (35-45) mmHg ABG pO2 68 L (83-108) mmHg ABG HCO3 43 H* (21-25) mmol/L ABG Total CO2 45 H (19-24) mmol/L Potassium (3.5-5.1) mmol/L Chloride (98-107) mmol/L Carbon Dioxide (22-30) mmol/L BUN (7-17) mg/dL Glucose (74-99) mg/dL POC Glucose (mg/dL) (70-110) mg/dL Calcium (8.4-10.2) mg/dL Total Protein (6.3-8.2) g/dL Albumin (3.5-5.0) g/dL 04/14/23 04/14/23 04/14/23 Range/Units 08:01 12:37 14:25 RBC (3.80-5.40) m/uL Hgb (11.4-16.0) gm/dL Hct (34.0-46.0) % Plt Count (150-450) k/uL APTT (22.0-30.0) sec ABG pH (7.35-7.45) ABG pCO2 (35-45) mmHg ABG pO2 (83-108) mmHg ABG HCO3 (21-25) mmol/L ABG Total CO2 (19-24) mmol/L Potassium (3.5-5.1) mmol/L Chloride 95 L (98-107) mmol/L Carbon Dioxide 39 H (22-30) mmol/L BUN 21 H (7-17) mg/dL Glucose 119 H (74-99) mg/dL POC Glucose (mg/dL) 208 H 240 H (70-110) mg/dL Calcium 7.9 L (8.4-10.2) mg/dL Total Protein 5.6 L (6.3-8.2) g/dL Albumin 2.6 L (3.5-5.0) g/dL Microbiology - Last 24 Hours (Table) 04/10/23 13:53 Blood Culture - Preliminary Blood 04/10/23 13:53 Urine Culture - Final Urine,Catheterized Klebsiella pneumoniae Escherichia coli Assessment and Plan (1) Pneumonia Status: Acute Code(s): J18.9 - PNEUMONIA, UNSPECIFIED ORGANISM SNOMED Code(s): 692222457 (2) UTI (urinary tract infection) Status: Acute Code(s): N39.0 - URINARY TRACT INFECTION, SITE NOT SPECIFIED SNOMED Code(s): 29730388 Plan: 1-1patient with a fever in this patient admitted to the hospital for more than 2 weeks now with presentation with increasing shortness of breath patient did have a history of non-small cell lung cancer the patient did have multiple bronchoscopy during this admission with mucous plugging and bloody at the patient did have a Pleurx catheter placement today with a recent sputum culture grew Klebsiella, and urine grew Klebsiella and E. coli, source of the fever could be related to either lung or urinary source as currently no evidence of any peripheral IV site cellulitis abdominal soft clinical examination and there is no evidence of any cord extremity cellulitis no joint swelling and the patient tested negative for RSV COVID and influenza 2-repeat cultures have been obtained results will be followed 3-both E. coli and Klebsiella are sensitive to Zosyn antibiotic will be adjusted to Zosyn and discontinue meropenem Overall prognosis remains to be guarded We will follow on clinical condition and cultures to further adjust medication if needed Thank you for this consultation we will follow the patient along with you Dictation was produced using [employer] dictation software. please excuse any grammatical, word or spelling errors. Time with Patient: Greater than 30
[2023-04-14] MEDS: PIPERACILLIN-TAZOBACTAM 3.375 GM in SODIUM CHLORIDE 0.9% 100 ML IVPB SCH (23:46)
[2023-04-14 23:47] LABS: Glucose,Whole Blood 142 mg/dL (70-110)
[2023-04-14 23:58] LABS: Glucose,Whole Blood 137 mg/dL (70-110)
[2023-04-15] MEDS: INSULIN ASPART (NovoLOG) 100 UNIT/ML VIAL SQ SCH ×4 (00:05→18:05)
[2023-04-15] MEDS: ACETYLCYSTEINE 800 MG/4 ML VIAL INHALATION SCH ×4 (00:36→20:27)
[2023-04-15] MEDS: guaiFENesin SYRUP 100MG/5ML 200 MG/10 ML CUP PO SCH ×6 (01:07→20:50)
[2023-04-15 04:33] LABS: Basophils % (A) 0 %; Eosinophils # (A) 0.1 k/uL (0-0.7); Eosinophils % (A) 2 %; HCT 30.3 % (34.0-46.0); HGB 9.8 gm/dL (11.4-16.0); Hypochromasia Moderate; Lymphocytes # (A) 1.2 k/uL (1.0-4.8); Lymphocytes % (A) 18 %; MCH 30.3 pg (25.0-35.0); MCHC 32.5 g/dL (31.0-37.0); MCV 93.2 fL (80.0-100.0); Mean Platelet Volume 8.7; Monocytes # (A) 0.5 k/uL (0-1.0); Monocytes % (A) 7 %; Neutrophils # (A) 4.9 k/uL (1.3-7.7); Neutrophils % (A) 71 %; Platelet Count 149 k/uL (150-450); Poikilocytosis Slight; RBC 3.25 m/uL (3.80-5.40); RDW 14.2 % (11.5-15.5); WBC 6.9 k/uL (3.8-10.6)
[2023-04-15 05:04] LABS: ALT 20 U/L (4-34); AST 45 U/L (14-36); African American GFR (CKD) >90 (>60 ml/min/1.73 sqM); Albumin 2.5 g/dL (3.5-5.0); Alkaline Phosphatase 64 U/L (38-126); Anion Gap -1 mmol/L; Blood Urea Nitrogen 26 mg/dL (7-17); Calcium 7.7 mg/dL (8.4-10.2); Carbon Dioxide 39 mmol/L (22-30); Chloride 97 mmol/L (98-107); Glucose 135 mg/dL (74-99); Non-African American GFR(CKD) >90 (>60 ml/min/1.73 sqM); Potassium 3.8 mmol/L (3.5-5.1); Sodium 135 mmol/L (137-145); Total Bilirubin 1.1 mg/dL (0.2-1.3); Total Protein 5.5 g/dL (6.3-8.2)
[2023-04-15 05:05] LABS: Glucose,Whole Blood 133 mg/dL (70-110)
[2023-04-15 05:35] LABS: C Reactive Protein 14.1 mg/dL (<1.0)
--- NOTE | 2023-04-15 05:36 | P.PN ---
Subjective Progress Note Date: 04/14/23 Patient is a 57-year-old female with a past medical history of hypertension, hyperlipidemia, diabetes type 2, history of CVA/TIA with right-sided weakness, recent history of lung cancer, left upper lobectomy in February 2023, bipolar/depression and currently everyday smoker presents to ER with complaints of difficulty in breathing and chest pain. Patient was recently discharged from the hospital on 03/27/2023. Does have a history of non-small cell lung cancer underwent left upper lobectomy complicated by persistent left lower lobe atelectasis requiring multiple bronchoscopies during recent hospitalization. Valve cultures from 07/22/2022 showed haemophilus influenza. Patient was discharged home on Augmentin. On admission chest x-ray showed similar opacification of the left lung likely secondary to atelectasis and large pleural effusion. No pneumothorax visualized. Small right effusion. EKG showed atrial fibrillation with rapid ventricular response with heart rate 117. Patient is currently not on any anticoagulation. Continued on amiodarone. Laboratory data showed WBC 7.7 hemoglobin 11.9 and platelets 186 ABG showed pH 7.41 pCO2 49 and pO2 105 Sodium 136 potassium 4.5 chloride 99 bicarb is 30 BUN 12 and creatinine 0.47 blood sugar 257 and lactic acid 1.7 and calcium 7.9 ESR not elevated. Troponin x 1 negative and proBNP 3090. Influenza A, B, RSV and COVID-19 PCR not detected. Lung resection on 03/15/2023 with final pathology showing moderate to poorly differentiated pulmonary adenocarcinoma. All margins negative for malignancy. 1 of 3 hilar lymph nodes positive for metastatic carcinoma. 03/30/2023 Patient is seen in follow up today with pulmonary following as well as cardiology and adjustments to medications being done. Home medications reviewed and resumed. CT surgery consulted and discussing with surgery about complete lobectomy of the left. Patient continues with pleural effusions noted and has been started on IV lasix 20mg bid and will continue. Labs reviewed and within normal limits. Will follow up on repeat labs and monitor electrolytes and kidney functions closely. Patient is currently afebrile and denies worsening shortness of breath. Patient is continued on 4L and was sent home on this previously last week. Blood sugars elevated and will continue accuchecks achs and adjust medications accordingly. 03/31/2023 Patient seen and evaluated in follow-up today with pulmonary along with cardiothoracic surgery following. Discussing further about possible complete lobectomy of the left with cardiothoracic. Patient per nursing staff is lethargic and has been receiving scheduled Xanax along with Neurontin and pain medications and will decrease the dose of Xanax admitted as needed as well as decreasing the dose of Neurontin. Patient encouraged to increase activity as tolerated and get up more frequently out of the bed and sit up in the chair and work with physical therapy daily. Blood sugars remained elevated and will adjust and make long acting twice daily and continue with sliding scale. Patient continues on 2-3 L via nasal cannula and weaning FiO2 as tolerated. Patient is currently afebrile denies chest pain or palpitations and denies worsening shortness of breath. Patient continues to use incentive spirometer and needs encouragement to do so. Patient is receiving breathing inhalational treatments as well. 04/01/2023 Patient is seen in follow-up today scheduled to undergo bronchoscopy with pulmonary and cardiothoracic surgery following closely. Chest x-ray ordered for post bronchoscopy which is pending. Patient's blood sugars slightly improved and have added long-acting twice daily along with sliding scale. Encouraged increase activity as tolerated. Patient to be evaluated by physical therapy and would recommend daily. Patient also with incentive spirometer at the bedside encouraged to use at least 10 times every hour while awake. Patient reports not feeling she is having worsening shortness of breath although continues to have shortness of breath. 04/02/2023 Patient seen in follow-up this morning currently nothing by mouth and scheduled to undergo repeat bronchoscopy as follow-up chest x-ray showed near complete opacification on the left as well status post bronchoscopy yesterday. Patient is lethargic but arousable and will adjust the medications again and will discontinue Xanax. Patient worked with physical therapy this patient is significantly weak and has had multiple prolonged hospitalizations would likely be going to [facility] on discharge. Will await clearance from CT surgery pulmonary to discuss discharge planning. Patient is afebrile with no reports of worsening shortness of breath. Patient tolerating diet although given patient's lethargy will recommend aspiration precautions. 04/03/2023 Patient is evaluated today sitting up in the chair, currently wearing BiPAP. Patient underwent bronchoscopy today with Dr. Oshea pending surgical report. Chest xray reveals extensive pleural parenchymal opacity left hemithorax some interval improvement of the aeration of the left lung. Worsening small - to moderate right pleural effusion with adjacent atelectasis and or consolidation. Patient continues on IV lasix 20 mg IV Q12h. Magnesium today 1.5. 04/04/2023 Patient evaluated today sitting up in the chair. Currently on nasal cannula wanting to try and eat breakfast. She is tachypneic using accessory muscles to take a deep breath. She has minimal aeration over the left lung with chest xray today showing near complete white out of the left hemithorax, aeration worsening from yesterday. A small portion of the left upper lung remains aerated now. Ongoing small to moderate left pleural effusion adjacent atelectasis and or consolidation. Patient underwent bronchoscopy again this morning due to the mucus plugging of the left mainstem bronchus. Patient had thick yellow sputum s uctioned from the left main bronchus. Continues on IV lasix 20 mg Q12h, and additionally, has been started on IV steroids toda by pulmonary team. proBNP 2910. Sodium 135, potassium 4.6, BUN 13, creatinine 0.55, magnesium 1.8, glucose 228. 04/05/2023 Patient is seen in follow-up today currently awaiting to undergo bronchoscopy again with cardiothoracic surgery on 04/06/2023. Chest x-ray continues to show near complete opacification on the left. Patient continues with ongoing bilateral pleural effusions and is maintained on IV Lasix. Patient started on IV steroids with pulmonary following closely and blood sugars are completely uncontrolled in the 500s. Will initiate insulin drip and continue with protocol and Accu-Cheks every hour and tighter glycemic control. Patient will be nothing by mouth at midnight again for bronchoscopy and will await report. Will discuss further with CT surgery regarding overall treatment plan. Patient with significant weakness recommend physical therapy daily. Patient needs Encouraged increased activity as tolerated as patient has been mostly sitting and sleeping throughout most of hospitalization. 04/06/2023 Patient is seen in follow-up today currently sitting up in the chair awaiting to undergo repeat bronchoscopy with CT surgery today. Patient continues on 4-5 L via nasal cannula reporting continued shortness of breath. Patient's blood sugars are more controlled and patient is maintained on insulin drip and was currently nothing by mouth for the procedure. Will await surgical report and continue insulin drip for now with close monitoring to monitor for any episodes of hypoglycemia. Patient is afebrile denies chest pain or palpitations. 04/07/2023 Patient is seen and evaluated in follow-up currently in the ICU as of yesterday post bronchoscopy this patient had some increased respiratory distress requiring mechanical ventilation and is currently maintained on FiO2 of 60% with a PEEP of 8. Plan is for repeat bronchoscopy today with pulmonary and tentatively scheduled for repeat bronchoscopies on and Wednesday. Patient remains on insulin drip and blood sugars are more controlled and patient is being started on tube feedings and will adjust the medications and continue sliding scale and add long-acting if needed. Patient is a poorly controlled diabetic with hyperglycemia. Patient is currently afebrile showing A. fib on the monitor. Patient does have history of atrial fibrillation and cardiology has been consulted. Prognosis remains extremely guarded at this time. 04/08/2023 Patient is seen in follow-up today remains in the ICU on mechanical ventilation. Follow-up chest x-ray continues to show complete opacification medication on the left and scheduled for bronchoscopy again today. Patient to also undergo left side thoracentesis. Patient is afebrile and current settings on the vent are FI02 of 60% and peep is 10. Patient prognosis is extremely guarded. 04/09/2023 Patient seen and evaluated in follow-up continues to be in the ICU mechanical ventilation. FiO2 is 100% and PEEP has been increased to 10. Plan is for repeat bronchoscopy with pulmonary cast iron dipper today. Patient has been having daily bronchoscopies for continued mucus plugging. Patient's chest x-rays continue to show left hemithorax and complete opacification. Patient is currently afebrile. Patient maintained on tube feeds and recommend monitoring residuals. Per nursing staff there were some residual noted and patient reported not to have a bowel movement in the last few days. Continue bowel regimen and monitoring of residuals with aspiration precautions. Overall prognosis remains extremely guarded at this time. Blood sugars are becoming slightly more elevated and have added long-acting twice daily and will adjust accordingly. 04/12/2023 Patient was seen and evaluated in follow-up this morning continues to be in the ICU on mechanical ventilation. FiO2 is 50% with a PEEP of 10. Failed weaning trials today. Patietn being followed by multiple medical consultations with plans of possible chest tube insertion with CT surgery. Follow up chest xray continues to show pleural effusions and opacities on the left. Patient is being followed by cardiology and currently off the cardizem drip. Afebrile and tolerating tube feeds. Repeat sputum and urine cultures pending. 04/13/2023 Patient is seen in follow-up continues on mechanical ventilation with difficulty in weaning FiO2 is 50% and PEEP is 5. Multiple medical consultations following including CT surgery with discussion being have a family at the bedside about possible repeat bronchoscopy and possible tracheostomy on 04/14/2023. Patient repeat preliminary urine showing Klebsiella as well as E. coli and patient is being started on meropenem. Patient is currently afebrile and maintained on sedation. Prognosis continues to remain guarded at this time. 04/14/2023 Patient is seen in follow-up today with multiple medical consultations following. CT surgery with plans of repeat bronchoscopy and possible chest tube placement today. Patient having low grade temps and repeat urine and sputum culture with klebsiella and ecoli on Merrem. Patient is having low grade temps and will consult ID and appreciate input and recommendations. Patient tolerating tube feeds and will continue to monitor for residuals. Tube feed on hold for procedure. Continue current regimen with blood sugars and titrate as needed. Review of systems: Unable to assess as patient is on mechanical ventilation and sedated PHYSICAL EXAMINATION: Patient is a 57-year-old female is currently on mechanical ventilation and intubated and sedated Well-developed, well-nourished. Elderly-appearing. obese HEENT: Normocephalic. Neck is supple. Pupils reactive. Nostrils clear. Oral cavity is moist. Neck reveals no JVD, carotid bruits, or thyromegaly. CHEST EXAMINATION: Trachea is central. Symmetrical expansion . Left basilar diminished sounds. No wheezing or rhonchi. CARDIAC: S1, S2 muffled, irregular ABDOMEN: Soft. Bowel sounds present. Nontender. No organomegaly. No abdominal bruits. Extremities: Lower extremity trace edema. No clubbing or cyanosis Neurologically sedated on mechanical ventilation at this time Skin: No rash or skin lesions. Musculoskeletal: No joint swelling or deformity. Assessment: Worsening shortness of breath secondary to persistent left lower lobe atelectasis/collapse despite multiple bronchoscopies during recent admission and Pleural effusion. Patient is status post 4 bronchoscopies this admission and underwent bronchoscopy repeat 04/04/23 with suctioning of thick yellow secretions. Patient underwent bronchoscopy early last week and had some respiratory difficulty post bronchoscopy requiring mechanical ventilation. FiO2 is 50% with a PEEP of 10 and will remain on mechanical ventilation as there are plans for repeat bronchoscopies today with possible chest tube placement. Patient having difficulty in weaning and not tolerating weaning trials is being considered for tracheostomy and PEG tube placement. Awaiting family consent for trach. Haemophilus influenza pneumonia. Recent BAL culture showed haemophilus. Repeat sputum and urine cultures were taken and showing Klebsiella along with E. coli with sensitivities and patient is continued on Merrem. Patient is having temps and will consult infectious disease and appreciate input and recommendations. Paroxysmal atrial fibrillation with rapid ventricular rate. Patient has new onset A-fib on 03/21/2023. Continued on amiodarone. Not on anticoagulation. Patient is off the Cardizem drip and currently rate controlled and cardiology remains to be following Pulmonary adenocarcinoma with recent left upper lobe resection on 03/15/2023 Acute on chronic hypoxic respiratory failure requiring 3-4 L oxygen via nasal cannula on admission. Patient was at 2 L during recent discharge. Severe tracheal bronchomalacia COPD History of CVA with right-sided weakness Diabetes type 2, uncontrolled with hyperglycemia Hypertension Hyperlipidemia History of hepatitis B&C History of alcohol abuse and hides abuse Anxiety/depression and PTSD/bipolar. Currently everyday smoker, reports to quitting on last admission obesity with a bmi of 32.7 GI and DVT prophylaxis Full code Plan: Patient had multiple bronchoscopy this admission and currently in the ICU on mechanical ventilation FiO2 is currently 50% and PEEP increased at 10. Failed weaning trials and there is discussion of tracheostomy with Pleurx catheter with CT surgery. Plan is for repeat bronchoscopy today with possible chest tube placement Blood sugars being monitored and will continue current regimen and adjust accordingly Patient to continue on telemetry monitoring for afib and cardiology following and adjusting medications. Patient is not currently on any anticoagulation. Currently rate controlled with cardiology following Follow-up on repeat labs and repeat chest x-ray in the a.m. Continue tube feeds and monitoring for residuals with aspiration precautions and head of the bed elevated 30-45 at all times. Continue bowel regimen. Patient will have tube feedings held for procedure Due to multiple complex medical issues, overall prognosis is extremely guarded at this time The impression and plan of care has been dictated by Rahel Crabtree, Nurse Practitioner as directed. Dr. Gay MD I have performed a history and examination and MDM of this patient, discussed the same with the dictator, and agree with the dictator's assessment and plan as written ,documented as a scribe. Based on total visit time, I have performed more than 50% of the visit. Objective - Vital Signs Vital signs: Vital Signs Temp 102 F H 04/14/23 08:00 Pulse 60 04/14/23 09:24 Resp 25 H 04/14/23 09:00 BP 122/52 04/14/23 09:00 Pulse Ox 98 04/14/23 09:00 FiO2 50 04/14/23 08:00 Intake & Output 04/13/23 04/14/23 04/14/23 18:59 06:59 18:59 Intake Total 877.394 950 60 Output Total 1520 715 275 Balance -642.606 235 -215 Weight 89.2 kg 89.7 kg Intake: IV 330 300 60 Lactated Ringers 1,000 ml 200 60 @ 20 mls/hr IV .Q24H [facility] Rx#:[id number] Meropenem 1 gm In Sodium 200 100 Chloride 0.9% 100 ml @ 33 .3 mls/hr IVPB Q8HR [facility] Rx#:[id number] Sodium Chloride 0.9% 1, 130 000 ml @ 20 mls/hr IV . Q24H [facility] Rx#:[id number] Intake, IV Titration 193.394 550 Amount Heparin Sod,Pork in 0.45% 250 NaCl 25,000 unit In 0.45 % NaCl 1 250ml.bag @ 10. 07 UNITS/KG/HR 10 mls/hr IV .Q24H [facility] Rx#: [id number] propofoL 1,000 mg In 193.394 300 Empty Bag 1 bag @ 15 MCG/ KG/MIN 8.577 mls/hr IV . [id number] [facility] Rx#:[id number] Tube Feeding 264 0 Other 90 100 Output: Urine 1520 715 275 Other: Voiding Method Indwelling Catheter Indwelling Catheter Indwelling Catheter - Labs CBC & Chem 7: 04/15/23 04:03 04/14/23 20:22 Labs: Abnormal Lab Results - Last 24 Hours (Table) 04/13/23 04/13/23 04/13/23 Range/Units 12:05 18:12 21:38 RBC (3.80-5.40) m/uL Hgb (11.4-16.0) gm/dL Hct (34.0-46.0) % Plt Count (150-450) k/uL APTT (22.0-30.0) sec ABG pH (7.35-7.45) ABG pCO2 (35-45) mmHg ABG pO2 (83-108) mmHg ABG HCO3 (21-25) mmol/L ABG Total CO2 (19-24) mmol/L Potassium 3.4 L (3.5-5.1) mmol/L Chloride (98-107) mmol/L Carbon Dioxide (22-30) mmol/L BUN (7-17) mg/dL Glucose (74-99) mg/dL POC Glucose (mg/dL) 245 H 230 H (70-110) mg/dL Calcium (8.4-10.2) mg/dL Total Protein (6.3-8.2) g/dL Albumin (3.5-5.0) g/dL 04/14/23 04/14/23 04/14/23 Range/Units 00:59 04:28 08:01 RBC (3.80-5.40) m/uL Hgb (11.4-16.0) gm/dL Hct (34.0-46.0) % Plt Count (150-450) k/uL APTT 31.1 H (22.0-30.0) sec ABG pH 7.52 H (7.35-7.45) ABG pCO2 54 H (35-45) mmHg ABG pO2 68 L (83-108) mmHg ABG HCO3 43 H* (21-25) mmol/L ABG Total CO2 45 H (19-24) mmol/L Potassium (3.5-5.1) mmol/L Chloride (98-107) mmol/L Carbon Dioxide (22-30) mmol/L BUN (7-17) mg/dL Glucose (74-99) mg/dL POC Glucose (mg/dL) 116 H (70-110) mg/dL Calcium (8.4-10.2) mg/dL Total Protein (6.3-8.2) g/dL Albumin (3.5-5.0) g/dL 04/14/23 04/14/23 Range/Units 08:01 08:01 RBC 3.49 L (3.80-5.40) m/uL Hgb 10.6 L (11.4-16.0) gm/dL Hct 32.3 L (34.0-46.0) % Plt Count 128 L (150-450) k/uL APTT (22.0-30.0) sec ABG pH (7.35-7.45) ABG pCO2 (35-45) mmHg ABG pO2 (83-108) mmHg ABG HCO3 (21-25) mmol/L ABG Total CO2 (19-24) mmol/L Potassium (3.5-5.1) mmol/L Chloride 95 L (98-107) mmol/L Carbon Dioxide 39 H (22-30) mmol/L BUN 21 H (7-17) mg/dL Glucose 119 H (74-99) mg/dL POC Glucose (mg/dL) (70-110) mg/dL Calcium 7.9 L (8.4-10.2) mg/dL Total Protein 5.6 L (6.3-8.2) g/dL Albumin 2.6 L (3.5-5.0) g/dL Microbiology - Last 24 Hours (Table) 04/10/23 13:53 Blood Culture - Preliminary Blood 04/10/23 13:53 Urine Culture - Final Urine,Catheterized Klebsiella pneumoniae Escherichia coli 04/11/23 03:00 Gram Stain - Final Sputum Sputum Culture - Final Klebsiella pneumoniae
[2023-04-15] MEDS: INSULIN DETEMIR (LEVEMIR) 100 UNIT/ML SYR SQ SCH ×2 (06:47→20:50)
[2023-04-15 06:48] LABS: ABG Base Excess 19.7 mmol/L; ABG Oxygen Saturation 96.2 % (94-97); ABG PCO2 56 mmHg (35-45); ABG PO2 74 mmHg (83-108); ABG TCO2 45 mmol/L (19-24); Allen Test Performed? Yes
[2023-04-15 06:51] LABS: ABG HCO3 43 mmol/L (21-25)
[2023-04-15] MEDS ORDERED: POTASSIUM BICARBONATE/CIT AC 20 MEQ TABLET.EFF NG-TUBE SCH (07:00)
[2023-04-15] MEDS: BUDESONIDE 1 MG/2 ML NEBU INHALATION SCH ×2 (08:01→20:27)
[2023-04-15] MEDS: FORMOTEROL FUMARATE 20 MCG/2 ML NEBU INHALATION SCH ×2 (08:02→20:27)
[2023-04-15] MEDS: IPRATROPIUM-ALBUTEROL 3 ML NEB INHALATION SCH ×4 (08:02→20:27)
[2023-04-15] MEDS: SODIUM CHLORIDE 0.9% 1,000 ML IV SCH (08:04)
[2023-04-15] MEDS: CHLORHEXIDINE GLUCONATE 15 ML CUP MUCOUS MEM SCH ×2 (08:23→20:49)
[2023-04-15] MEDS: GABAPENTIN 400 MG CAP PO SCH ×3 (08:23→20:50)
[2023-04-15] MEDS: AMIODARONE 200 MG TAB PO SCH (08:24)
[2023-04-15] MEDS: FUROSEMIDE 10 MG/ML 4 ML VIAL IV SCH (08:24)
[2023-04-15] MEDS: SENNOSIDES 8.6 MG TAB PO SCH ×2 (08:24→20:50)
[2023-04-15] MEDS: THIAMINE 100 MG TAB PO SCH (08:24)
[2023-04-15] MEDS: predniSONE 20 MG TAB PO SCH (08:24)
[2023-04-15] MEDS: FOLIC ACID 1 MG TAB PO SCH (08:24)
[2023-04-15] MEDS: ATORVASTATIN 10 MG TAB PO SCH (08:24)
[2023-04-15] MEDS: PANTOPRAZOLE 40 MG TABLET PO SCH (08:24)
[2023-04-15] MEDS: PIPERACILLIN-TAZOBACTAM 3.375 GM in SODIUM CHLORIDE 0.9% 100 ML IVPB SCH ×3 (08:25→23:10)
--- NOTE | 2023-04-15 08:27 | P.PN ---
Subjective Progress Note Date: 04/15/23 Principal diagnosis: Shortness of breath, rapid atrial fibrillation present on admission. History of moderate to poorly differentiated pulmonary adenocarcinoma with 13 hilar lymph nodes positive for metastatic carcinoma status post robotic-assisted thoracoscopic left upper lobectomy with mediastinal lymph node dissection, postoperative paroxysmal atrial fibrillation, left lower lobe atelectasis and mucous plugging with tracheobronchial malacia status post bronchoscopy 3, ins ulin dependent diabetes with poor glycemic control, hypomagnesemia, current tobacco dependence with cessation prior to previous admission, moderate COPD, current daily EtOH use, hypertension, hyperlipidemia, stroke in 2016 with right- sided weakness, hepatitis B and C, bipolar depression, IV heroin use with last use August 2018 The patient was seen and examined in follow-up today 04/15/2023 at her bedside in the intensive care unit. She remains intubated with mechanical ventilator support, remain sedated on Diprivan drip and is not following any verbal commands at this time. Oxygen saturations are 99% with current mechanical ventilator settings. Current mechanical ventilator settings are assist control 20, TV 350, FiO2 50% and PEEP of 6. Sputum culture showing positive for Klebsiella pneumoniae and urine culture showing positive for Klebsiella pneumoniae and Escherichia coli. Infectious disease is following and she is currently on Zosyn for antibiotic coverage. Her T-max temperature in the last 24 hours is 102.2F. She underwent a fiberoptic bronchoscopy with evacuation of left mainstem bronchus mucous plug, placement of left Pleurx catheter with fluoroscopic guidance performed by Dr. June yesterday 04/14/2023. Her left Pleurx catheter remains in contact and connected to bedside Pleur-evac, draining thin serosanguineous drainage with 50 mL output in the last 8 hours and 200 mL output since placement. Bedside telemetry is showing sinus bradycardia heart rate 51 BPM, she did have some episodes of atrial fibrillation yesterday. Heparin drip is infusing per protocol, PTT this morning was 63.4. Laboratory and chest x-ray results were reviewed. Objective - Vital Signs Vital signs: Vital Signs Temp 98.1 F 04/15/23 05:00 Pulse 51 L 04/15/23 06:00 Resp 20 04/15/23 06:00 BP 106/53 04/15/23 06:00 Pulse Ox 99 04/15/23 05:00 FiO2 50 01/18/24 06:00 Intake & Output 04/14/23 04/15/23 04/15/23 18:59 06:59 18:59 Intake Total 719.197 2278.584 80.052 Output Total 1820 650 Balance -1035.134 561.584 80.052 Weight 90 kg Intake: IV 380 360 Lactated Ringers 1,000 ml 180 260 @ 20 mls/hr IV .Q24H [facility] Rx#:[id number] Meropenem 1 gm In Sodium 200 Chloride 0.9% 100 ml @ 33 .3 mls/hr IVPB Q8HR [facility] Rx#:[id number] Piperacillin-Tazobactam 3 100 .375 gm In Sodium Chloride 0.9% 100 ml @ 25 mls/hr IVPB Q8HR [facility] Rx# :[id number] Intake, IV Titration 284.866 401.584 80.052 Amount Heparin Sod,Pork in 0.45% 115.297 125.279 NaCl 25,000 unit In 0.45 % NaCl 1 250ml.bag @ 10. 07 UNITS/KG/HR 10 mls/hr IV .Q24H [facility] Rx#: [id number] propofoL 1,000 mg In 169.569 276.305 80.052 Empty Bag 1 bag @ 15 MCG/ KG/MIN 8.577 mls/hr IV . [id number] [facility] Rx#:[id number] Tube Feeding 90 360 Other 30 90 Output: Drainage 100 Left Lateral Back 100 Urine 1265 550 Pleural Fluid 550 Estimated Blood Loss 5 Other: Voiding Method Indwelling Catheter Indwelling Catheter - Exam CONSTITUTIONAL: Remains sedated on Diprivan drip and intubated with mechanical ventilator support, no acute distress RESPIRATORY: Lungs sounds diminished in the left lung base. Respirations are symmetrical and nonlabored on mechanical ventilation support. Current ventilator settings FiO2 50%, PEEP 6, tidal volume 350, respiratory rate 20. 8.0 ET tube present, 23 at the lip CARDIOVASCULAR: S1, S2 present. Bedside telemetry showing sinus bradycardia heart rate 51 BPM. Doppler lower extremity pulses bilaterally. Bilateral lower extremity pitting edema present, Anson wraps present from toes to knees, SCDs present. GASTROINTESTINAL: Abdomen soft, nontender, nondistended. Active bowel sounds present 4 quadrants. OG tube present, TF vital high-protein infusing at 20 mL/hr with 30 mL every 4 hours H2O flushes GENITOURINARY: Cameron catheter present draining clear yellow urine, 305 mL in the last 8 hours INTEGUMENTARY: Skin is warm and dry, no clubbing or cyanosis is present NEUROLOGIC: Currently sedated with propofol. Unable to accurately assess. - Allied health notes Allied health notes reviewed: nursing - Labs CBC & Chem 7: 04/15/23 04:03 04/15/23 04:03 Labs: Abnormal Lab Results - Last 24 Hours (Table) 04/14/23 04/14/23 04/14/23 Range/Units 08:01 08:01 08:01 RBC 3.49 L (3.80-5.40) m/uL Hgb 10.6 L (11.4-16.0) gm/dL Hct 32.3 L (34.0-46.0) % Plt Count 128 L (150-450) k/uL APTT 31.1 H (22.0-30.0) sec ABG pH (7.35-7.45) ABG pCO2 (35-45) mmHg ABG pO2 (83-108) mmHg ABG HCO3 (21-25) mmol/L ABG Total CO2 (19-24) mmol/L ABG O2 Saturation (94-97) % Sodium (137-145) mmol/L Chloride 95 L (98-107) mmol/L Carbon Dioxide 39 H (22-30) mmol/L BUN 21 H (7-17) mg/dL Glucose 119 H (74-99) mg/dL POC Glucose (mg/dL) (70-110) mg/dL Calcium 7.9 L (8.4-10.2) mg/dL AST (14-36) U/L C-Reactive Protein (<1.0) mg/dL Total Protein 5.6 L (6.3-8.2) g/dL Albumin 2.6 L (3.5-5.0) g/dL 04/14/23 04/14/23 04/14/23 Range/Units 12:37 14:25 17:15 RBC (3.80-5.40) m/uL Hgb (11.4-16.0) gm/dL Hct (34.0-46.0) % Plt Count (150-450) k/uL APTT (22.0-30.0) sec ABG pH (7.35-7.45) ABG pCO2 (35-45) mmHg ABG pO2 (83-108) mmHg ABG HCO3 (21-25) mmol/L ABG Total CO2 (19-24) mmol/L ABG O2 Saturation (94-97) % Sodium (137-145) mmol/L Chloride (98-107) mmol/L Carbon Dioxide (22-30) mmol/L BUN (7-17) mg/dL Glucose (74-99) mg/dL POC Glucose (mg/dL) 208 H 240 H 253 H (70-110) mg/dL Calcium (8.4-10.2) mg/dL AST (14-36) U/L C-Reactive Protein (<1.0) mg/dL Total Protein (6.3-8.2) g/dL Albumin (3.5-5.0) g/dL 04/14/23 04/14/23 04/14/23 Range/Units 20:16 20:22 20:53 RBC (3.80-5.40) m/uL Hgb (11.4-16.0) gm/dL Hct (34.0-46.0) % Plt Count (150-450) k/uL APTT 40.8 H (22.0-30.0) sec ABG pH 7.51 H (7.35-7.45) ABG pCO2 52 H (35-45) mmHg ABG pO2 62 L (83-108) mmHg ABG HCO3 41 H* (21-25) mmol/L ABG Total CO2 43 H (19-24) mmol/L ABG O2 Saturation 93.2 L (94-97) % Sodium (137-145) mmol/L Chloride (98-107) mmol/L Carbon Dioxide (22-30) mmol/L BUN (7-17) mg/dL Glucose (74-99) mg/dL POC Glucose (mg/dL) 162 H (70-110) mg/dL Calcium (8.4-10.2) mg/dL AST (14-36) U/L C-Reactive Protein (<1.0) mg/dL Total Protein (6.3-8.2) g/dL Albumin (3.5-5.0) g/dL 04/14/23 04/14/2324 Range/Units 23:46 23:56 04:03 RBC (3.80-5.40) m/uL Hgb (11.4-16.0) gm/dL Hct (34.0-46.0) % Plt Count (150-450) k/uL APTT (22.0-30.0) sec ABG pH (7.35-7.45) ABG pCO2 (35-45) mmHg ABG pO2 (83-108) mmHg ABG HCO3 (21-25) mmol/L ABG Total CO2 (19-24) mmol/L ABG O2 Saturation (94-97) % Sodium 135 L (137-145) mmol/L Chloride 97 L (98-107) mmol/L Carbon Dioxide 39 H (22-30) mmol/L BUN 26 H (7-17) mg/dL Glucose 135 H (74-99) mg/dL POC Glucose (mg/dL) 142 H 137 H (70-110) mg/dL Calcium 7.7 L (8.4-10.2) mg/dL AST 45 H (14-36) U/L C-Reactive Protein 14.1 H (<1.0) mg/dL Total Protein 5.5 L (6.3-8.2) g/dL Albumin 2.5 L (3.5-5.0) g/dL 04/15/23 04/15/23 04/15/23 Range/Units 04:03 04:03 04:53 RBC 3.25 L (3.80-5.40) m/uL Hgb 9.8 L (11.4-16.0) gm/dL Hct 30.3 L (34.0-46.0) % Plt Count 149 L (150-450) k/uL APTT 63.4 H (22.0-30.0) sec ABG pH (7.35-7.45) ABG pCO2 (35-45) mmHg ABG pO2 (83-108) mmHg ABG HCO3 (21-25) mmol/L ABG Total CO2 (19-24) mmol/L ABG O2 Saturation (94-97) % Sodium (137-145) mmol/L Chloride (98-107) mmol/L Carbon Dioxide (22-30) mmol/L BUN (7-17) mg/dL Glucose (74-99) mg/dL POC Glucose (mg/dL) 133 H (70-110) mg/dL Calcium (8.4-10.2) mg/dL AST (14-36) U/L C-Reactive Protein (<1.0) mg/dL Total Protein (6.3-8.2) g/dL Albumin (3.5-5.0) g/dL 04/15/23 Range/Units 06:46 RBC (3.80-5.40) m/uL Hgb (11.4-16.0) gm/dL Hct (34.0-46.0) % Plt Count (150-450) k/uL APTT (22.0-30.0) sec ABG pH 7.50 H (7.35-7.45) ABG pCO2 56 H (35-45) mmHg ABG pO2 74 L (83-108) mmHg ABG HCO3 43 H* (21-25) mmol/L ABG Total CO2 45 H (19-24) mmol/L ABG O2 Saturation (94-97) % Sodium (137-145) mmol/L Chloride (98-107) mmol/L Carbon Dioxide (22-30) mmol/L BUN (7-17) mg/dL Glucose (74-99) mg/dL POC Glucose (mg/dL) (70-110) mg/dL Calcium (8.4-10.2) mg/dL AST (14-36) U/L C-Reactive Protein (<1.0) mg/dL Total Protein (6.3-8.2) g/dL Albumin (3.5-5.0) g/dL - Imaging and Cardiology Chest x-ray: report reviewed, image reviewed Assessment and Plan Assessment: Moderate to poorly differentiated pulmonary adenocarcinoma with 13 hilar lymph nodes positive for metastatic carcinoma status post robotic-assisted thoracoscopic left upper lobectomy with mediastinal lymph node dissection Postoperative paroxysmal atrial fibrillation, currently showing sinus br adycardia on bedside monitor Worsening right lung possibly from aspiration Left lower lobe atelectasis and mucous plugging with tracheobronchial malacia status post multiple bronchoscopies Insulin dependent diabetes with poor glycemic control, hyperglycemia, A1c 8.8% Hypomagnesemia Current tobacco dependence with cessation prior to previous admission Moderate COPD, preoperative FEV1 54% of predicted, DLCO 36% of predicted Current daily EtOH use Hypertension Hyperlipidemia Stroke in 2016 with right-sided weakness Hepatitis B and C Bipolar depression History of IV heroin use with last use August 2018 Plan: Continue to Irrigate with saline and suction hourly through ETT. Continue tube feeding for nutritional support. Continue heparin drip per protocol. Ventilator management per pulmonology/critical care management, recommend weaning trial today. Continue Mucomyst, bronchodilators, and Pulmicort. Daily sedation holiday. Will monitor daily labs and chest x-rays, final path and culture from pleural fluid negative, Sputum culture showing positive for Klebsiella pneumoniae and urine culture showing positive for Klebsiella pneumoniae and Escherichia coli. Infectious disease is following and she is currently on Zosyn for antibiotic coverage. GI/DVT prophylaxis. Diabetic management per internal medicine, patient needs tight blood sugar control. Continue Amiodarone, will taper weekly, continue IV heparin. Medical management of other comorbidities per primary care service, pulmonology. Guarded prognosis, will update family again today. More recommendations to follow based on patient's clinical course. Time with Patient: Greater than 30
--- NOTE | 2023-04-15 08:52 | XR ---
EXAMINATION TYPE: XR chest 1V portable DATE OF EXAM: 04/15/2023 COMPARISON: 04/14/2023 HISTORY: Shortness of breath TECHNIQUE: Single frontal view of the chest is obtained. FINDINGS: ETT and NG tubes are satisfactory. Left basilar chest tube is present. There is improvemen t in the previous white out of the left hemithorax. A moderate sized basilar pneumothorax is noted me asuring up to 4.0 cm. Opacity along the medial left upper lung was seen previously the patient's whit e out. Interstitial density similar to slightly worsened on the right. Some hazy density at the right base persists. IMPRESSION: 1. Stable pleural parenchymal changes correlate for CHF. 2. No sizable pneumothorax today's exam.
--- NOTE | 2023-04-15 09:09 | P.PN ---
Subjective Progress Note Date: 04/15/23 04/12/2023, the patient is being seen for a follow-up. Note that the patient had a very complicated postoperative course following resection of a left upper lobe adenocarcinoma. The patient was noted to have adenocarcinoma of the left upper lobe and the patient underwent a robotic assisted thoracoscopic left upper lobe lobectomy along with mediastinal lymph node dissection. The patient was found to have T1b N1 M0 disease. Postoperative course was complicated by recurrent atelectasis of the left lower lobe which was attributed to pneumonia, mucous plugs, COPD and severe tracheobronchomalacia. The patient required multiple bronchoscopies with some partial reexpansion of the left lung. The patient was also covered with a broad-spectrum antibiotics. She is known to have COPD, tracheobronchomalacia, hypertension, hyperlipidemia and previous history of CVA back in 2016 that the resultant right-sided weakness. The patient also has hepatitis B, hepatitis C, bipolar disorder and history of depression. She has previous history of IV heroin use and her last usage was in August 2018. She was briefly discharged home to be readmitted for worsening shortness of breath. She ultimately went into respiratory failure during the second hospitalization and for now, the patient remains intubated and mechanically ventilated. On today's evaluation, the patient is on propofol and the patient is also on assist-control mode of mechanical ventilation with a rate of 20, tidal volume of 350, FiO2 of 5 0% with a PEEP of 10. Propofol is running at 50 mcg/kg/min. Chest x-ray shows evidence of a left upper lobe lobectomy, moderate left-sided pleural effusion along with a small right-sided pleural effusion. ET tube is in a good location. NG tube also in good location. The blood gas from this morning shows a pH of 7.53 with a pCO2 of 52 and pO2 of 61. She is currently in normal sinus rhythm. She remains on IV heparin. In terms of cultures, most of the bronchial cultures came back negative with exception of a lavage that was obtained back in 03/23/2023 that showed haemophilus influenza. The patient is currently not on DuoNeb updrafts, Mucomyst, in addition to a combination of budesonide and Pulmicort. She is not receiving any antibiotics for now. She remains on IV Solu-Medrol 30 mg every 24 hours. SHe was having atrial fibrillation and she is back to sinus, she remains on IV heparin, amiodarone 200 mg p.o. daily and Cardizem dripn is off . The patient is also on Levemir insulin 8 units twice daily and NovoLog sliding scale coverage. She is afebrile. She remains of antibiotics for now. She is receiving enteral feeding for nutritional support. The patient is receiving vital high-protein at the rate of 29 mL an hour. IV fluids are in the form of 0.9 at 20 mL an hour. Sodium is at 140, potassium 3.5, bicarbonate 36, BUN is at 26 and a creatinine of 0.6. Nevertheless, 7.7, hemoglobin was at 10.7 and a platelet count is at 161. She is on no pressors. On 04/13/2023, the patient is being seen for a follow-up. The patient remains intubated on a mechanical ventilator. She remains sedated on propofol which is running at 50 mcg/kg/m and the patient is adequately sedated. She remains on a mechanical ventilator on assist control mode at the rate of 20, tidal volumes of 350, FiO2 50% with a PEEP of 10. Current pulse ox is 95%. The blood gas from today shows a pH of 7.5 with a pCO2 of 55 and pO2 of 78. The chest x-ray shows complete opacification of the left lung. This is related to a combination of atelectasis, consolidation and possibly a small left-sided pleural effusion. Most recent bronchoscopy that was done on 04/11/2022 is yielding gram-negative bacillus and the patient will be covered with broad-spectrum antibiotics. Suggest IV meropenem. Clinically stable. Hemodynamically stable. Cardiac rhythm is A. fib with a controlled rate. The patient remains on IV heparin. The patient is off Cardizem. For the time being. Also, her white cell count is at 7.5, hemoglobin is at 10.9 with a platelet count of 156. Sodium level is at 136, potassium levels at 3.4, serum bicarb is at 35 with a BUN of 22 and a creatinine of 0.6. The patient is on enteral feeding for nutritional support and she is receiving vital high-protein at the rate of 22 mL an hour. The patient is on bronchodilators. The patient is oral prednisone at a dose of 20 mg by mouth daily as part of her breast taper. She is on Lasix 40 mg IV every 8 hours and her fluids balance is -1.7 L over the past 24 hours. She has been on Levemir insulin for blood sugar control and the patient is receiving 8 units twice a day along with a sliding scale coverage. In terms of her A. fib, she is on IV heparin and she is also on amiodarone 200 mg by mouth twice a day. Cardizem drip is off. Rate is adequately controlled at this point. No fever. 04/14/2023, I'm seeing the patient for a follow-up. He remains intubated on a mechanical ventilator. Remains on propofol at 50 g and she is calm and comfortable. No major change in her condition. Of significance is development of the fever with temperature of 102 and the patient had another sample of respiratory culture that came back positive for Klebsiella. I have cover this patient with IV meropenem. Cultures were also sent. The plan was to proceed with a tracheostomy tube and a Pleurx catheter insertion. I'm not sure the family has given consent for both procedures. The left lung remains completely opacified. The cardiothoracic surgery is intending to do another bronchoscopy today as the patient is complete collapse of the left lung. Remains on a mechanical ventilator on assist control mode with a rate of 20, tidal volume of 50, FiO2 of 50% with a PEEP of 10. Blood gas from today shows a pH of 7.52 with a pCO2 of 54 and pO2 of 68. The patient is having limited distally secretions. She is on no pressors at this point in time. She is maintaining her own blood pressure. The white suppositive 9.6. Hemoglobin 10.6. Electrolytes are still pending from today and the yesterday's electrolytes and renal function was within normal limits pH is still receiving enteral feeding for nutritional sup port. She remains on IV Lasix. Fluid balance is -407 mL over the past 24 hours. IV fluids are in the form of lactated Ringer at the rate of 20 mL an hour. Cardiac rhythm is sinus as the patient is currently on amiodarone 200 mg daily and she is also on IV heparin. Prednisone is currently at a dose of 20 mg by mouth daily. 2023, I'm seeing the patient for a follow-up. This morning, she is on a 30 g of propofol she is arousable and she is following some simple commands. A Pleurx catheter was inserted yesterday and there is adequate expansion of the left lung. No follow-up chest x-ray from today shows improved aeration of the left lung. No signs of any pneumothorax. No evidence of any air leak. Total amount of output is 180 mL since yesterday. The patient remains on a mechanical ventilator. She is on assist-control mode at a rate of 20, tidal volume of 350, FiO2 of 50% and a PEEP is down to 5. Patient was at 7.5 with a pCO2 of 56 and pO2 of 73 4. Most recent microbial cultures yielded Klebsiella and E. coli. I'm considering giving this patient a spontaneous breathing trial in anticipation for possible extubation. I would give her another bronchoscopy to remove any residual secretions prior extubation however. Note that she has severe tracheal bronchomalacia and she has copious amount of respiratory secretions. Currently she is on IV meropenem. She is afebrile. The white cell count at 6.9. He was at 9.8. Sodium is at 135, BUN is at 26 with a creatinine of 0.6. She is still receiving enteral feeding for nutritional support with vital high-protein and this will be placed on hold. The cardiac rhythm is sinus. She is hemodynamically stable. She is on no pressors at this point in time. She remains on bronchodilators with DuoNeb. She is also on IV heparin regarding her paroxysmal atrial fibrillation. She is on prednisone as part of the burst taper and currently is on 20 mg by mouth daily. No other significant events overnight. Obvious improvement in the aeration of the left lung base on today's chest x-ray finding. Obvious improvement in oxygenation. Objective - Vital Signs Vital signs: Vital Signs Temp 98.1 F 04/15/23 05:00 Pulse 52 L 04/15/23 08:27 Resp 21 04/15/23 07:00 BP 107/53 04/15/23 07:00 Pulse Ox 98 04/15/23 07:00 FiO2 50 04/15/23 07:48 Intake & Output 04/14/23 04/15/23 04/15/23 18:59 06:59 18:59 Intake Total 676.189 9663.584 96.491 Output Total 1820 650 Balance -1035.134 561.584 96.491 Weight 90 kg Intake: IV 380 360 Lactated Ringers 1,000 ml 180 260 @ 20 mls/hr IV .Q24H [facility] Rx#:[id number] Meropenem 1 gm In Sodium 200 Chloride 0.9% 100 ml @ 33 .3 mls/hr IVPB Q8HR [facility] Rx#:[id number] Piperacillin-Tazobactam 3 100 .375 gm In Sodium Chloride 0.9% 100 ml @ 25 mls/hr IVPB Q8HR [facility] Rx# :[id number] Intake, IV Titration 284.866 401.584 96.491 Amount Heparin Sod,Pork in 0.45% 115.297 125.279 NaCl 25,000 unit In 0.45 % NaCl 1 250ml.bag @ 10. 07 UNITS/KG/HR 10 mls/hr IV .Q24H [facility] Rx#: [id number] propofoL 1,000 mg In 169.569 276.305 96.491 Empty Bag 1 bag @ 15 MCG/ KG/MIN 8.577 mls/hr IV . [id number] [facility] Rx#:[id number] Tube Feeding 90 360 Other 30 90 Output: Drainage 100 Left Lateral Back 100 Urine 1265 550 Pleural Fluid 550 Estimated Blood Loss 5 Other: Voiding Method Indwelling Catheter Indwelling Catheter - Exam CONSTITUTIONAL: Remains sedated and intubated, no acute distress, arousable while being on a low dose propofol. RESPIRATORY: Lungs sounds diminished in the left lung base. Respirations even, nonlabored on mechanical ventilation. Current ventilator settings FiO2 50%, PEEP I, tidal volume 350, respiratory rate 20. Patient is breathing over the ventilator. 8.0 ET tube present, 23 at the lip CARDIOVASCULAR: S1, S2 present. Slow but regular rate and rhythm, sinus bradycardia on telemetry. Doppler lower extremity pulses bilaterally. Bilateral lower extremity pitting edema present, Anson wraps present from toes to knees, SCDs present. Lungs sounds are diminished in the left lung base. Breasts on the right than adequate. No significant alcohol or wheezes. The patient in the left lung has improved and the patient has a Pleurx in the left lung without any evidence of air leak. Total amount of output has been 1 80 mL. GASTROINTESTINAL: Abdomen soft, nontender, nondistended. Active bowel sounds present 4 quadrants. GENITOURINARY: Cameron catheter present draining clear yellow urine, INTEGUMENTARY: Skin is warm and dry NEUROLOGIC: Currently sedated with propofol. Patient does open her eyes, moving left arm and leg to command, not moving right side currently although per nursing she does move the right side off sedation - Labs CBC & Chem 7: 04/15/23 04:03 04/15/23 04:03 Labs: Abnormal Lab Results - Last 24 Hours (Table) 04/14/23 04/14/23 04/14/23 Range/Units 12:37 14:25 17:15 RBC (3.80-5.40) m/uL Hgb (11.4-16.0) gm/dL Hct (34.0-46.0) % Plt Count (150-450) k/uL APTT (22.0-30.0) sec ABG pH (7.35-7.45) ABG pCO2 (35-45) mmHg ABG pO2 (83-108) mmHg ABG HCO3 (21-25) mmol/L ABG Total CO2 (19-24) mmol/L ABG O2 Saturation (94-97) % Sodium (137-145) mmol/L Chloride (98-107) mmol/L Carbon Dioxide (22-30) mmol/L BUN (7-17) mg/dL Glucose (74-99) mg/dL POC Glucose (mg/dL) 208 H 240 H 253 H (70-110) mg/dL Calcium (8.4-10.2) mg/dL AST (14-36) U/L C-Reactive Protein (<1.0) mg/dL Total Protein (6.3-8.2) g/dL Albumin (3.5-5.0) g/dL 04/14/23 04/14/23 04/14/23 Range/Units 20:16 20:22 20:53 RBC (3.80-5.40) m/uL Hgb (11.4-16.0) gm/dL Hct (34.0-46.0) % Plt Count (150-450) k/uL APTT 40.8 H (22.0-30.0) sec ABG pH 7.51 H (7.35-7.45) ABG pCO2 52 H (35-45) mmHg ABG pO2 62 L (83-108) mmHg ABG HCO3 41 H* (21-25) mmol/L ABG Total CO2 43 H (19-24) mmol/L ABG O2 Saturation 93.2 L (94-97) % Sodium (137-145) mmol/L Chloride (98-107) mmol/L Carbon Dioxide (22-30) mmol/L BUN (7-17) mg/dL Glucose (74-99) mg/dL POC Glucose (mg/dL) 162 H (70-110) mg/dL Calcium (8.4-10.2) mg/dL AST (14-36) U/L C-Reactive Protein (<1.0) mg/dL Total Protein (6.3-8.2) g/dL Albumin (3.5-5.0) g/dL 04/14/23 04/14/23 04/15/23 Range/Units 23:46 23:56 04:03 RBC (3.80-5.40) m/uL Hgb (11.4-16.0) gm/dL Hct (34.0-46.0) % Plt Count (150-450) k/uL APTT (22.0-30.0) sec ABG pH (7.35-7.45) ABG pCO2 (35-45) mmHg ABG pO2 (83-108) mmHg ABG HCO3 (21-25) mmol/L ABG Total CO2 (19-24) mmol/L ABG O2 Saturation (94-97) % Sodium 135 L (137-145) mmol/L Chloride 97 L (98-107) mmol/L Carbon Dioxide 39 H (22-30) mmol/L BUN 26 H (7-17) mg/dL Glucose 135 H (74-99) mg/dL POC Glucose (mg/dL) 142 H 137 H (70-110) mg/dL Calcium 7.7 L (8.4-10.2) mg/dL AST 45 H (14-36) U/L C-Reactive Protein 14.1 H (<1.0) mg/dL Total Protein 5.5 L (6.3-8.2) g/dL Albumin 2.5 L (3.5-5.0) g/dL 04/15/23 04/15/23 04/15/23 Range/Units 04:03 04:03 04:53 RBC 3.25 L (3.80-5.40) m/uL Hgb 9.8 L (11.4-16.0) gm/dL Hct 30.3 L (34.0-46.0) % Plt Count 149 L (150-450) k/uL APTT 63.4 H (22.0-30.0) sec ABG pH (7.35-7.45) ABG pCO2 (35-45) mmHg ABG pO2 (83-108) mmHg ABG HCO3 (21-25) mmol/L ABG Total CO2 (19-24) mmol/L ABG O2 Saturation (94-97) % Sodium (137-145) mmol/L Chloride (98-107) mmol/L Carbon Dioxide (22-30) mmol/L BUN (7-17) mg/dL Glucose (74-99) mg/dL POC Glucose (mg/dL) 133 H (70-110) mg/dL Calcium (8.4-10.2) mg/dL AST (14-36) U/L C-Reactive Protein (<1.0) mg/dL Total Protein (6.3-8.2) g/dL Albumin (3.5-5.0) g/dL 04/15/23 Range/Units 06:46 RBC (3.80-5.40) m/uL Hgb (11.4-16.0) gm/dL Hct (34.0-46.0) % Plt Count (150-450) k/uL APTT (22.0-30.0) sec ABG pH 7.50 H (7.35-7.45) ABG pCO2 56 H (35-45) mmHg ABG pO2 74 L (83-108) mmHg ABG HCO3 43 H* (21-25) mmol/L ABG Total CO2 45 H (19-24) mmol/L ABG O2 Saturation (94-97) % Sodium (137-145) mmol/L Chloride (98-107) mmol/L Carbon Dioxide (22-30) mmol/L BUN (7-17) mg/dL Glucose (74-99) mg/dL POC Glucose (mg/dL) (70-110) mg/dL Calcium (8.4-10.2) mg/dL AST (14-36) U/L C-Reactive Protein (<1.0) mg/dL Total Protein (6.3-8.2) g/dL Albumin (3.5-5.0) g/dL Assessment and Plan Plan: Acute on chronic shortness of breath without any worsening in her hypoxemia. The patient's shortness of breath is multifactorial. The patient is post op for a left upper lobe resection. She has also complete atelectasis of left lower lobe and several attempts to reexpand the lung on the left has failed as the patient has significant tracheal bronchomalacia, mucus, Haemophilus influenza pneumonia and narrowing of the left lower lobe orifice as noted on several bronchoscopies. The patient underwent a Pleurx catheter insertion. The left- sided pleural effusion was evacuated. There is adequate expansion of the left lung/left lower lobe and there is no evidence of pneumothorax on today's chest x-ray. There is obvious improvement in oxygenation on today's blood gases. Fever, likely secondary to an underlying pneumonia, currently afebrile Complete opacification of the left lung/left lower lobe, combination of consolidation/pneumonia/pleural effusion, improved with mechanical ventilation, physical bronchoscopies, antibiotics and the Pleurx catheter insertion on the left. Pulmonary adenocarcinoma with a 1.5 cm mass in the left upper lobe. Surgery was done on and the patient has a final pathologic staging is T1b N1 M0 disease. Left lung collapse, essentially the left lower lobe secondary to mucous plugs. Bronchoscopy was done during the early hospitalization the patient was found to have mucous plugs, significant tracheal bronchomalacia, narrowing of the left lower lobe bronchial orifice. There is only a small left-sided pleural effusion and the left lung base. left-sided pleural effusion, almost Pleurx catheter insertion on 04/14/2023 Tracheobronchomalacia, severe New-onset atrial fibrillation with rapid ventricular response, started on 03/22/2023. The patient continued to have episodes of PAF and currently she is presenting with the same. She is in sinus History of chronic obstructive pulmonary disease. History of CVA. History of diabetes mellitus. History of hypertension. History of hyperlipidemia. History of alcohol abuse and heroin abuse. History of hepatitis B and C. Plan Continue ventilator support We'll do another bronchoscopy for therapeutic airway suctioning Following the bronchoscopy, we'll going to eliminate the sedation and assess weaning parameters and give the patient spontaneous breathing trial, possible extubation today. Chest x-ray shows marked improvement in aeration of the left lung Continue IV meropenem Cardiac rhythm is sinus this morning although the patient continues to have episodes of A. fib patient remains on IV heparin and amiodarone Pleurx catheter inserted Change the Lasix to 40 mg every 24 hours IV fluids to KVO Continue enteral feeding for nutritional support and this will be placed on hold Condition is critical and will continue to follow Continue supportive care Critical care evaluation was done in more than 30 minutes Time with Patient: Greater than 30
--- NOTE | 2023-04-15 09:17 | P.PCN ---
Date of Procedure: 04/15/23 Preoperative Diagnosis: Left lower lobe atelectasis Postoperative Diagnosis: Patent airway and the left lower lobe bronchus, no significant secretions. Normal left upper lobe stump Procedure(s) Performed: Flexible bronchoscopy Anesthesia: MAC Surgeon: Michelle Lucia Pathology: none sent Condition: critical Disposition: ICU Operative Findings: This is a flexible bronchoscopy. This was done in intensive care unit. The patient was already intubated on a mechanical ventilator. The patient was also sedated on propofol. The portable bronchoscope was used to evaluate the patient's airway. I was contemplating extubating this patient. Based on her history of excessive respiratory secretions tracheal bronchomalacia, and airway inspection was done prior to any consideration for extubation The flexible bronchoscope was easily passed through the orotracheal tube and was advanced into the lower trachea. The distal trachea was within normal limits. Jeni was in the midline and symmetrical. He right mainstem bronchus, right upper lobe bronchus, bronchus intermedius, right middle lobe bronchus and the right lower lobe bronchus were all patent without any rest or secretions. Various 10 segments on the right were within normal limits. Examination of left/within normal left mainstem bronchus. The left upper lobe lobectomy stump was within normal limits. Left lower lobe orifice was patent. No respiratory secretions. I was able to visualize the various segments of the left lower lobe without any major difficulties. I'm pleased to report that there is no significant respiratory secretions within the patient's airway. There is ongoing issues with tracheobronchomalacia. No interventions were done. The flexible bronchoscope was removed. Further recommendations are to follow regarding his spontaneous breathing trial and possible extubation today.
[2023-04-15 11:16] LABS: ABG Base Excess 18.3 mmol/L; ABG Oxygen Saturation 97.1 % (94-97); ABG PCO2 58 mmHg (35-45); ABG PH 7.47 (7.35-7.45); ABG PO2 82 mmHg (83-108); ABG TCO2 44 mmol/L (19-24); Allen Test Performed? Yes
[2023-04-15 11:18] LABS: ABG HCO3 42 mmol/L (21-25)
[2023-04-15 12:34] LABS: Glucose,Whole Blood 249 mg/dL (70-110)
--- NOTE | 2023-04-15 13:03 | P.PN ---
Subjective Progress Note Date: 04/15/23 HPI The patient is a 57-year-old female patient who is currently intubated and she is on mechanical ventilation and we requested to see the patient for paroxysmal atrial fibrillation. The history was taken from the chart. Apparently the patient does have history of paroxysmal atrial fibrillation and she was receiving amiodarone orally and also she does have history of stroke and diabetes and hypertension and dyslipidemia and chronic obstructive pulmonary disease and drug abuse. The patient has been in the hospital for few days. 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 She was admitted to the hospital this time with what it seems to be related to pneumonia. Also she underwent bronchoscopy multiple times because of the collapse of the left lung. Currently she is intubated and she is on mechanical ventilation. We consulted to see the patient because she did have an episode of tachycardia yesterday. I did get the EKG which seems to be somewhat concerning for atrial fibrillation which is known to the patient from before. Currently she is back in normal sinus mechanism. For some reason the patient is not on any anticoagulation. Her hemoglobin is stable. I am going to consider starting the patient on heparin IV at this point and consider switching her to oral anticoagulation unless there is any contraindication from another aspects. Beside that continue the current medical regimen including the current dose of amiodarone. The examination is remarkable for stable vital signs with regular rhythm and distant heart sounds and imaged breathing sounds and mild bilateral lower extremity edema noted. 04/15/2023 Patient is extubated today. She had bronchoscopy done which did not show significant respiratory secretions at this time. She had upper works catheter placement yesterday on left side which is draining serosanguineous discharge. It has drained 200 mL since the placement. She has continued to be in sinus rhythm. Heart rate is averaging about 50- 60 b pm. She has not had any episodes of atrial fibrillation over last 48 hours. Last sputum and urine culture from August 2013 showed Klebsiella pneumoniae. BP 131/62 Amiodarone 200 mg, atorvastatin 10 mg, Lasix 40 mg IV daily IV heparin drip. Currently patient is 100% BiPAP supported. She was made DNR/DNI. Assessment Acute respiratory failure s/p Extubation 04/15/23, now DNR DNI, 100% BIPAP suppo rted s/p Left pleurex catheter placement Paroxysmal atrial fibrillation, currently in sinus rhythm Hypertension/dyslipidemia/diabetes History of drug abuse Chronic obstructive pulmonary disease Plan Continue IV Lasix 40mg daily Continue by mouth amiodarone 200 mg daily for rhythm control. Continue heparin IV. transition to oral when off BIPAP and off pleurex catheter Overall prognosis is guarded. Prognosis was discussed with family at bedside. Objective - Vital Signs Vital signs: Vital Signs Temp 98 F 04/15/23 12:00 Pulse 63 04/15/23 12:00 Resp 38 H 04/15/23 12:00 BP 131/62 04/15/23 12:00 Pulse Ox 93 L 04/15/23 12:00 FiO2 50 04/15/23 12:00 Intake & Output 04/14/23 04/15/23 04/15/23 18:59 06:59 18:59 Intake Total 838.704 4441.584 447.939 Output Total 0298 447 9694 Balance -1035.134 561.584 -572.061 Weight 90 kg Intake: IV 380 360 200 Lactated Ringers 1,000 ml 180 260 @ 20 mls/hr IV .Q24H [facility] Rx#:[id number] Meropenem 1 gm In Sodium 200 Chloride 0.9% 100 ml @ 33 .3 mls/hr IVPB Q8HR [facility] Rx#:[id number] Piperacillin-Tazobactam 3 100 100 .375 gm In Sodium Chloride 0.9% 100 ml @ 25 mls/hr IVPB Q8HR [facility] Rx# :[id number] Sodium Chloride 0.9% 1, 100 000 ml @ 20 mls/hr IV . Q24H [facility] Rx#:[id number] Intake, IV Titration 284.866 401.584 127.939 Amount Heparin Sod,Pork in 0.45% 115.297 125.279 NaCl 25,000 unit In 0.45 % NaCl 1 250ml.bag @ 10. 07 UNITS/KG/HR 10 mls/hr IV .Q24H [facility] Rx#: [id number] propofoL 1,000 mg In 169.569 276.305 127.939 Empty Bag 1 bag @ 15 MCG/ KG/MIN 8.577 mls/hr IV . [id number] [facility] Rx#:[id number] Tube Feeding 90 360 90 Other 30 90 30 Output: Drainage 100 Left Lateral Back 100 Urine 0481 516 6766 Pleural Fluid 550 Estimated Blood Loss 5 Other: Voiding Method Indwelling Catheter Indwelling Catheter Indwelling Catheter - Labs CBC & Chem 7: 04/15/23 04:03 04/15/23 04:03 Labs: Abnormal Lab Results - Last 24 Hours (Table) 04/14/23 04/14/23 04/14/23 Range/Units 14:25 17:15 20:16 RBC (3.80-5.40) m/uL Hgb (11.4-16.0) gm/dL Hct (34.0-46.0) % Plt Count (150-450) k/uL APTT (22.0-30.0) sec ABG pH (7.35-7.45) ABG pCO2 (35-45) mmHg ABG pO2 (83-108) mmHg ABG HCO3 (21-25) mmol/L ABG Total CO2 (19-24) mmol/L ABG O2 Saturation (94-97) % Sodium (137-145) mmol/L Chloride (98-107) mmol/L Carbon Dioxide (22-30) mmol/L BUN (7-17) mg/dL Glucose (74-99) mg/dL POC Glucose (mg/dL) 240 H 253 H 162 H (70-110) mg/dL Calcium (8.4-10.2) mg/dL AST (14-36) U/L C-Reactive Protein (<1.0) mg/dL Total Protein (6.3-8.2) g/dL Albumin (3.5-5.0) g/dL Procalcitonin (0.02-0.09) ng/mL 04/14/23 04/14/23 04/14/23 Range/Units 20:22 20:53 23:46 RBC (3.80-5.40) m/uL Hgb (11.4-16.0) gm/dL Hct (34.0-46.0) % Plt Count (150-450) k/uL APTT 40.8 H (22.0-30.0) sec ABG pH 7.51 H (7.35-7.45) ABG pCO2 52 H (35-45) mmHg ABG pO2 62 L (83-108) mmHg ABG HCO3 41 H* (21-25) mmol/L ABG Total CO2 43 H (19-24) mmol/L ABG O2 Saturation 93.2 L (94-97) % Sodium (137-145) mmol/L Chloride (98-107) mmol/L Carbon Dioxide (22-30) mmol/L BUN (7-17) mg/dL Glucose (74-99) mg/dL POC Glucose (mg/dL) 142 H (70-110) mg/dL Calcium (8.4-10.2) mg/dL AST (14-36) U/L C-Reactive Protein (<1.0) mg/dL Total Protein (6.3-8.2) g/dL Albumin (3.5-5.0) g/dL Procalcitonin (0.02-0.09) ng/mL 04/14/23 04/15/23 04/15/23 Range/Units 23:56 04:03 04:03 RBC (3.80-5.40) m/uL Hgb (11.4-16.0) gm/dL Hct (34.0-46.0) % Plt Count (150-450) k/uL APTT (22.0-30.0) sec ABG pH (7.35-7.45) ABG pCO2 (35-45) mmHg ABG pO2 (83-108) mmHg ABG HCO3 (21-25) mmol/L ABG Total CO2 (19-24) mmol/L ABG O2 Saturation (94-97) % Sodium 135 L (137-145) mmol/L Chloride 97 L (98-107) mmol/L Carbon Dioxide 39 H (22-30) mmol/L BUN 26 H (7-17) mg/dL Glucose 135 H (74-99) mg/dL POC Glucose (mg/dL) 137 H (70-110) mg/dL Calcium 7.7 L (8.4-10.2) mg/dL AST 45 H (14-36) U/L C-Reactive Protein 14.1 H (<1.0) mg/dL Total Protein 5.5 L (6.3-8.2) g/dL Albumin 2.5 L (3.5-5.0) g/dL Procalcitonin 0.74 H (0.02-0.09) ng/mL 04/15/23 04/15/23 04/15/23 Range/Units 04:03 04:03 04:53 RBC 3.25 L (3.80-5.40) m/uL Hgb 9.8 L (11.4-16.0) gm/dL Hct 30.3 L (34.0-46.0) % Plt Count 149 L (150-450) k/uL APTT 63.4 H (22.0-30.0) sec ABG pH (7.35-7.45) ABG pCO2 (35-45) mmHg ABG pO2 (83-108) mmHg ABG HCO3 (21-25) mmol/L ABG Total CO2 (19-24) mmol/L ABG O2 Saturation (94-97) % Sodium (137-145) mmol/L Chloride (98-107) mmol/L Carbon Dioxide (22-30) mmol/L BUN (7-17) mg/dL Glucose (74-99) mg/dL POC Glucose (mg/dL) 133 H (70-110) mg/dL Calcium (8.4-10.2) mg/dL AST (14-36) U/L C-Reactive Protein (<1.0) mg/dL Total Protein (6.3-8.2) g/dL Albumin (3.5-5.0) g/dL Procalcitonin (0.02-0.09) ng/mL 04/15/23 04/15/23 04/15/23 Range/Units 06:46 11:14 12:33 RBC (3.80-5.40) m/uL Hgb (11.4-16.0) gm/dL Hct (34.0-46.0) % Plt Count (150-450) k/uL APTT (22.0-30.0) sec ABG pH 7.50 H 7.47 H (7.35-7.45) ABG pCO2 56 H 58 H (35-45) mmHg ABG pO2 74 L 82 L (83-108) mmHg ABG HCO3 43 H* 42 H* (21-25) mmol/L ABG Total CO2 45 H 44 H (19-24) mmol/L ABG O2 Saturation 97.1 H (94-97) % Sodium (137-145) mmol/L Chloride (98-107) mmol/L Carbon Dioxide (22-30) mmol/L BUN (7-17) mg/dL Glucose (74-99) mg/dL POC Glucose (mg/dL) 249 H (70-110) mg/dL Calcium (8.4-10.2) mg/dL AST (14-36) U/L C-Reactive Protein (<1.0) mg/dL Total Protein (6.3-8.2) g/dL Albumin (3.5-5.0) g/dL Procalcitonin (0.02-0.09) ng/mL
[2023-04-15] MEDS: MORPHINE SULFATE 2 MG/ML SYRINGE IVP PRN (14:27)
--- NOTE | 2023-04-15 14:53 | P.PN ---
Subjective Progress Note Date: 04/15/23 Principal diagnosis: Reason for follow-up is fever/UTI and pneumonia Patient is a 57-year-old female with a past medical history significant for non-small cell lung cancer in this patient who is status post left upper lobe resection, presenting to the hospital March 29, 2023 for evaluation of increasing shortness of breath, patient got intubated because of her respiratory status however got extubated 04/15/2023 patient did have a fever probably this infectious disease evaluation. On today's evaluation that is 04/15/2023 patient did have resolution of her fever is afebrile today patient has been extubated currently on the BiPAP, patient slightly lethargic and elevated good historian no vomiting diarrhea or any other changes reported by the nursing staff. Patient white count 6.9 creatinine 0.62 procalcitonin 0.74, sputum with Klebsiella urine with Klebsiella and E. coli Objective - Vital Signs Vital signs: Vital Signs Temp 98 F 04/15/23 12:00 Pulse 63 04/15/23 12:00 Resp 38 H 04/15/23 12:00 BP 131/62 04/15/23 12:00 Pulse Ox 93 L 04/15/23 12:00 FiO2 50 04/15/23 12:00 Intake & Output 04/14/23 04/15/23 04/15/23 18:59 06:59 18:59 Intake Total 969.558 7381.584 447.939 Output Total 6810 616 8929 Balance -1035.134 561.584 -572.061 Weight 90 kg Intake: IV 380 360 200 Lactated Ringers 1,000 ml 180 260 @ 20 mls/hr IV .Q24H [facility] Rx#:[id number] Meropenem 1 gm In Sodium 200 Chloride 0.9% 100 ml @ 33 .3 mls/hr IVPB Q8HR [facility] Rx#:[id number] Piperacillin-Tazobactam 3 100 100 .375 gm In Sodium Chloride 0.9% 100 ml @ 25 mls/hr IVPB Q8HR [facility] Rx# :[id number] Sodium Chloride 0.9% 1, 100 000 ml @ 20 mls/hr IV . Q24H [facility] Rx#:[id number] Intake, IV Titration 284.866 401.584 127.939 Amount Heparin Sod,Pork in 0.45% 115.297 125.279 NaCl 25,000 unit In 0.45 % NaCl 1 250ml.bag @ 10. 07 UNITS/KG/HR 10 mls/hr IV .Q24H [facility] Rx#: [id number] propofoL 1,000 mg In 169.569 276.305 127.939 Empty Bag 1 bag @ 15 MCG/ KG/MIN 8.577 mls/hr IV . [id number] [facility] Rx#:[id number] Tube Feeding 90 360 90 Other 30 90 30 Output: Drainage 100 Left Lateral Back 100 Urine 8786 160 7099 Pleural Fluid 550 Estimated Blood Loss 5 Other: Voiding Method Indwelling Catheter Indwelling Catheter Indwelling Catheter - Exam GENERAL DESCRIPTION: Middle-aged female lying in bed in no distress RESPIRATORY SYSTEM: Unlabored breathing , coarse breath sounds bilaterally HEART: S1 S2 regular rate and rhythm , ABDOMEN: Soft , no tenderness EXTREMITIES: No edema feet - Labs CBC & Chem 7: 04/15/23 04:03 04/15/23 04:03 Labs: Abnormal Lab Results - Last 24 Hours (Table) 04/14/23 04/14/23 04/14/23 Range/Units 14:25 17:15 20:16 RBC (3.80-5.40) m/uL Hgb (11.4-16.0) gm/dL Hct (34.0-46.0) % Plt Count (150-450) k/uL APTT (22.0-30.0) sec ABG pH (7.35-7.45) ABG pCO2 (35-45) mmHg ABG pO2 (83-108) mmHg ABG HCO3 (21-25) mmol/L ABG Total CO2 (19-24) mmol/L ABG O2 Saturation (94-97) % Sodium (137-145) mmol/L Chloride (98-107) mmol/L Carbon Dioxide (22-30) mmol/L BUN (7-17) mg/dL Glucose (74-99) mg/dL POC Glucose (mg/dL) 240 H 253 H 162 H (70-110) mg/dL Calcium (8.4-10.2) mg/dL AST (14-36) U/L C-Reactive Protein (<1.0) mg/dL Total Protein (6.3-8.2) g/dL Albumin (3.5-5.0) g/dL Procalcitonin (0.02-0.09) ng/mL 04/14/23 04/14/23 04/14/23 Range/Units 20:22 20:53 23:46 RBC (3.80-5.40) m/uL Hgb (11.4-16.0) gm/dL Hct (34.0-46.0) % Plt Count (150-450) k/uL APTT 40.8 H (22.0-30.0) sec ABG pH 7.51 H (7.35-7.45) ABG pCO2 52 H (35-45) mmHg ABG pO2 62 L (83-108) mmHg ABG HCO3 41 H* (21-25) mmol/L ABG Total CO2 43 H (19-24) mmol/L ABG O2 Saturation 93.2 L (94-97) % Sodium (137-145) mmol/L Chloride (98-107) mmol/L Carbon Dioxide (22-30) mmol/L BUN (7-17) mg/dL Glucose (74-99) mg/dL POC Glucose (mg/dL) 142 H (70-110) mg/dL Calcium (8.4-10.2) mg/dL AST (14-36) U/L C-Reactive Protein (<1.0) mg/dL Total Protein (6.3-8.2) g/dL Albumin (3.5-5.0) g/dL Procalcitonin (0.02-0.09) ng/mL 04/14/23 04/15/23 04/15/23 Range/Units 23:56 04:03 04:03 RBC (3.80-5.40) m/uL Hgb (11.4-16.0) gm/dL Hct (34.0-46.0) % Plt Count (150-450) k/uL APTT (22.0-30.0) sec ABG pH (7.35-7.45) ABG pCO2 (35-45) mmHg ABG pO2 (83-108) mmHg ABG HCO3 (21-25) mmol/L ABG Total CO2 (19-24) mmol/L ABG O2 Saturation (94-97) % Sodium 135 L (137-145) mmol/L Chloride 97 L (98-107) mmol/L Carbon Dioxide 39 H (22-30) mmol/L BUN 26 H (7-17) mg/dL Glucose 135 H (74-99) mg/dL POC Glucose (mg/dL) 137 H (70-110) mg/dL Calcium 7.7 L (8.4-10.2) mg/dL AST 45 H (14-36) U/L C-Reactive Protein 14.1 H (<1.0) mg/dL Total Protein 5.5 L (6.3-8.2) g/dL Albumin 2.5 L (3.5-5.0) g/dL Procalcitonin 0.74 H (0.02-0.09) ng/mL 04/15/23 04/15/23 04/15/23 Range/Units 04:03 04:03 04:53 RBC 3.25 L (3.80-5.40) m/uL Hgb 9.8 L (11.4-16.0) gm/dL Hct 30.3 L (34.0-46.0) % Plt Count 149 L (150-450) k/uL APTT 63.4 H (22.0-30.0) sec ABG pH (7.35-7.45) ABG pCO2 (35-45) mmHg ABG pO2 (83-108) mmHg ABG HCO3 (21-25) mmol/L ABG Total CO2 (19-24) mmol/L ABG O2 Saturation (94-97) % Sodium (137-145) mmol/L Chloride (98-107) mmol/L Carbon Dioxide (22-30) mmol/L BUN (7-17) mg/dL Glucose (74-99) mg/dL POC Glucose (mg/dL) 133 H (70-110) mg/dL Calcium (8.4-10.2) mg/dL AST (14-36) U/L C-Reactive Protein (<1.0) mg/dL Total Protein (6.3-8.2) g/dL Albumin (3.5-5.0) g/dL Procalcitonin (0.02-0.09) ng/mL 04/15/23 04/15/23 04/15/23 Range/Units 06:46 11:14 12:33 RBC (3.80-5.40) m/uL Hgb (11.4-16.0) gm/dL Hct (34.0-46.0) % Plt Count (150-450) k/uL APTT (22.0-30.0) sec ABG pH 7.50 H 7.47 H (7.35-7.45) ABG pCO2 56 H 58 H (35-45) mmHg ABG pO2 74 L 82 L (83-108) mmHg ABG HCO3 43 H* 42 H* (21-25) mmol/L ABG Total CO2 45 H 44 H (19-24) mmol/L ABG O2 Saturation 97.1 H (94-97) % Sodium (137-145) mmol/L Chloride (98-107) mmol/L Carbon Dioxide (22-30) mmol/L BUN (7-17) mg/dL Glucose (74-99) mg/dL POC Glucose (mg/dL) 249 H (70-110) mg/dL Calcium (8.4-10.2) mg/dL AST (14-36) U/L C-Reactive Protein (<1.0) mg/dL Total Protein (6.3-8.2) g/dL Albumin (3.5-5.0) g/dL Procalcitonin (0.02-0.09) ng/mL Assessment and Plan (1) Pneumonia Current Visit: Yes Status: Acute Code(s): J18.9 - PNEUMONIA, UNSPECIFIED ORGANISM SNOMED Code(s): 516515654 (2) UTI (urinary tract infection) Current Visit: Yes Status: Acute Code(s): N39.0 - URINARY TRACT INFECTION, SITE NOT SPECIFIED SNOMED Code(s): 53124615 Plan: 1-1patient with a fever in this patient admitted to the hospital for more than 2 weeks now with presentation with increasing shortness of breath patient did have a history of non-small cell lung cancer the patient did have multiple bronchoscopy during this admission with mucous plugging and bloody at the patient did have a Pleurx catheter placement today with a recent sputum culture grew Klebsiella, and urine grew Klebsiella and E. coli, source of the fever could be related to either lung or urinary source as currently no evidence of any peripheral IV site cellulitis abdominal soft clinical examination and there is no evidence of any extremity cellulitis no joint swelling and the patient tested negative for RSV COVID and influenza 2-patient to continue with Zosyn and monitor clinical course closely Dictation was produced using scrible dictation software. please excuse any grammatical, word or spelling errors. Time with Patient: Less than 30
[2023-04-15] MEDS: HEPARIN SOD,PORK IN 0.45% NACL 25,000 UNIT in 0.45% NACL 1 250ML.BAG IV SCH (15:54)
[2023-04-15 18:04] LABS: Glucose,Whole Blood 181 mg/dL (70-110)
--- NOTE | 2023-04-15 19:05 | P.PN ---
Subjective Progress Note Date: 04/15/23 Patient is a 57-year-old female with a past medical history of hypertension, hyperlipidemia, diabetes type 2, history of CVA/TIA with right-sided weakness, recent history of lung cancer, left upper lobectomy in February 2023, bipolar/depression and currently everyday smoker presents to ER with complaints of difficulty in breathing and chest pain. Patient was recently discharged from the hospital on 03/27/2023. Does have a history of non-small cell lung cancer underwent left upper lobectomy complicated by persistent left lower lobe atelectasis requiring multiple bronchoscopies during recent hospitalization. Valve cultures from 07/22/2022 showed haemophilus influenza. Patient was discharged home on Augmentin. On admission chest x-ray showed similar opacification of the left lung likely secondary to atelectasis and large pleural effusion. No pneumothorax visualized. Small right effusion. EKG showed atrial fibrillation with rapid ventricular response with heart rate 117. Patient is currently not on any anticoagulation. Continued on amiodarone. Laboratory data showed WBC 7.7 hemoglobin 11.9 and platelets 186 ABG showed pH 7.41 pCO2 49 and pO2 105 Sodium 136 potassium 4.5 chloride 99 bicarb is 30 BUN 12 and creatinine 0.47 blood sugar 257 and lactic acid 1.7 and calcium 7.9 ESR not elevated. Troponin x 1 negative and proBNP 3090. Influenza A, B, RSV and COVID-19 PCR not detected. Lung resection on 03/15/2023 with final pathology showing moderate to poorly differentiated pulmonary adenocarcinoma. All margins negative for malignancy. 1 of 3 hilar lymph nodes positive for metastatic carcinoma. 03/30/2023 Patient is seen in follow up today with pulmonary following as well as cardiology and adjustments to medications being done. Home medications reviewed and resumed. CT surgery consulted and discussing with surgery about complete lobectomy of the left. Patient continues with pleural effusions noted and has been started on IV lasix 20mg bid and will continue. Labs reviewed and within normal limits. Will follow up on repeat labs and monitor electrolytes and kidney functions closely. Patient is currently afebrile and denies worsening shortness of breath. Patient is continued on 4L and was sent home on this previously last week. Blood sugars elevated and will continue accuchecks achs and adjust medications accordingly. 03/31/2023 Patient seen and evaluated in follow-up today with pulmonary along with cardiothoracic surgery following. Discussing further about possible complete lobectomy of the left with cardiothoracic. Patient per nursing staff is lethargic and has been receiving scheduled Xanax along with Neurontin and pain medications and will decrease the dose of Xanax admitted as needed as well as decreasing the dose of Neurontin. Patient encouraged to increase activity as tolerated and get up more frequently out of the bed and sit up in the chair and work with physical therapy daily. Blood sugars remained elevated and will adjust and make long acting twice daily and continue with sliding scale. Patient continues on 2-3 L via nasal cannula and weaning FiO2 as tolerated. Patient is currently afebrile denies chest pain or palpitations and denies worsening shortness of breath. Patient continues to use incentive spirometer and needs encouragement to do so. Patient is receiving breathing inhalational treatments as well. 04/01/2023 Patient is seen in follow-up today scheduled to undergo bronchoscopy with pulmonary and cardiothoracic surgery following closely. Chest x-ray ordered for post bronchoscopy which is pending. Patient's blood sugars slightly improved and have added long-acting twice daily along with sliding scale. Encouraged increase activity as tolerated. Patient to be evaluated by physical therapy and would recommend daily. Patient also with incentive spirometer at the bedside encouraged to use at least 10 times every hour while awake. Patient reports not feeling she is having worsening shortness of breath although continues to have shortness of breath. 04/02/2023 Patient seen in follow-up this morning currently nothing by mouth and scheduled to undergo repeat bronchoscopy as follow-up chest x-ray showed near complete opacification on the left as well status post bronchoscopy yesterday. Patient is lethargic but arousable and will adjust the medications again and will discontinue Xanax. Patient worked with physical therapy this patient is significantly weak and has had multiple prolonged hospitalizations would likely be going to [facility] on discharge. Will await clearance from CT surgery pulmonary to discuss discharge planning. Patient is afebrile with no reports of worsening shortness of breath. Patient tolerating diet although given patient's lethargy will recommend aspiration precautions. 04/03/2023 Patient is evaluated today sitting up in the chair, currently wearing BiPAP. Patient underwent bronchoscopy today with Dr. Oshea pending surgical report. Chest xray reveals extensive pleural parenchymal opacity left hemithorax some interval improvement of the aeration of the left lung. Worsening small - to moderate right pleural effusion with adjacent atelectasis and or consolidation. Patient continues on IV lasix 20 mg IV Q12h. Magnesium today 1.5. 04/04/2023 Patient evaluated today sitting up in the chair. Currently on nasal cannula wanting to try and eat breakfast. She is tachypneic using accessory muscles to take a deep breath. She has minimal aeration over the left lung with chest xray today showing near complete white out of the left hemithorax, aeration worsening from yesterday. A small portion of the left upper lung remains aerated now. Ongoing small to moderate left pleural effusion adjacent atelectasis and or consolidation. Patient underwent bronchoscopy again this morning due to the mucus plugging of the left mainstem bronchus. Patient had thick yellow sputum s uctioned from the left main bronchus. Continues on IV lasix 20 mg Q12h, and additionally, has been started on IV steroids toda by pulmonary team. proBNP 2910. Sodium 135, potassium 4.6, BUN 13, creatinine 0.55, magnesium 1.8, glucose 228. 04/05/2023 Patient is seen in follow-up today currently awaiting to undergo bronchoscopy again with cardiothoracic surgery on 04/06/2023. Chest x-ray continues to show near complete opacification on the left. Patient continues with ongoing bilateral pleural effusions and is maintained on IV Lasix. Patient started on IV steroids with pulmonary following closely and blood sugars are completely uncontrolled in the 500s. Will initiate insulin drip and continue with protocol and Accu-Cheks every hour and tighter glycemic control. Patient will be nothing by mouth at midnight again for bronchoscopy and will await report. Will discuss further with CT surgery regarding overall treatment plan. Patient with significant weakness recommend physical therapy daily. Patient needs Encouraged increased activity as tolerated as patient has been mostly sitting and sleeping throughout most of hospitalization. 04/06/2023 Patient is seen in follow-up today currently sitting up in the chair awaiting to undergo repeat bronchoscopy with CT surgery today. Patient continues on 4-5 L via nasal cannula reporting continued shortness of breath. Patient's blood sugars are more controlled and patient is maintained on insulin drip and was currently nothing by mouth for the procedure. Will await surgical report and continue insulin drip for now with close monitoring to monitor for any episodes of hypoglycemia. Patient is afebrile denies chest pain or palpitations. 04/07/2023 Patient is seen and evaluated in follow-up currently in the ICU as of yesterday post bronchoscopy this patient had some increased respiratory distress requiring mechanical ventilation and is currently maintained on FiO2 of 60% with a PEEP of 8. Plan is for repeat bronchoscopy today with pulmonary and tentatively scheduled for repeat bronchoscopies on and Wednesday. Patient remains on insulin drip and blood sugars are more controlled and patient is being started on tube feedings and will adjust the medications and continue sliding scale and add long-acting if needed. Patient is a poorly controlled diabetic with hyperglycemia. Patient is currently afebrile showing A. fib on the monitor. Patient does have history of atrial fibrillation and cardiology has been consulted. Prognosis remains extremely guarded at this time. 04/08/2023 Patient is seen in follow-up today remains in the ICU on mechanical ventilation. Follow-up chest x-ray continues to show complete opacification medication on the left and scheduled for bronchoscopy again today. Patient to also undergo left side thoracentesis. Patient is afebrile and current settings on the vent are FI02 of 60% and peep is 10. Patient prognosis is extremely guarded. 04/09/2023 Patient seen and evaluated in follow-up continues to be in the ICU mechanical ventilation. FiO2 is 100% and PEEP has been increased to 10. Plan is for repeat bronchoscopy with pulmonary platform worker today. Patient has been having daily bronchoscopies for continued mucus plugging. Patient's chest x-rays continue to show left hemithorax and complete opacification. Patient is currently afebrile. Patient maintained on tube feeds and recommend monitoring residuals. Per nursing staff there were some residual noted and patient reported not to have a bowel movement in the last few days. Continue bowel regimen and monitoring of residuals with aspiration precautions. Overall prognosis remains extremely guarded at this time. Blood sugars are becoming slightly more elevated and have added long-acting twice daily and will adjust accordingly. 04/12/2023 Patient was seen and evaluated in follow-up this morning continues to be in the ICU on mechanical ventilation. FiO2 is 50% with a PEEP of 10. Failed weaning trials today. Patietn being followed by multiple medical consultations with plans of possible chest tube insertion with CT surgery. Follow up chest xray continues to show pleural effusions and opacities on the left. Patient is being followed by cardiology and currently off the cardizem drip. Afebrile and tolerating tube feeds. Repeat sputum and urine cultures pending. 04/13/2023 Patient is seen in follow-up continues on mechanical ventilation with difficulty in weaning FiO2 is 50% and PEEP is 5. Multiple medical consultations following including CT surgery with discussion being have a family at the bedside about possible repeat bronchoscopy and possible tracheostomy on 04/14/2023. Patient repeat preliminary urine showing Klebsiella as well as E. coli and patient is being started on meropenem. Patient is currently afebrile and maintained on sedation. Prognosis continues to remain guarded at this time. 04/14/2023 Patient is seen in follow-up today with multiple medical consultations following. CT surgery with plans of repeat bronchoscopy and possible chest tube placement today. Patient having low grade temps and repeat urine and sputum culture with klebsiella and ecoli on Merrem. Patient is having low grade temps and will consult ID and appreciate input and recommendations. Patient tolerating tube feeds and will continue to monitor for residuals. Tube feed on hold for procedure. Continue current regimen with blood sugars and titrate as needed. 04/15/2023 Patient is seen in follow-up today continues to be in the ICU plans for repeat bronchoscopy today with pulmonary. Patient is continued on mechanical ventilation and just extubated 15 minutes prior to exam and currently maintained on BiPAP. Patient sounds extremely rhonchorous congested and appears to be slightly confused and lethargic still. High risk for reintubation. CODE STATUS was addressed with family members present and patient and no further wishes for intubation if requiring. Patient has been having low-grade temps and maintained on antibiotics with infectious disease following. Patient reporting some pain and will add low-dose medications. Await improvement of respiratory status to initiate oral intake. Continue to monitor Accu-Cheks before meals and at bedtime with current regimen. Review of systems: Unable to completely assess as patient was just extubated 15 minutes prior to exam PHYSICAL EXAMINATION: Patient is a 57-year-old female is currently on BiPAP and slightly lethargic although arousing Well-developed, well-nourished. Elderly-appearing. obese HEENT: Normocephalic. Neck is supple. Pupils reactive. Nostrils clear. Oral cavity is moist. Neck reveals no JVD, carotid bruits, or thyromegaly. CHEST EXAMINATION: Trachea is central. Symmetrical expansion . Left basilar diminished sounds. Coarse rhonchi and some crackles noted. CARDIAC: S1, S2 muffled, irregular ABDOMEN: Soft. Bowel sounds present. Nontender. No organomegaly. No abdominal bruits. Extremities: Lower extremity trace edema. No clubbing or cyanosis Neurologically sedated on mechanical ventilation at this time Skin: No rash or skin lesions. Musculoskeletal: No joint swelling or deformity. Assessment: Worsening shortness of breath secondary to persistent left lower lobe atelectasis/collapse despite multiple bronchoscopies during recent admission and Pleural effusion. Patient is status post multiple bronchoscopies with repeat done this morning and patient was extubated and currently on BiPAP. Weaning FiO2 as tolerated. Haemophilus influenza pneumonia. Recent BAL culture showed haemophilus. Repeat sputum and urine cultures were taken and showing Klebsiella along with E. coli with sensitivities and patient is continued on Merrem. Patient is having temps and infectious disease following Paroxysmal atrial fibrillation with rapid ventricular rate. Patient has new onset A-fib on 03/21/2023. Continued on amiodarone. Not on anticoagulation. Patient is off the Cardizem drip and currently rate controlled and cardiology remains to be following Pulmonary adenocarcinoma with recent left upper lobe resection on 03/15/2023 Acute on chronic hypoxic respiratory failure. Patient was at 2 L during recent discharge. Severe tracheal bronchomalacia COPD History of CVA with right-sided weakness Diabetes type 2, uncontrolled with hyperglycemia Hypertension Hyperlipidemia History of hepatitis B&C History of alcohol abuse and hides abuse Anxiety/depression and PTSD/bipolar. Currently everyday smoker, reports to quitting on last admission obesity with a bmi of 32.7 GI and DVT prophylaxis No code Plan: Patient had multiple bronchoscopy this admission and currently in the ICU and has just been extubated on 04/15/2023 and currently on BiPAP weaning FiO2 as tolerated. CODE STATUS was addressed with family and patient and patient wishes to be no code and no further intubation Blood sugars being monitored and will continue current regimen and adjust accordingly Patient to continue on telemetry monitoring for afib and cardiology following and adjusting medications. Patient is not currently on any anticoagulation. Currently rate controlled with cardiology following Follow-up on repeat labs and repeat chest x-ray in the a.m. Continue aspiration precautions and swallow eval once more awake and respiratory status improves Due to multiple complex medical issues, overall prognosis is extremely guarded at this time. Patient is high risk for requiring reintubation. The impression and plan of care has been dictated by Rahel Crabtree, Nurse Practitioner as directed. Dr. Gay MD I have performed a history and examination and MDM of this patient, discussed the same with the dictator, and agree with the dictator's assessment and plan as written ,documented as a scribe. Based on total visit time, I have performed more than 50% of the visit. Objective - Vital Signs Vital signs: Vital Signs Temp 99.0 F 04/15/23 08:00 Pulse 56 L 04/15/23 09:00 Resp 21 04/15/23 09:00 BP 110/55 04/15/23 09:00 Pulse Ox 98 04/15/23 09:00 FiO2 50 04/15/23 08:00 Intake & Output 04/14/23 04/15/23 04/15/23 18:59 06:59 18:59 Intake Total 803.679 8843.584 302.937 Output Total 1820 650 170 Balance -1035.134 561.584 132.937 Weight 90 kg Intake: IV 380 360 90 Lactated Ringers 1,000 ml 180 260 @ 20 mls/hr IV .Q24H [facility] Rx#:[id number] Meropenem 1 gm In Sodium 200 Chloride 0.9% 100 ml @ 33 .3 mls/hr IVPB Q8HR [facility] Rx#:[id number] Piperacillin-Tazobactam 3 100 50 .375 gm In Sodium Chloride 0.9% 100 ml @ 25 mls/hr IVPB Q8HR [facility] Rx# :[id number] Sodium Chloride 0.9% 1, 40 000 ml @ 20 mls/hr IV . Q24H [facility] Rx#:[id number] Intake, IV Titration 284.866 401.584 122.937 Amount Heparin Sod,Pork in 0.45% 115.297 125.279 NaCl 25,000 unit In 0.45 % NaCl 1 250ml.bag @ 10. 07 UNITS/KG/HR 10 mls/hr IV .Q24H [facility] Rx#: [id number] propofoL 1,000 mg In 169.569 276.305 122.937 Empty Bag 1 bag @ 15 MCG/ KG/MIN 8.577 mls/hr IV . [id number] [facility] Rx#:[id number] Tube Feeding 90 360 60 Other 30 90 30 Output: Drainage 100 Left Lateral Back 100 Urine 1265 550 170 Pleural Fluid 550 Estimated Blood Loss 5 Other: Voiding Method Indwelling Catheter Indwelling Catheter Indwelling Catheter - Labs CBC & Chem 7: 04/15/23 04:03 04/15/23 04:03 Labs: Abnormal Lab Results - Last 24 Hours (Table) 04/14/23 04/14/23 04/14/23 Range/Units 12:37 14:25 17:15 RBC (3.80-5.40) m/uL Hgb (11.4-16.0) gm/dL Hct (34.0-46.0) % Plt Count (150-450) k/uL APTT (22.0-30.0) sec ABG pH (7.35-7.45) ABG pCO2 (35-45) mmHg ABG pO2 (83-108) mmHg ABG HCO3 (21-25) mmol/L ABG Total CO2 (19-24) mmol/L ABG O2 Saturation (94-97) % Sodium (137-145) mmol/L Chloride (98-107) mmol/L Carbon Dioxide (22-30) mmol/L BUN (7-17) mg/dL Glucose (74-99) mg/dL POC Glucose (mg/dL) 208 H 240 H 253 H (70-110) mg/dL Calcium (8.4-10.2) mg/dL AST (14-36) U/L C-Reactive Protein (<1.0) mg/dL Total Protein (6.3-8.2) g/dL Albumin (3.5-5.0) g/dL Procalcitonin (0.02-0.09) ng/mL 04/14/23 04/14/23 04/14/23 Range/Units 20:16 20:22 20:53 RBC (3.80-5.40) m/uL Hgb (11.4-16.0) gm/dL Hct (34.0-46.0) % Plt Count (150-450) k/uL APTT 40.8 H (22.0-30.0) sec ABG pH 7.51 H (7.35-7.45) ABG pCO2 52 H (35-45) mmHg ABG pO2 62 L (83-108) mmHg ABG HCO3 41 H* (21-25) mmol/L ABG Total CO2 43 H (19-24) mmol/L ABG O2 Saturation 93.2 L (94-97) % Sodium (137-145) mmol/L Chloride (98-107) mmol/L Carbon Dioxide (22-30) mmol/L BUN (7-17) mg/dL Glucose (74-99) mg/dL POC Glucose (mg/dL) 162 H (70-110) mg/dL Calcium (8.4-10.2) mg/dL AST (14-36) U/L C-Reactive Protein (<1.0) mg/dL Total Protein (6.3-8.2) g/dL Albumin (3.5-5.0) g/dL Procalcitonin (0.02-0.09) ng/mL 04/14/23 04/14/23 04/15/23 Range/Units 23:46 23:56 04:03 RBC (3.80-5.40) m/uL Hgb (11.4-16.0) gm/dL Hct (34.0-46.0) % Plt Count (150-450) k/uL APTT (22.0-30.0) sec ABG pH (7.35-7.45) ABG pCO2 (35-45) mmHg ABG pO2 (83-108) mmHg ABG HCO3 (21-25) mmol/L ABG Total CO2 (19-24) mmol/L ABG O2 Saturation (94-97) % Sodium (137-145) mmol/L Chloride (98-107) mmol/L Carbon Dioxide (22-30) mmol/L BUN (7-17) mg/dL Glucose (74-99) mg/dL POC Glucose (mg/dL) 142 H 137 H (70-110) mg/dL Calcium (8.4-10.2) mg/dL AST (14-36) U/L C-Reactive Protein (<1.0) mg/dL Total Protein (6.3-8.2) g/dL Albumin (3.5-5.0) g/dL Procalcitonin 0.74 H (0.02-0.09) ng/mL 0104/15/23 04/15/23 Range/Units 04:03 04:03 04:03 RBC 3.25 L (3.80-5.40) m/uL Hgb 9.8 L (11.4-16.0) gm/dL Hct 30.3 L (34.0-46.0) % Plt Count 149 L (150-450) k/uL APTT 63.4 H (22.0-30.0) sec ABG pH (7.35-7.45) ABG pCO2 (35-45) mmHg ABG pO2 (83-108) mmHg ABG HCO3 (21-25) mmol/L ABG Total CO2 (19-24) mmol/L ABG O2 Saturation (94-97) % Sodium 135 L (137-145) mmol/L Chloride 97 L (98-107) mmol/L Carbon Dioxide 39 H (22-30) mmol/L BUN 26 H (7-17) mg/dL Glucose 135 H (74-99) mg/dL POC Glucose (mg/dL) (70-110) mg/dL Calcium 7.7 L (8.4-10.2) mg/dL AST 45 H (14-36) U/L C-Reactive Protein 14.1 H (<1.0) mg/dL Total Protein 5.5 L (6.3-8.2) g/dL Albumin 2.5 L (3.5-5.0) g/dL Procalcitonin (0.02-0.09) ng/mL 04/15/23 04/15/23 Range/Units 04:53 06:46 RBC (3.80-5.40) m/uL Hgb (11.4-16.0) gm/dL Hct (34.0-46.0) % Plt Count (150-450) k/uL APTT (22.0-30.0) sec ABG pH 7.50 H (7.35-7.45) ABG pCO2 56 H (35-45) mmHg ABG pO2 74 L (83-108) mmHg ABG HCO3 43 H* (21-25) mmol/L ABG Total CO2 45 H (19-24) mmol/L ABG O2 Saturation (94-97) % Sodium (137-145) mmol/L Chloride (98-107) mmol/L Carbon Dioxide (22-30) mmol/L BUN (7-17) mg/dL Glucose (74-99) mg/dL POC Glucose (mg/dL) 133 H (70-110) mg/dL Calcium (8.4-10.2) mg/dL AST (14-36) U/L C-Reactive Protein (<1.0) mg/dL Total Protein (6.3-8.2) g/dL Albumin (3.5-5.0) g/dL Procalcitonin (0.02-0.09) ng/mL
[2023-04-15] MEDS: LACTATED RINGERS 1,000 ML IV SCH (20:56)
[2023-04-15 23:45] LABS: Glucose,Whole Blood 107 mg/dL (70-110)
[2023-04-16] MEDS: IPRATROPIUM-ALBUTEROL 3 ML NEB INHALATION PRN (03:00)
[2023-04-16] MEDS: ACETYLCYSTEINE 800 MG/4 ML VIAL INHALATION SCH ×3 (03:00→12:41)
[2023-04-16] MEDS: guaiFENesin SYRUP 100MG/5ML 200 MG/10 ML CUP PO SCH ×4 (03:08→12:25)
[2023-04-16] MEDS: INSULIN ASPART (NovoLOG) 100 UNIT/ML VIAL SQ SCH ×3 (03:08→12:36)
[2023-04-16] MEDS: MORPHINE SULFATE 2 MG/ML SYRINGE IVP PRN ×2 (03:09→08:41)
[2023-04-16 03:16] LABS: Glucose,Whole Blood 96 mg/dL (70-110)
[2023-04-16 05:02] LABS: Basophils % (A) 1 %; Eosinophils # (A) 0.1 k/uL (0-0.7); Eosinophils % (A) 2 %; HCT 35.4 % (34.0-46.0); HGB 11.2 gm/dL (11.4-16.0); Hypochromasia Marked; Lymphocytes # (A) 1.6 k/uL (1.0-4.8); Lymphocytes % (A) 21 %; MCH 29.9 pg (25.0-35.0); MCHC 31.7 g/dL (31.0-37.0); MCV 94.3 fL (80.0-100.0); Mean Platelet Volume 8.1; Monocytes # (A) 0.5 k/uL (0-1.0); Monocytes % (A) 6 %; Neutrophils # (A) 5.3 k/uL (1.3-7.7); Neutrophils % (A) 70 %; Platelet Count 174 k/uL (150-450); Poikilocytosis Slight; RBC 3.75 m/uL (3.80-5.40); RDW 14.1 % (11.5-15.5); WBC 7.6 k/uL (3.8-10.6)
[2023-04-16 05:23] LABS: African American GFR (CKD) >90 (>60 ml/min/1.73 sqM); Anion Gap 3 mmol/L; Blood Urea Nitrogen 23 mg/dL (7-17); Calcium 8.3 mg/dL (8.4-10.2); Carbon Dioxide 40 mmol/L (22-30); Chloride 97 mmol/L (98-107); Glucose 115 mg/dL (74-99); Non-African American GFR(CKD) >90 (>60 ml/min/1.73 sqM); Potassium 3.6 mmol/L (3.5-5.1); Sodium 140 mmol/L (137-145)
[2023-04-16] MEDS ORDERED: DEXTROSE 5% IN WATER 100 ML with AMIODARONE 150 MG IV ONE (05:45)
[2023-04-16] MEDS: POTASSIUM CHLORIDE 10 MEQ in WATER FOR INJECTION 1 100ML.BAG IVPB SCH ×2 (05:49→08:43)
[2023-04-16] MEDS ORDERED: AMIODARONE 360 MG in DEXTROSE 5% IN WATER 200 ML IV ONE ×2 (06:00)
[2023-04-16 06:29] LABS: Glucose,Whole Blood 173 mg/dL (70-110)
[2023-04-16] MEDS: INSULIN DETEMIR (LEVEMIR) 100 UNIT/ML SYR SQ SCH (06:48)
--- NOTE | 2023-04-16 08:06 | P.PN ---
Subjective Progress Note Date: 04/16/23 Principal diagnosis: Shortness of breath, rapid atrial fibrillation present on admission. History of moderate to poorly differentiated pulmonary adenocarcinoma with 13 hilar lymph nodes positive for metastatic carcinoma status post robotic-assisted thoracoscopic left upper lobectomy with mediastinal lymph node dissection, postoperative paroxysmal atrial fibrillation, left lower lobe atelectasis and mucous plugging with tracheobronchial malacia status post bronchoscopy 3, ins ulin dependent diabetes with poor glycemic control, hypomagnesemia, current tobacco dependence with cessation prior to previous admission, moderate COPD, current daily EtOH use, hypertension, hyperlipidemia, stroke in 2016 with right- sided weakness, hepatitis B and C, bipolar depression, 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 She was successfully extubated yesterday at 11:40 AM, currently as she is on BiPAP support with current settings 12/5, rate of 12 and FiO2 70%. The patient is achieving 500 mL on her incentive spirometry with much encouragement. She is currently laying in bed, is awake, alert and oriented 3. Bedside telemetry is showing normal sinus rhythm heart rate 66 bpm, although the nurse reports that the patient has been having episodes of paroxysmal atrial fibrillation. Heparin drip remains infusing per protocol. Left chest Pleurx catheter remains in place to low continuous wall suction and connected to a Pleur-evac. No air leak is present. Draining thin ser osanguineous drainage with 70 mL output in the last 24 hours. The patient has made a decision yesterday with her family to become a DO NOT RESUSCITATE. Sputum culture showing positive for Klebsiella pneumoniae and urine culture showing positive for Klebsiella pneumoniae and Escherichia coli. Infectious disease is following and she is currently on Zosyn for antibiotic coverage. Her T-max temperature in the last 24 hours was 99.5F. Laboratory and chest x-ray results reviewed. Objective - Vital Signs Vital signs: Vital Signs Temp 99.5 F 04/16/23 05:00 Pulse 65 04/16/23 07:00 Resp 32 H 04/16/23 07:00 BP 131/89 04/16/23 07:00 Pulse Ox 94 L 04/16/23 07:00 FiO2 70 04/16/23 07:00 Intake & Output 04/15/23 04/16/23 04/16/23 18:59 06:59 18:59 Intake Total 864.873 345 20 Output Total 1595 515 Balance -730.127 -170 20 Weight 90 kg Intake: IV 375 345 20 Lactated Ringers 1,000 ml 220 20 @ 20 mls/hr IV .Q24H [facility] Rx#:[id number] Piperacillin-Tazobactam 3 175 125 .375 gm In Sodium Chloride 0.9% 100 ml @ 25 mls/hr IVPB Q8HR [facility] Rx# :[id number] Sodium Chloride 0.9% 1, 200 000 ml @ 20 mls/hr IV . Q24H [facility] Rx#:[id number] Intake, IV Titration 369.873 Amount Heparin Sod,Pork in 0.45% 241.934 NaCl 25,000 unit In 0.45 % NaCl 1 250ml.bag @ 10. 07 UNITS/KG/HR 10 mls/hr IV .Q24H [facility] Rx#: [id number] propofoL 1,000 mg In 127.939 Empty Bag 1 bag @ 15 MCG/ KG/MIN 8.577 mls/hr IV . [id number] [facility] Rx#:[id number] Tube Feeding 90 Other 30 Output: Urine 1595 515 Other: Voiding Method Indwelling Catheter Indwelling Catheter - Exam CONSTITUTIONAL: Awake, alert, oriented 3, in no acute apparent distress, cooperative. RESPIRATORY: Lungs sounds diminished to her left lobes, few scattered rhonchi throughout. Respirations are symmetrical and nonlabored , currently on BiPAP support with settings 12/5, rate 12, FiO2 70%. Oxygen saturations on current BiPAP settings 96%. Achieving 500 mL on her incentive spirometry with much encouragement. Left Pleurx catheter draining thin serosanguineous drainage with 70 mL output in the last 24 hours. CARDIOVASCULAR: S1, S2 present. Bedside telemetry showing normal sinus rhythm heart rate 66 bpm. Doppler lower extremity pulses bilaterally. Bilateral lower extremity pitting edema present, Anson wraps present from toes to knees, SCDs present. GASTROINTESTINAL: Abdomen soft, nontender, nondistended. Active bowel sounds present 4 quadrants. GENITOURINARY: Cameron catheter present draining clear rodolfo urine, 270 mL in the last 8 hours. INTEGUMENTARY: Skin is warm and dry, no clubbing or cyanosis is present. NEUROLOGIC: No focal deficits. - Allied health notes Allied health notes reviewed: nursing - Labs CBC & Chem 7: 04/16/23 04:27 04/16/23 04:27 Labs: Abnormal Lab Results - Last 24 Hours (Table) 04/15/23 04/15/23 04/15/23 Range/Units 04:03 11:14 12:33 RBC (3.80-5.40) m/uL Hgb (11.4-16.0) gm/dL APTT (22.0-30.0) sec ABG pH 7.47 H (7.35-7.45) ABG pCO2 58 H (35-45) mmHg ABG pO2 82 L (83-108) mmHg ABG HCO3 42 H* (21-25) mmol/L ABG Total CO2 44 H (19-24) mmol/L ABG O2 Saturation 97.1 H (94-97) % Chloride (98-107) mmol/L Carbon Dioxide (22-30) mmol/L BUN (7-17) mg/dL Glucose (74-99) mg/dL POC Glucose (mg/dL) 249 H (70-110) mg/dL Calcium (8.4-10.2) mg/dL Procalcitonin 0.74 H (0.02-0.09) ng/mL 04/15/23 04/16/23 04/16/23 Range/Units 18:03 04:27 04:27 RBC 3.75 L (3.80-5.40) m/uL Hgb 11.2 L (11.4-16.0) gm/dL APTT 50.1 H (22.0-30.0) sec ABG pH (7.35-7.45) ABG pCO2 (35-45) mmHg ABG pO2 (83-108) mmHg ABG HCO3 (21-25) mmol/L ABG Total CO2 (19-24) mmol/L ABG O2 Saturation (94-97) % Chloride (98-107) mmol/L Carbon Dioxide (22-30) mmol/L BUN (7-17) mg/dL Glucose (74-99) mg/dL POC Glucose (mg/dL) 181 H (70-110) mg/dL Calcium (8.4-10.2) mg/dL Procalcitonin (0.02-0.09) ng/mL 04/16/23 04/16/23 Range/Units 04:27 06:27 RBC (3.80-5.40) m/uL Hgb (11.4-16.0) gm/dL APTT (22.0-30.0) sec ABG pH (7.35-7.45) ABG pCO2 (35-45) mmHg ABG pO2 (83-108) mmHg ABG HCO3 (21-25) mmol/L ABG Total CO2 (19-24) mmol/L ABG O2 Saturation (94-97) % Chloride 97 L (98-107) mmol/L Carbon Dioxide 40 H (22-30) mmol/L BUN 23 H (7-17) mg/dL Glucose 115 H (74-99) mg/dL POC Glucose (mg/dL) 173 H (70-110) mg/dL Calcium 8.3 L (8.4-10.2) mg/dL Procalcitonin (0.02-0.09) ng/mL Microbiology - Last 24 Hours (Table) 04/10/23 13:53 Blood Culture - Final Blood 04/08/23 09:00 Acid Fast Bacilli Smear - Preliminary Pleural Fluid Acid Fast Bacilli Culture - Preliminary 04/14/23 10:12 Blood Culture - Preliminary Blood - Imaging and Cardiology Chest x-ray: report reviewed, image reviewed Assessment and Plan Assessment: Moderate to poorly differentiated pulmonary adenocarcinoma with 13 hilar lymph nodes positive for metastatic carcinoma status post robotic-assisted thoracoscopic left upper lobectomy with mediastinal lymph node dissection Postoperative paroxysmal atrial fibrillation, currently showing sinus bra dycardia on bedside monitor Worsening right lung possibly from aspiration Left lower lobe atelectasis and mucous plugging with tracheobronchial malacia status post multiple bronchoscopies, status post basement of left Pleurx catheter Insulin dependent diabetes with poor glycemic control, hyperglycemia, A1c 8.8% Hypomagnesemia Current tobacco dependence with cessation prior to previous admission Moderate COPD, preoperative FEV1 54% of predicted, DLCO 36% of predicted Current daily EtOH use Hypertension Hyperlipidemia Stroke in 2016 with right-sided weakness Hepatitis B and C Bipolar depression History of IV heroin use with last use August 2018 Plan: Continue heparin drip per protocol. Wean oxygen as tolerated, encourage use of incentive spirometry 10 times every hour while awake. Continue Mucomyst, bronchodilators, and Pulmicort. Continue aggressive pulmonary toileting. Increase activity as tolerated. Out of bed for all meals. Will monitor daily labs and chest x-rays, final path and culture from pleural fluid negative, Sputum culture showing positive for Klebsiella pneumoniae and urine culture showing positive for Klebsiella pneumoniae and Escherichia coli. Infectious disease is following and she is currently on Zosyn for antibiotic coverage. GI/DVT prophylaxis. Diabetic management per internal medicine, patient needs tight blood sugar control. Continue Amiodarone, will taper weekly, continue IV heparin. Medical management of other comorbidities per primary care service, pulmonology. Guarded prognosis, family and patient's wishes yesterday to proceed with changing her CODE STATUS to a DO NOT RESUSCITATE. More recommendations to follow based on patient's clinical course. Time with Patient: Less than 30
--- NOTE | 2023-04-16 08:23 | XR ---
EXAMINATION TYPE: XR chest 1V portable DATE OF EXAM: 04/16/2023 COMPARISON: 04/15/2023 HISTORY: Chest tube placement TECHNIQUE: Single frontal view of the chest is obtained. FINDINGS: There is interval progression of consolidation with near-complete opacification left hemit horax. Right-sided consolidation and small effusion with diffuse interstitial pattern. Heart size sta ble. Osseous structures. IMPRESSION: 1. Interval marked progression of pleural fluid and consolidation in the left with near complete cons olidation now noted. 2. Correlate for CHF
[2023-04-16] MEDS: THIAMINE 100 MG TAB PO SCH (08:38)
[2023-04-16] MEDS: GABAPENTIN 400 MG CAP PO SCH (08:40)
[2023-04-16] MEDS: FUROSEMIDE 10 MG/ML 4 ML VIAL IV SCH (08:42)
[2023-04-16] MEDS: predniSONE 20 MG TAB PO SCH (08:42)
[2023-04-16] MEDS: FOLIC ACID 1 MG TAB PO SCH (08:42)
[2023-04-16] MEDS ORDERED: MAGNESIUM SULFATE-D5W PMX 1 GM in DEXTROSE/WATER 1 100ML.BAG IVPB ONE (08:42)
[2023-04-16] MEDS: PANTOPRAZOLE 40 MG TABLET PO SCH (08:42)
[2023-04-16] MEDS: SENNOSIDES 8.6 MG TAB PO SCH (08:42)
[2023-04-16] MEDS: HEPARIN SOD,PORK IN 0.45% NACL 25,000 UNIT in 0.45% NACL 1 250ML.BAG IV SCH (08:44)
[2023-04-16] MEDS: PIPERACILLIN-TAZOBACTAM 3.375 GM in SODIUM CHLORIDE 0.9% 100 ML IVPB SCH (08:45)
[2023-04-16] MEDS: CHLORHEXIDINE GLUCONATE 15 ML CUP MUCOUS MEM SCH (08:46)
[2023-04-16] MEDS: BUDESONIDE 1 MG/2 ML NEBU INHALATION SCH (09:34)
[2023-04-16] MEDS: IPRATROPIUM-ALBUTEROL 3 ML NEB INHALATION SCH ×3 (09:34→16:05)
[2023-04-16] MEDS: FORMOTEROL FUMARATE 20 MCG/2 ML NEBU INHALATION SCH (09:34)
--- NOTE | 2023-04-16 10:22 | P.PN ---
Subjective Progress Note Date: 04/16/23 Principal diagnosis: Reason for follow-up is fever/UTI and pneumonia Patient is a 57-year-old female with a past medical history significant for non-small cell lung cancer in this patient who is status post left upper lobe resection, presenting to the hospital March 29, 2023 for evaluation of increasing shortness of breath, patient got intubated because of her respiratory status however got extubated 04/15/2023 patient did have a fever probably this infectious disease evaluation. On today's evaluation that is 04/16/2023 patient remains to be afebrile, patient is breathing slightly comfortably currently on 12 L high flow nasal cannula oxygen, patient slightly more awake today denies any chest pain did have a cough no vomiting or diarrhea reported by the nursing staff Patient white count 7.6 creatinine 0.69 procalcitonin 0.74, sputum with Klebsiella urine with Klebsiella and E. coli Objective - Vital Signs Vital signs: Vital Signs Temp 98.1 F 04/16/23 08:00 Pulse 64 04/16/23 10:06 Resp 25 H 04/16/23 09:00 BP 183/75 04/16/23 09:00 Pulse Ox 90 L 04/16/23 09:36 FiO2 70 04/16/23 07:00 Intake & Output 04/15/23 04/16/23 04/16/23 18:59 06:59 18:59 Intake Total 864.873 345 610 Output Total 1595 515 250 Balance -730.127 -170 360 Weight 90 kg 90 kg Intake: IV 375 345 160 Lactated Ringers 1,000 ml 220 60 @ 20 mls/hr IV .Q24H [facility] Rx#:[id number] Piperacillin-Tazobactam 3 175 125 100 .375 gm In Sodium Chloride 0.9% 100 ml @ 25 mls/hr IVPB Q8HR [facility] Rx# :[id number] Sodium Chloride 0.9% 1, 200 000 ml @ 20 mls/hr IV . Q24H [facility] Rx#:[id number] Intake, IV Titration 369.873 450 Amount Heparin Sod,Pork in 0.45% 241.934 250 NaCl 25,000 unit In 0.45 % NaCl 1 250ml.bag @ 10. 07 UNITS/KG/HR 10 mls/hr IV .Q24H [facility] Rx#: [id number] Magnesium Sulfate-D5w Pmx 100 1 gm In Dextrose/Water 1 100ml.bag @ 100 mls/hr IVPB ONCE ONE Rx#: [id number] Potassium Chloride 10 meq 100 In Water For Injection 1 100ml.bag @ 100 mls/hr IVPB Q1H [facility] Rx#: [id number] propofoL 1,000 mg In 127.939 Empty Bag 1 bag @ 15 MCG/ KG/MIN 8.577 mls/hr IV . [id number] [facility] Rx#:[id number] Tube Feeding 90 Other 30 Output: Urine 1595 515 250 Other: Voiding Method Indwelling Catheter Indwelling Catheter - Exam GENERAL DESCRIPTION: Middle-aged female lying in bed in no distress RESPIRATORY SYSTEM: Unlabored breathing , coarse breath sounds bilaterally HEART: S1 S2 regular rate and rhythm , ABDOMEN: Soft , no tenderness EXTREMITIES: No edema feet - Labs CBC & Chem 7: 04/16/23 04:27 04/16/23 04:27 Labs: Abnormal Lab Results - Last 24 Hours (Table) 04/15/23 04/15/23 04/15/23 Range/Units 11:14 12:33 18:03 RBC (3.80-5.40) m/uL Hgb (11.4-16.0) gm/dL APTT (22.0-30.0) sec ABG pH 7.47 H (7.35-7.45) ABG pCO2 58 H (35-45) mmHg ABG pO2 82 L (83-108) mmHg ABG HCO3 42 H* (21-25) mmol/L ABG Total CO2 44 H (19-24) mmol/L ABG O2 Saturation 97.1 H (94-97) % Chloride (98-107) mmol/L Carbon Dioxide (22-30) mmol/L BUN (7-17) mg/dL Glucose (74-99) mg/dL POC Glucose (mg/dL) 249 H 181 H (70-110) mg/dL Calcium (8.4-10.2) mg/dL 04/16/23 04/16/23 04/16/23 Range/Units 04:27 04:27 04:27 RBC 3.75 L (3.80-5.40) m/uL Hgb 11.2 L (11.4-16.0) gm/dL APTT 50.1 H (22.0-30.0) sec ABG pH (7.35-7.45) ABG pCO2 (35-45) mmHg ABG pO2 (83-108) mmHg ABG HCO3 (21-25) mmol/L ABG Total CO2 (19-24) mmol/L ABG O2 Saturation (94-97) % Chloride 97 L (98-107) mmol/L Carbon Dioxide 40 H (22-30) mmol/L BUN 23 H (7-17) mg/dL Glucose 115 H (74-99) mg/dL POC Glucose (mg/dL) (70-110) mg/dL Calcium 8.3 L (8.4-10.2) mg/dL 04/16/23 Range/Units 06:27 RBC (3.80-5.40) m/uL Hgb (11.4-16.0) gm/dL APTT (22.0-30.0) sec ABG pH (7.35-7.45) ABG pCO2 (35-45) mmHg ABG pO2 (83-108) mmHg ABG HCO3 (21-25) mmol/L ABG Total CO2 (19-24) mmol/L ABG O2 Saturation (94-97) % Chloride (98-107) mmol/L Carbon Dioxide (22-30) mmol/L BUN (7-17) mg/dL Glucose (74-99) mg/dL POC Glucose (mg/dL) 173 H (70-110) mg/dL Calcium (8.4-10.2) mg/dL Microbiology - Last 24 Hours (Table) 04/10/23 13:53 Blood Culture - Final Blood 04/08/23 09:00 Acid Fast Bacilli Smear - Preliminary Pleural Fluid Acid Fast Bacilli Culture - Preliminary 04/14/23 10:12 Blood Culture - Preliminary Blood Assessment and Plan (1) Pneumonia Current Visit: Yes Status: Acute Code(s): J18.9 - PNEUMONIA, UNSPECIFIED ORGANISM SNOMED Code(s): 445973659 (2) UTI (urinary tract infection) Current Visit: Yes Status: Acute Code(s): N39.0 - URINARY TRACT INFECTION, SITE NOT SPECIFIED SNOMED Code(s): 34078885 Plan: 1patient with a fever in this patient did have a history of non-small cell lung cancer the patient did have multiple bronchoscopy during this admission with mucous plugging and the patient did have a Pleurx catheter placement with a recent sputum culture grew Klebsiella, and urine grew Klebsiella and E. coli, source of the fever could be related to either lung or urinary source as currently no evidence of any peripheral IV site cellulitis abdominal soft clinical examination and there is no evidence of any extremity cellulitis no joint swelling and the patient tested negative for RSV COVID and influenza 2-patient did have resolution of her fever and white count is normal, patient to continue with Zosyn and monitor clinical course closely Dictation was produced using [employer] dictation software. please excuse any gramm atical, word or spelling errors. Time with Patient: Less than 30
[2023-04-16 10:30] VITALS: BMI 33.0
[2023-04-16] MEDS ORDERED: MIDAZOLAM 1 MG/ML 5 ML VIAL IV STA (10:34)
[2023-04-16] MEDS: SODIUM CHLORIDE 0.9% 1,000 ML IV SCH (11:39)
[2023-04-16] MEDS: AMIODARONE 200 MG TAB PO SCH (11:40)
[2023-04-16] MEDS: ATORVASTATIN 10 MG TAB PO SCH (11:40)
[2023-04-16] MEDS ORDERED: AMIODARONE 450 MG in DEXTROSE 5% IN WATER 250 ML IV SCH ×2 (12:00)
[2023-04-16 12:24] LABS: Glucose,Whole Blood 265 mg/dL (70-110)
[2023-04-16 12:32] VITALS: TEMP 98.3
--- NOTE | 2023-04-16 12:50 | XR ---
EXAMINATION TYPE: XR chest 1V portable DATE OF EXAM: 04/16/2023 Comparison: 04/16/2023 Clinical History: 57-year-old female s/p bronchoscopy Findings: Ongoing interstitial changes and small right pleural effusion. Moderate left pleural effusion has dec reased from earlier today with some improved aeration at the left upper and midlung. Postsurgical vol ume loss remains on the left. Left-sided pleural catheter remains in place. No appreciable pneumothor ax. Impression: 1. Postsurgical changes left hemithorax. A moderate left pleural effusion remains, decreased from ear lier today. Left basilar pleural catheter is redemonstrated. 2. Ongoing interstitial densities on the right with small pleural effusion and adjacent atelectasis a nd or consolidation.
--- NOTE | 2023-04-16 13:34 | P.PN ---
Subjective Progress Note Date: 04/16/23 04/12/2023, the patient is being seen for a follow-up. Note that the patient had a very complicated postoperative course following resection of a left upper lobe adenocarcinoma. The patient was noted to have adenocarcinoma of the left upper lobe and the patient underwent a robotic assisted thoracoscopic left upper lobe lobectomy along with mediastinal lymph node dissection. The patient was found to have T1b N1 M0 disease. Postoperative course was complicated by recurrent atelectasis of the left lower lobe which was attributed to pneumonia, mucous plugs, COPD and severe tracheobronchomalacia. The patient required multiple bronchoscopies with some partial reexpansion of the left lung. The patient was also covered with a broad-spectrum antibiotics. She is known to have COPD, tracheobronchomalacia, hypertension, hyperlipidemia and previous history of CVA back in 2016 that the resultant right-sided weakness. The patient also has hepatitis B, hepatitis C, bipolar disorder and history of depression. She has previous history of IV heroin use and her last usage was in August 2018. She was briefly discharged home to be readmitted for worsening shortness of breath. She ultimately went into respiratory failure during the second hospitalization and for now, the patient remains intubated and mechanically ventilated. On today's evaluation, the patient is on propofol and the patient is also on assist-control mode of mechanical ventilation with a rate of 20, tidal volume of 350, FiO2 of 5 0% with a PEEP of 10. Propofol is running at 50 mcg/kg/min. Chest x-ray shows evidence of a left upper lobe lobectomy, moderate left-sided pleural effusion along with a small right-sided pleural effusion. ET tube is in a good location. NG tube also in good location. The blood gas from this morning shows a pH of 7.53 with a pCO2 of 52 and pO2 of 61. She is currently in normal sinus rhythm. She remains on IV heparin. In terms of cultures, most of the bronchial cultures came back negative with exception of a lavage that was obtained back in 03/23/2023 that showed haemophilus influenza. The patient is currently not on DuoNeb updrafts, Mucomyst, in addition to a combination of budesonide and Pulmicort. She is not receiving any antibiotics for now. She remains on IV Solu-Medrol 30 mg every 24 hours. SHe was having atrial fibrillation and she is back to sinus, she remains on IV heparin, amiodarone 200 mg p.o. daily and Cardizem dripn is off . The patient is also on Levemir insulin 8 units twice daily and NovoLog sliding scale coverage. She is afebrile. She remains of antibiotics for now. She is receiving enteral feeding for nutritional support. The patient is receiving vital high-protein at the rate of 29 mL an hour. IV fluids are in the form of 0.9 at 20 mL an hour. Sodium is at 140, potassium 3.5, bicarbonate 36, BUN is at 26 and a creatinine of 0.6. Nevertheless, 7.7, hemoglobin was at 10.7 and a platelet count is at 161. She is on no pressors. On 04/13/2023, the patient is being seen for a follow-up. The patient remains intubated on a mechanical ventilator. She remains sedated on propofol which is running at 50 mcg/kg/m and the patient is adequately sedated. She remains on a mechanical ventilator on assist control mode at the rate of 20, tidal volumes of 350, FiO2 50% with a PEEP of 10. Current pulse ox is 95%. The blood gas from today shows a pH of 7.5 with a pCO2 of 55 and pO2 of 78. The chest x-ray shows complete opacification of the left lung. This is related to a combination of atelectasis, consolidation and possibly a small left-sided pleural effusion. Most recent bronchoscopy that was done on 04/11/2022 is yielding gram-negative bacillus and the patient will be covered with broad-spectrum antibiotics. Suggest IV meropenem. Clinically stable. Hemodynamically stable. Cardiac rhythm is A. fib with a controlled rate. The patient remains on IV heparin. The patient is off Cardizem. For the time being. Also, her white cell count is at 7.5, hemoglobin is at 10.9 with a platelet count of 156. Sodium level is at 136, potassium levels at 3.4, serum bicarb is at 35 with a BUN of 22 and a creatinine of 0.6. The patient is on enteral feeding for nutritional support and she is receiving vital high-protein at the rate of 22 mL an hour. The patient is on bronchodilators. The patient is oral prednisone at a dose of 20 mg by mouth daily as part of her breast taper. She is on Lasix 40 mg IV every 8 hours and her fluids balance is -1.7 L over the past 24 hours. She has been on Levemir insulin for blood sugar control and the patient is receiving 8 units twice a day along with a sliding scale coverage. In terms of her A. fib, she is on IV heparin and she is also on amiodarone 200 mg by mouth twice a day. Cardizem drip is off. Rate is adequately controlled at this point. No fever. 04/14/2023, I'm seeing the patient for a follow-up. He remains intubated on a mechanical ventilator. Remains on propofol at 50 g and she is calm and comfortable. No major change in her condition. Of significance is development of the fever with temperature of 102 and the patient had another sample of respiratory culture that came back positive for Klebsiella. I have cover this patient with IV meropenem. Cultures were also sent. The plan was to proceed with a tracheostomy tube and a Pleurx catheter insertion. I'm not sure the family has given consent for both procedures. The left lung remains completely opacified. The cardiothoracic surgery is intending to do another bronchoscopy today as the patient is complete collapse of the left lung. Remains on a mechanical ventilator on assist control mode with a rate of 20, tidal volume of 50, FiO2 of 50% with a PEEP of 10. Blood gas from today shows a pH of 7.52 with a pCO2 of 54 and pO2 of 68. The patient is having limited distally secretions. She is on no pressors at this point in time. She is maintaining her own blood pressure. The white suppositive 9.6. Hemoglobin 10.6. Electrolytes are still pending from today and the yesterday's electrolytes and renal function was within normal limits pH is still receiving enteral feeding for nutritional sup port. She remains on IV Lasix. Fluid balance is -407 mL over the past 24 hours. IV fluids are in the form of lactated Ringer at the rate of 20 mL an hour. Cardiac rhythm is sinus as the patient is currently on amiodarone 200 mg daily and she is also on IV heparin. Prednisone is currently at a dose of 20 mg by mouth daily. 2023, I'm seeing the patient for a follow-up. This morning, she is on a 30 g of propofol she is arousable and she is following some simple commands. A Pleurx catheter was inserted yesterday and there is adequate expansion of the left lung. No follow-up chest x-ray from today shows improved aeration of the left lung. No signs of any pneumothorax. No evidence of any air leak. Total amount of output is 180 mL since yesterday. The patient remains on a mechanical ventilator. She is on assist-control mode at a rate of 20, tidal volume of 350, FiO2 of 50% and a PEEP is down to 5. Patient was at 7.5 with a pCO2 of 56 and pO2 of 73 4. Most recent microbial cultures yielded Klebsiella and E. coli. I'm considering giving this patient a spontaneous breathing trial in anticipation for possible extubation. I would give her another bronchoscopy to remove any residual secretions prior extubation however. Note that she has severe tracheal bronchomalacia and she has copious amount of respiratory secretions. Currently she is on IV meropenem. She is afebrile. The white cell count at 6.9. He was at 9.8. Sodium is at 135, BUN is at 26 with a creatinine of 0.6. She is still receiving enteral feeding for nutritional support with vital high-protein and this will be placed on hold. The cardiac rhythm is sinus. She is hemodynamically stable. She is on no pressors at this point in time. She remains on bronchodilators with DuoNeb. She is also on IV heparin regarding her paroxysmal atrial fibrillation. She is on prednisone as part of the burst taper and currently is on 20 mg by mouth daily. No other significant events overnight. Obvious improvement in the aeration of the left lung base on today's chest x-ray finding. Obvious improvement in oxygenation. On 04/16/2023, patient is being seen for a follow-up. Unfortunately, she remains quite weak and debilitated and the patient is urinating a weak cough. At the same time, she remains extubated and she is currently on 11 L of oxygen by nasal cannula. She was briefly placed on BiPAP for a few hours yesterday and currently the patient is off the BiPAP. At the same time, she is having episodes of atrial fibrillation. She remains on amiodarone at home and a gram per minute for rate control and the patient is also on IV heparin. The patient is receiving Lasix for the grams IV every 24 hours. The fluid balance is -900 mL over the past 24 hours. The left-sided Pleurx catheter in place and the patient is producing only 80 mL over the past 12 hours. Meanwhile, repeat chest x-ray was done that showed complete the prescription of the left lung. There is also some interstitial infiltrates involving the right lung base and some infiltration of the right lower lobe. The patient accordingly had another bronchoscopy. Some limited distally secretions identified and the left mainstem bronchus and this was suctioned out easily. Patency to the left lung lower lobe was achieved. The repeat chest x-ray showed some improved aeration left lung compared to the earlier chest x-ray from today. The patient remains on IV Zosyn. The white cell cause of 7.6, hemoglobin 11.2, bicarb is at 40, BUN is at 23 with a creatinine of 0.6 and a sodium level is at 140. Objective - Vital Signs Vital signs: Vital Signs Temp 99.5 F 04/16/23 05:00 Pulse 65 04/16/23 07:00 Resp 32 H 04/16/23 07:00 BP 131/89 04/16/23 07:00 Pulse Ox 94 L 04/16/23 07:00 FiO2 70 04/16/23 07:00 Intake & Output 04/15/23 04/16/23 04/16/23 18:59 06:59 18:59 Intake Total 864.873 345 270 Output Total 1595 515 Balance -730.127 -170 270 Weight 90 kg Intake: IV 375 345 20 Lactated Ringers 1,000 ml 220 20 @ 20 mls/hr IV .Q24H [facility] Rx#:[id number] Piperacillin-Tazobactam 3 175 125 .375 gm In Sodium Chloride 0.9% 100 ml @ 25 mls/hr IVPB Q8HR [facility] Rx# :[id number] Sodium Chloride 0.9% 1, 200 000 ml @ 20 mls/hr IV . Q24H [facility] Rx#:[id number] Intake, IV Titration 369.873 250 Amount Heparin Sod,Pork in 0.45% 241.934 250 NaCl 25,000 unit In 0.45 % NaCl 1 250ml.bag @ 10. 07 UNITS/KG/HR 10 mls/hr IV .Q24H [facility] Rx#: [id number] propofoL 1,000 mg In 127.939 Empty Bag 1 bag @ 15 MCG/ KG/MIN 8.577 mls/hr IV . [id number] [facility] Rx#:[id number] Tube Feeding 90 Other 30 Output: Urine 1595 515 Other: Voiding Method Indwelling Catheter Indwelling Catheter - Exam CONSTITUTIONAL: Patient is currently on 11 L of oxygen by nasal cannula, awake, quite debilitated and weak. Unable to generate an adequate cough. Head exam was generally normal. There was no scleral icterus or corneal arcus. Mucous membranes were moist. Neck was supple and without jugular venous distension, thyromegaly, or carotid bruits. Carotids were easily palpable bilaterally. There was no adenopathy. RESPIRATORY: Lungs sounds diminished in the left lung base. Scattered rhonchi heard throughout the lung base bilaterally. The Pleurx catheter is on the left and there is no evidence of air leak. Total amount of output has been 80 mL over the past 12 hours. CARDIOVASCULAR: S1, S2 is irregular consistent with atrial fibrillation. GASTROINTESTINAL: Abdomen soft, nontender, nondistended. Active bowel sounds present 4 quadrants. GENITOURINARY: Cameron catheter present draining clear yellow urine, INTEGUMENTARY: Skin is warm and dry NEUROLOGIC: Currently is awake and alert. Occasional confusion is present. Neurologic exam is nonfocal. - Labs CBC & Chem 7: 04/16/23 04:27 04/16/23 04:27 Labs: Abnormal Lab Results - Last 24 Hours (Table) 04/15/23 04/15/23 04/15/23 Range/Units 04:03 11:14 12:33 RBC (3.80-5.40) m/uL Hgb (11.4-16.0) gm/dL APTT (22.0-30.0) sec ABG pH 7.47 H (7.35-7.45) ABG pCO2 58 H (35-45) mmHg ABG pO2 82 L (83-108) mmHg ABG HCO3 42 H* (21-25) mmol/L ABG Total CO2 44 H (19-24) mmol/L ABG O2 Saturation 97.1 H (94-97) % Chloride (98-107) mmol/L Carbon Dioxide (22-30) mmol/L BUN (7-17) mg/dL Glucose (74-99) mg/dL POC Glucose (mg/dL) 249 H (70-110) mg/dL Calcium (8.4-10.2) mg/dL Procalcitonin 0.74 H (0.02-0.09) ng/mL 04/15/23 04/16/23 04/16/23 Range/Units 18:03 04:27 04:27 RBC 3.75 L (3.80-5.40) m/uL Hgb 11.2 L (11.4-16.0) gm/dL APTT 50.1 H (22.0-30.0) sec ABG pH (7.35-7.45) ABG pCO2 (35-45) mmHg ABG pO2 (83-108) mmHg ABG HCO3 (21-25) mmol/L ABG Total CO2 (19-24) mmol/L ABG O2 Saturation (94-97) % Chloride (98-107) mmol/L Carbon Dioxide (22-30) mmol/L BUN (7-17) mg/dL Glucose (74-99) mg/dL POC Glucose (mg/dL) 181 H (70-110) mg/dL Calcium (8.4-10.2) mg/dL Procalcitonin (0.02-0.09) ng/mL 04/16/23 04/16/23 Range/Units 04:27 06:27 RBC (3.80-5.40) m/uL Hgb (11.4-16.0) gm/dL APTT (22.0-30.0) sec ABG pH (7.35-7.45) ABG pCO2 (35-45) mmHg ABG pO2 (83-108) mmHg ABG HCO3 (21-25) mmol/L ABG Total CO2 (19-24) mmol/L ABG O2 Saturation (94-97) % Chloride 97 L (98-107) mmol/L Carbon Dioxide 40 H (22-30) mmol/L BUN 23 H (7-17) mg/dL Glucose 115 H (74-99) mg/dL POC Glucose (mg/dL) 173 H (70-110) mg/dL Calcium 8.3 L (8.4-10.2) mg/dL Procalcitonin (0.02-0.09) ng/mL Microbiology - Last 24 Hours (Table) 04/10/23 13:53 Blood Culture - Final Blood 04/08/23 09:00 Acid Fast Bacilli Smear - Preliminary Pleural Fluid Acid Fast Bacilli Culture - Preliminary 04/14/23 10:12 Blood Culture - Preliminary Blood Assessment and Plan Plan: Acute on chronic shortness of breath without any worsening in her hypoxemia. The patient's shortness of breath is multifactorial. The patient is post op for a left upper lobe resection. She has also complete atelectasis of left lower lobe and several attempts to reexpand the lung on the left has failed as the patient has significant tracheal bronchomalacia, mucus, Haemophilus influenza pn eumonia initially on 03/23/2023. Subsequently, the patient was found to have a Klebsiella in the left lower lobe. The patient was covered with IV Zosyn. Another bronchoscopy was on this morning with some improvement elevation post bronchoscopy based on the chest x-ray findings. Patient was extubated on 04/15/2023 patient is currently on 11 L of oxygen by nasal cannula. Fever, likely secondary to an underlying pneumonia, currently afebrile Complete opacification of the left lung/left lower lobe, combination of consolidation/pneumonia/pleural effusion, improved with mechanical ventilation, requiring multiple bronchoscopies, antibiotics and the Pleurx catheter insertion on the left. Last bronchoscopy was done on 04/15/2023 Pulmonary adenocarcinoma with a 1.5 cm mass in the left upper lobe. Surgery was done on and the patient has a final pathologic staging is T1b N1 M0 disease. Left lung collapse, essentially the left lower lobe secondary to mucous plugs. Bronchoscopy was done during the early hospitalization the patient was found to have mucous plugs, significant tracheal bronchomalacia, narrowing of the left lower lobe bronchial orifice. There is only a small left-sided pleural effusion and the left lung base. Output from the Pleurx catheter is minimal at this point in time. left-sided pleural effusion, almost Pleurx catheter insertion on 04/14/2023 Tracheobronchomalacia, severe New-onset atrial fibrillation with rapid ventricular response, started on 05/23/2022. The patient continued to have episodes of PAF and currently she is presenting with the same. She is in sinus History of chronic obstructive pulmonary disease. History of CVA. History of diabetes mellitus. History of hypertension. History of hyperlipidemia. History of alcohol abuse and heroin abuse. History of hepatitis B and C. Plan Titrate oxygen flow to maintain a saturation above 90% currently on 11 L Chest PT Continue IV Zosyn Repeat bronchoscopy was done Daily chest x-rays Cardiac rhythm is sinus this morning although the patient continues to have episodes of A. fib patient remains on IV heparin and amiodarone Pleurx catheter inserted Change the Lasix to 40 mg every 24 hours , this will be increased to twice a day IV fluids to KVO May need a Dobbhoff 4 enteral feeding and nutritional support Condition is critical and will continue to follow Continue supportive care Critical care evaluation was done in more than 30 minutes Time with Patient: Greater than 30
--- NOTE | 2023-04-16 13:37 | P.PCN ---
Date of Procedure: 04/16/23 Operative Findings: Preoperative Diagnosis: Left lower lobe atelectasis Postoperative Diagnosis: Rest or secretions obstructing the left mainstem and left lower lobe bronchus. Normal left upper lobe stump Procedure(s) Performed: Flexible bronchoscopy Anesthesia: MAC Surgeon: Michelle Lucia Pathology: none sent Condition: critical Disposition: ICU Operative Findings: This is a flexible bronchoscopy. This was done in intensive care unit. The patient was on 10 L of oxygen nasal cannula. The patient was given a total of 2 mg of IV Versed The flexible bronchoscope was easily passed through the orotracheal tube and was advanced into the lower trachea. The distal trachea was within normal limits. Jeni was in the midline and symmetrical. The right mainstem bronchus, right upper lobe bronchus, bronchus intermedius, right middle lobe bronchus and the right lower lobe bronchus were all patent without any rest or secretions. Various 10 segments on the right were within normal limits. Examination of left showed secretions pouring in the left mainstem bronchus and left lower lobe bronchus. Therapeutic airway suctioning was done and thick mucous plugs were aspirated. Airway patency was achieved. The patient has obvious trach bronchomalacia. The patient has a patent left lower lobe bronchus at the completion of the procedure. Left upper lobe stump was within normal limits.. There is ongoing issues with tracheobronchomalacia. Follow-up chest x-ray shows improvement elevation of the left lung.
[2023-04-16] MEDS ORDERED: LORazepam 2 MG/ML INJ IV PRN (13:48)
[2023-04-16] MEDS ORDERED: ATROPINE OPHTH SOLN 1% 5ML BTL SUBLINGUAL PRN (13:48)
[2023-04-16] MEDS ORDERED: MORPHINE SULFATE (100 MG/2 ML) 100 MG in SODIUM CHLORIDE 0.9% 100 ML IV SCH (14:00)
[2023-04-16] MEDS ORDERED: SCOPOLAMINE 1 MG/72 HR PATCH TRANSDERM SCH (14:00)
--- NOTE | 2023-04-16 14:45 | P.PN ---
Subjective Progress Note Date: 04/16/23 Patient is a 57-year-old female with a past medical history of hypertension, hyperlipidemia, diabetes type 2, history of CVA/TIA with right-sided weakness, recent history of lung cancer, left upper lobectomy in February 2023, bipolar/depression and currently everyday smoker presents to ER with complaints of difficulty in breathing and chest pain. Patient was recently discharged from the hospital on 03/27/2023. Does have a history of non-small cell lung cancer underwent left upper lobectomy complicated by persistent left lower lobe atelectasis requiring multiple bronchoscopies during recent hospitalization. Valve cultures from 07/22/2022 showed haemophilus influenza. Patient was discharged home on Augmentin. On admission chest x-ray showed similar opacification of the left lung likely secondary to atelectasis and large pleural effusion. No pneumothorax visualized. Small right effusion. EKG showed atrial fibrillation with rapid ventricular response with heart rate 117. Patient is currently not on any anticoagulation. Continued on amiodarone. Laboratory data showed WBC 7.7 hemoglobin 11.9 and platelets 186 ABG showed pH 7.41 pCO2 49 and pO2 105 Sodium 136 potassium 4.5 chloride 99 bicarb is 30 BUN 12 and creatinine 0.47 blood sugar 257 and lactic acid 1.7 and calcium 7.9 ESR not elevated. Troponin x 1 negative and proBNP 3090. Influenza A, B, RSV and COVID-19 PCR not detected. Lung resection on 03/15/2023 with final pathology showing moderate to poorly differentiated pulmonary adenocarcinoma. All margins negative for malignancy. 1 of 3 hilar lymph nodes positive for metastatic carcinoma. 03/30/2023 Patient is seen in follow up today with pulmonary following as well as cardiology and adjustments to medications being done. Home medications reviewed and resumed. CT surgery consulted and discussing with surgery about complete lobectomy of the left. Patient continues with pleural effusions noted and has been started on IV lasix 20mg bid and will continue. Labs reviewed and within normal limits. Will follow up on repeat labs and monitor electrolytes and kidney functions closely. Patient is currently afebrile and denies worsening shortness of breath. Patient is continued on 4L and was sent home on this previously last week. Blood sugars elevated and will continue accuchecks achs and adjust medications accordingly. 03/31/2023 Patient seen and evaluated in follow-up today with pulmonary along with cardiothoracic surgery following. Discussing further about possible complete lobectomy of the left with cardiothoracic. Patient per nursing staff is lethargic and has been receiving scheduled Xanax along with Neurontin and pain medications and will decrease the dose of Xanax admitted as needed as well as decreasing the dose of Neurontin. Patient encouraged to increase activity as tolerated and get up more frequently out of the bed and sit up in the chair and work with physical therapy daily. Blood sugars remained elevated and will adjust and make long acting twice daily and continue with sliding scale. Patient continues on 2-3 L via nasal cannula and weaning FiO2 as tolerated. Patient is currently afebrile denies chest pain or palpitations and denies worsening shortness of breath. Patient continues to use incentive spirometer and needs encouragement to do so. Patient is receiving breathing inhalational treatments as well. 04/01/2023 Patient is seen in follow-up today scheduled to undergo bronchoscopy with pulmonary and cardiothoracic surgery following closely. Chest x-ray ordered for post bronchoscopy which is pending. Patient's blood sugars slightly improved and have added long-acting twice daily along with sliding scale. Encouraged increase activity as tolerated. Patient to be evaluated by physical therapy and would recommend daily. Patient also with incentive spirometer at the bedside encouraged to use at least 10 times every hour while awake. Patient reports not feeling she is having worsening shortness of breath although continues to have shortness of breath. 04/02/2023 Patient seen in follow-up this morning currently nothing by mouth and scheduled to undergo repeat bronchoscopy as follow-up chest x-ray showed near complete opacification on the left as well status post bronchoscopy yesterday. Patient is lethargic but arousable and will adjust the medications again and will discontinue Xanax. Patient worked with physical therapy this patient is significantly weak and has had multiple prolonged hospitalizations would likely be going to [facility] on discharge. Will await clearance from CT surgery pulmonary to discuss discharge planning. Patient is afebrile with no reports of worsening shortness of breath. Patient tolerating diet although given patient's lethargy will recommend aspiration precautions. 04/03/2023 Patient is evaluated today sitting up in the chair, currently wearing BiPAP. Patient underwent bronchoscopy today with Dr. Oshea pending surgical report. Chest xray reveals extensive pleural parenchymal opacity left hemithorax some interval improvement of the aeration of the left lung. Worsening small - to moderate right pleural effusion with adjacent atelectasis and or consolidation. Patient continues on IV lasix 20 mg IV Q12h. Magnesium today 1.5. 04/04/2023 Patient evaluated today sitting up in the chair. Currently on nasal cannula wanting to try and eat breakfast. She is tachypneic using accessory muscles to take a deep breath. She has minimal aeration over the left lung with chest xray today showing near complete white out of the left hemithorax, aeration worsening from yesterday. A small portion of the left upper lung remains aerated now. Ongoing small to moderate left pleural effusion adjacent atelectasis and or consolidation. Patient underwent bronchoscopy again this morning due to the mucus plugging of the left mainstem bronchus. Patient had thick yellow sputum s uctioned from the left main bronchus. Continues on IV lasix 20 mg Q12h, and additionally, has been started on IV steroids toda by pulmonary team. proBNP 2910. Sodium 135, potassium 4.6, BUN 13, creatinine 0.55, magnesium 1.8, glucose 228. 04/05/2023 Patient is seen in follow-up today currently awaiting to undergo bronchoscopy again with cardiothoracic surgery on 04/06/2023. Chest x-ray continues to show near complete opacification on the left. Patient continues with ongoing bilateral pleural effusions and is maintained on IV Lasix. Patient started on IV steroids with pulmonary following closely and blood sugars are completely uncontrolled in the 500s. Will initiate insulin drip and continue with protocol and Accu-Cheks every hour and tighter glycemic control. Patient will be nothing by mouth at midnight again for bronchoscopy and will await report. Will discuss further with CT surgery regarding overall treatment plan. Patient with significant weakness recommend physical therapy daily. Patient needs Encouraged increased activity as tolerated as patient has been mostly sitting and sleeping throughout most of hospitalization. 04/06/2023 Patient is seen in follow-up today currently sitting up in the chair awaiting to undergo repeat bronchoscopy with CT surgery today. Patient continues on 4-5 L via nasal cannula reporting continued shortness of breath. Patient's blood sugars are more controlled and patient is maintained on insulin drip and was currently nothing by mouth for the procedure. Will await surgical report and continue insulin drip for now with close monitoring to monitor for any episodes of hypoglycemia. Patient is afebrile denies chest pain or palpitations. 04/07/2023 Patient is seen and evaluated in follow-up currently in the ICU as of yesterday post bronchoscopy this patient had some increased respiratory distress requiring mechanical ventilation and is currently maintained on FiO2 of 60% with a PEEP of 8. Plan is for repeat bronchoscopy today with pulmonary and tentatively scheduled for repeat bronchoscopies on and Wednesday. Patient remains on insulin drip and blood sugars are more controlled and patient is being started on tube feedings and will adjust the medications and continue sliding scale and add long-acting if needed. Patient is a poorly controlled diabetic with hyperglycemia. Patient is currently afebrile showing A. fib on the monitor. Patient does have history of atrial fibrillation and cardiology has been consulted. Prognosis remains extremely guarded at this time. 04/08/2023 Patient is seen in follow-up today remains in the ICU on mechanical ventilation. Follow-up chest x-ray continues to show complete opacification medication on the left and scheduled for bronchoscopy again today. Patient to also undergo left side thoracentesis. Patient is afebrile and current settings on the vent are FI02 of 60% and peep is 10. Patient prognosis is extremely guarded. 04/09/2023 Patient seen and evaluated in follow-up continues to be in the ICU mechanical ventilation. FiO2 is 100% and PEEP has been increased to 10. Plan is for repeat bronchoscopy with pulmonary powerhouse operator today. Patient has been having daily bronchoscopies for continued mucus plugging. Patient's chest x-rays continue to show left hemithorax and complete opacification. Patient is currently afebrile. Patient maintained on tube feeds and recommend monitoring residuals. Per nursing staff there were some residual noted and patient reported not to have a bowel movement in the last few days. Continue bowel regimen and monitoring of residuals with aspiration precautions. Overall prognosis remains extremely guarded at this time. Blood sugars are becoming slightly more elevated and have added long-acting twice daily and will adjust accordingly. 04/12/2023 Patient was seen and evaluated in follow-up this morning continues to be in the ICU on mechanical ventilation. FiO2 is 50% with a PEEP of 10. Failed weaning trials today. Patietn being followed by multiple medical consultations with plans of possible chest tube insertion with CT surgery. Follow up chest xray continues to show pleural effusions and opacities on the left. Patient is being followed by cardiology and currently off the cardizem drip. Afebrile and tolerating tube feeds. Repeat sputum and urine cultures pending. 04/13/2023 Patient is seen in follow-up continues on mechanical ventilation with difficulty in weaning FiO2 is 50% and PEEP is 5. Multiple medical consultations following including CT surgery with discussion being have a family at the bedside about possible repeat bronchoscopy and possible tracheostomy on 04/14/2023. Patient repeat preliminary urine showing Klebsiella as well as E. coli and patient is being started on meropenem. Patient is currently afebrile and maintained on sedation. Prognosis continues to remain guarded at this time. 04/14/2023 Patient is seen in follow-up today with multiple medical consultations following. CT surgery with plans of repeat bronchoscopy and possible chest tube placement today. Patient having low grade temps and repeat urine and sputum culture with klebsiella and ecoli on Merrem. Patient is having low grade temps and will consult ID and appreciate input and recommendations. Patient tolerating tube feeds and will continue to monitor for residuals. Tube feed on hold for procedure. Continue current regimen with blood sugars and titrate as needed. 04/15/2023 Patient is seen in follow-up today continues to be in the ICU plans for repeat bronchoscopy today with pulmonary. Patient is continued on mechanical ventilation and just extubated 15 minutes prior to exam and currently maintained on BiPAP. Patient sounds extremely rhonchorous congested and appears to be slightly confused and lethargic still. High risk for reintubation. CODE STATUS was addressed with family members present and patient and no further wishes for intubation if requiring. Patient has been having low-grade temps and maintained on antibiotics with infectious disease following. Patient reporting some pain and will add low-dose medications. Await improvement of respiratory status to initiate oral intake. Continue to monitor Accu-Cheks before meals and at bedtime with current regimen. 04/16/2023 Patient is seen in follow-up this morning scheduled to undergo repeat bronchoscopy with pulmonary today. Patient is continued on BiPAP with intermittent use of nasal cannula high flow still having significant shortness of breath and significantly weak. Patient and family had discussion about CODE STATUS and did not want to be on intubation again. Per nursing staff patient and family have decided on comfort measures and a comfort care order was placed by pulmonary powerhouse operator. Patient is being started on morphine drip. Patient is currently afebrile maintained on antibiotics as urine cultures and sputum cultures were showing Klebsiella with E. coli. Chest x-ray today showing opac ification on the left as well again and patient continues with chest tube. Patient with overall extremely poor prognosis is appropriate for hospice with comfort care measures. Review of systems: Constitutional: reports of fatigue, no fever, or chills Cardiovascular: No reports of chest pain or palpitations Respiratory: reports of shortness of breath and weak cough GI: No reports of nausea, vomiting, or diarrhea, no appetite and not eating : No reports of dysuria or retention Neurovascular: reports of generalized weakness All medications have been reviewed PHYSICAL EXAMINATION: Patient is a 57-year-old female is currently on BiPAP and slightly lethargic although arousing Well-developed, well-nourished. Elderly-appearing. obese HEENT: Normocephalic. Neck is supple. Pupils reactive. Nostrils clear. Oral cavity is moist. Neck reveals no JVD, carotid bruits, or thyromegaly. CHEST EXAMINATION: Trachea is central. Symmetrical expansion . Left basilar diminished sounds. Coarse rhonchi and some crackles noted. CARDIAC: S1, S2 muffled, irregular ABDOMEN: Soft. Bowel sounds present. Nontender. No organomegaly. No abdominal bruits. Extremities: Lower extremity trace edema. No clubbing or cyanosis Neurologically sedated on mechanical ventilation at this time Skin: No rash or skin lesions. Musculoskeletal: No joint swelling or deformity. Assessment: Worsening shortness of breath secondary to persistent left lower lobe atelectasis/collapse despite multiple bronchoscopies during recent admission and Pleural effusion. Patient is status post multiple bronchoscopies with repeat done this morning and patient was extubated and currently on high flow oxygen nasal cannula. Weaning FiO2 as tolerated. Patient is scheduled to undergo repeat bronchoscopy today Haemophilus influenza pneumonia. Recent BAL culture showed haemophilus. Repeat sputum and urine cultures were taken and showing Klebsiella along with E. coli with sensitivities and patient is continued on Merrem. Patient is having temps and infectious disease following Paroxysmal atrial fibrillation with rapid ventricular rate. Patient has new onset A-fib on 03/21/2023. Continued on amiodarone. Not on anticoagulation. Patient is off the Cardizem drip and currently rate controlled and cardiology remains to be following Pulmonary adenocarcinoma with recent left upper lobe resection on 03/15/2023 Acute on chronic hypoxic respiratory failure. Patient was at 2 L during recent discharge. Severe tracheal bronchomalacia COPD History of CVA with right-sided weakness Diabetes type 2, uncontrolled with hyperglycemia Hypertension Hyperlipidemia History of hepatitis B&C History of alcohol abuse and hides abuse Anxiety/depression and PTSD/bipolar. Currently everyday smoker, reports to quitting on last admission obesity with a bmi of 32.7 GI and DVT prophylaxis No code Plan: Patient had multiple bronchoscopy this admission and currently in the ICU and has just been extubated on 04/15/2023 and currently on intermittent BiPAP use as well as high flow nasal cannula weaning FiO2 as tolerated. CODE STATUS was addressed with family and patient and patient wishes to be no code and no further intubation. This was addressed again and this is patient wishes and family along with patient has opted for comfort care measures. Pulmonary powerhouse operator following placed comfort care order and patient is being started on morphine drip Due to multiple complex medical issues, overall prognosis is extremely poor and guarded at this time. We'll continue comfort care and again patient has been placed on morphine drip. The impression and plan of care has been dictated by Rahel Crabtree, Nurse Practitioner as directed. Dr. Gay MD I have performed a history and examination and MDM of this patient, discussed the same with the dictator, and agree with the dictator's assessment and plan as written ,documented as a scribe. Based on total visit time, I have performed more than 50% of the visit. Objective - Vital Signs Vital signs: Vital Signs Temp 98.1 F 04/16/23 08:00 Pulse 112 H 04/16/23 09:00 Resp 25 H 04/16/23 09:00 BP 183/75 04/16/23 09:00 Pulse Ox 94 L 04/16/23 07:00 FiO2 70 04/16/23 07:00 Intake & Output 04/15/23 04/16/23 04/16/23 18:59 06:59 18:59 Intake Total 864.873 345 610 Output Total 1595 515 250 Balance -730.127 -170 360 Weight 90 kg Intake: IV 375 345 160 Lactated Ringers 1,000 ml 220 60 @ 20 mls/hr IV .Q24H [facility] Rx#:[id number] Piperacillin-Tazobactam 3 175 125 100 .375 gm In Sodium Chloride 0.9% 100 ml @ 25 mls/hr IVPB Q8HR [facility] Rx# :[id number] Sodium Chloride 0.9% 1, 200 000 ml @ 20 mls/hr IV . Q24H [facility] Rx#:[id number] Intake, IV Titration 369.873 450 Amount Heparin Sod,Pork in 0.45% 241.934 250 NaCl 25,000 unit In 0.45 % NaCl 1 250ml.bag @ 10. 07 UNITS/KG/HR 10 mls/hr IV .Q24H [facility] Rx#: [id number] Magnesium Sulfate-D5w Pmx 100 1 gm In Dextrose/Water 1 100ml.bag @ 100 mls/hr IVPB ONCE ONE Rx#: [id number] Potassium Chloride 10 meq 100 In Water For Injection 1 100ml.bag @ 100 mls/hr IVPB Q1H [facility] Rx#: [id number] propofoL 1,000 mg In 127.939 Empty Bag 1 bag @ 15 MCG/ KG/MIN 8.577 mls/hr IV . [id number] [facility] Rx#:[id number] Tube Feeding 90 Other 30 Output: Urine 1595 515 250 Other: Voiding Method Indwelling Catheter Indwelling Catheter - Labs CBC & Chem 7: 04/16/23 04:27 04/16/23 04:27 Labs: Abnormal Lab Results - Last 24 Hours (Table) 04/15/23 04/15/23 04/15/23 Range/Units 04:03 11:14 12:33 RBC (3.80-5.40) m/uL Hgb (11.4-16.0) gm/dL APTT (22.0-30.0) sec ABG pH 7.47 H (7.35-7.45) ABG pCO2 58 H (35-45) mmHg ABG pO2 82 L (83-108) mmHg ABG HCO3 42 H* (21-25) mmol/L ABG Total CO2 44 H (19-24) mmol/L ABG O2 Saturation 97.1 H (94-97) % Chloride (98-107) mmol/L Carbon Dioxide (22-30) mmol/L BUN (7-17) mg/dL Glucose (74-99) mg/dL POC Glucose (mg/dL) 249 H (70-110) mg/dL Calcium (8.4-10.2) mg/dL Procalcitonin 0.74 H (0.02-0.09) ng/mL 04/15/23 04/16/23 04/16/23 Range/Units 18:03 04:27 04:27 RBC 3.75 L (3.80-5.40) m/uL Hgb 11.2 L (11.4-16.0) gm/dL APTT 50.1 H (22.0-30.0) sec ABG pH (7.35-7.45) ABG pCO2 (35-45) mmHg ABG pO2 (83-108) mmHg ABG HCO3 (21-25) mmol/L ABG Total CO2 (19-24) mmol/L ABG O2 Saturation (94-97) % Chloride (98-107) mmol/L Carbon Dioxide (22-30) mmol/L BUN (7-17) mg/dL Glucose (74-99) mg/dL POC Glucose (mg/dL) 181 H (70-110) mg/dL Calcium (8.4-10.2) mg/dL Procalcitonin (0.02-0.09) ng/mL 04/16/23 04/16/23 Range/Units 04:27 06:27 RBC (3.80-5.40) m/uL Hgb (11.4-16.0) gm/dL APTT (22.0-30.0) sec ABG pH (7.35-7.45) ABG pCO2 (35-45) mmHg ABG pO2 (83-108) mmHg ABG HCO3 (21-25) mmol/L ABG Total CO2 (19-24) mmol/L ABG O2 Saturation (94-97) % Chloride 97 L (98-107) mmol/L Carbon Dioxide 40 H (22-30) mmol/L BUN 23 H (7-17) mg/dL Glucose 115 H (74-99) mg/dL POC Glucose (mg/dL) 173 H (70-110) mg/dL Calcium 8.3 L (8.4-10.2) mg/dL Procalcitonin (0.02-0.09) ng/mL Microbiology - Last 24 Hours (Table) 04/10/23 13:53 Blood Culture - Final Blood 04/08/23 09:00 Acid Fast Bacilli Smear - Preliminary Pleural Fluid Acid Fast Bacilli Culture - Preliminary 04/14/23 10:12 Blood Culture - Preliminary Blood
[2023-04-16 15:46] VITALS: BP 165/101; PULSE 62; RESP 50
[2023-04-16] MEDS ORDERED: FUROSEMIDE 10 MG/ML 4 ML VIAL IV SCH (21:00)
--- NOTE | 2023-04-18 15:55 | P.DS ---
Providers Date of admission: 03/30/23 10:28 Expected date of discharge: 04/16/23 Attending physician: Tani Mendoza Consults: 03/29/23 13:34 Consult Physician Routine Consulting Provider: Michelle Lucia Consult Reason/Comments: dyspnea Do you want consulting provider notified?: Already Contacted Consult Physician Routine Consulting Provider: Beka June Consult Reason/Comments: dyspnea Do you want consulting provider notified?: Yes 04/07/23 15:59 Consult Physician Urgent Consulting Provider: Mike Crooks Consult Reason/Comments: atrial fibrillation Do you want consulting provider notified?: Already Contacted 04/14/23 13:06 Consult Physician Routine Consulting Provider: Kevon Stockton Consult Reason/Comments: Pneumonia, continued fever Do you want consulting provider notified?: Yes Primary care physician: [facility] Hospital Course: Preliminary cause of Pulmonary adenocarcinoma Final diagnosis Worsening shortness of breath secondary to persistent left lower lobe atelectasis/collapse with continued pleural effusions despite multiple bronchoscopies during admission Acute on chronic hypoxic respiratory failure, was on 2 L outpatient from most recent discharge status post lobectomy secondary to lung cancer. Patient required mechanical ventilation for respiratory distress during this hospitalization and was extubated Haemophilus influenza pneumonia. Recent BAL culture showed haemophilus. Klebsiella along with E. coli in the sputum and urine with concerns of hospital- acquired pneumonia Paroxysmal atrial fibrillation with rapid ventricular rate. Patient has new onset A-fib on 03/21/2023. Pulmonary adenocarcinoma with recent left upper lobe resection on 03/15/2023 Severe tracheal bronchomalacia COPD History of CVA with right-sided weakness Diabetes type 2, uncontrolled with hyperglycemia Hypertension Hyperlipidemia History of hepatitis B&C History of alcohol abuse and hides abuse Anxiety/depression and PTSD/bipolar. Currently everyday smoker, reports to quitting on last admission obesity with a bmi of 32.7 No code Discharge disposition Patient has . According to nursing documentation, time of was 1605 on 04/16/2023. Total time taken is greater than 35 minutes. Hospital course This is a 57-year-old female who was recently admitted in February and is status post left lobectomy for lung cancer and went home although having worsening shortness of breath and difficulty in breathing and was brought back to the hospital. Patient was admitted and has had significant prolonged hospitalizatio n with continued respiratory compromise. Patient has undergone multiple bronchoscopies during this hospitalization and also chest tube placement and most recently requiring mechanical ventilation due to respiratory distress status post bronchoscopy. Patient was successfully extubated and had further discuss CODE STATUS with family and patient wishes to be no code with no further intubation. Patient underwent repeat bronchoscopy reported continued significant shortness of breath and had discuss further with family which were requesting comfort measures. Comfort care order was placed by pulmonary manager equity after discussion with the family and patient at 1605 on 04/16/2023. Patient was placed on morphine drip. Please refer to other consultations documentation for further HPI. The impression and plan of care has been dictated by Rahel Crabtree, Nurse Practitioner as directed. Dr. Gay MD I have performed a history and examination and MDM of this patient, discussed the same with the dictator, and agree with the dictator's assessment and plan as written ,documented as a scribe. Based on total visit time, I have performed more than 50% of the visit. Patient Condition at Discharge: Poor Plan - Discharge Summary New Discharge Prescriptions: No Action Atorvastatin [Lipitor] 10 mg PO DAILY Furosemide [Lasix] 20 mg PO DAILY Fluticasone/Umeclidin/Vilanter [Trelegy Ellipta 100-62.5-25] 1 puff INHALATION RT-DAILY Amiodarone [Cordarone] 400 mg PO BID #120 tab Magnesium Oxide [Mag-Ox] 400 mg PO BID 5 Days #10 tab Thiamine [Vitamin B-1] 100 mg PO DAILY #30 tab Gabapentin 800 mg PO TID HYDROcodone/APAP 5-325MG [Mccleary 5-325] 1 tab PO Q6HR PRN PRN Reason: Pain INSULIN ASPART (NovoLOG) [NovoLOG (formulary)] 12 unit SQ DIRECTED Pioglitazone [Actos] 15 mg PO DAILY LORazepam [Ativan] 0.5 mg PO BID PRN PRN Reason: Anxiety Amoxic-Pot Clav 875-125Mg [Augmentin 875-125] 1 tab PO BID 30 Days #60 tab Docusate [Colace] 100 mg PO DAILY PRN 7 Days #20 cap PRN Reason: Constipation Folic Acid 1 mg PO DAILY #30 tab Nicotine 7Mg/24Hr Patch [Habitrol] 1 patch TRANSDERM DAILY #7 patch Pantoprazole [Protonix] 40 mg PO DAILY #30 tab INSULIN ASPART (NovoLOG) [NovoLOG (formulary)] See Protocol SQ DIRECTED Insulin Glargine,Hum.rec.anlog [Lantus Solostar Pen] 15 units SQ DAILY Dulaglutide [Trulicity] 1.5 mg SQ MO Discharge Medication List Atorvastatin [Lipitor] 10 mg PO DAILY 02/12/22 [History] Furosemide [Lasix] 20 mg PO DAILY 02/12/22 [History] Fluticasone/Umeclidin/Vilanter [Trelegy Ellipta 100-62.5-25] 1 puff INHALATION RT-DAILY 03/09/23 [History] LORazepam [Ativan] 0.5 mg PO BID PRN 03/09/23 [History] Amiodarone [Cordarone] 400 mg PO BID #120 tab 03/27/23 [Rx] Amoxic-Pot Clav 875-125Mg [Augmentin 875-125] 1 tab PO BID 30 Days #60 tab 03/27/23 [Rx] Docusate [Colace] 100 mg PO DAILY PRN 7 Days #20 cap 03/27/23 [Rx] Folic Acid 1 mg PO DAILY #30 tab 03/27/23 [Rx] Magnesium Oxide [Mag-Ox] 400 mg PO BID 5 Days #10 tab 03/27/23 [Rx] Nicotine 7Mg/24Hr Patch [Habitrol] 1 patch TRANSDERM DAILY #7 patch 03/27/23 [Rx] Pantoprazole [Protonix] 40 mg PO DAILY #30 tab 03/27/23 [Rx] Thiamine [Vitamin B-1] 100 mg PO DAILY #30 tab 03/27/23 [Rx] Dulaglutide [Trulicity] 1.5 mg SQ MO 03/29/23 [History] Gabapentin 800 mg PO TID 03/29/23 [History] HYDROcodone/APAP 5-325MG [Mccleary 5-325] 1 tab PO Q6HR PRN 03/29/23 [History] INSULIN ASPART (NovoLOG) [NovoLOG (formulary)] 12 unit SQ DIRECTED 03/29/23 [History] INSULIN ASPART (NovoLOG) [NovoLOG (formulary)] See Protocol SQ DIRECTED 03/29/23 [History] Insulin Glargine,Hum.rec.anlog [Lantus Solostar Pen] 15 units SQ DAILY 03/29/23 [History] Pioglitazone [Actos] 15 mg PO DAILY 03/29/23 [History] Follow up Appointment(s)/Referral(s): [facility] [NON-STAFF] - As Needed (*Call [employer] to deliver the oxygen concentrator to your house the day of discharge. ) [facility], [NON-STAFF] - 1-2 Days Zabrina Pardo MD [Primary Care Provider] - 1-2 days Activity/Diet/Wound Care/Special Instructions: NursingNeeds Home O2 testing done prior to D/C and documented in chart: R/A@ rest, R/A with ambulation, O2 applied with ambulation. Discharge Disposition: - Preliminary Cause of Preliminary Cause of : Pulmonary adenocarcinoma
== END 2023-04-16 19:33 | disposition expired | DRG 130 ==
LOC: EC 11:20 → 6NMEDSUR 13:34 → OBSVTOIN 03-30 10:28 → 3SCARD 04-04 13:16 → 2SICU 04-06 13:20
PROVIDERS: ADMIT Internal Medicine; ATTEND Internal Medicine
PROC: 0BC38ZZ Extirpation of Matter from Right Main Bronchus, Via Natural or Artificial Opening Endoscopic (ICD-10-PCS; 2023-04-01 07:30)
PROC: 0BC78ZZ Extirpation of Matter from Left Main Bronchus, Via Natural or Artificial Opening Endoscopic (ICD-10-PCS; 2023-04-02)
PROC: 0BC78ZZ Extirpation of Matter from Left Main Bronchus, Via Natural or Artificial Opening Endoscopic (ICD-10-PCS; 2023-04-03)
PROC: 0B9L8ZZ Drainage of Left Lung, Via Natural or Artificial Opening Endoscopic (ICD-10-PCS; 2023-04-03)
PROC: 0BC78ZZ Extirpation of Matter from Left Main Bronchus, Via Natural or Artificial Opening Endoscopic (ICD-10-PCS; 2023-04-04)
PROC: 5A09357 Assistance with Respiratory Ventilation, Less than 24 Consecutive Hours, Continuous Positive Airway Pressure (ICD-10-PCS; 2023-04-04)
PROC: 0BC78ZZ Extirpation of Matter from Left Main Bronchus, Via Natural or Artificial Opening Endoscopic (ICD-10-PCS; 2023-04-06)
PROC: 5A1955Z Respiratory Ventilation, Greater than 96 Consecutive Hours (ICD-10-PCS; principal; 2023-04-06 07:30)
PROC: 0BH17EZ Insertion of Endotracheal Airway into Trachea, Via Natural or Artificial Opening (ICD-10-PCS; principal; 2023-04-06 07:30)
PROC: 0B9C8ZZ Drainage of Right Upper Lung Lobe, Via Natural or Artificial Opening Endoscopic (ICD-10-PCS; 2023-04-08)
PROC: 0B9J8ZZ Drainage of Left Lower Lung Lobe, Via Natural or Artificial Opening Endoscopic (ICD-10-PCS; 2023-04-08)
PROC: 0B9F8ZZ Drainage of Right Lower Lung Lobe, Via Natural or Artificial Opening Endoscopic (ICD-10-PCS; 2023-04-08)
PROC: 0B9D8ZZ Drainage of Right Middle Lung Lobe, Via Natural or Artificial Opening Endoscopic (ICD-10-PCS; 2023-04-08)
PROC: 0W9B3ZZ Drainage of Left Pleural Cavity, Percutaneous Approach (ICD-10-PCS; 2023-04-08)
PROC: 0B9J8ZZ Drainage of Left Lower Lung Lobe, Via Natural or Artificial Opening Endoscopic (ICD-10-PCS; 2023-04-09)
PROC: 0B9C8ZZ Drainage of Right Upper Lung Lobe, Via Natural or Artificial Opening Endoscopic (ICD-10-PCS; 2023-04-09)
PROC: 0B9F8ZZ Drainage of Right Lower Lung Lobe, Via Natural or Artificial Opening Endoscopic (ICD-10-PCS; 2023-04-09)
PROC: 0B9D8ZZ Drainage of Right Middle Lung Lobe, Via Natural or Artificial Opening Endoscopic (ICD-10-PCS; 2023-04-09)
PROC: 05HC33Z Insertion of Infusion Device into Left Basilic Vein, Percutaneous Approach (ICD-10-PCS; 2023-04-12)
PROC: 0W9B30Z Drainage of Left Pleural Cavity with Drainage Device, Percutaneous Approach (ICD-10-PCS; 2023-04-14)
PROC: 0BC78ZZ Extirpation of Matter from Left Main Bronchus, Via Natural or Artificial Opening Endoscopic (ICD-10-PCS; 2023-04-14)
PROC: 0BJ08ZZ Inspection of Tracheobronchial Tree, Via Natural or Artificial Opening Endoscopic (ICD-10-PCS; 2023-04-15)
PROC: 0BC78ZZ Extirpation of Matter from Left Main Bronchus, Via Natural or Artificial Opening Endoscopic (ICD-10-PCS; 2023-04-16)
DX: J39.8 Other specified diseases of upper respiratory tract (principal); J14 Pneumonia due to Hemophilus influenzae; J15.5 Pneumonia due to Escherichia coli; C34.12 Malignant neoplasm of upper lobe, left bronchus or lung; F17.200 Nicotine dependence, unspecified, uncomplicated; S27.0XXA Traumatic pneumothorax, initial encounter; T17.508A Unspecified foreign body in bronchus causing other injury, initial encounter; I10 Essential (primary) hypertension; J90 Pleural effusion, not elsewhere classified; C77.1 Secondary and unspecified malignant neoplasm of intrathoracic lymph nodes; I69.351 Hemiplegia and hemiparesis following cerebral infarction affecting right dominant side; F31.30 Bipolar disorder, current episode depressed, mild or moderate severity, unspecified; T17.590A Other foreign object in bronchus causing asphyxiation, initial encounter; J44.0 Chronic obstructive pulmonary disease with (acute) lower respiratory infection; J94.8 Other specified pleural conditions; J91.8 Pleural effusion in other conditions classified elsewhere; J96.11 Chronic respiratory failure with hypoxia; E66.9 Obesity, unspecified; Z99.81 Dependence on supplemental oxygen; E11.65 Type 2 diabetes mellitus with hyperglycemia; Z51.5 Encounter for palliative care; Z66 Do not resuscitate; Z68.36 Body mass index [BMI] 36.0-36.9, adult; F10.21 Alcohol dependence, in remission; E87.3 Alkalosis; J44.1 Chronic obstructive pulmonary disease with (acute) exacerbation; J80 Acute respiratory distress syndrome; Y95 Nosocomial condition; N39.0 Urinary tract infection, site not specified; J98.11 Atelectasis; J98.19 Other pulmonary collapse; Z11.52 Encounter for screening for COVID-19; Z28.310 Unvaccinated for COVID-19; W44.9XXA Unspecified foreign body entering into or through a natural orifice, initial encounter; Z86.19 Personal history of other infectious and parasitic diseases; I48.0 Paroxysmal atrial fibrillation; E78.5 Hyperlipidemia, unspecified; E83.42 Hypomagnesemia; F43.10 Post-traumatic stress disorder, unspecified; Z53.9 Procedure and treatment not carried out, unspecified reason; Z79.4 Long term (current) use of insulin; Z79.84 Long term (current) use of oral hypoglycemic drugs; Z79.85 Long-term (current) use of injectable non-insulin antidiabetic drugs; Z79.899 Other long term (current) drug therapy; Z90.2 Acquired absence of lung [part of]; Z98.1 Arthrodesis status; Z81.1 Family history of alcohol abuse and dependence; Z88.5 Allergy status to narcotic agent; Z91.81 History of falling
CPT/HCPCS: 31624; 31635; 31645; 36410; 36415; 36600; 71045; 71046; 71270; 76604; 76937; 80048; 80053; 82805; 83036; 83605; 83735; 83880; 84132; 84145; 84484; 85025; 85027; 85610; 85730; 86140; 86850; 86900; 86901; 87040; 87070; 87075; 87077; 87086; 87102; 87116; 87186; 87205; 87206; 87496; 87498; 87502; 87529; 87634; 87635; 87636; 87798; 88108; 88300; 88305; 88341; 88342; 89050; 93005; 94002; 94003; 94640; 94660; 94667; 94668; 94760; 96374; 99285